=== PATIENT | female | born 1965 | race Caucasian/White ===

== ENCOUNTER 2022-12-12 11:00 | Outpatient (OUT) | payer MEDICARE, MEDICAID, SELFPAY ==
[2022-12-12 12:17] LABS: Chol HDL Ratio 3.3; Cholesterol 150 mg/dL (<=200); Estimated GFR (African America >60 (>=60); Estimated GFR (Non-African Ame >60 (>=60); Glucose 149 mg/dL (74-106); HDL Cholesterol 46 mg/dL (40-60); Thyroid Stimulating Hormone 1.138 uIU/mL (0.358-3.740); Triglycerides 284 mg/dL (<=150); VLDL CHOLESTEROL 56.8 mg/dL
[2022-12-13 04:12] LABS: Lithium (Eskalith(R)), Serum 0.6 mmol/L (0.5-1.2)
== END 2022-12-12 11:01 | disposition home or self-care (01) ==
LOC: LAB 11:05
PROVIDERS: PCP Family Medicine; Visit Provider Psychiatry & Neurology Psychiatry
DX: F31.9 Bipolar disorder, unspecified (principal)
CPT/HCPCS: 36415; 80061; 80178; 82565; 82947; 84443

== ENCOUNTER 2023-02-23 12:43 | Outpatient (OUT) | payer MEDICARE, MEDICAID, SELFPAY ==
--- NOTE | 2023-02-23 12:54 | MM_ITS ---
Patient: NAOMI MANLEY Exam Date: 02/23/2023 : 1965 Gender:F Ordering : DR Alexia Raya M.D. Admission #: [id number] Family : Order #: [id number] CLICK HERE TO VIEW EXAM RADIOLOGY REPORT PROCEDURE: MM TOMOSYNTHESIS DIAGNOSTIC LT, 02/23/2023, 12:59 US BREAST LT LIMITED, 02/23/2023, 13:09 COMPARISON: MG MAMM LT DIAG FU, 08/26/2022. INDICATIONS: Abnormal Mammogram R92.8 Calculator Name NCI Breast Cancer Risk Assessment Tool 5 Year Breast Cancer Risk 1.10% Lifetime Breast Cancer Risk 6.20% Personal Breast Cancer No Personal Ovarian Cancer No Treatments None Family Cancers Mother with stomach cancer at age 55. LOCATION: [facility] BREAST COMPOSITION: Heterogeneously dense,which may obscure small masses. FINDINGS: DIAGNOSTIC CATEGORY 5--HIGHLY SUGGESTIVE OF MALIGNANCY. HIGH PROBABILITY OF MALIGNANCY BASED ON THE FOLLOWING: Again demonstrated is a focal lobular mass measuring 0.9 x 0.5 cm in the lower inner quadrant of the right breast. This lesion appears more contracted than on the prior exam slight decrease in pleomorphic microcalcifications, possibly related to the contraction. Given the interval change in appearance malignancy should be excluded and a left breast stereotactic biopsy is recommended RECOMMENDATIONS: STEREOTACTIC BREAST BIOPSY: LEFT BREAST PLEASE NOTE: A NORMAL MAMMOGRAM DOES NOT EXCLUDE THE POSSIBILITY OF BREAST CANCER. A CLINICALLY SUSPICIOUS PALPABLE LUMP SHOULD BE BIOPSIED. Dictated by: Francis Singh MD on 02/23/2023 at 13:42 Approved by: Francis Singh MD on 02/23/2023 at 13:46
== END 2023-02-23 12:44 | disposition home or self-care (01) ==
LOC: MAMMO 12:44
PROVIDERS: PCP Family Medicine; Visit Provider Family Medicine
DX: N63.14 Unspecified lump in the right breast, lower inner quadrant (principal); R92.8 Other abnormal and inconclusive findings on diagnostic imaging of breast; Z80.0 Family history of malignant neoplasm of digestive organs
CPT/HCPCS: 76642; 77065; G0279

== ENCOUNTER 2023-03-20 12:27 | Day surgery (SDC) | payer MEDICARE, MEDICAID, SELFPAY ==
--- NOTE | 2023-03-20 12:39 | MM_ITS ---
Patient Name: NAOMI MANLEY MR#: [id number] : 1965 Exam Date: 03/20/2023 Ordering Doctor: DR Alexia Raya M.D. RADIOLOGY REPORT PROCEDURE: MM STEREOTACTIC LOC LT COMPARISON: MM TOMOSYNTHESIS DIAGNOSTIC LT, 02/23/2023. MG MAMM LT DIAG FU, 08/26/2022. MG MAMM SCREEN 3D SOLITARIO CAD, 08/01/2022. MG MAMM SOLITARIO DIAG W CAD, 09/26/2018. INDICATIONS: Macrocalcifications DESCRIPTION: Following informed consent, digital stereotactic mammographic views were obtained to localize the lesion. Multiple vacuum-assisted core biopsies were obtained. Specimen images were obtained to confirm proper sampling. The location of the biopsy was then marked as indicated below. FINDINGS: SPECIMEN #, LOCATION: 4 core samples, lower-inner quadrant / 6 o'clock left breast. SPECIMEN IMAGE: Calcifications within cores 1 and 4. BIOPSY NEEDLE: 10 gauge Revolve(r) vacuum core biopsy needle. MARKER(S) PLACED: A single metallic marker was placed in the appropriate targeted location. MEDICATION: Buffered 1% lidocaine superficial;1% lidocaine with epinephrine deep. COMPLICATIONS: None. PATHOLOGY / LAB: Pending. CONCLUSION: 1. Technically successful biopsy of the breast lesion. 2. Pathology results are pending. An addendum will be added when pathology results are final. Dictated by: Orlando Mccormack M.D. on 03/21/2023 at 07:45 Approved by: Orlando Mccormack M.D. on 03/21/2023 at 07:54
[2023-03-20 12:40] VITALS: BP 134/87; PULSE 82; O2SAT 95
--- NOTE | 2023-03-20 12:40 | MM_ITS ---
Patient Name: NAOMI MANLEY MR#: [id number] : 1965 Exam Date: 03/20/2023 Ordering Doctor: DR Alexia aRya M.D. This report includes an Addendum and supersedes previous reports for this exam. RADIOLOGY REPORT PROCEDURE: MM POST BIOPSY LT COMPARISON: MM STEREOTACTIC LOC LT, 03/20/2023. MM TOMOSYNTHESIS DIAGNOSTIC LT, 02/23/2023. MG MAMM LT DIAG FU, 08/26/2022. MG MAMM SCREEN 3D SOLITARIO CAD, 08/01/2022. INDICATIONS: Macrocalcifications BREAST COMPOSITION: Heterogeneously dense,which may obscure small masses. FINDINGS: BIOPSY MARKER: A metallic marker has been placed in the lower left breast approximately 6 o'clock position , but migrated cephalad during extraction, now positioned marked 12 o'clock. A calcification from the targeted location is still present which would aid in localization if needed. BREAST FINDINGS: Expected post biopsy findings. RECOMMENDATIONS: Dictated by: Orlando Mccormack M.D. on 03/20/2023 at 14:39 Approved by: Orlando Mccormack M.D. on 03/20/2023 at 14:41 ADDENDUM: FINDINGS: DIAGNOSTIC CATEGORY 6--KNOWN BIOPSY PROVEN MALIGNANCY: LEFT BREAST RECOMMENDATIONS: SURGICAL CONSULTATION. Final pathologic diagnosis: Invasive ductal carcinoma provisional grade 1; ductal carcinoma in situ; usual ductal hyperplasia with microcalcifications. Findings faxed to the office of Dr. Raya on March 24, 2023. Dictated by: Orlando Mccormack M.D. on 03/29/2023 at 14:12 Approved by: Orlando Mccormack M.D. on 03/29/2023 at 14:13
[2023-03-20] MEDS: LIDOCAINE HCL 10 ML, SODIUM BICARBONATE 1 MEQ INJ (13:20)
--- NOTE | 2023-03-20 14:48 | SUR.PREOP ---
03/03/23 Pt instructed on procedure, date,time, and prep.
== END 2023-03-20 14:00 | disposition home or self-care (01) ==
LOC: MAMMO 12:28
PROVIDERS: Radiology Diagnostic Radiology; PCP Family Medicine; Visit Provider Family Medicine
DX: C50.312 Malignant neoplasm of lower-inner quadrant of left female breast (principal); R92.0 Mammographic microcalcification found on diagnostic imaging of breast
CPT/HCPCS: 19081; 77065; 88305; 88342; 88360

== ENCOUNTER 2023-04-07 09:09 | Outpatient (OUT) | payer MEDICARE, MEDICAID, SELFPAY ==
[2023-04-07 09:48] LABS: BUN Creatinine Ratio 12.8; Calcium 9.4 mg/dL (8.5-10.1); Chloride 107 mmol/L (98-107); Chol HDL Ratio 2.8; Cholesterol 113 mg/dL (<=200); Estimated GFR (African America >60 (>=60); Estimated GFR (Non-African Ame >60 (>=60); Glucose 145 mg/dL (74-106); HDL Cholesterol 40 mg/dL (40-60); Sodium 144 mmol/L (136-145); Triglycerides 230 mg/dL (<=150)
[2023-04-07 10:48] LABS: Estimated Average Glucose 143 mg/dL; Glycohemoglobin A1C 6.6 % (4.5-6.2)
== END 2023-04-07 09:10 | disposition home or self-care (01) ==
LOC: LAB 09:11
PROVIDERS: PCP Family Medicine; Visit Provider Family Medicine
DX: R73.01 Impaired fasting glucose (principal)
CPT/HCPCS: 36415; 80048; 80061; 83036

== ENCOUNTER 2023-06-02 08:22 | Outpatient (OUT) | payer MEDICARE, MEDICAID, SELFPAY ==
--- OUTSIDE RECORDS SUMMARY | 2023-06-02 08:26 | XMS_ITS | CCD ---
Author Name Unknown Address [address] [facility] [address] [place] [address] Organization [facility] Care Team Providers Care Marine Operations Coordinator Name Role Phone MD Alexia Ayala Attending Provider [phone] [address]O ., DR FITCH Admitting Unavailabl e KARASIK ., DR FITCH Attending Unavailabl e KARASIK ., DR FITCH Consulting Unavailabl e AYALA, DR ALEXIA Bryant Primary Care Unavailable NEL, DR ORLANDO Frost Consulting Unavailable KARASIK ., DR FITCH Attending Unavailabl e KARSHEELAK ., DR FITCH Consulting Unavailabl e JAMIE, DR ALEXIA Bryant Primary Care Unavailable KARASIK ., DR FITCH Admitting Unavailabl e NEL, DR ORLANDO Frost Consulting Unavailable KARASIK ., DR FITCH Attending Unavailabl e KARASIK ., DR FITCH Consulting Unavailabl e AYALA, DR ALEXIA Bryant Primary Care Unavailable KARASIK ., DR FITCH Admitting Unavailabl e AYALA, DR ALEXIA Bryant Admitting Unavailable AYALA, DR ALEXIA Bryant Attending Unavailable AYALA, DR ALEXIA Bryant Consulting Unavailable JAMIE, DR ALEXIA Bryant Primary Care Unavailable ANIA BLANCA Attending Unavailable ANIA BLANCA Consulting Unavailable ANIA BLANCA Admitting Unavailable JAMIE, DR ALEXIA Bryant Primary Care Unavailable AYALA, DR ALEXIA Bryant Admitting Unavailable AYALA, DR ALEXIA Bryant Attending Unavailable AYALA, DR ALEXIA rByant Consulting Unavailable JAMIE, DR ALEXIA Bryant Primary Care Unavailable ANIA BLANCA Attending Unavailable ANIA BLANCA Consulting Unavailable ANIA BLANCA Admitting Unavailable JAMIE, DR ALEXIA Bryant Primary Care Unavailable Alexia Ayala Unavailable RAFAEL GARCÍA Attending Unavailable ALEXIA AYALA Unavailable RAFAEL GARCÍA Attending Unavailable DO Rafael García Attending Provider [phone] MD Alexia Ayala Primary Care Provider Alexia Ayala Admitting Unavailable Alexia Ayala Attending Unavailable Rafael García Attending Unavailable Rafael García Admitting Unavailable Alexia Ayala Primary Care Unavailable Gavin Plaza Attending Unavailab Gavin Leyva Admitting Unavailab Rafael Ibarra Attending Unavailable Rafael García Admitting Unavailable Alexia Ayala Primary Care Unavailable Allergies Allergy Classification Reported Allergen(s) Allergy Type Date of Onset Reaction(s) Facility (9 sources) cefdinir Drug Allergy Unknown [facility] Other (15 sources) Penicillin Drug Allergy halucination and swallowing dificulty [facility] Other (2 sources) Penicillins Drug allergy (disorder) 05-08-18 76 Swelling of Lip/Tongue/Thro at [facility] Repository (10 sources) Medicinal cephalosporin and acting as antibacterial agent (FN) Drug allergy Unknown [facility] Other (10 sources) Ceftin *CEPHALOSPORINS* Propensity to adverse reactions Unknown [facility] Other (1 source) Penicillins Drug allergy (disorder) 05-02-20 23 [facility] Repository (1 source) Unable to Assess Drug allergy (disorder) 04-03-20 18 [facility] Repository Medications Current Medications Medication Drug Class(es) Dates Sig (Normalized) Sig (Original) alendronic acid 70 mg oral tablet (1 source) Bisphosphonate Start: 05-02-2023 take 70 mg by mouth every week Alendronate Active 70 MG PO every week May 02, 2023 12:00am monday ascorbic acid 500 mg oral tablet (1 source) Vitamin C Start: 05-02-2023 take 1 tablet by mouth once daily Ascorbic Acid (Vitamin C) (Vitamin C) 500 mg Tablet Active 500 MG PO Daily May 02, 2023 12:00am atorvastatin 40 mg oral tablet (8 sources) HMG-CoA Reductase Inhibitor take 1 tablet by mouth every twenty-four hours Atorvastatin Calcium 40 MG 1 tablet Orally Once a day for 90 days Active take 1 tablet by missy th every twenty-four hours Atorvastatin Calcium 20 MG 1 tablet Oral ly Once a day for 90 days Active azithromycin 250 mg oral tablet (6 sources) Macrolide Antimicrobial Start: 03-10-2023 Azithromycin 250 MG as directed Orally 2 tabs po today, then 1 tab daily x 4 more days for 5 Mar, Active benzonatate 200 mg oral capsule (6 sources) Non-narcotic Antitussive Start: 03-10-2023 take 1 capsule by mouth every eight hours Benzonatate 200 MG 1 capsule Orally Three times a day for 10 day(s) Mar, Active busPIRone hydrochloride 5 mg oral tablet (10 sources) take 1 tablet by mouth every twenty-four hours busPIRone HCl 5 MG 1 tablet once a day Active levothyroxine sodium 0.075 mg oral tablet (16 sources) l-Thyroxine Start: 05-02-2023 take 75 ug by mouth once daily Levothyroxine Active 75 MCG PO Daily May 02, 2023 12:00am take 1 tablet by missy once daily in the morning Levothyroxine Sodium 75 MCG 1 tablet in the morning on an empty stomach Orally Once a day for 90 days Active take 1 tablet by missy once daily in the morning Levothyroxine Sodium 75 MCG 1 tablet in the morning on an empty stomach Orally Once a day for 90 days Active lithium carbonate 450 mg extended release oral tablet (16 sources) Start: 05-02-2023 take 450 mg by mouth once daily in the evening [place] Carbonate Active 450 MG PO Every evening May 02, 2023 12:00am take 1 capsule by mo [facility] once daily at bedtime [place] Carbonate 450 mg 1 capsule Orall y QHS Active [place] Carbonat e 450 mg 2 tablets QHS Active OLANZapine 10 mg oral tablet (20 sources) Atypical Antipsychotic Start: 05-02-2023 take 10 mg by mouth once daily in the evening Olanzapine Active 10 MG PO Every evening May 02, 2023 12:00am take 1 tablet by missy th once daily at bedtime OLANZapine 20 MG 1 tablet Orally QHS Act manish take 1 tablet by missy th every twenty-four hours OLANZapine 10 MG 1 tablet Orally Once a day Active omeprazole 40 mg delayed release oral capsule (16 sources) Proton Pump Inhibitor Start: 05-02-2023 take 40 mg by mouth once daily Omeprazole Active 40 MG PO Daily May 02, 2023 12:00am take 1 capsule by mo uth once daily in the morning Omeprazole 40 MG TAKE 1 CAPSULE BY MOUTH EVERY DAY IN THE MORNING for 90 Active QUEtiapine 200 mg oral tablet (16 sources) Atypical Antipsychotic Start: 05-02-2023 take 200 mg by mouth once daily in the evening Quetiapine Active 200 MG PO Every evening May 02, 2023 12:00am take 1 tablet by missy th every twenty-four hours SEROquel 100 MG 1 tablet at bedtime Orally Once a day Active take 1 tablet by missy th every twenty-four hours SEROquel 25 MG 1 tablet at bedtime Orally Once a day Active rosuvastatin calcium 20 mg oral tablet (8 sources) HMG-CoA Reductase Inhibitor Start: 05-02-2023 take 20 mg by mouth once daily in the evening Rosuvastatin Active 20 MG PO Every evening May 02, 2023 12:00am Start: 02-27-2023 take 1 tablet by missy th every twenty-four hours Crestor 20 MG 1 tablet Orally Once a day for 30 days Feb, Active traZODone hydrochloride 50 mg oral tablet (10 sources) Serotonin Reuptake Inhibitor take 1 tablet by mouth every twenty-four hours traZODone HCl 50 MG 1 tablet once a day Active Completed/Discontinued Medications Medication Drug Class(es) Dates Sig (Normalized) Sig (Original) fenofibrate 200 mg oral capsule (5 sources) Peroxisome Proliferator Receptor alpha Agonist take 1 capsule by mouth every twenty-four hours Fenofibrate 200 MG 1 tablet Orally Once a day Not-Taking Ketorolac (15 sources) Nonsteroidal Anti-inflammatory Drug, Cyclooxygenase Inhibitor Start: 09-04-2016 Toradol per 15 mg Aug, 60 mg levoFLOXacin 500 mg oral tablet (5 sources) Quinolone Antimicrobial take 1 tablet by mouth every twenty-four hours levoFLOXacin 500 MG 1 tablet Orally Once a day Not-Taking metroNIDAZOLE 500 mg oral tablet (5 sources) Nitroimidazole Antimicrobial Start: 06-21-2022 take 1 tablet by mouth every twelve hours metroNIDAZOLE 500 MG 1 tablet Orally Twice a day for 7 day(s) Jun, Not-Taking Problems Active Problems Problem Classification Problem Date Documented Date Episodic/Chronic Administrative/social admission (1 source) Person consulting for explanation of examination or test findings; Translations: [Person consulting for explanation of examination or test findings] Episodic Cancer of breast (5 sources) Infiltrating duct carcinoma of breast; Translations: [Malignant neoplasm of unspecified site of left female breast] Chronic Chronic kidney disease (15 sources) Chronic kidney disease stage 3; Translations: [Chronic kidney disease, stage 3 unspecified] Chronic Chronic obstructive pulmonary disease and bronchiectasis (2 sources) Bronchitis, not specified as acute or chronic Episodic Diabetes mellitus without complication (18 sources) Impaired fasting glycemia; Translations: [Impaired fasting glucose] Onset: 03-08-2018 Episodic Disorders of lipid metabolism (13 sources) Hyperlipidemia, unspecified; Translations: [Pure hyperglyceridemia] Onset: 03-07-2018 Chronic Esophageal disorders (1 source) Gastro-esophageal reflux disease without esophagitis; Translations: [Gastro-esophageal reflux disease without esophagitis] Chronic Genitourinary symptoms and ill-defined conditions (8 sources) Dysuria; Translations: [Finding of frequency of urination] Onset: 04-21-2022 Resolved: 06-04-2019 Episodic Immunizations and screening for infectious disease (2 sources) Encounter for screening for human papillomavirus (HPV); Translations: [Encounter for screening for infections with a predominantly sexual mode of transmission] Onset: 07-19-2022 Episodic Menopausal disorders (18 sources) Atrophy of vagina; Translations: [Postmenopausal atrophic vaginitis] Onset: 03-07-2018 Chronic Mood disorders (5 sources) Bipolar disorder, unspecified; Translations: [BIPOLAR DISORDER UNSPECIFIED] Onset: 03-07-2018 Chronic Other aftercare (14 sources) Long-term current use of drug therapy; Translations: [Other terminal press operator (current) drug therapy] Episodic Other aftercare (3 sources) Other group home (current) drug therapy; Translations: [OTH MOCK UP MAKER 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 THERAPY] Onset: 04-18-2022 Episodic Other bone disease and musculoskeletal deformities (1 source) Other specified disorders of bone density and structure, unspecified site; Translations: [OTH D/O BONE DEN STRUCT UNS SITE] Onset: 08-05-2022 Episodic Other bone disease and musculoskeletal deformities (1 source) Bone density finding; Translations: [Other specified disorders of bone density and structure, unspecified site] Episodic Other circulatory disease (1 source) Elevated blood-pressure reading without diagnosis of hypertension; Translations: [Elevated blood-pressure reading, without diagnosis of hypertension] Episodic Other connective tissue disease (14 sources) Pain of right upper arm; Translations: [Pain in right upper arm] Episodic Other connective tissue disease (2 sources) Pain in right upper arm; Translations: [Pain in right upper arm] Episodic Other connective tissue disease (1 source) Pain in limb; Translations: [Pain in left upper arm] Episodic Other female genital disorders (1 source) Other specified conditions associated with female genital organs and menstrual cycle; Translations: [OTH SPEC COND FE GEN ORG MENST CYCL] Onset: 07-19-2022 Episodic Other female genital disorders (1 source) Other specified noninflammatory disorders of vagina; Translations: [Other specified noninflammatory disorders of vagina] Episodic Other injuries and conditions due to external causes (1 source) History of falling; Translations: [History of falling] Episodic Other nutritional; endocrine; and metabolic disorders (15 sources) Body mass index 25-29 - overweight; Translations: [Body mass index (BMI) 28.0-28.9, adult] Episodic Other nutritional; endocrine; and metabolic disorders (1 source) Body mass index (BMI) 28.0-28.9, adult; Translations: [BMI 28.0-28.9,adult] Episodic Other screening for suspected conditions (not mental disorders or infectious disease) (17 sources) Other abnormal and inconclusive findings on diagnostic imaging of breast; Translations: [Encounter for screening mammogram for malignant neoplasm of breast] Onset: 07-18-2022 Resolved: 06-28-2019 Episodic Other upper respiratory infections (1 source) Chronic sinusitis; Translations: [Chronic sinusitis, unspecified] Chronic Other upper respiratory infections (2 sources) Acute maxillary sinusitis; Translations: [Acute recurrent maxillary sinusitis] Onset: 07-20-2018 Episodic Residual codes; unclassified (1 source) Family history of malignant neoplasm of digestive organs; Translations: [FAM HX MALIG NEOPLASM DIGESTIV ORGN] Onset: 09-01-2022 Episodic Residual codes; unclassified (1 source) Asymptomatic menopausal state; Translations: [ASYMPTOMATIC MENOPAUSAL STATE] Onset: 08-05-2022 Episodic Residual codes; unclassified (1 source) Immunization not carried out because of patient refusal; Translations: [Immunization not carried out because of patient refusal] Episodic Screening and history of mental health and substance abuse codes (1 source) Encounter for screening for depression; Translations: [Encounter for screening for depression] Episodic Thyroid disorders (18 sources) Hypothyroidism; Translations: [Hypothyroidism, unspecified] Chronic Unclassified (1 source) Unspecified lump in the left breast, lower inner quadrant; Translations: [Unspecified lump in the left breast, lower inner quadrant] Onset: 05-16-2023 Unclassified (1 source) Encounter for preprocedural laboratory examination; Translations: [Encounter for preprocedural laboratory examination] Onset: 05-02-2023 Urinary tract infections (1 source) Urinary tract infectious disease; Translations: [Urinary tract infection, site not specified] Episodic Past or Other Problems Problem Classification Problem Date Documented Da te Episodic/Chronic Abdominal pain (1 source) Right upper quadrant pain; Translations: [Right upper quadrant pain] Resolved: 06-28-2019 Episodic Bacterial infection; unspecified site (1 source) Other bacterial infections of unspecified site; Translations: [Other bacterial infections of unspecified site] Resolved: 06-04-2019 Episodic Inflammatory diseases of female pelvic organs (2 sources) Acute vaginitis; Translations: [Acute vaginitis] Onset: 06-18-2014 Resolved: 06-10-2016 Episodic Mycoses (2 sources) Candidiasis of skin and nail; Translations: [Candidiasis] Onset: 06-08-2014 Resolved: 06-10-2016 Episodic Nonmalignant breast conditions (4 sources) Mammographic calcification found on diagnostic imaging of breast; Translations: [Other specified disorders of breast] Onset: 08-05-2022 Resolved: 06-28-2019 Episodic Nonspecific chest pain (1 source) Chest pain, unspecified; Translations: [Chest pain, unspecified] Onset: 03-07-2018 Episodic Other gastrointestinal disorders (1 source) Abdominal distension (gaseous); Translations: [Abdominal distension (gaseous)] Resolved: 06-28-2019 Episodic Other lower respiratory disease (1 source) Shortness of breath; Translations: [Shortness of breath] Onset: 03-07-2018 Episodic Other non-traumatic joint disorders (1 source) Arthralgia of the lower leg; Translations: [Pain in unspecified knee] Onset: 03-07-2018 Episodic Other nutritional; endocrine; and metabolic disorders (1 source) Obesity, unspecified; Translations: [Obesity, unspecified] Resolved: 06-28-2019 Chronic Other nutritional; endocrine; and metabolic disorders (1 source) Body mass index 30+ - obesity; Translations: [Body mass index (BMI) 30.0-30.9, adult] Onset: 06-04-2019 Resolved: 06-28-2019 Chronic Residual codes; unclassified (1 source) Postmenopausal state; Translations: [Asymptomatic menopausal state] Onset: 06-04-2019 Episodic Spondylosis; intervertebral disc disorders; other back problems (1 source) Backache; Translations: [Dorsalgia, unspecified] Onset: 03-07-2018 Episodic Results Test Name Value Interpretation Reference Range Facility [facility] 05-16-2023 L - -------- Specimen: [id number] Received: 05/16/23 Status: WAN Gale Num: [id number] Spec Type: Surgical Subm Dr: Rafael García DO Tissues: A BREAST CORE NO CALCS (LT BREAST TISSUE) Procedures: YUDY/Charli Garcia/Jonh L4 -------- Age/ Patient Sex Location Account Attending Physician -------- Melony Manley 58/F DC [id number] Rafael García DO -------- SPEC NUM: [id number] RECD: 05/16/23 STATUS: WAN REAdia NUM: [id number] MANGO: 05/16/[address] [facility] [address]: Rafael García DO ENTERED: 05/16/23 DR: CARLTON TYPE: Surgical DEPT: S ORDERED: HE/2, Gross/Micro L4 ORDERED: HE/2, Gross/Micro L4 COMMENTS: @ Originally on account #[id number] Req #[id number] Pathological Diagnosis Left breast mass at 6:00 (2 cm from nipple), ultrasound?guided core biops: - Benign breast parenchyma featuring fibrocystic changes (florid, usual ductal hyperplasia) with variably fibrotic stroma. - Focal fibroadenomatoid change. - Small microcalcification located within a benign mammary duct. - No in situ or invasive carcinoma identified. - Note: Foci of atypical ductal hyperplasia or in situ lobular neoplasia are not identified. Clinical Information Left breast mass 6:00, 2 cm from nipple Gross Description Received in formalin labeled with the patient's name, date of and left breast is a 2.4 x 1.5 x 0.3 cm aggregate of cores of fibrofatty breast tissue. Entirely submitted in one cassette labeled A1. Time of excision: 10:30 AM 05/16/2023, time in formalin: 10:35 AM 05/16/2023, time out of -------- Specimen: [id number] Received: 05/16/23 Status: WAN Gale Num: [id number] Spec Type: Surgical Subm Dr: Rafael García DO Tissues: A BREAST CORE NO CALCS (LT BREAST TISSUE) Procedures: Charli GALLARDO/John L4 -------- Patient: Melony Manley [id number] (Continued) -------- Specimen: Received: 05/16/23 (Continued) Gross Description (Continued) Signed (signature on file) Francis Zapata MD 05/17/23 1009 -------- Specimen: S2 Received: 05/16/23 Status: WAN Gale Num: [id number] Spec Type: Surgical Subm Dr: Rafael García DO Tissues: A BREAST CORE NO CALCS (LT BREAST TISSUE) Procedures: Charli GALLARDO/Micro L4 -------- Patient: Melony Manley [id number] (Continued) -------- Specimen: [id number] Received: 05/16/23 (Continued) Gross Description (Continued) formalin: 6 PM 05/16/2023. Cold Ischemia and Fixation Time meets the requirements specified in the latest version of the ASCO/CAP guidelines: Yes. Cold Ischemic Time: 0.08 Formalin Fixation Time: 7.42 Microscopic Description Two H E slides reviewed. The microscopic examination confirms the diagnosis. CPT Codes 35644 -------- -------- Specimen: [id number] Received: 05/16/23 Status: WAN Beasley Num: [id number] Spec Type: Surgical Subm Dr: Rafael García DO Tissues: A BREAST CORE NO CALCS (LT BREAST TISSUE) Procedures: HE/2, Gross/Micro L4 -------- Patient: Melony Manley [id number] (Continued) -------- Signed (signature on file) Francis Zapata MD 05/17/23 1009 [facility] US breast LT limitedon 05-16 [place] [address] Mammography Report Signed with Ronaldo Patient: Melony Manley MR#: [id number] : 1965 Acct:[id number] Age/Sex: 58 / F ADM Date: 04/28/23 Loc: [place] Room: [place] [facility] [place]: Rafael García DO Copies to: DO Alexia Alexandre MD Ordering Provider: Rafael García DO Date of Service: 05/16/23 US/US breast LT limited: ABN. MAMM ([id number]) US/US extremity nonvascular: LEFT AXILLA ([id number]) US/US breast ndl core biopsy LT: ABN. MAMM ([id number]) MM/MM post biopsy LT w/CAD: POST U/S BX WITH CLIP ADDENDUM 1 Addendum for pathology: Ultrasound-guided biopsy 6:00 position 2 cm from the nipple: Focal fibroadenomatoid change. No in situ or invasive carcinoma identified. Finding is benign and concordant with imaging. Surgical/oncologic management of the patient's known cancer is recommended. Impression dictated by: Mateusz Jamison Jr., D.OBeatriz05/18/2023 9:20 AM Dictation Location: [place] [address] Addendum Dictated By: Mateusz Jamison Jr DO Addendum Signed By: 05/18/23919 Addendum Cosigned By: DD/ /31/918 TD/TT: 05/18/2303/31/920 ULTRASOUND GUIDED VACUUM-ASSISTED HOLOGIC ATEC SYSTEM CORE BIOPSIES OF THE LEFT BREAST: CLINICAL DATA: History of stereotactically biopsied breast cancer within the left breast. PROCEDURE: The patient was initially scheduled for a radioactive seed placement. The patient's outside images from [facility] were reviewed and discussed with the referring surgeon. After discussion with the referring surgeon, the radioactive seed placement was postponed and ultrasound-guided biopsy of a mass at the 6:00 position of the left breast approximately 2 cm from the nipple was performed. The patient and her daughter were informed of the change in procedure. The risks, benefits and alternatives to an ultrasound guided vacuum-assisted Hologic ATEC system core biopsy procedure were discussed with the patient and written informed consent was obtained. Ultrasonographic survey of the 6:00 position of the left breast 2 cm from the nipple was performed by geospatial technologist . The previously identified mass was localized with additional adjacent irregular masslike areas also noted. Additional scanning of the left axilla demonstrated no suspicious lymph nodes. The patient's overlying skin was anesthetized with 1% lidocaine. The deeper soft tissues up to and around the mass were anesthetized with lidocaine mixed with epinephrine. Following this, multiple core biopsies of the left breast mass were performed using a 12-gauge [employer] vacuum-assisted core biopsy needle under ultrasound guidance. Multiple core biopsy specimens were obtained. A metallic post biopsy marker was then placed. Post procedure mammograms were performed. The patient tolerated the procedure well with a small hematoma identified at the biopsy site POSTPROCEDURE MAMMOGRAMS: Craniocaudal, MLO and true lateral views of the left breast were performed using low dose digital technique. The postbiopsy marker is seen at the biopsy site without evidence of migration. MM/MM post biopsy LT w/CAD IMPRESSION: STATUS POST ULTRASOUND GUIDED VACUUM-ASSISTED CORE BIOPSIES OF THE LEFT BREAST. RESULT CODE: NL Impression dictated by: Mateusz Jamison Jr., D.OBeatriz05/16/2023 12:03 PM Dictation Location: [facility] Transcribed By: [facility] 05/16/23 1203 Dictated By: Mateusz Jamison Jr, DO 05/16/23 1046 Signed By: 05/16/23 1203 Normal [facility] Basic Metabolic Panelon 12-2 Anion gap [Moles/Vol] 13.2 mmol/L Normal 6.0-15.0 [facility] Comment on above: Performed By: #### C BC, BMP #### [address] Calcium [Mass/Vol] 9.8 mg/dL Normal 8.6-10.3 [facility] Comment on above: Result Comment: PERF ORMED BY: [place] [address] PATHOLOGIST MANAGER HOTEL HUI NORTH M.D. Performed By: #### C BC, BMP #### [address] Chloride [Moles/Vol] 107 mmol/L Normal 98-107 [facility] Comment on above: Performed By: #### C BC, BMP #### [place] [address] [place] CO2 [Moles/Vol] 26.0 mmol/L Normal 21.0-31.0 [facility] Comment on above: Performed By: #### C BC, BMP #### [place] [address] [place] Creatinine [Mass/Vol] 0.93 mg/dL Normal 0.60-1.20 [facility] Comment on above: Performed By: #### C BC, BMP #### [place] [id number] [place] GFR/1.73 sq M.predicted MDRD (S/P/Bld) [Vol rate/Area] mL/min/{1.73_m2} Normal [facility] Comment on above: Performed By: #### C BC, BMP #### [facility] [address] Glucose [Mass/Vol] 147 mg/dL High 70-100 [facility] Comment on above: Result Comment: [place] Glucose Reference Range is dependent on time and content of last meal. Glucose of more than 200 mg/dL in a nonstressed, ambulatory subject supports the diagnosis of Diabetes Mellitus. ADA recommended reference range Performed By: #### C BC, BMP #### [facility] [address] Potassium [Moles/Vol] 4.2 mmol/L Normal 3.5-5.1 [facility] Comment on above: Performed By: #### C BC, BMP #### [facility] [address] Sodium [Moles/Vol] 142 mmol/L Normal 136-145 [facility] Comment on above: Performed By: #### C BC, BMP #### [facility] [address] Urea nitrogen [Mass/Vol] 12 mg/dL Normal 7-25 [facility] Comment on above: Performed By: #### C BC, BMP #### [facility] [address] [place] [address] [place] Basophils Auto (Bld) [#/Vol] Ordered By: Rafael García on 05-02-2023 Basophils (Bld) [#/Vol] 0.0 10*3/uL 0.0-0.2 [facility] Basophils/100 WBC Auto (Bld) Ordered By: Rafael García on 05-02-2023 Basophils/100 WBC (Bld) 0.5 % . [facility] Calcium [Mass/volume] in Ser um or PlasmaOrdered By: Rafael García on 05-02-2023 Calcium [Mass/Vol] 9.8 mg/dL 8.6-10.3 [facility] Carbon dioxide, total [Moles /volume] in Serum or PlasmaOrdered By: Rafael García on 05-02-2023 CO2 [Moles/Vol] 26.0 mmol/L 21.0-31.0 [facility] Chloride [Moles/volume] in S cristi or PlasmaOrdered By: Rafael García on 05-02-2023 Chloride [Moles/Vol] 107 mmol/L 98-107 [facility] Complete Blood Count Auto Di ffon 05-02-2023 Basophils (Bld) [#/Vol] 0.0 10*3/uL Normal 0.0-0.2 [facility] Comment on above: Result Comment: PERF ORMED BY: [place] [address] PATHOLOGIST MANAGER HOTEL HUI NORTH M.D. Performed By: #### C BC, BMP #### [address] Basophils/100 WBC (Bld) 0.5 % Normal . [facility] Comment on above: Performed By: #### C BC, BMP #### [address] Eosinophils (Bld) [#/Vol] 0.0 10*3/uL Normal 0.0-0.45 [facility] Comment on above: Performed By: #### C BC, BMP #### [address] Eosinophils/100 WBC (Bld) 0.0 % Normal . [facility] Comment on above: Performed By: #### C BC, BMP #### [address] Erythrocyte distribution width (RBC) [Ratio] 14.0 % Normal 11.9-15.3 [facility] Comment on above: Performed By: #### C BC, BMP #### [address] Hematocrit (Bld) [Volume fraction] 38.9 % Normal 34.0-46.4 [facility] Comment on above: Performed By: #### C BC, BMP #### [facility] [address] Hemoglobin (Bld) [Mass/Vol] 12.9 g/dL Normal 11.8-15.4 [facility] Comment on above: Performed By: #### C BC, BMP #### [facility] [address] Lymphocytes (Bld) [#/Vol] 1.2 10*3/uL Normal 1.00-4.8 [facility] Comment on above: Performed By: #### C BC, BMP #### [facility] [address] Lymphocytes/100 WBC (Bld) 21.5 % Normal . [facility] Comment on above: Performed By: #### C BC, BMP #### [address] MCH (RBC) [Entitic mass] 28.4 pg Normal 24.7-34.3 [facility] Comment on above: Performed By: #### C BC, BMP #### [facility] [address] MCV (RBC) [Entitic vol] 85.8 fL Normal 80-100 [facility] Comment on above: Performed By: #### C BC, BMP #### [facility] [address] Mean Corpuscular HGB Conc 33.1 g/dL Normal 32.0-35.0 [facility] Comment on above: Performed By: #### C BC, BMP #### [facility] [address] [place] [address] [place] Monocytes (Bld) [#/Vol] 0.4 10*3/uL Normal 0.0-0.8 [facility] Comment on above: Performed By: #### C BC, BMP #### [facility] [address] [place] [address] [place] Monocytes/100 WBC (Bld) 6.5 % Normal . [facility] Comment on above: Performed By: #### C BC, BMP #### [facility] [address] [place] [address] [place] Neutrophils (Bld) [#/Vol] 4.0 10*3/uL Normal 1.8-7.7 [facility] Comment on above: Performed By: #### C BC, BMP #### [facility] [address] [place] [id number] [place] Neutrophils/100 WBC (Bld) 71.5 % Normal . [facility] Comment on above: Performed By: #### C BC, BMP #### [facility] [address] [place] [address] [place] NRBC% 0.0 /100{WBC} Normal 0-0.5 [facility] Comment on above: Performed By: #### C BC, BMP #### [facility] [address] [place] [address] [place] Platelet mean volume (Bld) [Entitic vol] 7.9 fL Normal 6.3-10.7 [facility] Comment on above: Performed By: #### C BC, BMP #### [facility] [address] [place] [address] [place] Platelets (Bld) [#/Vol] 146 10*3/uL Low 150-450 [facility] Comment on above: Performed By: #### C BC, BMP #### [facility] [address] [place] [address] [place] RBC (Bld) [#/Vol] 4.53 10*6/uL Normal 3.60-5.00 [facility] Comment on above: Performed By: #### C BC, BMP #### [facility] [address] [place] [address] [place] WBC (Bld) [#/Vol] 5.7 10*3/uL Normal 3.8-11.6 [facility] Comment on above: Performed By: #### C BC, BMP #### [facility] [address] [place] [address] [place] Creatinine [Mass/volume] in Serum or PlasmaOrdered By: Rafael García on 05-02-2023 Creatinine [Mass/Vol] 0.93 mg/dL 0.60-1.20 [facility] ECG 12 lead ECGon 05-02-[address]23 [address] [facility] Main [address] [address] Electrocardiograph Report Signed Patient: Melony Manley MR#: [id number] : 1965 Acct:[id number] Age/Sex: 58 / F ADM Date: 05/02/23 Loc: PS Room: Type: [facility] CLI Attending Dr: Rafael García DO Ordering Provider: Rafael García DO Date of Service: 05/02/23 ECG/ECG 12 lead ECG: surgery 05/16/2023 Copies to: Test Reason : Blood Pressure : / mmHG Vent. Rate : 075 BPM Atrial Rate : 075 BPM P-R Int : 126 ms QRS Dur : 088 ms QT Int : 402 ms P-R-T Axes : 006 022 036 degrees QTc Int : 448 ms Normal sinus rhythm Normal ECG No previous ECGs available Confirmed by MARYBETH VILLARREAL DO ([id number]) on 05/03/2023 9:46:45 AM Referred By: RAQUEL Electronically Signed By:MARYBETH VILLARREAL DO Transcribed By: MUS Signed By Marybeth Villarreal DO 05/03 0946 Normal [facility] Eosinophils Auto (Bld) [#/Vo l]Ordered By: Rafael García on 05-02-2023 Eosinophils (Bld) [#/Vol] 0.0 10*3/uL 0.0-0.45 [facility] Eosinophils/100 WBC Auto (Bl d)Ordered By: Rafael García on 05-02-2023 Eosinophils/100 WBC (Bld) 0.0 % . [facility] Erythrocyte distribution wid th Auto (RBC) [Ratio]Ordered By: Rafael García on 05-02-2023 Erythrocyte distribution width (RBC) [Ratio] 14.0 % 11.9-15.3 [facility] Glucose [Mass/volume] in Ser um or PlasmaOrdered By: Rafael García on 05-02-2023 Glucose [Mass/Vol] 147 mg/dL 70-100 [facility] Comment on above: ADA recommended refe rence rangeRandom Glucose Reference Range is dependent on time and content of last meal. Glucose of more than 200 mg/dL in a nonstressed, ambulatory subject supports the diagnosis of Diabetes Mellitus. Hematocrit Auto (Bld) [Volum e fraction]Ordered By: Rafael García on 05-02-2023 Hematocrit (Bld) [Volume fraction] 38.9 % 34.0-46.4 [facility] Hemoglobin [Mass/volume] in BloodOrdered By: Rafael García on 05-02-2023 Hemoglobin (Bld) [Mass/Vol] 12.9 g/dL 11.8-15.4 [facility] Leukocytes [#/volume] correc cori for nucleated erythrocytes in Blood by Automated counOrdered By: Rafael García on 05-02-2023 WBC corrected for nucl RBC Auto (Bld) [#/Vol] 5.7 10*3/uL 3.8-11.6 [facility] Lymphocytes Auto (Bld) [#/Vo l]Ordered By: Rafael García on 05-02-2023 Lymphocytes (Bld) [#/Vol] 1.2 10*3/uL 1.00-4.8 [facility] Lymphocytes/100 WBC Auto (Bl d)Ordered By: Rafael García on 05-02-2023 Lymphocytes/100 WBC (Bld) 21.5 % . [facility] MCH Auto (RBC) [Entitic mass ]Ordered By: Rafael García on 05-02-2023 MCH (RBC) [Entitic mass] 28.4 pg 24.7-34.3 [facility] MCHC Auto (RBC) [Mass/Vol]Or dered By: Rafael García on 05-02-2023 MCHC (RBC) [Mass/Vol] 33.1 g/dL 32.0-35.0 [facility] MCV Auto (RBC) [Entitic vol] Ordered By: Rafael García on 05-02-2023 MCV (RBC) [Entitic vol] 85.8 fL 80-100 [facility] Monocytes Auto (Bld) [#/Vol] Ordered By: Rafael García on 05-02-2023 Monocytes (Bld) [#/Vol] 0.4 10*3/uL 0.0-0.8 [facility] Monocytes/100 WBC Auto (Bld) Ordered By: Rafael García on 05-02-2023 Monocytes/100 WBC (Bld) 6.5 % . [facility] Neutrophils Auto (Bld) [#/Vo l]Ordered By: Rafael García on 05-02-2023 Neutrophils (Bld) [#/Vol] 4.0 10*3/uL 1.8-7.7 [facility] Neutrophils/100 WBC Auto (Bl d)Ordered By: Rafael García on 05-02-2023 Neutrophils/100 WBC (Bld) 71.5 % . [facility] No Panel InformationOrdered By: Rafael García on 05-02-2023 Estimated GFR (CKD-EPI) > 60.0 mL/Min [facility] Creatinine Clearance (Chem N/A [facility] Nucleated erythrocytes [Pres ence] in Blood by Automated countOrdered By: Rafael García on 05-02-2023 Nucleated RBC Auto Ql (Bld) 0.0 /100{WBC} 0-0.5 [facility] Platelet mean volume Auto (B ld) [Entitic vol]Ordered By: Rafael García on 05-02-2023 Platelet mean volume (Bld) [Entitic vol] 7.9 fL 6.3-10.7 [facility] Platelets Auto (Bld) [#/Vol] Ordered By: Rafael García on 05-02-2023 Platelets (Bld) [#/Vol] 146 10*3/uL 150-450 [facility] Potassium [Moles/volume] in Serum or PlasmaOrdered By: Rafael García on 05-02-2023 Potassium [Moles/Vol] 4.2 mmol/L 3.5-5.1 [facility] RBC Auto (Bld) [#/Vol]Ordere d By: Rafael García on 05-02-2023 RBC (Bld) [#/Vol] 4.53 10*6/uL 3.60-5.00 [facility] Serum or plasma anion gap de terminationOrdered By: Rafael García on 05-02-2023 Anion gap [Moles/Vol] 13.2 mmol/L 6.0-15.0 [facility] Sodium [Moles/volume] in Ser um or PlasmaOrdered By: Rafael García on 05-02-2023 Sodium [Moles/Vol] 142 mmol/L 136-145 [facility] Urea nitrogen [Mass/volume] in Serum or PlasmaOrdered By: Rafael García on 05-02-2023 Urea nitrogen [Mass/Vol] 12 mg/dL 7-25 [facility] WBC Auto (Bld) [#/Vol]Ordere d By: Rafael García on 05-02-2023 WBC (Bld) [#/Vol] 5.7 10*3/uL 3.8-11.6 [facility] MG MAMM LT DIAG FUon 08-26- 023 MG MAMM LT DIAG FU Patient: MELONY MANLEY Exam Date: 08/26/2022 : 1965 Gender:F Ordering : DR LITTLE STAFFORD . Admission #: [id number] Family : Order #: [id number] CLICK HERE TO VIEW EXAM RADIOLOGY REPORT PROCEDURE: MAMMOGRAM LEFT DIAGNOSTIC DIGITAL FOLLOW UP, 08/26/2022, 13:41 ULTRASOUND BREAST LEFT LIMITED, 08/26/2022, 14:06 COMPARISON: MG MAMM SCREEN 3D SOLITARIO CAD, 08/01/2022. INDICATIONS: Abnormal findings on diagnostic imaging of breast Calculator Name NCI Breast Cancer Risk Assessment Tool 5 Year Breast Cancer Risk 1.10% Lifetime Breast Cancer Risk 6.30% Personal Breast Cancer No Personal Ovarian Cancer No Treatments None Family Cancers Mother with stomach cancer at age 55. LOCATION: [facility] BREAST COMPOSITION: Heterogeneously dense,which may obscure small masses. FINDINGS: DIAGNOSTIC CATEGORY 4--SUSPICIOUS FOR MALIGNANCY. FINDING DOES NOT EXHIBIT CLASSIC FINDINGS OF BREAST CANCER: LEFT BREAST: Spot magnification views demonstrate suspicious cluster of calcifications and likely soft tissue nodule within the posterior lower breast approximately 6 o'clock. Ultrasound evaluation demonstrates questionable 7 x 6 x 3 mm lesion at the 6 o'clock position, 2.5 cm from the nipple. Stereotactic guided biopsy is recommended since the calcifications are better seen via mammography. The findings, recommendations, and alternatives were discussed with the patient. The patient does not wish to undergo biopsy at this time but prefers six-month follow-up mammography. RECOMMENDATIONS: STEREOTACTIC BREAST BIOPSY: LEFT BREAST PLEASE NOTE: A NORMAL MAMMOGRAM DOES NOT EXCLUDE THE POSSIBILITY OF BREAST CANCER. A CLINICALLY SUSPICIOUS PALPABLE LUMP SHOULD BE BIOPSIED. Dictated by: Orlando Mccormack M.D. on 08/26/2022 at 14:23 Approved by: Orlando Mccormack M.D. on 08/26/2022 at 14:39 Normal [facility] US BREAST LEFT LIMITEDon US BREAST LEFT LIMITED Patient: MELONY MANLEY Exam Date: 08/26/2022 : 1965 Gender:F Ordering : DR LITTLE STAFFORD . Admission #: [id number] Family : Order #: [id number] CLICK HERE TO VIEW EXAM RADIOLOGY REPORT PROCEDURE: MAMMOGRAM LEFT DIAGNOSTIC DIGITAL FOLLOW UP, 08/26/2022, 13:41 ULTRASOUND BREAST LEFT LIMITED, 08/26/2022, 14:06 COMPARISON: MG MAMM SCREEN 3D SOLITARIO CAD, 08/01/2022. INDICATIONS: Abnormal findings on diagnostic imaging of breast Calculator Name NCI Breast Cancer Risk Assessment Tool 5 Year Breast Cancer Risk 1.10% Lifetime Breast Cancer Risk 6.30% Personal Breast Cancer No Personal Ovarian Cancer No Treatments None Family Cancers Mother with stomach cancer at age 55. LOCATION: [facility] BREAST COMPOSITION: Heterogeneously dense,which may obscure small masses. FINDINGS: DIAGNOSTIC CATEGORY 4--SUSPICIOUS FOR MALIGNANCY. FINDING DOES NOT EXHIBIT CLASSIC FINDINGS OF BREAST CANCER: LEFT BREAST: Spot magnification views demonstrate suspicious cluster of calcifications and likely soft tissue nodule within the posterior lower breast approximately 6 o'clock. Ultrasound evaluation demonstrates questionable 7 x 6 x 3 mm lesion at the 6 o'clock position, 2.5 cm from the nipple. Stereotactic guided biopsy is recommended since the calcifications are better seen via mammography. The findings, recommendations, and alternatives were discussed with the patient. The patient does not wish to undergo biopsy at this time but prefers six-month follow-up mammography. RECOMMENDATIONS: STEREOTACTIC BREAST BIOPSY: LEFT BREAST PLEASE NOTE: A NORMAL MAMMOGRAM DOES NOT EXCLUDE THE POSSIBILITY OF BREAST CANCER. A CLINICALLY SUSPICIOUS PALPABLE LUMP SHOULD BE BIOPSIED. Dictated by: Orlando Mccormack M.D. on 08/26/2022 at 14:23 Approved by: Orlando Mccormack M.D. on 08/26/2022 at 14:39 Normal [facility] MG MAMM SCREEN 3D SOLITARIO CADon 08-01-2022 MG MAMM SCREEN 3D SOLITARIO CAD Patient: MELONY MANLEY Exam Date: 08/01/2022 : 1965 Gender:F Ordering : DR LITTLE STAFFORD . Admission #: [id number] Family : Order #: [id number] CLICK HERE TO VIEW EXAM RADIOLOGY REPORT PROCEDURE: MAMMOGRAM SCREENING 3D BILATERAL CAD COMPARISON: MG MAMM SOLITARIO DIAG W CAD, 09/26/2018. MG MAMM SOLITARIO DIAG FU, 01/31/2018. MG MAMM SCREEN SOLITARIO W CAD, 05/16/2016. INDICATIONS: Screening mammography Calculator Name NCI Breast Cancer Risk Assessment Tool 5 Year Breast Cancer Risk 1.10% Lifetime Breast Cancer Risk 6.30% Personal Breast Cancer No Personal Ovarian Cancer No Treatments None Family Cancers Mother with stomach cancer at age 55. LOCATION: [facility] BREAST COMPOSITION: Heterogeneously dense,which may obscure small masses. FINDINGS: DIAGNOSTIC CATEGORY 0--INCOMPLETE: NEED ADDITIONAL IMAGING EVALUATION. RIGHT BREAST: No significant suspicious finding. No significant change has occurred. LEFT BREAST: Small cluster of punctate calcifications within posterior upper inner quadrant. Spot magnification views and ultrasound evaluation recommended. RECOMMENDATIONS: ADDITIONAL MAMMOGRAPHIC VIEWS REQUIRED: LEFT BREAST - LEFT CRANIOCAUDAL SPOT MAGNIFICATION VIEW - LEFT OBLIQUE SPOT MAGNIFICATION VIEW - ULTRASOUND: LEFT BREAST PLEASE NOTE: A NORMAL MAMMOGRAM DOES NOT EXCLUDE THE POSSIBILITY OF BREAST CANCER. A CLINICALLY SUSPICIOUS PALPABLE LUMP SHOULD BE BIOPSIED. Dictated by: Orlando Mccormack M.D. on 08/01/2022 at 12:20 Approved by: Orlando Mccormack M.D. on 08/01/2022 at 12:26 Normal [facility] XR DEXA BONE DENSITYon 08-01 XR DEXA BONE DENSITY EXAMINATION: XR DEX A BONE DENSITY, 08/01/2022 10:48 AM EDT HISTORY: Menopause present COMPARISON: DEXA bone densitometry 06/25/2019 TECHNIQUE: Dual-energy X-ray absorptiometry (DEXA) bone density study performed for the axial skeleton. FINDINGS: FOREARM ANALYSIS: Average bone mineral density is 0.671 g/cm2. T-score (standard deviation relative to young adult mean): -0.6 . -1.5% change since prior study. HIP ANALYSIS: Lowest bone mineral density is within the right femoral neck, 0.819 g/cm2. T-score (standard deviation relative to young adult mean): -1.6 . +0.7% change since prior study. IMPRESSION: World Nitin Organization Classification: Osteopenia - Moderate Fracture Risk Electronically authenticated by: ORLANDO MCCORMACK Date: 2022-08-01 11:39 Normal [facility] PAP ACOG PANEL 2: 30 to 65on 07-26-2022 . . Normal [facility] Comment on above: Result Comment: Perf ormed at: WB Performed By: #### [id number] #### [facility] [address] [place] [address] Dr. Devon Gillette Age Gdln ACOG Testing 30-65 Normal [facility] Comment on above: Performed By: #### [id number] #### [facility] [address] [place] [address] [address] Devon Gillette DIAGNOSIS: Comment Normal [facility] Comment on above: Result Comment: NEGA TIVE FOR INTRAEPITHELIAL LESION OR MALIGNANCY. Performed at: WB Performed By: #### [id number] #### [facility] [address] [address] [address] Devon Gillette HPV Aptima Negative Normal Negative [facility] Comment on above: Result Comment: This nucleic acid amplification test detects fourteen high-risk HPV types (16,18,31,33,35,39,45,51,52,56,58,59,66,68) without differentiation. Performed at: =G Performed By: #### [id number] #### [facility] [address] [place] [address] Dr. Devon Gillette HPV Genotype Reflex Comment Normal [facility] Comment on above: Result Comment: Crit eria not met, HPV Genotype not performed. Performed at: WB Performed By: #### [id number] #### [facility] [address] [place] [address] Dr. Devon Gillette Methodology: Comment Normal [facility] Comment on above: Result Comment: This liquid based ThinPrep(R) pap test was screened with the use of an image guided system. Performed at: WB Performed By: #### [id number] #### [facility] [address] [place] [address] Dr. Devon Gillette Note: Comment Normal [facility] Comment on above: Result Comment: The Pap smear is a screening test designed to aid in the detection of premalignant and malignant conditions of the uterine cervix. It is not a diagnostic procedure and should not be used as the sole means of detecting cervical cancer. Both false-positive and false-negative reports do occur. . Performed at: WB Performed By: #### [id number] #### [facility] [address] [place] [address] Dr. Devon Gillette Performed by: Comment Normal [facility] Comment on above: Result Comment: Anjelica Girard, Track Worker (ASCP) Performed at: WB Performed By: #### [id number] #### [facility] [address] [place] [address] Dr. Devon Gillette Specimen adequacy: Comment Normal [facility] Comment on above: Result Comment: Sati sfactory for evaluation. Endocervical and/or squamous metaplastic cells (endocervical component) are present. Performed at: WB Performed By: #### [id number] #### [facility] [address] [place] [address] Dr. Devon Gillette VAGINITIS/VAGINOSIS DNA PROB Jim 07-20-2022 Anni species Negative Normal Negative [facility] Comment on above: Performed By: #### V AGINT #### [facility] [address] [place] [address] Dr. Devon Gillette Gardnerella vaginalis Positive Abnormal Negative [facility] Comment on above: Performed By: #### V AGINT #### [facility] [address] [place] [address] Dr. Devon Gillette Trichomonas vaginalis Negative Normal Negative [facility] Comment on above: Performed By: #### V AGINT #### [facility] [address] [place] [address] Dr. Devon Gillette CULTURE URINEon 04-21-2022 CULTURE URINE Culture Observations : LIGHT GROWTH OF MIXED GENITAL LAZARO. NO POTENTIAL PATHOGENS SEEN. Normal [facility] Comment on above: Performed By: #### G FRANKIE, TSH, LIPID, CREA #### [facility] [address] [place] [address] Dr. Devon Gillette LITHIUMon 04-15-2022 [place] (Eskalith(R)), Serum 0.6 mmol/L Normal 0.5-1.2 [facility] Comment on above: Result Comment: A co ncentration of 0.5-0.8 mmol/L is advised for long-term use; concentrations of up to 1.2 mmol/L may be necessary during acute treatment. Detection Limit = 0.1 <0.1 indicates None Detected Performed By: #### G FRANKIE, TSH, LIPID, CREA #### [facility] [address] [place] [address] Dr. Devon Gillette CREATININEon 04-14-2022 Creatinine [Mass/Vol] 0.89 mg/dL Normal 0.55-1.02 [facility] Comment on above: Performed By: #### G FRANKIE, TSH, LIPID, CREA #### [facility] [address] [place] [address] Dr. Devon Gillette EGFR-AF TUNISIAN >60 Normal >=60 [facility] Comment on above: Performed By: #### G FARNKIE, TSH, LIPID, CREA #### [facility] [address] [place] [address] Dr. Devon Gillette EGFR-NON AF TUNISIAN >60 Normal >=60 [facility] Comment on above: Performed By: #### G FRANKIE, TSH, LIPID, CREA #### [facility] [address] [address] [address] Devno Gillette GLUCOSE BLOODon 04-14-2022 Glucose [Mass/Vol] 118 mg/dL Critically high 74-106 T [facility] Comment on above: Performed By: #### G FRANKIE, TSH, LIPID, CREA #### [facility] [address] [address] [address] Devon Gillette LIPID PROFILEon 04-14-2022 CHOL-HDL RATIO NORM SEE BELOW Normal [facility] Comment on above: Result Comment: 3.3 - 4.4 LOW RISK 4.4 - 7.1 AVERAGE RISK 7.1 - 11.0 MODERATE RISK >11.0 HIGH RISK Performed By: #### G FRANKIE, TSH, LIPID, CREA #### [facility] [address] [address] [address] Devon Gillette Cholesterol [Mass/Vol] 128 mg/dL Normal <=200 [facility] Comment on above: Performed By: #### G FRANKIE, TSH, LIPID, CREA #### [facility] [address] [address] [address] Devon Gillette Cholesterol in HDL [Mass/Vol] 47 mg/dL Normal 40-60 [facility] Comment on above: Performed By: #### G FRANKIE, TSH, LIPID, CREA #### [facility] [address] [address] [address] Devon Gillette Cholesterol in LDL [Mass/Vol] 34.6 mg/dL Normal [facility] Comment on above: Performed By: #### G FRANKIE, TSH, LIPID, CREA #### [facility] [address] [address] [address] Devon Gillette Cholesterol.total/Choles terol in HDL [Mass ratio] 2.7 {ratio} Normal [facility] Comment on above: Performed By: #### G FRANKIE, TSH, LIPID, CREA #### [facility] [address] [address] [address] Devon Gillette HDL NORMAL > or = 60 mg/dl - LO W CARDIOVASCULAR RISK <40 mg/dl - HIGH CARDIOVASCULAR RISK Normal [facility] Comment on above: Performed By: #### G FRANKIE, TSH, LIPID, CREA #### [facility] [address] [address] [address] Devon Gillette LDL CALC NORMAL SEE BELOW Normal [facility] Comment on above: Result Comment: <100 mg/dl OPTIMAL 100 - 129 mg/dl NEAR OR ABOVE OPTIMAL 130 - 159 mg/dl BORDERLINE HIGH 160 - 189 mg/dl HIGH >190 mg/dl VERY HIGH Performed By: #### G FRANKIE, TSH, LIPID, CREA #### [facility] [address] [address] [address] Devon Gillette Triglyceride [Mass/Vol] 232 mg/dL Critically high <=150 [facility] Comment on above: Performed By: #### G FRANKIE, TSH, LIPID, CREA #### [facility] [address] [address] [address] Devon Gillette VLDL CALC 46.4 mg/dL Normal [facility] Comment on above: Performed By: #### G FRANKIE, TSH, LIPID, CREA #### [facility] [address] [address] [address] Devon Gillette TSHon 04-14-2022 TSH 0.375 uIU/mL Normal 0.358-3.740 [facility] Comment on above: Performed By: #### G FRANKIE, TSH, LIPID, CREA #### [facility] [address] [place] [address] Dr. Devon Gillette CULTURE URINEon 03-30-2022 CULTURE URINE Isolate 1 Proteus mirabilis 15,000 cfu/mL of ORGANISM 1 Proteus mirabilis ANTIBIOTIC M.I.C RX STATUS Ampicillin <=2 S F Ampicillin/Sulbactam <=2 S F Piperacillin/Tazobact am <=4 S F Cefazolin <=4 S F Ceftazidime <=1 S F Ceftriaxone <=1 S F Ertapenem <=0.5 S F Imipenem 2 S F Amikacin <=2 S F Gentamicin <=1 S F Tobramycin <=1 S F Ciprofloxacin <=0.25 S F Levofloxacin <=0.12 S F Nitrofurantoin 128 R F Trimethoprim/Sulfamet hoxazole <=20 S F Normal [facility] Comment on above: Performed By: #### U RCX #### [facility] [address] [address] [address] Devon Gillette LITHIUMon 12-28-2021 [place] (Eskalith(R)), Serum 0.7 mmol/L Normal 0.5-1.2 [facility] Comment on above: Result Comment: Plas ma concentration of 0.5 - 0.8 mmol/L are advised for long-term use; concentrations of up to 1.2 mmol/L may be necessary during acute treatment. Detection Limit = 0.1 <0.1 indicates None Detected Performed By: #### G FRANKIE, TSH, LIPID, CREA #### [facility] [address] [address] [address] Devon Gillette CREATININEon 12-27-2021 Creatinine [Mass/Vol] 1.10 mg/dL Critically high 0.55-1.02 [facility] Comment on above: Performed By: #### G FRANKIE, TSH, LIPID, CREA #### [facility] [address] [address] [address] Devon Gillette EGFR-AF TUNISIAN >60 Normal >=60 [facility] Comment on above: Performed By: #### G FRANKIE, TSH, LIPID, CREA #### [facility] [address] [address] [address] Devon Gillette EGFR-NON AF TUNISIAN 51 mL/min/1.73m2 Critically low >=60 [facility] Comment on above: Performed By: #### G FRANKIE, TSH, LIPID, CREA #### [facility] [address] [address] [address] Devon Gillette DIRECT LDLon 12-27-2021 Cholesterol in LDL [Mass/Vol] 133 mg/dL Normal [facility] Comment on above: Performed By: #### G FRANKIE, TSH, LIPID, CREA #### [facility] [address] [address] [address] Devon Gillette DLDL NORMAL SEE BELOW Normal [facility] Comment on above: Result Comment: <100 mg/dl OPTIMAL 100 - 129 mg/dl NEAR OR ABOVE OPTIMAL 130 - 159 mg/dl BORDERLINE HIGH 160 - 189 mg/dl HIGH >190 mg/dl VERY HIGH Performed By: #### G FRANKIE, TSH, LIPID, CREA #### [facility] [address] [address] [address] Devon Gillette GLUCOSE BLOODon 12-27-2021 Glucose [Mass/Vol] 151 mg/dL Critically high 74-106 [facility] Comment on above: Performed By: #### G FRANKIE, TSH, LIPID, CREA #### [facility] [address] [address] [address] Devon Gillette LIPID PROFILEon 12-27-2021 CHOL-HDL RATIO NORM SEE BELOW Normal [facility] Comment on above: Result Comment: 3.3 - 4.4 LOW RISK 4.4 - 7.1 AVERAGE RISK 7.1 - 11.0 MODERATE RISK >11.0 HIGH RISK Performed By: #### G FRANKIE, TSH, LIPID, CREA #### [facility] [address] [address] [address] Devon Gillette Cholesterol [Mass/Vol] 244 mg/dL Critically high <=200 [facility] Comment on above: Performed By: #### G FRANKIE, TSH, LIPID, CREA #### [facility] [address] [address] [address] Devon Gillette Cholesterol in HDL [Mass/Vol] 33 mg/dL Critically low 40-60 [facility] Comment on above: Performed By: #### G FRANKIE, TSH, LIPID, CREA #### [facility] [address] [address] [address] Devon Gillette Cholesterol.total/Choles terol in HDL [Mass ratio] 7.4 {ratio} Normal [facility] Comment on above: Performed By: #### G FRANKIE, TSH, LIPID, CREA #### [facility] [address] [address] [address] Devon Gillette HDL NORMAL > or = 60 mg/dl - LO W CARDIOVASCULAR RISK <40 mg/dl - HIGH CARDIOVASCULAR RISK Normal [facility] Comment on above: Performed By: #### G FRANKIE, TSH, LIPID, CREA #### [facility] [address] [place], [place] [address] Dr. Devon Gillette Triglyceride [Mass/Vol] 431 mg/dL Critically high <=150 [facility] Comment on above: Performed By: #### G FRANKIE, TSH, LIPID, CREA #### [facility] [address] [place], [place] [address] Dr. Devon Gillette Vital Signs Date Time Vital Sign Value Performing Clinician Facility 05-16-2023 10:00-0500 Body temperature 98.2 [degF] MD Alexia Ayala Work Phone: [facility] 05-16-2023 10:00-0500 Diastolic blood pressure 78 mm[Hg] MD Alexia Ayala Work Phone: [facility] 05-16-2023 10:00-0500 Heart rate 87 /min MD Alexia Ayala Work Phone: [facility] 05-16-2023 10:00-0500 Respiratory rate 18 /min MD Alexia Ayala Work Phone: [facility] 05-16-2023 10:00-0500 SaO2% (BldA) [Mass fraction] 99 % MD Alexia Ayala Work Phone: [facility] 05-16-2023 10:00-0500 Systolic blood pressure 136 mm[Hg] MD Alexia Ayala Work Phone: [facility] 05-02-2023 16:16-0500 Body height 162.56 cm MD Alexia Ayala Work Phone: [facility] 05-02-2023 16:16-0500 Body weight 75.7 kg MD Alexia Ayala Work Phone: [facility] 03-27-2023 14:00-0500 Body height 162.56 cm Alexia Ayala Other [facility] Other 03-27-2023 14:00-0500 Body mass index (BMI) [Ratio] 28.49 kg/m2 Alexia Ayala Other [facility] Other 03-27-2023 14:00-0500 Body weight 75.3 kg Alexia Ayala Other [facility] Other 03-27-2023 14:00-0500 Diastolic blood pressure 84 mm[Hg] Alexia Ayala Other [facility] Other 03-27-2023 14:00-0500 Systolic blood pressure 136 mm[Hg] Alexia Ayala Other [facility] Other 02-06-2023 10:30-0400 Body height 162.56 cm Alexia Ayala Other [facility] Other 02-06-2023 10:30-0400 Body mass index (BMI) [Ratio] 29.01 kg/m2 Alexia Ayala Other [facility] Other 02-06-2023 10:30-0400 Body weight 76.66 kg Alexia Ayala Other [facility] Other 02-06-2023 10:30-0400 Diastolic blood pressure 84 mm[Hg] Alexia Ayala Other [facility] Other 02-06-2023 10:30-0400 Systolic blood pressure 144 mm[Hg] Alexia Ayala Other [facility] Other 12-28-2022 09:30-0400 Body height 162.56 cm Alexia Ayala Other [facility] Other 12-28-2022 09:30-0400 Body mass index (BMI) [Ratio] 28.15 kg/m2 Alexia Ayala Other [facility] Other 12-28-2022 09:30-0400 Body weight 74.39 kg Alexia Ayala Other [facility] Other 12-28-2022 09:30-0400 Diastolic blood pressure 78 mm[Hg] Alexia Ayala Other [facility] Other 12-28-2022 09:30-0400 SaO2% (BldA) [Mass fraction] 96 % Alexia Ayala Other [facility] Other 12-28-2022 09:30-0400 Systolic blood pressure 128 mm[Hg] Alexia Ayala Other [facility] Other 09-13-2022 15:00-0400 Body height 162.56 cm Alexia Ayala Other [facility] Other 09-13-2022 15:00-0400 Body mass index (BMI) [Ratio] 28.32 kg/m2 Alexia Ayala Other [facility] Other 09-13-2022 15:00-0400 Body weight 74.84 kg Alexia Ayala Other [facility] Other 09-13-2022 15:00-0400 Diastolic blood pressure 74 mm[Hg] Alexia Ayala Other [facility] Other 09-13-2022 15:00-0400 SaO2% (BldA) [Mass fraction] 98 % Alexia Ayala Other [facility] Other 09-13-2022 15:00-0400 Systolic blood pressure 142 mm[Hg] Alexia Ayala Other [facility] Other 07-06-2022 10:00-0500 Body height 162.56 cm Alexia Ayala Other [facility] Other 07-06-2022 10:00-0500 Body mass index (BMI) [Ratio] 28.66 kg/m2 Alexia Ayala Other [facility] Other 07-06-2022 10:00-0500 Body weight 75.75 kg Alexia Ayala Other [facility] Other 07-06-2022 10:00-0500 Diastolic blood pressure 62 mm[Hg] Alexia Ayala Other [facility] Other 07-06-2022 10:00-0500 SaO2% (BldA) [Mass fraction] 98 % Alexia Ayala Other [facility] Other 07-06-2022 10:00-0500 Systolic blood pressure 110 mm[Hg] Alexia Ayala Other [facility] Other 06-14-2022 11:00-0500 Body height 162.56 cm Alexia Ayala Other [facility] Other 06-14-2022 11:00-0500 Body mass index (BMI) [Ratio] 29.01 kg/m2 Alexia Ayala Other [facility] Other 06-14-2022 11:00-0500 Body weight 76.66 kg Alexia Ayala Other [facility] Other 06-14-2022 11:00-0500 Diastolic blood pressure 76 mm[Hg] Alexia Ayala Other [facility] Other 06-14-2022 11:00-0500 SaO2% (BldA) [Mass fraction] 98 % Alexia Ayala Other [facility] Other 06-14-2022 11:00-0500 Systolic blood pressure 138 mm[Hg] Alexia Ayala Other [facility] Other Encounters Encounter Date Encounter Type Care Provider Facility Start: 05-16-2023 End: 05-17-2023 ambulatory Rafael Itzkowitz Facility:[facility] Start: 05-16-2023 End: 05-16-2023 Admission to same day surgery center MD Alexia Ayala Work Phone: [facility] Work Phone: Start: 05-16-2023 End: 05-16-2023 ambulatory MD Alexia Ayala Work Phone: [facility] Work Phone: Start: 05-02-2023 End: 05-02-2023 ambulatory Rafael Itzkowitz Facility:[facility] Start: 05-02-2023 End: 05-02-2023 Patient encounter procedure MD Alexia Ayala Work Phone: [facility] Work Phone: Start: 04-28-2023 End: 04-28-2023 ambulatory RAFAEL H ITZKOWITZ Not Available Start: 04-10-2023 End: 04-10-2023 ambulatory Alexia Ayala Other [facility] Other Start: 04-10-2023 Telephone encounter Alexia Ayala [facility] Start: 04-05-2023 End: 04-05-2023 ambulatory RAFAEL H ITZKOWITZ Not Available Start: 03-27-2023 End: 03-27-2023 ambulatory Alexia Ayala Other [facility] Other Start: 03-27-2023 Patient encounter procedure Alexia Ayala [facility] Start: 03-27-2023 Telephone encounter Alexia Ayala [facility] Start: 03-21-2023 End: 03-21-2023 ambulatory Alexia Ayala Other [facility] Other Start: 03-21-2023 Telephone encounter Alexia Ayala [facility] Start: 03-10-2023 (Televisit) Televisit Alexia Mena [facility] Start: 03-10-2023 End: 03-10-2023 ambulatory Alexia Ayala Other [facility] Other Start: 03-06-2023 End: 03-06-2023 ambulatory Alexia Ayala Other [facility] Other Start: 03-06-2023 Telephone encounter Alexia Ayala [facility] Start: 02-28-2023 ambulatory Gavin Mena acility:[facility] Start: 02-06-2023 End: 02-06-2023 ambulatory Alexia Ayala Other [facility] Other Start: 02-06-2023 Office outpatient vi sit 15 minutes Alexia Ayala [facility] Start: 02-06-2023 Telephone encounter Alexia Ayala [facility] Start: 12-28-2022 End: 12-28-2022 ambulatory Alexia Ayala Other [facility] Other Start: 12-28-2022 Office outpatient vi sit 15 minutes Alexia Ayala [facility] Start: 09-13-2022 End: 09-13-2022 ambulatory Alexia Ayala Other [facility] Other Start: 09-13-2022 Office outpatient vi sit 15 minutes Alexia Ayala [facility] Start: 08-26-2022 End: 08-27-[address] LITTLE STAFFORD . Facility:[facility] Start: 08-01-2022 End: 08-02-[address] LITTLE STAFFORD . Facility:[facility] Start: 07-18-2022 End: 07-18-[address] LITTLE STAFFORD . Facility:[facility] Start: 07-12-2022 End: 07-12-2022 ambulatory Alexia Ayala Other [facility] Other Start: 07-12-2022 Telephone encounter Alexia Ayala [facility] Start: 07-06-2022 End: 07-06-2022 ambulatory Alexia Ayala Other [facility] Other Start: 07-06-2022 Office outpatient vi sit 15 minutes Alexia Ayala [facility] Start: 06-21-2022 End: 06-21-2022 ambulatory Alexia Ayala Other [facility] Other Start: 06-21-2022 Telephone encounter Alexia Ayala [facility] Start: 06-14-2022 End: 06-14-2022 ambulatory Alexia Ayala Facility:[facility] Start: 06-14-2022 Office outpatient vi sit 15 minutes Alexia Ayala [facility] Start: 06-14-2022 End: 06-14-2022 ambulatory MD Alexia Ayala Work Phone: [facility] Work Phone: Start: 06-14-2022 End: 06-14-2022 Departed Referred MD Alexia Ayala Work Phone: [facility] [place] Work Phone: Start: 04-25-2022 Adult health examination Radha Ayala Other [facility] Other Start: 04-25-2022 Gynecological examination normal Alexia Ayala Other [facility] Other Start: 04-21-2022 End: 04-21-[address] ALEXIA AYALA Facility:[facility] Start: 04-14-2022 End: 04-15-2022 ambulatory ANIA BLANCA Facility:[facility] Start: 03-28-2022 End: 03-28-[address] ALEXIA AYALA Facility:[facility] Start: 12-27-2021 End: 12-28-2021 ambulatory ANIA BLANCA Facility:[facility] Procedures Date Procedure Procedure Detail Performing Clinician Start: 05-16-2023 Core needle biopsy o f breast using ultrasound guidance MD Alexia Ayala Work Phone: Start: 05-16-2023 Mammography of left breast MD Alexia Ayala Work Phone: Start: 05-16-2023 Ultrasonography of l eft breast MD Alexia Ayala Work Phone: Start: 05-16-2023 Ultrasonography of limb MD Alexia Ayala Work Phone: End: 06-28-2019 Viral screening Alexia Ayala Other Plan of Treatment Date Care Activity Detail Author Start: 05-16-2023 Lumpectomy of left breast OR Breast Bx, Lumpectomy, Mass Excision (Left) [facility] Start: 06-14-2022 [facility] Atopobium vaginae DN A [Presence] in Vaginal fluid by HIMANSHU with probe detection [facility] Bacterial vaginosis associated bacterium 2 DNA [Presence] in Vaginal fluid by HIMANSHU with probe detection [facility] Megasphaera sp type 1 DNA [Presence] in Vaginal fluid by HIMANSHU with probe detection [facility] Immunizations Immunization Date Immunization Notes Care Provider Fa [facility] 02-28-2022 COVID-19 mRNA Bivale nt Booster (Pfizer) MD Alexia Ayala Work Phone: [facility] 04-20-2021 COVID-19 mRNA, Comirnaty (Pfizer) MD Alexia Ayala Work Phone: [facility] 08-27-2020 COVID-19 mRNA, Comirnaty (Pfizer) MD Alexia Ayala Work Phone: [facility] 08-07-2020 COVID-19 mRNA Comirnaty (Pfizer) MD Alexia Ayala Work Phone: [facility] Payers Date Payer Category Payer Self-pay [id number] 1965 Unknown [id number] 2.16.84 [id number] 1965 Unknown [id number] 2.16.84 [id number] 1965 Unknown [id number] 2.16.84 [id number] 1965 Unknown [id number] 2.16.84 [id number] 1964 Unknown [id number] 2.16.84 [id number] 1964 Unknown [id number] 2.16.84 [id number] 1964 Unknown [id number] 2.16.84 [id number] 1964 Unknown [id number] 2.16.840 .[id number] 1965 Unknown [id number] 2.16.840 .[id number] 1960 Medicaid [id number] 1960 Medicare [id number]. [id number] Medicare Medicare [id number] Unknown [id number] 2.16.8 [id number] Unknown [id number] 2.16.8 [id number] Unknown [id number] 2.16.8 [id number] Unknown [id number] .16.8 [id number] Social History Date Type Detail Facility Tobacco smoking status MIIS Unknown if ever smoked [facility] Work Phone: Start: 1965 Sex Assigned At Female F [facility] Sex Assigned At Sex Assigned At Bir th [facility] Other Start: 05-02-2023 Tobacco smoking status NHIS Ex-smoker (finding) [facility] Clinical Notes 06-14-2022 to 03-27-2023 Note Date & Type Note Facility 03-27-2023 Evaluation note Encounter Date Diagnosis Assessment Notes Mar, Invasive ductal carcinoma of left breast (ICD-10 - C50.912) Reviewed results. Grade 1. D/w daughter on speaker - phone. Appt made w Dr. García on 04/05 at 2pm. Path report and mamm reports sent to their office. [facility] Other 11-14-2023 Evaluation note* Encounter Date Diagnosis Assessment Notes Treatment Notes Treatment Clinical Notes Mar, Elevated triglycerides with high cholesterol (ICD-10 - E78.2) [facility] Other 11-03-2023 Evaluation note* Encounter Date Diagnosis Assessment Notes Treatment Notes Treatment Clinical Notes Mar, Bronchitis (ICD-10 - J40) Take medications as directed. Use saline nasal spray prior to presciption nasal spray. Take medications as directed, and complete all doses of medication even if you start to feel better. Patient advised to follow up with PCP if symptoms persist or worsen. Patient verbalized understanding and agreement with treatment plan. [facility] Other 10-02-2023 Evaluation note* Encounter Date Diagnosis Assessment Notes Treatment Notes Treatment Clinical Notes Feb, Abnormal mammogram of left breast (ICD-10 - R92.8) [facility] Other 10-02-2023 Evaluation note* Encounter Date Diagnosis Assessment Notes Treatment Notes Treatment Clinical Notes Feb, Elevated triglycerides with high cholesterol (ICD-10 - E78.2) Called pharmacy. They do not carry the med she is interested in the [place]. Changed rx and sent to [facility]. [facility] Other 08-23-2023 Evaluation note* Encounter Date Diagnosis Assessment Notes Treatment Notes Treatment Clinical Notes Dec, Elevated fasting glucose (ICD-10 - R73.01) Pt states Dr. Blanca is helping her wean the zyprexa. Will recheck labs listed below and return for OV in Apr. Dec, Hypothyroidism (ICD-10 - E03.9) Labs reviewed and normal. Continue present medication [facility] Other 05-09-2023 Evaluation note* Encounter Date Diagnosis Assessment Notes Treatment Notes Treatment Clinical Notes September, Skin candidiasis (ICD-10 - B37.2) Very mild erythema and discoloration. Recommend OTC Gold Valadez Powder. Call if not improving. [facility] Other 03-01-2023 Evaluation note* Encounter Date Diagnosis Assessment Notes Treatment Notes Treatment Clinical Notes Jul, Hypothyroidism (ICD-10 - E03.9) stable - chronic - continue present dose. Jul, Vaginal atrophy (ICD-10 - N95.2) Melony denies any further pain, vaginal bleeding or discomfort. Will call later today for her well woman exam with Dr. Stafford. Verbally consented to share records w him from our last office visit. [facility] Other 02-07-2023 Evaluation note* Encounter Date Diagnosis Assessment Notes Treatment Notes Treatment Clinical Notes Jun, Acute vaginitis (ICD-10 - N76.0) New problem - sent culture for yeast/BV/trich. will call in 1-2 days when results are back. [facility] Other Evaluation noteNo assessment information available [facility] Work Phone: Evaluation noteNo InformationNort [email or web address] Other History general Narrative - Reported* Type Description Date Medical History Gastroesophageal ref lux disease, esophagitis presence not specified Medical History Bipolar 1 disorder, depressed Medical History Acquired hypothyroidism Medical History Hypercholesterolemia Medical History BMI 28.0-28.9,adult Medical History Hypothyroidism Medical History Chronic kidney disease, stage 3 unspecified Medical History Elevated fasting glucose Medical History Pain of right upper arm Medical History [place] use Medical History Vaginal atrophy Surgical History tubal ligation 2016 Surgical History wisdom teeth Surgical History CATARACT EXTRACTION- LEFT 01/25 17 Surgical History DETACHED RETINE REPAIR (LEFT) 0 06/2021 Surgical History CATARACT EXTRACTION- RIGHT 02/06 017 Hospitalization History SEE SURGICAL HX [facility] Other Advance Directives No Advanced Directives Records Found Advance Directive Response Recorded Date/ Time Advance Directives No January 3:39pm Summary Purpose Family History No Family History Records Found Relationship Condition Age at Onset Recorded Date/T everardo Not Specified Malignant neoplasm of stomach Unknown Reason for Referral Reason I called and made ap pt - 04/05 2pm. We are faxing path result. Diagnosis 1 Invasive ductal carc inoma of left breast (C50.912) Referral Organization [facility] Referring Provider First Name Alexia Referring Provider Last Name Jamie Referring Provider Specialty Family [facility] cine Referred Organization [facility] Referred Provider Rafael García Referred Address ,[place], [place],[address] Referred Provider Specialty Surgery Referral Priority Routine Chief Complaint and Reason for Visit Chief Complaint Left Breast Cancer Left Breast Cancer Additional Source Comments Care Teams (unrecognized sec tion and content) Team Status: Inactive Member Role Status Dates Alexia Ayala MD Attending Provider Active Team Status: Active Member Role Status Dates Alexia Ayala MD Primary Care Provider Active Team Status: Inactive Member Role Status Dates Rafael García DO Attending Provider Active Alexia Ayala MD Primary Care Provider Active Goals (unrecognized section and content) Goals may be documented in a n alternate sectionNo InformationNo InformationNo InformationNo InformationNo InformationNo InformationNo InformationNo InformationNo InformationNo InformationNo InformationNo InformationNo InformationNo InformationNo InformationGoals may be documented in an alternate section REASON FOR VISIT (unrecogniz ed section and content) possible yeast infectionmess ageFOLLOW UPprescription refillRashlab work discussionnew med ?Medication DiscussionmessageFLU [phone] resultBREAST BIOPSY RESULTSlabsFLU [phone] INFORMATION SOURCE (unrecogn ized section and content) DATE CREATED AUTHOR 09/02/2022 [facility] DATE CREATED AUTHOR AUTHOR'S ORGANIZ ATION 04/29/2023 [facility] EPIC DATE CREATED AUTHOR AUTHOR'S ORGANIZ ATION 05/26/2023 [facility] FOR RECORDS PERTAINING TO PATIENTS WHO ARE OR HAVE BEEN ENROLLED IN A CHEMICAL DEPENDENCY/SUBSTANCEABUSE PROGRAM, SOME INFORMATION MAY BE OMITTED. This clinical summary was aggregated from multiple sources. Caution should be exercised in using it in the provision of clinical care. This summary normalizes information from multiple sources, and as a consequence, information in this document may materially change the coding, format and clinical context of patient data. In addition, data may be omitted in some cases. CLINICAL DECISIONS SHOULD BE BASED ON THE PRIMARY CLINICAL RECORDS. [facility] PUD [facility]. provides no warranty or guarantee of the accuracy or completeness of information in this document.
[2023-06-02 11:39] LABS: Thyroid Stimulating Hormone 1.669 uIU/mL (0.358-3.740)
[2023-06-03 09:09] LABS: Lithium (Eskalith(R)), Serum 0.9 mmol/L (0.5-1.2)
== END 2023-06-02 08:23 | disposition home or self-care (01) ==
LOC: LAB 08:23
PROVIDERS: PCP Family Medicine; Visit Provider Psychiatry & Neurology Psychiatry
DX: F31.9 Bipolar disorder, unspecified (principal); Z79.899 Other long term (current) drug therapy
CPT/HCPCS: 36415; 80178; 84443

== ENCOUNTER 2023-07-24 20:30 | Outpatient (REF) | payer MEDICARE, MEDICAID, SELFPAY ==
--- OUTSIDE RECORDS SUMMARY | 2023-07-24 20:37 | XMS_ITS | CCD ---
Author Name Unknown Address [address] [facility] [address] [place] [address] Organization [facility] Care Team Providers Care Medication Manager Name Role Phone MD Alexia Ayala Attending Provider [phone] BENITO ., DR FITCH Admitting Unavailabl e KARASIK ., DR FITCH Attending Unavailabl e KARASIK ., DR FITCH Consulting Unavailabl e AYALA, DR ALEXIA Bryant Primary Care Unavailable ZIMICHELLE, DR ORLANDO Frost Consulting Unavailable KARASIK ., [...] JAMIE, DR ALEXIA Bryant Primary Care Unavailable JAMIE, DR ALEXIA Bryant Admitting Unavailable AYALA, DR ALEXIA Bryant Attending Unavailable AYALA, DR ALEXIA Bryant Consulting Unavailable JAMIE, DR ALEXIA Bryant Primary Care Unavailable ANIA BLANCA Attending Unavailable ANIA BLANCA Consulting Unavailable ANIA BLANCA Admitting Unavailable JAMIE, DR ALEXIA Bryant Primary Care Unavailable Alexia Ayala Unavailable DO Rafael García Attending Provider MD Alexia Ayala Primary Care Provider ADAMA GARCÍA Referring Unavailable ALEXIA AYALA Primary Care Unavailable Itzkowitz, Rafael Admitting Unavailable Itzkowitz, Rafael Attending Unavailable Alexia Ayala Primary Care Unavailable Itzkowitz, Rafael Admitting Unavailable Itzkowitz, Rafael Attending Unavailable Alexia Ayala Primary Care Unavailable Mela, Gavin Admitting Unavailab le Gavin Plaza Attending Unavailab le Itzkowitz, Rafael Attending Unavailable Itzkowitz, Rafael Admitting Unavailable Alexia Ayala Primary Care Unavailable Itzkowitz, Rafael Admitting Unavailable Itzkowitz, Rafael Attending Unavailable Alexia Ayala Primary Care Unavailable JORDYN POTRILLO Attending Unavailable ITZKOWITZ, RAFAEL H Attending Unavailable ITZKOWITZ, RAFAEL H Attending Unavailable ALEXIA AYALA Referring Unavailable ITZKOWITZ, RAFAEL H Attending Unavailable FELICIA JOSEPH Attending Unavailable Allergies Allergy Classification Reported Allergen(s) Allergy Type Date of Onset Reaction(s) Facility (9 sources) cefdinir Drug Allergy Unknown [facility] Other (15 sources) Penicillin Drug Allergy halucination and swallowing dificulty [facility] Other (2 sources) Penicillins Drug allergy (disorder) 05-08-18 76 Swelling of Lip/Tongue/Thro at [facility] Repository (10 sources) Medicinal cephalosporin and acting as antibacterial agent (FN) Drug allergy Unknown [facility] Other (10 sources) Ceftin *CEPHALOSPORINS* Propensity to adverse reactions Unknown [facility] Other (1 source) Cephalosporins (Antibiotic) Drug allergy (disorder) 07-19-19 [facility] Repository (1 source) Penicillins Drug allergy (disorder) 07-19-19 [facility] Repository Medications Current Medications Medication Drug [...] 1 tablet by missy th once daily in the morning Levothyroxine Sodium 75 MCG 1 tablet in the morning on an empty stomach Orally Once a day for 90 days Active take 1 tablet by missy th once daily in the morning Levothyroxine Sodium 75 MCG 1 tablet in the morning on an empty stomach Orally Once a day for 90 days Active lithium carbonate 450 mg extended release oral tablet (16 sources) Start: 05-02-2023 take 450 mg by mouth once daily in the evening [place] Carbonate Active 450 MG PO Every evening May 02, 2023 12:00am take 1 capsule by mo deh once daily at bedtime [place] Carbonate 450 mg 1 capsule Orall y QHS Active [place] Carbonat e 450 mg 2 tablets QHS [...] 2023 12:00am take 1 capsule by mo [facility] once daily in the morning Omeprazole 40 [...] or test findings] Episodic Cancer of breast (6 sources) Infiltrating duct carcinoma of breast; Translations: [Malignant neoplasm of unspecified site of left female breast] Onset: 06-29-2023 Chronic Chronic kidney disease (15 sources) Chronic [...] current use of drug therapy; Translations: [Other correction (current) drug therapy] Episodic Other aftercare (3 sources) Other exterminator helper termite (current) drug therapy; Translations: [OTH NURSING HOME 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 THERAPY] Onset: 04-18-2022 Episodic Other bone disease and musculoskeletal deformities (1 source) Other specified disorders of bone density and structure, unspecified site; Translations: [OT D/O BONE DEN STRUCT UNS SITE] Onset: [...] conditions (not mental disorders or infectious disease) (19 sources) Other abnormal and inconclusive findings on [...] carried out because of patient refusal] Episodic Residual codes; unclassified (1 source) Estrogen receptor positive status [ER+]; Translations: [Estrogen receptor positive status (ER+)] Onset: 06-29-2023 Episodic Screening and history of mental health [...] Test Name Value Interpretation Reference Range Facility Basic Metabolic Panelon 07-06 Anion gap [Moles/Vol] 12.2 mmol/L Normal 6.0-15.0 [facility] Comment on above: Performed By: #### C BC, BMP #### [address] Calcium [Mass/Vol] 9.5 mg/dL Normal 8.6-10.3 [facility] Comment on above: Result Comment: PERF ORMED BY: [place] [address] PATHOLOGIST SORT LINE HUI NORTH M.D. Performed By: #### C BC, BMP #### [facility] [address] [place] [address] [place] Chloride [Moles/Vol] 101 mmol/L Normal 98-107 [facility] Comment on above: Performed By: #### C BC, BMP #### [facility] [address] [place] [address] [place] CO2 [Moles/Vol] 27.6 mmol/L Normal 21.0-31.0 [facility] Comment on above: Performed By: #### C BC, BMP #### [facility] [address] Creatinine [Mass/Vol] 0.90 mg/dL Normal 0.60-1.20 [facility] Comment on above: Performed By: #### C BC, BMP #### [facility] [address] [place] [address] [place] GFR/1.73 sq M.predicted MDRD (S/P/Bld) [Vol rate/Area] mL/min/{1.73_m2} Normal [facility] Comment on above: Performed By: #### C BC, BMP #### [facility] [address] Glucose [Mass/Vol] 333 mg/dL High 70-100 [facility] Comment on above: Result Comment: Fowler Glucose Reference Range is dependent on time and content of last meal. Glucose of more than 200 mg/dL in a nonstressed, ambulatory subject supports the diagnosis of Diabetes Mellitus. ADA recommended reference range Performed By: #### C BC, BMP #### [facility] [address] [place] [address] [place] Potassium [Moles/Vol] 3.8 mmol/L Normal 3.5-5.1 [facility] Comment on above: Performed By: #### C BC, BMP #### [facility] [address] [place] [address] [place] Sodium [Moles/Vol] 137 mmol/L Normal 136-145 [facility] Comment on above: Performed By: #### C BC, BMP #### [facility] [address] [place] [address] [place] Urea nitrogen [Mass/Vol] 12 mg/dL Normal 7-25 [facility] Comment on above: Performed By: #### C BC, BMP #### [facility] [address] Complete Blood Count Auto Di ffon 07-19-2023 Basophils (Bld) [#/Vol] 0.0 10*3/uL Normal 0.0-0.2 [facility] Comment on above: Result Comment: PERF ORMED BY: [place] [address] PATHOLOGIST SORT LINE HUI NORTH M.D. Performed By: #### C BC, BMP #### [facility] [address] [place] [address] [place] Basophils/100 WBC (Bld) 0.6 % Normal . [facility] Comment on above: Performed By: #### C BC, BMP #### [facility] [address] [place] [address] [place] Eosinophils (Bld) [#/Vol] 0.0 10*3/uL Normal 0.0-0.45 [facility] Comment on above: Performed By: #### C BC, BMP #### [place] [address] [place] Eosinophils/100 WBC (Bld) 0.0 % Normal . [facility] Comment on above: Performed By: #### C BC, BMP #### [facility] [address] [place] [address] [place] Erythrocyte distribution width (RBC) [Ratio] 14.1 % Normal 11.9-15.3 [facility] Comment on above: Performed By: #### C BC, BMP #### [facility] [address] [place] [address] Hematocrit (Bld) [Volume fraction] 39.2 % Normal 34.0-46.4 [facility] Comment on above: Performed By: #### C BC, BMP #### [place] [address] [place] Hemoglobin (Bld) [Mass/Vol] 13.0 g/dL Normal 11.8-15.4 [facility] Comment on above: Performed By: #### C BC, BMP #### [place] [address] [place] Lymphocytes (Bld) [#/Vol] 0.7 10*3/uL Low 1.00-4.8 [facility] Comment on above: Performed By: #### C BC, BMP #### [facility] [address] [place] [address] [place] Lymphocytes/100 WBC (Bld) 15.7 % Normal . [facility] Comment on above: Performed By: #### C BC, BMP #### [facility] [address] MCH (RBC) [Entitic mass] 27.7 pg Normal 24.7-34.3 [facility] Comment on above: Performed By: #### C BC, BMP #### [facility] [address] MCV (RBC) [Entitic vol] 83.7 fL Normal 80-100 [facility] Comment on above: Performed By: #### C BC, BMP #### [address] Mean Corpuscular HGB Conc 33.1 g/dL Normal 32.0-35.0 [facility] Comment on above: Performed By: #### C BC, BMP #### [facility] [address] [place] [address] [place] Monocytes (Bld) [#/Vol] 0.3 10*3/uL Normal 0.0-0.8 [facility] Comment on above: Performed By: #### C BC, BMP #### [facility] [address] [place] [address] [place] Monocytes/100 WBC (Bld) 6.6 % Normal . [facility] Comment on above: Performed By: #### C BC, BMP #### [facility] [address] [place] [address] [place] Neutrophils (Bld) [#/Vol] 3.7 10*3/uL Normal 1.8-7.7 [facility] Comment on above: Performed By: #### C BC, BMP #### [facility] [address] [place] [id number] [place] Neutrophils/100 WBC (Bld) 77.1 % Normal . [facility] Comment on above: Performed By: #### C BC, BMP #### [facility] [address] NRBC% 0.1 /100{WBC} Normal 0-0.5 [facility] Comment on above: Performed By: #### C BC, BMP #### [facility] [address] Platelet mean volume (Bld) [Entitic vol] 8.4 fL Normal 6.3-10.7 [facility] Comment on above: Performed By: #### C CARLEEN, BMP #### [facility] [address] [place] [address] [place] Platelets (Bld) [#/Vol] 127 10*3/uL Low 150-450 [facility] Comment on above: Performed By: #### C CARLEEN, BMP #### [address] RBC (Bld) [#/Vol] 4.69 10*6/uL Normal 3.60-5.00 [facility] Comment on above: Performed By: #### C CARLEEN, BMP #### [address] WBC (Bld) [#/Vol] 4.8 10*3/uL Normal 3.8-11.6 [facility] Comment on above: Performed By: #### C CARLEEN, BMP #### [address] US breast LT limitedon 07-11 US breast LT limited [facility] [place] [address] [place] [address] Ultrasound Report Signed Patient: Melony Manley MR#: [id number] : 1965 Acct:[id number] Age/Sex: 58 / F ADM Date: 07/12/23 Loc: [facility] Room: Type: [facility] Attending Dr: Rafael García DO Ordering Provider: Rafael García DO Date of Service: 07/12/23 US/US breast LT limited: R92.8 Copies to: Rafael Itzkowitz, DO LIMITED LEFT BREAST ULTRASOUND CLINICAL DATA: Follow-up abnormal outside breast MRI. 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 Reference is made to the prior MRI from June 29, 2023 and to previous mammograms and ultrasound studies from February 2023 through May 16, 2023. Real-time ultrasound evaluation of the inferior central breast was performed. At the 5:00 position, 2 cm from the nipple at the area of the more recent benign biopsy there is a small residual hypo echoic area approximately 5 mm in size which may be minimal residual hematoma. There are some subtle heterogeneous areas at the inferior central breast around 6:00 which are slightly further from the nipple and deeper. It is inconclusive as to whether or not these could correlate with the site of the original biopsy performed in March 2023 and 2 the area of enhancement on the recent breast MRI. Since there are some residual calcifications at the original biopsy site mammographically, these could be localized for lumpectomy. This was discussed with Dr. García and the patient. US/US breast LT limited IMPRESSION: NO CONVINCING ULTRASOUND FINDINGS AT THE SITE OF MRI CONCERN AND THE BIOPSY FROM LAST MARCH. MAMMOGRAPHIC SEED LOCALIZATION OF THAT AREA IS THEREFORE SUGGESTED. Impression dictated by: Althea Tobar M.D.07/12/2023 2:30 PM Dictation Location: [facility] Tech: Sheyla Stewart Transcribed By: JONA 07/12/23 1430 Dictated By: Althea Tobar MD 07/12/23 1418 Signed By: 07/12/23 1430 [facility] MRI BREAST BILATERAL W WO CO NTRASTon 06-30-2023 MRI BREAST BILATERAL W WO CONTRAST EXAMINATION: MRI OF THE BILATERAL BREASTS WITHOUT AND WITH CONTRAST 06/29/2023 10:14 am: TECHNIQUE: Multiplanar multisequence MRI of the bilateral breasts were performed without and with the administration of intravenous contrast. Data analysis was performed with color parametric mapping, image subtraction, and 3D reconstructions. COMPARISON: Outside imaging including post biopsy left mammogram 05/16/2023, left breast ultrasound 05/16/2023 and bilateral mammography 08/01/2022. HISTORY: ORDERING SYSTEM PROVIDED HISTORY: Malignant neoplasm of central portion of left breast in female, estrogen receptor positive (HCC) TECHNOLOGIST PROVIDED HISTORY: STAT Creatinine as needed:->Yes What is the sedation requirement?->None Reason for Exam: Follow up after a left breast biopsy. Additional signs and symptoms: Malignant neoplasm of central portion of left breast in female, estrogen receptor positive (HCC), Other abnormal and inconclusive findings on diagnostic imaging of breast FINDINGS: BACKGROUND PARENCHYMAL ENHANCEMENT: Mild. FIBROGLANDULAR TISSUE: Scattered fibroglandular tissue. RIGHT BREAST: No suspicious enhancement or mass. LEFT BREAST: Small T1 hyperintense ovoid cavity in the anterolateral left breast is noted, corresponding to biopsy clip site. No abnormal enhancement identified in this region. A 0.7 cm enhancing mass is present in the 6 o'clock location, 7.3 cm from the nipple. EXTRAMAMMARY STRUCTURES: No enlarged or suspicious appearing axillary lymph node. No signal abnormality otherwise appreciated in the visualized chest or upper abdomen. IMPRESSION: 1. 0.7 cm mass in the 6 o'clock left breast, for which second-look ultrasound is recommended. 2. No enhancement identified in the site of biopsy in the anterolateral left breast. Small post biopsy hematoma is present. 3. No suspicious MRI finding identified in the right breast. BI-RADS 6 BIRADS: BIRADS - CATEGORY 6 Known Biopsy-Proven Cancer. Appropriate action should be taken. OVERALL ASSESSMENT - KNOWN BIOPSY PROVEN MALIGNANCY. Interpreted by: Anthony Pichardo MD Signed by: Anthony Pichardo MD 06/30/23 Final result Normal [facility] 05-16-2023 L - -------- Specimen: [id number] Received: 05/16/23 Status: WAN Beasley Num: [id number] Spec Type: Surgical Subm Dr: Rafael García, DO Tissues: A BREAST CORE NO CALCS (LT BREAST TISSUE) Procedures: HE/2, Gross/Micro L4 -------- Age/ Patient Sex Location Account Attending Physician -------- Melony Manley 58/F [place] [id number] Rafael García DO -------- SPEC NUM: [id number] RECD: 05/16/23 STATUS: WAN [place]AS[place] NUM: [id number] MANGO: 05/16/[address] [facility] [address]: Rafael Gracía DO ENTERED: 05/16/23 [facility] DR: CAR[place] TYPE: Surgical DEPT: S ORDERED: HE/2, Gross/Micro L4 ORDERED: HE/2, Gross/Micro L4 COMMENTS: @ Originally on account #[id number] Req #[id number] Pathological Diagnosis Left breast mass at 6:00 [...] [id number] Received: 05/16/23 Status: WAN Beasley Num: [id number] Spec Type: Surgical Subm Dr: Rafael García, DO Tissues: A BREAST CORE NO CALCS (LT BREAST TISSUE) Procedures: HE/2, Gross/Micro L4 -------- Patient: Melony Manley [id number] (Continued) -------- Specimen: [id number] Received: 05/16/23 (Continued) Gross Description (Continued) Signed (signature on file) Francis Zapata MD 05/17/23 1009 -------- Specimen: [id number] Received: 05/16/23 Status: WAN Beasley Num: [id number] Spec Type: Surgical Subm Dr: Rafael García, DO Tissues: A BREAST CORE NO CALCS (LT BREAST TISSUE) Procedures: HE/2, Gross/Micro L4 -------- Patient: Melony Manley [id number] (Continued) -------- Specimen: [id number] Received: 05/16/23 (Continued) Gross Description (Continued) formalin: 6 PM 05/16/2023. Cold Ischemia and Fixation Time meets the requirements specified in the latest version of the ASCO/CAP guidelines: Yes. Cold Ischemic Time: 0.08 Formalin Fixation Time: 7.42 Microscopic Description Two H E slides reviewed. The microscopic examination confirms the diagnosis. CPT Codes 01322 -------- -------- Specimen: [id number] Received: 05/16/23 Status: WAN Gale Num: [id number] Spec Type: Surgical Subm Dr: Rafael García DO Tissues: A BREAST CORE NO CALCS (LT BREAST TISSUE) Procedures: HE/Charli Garcia/John L4 -------- Patient: Melony Manley [id number] (Continued) -------- Signed (signature on file) Francis Zapata MD 05/17/23 1009 [facility] US breast LT limitedon 05-16 [place] [address] Mammography Report Signed with Ronaldo Patient: Melony Manley MR#: [id number] : 1965 Acct:[id number] Age/Sex: 58 / F ADM Date: 04/28/23 Loc: [place] Room: Type: [facility] Attending Dr: Rafael García DO Copies to: DO Alexia Alexandre MD Ordering Provider: Rafael García DO Date of Service: 05/16/23 US/US breast LT limited: ABN. MAMM ([id number]) US/US extremity nonvascular: LEFT AXILLA ([id number]) US/US breast ndl core biopsy LT: ABN. MAMM ([id number]) MM/MM post biopsy LT w/CAD: POST U/S BX WITH CLIP ADDENDUM 1 Addendum for pathology: Ultrasound-guided biopsy 6:00 position 2 cm from the nipple: Focal fibroadenomatoid change. No in situ or invasive carcinoma identified. Finding is benign and concordant with imaging. Surgical/oncologic management of the patient's known cancer is recommended. Impression dictated by: Mateusz Jamison Jr., D.O.05/18/2023 9:20 AM Dictation Location: [place] [address] Addendum Dictated By: Mateusz Jamison Jr, DO Addendum Signed By: 05/18/23919 Addendum Cosigned By: DD/ /31/918 TD/TT: 05/18/2303/31/920 ULTRASOUND GUIDED VACUUM-ASSISTED HOLOGIC ATEC SYSTEM CORE BIOPSIES OF THE LEFT BREAST: CLINICAL DATA: History of stereotactically biopsied breast cancer within the left breast. PROCEDURE: The patient was initially scheduled for a radioactive seed placement. The patient's outside images from [facility] were reviewed and discussed with the referring [...] cm from the nipple was performed by instrument technologist . The previously identified mass was [...] breast mass were performed using a 12-gauge [employer] vacuum-assisted core biopsy needle under ultrasound guidance. [...] NL Impression dictated by: Mateusz Jamison Jr., D.O.05/16/2023 12:03 PM Dictation Location: [facility] Transcribed By: [facility] 05/16/23 1203 Dictated By: Mateusz Jamison Jr, DO 05/16/23 1046 Signed By: 05/16/23 1203 [facility] Basic Metabolic Panelon 12-2 Anion gap [Moles/Vol] 13.2 mmol/L Normal 6.0-15.0 [facility] Comment on above: Performed By: #### C CARLEEN, BMP #### [address] Calcium [Mass/Vol] 9.8 mg/dL Normal 8.6-10.3 [facility] Comment on above: Result Comment: PERF ORMED BY: [place] [address] PATHOLOGIST SORT LINE HUI NORTH M.D. Performed By: #### C CARLEEN, BMP #### [place] [address] [place] Chloride [Moles/Vol] 107 mmol/L Normal 98-107 [facility] Comment on above: Performed By: #### C BC, BMP #### [facility] [address] [place] [address] [place] CO2 [Moles/Vol] 26.0 mmol/L Normal 21.0-31.0 [facility] Comment on above: Performed By: #### C BC, BMP #### [facility] [address] [place] [address] [place] Creatinine [Mass/Vol] 0.93 mg/dL Normal 0.60-1.20 [facility] Comment on above: Performed By: #### C CARLEEN, BMP #### [facility] [address] [place] [address] [place] GFR/1.73 sq M.predicted MDRD (S/P/Bld) [Vol rate/Area] mL/min/{1.73_m2} Normal [facility] Comment on above: Performed By: #### C BC, BMP #### [facility] [address] [place] [address] [place] Glucose [Mass/Vol] 147 mg/dL High 70-100 [facility] Comment on above: Result Comment: [place] Glucose Reference Range is dependent on time and content of last meal. Glucose of more than 200 mg/dL in a nonstressed, ambulatory subject supports the diagnosis of Diabetes Mellitus. ADA recommended reference range Performed By: #### C BC, BMP #### [facility] [address] [place] [address] [place] Potassium [Moles/Vol] 4.2 mmol/L Normal 3.5-5.1 [facility] Comment on above: Performed By: #### C BC, BMP #### [facility] [address] [place] [id number] [place] Sodium [Moles/Vol] 142 mmol/L Normal 136-145 [facility] Comment on above: Performed By: #### C BC, BMP #### [facility] [address] [place] [id number] [place] Urea nitrogen [Mass/Vol] 12 mg/dL Normal 7-25 [facility] Comment on above: Performed By: #### C CARLEEN, BMP #### [facility] [address] [place] [address] [place] Basophils Auto (Bld) [#/Vol] Ordered By: Rafael García on 05-02-2023 Basophils (Bld) [#/Vol] 0.0 10*3/uL 0.0-0.2 [facility] Basophils/100 WBC Auto (Bld) Ordered By: Rafael García on 05-02-2023 Basophils/100 WBC (Bld) 0.5 % . [facility] Calcium [Mass/volume] in Ser um or PlasmaOrdered By: Rafael García on 05-02-2023 Calcium [Mass/Vol] 9.8 mg/dL 8.6-10.3 [facility] Carbon dioxide, total [Moles /volume] in Serum or PlasmaOrdered By: Rafael García on 05-02-2023 CO2 [Moles/Vol] 26.0 mmol/L 21.0-31.0 [facility] Chloride [Moles/volume] in S cristi or PlasmaOrdered By: Rafael García on 05-02-2023 Chloride [Moles/Vol] 107 mmol/L 98-107 [facility] Complete Blood Count Auto Di ffon 05-02-2023 Basophils (Bld) [#/Vol] 0.0 10*3/uL Normal 0.0-0.2 [facility] Comment on above: Result Comment: PERF ORMED BY: [facility] [address] [place] [address] PATHOLOGIST SORT LINE HUI NORTH M.D. Performed By: #### C CARLEEN, BMP #### [facility] [address] [place] [address] [place] Basophils/100 WBC (Bld) 0.5 % Normal . [facility] Comment on above: Performed By: #### C BC, BMP #### [facility] [address] [place] [address] [place] Eosinophils (Bld) [#/Vol] 0.0 10*3/uL Normal 0.0-0.45 [facility] Comment on above: Performed By: #### C BC, BMP #### [address] Eosinophils/100 WBC (Bld) 0.0 % Normal . [facility] Comment on above: Performed By: #### C BC, BMP #### [address] Erythrocyte distribution width (RBC) [Ratio] 14.0 % Normal 11.9-15.3 [facility] Comment on above: Performed By: #### C BC, BMP #### [address] Hematocrit (Bld) [Volume fraction] 38.9 % Normal 34.0-46.4 [facility] Comment on above: Performed By: #### C BC, BMP #### [address] Hemoglobin (Bld) [Mass/Vol] 12.9 g/dL Normal 11.8-15.4 [facility] Comment on above: Performed By: #### C BC, BMP #### [address] Lymphocytes (Bld) [#/Vol] 1.2 10*3/uL Normal 1.00-4.8 [facility] Comment on above: Performed By: #### C BC, BMP #### [place] [address] [place] Lymphocytes/100 WBC (Bld) 21.5 % Normal . [facility] Comment on above: Performed By: #### C BC, BMP #### [address] MCH (RBC) [Entitic mass] 28.4 pg Normal 24.7-34.3 [facility] Comment on above: Performed By: #### C BC, BMP #### [address] MCV (RBC) [Entitic vol] 85.8 fL Normal 80-100 [facility] Comment on above: Performed By: #### C BC, BMP #### [facility] [address] Mean Corpuscular HGB Conc 33.1 g/dL Normal 32.0-35.0 [facility] Comment on above: Performed By: #### C BC, BMP #### [facility] [address] [place] [address] [place] Monocytes (Bld) [#/Vol] 0.4 10*3/uL Normal 0.0-0.8 [facility] Comment on above: Performed By: #### C BC, BMP #### [facility] [address] [place] [address] [place] Monocytes/100 WBC (Bld) 6.5 % Normal . [facility] Comment on above: Performed By: #### C BC, BMP #### [facility] [address] [place] [address] [place] Neutrophils (Bld) [#/Vol] 4.0 10*3/uL Normal 1.8-7.7 [facility] Comment on above: Performed By: #### C BC, BMP #### [facility] [address] [place] [address] [place] Neutrophils/100 WBC (Bld) 71.5 % Normal . [facility] Comment on above: Performed By: #### C BC, BMP #### [facility] [address] [place] [address] [place] NRBC% 0.0 /100{WBC} Normal 0-0.5 [facility] Comment on above: Performed By: #### C BC, BMP #### [facility] [address] [place] [address] [place] Platelet mean volume (Bld) [Entitic vol] 7.9 fL Normal 6.3-10.7 [facility] Comment on above: Performed By: #### C BC, BMP #### [facility] [address] [place] [address] [place] Platelets (Bld) [#/Vol] 146 10*3/uL Low 150-450 [facility] Comment on above: Performed By: #### C BC, BMP #### [facility] [address] [place] [id number] [facility] RBC (Bld) [#/Vol] 4.53 10*6/uL Normal 3.60-5.00 [facility] Comment on above: Performed By: #### C BC, BMP #### [facility] [address] [place] [id number] [facility] WBC (Bld) [#/Vol] 5.7 10*3/uL Normal 3.8-11.6 [facility] Comment on above: Performed By: #### C BC, BMP #### [facility] [address] Creatinine [Mass/volume] in Serum or PlasmaOrdered By: Rafael García on 05-02-2023 Creatinine [Mass/Vol] 0.93 mg/dL 0.60-1.20 [facility] ECG 12 lead ECGon 05-02-2023 ECG 12 lead ECG [facility] [address] [place] [address] [place] [address] Electrocardiograph Report Signed Patient: Melony Manley MR#: [id number] : 1965 Acct:[id number] Age/Sex: 58 / F ADM Date: 05/02/23 Loc: Room: Type: [facility] Attending Dr: Rafael García DO Ordering Provider: [...] By Marybeth Villarreal DO 05/03 0946 Normal [facility] Eosinophils Auto (Bld) [#/Vo l]Ordered By: Rafael García on 05-02-2023 Eosinophils (Bld) [#/Vol] 0.0 10*3/uL 0.0-0.45 [facility] Eosinophils/100 WBC Auto (Bl d)Ordered By: Rafael García on 05-02-2023 Eosinophils/100 WBC (Bld) 0.0 % . [facility] Erythrocyte distribution wid th Auto (RBC) [Ratio]Ordered By: Rafael García on 05-02-2023 Erythrocyte distribution width (RBC) [Ratio] 14.0 % 11.9-15.3 [facility] Glucose [Mass/volume] in Ser um or PlasmaOrdered By: Rafael García on 05-02-2023 Glucose [Mass/Vol] 147 mg/dL 70-100 [facility] Comment on above: ADA recommended refe rence rangeRandom Glucose Reference Range is dependent on time and content of last meal. Glucose of more than 200 mg/dL in a nonstressed, ambulatory subject supports the diagnosis of Diabetes Mellitus. Hematocrit Auto (Bld) [Volum e fraction]Ordered By: Rafael García on 05-02-2023 Hematocrit (Bld) [Volume fraction] 38.9 % 34.0-46.4 [facility] Hemoglobin [Mass/volume] in BloodOrdered By: Rafael García on 05-02-2023 Hemoglobin (Bld) [Mass/Vol] 12.9 g/dL 11.8-15.4 [facility] Leukocytes [#/volume] correc cori for nucleated erythrocytes in Blood by Automated counOrdered By: Rafael García on 05-02-2023 WBC corrected for nucl RBC Auto (Bld) [#/Vol] 5.7 10*3/uL 3.8-11.6 [facility] Lymphocytes Auto (Bld) [#/Vo l]Ordered By: Rafael García on 05-02-2023 Lymphocytes (Bld) [#/Vol] 1.2 10*3/uL 1.00-4.8 [facility] Lymphocytes/100 WBC Auto (Bl d)Ordered By: Rafael García on 05-02-2023 Lymphocytes/100 WBC (Bld) 21.5 % . [facility] MCH Auto (RBC) [Entitic mass ]Ordered By: Rafeal García on 05-02-2023 MCH (RBC) [Entitic mass] 28.4 pg 24.7-34.3 [facility] MCHC Auto (RBC) [Mass/Vol]Or dered By: Rafael García on 05-02-2023 MCHC (RBC) [Mass/Vol] 33.1 g/dL 32.0-35.0 [facility] MCV Auto (RBC) [Entitic vol] Ordered By: Rafael García on 05-02-2023 MCV (RBC) [Entitic vol] 85.8 fL 80-100 [facility] Monocytes Auto (Bld) [#/Vol] Ordered By: Rafael García on 05-02-2023 Monocytes (Bld) [#/Vol] 0.4 10*3/uL 0.0-0.8 [facility] Monocytes/100 WBC Auto (Bld) Ordered By: Rafael García on 05-02-2023 Monocytes/100 WBC (Bld) 6.5 % . [facility] Neutrophils Auto (Bld) [#/Vo l]Ordered By: Rafael García on 05-02-2023 Neutrophils (Bld) [#/Vol] 4.0 10*3/uL 1.8-7.7 [facility] Neutrophils/100 WBC Auto (Bl d)Ordered By: Rafael García on 05-02-2023 Neutrophils/100 WBC (Bld) 71.5 % . [facility] No Panel InformationOrdered By: Rafael García on 05-02-2023 Estimated GFR (CKD-EPI) > 60.0 mL/Min [facility] Creatinine Clearance (Chem N/A [facility] Nucleated erythrocytes [Pres ence] in Blood by Automated countOrdered By: Rafael García on 05-02-2023 Nucleated RBC Auto Ql (Bld) 0.0 /100{WBC} 0-0.5 [facility] Platelet mean volume Auto (B ld) [Entitic vol]Ordered By: Rafael García on 05-02-2023 Platelet mean volume (Bld) [Entitic vol] 7.9 fL 6.3-10.7 [facility] Platelets Auto (Bld) [#/Vol] Ordered By: Rafael García on 05-02-2023 Platelets (Bld) [#/Vol] 146 10*3/uL 150-450 [facility] Potassium [Moles/volume] in Serum or PlasmaOrdered By: Rafael García on 05-02-2023 Potassium [Moles/Vol] 4.2 mmol/L 3.5-5.1 [facility] RBC Auto (Bld) [#/Vol]Ordere d By: Rafael García on 05-02-2023 RBC (Bld) [#/Vol] 4.53 10*6/uL 3.60-5.00 [facility] Serum or plasma anion gap de terminationOrdered By: Rafael García on 05-02-2023 Anion gap [Moles/Vol] 13.2 mmol/L 6.0-15.0 [facility] Sodium [Moles/volume] in Ser um or PlasmaOrdered By: Rafael García on 05-02-2023 Sodium [Moles/Vol] 142 mmol/L 136-145 [facility] Urea nitrogen [Mass/volume] in Serum or PlasmaOrdered By: Rafael García on 05-02-2023 Urea nitrogen [Mass/Vol] 12 mg/dL 7-25 [facility] WBC Auto (Bld) [#/Vol]Ordere d By: Rafael García on 05-02-2023 WBC (Bld) [#/Vol] 5.7 10*3/uL 3.8-11.6 [facility] MG MAMM LT DIAG FUon 023 MG MAMM LT DIAG FU Patient: MELONY MANLEY Exam Date: 08/26/2022 : 1965 Gender:F Ordering : DR LITTLE STAFFORD . Admission #: [id number] Family : Order #: [id number] CLICK HERE TO VIEW EXAM RADIOLOGY REPORT [...] stomach cancer at age 54. LOCATION: [facility] BREAST COMPOSITION: Heterogeneously dense,which may obscure small [...] M.D. on 08/26/2022 at 14:39 Normal [facility] US BREAST LEFT LIMITEDon US BREAST LEFT LIMITED Patient: MELONY MANLEY Exam Date: 08/26/2022 : 1965 Gender:F Ordering : DR LITTLE STAFFORD . Admission #: [id number] Family : Order #: [id number] CLICK HERE TO VIEW EXAM RADIOLOGY REPORT [...] stomach cancer at age 54. LOCATION: [facility] BREAST COMPOSITION: Heterogeneously dense,which may obscure small [...] M.D. on 08/26/2022 at 14:39 Normal [facility] MAMM SCREEN 3D SOLITARIO CADon 08-01-2022 MG MAMM SCREEN 3D SOLITARIO CAD Patient: MELONY MANLEY Exam Date: 08/01/2022 : 1965 Gender:F Ordering : DR LITTLE STAFFORD . Admission #: [id number] Family : Order #: [id number] CLICK HERE TO VIEW EXAM RADIOLOGY REPORT [...] stomach cancer at age 54. LOCATION: [facility] BREAST COMPOSITION: Heterogeneously dense,which may obscure small [...] Mccormack M.D. on 08/01/2022 at 12:26 Normal [facility] XR DEXA BONE DENSITYon 08-01 XR DEXA [...] by: ORLANDO MCCORMACK Date: 2022-08-01 11:39 Normal [facility] PAP ACOG PANEL 2: 30 to 65on 07-26-2022 . . Normal [facility] Comment on above: Result Comment: Perf ormed at: WB Performed By: #### [id number] #### [facility] [address] [place] [address] Dr. Devon Gillette Age Gdln ACOG Testing 30-65 Normal [facility] Comment on above: Performed By: #### [id number] #### [facility] [address] [place] [address] Dr. Devon Gillette DIAGNOSIS: Comment Normal [facility] Comment on above: Result Comment: NEGA TIVE FOR INTRAEPITHELIAL LESION OR MALIGNANCY. Performed at: WB Performed By: #### [id number] #### [facility] [address] [place] [address] Dr. Devon Gillette HPV Aptima Negative Normal Negative [facility] Comment on above: Result Comment: This nucleic acid amplification test detects fourteen high-risk HPV types (16,18,31,33,35,39,45,51,52,56,58,59,66,68) without differentiation. Performed at: =G Performed By: #### [id number] #### [facility] [address] [place] [address] Dr. Devon Gillette HPV Genotype Reflex Comment Normal [facility] Comment on above: Result Comment: Crit eria not met, HPV Genotype not performed. Performed at: WB Performed By: #### [id number] #### [facility] [address] [place] [address] Dr. Devon Gillette Methodology: Comment Normal [facility] Comment on above: Result Comment: This liquid based ThinPrep(R) pap test was screened with the use of an image guided system. Performed at: WB Performed By: #### [id number] #### [facility] [address] [place] [address] Dr. Devon Gillette Note: Comment Normal [facility] Comment on above: Result Comment: The Pap smear is a screening test designed to aid in the detection of premalignant and malignant conditions of the uterine cervix. It is not a diagnostic procedure and should not be used as the sole means of detecting cervical cancer. Both false-positive and false-negative reports do occur. . Performed at: WB Performed By: #### [id number] #### [facility] [address] [place] [address] Dr. Devon Gillette Performed by: Comment Normal [facility] Comment on above: Result Comment: Anjelica Girard, Poultry Sexer (ASCP) Performed at: WB Performed By: #### [id number] #### [facility] [address] [place] [address] Dr. Devon Gillette Specimen adequacy: Comment Normal [facility] Comment on above: Result Comment: Sati sfactory for evaluation. Endocervical and/or squamous metaplastic cells (endocervical component) are present. Performed at: WB Performed By: #### [id number] #### [facility] [address] [place] [address] Dr. Devon Gillette VAGINITIS/VAGINOSIS DNA PROB Jim 07-20-2022 Anni species Negative Normal Negative [facility] Comment on above: Performed By: #### V AGINT #### [facility] [address] [place] [address] Dr. Devon Gillette Gardnerella vaginalis Positive Abnormal Negative [facility] Comment on above: Performed By: #### V AGINT #### [facility] [address] [place] [address] Dr. Devon Gillette Trichomonas vaginalis Negative Normal Negative [facility] Comment on above: Performed By: #### V AGINT #### [facility] [address] [place] [address] Dr. Devon Gillette CULTURE URINEon 04-21-2022 CULTURE URINE Culture Observations : LIGHT GROWTH OF MIXED GENITAL LAZARO. NO POTENTIAL PATHOGENS SEEN. Normal [facility] Comment on above: Performed By: #### G FRANKIE, TSH, LIPID, CREA #### [facility] [address] [place] [address] Dr. Devon Gillette LITHIUMon 04-15-2022 [place] (Eskalith(R)), Serum 0.6 mmol/L Normal 0.5-1.2 [facility] Comment on above: Result Comment: A co ncentration of 0.5-0.8 mmol/L is advised for long-term use; concentrations of up to 1.2 mmol/L may be necessary during acute treatment. Detection Limit = 0.1 <0.1 indicates None Detected Performed By: #### G FRANKIE, TSH, LIPID, CREA #### [facility] [address] [address] [address] Devon Gillette CREATININEon 04-14-2022 Creatinine [Mass/Vol] 0.89 mg/dL Normal 0.55-1.02 [facility] Comment on above: Performed By: #### G FRANKIE, TSH, LIPID, CREA #### [facility] [address] [address] [address] Devon Gillette EGFR-AF ANGUILLAN >60 Normal >=60 [facility] Comment on above: Performed By: #### G FRANKIE, TSH, LIPID, CREA #### [facility] [address] [address] [address] Devon Gillette EGFR-NON AF ANGUILLAN >60 Normal >=60 [facility] Comment on above: Performed By: #### G FRANKIE, TSH, LIPID, CREA #### [facility] [address] [address] [address] Devon Gillette GLUCOSE BLOODon 04-14-2022 Glucose [Mass/Vol] 118 mg/dL Critically high 74-106 [facility] Comment on above: Performed By: #### G FRANKIE, TSH, LIPID, CREA #### [facility] [address] [address] [address] Devon Gillette LIPID PROFILEon 04-14-2022 CHOL-HDL RATIO NORM SEE BELOW Normal [facility] Comment on above: Result Comment: 3.3 - 4.4 LOW RISK 4.4 - 7.1 AVERAGE RISK 7.1 - 11.0 MODERATE RISK >11.0 HIGH RISK Performed By: #### G FRANKIE, TSH, LIPID, CREA #### [facility] [address] [address] [address] Devon Gillette Cholesterol [Mass/Vol] 128 mg/dL Normal <=200 [facility] Comment on above: Performed By: #### G FRANKIE, TSH, LIPID, CREA #### [facility] [address] [address] [address] Devon Gillette Cholesterol in HDL [Mass/Vol] 47 mg/dL Normal 40-60 [facility] Comment on above: Performed By: #### G FRANKIE, TSH, LIPID, CREA #### [facility] [address] [address] [address] Devon Gillette Cholesterol in LDL [Mass/Vol] 34.6 mg/dL Normal [facility] Comment on above: Performed By: #### G FRANKIE, TSH, LIPID, CREA #### [facility] [address] [address] [address] Devon Gillette Cholesterol.total/Choles terol in HDL [Mass ratio] 2.7 {ratio} Normal [facility] Comment on above: Performed By: #### G FRANKIE, TSH, LIPID, CREA #### [facility] [address] [address] [address] Devon Gillette HDL NORMAL > or = 60 mg/dl - LO W CARDIOVASCULAR RISK <40 mg/dl - HIGH CARDIOVASCULAR RISK Normal [facility] Comment on above: Performed By: #### G FRANKIE, TSH, LIPID, CREA #### [facility] [address] [address] [address] Devon Gillette LDL CALC NORMAL SEE BELOW Normal [facility] Comment on above: Result Comment: <100 mg/dl OPTIMAL 100 - 129 mg/dl NEAR OR ABOVE OPTIMAL 130 - 159 mg/dl BORDERLINE HIGH 160 - 189 mg/dl HIGH >190 mg/dl VERY HIGH Performed By: #### G FRANKIE, TSH, LIPID, CREA #### [facility] [address] [address] [address] Devon Gillette Triglyceride [Mass/Vol] 232 mg/dL Critically high <=150 [facility] Comment on above: Performed By: #### G FRANKIE, TSH, LIPID, CREA #### [facility] [address] [address] [address] Devon Gillette VLDL CALC 46.4 mg/dL Normal [facility] Comment on above: Performed By: #### G FRANKIE, TSH, LIPID, CREA #### [facility] [address] [address] [address] Devon Gillette TSHon 04-14-2022 TSH 0.375 uIU/mL Normal 0.358-3.740 [facility] Comment on above: Performed By: #### G FRANKIE, TSH, LIPID, CREA #### [facility] [address] [address] [address] Devon Gillette CULTURE URINEon 03-30-2022 CULTURE [...] F Trimethoprim/Sulfamet hoxazole <=20 S F Normal [facility] Comment on above: Performed By: #### U RCX #### [facility] [address] [place] [address] Dr. Devon Gillette LITHIUMon 12-28-2021 [place] (Eskalith(R)), Serum 0.7 mmol/L Normal 0.5-1.2 [facility] Comment on above: Result Comment: Plas ma concentration of 0.5 - 0.8 mmol/L are advised for long-term use; concentrations of up to 1.2 mmol/L may be necessary during acute treatment. Detection Limit = 0.1 <0.1 indicates None Detected Performed By: #### G FRANKIE, TSH, LIPID, CREA #### [facility] [address] [place] [address] Dr. Devon Gillette CREATININEon 12-27-2021 Creatinine [Mass/Vol] 1.10 mg/dL Critically high 0.55-1.02 [facility] Comment on above: Performed By: #### G FRANKIE, TSH, LIPID, CREA #### [facility] [address] [address] [address] Devon Gillette EGFR-AF ANGUILLAN >60 Normal >=60 [facility] Comment on above: Performed By: #### G FRANKIE, TSH, LIPID, CREA #### [facility] [address] [address] [address] Devon Gillette EGFR-NON AF ANGUILLAN 51 mL/min/1.73m2 Critically low >=60 [facility] Comment on above: Performed By: #### G FRANKIE, TSH, LIPID, CREA #### [facility] [address] [address] [address] Devon Gillette DIRECT LDLon 12-27-2021 Cholesterol in LDL [Mass/Vol] 133 mg/dL Normal [facility] Comment on above: Performed By: #### G FRANKIE, TSH, LIPID, CREA #### [facility] [address] [address] [address] Devon Gillette DLDL NORMAL SEE BELOW Normal [facility] Comment on above: Result Comment: <100 mg/dl OPTIMAL 100 - 129 mg/dl NEAR OR ABOVE OPTIMAL 130 - 159 mg/dl BORDERLINE HIGH 160 - 189 mg/dl HIGH >190 mg/dl VERY HIGH Performed By: #### G FRANKIE, TSH, LIPID, CREA #### [facility] [address] [address] [address] Devon Gillette GLUCOSE BLOODon 12-27-2021 Glucose [Mass/Vol] 151 mg/dL Critically high 74-106 [facility] Comment on above: Performed By: #### G FRANKIE, TSH, LIPID, CREA #### [facility] [address] [place] [address] Dr. Devon Gillette LIPID PROFILEon 12-27-2021 CHOL-HDL RATIO NORM SEE BELOW Normal [facility] Comment on above: Result Comment: 3.3 - 4.4 LOW RISK 4.4 - 7.1 AVERAGE RISK 7.1 - 11.0 MODERATE RISK >11.0 HIGH RISK Performed By: #### G FRANKIE, TSH, LIPID, CREA #### [facility] [address] [place] [address] Dr. Devon Gillette Cholesterol [Mass/Vol] 244 mg/dL Critically high <=200 [facility] Comment on above: Performed By: #### G FRANKIE, TSH, LIPID, CREA #### [facility] [address] [address] [address] Devon Gillette Cholesterol in HDL [Mass/Vol] 33 mg/dL Critically low 40-60 [facility] Comment on above: Performed By: #### G FRANKIE, TSH, LIPID, CREA #### [facility] [address] [address] [address] Devno Gillette Cholesterol.total/Choles terol in HDL [Mass ratio] 7.4 {ratio} Normal [facility] Comment on above: Performed By: #### G FRANKIE, TSH, LIPID, CREA #### [facility] [address] [address] [address] Devon Gillette HDL NORMAL > or = 60 mg/dl - LO W CARDIOVASCULAR RISK <40 mg/dl - HIGH CARDIOVASCULAR RISK Normal [facility] Comment on above: Performed By: #### G FRANKIE, TSH, LIPID, CREA #### [facility] [address] [address] [address] Devon Gillette Triglyceride [Mass/Vol] 431 mg/dL Critically high <=150 [facility] Comment on above: Performed By: #### G FRANKIE, TSH, LIPID, CREA #### [facility] [address] [address] [address] Devon Gillette Vital Signs Date Time Vital Sign Value Performing Clinician Facility 05-16-2023 10:00-0500 Body temperature 98.2 [degF] MD Alexia Ayala Work Phone: [facility] 05-16-2023 10:00-0500 Diastolic blood pressure 78 mm[Hg] MD Alexia Ayala Work Phone: [facility] 05-16-2023 10:00-0500 Heart rate 87 /min MD Alexia Ayala Work Phone: [facility] 05-16-2023 10:00-0500 Respiratory rate 18 /min MD Alexia Ayala Work Phone: [facility] 05-16-2023 10:00-0500 SaO2% (BldA) [Mass fraction] 99 % MD Alexia Ayala Work Phone: [facility] 05-16-2023 10:00-0500 Systolic blood pressure 136 mm[Hg] MD Alexia Ayala Work Phone: [facility] 05-02-2023 16:16-0500 Body height 162.56 cm MD Alexia Ayala Work Phone: [facility] 05-02-2023 16:16-0500 Body weight 75.7 kg MD Alexia Ayala Work Phone: [facility] 03-27-2023 14:00-0500 Body height 162.56 cm Alexia Ayala Other [facility] [employer] Other 03-27-2023 14:00-0500 Body mass index (BMI) [Ratio] 28.49 kg/m2 Alexia Ayala Other [employer] Other 03-27-2023 14:00-0500 Body weight 75.3 kg Alexia Ayala Other [employer] Other 03-27-2023 14:00-0500 Diastolic blood pressure 84 mm[Hg] Alexia Ayala Other [employer] Other 03-27-2023 14:00-0500 Systolic blood pressure 136 mm[Hg] Alexia Ayala Other [employer] Other 02-06-2023 10:30-0400 Body height 162.56 cm Alexia Ayala Other [facility] Other 02-06-2023 10:30-0400 Body mass index (BMI) [Ratio] 29.01 kg/m2 Alexia Ayala Other [facility] Other 02-06-2023 10:30-0400 Body weight 76.66 kg Alexia Ayala Other [facility] Other 02-06-2023 10:30-0400 Diastolic blood pressure 84 mm[Hg] Alexia Ayala Other [facility] Other 02-06-2023 10:30-0400 Systolic blood pressure 144 mm[Hg] Alexia Ayala Other [facility] Other 12-28-2022 09:30-0400 Body height 162.56 cm Alexia Ayala Other [facility] Other 12-28-2022 09:30-0400 Body mass index (BMI) [Ratio] 28.15 kg/m2 Alexia Ayala Other [facility] Other 12-28-2022 09:30-0400 Body weight 74.39 kg Alexia Ayala Other [facility] Other 12-28-2022 09:30-0400 Diastolic blood pressure 78 mm[Hg] Alexia Ayala Other [facility] Other 12-28-2022 09:30-0400 SaO2% (BldA) [Mass fraction] 96 % Alexia Ayala Other [facility] Other 12-28-2022 09:30-0400 Systolic blood pressure 128 mm[Hg] Alexia Ayala Other [facility] Other 09-13-2022 15:00-0400 Body height 162.56 cm Alexia Ayala Other [facility] Other 09-13-2022 15:00-0400 Body mass index (BMI) [Ratio] 28.32 kg/m2 Alexia Ayala Other [facility] Other 09-13-2022 15:00-0400 Body weight 74.84 kg Alexia Ayala Other [facility] Other 09-13-2022 15:00-0400 Diastolic blood pressure 74 mm[Hg] Alexia Ayala Other [facility] Other 09-13-2022 15:00-0400 SaO2% (BldA) [Mass fraction] 98 % Alexia Ayala Other [facility] Other 09-13-2022 15:00-0400 Systolic blood pressure 142 mm[Hg] Alexia Ayala Other [facility] Other 07-06-2022 10:00-0500 Body height 162.56 cm Alexia Ayala Other [facility] Other 07-06-2022 10:00-0500 Body mass index (BMI) [Ratio] 28.66 kg/m2 Alexia Ayala Other [facility] Other 07-06-2022 10:00-0500 Body weight 75.75 kg Alexia Ayala Other [facility] Other 07-06-2022 10:00-0500 Diastolic blood pressure 62 mm[Hg] Alexia Ayala Other [facility] Other 07-06-2022 10:00-0500 SaO2% (BldA) [Mass fraction] 98 % Alexia Ayala Other [facility] Other 07-06-2022 10:00-0500 Systolic blood pressure 110 mm[Hg] Alexia Ayala Other [facility] Other 06-14-2022 11:00-0500 Body height 162.56 cm Alexia Ayala Other [facility] Other 06-14-2022 11:00-0500 Body mass index (BMI) [Ratio] 29.01 kg/m2 Alexia Ayala Other [facility] Other 06-14-2022 11:00-0500 Body weight 76.66 kg Alexia Ayala Other [facility] Other 06-14-2022 11:00-0500 Diastolic blood pressure 76 mm[Hg] Alexia Ayala Other [facility] Other 06-14-2022 11:00-0500 SaO2% (BldA) [Mass fraction] 98 % Alexia Ayala Other [facility] Other 06-14-2022 11:00-0500 Systolic blood pressure 138 mm[Hg] Alexia Ayala Other [facility] Other Encounters Encounter Date Encounter Type Care Provider Facility Start: 07-24-2023 End: 07-24-2023 ambulatory FELICIA JOSEPH Not Available Start: 07-19-2023 End: 07-19-2023 ambulatory Rafael Itzkowitz Facility:[facility] Start: 07-12-2023 End: 07-13-2023 ambulatory Rafael Itzkowitz Facility:[facility] Start: 06-29-2023 End: 07-02-2023 ambulatory ADAMA ITZKOWITZ [facility] Start: 06-01-2023 End: 06-01-2023 ambulatory JORDYN PORTILLO Not Available Start: 05-16-2023 End: 05-17-2023 ambulatory Rafael Itzkowitz Facility:[facility] Start: 05-16-2023 End: 05-16-2023 Admission to same day surgery center MD Alexia Ayala Work Phone: [facility] Work Phone: Start: 05-16-2023 End: 05-16-2023 ambulatory MD Alexia Ayala Work Phone: [facility] Work Phone: Start: 05-02-2023 End: 05-02-2023 ambulatory Rafael Itzkowitz Facility:[facility] Start: 05-02-2023 End: 05-02-2023 Patient encounter procedure MD Alexia Ayala Work Phone: [facility] Work Phone: Start: 04-28-2023 End: 04-28-2023 ambulatory RAFAEL H ITZKOWITZ Not Available Start: 04-21-2023 ambulatory Gavin Mena acility:[facility] Start: 04-10-2023 End: 04-10-2023 ambulatory Alexia Ayala Other [facility] Other Start: 04-10-2023 Telephone encounter Alexia Ayala [facility] Start: 04-05-2023 End: 04-05-2023 ambulatory RAFAEL H ITZCHETNAWITZ Not Available Start: 03-27-2023 End: 03-27-2023 ambulatory Alexia Ayala Other [facility] Other Start: 03-27-2023 Patient encounter procedure Alexia Ayala [facility] Start: 03-27-2023 Telephone encounter Alexia Ayala [facility] Start: 03-21-2023 End: 03-21-2023 ambulatory Alexia Ayala Other [facility] Other Start: 03-21-2023 Telephone encounter Alexia Ayala [facility] Start: 03-10-2023 (Televisit) Televisit Alexia Mena [facility] Start: 03-10-2023 End: 03-10-2023 ambulatory Alexia Ayala Other [facility] Other Start: 03-06-2023 End: 03-06-2023 ambulatory Alexia Ayala Other [facility] Other Start: 03-06-2023 Telephone encounter Alexia Jamie [facility] Start: 02-06-2023 End: 02-06-2023 ambulatory Alexia Ayala Other [facility] Other Start: 02-06-2023 Office outpatient vi sit 15 minutes Alexia Jamie [facility] Start: 02-06-2023 Telephone encounter Alexia Ayala [facility] Start: 12-28-2022 End: 12-28-2022 ambulatory Alexia Jamie Other [facility] Other Start: 12-28-2022 Office outpatient vi sit 15 minutes Alexia Jamie [facility] Start: 09-13-2022 End: 09-13-2022 ambulatory Alexia Ayala Other [facility] Other Start: 09-13-2022 Office outpatient vi sit 15 minutes Alexia Jamie [facility] Start: 08-26-2022 End: 08-27-[address] LITTLE STAFFORD . Facility:[facility] Start: 08-01-2022 End: 08-02-[address] LITTLE STAFFORD . Facility:[facility] Start: 07-18-2022 End: 07-18-[address] LITTLE STAFFORD . Facility:[facility] Start: 07-12-2022 End: 07-12-2022 ambulatory Alexia Ayala Other [facility] Other Start: 07-12-2022 Telephone encounter Alexia Jamie [facility] Start: 07-06-2022 End: 07-06-2022 ambulatory Alexia Jamie Other [facility] Other Start: 07-06-2022 Office outpatient vi sit 15 minutes Alexia Jamie [facility] Start: 06-21-2022 End: 06-21-2022 ambulatory Alexia Jamie Other [facility] Other Start: 06-21-2022 Telephone encounter Alexia Ayala [facility] Start: 06-14-2022 Office outpatient vi sit 15 minutes Alexia Ayala [facility] Start: 06-14-2022 End: 06-14-2022 ambulatory MD Alexia Ayala Work Phone: [facility] Work Phone: Start: 06-14-2022 End: 06-14-2022 Departed Referred MD Alexia Ayala Work Phone: [facility] [place] Work Phone: Start: 04-25-2022 Adult health examination Radha Ayala Other [facility] Other Start: 04-25-2022 Gynecological examination normal Alexia Ayala Other [facility] Other Start: 04-21-2022 End: 04-21-[address] [...] OR Breast Bx, Lumpectomy, Mass Excision (Left) [facility] Start: 06-14-2022 [facility] Atopobium vaginae DN A [Presence] in Vaginal fluid by HIMANSHU with probe detection [facility] Bacterial vaginosis associated bacterium 2 DNA [Presence] in Vaginal fluid by HIMANSHU with probe detection [facility] Megasphaera sp type 1 DNA [Presence] in Vaginal fluid by HIMANSHU with probe detection [facility] Immunizations Immunization Date Immunization Notes Care Provider Fa cility 02-28-2022 COVID-19 mRNA Bivale nt Booster (Pfizer) MD Alexia Ayala Work Phone: [facility] 04-20-2021 COVID-19 mRNA, Comirnaty (Pfizer) MD Alexia Ayala Work Phone: [facility] 08-27-2020 COVID-19 mRNA, Comirnaty (Pfizer) MD Alexia Ayala Work Phone: [facility] 08-07-2020 COVID-19 mRNA Comirnatjoshua (Pfizer) MD Aelxia Ayala Work Phone: [facility] Payers Date Payer Category Payer Self-pay [id number] 1965 Unknown [id number] 1965 Unknown [id number] ..[id number] 1965 Unknown [id number] ..[id number] 0.1.522629.3.579.2.593 1965 Unknown [id number] ..[id number] 0.1.887831.3.579.2.59 1965 Unknown [id number] ..[id number] 0.1.477923.3.579.2.593 1965 Unknown [id number] ..[id number] 0.1.069806.3.579.2.593 1965 Unknown [id number] 2.16.84 0.1.596303.3.579.2.593 1965 Unknown [id number] 2.16.8 40.1.516511.3.579.2.177 1965 Unknown [id number] 2.16.84 0.1.408377.3.579.2.1259 1964 Unknown [id number] 2.16.84 0.1.974732.3.579.2.1259 1964 Unknown [id number] 2.16.84 0.1.925131.3.579.2.1259 1965 Unknown [id number] 2.16.840 .1.770348.3.579.2.9 1965 Unknown [id number] 2.16.840 .1.238183.3.579.2.1259 1960 Medicaid [id number] 1960 Medicare [id number] 2.16. [id number] Medicare Medicare [id number] Unknown [id number] 2.16.8 40.1.632666.3.579.2.531 Unknown [id number] 2.16.8 40.1.268890.3.579.2.531 Unknown [id number] 2.16.8 40.1.117038.3.579.2.531 Unknown [id number] 2.16.8 40.1.542581.3.579.2.531 Unknown [id number] 2.16.8 40.1.897820.3.579.2.531 Social History Date Type Detail Facility Tobacco smoking status DEIS Unknown if ever smoked [facility] Work Phone: Start: 1965 Sex Assigned At Female [facility] Sex Assigned At Sex Assigned At [facility] Other Start: 05-02-2023 Tobacco smoking status NHIS Ex-smoker (finding) [facility] Clinical Notes 06-14-2022 to 03-27-2023 Note Date & Type Note Facility 03-27-2023 Evaluation note Encounter Date Diagnosis Assessment Notes Mar, Invasive ductal carcinoma of left breast (ICD-10 - C50.912) Reviewed results. Grade 1. D/w daughter on speaker - phone. Appt made w Dr. García on 04/05 at 2pm. Path report and mamm reports sent to their office. [facility] Other 11-14-2023 Evaluation note* Encounter Date Diagnosis Assessment Notes Treatment Notes Treatment Clinical Notes Mar, Elevated triglycerides with high cholesterol (ICD-10 - E78.2) [facility] Other 11-03-2023 Evaluation note* Encounter Date Diagnosis [...] verbalized understanding and agreement with treatment plan. [facility] Other 10-02-2023 Evaluation note* Encounter Date Diagnosis Assessment Notes Treatment Notes Treatment Clinical Notes Feb, Abnormal mammogram of left breast (ICD-10 - R92.8) [facility] Other 10-02-2023 Evaluation note* Encounter Date Diagnosis Assessment Notes Treatment Notes Treatment Clinical Notes Feb, Elevated triglycerides with high cholesterol (ICD-10 - E78.2) Called pharmacy. They do not carry the med she is interested in the [place]. Changed rx and sent to [facility]. [facility] Other 08-23-2023 Evaluation note* Encounter Date Diagnosis Assessment Notes Treatment Notes Treatment Clinical Notes Dec, Elevated fasting glucose (ICD-10 - R73.01) Pt states Dr. Blanca is helping her wean the zyprexa. Will recheck labs listed below and return for OV in Apr. Dec, Hypothyroidism (ICD-10 - E03.9) Labs reviewed and normal. Continue present medication [facility] Other 05-09-2023 Evaluation note* Encounter Date Diagnosis Assessment Notes Treatment Notes Treatment Clinical Notes September, Skin candidiasis (ICD-10 - B37.2) Very mild erythema and discoloration. Recommend OTC Gold Valadez Powder. Call if not improving. [facility] Other 03-01-2023 Evaluation note* Encounter Date Diagnosis [...] w him from our last office visit. [facility] Other 02-07-2023 Evaluation note* Encounter Date Diagnosis Assessment Notes Treatment Notes Treatment Clinical Notes Jun, Acute vaginitis (ICD-10 - N76.0) New problem - sent culture for yeast/BV/trich. will call in 1-2 days when results are back. [facility] Other Evaluation noteNo assessment information available [facility] Work Phone: Evaluation noteNo InformationNort [facility] Other History general Narrative - Reported* Type Description Date Medical History Gastroesophageal ref lux disease, esophagitis presence not specified Medical History Bipolar 1 disorder, depressed Medical History Acquired hypothyroidism Medical History Hypercholesterolemia Medical History BMI 28.0-28.9,adult Medical History Hypothyroidism Medical History Chronic kidney disease, stage 3 unspecified Medical History Elevated fasting glucose Medical History Pain of right upper arm Medical History [place] use Medical History Vaginal atrophy Surgical History tubal ligation 2016 Surgical History wisdom teeth Surgical History CATARACT EXTRACTION- LEFT 01/25 17 Surgical History DETACHED RETINE REPAIR (LEFT) 0 06/2021 Surgical History CATARACT EXTRACTION- RIGHT 02/06 017 Hospitalization History SEE SURGICAL HX [facility] Other Advance Directives No Advanced Directives Records [...] inoma of left breast (C50.912) Referral Organization [facility] Referring Provider First Name Alexia Referring Provider Last Name Jamie Referring Provider Specialty Family [facility] Referred Organization [facility] Referred Provider Rafael García Referred Address ,[place], [place],[address] Referred Provider Specialty Surgery Referral Priority Routine [...] UPprescription refillRashlab work discussionnew med ?Medication DiscussionmessageFLU [phone] resultBREAST BIOPSY RESULTSlabsFLU [phone] INFORMATION SOURCE (unrecogn ized section and content) DATE CREATED AUTHOR 09/02/2022 [facility] DATE CREATED AUTHOR AUTHOR'S ORGANIZ ATION 07/07/2023 [facility] DATE CREATED AUTHOR AUTHOR'S ORGANIZ ATION 07/23/2023 [facility] DATE CREATED AUTHOR AUTHOR'S ORGANIZ ATION 07/24/2023 [facility] EPIC FOR RECORDS PERTAINING TO PATIENTS WHO ARE [...] BE BASED ON THE PRIMARY CLINICAL RECORDS. [facility]. provides no warranty or guarantee of the accuracy or completeness of information in this document.
[2023-07-28 13:11] LABS: Age Gdln ACOG Testing Note (.); HPV Aptima Negative (Negative); IGP, Aptima HPV, rfx 16/18,45 Note (.)
== END 2023-07-24 20:31 | disposition home or self-care (01) ==
LOC: LAB 20:30
PROVIDERS: PCP Family Medicine; Visit Provider Physician Assistant
DX: Z01.419 Encounter for gynecological examination (general) (routine) without abnormal findings (principal)
CPT/HCPCS: 87624; G0145

== ENCOUNTER 2023-09-26 10:41 | Outpatient (OUT) | payer MEDICARE, MEDICAID, SELFPAY ==
[2023-09-26 12:21] LABS: Estimated Average Glucose 189 mg/dL; Glycohemoglobin A1C 8.2 % (4.5-6.2)
[2023-09-26 12:34] LABS: Chol HDL Ratio 2.9; Cholesterol 120 mg/dL (<=200); Estimated GFR (African America >60 (>=60); Estimated GFR (Non-African Ame >60 (>=60); Glucose 182 mg/dL (74-106); HDL Cholesterol 42 mg/dL (40-60); Thyroid Stimulating Hormone 2.178 uIU/mL (0.358-3.740); Triglycerides 239 mg/dL (<=150); VLDL CHOLESTEROL 47.8 mg/dL
[2023-09-27 05:08] LABS: Lithium (Eskalith(R)), Serum 0.7 mmol/L (0.5-1.2)
== END 2023-09-26 10:42 | disposition home or self-care (01) ==
LOC: LAB 10:42
PROVIDERS: PCP Family Medicine; Visit Provider Psychiatry & Neurology Psychiatry
DX: F31.9 Bipolar disorder, unspecified (principal); Z79.899 Other long term (current) drug therapy
CPT/HCPCS: 36415; 80061; 80178; 82565; 82947; 83036; 84443

== ENCOUNTER 2023-11-15 08:52 | Outpatient (OUT) | payer MEDICARE, MEDICAID, SELFPAY ==
[2023-11-15 09:32] LABS: Alanine Aminotransferase 44 U/L (14-59); Albumin Globulin Ratio 1.1; Albumin Level 3.9 g/dL (3.4-5.0); Alkaline Phosphatase 91 U/L (46-116); Anion Gap 13.5; Aspartate Amino Transferase 40 U/L (15-37); BUN Creatinine Ratio 11.2; Bilirubin Total 0.4 mg/dL (0.2-1.0); Calcium 9.3 mg/dL (8.5-10.1); Carbon Dioxide 26.2 mmol/L (21.0-32.0); Chloride 110 mmol/L (98-107); Estimated GFR (African America >60 (>=60); Estimated GFR (Non-African Ame 52 (>=60); Globulin 3.5 g/dL; Glucose 127 mg/dL (74-106); Potassium 4.7 mmol/L (3.5-5.1); Sodium 145 mmol/L (136-145); Total Protein 7.4 g/dL (6.4-8.2)
== END 2023-11-15 08:53 | disposition home or self-care (01) ==
LOC: LAB 08:54
PROVIDERS: PCP Family Medicine
DX: C50.912 Malignant neoplasm of unspecified site of left female breast (principal)
CPT/HCPCS: 36415; 80053

== ENCOUNTER 2023-12-22 12:58 | Outpatient (OUT) | payer MEDICARE, MEDICAID, SELFPAY ==
[2023-12-22 10:37] LABS: Hemoglobin 13.1 g/dL (12.0-16.0); Immature Granulocytes Abs Auto 0.01 10^3/uL (0.00-0.03); Immature Granulocytes Pct Auto 0.2 % (0.0-0.5)
[2023-12-22 11:14] LABS: Basophils Percent Auto 0.2 % (0.2-2.0); Hematocrit 42.6 % (36.0-48.0); Lymphocytes Absolute Auto 0.8 10^3/uL (1.2-3.8); Lymphocytes Percent Auto 18.5 % (20.5-60.0); Mean Corpuscular HGB Conc 30.8 g/dL (29.9-35.2); Mean Corpuscular Hemoglobin 27.8 pg (26.7-34.0); Mean Corpuscular Volume 90.4 fL (81.0-99.0); Mean Platelet Volume 10.1 fL (9.5-13.5); Monocytes Absolute Auto 0.3 10^3/uL (0.3-0.8); Monocytes Percent Auto 8.1 % (1.7-12.0); Neutrophils Absolute Auto 3.1 10^3/uL (1.4-6.5); Platelet Count 115 10^3/uL (150-450); Red Blood Count 4.71 10^6/uL (4.20-5.40); Red Cell Distribution Width 13.9 % (11.0-15.0); White Blood Count 4.2 10^3/uL (4.0-11.0)
[2023-12-22 11:55] LABS: Alanine Aminotransferase 42 U/L (14-59); Albumin Globulin Ratio 1.2; Albumin Level 4.1 g/dL (3.4-5.0); Alkaline Phosphatase 101 U/L (46-116); Anion Gap 13.9; Aspartate Amino Transferase 35 U/L (15-37); BUN Creatinine Ratio 12.1; Bilirubin Total 0.4 mg/dL (0.2-1.0); Carbon Dioxide 27.1 mmol/L (21.0-32.0); Chloride 107 mmol/L (98-107); Estimated GFR (African America >60 (>=60); Estimated GFR (Non-African Ame 52 (>=60); Globulin 3.3 g/dL; Glucose 143 mg/dL (74-106); Sodium 143 mmol/L (136-145); Total Protein 7.4 g/dL (6.4-8.2)
[2023-12-22 23:30] LABS: Percent Iron Saturation 18.5 %
== END 2023-12-22 12:59 | disposition home or self-care (01) ==
LOC: LAB 12-25 12:58
PROVIDERS: PCP Family Medicine
DX: C50.912 Malignant neoplasm of unspecified site of left female breast (principal); M85.80 Other specified disorders of bone density and structure, unspecified site
CPT/HCPCS: 36415; 80053; 82607; 82728; 82746; 83540; 83550; 85025

== ENCOUNTER 2024-02-08 14:33 | Outpatient (OUT) | payer MEDICARE, MEDICAID, SELFPAY ==
[2024-02-08 15:23] LABS: Alanine Aminotransferase 37 U/L (14-59); Albumin Globulin Ratio 1.1; Alkaline Phosphatase 104 U/L (46-116); Aspartate Amino Transferase 29 U/L (15-37); Bilirubin Direct 0.1 mg/dL (0.0-0.2); Bilirubin Total 0.4 mg/dL (0.2-1.0); Globulin 3.6 g/dL; Total Protein 7.6 g/dL (6.4-8.2)
== END 2024-02-08 14:34 | disposition home or self-care (01) ==
LOC: LAB 14:34
PROVIDERS: PCP Family Medicine; Visit Provider Internal Medicine
DX: C50.912 Malignant neoplasm of unspecified site of left female breast (principal)
CPT/HCPCS: 36415; 80076

== ENCOUNTER 2024-02-20 11:37 | Outpatient (OUT) | payer MEDICARE, MEDICAID, SELFPAY ==
--- OUTSIDE RECORDS SUMMARY | 2024-02-20 11:47 | XMS_ITS | CCD ---
Author Organization [facility] Care Team Providers Care [employer] Name Role Phone MD Susan Ayala Attending Provider [phone] BENITO ., DR FITCH Admitting Unavailabl e KARASIK ., DR FITCH Attending Unavailabl e KARASIK ., DR FITCH Consulting Unavailabl e AYALA, DR SUSAN Emmanuel Primary Care Unavailable ZIEBEKATERINA, DR THEA Frost Consulting Unavailable KARASIK ., DR FITCH Attending Unavailabl e KARASIK ., DR FITCH Consulting Unavailabl e AYALA, DR SUSAN Emmanuel Primary Care Unavailable KARASIK ., DR FITCH Admitting Unavailabl e ZIEBEKATERINA, DR THEA Frost Consulting Unavailable KARASIK ., DR FITCH Attending Unavailabl e KARASIK ., DR FITCH Consulting Unavailabl e AYALA, DR SUSAN Emmanuel Primary Care Unavailable KARASIK ., DR FITCH Admitting Unavailabl e AYALA, DR SUSAN Emmanuel Admitting Unavailable AYALA, DR SUSAN Emmanuel Attending Unavailable AYALA, DR SUSAN Emmanuel Consulting Unavailable JAMIE, DR SUSAN Emmanuel Primary Care Unavailable ANIA BLANCA Attending Unavailable MIRTA, ANIA Consulting Unavailable ANIA BLANCA Admitting Unavailable JAMIE, DR SUSAN Emmanuel Primary Care Unavailable JAMIE, DR SUSAN Emmanuel Admitting Unavailable AYALA, DR SUSAN Emmanuel Attending Unavailable AYALA, DR SUSAN Emmanuel Consulting Unavailable JAMIE, DR SUSAN Emmanuel Primary Care Unavailable ANIA BLANCA Attending Unavailable ANIA BLANCA Consulting Unavailable ANIA BLANCA Admitting Unavailable JAMIE, DR SUSAN Emmanuel Primary Care Unavailable Susan Ayala Unavailable DO Geraldo García Attending Provider MD Susan Ayala Primary Care Provider ADAMA GARCÍA Referring Unavailable SUSAN AYALA Primary Care Unavailable Itzkowitz, DO Geraldo Attending Provider [phone] MD Susan Ayala Primary Care Provider Raquel, DO Geraldo Attending Provider [phone] MD Susan Ayala Primary Care Provider MD Gavin Plaza Attending Provider MD Gavin Plaza Attending Provider MD Susan Ayala Primary Care Provider Raquel, DO Geraldo Attending Provider [phone] MD Gavin Plaza Attending Provider MD Christine Velazquez Attending Provider Raquel, DO Geraldo Referring Provider [phone] MD Susan Ayala Primary Care Provider Raquel, DO Geraldo Attending Provider [phone] MD Christine Velazquez Attending Provider Raquel, DO Geraldo Referring Provider [phone] MD Gavin Plaza Attending Provider MD Susan Ayala Primary Care Provider Raquel DO Geraldo Referring Provider [phone] MD Gaurav Jaime Attending Provider DO Lisa Rubalcava Attending Provider MD Susan Ayala Primary Care Provider MD Gavin Plaza Attending Provider MD Christine Velazquez Attending Provider Raquel, DO Geraldo Referring Provider JORDYN PORTILLO Attending Unavailable ITZKOWITZ, GERALDO H Attending Unavailable CHEL JOSEPH Attending Unavailable ITZKOWITZ, GERALDO H Attending Unavailable JORDYN PORTILLO Attending Unavailable ITZKOWITZ, GERALDO H Attending Unavailable ITZKOWITZ, GERALDO H Attending Unavailable ITZKOWITZ, GERALDO H Attending Unavailable AYALA, SUSAN Referring Unavailable ITZKOWITZ, GERALDO H Attending Unavailable JORDYN PORTILLO Attending Unavailable ITZKOWITZ, GERALDO H Attending Unavailable JORDYN PORTILLO Attending Unavailable ITZKOWITZ, GERALDO H Attending Unavailable MD Christine Velaqzuez Attending Provider ItzkoDO Ryan turnerdric Referring Provider [phone] Ly, Lisa L Admitting Unavailable Ly, Lisa L Attending Unavailable Ayala, Susan E Primary Care Unavailable Gavin Plaza Admitting Unavailab le Gavin Plaza Attending Unavailab le Itzkowitz, Geraldo Referring Unavailable Christine Velazquez Attending Unavailabl e Ayala, Susan E Primary Care Unavailable Christine Velazquez Admitting Unavailabl e Itzkowitz, Geraldo Attending Unavailable Itzkowitz, Geraldo Admitting Unavailable Ayala, Susan E Primary Care Unavailable Itzkowitz, Geraldo Admitting Unavailable Ayala, Susan E Primary Care Unavailable Itzkowitz, Geraldo Attending Unavailable Itzkowitz, Geraldo Admitting Unavailable Ayala, Susan E Primary Care Unavailable Itzkowitz, Geraldo Attending Unavailable Itzkowitz, Geraldo Admitting Unavailable Ayala, Susan E Primary Care Unavailable Itzkowitz, Geraldo Attending Unavailable Itzkowitz, Geraldo Attending Unavailable Itzkowitz, Geraldo Admitting Unavailable Ayala, Susan E Primary Care Unavailable Itzkowitz, Geraldo Admitting Unavailable Ayala, Susan E Primary Care Unavailable Itzkowitz, Geraldo Attending Unavailable MD Gavin Plaza Attending Provider [phone] MD Christine Velazquez Attending Provider DO Geraldo García Referring Provider [phone] Allergies Allergy Classification Reported Allergen(s) Allergy Type Date of Onset Reaction(s) Facility Cephalosporins (antibiotic) (1 source) Cephalosporins (Antibiotic) Drug Allergy 10-11-19 24 Unknown Reaction [facility] Penicillins (antibiotic) (1 source) Penicillins Drug Allergy 10-11-19 24 Swelling of Lip/Tongue/Thro at [facility] (9 sources) cefdinir Drug Allergy Unknown [employer] Other (15 sources) Penicillin Drug Allergy halucination and swallowing dificulty [facility] Other (11 sources) Penicillins Drug allergy (disorder) 05-08-18 76 Swelling of Lip/Tongue/Thro at [facility] Rep[facility] (10 sources) Medicinal cephalosporin and acting as antibacterial agent (FN) Drug allergy Unknown [employer] Other (10 sources) Ceftin *CEPHALOSPORINS* Propensity to adverse reactions Unknown [employer] Other (10 sources) Cephalosporins (Antibiotic); Translations: [Cephalosporins] Allergy to substance 07-19-19 Unknown Reaction [facility] (2 sources) Penicillins Drug allergy (disorder) 07-19-19 [facility] Repository Medications Current Medications Medication Drug Class(es) Dates Sig (Normalized) Sig (Original) alendronic acid 70 mg oral tablet (17 sources) Bisphosphonate Start: 09-21-2023 take 70 mg by mouth every week Alendronate Active 70 MG PO every week September 21, 2023 12:00am Start: 05-02-2023 End: 08-11-2023 take 70 mg by mouth every week Alendronate Discontinue d 70 MG PO every week May 02, 2023 1:00am August 11, 2023 10:45am monday ascorbic acid 500 mg oral tablet (11 sources) Vitamin C Start: 05-02-2023 take 1 tablet by mouth once daily in the morning Ascorbic Acid (Vitamin C) (Vitamin C) 500 mg Tablet Active 500 MG PO Every morning May 02, 2023 1:00am atorvastatin 40 mg oral tablet (8 sources) [...] Active busPIRone hydrochloride 5 mg oral tablet (20 sources) Start: 11-20-2023 take 5 mg by mouth twice daily Buspirone Active 5 MG PO Twice daily November 20, 2023 12:00am Start: 07-10-2023 End: 07-11-2023 take 5 mg by mouth once daily Buspirone Discontinued 5 MG PO Daily July 10, 2023 1:00am July 11, 2023 3:36pm take 1 tablet by missy th every twenty-four hours busPIRone HCl 5 MG 1 tablet once a day Active calcium carbonate 1250 mg chewable tablet (1 source) Start: 02-15-2024 take 1 tablet by mouth once daily Calcium Carbonate (Calcium 500) 500 mg calcium (1,250 mg) tablet,chewable Active 500 MG PO Daily February 15, 2024 12:00am cholecalciferol 0.025 mg oral capsule (1 source) Vitamin D Start: 02-15-2024 take 25 ug by mouth once daily Cholecalciferol (Vitamin D3) Active 25 MCG PO Daily February 15, 2024 12:00am glipiZIDE (11 sources) Sulfonylurea Start: 01-09-2024 take 1 tablet by mouth once daily Glipizide Active 0 .ROUTE .COMPLEX January 09, 2024 1:14pm TAKE 1 TABLET BY MOUTH EVERY DAY Start: 10-03-2023 End: 01-09-2024 take 5 mg by mouth once daily Glipizide Discontinued 5 MG PO Daily October 25, 2023 9:49pm January 09, 2024 1:14pm letrozole 2.5 mg oral tablet (6 sources) Aromatase Inhibitor Start: 02-15-2024 take 2.5 mg by mouth once daily Letrozole Active 2.5 MG PO Daily February 15, 2024 12:00am Start: 10-11-2023 End: 12-21-2023 take 1 tablet by mouth once daily Letrozole (Femara) 2.5 mg tablet Discontinued 2.5 MG PO Daily October 11, 2023 12:00am December 21, 2023 10:24am levothyroxine sodium 0.075 mg oral tablet (20 sources) l-Thyroxine Start: 08-08-2023 End: 10-31-2023 take 1 tablet by mouth once daily in the morning Levothyroxine Active 0 .ROUTE .COMPLEX October 31, 2023 8:37am TAKE 1 TABLET BY MOUTH EVERY DAY IN THE MORNING ON EMPTY STOMACH FOR 90 DAYS Start: 05-02-2023 End: 08-08-2023 take 75 ug by mouth once daily in the morning Levothyroxine Discontinued 75 MCG PO Every morning May 02, 2023 1:00am August 08, 2023 8:47am take 1 tablet by missy th once [...] carbonate 450 mg extended release oral tablet (20 sources) Start: 05-02-2023 take 450 mg by mouth once daily in the evening [facility] [place] Carbonate Active 450 MG PO Every evening May 02, 2023 1:00am take 1 capsule by mo [facility] once daily at bedtime [facility] [place] Carbonate 450 mg 1 capsule Orall y QHS Active [place] Carbonat e 450 mg 2 tablets QHS Active omeprazole 40 mg delayed release oral capsule (20 sources) Proton Pump Inhibitor Start: 10-31-2023 End: 02-06-2024 take 1 capsule by mouth once daily in the morning Omeprazole Active 0 .ROUTE .COMPLEX February 06, 2024 8:28am TAKE 1 CAPSULE BY MOUTH EVERY MORNING Start: 05-02-2023 End: 10-31-2023 take 40 mg by mouth once daily in the morning Omeprazole Discontinued 40 MG PO Every morning August 11, 2023 10:51am October 31, 2023 8:37am take 1 capsule by mo ut once daily in the morning Omeprazole 40 MG TAKE 1 CAPSULE BY MOUTH EVERY DAY IN THE MORNING for Active QUEtiapine 200 mg oral tablet (20 sources) Atypical Antipsychotic Start: 05-02-2023 take 200 mg by mouth once daily in the evening Quetiapine Active 200 MG PO Every evening May 02, 2023 1:00am take 1 tablet by missy th every twenty-four hours SEROquel 100 MG 1 tablet at bedtime Orally Once a day Active take 1 tablet by missy th every twenty-four hours SEROquel 25 MG 1 tablet at bedtime Orally Once a day Active rosuvastatin calcium 20 mg oral tablet (20 sources) HMG-CoA Reductase Inhibitor Start: 10-31-2023 End: 02-06-2024 take 1 tablet by mouth once daily in the evening Rosuvastatin Active 0 .ROUTE .COMPLEX February 06, 2024 8:28am TAKE 1 TABLET BY MOUTH EVERY EVENING Start: 05-02-2023 End: 10-31-2023 take 20 mg by mouth once daily in the evening Rosuvastatin Discontinued 20 MG PO Every evening August 11, 2023 10:51am October 31, 2023 8:37am Start: 02-27-2023 take 1 tablet by missy th every twenty-four hours Crestor 20 MG 1 tablet Orally Once a day for 30 days Feb, Active traZODone hydrochloride 50 mg oral tablet (20 sources) Serotonin Reuptake Inhibitor Start: 11-20-2023 take 25 mg by mouth at bedtime Trazodone Active 25 MG PO Bedtime November 20, 2023 12:00am Start: 07-10-2023 End: 07-11-2023 take 50 mg by mouth once daily Trazodone Discontinued 50 MG PO Daily July 10, 2023 1:00am July 11, 2023 3:36pm take 1 tablet by missy every twenty-four hours traZODone HCl 50 MG 1 tablet once a day Active Completed/Discontinued Medications Medication Drug Class(es) Dates Sig (Normalized) Sig (Original) acetaminophen 300 mg / codeine phosphate 30 mg oral tablet (9 sources) Opioid Agonist Start: 08-01-2023 End: 08-11-2023 take 1 tablet by mouth every six hours Acetaminophen-Code ine Discontinued 1 TAB PO Every 6 hours 24 09August 01, 2023 12:00am August 11, 2023 10:44am fenofibrate 200 mg oral capsule (5 sources) Peroxisome Proliferator Receptor alpha Agonist take 1 capsule by mouth every twenty-four hours Fenofibrate 200 MG 1 tablet Orally Once a day Not-Taking ibuprofen 600 mg oral tablet (7 sources) Nonsteroidal Anti-inflammatory Drug Start: 08-29-2023 End: 11-20-2023 Ibuprofen Discontinued 600 MG PO EVERY 4-6 HOURS 24 09August 29, 2023 12:00am November 20, 2023 8:07am do not exceed 4 doses in a 24 hour period Ketorolac (15 sources) Nonsteroidal Anti-inflammatory Drug, Cyclooxygenase [...] a day for 7 day(s) Jun, Not-Taking mometasone furoate 1 mg/ml topical cream (4 sources) Corticosteroid Start: 11-03-2023 End: 12-21-2023 Mometasone Discontinued 1 APPLIC TOPICAL Daily November 03, 2023 12:00am December 21, 2023 9:58am Apply to radiation site, once a day, AFTER radiation treatments. OLANZapine 10 mg oral tablet (20 sources) Atypical Antipsychotic Start: 05-02-2023 End: 07-11-2023 take 10 mg by mouth once daily in the evening Olanzapine Discontinued 10 MG PO Every evening May 02, 2023 1:00am July 11, 2023 3:36pm take 1 tablet by missy th once daily at bedtime OLANZapine 20 MG 1 tablet Orally QHS Act manish take 1 tablet by missy th every twenty-four hours OLANZapine 10 MG 1 tablet Orally Once a day Active tamoxifen 20 mg oral tablet (3 sources) Estrogen Agonist/Antagonist Start: 12-21-2023 End: 01-03-2024 take 20 mg by mouth once daily Tamoxifen Discontinued 20 MG PO Daily December 21, 2023 12:00am January 03, 2024 1:59pm 24 hr venlafaxine 37.5 mg extended release oral capsule (3 sources) Serotonin and Norepinephrine Reuptake Inhibitor Start: 12-21-2023 End: 01-03-2024 take 1 capsule by mouth once daily Venlafaxine (Effexor Xr) 37.5 mg capsule,extended release 24hr Discontinued 37.5 MG PO Daily December 21, 2023 12:00am January 03, 2024 1:59pm Problems Active Problems Problem Classification Problem Date Documented Date Episodic/Chronic Administrative/social admission (1 source) Person consulting for explanation of examination or test findings; Translations: [Person consulting for explanation of examination or test findings] Episodic Cancer of breast (20 sources) Infiltrating duct carcinoma of breast; Translations: [Malignant neoplasm of unspecified site of left female breast] Onset: 06-29-2023 Chronic Chronic kidney disease (20 sources) Chronic kidney disease stage 3; Translations: [Chronic kidney disease, stage 3 unspecified] 07-10-2023 Chronic Chronic obstructive pulmonary disease and bronchiectasis (2 sources) Bronchitis, not specified as acute or chronic Episodic Complications of surgical procedures or medical care (15 sources) Postoperative hematoma of breast; Translations: [Hematoma of breast following procedure] 07-11-2023 Episodic Diabetes mellitus with complications (8 sources) Hyperglycemia due to type 2 diabetes mellitus; Translations: [Type 2 diabetes mellitus with hyperglycemia] 10-09-2023 Chronic Diabetes mellitus without complication (20 sources) Impaired fasting glycemia; Translations: [Impaired fasting glucose] Onset: 03-08-2018 Episodic Disorders of lipid metabolism (20 sources) Hyperlipidemia, unspecified; Translations: [Pure hyperglyceridemia] Onset: 03-07-2018 Chronic Esophageal disorders (11 sources) Gastro-esophageal reflux disease without esophagitis; Translations: [Gastroesophageal reflux disease] 08-11-2023 Chronic Genitourinary symptoms and ill-defined conditions (8 [...] current use of drug therapy; Translations: [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] Episodic Other aftercare (3 sources) Other mcfp (current) drug therapy; Translations: [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 THERAPY] Onset: 04-18-2022 Episodic Other bone disease and musculoskeletal deformities (12 sources) Other specified disorders of bone density and structure, unspecified site; Translations: [Disorder of bone and cartilage, unspecified] Onset: 08-05-2022 09-21-2023 Episodic Other bone disease and musculoskeletal deformities (1 source) Bone density finding; Translations: [Other specified disorders of bone density and structure, unspecified site] Episodic Other bone disease and musculoskeletal deformities (6 sources) Osteopenia; Translations: [Other specified disorders of bone density and structure, unspecified site] 09-21-2023 Episodic Other circulatory disease (1 source) Elevated [...] conditions (not mental disorders or infectious disease) (20 sources) Other abnormal and inconclusive findings on diagnostic imaging of breast; Translations: [Encounter for screening mammogram for malignant neoplasm of breast] Onset: 07-18-2022 Resolved: 06-28-2019 Episodic Other upper respiratory disease (7 sources) Allergic rhinitis; Translations: [Allergic rhinitis, unspecified] 08-11-2023 Chronic Other upper respiratory disease (3 sources) Allergic rhinitis, unspecified; Translations: [Allergic rhinitis, cause unspecified] 08-11-2023 Chronic Other upper respiratory infections (1 source) Chronic [...] Test Name Value Interpretation Reference Range Facility Globulin Calc (S) [Mass/Vol] on 02-08-2024 Globulin (S) [Mass/Vol] 3.6 g/dL [facility] - Chemistry and C hemistry - challengeon 02-08-2024 Albumin [Mass/Vol] 4.0 g/dL 3.4-5.0 [facility] ALP [Catalytic activity/Vol] 104 U/L 46-116 [facility] ALT [Catalytic activity/Vol] 37 U/L 14-59 [facility] AST [Catalytic activity/Vol] 29 U/L 15-37 [facility] Bilirubin [Mass/Vol] 0.4 mg/dL 0.2-1.0 [facility] Bilirubin.direct [Mass/Vol] 0.1 mg/dL 0.0-0.2 [facility] Protein [Mass/Vol] 7.6 g/dL 6.4-8.2 [facility] Serum or plasma albumin/glob ulin mass ratioon 02-08-2024 Albumin/Globulin [Mass ratio] 1.1 {ratio} [facility] Basophils Auto (Bld) [#/Vol] on 12-22-2023 Basophils (Bld) [#/Vol] 0.0 10 3/uL 0.0-0.1 [facility] Basophils/100 WBC Auto (Bld) on 12-22-2023 Basophils/100 WBC (Bld) 0.2 % 0.2-2.0 [facility] Eosinophils/100 WBC Auto (Bl d)on 12-22-2023 Eosinophils/100 WBC (Bld) 0.0 % Low 0.9-7.0 [facility] Erythrocyte distribution wid th Auto (RBC) [Ratio]on 12-22-2023 Erythrocyte distribution width (RBC) [Ratio] 13.9 % 11.0-15.0 [facility] Estimated glomerular filtrat ion rate (GFR) non- Americanon 12-22-2023 GFR/1.73 sq M.predicted among non-blacks MDRD (S/P/Bld) [Vol rate/Area] 52 mL/min/{1.73_m2} Low >=60 [facility] Globulin Calc (S) [Mass/Vol] on 12-22-2023 Globulin (S) [Mass/Vol] 3.3 g/dL [facility] Hematocrit Auto (Bld) [Volum e fraction]on 12-22-2023 Hematocrit (Bld) [Volume fraction] 42.6 % 36.0-48.0 [facility] Hemoglobin [Mass/volume] in Bloodon 12-22-2023 Hemoglobin (Bld) [Mass/Vol] 13.1 g/dL 12.0-16.0 [facility] Iron binding capacity [Mass/ volume] in Serum or Plasmaon 12-22-2023 Iron binding capacity [Mass/Vol] 324.0 ug/dL 250.0-450.0 [facility] Iron saturation [Mass Fracti on] in Serum or Plasmaon 12-22-2023 Iron saturation [Mass fraction] 18.5 % [facility] Laboratory - Chemistry and C hemistry - challengeon 12-22-2023 Albumin [Mass/Vol] 4.1 g/dL 3.4-5.0 [facility] ALP [Catalytic activity/Vol] 101 U/L 46-116 [facility] ALT [Catalytic activity/Vol] 42 U/L 14-59 [facility] AST [Catalytic activity/Vol] 35 U/L 15-37 [facility] Bilirubin [Mass/Vol] 0.4 mg/dL 0.2-1.0 [facility] Calcium [Mass/Vol] 10.0 mg/dL 8.5-10.1 [facility] Chloride [Moles/Vol] 107 mmol/L 98-107 [facility] CO2 [Moles/Vol] 27.1 mmol/L 21.0-32.0 [facility] Cobalamin (Vitamin B12) [Mass/Vol] 382.0 pg/mL 193.0-986.0 [facility] Creatinine [Mass/Vol] 1.07 mg/dL High 0.55-1.02 [facility] Ferritin [Mass/Vol] 312.0 ng/mL High 8.0-252.0 [facility] GFR/1.73 sq M.predicted MDRD (S/P/Bld) [Vol rate/Area] mL/min/{1.73_m2} >=60 [facility] Glucose [Mass/Vol] 143 mg/dL High 74-106 [facility] Iron [Mass/Vol] 60.0 ug/dL 50.0-170.0 [facility] Potassium [Moles/Vol] 5.0 mmol/L 3.5-5.1 [facility] Protein [Mass/Vol] 7.4 g/dL 6.4-8.2 [facility] Sodium [Moles/Vol] 143 mmol/L 136-145 [facility] Urea nitrogen [Mass/Vol] 13.0 mg/dL 7.0-18.0 [facility] Urea nitrogen/Creatinine [Mass ratio] 12.1 mg/mg [facility] Laboratory - Hematology and Cell countson 12-22-2023 Immature granulocytes/100 WBC (Bld) 0.2 % 0.0-0.5 [facility] Leukocytes [#/volume] correc cori for nucleated erythrocytes in Blood by Automated counon 12-22-2023 WBC corrected for nucl RBC Auto (Bld) [#/Vol] 4.2 10 3/uL 4.0-11.0 [facility] Lymphocytes Auto (Bld) [#/Vo l]on 12-22-2023 Lymphocytes (Bld) [#/Vol] 0.8 10 3/uL Low 1.2-3.8 [facility] Lymphocytes/100 WBC Auto (Bl d)on 12-22-2023 Lymphocytes/100 WBC (Bld) 18.5 % Low 20.5-60.0 [facility] MCH Auto (RBC) [Entitic mass ]on 12-22-2023 MCH (RBC) [Entitic mass] 27.8 pg 26.7-34.0 [facility] MCHC Auto (RBC) [Mass/Vol]on 12-22-2023 MCHC (RBC) [Mass/Vol] 30.8 g/dL 29.9-35.2 [facility] MCV Auto (RBC) [Entitic vol] on 12-22-2023 MCV (RBC) [Entitic vol] 90.4 fL 81.0-99.0 [facility] Monocytes Auto (Bld) [#/Vol] on 12-22-2023 Monocytes (Bld) [#/Vol] 0.3 10 3/uL 0.3-0.8 [facility] Monocytes/100 WBC Auto (Bld) on 12-22-2023 Monocytes/100 WBC (Bld) 8.1 % 1.7-12.0 [facility] Neutrophils Auto (Bld) [#/Vo l]on 12-22-2023 Neutrophils (Bld) [#/Vol] 3.1 10 3/uL 1.4-6.5 [facility] Neutrophils/100 WBC Auto (Bl d)on 12-22-2023 Neutrophils/100 WBC (Bld) 73.0 % 43.0-75.0 [facility] No Panel Informationon 12-21 Eosinophils # (Auto) 0.0 10 3/uL 0.0-0.7 [facility] Folate 8.60 ng/mL 8.60-58.90 [facility] Immature Granulocyte # (Auto) 0.01 10 3/uL 0.00-0.03 [facility] Platelet mean volume Auto (B ld) [Entitic vol]on 12-22-2023 Platelet mean volume (Bld) [Entitic vol] 10.1 fL 9.5-13.5 [facility] Platelets Auto (Bld) [#/Vol] on 12-22-2023 Platelets (Bld) [#/Vol] 115 10 3/uL Low 150-450 [facility] RBC Auto (Bld) [#/Vol]on RBC (Bld) [#/Vol] 4.71 10 6/uL 4.20-5.40 [facility] Serum or plasma albumin/glob ulin mass ratioon 12-22-2023 Albumin/Globulin [Mass ratio] 1.2 {ratio} [facility] Serum or plasma anion gap de terminationon 12-22-2023 Anion gap [Moles/Vol] 13.9 mmol/L [facility] Capillary blood glucose juan urement by glucometer (mass/volume)Ordered By: Lisa Rubalcava on 12-05-2023 Glucose [Mass/Vol] 98 mg/dL Normal [facility] Comment on above: Random Glucose Refer ence Range is dependent on time and content of last meal. Glucose of more than 200 mg/dL in a nonstressed, ambulatory subject supports the diagnosis of Diabetes Mellitus. Result Comment: [place] Glucose Reference Range is dependent on time and content of last meal. Glucose of more than 200 mg/dL in a nonstressed, ambulatory subject supports the diagnosis of Diabetes Mellitus. Performed By: #### G LULS #### Point of Care testing , Glucose Poct Glucometerson 0 12-05-2023 Commemt1 Glu2: Cleaned Meter Normal [facility] Comment on above: Result Comment: PERF ORMED BY: [facility] [address] [place] [address] PATHOLOGIST STILL PUMP OPERATOR HUI NORTH M.D. Performed By: #### G LULS #### Point of Care testing , Yoan 12-05-2023 L Specimen: [id number] Received: 12/05/23 Status: WAN Beasley Num: [id number] Spec Type: Surgical Subm Dr: Lisa Rubalcava DO Tissues: A Colon Biopsy (SIGMOID POLYP) Procedures: HE/2, Gross/Micro L4 Age/ Patient Sex Location Account Attending Physician VetoMelony 58/F [id number] Lisa Rubalcava DO SPEC NUM: [id number] RECD: 12/05/23 STATUS: WAN BEASLEY NUM: [id number] MANGO: 12/05/23- SUBM DR: Lisa Rubalcava DO ENTERED: 12/05/[address] [facility] [address]: SPEC TYPE: Surgical DEPT: S ORDERED: HE/2, Gross/Micro L4 ORDERED: HE/2, Gross/Micro L4 Pathological Diagnosis Colon, 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 The specimen is trisected and entirely submitted in A1. CPT Codes 03763 -------- -------- Specimen: [id number] Received: 12/05/23 Status: WAN Rodriguezcan Num: [id number] Spec Type: Surgical Subm Dr: Lisa Rubalcava DO Tissues: A Colon Biopsy (SIGMOID POLYP) Procedures: Charli GALLARDO/John L4 -------- Patient: VetoMelony [id number] (Continued) -------- Signed (signature on file) Ugo Brandt Jr., MD 12/06/23 140 Normal [facility] No Panel InformationOrdered By: Lisa Rubalcava on 12-05-2023 Bedside Glucose Comment Glu2: cleaned meter [facility] Estimated glomerular filtrat ion rate (GFR) non- Americanon 11-15-2023 GFR/1.73 sq M.predicted among non-blacks MDRD (S/P/Bld) [Vol rate/Area] 52 mL/min/{1.73_m2} Low >=60 [facility] Globulin Calc (S) [Mass/Vol] on 11-15-2023 Globulin (S) [Mass/Vol] 3.5 g/dL F [facility] Laboratory - Chemistry and C hemistry - challengeon 11-15-2023 Albumin [Mass/Vol] 3.9 g/dL 3.4-5.0 [facility] ALP [Catalytic activity/Vol] 91 U/L 46-116 [facility] ALT [Catalytic activity/Vol] 44 U/L 14-59 [facility] AST [Catalytic activity/Vol] 40 U/L High 15-37 [facility] Bilirubin [Mass/Vol] 0.4 mg/dL 0.2-1.0 [facility] Calcium [Mass/Vol] 9.3 mg/dL 8.5-10.1 [facility] Chloride [Moles/Vol] 110 mmol/L High 98-107 [facility] CO2 [Moles/Vol] 26.2 mmol/L 21.0-32.0 [facility] Creatinine [Mass/Vol] 1.07 mg/dL High 0.55-1.02 [facility] GFR/1.73 sq M.predicted MDRD (S/P/Bld) [Vol rate/Area] mL/min/{1.73_m2} >=60 [facility] Glucose [Mass/Vol] 127 mg/dL High 74-106 [facility] Potassium [Moles/Vol] 4.7 mmol/L 3.5-5.1 [facility] Protein [Mass/Vol] 7.4 g/dL 6.4-8.2 [facility] Sodium [Moles/Vol] 145 mmol/L 136-145 [facility] Urea nitrogen [Mass/Vol] 12.0 mg/dL 7.0-18.0 [facility] Urea nitrogen/Creatinine [Mass ratio] 11.2 mg/mg [facility] Serum or plasma albumin/glob ulin mass ratioon 11-15-2023 Albumin/Globulin [Mass ratio] 1.1 {ratio} [facility] Serum or plasma anion gap de terminationon 11-15-2023 Anion gap [Moles/Vol] 13.5 mmol/L [facility] Cholesterol in LDL Calc [Mas s/Vol]on 09-26-2023 Cholesterol in LDL [Mass/Vol] 31.0 mg/dL [facility] Comment on above: <100 mg/dl [id number] 0-129 mg/dl NEAR OR ABOVE [id number] mg/dl BORDERLINE [id number] mg/dl HIGH>190 mg/dl VERY HIGH Cholesterol in VLDL Calc [Ma ss/Vol]on 09-26-2023 Cholesterol in VLDL [Mass/Vol] 47.8 mg/dL [facility] Estimated glomerular filtrat ion rate (GFR) non- Americanon 09-26-2023 GFR/1.73 sq M.predicted among non-blacks MDRD (S/P/Bld) [Vol rate/Area] mL/min/{1.73_m2} >=60 [facility] Glucose mean value [Mass/vol ume] in Blood Estimated from glycated hemoglobinon 09-26-2023 Average glucose Estimated from glycated hemoglobin (Bld) [Mass/Vol] 189 mg/dL [facility] Laboratory - Chemistry and C hemistry - challengeon 09-26-2023 Cholesterol [Mass/Vol] 120 mg/dL <=200 [facility] Cholesterol in HDL [Mass/Vol] 42 mg/dL 40-60 [facility] Comment on above: > or =60 mg/dl - LOW CARDIOVASCULAR RISK<40 mg/dl - HIGH CARDIOVASCULAR RISK Creatinine [Mass/Vol] 0.89 mg/dL 0.55-1.02 [facility] GFR/1.73 sq M.predicted MDRD (S/P/Bld) [Vol rate/Area] mL/min/{1.73_m2} >=60 [facility] Glucose [Mass/Vol] 182 mg/dL High 74-106 [facility] Triglyceride [Mass/Vol] 239 mg/dL High <=150 [facility] TSH Qn 2.178 m[IU]/L 0.358-3.740 [facility] Laboratory - Hematology and Cell countson 09-26-2023 HbA1c (Bld) [Mass fraction] 8.2 % High 4.5-6.2 [facility] Comment on above: ADA RECOMMENDED LIMI T 4.0 - 6.0ADA THERAPEUTIC TARGET < 7.0ACTION SUGGESTED> 7.0 No Panel Informationon 09-25 [place] Level 0.7 mmol/L 0.5-1.2 [facility] Comment on above: A concentration of 0 .5-0.8 mmol/L is advised for long-termuse; concentrations of up to 1.2 mmol/L may be necessaryduring acute treatment. Detection Limit = 0.1 <0.1 indicates None DetectedPerformed at: [facility] [id number] Director: Wojciech Farah PhD, Phone: [phone] Serum or plasma total choles terol/high density lipoprotein (HDL) cholesterol mass alix 09-26-2023 Cholesterol.total/Choles terol in HDL [Mass ratio] 2.9 {ratio} [facility] Comment on above: 3.3 - 4.4 LOW RISK4. 4 - 7.1 AVERAGE RISK7.1 - 11.0 MODERATE RISK>11.0 HIGH RISK Yoan 08-29-2023 L Specimen: [id number] Received: 08/29/23 Status: WAN Beasley Num: [id number] Spec Type: Surgical Subm Dr: Geraldo García DO Tissues: A Breast Biopsy/Mass Not Requiring Micro Eval of Margins (RE-EXC POST MARGIN L Procedures: HE/9, Gross/Micro L4, AE1-AE3/3 Age/ Patient Sex Location Account Attending Physician Melony Manley 58/F ND [id number] Geraldo García DO SPEC NUM: [id number] RECD: 08/29/23 STATUS: WAN BEASLEY NUM: [id number] MANGO: 08/29/[address]: Geraldo García DO ENTERED: 08/29/[address]: SPEC TYPE: Surgical DEPT: S ORDERED: HE/9, Gross/Micro L4, AE1-AE3/3 ORDERED: HE/9, Gross/Micro L4, AE1-AE3/3 Pathological Diagnosis Left breast cancer posterior margin, reexcision: -Negative for residual malignancy -Moderate postbiopsy change -Incidental 1 small focus of atypical adenosis, also very away from margin -AE1/3 immunostain with provided control are also examined on A4, A5, and A6, supporting the above interpretation Gross Description The specimen is received in formalin, labeled with the patient's name and left breast reexcision posterior margin . Received in formalin is an oriented portion of yellow-ram, lobulated fibroadipose tissue oriented by the surgeon with three sutures, designated as superior-short, medial-middle, lateral-long. The specimen measures 2.3 cm superior to inferior, 0.8 cm anterior to posterior, 3.1 cm medial to lateral and weighs 5.2 g. There is a plastic cylindrical biopsy clip embedded within the anterior aspect of the specimen which measures 1.7 x 1.7 x 0.3 cm, appearing to be embedded within a possible previous biopsy cavity measuring 1.6 x 1.5 cm. The biopsy clip is removed. The specimen is inked using the standard inked protocol as follows: Superior-red, inferior-blue, medial-yellow, lateral- orange, anterior-green, posterior-black. Sectioning into 9 slabs reveals unremarkable ram- pink to yellow breast parenchyma with a 0.7 x 0.5 cm focally dark pink area within slabs abutting the posterior margin and coming to within 0.3 cm of the inferior margin, 1.0 cm of the superior margin, 0.2 cm of the anterior margin. The specimen is entirely submitted as follows: -------- Specimen: [id number] Received: 08/29/23 Status: WAN Beasley Num: [id number] Spec Type: Surgical Subm Dr: Geraldo García DO Tissues: A Breast Biopsy/Mass Not Requiring Micro Eval of Margins (RE-EXC POST MARGIN L Procedures: , Gross/Micro L4, AE1-AE3/3 -------- Patient: Melony Manley [id number] (Continued) -------- Specimen: [id number] Received: 08/29/23 (Continued) Gross Description (Continued) Signed (signature on file) Nathaniel Gillette MD 08/31/23 1126 -------- Specimen: [id number] Received: 08/29/23 Status: WAN Gale Num: [id number] Spec Type: Surgical Subm Dr: Geraldo García DO Tissues: A Breast Biopsy/Mass Not Requiring Micro Eval of Margins (RE-EXC POST MARGIN L Procedures: , Gross/Micro L4, AE1-AE3/3 -------- Patient: Melony Manley [id number] (Continued) -------- Specimen: [id number] Received: 08/29/23-1230 (Continued) Gross Description (Continued) A1: Slab #1 (medial margin) A2: Slab #2 A3: Slab #3 A4: Slab #4 A5: Slab #5 A6: Slab #6 A7: Slab #7 A8: Slab #8 A9: Slab #9 (lateral margin) Collection time: 08/29/2023 at 1210 Time in formalin: 08/29/2023 at 1250 Time at gross: 08/29/2023 at 1808 Gross photos are included. Clinical history: Left breast cancer, reexcision posterior margin left breast TW CPT Codes [id number] LUMP WITH BIOPSY CLIP AND SUTURES LUMP WITH BIOPSY CLIP AND SUTURES -------- -------- Specimen: [id number] Received: 08/29/23 Status: WAN Beasley Num: [id number] Spec Type: Surgical Subm Dr: Geraldo García, Tissues: A Breast Biopsy/Mass Not Requiring Micro Eval of Margins (RE-EXC POST MARGIN L Procedures: HE/9, Gross/Micro L4, AE1-AE3/3 -------- Patient: Melony Manley [id number] (Continued) (more content not included)... Normal [facility] Automated basophil %Ordered By: Ibrahima Chand on 08-01-2023 Basophils/100 WBC (Bld) 0.5 % Normal . [facility] Comment on above: Performed By: #### C BC, BMP #### [facility] [address] Automated basophil countOrde red By: Ibrahima Chand on 08-01-2023 Basophils (Bld) [#/Vol] 0.0 10*3/uL Normal 0.0-0.2 [facility] Comment on above: Result Comment: PERF ORMED BY: [facility] [address] [place] [address] PATHOLOGIST STILL PUMP OPERATOR HUI NORTH M.D. Performed By: #### C BC, BMP #### [address] Automated blood monocyte cou ntOrdered By: Ibrahima Chand on 08-01-2023 Monocytes (Bld) [#/Vol] 0.4 10*3/uL Normal 0.0-0.8 [facility] Comment on above: Performed By: #### C BC, BMP #### [address] Automated eosinophil %Ordere d By: Ibrahima Chand on 08-01-2023 Eosinophils/100 WBC (Bld) 0.1 % Normal . [facility] Comment on above: Performed By: #### C BC, BMP #### [address] Automated eosinophil countOr dered By: Ibrahima Chand on 08-01-2023 Eosinophils (Bld) [#/Vol] 0.0 10*3/uL Normal 0.0-0.45 [facility] Comment on above: Performed By: #### C BC, BMP #### [address] Automated monocyte %Ordered By: Ibrahima Chand on 08-01-2023 Monocytes/100 WBC (Bld) 7.1 % Normal . [facility] Comment on above: Performed By: #### C BC, BMP #### [address] Automated neutrophil %Ordere d By: Ibrahima Maciasain on 08-01-2023 Neutrophils/100 WBC (Bld) 73.1 % Normal . [facility] Comment on above: Performed By: #### C BC, BMP #### [address] Basic Metabolic Panelon 07-07 Anion gap [Moles/Vol] Not performed Normal 6.0-15.0 [facility] Comment on above: Performed By: #### C BC, BMP #### [address] Creatinine Clr Calc Pharmacy 75.96 Normal [facility] Comment on above: Result Comment: PERF ORMED BY: [place] [address] PATHOLOGIST STILL PUMP OPERATOR HUI NORTH M.D. Performed By: #### C BC, BMP #### [address] GFR/1.73 sq M.predicted MDRD (S/P/Bld) [Vol rate/Area] mL/min/{1.73_m2} Normal [facility] Comment on above: Performed By: #### C BC, BMP #### [address] Potassium Normal 3.5-5.1 [facility] Comment on above: Result Comment: Spec imen hemolyzed, redraw requested Performed By: #### C BC, BMP #### [place] [address] [place] Calcium [Mass/volume] in Ser um or PlasmaOrdered By: Ibrahima Chand on 08-01-2023 Calcium [Mass/Vol] 9.2 mg/dL Normal 8.6-10.3 [facility] Comment on above: Performed By: #### C BC, BMP #### [address] Carbon dioxide, total [Moles /volume] in Serum or PlasmaOrdered By: Ibrahima Chand on 08-01-2023 CO2 [Moles/Vol] 25.7 mmol/L Normal 21.0-31.0 [facility] Comment on above: Performed By: #### C BC, BMP #### [place] [address] [place] Chloride [Moles/volume] in S cristi or PlasmaOrdered By: Ibrahima Chand on 08-01-2023 Chloride [Moles/Vol] 106 mmol/L Normal 98-107 [facility] Comment on above: Performed By: #### C BC, BMP #### [address] Complete Blood Count Auto Di ffon 08-01-2023 Mean Corpuscular HGB Conc 32.5 g/dL Normal 32.0-35.0 [facility] Comment on above: Performed By: #### C BC, BMP #### [address] NRBC% 0.1 /100{WBC} Normal 0-0.5 [facility] Comment on above: Performed By: #### C BC, BMP #### [address] Creatinine [Mass/volume] in Serum or PlasmaOrdered By: Ibrahima Chand on 08-01-2023 Creatinine [Mass/Vol] 0.79 mg/dL Normal 0.60-1.20 [facility] Comment on above: Performed By: #### C BC, BMP #### [address] Erythrocyte distribution wid th [Ratio] by Automated countOrdered By: Ibrahima Chand on 08-01-2023 Erythrocyte distribution width (RBC) [Ratio] 14.7 % Normal 11.9-15.3 [facility] Comment on above: Performed By: #### C CARLEEN, BMP #### [address] Erythrocytes [#/volume] in B lood by Automated countOrdered By: Ibrahima Chand on 08-01-2023 RBC (Bld) [#/Vol] 5.07 10*6/uL High 3.60-5.00 [facility] Comment on above: Performed By: #### C BC, BMP #### [address] Glucose [Mass/volume] in Ser um or PlasmaOrdered By: Ibrahima Chand on 08-01-2023 Glucose [Mass/Vol] 157 mg/dL High 70-100 [facility] Comment on above: ADA recommended refe rence rangeRandom Glucose Reference Range is dependent on time and content of last meal. Glucose of more than 200 mg/dL in a nonstressed, ambulatory subject supports the diagnosis of Diabetes Mellitus. Result Comment: [place] om Glucose Reference Range is dependent on time and content of last meal. Glucose of more than 200 mg/dL in a nonstressed, ambulatory subject supports the diagnosis of Diabetes Mellitus. ADA recommended reference range Performed By: #### C BC, BMP #### [address] Hematocrit [Volume Fraction] of Blood by Automated countOrdered By: Ibrahima Chand on 08-01-2023 Hematocrit (Bld) [Volume fraction] 43.1 % Normal 34.0-46.4 [facility] Comment on above: Performed By: #### C BC, BMP #### [facility] [address] [place] [address] Hemoglobin [Mass/volume] in BloodOrdered By: Ibrahima Chand on 08-01-2023 Hemoglobin (Bld) [Mass/Vol] 14.0 g/dL Normal 11.8-15.4 [facility] Comment on above: Performed By: #### C BC, BMP #### [facility] [address] [place] [address] Yoan 08-01-2023 L Specimen: Received: 08/01/23 Status: WAN Beasley Num: [id number] Spec Type: Surgical Subm Dr: Geraldo García DO Tissues: A Breast Rives Lymph Node (LT SN) B Breast Lumpectmy/Mass - Requiring Micros Eval of Margins (LT BREAST) Procedures: HE/21, Gross/Micro L5/2, Frozen Section, Froz Sec, Add, E CADHERIN/2, IHC First AB, FS HE/4 Age/ Patient Sex Location Account Attending Physician Melony Manley 58/F ND [id number] Geraldo García DO SPEC NUM: RECD: 08/01/23 STATUS: WAN BEASLEY NUM: [id number] MANGO: 08/01/[address]: Geraldo García DO ENTERED: 08/01/[address]: SPEC TYPE: Surgical DEPT: S ORDERED: HE/21, Gross/Micro L5/2, Frozen Section, Froz Sec, Add, E CADHERIN/2, IHC First AB, FS HE/4 ORDERED: HE/21, Gross/Micro L5/2, Frozen Section, Paul Calixto, Add, E CADHERIN/2, IHC First AB, FS HE/4 Supplemental Report Addendum 1 Entered: 10/10/23-1730 Oncotype DX breast recurrence score report: Recurrence score result: 17 Distant recurrence risk at 9 years: 15% Group average absolute chemotherapy benefit: No apparent benefit. Please see attached report for details. Addendum Signed (signature on file) Garfield Gordillo MD 10/10/231730 -------- -------- Specimen: [id number] Received: 08/01/23-1200 Status: WAN Beasley Num: [id number] Spec Type: Surgical Subm Dr: Geraldo García, DO Tissues: A Breast Rives Lymph Node (LT SN) B Breast Lumpectmy/Mass - Requiring Micros Eval of Margins (LT BREAST) Procedures: HE/21, Gross/Micro L5/2, Frozen Section, Paul Calixto, Add, E CADHERIN/2, IHC First AB, FS HE/4 -------- Patient: Melony Manley [id number] (Continued) -------- Specimen: [id number] Received: 08/01/23 (Continued) Signed (signature on file) Garfield Gordillo MD 08/08/23 1730 -------- Specimen: [id number] Received: 08/01/23 Status: WAN Beasley Num: [id number] Spec Type: Surgical Subm Dr: Geraldo García, Tissues: A Breast Rives Lymph Node (LT SN) B Breast Lumpectmy/Mass - Requiring Micros Eval of Margins (LT BREAST) Procedures: HE/21, Gross/Micro L5/2, Frozen Section, Paul Sec, Add, E CADHERIN/2, IHC First AB, FS HE/4 -------- Patient: Melony Manley [id number] (Continued) -------- Specimen: [id number] Received: 08/01/23-1200 (Continued) Pathological Diagnosis A. Rives node, left axilla, biopsy: Metastatic carcinoma to 1 lymph node, out of 4 lymph nodes identified (1/4) B. 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 CAP CANCER CASE SUMMARY SPECIMEN Procedure: Excision (less than total mastectomy) Specimen Laterality: Left TUMOR Histologic Type: Invasive carcinoma of no special type (ductal) Glandular (Acinar) / Tubular Differentiation: Score 2 Nuclear Pleomorphism: Score 2 Mitotic Rate: Score 2 Overall Grade: Grade 2 (scores of 6 or 7) Tumor Size: Greatest dimension of largest invasive focus (Millimeters) - 8 mm Ductal Carcinoma In Situ (DCIS): Present Lymphatic and / or Vascular Invasion: Not identified Treatment Effect in the Breast: No known presurgical therapy MARGINS Margin Status for Invasive Carcinoma: Invasive carcinoma present at margin Margin(s) Involved by Invasive Carcinoma: Posterior - focal Margin Status for DCIS: All margins negative for DCIS Distance from DCIS to Closest Margin: Less than - 1 mm Closest Margin(s) to DCIS: Posterior REGIONAL LYMPH NODES Regional Lymph Node Status: Tumor present in regional lymph node(s) Number of Lymph Nodes with Macrometastases - 1 Number of Lymph Nodes with Micrometastases - 0 Size of Largest Manjit Metastatic Deposit - 4 mm Extranodal Extension - Present, 2 mm or less Total Number of Lymph Nodes Examined (sentinel and non-sentinel): 4 Number of Rives Nodes Examined: 4 pTNM CLASSIFICATION (AJCC 8th Edition) -------- Specimen: [id number] Received: 08/01/23 Status: WAN Beasley Num: [id number] Spec Type: Surgical Subm Dr: Geraldo García, DO Tissues: A Breast Rives Lymph Node (LT SN) B Breast Lumpectmy/Mass - Requiring Micros Eval of Margins (LT BREAST (more content not included)... Normal [facility] Leukocytes [#/volume] correc cori for nucleated erythrocytes in Blood by Automated counOrdered By: Ibrahima Chand on 08-01-2023 WBC corrected for nucl RBC Auto (Bld) [#/Vol] 5.5 10*3/uL 3.8-11.6 [facility] Leukocytes [#/volume] in Blo od by Automated countOrdered By: Ibrahima Chand on 08-01-2023 WBC (Bld) [#/Vol] 5.5 10*3/uL Normal 3.8-11.6 [facility] Comment on above: Performed By: #### C BC, BMP #### [facility] [address] [place] [address] [place] Lymphocytes [#/volume] in Bl ood by Automated countOrdered By: Ibrahima Chand on 08-01-2023 Lymphocytes (Bld) [#/Vol] 1.1 10*3/uL Normal 1.00-4.8 [facility] Comment on above: Performed By: #### C BC, BMP #### [facility] [address] [place] [address] [place] Lymphocytes/100 leukocytes i n Blood by Automated countOrdered By: Ibrahima Chand on 08-01-2023 Lymphocytes/100 WBC (Bld) 19.2 % Normal . [facility] Comment on above: Performed By: #### C BC, BMP #### [facility] [address] [place] [address] [place] MCH [Entitic mass] by Automa cori countOrdered By: Ibrahima Chand on 08-01-2023 MCH (RBC) [Entitic mass] 27.6 pg Normal 24.7-34.3 [facility] Comment on above: Performed By: #### C BC, BMP #### [facility] [address] [place], [place] [id number] [facility] MCHC Auto (RBC) [Mass/Vol]Or dered By: Ibrahima Chand on 08-01-2023 MCHC (RBC) [Mass/Vol] 32.5 g/dL 32.0-35.0 [facility] MCV [Entitic volume] by Auto mated countOrdered By: Ibrahima Chand on 08-01-2023 MCV (RBC) [Entitic vol] 84.9 fL Normal 80-100 [facility] Comment on above: Performed By: #### C BC, BMP #### [facility] [address] [place] [address] MM surgical specimen LTon MM surgical specimen LT [facility] [place] [address] Mammography Report Signed Patient: Melony Manley MR#: [id number] : 1965 Acct:[id number] Age/Sex: 58 / F ADM Date: 08/01/23 Loc: [place] Room: Type: [facility] Attending Dr: Geraldo García DO Copies to: DO Susan Alexandre MD Ordering Provider: Geraldo García DO Date of Service: 08/01/23 MM/MM surgical specimen LT: LEFT BREAST SPECIMEN IN OR WITH RADIOACTIVE SEED Fluoroscopic assessment of left lumpectomy surgical specimen HISTORY: Evaluate left lumpectomy 1 Image The radiation seed identified within the specimen. MM/MM surgical specimen LT IMPRESSION: Resection of the radiation. Impression dictated by: Sandro Cintron M.D.08/01/2023 1:27 PM Dictation Location: [place] [address] Transcribed By: [facility] 08/01/23 1327 Dictated By: Sandro Cintron DO 08/01/23 1326 Signed By: 08/01/23 1327 Normal [facility] NM sentinel node w imagingon 08-01-2023 NM sentinel node w imaging [facility] [place] [address] Nuclear Medicine Report Signed Patient: Melony Manley MR#: [id number] : 1965 Acct:[id number] Age/Sex: 58 / F ADM Date: 08/01/23 Loc: [place] Room: Type: [facility] Attending Dr: Geraldo García DO Copies to: DO Mateusz Alexandre Jr, DO Ordering Provider: Geraldo García DO Date of Service: 08/01/23 NM/NM sentinel node w imaging: Left Breast Cancer Nuclear medicine Rives node lymphoscintigraphy. Reason for exam: Left breast cancer. TECHNIQUE: 0.498 mCi of technetium 99m sulfur colloid was injected into the left breast and delayed images were obtained. FINDINGS: Delayed images demonstrate migration of the radiotracer to the left axilla. NM/NM sentinel node w imaging IMPRESSION: Migration of radiotracer seen to the left axilla. Impression dictated by: Mateusz Jamison Jr., D.OBeatriz08/01/2023 1:51 PM Dictation Location: [place] [address] Transcribed By: [facility] 08/01/23 1351 Dictated By: Mateusz Jamison Jr, DO 08/01/23 1350 Signed By: 08/01/23 1351 Normal [facility] Neutrophils [#/volume] in Bl ood by Automated countOrdered By: Ibrahima Chand on 08-01-2023 Neutrophils (Bld) [#/Vol] 4.0 10*3/uL Normal 1.8-7.7 [facility] Comment on above: Performed By: #### C BC, BMP #### [facility] [address] [place] [address] No Panel InformationOrdered By: Ibrahima Chand on 08-01-2023 Estimated GFR (CKD-EPI) > 60.0 mL/Min [facility] Creatinine Clearance (Chem 75.96 [facility] Nucleated erythrocytes [Pres ence] in Blood by Automated countOrdered By: Ibrahima Chand on 08-01-2023 Nucleated RBC Auto Ql (Bld) 0.1 /100{WBC} 0-0.5 [facility] Platelet mean volume [Entiti c volume] in Blood by Automated countOrdered By: Ibrahima Chand on 08-01-2023 Platelet mean volume (Bld) [Entitic vol] 8.3 fL Normal 6.3-10.7 [facility] Comment on above: Performed By: #### C BC, BMP #### [facility] [address] Platelets [#/volume] in Bloo d by Automated countOrdered By: Ibrahima Chand on 08-01-2023 Platelets (Bld) [#/Vol] 131 10*3/uL Low 150-450 [facility] Comment on above: Performed By: #### C BC, BMP #### [address] Potassium [Moles/volume] in Serum or PlasmaOrdered By: Geraldo García on 08-01-2023 Potassium [Moles/Vol] 4.5 mmol/L Normal 3.5-5.1 [facility] Comment on above: Order Comment: Angelo emmanuel send a ordnance truck installation supervisor per Christin in Surg Prep. MLG Result Comment: PERF ORMED BY: [place] [address] PATHOLOGIST STILL PUMP OPERATOR HUI NORTH M.D. Performed By: #### R GREY Cruz #### [address] Serum or plasma anion gap de terminationOrdered By: Ibrahima Chand on 08-01-2023 Anion gap [Moles/Vol] TNP [facility] Comment on above: Test not performed Sodium [Moles/volume] in Ser um or PlasmaOrdered By: Ibrahima Chand on 08-01-2023 Sodium [Moles/Vol] 142 mmol/L Normal 136-145 [facility] Comment on above: Performed By: #### C BC, BMP #### [place] [address] [place] Urea nitrogen [Mass/volume] in Serum or PlasmaOrdered By: Ibrahima Chand on 08-01-2023 Urea nitrogen [Mass/Vol] 9 mg/dL Normal 7-25 [facility] Comment on above: Performed By: #### C BC, BMP #### [facility] [address] [id number] [place] MM needle loc LTon 4 MM needle loc LT [facility] Main [place] [address] [id number] Mammography Report Signed Patient: Melony Manley MR#: [id number] : 1965 Acct:[id number] Age/Sex: 58 / F ADM Date: 07/24/23 Loc: [place] Room: Type: PRE [facility] Attending Dr: Geraldo García DO Copies to: DO Susan Alexandre MD Ordering Provider: Geraldo Garíca DO Date of Service: 07/31/23 MM/MM needle loc LT: LEFT BREAST RADIOACTIVE SEED LOC LEFT BREAST MAMMOGRAPHIC SEED LOCALIZATION CLINICAL DATA: Left breast cancer Patient's previous imaging from August 01, 2022 through May 16, 2023 was reviewed. The procedure was discussed with patient and consent was obtained. Patient was placed in mediolateral compression and a content editor view of the inferior left breast was obtained. The asymmetry and associated calcification at the inferior central breast was identified. Following sterile preparation and local anesthesia with lidocaine, a spinal needle loaded with a ration seed (0.174 mCi iodine 125) was advanced into the breast from a medial approach. Following documentation of needle position in the craniocaudal plane, the seed was deployed. On the final images, the seed is adjacent to the residual calcifications. The biopsy marking clip migrated back along the tract of the of the needle at the time the stereotactic biopsy and is several centimeters superior to the biopsy site. The biopsy marking clip will therefore not be present within the lumpectomy specimen. MM/MM needle loc LT IMPRESSION: STATUS POST STEREOTACTIC LOCALIZATION OF RESIDUAL CALCIFICATIONS AT THE INFERIOR CENTRAL LEFT BREAST. Impression dictated by: Althea Tobar M.D.07/31/2023 12:53 PM Dictation Location: [facility] Transcribed By: JONA 07/31/23 1253 Dictated By: Althea Tobar MD 07/31/23 1248 Signed By: 07/31/23 1253 Normal [facility] Human papilloma virus 16+18+ 31+33+35+39+45+51+52+56+58+59+66+68 DNA [Presence] in [place] 07-24-2023 HPV 16+18+31+33+35+39+45+51+ 52+56+58+59+66+68 DNA Probe+sig amp Ql (Cvx) Negative Negative [facility] Comment on above: This nucleic acid am plification test detects fourteen high-risk HPV types (16,18,31,33,35,39,45,51,52,56,58,59,66,68)without differentiation.Performed at: =G - [facility] [address] [id number] Director: Venus Acevedo MD, Phone: [phone] at: - [facility] [address] [id number] Director: Venus Acevedo MD, Phone: [phone] No Panel Informationon 07-23 HPV High Risk Other Comment Note . [facility] Comment on above: TESTS RESULT FLAG UN ITS REF RANGE LAB --DIAGNOSIS: 02 NEGATIVE FOR INTRAEPITHELIAL LESION OR MALIGNANCY.Specimen adequacy: 02 Satisfactory for evaluation. Endocervical and/or squamous metaplastic cells (endocervical component) are present.Performed by: Mara Corley Esol Teacher Assistant (ASCP). 02Note: Note 02 The Pap smear is a screening test designed to aid in the detection of premalignant and malignant conditions of the uterine cervix. It is not a diagnostic procedure and should not be used as the sole means of detecting cervical cancer. Both false-positive and false-negative reports do occur.Test Methodology: Note 02 This liquid based ThinPrep(R) pap test was screened with the use of an image guided system.HPV Genotype Reflex Note 02 Criteria not met, HPV Genotype not performed. --------- FLAG LEGEND: L-Low Normal,H-High Normal,LL-Alert Low,HH-Alert High <-Panic Low,>-Panic High,A-Abnormal,AA-Critical Abnormal -------Performed at:02 WB [facility] [address] [place] [address] Venus Acevedo MD, Reference Lab Test Patient Age Note . [facility] Comment on above: TESTS RESULT FLAG UN ITS REF RANGE LAB -- Clinician Provided Cytology Information Source.............Cervix;Endocervix No. of containers..01 ThinPrep VialAge Arslano DAVID Bailey... 30-65 - FLAG LEGEND: L-Low Normal,H-High Normal,LL-Alert Low,HH-Alert High <-Panic Low,>-Panic High,A-Abnormal,AA-Critical Abnormal -------Performed at:01 =G [facility] [address] [facility] [place] [address] Venus Acevedo MD, Automated basophil %Ordered By: Geraldo García on 07-19-2023 Basophils/100 WBC (Bld) 0.6 % Normal . [facility] Comment on above: Performed By: #### B MP, CBC #### [address] Automated basophil countOrde red By: Geraldo García on 07-19-2023 Basophils (Bld) [#/Vol] 0.0 10*3/uL Normal 0.0-0.2 [facility] Comment on above: Result Comment: PERF ORMED BY: [place] [address] PATHOLOGIST STILL PUMP OPERATOR HUI NORTH M.D. Performed By: #### B MP, CBC #### [address] Automated blood monocyte cou ntOrdered By: Geraldo García on 07-19-2023 Monocytes (Bld) [#/Vol] 0.3 10*3/uL Normal 0.0-0.8 [facility] Comment on above: Performed By: #### B MP, CBC #### [address] Automated eosinophil %Ordere d By: Geraldo García on 07-19-2023 Eosinophils/100 WBC (Bld) 0.0 % Normal . [facility] Comment on above: Performed By: #### B MP, CBC #### [address] Automated eosinophil countOr dered By: Geraldo García on 07-19-2023 Eosinophils (Bld) [#/Vol] 0.0 10*3/uL Normal 0.0-0.45 [facility] Comment on above: Performed By: #### B MP, CBC #### [address] Automated monocyte %Ordered By: Geraldo García on 07-19-2023 Monocytes/100 WBC (Bld) 6.6 % Normal . [facility] Comment on above: Performed By: #### B MP, CBC #### [address] Automated neutrophil %Ordere d By: Geraldo García on 07-19-2023 Neutrophils/100 WBC (Bld) 77.1 % Normal . [facility] Comment on above: Performed By: #### B MP, CBC #### [address] Basic Metabolic Panelon 07-06 GFR/1.73 sq M.predicted MDRD (S/P/Bld) [Vol rate/Area] mL/min/{1.73_m2} Normal [facility] Comment on above: Performed By: #### B MP, CBC #### [place] [address] [place] Calcium [Mass/volume] in Ser um or PlasmaOrdered By: Geraldo García on 07-19-2023 Calcium [Mass/Vol] 9.5 mg/dL Normal 8.6-10.3 [facility] Comment on above: Result Comment: PERF ORMED BY: [place] [address] PATHOLOGIST STILL PUMP OPERATOR HUI NORTH M.D. Performed By: #### B MP, CBC #### [place] [address] [place] Carbon dioxide, total [Moles /volume] in Serum or PlasmaOrdered By: Geraldo García on 07-19-2023 CO2 [Moles/Vol] 27.6 mmol/L Normal 21.0-31.0 [facility] Comment on above: Performed By: #### B MP, CBC #### [place] [address] [place] Chloride [Moles/volume] in S cristi or PlasmaOrdered By: Geraldo García on 07-19-2023 Chloride [Moles/Vol] 101 mmol/L Normal 98-107 [facility] Comment on above: Performed By: #### B MP, CBC #### [address] Complete Blood Count Auto Di ffon 07-19-2023 Mean Corpuscular HGB Conc 33.1 g/dL Normal 32.0-35.0 [facility] Comment on above: Performed By: #### B MP, CBC #### [address] NRBC% 0.1 /100{WBC} Normal 0-0.5 [facility] Comment on above: Performed By: #### B MP, CBC #### [address] Creatinine [Mass/volume] in Serum or PlasmaOrdered By: Geraldo García on 07-19-2023 Creatinine [Mass/Vol] 0.90 mg/dL Normal 0.60-1.20 [facility] Comment on above: Performed By: #### B MP, CBC #### [address] Erythrocyte distribution wid th [Ratio] by Automated countOrdered By: Geraldo García on 07-19-2023 Erythrocyte distribution width (RBC) [Ratio] 14.1 % Normal 11.9-15.3 [facility] Comment on above: Performed By: #### B MP, CBC #### [facility] [address] [place] [address] [place] Erythrocytes [#/volume] in B lood by Automated countOrdered By: Geraldo García on 07-19-2023 RBC (Bld) [#/Vol] 4.69 10*6/uL Normal 3.60-5.00 [facility] Comment on above: Performed By: #### B MP, CBC #### [address] Glucose [Mass/volume] in Ser um or PlasmaOrdered By: Geraldo García on 07-19-2023 Glucose [Mass/Vol] 333 mg/dL High 70-100 [facility] Comment on above: ADA recommended refe rence rangeRandom Glucose Reference Range is dependent on time and content of last meal. Glucose of more than 200 mg/dL in a nonstressed, ambulatory subject supports the diagnosis of Diabetes Mellitus. Result Comment: [place] om Glucose Reference Range is dependent on time and content of last meal. Glucose of more than 200 mg/dL in a nonstressed, ambulatory subject supports the diagnosis of Diabetes Mellitus. ADA recommended reference range Performed By: #### B MP, CBC #### [address] Hematocrit [Volume Fraction] of Blood by Automated countOrdered By: Geraldo García on 07-19-2023 Hematocrit (Bld) [Volume fraction] 39.2 % Normal 34.0-46.4 [facility] Comment on above: Performed By: #### B RIGOBERTO, CBC #### [place] [address] [place] Hemoglobin [Mass/volume] in BloodOrdered By: Geraldo García on 07-19-2023 Hemoglobin (Bld) [Mass/Vol] 13.0 g/dL Normal 11.8-15.4 [facility] Comment on above: Performed By: #### B RIGOBERTO, CBC #### [place] [address] [place] Leukocytes [#/volume] correc cori for nucleated erythrocytes in Blood by Automated counOrdered By: Geraldo García on 07-19-2023 WBC corrected for nucl RBC Auto (Bld) [#/Vol] 4.8 10*3/uL 3.8-11.6 [facility] Leukocytes [#/volume] in Blo od by Automated countOrdered By: Geraldo García on 07-19-2023 WBC (Bld) [#/Vol] 4.8 10*3/uL Normal 3.8-11.6 [facility] Comment on above: Performed By: #### B RIGOBERTO, CBC #### [place] [address] [place] Lymphocytes [#/volume] in Bl ood by Automated countOrdered By: Geraldo García on 07-19-2023 Lymphocytes (Bld) [#/Vol] 0.7 10*3/uL Low 1.00-4.8 [facility] Comment on above: Performed By: #### B MP, CBC #### [address] Lymphocytes/100 leukocytes i n Blood by Automated countOrdered By: Geraldo García on 07-19-2023 Lymphocytes/100 WBC (Bld) 15.7 % Normal . [facility] Comment on above: Performed By: #### B MP, CBC #### [address] MCH [Entitic mass] by Automa cori countOrdered By: Geraldo García on 07-19-2023 MCH (RBC) [Entitic mass] 27.7 pg Normal 24.7-34.3 [facility] Comment on above: Performed By: #### B MP, CBC #### [address] MCHC Auto (RBC) [Mass/Vol]Or dered By: Geraldo García on 07-19-2023 MCHC (RBC) [Mass/Vol] 33.1 g/dL 32.0-35.0 [facility] MCV [Entitic volume] by Auto mated countOrdered By: Geraldo García on 07-19-2023 MCV (RBC) [Entitic vol] 83.7 fL Normal 80-100 [facility] Comment on above: Performed By: #### B MP, CBC #### [place] [address] [place] Neutrophils [#/volume] in Bl ood by Automated countOrdered By: Geraldo García on 07-19-2023 Neutrophils (Bld) [#/Vol] 3.7 10*3/uL Normal 1.8-7.7 [facility] Comment on above: Performed By: #### B MP, CBC #### [facility] [address] No Panel InformationOrdered By: Geraldo García on 07-19-2023 Estimated GFR (CKD-EPI) > 60.0 mL/Min [facility] Creatinine Clearance (Chem N/A [facility] Nucleated erythrocytes [Pres ence] in Blood by Automated countOrdered By: Geraldo García on 07-19-2023 Nucleated RBC Auto Ql (Bld) 0.1 /100{WBC} 0-0.5 [facility] Platelet mean volume [Entiti c volume] in Blood by Automated countOrdered By: Geraldo García on 07-19-2023 Platelet mean volume (Bld) [Entitic vol] 8.4 fL Normal 6.3-10.7 [facility] Comment on above: Performed By: #### B MP, CBC #### [facility] [address] [place] [address] Platelets [#/volume] in Bloo d by Automated countOrdered By: Geraldo García on 07-19-2023 Platelets (Bld) [#/Vol] 127 10*3/uL Low 150-450 [facility] Comment on above: Performed By: #### B MP, CBC #### [facility] [address] [place] [address] Potassium [Moles/volume] in Serum or PlasmaOrdered By: Geraldo García on 07-19-2023 Potassium [Moles/Vol] 3.8 mmol/L Normal 3.5-5.1 [facility] Comment on above: Performed By: #### B MP, CBC #### [facility] [address] [place] [address] Serum or plasma anion gap de terminationOrdered By: Geraldo García on 07-19-2023 Anion gap [Moles/Vol] 12.2 mmol/L Normal 6.0-15.0 [facility] Comment on above: Performed By: #### B MP, CBC #### [facility] [address] [place] [address] [place] Sodium [Moles/volume] in Ser um or PlasmaOrdered By: Geraldo García on 07-19-2023 Sodium [Moles/Vol] 137 mmol/L Normal 136-145 [facility] Comment on above: Performed By: #### B MP, CBC #### [facility] [address] [id number] [facility] Urea nitrogen [Mass/volume] in Serum or PlasmaOrdered By: Geraldo García on 07-19-2023 Urea nitrogen [Mass/Vol] 12 mg/dL Normal 7-25 [facility] Comment on above: Performed By: #### B MP, CBC #### [facility] [address] [phone] [facility] US breast LT limitedon 07-11 US breast LT limited [facility] Main [place] [address] [place] [address] Ultrasound Report Signed Patient: Melony Manley MR#: [id number] : 1965 Acct:[id number] Age/Sex: 58 / F ADM Date: 07/12/23 Loc: [facility] Room: Type: [facility] Attending Dr: Geraldo García DO Ordering Provider: Geraldo García DO Date of Service: 07/12/23 US/US breast LT limited: R92.8 Copies to: Geraldo García DO LIMITED LEFT BREAST ULTRASOUND CLINICAL DATA: [...] Althea Tobar M.D.07/12/2023 2:30 PM Dictation Location: [facility] Tech: Sheyla Stewart Transcribed By: JONA 07/12/23 1430 Dictated By: Althea Tobar MD 07/12/23 1418 Signed By: 07/12/23 1430 Normal [facility] MRI BREAST BILATERAL W WO CO NTRASTon [...] Anthony Pichardo MD 06/30/[address] [facility] Yoan 05-16-2023 L - -------- Specimen: [id number] Received: 05/16/23 Status: WAN Beasley Num: [id number] Spec Type: Surgical Subm Dr: Geraldo García, DO Tissues: A BREAST CORE NO CALCS (LT BREAST TISSUE) Procedures: HE/Jose, Gross/Micro L4 -------- Age/ Patient Sex Location Account Attending Physician -------- Melony Manley/F [place] [id number] Geraldo García, DO -------- SPEC NUM: [id number] RECD: 05/16/23 STATUS: WAN REQ NUM: [id number] MANGO: 05/16/[address] [facility] [address]: Geraldo García DO ENTERED: 05/16/[address]: CARLTON TYPE: Surgical DEPT: S ORDERED: HE/2, Gross/Micro L4 ORDERED: HE/2, Gross/Micro L4 COMMENTS: @ Originally on account #[id number] Req #[id number] Pathological Diagnosis Left breast mass at 6:00 [...] [id number] Received: 05/16/23 Status: WAN Beasley Num: [id number] Spec Type: Surgical Subm Dr: Geraldo García DO Tissues: A BREAST CORE NO CALCS (LT BREAST TISSUE) Procedures: YUDY/Charli Garcia/John L4 -------- Patient: Melony Manley [id number] (Continued) -------- Specimen: [id number] Received: 05/16/23 (Continued) Gross Description (Continued) Signed (signature on file) Francis Zapata MD 05/17/23 1009 -------- Specimen: [id number] Received: 05/16/23 Status: WAN Beasley Num: [id number] Spec Type: Surgical Subm Dr: Geraldo García DO Tissues: A BREAST CORE NO CALCS (LT BREAST TISSUE) Procedures: HE/2, Gross/Micro L4 -------- Patient: Melony Manley [id number] (Continued) -------- Specimen: [id number] Received: 05/16/23 (Continued) Gross Description (Continued) formalin: 6 PM 05/16/2023. Cold Ischemia and Fixation Time meets the requirements specified in the latest version of the ASCO/CAP guidelines: Yes. Cold Ischemic Time: 0.08 Formalin Fixation Time: 7.42 Microscopic Description Two H E slides reviewed. The microscopic examination confirms the diagnosis. CPT Codes 38723 -------- -------- Specimen: [id number] Received: 05/16/23 Status: WAN Beasley Num: [id number] Spec Type: Surgical Subm Dr: Geraldo García DO Tissues: A BREAST CORE NO CALCS (LT BREAST TISSUE) Procedures: HE/2, Gross/Micro L4 -------- Patient: Melony Manley [id number] (Continued) -------- Signed (signature on file) Francis Zapata MD 05/17/23 1009 Normal [facility] US breast LT limitedon 05-16 [place] [address] Mammography Report Signed with Ronaldo Patient: Melony Manley MR#: [id number] : 1965 Acct:[id number] Age/Sex: 58 / F ADM Date: 04/28/23 Loc: [place] Room: Type: PRE [facility] Attending Dr: Geraldo García DO Copies to: DO Susan Alexandre MD Ordering Provider: Geraldo García DO Date of Service: 05/16/23 US/US breast LT limited: ABN. MAMM ([id number]) US/US extremity nonvascular: LEFT AXILLA ([id number]) US/US breast ndl core biopsy LT: ABN. MAMM ([id number]) MM/MM post biopsy LT w/CAD: POST U/S BX WITH CLIP ADDENDUM 1 Addendum for pathology: Ultrasound-guided biopsy 6:00 position 2 cm from the nipple: Focal fibroadenomatoid change. No in situ or invasive carcinoma identified. Finding is benign and concordant with imaging. Surgical/oncologic management of the patient's known cancer is recommended. Impression dictated by: Mateusz Jamison Jr., D.OBeatriz05/18/2023 9:20 AM Dictation Location: [facility]12 Addendum Dictated By: Mateusz Jamison Jr DO Addendum Signed By: 05/18/23919 Addendum Cosigned By: DD/ /31/918 TD/TT: 05/18/2303/31/920 ULTRASOUND GUIDED VACUUM-ASSISTED HOLOGIC ATEC SYSTEM CORE BIOPSIES OF THE LEFT BREAST: CLINICAL DATA: History of stereotactically biopsied breast cancer within the left breast. PROCEDURE: The patient was initially scheduled for a radioactive seed placement. The patient's outside images from [facility] were reviewed and discussed with the referring [...] cm from the nipple was performed by senior nuclear medicine technologist . The previously identified mass was [...] breast mass were performed using a 12-gauge [employer] vacuum-assisted core biopsy needle under ultrasound guidance. [...] Jamison Jr., D.O.05/16/2023 12:03 PM Dictation Location: [facility] Transcribed By: JONA 05/16/23 1203 Dictated By: Mateusz Jamison Jr, DO 05/16/23 1046 Signed By: 05/16/23 1203 Normal [facility] Automated basophil %Ordered By: Geraldo García on 05-02-2023 Basophils/100 WBC (Bld) 0.5 % Normal . [facility] Comment on above: Performed By: #### C CARLEEN, BMP #### [address] Automated basophil countOrde red By: Geraldo García on 05-02-2023 Basophils (Bld) [#/Vol] 0.0 10*3/uL Normal 0.0-0.2 [facility] Comment on above: Result Comment: PERF ORMED BY: [place] [address] PATHOLOGIST STILL PUMP OPERATOR HUI NORTH M.D. Performed By: #### C BC, BMP #### [address] Automated blood monocyte cou ntOrdered By: Geraldo García on 05-02-2023 Monocytes (Bld) [#/Vol] 0.4 10*3/uL Normal 0.0-0.8 [facility] Comment on above: Performed By: #### C BC, BMP #### [address] Automated eosinophil %Ordere d By: Geraldo García on 05-02-2023 Eosinophils/100 WBC (Bld) 0.0 % Normal . [facility] Comment on above: Performed By: #### C BC, BMP #### [address] Automated eosinophil countOr dered By: Geraldo García on 05-02-2023 Eosinophils (Bld) [#/Vol] 0.0 10*3/uL Normal 0.0-0.45 [facility] Comment on above: Performed By: #### C BC, BMP #### [address] Automated monocyte %Ordered By: Geraldo García on 05-02-2023 Monocytes/100 WBC (Bld) 6.5 % Normal . [facility] Comment on above: Performed By: #### C BC, BMP #### [address] Automated neutrophil %Ordere d By: Geraldo García on 05-02-2023 Neutrophils/100 WBC (Bld) 71.5 % Normal . [facility] Comment on above: Performed By: #### C BC, BMP #### [address] Basic Metabolic Panelon 04-08 GFR/1.73 sq M.predicted MDRD (S/P/Bld) [Vol rate/Area] mL/min/{1.73_m2} Normal [facility] Comment on above: Performed By: #### C BC, BMP #### [address] Calcium [Mass/volume] in Ser um or PlasmaOrdered By: Geraldo García on 05-02-2023 Calcium [Mass/Vol] 9.8 mg/dL Normal 8.6-10.3 [facility] Comment on above: Result Comment: PERF ORMED BY: [place] [address] PATHOLOGIST STILL PUMP OPERATOR HUI NORTH M.D. Performed By: #### C BC, BMP #### [address] Carbon dioxide, total [Moles /volume] in Serum or PlasmaOrdered By: Geraldo García on 05-02-2023 CO2 [Moles/Vol] 26.0 mmol/L Normal 21.0-31.0 [facility] Comment on above: Performed By: #### C BC, BMP #### [address] Chloride [Moles/volume] in S cristi or PlasmaOrdered By: Geraldo García on 05-02-2023 Chloride [Moles/Vol] 107 mmol/L Normal 98-107 [facility] Comment on above: Performed By: #### C BC, BMP #### [address] Complete Blood Count Auto Di ffon 05-02-2023 Mean Corpuscular HGB Conc 33.1 g/dL Normal 32.0-35.0 [facility] Comment on above: Performed By: #### C BC, BMP #### [address] NRBC% 0.0 /100{WBC} Normal 0-0.5 [facility] Comment on above: Performed By: #### C BC, BMP #### [address] Creatinine [Mass/volume] in Serum or PlasmaOrdered By: Geraldo García on 05-02-2023 Creatinine [Mass/Vol] 0.93 mg/dL Normal 0.60-1.20 [facility] Comment on above: Performed By: #### C BC, BMP #### [place] [address] [place] ECG 12 lead ECGon 05-02-2023 ECG 12 lead ECG [facility] Main [place] [address] [place] [address] Electrocardiograph Report Signed Patient: Melony Manley MR#: [id number] : 1965 Acct:[id number] Age/Sex: 58 / F ADM Date: 05/02/23 Loc: [place] Room: Type: [facility] Attending Dr: Geraldo García DO Ordering Provider: Geraldo García DO Date of Service: 05/02/23 ECG/ECG [...] ECG No previous ECGs available Confirmed by SANDRO VILLARREAL DO ([id number]) on 05/03/2023 9:46:45 AM Referred By: RAQUEL Electronically Signed By:SANDRO VILLARREAL DO Transcribed By: LEDY Signed By Sandro Villarreal DO 05/03 0946 Normal [facility] Erythrocyte distribution wid th [Ratio] by Automated countOrdered By: Geraldo García on 05-02-2023 Erythrocyte distribution width (RBC) [Ratio] 14.0 % Normal 11.9-15.3 [facility] Comment on above: Performed By: #### C BC, BMP #### [facility] [address] [place] [address] [place] Erythrocytes [#/volume] in B lood by Automated countOrdered By: Geraldo García on 05-02-2023 RBC (Bld) [#/Vol] 4.53 10*6/uL Normal 3.60-5.00 [facility] Comment on above: Performed By: #### C BC, BMP #### [facility] [address] [place] [address] [place] Glucose [Mass/volume] in Ser um or PlasmaOrdered By: Geraldo García on 05-02-2023 Glucose [Mass/Vol] 147 mg/dL High 70-100 [facility] Comment on above: ADA recommended refe rence rangeRandom Glucose Reference Range is dependent on time and content of last meal. Glucose of more than 200 mg/dL in a nonstressed, ambulatory subject supports the diagnosis of Diabetes Mellitus. Result Comment: [place] Glucose Reference Range is dependent on time and content of last meal. Glucose of more than 200 mg/dL in a nonstressed, ambulatory subject supports the diagnosis of Diabetes Mellitus. ADA recommended reference range Performed By: #### C CARLEEN, BMP #### [address] Hematocrit [Volume Fraction] of Blood by Automated countOrdered By: Geraldo García on 05-02-2023 Hematocrit (Bld) [Volume fraction] 38.9 % Normal 34.0-46.4 [facility] Comment on above: Performed By: #### C CARLEEN, BMP #### [address] Hemoglobin [Mass/volume] in BloodOrdered By: Geraldo García on 05-02-2023 Hemoglobin (Bld) [Mass/Vol] 12.9 g/dL Normal 11.8-15.4 [facility] Comment on above: Performed By: #### C CARLEEN, BMP #### [address] Leukocytes [#/volume] correc cori for nucleated erythrocytes in Blood by Automated counOrdered By: Geraldo García on 05-02-2023 WBC corrected for nucl RBC Auto (Bld) [#/Vol] 5.7 10*3/uL 3.8-11.6 [facility] Leukocytes [#/volume] in Blo od by Automated countOrdered By: Geraldo García on 05-02-2023 WBC (Bld) [#/Vol] 5.7 10*3/uL Normal 3.8-11.6 [facility] Comment on above: Performed By: #### C CARLEEN, BMP #### [place] [address] [place] Lymphocytes [#/volume] in Bl ood by Automated countOrdered By: Geraldo García on 05-02-2023 Lymphocytes (Bld) [#/Vol] 1.2 10*3/uL Normal 1.00-4.8 [facility] Comment on above: Performed By: #### C BC, BMP #### [address] Lymphocytes/100 leukocytes i n Blood by Automated countOrdered By: Geraldo García on 05-02-2023 Lymphocytes/100 WBC (Bld) 21.5 % Normal . [facility] Comment on above: Performed By: #### C CARLEEN, BMP #### [address] MCH [Entitic mass] by Automa cori countOrdered By: Geraldo García on 05-02-2023 MCH (RBC) [Entitic mass] 28.4 pg Normal 24.7-34.3 [facility] Comment on above: Performed By: #### C CARLEEN, BMP #### [address] MCHC Auto (RBC) [Mass/Vol]Or dered By: Geraldo García on 05-02-2023 MCHC (RBC) [Mass/Vol] 33.1 g/dL 32.0-35.0 [facility] MCV [Entitic volume] by Auto mated countOrdered By: Geraldo García on 05-02-2023 MCV (RBC) [Entitic vol] 85.8 fL Normal 80-100 F [facility] Comment on above: Performed By: #### C BC, BMP #### [address] Neutrophils [#/volume] in Bl ood by Automated countOrdered By: Geraldo García on 05-02-2023 Neutrophils (Bld) [#/Vol] 4.0 10*3/uL Normal 1.8-7.7 [facility] Comment on above: Performed By: #### C BC, BMP #### [address] No Panel InformationOrdered By: Geraldo García on 05-02-2023 Estimated GFR (CKD-EPI) > 60.0 mL/Min [facility] Creatinine Clearance (Chem N/A [facility] Nucleated erythrocytes [Pres ence] in Blood by Automated countOrdered By: Geraldo García on 05-02-2023 Nucleated RBC Auto Ql (Bld) 0.0 /100{WBC} 0-0.5 [facility] Platelet mean volume [Entiti c volume] in Blood by Automated countOrdered By: Geraldo García on 05-02-2023 Platelet mean volume (Bld) [Entitic vol] 7.9 fL Normal 6.3-10.7 [facility] Comment on above: Performed By: #### C BC, BMP #### [facility] [address] [place] [address] [place] Platelets [#/volume] in Bloo d by Automated countOrdered By: Geraldo García on 05-02-2023 Platelets (Bld) [#/Vol] 146 10*3/uL Low 150-450 [facility] Comment on above: Performed By: #### C BC, BMP #### [facility] [address] [place] [address] [place] Potassium [Moles/volume] in Serum or PlasmaOrdered By: Geraldo García on 05-02-2023 Potassium [Moles/Vol] 4.2 mmol/L Normal 3.5-5.1 [facility] Comment on above: Performed By: #### C BC, BMP #### [facility] [address] [place] [address] [place] Serum or plasma anion gap de terminationOrdered By: Geraldo García on 05-02-2023 Anion gap [Moles/Vol] 13.2 mmol/L Normal 6.0-15.0 [facility] Comment on above: Performed By: #### C BC, BMP #### [facility] [address] [place] [address] [place] Sodium [Moles/volume] in Ser um or PlasmaOrdered By: Geraldo García on 05-02-2023 Sodium [Moles/Vol] 142 mmol/L Normal 136-145 [facility] Comment on above: Performed By: #### C BC, BMP #### [facility] [address] [place] [address] [facility] Urea nitrogen [Mass/volume] in Serum or PlasmaOrdered By: Geraldo García on 05-02-2023 Urea nitrogen [Mass/Vol] 12 mg/dL Normal 7-25 [facility] Comment on above: Performed By: #### C BC, BMP #### [facility] [address] [place] [address] [facility] MG MAMM LT DIAG FUon 023 MG MAMM LT DIAG FU Patient: MELONY MANLEY Exam Date: 08/26/2022 : 1965 Gender:F Ordering : DR LITTLE STAFFORD . Admission #: [id number] Family : Order #: [id number] CLICK HERE TO VIEW EXAM RADIOLOGY REPORT [...] stomach cancer at age 54. LOCATION: [facility] BREAST COMPOSITION: Heterogeneously dense,which may obscure small [...] PALPABLE LUMP SHOULD BE BIOPSIED. Dictated by: Thea Mccormack M.D. on 08/26/2022 at 14:23 Approved by: Thea Mccormack M.D. on 08/26/2022 at 14:39 Normal [facility] US BREAST LEFT LIMITEDon US BREAST LEFT LIMITED Patient: MELONY MANLEY Exam Date: 08/26/2022 : 1965 Gender:F Ordering : DR LITTLE STAFFORD . Admission #: [id number] Family : Order #: [id number] CLICK HERE TO VIEW EXAM RADIOLOGY REPORT [...] stomach cancer at age 54. LOCATION: [facility] BREAST COMPOSITION: Heterogeneously dense,which may obscure small [...] PALPABLE LUMP SHOULD BE BIOPSIED. Dictated by: Thea Mccormack M.D. on 08/26/2022 at 14:23 Approved by: Thea Mccormack M.D. on 08/26/2022 at 14:39 Normal [facility] MG MAMM SCREEN 3D SOLITARIO CADon 08-01-2022 MG MAMM SCREEN 3D SOLITARIO CAD Patient: MELONY MANLEY Exam Date: 08/01/2022 : 1965 Gender:F Ordering : DR LITTLE STAFFORD . Admission #: [id number] Family : Order #: [id number] CLICK HERE TO VIEW EXAM RADIOLOGY REPORT [...] stomach cancer at age 54. LOCATION: [facility] BREAST COMPOSITION: Heterogeneously dense,which may obscure small [...] PALPABLE LUMP SHOULD BE BIOPSIED. Dictated by: Thea Mccormack M.D. on 08/01/2022 at 12:20 Approved by: Thea Mccormack M.D. on 08/01/2022 at 12:26 Normal [facility] XR DEXA BONE DENSITYon 08-01 XR DEXA [...] - Moderate Fracture Risk Electronically authenticated by: THEA MCCORMACK Date: 2022-08-01 11:[address] [facility] PAP ACOG PANEL 2: 30 to 65on 07-26-2022 . . Normal [facility] Comment on above: Result Comment: Perf ormed at: WB Performed By: #### [id number] #### [facility] [address] [place] [address] Dr. Devon Gillette Age Gdln ACOG Testing 30-[address] [facility] Comment on above: Performed By: #### [id number] #### [facility] [address] [address] [address] Devon Gillette DIAGNOSIS: Comment Normal [facility] Comment on above: Result Comment: NEGA TIVE FOR INTRAEPITHELIAL LESION OR MALIGNANCY. Performed at: WB Performed By: #### [id number] #### [facility] [address] [address] [address] Devon Gillette HPV Aptima Negative Normal Negative [facility] Comment on above: Result Comment: This nucleic acid amplification test detects fourteen high-risk HPV types (16,18,31,33,35,39,45,51,52,56,58,59,66,68) without differentiation. Performed at: =G Performed By: #### [id number] #### [facility] [address] [address] [address] Devon Gillette HPV Genotype Reflex Comment Normal [facility] Comment on above: Result Comment: Crit eria not met, HPV Genotype not performed. Performed at: WB Performed By: #### [id number] #### [facility] [address] [place] [address] Dr. Devon Gillette Methodology: Comment Normal [facility] Comment on above: Result Comment: This liquid based ThinPrep(R) pap test was screened with the use of an image guided system. Performed at: WB Performed By: #### [id number] #### [facility] [address] [place] [address] Dr. Devon Gillette Note: Comment Normal [facility] Comment on above: Result Comment: The Pap smear is a screening test designed to aid in the detection of premalignant and malignant conditions of the uterine cervix. It is not a diagnostic procedure and should not be used as the sole means of detecting cervical cancer. Both false-positive and false-negative reports do occur. . Performed at: WB Performed By: #### [id number] #### [facility] [address] [place] [address] Dr. Devon Gillette Performed by: Comment Normal [facility] Comment on above: Result Comment: Anjelica Girard, Esol Teacher Assistant (ASCP) Performed at: WB Performed By: #### [id number] #### [facility] [address] [place] [address] Dr. Devon Gillette Specimen adequacy: Comment Normal [facility] Comment on above: Result Comment: Sati sfactory for evaluation. Endocervical and/or squamous metaplastic cells (endocervical component) are present. Performed at: WB Performed By: #### [id number] #### [facility] [address] [place] [address] Dr. Devon Gillette VAGINITIS/VAGINOSIS DNA PROB Jim 07-20-2022 Anni species Negative Normal Negative [facility] Comment on above: Performed By: #### V AGINT #### [facility] [address] [place] [address] Dr. Devon Gillette Gardnerella vaginalis Positive Abnormal Negative [facility] Comment on above: Performed By: #### V AGINT #### [facility] [address] [place] [address] Dr. Devon Gillette Trichomonas vaginalis Negative Normal Negative [facility] Comment on above: Performed By: #### V AGINT #### [facility] [address] [place] [address] Dr. Devon Gillette CULTURE URINEon 04-21-2022 CULTURE URINE Culture Observations : LIGHT GROWTH OF MIXED GENITAL LAZARO. NO POTENTIAL PATHOGENS SEEN. Normal [facility] Comment on above: Performed By: #### G FRANKIE, TSH, LIPID, CREA #### [facility] [address] [place] [address] Dr. Devon Gillette LITHIUMon 04-15-2022 [place] (Eskalith(R)), Serum 0.6 mmol/L Normal 0.5-1.[address] [facility] Comment on above: Result Comment: A co ncentration of 0.5-0.8 mmol/L is advised for long-term use; concentrations of up to 1.2 mmol/L may be necessary during acute treatment. Detection Limit = 0.1 <0.1 indicates None Detected Performed By: #### G FRANKIE, TSH, LIPID, CREA #### [facility] [address] [address] [address] Devon Gillette CREATININEon 04-14-2022 Creatinine [Mass/Vol] 0.89 mg/dL Normal 0.55-1.[address] [facility] Comment on above: Performed By: #### G FRANKIE, TSH, LIPID, CREA #### [facility] [address] [address] [address] Devon Gillette EGFR-AF BARBADIAN >60 Normal >=60 [facility] Comment on above: Performed By: #### G FRANKIE, TSH, LIPID, CREA #### [facility] [address] [address] [address] Devon Gillette EGFR-NON AF BARBADIAN >60 Normal >=[address] [facility] Comment on above: Performed By: #### G FRANKIE, TSH, LIPID, CREA #### [facility] [address] [address] [address] Devon Gillette GLUCOSE BLOODon 04-14-2022 Glucose [Mass/Vol] 118 mg/dL Critically high 74-106 [facility] Comment on above: Performed By: #### G FRANKIE, TSH, LIPID, CREA #### [facility] [address] [address] [address] Devon Gillette LIPID PROFILEon 04-14-2022 CHOL-HDL RATIO NORM SEE BELOW Normal [facility] Comment on above: Result Comment: 3.3 - 4.4 LOW RISK 4.4 - 7.1 AVERAGE RISK 7.1 - 11.0 MODERATE RISK >11.0 HIGH RISK Performed By: #### G FRANKIE, TSH, LIPID, CREA #### [facility] [address] [address] [address] Devon Gillette Cholesterol [Mass/Vol] 128 mg/dL Normal <=200 Th [facility] Comment on above: Performed By: #### G FRANKIE, TSH, LIPID, CREA #### [facility] [address] [address] [address] Devon Gillette Cholesterol in HDL [Mass/Vol] 47 mg/dL Normal 40-[address] [facility] Comment on above: Performed By: #### G FRANKIE, TSH, LIPID, CREA #### [facility] [address] [address] [address] Devon Gillette Cholesterol in LDL [Mass/Vol] 34.6 mg/dL Normal [facility] Comment on above: Performed By: #### G FRANKIE, TSH, LIPID, CREA #### [facility] [address] [place] [address] Dr. Devon Gillette Cholesterol.total/Choles terol in HDL [Mass ratio] 2.7 {ratio} Normal [facility] Comment on above: Performed By: #### G FRANKIE, TSH, LIPID, CREA #### [facility] [address] [address] [address] Devon Gillette HDL NORMAL > or = 60 mg/dl - LO W CARDIOVASCULAR RISK <40 mg/dl - HIGH CARDIOVASCULAR RISK Normal [facility] Comment on above: Performed By: #### G FRANKIE, TSH, LIPID, CREA #### [facility] [address] [address] [address] Devon Gillette LDL CALC NORMAL SEE BELOW Normal [facility] Comment on above: Result Comment: <100 mg/dl OPTIMAL 100 - 129 mg/dl NEAR OR ABOVE OPTIMAL 130 - 159 mg/dl BORDERLINE HIGH 160 - 189 mg/dl HIGH >190 mg/dl VERY HIGH Performed By: #### G FRANKIE, TSH, LIPID, CREA #### [facility] [address] [address] [address] Devon Gillette Triglyceride [Mass/Vol] 232 mg/dL Critically high <=[address] [facility] Comment on above: Performed By: #### G FRANKIE, TSH, LIPID, CREA #### [facility] [address] [address] [address] Devon Gillette VLDL CALC 46.4 mg/dL Normal [facility] Comment on above: Performed By: #### G FRANKIE, TSH, LIPID, CREA #### [facility] [address] [address] [address] Devon Gillette TSHon 04-14-2022 TSH 0.375 uIU/mL Normal 0.358-3.740 [facility] Comment on above: Performed By: #### G FRANKIE, TSH, LIPID, CREA #### [facility] [address] [address] [address] Devon Gillette CULTURE URINEon 03-30-2022 CULTURE [...] F Trimethoprim/Sulfamet hoxazole <=20 S F Normal [facility] Comment on above: Performed By: #### U RCX #### [facility] [address] [place] [address] Dr. Devon Gillette LITHIUMon 12-28-2021 [place] (Eskalith(R)), Serum 0.7 mmol/L Normal 0.5-1.[address] [facility] Comment on above: Result Comment: Plas ma concentration of 0.5 - 0.8 mmol/L are advised for long-term use; concentrations of up to 1.2 mmol/L may be necessary during acute treatment. Detection Limit = 0.1 <0.1 indicates None Detected Performed By: #### G FRANKIE, TSH, LIPID, CREA #### [facility] [address] [address] [address] Devon Gillette CREATININEon 12-27-2021 Creatinine [Mass/Vol] 1.10 mg/dL Critically high 0.55-1.[address] [facility] Comment on above: Performed By: #### G FRANKIE, TSH, LIPID, CREA #### [facility] [address] [address] [address] Devon Gillette EGFR-AF BARBADIAN >60 Normal >=60 [facility] Comment on above: Performed By: #### G FRANKIE, TSH, LIPID, CREA #### [facility] [address] [address] [address] Devon Gillette EGFR-NON AF BARBADIAN 51 mL/min/1.73m2 Critically low >=[address] [facility] Comment on above: Performed By: #### G FRANKIE, TSH, LIPID, CREA #### [facility] [address] [place] [address] Dr. Devon Gillette DIRECT LDLon 12-27-2021 Cholesterol in LDL [Mass/Vol] 133 mg/dL Normal [facility] Comment on above: Performed By: #### G FRANKIE, TSH, LIPID, CREA #### [facility] [address] [address] [address] Devon Gillette DLDL NORMAL SEE BELOW Normal [facility] Comment on above: Result Comment: <100 mg/dl OPTIMAL 100 - 129 mg/dl NEAR OR ABOVE OPTIMAL 130 - 159 mg/dl BORDERLINE HIGH 160 - 189 mg/dl HIGH >190 mg/dl VERY HIGH Performed By: #### G FRANKIE, TSH, LIPID, CREA #### [facility] [address] [place] [address] Dr. Devon Gillette GLUCOSE BLOODon 12-27-2021 Glucose [Mass/Vol] 151 mg/dL Critically high 74-106 [facility] Comment on above: Performed By: #### G FRANKIE, TSH, LIPID, CREA #### [facility] [address] [place] [address] Dr. Devon Gillette LIPID PROFILEon 12-27-2021 CHOL-HDL RATIO NORM SEE BELOW Normal [facility] Comment on above: Result Comment: 3.3 - 4.4 LOW RISK 4.4 - 7.1 AVERAGE RISK 7.1 - 11.0 MODERATE RISK >11.0 HIGH RISK Performed By: #### G FRANKIE, TSH, LIPID, CREA #### [facility] [address] [address] [address] Devon Gillette Cholesterol [Mass/Vol] 244 mg/dL Critically high <=[address] [facility] Comment on above: Performed By: #### G FRANKIE, TSH, LIPID, CREA #### [facility] [address] [address] [address] Devon Gillette Cholesterol in HDL [Mass/Vol] 33 mg/dL Critically low 40-[address] [facility] Comment on above: Performed By: #### G FRANKIE, TSH, LIPID, CREA #### [facility] [address] [place] [address] Dr. Devon Gillette Cholesterol.total/Choles terol in HDL [Mass ratio] 7.4 {ratio} Normal [facility] Comment on above: Performed By: #### G FRANKIE, TSH, LIPID, CREA #### [facility] [address] [address] [address] Devon Gillette HDL NORMAL > or = 60 mg/dl - LO W CARDIOVASCULAR RISK <40 mg/dl - HIGH CARDIOVASCULAR RISK Normal [facility] Comment on above: Performed By: #### G FRANKIE, TSH, LIPID, CREA #### [facility] [address] [place] [address] Dr. Devon Gillette Triglyceride [Mass/Vol] 431 mg/dL Critically high <=150 [facility] Comment on above: Performed By: #### G FRANKIE, TSH, LIPID, CREA #### [facility] [address] [address] [address] Devon Gillette Vital Signs Date Time Vital Sign Value Performing Clinician Facility 02-15-2024 13:010400 Body height 162.56 cm MD Susan Ayala Work Phone: [facility] 02-15-2024 13:01-0400 Body mass index (BMI) [Ratio] 27.3 kg/m2 MD Susan Ayala Work Phone: [facility] 02-15-2024 13:01-0400 Body temperature 98.2 [degF] MD Susan Ayala Work Phone: [facility] 02-15-2024 13:01-0400 Body weight 72.12 kg MD Susan Ayala Work Phone: [facility] 02-15-2024 13:01-0400 Diastolic blood pressure 78 mm[Hg] MD Susan Ayala Work Phone: [facility] 02-15-2024 13:01-0400 Heart rate 82 /min MD Susan Ayala Work Phone: [facility] 02-15-2024 13:01-0400 Respiratory rate 20 /min MD Susan Ayala Work Phone: [facility] 02-15-2024 13:01-0400 SaO2% (BldA) [Mass fraction] 100 % MD Susan Ayala Work Phone: [facility] 02-15-2024 13:01-0400 Systolic blood pressure 127 mm[Hg] MD Susan Ayala Work Phone: [facility] 01-03-2024 13:56-0400 Body temperature 99.1 [degF] MD Susan Ayala Work Phone: [facility] 01-03-2024 13:56-0400 Body weight 72.12 kg MD Susan Ayala Work Phone: [facility] 01-03-2024 13:56-0400 Diastolic blood pressure 77 mm[Hg] MD Susan Ayala Work Phone: [facility] 01-03-2024 13:56-0400 Heart rate 107 /min MD Susan Ayala Work Phone: [facility] 01-03-2024 13:56-0400 Respiratory rate 16 /min MD Susan Ayala Work Phone: [facility] 01-03-2024 13:56-0400 SaO2% (BldA) [Mass fraction] 98 % MD Susan Ayala Work Phone: [facility] 01-03-2024 13:56-0400 Systolic blood pressure 147 mm[Hg] MD Susan Ayala Work Phone: [facility] 12-21-2023 09:56-0400 Body height 162.56 cm MD Susan Ayala Work Phone: [facility] 12-21-2023 09:56-0400 Body mass index (BMI) [Ratio] 27.1 kg/m2 MD Susan Ayala Work Phone: [facility] 12-21-2023 09:56-0400 Body temperature 97.9 [degF] MD Susan Ayala Work Phone: [facility] 12-21-2023 09:56-0400 Body weight 71.66 kg MD Susan Ayala Work Phone: [facility] 12-21-2023 09:56-0400 Diastolic blood pressure 81 mm[Hg] MD Susan Ayala Work Phone: [facility] 12-21-2023 09:56-0400 Heart rate 95 /min MD Susan Ayala Work Phone: [facility] 12-21-2023 09:56-0400 Respiratory rate 20 /min MD Susan Ayala Work Phone: [facility] 12-21-2023 09:56-0400 SaO2% (BldA) [Mass fraction] 100 % MD Susan Ayala Work Phone: [facility] 12-21-2023 09:56-0400 Systolic blood pressure 136 mm[Hg] MD Susan Ayala Work Phone: [facility] 12-05-2023 09:05-0400 Diastolic blood pressure 82 mm[Hg] MD Susan Ayala Work Phone: [facility] 12-05-2023 09:05-0400 Heart rate 66 /min MD Susan Ayala Work Phone: [facility] 12-05-2023 09:05-0400 Respiratory rate 20 /min MD Susan Ayala Work Phone: [facility] 12-05-2023 09:05-0400 SaO2% (BldA) [Mass fraction] 100 % MD Susna Ayala Work Phone: [facility] 12-05-2023 09:05-0400 Systolic blood pressure 137 mm[Hg] MD Susan Ayala Work Phone: [facility] 11-20-2023 08:09-0400 Body height 162.56 cm MD Susan Ayala Work Phone: [phone] [place] [address] 11-20-2023 08:09-0400 Body weight 74.84 kg MD Susan Ayala Work Phone: [facility] 10-24-2023 12:53-0400 Body height 162.56 cm MD Susan Ayala Work Phone: [facility] 10-24-2023 12:53-0400 Body mass index (BMI) [Ratio] 27.8 kg/m2 MD Susan Ayala Work Phone: [facility] 10-24-2023 12:53-0400 Body temperature 97.9 [degF] MD Susan Ayala Work Phone: [facility] 10-24-2023 12:53-0400 Body weight 73.48 kg MD Susan Ayala Work Phone: [facility] 10-24-2023 12:53-0400 Diastolic blood pressure 83 mm[Hg] MD Susan Ayala Work Phone: [facility] 10-24-2023 12:53-0400 Heart rate 85 /min MD Susan Ayala Work Phone: [facility] 10-24-2023 12:53-0400 Respiratory rate 16 /min MD Susan Ayala Work Phone: [facility] 10-24-2023 12:53-0400 SaO2% (BldA) [Mass fraction] 98 % MD Susan Ayala Work Phone: [facility] 10-24-2023 12:53-0400 Systolic blood pressure 137 mm[Hg] MD Susan Ayala Work Phone: [facility] 10-11-2023 13:21-0400 Body height 162.56 cm MD Susan Ayala Work Phone: [facility] 10-11-2023 13:21-0400 Body mass index (BMI) [Ratio] 28.3 kg/m2 MD Susan Ayala Work Phone: [facility] 10-11-2023 13:21-0400 Body temperature 98 [degF] MD Susan Ayala Work Phone: [facility] 10-11-2023 13:21-0400 Body weight 74.84 kg MD Susan Ayala Work Phone: [facility] 10-11-2023 13:21-0400 Diastolic blood pressure 79 mm[Hg] MD Susan Ayala Work Phone: [facility] 10-11-2023 13:21-0400 Heart rate 102 /min MD Susan Ayala Work Phone: [facility] 10-11-2023 13:21-0400 Respiratory rate 20 /min MD Susan Ayala Work Phone: [facility] 10-11-2023 13:21-0400 SaO2% (BldA) [Mass fraction] 98 % MD Susan Ayala Work Phone: [facility] 10-11-2023 13:21-0400 Systolic blood pressure 133 mm[Hg] MD Susan Ayala Work Phone: [facility] 10-03-2023 13:01-0400 Body height 162.56 cm MD Susan Ayala Work Phone: [facility] 10-03-2023 13:01-0400 Body mass index (BMI) [Ratio] 28.5 kg/m2 MD Susan Ayala Work Phone: [facility] 10-03-2023 13:01-0400 Body weight 75.29 kg MD Susan Ayala Work Phone: [facility] 10-03-2023 13:01-0400 Diastolic blood pressure 73 mm[Hg] MD Susan Ayala Work Phone: [facility] 10-03-2023 13:01-0400 Heart rate 83 /min MD Susan Ayala Work Phone: [facility] 10-03-2023 13:01-0400 Systolic blood pressure 125 mm[Hg] MD Susan Ayala Work Phone: [facility] 09-21-2023 10:59-0400 Body height 162.56 cm MD Susan Ayala Work Phone: [facility] 09-21-2023 10:59-0400 Body mass index (BMI) [Ratio] 28.1 kg/m2 MD Susan Ayala Work Phone: [facility] 09-21-2023 10:59-0400 Body temperature 98 [degF] MD Susan Ayala Work Phone: [facility] 09-21-2023 10:59-0400 Body weight 74.38 kg MD Susan Ayala Work Phone: [facility] 09-21-2023 10:59-0400 Diastolic blood pressure 80 mm[Hg] MD Susan Ayala Work Phone: [facility] 09-21-2023 10:59-0400 Heart rate 77 /min MD Susan Ayala Work Phone: [facility] 09-21-2023 10:59-0400 Respiratory rate 18 /min MD Susan Ayala Work Phone: [facility] 09-21-2023 10:59-0400 SaO2% (BldA) [Mass fraction] 100 % MD Susan Ayala Work Phone: [facility] 09-21-2023 10:59-0400 Systolic blood pressure 131 mm[Hg] MD Susan Ayala Work Phone: [facility] 08-29-2023 13:44-0400 Diastolic blood pressure 82 mm[Hg] MD Susan Ayala Work Phone: [facility] 08-29-2023 13:44-0400 Heart rate 67 /min MD Susan Ayala Work Phone: [facility] 08-29-2023 13:44-0400 Respiratory rate 16 /min MD Susan Ayala Work Phone: [facility] 08-29-2023 13:44-0400 SaO2% (BldA) [Mass fraction] 98 % MD Susan Ayala Work Phone: [facility] 08-29-2023 13:44-0400 Systolic blood pressure 146 mm[Hg] MD Susan Ayala Work Phone: [facility] 08-29-2023 12:59-0400 Body temperature 97 [degF] MD Susan Ayala Work Phone: [facility] 08-29-2023 12:29-0400 Inhaled oxygen flow rate 8 L/min MD Susan Ayala Work Phone: [facility] 08-29-2023 11:31-0400 Body weight 74.84 kg MD Susan Ayala Work Phone: [facility] 08-29-2023 11:15-0400 Body height 162.56 cm MD Susan Ayala Work Phone: [facility] 08-11-2023 10:40-0400 Body height 162.56 cm MD Susan Ayala Work Phone: [facility] 08-11-2023 10:40-0400 Body mass index (BMI) [Ratio] 28.1 kg/m2 MD Susan Ayala Work Phone: [facility] 08-11-2023 10:40-0400 Body temperature 97.5 [degF] MD Susan Ayala Work Phone: [facility] 08-11-2023 10:40-0400 Body weight 74.44 kg MD Susan Ayala Work Phone: [facility] 08-11-2023 10:40-0400 Diastolic blood pressure 80 mm[Hg] MD Susan Ayala Work Phone: [facility] 08-11-2023 10:40-0400 Heart rate 85 /min MD Susan Ayala Work Phone: [facility] 08-11-2023 10:40-0400 Systolic blood pressure 121 mm[Hg] MD Susan Ayala Work Phone: [facility] 08-01-2023 13:50-0400 Diastolic blood pressure 78 mm[Hg] MD Susan Ayala Work Phone: [facility] 08-01-2023 13:50-0400 Heart rate 72 /min MD Susan Ayala Work Phone: [facility] 08-01-2023 13:50-0400 Respiratory rate 16 /min MD Susan Ayala Work Phone: [facility] 08-01-2023 13:50-0400 SaO2% (BldA) [Mass fraction] 100 % MD Susan Ayala Work Phone: [facility] 08-01-2023 13:50-0400 Systolic blood pressure 138 mm[Hg] MD Susan Ayala Work Phone: [facility] 08-01-2023 12:58-0400 Body temperature 98.4 [degF] MD Susan Ayala Work Phone: [facility] 08-01-2023 12:33-0400 Inhaled oxygen flow rate 8 L/min MD Susan Ayala Work Phone: [facility] 08-01-2023 11:26-0400 Body height 162.56 cm MD Susan Ayala Work Phone: [facility] 08-01-2023 11:26-0400 Body mass index (BMI) [Ratio] 28.3 kg/m2 MD Susan Ayala Work Phone: [facility] 08-01-2023 11:26-0400 Body weight 74.84 kg MD Susan Ayala Work Phone: [facility] 07-11-2023 14:28-0500 Body height 162.56 cm MD Susan Ayala Work Phone: [facility] 07-11-2023 14:28-0500 Body mass index (BMI) [Ratio] 28.5 kg/m2 MD Susan Ayala Work Phone: [facility] 07-11-2023 14:28-0500 Body weight 75.46 kg MD Susan Ayala Work Phone: [facility] 07-11-2023 14:28-0500 Diastolic blood pressure 75 mm[Hg] MD Susan Ayala Work Phone: [facility] 07-11-2023 14:28-0500 Heart rate 93 /min MD Susan Ayala Work Phone: [facility] 07-11-2023 14:28-0500 Systolic blood pressure 138 mm[Hg] MD Susan Ayala Work Phone: [facility] 05-16-2023 10:00-0500 Body temperature 98.2 [degF] MD Susan Ayala Work Phone: [facility] 05-16-2023 10:00-0500 Diastolic blood pressure 78 mm[Hg] MD Susan Ayala Work Phone: [facility] 05-16-2023 10:00-0500 Heart rate 87 /min MD Susan Ayala Work Phone: [facility] 05-16-2023 10:00-0500 Respiratory rate 18 /min MD Susan Ayala Work Phone: [facility] 05-16-2023 10:00-0500 SaO2% (BldA) [Mass fraction] 99 % MD Susan Ayala Work Phone: [facility] 05-16-2023 10:00-0500 Systolic blood pressure 136 mm[Hg] MD Susan Ayala Work Phone: [facility] 05-02-2023 16:16-0500 Body height 162.56 cm MD Susan Ayala Work Phone: [facility] 05-02-2023 16:16-0500 Body weight 75.7 kg MD Susan Ayala Work Phone: [facility] 03-27-2023 14:00-0500 Body height 162.56 cm Susan Ayala Other [facility] [employer] Other 03-27-2023 14:00-0500 Body mass index (BMI) [Ratio] 28.49 kg/m2 Susan Ayala Other [employer] Other 03-27-2023 14:00-0500 Body weight 75.3 kg Susan Ayala Other [employer] Other 03-27-2023 14:00-0500 Diastolic blood pressure 84 mm[Hg] Susan Ayala Other [employer] Other 03-27-2023 14:00-0500 Systolic blood pressure 136 mm[Hg] Susan Ayala Other [employer] Other 02-06-2023 10:30-0400 Body height 162.56 cm Susan Ayala Other [employer] Other 02-06-2023 10:30-0400 Body mass index (BMI) [Ratio] 29.01 kg/m2 Susan Ayala Other [employer] Other 02-06-2023 10:30-0400 Body weight 76.66 kg Susan Ayala Other [employer] Other 02-06-2023 10:30-0400 Diastolic blood pressure 84 mm[Hg] Susan Ayala Other [employer] Other 02-06-2023 10:30-0400 Systolic blood pressure 144 mm[Hg] Susan Ayala Other [employer] Other 12-28-2022 09:30-0400 Body height 162.56 cm Susan Ayala Other [employer] Other 12-28-2022 09:30-0400 Body mass index (BMI) [Ratio] 28.15 kg/m2 Susan Ayala Other [employer] Other 12-28-2022 09:30-0400 Body weight 74.39 kg Susan Ayala Other [employer] Other 12-28-2022 09:30-0400 Diastolic blood pressure 78 mm[Hg] Susan Ayala Other [employer] Other 12-28-2022 09:30-0400 SaO2% (BldA) [Mass fraction] 96 % Susan Ayala Other [employer] Other 12-28-2022 09:30-0400 Systolic blood pressure 128 mm[Hg] Susan Ayala Other [employer] Other 09-13-2022 15:00-0400 Body height 162.56 cm Susan Ayala Other [employer] Other 09-13-2022 15:00-0400 Body mass index (BMI) [Ratio] 28.32 kg/m2 Susan Ayala Other [employer] Other 09-13-2022 15:00-0400 Body weight 74.84 kg Susan Ayala Other [employer] Other 09-13-2022 15:00-0400 Diastolic blood pressure 74 mm[Hg] Susan Ayala Other [employer] Other 09-13-2022 15:00-0400 SaO2% (BldA) [Mass fraction] 98 % Susan Ayala Other [employer] Other 09-13-2022 15:00-0400 Systolic blood pressure 142 mm[Hg] Susan Ayala Other [employer] Other 07-06-2022 10:00-0500 Body height 162.56 cm Susan Ayala Other [employer] Other 07-06-2022 10:00-0500 Body mass index (BMI) [Ratio] 28.66 kg/m2 Susan Ayala Other [employer] Other 07-06-2022 10:00-0500 Body weight 75.75 kg Susan Ayala Other [employer] Other 07-06-2022 10:00-0500 Diastolic blood pressure 62 mm[Hg] Susan Ayala Other [employer] Other 07-06-2022 10:00-0500 SaO2% (BldA) [Mass fraction] 98 % Susan Ayala Other [employer] Other 07-06-2022 10:00-0500 Systolic blood pressure 110 mm[Hg] Susan Ayala Other [employer] Other 06-14-2022 11:00-0500 Body height 162.56 cm Susan Ayala Other [employer] Other 06-14-2022 11:00-0500 Body mass index (BMI) [Ratio] 29.01 kg/m2 Susan Ayala Other [employer] Other 06-14-2022 11:00-0500 Body weight 76.66 kg Susan Ayala Other [employer] Other 06-14-2022 11:00-0500 Diastolic blood pressure 76 mm[Hg] Susan Ayala Other [employer] Other 06-14-2022 11:00-0500 SaO2% (BldA) [Mass fraction] 98 % Susan Ayala Other [employer] Other 06-14-2022 11:00-0500 Systolic blood pressure 138 mm[Hg] Susan Ayala Other [employer] Other Encounters Encounter Date Encounter Type Care Provider Facility Start: 02-15-2024 Registered Recurring MD Susan Ayala Work Phone: [facility] Work Phone: Start: 02-15-2024 End: 02-15-2024 ambulatory Geraldo García Facility:[facility] Start: 02-15-2024 End: 02-15-2024 Patient encounter procedure MD Susan Ayala Work Phone: [facility] Work Phone: Start: 02-08-2024 Non-patient / Non-visit MD Susan Ayala Work Phone: [facility] [employer] Work Phone: Start: 01-23-2024 ambulatory [place] Facility:[facility] Start: 01-23-2024 Registered Recurring MD Susan Ayala Work Phone: [facility] Start: 01-03-2024 End: 01-03-2024 ambulatory MD Susan Ayala Work Phone: [facility] Work Phone: Start: 01-03-2024 End: 01-03-2024 Patient encounter procedure MD Susan Ayala Work Phone: [facility] Work Phone: Start: 01-03-2024 Registered Recurring MD Susan Ayala [facility]: [facility] [place] [facility] Work Phone: Start: 12-28-2023 End: 12-28-2023 ambulatory JORDYN PORTILLO Not Available Start: 12-22-2023 Non-patient / Non-visit MD Susan Ayala Work Phone: [facility] Work Phone: Start: 12-21-2023 End: 12-21-2023 ambulatory MD Susan Ayala Work Phone: [facility] Work Phone: Start: 12-21-2023 End: 12-21-2023 Patient encounter procedure MD Susan Ayala Work Phone: [facility] Work Phone: Start: 12-21-2023 Registered Recurring MD Susan Ayala Work Phone: [facility] Work Phone: Start: 12-11-2023 Registered Recurring MD Susan Ayala Work Phone: [facility] Start: 12-06-2023 Non-patient / Non-visit MD Susan Ayala Work Phone: [facility] Work Phone: Start: 12-05-2023 Non-patient / Non-visit MD Susan [facility]ala [facility] Work Phone: Start: 12-05-2023 End: 12-05-2023 Admission to same day surgery center MD Susan Ayala Work Phone: [facility] Work Phone: Start: 12-05-2023 End: 12-05-2023 ambulatory MD Susan Ayala Work Phone: [facility] Work Phone: Start: 12-04-2023 Registered Recurring MD Susan Ayala Work Phone: [facility] Work Phone: Start: 11-29-2023 Non-patient / Non-visit MD Susan Ayala Work Phone: [facility] Work Phone: Start: 11-27-2023 Non-patient / Non-visit MD Susan Ayala Work Phone: [facility] Work Phone: Start: 11-22-2023 Non-patient / Non-visit MD Susan Ayala Work Phone: [facility] Work Phone: Start: 11-20-2023 Non-patient / Non-visit MD Susan Ayala Work Phone: [facility] Work Phone: Start: 11-15-2023 Non-patient / Non-visit MD Susan Ayala Work Phone: [facility] Work Phone: Start: 11-13-2023 Non-patient / Non-visit MD Susan Ayala Work Phone: [facility] Work Phone: Start: 11-08-2023 Non-patient / Non-visit MD Susan Ayala Work Phone: [facility] Work Phone: Start: 11-02-2023 Non-patient / Non-visit MD Susan Ayala Work Phone: [facility] Work Phone: Start: 10-31-2023 Registered Recurring MD Susan Ayala Work Phone: [facility] Start: 10-25-2023 End: 10-25-2023 ambulatory GERALDO Emilie RAQUEL Not Available Start: 10-24-2023 End: 10-24-2023 Patient encounter procedure MD Susan Ayala Work Phone: [facility] Work Phone: Start: 10-19-2023 End: 10-19-2023 ambulatory JORDYN PORTILLO Not Available Start: 10-11-2023 End: 10-11-2023 ambulatory MD Susan Ayala Work Phone: [facility] Work Phone: Start: 10-11-2023 End: 10-11-2023 Patient encounter procedure MD Susan Ayala Work Phone: [facility] Work Phone: Start: 10-11-2023 Registered Recurring MD Susan Ayala Work Phone: [facility] Work Phone: Start: 10-03-2023 End: 10-03-2023 ambulatory MD Susan Ayala Work Phone: [facility] Work Phone: Start: 10-03-2023 End: 10-03-2023 Patient encounter procedure MD Susan Ayala Work Phone: [facility] Work Phone: Start: 09-26-2023 Non-patient / Non-visit MD Susan Ayala Work Phone: [facility] Work Phone: Start: 09-21-2023 End: 09-21-2023 Patient encounter procedure MD Susan Ayala Work Phone: [facility] Work Phone: Start: 09-21-2023 Registered Recurring MD Susan Ayala Work Phone: [facility] Work Phone: Start: 09-20-2023 End: 09-20-2023 ambulatory GERALDO H ITZKOWITZ Not Available Start: 09-19-2023 Registered Recurring MD Susan Ayala Work Phone: [facility] Start: 09-06-2023 End: 09-06-2023 ambulatory GERALDO H ITZKOWITZ Not Available Start: 08-29-2023 End: 08-29-2023 Admission to same day surgery center MD Susan Ayala Work Phone: [facility] [place] [facility] [place] Start: 08-29-2023 End: 08-29-2023 ambulatory MD Susan Ayala Work Phone: [facility] Work Phone: Start: 08-16-2023 End: 08-16-2023 ambulatory GERALDO H ITZKOWITZ Not Available Start: 08-11-2023 End: 08-11-2023 ambulatory MD Ssuan Ayala Work Phone: [facility] Work Phone: Start: 08-11-2023 End: 08-11-2023 Patient encounter procedure MD Susan Ayala Work Phone: [facility] Work Phone: Start: 08-10-2023 End: 08-10-2023 ambulatory JORDYN PORTILLO Not Available Start: 08-09-2023 End: 08-09-2023 ambulatory GERALDO H ITZKOWITZ Not Available Start: 08-01-2023 End: 08-01-2023 Admission to same day surgery center MD Susan Ayala Work Phone: [facility] Main [place] Start: 08-01-2023 End: 08-01-2023 ambulatory MD Susan Ayala Work Phone: [facility] Work Phone: Start: 07-24-2023 Non-patient / Non-visit MD Susan Ayala Work Phone: [facility] Work Phone: Start: 07-24-2023 End: 07-24-2023 ambulatory CHEL JOSEPH Not Available Start: 07-19-2023 End: 07-19-2023 Patient encounter procedure MD Susan Ayala Work Phone: [facility] Work Phone: Start: 07-19-2023 End: 07-19-2023 ambulatory MD Susan Ayala Work Phone: [facility] Work Phone: Start: 07-12-2023 End: 07-12-2023 Admission to same day surgery center MD Susan Ayala Work Phone: [facility] Start: 07-12-2023 End: 07-12-2023 ambulatory GERALDO GARCÍA Not Available Start: 07-11-2023 End: 07-11-2023 Patient encounter procedure MD Susan Ayala Work Phone: [facility] Work Phone: Start: 07-04-2023 Registered Recurring MD Susan Ayala Work Phone: [facility] Start: 06-29-2023 End: 07-02-2023 ambulatory ADAMA GARCÍA [facility] Start: 06-01-2023 End: 06-01-2023 ambulatory JORDYN PORTILLO Not Available Start: 05-30-2023 Registered Recurring MD Susan Ayala Work Phone: [facility] Start: 05-16-2023 End: 05-16-2023 Admission to same day surgery center MD Susan Ayala Work Phone: [facility] Work Phone: Start: 05-16-2023 End: 05-16-2023 ambulatory MD Susan Ayala Work Phone: [facility] Work Phone: Start: 05-02-2023 End: 05-02-2023 Patient encounter procedure MD Susan Ayala Work Phone: [facility] Work Phone: Start: 05-02-2023 End: 05-02-2023 ambulatory Geraldo Itzkowitz Facility:[facility] Start: 04-28-2023 End: 04-28-2023 ambulatory GERALDO H ITZKOWITZ Not Available Start: 04-10-2023 End: 04-10-2023 ambulatory Susan Ayala Other [employer] Other Start: 04-10-2023 Telephone encounter Susan Ayala [facility] Start: 04-05-2023 End: 04-05-2023 ambulatory GERALDO H ITZKOWITZ Not Available Start: 03-27-2023 End: 03-27-2023 ambulatory Susan Ayala Other [employer] Other Start: 03-27-2023 Patient encounter procedure Susan Ayaal [facility] Start: 03-27-2023 Telephone encounter Susan Ayala [facility] Start: 03-21-2023 End: 03-21-2023 ambulatory Susan Ayala Other [employer] Other Start: 03-21-2023 Telephone encounter Susan Ayala [facility] Start: 03-10-2023 (Televisit) Televisit Susan Ayala [facility] Start: 03-10-2023 End: 03-10-2023 ambulatory Susan Ayala Other [employer] Other Start: 03-06-2023 End: 03-06-2023 ambulatory Susan Ayala Other [employer] Other Start: 03-06-2023 Telephone encounter Susan Ayala [facility] Start: 02-06-2023 End: 02-06-2023 ambulatory Susan Ayala Other [employer] Other Start: 02-06-2023 Office outpatient visit [address] [facility] Start: 02-06-2023 Telephone encounter Susan Ayala [facility] Start: 12-28-2022 End: 12-28-2022 ambulatory Susan Ayala Other [employer] Other Start: 12-28-2022 Office outpatient visit [address] [facility] Start: 09-13-2022 End: 09-13-2022 ambulatory Susan Ayala Other [employer] Other Start: 09-13-2022 Office outpatient visit [address] [facility] Start: 08-26-2022 End: 08-27-[address] LITTLE STAFFORD . Facility:[facility] Start: 08-01-2022 End: 08-02-[address] LITTLE STAFFORD . Facility:[facility] Start: 07-18-2022 End: 07-18-[address] LITTLE STAFFORD . Facility:[facility] Start: 07-12-2022 End: 07-12-2022 ambulatory Susan Ayala Other [employer] Other Start: 07-12-2022 Telephone encounter Susan Ayala [facility] Start: 07-06-2022 End: 07-06-2022 ambulatory Susan Ayala Other [employer] Other Start: 07-06-2022 Office outpatient visit [address] [facility] Start: 06-21-2022 End: 06-21-2022 ambulatory Susan Ayala Other [employer] Other Start: 06-21-2022 Telephone encounter Susan Ayala [facility] Start: 06-14-2022 Office outpatient visit [address] [facility] Start: 06-14-2022 End: 06-14-2022 ambulatory MD Susan Ayala Work Phone: [facility] Work Phone: Start: 06-14-2022 End: 06-14-2022 Departed Referred MD Susan Ayala Work Phone: [facility] [place] Work Phone: Start: 04-25-2022 Adult health examination Susan Ayala Other [employer] Other Start: 04-25-2022 Gynecological examination normal Susan Ayala Other [employer] Other Start: 04-21-2022 End: 04-21-[address] SUSAN AYALA Facility:[facility] Start: 04-14-2022 End: 04-15-2022 ambulatory ANIA BLANCA Facility:[facility] Start: 03-28-2022 End: 03-28-[address] SUSAN AYALA Facility:[facility] Start: 12-27-2021 End: 12-28-2021 ambulatory ANIA BLANCA Facility:[facility] Procedures Date Procedure Procedure Detail Performing Clinician Start: 12-05-2023 Screening colonoscopy Janak Ayala Work Phone: Start: 08-29-2023 Lumpectomy of left breast MD Susan Ayala Work Phone: Start: 08-01-2023 Lumpectomy of left breast MD Susan Ayala Work Phone: Start: 08-01-2023 Radionuclide sentine l lymph node study MD Susan Ayala Work Phone: Start: 08-01-2023 Mammography of left breast specimen MD Susan Ayala Work Phone: Start: 07-31-2023 Mammogram - localization MD Susan Ayala Work Phone: Start: 07-12-2023 Ultrasonography of l eft breast MD Susan Ayala Work Phone: Start: 05-16-2023 Core needle biopsy o f breast using ultrasound guidance MD Susan Ayala Work Phone: Start: 05-16-2023 Mammography of left breast MD Susan Ayala Work Phone: Start: 05-16-2023 Ultrasonography of l eft breast MD Susan Ayala Work Phone: Start: 05-16-2023 Ultrasonography of limb MD Susan Ayala Work Phone: End: 06-28-2019 Viral screening Susan Ayala Other Plan of Treatment Date Care Activity Detail Author Start: 12-05-2023 [facility] Start: 10-11-2023 Patient referral [facility] Work Phone: Start: 10-09-2023 Patient referral [facility] Work Phone: Start: 08-29-2023 [facility] Start: 08-29-2023 End: 08-29-2023 [facility] Start: 08-01-2023 [facility] Start: 08-01-2023 [facility] Start: 05-16-2023 Lumpectomy of left breast OR Breast Bx, Lumpectomy, Mass Excision (Left) [facility] Start: 06-14-2022 [facility] Atopobium vaginae DN A [Presence] in Vaginal fluid by HIMANSHU with probe detection [facility] Bacterial vaginosis associated bacterium 2 DNA [Presence] in Vaginal fluid by HIMANSHU with probe detection [facility] Basophils [#/volume] in Blood by Automated count [facility] Basophils/100 leukoc ytes in Blood by Automated count [facility] Comprehensive metabo lic 1999 panel - Serum or Plasma [facility] Comprehensive metabo lic 1999 panel - Serum or Plasma [facility] Eosinophils/100 leukocytes in Blood by Automated count [facility] Erythrocyte distribu tion width [Ratio] by Automated count [facility] Erythrocytes [#/volu me] in Blood [facility] Hematocrit [Volume Fraction] of Blood [facility] Hemoglobin [Mass/vol ume] in Blood [facility] Hepatic function panel [facility] Leukocytes [#/volume ] corrected for nucleated erythrocytes in Blood by Automated coun [facility] Leukocytes [#/volume ] in Blood [facility] Lymphocytes [#/volum e] in Blood by Automated count [facility] Lymphocytes/100 leukocytes in Blood by Automated count [facility] MCH [Entitic mass] b y Automated count [facility] MCHC [Mass/volume] b y Automated count [facility] MCV [Entitic volume] by Automated count [facility] Megasphaera sp type 1 DNA [Presence] in Vaginal fluid by HIMANSHU with probe detection [facility] Monocytes [#/volume] in Blood by Automated count [facility] Monocytes/100 leukoc ytes in Blood by Automated count [facility] Neutrophils [#/volum e] in Blood by Automated count [facility] Neutrophils/100 leukocytes in Blood by Automated count [facility] Nucleated erythrocyt es [Presence] in Blood by Automated count [facility] Patient Education Colon polyps H emorrhoids (DC) Diverticulosis (DC) Know your Meds [facility] Work Phone: Patient referral [facility] Work Phone: Platelet mean volume [Entitic volume] in Blood by Automated count [facility] Platelets [#/volume] in Blood [facility] Immunizations Immunization Date Immunization Notes Care Provider Fa cility 02-28-2022 COVID-19 mRNA Bivale nt Booster (Pfizer) MD Susan Ayala Work Phone: [facility] 04-20-2021 COVID-19 mRNA, Comirnaty (Pfizer) MD Susan Ayala Work Phone: [facility] 08-27-2020 COVID-19 mRNA, Comirnaty (Pfizer) MD Susan Ayala Work Phone: [facility] 08-07-2020 COVID-19 Levon Pimentel (Pfizer) MD Susan Ayala Work Phone: [facility] Payers Date Payer Category Payer Self-pay [id number] 1965 Unknown [id number] 2.16.84 0.1.259388.3.579.2.593 1965 Unknown [id number] 2.16.84 0.1.260864.3.579.2.593 1964 Unknown [id number] 2.16.84 0.1.465747.3.579.2.593 1964 Unknown [id number] 2.16.84 0.1.085172.3.579.2.593 1964 Unknown [id number] 2.16.84 0.1.049921.3.579.2.593 1964 Unknown [id number] 2.16.84 0.1.420740.3.579.2.593 1964 Unknown [id number] 2.16.84 0.1.527104.3.579.2.593 1964 Unknown [id number] 2.16.8 40.1.483621.3.579.2.177 1964 Unknown [id number] 2.16.84 0.1.309844.3.579.2.1259 1964 Unknown [id number] 2.16.84 0.1.194968.3.579.2.1259 1964 Unknown [id number] 2.16.84 0.1.839300.3.579.2.1259 1964 Unknown [id number] 2.16.84 0.1.336756.3.579.2.1259 1964 Unknown [id number] 2.16.84 0.1.303852.3.579.2.9 1964 Unknown [id number] 2.16.84 0.1.055151.3.579.2.1258 1964 Unknown [id number] 2.16.84 0.1.632645.3.579.2.1258 1964 Unknown [id number] 2.16.84 0.1.554234.3.579.2.1258 1964 Unknown [id number] 2.16.84 0.1.059052.3.579.2.1258 1964 Unknown [id number] 2.16.84 0.1.837195.3.579.2.1258 1964 Unknown [id number] 2.16.84 0.1.081085.3.579.2.1258 1964 Unknown [id number] 2.16.840 .1.233250.3.579.2.1258 1965 Unknown [id number] 2.16.840 .1.395277.3.579.2.9 1960 Medicaid [id number] 1960 Medicare [id number]. [id number] [facility] [id number] Unknown [id number] 2.16.8 40.1.122331.3.579.2.531 Unknown [id number] 2.16.8 40.1.765436.3.579.2.531 Unknown [id number] 2.16.8 40.1.801436.3.579.2.531 Unknown [id number] 2.16.8 40.1.550447.3.579.2.531 Unknown [id number] 2.16.8 40.1.990076.3.579.2.531 Unknown [id number] 2.16.8 40.1.365264.3.579.2.531 Unknown [id number] 2.16.8 40.1.195851.3.579.2.531 Unknown [id number] 2.16.8 40.1.930875.3.579.2.531 Unknown [id number] 2.16.8 40.1.009007.3.579.2.531 Social History Date Type Detail Facility Tobacco smoking status ORIS Unknown if ever smoked [facility] Work Phone: Start: 1965 Sex Assigned At Female F [facility] Sex Assigned At Sex Assigned At Bir th [employer] Other Start: 05-02-2023 End: 12-05-2023 Tobacco smoking status NHIS Ex-smoker (finding) [facility] Medical Equipment Procedure Code Equipment Code Equipment Origin al Text Equipment Identifier Dates Biopsy, breast, with lumpectomy Imaging lesion localization marker, implantable [id number] [facility] Start: 08-01-2023 Goals Date Patient Goal Desired Activity /State Clinical Notes 06-14-2022 to 12-21-2023 Note Date & Type Note Facility 12-21-2023 Chief complaint+Reason for visit Narrative Reason for Visit Screening for colon cancer Type 2 diabetes mellitus with hyperglycemia Invasive ductal carcinoma of left breast Osteopenia Invasive ductal carcinoma of left breast Invasive ductal carcinoma of left breast Osteopenia [facility] Work Phone: 1(540) 952-418207-30-2024 [facility]* Encounter Date Diagnosis Assessment Notes Treatment Notes Treatment Clinical Notes Mar, Invasive ductal carcinoma of left breast (ICD-10 - C50.912) Reviewed results. Grade 1. D/w daughter on speaker - phone. Appt made w Dr. García on 04/05 at 2pm. Path report and mamm reports sent to their office. [employer] Other [id number] Evaluation note* Encounter Date Diagnosis Assessment Notes Treatment Notes Treatment Clinical Notes Mar, Elevated triglycerides with high cholesterol (ICD-10 - E78.2) [employer] Other 11-03-2023 Evaluation note* Encounter Date Diagnosis [...] verbalized understanding and agreement with treatment plan. [employer] Other 10-02-2023 Evaluation note* Encounter Date Diagnosis Assessment Notes Treatment Notes Treatment Clinical Notes Feb, Abnormal mammogram of left breast (ICD-10 - R92.8) [employer] Other 10-02-2023 Evaluation note* Encounter Date Diagnosis Assessment Notes Treatment Notes Treatment Clinical Notes Feb, Elevated triglycerides with high cholesterol (ICD-10 - E78.2) Called pharmacy. They do not carry the med she is interested in the [place]. Changed rx and sent to [facility]. [employer] Other 08-23-2023 Evaluation note* Encounter Date Diagnosis Assessment Notes Treatment Notes Treatment Clinical Notes Dec, Elevated fasting glucose (ICD-10 - R73.01) Pt states Dr. Blanca is helping her wean the zyprexa. Will recheck labs listed below and return for OV in Apr. Dec, Hypothyroidism (ICD-10 - E03.9) Labs reviewed and normal. Continue present medication [employer] Other 05-09-2023 Evaluation note* Encounter Date Diagnosis Assessment Notes Treatment Notes Treatment Clinical Notes September, Skin candidiasis (ICD-10 - B37.2) Very mild erythema and discoloration. Recommend OTC Gold Valadez Powder. Call if not improving. [employer] Other 03-01-2023 Evaluation note* Encounter Date Diagnosis [...] w him from our last office visit. [employer] Other 02-07-2023 Evaluation note* Encounter Date Diagnosis Assessment Notes Treatment Notes Treatment Clinical Notes Jun, Acute vaginitis (ICD-10 - N76.0) New problem - sent culture for yeast/BV/trich. will call in 1-2 days when results are back. [employer] Other Chief complaint+Reason for visit Narrative* Chief Complaint NEW breast cancer referral to gastro Follow Up New Patient, Left Breast Cancer BH breast cancer breast cancer Left breast cancer Left breast cancer Left breast cancer Left breast cancer Screening Screening Reason for Visit Invasive ductal carc inoma of left breast Osteopenia Screening for colon cancer Type 2 diabetes mellitus with hyperglycemia Invasive ductal carcinoma of left breast Osteopenia Invasive ductal carcinoma of left breast [facility] Work Phone: Evaluation noteNo assessment information available [facility] Work Phone: Evaluation noteNo InformationNort [employer] Other Evaluation note* Diagnosis Onset Date Resolution Status Hematoma of breast following procedure acute [facility] Work Phone: Evaluation note* Diagnosis Onset Date Resolution Status Hematoma of breast following procedure acute Allergic rhinitis acute GERD (gastroesophageal reflux disease) acute Hyperlipidemia acute [facility] Work Phone: Evaluation note* Diagnosis Onset Date Resolution Status Hematoma of breast following procedure acute Allergic rhinitis acute GERD (gastroesophageal reflux disease) acute Hyperlipidemia acute Invasive ductal carcinoma of left breast acute Osteopenia acute [facility] Work Phone: Evaluation note* Diagnosis Onset Date Resolution Status Allergic rhinitis acute GERD (gastroesophageal reflux disease) acute Hyperlipidemia acute Invasive ductal carcinoma of left breast acute Osteopenia acute Screening for colon cancer a cute Type 2 diabetes mellitus with hyperglycemia acute Invasive ductal carcinoma of left breast acute Osteopenia acute [facility] Work Phone: Evaluation note* Diagnosis Onset Date Resolution Status Invasive ductal carcinoma of left breast acute Osteopenia acute Screening for colon cancer a cute Type 2 diabetes mellitus with hyperglycemia acute Invasive ductal carcinoma of left breast acute Osteopenia acute Invasive ductal carcinoma of left breast acute [facility] Work Phone: Evaluation note* Diagnosis Onset Date Resolution Status Screening for colon cancer a jayceee Type 2 diabetes mellitus with hyperglycemia acute Invasive ductal carcinoma of left breast acute Osteopenia acute Invasive ductal carcinoma of left breast acute Invasive ductal carcinoma of left breast acute Osteopenia acute [facility] Work Phone: Evaluation note* Diagnosis Onset Date Resolution Status Invasive ductal carcinoma of left breast acute Osteopenia acute Invasive ductal carcinoma of left breast acute Invasive ductal carcinoma of left breast acute Osteopenia acute Invasive ductal carcinoma of left breast acute [facility] Work Phone: Evaluation note* Diagnosis Onset Date Resolution Status Invasive ductal carcinoma of left breast acute Osteopenia acute Invasive ductal carcinoma of left breast acute Invasive ductal carcinoma of left breast acute Osteopenia acute [facility] Work Phone: History and physical note Author Lisa Rubalcava [facility] December 05, 2023 7:53am Note Date/Time December 05, 2023 7:54 am [facility] [address] [place] [address] Gastroenterology H&P Signed Patient: Melony Manley MR#: [id number] : 1965 Acct:[id number] Age/Sex: 58 / F Adm Date: 4 Loc: Room: Type: [facility] Attending Dr: Lisa Rubalcava DO Copies to: DO Susan Caba MD~ Date of Service: 12/05/2023 HISTORY & PHYSICAL: Patient's history with special attention to the cardiovascular, pulmonary systems and the current problem was reviewed with the patient immediately prior to the procedure. Present medications and doses reviewed in the EMR. Allergies and pertinent laboratory tests were also reviewedat this time in the EMR. The physical examination, as below, was then performed. Indication, assessment and HPI: 58-year-old female who presents for screening colonoscopy. She denies any GI complaints. No prior colonoscopy Family history of GI malignancy? No PHYSICAL EXAMINATION General appearance: cooperative, NAD Skin: No jaundice, no rash or lesions Head: NCAT Eyes: Anicteric Neck: Supple Lungs: Normal respiratory effort, no use of accessory muscles Abdomen: Soft, nondistended Neuro: No focal deficits, Ox3. REVIEW OF SYSTEMS Constitutional: Denies malaise, fevers Cardiovascular: Denies chest pain, palpitations Respiratory: Denies shortness of breath, wheezing Gastrointestinal: As per HPI Genitourinary: Denies dysuria, polyuria Musculoskeletal: Denies joint swelling, joint stiffness Neurological: Denies confusion, numbness, tingling Endocrine: Denies fatigue Written informed consent obtained from the patient. Risks (including but not limited to perforation, infection, bloating, bleeding, need for emergent surgeryand loss of life), benefits and alternatives explained and questions answered. The patient verbalized understanding. Based on history patient is an appropriate candidate for the procedure. Lisa Rubalcava DO Documented By: Lisa Rubalcava DO 12/05/23 0752 Signed By: <Electronically signed by Lisa Rubalcava DO> 12/05/23 0756 [facility] Work Phone: History general Narrative - Reported* Type Description Date Medical History Gastroesophageal ref lux disease, esophagitis presence not specified Medical History Bipolar 1 disorder, depressed Medical History Acquired hypothyroidism Medical History Hypercholesterolemia Medical History BMI 28.0-28.9,adult Medical History Hypothyroidism Medical History Chronic kidney disease, stage 3 unspecified Medical History Elevated fasting glucose Medical History Pain of right upper arm Medical History [place] use Medical History Vaginal atrophy Surgical History tubal ligation 2016 Surgical History wisdom teeth Surgical History CATARACT EXTRACTION- LEFT 01/25 17 Surgical History DETACHED RETINE REPAIR (LEFT) 0 06/2021 Surgical History CATARACT EXTRACTION- RIGHT 02/06 017 Hospitalization History SEE SURGICAL HX [employer] Other Hospital Discharge instructions Additional Instructions DISCHARGE INSTRUCTIONS FOR GENERAL SURGERY YOUR ACTIVITY MAY INCLUDE: No restrictions on activities I recommend wearing a bra for support throughout the day. It is not necessary to sleep with it. Avoid lifting objects greater than 5 pounds over your head using your left arm for 2 weeks however I do want you to utilize your arm through its full range of motion during that period of time and beyond WOUND CARE/INCISION CARE: -The sutures are underneath the skin and will dissolve by themselves. The incisions are covered with surgical glue, there is no need for additional Band-Aids It is safe to get the wounds wet with soap and water in the shower, no hot tubs or tub baths. -Is it common to feel pulling or sharp sticking sensations in the area of incision, these sensations are a part of the normal healing process. -If you develop fever, increasing pain, redness, or swelling around the incision, please notify our office MEDICATION -Resume all previous medications that you were taking for problems unrelated to your surgery, unless informed otherwise. If there are any problems with this, please call the original prescribing doctor. If you have any other questions regarding medications, please call our office. -Over the counter medications such as Acetaminophen, Ibuprofen, Naproxen, and others may be used as directed for pain unless a prescription was provided.[facility] Work Phone: Hospital Discharge instructions Additional Instructions DISCHARGE INSTRUCTIONS FOR GENERAL SURGERY YOUR ACTIVITY MAY INCLUDE: No limitations on activities I recommend wearing a bra for support throughout the day. It is not necessary to sleep with it. WOUND CARE/INCISION CARE: The sutures are underneath the skin and will dissolve by themselves. The incisions are covered with surgical glue, there is no need for additional Band-Aids It is safe to get the wounds wet with soap and water in the shower, no hot tubs or tub baths. -Is it common to feel pulling or sharp sticking sensations in the area of incision, these sensations are a part of the normal healing process. -If you develop fever, increasing pain, redness, or swelling around the incision, please notify our office MEDICATION -Resume all previous medications that you were taking for problems unrelated to your surgery, unless informed otherwise. If there are any problems with this, please call the original prescribing doctor. If you have any other questions regarding medications, please call our office. -Over the counter medications such as Acetaminophen, Ibuprofen, Naproxen, and others may be used as directed for pain unless a prescription was provided.[facility] Work Phone: Progress note Author Christine Velazquez [facility] December 21, 2023 10:26am Note Date/Time December 21, 2023 9: 55am [facility] [place] [address] Cancer Center Note Signed Patient: Melony Manley MR#: [id number] : 1965 Acct:[id number] Age/Sex: 58 / F Type: REG AMB Date of Service: 12/21/23 Copies to: Susan Ayala MD~ Assessment & Plan A/P (1) Invasive ductal carcinoma of left breast: (2) Osteopenia: Plan Melony is a 58-year-old nice lady with a stage IIa, pT1b, PN 1, MX left breast centrally located invasive ductal carcinoma with 1+ out of 4 lymph node for invasive cancer. ER/RI reported from the 03/20/2023 core biopsy to be ER 100% positive, PER 60% positive and HER2 manolo 2+ by IHC, negative by FISH, Ki 67 low 5%. Surgical pathology report is not dictating the status of the ER, RI and HER2/manolo. Initial consult for medical oncology on 09/21/2023: We went over her new diagnosis of new left breast invasive ductal carcinoma, stage IIa, and we went over and discussed possible options of treatment based on the ER, RI and HER2/manolo status considering that she has 1 positive lymph node. At this point it is important to obtain the pathology report of the hormone receptor and HER2 receptor status before identifying the treatment plan. She will definitely needadjuvant radiation therapy regardless of the status of those results however thedetermination about chemotherapy now versus Oncotype DX to decide if she needs chemotherapy and followed by endocrine therapy will be determined once the pathology report is available. - Her Oncotype Dx score 10/06/23 came back 17 with only 15% chance of recurrence at 9 years with use of AI or Tamoxifen alone. No benefit from adding adjuvant chemoand therefore, no need for adjuvant chemotherapy. She will need adjuvant radiation. She will need adjuvant endocrine therapy for 5-10 years. She had DEXA scan in 07/2022 at [facility]. It revealed osteopenia with Tscore -0.6 Since the Oncotype DX score is low 17, no need for adjuvant chemotherapy; therefore, was sent to radiation oncology for adjuvant radiation and this is to be followed by aromatase inhibitor with Femara 2.5 mg once daily. She underwent whole left breast adjuvant radiation to a dose of 40 Avila in 15 fractions completed 12/04/23. She started Femara but held it due to drenching sweats and severe hot flashes and joint pain mainly in the left ankle after 1 week. She does not want to start it again Plan: I gave her the option of trying exemestane versus tamoxifen and explained the side effects of each and she wanted to try the tamoxifen 20 mg daily. 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 She agreed to proceed. She asked about hot flashes medication therefore we will start her on Effexor 37.5 mg daily. Wecan titrate up in few weeks if hot flashes are severe. In terms of the osteopenia she is to continue calcium 500 mg twice daily with vitamin D 2000 unit daily and Fosamax once a week and she needs a bone density scan every 2 years. Since bone density scan was in 07/2022 at [facility],next one will be 07/2024. She will need screening mammogram as well every july. For her mild chronic thrombocytopenia, it may be related to [place] and Seroquelbut will check Iron studies, B12 and folate next time as well. Orders: Orders Hepatic Panel 8 Weeks C50.912 - Malignant neoplasm of unspecified site of left female breast Medications: New tamoxifen 20 mg PO DAILY 30 tabs 2RF venlafaxine ER (Effexor XR) 37.5 mg PO DAILY 30 caps 2RF Discontinued letrozole (Femara) Discontinued Reason: Doctor's Order 2.5 mg PO DAILY 90 tabs 3RF Patient Instructions: start tamoxifen start effexor LFT in 8 weeks and return CHEMO PLAN No Active Chemotherapy History of Present Illness BEN Ty is a 58 year old white female with history of osteopenia, Fibrocyctic breat disease, who was referred to our medical oncology office by Dr. García for a new left breast invasive ductal carcinoma in the center of the left breastthat is reported in the surgeon note as ER/RI positive and HER2/manolo pending however there are no reports of that on the biopsy of the lumpectomy path reports. Her story started when she had abnormal screening mammogram of the left central breast that required breast biopsy on 05/16/2023. Pathology from the left breast biopsy revealed benign tissues and no invasive cancer or DCIS or LCIS, however because MRI of the breast revealed suspicious findings on the left breast patient was taken to lumpectomy on 08/01/2019 for and the lumpectomy pathology report revealed invasive ductal carcinoma with positive posterior margin but negative other margins and 1 out of 4 sentinel lymph nodes was positive for invasive cancer. The pathology report does not report any status of the ER, RI and HER2/manolo, however Dr. García note to dictate that patient was ER/RI positive and HER2/manolo was pending. Left breast biopsy 05/16/23: Pathological Diagnosis Left breast mass at 6:00 [...] breast mass 6:00, 2 cm from nipple 08/01/23 Lumpectomy path: Pathological Diagnosis A. Rives node, left axilla, biopsy: Metastatic carcinoma to 1 lymph node, out of 4 lymph nodes identified (1/4) B. 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 CAP CANCER CASE SUMMARY SPECIMEN Procedure: Excision (less than total mastectomy) Specimen Laterality: Left TUMOR Histologic Type: Invasive carcinoma of no special type (ductal) Glandular (Acinar) / Tubular Differentiation: Score 2 Nuclear Pleomorphism: Score 2 Mitotic Rate: Score 2 Overall Grade: Grade 2 (scores of 6 or 7) Tumor Size: Greatest dimension of largest invasive focus (Millimeters) - 8 mm Ductal Carcinoma In Situ (DCIS): Present Lymphatic and / or Vascular Invasion: Not identified Treatment Effect in the Breast: No known presurgical therapy MARGINS Margin Status for Invasive Carcinoma: Invasive carcinoma present at margin Margin(s) Involved by Invasive Carcinoma: Posterior - focal Margin Status for DCIS: All margins negative for DCIS Distance from DCIS to Closest Margin: Less than - 1 mm Closest Margin(s) to DCIS: Posterior REGIONAL LYMPH NODES Regional Lymph Node Status: Tumor present in regional lymph node(s) Number of Lymph Nodes with Macrometastases - 1 Number of Lymph Nodes with Micrometastases - 0 Size of Largest Manjit Metastatic Deposit - 4 mm Extranodal Extension - Present, 2 mm or less Total Number of Lymph Nodes Examined (sentinel and non-sentinel): 4 Number of Rives Nodes Examined: 4 pTNM CLASSIFICATION (AJCC 8th Edition) Reporting of pT, pN, and (when applicable) pM categories is based on informationavailable to the pathologist at the time the report is issued. As per the AJCC (Chapter 1, 8th Ed.) it is the managing physician's responsibility to establish the final pathologic stage based upon all pertinent information, including but potentially not limited to this pathology report. pT Category: pT1b pN Category: pN1a Patient was only taken for a second surgery on 08/29/2023 which revealed no residual invasive cancer or other malignancies detected then. 2nd surgery pathology 08/29/23: Pathological Diagnosis Left breast cancer posterior margin, reexcision: -Negative for residual malignancy -Moderate postbiopsy change -Incidental 1 small focus of atypical adenosis, also very away from margin -AE1/3 immunostain with provided control are also examined on A4, A5, and A6, supporting the above interpretation Initial medical oncology consult done on 09/21/23. Patient recovered from the 2 surgeries very well and incision have healed. Patient denies any fevers or chills or erythema or swelling of the left breast area. Initially she denied any masses she ever felt. She denies any nipple bleeding or discharge or breast trauma. Since she is pT1b, PN 1, and ask she was staged as stage IIa and was referred tomedical oncology for medical Oncology opinion for any adjuvant systemic treatment. 10/11/23: She is here for results of the Oncotype DX score and final recommendations regarding her adjuvant treatmetn for her left breast cancer. Reviewing core biopsy from the left breast done in March 2023 revealed that it was ER positive on the percent, RI +60%, low Ki-67 of only 5%, HER2 was 2+ by HC but negative by FISH. Her Oncotype Dx score 10/06/23 came back 17 with only 15% chance of recurrence at9 years with use of AI or Tamoxifen alone. No benefit from adding adjuvant chemoand therefore, no need for adjuvant chemotherapy. She will need adjuvant radiation. She will need adjuvant endocrine therapy for 5-10 years. She had DEXA scan in 07/2022 at [facility]. It revealed osteopenia with Tscore -0.6 12/21/23: She is here for 2 months active surveillance visit for her history of breast cancer and for osteopenia management. She has not had her labs yet as they are scheduled next week. Since the Oncotype DX score is low 17, no need for adjuvant chemotherapy; therefore, was sent to radiation oncology for adjuvant radiation and this is to be followed by aromatase inhibitor with Femara 2.5 mg once daily. She underwent whole left breast adjuvant radiation to a dose of 40 Avila in 15 fractions completed 12/04/23. She started Femara but held it due to drenching sweats and severe hot flashes and joint pain mainly in the left ankle after 1 week. She does not want to start it again Rest of 14 point systems were reviewed and are negative otherwise. Summary of Therapies Summary of Therapies: Pending for the results of the HER2/manolo and actual path report for the ER/RI status, possibly need Oncotype Dx testing to determine if she needs adjuvant chemotherapy. She will need adjuvant radiation. She will need adjuvant endocrine therapy if she is ER/RI positive. Intake Vitals/Pain Assessment 12/21/23 09:56 Height 5 ft 4 in Weight 71.668 kg BMI 27.1 Body Fat % 40.75 BP 136/81 Blood Pressure Location Rt brachial Position Sitting Temp 97.9 F Temp Source Temporal Pulse 95 Pulse Source NIBP Respiration 20 Pulse Oximetry (%) 100 Oxygen Delivery Method room air Are you having pain? No Intake Visit Reasons: f/u moved up from 01/02 per 12/13 triage Allergies Penicillins Allergy (Severe, Verified 11/20/23 08:06) Swelling of Lip/Tongue/Throat Cephalosporins Allergy (Unknown, Verified 11/20/23 08:06) Unknown Reaction - Last Reconciled 12/21/23 by Virginia Spence alendronate 70 mg PO QWEEK ascorbic acid (vitamin C) (Vitamin C) 500 mg PO QAM buspirone 5 mg PO BID glipizide ER 5 mg PO DAILY letrozole (Femara) 2.5 mg PO DAILY levothyroxine TAKE 1 TABLET BY MOUTH EVERY DAY IN THE MORNING ON EMPTY STOMACH FOR 90 DAYS lithium carbonate ER 450 mg PO QPM omeprazole TAKE 1 CAPSULE BY MOUTH EVERY MORNING quetiapine 200 mg PO QPM rosuvastatin TAKE 1 TABLET BY MOUTH EVERY EVENING trazodone 25 mg PO HS Gastrointestinal Is the patient taking opioids for pain control?: No Bowel Protocol for Opioids Given: No Nurse's Note: Patient is here for a 10 week follow up. See triage note. Patient was taking Letrozole and started experiencing joint pain and hotflashes. Patient has not taking Letrozole for the last 6 days. [facility] Medical History Medical History Diabetes Osteopenia Invasive ductal carcinoma of left breast Left breast cancer with T3 tumor, >5 cm in greatest dimension Ingrown right greater toenail removed Ingrown left greater toenail removed Fibrocystic breast determined by biopsy Vaginal atrophy [place] use Elevated fasting glucose Former smoker Depression Anxiety GERD (gastroesophageal reflux disease) Schizophrenia Bipolar disorder Hypothyroidism Hyperlipidemia Breast cancer left Surgical History Surgical History Status post left breast lumpectomy 08/01/2023 with re-excision 08/29/2023 H/O eye surgery retina 2019 H/O wisdom tooth extraction History of laparoscopy uterus scraping History of tubal ligation History of retinal detachment left, surgery to repair History of phacoemulsification of cataract of both eyes with intraocular lens implantation Family History Family History Mother Malignant neoplasm of stomach Cancer stomach Father Heart disease Hypertension Social History Social History Smoking status: Former smoker What tobacco products do you use: cigarettes Smoking quit date/years: <= 15 years ago Within the past year, how often did you have a drink containing alcohol: never AUDIT-C Alcohol total score: 0 AUDIT-C Alcohol score interpretation: A score less than 3 is consistent with normal alcohol consumption. In the past 12 months, have you used illegal drugs or prescription drugs for non-medical reasons?: No Review of Systems ROS Details: All systems reviewed & no additional complaints except as documented General: Patient denied fevers, chills, rigors, weight loss or loss of appetite. Head: Patient denied any headaches or vision changes Thoracic: Patient denied any shortness of breath or cough or hemoptysis Cardiovascular patient denies any chest pain or leg edema GI: Patient denies any nausea vomiting rectal bleed diarrhea : Patient denied gross hematuria. Hematology: Patient denied any bleeding from any source. No easy bruising. Lymphatic: No enlarged LAP anywhere. Skin: Normal skin exam no rashes or suspicious lesions. Neurological patient denies any headache or dizziness or focal weakness or sensory changes. Physical Exam EXAM Physical exam: KPS 90 General: Alert and oriented, no acute distress. HEENT: Normocephalic, extraocular movements intact Chest: Normal work of breathing on room air Breast: Left breast shows surgical incisions healing well. No palpable mass or abnormality. I am unable to feel the BioSorb. Contralateral breast within normal limits. Lymph: No palpable cervical, supraclavicular, axillary lymphadenopathy bilaterally. Abdomen: Nonacute MSK: Extremities within normal limits Results - [facility] ([facility]c) LAB RESULTS No Data to Display Dictated By: Christine Velazquez MD DD/ [id number] Signed By: <Electronically signed by Christine Velazquez MD> 12/21/23 1026 [facility] Work Phone: Progress note Author [facility] January 03, 2024 2:37pm Note Date/Time January 03, 2024 1: 58pm [facility] [place] [address] Cancer Center Note Signed Patient: Melony Manley MR#: [id number] : 1965 Acct:[id number] Age/Sex: 58 / F Type: REG AMB Date of Service: 01/03/24 Copies to: Susan Ayala MD~ Assessment & Plan (1) Invasive ductal carcinoma of left breast: Plan: Return to clinic as needed Assessment: 58-year-old female with [id number] invasive ductal carcinoma of the left breast, grade 2, ER/RI positive HER2 negative. Patient has undergone lumpectomy and sentinel lymph node biopsy with final pathology showing 8 mm tumor, grade 2, there was associated DCIS. No LVSI. There was 1 of 4 lymph nodes involved. With a 4 mm metastatic deposit with 2 mm or less of extranodal extension. Original path showed positive invasive carcinoma focally at the posterior marginas well as a close DCIS margin posteriorly of less than a millimeter. Patient underwent reexcision in August 2023 with final pathology negative for any residual disease. Oncotype returned 17 . December 04, 2023 patient completed whole left breast radiation 40 Avila in 15 fractions using DIBH for cardiac sparing. She is tolerating her endocrine therapy with hot flashes. She has recovered well from her radiation. We reviewed light massage techniques to help prevent radiation and surgical fibrosis. She has follow-up with medical oncology and surgery we will discharge her in their care. We will see her back if there is need for additional radiation or radiation related concerns. History of Present Illness HPI 58 year old female presented with abnormal screening mammogram of the left central breast. Oncologic history: February 23, 2023 diagnostic mammogram shows a focal lobular mass measuring 9 mm in the lower inner quadrant of the right breast. Lesion appears more contractedthan on the prior exam. Slight decrease in pleomorphic microcalcifications. BI-RADS 5 March 21, 2023 patient underwent a left breast lower inner quadrant stereotactic biopsy confirming invasive ductal carcinoma, provisional grade 1, with DCIS. Strongly ER/RI positive HER2 was equivocal 2+ There is a report from April 2023 stating HER2 negative from Patient was plan for radioactive seed localization however at the time of presentation on May 16 seed placement was postponed ultrasound-guided biopsy of the mass at 6 o'clock position was performed. 05/16/23: ultrasound?guided core biopsy of left breast mass at 6:00 (2 cm from nipple), - Benign breast parenchyma featuring fibrocystic changes (florid, usual ductal hyperplasia) with variably fibrotic stroma. - Focal fibroadenomatoid change. - Small microcalcification located within a benign mammary duct. - No in situ or invasive carcinoma identified. June 29, 2023 breast MRI showed small T1 hyperintense ovoid cavity in the anterior lateral left breast corresponding to biopsy clip site. No abnormal enhancement. There is a 7 mm mass present 6:00 location 7.3 cm from the nipple there is no enlarged or suspicious appearing axillary lymph nodes. No enhancement identified at the biopsy site or any suspicious findings in the right breast 08/01/23 Lumpectomy and sentinel lymph node biopsy. Final path showed an 8 mm invasive ductal carcinoma with DCIS. There was no LVSI. There was invasive carcinoma present at the margin posterior. Focal. All margins are negative forDCIS. Closest margin was less than 1 mm posteriorly. Rives lymph node biopsy showed macrometastasis and 1 of 4 lymph nodes size of the largest manjit metastatic deposit was 4 mm. There was extranodal extension present 2 mm or less. [id number] 08/29/2023 return to OR for reexcision, no residual disease noted. Oncotype Dx score 17. December 04, 2023 patient completed whole left breast radiation 40 Avila in 15 fractions using DIBH for cardiac sparing. Tolerated well with mild erythema consistent with the radiation field Since her last visit she has seen medical oncology and been switched to letrozole. Intake Vitals/Pain Assessment 01/03/24 13:56 Weight 72.121 kg BP 147/77 H Blood Pressure Location Lt brachial Position Sitting Temp 99.1 F H Temp Source Oral Pulse 107 H Pulse Source NIBP Respiration 16 Pulse Oximetry (%) 98 Oxygen Delivery Method room air Are you having pain? No Intake Visit Reasons: Med Onc/Rad Onc Follow Up 1 Month Allergies Penicillins Allergy (Severe, Verified 11/20/23 08:06) Swelling of Lip/Tongue/Throat Cephalosporins Allergy (Unknown, Verified 11/20/23 08:06) Unknown Reaction - Last Reconciled 01/03/24 by Shanti Mesa RN alendronate 70 mg PO QWEEK ascorbic acid (vitamin C) (Vitamin C) 500 mg PO QAM buspirone 5 mg PO BID glipizide ER 5 mg PO DAILY levothyroxine TAKE 1 TABLET BY MOUTH EVERY DAY IN THE MORNING ON EMPTY STOMACH FOR 90 DAYS lithium carbonate ER 450 mg PO QPM omeprazole TAKE 1 CAPSULE BY MOUTH EVERY MORNING quetiapine 200 mg PO QPM rosuvastatin TAKE 1 TABLET BY MOUTH EVERY EVENING trazodone 25 mg PO HS Gastrointestinal Is the patient taking opioids for pain control?: No Bowel Protocol for Opioids Given: No Bowel Pattern: Regular Bowel Movement Aid(s): None Falls Fall Precaution Measures Taken: Patient in chair [facility] Medical History Medical History Diabetes Osteopenia Invasive ductal carcinoma of left breast Left breast cancer with T3 tumor, >5 cm in greatest dimension Ingrown right greater toenail removed Ingrown left greater toenail removed Fibrocystic breast determined by biopsy Vaginal atrophy [place] use Elevated fasting glucose Former smoker Depression Anxiety GERD (gastroesophageal reflux disease) Schizophrenia Bipolar disorder Hypothyroidism Hyperlipidemia Breast cancer left Surgical History Surgical History Status post left breast lumpectomy 08/01/2023 with re-excision 08/29/2023 H/O eye surgery retina 2019 H/O wisdom tooth extraction History of laparoscopy uterus scraping History of tubal ligation History of retinal detachment left, surgery to repair History of phacoemulsification of cataract of both eyes with intraocular lens implantation Family History Family History Mother Malignant neoplasm of stomach Cancer stomach Father Heart disease Hypertension Social History Social History Smoking status: Former smoker What tobacco products do you use: cigarettes Smoking quit date/years: <= 15 years ago Within the past year, how often did you have a drink containing alcohol: never AUDIT-C Alcohol total score: 0 AUDIT-C Alcohol score interpretation: A score less than 3 is consistent with normal alcohol consumption. In the past 12 months, have you used illegal drugs or prescription drugs for non-medical reasons?: No Physical Exam EXAM Physical exam: KPS 90 General: Alert and oriented, no acute distress. HEENT: Normocephalic, extraocular movements intact Chest: Normal work of breathing on room air Breast: Left breast shows surgical incisions well-healed. No residual skin changes from the radiation. Abdomen: Nonacute MSK: Extremities within normal limits Results - [facility] (Rad Onc) LAB RESULTS Glucose 143 mg/dL (74-106) H 12/22/23 10:30 BUN 13.0 mg/dL (7.0-18.0) 12/22/23 10:30 Creatinine 1.07 mg/dL (0.55-1.02) H 12/22/23 10:30 Sodium 143 mmol/L (136-145) 12/22/23 10:30 Potassium 5.0 mmol/L (3.5-5.1) 12/22/23 10:30 Chloride 107 mmol/L (98-107) 12/22/23 10:30 Carbon Dioxide 27.1 mmol/L (21.0-32.0) 12/22/23 10:30 Anion Gap 13.9 12/22/23 10:30 Calcium 10.0 mg/dL (8.5-10.1) 12/22/23 10:30 Total Protein 7.4 g/dL (6.4-8.2) 12/22/23 10:30 Albumin 4.1 g/dL (3.4-5.0) 12/22/23 10:30 Globulin 3.3 g/dL 12/22/23 10:30 Albumin/Globulin Ratio 1.2 12/22/23 10:30 Total Bilirubin 0.4 mg/dL (0.2-1.0) 12/22/23 10:30 AST 35 U/L (15-37) 12/22/23 10:30 ALT 42 U/L (14-59) 12/22/23 10:30 Alkaline Phosphatase 101 U/L (46-116) 12/22/23 10:30 Dictated By: Gaurav Jaime MD DD/ Signed By: <Electronically signed by Gaurav Jaime MD> 01/03/24 1437 [facility] Work Phone: Advance Directives Advance Directive Response Recorded Date/ Time Advance Directives No January 3:39pm Advance Directive Response Recorded Date/ Time Advance Directives No January 4:39pm Summary Purpose Family History Relationship Condition Age at Onset Recorded Date/T everardo Not Specified Malignant neoplasm of stomach Unknown Relationship Condition Age at Onset Recorded Date/T everardo Not Specified Malignant neoplasm of stomach Unknown Unknown Malignant neoplasm Unknown father Heart disease Unknown Hypertension Unknown Relationship Condition Age at Onset Recorded Date/T everardo mother Malignant neoplasm of stomach Unknown Unknown Malignant neoplasm Unknown father Heart disease Unknown Hypertension Unknown Reason for Referral Reason I called and made ap pt - 04/05 2pm. We are faxing path result. Diagnosis 1 Invasive ductal carc inoma of left breast (C50.912) Referral Organization [facility] Ivis hayes Referring Provider First Name Susan Referring Provider Last Name Jamie Referring Provider Specialty Family [facility] Referred Organization [facility] Referred Provider Geraldo García Referred Address ,[place], [place],[address] Referred Provider Specialty Surgery Referral Priority Routine Chief Complaint and Reason for Visit Chief Complaint Left Breast Cancer Left Breast Cancer Chief Complaint Left Breast Cancer Left Breast Cancer Check Up abnormal mri left breast cancer Reason for Visit Hematoma of breast f ollowing procedure Chief Complaint Left Breast Cancer Check Up abnormal mri left breast cancer left breast cancer Reason for Visit Hematoma of breast f ollowing procedure Chief Complaint Left Breast Cancer BH Check Up abnormal mri left breast cancer left breast cancer Runny Nose/ Sore Throat Reason for Visit Hematoma of breast f ollowing procedure Chief Complaint BH Check Up abnormal mri left breast cancer left breast cancer Runny Nose/ Sore Throat Breast Cancer Reason for Visit Hematoma of breast f ollowing procedure Allergic rhinitis GERD (gastroesophageal reflux disease) Hyperlipidemia Chief Complaint Check Up abnormal mri left breast cancer left breast cancer Runny Nose/ Sore Throat Breast Cancer BH breast cancer NEW breast cancer referral to gastro Reason for Visit Hematoma of breast f ollowing procedure Allergic rhinitis GERD (gastroesophageal reflux disease) Hyperlipidemia Invasive ductal carcinoma of left breast Osteopenia Chief Complaint left breast cancer left breast cancer Runny Nose/ Sore Throat Breast Cancer BH NEW breast cancer referral to gastro breast cancer Follow Up Reason for Visit Allergic rhinitis GERD (gastroesophageal reflux disease) Hyperlipidemia Invasive ductal carcinoma of left breast Osteopenia Screening for colon cancer Type 2 diabetes mellitus with hyperglycemia Invasive ductal carcinoma of left breast Osteopenia Chief Complaint Follow Up New Patient, Left Breast Cancer breast cancer breast cancer Left breast cancer Left breast cancer Left breast cancer Screening Screening Amb Documentation BH f/u moved up from 01/02 per 88 triage Left breast cancer Med Onc/Rad Onc Follow Up 1 Month Reason for Visit Invasive ductal carc inoma of left breast Osteopenia Invasive ductal carcinoma of left breast Invasive ductal carcinoma of left breast Osteopenia Invasive ductal carcinoma of left breast Chief Complaint Left breast cancer Left breast cancer Screening Screening Amb Documentation f/u moved up from 01/02 per 88 triage Med Onc/Rad Onc Follow Up 1 Month Follow Up Left breast cancer Reason for Visit Invasive ductal carc inoma of left breast Osteopenia Invasive ductal carcinoma of left breast Invasive ductal carcinoma of left breast Osteopenia Additional Source Comments Care Teams (unrecognized sec tion and content) Team Status: Active Member Role Status Dates Susan Ayala MD Primary Care Provider Active Team Status: Active Member Role Status Dates Susan Ayala MD Primary Care Provider Active Start: November 20, 2023 Geraldo García DO Referring Provider Active Start: November 20, 2023 Gaurav Jaime MD Attending [facility] er, Other Provider Active Start: November 20, 2023 Team Status: Active Member Role Status Dates Susan Ayala MD Primary Care Provider Active Start: November 27, 2023 Geraldo García DO Referring Provider Active Start: November 27, 2023 Gaurav Jaime MD Attending Provid er, Other Provider Active Start: November 27, 2023 Team Status: Inactive Member Role Status Dates Susan Ayala MD Primary Care Provider Active Start: December 05, 2023 End: December 05, 2023 Lisa Rubalcava DO Attending Provider Active St art: December 05, 2023 End: December 05, 2023 Team Status: Active Member Role Status Dates Susan Ayala MD Primary Care Provider Active Start: December 05, 2023 Lisa Rubalcava , DO Attending Provider, Other Provider Active Start: December 05, 2023 Team Status: Active Member Role Status Dates Susan Ayala MD Primary Care Provider Active Start: December 06, 2023 Chel Phillips CMA Attending Provider Active St art: December 06, 2023 Team Status: Inactive Member Role Status Dates Susan Ayala MD Primary Care Provider Active Start: December 21, 2023 End: December 21, 2023 Christine Velazquez MD Attending Provider Active Start: December 21, 2023 End: December 21, 2023 Team Status: Active Member Role Status Dates Susan Ayala MD Primary Care Provider Active Start: December 22, 2023 Christine Velazquez MD Attending Provider Active Start: December 22, 2023 Team Status: Inactive Member Role Status Dates Susan Ayala MD Primary Care Provider Active Start: January 03, 2024 End: January 03, 2024 Gaurav Jaime MD Attending Provider Active Start: January 03, 2024 End: January 03, 2024 Team Status: Active Member Role Status Dates Gavin Plaza MD Attending Provider Active Start: January 23, 2024 Team Status: Active Member Role Status Hilary Ayala MD Primary Care Provider Active Start: February 08, 2024 Christine Velazquez MD Attending Provider Active Start: February 08, 2024 Team Status: Inactive Member Role Status Hilary Ayala MD Primary Care Provider Active Start: February 15, 2024 End: February 15, 2024 Christine Velazquez MD Attending Provider Active Start: February 15, 2024 End: February 15, 2024 Team Status: Active Member Role Status Dates Susan Ayala MD Primary Care Provider Active Start: February 15, 2024 Christine Velazquez MD Attending Provider Active Start: February 15, 2024 Geraldo García , DO Referring Provider Active Start: February 15, 2024 Gaurav Jaime MD Active Star t: February 15, 2024 Team Status: Active Member Role Status Dates Susan Ayala MD Primary Care Provider Active Team Status: Inactive Member Role Status Dates Susan Ayala MD Primary Care Provider Active Start: October 11, 2023 End: October 11, 2023 Christine Velazquez MD Attending Provider Active Start: October 11, 2023 End: October 11, 2023 Team Status: Inactive Member Role Status Dates Susan Ayala MD Primary Care Provider Active Start: October 24, 2023 End: October 24, 2023 Gaurav Jaime MD Attending Provider Active Start: October 24, 2023 End: October 24, 2023 Christine Velazquez MD Referring Provider Active Start: October 24, 2023 End: October 24, 2023 Team Status: Active Member Role Status Dates Susan Ayala MD Primary Care Provider Active Start: November 02, 2023 Geraldo García , DO Referring Provider Active Start: November 02, 2023 Gaurav Jaime MD Attending Provid er, Other Provider Active Start: November 02, 2023 Team Status: Active Member Role Status Dates Susan Ayala MD Primary Care Provider Active Start: November 08, 2023 Geraldo García , DO Referring Provider Active Start: November 08, 2023 Gaurav Jaime MD Attending Provid er, Other Provider Active Start: November 08, 2023 Team Status: Active Member Role Status Dates Susan Ayala MD Primary Care Provider Active Start: November 13, 2023 Geraldo Itrbuy , DO Referring Provider Active Start: November 13, 2023 Gaurav Jaime MD Attending Provid er, Other Provider Active Start: November 13, 2023 Team Status: Active Member Role Status Dates Susan Ayala MD Primary Care Provider Active Start: November 22, 2023 Geraldo García , DO Referring Provider Active Start: November 22, 2023 Gaurav Jaime MD Attending Provid er, Other Provider Active Start: November 22, 2023 Team Status: Active Member Role Status Dates Susan Ayala MD Primary Care Provider Active Start: November 27, 2023 Geraldo García DO Referring Provider Active Start: November 27, 2023 Gaurav Jaime MD Attending Provid er, Other Provider Active Start: November 27, 2023 Team Status: Inactive Member Role Status Dates Susan Ayala MD Primary Care Provider Active Start: December 05, 2023 End: December 05, 2023 Lisa Rubalcava DO Attending Provider Active St art: December 05, 2023 End: December 05, 2023 Team Status: Active Member Role Status Dates Susan Ayala MD Primary Care Provider Active Start: December 05, 2023 Lisa Rubalcava DO Attending Provider, Other Provider Active Start: December 05, 2023 Team Status: Active Member Role Status Dates Susan Ayala MD Primary Care Provider Active Start: December 06, 2023 Chel Phillips CMA Attending Provider Active St art: December 06, 2023 Team Status: Active Member Role Status Dates Gavin Plaza MD Attending Provider Active Start: December 11, 2023 Team Status: Inactive Member Role Status Dates Susan Ayala MD Primary Care Provider Active Start: December 21, 2023 End: December 21, 2023 Christine Velazquez MD Attending Provider Active Start: December 21, 2023 End: December 21, 2023 Team Status: Active Member Role Status Dates Susan Ayala MD Primary Care Provider Active Start: December 22, 2023 Christine Velazquez MD Attending Provider Active Start: December 22, 2023 Team Status: Active Member Role Status Dates Susan Ayala MD Primary Care Provider Active Start: January 03, 2024 Christine Velazquez MD Attending Provider Active Start: January 03, 2024 Geraldo García DO Referring Provider Active Start: January 03, 2024 Gaurav Jaime MD Active Star t: January 03, 2024 Team Status: Inactive Member Role Status Dates Susan Ayala MD Primary Care Provider Active Start: January 03, 2024 End: January 03, 2024 Gaurav Jaime MD Attending Provider Active Start: January 03, 2024 End: January 03, 2024 Team Status: Active Member Role Status Dates Susan Ayala MD Primary Care Provider Active Start: September 26, 2023 Ania Blanca MD Attending Provider Active St art: September 26, 2023 Team Status: Inactive Member Role Status Dates Susan Ayala MD Primary Care Provide r, Attending Provider Active Start: October 03, 2023 End: October 03, 2023 Team Status: Active Member Role Status Dates Susan Ayala MD Primary Care Provider Active Start: November 29, 2023 Geraldo García DO Referring Provider Active Start: November 29, 2023 Gaurav Jaime MD Attending Provid er, Other Provider Active Start: November 29, 2023 Team Status: Active Member Role Status Dates Susan Ayala MD Primary Care Provider Active Start: December 21, 2023 Christine Velazquez MD Attending Provider Active Start: December 21, 2023 Geraldo García DO Referring Provider Active Start: December 21, 2023 Gaurav Jaime MD Active Star t: December 21, 2023 Team Status: Inactive Member Role Status Dates Susan Ayaal MD Primary Care Provide r, Attending Provider Active Start: July 11, 2023 End: July 11, 2023 Team Status: Inactive Member Role Status Dates Susan Ayala MD Primary Care Provider Active Start: July 12, 2023 End: July 12, 2023 Geraldo García DO Attending Provider Active Start: July 12, 2023 End: July 12, 2023 Team Status: Inactive Member Role Status Dates Susan Ayala MD Primary Care Provider Active Start: July 19, 2023 End: July 19, 2023 Geraldo García DO Attending Provider Active Start: July 19, 2023 End: July 19, 2023 Team Status: Active Member Role Status Hilary Ayala MD Primary Care Provide r, Attending Provider Active Start: July 24, 2023 Team Status: Inactive Member Role Status Hilary Ayala MD Primary Care Provider Active Start: August 01, 2023 End: August 01, 2023 Geraldo García DO Attending Provider Active Start: August 01, 2023 End: August 01, 2023 Team Status: Inactive Member Role Status Dates Susan Ayala MD Primary Care Provide r, Attending Provider Active Start: August 11, 2023 End: August 11, 2023 Team Status: Inactive Member Role Status Dates Susan Ayala MD Primary Care Provider Active Start: August 29, 2023 End: August 29, 2023 Geraldo García DO Attending Provider Active Start: August 29, 2023 End: August 29, 2023 Team Status: Active Member Role Status Dates Gavin Plaza MD Attending Provider Active Start: September 19, 2023 Team Status: Active Member Role Status Dates Susan Ayala MD Primary Care Provider Active Start: September 21, 2023 Christine Velazquez MD Attending Provider Active Start: September 21, 2023 Geraldo García DO Referring Provider Active Start: September 21, 2023 Team Status: Inactive Member Role Status Dates Susan Ayala MD Primary Care Provider Active Start: September 21, 2023 End: September 21, 2023 Christine Velazquez MD Attending Provider Active Start: September 21, 2023 End: September 21, 2023 Geraldo García , Referring Provider Active Start: September 21, 2023 End: September 21, 2023 Team Status: Active Member Role Status Dates Gavin Plaza MD Attending Provider Active Start: July 04, 2023 Team Status: Inactive Member Role Status Dates Susan Ayala MD Attending Provider Active Team Status: Inactive Member Role Status Dates Geraldo García DO Attending Provider Active Susan Ayala MD Primary Care Provider Active Team Status: Inactive Member Role Status Dates Geraldo García DO Attending Provider Active Start: May 02, 2023 End: May 02, 2023 Susan Ayala MD Primary Care Provider Active Start: May 02, 2023 End: May 02, 2023 Team Status: Inactive Member Role Status Dates Geraldo García DO Attending Provider Active Start: May 16, 2023 End: May 16, 2023 Susan Ayala MD Primary Care Provider Active Start: May 16, 2023 End: May 16, 2023 Team Status: Active Member Role Status Dates Gavin Plzaa MD Attending Provider Active Start: May 30, 2023 Team Status: Active Member Role Status Dates Susan Ayala MD Primary Care Provider Active Start: October 11, 2023 Christine Velazquez MD Attending Provider Active Start: October 11, 2023 Geraldo García , DO Referring Provider Active Start: October 11, 2023 Team Status: Active Member Role Status Dates Gavin Plaza MD Attending Provider Active Start: October 31, 2023 Team Status: Active Member Role Status Dates Susan Ayala MD Primary Care Provider Active Start: November 15, 2023 Geraldo García , Referring Provider Active Start: November 15, 2023 Gaurav Jaime MD Attending Provid er, Other Provider Active Start: November 15, 2023 Team Status: Active Member Role Status Dates Susan Ayala MD Primary Care Provider Active Start: December 04, 2023 Christine Velazquez MD Active St art: December 04, 2023 Geraldo García , Referring Provider Active Start: December 04, 2023 Gaurav Jaime MD Attending Provider Active Start: December 04, 2023 Team Status: Active Member Role Status Dates Susan Ayala MD Primary Care Provider Active Start: November 20, 2023 Geraldo García , Referring Provider Active Start: November 20, 2023 Gaurav Jaime MD Attending Provid er, Other Provider Active Start: November 20, 2023 Team Status: Active Member Role Status Dates Gavin Plaza MD Attending Provider Active Start: January 23, 2024 Team Status: Active Member Role Status Dates Susan Ayala MD Primary Care Provider Active Start: February 08, 2024 Christine Velazquez MD Attending Provider Active Start: February 08, 2024 Team Status: Inactive Member Role Status Dates Susan Ayala MD Primary Care Provider Active Start: February 15, 2024 End: February 15, 2024 Christine Velazquez MD Attending Provider Active Start: February 15, 2024 End: February 15, 2024 Team Status: Active Member Role Status Dates Susan Ayala MD Primary Care Provider Active Start: February 15, 2024 Christine Velazquez MD Attending Provider Active Start: February 15, 2024 Geraldo García DO Referring Provider Active Start: February 15, 2024 Gaurav Jaime MD Active Star t: February 15, 2024 Goals (unrecognized section and content) Goals may be documented in a n alternate sectionNo InformationNo InformationNo InformationNo InformationNo InformationNo InformationNo InformationNo InformationNo InformationNo InformationNo InformationNo InformationNo InformationNo InformationNo InformationGoals may be documented in an alternate sectionGoals may be documented in an alternate section REASON FOR VISIT (unrecogniz ed section and content) possible yeast infectionmess ageFOLLOW UPprescription refillRashlab work discussionnew med ?Medication DiscussionmessageFLU [phone] resultBREAST BIOPSY RESULTSlabsFLU [phone] INFORMATION SOURCE (unrecogn ized section and content) DATE CREATED AUTHOR 09/02/2022 [facility] DATE CREATED AUTHOR AUTHOR'S ORGANIZ ATION 07/07/2023 [facility]ital DATE CREATED AUTHOR AUTHOR'S ORGANIZ ATION 12/30/2023 [facility] EPIC DATE CREATED AUTHOR AUTHOR'S ORGANIZ ATION 02/17/2024 [facility] FOR RECORDS PERTAINING TO PATIENTS WHO ARE [...] BE BASED ON THE PRIMARY CLINICAL RECORDS. [employer] provides no warranty or guarantee of the accuracy or completeness of information in this document.
--- NOTE | 2024-02-20 12:04 | XR_ITS ---
[address] [address] Patient Name: NAOMI MANLEY MRN: [id number] date: 1965 Sex: F Assigned Patient Location: [facility] Current Patient Location: Accession/Order Number: [id number] Exam Date: 02/20/2024 11:58 Report Date: 02/21/2024 07:44 At the request of: SUSAN AYALA Procedure: XR humerus RT PROCEDURE: XR humerus RT COMPARISON: None. HISTORY: Pain Of Right Upper Extremity M79.601 FINDINGS: BONES:No fracture, acute abnormality, or significant arthropathy. Calcific density identified within the joint space cranial to the greater tuberosity SOFT TISSUES:Negative. No visible soft tissue swelling. EFFUSION:None visible. OTHER: Negative. XR/XR humerus RT IMPRESSION: No acute abnormality Suspected calcific tendinitis Electronically authenticated by: EMANUEL JAIN Date: 02/21/2024 07:44
== END 2024-02-20 11:38 | disposition home or self-care (01) ==
LOC: RAD 11:40
PROVIDERS: PCP Family Medicine; Visit Provider Family Medicine
DX: M79.601 Pain in right arm (principal)
CPT/HCPCS: 73060

== ENCOUNTER 2024-02-22 08:35 | Outpatient (RCR) | payer MEDICARE, MEDICAID, SELFPAY | END 2024-04-12 09:08 | disposition home or self-care (01) | LOC: PT 08:35 | PROVIDERS: PCP Family Medicine; Visit Provider Family Medicine | DX: S46.311D Strain of muscle, fascia and tendon of triceps, right arm, subsequent encounter (principal) | CPT/HCPCS: 97010; 97014; 97110; 97140; 97162; G0283 ==

== ENCOUNTER 2024-03-29 11:41 | Emergency (ER) | payer MEDICARE, MEDICAID, SELFPAY ==
[2024-03-29 11:54] VITALS: BP 134/77; PULSE 97; TEMP 37.3; O2SAT 96; BMI 27.5
--- OUTSIDE RECORDS SUMMARY | 2024-03-29 11:58 | XMS_ITS | CCD ---
Author Organization [facility] Care Team Providers Care Childcare Administrator Name Role Phone MD Susan Ayala Attending Provider BENITO ., DR FITCH Admitting Unavailabl e KARASIK ., DR FITCH Attending Unavailabl e KARASIK ., DR FITCH Consulting Unavailabl e AYALA, DR SUSAN Bryant Primary Care Unavailable ZIEBEKATERINA, DR THEA Frost Consulting Unavailable KARASIK ., DR FITCH Attending Unavailabl e KARASIK ., DR FITCH Consulting Unavailabl e AYALA, DR SUSAN Bryant Primary Care Unavailable KARASIK ., DR FITCH Admitting Unavailabl e ZIEBEKATERINA, DR THEA Frost Consulting Unavailable KARASIK ., DR FITCH Attending Unavailabl e KARASIK ., DR FITCH Consulting Unavailabl e AYALA, DR SUSAN Bryant Primary Care Unavailable KARASIK ., DR FITCH Admitting Unavailabl e AYALA, DR SUSAN Bryant Admitting Unavailable AYLAA, DR SUSAN Bryant Attending Unavailable AYALA, DR SUSAN Bryant Consulting Unavailable JAMIE, DR SUSAN Bryant Primary Care Unavailable ANIA BLANCA Attending Unavailable MIRTA, ANIA Consulting Unavailable ANIA BLANCA Admitting Unavailable JAMIE, DR SUSAN Bryant Primary Care Unavailable JAMIE, DR SUSAN Bryant Admitting Unavailable AYALA, DR SUSAN Bryant Attending Unavailable AYALA, DR SUSAN Bryant Consulting Unavailable JAMIE, DR SUSAN Bryant Primary Care Unavailable ANIA BLANCA Attending Unavailable ANIA BLANCA Consulting Unavailable ANIA BLANCA Admitting Unavailable JAMIE, DR SUSAN Bryant Primary Care Unavailable Susan Ayala Unavailable DO Geraldo García Attending Provider MD Susan Ayala Primary Care Provider ADAMA GARCÍA Referring Unavailable SUSAN AYALA Primary Care Unavailable Itzkowitz, DO Geraldo Attending Provider MD Susan Ayala Primary Care Provider Itzviraj, DO Geraldo Attending Provider [phone] MD Susan Ayala Primary Care Provider MD Gavin Plaza Attending Provider [phone] MD Gavin Plaza Attending Provider MD Susan Ayala Primary Care Provider Itruby, DO Geraldo Attending Provider MD Gavin Plaza Attending Provider MD Christine Velazquez Attending Provider Itzviraj, DO Geraldo Referring Provider [phone] MD Susan Ayala Primary Care Provider Itruby, DO Geraldo Attending Provider MD Christine Velazquez Attending Provider Itruby, DO Geraldo Referring Provider [phone] MD Gavin Plaza Attending Provider MD Susan Ayala Primary Care Provider Raquel, DO Geraldo Referring Provider [phone] MD Gaurav Jaime Attending Provider DO Lisa Rubalcava L Attending Provider MD Susan Ayala Primary Care Provider MD Gavin Plaza Attending Provider MD Christine Velazquez Attending Provider Raquel, DO Geraldo Referring Provider [phone] MD Christine Velazquez Attending Provider [phone] Itzkowitz, DO Geraldo Referring Provider MD Gavin Plaza Attending Provider MD Christine Velazquez Attending Provider Itzkowitz, DO Geraldo Referring Provider Susan Ayala MD Primary Care Provider GILSON KENYON Attending Unavailable ITZKOWITZ, GERALDO H Attending Unavailable CHEL JOSEPH Attending Unavailable ITZKOWITZ, GERALDO H Attending Unavailable ARTI KENYONS Sejal Attending Unavailable ITZKOWITZ, GERALDO H Attending Unavailable ITZKOWITZ, GERALDO H Attending Unavailable SUSAN AYALA Referring Unavailable ITZKOWITZ, GERALDO H Attending Unavailable ITZKOWITZ, GERALDO H Attending Unavailable ITZKOWITZ, GERALDO H Attending Unavailable GILSON KENYON Attending Unavailable ITZKOWITZ, GERALDO H Attending Unavailable ARTI KENYONS Sejal Attending Unavailable GILSON KENYON Attending Unavailable Susan Ayala MD Primary Care Provider Christine Velazquez MD Attending Provider Itzkowitz DO, Geraldo Referring Provider Gavin Plaza MD Attending Provider [phone] Susan Ayala MD Primary Care Provider Christine Velazquez MD Attending Provider Itzkowitz DO, Geraldo Referring Provider Mike Garcíaic Attending Unavailable Itzkowitz, Geraldo Admitting Unavailable Susan Ayala Primary Care Unavailable Gavin Plaza Admitting Unavailab le Gavin Plaza Attending Unavailab le Christine Velazquez Admitting Unavailabl e Christine Velazquez Attending Unavailabl e Itruby, Geraldo Referring Unavailable Susan Ayala Primary Care Unavailable Lisa Rubalcava Admitting Unavailable Lisa Rubalcava Attending Unavailable Susan Ayala Primary Care Unavailable Itzkowitz, Geraldo Admitting Unavailable Itzkowitz, Geraldo Attending Unavailable Susan Ayala Primary Care Unavailable Itzkowitz, Geraldo Attending Unavailable Itzkowitz, Geraldo Admitting Unavailable Susan Ayala Primary Care Unavailable Itzkowitz, Geraldo Admitting Unavailable Itzkowitz, Geraldo Attending Unavailable Susan Ayala Primary Care Unavailable Itzkowitz, Geraldo Admitting Unavailable Itzkowitz, Geraldo Attending Unavailable Susan Ayala Primary Care Unavailable Itzkowitz, Geraldo Admitting Unavailable Itzkowitz, Geraldo Attending Unavailable Susan Ayala Primary Care Unavailable Allergies Allergy Classification Reported Allergen(s) Allergy Type Date of Onset Reaction(s) Facility Cephalosporins (antibiotic) (1 source) Cephalosporins (Antibiotic) Drug Allergy 10-11-19 24 Unknown Reaction [facility] Penicillins (antibiotic) (1 source) Penicillins Drug Allergy 10-11-19 24 Swelling of Lip/Tongue/Thro at [facility] (9 sources) cefdinir Drug Allergy Unknown [facility] (15 sources) Penicillin Drug Allergy halucination and swallowing dificulty [facility] Other (16 sources) Penicillins Drug allergy (disorder) 05-08-18 76 Swelling of Lip/Tongue/Thro at [facility] (10 sources) Medicinal cephalosporin and acting as antibacterial agent (FN) Drug allergy Unknown [facility] Other (10 sources) Ceftin *CEPHALOSPORINS* Propensity to adverse reactions Unknown [facility] Other (17 sources) Cephalosporins (Antibiotic); Translations: [Cephalosporins] Allergy to substance 07-19-19 24 Unknown Reaction [facility] (2 sources) Penicillins Drug Allergy 03-09-20 23 Other [facility] (2 sources) Penicillins Drug allergy (disorder) 07-19-19 24 [facility] Medications Current Medications Medication Drug Class(es) Dates Sig (Normalized) Sig (Original) alendronic acid 70 mg oral tablet (20 sources) Bisphosphonate Start: 09-21-2023 take 1 tablet by mouth every week Alendronate 70 mg tablet Active 70 MG PO every week September 20, 2023 11:00pm Start: 05-02-2023 End: 08-11-2023 take 1 tablet by mouth every week Alendronate 70 mg tablet Discontinued 70 MG PO every week May 02, 2023 12:00am August 11, 2023 9:45am monday ascorbic acid 500 mg oral tablet (16 sources) Vitamin C Start: 05-02-2023 take 1 tablet by mouth once daily in the morning Ascorbic Acid (Vitamin C) (Vitamin C) 500 mg Tablet Active 500 MG PO Every morning May 02, 2023 12:00am atorvastatin 40 mg oral tablet (8 sources) HMG-CoA Reductase Inhibitor take 1 tablet by mouth every twenty-four hours Atorvastatin Calcium 40 MG 1 tablet Orally Once a day for 90 days Active take 1 tablet by missy th every twenty-four hours Atorvastatin Calcium 20 MG 1 tablet Oral ly Once a day for 90 days Active Azelastine (Astepro Allergy) 205.5 mcg (0.15 %) spray,non-aerosol (1 source) Start: 03-25-2024 take 1 spray(s) nasal route once daily Azelastine (Astepro Allergy) 205.5 mcg (0.15 %) spray,non-aerosol Active 2 SPRAY INTRANASAL Daily March 25, 2024 12:00am administer into each nostril azithromycin 250 mg oral tablet (6 sources) [...] oral tablet (20 sources) Start: 11-20-2023 take 1 tablet by mouth twice daily Buspirone 5 mg tablet Active 5 MG PO Twice daily November 19, 2023 11:00pm Start: 07-10-2023 End: 07-11-2023 take 1 tablet by mouth once daily Buspirone 5 mg tablet Discontinued 5 MG PO Daily July 10, 2023 12:00am July 11, 2023 2:36pm take 1 tablet by missy th every twenty-four hours busPIRone HCl 5 MG 1 tablet once a day Active calcium carbonate 1250 mg chewable tablet (6 sources) Start: 02-15-2024 take 1 tablet by mouth once daily Calcium Carbonate (Calcium 500) 500 mg calcium (1,250 mg) tablet,chewable Active 500 MG PO Daily February 14, 2024 11:00pm cholecalciferol 0.025 mg oral capsule (10 sources) Vitamin D Start: 03-16-2024 take 1 capsule by mouth once daily Cholecalciferol (Vitamin D3) 25 mcg (1,000 unit) capsule Active 50 MCG PO Daily March 16, 2024 9:17am Start: 02-15-2024 End: 03-16-2024 take 1 capsule by mouth once daily Cholecalciferol (Vitamin D3) 25 mcg (1,000 unit) capsule Discontinued 25 MCG PO Daily February 14, 2024 11:00pm March 16, 2024 9:18am doxycycline monohydrate 100 mg oral capsule (3 sources) Tetracycline-class Drug Start: 03-16-2024 take 1 capsule by mouth twice daily Doxycycline Monohydrate 100 mg capsule Active 100 MG PO Twice daily 14 March 16, 2024 12:00am letrozole 2.5 mg oral tablet (20 sources) Aromatase Inhibitor Start: 02-15-2024 End: 02-21-2024 take 1 tablet by mouth once daily Letrozole 2.5 mg tablet Active 2.5 MG PO Daily February 21, 2024 1:59pm Start: 10-11-2023 End: 12-21-2023 take 1 tablet by mouth once daily Letrozole (Femara) 2.5 mg tablet Discontinued 2.5 MG PO Daily October 10, 2023 11:00pm December 21, 2023 9:24am lithium carbonate 450 mg extended release oral tablet (20 sources) Start: 12-27-2022 take 1 tablet by mouth once daily in the evening [place] Carbonate 450 mg tablet extended release Active 450 MG PO Every evening May 02, 2023 12:00am [place] Carbonat e 450 mg 2 tablets QHS Active OLANZapine 5 mg oral tablet (20 sources) Atypical Antipsychotic Start: 06-26-2023 take 1 tablet by mouth at bedtime OLANZapine (ZyPREXA) 5 MG tablet TAKE 1 TABLET BY MOUTH AT BEDTIME CHANGE IN DOSAGE 06/26/2023 Active Start: 05-02-2023 End: 07-11-2023 take 1 tablet by mouth once daily in the evening Olanzapine 10 mg tablet Discontinued 10 MG PO Every evening May 02, 2023 12:00am July 11, 2023 2:36pm take 1 tablet by missy th once daily at bedtime OLANZapine 20 MG 1 tablet Orally QHS Active take 1 tablet by missy th every twenty-four hours OLANZapine 10 MG 1 tablet Orally Once a day Active omeprazole 40 mg delayed release oral capsule (20 sources) Proton Pump Inhibitor Start: 10-31-2023 End: 02-06-2024 take 1 capsule by mouth once daily in the morning Omeprazole 40 mg capsule,delayed release(DR/EC) Active 0 .ROUTE .COMPLEX February 06, 2024 7:28am TAKE 1 CAPSULE BY MOUTH EVERY MORNING Start: 05-02-2023 End: 10-31-2023 take 1 capsule by mouth once daily in the morning Omeprazole 40 mg capsule,delayed release(DR/EC) Discontinued 40 MG PO Every morning August 11, 2023 9:51am October 31, 2023 7:37am QUEtiapine 200 mg oral tablet (20 sources) Atypical Antipsychotic Start: 02-28-2023 take 1 tablet by mouth once daily in the evening Quetiapine 200 mg tablet Active 200 MG PO Every evening May [...] mouth once daily in the evening Rosuvastatin 20 mg tablet Active 0 .ROUTE .COMPLEX February 06, 2024 7:28am TAKE 1 TABLET BY MOUTH EVERY EVENING Start: 02-27-2023 End: 10-31-2023 take 1 tablet by mouth once daily in the evening Rosuvastatin 20 mg tablet Discontinued 20 MG PO Every evening August 11, 2023 9:51am October 31, 2023 7:37am Completed/Discontinued Medications Medication Drug Class(es) Dates Sig (Normalized) Sig (Original) acetaminophen 300 mg / codeine phosphate 30 mg oral tablet (14 sources) Opioid Agonist Start: 08-01-2023 End: 08-11-2023 take 1 tablet by mouth every six hours as needed for pain Acetaminophen-Code ine 300-30 mg tablet Discontinued 1 TAB PO Every 6 hours as needed for pain 24 09July 31, 2023 11:00pm August 11, 2023 9:44am fenofibrate 200 mg oral capsule (5 sources) Peroxisome Proliferator Receptor alpha Agonist take 1 capsule by mouth every twenty-four hours Fenofibrate 200 MG 1 tablet Orally Once a day Not-Taking gabapentin 300 mg oral capsule (4 sources) Anti-epileptic Agent Start: 02-21-2024 End: 03-16-2024 take 1 capsule by mouth once daily at bedtime Gabapentin (Neurontin) 300 mg capsule Discontinued 300 MG PO Daily at bedtime February 20, 2024 11:00pm March 16, 2024 9:17am glipiZIDE er 5 mg 24 hr extended release oral tablet (20 sources) Sulfonylurea Start: 01-09-2024 End: 02-20-2024 take 1 tablet by mouth once daily Glipizide 5 mg tablet extended release 24hr Discontinued 0 .ROUTE .COMPLEX January 09, 2024 12:14pm February 20, 2024 10:11am TAKE 1 TABLET BY MOUTH EVERY DAY Start: 01-09-2024 End: 02-20-2024 take 1 tablet by mouth once daily Glipizide Discontinued 0 .ROUTE .COMPLEX January 09, 2024 1:14pm February 20, 2024 11:11am TAKE 1 TABLET BY MOUTH EVERY DAY Start: 01-09-2024 take 1 tablet by missy th once daily Glipizide Active 0 .ROUTE .COMPLEX January 09, 2024 1:14pm TAKE 1 TABLET BY MOUTH EVERY DAY Start: 10-03-2023 End: 01-09-2024 take 1 tablet by mouth once daily Glipizide 5 mg tablet extended release 24hr Discontinued 5 MG PO Daily October 25, 2023 8:49pm January 09, 2024 12:14pm ibuprofen 600 mg oral tablet (12 sources) Nonsteroidal Anti-inflammatory Drug Start: 08-29-2023 End: 11-20-2023 take 4 tablets by mouth every twenty-four hours for pain Ibuprofen 600 mg tablet Discontinued 600 MG PO EVERY 4-6 HOURS as needed for pain 20 5 August 28, 2023 11:00pm November 20, 2023 7:07am do not exceed 4 doses in a 24 hour period Ketorolac (15 sources) Nonsteroidal Anti-inflammatory Drug, Cyclooxygenase Inhibitor Start: 09-04-2016 Toradol per 15 mg Aug, 60 mg levoFLOXacin 500 mg oral tablet (5 sources) Quinolone Antimicrobial take 1 tablet by mouth every twenty-four hours levoFLOXacin 500 MG 1 tablet Orally Once a day Not-Taking levothyroxine sodium 0.075 mg oral tablet (20 sources) l-Thyroxine Start: 08-08-2023 End: 02-19-2024 take 1 tablet by mouth once daily in the morning Levothyroxine 75 mcg tablet Discontinued 0 .ROUTE .COMPLEX October 31, 2023 7:37am February 19, 2024 9:36pm TAKE 1 TABLET BY MOUTH EVERY DAY IN THE MORNING ON EMPTY STOMACH FOR 90 DAYS Start: 05-02-2023 End: 08-08-2023 take 1 tablet by mouth once daily in the morning Levothyroxine 75 mcg tablet Discontinued 75 MCG PO Every morning May 02, 2023 12:00am August 08, 2023 7:47am take 1 tablet by missy th once daily in the morning Levothyroxine Sodium 75 MCG 1 tablet in the morning on an empty stomach Orally Once a day for 90 days Active metroNIDAZOLE 500 mg oral tablet (5 sources) Nitroimidazole Antimicrobial Start: 06-21-2022 take 1 tablet by mouth every twelve hours metroNIDAZOLE 500 MG 1 tablet Orally Twice a day for 7 day(s) Jun, Not-Taking mometasone furoate 1 mg/ml topical cream (9 sources) Corticosteroid Start: 11-03-2023 End: 12-21-2023 Mometasone 0.1 % cream Discontinued 1 APPLIC TOPICAL Daily November 02, 2023 11:00pm December 21, 2023 8:58am Apply to radiation site, once a day, AFTER radiation treatments. tamoxifen 20 mg oral tablet (8 sources) Estrogen Agonist/Antagonist Start: 12-21-2023 End: 01-03-2024 take 1 tablet by mouth once daily Tamoxifen 20 mg tablet Discontinued 20 MG PO Daily December 20, 2023 11:00pm January 03, 2024 12:59pm traZODone hydrochloride 50 mg oral tablet (20 sources) Serotonin Reuptake Inhibitor Start: 11-20-2023 End: 03-16-2024 Trazodone 50 mg tablet Discontinued 25 MG PO Bedtime November 19, 2023 11:00pm March 16, 2024 9:16am Start: 11-20-2023 take 25 mg by mouth at bedtime Trazodone Active 25 MG PO Bedtime November 20, 2023 12:00am Start: 08-15-2023 traZODone (Vik yrel) 50 MG tablet TAKE 1/2 TABLET BY MOUTH AT NIGHT FOR SLEEP 08/15/2023 Active Start: 07-10-2023 End: 07-11-2023 take 1 tablet by mouth once daily Trazodone 50 mg tablet Discontinued 50 MG PO Daily July 10, 2023 12:00am July 11, 2023 2:36pm take 1 tablet by missy th every twenty-four hours traZODone HCl 50 MG 1 tablet once a day Active 24 hr venlafaxine 37.5 mg extended release oral capsule (8 sources) Serotonin and Norepinephrine Reuptake Inhibitor Start: 12-21-2023 End: 01-03-2024 take 1 capsule by mouth once daily Venlafaxine (Effexor Xr) 37.5 mg capsule,extended release 24hr Discontinued 37.5 MG PO Daily December 20, 2023 11:00pm January 03, 2024 12:59pm Problems Active Problems Problem Classification Problem Date Documented Date Episodic/Chronic Administrative/social admission (1 source) Person consulting for explanation of examination or test findings; Translations: [Person consulting for explanation of examination or test findings] Episodic Cancer of breast (20 sources) Infiltrating duct carcinoma of breast; Translations: [Malignant neoplasm of unspecified site of left female breast] Onset: 05-19-2023 Chronic Comment on above: left Chronic kidney disease (20 sources) Chronic kidney disease stage 3; Translations: [Chronic kidney disease, stage 3 unspecified] 07-10-2023 Chronic Chronic obstructive pulmonary disease and bronchiectasis (2 sources) Bronchitis, not specified as acute or chronic Episodic Complications of surgical procedures or medical care (20 sources) Postoperative hematoma of breast; Translations: [Hematoma of breast following procedure] 07-11-2023 Episodic Diabetes mellitus with complications (17 sources) Hyperglycemia due to type 2 diabetes mellitus; Translations: [Type 2 diabetes mellitus with hyperglycemia] 10-09-2023 Chronic Diabetes mellitus without complication (20 sources) Impaired fasting glycemia; Translations: [Impaired fasting glucose] Onset: 03-08-2018 Episodic Disorders of lipid metabolism (20 sources) Hyperlipidemia, unspecified; Translations: [Pure hyperglyceridemia] Onset: 03-07-2018 Chronic Esophageal disorders (16 sources) Gastro-esophageal reflux disease without esophagitis; Translations: [...] Translations: [BIPOLAR DISORDER UNSPECIFIED] Onset: 03-07-2018 Chronic Mycoses (3 sources) Candidiasis of skin and nail; Translations: [Candidiasis] Onset: 06-08-2014 Resolved: 06-10-2016 Episodic Nonmalignant breast conditions (6 sources) Mammographic calcification found on diagnostic imaging of breast; Translations: [Other specified disorders of breast] Onset: 08-05-2022 Resolved: 06-28-2019 03-22-2024 Episodic Other aftercare (14 sources) Long-term current use of drug therapy; Translations: [Other mcc (current) drug therapy] Episodic Other aftercare (3 sources) Other mcc (current) drug therapy; Translations: [OTH [facility]DC 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 THERAPY] Onset: 04-18-2022 Episodic Other bone disease and musculoskeletal deformities (20 sources) Other specified disorders of bone density and structure, unspecified site; Translations: [Disorder of bone and cartilage, unspecified] Onset: 08-05-2022 09-21-2023 Episodic Other bone disease and musculoskeletal deformities (1 source) Bone density finding; Translations: [Other specified disorders of bone density and structure, unspecified site] Episodic Other bone disease and musculoskeletal deformities (11 sources) Osteopenia; Translations: [Other specified disorders of [...] [Pain in left upper arm] Episodic Other connective tissue disease (5 sources) Pain in right arm; Translations: [Pain in right arm] 02-20-2024 Episodic Other connective tissue disease (5 sources) Pain in right arm; Translations: [Pain in limb] 02-20-2024 Episodic Other female genital disorders (1 source) [...] Resolved: 06-28-2019 Episodic Other upper respiratory disease (12 sources) Allergic rhinitis; Translations: [Allergic rhinitis, unspecified] 08-11-2023 Chronic Other upper respiratory disease (3 sources) Allergic rhinitis, unspecified; Translations: [Allergic rhinitis, cause unspecified] 08-11-2023 Chronic Other upper respiratory infections (1 source) Chronic sinusitis; Translations: [Chronic sinusitis, unspecified] Chronic Other upper respiratory infections (6 sources) Acute maxillary sinusitis; Translations: [Acute recurrent maxillary sinusitis] Onset: 07-20-2018 03-16-2024 Episodic Otitis media and related conditions (8 sources) Acute right otitis media; Translations: [Otitis media, unspecified, right ear] 03-16-2024 Episodic Residual codes; unclassified (1 source) Family [...] receptor positive status (ER+)] Onset: 06-29-2023 Episodic Residual codes; unclassified (4 sources) Pain, unspecified; Translations: [Generalized pain] 03-16-2024 Episodic Screening and history of mental health [...] [Acute vaginitis] Onset: 06-18-2014 Resolved: 06-10-2016 Episodic Nonspecific chest pain (1 source) Chest [...] Test Name Value Interpretation Reference Range Facility COVID Cepheidon 03-16-2024 SARS-CoV-2 (COVID-19) RNA HIMANSHU+probe Ql (Unsp spec) COVID Cepheid [facility] - Microbiology an d Antimicrobial susceptibilityon 03-16-2024 SARS-CoV-2 (COVID-19) RNA HIMANSHU+probe Ql (Unsp spec) Negative [facility] No Panel InformationOrdered By: Valencia Boyd on 03-16-2024 Quick Strep (POC) [facility] No Panel Informationon 03-16 POC Influenza A (PCR) Negative [facility] POC Influenza B (PCR) Negative [facility] HbA1c HPLC (Bld) [Mass fract ion]on 02-20-2024 HbA1c (Bld) [Mass fraction] Hemoglobin A1c/Hemoglobin.total in Blood by HPLC [facility] Globulin Calc (S) [Mass/Vol] on 02-08-2024 Globulin (S) [Mass/Vol] 3.6 g/dL F [facility] Globulin (S) [Mass/Vol] Serum globulin measurement by calculation (mass/volume) [facility] - Chemistry and C hemistry - challengeon 02-08-2024 Albumin [Mass/Vol] 4.0 g/dL 3.4-5.0 [facility] ALP [Catalytic activity/Vol] 104 U/L 46-116 [facility] ALT [Catalytic activity/Vol] 37 U/L 14-59 [facility] AST [Catalytic activity/Vol] 29 U/L 15-37 [facility] Bilirubin [Mass/Vol] 0.4 mg/dL 0.2-1.0 [facility] Bilirubin.direct [Mass/Vol] 0.1 mg/dL 0.0-0.2 [facility] Protein [Mass/Vol] 7.6 g/dL 6.4-8.2 [facility] Serum or plasma albumin/glob ulin mass ratioon 02-08-2024 Albumin/Globulin [Mass ratio] 1.1 {ratio} [facility] Albumin/Globulin [Mass ratio] Serum or plasma albumin/globulin mass ratio [facility] Basophils Auto (Bld) [#/Vol] on 12-22-2023 Basophils (Bld) [#/Vol] 0.0 10 3/uL 0.0-0.1 [facility] Basophils/100 WBC Auto (Bld) on 12-22-2023 Basophils/100 WBC (Bld) 0.2 % 0.2-2.0 F [facility] Eosinophils/100 WBC Auto (Bl d)on 12-22-2023 Eosinophils/100 WBC (Bld) 0.0 % Low 0.9-7.0 [facility] Erythrocyte distribution wid th Auto (RBC) [Ratio]on 12-22-2023 Erythrocyte distribution width (RBC) [Ratio] 13.9 % 11.0-15.0 [facility] Estimated glomerular filtrat ion rate (GFR) non- Americanon 12-22-2023 GFR/1.73 sq M.predicted among non-blacks MDRD (S/P/Bld) [Vol rate/Area] 52 mL/min/{1.73_m2} Low >=60 [facility] Globulin Calc (S) [Mass/Vol] on 12-22-2023 Globulin (S) [Mass/Vol] 3.3 g/dL F [facility] Hematocrit Auto (Bld) [Volum e fraction]on 12-22-2023 Hematocrit (Bld) [Volume fraction] 42.6 % 36.0-48.0 [facility] Hemoglobin [Mass/volume] in Bloodon 12-22-2023 Hemoglobin (Bld) [Mass/Vol] 13.1 g/dL 12.0-16.0 [facility] Iron binding capacity [Mass/ volume] in Serum or Plasmaon 12-22-2023 Iron binding capacity [Mass/Vol] 324.0 ug/dL 250.0-450.0 [facility] Iron saturation [Mass Fracti on] in Serum or Plasmaon 12-22-2023 Iron saturation [Mass fraction] 18.5 % [facility] - Chemistry and C hemistry - challengeon 12-22-2023 Albumin [Mass/Vol] 4.1 g/dL 3.4-5.0 [facility] ALP [Catalytic activity/Vol] 101 U/L 46-116 [facility] ALT [Catalytic activity/Vol] 42 U/L 14-59 [facility] AST [Catalytic activity/Vol] 35 U/L 15-37 [facility] Bilirubin [Mass/Vol] 0.4 mg/dL 0.2-1.0 [facility] Calcium [Mass/Vol] 10.0 mg/dL 8.5-10.1 [facility] Chloride [Moles/Vol] 107 mmol/L 98-107 [facility] CO2 [Moles/Vol] 27.1 mmol/L 21.0-32.0 [facility] Cobalamin (Vitamin B12) [Mass/Vol] 382.0 pg/mL 193.0-986.0 [facility] Creatinine [Mass/Vol] 1.07 mg/dL High 0.55-1.02 [facility] Ferritin [Mass/Vol] 312.0 ng/mL High 8.0-252.0 [facility] GFR/1.73 sq M.predicted MDRD (S/P/Bld) [Vol rate/Area] mL/min/{1.73_m2} >=60 [facility] Glucose [Mass/Vol] 143 mg/dL High 74-106 [facility] Iron [Mass/Vol] 60.0 ug/dL 50.0-170.0 [facility] Potassium [Moles/Vol] 5.0 mmol/L 3.5-5.1 [facility] Protein [Mass/Vol] 7.4 g/dL 6.4-8.2 [facility] Sodium [Moles/Vol] 143 mmol/L 136-145 [facility] Urea nitrogen [Mass/Vol] 13.0 mg/dL 7.0-18.0 [facility] Urea nitrogen/Creatinine [Mass ratio] 12.1 mg/mg [facility] Laboratory - Hematology and Cell countson 12-22-2023 Immature granulocytes/100 WBC (Bld) 0.2 % 0.0-0.5 [facility] Leukocytes [#/volume] correc cori for nucleated erythrocytes in Blood by Automated counon 12-22-2023 WBC corrected for nucl RBC Auto (Bld) [#/Vol] 4.2 10 3/uL 4.0-11.0 [facility] Lymphocytes Auto (Bld) [#/Vo l]on 12-22-2023 Lymphocytes (Bld) [#/Vol] 0.8 10 3/uL Low 1.2-3.8 [facility] Lymphocytes/100 WBC Auto (Bl d)on 12-22-2023 Lymphocytes/100 WBC (Bld) 18.5 % Low 20.5-60.0 [facility] MCH Auto (RBC) [Entitic mass ]on 12-22-2023 MCH (RBC) [Entitic mass] 27.8 pg 26.7-34.0 [facility] MCHC Auto (RBC) [Mass/Vol]on 12-22-2023 MCHC (RBC) [Mass/Vol] 30.8 g/dL 29.9-35.2 [facility] MCV Auto (RBC) [Entitic vol] on 12-22-2023 MCV (RBC) [Entitic vol] 90.4 fL 81.0-99.0 [facility] Monocytes Auto (Bld) [#/Vol] on 12-22-2023 Monocytes (Bld) [#/Vol] 0.3 10 3/uL 0.3-0.8 [facility] Monocytes/100 WBC Auto (Bld) on 12-22-2023 Monocytes/100 WBC (Bld) 8.1 % 1.7-12.0 [facility] Neutrophils Auto (Bld) [#/Vo l]on 12-22-2023 Neutrophils (Bld) [#/Vol] 3.1 10 3/uL 1.4-6.5 [facility] Neutrophils/100 WBC Auto (Bl d)on 12-22-2023 Neutrophils/100 WBC (Bld) 73.0 % 43.0-75.0 [facility] No Panel Informationon 12-21 Eosinophils # (Auto) 0.0 10 3/uL 0.0-0.7 [facility] Folate 8.60 ng/mL 8.60-58.90 [facility] Immature Granulocyte # (Auto) 0.01 10 3/uL 0.00-0.03 [facility] Platelet mean volume Auto (B ld) [Entitic vol]on 12-22-2023 Platelet mean volume (Bld) [Entitic vol] 10.1 fL 9.5-13.5 [facility] Platelets Auto (Bld) [#/Vol] on 12-22-2023 Platelets (Bld) [#/Vol] 115 10 3/uL Low 150-450 [facility] RBC Auto (Bld) [#/Vol]on RBC (Bld) [#/Vol] 4.71 10 6/uL 4.20-5.40 [facility] Serum or plasma albumin/glob ulin mass ratioon 12-22-2023 Albumin/Globulin [Mass ratio] 1.2 {ratio} [facility] Serum or plasma anion gap de terminationon 12-22-2023 Anion gap [Moles/Vol] 13.9 mmol/L [facility] Capillary blood glucose juan urement by glucometer (mass/volume)Ordered By: Lisa Rubalcava on 12-05-2023 Glucose [Mass/Vol] 98 mg/dL Normal [facility] Comment on above: Random Glucose Refer ence Range is dependent on time and content of last meal. Glucose of more than 200 mg/dL in a nonstressed, ambulatory subject supports the diagnosis of Diabetes Mellitus. Result Comment: [place] [facility] Glucose Reference Range is dependent on time and content of last meal. Glucose of more than 200 mg/dL in a nonstressed, ambulatory subject supports the diagnosis of Diabetes Mellitus. Performed By: #### G LULS #### Point of Care testing , Glucose Poct Glucometerson 0 12-05-2023 Commemt1 Glu2: Cleaned Meter Normal [facility] Comment on above: Result Comment: PERF ORMED BY: [facility] [address] [place] [address] PATHOLOGIST INCLUSION TEACHER HUI NORTH M.D. Performed By: #### G LULS #### Point of Care testing , Yoan 12-05-2023 L Specimen: [id number] Received: 12/05/23 Status: WAN Beasley Num: [id number] Spec Type: Surgical Subm Dr: Lisa Rubalcava DO Tissues: A Colon Biopsy (SIGMOID POLYP) Procedures: HE/2, Gross/Micro L4 Age/ Patient Sex Location Account Attending Physician Melony Manley 58/F [id number] Lisa Rubalcava DO SPEC NUM: [id number] RECD: 12/05/23 STATUS: WAN BEASLEY NUM: [id number] MANGO: 12/05/23- SUBM DR: Lisa Rubalcava DO ENTERED: 12/05/[address]: SPEC TYPE: Surgical DEPT: S ORDERED: YUDYJose, Gross/Micro L4 ORDERED: , Gross/Micro L4 Pathological Diagnosis Colon, 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 The specimen is trisected and entirely submitted in A1. CPT Codes 80586 -------- -------- Specimen: [id number] Received: 12/05/23 Status: WAN Beasley Num: [id number] Spec Type: Surgical Subm Dr: Lisa Rubalcava DO Tissues: A Colon Biopsy (SIGMOID POLYP) Procedures: YUDYJose, Gross/Micro L4 -------- Patient: Melony Manley [id number] (Continued) -------- Signed (signature on file) Ugo Brandt Jr., MD 12/06/23 1401 Normal [facility] No Panel InformationOrdered By: Lisa Rubalcava on 12-05-2023 Bedside Glucose Comment Glu2: cleaned meter [facility] Estimated glomerular filtrat ion rate (GFR) non- Americanon 11-15-2023 GFR/1.73 sq M.predicted among non-blacks MDRD (S/P/Bld) [Vol rate/Area] 52 mL/min/{1.73_m2} Low >=60 [facility] Globulin Calc (S) [Mass/Vol] on 11-15-2023 Globulin (S) [Mass/Vol] 3.5 g/dL F [facility] Laboratory - Chemistry and C hemistry - challengeon 11-15-2023 Albumin [Mass/Vol] 3.9 g/dL 3.4-5.0 [facility] ALP [Catalytic activity/Vol] 91 U/L 46-116 [facility] ALT [Catalytic activity/Vol] 44 U/L 14-59 [facility] AST [Catalytic activity/Vol] 40 U/L High 15-37 [facility] Bilirubin [Mass/Vol] 0.4 mg/dL 0.2-1.0 [facility] Calcium [Mass/Vol] 9.3 mg/dL 8.5-10.1 [facility] Chloride [Moles/Vol] 110 mmol/L High 98-107 [facility] CO2 [Moles/Vol] 26.2 mmol/L 21.0-32.0 [facility] Creatinine [Mass/Vol] 1.07 mg/dL High 0.55-1.02 [facility] GFR/1.73 sq M.predicted MDRD (S/P/Bld) [Vol rate/Area] mL/min/{1.73_m2} >=60 [facility] Glucose [Mass/Vol] 127 mg/dL High 74-106 [facility] Potassium [Moles/Vol] 4.7 mmol/L 3.5-5.1 [facility] Protein [Mass/Vol] 7.4 g/dL 6.4-8.2 [facility] Sodium [Moles/Vol] 145 mmol/L 136-145 [facility] Urea nitrogen [Mass/Vol] 12.0 mg/dL 7.0-18.0 [facility] Urea nitrogen/Creatinine [Mass ratio] 11.2 mg/mg [facility] Serum or plasma albumin/glob ulin mass ratioon 11-15-2023 Albumin/Globulin [Mass ratio] 1.1 {ratio} [facility] Serum or plasma anion gap de terminationon 11-15-2023 Anion gap [Moles/Vol] 13.5 mmol/L [facility] Cholesterol in LDL Calc [Mas s/Vol]on 09-26-2023 Cholesterol in LDL [Mass/Vol] 31.0 mg/dL [facility] Comment on above: <100 mg/dl [id number] 0-129 mg/dl NEAR OR ABOVE [id number] mg/dl BORDERLINE [id number] mg/dl HIGH>190 mg/dl VERY HIGH Cholesterol in VLDL Calc [Ma ss/Vol]on 09-26-2023 Cholesterol in VLDL [Mass/Vol] 47.8 mg/dL [facility] Estimated glomerular filtrat ion rate (GFR) non- Americanon 09-26-2023 GFR/1.73 sq M.predicted among non-blacks MDRD (S/P/Bld) [Vol rate/Area] mL/min/{1.73_m2} >=60 [facility] Glucose mean value [Mass/vol ume] in Blood Estimated from glycated hemoglobinon 09-26-2023 Average glucose Estimated from glycated hemoglobin (Bld) [Mass/Vol] 189 mg/dL [facility] Laboratory - Chemistry and C hemistry - challengeon 09-26-2023 Cholesterol [Mass/Vol] 120 mg/dL <=200 [facility] Cholesterol in HDL [Mass/Vol] 42 mg/dL 40-60 [facility] Comment on above: > or =60 mg/dl - LOW CARDIOVASCULAR RISK<40 mg/dl - HIGH CARDIOVASCULAR RISK Creatinine [Mass/Vol] 0.89 mg/dL 0.55-1.02 [facility] GFR/1.73 sq M.predicted MDRD (S/P/Bld) [Vol rate/Area] mL/min/{1.73_m2} >=60 [facility] Glucose [Mass/Vol] 182 mg/dL High 74-106 [facility] Triglyceride [Mass/Vol] 239 mg/dL High <=150 [facility] TSH Qn 2.178 m[IU]/L 0.358-3.740 [facility] Laboratory - Hematology and Cell countson 09-26-2023 HbA1c (Bld) [Mass fraction] 8.2 % High 4.5-6.2 [facility] Comment on above: ADA RECOMMENDED LIMI T 4.0 - 6.0ADA THERAPEUTIC TARGET < 7.0ACTION SUGGESTED> 7.0 No Panel Informationon 09-25 [place] Level 0.7 mmol/L 0.5-1.2 [facility] Comment on above: A concentration of 0 .5-0.8 mmol/L is advised for long-termuse; concentrations of up to 1.2 mmol/L may be necessaryduring acute treatment. Detection Limit = 0.1 <0.1 indicates None DetectedPerformed at: - [facility] [address] [id number] Director: Wojciech Farah PhD, Phone: [phone] Serum or plasma total choles terol/high density lipoprotein (HDL) cholesterol mass alix 09-26-2023 Cholesterol.total/Choles terol in HDL [Mass ratio] 2.9 {ratio} [facility] Comment on above: 3.3 - 4.4 LOW RISK4. 4 - 7.1 AVERAGE RISK7.1 - 11.0 MODERATE RISK>11.0 HIGH RISK Yoan 08-29-2023 L Specimen: [id number] Received: 08/29/231230 Status: [place]AN [place] Num: [id number] Spec Type: Surgical Subm Dr: Geraldo García, DO Tissues: A Breast Biopsy/Mass Not Requiring Micro Eval of Margins (RE-EXC POST MARGIN L Procedures: HE/9, Gross/Micro L4, AE1-AE3/3 Age/ Patient Sex Location Account Attending Physician Melony Manley 58/F [place] [id number] Geraldo García DO SPEC NUM: [id number] RECD: 08/29/23 STATUS: SOUT REQ NUM: [id number] MANGO: 08/29/[address]: Geraldo García DO ENTERED: 08/29/[address]: CARLTON TYPE: Surgical DEPT: S ORDERED: HE/9, Gross/Micro [...] is entirely submitted as follows: -------- Specimen: [id number] Received: 08/29/23 Status: WAN Beasley Num: [id number] Spec Type: Surgical Subm Dr: Geraldo Gacría, Tissues: A Breast Biopsy/Mass Not Requiring Micro Eval of Margins (RE-EXC POST MARGIN L Procedures: YUDY/Yesi, Gross/Micro L4, AE1-AE3/3 -------- Patient: Melony Manley [id number] (Continued) -------- Specimen: [id number] Received: 08/29/23 (Continued) Gross Description (Continued) Signed (signature on file) Nathaniel Gillette MD 08/31/23 1126 -------- Specimen: [id number] Received: 08/29/23 Status: WAN Beasley Num: [id number] Spec Type: Surgical Subm Dr: Geraldo García, DO Tissues: A Breast Biopsy/Mass Not Requiring Micro Eval of Margins (RE-EXC POST MARGIN L Procedures: HE/Yesi, Gross/Micro L4, AE1-AE3/3 -------- Patient: Melony Manley [id number] (Continued) -------- Specimen: [id number] Received: 08/29/23 (Continued) Gross Description (Continued) A1: Slab #1 [...] posterior margin left breast TW CPT Codes 71724 70370 LUMP WITH BIOPSY CLIP AND SUTURES LUMP WITH BIOPSY CLIP AND SUTURES -------- -------- Specimen: [id number] Received: 08/29/23 Status: WAN Gale Num: [id number] Spec Type: Surgical Subm Dr: Geraldo García DO Tissues: A Breast Biopsy/Mass Not Requiring Micro Eval of Margins (RE-EXC POST MARGIN L Procedures: /9, Gross/Micro L4, AE1-AE3/3 -------- Patient: VetoMelony [id number] (Continued) (more content not included)... Normal [facility] Automated basophil %Ordered By: Ibrahima Chand on 08-01-2023 Basophils/100 WBC (Bld) 0.5 % Normal . [facility] Comment on above: Performed By: #### C BC, BMP #### [address] Automated basophil countOrde red By: Ibrahima Chand on 08-01-2023 Basophils (Bld) [#/Vol] 0.0 10*3/uL Normal 0.0-0.2 [facility] Comment on above: Result Comment: PERF ORMED BY: [place] [address] PATHOLOGIST INCLUSION TEACHER HUI NORTH M.D. Performed By: #### C BC, BMP #### [address] Automated blood monocyte cou ntOrdered By: Ibrahima Mannie on 08-01-2023 Monocytes (Bld) [#/Vol] 0.4 10*3/uL Normal 0.0-0.8 [facility] Comment on above: Performed By: #### C BC, BMP #### [address] Automated eosinophil %Ordere d By: Ibrahima Maciasain on 08-01-2023 Eosinophils/100 WBC (Bld) 0.1 % Normal . [facility] Comment on above: Performed By: #### C BC, BMP #### [address] Automated eosinophil countOr dered By: Ibrahima Maciasain on 08-01-2023 Eosinophils (Bld) [#/Vol] 0.0 10*3/uL Normal 0.0-0.45 [facility] Comment on above: Performed By: #### C BC, BMP #### [address] Automated monocyte %Ordered By: Ibrahima Mannie on 08-01-2023 Monocytes/100 WBC (Bld) 7.1 % Normal . [facility] Comment on above: Performed By: #### C BC, BMP #### [address] Automated neutrophil %Ordere d By: Ibrahima Chand on 08-01-2023 Neutrophils/100 WBC (Bld) 73.1 % Normal . [facility] Comment on above: Performed By: #### C BC, BMP #### [address] Basic Metabolic Panelon 07-07 Anion gap [Moles/Vol] Not performed Normal 6.0-15.0 [facility] Comment on above: Performed By: #### C BC, BMP #### [address] Creatinine Clr Calc Pharmacy 75.96 Normal [facility] Comment on above: Result Comment: PERF ORMED BY: [place] [address] PATHOLOGIST INCLUSION TEACHER HUI NORTH M.D. Performed By: #### C BC, BMP #### [address] GFR/1.73 sq M.predicted MDRD (S/P/Bld) [Vol rate/Area] mL/min/{1.73_m2} Normal [facility] Comment on above: Performed By: #### C BC, BMP #### [address] Potassium Normal 3.5-5.1 [facility] Comment on above: Result Comment: Spec imen hemolyzed, redraw requested Performed By: #### C BC, BMP #### [address] Calcium [Mass/volume] in Ser um or PlasmaOrdered By: Ibrahima Chand on 08-01-2023 Calcium [Mass/Vol] 9.2 mg/dL Normal 8.6-10.3 [facility] Comment on above: Performed By: #### C BC, BMP #### [address] Carbon dioxide, total [Moles /volume] in Serum or PlasmaOrdered By: Ibrahima Chand on 08-01-2023 CO2 [Moles/Vol] 25.7 mmol/L Normal 21.0-31.0 [facility] Comment on above: Performed By: #### C BC, BMP #### [address] Chloride [Moles/volume] in S cristi or PlasmaOrdered By: Ibrahima Chand on 08-01-2023 Chloride [Moles/Vol] 106 mmol/L Normal 98-107 [facility] Comment on above: Performed By: #### C BC, BMP #### [address] Complete Blood Count Auto Di ffon 08-01-2023 Mean Corpuscular HGB Conc 32.5 g/dL Normal 32.0-35.0 [facility] Comment on above: Performed By: #### C BC, BMP #### [address] NRBC% 0.1 /100{WBC} Normal 0-0.5 [facility] Comment on above: Performed By: #### C BC, BMP #### [address] Creatinine [Mass/volume] in Serum or PlasmaOrdered By: Ibrahima Chand on 08-01-2023 Creatinine [Mass/Vol] 0.79 mg/dL Normal 0.60-1.20 [facility] Comment on above: Performed By: #### C BC, BMP #### [address] Erythrocyte distribution wid th [Ratio] by Automated countOrdered By: Ibrahima Chand on 08-01-2023 Erythrocyte distribution width (RBC) [Ratio] 14.7 % Normal 11.9-15.3 [facility] Comment on above: Performed By: #### C BC, BMP #### [place] [address] [place] Erythrocytes [#/volume] in B lood by Automated countOrdered By: Ibrahima Chand on 08-01-2023 RBC (Bld) [#/Vol] 5.07 10*6/uL High 3.60-5.00 [facility] Comment on above: Performed By: #### C BC, BMP #### [address] Glucose [Mass/volume] in Ser um or PlasmaOrdered By: Ibrahima Maciasain on 08-01-2023 Glucose [Mass/Vol] 157 mg/dL High 70-100 [facility] Comment on above: ADA recommended refe rence rangeRandom Glucose Reference Range is dependent on time and content of last meal. Glucose of more than 200 mg/dL in a nonstressed, ambulatory subject supports the diagnosis of Diabetes Mellitus. Result Comment: [place] om Glucose Reference Range is dependent on time and content of last meal. Glucose of more than 200 mg/dL in a nonstressed, ambulatory subject supports the diagnosis of Diabetes Mellitus. ADA recommended reference range Performed By: #### C BC, BMP #### [address] Hematocrit [Volume Fraction] of Blood by Automated countOrdered By: Ibrahima Chand on 08-01-2023 Hematocrit (Bld) [Volume fraction] 43.1 % Normal 34.0-46.4 [facility] Comment on above: Performed By: #### C BC, BMP #### [address] Hemoglobin [Mass/volume] in BloodOrdered By: Ibrahima Chand on 08-01-2023 Hemoglobin (Bld) [Mass/Vol] 14.0 g/dL Normal 11.8-15.4 [facility] Comment on above: Performed By: #### C BC, BMP #### [address] Yoan 08-01-2023 L Specimen: [id number] Received: 08/01/23 Status: WAN Beasley Num: [id number] Spec Type: Surgical Subm Dr: Geraldo García, DO Tissues: A Breast [place] Lymph Node (LT SN) B Breast Lumpectmy/Mass - Requiring Micros Eval of Margins (LT BREAST) Procedures: HE/21, Gross/Micro L5/2, Frozen Section, Froz Sec, Add, E CADHERIN/2, IHC First AB, FS HE/4 Age/ Patient Sex Location Account Attending Physician Melony Manley 58/F [place] [id number] Geraldo García DO SPEC NUM: RECD: 08/01/23 STATUS: WAN [place] NUM: [id number] MANGO: 08/01/23-[address]: Geraldo García DO ENTERED: 08/01/23 [facility] DR: SPEC TYPE: Surgical DEPT: S ORDERED: HE/21, Gross/Micro L5/2, Frozen Section, Froz Sec, Add, E CADHERIN/2, IHC First AB, FS HE/4 ORDERED: HE/21, Gross/Micro L5/2, Frozen Section, Froz Sec, Add, E CADHERIN/2, IHC First AB, FS HE/4 Supplemental Report Addendum 1 Entered: 10/10/23 Oncotype DX breast recurrence score report: Recurrence score result: 17 Distant recurrence risk at 9 years: 15% Group average absolute chemotherapy benefit: No apparent benefit. Please see attached report for details. Addendum Signed (signature on file) Garfield Gordillo MD 10/10/23 173 -------- -------- Specimen: [id number] Received: 08/01/23 Status: WAN [place] Num: [id number] Spec Type: Surgical Subm Dr: Geraldo Itzkowitz, DO Tissues: A Breast [place] Lymph Node (LT SN) B Breast Lumpectmy/Mass - Requiring Micros Eval of Margins (LT BREAST) Procedures: HE/21, Gross/Micro L5/2, Frozen Section, Paul Sec, Add, E CADHERIN/2, IHC First AB, FS HE/4 -------- Patient: Melony Manley [id number] (Continued) -------- Specimen: [id number] Received: 08/01/23 (Continued) Signed (signature on file) Garfield Gordillo MD 08/08/23 1730 -------- Specimen: [id number] Received: 08/01/23 Status: WAN Beasley Num: [id number] Spec Type: Surgical Subm Dr: Geraldo García, DO Tissues: A Breast [place] Lymph Node (LT SN) B Breast Lumpectmy/Mass - Requiring Micros Eval of Margins (LT BREAST) Procedures: HE/21, Gross/Micro L5/2, Frozen Section, Froz Sec, Add, E CADHERIN/2, IHC First AB, FS HE/4 -------- Patient: Melony Manley [id number] (Continued) -------- Specimen: [id number] Received: 08/01/23-1200 (Continued) Pathological Diagnosis A. [place] node, left axilla, biopsy: Metastatic carcinoma to [...] Examined (sentinel and non-sentinel): 4 Number of [place] Nodes Examined: 4 pTNM CLASSIFICATION (AJCC 8th Edition) -------- Specimen: [id number] Received: 08/01/23-1199 Status: WAN Beasley Num: [id number] Spec Type: Surgical Subm Dr: Geraldo García, DO Tissues: A Breast [place] Lymph Node (LT SN) B Breast Lumpectmy/Mass - Requiring Micros Eval of Margins (LT BREAST (more content not included)... Normal [facility] Leukocytes [#/volume] correc cori for nucleated erythrocytes in Blood by Automated counOrdered By: Ibrahima Chand on 08-01-2023 WBC corrected for nucl RBC Auto (Bld) [#/Vol] 5.5 10*3/uL 3.8-11.6 [facility] Leukocytes [#/volume] in Blo od by Automated countOrdered By: Ibrahima Chand on 08-01-2023 WBC (Bld) [#/Vol] 5.5 10*3/uL Normal 3.8-11.6 [facility] Comment on above: Performed By: #### C BC, BMP #### [facility] [address] [place] [address] [place] Lymphocytes [#/volume] in Bl ood by Automated countOrdered By: Ibrahima Chand on 08-01-2023 Lymphocytes (Bld) [#/Vol] 1.1 10*3/uL Normal 1.00-4.8 [facility] Comment on above: Performed By: #### C BC, BMP #### [facility] [address] [place] [address] [place] Lymphocytes/100 leukocytes i n Blood by Automated countOrdered By: Ibrahima Chand on 08-01-2023 Lymphocytes/100 WBC (Bld) 19.2 % Normal . [facility] Comment on above: Performed By: #### C BC, BMP #### [facility] [address] [place] [address] MCH [Entitic mass] by Automa cori countOrdered By: Ibrahima Chand on 08-01-2023 MCH (RBC) [Entitic mass] 27.6 pg Normal 24.7-34.3 [facility] Comment on above: Performed By: #### C BC, BMP #### [facility] [address] [place] [address] MCHC Auto (RBC) [Mass/Vol]Or dered By: Ibrahima Chand on 08-01-2023 MCHC (RBC) [Mass/Vol] 32.5 g/dL 32.0-35.0 [facility] MCV [Entitic volume] by Auto mated countOrdered By: Ibrahima Mannie on 08-01-2023 MCV (RBC) [Entitic vol] 84.9 fL Normal 80-100 [facility] Comment on above: Performed By: #### C CARLEEN, BMP #### [facility] [address] [place] [address] MM surgical specimen LTon MM surgical specimen LT [facility] Main [place] [address] [place] [address] Mammography Report Signed Patient: Melony Manley MR#: [id number] : 1965 Acct:[id number] Age/Sex: 58 / F ADM Date: 08/01/23 Loc: [place] Room: Type: [facility] Attending Dr: Geraldo García DO Copies to: [...] Sandro Cintron M.D.08/01/2023 1:27 PM Dictation Location: RADIO-PC-12 Transcribed By: [facility] 08/01/23 1327 Dictated By: Sandro Cintron DO 08/01/23 1326 Signed By: 08/01/23 1327 Normal [facility] NM sentinel node w imagingon 08-01-2023 NM sentinel node w imaging [facility] [place] [address] Nuclear Medicine Report Signed Patient: Melony Manley MR#: [id number] : 1965 Acct:[id number] Age/Sex: 58 / F ADM Date: 08/01/23 Loc: [place] Room: Type: [facility] Attending Dr: Geraldo García DO Copies to: DO Mateusz Alexandre Jr, DO Ordering Provider: Geraldo García DO Date of Service: 08/01/23 NM/NM sentinel node w imaging: Left Breast Cancer Nuclear medicine [place] node lymphoscintigraphy. Reason for exam: Left breast [...] Jamison Jr., D.OBeatriz08/01/2023 1:51 PM Dictation Location: RADIO-PC-08 Transcribed By: JONA 08/01/23 1351 Dictated By: Mateusz Jamison Jr, DO 08/01/23 1350 Signed By: 08/01/23 1351 Normal [facility] Neutrophils [#/volume] in Bl ood by Automated countOrdered By: Ibrahima Chand on 08-01-2023 Neutrophils (Bld) [#/Vol] 4.0 10*3/uL Normal 1.8-7.7 [facility] Comment on above: Performed By: #### C BC, BMP #### [facility] [address] [place] [address] No Panel InformationOrdered By: Ibrahima Mannie on 08-01-2023 Estimated GFR (CKD-EPI) > 60.0 mL/Min [facility] Creatinine Clearance (Chem 75.96 [facility] Nucleated erythrocytes [Pres ence] in Blood by Automated countOrdered By: Ibrahima Mannie on 08-01-2023 Nucleated RBC Auto Ql (Bld) 0.1 /100{WBC} 0-0.5 [facility] Platelet mean volume [Entiti c volume] in Blood by Automated countOrdered By: Ibrahima Chand on 08-01-2023 Platelet mean volume (Bld) [Entitic vol] 8.3 fL Normal 6.3-10.7 [facility] [facility] Comment on above: Performed By: #### C BC, BMP #### [address] Platelets [#/volume] in Bloo d by Automated countOrdered By: Ibrahima Chand on 08-01-2023 Platelets (Bld) [#/Vol] 131 10*3/uL Low 150-450 [facility] Comment on above: Performed By: #### C BC, BMP #### [address] Potassium [Moles/volume] in Serum or PlasmaOrdered By: Geraldo García on 08-01-2023 Potassium [Moles/Vol] 4.5 mmol/L Normal 3.5-5.1 [facility] Comment on above: Order Comment: Angelo e send a mobile engineer per Christin in Surg Prep. MLG Result Comment: PERF ORMED BY: [place] [address] PATHOLOGIST INCLUSION TEACHER HUI NORTH M.D. Performed By: #### R GREY Cruz #### [address] Serum or plasma anion gap de terminationOrdered By: Ibrahima Chand on 08-01-2023 Anion gap [Moles/Vol] TNP [facility] Comment on above: Test not performed Sodium [Moles/volume] in Ser um or PlasmaOrdered By: Ibrahima Chand on 08-01-2023 Sodium [Moles/Vol] 142 mmol/L Normal 136-145 [facility] Comment on above: Performed By: #### C BC, BMP #### [facility] [address] Urea nitrogen [Mass/volume] in Serum or PlasmaOrdered By: Ibrahima Maciasain on 08-01-2023 Urea nitrogen [Mass/Vol] 9 mg/dL Normal 7-25 [facility] Comment on above: Performed By: #### C BC, BMP #### [facility] [address] [place] [address] [place] MM needle loc LTon 4 MM needle loc LT [facility] [place] [address] Mammography Report Signed Patient: Melony Manley MR#: [id number] : 1965 Acct:[id number] Age/Sex: 58 / F ADM Date: 07/24/23 Loc: [place] Room: Type: PRE [facility] Attending Dr: Geraldo García DO Copies to: DO Susan Alexandre MD Ordering Provider: Geraldo García DO Date of Service: 07/31/23 MM/MM needle loc LT: LEFT BREAST RADIOACTIVE SEED LOC LEFT BREAST MAMMOGRAPHIC SEED LOCALIZATION CLINICAL DATA: Left breast cancer Patient's previous imaging from August 01, 2022 through May 16, 2023 was reviewed. The procedure was discussed with patient and consent was obtained. Patient was placed in mediolateral compression and a video arcade manager view of the inferior left breast was [...] Althea Tobar M.D.07/31/2023 12:53 PM Dictation Location: [facility] Transcribed By: JONA 07/31/23 1253 Dictated By: Althea Tobar MD 07/31/23 1248 Signed By: 07/31/23 1253 Normal [facility] Human papilloma virus 16+18+ 31+33+35+39+45+51+52+56+58+59+66+68 DNA [Presence] in Pricila 07-24-2023 HPV 16+18+31+33+35+39+45+51+ 52+56+58+59+66+68 DNA Probe+sig amp Ql (Cvx) Negative Negative [facility] Comment on above: This nucleic acid am plification test detects fourteen high-risk HPV types (16,18,31,33,35,39,45,51,52,56,58,59,66,68)without differentiation.Performed at: = - [facility] [id number] Director: Venus Acevedo MD, Phone: [phone] at: [facility] [id number] Director: Venus Acevedo MD, Phone: [phone] No Panel Informationon 07-23 HPV High Risk Other Comment Note . [facility] Comment on above: TESTS RESULT FLAG UN ITS REF RANGE LAB --DIAGNOSIS: 02 NEGATIVE FOR INTRAEPITHELIAL LESION OR MALIGNANCY.Specimen adequacy: 02 Satisfactory for evaluation. Endocervical and/or squamous metaplastic cells (endocervical component) are present.Performed by: 02 Yisel Corley Parachute Harness Rigger (ASCP). 02Note: Note 02 The Pap smear [...] <-Panic Low,>-Panic High,A-Abnormal,AA-Critical Abnormal -------Performed at:[address] [id number] Venus Acevedo MD, Reference Lab Test Patient Age Note . [facility] Comment on above: TESTS RESULT FLAG UN ITS REF RANGE LAB -- Clinician Provided Cytology Information Source.............Cervix;Endocervix No. of containers..01 ThinPrep VialAge Irena HERNANDEZ Bailey... 30 - FLAG LEGEND: L-Low Normal,H-High Normal,LL-Alert Low,HH-Alert High <-Panic Low,>-Panic High,A-Abnormal,AA-Critical Abnormal -------Performed at:01 [address] [facility] [place] [address] Venus Acevedo MD, Automated basophil %Ordered By: Geraldo García on 07-19-2023 Basophils/100 WBC (Bld) 0.6 % Normal . [facility] Comment on above: Performed By: #### B MP, CBC #### [facility] [address] [place] [address] Automated basophil countOrde red By: Geraldo García on 07-19-2023 Basophils (Bld) [#/Vol] 0.0 10*3/uL Normal 0.0-0.2 [facility] Comment on above: Result Comment: PERF ORMED BY: [place] [address] PATHOLOGIST INCLUSION TEACHER HUI NORTH M.D. Performed By: #### B MP, CBC #### [facility] [address] [place] [address] Automated blood monocyte cou ntOrdered By: Geraldo García on 07-19-2023 Monocytes (Bld) [#/Vol] 0.3 10*3/uL Normal 0.0-0.8 [facility] Comment on above: Performed By: #### B MP, CBC #### [facility] [address] [place] [address] Automated eosinophil %Ordere d By: Geraldo García on 07-19-2023 Eosinophils/100 WBC (Bld) 0.0 % Normal . [facility] Comment on above: Performed By: #### B MP, CBC #### [address] Automated eosinophil countOr dered By: Geraldo García on 07-19-2023 Eosinophils (Bld) [#/Vol] 0.0 10*3/uL Normal 0.0-0.45 [facility] Comment on above: Performed By: #### B MP, CBC #### [address] Automated monocyte %Ordered By: Geraldo García on 07-19-2023 Monocytes/100 WBC (Bld) 6.6 % Normal . [facility] Comment on above: Performed By: #### B MP, CBC #### [address] Automated neutrophil %Ordere d By: Geraldo García on 07-19-2023 Neutrophils/100 WBC (Bld) 77.1 % Normal . [facility] Comment on above: Performed By: #### B MP, CBC #### [address] Basic Metabolic Panelon 07-06 GFR/1.73 sq M.predicted MDRD (S/P/Bld) [Vol rate/Area] mL/min/{1.73_m2} Normal [facility] Comment on above: Performed By: #### B MP, CBC #### [address] Calcium [Mass/volume] in Ser um or PlasmaOrdered By: Geraldo García on 07-19-2023 Calcium [Mass/Vol] 9.5 mg/dL Normal 8.6-10.3 [facility] Comment on above: Result Comment: PERF ORMED BY: [place] [address] PATHOLOGIST INCLUSION TEACHER HUI NORTH M.D. Performed By: #### B MP, CBC #### [address] Carbon dioxide, total [Moles /volume] in Serum or PlasmaOrdered By: Geraldo García on 07-19-2023 CO2 [Moles/Vol] 27.6 mmol/L Normal 21.0-31.0 [facility] Comment on above: Performed By: #### B MP, CBC #### [address] Chloride [Moles/volume] in S cristi or PlasmaOrdered By: Geraldo García on 07-19-2023 Chloride [Moles/Vol] 101 mmol/L Normal 98-107 [facility] Comment on above: Performed By: #### B MP, CBC #### [address] Complete Blood Count Auto Di ffon 07-19-2023 Mean Corpuscular HGB Conc 33.1 g/dL Normal 32.0-35.0 [facility] Comment on above: Performed By: #### B MP, CBC #### [address] NRBC% 0.1 /100{WBC} Normal 0-0.5 [facility] Comment on above: Performed By: #### B MP, CBC #### [address] Creatinine [Mass/volume] in Serum or PlasmaOrdered By: Geraldo García on 07-19-2023 Creatinine [Mass/Vol] 0.90 mg/dL Normal 0.60-1.20 [facility] Comment on above: Performed By: #### B MP, CBC #### [address] Erythrocyte distribution wid th [Ratio] by Automated countOrdered By: Geraldo García on 07-19-2023 Erythrocyte distribution width (RBC) [Ratio] 14.1 % Normal 11.9-15.3 [facility] Comment on above: Performed By: #### B MP, CBC #### [place] [address] [place] Erythrocytes [#/volume] in B lood by Automated countOrdered By: Geraldo García on 07-19-2023 RBC (Bld) [#/Vol] 4.69 10*6/uL Normal 3.60-5.00 [facility] Comment on above: Performed By: #### B RIGOBERTO, CBC #### [facility] [address] Glucose [Mass/volume] in Ser um or PlasmaOrdered By: Geraldo García on 07-19-2023 Glucose [Mass/Vol] 333 mg/dL High 70-100 [facility] Comment on above: ADA recommended refe rence rangeRandom Glucose Reference Range is dependent on time and content of last meal. Glucose of more than 200 mg/dL in a nonstressed, ambulatory subject supports the diagnosis of Diabetes Mellitus. Result Comment: [place] om Glucose Reference Range is dependent on time and content of last meal. Glucose of more than 200 mg/dL in a nonstressed, ambulatory subject supports the diagnosis of Diabetes Mellitus. ADA recommended reference range Performed By: #### B RIGOBERTO, CBC #### [facility] [address] Hematocrit [Volume Fraction] of Blood by Automated countOrdered By: Geraldo García on 07-19-2023 Hematocrit (Bld) [Volume fraction] 39.2 % Normal 34.0-46.4 [facility] Comment on above: Performed By: #### B RIGOBERTO, CBC #### [facility] [address] [place] [address] [place] Hemoglobin [Mass/volume] in BloodOrdered By: Geraldo García on 07-19-2023 Hemoglobin (Bld) [Mass/Vol] 13.0 g/dL Normal 11.8-15.4 [facility] Comment on above: Performed By: #### B RIGOBERTO, CBC #### [place] [address] [place] Leukocytes [#/volume] correc cori for nucleated erythrocytes in Blood by Automated counOrdered By: Geraldo García on 07-19-2023 WBC corrected for nucl RBC Auto (Bld) [#/Vol] 4.8 10*3/uL 3.8-11.6 [facility] Leukocytes [#/volume] in Blo od by Automated countOrdered By: Geraldo García on 07-19-2023 WBC (Bld) [#/Vol] 4.8 10*3/uL Normal 3.8-11.6 [facility] Comment on above: Performed By: #### B MP, CBC #### [facility] [address] [place] [address] Lymphocytes [#/volume] in Bl ood by Automated countOrdered By: Geraldo García on 07-19-2023 Lymphocytes (Bld) [#/Vol] 0.7 10*3/uL Low 1.00-4.8 [facility] Comment on above: Performed By: #### B MP, CBC #### [facility] [address] [place] [address] Lymphocytes/100 leukocytes i n Blood by Automated countOrdered By: Geraldo García on 07-19-2023 Lymphocytes/100 WBC (Bld) 15.7 % Normal . [facility] Comment on above: Performed By: #### B MP, CBC #### [facility] [address] [place] [address] MCH [Entitic mass] by Automa cori countOrdered By: Geraldo García on 07-19-2023 MCH (RBC) [Entitic mass] 27.7 pg Normal 24.7-34.3 [facility] Comment on above: Performed By: #### B MP, CBC #### [facility] [address] [place] [address] MCHC Auto (RBC) [Mass/Vol]Or dered By: Geraldo García on 07-19-2023 MCHC (RBC) [Mass/Vol] 33.1 g/dL 32.0-35.0 [facility] MCV [Entitic volume] by Auto mated countOrdered By: Geraldo García on 07-19-2023 MCV (RBC) [Entitic vol] 83.7 fL Normal 80-100 [facility] Comment on above: Performed By: #### B MP, CBC #### [address] Neutrophils [#/volume] in Bl ood by Automated countOrdered By: Geraldo García on 07-19-2023 Neutrophils (Bld) [#/Vol] 3.7 10*3/uL Normal 1.8-7.7 [facility] Comment on above: Performed By: #### B MP, CBC #### [address] No Panel InformationOrdered By: Geraldo García on 07-19-2023 Estimated GFR (CKD-EPI) > 60.0 mL/Min [facility] Creatinine Clearance (Chem N/A [facility] Nucleated erythrocytes [Pres ence] in Blood by Automated countOrdered By: Geraldo García on 07-19-2023 Nucleated RBC Auto Ql (Bld) 0.1 /100{WBC} 0-0.5 [facility] Platelet mean volume [Entiti c volume] in Blood by Automated countOrdered By: Geraldo García on 07-19-2023 Platelet mean volume (Bld) [Entitic vol] 8.4 fL Normal 6.3-10.7 [facility] Comment on above: Performed By: #### B MP, CBC #### [facility] [address] [place] [address] [place] Platelets [#/volume] in Bloo d by Automated countOrdered By: Geraldo García on 07-19-2023 Platelets (Bld) [#/Vol] 127 10*3/uL Low 150-450 [facility] Comment on above: Performed By: #### B MP, CBC #### [address] Potassium [Moles/volume] in Serum or PlasmaOrdered By: Geraldo García on 07-19-2023 Potassium [Moles/Vol] 3.8 mmol/L Normal 3.5-5.1 [facility] Comment on above: Performed By: #### B MP, CBC #### [facility] [address] [place] [address] Serum or plasma anion gap de terminationOrdered By: Geraldo García on 07-19-2023 Anion gap [Moles/Vol] 12.2 mmol/L Normal 6.0-15.0 [facility] Comment on above: Performed By: #### B MP, CBC #### [address] Sodium [Moles/volume] in Ser um or PlasmaOrdered By: Geraldo García on 07-19-2023 Sodium [Moles/Vol] 137 mmol/L Normal 136-145 [facility] Comment on above: Performed By: #### B MP, CBC #### [address] Urea nitrogen [Mass/volume] in Serum or PlasmaOrdered By: Geraldo García on 07-19-2023 Urea nitrogen [Mass/Vol] 12 mg/dL Normal 7-25 [facility] Comment on above: Performed By: #### B MP, CBC #### [address] US breast LT limitedon 07-11 US breast LT limited [facility] Main [place] [address] [place] [address] Ultrasound Report Signed Patient: Melony Manley MR#: [id number] : 1965 Acct:[id number] Age/Sex: 58 / F ADM Date: 07/12/23 Loc: [facility] Room: Type: [facility] Attending Dr: Geraldo García DO Ordering Provider: [...] Althea Tobar M.D.07/12/2023 2:30 PM Dictation Location: [facility] Tech: Sheyla William Transcribed By: JONA 07/12/23 1430 Dictated By: Althea Tobar MD 07/12/23 1418 Signed By: 07/12/23 1430 Normal [facility] MRI BREAST BILATERAL W WO [...] Final result Normal [facility] Yoan 05-16-2023 L - -------- Specimen: [id number] Received: 05/16/23 Status: WAN [place] Num: [id number] Spec Type: Surgical Subm Dr: Geraldo García, DO Tissues: A BREAST CORE NO CALCS (LT BREAST TISSUE) Procedures: HE/2, Gross/Micro L4 -------- Age/ Patient Sex Location Account Attending Physician -------- VetoMelony 58/F [place] [id number] Geraldo García, DO -------- SPEC NUM: [id number] RECD: 05/16/23 STATUS: WAN RE NUM: [id number] MANGO: 05/16/[address] [facility] DR: Geraldo García DO ENTERED: 05/16/23 [facility] [place] TYPE: Surgical DEPT: S ORDERED: HE/2, Gross/Micro L4 ORDERED: HE/2, Gross/Micro L4 COMMENTS: @ Originally on account #[id number] Req #[id number] Pathological Diagnosis Left breast mass at 6:00 [...] of -------- Specimen: [id number] Received: 05/16/23 Status: WNA [place] Num: [id number] Spec Type: Surgical Subm Dr: Geraldo García, DO Tissues: A BREAST CORE NO CALCS (LT BREAST TISSUE) Procedures: HE/2, Gross/Micro L4 -------- Patient: Melony Manley [id number] (Continued) -------- Specimen: [id number] Received: 05/16/23 (Continued) Gross Description (Continued) Signed (signature on file) Francis Zapata MD 05/17/23 1009 -------- Specimen: [id number] Received: 05/16/23 Status: WAN Beas[place] Num: [id number] Spec Type: Surgical Subm Dr: Geraldo García, DO Tissues: A BREAST CORE NO CALCS (LT BREAST TISSUE) Procedures: HE/2, Gross/Micro L4 -------- Patient: Melony Manley [id number] (Continued) -------- Specimen: [id number] Received: 05/16/23 (Continued) Gross Description (Continued) formalin: 6 PM 05/16/2023. Cold Ischemia and Fixation Time meets the requirements specified in the latest version of the ASCO/CAP guidelines: Yes. Cold Ischemic Time: 0.08 Formalin Fixation Time: 7.42 Microscopic Description Two H E slides reviewed. The microscopic examination confirms the diagnosis. CPT Codes 87129 -------- -------- Specimen: [id number] Received: 05/16/23 Status: WAN Beasley Num: [id number] Spec Type: Surgical Subm Dr: Geraldo García, Tissues: A BREAST CORE NO CALCS (LT BREAST TISSUE) Procedures: HE/Jose, Charli/Micro L4 -------- Patient: Melony Manley [id number] (Continued) -------- Signed (signature on file) Francis Zapata MD 05/17/23 1009 Normal [facility] US breast LT limitedon 05-16 breast LT limited [address] [address] Mammography Report Signed with Ronaldo Patient: Melony Manley MR#: [id number] : 1965 Acct:[id number] Age/Sex: 58 / F ADM Date: 04/28/23 Loc: [place] Room: Type: PRE [facility] Attending Dr: Geraldo García DO Copies to: DO Susan Alexandre MD Ordering Provider: Geraldo García DO Date of Service: 05/16/23 US/US breast LT limited: ABN. MAMM ([id number]) US/US extremity nonvascular: LEFT AXILLA ([id number]) US/US breast ndl core biopsy LT: ABN. MAMM ([id number]) MM/MM post biopsy LT w/CAD: POST U/S BX WITH CLIP ADDENDUM 1 Addendum for pathology: Ultrasound-guided biopsy 6:00 position 2 cm from the nipple: Focal fibroadenomatoid change. No in situ or invasive carcinoma identified. Finding is benign and concordant with imaging. Surgical/oncologic management of the patient's known cancer is recommended. Impression dictated by: Mateusz Jamison Jr., Jackie05/18/2023 9:20 AM Dictation Location: [place] [address] Addendum Dictated By: Mateusz Jamison Jr, DO Addendum Signed By: 05/18/23919 Addendum Cosigned By: DD/ /31/918 TD/TT: 05/18/2303/31/920 ULTRASOUND GUIDED VACUUM-ASSISTED HOLOGIC ATEC SYSTEM CORE BIOPSIES OF THE LEFT BREAST: CLINICAL DATA: History of stereotactically biopsied breast cancer within the left breast. PROCEDURE: The patient was initially scheduled for a radioactive seed placement. The patient's outside images from [facility] were reviewed and discussed with the referring [...] cm from the nipple was performed by food technologist . The previously identified mass was [...] breast mass were performed using a 12-gauge [employer] vacuum-assisted core biopsy needle under ultrasound guidance. [...] Jamison Jr., D.OBeatriz05/16/2023 12:03 PM Dictation Location: [facility] Transcribed By: [facility] 05/16/23 1203 Dictated By: Mateusz Jamison Jr, DO 05/16/23 1046 Signed By: 05/16/23 1203 Normal [facility] Automated basophil %Ordered By: Geraldo García on 05-02-2023 Basophils/100 WBC (Bld) 0.5 % Normal . [facility] Comment on above: Performed By: #### C RICA DURANT #### [facility] [address] [place] [address] Automated basophil countOrde red By: Geraldo García on 05-02-2023 Basophils (Bld) [#/Vol] 0.0 10*3/uL Normal 0.0-0.2 [facility] Comment on above: Result Comment: PERF ORMED BY: [place] [address] PATHOLOGIST INCLUSION TEACHER HUI NORTH M.D. Performed By: #### C CARLEEN BMP #### [address] Automated blood monocyte cou ntOrdered By: Geraldo García on 05-02-2023 Monocytes (Bld) [#/Vol] 0.4 10*3/uL Normal 0.0-0.8 [facility] Comment on above: Performed By: #### C BC, BMP #### [address] Automated eosinophil %Ordere d By: Geraldo García on 05-02-2023 Eosinophils/100 WBC (Bld) 0.0 % Normal . [facility] Comment on above: Performed By: #### C BC, BMP #### [address] Automated eosinophil countOr dered By: Geraldo García on 05-02-2023 Eosinophils (Bld) [#/Vol] 0.0 10*3/uL Normal 0.0-0.45 [facility] Comment on above: Performed By: #### C BC, BMP #### [address] Automated monocyte %Ordered By: Geraldo García on 05-02-2023 Monocytes/100 WBC (Bld) 6.5 % Normal . [facility] Comment on above: Performed By: #### C BC, BMP #### [address] Automated neutrophil %Ordere d By: Geraldo García on 05-02-2023 Neutrophils/100 WBC (Bld) 71.5 % Normal . [facility] Comment on above: Performed By: #### C BC, BMP #### [address] Basic Metabolic Panelon 04-08 GFR/1.73 sq M.predicted MDRD (S/P/Bld) [Vol rate/Area] mL/min/{1.73_m2} Normal [facility] Comment on above: Performed By: #### C BC, BMP #### [place] [address] [place] Calcium [Mass/volume] in Ser um or PlasmaOrdered By: Geraldo García on 05-02-2023 Calcium [Mass/Vol] 9.8 mg/dL Normal 8.6-10.3 [facility] Comment on above: Result Comment: PERF ORMED BY: [place] [address] PATHOLOGIST INCLUSION TEACHER HUI NORTH M.D. Performed By: #### C BC, BMP #### [address] Carbon dioxide, total [Moles /volume] in Serum or PlasmaOrdered By: Geraldo García on 05-02-2023 CO2 [Moles/Vol] 26.0 mmol/L Normal 21.0-31.0 [facility] Comment on above: Performed By: #### C BC, BMP #### [place] [address] [place] Chloride [Moles/volume] in S cristi or PlasmaOrdered By: Geraldo García on 05-02-2023 Chloride [Moles/Vol] 107 mmol/L Normal 98-107 [facility] Comment on above: Performed By: #### C BC, BMP #### [address] Complete Blood Count Auto Di ffon 05-02-2023 Mean Corpuscular HGB Conc 33.1 g/dL Normal 32.0-35.0 [facility] Comment on above: Performed By: #### C BC, BMP #### [place] [address] [place] NRBC% 0.0 /100{WBC} Normal 0-0.5 [facility] Comment on above: Performed By: #### C BC, BMP #### [place] [address] [place] Creatinine [Mass/volume] in Serum or PlasmaOrdered By: Geraldo García on 05-02-2023 Creatinine [Mass/Vol] 0.93 mg/dL Normal 0.60-1.20 [facility] Comment on above: Performed By: #### C CARLEEN, BMP #### [facility] [address] [place] [address] ECG 12 lead ECGon 05-02-2023 ECG 12 lead ECG [facility] Main [place] [address] [place] [address] Electrocardiograph Report Signed Patient: Melony Manley MR#: [id number] : 1965 Acct:[id number] Age/Sex: 58 / F ADM Date: 05/02/23 Loc: Room: Type: [facility] Attending Dr: Geraldo García DO Ordering Provider: [...] Electronically Signed By:SANDRO VILLARREAL DO Transcribed By: MUS Signed By Sandro Villarreal DO 05/03 0946 Normal [facility] Erythrocyte distribution wid th [Ratio] by Automated countOrdered By: Geraldo García on 05-02-2023 Erythrocyte distribution width (RBC) [Ratio] 14.0 % Normal 11.9-15.3 [facility] Comment on above: Performed By: #### C CARLEEN, BMP #### [facility] [address] [place] [address] Erythrocytes [#/volume] in B lood by Automated countOrdered By: Geraldo García on 05-02-2023 RBC (Bld) [#/Vol] 4.53 10*6/uL Normal 3.60-5.00 [facility] Comment on above: Performed By: #### C CARLEEN, BMP #### [facility] [address] [place] [address] [place] Glucose [Mass/volume] in Ser um or PlasmaOrdered By: Geraldo García on 05-02-2023 Glucose [Mass/Vol] 147 mg/dL High 70-100 [facility] Comment on above: ADA recommended refe rence rangeRandom Glucose Reference Range is dependent on time and content of last meal. Glucose of more than 200 mg/dL in a nonstressed, ambulatory subject supports the diagnosis of Diabetes Mellitus. Result Comment: [place] om Glucose Reference Range is dependent on time and content of last meal. Glucose of more than 200 mg/dL in a nonstressed, ambulatory subject supports the diagnosis of Diabetes Mellitus. ADA recommended reference range Performed By: #### C CARLEEN, BMP #### [place] [address] [place] Hematocrit [Volume Fraction] of Blood by Automated countOrdered By: Geraldo García on 05-02-2023 Hematocrit (Bld) [Volume fraction] 38.9 % Normal 34.0-46.4 [facility] Comment on above: Performed By: #### C CARLEEN, BMP #### [address] Hemoglobin [Mass/volume] in BloodOrdered By: Geraldo García on 05-02-2023 Hemoglobin (Bld) [Mass/Vol] 12.9 g/dL Normal 11.8-15.4 [facility] Comment on above: Performed By: #### C CARLEEN, BMP #### [address] Leukocytes [#/volume] correc cori for nucleated erythrocytes in Blood by Automated counOrdered By: Geraldo García on 05-02-2023 WBC corrected for nucl RBC Auto (Bld) [#/Vol] 5.7 10*3/uL 3.8-11.6 [facility] Leukocytes [#/volume] in Blo od by Automated countOrdered By: Geraldo García on 05-02-2023 WBC (Bld) [#/Vol] 5.7 10*3/uL Normal 3.8-11.6 [facility] Comment on above: Performed By: #### C BC, BMP #### [facility] [address] [place] [address] [place] Lymphocytes [#/volume] in Bl ood by Automated countOrdered By: Geraldo García on 05-02-2023 Lymphocytes (Bld) [#/Vol] 1.2 10*3/uL Normal 1.00-4.8 [facility] Comment on above: Performed By: #### C CARLEEN, BMP #### [facility] [address] [place] [address] [place] Lymphocytes/100 leukocytes i n Blood by Automated countOrdered By: Geraldo García on 05-02-2023 Lymphocytes/100 WBC (Bld) 21.5 % Normal . [facility] Comment on above: Performed By: #### C CARLEEN, BMP #### [address] MCH [Entitic mass] by Automa cori countOrdered By: Geraldo García on 05-02-2023 MCH (RBC) [Entitic mass] 28.4 pg Normal 24.7-34.3 [facility] Comment on above: Performed By: #### C BC, BMP #### [address] MCHC Auto (RBC) [Mass/Vol]Or dered By: Geraldo García on 05-02-2023 MCHC (RBC) [Mass/Vol] 33.1 g/dL 32.0-35.0 [facility] MCV [Entitic volume] by Auto mated countOrdered By: Geraldo García on 05-02-2023 MCV (RBC) [Entitic vol] 85.8 fL Normal 80-100 F [facility] Comment on above: Performed By: #### C BC, BMP #### [place] [address] [place] Neutrophils [#/volume] in Bl ood by Automated countOrdered By: Geraldo García on 05-02-2023 Neutrophils (Bld) [#/Vol] 4.0 10*3/uL Normal 1.8-7.7 [facility] Comment on above: Performed By: #### C CARLEEN, BMP #### [address] No Panel InformationOrdered By: Geraldo García on 05-02-2023 Estimated GFR (CKD-EPI) > 60.0 mL/Min [facility] Creatinine Clearance (Chem N/A [facility] Nucleated erythrocytes [Pres ence] in Blood by Automated countOrdered By: Geraldo García on 05-02-2023 Nucleated RBC Auto Ql (Bld) 0.0 /100{WBC} 0-0.5 [facility] Platelet mean volume [Entiti c volume] in Blood by Automated countOrdered By: Geraldo García on 05-02-2023 Platelet mean volume (Bld) [Entitic vol] 7.9 fL Normal 6.3-10.7 [facility] Comment on above: Performed By: #### C CARLEEN, BMP #### [address] Platelets [#/volume] in Bloo d by Automated countOrdered By: Geraldo García on 05-02-2023 Platelets (Bld) [#/Vol] 146 10*3/uL Low 150-450 [facility] Comment on above: Performed By: #### C CARLEEN, BMP #### [address] Potassium [Moles/volume] in Serum or PlasmaOrdered By: Geraldo García on 05-02-2023 Potassium [Moles/Vol] 4.2 mmol/L Normal 3.5-5.1 [facility] Comment on above: Performed By: #### C CARLEEN, BMP #### [address] Serum or plasma anion gap de terminationOrdered By: Geraldo García on 05-02-2023 Anion gap [Moles/Vol] 13.2 mmol/L Normal 6.0-15.0 [facility] Comment on above: Performed By: #### C BC, BMP #### [facility] [address] Sodium [Moles/volume] in Ser um or PlasmaOrdered By: Geraldo García on 05-02-2023 Sodium [Moles/Vol] 142 mmol/L Normal 136-145 [facility] Comment on above: Performed By: #### C BC, BMP #### [facility] [address] Urea nitrogen [Mass/volume] in Serum or PlasmaOrdered By: Geraldo García on 05-02-2023 Urea nitrogen [Mass/Vol] 12 mg/dL Normal 7-25 [facility] Comment on above: Performed By: #### C BC, BMP #### [facility] [address] [place] [address] MG MAMM LT DIAG FUon 023 MG MAMM LT DIAG FU Patient: MELONY MANLEY Exam Date: 08/26/2022 : 1965 Gender:F Ordering : DR LITTLE STAFFORD . Admission #: [id number] Family : Order #: [id number] CLICK HERE TO VIEW EXAM RADIOLOGY REPORT [...] stomach cancer at age 54. LOCATION: [facility] BREAST COMPOSITION: Heterogeneously dense,which may obscure small [...] M.D. on 08/26/2022 at 14:39 Normal [facility] US BREAST LEFT LIMITEDon US BREAST LEFT LIMITED Patient: MELONY MANLEY Exam Date: 08/26/2022 : 1965 Gender:F Ordering : DR LITTLE STAFFORD . Admission #: [id number] Family : Order #: [id number] CLICK HERE TO VIEW EXAM RADIOLOGY REPORT [...] stomach cancer at age 54. LOCATION: [facility] BREAST COMPOSITION: Heterogeneously dense,which may obscure small [...] Mccormack M.D. on 08/26/2022 at 14:39 Normal [facility] MG MAMM SCREEN 3D SOLITARIO CADon 08-01-2022 MG MAMM SCREEN 3D SOLITARIO CAD Patient: MELONY MANLEY Exam Date: 08/01/2022 : 1965 Gender:F Ordering : DR LITTLE STAFFORD . Admission #: [id number] Family : Order #: [id number] CLICK HERE TO VIEW EXAM RADIOLOGY REPORT [...] stomach cancer at age 54. LOCATION: [facility] BREAST COMPOSITION: Heterogeneously dense,which may obscure small [...] M.D. on 08/01/2022 at 12:26 Normal [facility] XR DEXA BONE DENSITYon 08-01 XR DEXA [...] by: THEA MCCORMACK Date: 2022-08-01 11:39 Normal [facility] PAP ACOG PANEL 2: 30 to 65on 07-26-2022 . . Normal [facility] Comment on above: Result Comment: Perf ormed at: WB Performed By: #### [id number] #### [facility] [address] [address] [address] Devon Gillette Age Gdln ACOG Testing 30-65 Normal [facility] Comment on above: Performed By: #### [id number] #### [facility] [address] [address] [address] Devon Gillette DIAGNOSIS: Comment Normal [facility] Comment on above: Result Comment: NEGA TIVE FOR INTRAEPITHELIAL LESION OR MALIGNANCY. Performed at: WB Performed By: #### [id number] #### [facility] [address] [address] [address] Devon Gillette HPV Aptima Negative Normal Negative [facility] Comment on above: Result Comment: This nucleic acid amplification test detects fourteen high-risk HPV types (16,18,31,33,35,39,45,51,52,56,58,59,66,68) without differentiation. Performed at: =G Performed By: #### [id number] #### [facility] [address] [address] [address] Devon Gillette HPV Genotype Reflex Comment Normal [facility] Comment on above: Result Comment: Crit eria not met, HPV Genotype not performed. Performed at: WB Performed By: #### [id number] #### [facility] [address] [place] [address] Dr. Devon Gillette Methodology: Comment Normal [facility] Comment on above: Result Comment: This liquid based ThinPrep(R) pap test was screened with the use of an image guided system. Performed at: WB Performed By: #### [id number] #### [facility] [address] [place] [address] Dr. Devon Gillette Note: Comment Normal [facility] Comment on above: Result Comment: The Pap smear is a screening test designed to aid in the detection of premalignant and malignant conditions of the uterine cervix. It is not a diagnostic procedure and should not be used as the sole means of detecting cervical cancer. Both false-positive and false-negative reports do occur. . Performed at: WB Performed By: #### [id number] #### [facility] [address] [place] [address] Dr. Devon Gillette Performed by: Comment Normal [facility] Comment on above: Result Comment: Anjelica Girard, Parachute Harness Rigger (ASCP) Performed at: WB Performed By: #### [id number] #### [facility] [address] [place] [address] Dr. Devon Gillette Specimen adequacy: Comment Normal [facility] Comment on above: Result Comment: Sati sfactory for evaluation. Endocervical and/or squamous metaplastic cells (endocervical component) are present. Performed at: WB Performed By: #### [id number] #### [facility] [address] [place] [address] Dr. Devon Gillette VAGINITIS/VAGINOSIS DNA PROB Jim 07-20-2022 Anni species Negative Normal Negative [facility] Comment on above: Performed By: #### V AGINT #### [facility] [address] [place] [address] Dr. Devon Gillette Gardnerella vaginalis Positive Abnormal Negative [facility] Comment on above: Performed By: #### V AGINT #### [facility] [address] [address] [address] Devon Gillette Trichomonas vaginalis Negative Normal Negative [facility] Comment on above: Performed By: #### V AGINT #### [facility] [address] [place] [address] Dr. Devon Gillette CULTURE URINEon 04-21-2022 CULTURE URINE Culture Observations : LIGHT GROWTH OF MIXED GENITAL LAZARO. NO POTENTIAL PATHOGENS SEEN. Normal [facility] Comment on above: Performed By: #### G FRAKNIE, TSH, LIPID, CREA #### [facility] [address] [place] [address] Dr. Devon Gillette LITHIUMon 04-15-2022 [place] (Eskalith(R)), Serum 0.6 mmol/L Normal 0.5-1.2 [facility] Comment on above: Result Comment: A co ncentration of 0.5-0.8 mmol/L is advised for long-term use; concentrations of up to 1.2 mmol/L may be necessary during acute treatment. Detection Limit = 0.1 <0.1 indicates None Detected Performed By: #### G FRANKIE, TSH, LIPID, CREA #### [facility] [address] [place] [address] Dr. Devon Gillette CREATININEon 04-14-2022 Creatinine [Mass/Vol] 0.89 mg/dL Normal 0.55-1.02 [facility] Comment on above: Performed By: #### G FRANKIE, TSH, LIPID, CREA #### [facility] [address] [place] [address] Dr. Devon Gillette EGFR-AF NAURUAN >60 Normal >=60 [facility] Comment on above: Performed By: #### G FRANKIE, TSH, LIPID, CREA #### [facility] [address] [place] [address] Dr. Devon Gillette EGFR-NON AF NAURUAN >60 Normal >=60 [facility] Comment on above: Performed By: #### G FRANKIE, TSH, LIPID, CREA #### [facility] [address] [place] [address] Dr. Devon Gillette GLUCOSE BLOODon 04-14-2022 Glucose [Mass/Vol] 118 mg/dL Critically high 74-106 T [facility] Comment on above: Performed By: #### G FRANKIE, TSH, LIPID, CREA #### [facility] [address] [place] [address] Dr. Devon Gillette LIPID PROFILEon 04-14-2022 CHOL-HDL RATIO NORM SEE BELOW Normal [facility] Comment on above: Result Comment: 3.3 - 4.4 LOW RISK 4.4 - 7.1 AVERAGE RISK 7.1 - 11.0 MODERATE RISK >11.0 HIGH RISK Performed By: #### G FRANKIE, TSH, LIPID, CREA #### [facility] [address] [address] [address] Devon Gillette Cholesterol [Mass/Vol] 128 mg/dL Normal <=200 [facility] Comment on above: Performed By: #### G FRANKIE, TSH, LIPID, CREA #### [facility] [address] [place] [address] Dr. Devon Gillette Cholesterol in HDL [Mass/Vol] 47 mg/dL Normal 40-60 [facility] Comment on above: Performed By: #### G FRANKIE, TSH, LIPID, CREA #### [facility] [address] [place] [address] Dr. Devon Gillette Cholesterol in LDL [Mass/Vol] 34.6 mg/dL Normal [facility] Comment on above: Performed By: #### G FRANKIE, TSH, LIPID, CREA #### [facility] [address] [place] [address] Dr. Devon Gillette Cholesterol.total/Choles terol in HDL [Mass ratio] 2.7 {ratio} Normal [facility] Comment on above: Performed By: #### G FRANKIE, TSH, LIPID, CREA #### [facility] [address] [place] [address] Dr. Devon Gillette HDL NORMAL > or = 60 mg/dl - LO W CARDIOVASCULAR RISK <40 mg/dl - HIGH CARDIOVASCULAR RISK Normal [facility] Comment on above: Performed By: #### G FRANKIE, TSH, LIPID, CREA #### [facility] [address] [place] [address] Dr. Devon Gillette LDL CALC NORMAL SEE BELOW Normal [facility] Comment on above: Result Comment: <100 mg/dl OPTIMAL 100 - 129 mg/dl NEAR OR ABOVE OPTIMAL 130 - 159 mg/dl BORDERLINE HIGH 160 - 189 mg/dl HIGH >190 mg/dl VERY HIGH Performed By: #### G FRANKIE, TSH, LIPID, CREA #### [facility] [address] [address] [address] Devon Gillette Triglyceride [Mass/Vol] 232 mg/dL Critically high <=150 [facility] Comment on above: Performed By: #### G FRANKIE, TSH, LIPID, CREA #### [facility] [address] [address] [address] Devon Gillette VLDL CALC 46.4 mg/dL Normal [facility] Comment on above: Performed By: #### G FRANKIE, TSH, LIPID, CREA #### [facility] [address] [place] [address] Dr. Devon Gillette TSHon 04-14-2022 TSH 0.375 uIU/mL Normal 0.358-3.740 [facility] Comment on above: Performed By: #### G FRANKIE, TSH, LIPID, CREA #### [facility] [address] [place] [address] Dr. Devon Gillette CULTURE URINEon 03-30-2022 CULTURE [...] Trimethoprim/Sulfamet hoxazole <=20 S F Normal [facility] Comment on above: Performed By: #### U RCX #### [facility] [address] [place] [address] Dr. Devon Gillette LITHIUMon 12-28-2021 [place] (Eskalith(R)), Serum 0.7 mmol/L Normal 0.5-1.2 [facility] Comment on above: Result Comment: Plas ma concentration of 0.5 - 0.8 mmol/L are advised for long-term use; concentrations of up to 1.2 mmol/L may be necessary during acute treatment. Detection Limit = 0.1 <0.1 indicates None Detected Performed By: #### G FRANKIE, TSH, LIPID, CREA #### [facility] [address] [address] [address] Devon Gillette CREATININEon 12-27-2021 Creatinine [Mass/Vol] 1.10 mg/dL Critically high 0.55-1.02 [facility] Comment on above: Performed By: #### G FRANKIE, TSH, LIPID, CREA #### [facility] [address] [address] [address] Devon Gillette EGFR-AF NAURUAN >60 Normal >=60 [facility] Comment on above: Performed By: #### G FRANKIE, TSH, LIPID, CREA #### [facility] [address] [address] [address] Devon Gillette EGFR-NON AF NAURUAN 51 mL/min/1.73m2 Critically low >=60 [facility] Comment on above: Performed By: #### G FRANKIE, TSH, LIPID, CREA #### [facility] [address] [address] [address] Devon Gillette DIRECT LDLon 12-27-2021 Cholesterol in LDL [Mass/Vol] 133 mg/dL Normal [facility] Comment on above: Performed By: #### G FRANKIE, TSH, LIPID, CREA #### [facility] [address] [address] [address] Devon Gillette DLDL NORMAL SEE BELOW Normal [facility] Comment on above: Result Comment: <100 mg/dl OPTIMAL 100 - 129 mg/dl NEAR OR ABOVE OPTIMAL 130 - 159 mg/dl BORDERLINE HIGH 160 - 189 mg/dl HIGH >190 mg/dl VERY HIGH Performed By: #### G FRANKIE, TSH, LIPID, CREA #### [facility] [address] [address] [address] Devon Gillette GLUCOSE BLOODon 12-27-2021 Glucose [Mass/Vol] 151 mg/dL Critically high 74-106 T [facility] Comment on above: Performed By: #### G FRANKIE, TSH, LIPID, CREA #### [facility] [address] [address] [address] Devon Gillette LIPID PROFILEon 12-27-2021 CHOL-HDL RATIO NORM SEE BELOW Normal [facility] Comment on above: Result Comment: 3.3 - 4.4 LOW RISK 4.4 - 7.1 AVERAGE RISK 7.1 - 11.0 MODERATE RISK >11.0 HIGH RISK Performed By: #### G FRANKIE, TSH, LIPID, CREA #### [facility] [address] [address] [address] Devon Gillette Cholesterol [Mass/Vol] 244 mg/dL Critically high <=200 [facility] Comment on above: Performed By: #### G FRANKIE, TSH, LIPID, CREA #### [facility] [address] [address] [address] Devon Gillette Cholesterol in HDL [Mass/Vol] 33 mg/dL Critically low 40-60 [facility] Comment on above: Performed By: #### G FRANKIE, TSH, LIPID, CREA #### [facility] [address] [address] [address] Devon Gillette Cholesterol.total/Choles terol in HDL [Mass ratio] 7.4 {ratio} Normal [facility] Comment on above: Performed By: #### G FRANKIE, TSH, LIPID, CREA #### [facility] [address] [address] [address] Devon Gillette HDL NORMAL > or = 60 mg/dl - LO W CARDIOVASCULAR RISK <40 mg/dl - HIGH CARDIOVASCULAR RISK Normal [facility] Comment on above: Performed By: #### G FRANKIE, TSH, LIPID, CREA #### [facility] [address] [address] [address] Devon Gillette Triglyceride [Mass/Vol] 431 mg/dL Critically high <=150 [facility] Comment on above: Performed By: #### G FRANKIE, TSH, LIPID, CREA #### [facility] [address] [place] [address] Dr. Devon Gillette Vital Signs Date Time Vital Sign Value Performing Clinician Facility 03-25-2024 14:49-0500 Body height 1950.72 cm Susan Ayala MD Work Phone: [facility] 03-25-2024 14:49-0500 Body mass index (BMI) [Ratio] 0.1 kg/m2 Susan Ayala MD Work Phone: [facility] 03-25-2024 14:49-0500 Body weight 70.76 kg Susan Ayala MD Work Phone: [facility] 03-25-2024 14:49-0500 Diastolic blood pressure 77 mm[Hg] Susan Ayala MD Work Phone: [facility] 03-25-2024 14:49-0500 Heart rate 87 /min Susan Ayala MD Work Phone: [facility] 03-25-2024 14:49-0500 Systolic blood pressure 133 mm[Hg] Susan Ayala MD Work Phone: [facility] 03-22-2024 10:31-0500 Body height 162.56 cm Susan Ayala MD Work Phone: [facility] 03-22-2024 10:31-0500 Body mass index (BMI) [Ratio] 26.7 kg/m2 Susan Ayala MD Work Phone: [facility] 03-22-2024 10:31-0500 Body temperature 97.9 [degF] Susan Ayala MD Work Phone: [facility] 03-22-2024 10:31-0500 Body weight 70.76 kg Susan Ayala MD Work Phone: [facility] 03-22-2024 10:31-0500 Diastolic blood pressure 85 mm[Hg] Susan Ayala MD Work Phone: [facility] 03-22-2024 10:31-0500 Heart rate 91 /min Susan Ayala MD Work Phone: [facility] 03-22-2024 10:31-0500 Respiratory rate 16 /min Susan Ayala MD Work Phone: [facility] 03-22-2024 10:31-0500 SaO2% (BldA) [Mass fraction] 99 % Susan Ayala MD Work Phone: [facility] 03-22-2024 10:31-0500 Systolic blood pressure 129 mm[Hg] Susan Ayala MD Work Phone: [facility] 03-16-2024 09:13-0500 Body height 162.56 cm Susan Ayala MD Work Phone: [facility] 03-16-2024 09:13-0500 Body mass index (BMI) [Ratio] 27.3 kg/m2 Susan Ayala MD Work Phone: [facility] 03-16-2024 09:13-0500 Body temperature 98.5 [degF] Susan Ayala MD Work Phone: [facility] 03-16-2024 09:13-0500 Body weight 72.12 kg Susan Ayala MD Work Phone: [facility] 03-16-2024 09:13-0500 Diastolic blood pressure 77 mm[Hg] Susan Ayala MD Work Phone: [facility] 03-16-2024 09:13-0500 Heart rate 94 /min Susan Ayala MD Work Phone: [facility] 03-16-2024 09:13-0500 Respiratory rate 16 /min Susan Ayala MD Work Phone: [facility] 03-16-2024 09:13-0500 SaO2% (BldA) [Mass fraction] 97 % Susan Ayala MD Work Phone: [facility] 03-16-2024 09:13-0500 Systolic blood pressure 123 mm[Hg] Susan Ayala MD Work Phone: [facility] 03-07-2024 13:23-0400 Body height 162.6 cm Gilson Kenyon DPM Work Phone: [facility] 03-07-2024 13:23-0400 Body mass index (BMI) [Ratio] 28.15 kg/m2 Gilson Kenyon DPM Work Phone: [facility] 03-07-2024 13:23-0400 Body weight 74.39 kg Gilson Kenyon DPM Work Phone: [facility] 03-07-2024 13:23-0400 Heart rate 81 /min Gilsoncarlos Kenyon DPM Work Phone: [facility] 02-20-2024 08:13-0400 Body height 162.56 cm MD Susan Ayala Work Phone: [facility] 02-20-2024 08:13-0400 Body mass index (BMI) [Ratio] 27.1 kg/m2 MD Susan Ayala Work Phone: [facility] 02-20-2024 08:13-0400 Body weight 71.78 kg MD Susan Ayala Work Phone: [facility] 02-20-2024 08:13-0400 Diastolic blood pressure 62 mm[Hg] MD Susan Ayala Work Phone: [facility] 02-20-2024 08:13-0400 Heart rate 89 /min MD Susan Ayala Work Phone: [facility] 02-20-2024 08:13-0400 Respiratory rate 16 /min MD Susan Ayala Work Phone: [facility] 02-20-2024 08:13-0400 SaO2% (BldA) [Mass fraction] 97 % MD Susan Ayala Work Phone: [facility] 02-20-2024 08:13-0400 Systolic blood pressure 126 mm[Hg] MD Susan Ayala Work Phone: [facility] 02-15-2024 13:01-0400 Body height 162.56 cm MD Susan Ayala Work Phone: [facility] 02-15-2024 13:01-0400 Body mass index (BMI) [Ratio] 27.3 kg/m2 MD Susan Ayala Work Phone: [facility] 02-15-2024 13:01-0400 Body temperature 98.2 [degF] MD Susan Ayala Work Phone: [facility] 02-15-2024 13:01-0400 Body weight 72.12 kg MD Susan Ayala Work Phone: [facility] 02-15-2024 13:01-0400 Diastolic blood pressure 78 mm[Hg] MD Susan Ayala Work Phone: [facility] 02-15-2024 13:01-0400 Heart rate 82 /min MD Susan Ayala Work Phone: [facility] 02-15-2024 13:01-0400 Respiratory rate 20 /min MD Susan Ayala Work Phone: [facility] 02-15-2024 13:01-0400 SaO2% (BldA) [Mass fraction] 100 % MD Susan Ayala Work Phone: [facility] 02-15-2024 13:01-0400 Systolic blood pressure 127 mm[Hg] MD Susan Ayala Work Phone: [facility] 01-03-2024 13:56-0400 Body temperature 99.1 [degF] MD Susan Ayala Work Phone: [facility] 01-03-2024 13:56-0400 Body weight 72.12 kg MD Susan Ayala Work Phone: [facility] 01-03-2024 13:56-0400 Diastolic blood pressure 77 mm[Hg] MD Susan Ayala Work Phone: [facility] 01-03-2024 13:56-0400 Heart rate 107 /min MD Susan Ayala Work Phone: [facility] 01-03-2024 13:56-0400 Respiratory rate 16 /min MD Susan Ayala Work Phone: [facility] 01-03-2024 13:56-0400 SaO2% (BldA) [Mass fraction] 98 % MD Susan Ayala Work Phone: [facility] 01-03-2024 13:56-0400 Systolic blood pressure 147 mm[Hg] MD Susan Ayala Work Phone: [facility] 12-21-2023 09:56-0400 Body height 162.56 cm MD Susan Ayala Work Phone: [facility] 12-21-2023 09:56-0400 Body mass index (BMI) [Ratio] 27.1 kg/m2 MD Susan Ayala Work Phone: [facility] 12-21-2023 09:56-0400 Body temperature 97.9 [degF] MD Susan Ayala Work Phone: [facility] 12-21-2023 09:56-0400 Body weight 71.66 kg MD Susan Ayala Work Phone: [facility] 12-21-2023 09:56-0400 Diastolic blood pressure 81 mm[Hg] MD Susan Ayala Work Phone: [facility] 12-21-2023 09:56-0400 Heart rate 95 /min MD Susan Ayala Work Phone: [facility] 12-21-2023 09:56-0400 Respiratory rate 20 /min MD Susan Ayala Work Phone: [facility] 12-21-2023 09:56-0400 SaO2% (BldA) [Mass fraction] 100 % MD Susan Ayala Work Phone: [facility] 12-21-2023 09:56-0400 Systolic blood pressure 136 mm[Hg] MD Susan Ayala Work Phone: [facility] 12-05-2023 09:05-0400 Diastolic blood pressure 82 mm[Hg] MD Susan Ayala Work Phone: [facility] 12-05-2023 09:05-0400 Heart rate 66 /min MD Susan Ayala Work Phone: [facility] 12-05-2023 09:05-0400 Respiratory rate 20 /min MD Susan Ayala Work Phone: [facility] 12-05-2023 09:05-0400 SaO2% (BldA) [Mass fraction] 100 % MD Susan Ayala Work Phone: [facility] 12-05-2023 09:05-0400 Systolic blood pressure 137 mm[Hg] MD Susan Ayala Work Phone: [facility] 11-20-2023 08:09-0400 Body height 162.56 cm MD Susan Ayala Work Phone: [facility] 11-20-2023 08:09-0400 Body weight 74.84 kg MD Susan Ayala Work Phone: [facility] 10-24-2023 12:53-0400 Body height 162.56 cm MD Susan Ayala Work Phone: [facility] 10-24-2023 12:53-0400 Body mass index (BMI) [Ratio] 27.8 kg/m2 MD Susan Ayala Work Phone: [facility] 10-24-2023 12:53-0400 Body temperature 97.9 [degF] MD Susan Ayala Work Phone: [facility] 10-24-2023 12:53-0400 Body weight 73.48 kg MD Susan Ayala Work Phone: [facility] 10-24-2023 12:53-0400 Diastolic blood pressure 83 mm[Hg] MD Susan Ayala Work Phone: [facility] 10-24-2023 12:53-0400 Heart rate 85 /min MD Susan Ayala Work Phone: [facility] 10-24-2023 12:53-0400 Respiratory rate 16 /min MD Susan Ayala Work Phone: [facility] 10-24-2023 12:53-0400 SaO2% (BldA) [Mass fraction] 98 % MD Susan Ayala Work Phone: [facility] 10-24-2023 12:53-0400 Systolic blood pressure 137 mm[Hg] MD Susan Ayala Work Phone: [facility] 10-11-2023 13:21-0400 Body height 162.56 cm MD Susan Ayala Work Phone: [facility] 10-11-2023 13:21-0400 Body mass index (BMI) [Ratio] 28.3 kg/m2 MD Susan Ayala Work Phone: [facility] 10-11-2023 13:21-0400 Body temperature 98 [degF] MD Susan Ayala Work Phone: [facility] 10-11-2023 13:21-0400 Body weight 74.84 kg MD Susan Ayala Work Phone: [facility] 10-11-2023 13:21-0400 Diastolic blood pressure 79 mm[Hg] MD Susan Ayala Work Phone: [facility] 10-11-2023 13:21-0400 Heart rate 102 /min MD Susan Ayala Work Phone: [facility] 10-11-2023 13:21-0400 Respiratory rate 20 /min MD Susan Ayala Work Phone: [facility] 10-11-2023 13:21-0400 SaO2% (BldA) [Mass fraction] 98 % MD Susan Ayala Work Phone: [facility] 10-11-2023 13:21-0400 Systolic blood pressure 133 mm[Hg] MD Susan Ayala Work Phone: [facility] 10-03-2023 13:01-0400 Body height 162.56 cm MD Susan Ayala Work Phone: [facility] 10-03-2023 13:01-0400 Body mass index (BMI) [Ratio] 28.5 kg/m2 MD Susan Ayala Work Phone: [facility] 10-03-2023 13:01-0400 Body weight 75.29 kg MD Susan Ayala Work Phone: [facility] 10-03-2023 13:01-0400 Diastolic blood pressure 73 mm[Hg] MD Suasn Ayala Work Phone: [facility] 10-03-2023 13:01-0400 Heart rate 83 /min MD Susan Ayala Work Phone: [facility] 10-03-2023 13:01-0400 Systolic blood pressure 125 mm[Hg] MD Susan Ayala Work Phone: [facility] 09-21-2023 10:59-0400 Body height 162.56 cm MD Susan Ayala Work Phone: [facility] 09-21-2023 10:59-0400 Body mass index (BMI) [Ratio] 28.1 kg/m2 MD Susan Ayala Work Phone: [facility] 09-21-2023 10:59-0400 Body temperature 98 [degF] MD Susan Ayala Work Phone: [facility] 09-21-2023 10:59-0400 Body weight 74.38 kg MD Susan Ayala Work Phone: [facility] 09-21-2023 10:59-0400 Diastolic blood pressure 80 mm[Hg] MD Susan Ayala Work Phone: [facility] 09-21-2023 10:59-0400 Heart rate 77 /min MD Susan Ayala Work Phone: [facility] 09-21-2023 10:59-0400 Respiratory rate 18 /min MD Susan Ayala Work Phone: [facility] 09-21-2023 10:59-0400 SaO2% (BldA) [Mass fraction] 100 % MD Susan Ayala Work Phone: [facility] 09-21-2023 10:59-0400 Systolic blood pressure 131 mm[Hg] MD Susan Ayala Work Phone: [facility] 08-29-2023 13:44-0400 Diastolic blood pressure 82 mm[Hg] MD Susan Ayala Work Phone: [facility] 08-29-2023 13:44-0400 Heart rate 67 /min MD Susan Ayala Work Phone: [facility] 08-29-2023 13:44-0400 Respiratory rate 16 /min MD Susan Ayala Work Phone: [facility] 08-29-2023 13:44-0400 SaO2% (BldA) [Mass fraction] 98 % MD Susan Ayala Work Phone: [facility] 08-29-2023 13:44-0400 Systolic blood pressure 146 mm[Hg] MD Susan Ayala Work Phone: [facility] 08-29-2023 12:59-0400 Body temperature 97 [degF] MD Susan Ayala Work Phone: [facility] 08-29-2023 12:29-0400 Inhaled oxygen flow rate 8 L/min MD Susan Ayala Work Phone: [facility] 08-29-2023 11:31-0400 Body weight 74.84 kg MD Susan Ayala Work Phone: [facility] 08-29-2023 11:15-0400 Body height 162.56 cm MD Susan Ayala Work Phone: [facility] 08-11-2023 10:40-0400 Body height 162.56 cm MD Susan Ayala Work Phone: [facility] 08-11-2023 10:40-0400 Body mass index (BMI) [Ratio] 28.1 kg/m2 MD Susan Ayala Work Phone: [facility] 08-11-2023 10:40-0400 Body temperature 97.5 [degF] MD Susan Ayala Work Phone: [facility] 08-11-2023 10:40-0400 Body weight 74.44 kg MD Susan Ayala Work Phone: [facility] 08-11-2023 10:40-0400 Diastolic blood pressure 80 mm[Hg] MD Susan Ayala Work Phone: [facility] 08-11-2023 10:40-0400 Heart rate 85 /min MD Susan Ayala Work Phone: [facility] 08-11-2023 10:40-0400 Systolic blood pressure 121 mm[Hg] MD Susan Ayala Work Phone: [facility] 08-01-2023 13:50-0400 Diastolic blood pressure 78 mm[Hg] MD Susan Ayala Work Phone: [facility] 08-01-2023 13:50-0400 Heart rate 72 /min MD Susan Ayala Work Phone: [facility] 08-01-2023 13:50-0400 Respiratory rate 16 /min MD uSsan Ayala Work Phone: [facility] 08-01-2023 13:50-0400 SaO2% (BldA) [Mass fraction] 100 % MD Susan Ayala Work Phone: [facility] 08-01-2023 13:50-0400 Systolic blood pressure 138 mm[Hg] MD Susan Ayala Work Phone: [facility] 08-01-2023 12:58-0400 Body temperature 98.4 [degF] MD Susan Ayala Work Phone: [facility] 08-01-2023 12:33-0400 Inhaled oxygen flow rate 8 L/min MD Susan Ayala Work Phone: [facility] 08-01-2023 [id number] Body height 162.56 cm MD Susan Ayala Work Phone: [facility] 08-01-2023 11:26-0400 Body mass index (BMI) [Ratio] 28.3 kg/m2 MD Susan Ayala Work Phone: [facility] 08-01-2023 11:26-0400 Body weight 74.84 kg MD Susan Ayala Work Phone: [facility] 07-11-2023 14:28-0500 Body height 162.56 cm MD Susan Ayala Work Phone: [facility] 07-11-2023 14:28-0500 Body mass index (BMI) [Ratio] 28.5 kg/m2 MD Susan Ayala Work Phone: [facility] 07-11-2023 14:28-0500 Body weight 75.46 kg MD Susan Ayala Work Phone: [facility] 07-11-2023 14:28-0500 Diastolic blood pressure 75 mm[Hg] MD Susan Ayala Work Phone: [facility] 07-11-2023 14:28-0500 Heart rate 93 /min MD Susan Ayala Work Phone: [facility] 07-11-2023 14:28-0500 Systolic blood pressure 138 mm[Hg] MD Susan Ayala Work Phone: [facility] 05-16-2023 10:00-0500 Body temperature 98.2 [degF] MD Susan Ayala Work Phone: [facility] 05-16-2023 10:00-0500 Diastolic blood pressure 78 mm[Hg] MD Susan Ayala Work Phone: [facility] 05-16-2023 10:00-0500 Heart rate 87 /min MD Susan Ayala Work Phone: [facility] 05-16-2023 10:00-0500 Respiratory rate 18 /min MD Susan Ayala Work Phone: [facility] 05-16-2023 10:00-0500 SaO2% (BldA) [Mass fraction] 99 % MD Susan Ayala Work Phone: [facility] 05-16-2023 10:00-0500 Systolic blood pressure 136 mm[Hg] MD Susan Ayala Work Phone: [facility] 05-02-2023 16:16-0500 Body height 162.56 cm MD Suasn Ayala Work Phone: [facility] 05-02-2023 16:16-0500 Body weight 75.7 kg MD Susan Ayala Work Phone: [facility] 03-27-2023 14:00-0500 Body height 162.56 cm Susan Ayala Other [facility] [employer] Other 03-27-2023 14:00-0500 Body mass index (BMI) [Ratio] 28.49 kg/m2 Susan Ayala Other [facility] [employer] Other 03-27-2023 14:00-0500 Body weight 75.3 kg Susan Ayala Other [facility] Other 03-27-2023 14:00-0500 Diastolic blood pressure 84 mm[Hg] Susan Ayala Other [facility] Other 03-27-2023 14:00-0500 Systolic blood pressure 136 mm[Hg] Susan Ayala Other [employer] Other 02-06-2023 10:30-0400 Body height 162.56 cm Susan Ayala Other [employer] Other 02-06-2023 10:30-0400 Body mass index (BMI) [Ratio] 29.01 kg/m2 Susan Ayala Other [employer] Other 02-06-2023 10:30-0400 Body weight 76.66 kg Susan Ayala Other [employer] Other 02-06-2023 10:30-0400 Diastolic blood pressure 84 mm[Hg] Susan Ayala Other [facility] Other 02-06-2023 10:30-0400 Systolic blood pressure 144 mm[Hg] Susan Ayala Other [employer] Other 12-28-2022 09:30-0400 Body height 162.56 cm Susan Ayala Other [employer] Other 12-28-2022 09:30-0400 Body mass index (BMI) [Ratio] 28.15 kg/m2 Susan Ayala Other [facility] Other 12-28-2022 09:30-0400 Body weight 74.39 kg Susan Ayala Other [facility] Other 12-28-2022 09:30-0400 Diastolic blood pressure 78 mm[Hg] Susan Ayala Other [employer] Other 12-28-2022 09:30-0400 SaO2% (BldA) [Mass fraction] 96 % Susan Ayala Other [employer] Other 12-28-2022 09:30-0400 Systolic blood pressure 128 mm[Hg] Susan Ayala Other [employer] Other 09-13-2022 15:00-0400 Body height 162.56 cm Susan Ayala Other [employer] Other 09-13-2022 15:00-0400 Body mass index (BMI) [Ratio] 28.32 kg/m2 Susan Ayala Other [facility] Other 09-13-2022 15:00-0400 Body weight 74.84 kg Susan Ayala Other [facility] Other 09-13-2022 15:00-0400 Diastolic blood pressure 74 mm[Hg] Susan Ayala Other [facility] Other 09-13-2022 15:00-0400 SaO2% (BldA) [Mass fraction] 98 % Susan Ayala Other [facility] Other 09-13-2022 15:00-0400 Systolic blood pressure 142 mm[Hg] Susan Ayala Other [facility] Other 07-06-2022 10:00-0500 Body height 162.56 cm Susan Ayala Other [facility] Other 07-06-2022 10:00-0500 Body mass index (BMI) [Ratio] 28.66 kg/m2 Susan Ayala Other [facility] Other 07-06-2022 10:00-0500 Body weight 75.75 kg Susan Ayala Other [facility] Other 07-06-2022 10:00-0500 Diastolic blood pressure 62 mm[Hg] Susan Ayala Other [facility] Other 07-06-2022 10:00-0500 SaO2% (BldA) [Mass fraction] 98 % Susan Ayala Other [facility] Other 07-06-2022 10:00-0500 Systolic blood pressure 110 mm[Hg] Susan Ayala Other [facility] Other 06-14-2022 11:00-0500 Body height 162.56 cm Susan Ayala Other [facility] Other 06-14-2022 11:00-0500 Body mass index (BMI) [Ratio] 29.01 kg/m2 Susan Ayala Other [facility] Other 06-14-2022 11:00-0500 Body weight 76.66 kg Susan Ayala Other [facility] Other 06-14-2022 11:00-0500 Diastolic blood pressure 76 mm[Hg] Susan Ayala Other [facility] Other 06-14-2022 11:00-0500 SaO2% (BldA) [Mass fraction] 98 % Susan Ayala Other [facility] Other 06-14-2022 11:00-0500 Systolic blood pressure 138 mm[Hg] Susan Ayala Other [employer] Other Encounters Encounter Date Encounter Type Care Provider Facility Start: 03-25-2024 End: 03-25-2024 ambulatory Susan Ayala MD Work Phone: [facility] Work Phone: Start: 03-25-2024 End: 03-25-2024 Patient encounter procedure Susan Ayala MD Work Phone: [facility] Work Phone: Start: 03-22-2024 Registered Recurring Susan bailon MD Work Phone: [facility] Work Phone: Start: 03-22-2024 End: 03-22-2024 ambulatory Susan Ayala MD Work Phone: [facility] Work Phone: Start: 03-22-2024 End: 03-22-2024 Patient encounter procedure Susan Ayala MD Work Phone: [facility] Work Phone: Start: 03-16-2024 End: 03-16-2024 ambulatory Susan Ayala MD Work Phone: [facility] Work Phone: Start: 03-16-2024 End: 03-16-2024 Patient encounter procedure Susan Ayala MD Work Phone: [facility] Work Phone: Start: 03-07-2024 End: 03-07-2024 Bamboo flowsheet Gilson Kenyon DPM Work Phone: [facility] Start: 03-07-2024 End: 03-07-2024 Bamboo flowsheet Gilson Kenyon DPM Work Phone: [facility] Start: 03-07-2024 End: 03-07-2024 Patient encounter procedure Gilson Kenyon DPM Work Phone: [facility] Comment on above: 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 (Primary Dx) Start: 03-07-2024 End: 03-07-2024 ambulatory GILSON KENYON Not Available Start: 02-27-[address] Facility:[facility] Start: 02-27-2024 Registered Recurring Susan bailon MD Work Phone: [facility] Start: 02-20-2024 End: 02-20-2024 ambulatory MD Susan Ayala Work Phone: [facility] Work Phone: Start: 02-20-2024 End: 02-20-2024 Patient encounter procedure MD Susan Ayala Work Phone: [facility] Work Phone: Start: 02-15-2024 Registered Recurring MD Susan Ayala Work Phone: [facility] Work Phone: Start: 02-15-2024 End: 02-15-2024 ambulatory MD Susan Ayala Work Phone: [facility] Work Phone: Start: 02-15-2024 End: 02-15-2024 Patient encounter procedure MD Susan Ayala Work Phone: [facility] Work Phone: Start: 02-08-2024 Non-patient / Non-visit MD Susan Ayala Work Phone: [facility] Work Phone: Start: 01-23-2024 Registered Recurring MD Susan Ayala Work Phone: [facility] Start: 01-03-2024 End: 01-03-2024 ambulatory MD Susan Ayala Work Phone: [facility] Work Phone: Start: 01-03-2024 End: 01-03-2024 Patient encounter procedure MD Susan Ayala Work Phone: [facility] Work Phone: Start: 01-03-2024 Registered Recurring MD Susan Ayala Work Phone: [facility] Work Phone: Start: 12-28-2023 End: 12-28-2023 ambulatory GILSON KENYON Not Available Start: 12-22-2023 Non-patient / Non-visit MD Susan Ayala Work Phone: [facility] Work Phone: Start: 12-21-2023 End: 12-21-2023 ambulatory MD Susan Ayala Work Phone: [facility] Work Phone: Start: 12-21-2023 End: 12-21-2023 Patient encounter procedure MD Susan Ayala Work Phone: [facility] Work Phone: Start: 12-21-2023 Registered Recurring MD [facility] [place] [facility] Work [facility] Start: 12-11-2023 Registered Recurring MD Susan Ayala Work Phone: [facility] Start: 12-06-2023 Non-patient / Non-visit MD Susan Ayala Work Phone: [facility] Work Phone: Start: 12-05-2023 Non-patient / Non-visit MD Susan Ayala Work Phone: [facility] Work Phone: Start: 12-05-2023 End: 12-05-2023 Admission to same day surgery center MD Susan Ayala Work Phone: [facility] Work Phone: Start: 12-05-2023 End: 12-05-2023 ambulatory MD Susan Ayala Work Phone: [facility] Work Phone: Start: 12-04-2023 Registered Recurring MD Susan Ayala Work Phone: [facility] Work Phone: Start: 11-29-2023 Non-patient / Non-visit MD Susan Ayala Work Phone: [facility] Work Phone: Start: 11-27-2023 Non-patient / Non-visit MD Susan Ayala Work Phone: [facility] Work Phone: Start: 11-22-2023 Non-patient / Non-visit MD Susan Ayala Work Phone: [facility] Work Phone: Start: 11-20-2023 Non-patient / Non-visit MD Susan Ayala Work Phone: [facility] Work Phone: Start: 11-15-2023 Non-patient / Non-visit MD Susan Ayala Work Phone: [facility] Work Phone: Start: 11-13-2023 Non-patient / Non-visit MD Susan Ayala Work Phone: [facility] Work Phone: Start: 11-08-2023 Non-patient / Non-visit MD Susan Ayala Work Phone: [facility] Work Phone: Start: 11-02-2023 Non-patient / Non-visit MD Susan Ayala Work Phone: [facility] Work Phone: Start: 10-31-2023 Registered Recurring MD Susan Ayala Work Phone: [facility] Start: 10-25-2023 End: 10-25-2023 ambulatory GERALDO GARCÍA Not Available Start: 10-24-2023 End: 10-24-2023 Patient encounter procedure MD Susan Ayala Work Phone: [facility] Work Phone: Start: 10-19-2023 End: 10-19-2023 ambulatory GILSON KENYON Not Available Start: 10-11-2023 End: 10-11-2023 ambulatory MD Susan Ayala Work Phone: [facility] Work Phone: Start: 10-11-2023 End: 10-11-2023 Patient encounter procedure MD Susan Ayala Work Phone: [facility] Work Phone: Start: 10-11-2023 Registered Recurring MD Susan Ayala Work Phone: [facility] Work Phone: Start: 10-03-2023 End: 10-03-2023 ambulatory MD Susan Ayala Work Phone: [facility] Work Phone: Start: 10-03-2023 End: 10-03-2023 Patient encounter procedure MD Susan Ayala Work Phone: [facility] Work Phone: Start: 09-26-2023 Non-patient / Non-visit MD Susan Ayala Work Phone: [facility] Work Phone: Start: 09-21-2023 End: 09-21-2023 Patient encounter procedure MD Susan Ayala Work Phone: [facility] Work Phone: Start: 09-21-2023 Registered Recurring MD Susan Ayala Work Phone: [facility] Work Phone: Start: 09-20-2023 End: 09-20-2023 ambulatory GERALDO H ITZKOWITZ Not Available Start: 09-19-2023 Registered Recurring MD Susan Ayala Work Phone: [facility] Start: 09-06-2023 End: 09-06-2023 ambulatory GERALDO H ITZKOWITZ Not Available Start: 08-29-2023 End: 08-29-2023 Admission to same day surgery center MD Susan Ayala Work Phone: [facility] [place] [facility] [place] Start: 08-29-2023 End: 08-29-2023 ambulatory MD Susan Ayala Work Phone: [facility] Work Phone: Start: 08-16-2023 End: 08-16-2023 ambulatory GERALDO H ITZKOWITZ Not Available Start: 08-11-2023 End: 08-11-2023 ambulatory MD Susan Ayala Work Phone: [facility] Work Phone: Start: 08-11-2023 End: 08-11-2023 Patient encounter procedure MD Susan Ayala Work Phone: [facility] Work Phone: Start: 08-10-2023 End: 08-10-2023 ambulatory GILSON KENYON Not Available Start: 08-09-2023 End: 08-09-2023 ambulatory GERALDO H ITZKOWITZ Not Available Start: 08-01-2023 End: 08-01-2023 Admission to same day surgery center MD Susan Ayala Work Phone: [facility] [place] Start: 08-01-2023 End: 08-01-2023 ambulatory MD Susan Ayala Work Phone: [facility] Work Phone: Start: 07-24-2023 Non-patient / Non-visit MD Susan Ayala Work Phone: [facility] Work Phone: Start: 07-24-2023 End: 07-24-2023 ambulatory CHEL JOSEPH Not Available Start: 07-19-2023 End: 07-19-2023 Patient encounter procedure MD Susan Ayala Work Phone: [facility] Work Phone: Start: 07-19-2023 End: 07-19-2023 ambulatory MD Susan Ayala Work Phone: [facility] Work Phone: Start: 07-12-2023 End: 07-12-2023 Admission to same day surgery center MD Susan Ayala Work Phone: [facility] Start: 07-12-2023 End: 07-12-2023 ambulatory GERALDO H RAQUEL Not Available Start: 07-11-2023 End: 07-11-2023 Patient encounter procedure MD Susan Ayala Work Phone[facility] Work Phone: Start: 07-04-2023 Registered Recurring MD Susan Ayala Work Phone: [facility] Start: 06-29-2023 End: 07-02-2023 ambulatory ADAMA ITZDEIRDRETZ [facility] Start: 06-01-2023 End: 06-01-2023 ambulatory GILSONJen KENYON Not Available Start: 05-30-2023 Registered Recurring MD Susan Ayala Work Phone: [facility] Start: 05-16-2023 End: 05-16-2023 Admission to same day surgery center MD Susan Ayala Work Phone: [facility] Work Phone: Start: 05-16-2023 End: 05-16-2023 ambulatory MD Susan Ayala Work Phone: [facility] Work Phone: Start: 05-02-2023 End: 05-02-2023 Patient encounter procedure MD Susan Ayala Work Phone: [facility] Work Phone: Start: 05-02-2023 End: 05-02-2023 ambulatory Geraldo Itzkowitz Facility:[facility] Start: 04-28-2023 End: 04-28-2023 ambulatory GERALDO H ITZKOWITZ Not Available Start: 04-10-2023 End: 04-10-2023 ambulatory Susan Ayala Other [facility] Other Start: 04-10-2023 Telephone encounter Susan Ayala [facility] Start: 04-05-2023 End: 04-05-2023 ambulatory GERALDO H ITZKOWITZ Not Available Start: 03-27-2023 End: 03-27-2023 ambulatory Susan Ayala Other [facility] Other Start: 03-27-2023 Patient encounter procedure Susan Ayala [facility] Start: 03-27-2023 Telephone encounter Susan Ayala [facility] Start: 03-21-2023 End: 03-21-2023 ambulatory Susan Ayala Other [facility] Other Start: 03-21-2023 Telephone encounter Susan Ayala [facility] Start: 03-10-2023 (Televisit) Televisit Susan Mena [facility] Start: 03-10-2023 End: 03-10-2023 ambulatory Susan Ayala Other [facility] Other Start: 03-06-2023 End: 03-06-2023 ambulatory Susan Ayala Other [facility] Other Start: 03-06-2023 Telephone encounter Susan Ayala [facility] Start: 02-06-2023 End: 02-06-2023 ambulatory Susan Ayala Other [facility] Other Start: 02-06-2023 Office outpatient visit 15 minutes Susan Ayala [facility] Start: 02-06-2023 Telephone encounter Susan Ayala [facility] Start: 12-28-2022 End: 12-28-2022 ambulatory Susan Ayala Other [facility] Other Start: 12-28-2022 Office outpatient visit 15 minutes Susan Ayala [facility] Start: 09-13-2022 End: 09-13-2022 ambulatory Susan Ayala Other [facility] Other Start: 09-13-2022 Office outpatient visit 15 minutes Susan Ayala [facility] Start: 08-26-2022 End: 08-27-[address] LITTLE STAFFORD . Facility:[facility] Start: 08-01-2022 End: 08-02-[address] LITTLE STAFFORD . Facility:[facility] Start: 07-18-2022 End: 07-18-[address] LITTLE STAFFORD . Facility:[facility] Start: 07-12-2022 End: 07-12-2022 ambulatory Susan Ayala Other [facility] Other Start: 07-12-2022 Telephone encounter Susan Ayala [facility] Start: 07-06-2022 End: 07-06-2022 ambulatory Susan Ayala Other [facility] Other Start: 07-06-2022 Office outpatient visit 15 minutes Susan Ayala [facility] Start: 06-21-2022 End: 06-21-2022 ambulatory Susan Ayala Other [facility] Other Start: 06-21-2022 Telephone [facility] [facility] Start: 06-14-2022 Office outpatient visit 15 minutes Susan Ayala [facility] Start: 06-14-2022 End: 06-14-2022 ambulatory MD Susan Ayala Work Phone: [facility] Work Phone: Start: 06-14-2022 End: 06-14-2022 Departed Referred MD Susan Ayala Work Phone: [facility] [place] Work Phone: Start: 04-25-2022 Adult health examination Susan Ayala Other [facility] Other Start: 04-25-2022 Gynecological examination normal Susan Ayala Other [facility] Other Start: 04-21-2022 End: 04-21-[address] SUSAN AYALA Facility:[facility] Start: 04-14-2022 End: 04-15-2022 ambulatory ANIA BLANCA Facility:[facility] Start: 03-28-2022 End: 03-28-[address] SUSAN AYALA Facility:[facility] Start: 12-27-2021 End: 12-28-2021 ambulatory ANIA BLANCA Facility:[facility] Procedures Date Procedure Procedure Detail Performing Clinician Start: 03-16-2024 Quick Strep (POC) Radha Ayala MD Work Phone: Start: 12-05-2023 Screening colonoscopy M Harshal Ayala Work Phone: Start: 08-29-2023 Lumpectomy of left breast MD Susan Ayala Work Phone: Start: 08-01-2023 Lumpectomy of left breast MD Susan Ayala Work Phone: Start: 08-01-2023 Radionuclide sentine l lymph node study MD Susan Ayala Work Phone: Start: 08-01-2023 Mammography Gilson vargas DPM Work Phone: Start: 08-01-2023 Mammography of left [...] of limb MD Susan Ayala Work Phone: Start: 07-18-2022 Microscopic observat ion [Identifier] in Cervix by Cyto stain Gilson Kenyon DPM Work Phone: End: 06-28-2019 Viral screening Susan Ayala Other Plan of Treatment Date Care Activity Detail Author Start: 07-19-2027 Screening for malign ant neoplasm of cervix [facility] Start: 07-31-2024 Screening for malign ant neoplasm of breast Mammogram [facility] Start: 05-16-2024 End: 05-16-2024 Patient encounter procedure 05/16/2024 1:50 PM EST Procedure Visit [facility] [address] [facility] [[email or web address] [address] [place] [address] Gilson Kenyon DPM [address] [address] [facility] Start: 03-07-2024 End: 03-07-2024 Patient encounter procedure 03/07/2024 1:30 PM EDT Procedure Visit [facility] [address] [place] [address] [place] [address] Gilson Kenyon DPM [address] [address] Pain due to onychomycosis of toenails of both feet (Primary Dx) [facility] Comment on above: 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 (Primary Dx) Start: 01-07-2024 Influenza vaccination Influenza Vacc ine (#1) [facility] Start: 12-05-2023 [facility] Start: 10-11-2023 Patient referral [facility] Work Phone: Start: 10-09-2023 Patient referral [facility] Work Phone: Start: 08-29-2023 [facility] Start: 08-29-2023 End: 08-29-2023 [facility] Start: 08-01-2023 [facility] Start: 08-01-2023 [facility] Start: 05-16-2023 Lumpectomy of left breast OR Breast Bx, Lumpectomy, Mass Excision (Left) [facility] Start: 06-14-2022 [facility] Start: 1965 Screening for malign ant neoplasm of colon [facility] Atopobium vaginae DN A [Presence] in Vaginal fluid by HIMANSHU with probe detection [facility] Bacterial vaginosis associated bacterium 2 DNA [Presence] in Vaginal fluid by HIMANSHU with probe detection [facility] Basophils [#/volume] in Blood by Automated count [facility] Basophils/100 leukocytes in Blood by Automated count [facility] Comprehensive metabo lic 1999 panel - Serum or Plasma [facility] Comprehensive metabo lic 1999 panel - Serum or Plasma [facility] Eosinophils/100 leukocytes in Blood by Automated count [facility] Erythrocyte distribution width [Ratio] by Automated count [facility] Erythrocytes [#/volu me] in Blood [facility] Hematocrit [Volume Fraction] of Blood [facility] Hemoglobin [Mass/volume] in Blood [facility] Hepatic function panel [facility] Leukocytes [#/volume ] corrected for nucleated erythrocytes in Blood by Automated coun [facility] Leukocytes [#/volume ] in Blood [facility] Lymphocytes [#/volum e] in Blood by Automated count [facility] Lymphocytes/100 leukocytes in Blood by Automated count [facility] MCH [Entitic mass] b y Automated count [facility] MCHC [Mass/volume] b y Automated count [facility] MCV [Entitic volume] by Automated count [facility] Megasphaera sp type 1 DNA [Presence] in Vaginal fluid by HIMANSHU with probe detection [facility] MG Breast - left Diagnostic [facility] Monocytes [#/volume] in Blood by Automated count [facility] Monocytes/100 leukocytes in Blood by Automated count [facility] Neutrophils [#/volum e] in Blood by Automated count [facility] Neutrophils/100 leukocytes in Blood by Automated count [facility] Nucleated erythrocyt es [Presence] in Blood by Automated count [facility] Patient Education Colon polyps H emorrhoids (DC) Diverticulosis (DC) Know your Meds [facility] Work Phone: Patient referral [facility] Work Phone: Platelet mean volume [Entitic volume] in Blood by Automated count [facility] Platelets [#/volume] in Blood [facility] XR Humerus - right Views [facility] Immunizations Immunization Date Immunization Notes Care Provider Fa cili 02-21-2024 influenza virus vaccine, unspecified formulation Gilson Kenyon DPM Work Phone: [facility] 02-28-2022 COVID-19 mRNA Bivale nt Booster (Pfizer) MD Susan Ayala Work Phone: [facility] 04-20-2021 COVID-19 mRNA, Comirnaty (Pfizer) MD Susan Ayala Work Phone: [facility] 08-27-2020 COVID-19 mRNA, Comirnaty (Pfizer) MD Susan Ayala Work Phone: [facility] 08-07-2020 COVID-19 mRNA, Comirnaty (Pfizer) MD Susan Ayala Work Phone: [facility] Payers Date Payer Category Payer Self-pay [id number] 2019 Medicare (Managed Care) [employer] M EDICARE ADVANTAGE [id number] 2017 [facility] [id number] 1964 Unknown [id number] 2.16.840.1.520058.3.579.2. 593 1964 Unknown [id number] 2.16.840.1.806854.3.579.2. 593 1964 Unknown [id number] 2.16.840.1.611597.3.579.2. 593 1964 Unknown [id number] 2.16.840.1.935539.3.579.2. 593 1964 Unknown [id number] 2.16.840.1.859604.3.579.2. 593 1964 Unknown [id number] 2.16.840.1.632131.3.579.2. 593 1964 Unknown [id number] 2.16.840.1.565449.3.579.2. 593 1964 Unknown [id number] 2.16.840.1.881466.3.579.2. 177 1964 Unknown [id number] 2.16.840.1.064469.3.579.2. 1259 1964 Unknown [id number] 2.16.840.1.227766.3.579.2. 1259 1964 Unknown [id number] 2.16.840.1.348350.3.579.2. 1258 1964 Unknown [id number] 2.16.840.1.119374.3.579.2. 1258 1964 Unknown [id number] 2.16.840.1.551729.3.579.2. 1258 1964 Unknown [id number] 2.16.840.1.006208.3.579.2. 1258 1964 Unknown [id number] 2.16.840.1.281281.3.579.2. 1258 1964 Unknown [id number] 2.16.840.1.833815.3.579.2. 1258 1964 Unknown [id number] 2.16.840.1.490297.3.579.2. 1258 1964 Unknown [id number] 2.16.840.1.277492.3.579.2. 1258 1964 Unknown [id number] 2.16.840.1.590716.3.579.2. 1258 1964 Unknown [id number] 2.16.840.1.049207.3.579.2. 1258 1964 Unknown [id number] 2.16.840.1.246723.3.579.2. 1258 1964 Unknown [id number] 2.16.840.1.013047.3.579.2. 1258 1960 Medicaid [id number] 1960 Medicare [id number] 2.16.840.1.441730.19 Medicare [id number] Unknown [id number] 2.16.840.1.520545.3.579.2. 531 Unknown [id number] 2.16.840.1.676058.3.579.2. 531 Unknown [id number] 2.16.840.1.170687.3.579.2. 531 Unknown [id number] 2.16.840.1.728005.3.579.2. 531 Unknown [id number] 2.16.840.1.878645.3.579.2. 531 Unknown [id number] 2.16.840.1.538188.3.579.2. 531 Unknown [id number] 2.16.840.1.721559.3.579.2. 531 Unknown [id number] 2.16.840.1.815207.3.579.2. 531 Unknown [id number] 2.16.840.1.566694.3.579.2. 531 Social History Date Type Detail Facility Tobacco smoking stat [facility] Unknown if ever smoked [facility] Work Phone: Start: 1965 Sex Assigned At Female F [facility] Start: 12-28-2023 End: 03-07-2024 Sex Assigned At [facility] [employer] Other Start: 05-02-2023 End: 03-16-2024 Tobacco smoking status [facility] Ex-smoker (finding) [facility] End: 05-08-2016 History of tobacco use Current smoker [facility] End: 05-08-2016 History of tobacco use Cigarette Smoker [facility] Start: 12-28-2023 End: 03-07-2024 Alcoholic beverage intake Ex-drinker (finding) [facility] Start: 12-28-2023 End: 03-07-2024 History of Social function [facility] Start: 1965 Sex assigned at Not on file N [facility] Start: 03-16-2024 End: 03-25-2024 Sex Female (finding) [facility] Medical Equipment Procedure Code Equipment Code Equipment Origin al Text Equipment Identifier Dates Biopsy, breast, with lumpectomy Imaging lesion localization marker, implantable [id number] FDA Start: 08-01-2023 Goals Date Patient Goal Desired Activity /State Clinical Notes 06-14-2022 to 03-07-2024 Gilson Kenyon DPM - 03/07/2024 1:30 PM EDT Note Date & Type Note Facility 03-07-2024 History of Presen t illness Narrative Patient: Melony Manley : 1965 PCP: Susan Ayala MD SUBJECTIVE This is a 59 y.o. female that presents today with a CC of elongated, thick nails. Pt states nails have been elongated and thick for many years and cause pain with ambulation in shoegear. Pt has tried previous treatment with minimal relief. Pt presents today for nail care and treatment. 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 Take before meals., Disp: , Rfl: lithium ER (Eskalith) 450 MG 12 hr tablet, Take 450 mg by mouth at bedtime., Disp: , Rfl: OLANZapine (ZyPREXA) 5 MG tablet, TAKE 1 TABLET BY MOUTH AT BEDTIME CHANGE IN DOSAGE, Disp: , Rfl: omeprazole (PriLOSEC) [address] capsule, Take 40 mg by mouth in the morning. Take before meals., Disp: , Rfl: QUEtiapine (SEROquel) 200 MG tablet, Take 200 mg by mouth at bedtime., Disp: , Rfl: rosuvastatin (Crestor) 20 MG tablet, Take 20 mg by mouth in the morning., Disp: , Rfl: traZODone (Desyrel) 50 MG tablet, TAKE 1/2 TABLET BY MOUTH AT NIGHT FOR SLEEP, Disp: , Rfl: Social History: Social History Socioeconomic History Marital status: Never Spouse name: Not on file Number of children: Not on file Years of education: Not on file Highest education level: Not on file Occupational History Not on file Tobacco Use Smoking status: Former Current packs/day: 0.00 Types: Cigarettes Quit date: 2016 Years since quittin.8 Smokeless tobacco: Not on file Substance and Sexual Activity Alcohol use: Not Currently Drug use: Never Sexual activity: Defer Other Topics Concern Not on file Social History Narrative Not on file Social Drivers of Health Financial Resource Strain: Not on file Food Insecurity: Not on file Transportation Needs: Not on file Physical Activity: Not on file Stress: Not on file Social Connections: Not on file Intimate Partner Violence: Not on file Housing Stability: Not on file ROS: General: denies fever, chills, fatigue, malaise OBJECTIVE LE EXAM: DERM: Elongated thick yellow crumbly nails digits 1 through 10. Positive hair growth b/l feet. diminished Dry and scaly skin noted to bilateral feet and heel regions VASC: Positive palpable pedal pulses bilaterally NEURO: Gross sensation intact to bilateral feet ORTHO: Positive pain on palpation to nails 1 through 10 ASSESSMENT 1. Pain due to onychomycosis of toenails of both feet PLAN Discussed proper foot care with patient today. Debride nails in length and thickness digits 1 through 10 Patient education on condition and treatment of condition. Continue with [id number] creams to feet p.r.n. Gilson Kenyon DPM documented in this encounter [facility] 01-03-2024 Evaluation note Diagnosis Onset Date Resolution Invasive ductal carcinoma of left breast acute January 03, 2024 1:43pm Invasive ductal carcinoma of left breast acute February 15, 2024 12:46pm Osteopenia acute February 15, 2024 12:46pm Right arm pain acute February 192023 10:22am Type 2 diabetes mellitus with hyperglycemia acute February 20, 2024 10:22am Right acute otitis media acute March 16, 2024 9:09am Generalized body aches noneactive No vember 2023 9:09am Sore throat noneactive March 16, 2024 9:09am [facility] Work Phone: 1(406) 524-317408-28-2024 Evaluation note* Diagnosis Onset Date Resolution Status Admit Date Invasive ductal carcinoma of left breast acute January 02 1:43pm Invasive ductal carcinoma of left breast acute February 14 12:46pm Osteopenia acute February 15, 2024 12:46pm Right arm pain acute February 192023 10:22am Type 2 diabetes mellitus wit h hyperglycemia acute February 19 10:22am Right acute otitis media acute March 16, 2024 9:09am Generalized body aches noneactive No vember 2023 9:09am Sore throat noneactive March 16, 2024 9:09am Invasive ductal carcinoma of left breast acute March 22, 024 10:25am Osteopenia acute March 22, 2024 10:25am [facility] Work Phone: 1(202) 952-194508-28-2024 Evaluation note* Diagnosis Onset Date Resolution Status Admit Date Invasive ductal carcinoma of left breast acute January 02 1:43pm Invasive ductal carcinoma of left breast acute February 14 12:46pm Osteopenia acute February 15, 2024 12:46pm Right arm pain acute February 192023 10:22am Type 2 diabetes mellitus wit h hyperglycemia acute February 19 10:22am Right acute otitis media acute March 16, 2024 9:09am Generalized body aches noneactive No vember 2023 9:09am Sore throat noneactive March 16, 2024 9:09am Breast pain, left acute Novembe r 2023 10:25am Invasive ductal carcinoma of left breast acute March 22, 2 024 10:25am Osteopenia acute March 22, 2024 10:25am [facility] Work Phone: 1(437) 463-927208-15-2024 Chief complaint+Reason for visit Narrative * Chief Complaint referral to gastro Follow Up New Patient, Left Breast Cancer breast cancer breast cancer Left breast cancer Left breast cancer Left breast cancer Screening Screening Amb Documentation BH Left breast cancer f/u moved up from 01/02 per 12/13 triage Reason for Visit Screening for colon cancer Type 2 diabetes mellitus with hyperglycemia Invasive ductal carcinoma of left breast Osteopenia Invasive ductal carcinoma of left breast Invasive ductal carcinoma of left breast Osteopenia [facility] Work Phone: 1(206) 976-884807-30-2024 [facility]* Encounter Date Diagnosis Assessment Notes Treatment Notes Treatment Clinical Notes Mar, Invasive ductal carcinoma of left breast (ICD-10 - C50.912) Reviewed results. Grade 1. D/w daughter on speaker - phone. Appt made w Dr. García on 04/05 at 2pm. Path report and mamm reports sent to their office. [facility] Other 11-14-2023 Evaluation note* Encounter Date Diagnosis Assessment Notes Treatment Notes Treatment Clinical Notes Mar, Elevated triglycerides with high cholesterol (ICD-10 - E78.2) [facility] 11-03-2023 Evaluation note* Encounter Date Diagnosis [...] verbalized understanding and agreement with treatment plan. [facility] Other 10-02-2023 Evaluation note* Encounter Date Diagnosis Assessment Notes Treatment Notes Treatment Clinical Notes Feb, Abnormal mammogram of left breast (ICD-10 - R92.8) [facility] 10-02-2023 Evaluation note* Encounter Date Diagnosis Assessment Notes Treatment Notes Treatment Clinical Notes Feb, Elevated triglycerides with high cholesterol (ICD-10 - E78.2) Called pharmacy. They do not carry the med she is interested in the [place]. Changed rx and sent to [facility]. [facility] Other 08-23-2023 Evaluation note* Encounter Date Diagnosis Assessment Notes Treatment Notes Treatment Clinical Notes Dec, Elevated fasting glucose (ICD-10 - R73.01) Pt states Dr. Blanca is helping her wean the zyprexa. Will recheck labs listed below and return for OV in Apr. Dec, Hypothyroidism (ICD-10 - E03.9) Labs reviewed and normal. Continue present medication [facility] Other 05-09-2023 Evaluation note* Encounter Date Diagnosis Assessment Notes Treatment Notes Treatment Clinical Notes September, Skin candidiasis (ICD-10 - B37.2) Very mild erythema and discoloration. Recommend OTC Gold Valadez Powder. Call if not improving. [facility] Other 03-01-2023 Evaluation note* Encounter Date Diagnosis [...] w him from our last office visit. [facility] Other 02-07-2023 Evaluation note* Encounter Date Diagnosis Assessment Notes Treatment Notes Treatment Clinical Notes Jun, Acute vaginitis (ICD-10 - N76.0) New problem - sent culture for yeast/BV/trich. will call in 1-2 days when results are back. [facility] Other Chief complaint+Reason for visit Narrative* Chief [...] Osteopenia Invasive ductal carcinoma of left breast [facility] Work Phone: Evaluation noteNo assessment information available [facility] Work Phone: Evaluation noteNo [employer] Other Evaluation note* Diagnosis Onset Date Resolution Status Hematoma of breast following procedure acute [facility] Work Phone: Evaluation note* Diagnosis Onset Date Resolution Status Hematoma of breast following procedure acute Allergic rhinitis acute GERD (gastroesophageal reflux disease) acute Hyperlipidemia acute [facility] Work Phone: Evaluation note* Diagnosis Onset Date Resolution Status Hematoma of breast following procedure acute Allergic rhinitis acute GERD (gastroesophageal reflux disease) acute Hyperlipidemia acute Invasive ductal carcinoma of left breast acute Osteopenia acute [facility] Work Phone: Evaluation note* Diagnosis Onset Date Resolution Status Allergic rhinitis acute GERD (gastroesophageal reflux disease) acute Hyperlipidemia acute Invasive ductal carcinoma of left breast acute Osteopenia acute Screening for colon cancer a cute Type 2 diabetes mellitus with hyperglycemia acute Invasive ductal carcinoma of left breast acute Osteopenia acute [facility] Work Phone: Evaluation note* Diagnosis Onset Date Resolution Status Invasive ductal carcinoma of left breast acute Osteopenia acute Screening for colon cancer a cute Type 2 diabetes mellitus with hyperglycemia acute Invasive ductal carcinoma of left breast acute Osteopenia acute Invasive ductal carcinoma of left breast acute [facility] Work Phone: evaluation note* Diagnosis Onset Date Resolution Status Screening for colon cancer a cute Type 2 diabetes mellitus with hyperglycemia acute Invasive ductal carcinoma of left breast acute Osteopenia acute Invasive ductal carcinoma of left breast acute Invasive ductal carcinoma of left breast acute Osteopenia acute [facility] Work Phone: evaluation note* Diagnosis Onset Date Resolution Status Invasive ductal carcinoma of left breast acute Osteopenia acute Invasive ductal carcinoma of left breast acute Invasive ductal carcinoma of left breast acute Osteopenia acute Invasive ductal carcinoma of left breast acute [facility] Work Phone: Evaluation note* Diagnosis Onset Date Resolution Status Invasive ductal carcinoma of left breast acute Osteopenia acute Invasive ductal carcinoma of left breast acute Invasive ductal carcinoma of left breast acute Osteopenia acute [facility] Work Phone: Evaluation note* Diagnosis Onset Date Resolution Status Invasive ductal carcinoma of left breast acute Osteopenia acute Invasive ductal carcinoma of left breast acute Invasive ductal carcinoma of left breast acute Osteopenia acute Right arm pain acute [facility] Work Phone: Evaluation note* Diagnosis Pain due to onychomycosis of toenails of both feet- Primary documented in this encounter [facility] Author Lisa Rubalcava [facility] December 05, 2023 7:53am Note Date/Time December 05, 2023 7:54 am [facility] [address] [place] [address] Gastroenterology H&P Signed Patient: Melony Manley MR#: [id number] : 1965 Acct:[id number] Age/Sex: 58 / F Adm Date: 4 Loc: Room: Type: [facility] Attending Dr: Lisa Rubalcava DO Copies to: [...] <Electronically signed by Lisa Rubalcava DO> 12/05/23 0753 [facility] Work Phone: History general Narrative - Reported* Type Description Date Medical History Gastroesophageal ref lux disease, esophagitis presence not specified Medical History Bipolar 1 disorder, depressed Medical History Acquired hypothyroidism Medical History Hypercholesterolemia Medical History BMI 28.0-28.9,adult Medical History Hypothyroidism Medical History Chronic kidney disease, stage 3 unspecified Medical History Elevated fasting glucose Medical History Pain of right upper arm Medical History [place] use Medical History Vaginal atrophy Surgical History tubal ligation 2016 Surgical History wisdom teeth Surgical History CATARACT EXTRACTION- LEFT 01/25 17 Surgical History DETACHED RETINE REPAIR (LEFT) 0 06/2021 Surgical History CATARACT EXTRACTION- RIGHT 02/06 017 Hospitalization History SEE SURGICAL HX [facility] Other Hospital Discharge instructions Additional Instructions DISCHARGE [...] directed for pain unless a prescription was provided.[facility] Work Phone: Hospital Discharge instructions Additional Instructions [...] directed for pain unless a prescription was provided.[facility] Work Phone: Progress note Author Christine Velazquez [facility] December 21, 2023 10:26am Note Date/Time December 21, 2023 9: 55am [facility] [place] [address] Cancer Center Note Signed Patient: Melony Manley MR#: [id number] : 1965 Acct:[id number] Age/Sex: 58 / F Type: REG AMB Date of Service: 12/21/23 Copies to: Susan Ayala MD~ Assessment & Plan A/P (1) Invasive ductal carcinoma of left breast: (2) Osteopenia: Eugenio Ty is a 58-year-old nice lady with a stage IIa, pT1b, PN 1, MX left breast centrally located invasive ductal carcinoma with 1+ out of 4 lymph node for invasive cancer. ER/MI reported from the 03/20/2023 core biopsy to be ER 100% positive, PER 60% positive and HER2 manolo 2+ by IHC, negative by FISH, Ki 67 low 5%. Surgical pathology report is not dictating the status of the ER, MI and HER2/manolo. Initial consult for medical oncology on 09/21/2023: We went over her new diagnosis of new left breast invasive ductal carcinoma, stage IIa, and we went over and discussed possible options of treatment based on the ER, MI and HER2/manolo status considering that she has [...] She had D[facility]A scan in 07/2022 at [facility]. 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 She will need screening mammogram as well every july. For her mild chronic thrombocytopenia, it may be related to [place] and Seroquelbut will check Iron studies, B12 [...] is reported in the surgeon note as ER/MI positive and HER2/manolo pending however there are [...] not report any status of the ER, MI and HER2/manolo, however Dr. García note to dictate that patient was ER/MI positive and HER2/manolo was pending. Left breast [...] nipple 08/01/23 Lumpectomy path: Pathological Diagnosis A. [place] node, left axilla, biopsy: Metastatic carcinoma to 1 lymph node, out of 4 lymph nodes identified (05/11) B. Mass, left posterior, lumpectomy - Invasive [...] Examined (sentinel and non-sentinel): 4 Number of [place] Nodes Examined: 4 pTNM CLASSIFICATION (AJCC 8th [...] it was ER positive on the percent, MI +60%, low Ki-67 of only 5%, HER2 [...] She had DEXA scan in 07/2022 at [facility]. It revealed osteopenia with Tscore -0.6 12/21/23: [...] HER2/manolo and actual path report for the ER/MI status, possibly need Oncotype Dx testing to determine if she needs adjuvant chemotherapy. She will need adjuvant radiation. She will need adjuvant endocrine therapy if she is ER/MI positive. Intake Vitals/Pain Assessment 12/21/23 09:56 Height [...] taking Letrozole for the last 6 days. [facility] Medical History Medical History Diabetes Osteopenia Invasive ductal carcinoma of left breast Left breast cancer with T3 tumor, >5 cm in greatest dimension Ingrown right greater toenail removed Ingrown left greater toenail removed Fibrocystic breast determined by biopsy Vaginal atrophy [place] use Elevated fasting glucose Former smoker Depression [...] signed by Christine Velazquez MD> 12/21/23 1026 [facility] Work Phone: Progress note Author Gaurav Jaime [facility] January 03, 2024 2:37pm Note Date/Time January 03, 2024 1: 58pm [facility] [place] [address] Cancer Center Note Signed Patient: Melony Manley MR#: [id number] : 1965 Acct:[id number] Age/Sex: 58 / F Type: REG AMB Date of Service: 01/03/24 Copies to: Susan Ayala MD~ Assessment & Plan (1) Invasive ductal carcinoma of left breast: Plan: Return to clinic as needed Assessment: 58-year-old female with [id number] invasive ductal carcinoma of the left breast, grade 2, ER/MI positive HER2 negative. Patient has undergone lumpectomy [...] carcinoma, provisional grade 1, with DCIS. Strongly ER/MI positive HER2 was equivocal 2+ There is [...] margin was less than 1 mm posteriorly. [place] lymph node biopsy showed macrometastasis and 1 of 4 lymph nodes size of the largest manjit metastatic deposit was 4 mm. There was extranodal extension present 2 mm or less. [id number] 08/29/2023 return to OR for reexcision, no [...] Fall Precaution Measures Taken: Patient in chair [facility] Medical History Medical History Diabetes Osteopenia Invasive ductal carcinoma of left breast Left breast cancer with T3 tumor, >5 cm in greatest dimension Ingrown right greater toenail removed Ingrown left greater toenail removed Fibrocystic breast determined by biopsy Vaginal atrophy [place] use Elevated fasting glucose Former smoker Depression Anxiety GERD (gastroesophageal reflux disease) Schizophrenia Bipolar disorder Hypothyroidism Hyperlipidemia Breast cancer left Surgical History Surgical History Status post left breast lumpectomy 08/01/2023 with re-excision 08/29/2023 H/O eye surgery retina 2020 H/O wisdom tooth extraction History of laparoscopy [...] 10:30 Dictated By: Gaurav Jaime MD DD/ 6 Signed By: <Electronically signed by Gaurav Jaime MD> 01/03/24 1437 [facility] Work Phone: Advance Directives Advance Directive Response Recorded Date/ Time Advance Directives No January 3:39pm Advance Directive Response Recorded Date/ Time Advance Directives No January 4:39pm Advance Directive Response Recorded Date/ Time Advance Directives No March 16, 2024 9:07am Summary Purpose Family History Relationship Condition Age [...] inoma of left breast (C50.912) Referral Organization [facility]reddy Referring Provider First Name Susan Referring Provider Last Name Jamie Referring Provider Specialty Family [facility] Referred Organization [facility] Referred Provider Geraldo García Referred Address ,[place], [place],[address] Referred Provider Specialty Surgery Referral Priority Routine [...] Screening Amb Documentation f/u moved up from 8/28 per 12/13 triage Left breast cancer Med Onc/Rad Onc Follow Up 1 Month Reason for Visit Invasive ductal carc inoma of left breast Osteopenia Invasive ductal carcinoma of left breast Invasive ductal carcinoma of left breast Osteopenia Invasive ductal carcinoma of left breast Chief Complaint Left breast cancer Left breast cancer Screening Screening Amb Documentation f/u moved up from 01/02 per 12/13 triage Med Onc/Rad Onc Follow Up 1 Month Follow Up Left breast cancer Reason for Visit Invasive ductal carc inoma of left breast Osteopenia Invasive ductal carcinoma of left breast Invasive ductal carcinoma of left breast Osteopenia Chief Complaint Left breast cancer Screening Screening Amb Documentation f/u moved up from 01/02 per 12/13 triage Med Onc/Rad Onc Follow Up 1 Month Follow Up Left breast cancer Med Check Up/Ear Cleaning Reason for Visit Invasive ductal carc inoma of left breast Osteopenia Invasive ductal carcinoma of left breast Invasive ductal carcinoma of left breast Osteopenia Right arm pain Chief Complaint Admit Date Med Onc/Rad Onc Follow Up 1 Month January 03, 2024 1:43pm Follow Up February 15, 2024 1 2:46pm Left breast cancer February 15, 2024 1 2:49pm Med Check Up/Ear Cleaning February 20, 2024 10:22am February 27, 2024 1 2:00pm Sore throat, ear pain March 16, 2024 9:09am Reason for Visit Admit Date Invasive ductal carcinoma of left breast January 03, 2024 1:43pm Invasive ductal carcinoma of left breast February 15, 2024 12:46pm Osteopenia February 15, 2024 1 2:46pm Right arm pain February 20, 2024 1 0:22am Type 2 diabetes mellitus with hyperglyce [place] February 20, 2024 10:22am Right acute otitis media March 16, 2 024 9:09am Generalized body aches March 16 9:09am Sore throat March 16, 2024 9 :09am Chief Complaint Admit Date Med Onc/Rad Onc Follow Up 1 Month January 03, 2024 1:43pm Follow Up February 15, 2024 1 2:46pm Med Check Up/Ear Cleaning February 20, 2024 10:22am February 27, 2024 1 2:00pm Sore throat, ear pain March 16, 2024 9:09am F/U from triage March 22, 2024 10:25am Left breast cancer March 22, 2024 10:38am Reason for Visit Admit Date Invasive ductal carcinoma of left breast January 03, 2024 1:43pm Invasive ductal carcinoma of left breast February 15, 2024 12:46pm Osteopenia February 15, 2024 1 2:46pm Right arm pain February 20, 2024 1 0:22am Type 2 diabetes mellitus with hyperglyce [facility] February 20, 2024 10:22am Right acute otitis media March 16, 2 024 9:09am Generalized body aches March 16 9:09am Sore throat March 16, 2024 9 :09am Invasive ductal carcinoma of left breast March 22, 2024 10:25am Osteopenia March 22, 2024 10:25am Chief Complaint Admit Date Med Onc/Rad Onc Follow Up 1 Month January 03, 2024 1:43pm Follow Up February 15, 2024 1 2:46pm Med Check Up/Ear Cleaning February 20, 2024 10:22am BH February 27, 2024 1 2:00pm Sore throat, ear pain March 16, 2024 9:09am F/U from triage March 22, 2024 10:25am Left breast cancer March 22, 2024 10:38am UC follow up, not feeling better [facility] 2023 2:36pm Reason for Visit Admit Date Invasive ductal carcinoma of left breast January 03, 2024 1:43pm Invasive ductal carcinoma of left breast February 15, 2024 12:46pm Osteopenia February 15, 2024 1 2:46pm Right arm pain February 20, 2024 1 0:22am Type 2 diabetes mellitus with hyperglyce [facility] February 20, 2024 10:22am Right acute otitis media March 16, 2 024 9:09am Generalized body aches March 16 9:09am Sore throat March 16, 2024 9 :09am Breast pain, left March 22, 2024 10:25am Invasive ductal carcinoma of left breast March 22, 2024 10:25am Osteopenia March 22, 2024 10:25am Additional Source Comments Care Teams (unrecognized sec [...] Star t: February 15, 2024 Team Status: Inactive Member Role Status Dates Susan Ayala MD Primary Care Provide r, Attending Provider Active Start: February 20, 2024 End: February 20, 2024 Team Status: Active Member Role Status Dates Gavin Plaza MD Attending Provider Active Start: February 27, 2024 Team Status: Inactive Member Role Status Dates Susan Ayala MD Primary Care Provider Active Start: March 16, 2024 End: March 16, 2024 BELLE Hdez RN [employer] Attending Provider Active Start: March 16, 2024 End: March 16, 2024 Team Status: Active Member Role Status [...] Active Start: January 23, 2024 Team Status: Inactive Member Role Status [...] Provider Active Start: November 02, 2023 Geraldo Itzkowitz , DO Referring Provider Active Start: November 02, 2023 Gaurav Jaime MD Attending Provid er, Other Provider Active Start: November 02, 2023 Team Status: Active Member Role Status Dates Susan Ayala MD Primary Care Provider Active Start: November 08, 2023 Geraldo Itsophiakoyue , DO Referring Provider Active Start: November 08, 2023 Gaurav Jaime MD Attending Provid er, Other Provider Active Start: November 08, 2023 Team Status: Active Member Role Status Dates Susan Ayala MD Primary Care Provider Active Start: November 13, 2023 Geraldo Itruby , DO Referring Provider Active Start: November [...] Active Start: December 11, 2023 Team Status: Active Member Role Status Dates Susan Ayala MD Primary Care Provider Active Start: January 03, 2024 Christine Velazquez MD Attending Provider Active Start: January 03, 2024 Geraldo García , DO Referring Provider Active Start: January 03, 2024 Gaurav Jaime MD Active Star t: January 03, 2024 Team Status: Active Member [...] Active Start: November 29, 2023 Geraldo García , DO Referring Provider Active Start: November 29, [...] 2023 End: September 21, 2023 Geraldo García DO Referring [...] Gavin Plaza MD Attending Provider Active Start: May 30, 2023 Team Status: Active Member Role Status Dates Susan Ayala MD Primary Care Provider Active Start: October 11, 2023 Christine Velazquez MD Attending Provider Active Start: October 11, 2023 Geraldo García DO Referring Provider Active Start: October 11, 2023 Team Status: Active Member Role Status Dates Gavin Plaza MD Attending Provider Active Start: October 31, 2023 Team Status: Active Member Role Status Dates Susan Ayala MD Primary Care Provider Active Start: November 15, 2023 Geraldo García DO Referring Provider Active Start: November 15, 2023 Gaurav Jaime MD Attending Provid er, Other Provider Active Start: November 15, 2023 Team Status: Active Member Role Status Dates Susan Ayala MD Primary Care Provider Active Start: December 04, 2023 Christine Velazquez MD Active St art: December 04, 2023 Geraldo García DO Referring Provider Active Start: December 04, 2023 Gaurav Jaime MD Attending Provider Active Start: December 04, 2023 Childcare Administrator Relationship Specialty Start Date End Date Susan Ayala MD [address] [place] [address] PCP - [facility] Medicine 03/15/23 Childcare Administrator Relationship Specialty Start Date End Date Susan Ayala MD [address] [place] [address] PCP - [facility] Medicine 03/15/23 Team Status: Inactive Member Role Status Dates Susan Ayala MD Primary Care Provider Active Start: March 22, 2024 End: March 22, 2024 Kamilaedenilson Herr APRN Attending Provider Active Start: March End: March 22, 2024 Team Status: Active Member Role Status Dates Susan Ayala MD Primary Care Provider Active Start: March 22, 2024 Christine Velazquez MD Attending Provider Active Start: March 22, 2024 Geraldo García DO Referring Provider Active Start: March 22, 2024 Gaurav Jaime MD Active Star t: March 22, 2024 Team Status: Inactive Member Role Status Dates Susan Ayala MD Primary Care Provide r, Attending Provider Active Start: March 25, 2024 End: March 25, 2024 Goals (unrecognized section and content) Goals may be documented in a n alternate sectionNo InformationNo InformationNo InformationNo InformationNo InformationNo InformationNo InformationNo InformationNo InformationNo InformationNo InformationNo InformationNo InformationNo InformationNo InformationGoals may be documented in an alternate sectionGoals may be documented in an alternate sectionGoals may be documented in an alternate sectionGoals may be documented in an alternate sectionGoals may be documented in an alternate sectionGoals may be documented in an alternate section REASON FOR VISIT (unrecogniz ed section and content) Reason Comments Toenail Care Non DM Nails INFORMATION SOURCE (unrecogn ized section and content) DATE CREATED AUTHOR 09/02/2022 [facility] DATE CREATED AUTHOR AUTHOR'S ORGANIZ ATION 07/07/2023 [facility] DATE CREATED AUTHOR AUTHOR'S ORGANIZ ATION 03/09/2024 [facility] EPIC DATE CREATED AUTHOR AUTHOR'S ORGANIZ ATION 03/25/2024 [facility] FOR RECORDS PERTAINING TO PATIENTS [...] BE BASED ON THE PRIMARY CLINICAL RECORDS. [employer] provides no warranty or guarantee of the accuracy or completeness of information in this document.
--- NOTE | 2024-03-29 12:15 | ED.EAR1 ---
HPI - Ear Problem General Chief complaint: Ear Stated complaint: EAR PAIN Time Seen by Provider: 03/29/24 12:07 Source: patient Mode of arrival: walk-in Limitations: no limitations History of Present Illness HPI Narrative: The patient recently was diagnosed with ear infection at the beginning of this month she mentioned that she finished her doxycycline with no improvement of the right ear pain, patient had history of ear infection before and it resolved after she took azithromycin and she is requesting to be treated with. Patient is denying any fever but she does have difficulty hearing in the right ear as well as pain She is still also have nasal congestion Related Data Home Medications ?Medication ?Instructions ?Recorded ?Confirmed buspirone 5 mg tablet 5 mg PO DAILY PRN anxiety 03/03/23 03/20/23 olanzapine 20 mg tablet 20 mg PO DAILY 03/03/23 03/20/23 levothyroxine 75 mcg tablet 75 mcg PO DAILY 03/20/23 03/20/23 (Euthyrox) lithium carbonate 450 mg 450 mg PO .every evening 03/20/23 03/20/23 tablet,extended release omeprazole 40 mg capsule,delayed 40 mg PO DAILY 03/20/23 03/20/23 release quetiapine 200 mg tablet 200 mg PO DAILY 03/20/23 03/20/23 rosuvastatin 20 mg tablet 20 mg PO .every evening 03/20/23 03/20/23 Previous Rx's ?Medication ?Instructions ?Recorded azithromycin 250 mg tablet See Rx Instructions PO .COMPLEX #6 03/29/24 (Zithromax Z-Gumaro) tabs Allergies Allergy/AdvReac Type Severity Reaction Status Date / Time Penicillins Allergy altered Verified 03/20/23 14:13 mental status Review of Systems ROS Status of ROS 10 or more systems reviewed and unremarkable except as noted in history and below [facility] Medical History (Updated 03/29/24 @ 12:13 by Bella Ramirez MD) Bipolar 1 disorder ?F31.9 - Bipolar disorder, unspecified (ICD-10) Hypothyroidism ?E03.9 - Hypothyroidism, unspecified (ICD-10) High cholesterol ?E78.00 - Pure hypercholesterolemia, unspecified (ICD-10) Surgical History (Updated 03/20/23 @ 14:14 by Lia Powers) History of needle biopsy ?Z98.890 - Other specified postprocedural states (ICD-10) History of cataract removal with insertion of prosthetic lens ?Z98.49 - Cataract extraction status, unspecified eye (ICD-10) ?Z96.1 - Presence of intraocular lens (ICD-10) History of tubal ligation ?Z98.51 - Tubal ligation status (ICD-10) Social History Little interest or pleasure in doing things: not at all Feeling down, depressed, or hopeless: not at all Exam Narrative Exam Narrative: Nurses notes and vital signs reviewed and patient is not hypoxic. General: Well-appearing and in no apparent distress. Skin: Warm, dry, no pallor noted. No rash. Head: Normocephalic, atraumatic. Neck: Supple, non-tender. Eye: Pupils are equal, round and EOMI. No scleral icterus. Ears, Nose, Mouth, and Throat: TM right ear examination showed that the patient to membrane is bulging with serous fluid behind it, left ear examination shows a normal exam, the patient have nasal congestion Cardiovascular: Regular Rate and Rhythm without murmur, gallop or rub. Respiratory: No accessory muscle use or respiratory distress. Lungs are clear to auscultation, no wheezing, rales or rhonchi Chest Wall: no tenderness Back: No midline thoracic or lumbar vertebral tenderness. No CVA tenderness Musculoskeletal: normal ROM, no calf or popliteal tenderness, no lower extremity edema/swelling GI: Abdomen is soft, non-distended. Normal bowel sounds. No masses appreciated. No tenderness to palpation. No rebound, guarding, or rigidity noted. Neurological: A&O x4. No cranial nerve dysfunction observed. No truncal ataxia. Moves all extremities. Sensation intact. Psychiatric: Cooperative and interactive. Normal mood and affect. Constitutional Vital Signs, click to edit/add: Last Vital Signs Temp 99.1 F 03/29/24 11:54 Pulse 97 H 03/29/24 11:54 Resp 16 03/29/24 11:54 BP 134/77 03/29/24 11:54 Pulse Ox 96 03/29/24 11:54 O2 Del Method Room Air 03/29/24 11:54 Course Vital Signs Vital signs: Vital Signs Temperature 99.1 F 03/29/24 11:54 Pulse Rate 97 H 03/29/24 11:54 Respiratory Rate 16 03/29/24 11:54 Blood Pressure 134/77 11/22/24 11:54 Pulse Oximetry 96 03/29/24 11:54 Oxygen Delivery Method Room Air 03/29/24 11:54 Temperature 99.1 F 03/29/24 11:54 Pulse Rate 97 H 03/29/24 11:54 Respiratory Rate 16 03/29/24 11:54 Blood Pressure 134/77 03/29/24 11:54 Pulse Oximetry 96 03/29/24 11:54 Oxygen Delivery Method Room Air 03/29/24 11:54 Medical Decision Making [facility] Narrative Medical decision making narrative: The patient presentation mostly secondary to otitis media , I explained to the patient that she need to continue using medication for decongestion as well Patient requested to be treated azithromycin explained to her that sometimes it can be interacting with some of her medication she mentioned that she has been taking the psych medication for very long time and she has been treated with azithromycin before with no complication , the patient was discharged with azithromycin Z-Gumaro in addition to hydration and referred to ENT as outpatient The patient is to follow up with primary care physician in next 2-3 days or to return to the emergency department should any of the signs or symptoms worsen or new symptoms develop. The patient agrees with the following Diagnosis and Treatment plan and the patient will be discharged home. Discharge Plan Discharge Chief Complaint: Ear Clinical Impression: Otitis media Patient Disposition: Home, Self-Care Time of Disposition Decision: 12:13 Condition: Good Prescriptions / Home Meds: New azithromycin [Zithromax Z-Gumaro] 250 mg tablet See Rx Instructions .ROUTE .COMPLEX Qty: 6 0RF Rx Instructions: For 250 mg dose pack: take 500 mg today (day 1), then 250 mg for 4 days (days 2-5) No Action buspirone 5 mg tablet 5 mg PO DAILY PRN (Reason: anxiety) olanzapine 20 mg tablet 20 mg PO DAILY omeprazole 40 mg capsule,delayed release(DR/EC) 40 mg PO DAILY rosuvastatin 20 mg tablet 20 mg PO .every evening lithium carbonate 450 mg tablet extended release 450 mg PO .every evening levothyroxine [Euthyrox] 75 mcg tablet 75 mcg PO DAILY quetiapine 200 mg tablet 200 mg PO DAILY Print Language: Frisian Instructions: Ear Infection (ED) Referrals: Mabel Oscar MD [Physician] - 1 week Alexia Raya MD [Primary Care Provider] - 1 week
== END 2024-03-29 12:24 | disposition home or self-care (01) ==
PROVIDERS: Emergency Provider Emergency Medicine; PCP Family Medicine
DX: H66.91 Otitis media, unspecified, right ear (principal)
CPT/HCPCS: 99283

== ENCOUNTER 2024-04-02 09:47 | Outpatient (OUT) | payer MEDICARE, MEDICAID, SELFPAY ==
--- NOTE | 2024-04-02 09:49 | MM_ITS ---
Patient Name: NAOMI MANLEY MR#: [id number] : 1965 Exam Date: 04/02/2024 Ordering Doctor: Beatriz Teresa Sharron Herr APRN RADIOLOGY REPORT PROCEDURE: MM TOMOSYNTHESIS DIAGNOSTIC BI COMPARISON: MG MAMM SCREEN 3D SOLITARIO CAD, 08/01/2022. XR DEXA BONE DENSITY, 08/01/2022. MM POST BIOPSY LT, 03/20/2023. MM STEREOTACTIC LOC LT, 03/20/2023. MM TOMOSYNTHESIS DIAGNOSTIC LT, 02/23/2023. MG MAMM LT DIAG FU, 08/26/2022. INDICATIONS: Screening Calculator Name NCI Breast Cancer Risk Assessment Tool 5 Year Breast Cancer Risk n/a% Lifetime Breast Cancer Risk n/a% Personal Breast Cancer Yes, DCIS Age 58 Personal Ovarian Cancer No Treatments Lumpectomy Family Cancers Mother with stomach cancer at age 55. LOCATION: [facility] BREAST COMPOSITION: The breasts are heterogeneously dense,which may obscure small masses. FINDINGS: DIAGNOSTIC CATEGORY 2--BENIGN FINDING: RIGHT BREAST: No significant suspicious finding. No significant change has occurred. RIGHT BREAST: No significant suspicious finding. Surgical changes. No suspicious findings. RECOMMENDATIONS: ROUTINE MAMMOGRAM AND CLINICAL EVALUATION IN 12 MONTHS. PLEASE NOTE: A NORMAL MAMMOGRAM DOES NOT EXCLUDE THE POSSIBILITY OF BREAST CANCER. A CLINICALLY SUSPICIOUS PALPABLE LUMP SHOULD BE BIOPSIED. Dictated by: Orlando Mccormack M.D. on 04/02/2024 at 10:38 Approved by: Orlando Mccormack M.D. on 04/02/2024 at 11:08
--- OUTSIDE RECORDS SUMMARY | 2024-04-02 10:06 | XMS_ITS | CCD ---
Author Organization [facility] Care Team Providers Care Manager People Name Role Phone MD Susan Ayala Attending Provider [phone] BENITO ., DR FITCH Admitting Unavailabl e [...] e AYALA, DR SUSAN Bryant Admitting Unavailable AYALA, DR [...] Provider Itzviraj, DO Geraldo Attending Provider [phone] MD Susan Ayala Primary Care Provider MD Gavin Plaza Attending Provider MD Gavin Plaza Attending Provider MD Susan Ayala Primary Care Provider Itruby, DO Geraldo Attending Provider MD Gavin Plaza Attending Provider MD Christine Velazquez Attending Provider [phone] Itzviraj, DO Geraldo Referring Provider [phone] MD Susan Ayala Primary Care Provider Itruby, DO Geraldo Attending Provider MD Christine Velazquez Attending Provider Itruby, DO Geraldo Referring Provider [phone] MD Gavin Plaza Attending Provider MD Susan Ayala Primary Care Provider Raquel, DO Geraldo Referring Provider [phone] MD Gaurav Jaime Attending Provider DO Lisa Rubalcava L Attending Provider MD Susan Ayala Primary Care Provider MD Gavin Plaza Attending Provider MD Christine Velazquez Attending Provider Raquel, DO Geraldo Referring Provider MD Christine Velazquez Attending Provider Itzkowitz, DO Geraldo Referring Provider MD Gavin Plaza Attending Provider MD Christine Velazquez Attending Provider Itzkowitz, DO Geraldo Referring Provider Susan Ayala MD Primary Care Provider [phone] GILSON KENYON Attending Unavailable ITZKOWITZ, GERALDO H [...] H Attending Unavailable GILSON KENYON Attending Unavailable GILSON KENYON Attending Unavailable Susan Ayala MD Primary Care Provider [phone] Christine Velazquez MD Attending Provider Itzkowitz DO, Geraldo Referring Provider Gavin Plaza MD Attending Provider Susan Ayala MD Primary Care Provider Christine Velazquez MD Attending Provider Itzkowitz DO, Geraldo Referring Provider Itzviraj, Geraldo Attending Unavailable Itzkowitz, Geraldo Admitting Unavailable Susan Ayala Primary Care Unavailable Gavin Plaza Admitting Unavailab le Gavin Plaza Attending Unavailab le Itzkowitz, Geraldo Referring Unavailable Christine Velazquez Attending UnavailSusan Lockett Primary Care Unavailable Al-Marrawi, Mhd Yamy Admitting Unavailabl e LyLisa L Admitting Unavailable LyLisa L Attending Unavailable Susan Ayala E Primary Care Unavailable Itzkowitz, Geraldo Admitting Unavailable Jose Francisco Ayalaia E Primary Care Unavailable Itzkowitz, Geraldo Attending Unavailable Itzkowitz, Geraldo Admitting Unavailable Jose Francisco Ayalaia E Primary Care Unavailable Itzkowitz, Geraldo Attending Unavailable Itzkowitz, Geraldo Admitting Unavailable Jose Francisco Ayalaia E Primary Care Unavailable Itzkowitz, Geraldo Attending Unavailable Itzkowitz, Geraldo Attending Unavailable Itzkowitz, Geraldo Admitting Unavailable Jose Francisco Ayalaia E Primary Care Unavailable Itzkowitz, Geraldo Admitting Unavailable Jose Francisco Ayalaia E Primary Care Unavailable Itzkowitz, Geraldo Attending Unavailable Allergies Allergy Classification Reported Allergen(s) Allergy Type Date of Onset Reaction(s) Facility Cephalosporins (antibiotic) (1 source) Cephalosporins (Antibiotic) Drug Allergy 10-11-19 24 Unknown Reaction [facility] Penicillins (antibiotic) (1 source) Penicillins Drug Allergy 10-11-19 24 Swelling of Lip/Tongue/Thro at [facility] (9 sources) cefdinir Drug Allergy Unknown Dynadec Other (15 sources) Penicillin Drug Allergy halucination and swallowing dificulty Dynadec Other (16 sources) Penicillins Drug allergy (disorder) 05-08-18 76 Swelling of Lip/Tongue/Thro at [facility] (10 sources) Medicinal cephalosporin and acting as antibacterial agent (FN) Drug allergy Unknown Dynadec Other (10 sources) Ceftin *CEPHALOSPORINS* Propensity to adverse reactions Unknown Dynadec Other (17 sources) Cephalosporins (Antibiotic); Translations: [Cephalosporins] Allergy to substance 07-19-19 24 Unknown Reaction [facility] (2 sources) Penicillins Drug Allergy 03-09-20 23 Other [facility] (2 sources) Penicillins Drug allergy (disorder) 07-19-19 24 [facility] Repository Medications Current Medications Medication Drug Class(es) [...] by mouth once daily in the evening [place] Carbonate 450 mg tablet extended release Active 450 MG PO Every evening May 02, 2023 12:00am [place] Carbonat e 450 mg 2 tablets QHS [...] current use of drug therapy; Translations: [Other retirement (current) drug therapy] Episodic Other aftercare (3 sources) Other retirement (current) drug therapy; Translations: [OTH PENITENTIARY 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 THERAPY] Onset: 04-18-2022 Episodic Other [...] 28.0-28.9, adult; Translations: [BMI 28.0-28.9,adult] Episodic Other upper respiratory disease (12 sources) [...] 30.0-30.9, adult] Onset: 06-04-2019 Resolved: 06-28-2019 Chronic Other screening for suspected conditions (not mental disorders or infectious disease) (20 sources) Other abnormal and inconclusive findings on diagnostic imaging of breast; Translations: [Encounter for screening mammogram for malignant neoplasm of breast] Onset: 07-18-2022 Resolved: 06-28-2019 Episodic Residual codes; unclassified (1 source) Postmenopausal state; Translations: [Asymptomatic menopausal state] Onset: 06-04-2019 Episodic Spondylosis; intervertebral disc disorders; other back problems (1 source) Backache; Translations: [Dorsalgia, unspecified] Onset: 03-07-2018 Episodic Results Test Name Value Interpretation Reference Range Facility COVID Cepheidon 03-16-2024 SARS-CoV-2 (COVID-19) RNA HIMANSHU+probe Ql (Unsp spec) COVID Cepheid [facility] Laboratory - Microbiology an d Antimicrobial susceptibilityon 03-16-2024 SARS-CoV-2 (COVID-19) RNA HIMANSHU+probe Ql (Unsp spec) Negative [facility] No Panel InformationOrdered By: Valencia Boyd on 03-16-2024 Quick Strep (POC) [facility] No Panel Informationon 03-16 POC Influenza A (PCR) Negative [facility] POC Influenza B (PCR) Negative [facility] HbA1c HPLC (Bld) [Mass fract ion]on 02-20-2024 HbA1c (Bld) [Mass fraction] Hemoglobin A1c/Hemoglobin.total in Blood by HPLC [facility] Globulin Calc (S) [Mass/Vol] on 02-08-2024 Globulin (S) [Mass/Vol] 3.6 g/dL [facility] Globulin (S) [Mass/Vol] Serum globulin measurement by calculation (mass/volume) [facility] Laboratory - Chemistry and C hemistry - challengeon 02-08-2024 Albumin [Mass/Vol] 4.0 g/dL 3.4-5.0 [facility] ALP [Catalytic activity/Vol] 104 U/L 46-116 [facility] ALT [Catalytic activity/Vol] 37 U/L 14-59 [facility] AST [Catalytic activity/Vol] 29 U/L 15-37 [facility] Bilirubin [Mass/Vol] 0.4 mg/dL 0.2-1.0 [facility] Bilirubin.direct [Mass/Vol] 0.1 mg/dL 0.0-0.2 [facility] Protein [Mass/Vol] 7.6 g/dL 6.4-8.2 [facility] Serum or plasma albumin/glob ulin mass ratioon 02-08-2024 Albumin/Globulin [Mass ratio] 1.1 {ratio} [facility] Albumin/Globulin [Mass ratio] Serum or plasma albumin/globulin mass ratio [facility] Basophils Auto (Bld) [#/Vol] on 12-22-2023 Basophils (Bld) [#/Vol] 0.0 10 3/uL 0.0-0.1 [facility] Basophils/100 WBC Auto (Bld) on 12-22-2023 Basophils/100 WBC (Bld) 0.2 % 0.2-2.0 [facility] Eosinophils/100 WBC Auto (Bl d)on 12-22-2023 Eosinophils/100 WBC (Bld) 0.0 % Low 0.9-7.0 [facility] Erythrocyte distribution wid th Auto (RBC) [Ratio]on 12-22-2023 Erythrocyte distribution width (RBC) [Ratio] 13.9 % 11.0-15.0 [facility] Estimated glomerular filtrat ion rate (GFR) non- Americanon 12-22-2023 GFR/1.73 sq M.predicted among non-blacks MDRD (S/P/Bld) [Vol rate/Area] 52 mL/min/{1.73_m2} Low >=60 [facility] Globulin Calc (S) [Mass/Vol] on 12-22-2023 Globulin (S) [Mass/Vol] 3.3 g/dL [facility] Hematocrit Auto (Bld) [Volum e fraction]on 12-22-2023 Hematocrit (Bld) [Volume fraction] 42.6 % 36.0-48.0 [facility] Hemoglobin [Mass/volume] in Bloodon 12-22-2023 Hemoglobin (Bld) [Mass/Vol] 13.1 g/dL 12.0-16.0 [facility] Iron binding capacity [Mass/ volume] in Serum or Plasmaon 12-22-2023 Iron binding capacity [Mass/Vol] 324.0 ug/dL 250.0-450.0 [facility] Iron saturation [Mass Fracti on] in Serum or Plasmaon 12-22-2023 Iron saturation [Mass fraction] 18.5 % [facility] Laboratory - Chemistry and C hemistry - challengeon 12-22-2023 Albumin [Mass/Vol] 4.1 g/dL 3.4-5.0 [facility] ALP [Catalytic activity/Vol] 101 U/L 46-116 [facility] ALT [Catalytic activity/Vol] 42 U/L 14-59 [facility] AST [Catalytic activity/Vol] 35 U/L 15-37 [facility] Bilirubin [Mass/Vol] 0.4 mg/dL 0.2-1.0 [facility] Calcium [Mass/Vol] 10.0 mg/dL 8.5-10.1 [facility] Chloride [Moles/Vol] 107 mmol/L 98-107 [facility] CO2 [Moles/Vol] 27.1 mmol/L 21.0-32.0 [facility] Cobalamin (Vitamin B12) [Mass/Vol] 382.0 pg/mL 193.0-986.0 [facility] Creatinine [Mass/Vol] 1.07 mg/dL High 0.55-1.02 [facility] Ferritin [Mass/Vol] 312.0 ng/mL High 8.0-252.0 [facility] GFR/1.73 sq M.predicted MDRD (S/P/Bld) [Vol rate/Area] mL/min/{1.73_m2} >=60 [facility] Glucose [Mass/Vol] 143 mg/dL High 74-106 [facility] Iron [Mass/Vol] 60.0 ug/dL 50.0-170.0 [facility] Potassium [Moles/Vol] 5.0 mmol/L 3.5-5.1 [facility] Protein [Mass/Vol] 7.4 g/dL 6.4-8.2 [facility] Sodium [Moles/Vol] 143 mmol/L 136-145 [facility] Urea nitrogen [Mass/Vol] 13.0 mg/dL 7.0-18.0 [facility] Urea nitrogen/Creatinine [Mass ratio] 12.1 mg/mg [facility] Laboratory - Hematology and Cell countson 12-22-2023 Immature granulocytes/100 WBC (Bld) 0.2 % 0.0-0.5 [facility] Leukocytes [#/volume] correc cori for nucleated erythrocytes in Blood by Automated counon 12-22-2023 WBC corrected for nucl RBC Auto (Bld) [#/Vol] 4.2 10 3/uL 4.0-11.0 [facility] Lymphocytes Auto (Bld) [#/Vo l]on 12-22-2023 Lymphocytes (Bld) [#/Vol] 0.8 10 3/uL Low 1.2-3.8 [facility] Lymphocytes/100 WBC Auto (Bl d)on 12-22-2023 Lymphocytes/100 WBC (Bld) 18.5 % Low 20.5-60.0 [facility] MCH Auto (RBC) [Entitic mass ]on 12-22-2023 MCH (RBC) [Entitic mass] 27.8 pg 26.7-34.0 [facility] MCHC Auto (RBC) [Mass/Vol]on 12-22-2023 MCHC (RBC) [Mass/Vol] 30.8 g/dL 29.9-35.2 [facility] MCV Auto (RBC) [Entitic vol] on 12-22-2023 MCV (RBC) [Entitic vol] 90.4 fL 81.0-99.0 [facility] Monocytes Auto (Bld) [#/Vol] on 12-22-2023 Monocytes (Bld) [#/Vol] 0.3 10 3/uL 0.3-0.8 [facility] Monocytes/100 WBC Auto (Bld) on 12-22-2023 Monocytes/100 WBC (Bld) 8.1 % 1.7-12.0 [facility] Neutrophils Auto (Bld) [#/Vo l]on 12-22-2023 Neutrophils (Bld) [#/Vol] 3.1 10 3/uL 1.4-6.5 [facility] Neutrophils/100 WBC Auto (Bl d)on 12-22-2023 Neutrophils/100 WBC (Bld) 73.0 % 43.0-75.0 [facility] No Panel Informationon 12-21 Eosinophils # (Auto) 0.0 10 3/uL 0.0-0.7 [facility] Folate 8.60 ng/mL 8.60-58.90 [facility] Immature Granulocyte # (Auto) 0.01 10 3/uL 0.00-0.03 [facility] Platelet mean volume Auto (B ld) [Entitic vol]on 12-22-2023 Platelet mean volume (Bld) [Entitic vol] 10.1 fL 9.5-13.5 [facility] Platelets Auto (Bld) [#/Vol] on 12-22-2023 Platelets (Bld) [#/Vol] 115 10 3/uL Low 150-450 [facility] RBC Auto (Bld) [#/Vol]on RBC (Bld) [#/Vol] 4.71 10 6/uL 4.20-5.40 [facility] Serum or plasma albumin/glob ulin mass ratioon 12-22-2023 Albumin/Globulin [Mass ratio] 1.2 {ratio} [facility] Serum or plasma anion gap de terminationon 12-22-2023 Anion gap [Moles/Vol] 13.9 mmol/L [facility] Capillary blood glucose juan urement by glucometer (mass/volume)Ordered By: Lisa Rubalcava on 12-05-2023 Glucose [Mass/Vol] 98 mg/dL Normal [facility] Comment on above: Random Glucose Refer ence Range is dependent on time and content of last meal. Glucose of more than 200 mg/dL in a nonstressed, ambulatory subject supports the diagnosis of Diabetes Mellitus. Result Comment: [place] om Glucose Reference Range is dependent on time and content of last meal. Glucose of more than 200 mg/dL in a nonstressed, ambulatory subject supports the diagnosis of Diabetes Mellitus. Performed By: #### G LULS #### Point of Care testing , Glucose Poct Glucometerson 0 12-05-2023 Commemt1 Glu2: Cleaned Meter Normal [facility] Comment on above: Result Comment: PERF ORMED BY: [facility] [address] [place] [address] PATHOLOGIST FIELD SALES REPRESENTATIVE HUI NORTH M.D. Performed By: #### G LULS #### Point of Care testing , Yoan 12-05-2023 L Specimen: [id number] Received: 12/05/23 Status: WAN Beasley Num: [id number] Spec Type: Surgical Subm Dr: Lisa Rubalcava DO Tissues: A Colon Biopsy (SIGMOID POLYP) Procedures: HE/2, Gross/Micro L4 Age/ Patient Sex Location Account Attending Physician Melony Manley 58/F [id number] Lisa Rubalcava DO SPEC NUM: [id number] RECD: 12/05/23 STATUS: WAN BEASLEY NUM: [id number] MANGO: 12/05/23- SUBM DR: Lisa Rubalcava DO [...] and entirely submitted in A1. CPT Codes 62684 -------- -------- Specimen: [id number] Received: 12/05/23 Status: WAN Beasley Num: [id number] Spec Type: Surgical Subm Dr: Lisa Rubalcava DO Tissues: A Colon Biopsy (SIGMOID POLYP) Procedures: YUDYJose, Gross/Micro L4 -------- Patient: Melony Manley [id number] (Continued) -------- Signed (signature on file) Ugo Brandt Jr., MD 12/06/23 1401 Normal [facility] No Panel InformationOrdered By: Lisa Rubalcava on 12-05-2023 Bedside Glucose Comment Glu2: cleaned meter [facility] Estimated glomerular filtrat ion rate (GFR) non- Americanon 11-15-2023 GFR/1.73 sq M.predicted among non-blacks MDRD (S/P/Bld) [Vol rate/Area] 52 mL/min/{1.73_m2} Low >=60 [facility] Globulin Calc (S) [Mass/Vol] on 11-15-2023 Globulin (S) [Mass/Vol] 3.5 g/dL [facility] Laboratory - Chemistry and C hemistry - challengeon 11-15-2023 Albumin [Mass/Vol] 3.9 g/dL 3.4-5.0 [facility] ALP [Catalytic activity/Vol] 91 U/L 46-116 [facility] ALT [Catalytic activity/Vol] 44 U/L 14-59 [facility] AST [Catalytic activity/Vol] 40 U/L High 15-37 [facility] Bilirubin [Mass/Vol] 0.4 mg/dL 0.2-1.0 [facility] Calcium [Mass/Vol] 9.3 mg/dL 8.5-10.1 [facility] Chloride [Moles/Vol] 110 mmol/L High 98-107 [facility] CO2 [Moles/Vol] 26.2 mmol/L 21.0-32.0 [facility] Creatinine [Mass/Vol] 1.07 mg/dL High 0.55-1.02 [facility] GFR/1.73 sq M.predicted MDRD (S/P/Bld) [Vol rate/Area] mL/min/{1.73_m2} >=60 [facility] Glucose [Mass/Vol] 127 mg/dL High 74-106 [facility] Potassium [Moles/Vol] 4.7 mmol/L 3.5-5.1 [facility] Protein [Mass/Vol] 7.4 g/dL 6.4-8.2 [facility] Sodium [Moles/Vol] 145 mmol/L 136-145 [facility] Urea nitrogen [Mass/Vol] 12.0 mg/dL 7.0-18.0 [facility] Urea nitrogen/Creatinine [Mass ratio] 11.2 mg/mg [facility] Serum or plasma albumin/glob ulin mass ratioon 11-15-2023 Albumin/Globulin [Mass ratio] 1.1 {ratio} [facility] Serum or plasma anion gap de terminationon 11-15-2023 Anion gap [Moles/Vol] 13.5 mmol/L [facility] Cholesterol in LDL Calc [Mas s/Vol]on 09-26-2023 Cholesterol in LDL [Mass/Vol] 31.0 mg/dL [facility] Comment on above: <100 mg/dl [id number] 0-129 mg/dl NEAR OR ABOVE [id number] mg/dl BORDERLINE [id number] mg/dl HIGH>190 mg/dl VERY HIGH Cholesterol in VLDL Calc [Ma ss/Vol]on 09-26-2023 Cholesterol in VLDL [Mass/Vol] 47.8 mg/dL [facility] Estimated glomerular filtrat ion rate (GFR) non- Americanon 09-26-2023 GFR/1.73 sq M.predicted among non-blacks MDRD (S/P/Bld) [Vol rate/Area] mL/min/{1.73_m2} >=60 [facility] Glucose mean value [Mass/vol ume] in Blood Estimated from glycated hemoglobinon 09-26-2023 Average glucose Estimated from glycated hemoglobin (Bld) [Mass/Vol] 189 mg/dL [facility] Laboratory - Chemistry and C hemistry - challengeon 09-26-2023 Cholesterol [Mass/Vol] 120 mg/dL <=200 [facility] Cholesterol in HDL [Mass/Vol] 42 mg/dL 40-60 [facility] Comment on above: > or =60 mg/dl - LOW CARDIOVASCULAR RISK<40 mg/dl - HIGH CARDIOVASCULAR RISK Creatinine [Mass/Vol] 0.89 mg/dL 0.55-1.02 [facility] GFR/1.73 sq M.predicted MDRD (S/P/Bld) [Vol rate/Area] mL/min/{1.73_m2} >=60 [facility] Glucose [Mass/Vol] 182 mg/dL High 74-106 [facility] Triglyceride [Mass/Vol] 239 mg/dL High <=150 [facility] TSH Qn 2.178 m[IU]/L 0.358-3.740 [facility] Laboratory - Hematology and Cell countson 09-26-2023 HbA1c (Bld) [Mass fraction] 8.2 % High 4.5-6.2 [facility] Comment on above: ADA RECOMMENDED LIMI T 4.0 - 6.0ADA THERAPEUTIC TARGET < 7.0ACTION SUGGESTED> 7.0 No Panel Informationon 09-25 [place] Level 0.7 mmol/L 0.5-1.2 [facility] Comment on above: A concentration of 0 .5-0.8 mmol/L is advised for long-termuse; concentrations of up to 1.2 mmol/L may be necessaryduring acute treatment. Detection Limit = 0.1 <0.1 indicates None DetectedPerformed at: - [facility] [address] [id number] Director: Wojciech Farah PhD, Phone: [phone] Serum or plasma total choles terol/high density lipoprotein (HDL) cholesterol mass alix 09-26-2023 Cholesterol.total/Choles terol in HDL [Mass ratio] 2.9 {ratio} [facility] Comment on above: 3.3 - 4.4 LOW RISK4. 4 - 7.1 AVERAGE RISK7.1 - 11.0 MODERATE RISK>11.0 HIGH RISK Yoan 08-29-2023 L Specimen: [id number] Received: 08/29/231230 Status: WAN [place] Num: [id number] Spec Type: Surgical Subm Dr: Geraldo García, DO Tissues: A Breast Biopsy/Mass Not Requiring Micro Eval of Margins (RE-EXC POST MARGIN L Procedures: HE/9, Gross/Micro L4, AE1-AE3/3 Age/ Patient Sex Location Account Attending Physician Melony Manley 58/F [place] [id number] Geraldo García DO SPEC NUM: [id number] RECD: 08/29/23 STATUS: SOUT REQ NUM: [id number] MANGO: 08/29/[address]: Geraldo García DO [...] is entirely submitted as follows: -------- Specimen: [id number] Received: 08/29/23 Status: WAN Beasley Num: [id number] Spec Type: Surgical Subm Dr: Geraldo García, Tissues: A Breast Biopsy/Mass Not Requiring Micro Eval of Margins (RE-EXC POST MARGIN L Procedures: YUDY/Yesi, Gross/Micro L4, AE1-AE3/3 -------- Patient: Melony Manley [id number] (Continued) -------- Specimen: [id number] Received: 08/29/23 (Continued) Gross Description (Continued) Signed (signature on file) Nathaniel Gillette MD 08/31/23 1126 -------- Specimen: [id number] Received: 08/29/23 Status: WAN Beasley Num: [id number] Spec Type: Surgical Subm Dr: Geraldo García, DO Tissues: A Breast Biopsy/Mass Not Requiring Micro Eval of Margins (RE-EXC POST MARGIN L Procedures: HE/Yesi, Gross/Micro L4, AE1-AE3/3 -------- Patient: Melony Manley [id number] (Continued) -------- Specimen: [id number] Received: 08/29/23 (Continued) Gross Description (Continued) A1: [...] posterior margin left breast TW CPT Codes 08288 80633 LUMP WITH BIOPSY CLIP AND SUTURES LUMP WITH BIOPSY CLIP AND SUTURES -------- -------- Specimen: [id number] Received: 08/29/23 Status: WAN Gale Num: [id number] Spec Type: Surgical Subm Dr: Geraldo García DO Tissues: A Breast Biopsy/Mass Not Requiring Micro Eval of Margins (RE-EXC POST MARGIN L Procedures: /9, Gross/Micro L4, AE1-AE3/3 -------- Patient: VetoMelony [id number] (Continued) (more content not included)... Normal [facility] Automated basophil %Ordered By: Ibrahima Chand on 08-01-2023 Basophils/100 WBC (Bld) 0.5 % Normal . [facility] Comment on above: Performed By: #### C BC, BMP #### [address] Automated basophil countOrde red By: Ibrahima Chand on 08-01-2023 Basophils (Bld) [#/Vol] 0.0 10*3/uL Normal 0.0-0.2 [facility] Comment on above: Result Comment: PERF ORMED BY: [place] [address] PATHOLOGIST FIELD SALES REPRESENTATIVE HUI NORTH M.D. Performed By: #### C BC, BMP #### [address] Automated blood monocyte cou ntOrdered By: Ibrahima Mannie on 08-01-2023 Monocytes (Bld) [#/Vol] 0.4 10*3/uL Normal 0.0-0.8 [facility] Comment on above: Performed By: #### C BC, BMP #### [address] Automated eosinophil %Ordere d By: Ibrahima Maciasain on 08-01-2023 Eosinophils/100 WBC (Bld) 0.1 % Normal . [facility] Comment on above: Performed By: #### C BC, BMP #### [address] Automated eosinophil countOr dered By: Ibrahima Maciasain on 08-01-2023 Eosinophils (Bld) [#/Vol] 0.0 10*3/uL Normal 0.0-0.45 [facility] Comment on above: Performed By: #### C BC, BMP #### [address] Automated monocyte %Ordered By: Ibrahima Mannie on 08-01-2023 Monocytes/100 WBC (Bld) 7.1 % Normal . [facility] Comment on above: Performed By: #### C BC, BMP #### [address] Automated neutrophil %Ordere d By: Ibrahima Chand on 08-01-2023 Neutrophils/100 WBC (Bld) 73.1 % Normal . [facility] Comment on above: Performed By: #### C BC, BMP #### [address] Basic Metabolic Panelon 07-07 Anion gap [Moles/Vol] Not performed Normal 6.0-15.0 [facility] Comment on above: Performed By: #### C BC, BMP #### [address] Creatinine Clr Calc Pharmacy 75.96 Normal [facility] Comment on above: Result Comment: PERF ORMED BY: [place] [address] PATHOLOGIST FIELD SALES REPRESENTATIVE HUI NORTH M.D. Performed By: #### C BC, BMP #### [address] GFR/1.73 sq M.predicted MDRD (S/P/Bld) [Vol rate/Area] mL/min/{1.73_m2} Normal [facility] Comment on above: Performed By: #### C BC, BMP #### [address] Potassium Normal 3.5-5.1 [facility] Comment on above: Result Comment: Spec imen hemolyzed, redraw requested Performed By: #### C BC, BMP #### [address] Calcium [Mass/volume] in Ser um or PlasmaOrdered By: Ibrahima Chand on 08-01-2023 Calcium [Mass/Vol] 9.2 mg/dL Normal 8.6-10.3 [facility] Comment on above: Performed By: #### C BC, BMP #### [address] Carbon dioxide, total [Moles /volume] in Serum or PlasmaOrdered By: Ibrahima Chand on 08-01-2023 CO2 [Moles/Vol] 25.7 mmol/L Normal 21.0-31.0 [facility] Comment on above: Performed By: #### C BC, BMP #### [address] Chloride [Moles/volume] in S cristi or PlasmaOrdered By: Ibrahima Chand on 08-01-2023 Chloride [Moles/Vol] 106 mmol/L Normal 98-107 [facility] Comment on above: Performed By: #### C BC, BMP #### [address] Complete Blood Count Auto Di ffon 08-01-2023 Mean Corpuscular HGB Conc 32.5 g/dL Normal 32.0-35.0 [facility] Comment on above: Performed By: #### C BC, BMP #### [address] NRBC% 0.1 /100{WBC} Normal 0-0.5 [facility] Comment on above: Performed By: #### C BC, BMP #### [address] Creatinine [Mass/volume] in Serum or PlasmaOrdered By: Ibrahima Chand on 08-01-2023 Creatinine [Mass/Vol] 0.79 mg/dL Normal 0.60-1.20 [facility] Comment on above: Performed By: #### C BC, BMP #### [address] Erythrocyte distribution wid th [Ratio] by Automated countOrdered By: Ibrahima Chand on 08-01-2023 Erythrocyte distribution width (RBC) [Ratio] 14.7 % Normal 11.9-15.3 [facility] Comment on above: Performed By: #### C BC, BMP #### [place] [address] [place] Erythrocytes [#/volume] in B lood by Automated countOrdered By: Ibrahima Chand on 08-01-2023 RBC (Bld) [#/Vol] 5.07 10*6/uL High 3.60-5.00 [facility] Comment on above: Performed By: #### C BC, BMP #### [address] Glucose [Mass/volume] in Ser um or PlasmaOrdered By: Ibrahima Maciasain on 08-01-2023 Glucose [Mass/Vol] 157 mg/dL High 70-100 [facility] Comment on above: ADA recommended refe rence rangeRandom Glucose Reference Range is dependent on time and content of last meal. Glucose of more than 200 mg/dL in a nonstressed, ambulatory subject supports the diagnosis of Diabetes Mellitus. Result Comment: [place] om Glucose Reference Range is dependent on time and content of last meal. Glucose of more than 200 mg/dL in a nonstressed, ambulatory subject supports the diagnosis of Diabetes Mellitus. ADA recommended reference range Performed By: #### C BC, BMP #### [address] Hematocrit [Volume Fraction] of Blood by Automated countOrdered By: Ibrahima Chand on 08-01-2023 Hematocrit (Bld) [Volume fraction] 43.1 % Normal 34.0-46.4 [facility] Comment on above: Performed By: #### C BC, BMP #### [address] Hemoglobin [Mass/volume] in BloodOrdered By: Ibrahima Chand on 08-01-2023 Hemoglobin (Bld) [Mass/Vol] 14.0 g/dL Normal 11.8-15.4 [facility] Comment on above: Performed By: #### C BC, BMP #### [address] Yoan 08-01-2023 L Specimen: [id number] Received: 08/01/23 Status: WAN Beasley Num: [id number] Spec Type: Surgical Subm Dr: Geraldo García, DO Tissues: A Breast [place] Lymph Node (LT SN) B Breast Lumpectmy/Mass - Requiring Micros Eval of Margins (LT BREAST) Procedures: HE/21, Gross/Micro L5/2, Frozen Section, Froz Sec, Add, E CADHERIN/2, IHC First AB, FS HE/4 Age/ Patient Sex Location Account Attending Physician Melony Manley 58/F [place] [id number] Geraldo García DO SPEC NUM: RECD: 08/01/23 STATUS: [place]AN [place] NUM: [id number] MANGO: 08/01/23-[address]: Geraldo García DO ENTERED: 08/01/[address] [facility] [address]: SPEC TYPE: Surgical DEPT: S ORDERED: [...] Gordillo MD 10/10/23 173 -------- -------- Specimen: [id number] Received: 08/01/23 Status: WAN [place] Num: [id number] Spec Type: Surgical Subm Dr: Geraldo Itzkowitz, DO Tissues: A Breast [place] Lymph Node (LT SN) B Breast Lumpectmy/Mass - Requiring Micros Eval of Margins (LT BREAST) Procedures: HE/21, Gross/Micro L5/2, Frozen Section, Paul Sec, Add, E CADHERIN/2, IHC First AB, FS HE/4 -------- Patient: Melony Manley [id number] (Continued) -------- Specimen: [id number] Received: 08/01/23 (Continued) Signed (signature on file) Garfield Gordillo MD 08/08/23 1730 -------- Specimen: [id number] Received: 08/01/23 Status: WAN Beasley Num: [id number] Spec Type: Surgical Subm Dr: Geraldo García, DO Tissues: A Breast [place] Lymph Node (LT SN) B Breast Lumpectmy/Mass - Requiring Micros Eval of Margins (LT BREAST) Procedures: HE/21, Gross/Micro L5/2, Frozen Section, Froz Sec, Add, E CADHERIN/2, IHC First AB, FS HE/4 -------- Patient: Melony Manley [id number] (Continued) -------- Specimen: [id number] Received: 08/01/23-1200 (Continued) Pathological Diagnosis A. [place] node, left axilla, biopsy: Metastatic carcinoma to [...] Examined (sentinel and non-sentinel): 4 Number of [place] Nodes Examined: 4 pTNM CLASSIFICATION (AJCC 8th Edition) -------- Specimen: [id number] Received: 08/01/23-1199 Status: WAN Beasley Num: [id number] Spec Type: Surgical Subm Dr: Geraldo García, DO Tissues: A Breast [place] Lymph Node (LT SN) B Breast Lumpectmy/Mass - Requiring Micros Eval of Margins (LT BREAST (more content not included)... Normal [facility] Leukocytes [#/volume] correc cori for nucleated erythrocytes in Blood by Automated counOrdered By: Ibrahima Chand on 08-01-2023 WBC corrected for nucl RBC Auto (Bld) [#/Vol] 5.5 10*3/uL 3.8-11.6 [facility] Leukocytes [#/volume] in Blo od by Automated countOrdered By: Ibrahima Chand on 08-01-2023 WBC (Bld) [#/Vol] 5.5 10*3/uL Normal 3.8-11.6 [facility] Comment on above: Performed By: #### C BC, BMP #### [facility] [address] [place] [address] [place] Lymphocytes [#/volume] in Bl ood by Automated countOrdered By: Ibrahima Chand on 08-01-2023 Lymphocytes (Bld) [#/Vol] 1.1 10*3/uL Normal 1.00-4.8 [facility] Comment on above: Performed By: #### C BC, BMP #### [facility] [address] [place] [address] [place] Lymphocytes/100 leukocytes i n Blood by Automated countOrdered By: Ibrahima Chand on 08-01-2023 Lymphocytes/100 WBC (Bld) 19.2 % Normal . [facility] Comment on above: Performed By: #### C BC, BMP #### [facility] [address] [place] [address] MCH [Entitic mass] by Automa cori countOrdered By: Ibrahima Chand on 08-01-2023 MCH (RBC) [Entitic mass] 27.6 pg Normal 24.7-34.3 [facility] Comment on above: Performed By: #### C BC, BMP #### [facility] [address] [place] [address] MCHC Auto (RBC) [Mass/Vol]Or dered By: Ibrahima Chand on 08-01-2023 MCHC (RBC) [Mass/Vol] 32.5 g/dL 32.0-35.0 [facility] MCV [Entitic volume] by Auto mated countOrdered By: Ibrahima Mannie on 08-01-2023 MCV (RBC) [Entitic vol] 84.9 fL Normal 80-100 [facility] Comment on above: Performed By: #### C CARLEEN, BMP #### [facility] [address] [place] [address] MM surgical specimen LTon MM surgical specimen LT [facility] Main Colon [address] [place] [address] Mammography Report Signed Patient: Melony Manley MR#: [id number] : 1965 Acct:[id number] Age/Sex: 58 / F ADM Date: 08/01/23 Loc: [place] Room: Type: [facility] Attending Dr: Geraldo García DO Copies to: [...] 1:27 PM Dictation Location: RADIO-PC-12 Transcribed By: [facility] 08/01/23 1327 Dictated By: Sandro Cintron DO 08/01/23 1326 Signed By: 08/01/23 1327 Normal [facility] NM sentinel node w imagingon 08-01-2023 NM sentinel node w imaging [facility] [place] [address] Nuclear Medicine Report Signed Patient: Melony Manley MR#: [id number] : 1965 Acct:[id number] Age/Sex: 58 / F ADM Date: 08/01/23 Loc: [place] Room: Type: [facility] Attending Dr: Geraldo García DO Copies to: DO Mateusz Alexandre Jr, DO Ordering Provider: Geraldo García DO Date of Service: 08/01/23 NM/NM sentinel node w imaging: Left Breast Cancer Nuclear medicine [place] node lymphoscintigraphy. Reason for exam: Left breast [...] 1350 Signed By: 08/01/23 1351 Normal [facility] Neutrophils [#/volume] in Bl ood by Automated countOrdered By: Ibrahima Chand on 08-01-2023 Neutrophils (Bld) [#/Vol] 4.0 10*3/uL Normal 1.8-7.7 [facility] Comment on above: Performed By: #### C BC, BMP #### [facility] [address] [place] [address] No Panel InformationOrdered By: Ibrahima Mannie on 08-01-2023 Estimated GFR (CKD-EPI) > 60.0 mL/Min [facility] Creatinine Clearance (Chem 75.96 [facility] Nucleated erythrocytes [Pres ence] in Blood by Automated countOrdered By: Ibrahima Mannie on 08-01-2023 Nucleated RBC Auto Ql (Bld) 0.1 /100{WBC} 0-0.5 [facility] Platelet mean volume [Entiti c volume] in Blood by Automated countOrdered By: Ibrahima Chand on 08-01-2023 Platelet mean volume (Bld) [Entitic vol] 8.3 fL Normal 6.3-10.7 [facility] Comment on above: Performed By: #### C BC, BMP #### [address] Platelets [#/volume] in Bloo d by Automated countOrdered By: Ibrahima Chand on 08-01-2023 Platelets (Bld) [#/Vol] 131 10*3/uL Low 150-450 [facility] Comment on above: Performed By: #### C BC, BMP #### [address] Potassium [Moles/volume] in Serum or PlasmaOrdered By: Geraldo García on 08-01-2023 Potassium [Moles/Vol] 4.5 mmol/L Normal 3.5-5.1 [facility] Comment on above: Order Comment: Angelo e send a investment officer per Christin in Surg Prep. MLG Result Comment: PERF ORMED BY: [place] [address] PATHOLOGIST FIELD SALES REPRESENTATIVE HUI NORTH M.D. Performed By: #### R GREY Cruz #### [address] Serum or plasma anion gap de terminationOrdered By: Ibrahima Chand on 08-01-2023 Anion gap [Moles/Vol] TNP [facility] Comment on above: Test not performed Sodium [Moles/volume] in Ser um or PlasmaOrdered By: Ibrahima Chand on 08-01-2023 Sodium [Moles/Vol] 142 mmol/L Normal 136-145 [facility] Comment on above: Performed By: #### C BC, BMP #### [facility] [address] Urea nitrogen [Mass/volume] in Serum or PlasmaOrdered By: Ibrahima Maciasain on 08-01-2023 Urea nitrogen [Mass/Vol] 9 mg/dL Normal 7-25 [facility] Comment on above: Performed By: #### C BC, BMP #### [facility] [address] [place] [address] [place] MM needle loc LTon 4 MM needle loc LT [facility] [place] [address] Mammography Report Signed Patient: Melony Manley MR#: [id number] : 1965 Acct:[id number] Age/Sex: 58 / F ADM Date: 07/24/23 Loc: [place] Room: Type: [facility] Attending Dr: Geraldo García DO Copies to: [...] was placed in mediolateral compression and a board machine set up operator view of the inferior left breast was [...] Althea Tobar M.D.07/31/2023 12:53 PM Dictation Location: [facility] Transcribed By: JONA 07/31/23 1253 Dictated By: Althea Tobar MD 07/31/23 1248 Signed By: 07/31/23 1253 Normal [facility] Human papilloma virus 16+18+ 31+33+35+39+45+51+52+56+58+59+66+68 DNA [Presence] in Pricila 07-24-2023 HPV 16+18+31+33+35+39+45+51+ 52+56+58+59+66+68 DNA Probe+sig amp Ql (Cvx) Negative Negative [facility] Comment on above: This nucleic acid am plification test detects fourteen high-risk HPV types (16,18,31,33,35,39,45,51,52,56,58,59,66,68)without differentiation.Performed at: = - [facility] [id number] Director: Venus Acevedo MD, Phone: [phone] at: [facility] [id number] Director: Venus Acevedo MD, Phone: [phone] No Panel Informationon 07-23 HPV High Risk Other Comment Note . [facility] Comment on above: TESTS RESULT FLAG UN ITS REF RANGE LAB --DIAGNOSIS: 02 NEGATIVE FOR INTRAEPITHELIAL LESION OR MALIGNANCY.Specimen adequacy: 02 Satisfactory for evaluation. Endocervical and/or squamous metaplastic cells (endocervical component) are present.Performed by: 02 Yisel Corley Drawing Tracer (ASCP). 02Note: Note 02 The Pap smear [...] <-Panic Low,>-Panic High,A-Abnormal,AA-Critical Abnormal -------Performed at:[address] [address] Venus Acevedo MD, Reference Lab Test Patient Age Note . [facility] Comment on above: TESTS RESULT FLAG UN ITS REF RANGE LAB -- Clinician Provided Cytology Information Source.............Cervix;Endocervix No. of containers..01 ThinPrep VialAge Irena HERNANDEZ Bailey... 30 - FLAG LEGEND: L-Low Normal,H-High Normal,LL-Alert Low,HH-Alert High <-Panic Low,>-Panic High,A-Abnormal,AA-Critical Abnormal -------Performed at:01 =[address] [facility] [place] [address] Venus Acevedo MD, Automated basophil %Ordered By: Geraldo García on 07-19-2023 Basophils/100 WBC (Bld) 0.6 % Normal . [facility] Comment on above: Performed By: #### B MP, CBC #### [facility] [address] [place] [address] Automated basophil countOrde red By: Geraldo Garíca on 07-19-2023 Basophils (Bld) [#/Vol] 0.0 10*3/uL Normal 0.0-0.2 [facility] Comment on above: Result Comment: PERF ORMED BY: [place] [address] PATHOLOGIST FIELD SALES REPRESENTATIVE HUI NORTH M.D. Performed By: #### B MP, CBC #### [facility] [address] [place] [address] Automated blood monocyte cou ntOrdered By: Geraldo García on 07-19-2023 Monocytes (Bld) [#/Vol] 0.3 10*3/uL Normal 0.0-0.8 [facility] Comment on above: Performed By: #### B MP, CBC #### [facility] [address] [place] [address] Automated eosinophil %Ordere d By: Geraldo García on 07-19-2023 Eosinophils/100 WBC (Bld) 0.0 % Normal . [facility] Comment on above: Performed By: #### B MP, CBC #### [address] Automated eosinophil countOr dered By: Geraldo García on 07-19-2023 Eosinophils (Bld) [#/Vol] 0.0 10*3/uL Normal 0.0-0.45 [facility] Comment on above: Performed By: #### B MP, CBC #### [address] Automated monocyte %Ordered By: Geraldo García on 07-19-2023 Monocytes/100 WBC (Bld) 6.6 % Normal . [facility] Comment on above: Performed By: #### B MP, CBC #### [address] Automated neutrophil %Ordere d By: Geraldo García on 07-19-2023 Neutrophils/100 WBC (Bld) 77.1 % Normal . [facility] Comment on above: Performed By: #### B MP, CBC #### [address] Basic Metabolic Panelon 07-06 GFR/1.73 sq M.predicted MDRD (S/P/Bld) [Vol rate/Area] mL/min/{1.73_m2} Normal [facility] Comment on above: Performed By: #### B MP, CBC #### [address] Calcium [Mass/volume] in Ser um or PlasmaOrdered By: Geraldo García on 07-19-2023 Calcium [Mass/Vol] 9.5 mg/dL Normal 8.6-10.3 [facility] Comment on above: Result Comment: PERF ORMED BY: [place] [address] PATHOLOGIST FIELD SALES REPRESENTATIVE HUI NORTH M.D. Performed By: #### B MP, CBC #### [address] Carbon dioxide, total [Moles /volume] in Serum or PlasmaOrdered By: Geraldo García on 07-19-2023 CO2 [Moles/Vol] 27.6 mmol/L Normal 21.0-31.0 [facility] Comment on above: Performed By: #### B MP, CBC #### [address] Chloride [Moles/volume] in S cristi or PlasmaOrdered By: Geraldo García on 07-19-2023 Chloride [Moles/Vol] 101 mmol/L Normal 98-107 [facility] Comment on above: Performed By: #### B MP, CBC #### [address] Complete Blood Count Auto Di ffon 07-19-2023 Mean Corpuscular HGB Conc 33.1 g/dL Normal 32.0-35.0 [facility] Comment on above: Performed By: #### B MP, CBC #### [address] NRBC% 0.1 /100{WBC} Normal 0-0.5 [facility] Comment on above: Performed By: #### B MP, CBC #### [address] Creatinine [Mass/volume] in Serum or PlasmaOrdered By: Geraldo García on 07-19-2023 Creatinine [Mass/Vol] 0.90 mg/dL Normal 0.60-1.20 [facility] Comment on above: Performed By: #### B MP, CBC #### [address] Erythrocyte distribution wid th [Ratio] by Automated countOrdered By: Geraldo García on 07-19-2023 Erythrocyte distribution width (RBC) [Ratio] 14.1 % Normal 11.9-15.3 [facility] Comment on above: Performed By: #### B MP, CBC #### [place] [address] [place] Erythrocytes [#/volume] in B lood by Automated countOrdered By: Geraldo García on 07-19-2023 RBC (Bld) [#/Vol] 4.69 10*6/uL Normal 3.60-5.00 [facility] Comment on above: Performed By: #### B RIGOBERTO, CBC #### [facility] [address] Glucose [Mass/volume] in Ser um or PlasmaOrdered By: Geraldo García on 07-19-2023 Glucose [Mass/Vol] 333 mg/dL High 70-100 [facility] Comment on above: ADA recommended refe rence rangeRandom Glucose Reference Range is dependent on time and content of last meal. Glucose of more than 200 mg/dL in a nonstressed, ambulatory subject supports the diagnosis of Diabetes Mellitus. Result Comment: [place] om Glucose Reference Range is dependent on time and content of last meal. Glucose of more than 200 mg/dL in a nonstressed, ambulatory subject supports the diagnosis of Diabetes Mellitus. ADA recommended reference range Performed By: #### B RIGOBERTO, CBC #### [facility] [address] Hematocrit [Volume Fraction] of Blood by Automated countOrdered By: Geraldo García on 07-19-2023 Hematocrit (Bld) [Volume fraction] 39.2 % Normal 34.0-46.4 [facility] Comment on above: Performed By: #### B RIGOBERTO, CBC #### [facility] [address] [place] [address] [place] Hemoglobin [Mass/volume] in BloodOrdered By: Geraldo García on 07-19-2023 Hemoglobin (Bld) [Mass/Vol] 13.0 g/dL Normal 11.8-15.4 [facility] Comment on above: Performed By: #### B RIGOBERTO, CBC #### [place] [address] [place] Leukocytes [#/volume] correc cori for nucleated erythrocytes in Blood by Automated counOrdered By: Geraldo García on 07-19-2023 WBC corrected for nucl RBC Auto (Bld) [#/Vol] 4.8 10*3/uL 3.8-11.6 [facility] Leukocytes [#/volume] in Blo od by Automated countOrdered By: Geraldo García on 07-19-2023 WBC (Bld) [#/Vol] 4.8 10*3/uL Normal 3.8-11.6 [facility] Comment on above: Performed By: #### B MP, CBC #### [facility] [address] [place] [address] Lymphocytes [#/volume] in Bl ood by Automated countOrdered By: Geraldo García on 07-19-2023 Lymphocytes (Bld) [#/Vol] 0.7 10*3/uL Low 1.00-4.8 [facility] Comment on above: Performed By: #### B MP, CBC #### [facility] [address] [place] [address] Lymphocytes/100 leukocytes i n Blood by Automated countOrdered By: Geraldo García on 07-19-2023 Lymphocytes/100 WBC (Bld) 15.7 % Normal . [facility] Comment on above: Performed By: #### B MP, CBC #### [facility] [address] [place] [address] MCH [Entitic mass] by Automa cori countOrdered By: Geraldo García on 07-19-2023 MCH (RBC) [Entitic mass] 27.7 pg Normal 24.7-34.3 [facility] Comment on above: Performed By: #### B MP, CBC #### [facility] [address] [place] [address] MCHC Auto (RBC) [Mass/Vol]Or dered By: Geraldo García on 07-19-2023 MCHC (RBC) [Mass/Vol] 33.1 g/dL 32.0-35.0 [facility] MCV [Entitic volume] by Auto mated countOrdered By: Geraldo García on 07-19-2023 MCV (RBC) [Entitic vol] 83.7 fL Normal 80-100 [facility] Comment on above: Performed By: #### B MP, CBC #### [address] Neutrophils [#/volume] in Bl ood by Automated countOrdered By: Geraldo García on 07-19-2023 Neutrophils (Bld) [#/Vol] 3.7 10*3/uL Normal 1.8-7.7 [facility] Comment on above: Performed By: #### B MP, CBC #### [address] No Panel InformationOrdered By: Geraldo García on 07-19-2023 Estimated GFR (CKD-EPI) > 60.0 mL/Min [facility] Creatinine Clearance (Chem N/A [facility] Nucleated erythrocytes [Pres ence] in Blood by Automated countOrdered By: Geraldo aGrcía on 07-19-2023 Nucleated RBC Auto Ql (Bld) 0.1 /100{WBC} 0-0.5 [facility] Platelet mean volume [Entiti c volume] in Blood by Automated countOrdered By: Geraldo García on 07-19-2023 Platelet mean volume (Bld) [Entitic vol] 8.4 fL Normal 6.3-10.7 [facility] Comment on above: Performed By: #### B MP, CBC #### [facility] [address] [place] [address] [place] Platelets [#/volume] in Bloo d by Automated countOrdered By: Geraldo García on 07-19-2023 Platelets (Bld) [#/Vol] 127 10*3/uL Low 150-450 [facility] Comment on above: Performed By: #### B MP, CBC #### [address] Potassium [Moles/volume] in Serum or PlasmaOrdered By: Geraldo García on 07-19-2023 Potassium [Moles/Vol] 3.8 mmol/L Normal 3.5-5.1 [facility] Comment on above: Performed By: #### B MP, CBC #### [facility] [address] [place] [address] Serum or plasma anion gap de terminationOrdered By: Geraldo García on 07-19-2023 Anion gap [Moles/Vol] 12.2 mmol/L Normal 6.0-15.0 [facility] Comment on above: Performed By: #### B MP, CBC #### [address] Sodium [Moles/volume] in Ser um or PlasmaOrdered By: Geraldo García on 07-19-2023 Sodium [Moles/Vol] 137 mmol/L Normal 136-145 [facility] Comment on above: Performed By: #### B MP, CBC #### [address] Urea nitrogen [Mass/volume] in Serum or PlasmaOrdered By: Geraldo García on 07-19-2023 Urea nitrogen [Mass/Vol] 12 mg/dL Normal 7-25 [facility] Comment on above: Performed By: #### B MP, CBC #### [address] US breast LT limitedon 07-11 US breast LT limited [facility] Main Colon [address] [place] [address] Ultrasound Report Signed Patient: Melony Manley MR#: [id number] : 1965 Acct:[id number] Age/Sex: 58 / F ADM Date: 07/12/23 Loc: [facility] Room: Type: [facility] Attending Dr: Geraldo García DO Ordering Provider: [...] Althea Tobar M.D.07/12/2023 2:30 PM Dictation Location: [facility] Tech: Sheyla William Transcribed By: JONA 07/12/23 1430 Dictated By: Althea Tobar MD 07/12/23 1418 Signed By: 07/12/23 1430 Normal [facility] MRI BREAST BILATERAL W [...] MD 06/30/23 Final result Normal [facility] Yoan 05-16-2023 L - -------- Specimen: [id number] Received: 05/16/23 Status: WAN Beasley Num: [id number] Spec Type: Surgical Subm Dr: Geraldo García, DO Tissues: A BREAST CORE NO CALCS (LT BREAST TISSUE) Procedures: HE/2, Gross/Micro L4 -------- Age/ Patient Sex Location Account Attending Physician -------- VetoMelony 58/F [place] [id number] Geraldo García, DO -------- SPEC NUM: [id number] RECD: 05/16/23 STATUS: WAN RE NUM: [id number] MANGO: 05/16/23 [facility] DR: Geraldo García DO ENTERED: 05/16/23 [facility] TYPE: Surgical DEPT: S ORDERED: HE/2, Gross/Micro L4 ORDERED: HE/2, Gross/Micro L4 COMMENTS: @ Originally on account #[id number] Req #[id number] Pathological Diagnosis Left breast mass at 6:00 [...] -------- Specimen: [id number] Received: 05/16/23 Status: WAN [place] Num: [id number] Spec Type: Surgical Subm Dr: Geraldo García, DO Tissues: A BREAST CORE NO CALCS (LT BREAST TISSUE) Procedures: HE/2, Gross/Micro L4 -------- Patient: Melony Manley [id number] (Continued) -------- Specimen: [id number] Received: 05/16/23 (Continued) Gross Description (Continued) Signed (signature on file) Francis Zapata MD 05/17/23 1009 -------- Specimen: [id number] Received: 05/16/23 Status: WAN Beasley Num: [id number] Spec Type: Surgical Subm Dr: Geraldo García, DO Tissues: A BREAST CORE NO CALCS (LT BREAST TISSUE) Procedures: HE/2, Gross/Micro L4 -------- Patient: Melony Manley [id number] (Continued) -------- Specimen: [id number] Received: 05/16/23 (Continued) Gross Description (Continued) formalin: 6 PM 05/16/2023. Cold Ischemia and Fixation Time meets the requirements specified in the latest version of the ASCO/CAP guidelines: Yes. Cold Ischemic Time: 0.08 Formalin Fixation Time: 7.42 Microscopic Description Two H E slides reviewed. The microscopic examination confirms the diagnosis. CPT Codes 33385 -------- -------- Specimen: [id number] Received: 05/16/23 Status: WAN Beasley Num: [id number] Spec Type: Surgical Subm Dr: Geraldo García, Tissues: A BREAST CORE NO CALCS (LT BREAST TISSUE) Procedures: HE/Jose, Charli/Micro L4 -------- Patient: Melony Manley [id number] (Continued) -------- Signed (signature on file) Francis Zapata MD 05/17/23 1009 Normal [facility] US breast LT limitedon 05-16 breast LT limited [address] [address] Mammography Report Signed with Ronaldo Patient: Melony Manley MR#: [id number] : 1965 Acct:[id number] Age/Sex: 58 / F ADM Date: 04/28/23 Loc: [place] Room: Type: PRE MSC Attending Dr: Geraldo García DO Copies to: DO Susan Alexandre MD Ordering Provider: Geraldo García DO Date of Service: 05/16/23 US/US breast LT limited: ABN. MAMM ([id number]) US/US extremity nonvascular: LEFT AXILLA ([id number]) US/US breast ndl core biopsy LT: ABN. MAMM ([id number]) MM/MM post biopsy LT w/CAD: POST U/S BX WITH CLIP ADDENDUM 1 Addendum for pathology: Ultrasound-guided biopsy 6:00 position 2 cm from the nipple: Focal fibroadenomatoid change. No in situ or invasive carcinoma identified. Finding is benign and concordant with imaging. Surgical/oncologic management of the patient's known cancer is recommended. Impression dictated by: Mateusz Jamison Jr., Jackie05/18/2023 9:20 AM Dictation Location: [place] [address] Addendum Dictated By: Mateusz Jamison Jr, DO Addendum Signed By: 05/18/23919 Addendum Cosigned By: DD/ /31/918 TD/TT: 05/18/2303/31/920 ULTRASOUND GUIDED VACUUM-ASSISTED HOLOGIC ATEC SYSTEM CORE BIOPSIES OF THE LEFT BREAST: CLINICAL DATA: History of stereotactically biopsied breast cancer within the left breast. PROCEDURE: The patient was initially scheduled for a radioactive seed placement. The patient's outside images from [facility] were reviewed and discussed with the [...] cm from the nipple was performed by biochemistry technologist . The previously identified mass was [...] breast mass were performed using a 12-gauge Aethonos vacuum-assisted core biopsy needle under ultrasound guidance. [...] Jamison Jr., D.OBeatriz05/16/2023 12:03 PM Dictation Location: [facility] Transcribed By: [facility] 05/16/23 1203 Dictated By: Mateusz Jamison Jr, DO 05/16/23 1046 Signed By: 05/16/23 1203 Normal [facility] Automated basophil %Ordered By: Geraldo García on 05-02-2023 Basophils/100 WBC (Bld) 0.5 % Normal . [facility] Comment on above: Performed By: #### C RICA DURANT #### [facility] [address] [place] [address] Automated basophil countOrde red By: Geraldo García on 05-02-2023 Basophils (Bld) [#/Vol] 0.0 10*3/uL Normal 0.0-0.2 [facility] Comment on above: Result Comment: PERF ORMED BY: [place] [address] PATHOLOGIST FIELD SALES REPRESENTATIVE HUI NORTH M.D. Performed By: #### C CARLEEN BMP #### [address] Automated blood monocyte cou ntOrdered By: Geraldo García on 05-02-2023 Monocytes (Bld) [#/Vol] 0.4 10*3/uL Normal 0.0-0.8 [facility] Comment on above: Performed By: #### C BC, BMP #### [address] Automated eosinophil %Ordere d By: Geraldo García on 05-02-2023 Eosinophils/100 WBC (Bld) 0.0 % Normal . [facility] Comment on above: Performed By: #### C BC, BMP #### [address] Automated eosinophil countOr dered By: Geraldo García on 05-02-2023 Eosinophils (Bld) [#/Vol] 0.0 10*3/uL Normal 0.0-0.45 [facility] Comment on above: Performed By: #### C BC, BMP #### [address] Automated monocyte %Ordered By: Geraldo García on 05-02-2023 Monocytes/100 WBC (Bld) 6.5 % Normal . [facility] Comment on above: Performed By: #### C BC, BMP #### [address] Automated neutrophil %Ordere d By: Geraldo García on 05-02-2023 Neutrophils/100 WBC (Bld) 71.5 % Normal . [facility] Comment on above: Performed By: #### C BC, BMP #### [address] Basic Metabolic Panelon 04-08 GFR/1.73 sq M.predicted MDRD (S/P/Bld) [Vol rate/Area] mL/min/{1.73_m2} Normal [facility] Comment on above: Performed By: #### C BC, BMP #### [place] [address] [place] Calcium [Mass/volume] in Ser um or PlasmaOrdered By: Geraldo García on 05-02-2023 Calcium [Mass/Vol] 9.8 mg/dL Normal 8.6-10.3 [facility] Comment on above: Result Comment: PERF ORMED BY: [place] [address] PATHOLOGIST FIELD SALES REPRESENTATIVE HUI NORTH M.D. Performed By: #### C BC, BMP #### [address] Carbon dioxide, total [Moles /volume] in Serum or PlasmaOrdered By: eGraldo García on 05-02-2023 CO2 [Moles/Vol] 26.0 mmol/L Normal 21.0-31.0 [facility] Comment on above: Performed By: #### C BC, BMP #### [place] [address] [place] Chloride [Moles/volume] in S cristi or PlasmaOrdered By: Geraldo García on 05-02-2023 Chloride [Moles/Vol] 107 mmol/L Normal 98-107 [facility] Comment on above: Performed By: #### C BC, BMP #### [address] Complete Blood Count Auto Di ffon 05-02-2023 Mean Corpuscular HGB Conc 33.1 g/dL Normal 32.0-35.0 [facility] Comment on above: Performed By: #### C BC, BMP #### [place] [address] [place] NRBC% 0.0 /100{WBC} Normal 0-0.5 [facility] Comment on above: Performed By: #### C BC, BMP #### [place] [address] [place] Creatinine [Mass/volume] in Serum or PlasmaOrdered By: Geraldo García on 05-02-2023 Creatinine [Mass/Vol] 0.93 mg/dL Normal 0.60-1.20 [facility] Comment on above: Performed By: #### C CARLEEN, BMP #### [facility] [address] [place] [address] ECG 12 lead ECGon 05-02-2023 ECG 12 lead ECG [facility] Main [place] [address] [place] [address] Electrocardiograph Report Signed Patient: Melony Manley MR#: [id number] : 1965 Acct:[id number] Age/Sex: 58 / F ADM Date: 05/02/23 Loc: Room: Type: [facility] Attending Dr: Geraldo García DO Ordering [...] Sandro Villarreal DO 05/03 0946 Normal [facility] Erythrocyte distribution wid th [Ratio] by Automated countOrdered By: Geraldo García on 05-02-2023 Erythrocyte distribution width (RBC) [Ratio] 14.0 % Normal 11.9-15.3 [facility] Comment on above: Performed By: #### C CARLEEN, BMP #### [facility] [address] [place] [address] Erythrocytes [#/volume] in B lood by Automated countOrdered By: Geraldo García on 05-02-2023 RBC (Bld) [#/Vol] 4.53 10*6/uL Normal 3.60-5.00 [facility] Comment on above: Performed By: #### C CARLEEN, BMP #### [facility] [address] [place] [address] [place] Glucose [Mass/volume] in Ser um or PlasmaOrdered By: Geraldo García on 05-02-2023 Glucose [Mass/Vol] 147 mg/dL High 70-100 [facility] Comment on above: ADA recommended refe rence rangeRandom Glucose Reference Range is dependent on time and content of last meal. Glucose of more than 200 mg/dL in a nonstressed, ambulatory subject supports the diagnosis of Diabetes Mellitus. Result Comment: [place] om Glucose Reference Range is dependent on time and content of last meal. Glucose of more than 200 mg/dL in a nonstressed, ambulatory subject supports the diagnosis of Diabetes Mellitus. ADA recommended reference range Performed By: #### C CARLEEN, BMP #### [place] [address] [place] Hematocrit [Volume Fraction] of Blood by Automated countOrdered By: Geraldo García on 05-02-2023 Hematocrit (Bld) [Volume fraction] 38.9 % Normal 34.0-46.4 [facility] Comment on above: Performed By: #### C CARLEEN, BMP #### [address] Hemoglobin [Mass/volume] in BloodOrdered By: Geraldo García on 05-02-2023 Hemoglobin (Bld) [Mass/Vol] 12.9 g/dL Normal 11.8-15.4 [facility] Comment on above: Performed By: #### C CARLEEN, BMP #### [address] Leukocytes [#/volume] correc cori for nucleated erythrocytes in Blood by Automated counOrdered By: Geraldo García on 05-02-2023 WBC corrected for nucl RBC Auto (Bld) [#/Vol] 5.7 10*3/uL 3.8-11.6 [facility] Leukocytes [#/volume] in Blo od by Automated countOrdered By: Geraldo García on 05-02-2023 WBC (Bld) [#/Vol] 5.7 10*3/uL Normal 3.8-11.6 [facility] Comment on above: Performed By: #### C BC, BMP #### [facility] [address] [place] [address] [place] Lymphocytes [#/volume] in Bl ood by Automated countOrdered By: Geraldo García on 05-02-2023 Lymphocytes (Bld) [#/Vol] 1.2 10*3/uL Normal 1.00-4.8 [facility] Comment on above: Performed By: #### C CARLEEN, BMP #### [facility] [address] [place] [address] [place] Lymphocytes/100 leukocytes i n Blood by Automated countOrdered By: Geraldo García on 05-02-2023 Lymphocytes/100 WBC (Bld) 21.5 % Normal . [facility] Comment on above: Performed By: #### C CARLEEN, BMP #### [address] MCH [Entitic mass] by Automa cori countOrdered By: Geraldo García on 05-02-2023 MCH (RBC) [Entitic mass] 28.4 pg Normal 24.7-34.3 [facility] Comment on above: Performed By: #### C BC, BMP #### [address] MCHC Auto (RBC) [Mass/Vol]Or dered By: Geraldo García on 05-02-2023 MCHC (RBC) [Mass/Vol] 33.1 g/dL 32.0-35.0 [facility] MCV [Entitic volume] by Auto mated countOrdered By: Geraldo García on 05-02-2023 MCV (RBC) [Entitic vol] 85.8 fL Normal 80-100 [facility] Comment on above: Performed By: #### C BC, BMP #### [place] [address] [place] Neutrophils [#/volume] in Bl ood by Automated countOrdered By: Geraldo García on 05-02-2023 Neutrophils (Bld) [#/Vol] 4.0 10*3/uL Normal 1.8-7.7 [facility] Comment on above: Performed By: #### C CARLEEN, BMP #### [address] No Panel InformationOrdered By: Geraldo García on 05-02-2023 Estimated GFR (CKD-EPI) > 60.0 mL/Min [facility] Creatinine Clearance (Chem N/A [facility] Nucleated erythrocytes [Pres ence] in Blood by Automated countOrdered By: Geraldo García on 05-02-2023 Nucleated RBC Auto Ql (Bld) 0.0 /100{WBC} 0-0.5 [facility] Platelet mean volume [Entiti c volume] in Blood by Automated countOrdered By: Geraldo García on 05-02-2023 Platelet mean volume (Bld) [Entitic vol] 7.9 fL Normal 6.3-10.7 [facility] Comment on above: Performed By: #### C CARLEEN, BMP #### [address] Platelets [#/volume] in Bloo d by Automated countOrdered By: Geraldo García on 05-02-2023 Platelets (Bld) [#/Vol] 146 10*3/uL Low 150-450 [facility] Comment on above: Performed By: #### C CARLEEN, BMP #### [address] Potassium [Moles/volume] in Serum or PlasmaOrdered By: Geraldo García on 05-02-2023 Potassium [Moles/Vol] 4.2 mmol/L Normal 3.5-5.1 [facility] Comment on above: Performed By: #### C CARLEEN, BMP #### [address] Serum or plasma anion gap de terminationOrdered By: Geraldo García on 05-02-2023 Anion gap [Moles/Vol] 13.2 mmol/L Normal 6.0-15.0 [facility] Comment on above: Performed By: #### C BC, BMP #### [facility] [address] Sodium [Moles/volume] in Ser um or PlasmaOrdered By: Geraldo García on 05-02-2023 Sodium [Moles/Vol] 142 mmol/L Normal 136-145 [facility] Comment on above: Performed By: #### C BC, BMP #### [facility] [address] Urea nitrogen [Mass/volume] in Serum or PlasmaOrdered By: Geraldo García on 05-02-2023 Urea nitrogen [Mass/Vol] 12 mg/dL Normal 7-25 [facility] Comment on above: Performed By: #### C BC, BMP #### [facility] [address] [place] [address] MG MAMM LT DIAG FUon 023 MG MAMM LT DIAG FU Patient: MELONY MANLEY Exam Date: 08/26/2022 : 1965 Gender:F Ordering : DR LITTLE STAFFORD . Admission #: [id number] Family : Order #: [id number] CLICK HERE TO VIEW EXAM RADIOLOGY REPORT [...] stomach cancer at age 54. LOCATION: [facility] BREAST COMPOSITION: Heterogeneously dense,which may obscure [...] M.D. on 08/26/2022 at 14:39 Normal [facility] US BREAST LEFT LIMITEDon US BREAST LEFT LIMITED Patient: MELONY MANLEY Exam Date: 08/26/2022 : 1965 Gender:F Ordering : DR LITTLE STAFFORD . Admission #: [id number] Family : Order #: [id number] CLICK HERE TO VIEW EXAM RADIOLOGY REPORT [...] stomach cancer at age 54. LOCATION: [facility] BREAST COMPOSITION: Heterogeneously dense,which may obscure [...] Mccormack M.D. on 08/26/2022 at 14:39 Normal [facility] MG MAMM SCREEN 3D SOLITARIO CADon 08-01-2022 MG MAMM SCREEN 3D SOLITARIO CAD Patient: MELONY MANLEY Exam Date: 08/01/2022 : 1965 Gender:F Ordering : DR LITTLE STAFFORD . Admission #: [id number] Family : Order #: [id number] CLICK HERE TO VIEW EXAM RADIOLOGY REPORT [...] stomach cancer at age 54. LOCATION: [facility] BREAST COMPOSITION: Heterogeneously dense,which may obscure [...] M.D. on 08/01/2022 at 12:26 Normal [facility] XR DEXA BONE DENSITYon 08-01 XR [...] by: THEA MCCORMACK Date: 2022-08-01 11:39 Normal [facility] PAP ACOG PANEL 2: 30 to 65on 07-26-2022 . . Normal [facility] Comment on above: Result Comment: Perf ormed at: WB Performed By: #### [id number] #### [facility] [address] [place] [address] [address] Devon Gillette Age Gdln ACOG Testing 30-65 Normal [facility] Comment on above: Performed By: #### [id number] #### [facility] [address] [place] [address] [address] Devon Gillette DIAGNOSIS: Comment Normal [facility] Comment on above: Result Comment: NEGA TIVE FOR INTRAEPITHELIAL LESION OR MALIGNANCY. Performed at: WB Performed By: #### [id number] #### [facility] [address] [place] [address] [address] Devon Gillette HPV Aptima Negative Normal Negative [facility] Comment on above: Result Comment: This nucleic acid amplification test detects fourteen high-risk HPV types (16,18,31,33,35,39,45,51,52,56,58,59,66,68) without differentiation. Performed at: =G Performed By: #### [id number] #### [facility] [address] [place] [address] [address] Devon Gillette HPV Genotype Reflex Comment Normal [facility] Comment on above: Result Comment: Crit eria not met, HPV Genotype not performed. Performed at: WB Performed By: #### [id number] #### [facility] [address] [place] [address] Dr. Devon Gillette Methodology: Comment Normal [facility] Comment on above: Result Comment: This liquid based ThinPrep(R) pap test was screened with the use of an image guided system. Performed at: WB Performed By: #### [id number] #### [facility] [address] [place] [address] Dr. Devon Gillette Note: Comment Normal [facility] Comment on above: Result Comment: The Pap smear is a screening test designed to aid in the detection of premalignant and malignant conditions of the uterine cervix. It is not a diagnostic procedure and should not be used as the sole means of detecting cervical cancer. Both false-positive and false-negative reports do occur. . Performed at: WB Performed By: #### [id number] #### [facility] [address] [place] [address] Dr. Devon Gillette Performed by: Comment Normal [facility] Comment on above: Result Comment: Anjelica Girard, Drawing Tracer (ASCP) Performed at: WB Performed By: #### [id number] #### [facility] [address] [place] [address] Dr. Devon Gillette Specimen adequacy: Comment Normal [facility] Comment on above: Result Comment: Sati sfactory for evaluation. Endocervical and/or squamous metaplastic cells (endocervical component) are present. Performed at: WB Performed By: #### [id number] #### [facility] [address] [place] [address] Dr. Devon Gillette VAGINITIS/VAGINOSIS DNA PROB Jim 07-20-2022 Anni species Negative Normal Negative [facility] Comment on above: Performed By: #### V AGINT #### [facility] [address] [place] [address] Dr. Devon Gillette Gardnerella vaginalis Positive Abnormal Negative [facility] Comment on above: Performed By: #### V AGINT #### [facility] [address] [place] [address] [address] Devon Gillette Trichomonas vaginalis Negative Normal Negative [facility] Comment on above: Performed By: #### V AGINT #### [facility] [address] [place] [address] Dr. Devon Gillette CULTURE URINEon 04-21-2022 CULTURE URINE Culture Observations : LIGHT GROWTH OF MIXED GENITAL LAZARO. NO POTENTIAL PATHOGENS SEEN. Normal [facility] Comment on above: Performed By: #### G FRANKIE, TSH, LIPID, CREA #### [facility] [address] [place] [address] Dr. Devon Gillette LITHIUMon 04-15-2022 [place] (Eskalith(R)), Serum 0.6 mmol/L Normal 0.5-1.2 [facility] Comment on above: Result Comment: A co ncentration of 0.5-0.8 mmol/L is advised for long-term use; concentrations of up to 1.2 mmol/L may be necessary during acute treatment. Detection Limit = 0.1 <0.1 indicates None Detected Performed By: #### G FRANKIE, TSH, LIPID, CREA #### [facility] [address] [place] [address] Dr. Devon Gillette CREATININEon 04-14-2022 Creatinine [Mass/Vol] 0.89 mg/dL Normal 0.55-1.02 [facility] Comment on above: Performed By: #### G FRANKIE, TSH, LIPID, CREA #### [facility] [address] [place] [address] Dr. Devon Gillette EGFR-AF SOU[place]ESE >60 Normal >=60 [facility] Comment on above: Performed By: #### G FRANKIE, TSH, LIPID, CREA #### [facility] [address] [place] [address] Dr. Devon Gillette EGFR-NON AF [place] >60 Normal >=60 [facility] Comment on above: Performed By: #### G FRANKIE, TSH, LIPID, CREA #### [facility] [address] [place] [address] Dr. Devon Gillette GLUCOSE BLOODon 04-14-2022 Glucose [Mass/Vol] 118 mg/dL Critically high 74-106 T [facility] Comment on above: Performed By: #### G FRANKIE, TSH, LIPID, CREA #### [facility] [address] [place] [address] Dr. Devon Gillette LIPID PROFILEon 04-14-2022 CHOL-HDL RATIO NORM SEE BELOW Normal [facility] Comment on above: Result Comment: 3.3 - 4.4 LOW RISK 4.4 - 7.1 AVERAGE RISK 7.1 - 11.0 MODERATE RISK >11.0 HIGH RISK Performed By: #### G FRANKIE, TSH, LIPID, CREA #### [facility] [address] [address] [address] Devon Gillette Cholesterol [Mass/Vol] 128 mg/dL Normal <=200 Th [facility] Comment on above: Performed By: #### G FRANKIE, TSH, LIPID, CREA #### [facility] [address] [place] [address] Dr. Devon Gillette Cholesterol in HDL [Mass/Vol] 47 mg/dL Normal 40-60 [facility] Comment on above: Performed By: #### G FRANKIE, TSH, LIPID, CREA #### [facility] [address] [place] [address] Dr. Devon Gillette Cholesterol in LDL [Mass/Vol] 34.6 mg/dL Normal [facility] Comment on above: Performed By: #### G FRANKIE, TSH, LIPID, CREA #### [facility] [address] [place] [address] Dr. Devon Gillette Cholesterol.total/Choles terol in HDL [Mass ratio] 2.7 {ratio} Normal [facility] Comment on above: Performed By: #### G FRANKIE, TSH, LIPID, CREA #### [facility] [address] [place] [address] Dr. Devon Gillette HDL NORMAL > or = 60 mg/dl - LO W CARDIOVASCULAR RISK <40 mg/dl - HIGH CARDIOVASCULAR RISK Normal [facility] Comment on above: Performed By: #### G FRANKIE, TSH, LIPID, CREA #### [facility] [address] [place] [address] Dr. Devon Gillette LDL CALC NORMAL SEE BELOW Normal [facility] Comment on above: Result Comment: <100 mg/dl OPTIMAL 100 - 129 mg/dl NEAR OR ABOVE OPTIMAL 130 - 159 mg/dl BORDERLINE HIGH 160 - 189 mg/dl HIGH >190 mg/dl VERY HIGH Performed By: #### G FRANKIE, TSH, LIPID, CREA #### [facility] [address] [address] [address] Devon Gillette Triglyceride [Mass/Vol] 232 mg/dL Critically high <=150 [facility] Comment on above: Performed By: #### G FRANKIE, TSH, LIPID, CREA #### [facility] [address] [address] [address] Devon Gillette VLDL CALC 46.4 mg/dL Normal [facility] Comment on above: Performed By: #### G FRANKIE, TSH, LIPID, CREA #### [facility] [address] [place] [address] Dr. Devon Gillette TSHon 04-14-2022 TSH 0.375 uIU/mL Normal 0.358-3.740 [facility] Comment on above: Performed By: #### G FRANKIE, TSH, LIPID, CREA #### [facility] [address] [place] [address] Dr. Dveon Gillette CULTURE URINEon 03-30-2022 CULTURE URINE Isolate [...] Trimethoprim/Sulfamet hoxazole <=20 S F Normal [facility] Comment on above: Performed By: #### U RCX #### [facility] [address] [place] [address] Dr. Devon Gillette LITHIUMon 12-28-2021 [place] (Eskalith(R)), Serum 0.7 mmol/L Normal 0.5-1.2 [facility] Comment on above: Result Comment: Plas ma concentration of 0.5 - 0.8 mmol/L are advised for long-term use; concentrations of up to 1.2 mmol/L may be necessary during acute treatment. Detection Limit = 0.1 <0.1 indicates None Detected Performed By: #### G FRANKIE, TSH, LIPID, CREA #### [facility] [address] [address] [address] Devon Gillette CREATININEon 12-27-2021 Creatinine [Mass/Vol] 1.10 mg/dL Critically high 0.55-1.02 [facility] Comment on above: Performed By: #### G FRANKIE, TSH, LIPID, CREA #### [facility] [address] [address] [address] Devon Gillette EGFR-AF [place] >60 Normal >=60 [facility] Comment on above: Performed By: #### G FRANKIE, TSH, LIPID, CREA #### [facility] [address] [address] [address] Devon Gillette EGFR-NON AF [place] 51 mL/min/1.73m2 Critically low >=60 [facility] Comment on above: Performed By: #### G FRANKIE, TSH, LIPID, CREA #### [facility] [address] [address] [address] Devon Gillette DIRECT LDLon 12-27-2021 Cholesterol in LDL [Mass/Vol] 133 mg/dL Normal [facility] Comment on above: Performed By: #### G FRANKIE, TSH, LIPID, CREA #### [facility] [address] [address] [address] Devon Gillette DLDL NORMAL SEE BELOW Normal [facility] Comment on above: Result Comment: <100 mg/dl OPTIMAL 100 - 129 mg/dl NEAR OR ABOVE OPTIMAL 130 - 159 mg/dl BORDERLINE HIGH 160 - 189 mg/dl HIGH >190 mg/dl VERY HIGH Performed By: #### G FRANKIE, TSH, LIPID, CREA #### [facility] [address] [address] [address] Devon Gillette GLUCOSE BLOODon 12-27-2021 Glucose [Mass/Vol] 151 mg/dL Critically high 74-106 T [facility] Comment on above: Performed By: #### G FRANKIE, TSH, LIPID, CREA #### [facility] [address] [address] [address] Devon Gillette LIPID PROFILEon 12-27-2021 CHOL-HDL RATIO NORM SEE BELOW Normal [facility] Comment on above: Result Comment: 3.3 - 4.4 LOW RISK 4.4 - 7.1 AVERAGE RISK 7.1 - 11.0 MODERATE RISK >11.0 HIGH RISK Performed By: #### G FRANKIE, TSH, LIPID, CREA #### [facility] [address] [address] [address] Devon Gillette Cholesterol [Mass/Vol] 244 mg/dL Critically high <=200 [facility] Comment on above: Performed By: #### G FRANKIE, TSH, LIPID, CREA #### [facility] [address] [address] [address] Devon Gillette Cholesterol in HDL [Mass/Vol] 33 mg/dL Critically low 40-60 [facility] Comment on above: Performed By: #### G FRANKIE, TSH, LIPID, CREA #### [facility] [address] [address] [address] Devon Gillette Cholesterol.total/Choles terol in HDL [Mass ratio] 7.4 {ratio} Normal [facility] Comment on above: Performed By: #### G FRANKIE, TSH, LIPID, CREA #### [facility] [address] [address] [address] Devon Gillette HDL NORMAL > or = 60 mg/dl - LO W CARDIOVASCULAR RISK <40 mg/dl - HIGH CARDIOVASCULAR RISK Normal [facility] Comment on above: Performed By: #### G FRANKIE, TSH, LIPID, CREA #### [facility] [address] [address] [address] Devon Gillette Triglyceride [Mass/Vol] 431 mg/dL Critically high <=150 [facility] Comment on above: Performed By: #### G FRANKIE, TSH, LIPID, CREA #### [facility] [address] [place] [address] Dr. Devon Gillette Vital Signs Date Time Vital Sign Value Performing Clinician Facility 03-25-2024 14:49-0500 Body height 1950.72 cm Susan Ayala MD Work Phone: [facility] 03-25-2024 14:49-0500 Body mass index (BMI) [Ratio] 0.1 kg/m2 Susan Ayala MD Work Phone: [facility] 03-25-2024 14:49-0500 Body weight 70.76 kg Susan Ayala MD Work Phone: [facility] 03-25-2024 14:49-0500 Diastolic blood pressure 77 mm[Hg] Susan Ayala MD Work Phone: [facility] 03-25-2024 14:49-0500 Heart rate 87 /min Susan Ayala MD Work Phone: [facility] 03-25-2024 14:49-0500 Systolic blood pressure 133 mm[Hg] Susan Ayala MD Work Phone: [facility] 03-22-2024 10:31-0500 Body height 162.56 cm Susan Ayala MD Work Phone: [facility] 03-22-2024 10:31-0500 Body mass index (BMI) [Ratio] 26.7 kg/m2 Susan Ayala MD Work Phone: [facility] 03-22-2024 10:31-0500 Body temperature 97.9 [degF] Susan Ayala MD Work Phone: [facility] 03-22-2024 10:31-0500 Body weight 70.76 kg Susan Ayala MD Work Phone: [facility] 03-22-2024 10:31-0500 Diastolic blood pressure 85 mm[Hg] Susan Ayala MD Work Phone: [facility] 03-22-2024 10:31-0500 Heart rate 91 /min Susan Ayala MD Work Phone: [facility] 03-22-2024 10:31-0500 Respiratory rate 16 /min Susan Ayala MD Work Phone: [facility] 03-22-2024 10:31-0500 SaO2% (BldA) [Mass fraction] 99 % Susan Ayala MD Work Phone: [facility] 03-22-2024 10:31-0500 Systolic blood pressure 129 mm[Hg] Susan Ayala MD Work Phone: [facility] 03-16-2024 09:13-0500 Body height 162.56 cm Susan Ayala MD Work Phone: [facility] 03-16-2024 09:13-0500 Body mass index (BMI) [Ratio] 27.3 kg/m2 Susan Ayala MD Work Phone: [facility] 03-16-2024 09:13-0500 Body temperature 98.5 [degF] Susan Ayala MD Work Phone: [facility] 03-16-2024 09:13-0500 Body weight 72.12 kg Susan Ayala MD Work Phone: [facility] 03-16-2024 09:13-0500 Diastolic blood pressure 77 mm[Hg] Susan Ayala MD Work Phone: [facility] 03-16-2024 09:13-0500 Heart rate 94 /min Susan Ayala MD Work Phone: [facility] 03-16-2024 09:13-0500 Respiratory rate 16 /min Susan Ayala MD Work Phone: [facility] 03-16-2024 09:13-0500 SaO2% (BldA) [Mass fraction] 97 % Susan Ayala MD Work Phone: [facility] 03-16-2024 09:13-0500 Systolic blood pressure 123 mm[Hg] Susan Ayala MD Work Phone: [facility] 03-07-2024 13:23-0400 Body height 162.6 cm Gilson Kenyon DPM Work Phone: [facility] 03-07-2024 13:23-0400 Body mass index (BMI) [Ratio] 28.15 kg/m2 Gilson Kenyon DPM Work Phone: [facility] 03-07-2024 13:23-0400 Body weight 74.39 kg Gilson Kenyon DPM Work Phone: [facility] 03-07-2024 13:23-0400 Heart rate 81 /min Gilsoncarlos Kenyon DPM Work Phone: [facility] 02-20-2024 08:13-0400 Body height 162.56 cm MD Susan Ayala Work Phone: [facility] 02-20-2024 08:13-0400 Body mass index (BMI) [Ratio] 27.1 kg/m2 MD Susan Ayala Work Phone: [facility] 02-20-2024 08:13-0400 Body weight 71.78 kg MD Susan Ayala Work Phone: [facility] 02-20-2024 08:13-0400 Diastolic blood pressure 62 mm[Hg] MD Susan Ayala Work Phone: [facility] 02-20-2024 08:13-0400 Heart rate 89 /min MD Susan Ayala Work Phone: [facility] 02-20-2024 08:13-0400 Respiratory rate 16 /min MD Susan Ayala Work Phone: [facility] 02-20-2024 08:13-0400 SaO2% (BldA) [Mass fraction] 97 % MD Susan Ayala Work Phone: [facility] 02-20-2024 08:13-0400 Systolic blood pressure 126 mm[Hg] MD Susan Ayala Work Phone: [facility] 02-15-2024 13:01-0400 Body height 162.56 cm MD Susan yAala Work Phone: [facility] 02-15-2024 13:01-0400 Body mass index (BMI) [Ratio] 27.3 kg/m2 MD Susan Ayala Work Phone: [facility] 02-15-2024 13:01-0400 Body temperature 98.2 [degF] MD Susan Ayala Work Phone: [facility] 02-15-2024 13:01-0400 Body weight 72.12 kg MD Susan Ayala Work Phone: [facility] 02-15-2024 13:01-0400 Diastolic blood pressure 78 mm[Hg] MD Susan Ayala Work Phone: [facility] 02-15-2024 13:01-0400 Heart rate 82 /min MD Susan Ayala Work Phone: [facility] 02-15-2024 13:01-0400 Respiratory rate 20 /min MD Susan Ayala Work Phone: [facility] 02-15-2024 13:01-0400 SaO2% (BldA) [Mass fraction] 100 % MD Susan Ayala Work Phone: [facility] 02-15-2024 13:01-0400 Systolic blood pressure 127 mm[Hg] MD Susan Ayala Work Phone: [facility] 01-03-2024 13:56-0400 Body temperature 99.1 [degF] MD Susan Ayala Work Phone: [facility] 01-03-2024 13:56-0400 Body weight 72.12 kg MD Susan Ayala Work Phone: [facility] 01-03-2024 13:56-0400 Diastolic blood pressure 77 mm[Hg] MD Susan Ayala Work Phone: [facility] 01-03-2024 13:56-0400 Heart rate 107 /min MD Susan Ayala Work Phone: [facility] 01-03-2024 13:56-0400 Respiratory rate 16 /min MD Susan Ayala Work Phone: [facility] 01-03-2024 13:56-0400 SaO2% (BldA) [Mass fraction] 98 % MD Susan Ayala Work Phone: [facility] 01-03-2024 13:56-0400 Systolic blood pressure 147 mm[Hg] MD Susan Ayala Work Phone: [facility] 12-21-2023 09:56-0400 Body height 162.56 cm MD Susan Ayala Work Phone: [facility] 12-21-2023 09:56-0400 Body mass index (BMI) [Ratio] 27.1 kg/m2 MD Susan Ayala Work Phone: [facility] 12-21-2023 09:56-0400 Body temperature 97.9 [degF] MD Susan Ayala Work Phone: [facility] 12-21-2023 09:56-0400 Body weight 71.66 kg MD Susan Ayala Work Phone: [facility] 12-21-2023 09:56-0400 Diastolic blood pressure 81 mm[Hg] MD Susan Ayala Work Phone: [facility] 12-21-2023 09:56-0400 Heart rate 95 /min MD Susan Ayala Work Phone: [facility] 12-21-2023 09:56-0400 Respiratory rate 20 /min MD Susan Ayala Work Phone: [facility] 12-21-2023 09:56-0400 SaO2% (BldA) [Mass fraction] 100 % MD Susan Ayala Work Phone: [facility] 12-21-2023 09:56-0400 Systolic blood pressure 136 mm[Hg] MD Susan Ayala Work Phone: [facility] 12-05-2023 09:05-0400 Diastolic blood pressure 82 mm[Hg] MD Susan Ayala Work Phone: [facility] 12-05-2023 09:05-0400 Heart rate 66 /min MD Susan Ayala Work Phone: [facility] 12-05-2023 09:05-0400 Respiratory rate 20 /min MD Susan Ayala Work Phone: [facility] 12-05-2023 09:05-0400 SaO2% (BldA) [Mass fraction] 100 % MD Susan Ayala Work Phone: [facility] 12-05-2023 09:05-0400 Systolic blood pressure 137 mm[Hg] MD Susan Ayala Work Phone: [facility] 11-20-2023 08:09-0400 Body height 162.56 cm MD Susan Ayala Work Phone: [facility] 11-20-2023 08:09-0400 Body weight 74.84 kg MD Susan Ayala Work Phone: [facility] 10-24-2023 12:53-0400 Body height 162.56 cm MD Susan Ayala Work Phone: [facility] 10-24-2023 12:53-0400 Body mass index (BMI) [Ratio] 27.8 kg/m2 MD Susan Ayala Work Phone: [facility] 10-24-2023 12:53-0400 Body temperature 97.9 [degF] MD Susan Ayala Work Phone: [facility] 10-24-2023 12:53-0400 Body weight 73.48 kg MD Susan Ayala Work Phone: [facility] 10-24-2023 12:53-0400 Diastolic blood pressure 83 mm[Hg] MD Susan Ayala Work Phone: [facility] 10-24-2023 12:53-0400 Heart rate 85 /min MD Susan Ayala Work Phone: [facility] 10-24-2023 12:53-0400 Respiratory rate 16 /min MD Susan Ayala Work Phone: [facility] 10-24-2023 12:53-0400 SaO2% (BldA) [Mass fraction] 98 % MD Susan Ayala Work Phone: [facility] 10-24-2023 12:53-0400 Systolic blood pressure 137 mm[Hg] MD Susan Ayala Work Phone: [facility] 10-11-2023 13:21-0400 Body height 162.56 cm MD Susan Ayala Work Phone: [facility] 10-11-2023 13:21-0400 Body mass index (BMI) [Ratio] 28.3 kg/m2 MD Susan Ayala Work Phone: [facility] 10-11-2023 13:21-0400 Body temperature 98 [degF] MD Susan Ayala Work Phone: [facility] 10-11-2023 13:21-0400 Body weight 74.84 kg MD Susan Ayala Work Phone: [facility] 10-11-2023 13:21-0400 Diastolic blood pressure 79 mm[Hg] MD Susan Ayala Work Phone: [facility] 10-11-2023 13:21-0400 Heart rate 102 /min MD Susan Ayala Work Phone: [facility] 10-11-2023 13:21-0400 Respiratory rate 20 /min MD Susan Ayala Work Phone: [facility] 10-11-2023 13:21-0400 SaO2% (BldA) [Mass fraction] 98 % MD Susan Ayala Work Phone: [facility] 10-11-2023 13:21-0400 Systolic blood pressure 133 mm[Hg] MD Susan Ayala Work Phone: [facility] 10-03-2023 13:01-0400 Body height 162.56 cm MD Susan Ayala Work Phone: [facility] 10-03-2023 13:01-0400 Body mass index (BMI) [Ratio] 28.5 kg/m2 MD Susan Ayala Work Phone: [facility] 10-03-2023 13:01-0400 Body weight 75.29 kg MD Susan Ayala Work Phone: [facility] 10-03-2023 13:01-0400 Diastolic blood pressure 73 mm[Hg] MD Susan Ayala Work Phone: [facility] 10-03-2023 13:01-0400 Heart rate 83 /min MD Susan Ayala Work Phone: [facility] 10-03-2023 13:01-0400 Systolic blood pressure 125 mm[Hg] MD Susan Ayala Work Phone: [facility] 09-21-2023 10:59-0400 Body height 162.56 cm MD Susan Ayala Work Phone: [facility] 09-21-2023 10:59-0400 Body mass index (BMI) [Ratio] 28.1 kg/m2 MD Susan Ayala Work Phone: [facility] 09-21-2023 10:59-0400 Body temperature 98 [degF] MD Susan Ayala Work Phone: [facility] 09-21-2023 10:59-0400 Body weight 74.38 kg MD Susan Ayala Work Phone: [facility] 09-21-2023 10:59-0400 Diastolic blood pressure 80 mm[Hg] MD Susan Ayala Work Phone: [facility] 09-21-2023 10:59-0400 Heart rate 77 /min MD Susan Ayala Work Phone: [facility] 09-21-2023 10:59-0400 Respiratory rate 18 /min MD Susan Ayala Work Phone: [facility] 09-21-2023 10:59-0400 SaO2% (BldA) [Mass fraction] 100 % MD Susan Ayala Work Phone: [facility] 09-21-2023 10:59-0400 Systolic blood pressure 131 mm[Hg] MD Susan Ayala Work Phone: [facility] 08-29-2023 13:44-0400 Diastolic blood pressure 82 mm[Hg] MD Susan Ayala Work Phone: [facility] 08-29-2023 13:44-0400 Heart rate 67 /min MD Susan Ayala Work Phone: [facility] 08-29-2023 13:44-0400 Respiratory rate 16 /min MD Susan Ayala Work Phone: [facility] 08-29-2023 13:44-0400 SaO2% (BldA) [Mass fraction] 98 % MD Susan Ayala Work Phone: [facility] 08-29-2023 13:44-0400 Systolic blood pressure 146 mm[Hg] MD Susan Ayala Work Phone: [facility] 08-29-2023 12:59-0400 Body temperature 97 [degF] MD Susan Ayala Work Phone: [facility] 08-29-2023 12:29-0400 Inhaled oxygen flow rate 8 L/min MD Susan Ayala Work Phone: [facility] 08-29-2023 11:31-0400 Body weight 74.84 kg MD Susan Ayala Work Phone: [facility] 08-29-2023 11:15-0400 Body height 162.56 cm MD Susan Ayala Work Phone: [facility] 08-11-2023 10:40-0400 Body height 162.56 cm MD Susan Ayala Work Phone: [facility] 08-11-2023 10:40-0400 Body mass index (BMI) [Ratio] 28.1 kg/m2 MD Susan Ayala Work Phone: [facility] 08-11-2023 10:40-0400 Body temperature 97.5 [degF] MD Susan Ayala Work Phone: [facility] 08-11-2023 10:40-0400 Body weight 74.44 kg MD Susan Ayala Work Phone: [facility] 08-11-2023 10:40-0400 Diastolic blood pressure 80 mm[Hg] MD Susan Ayala Work Phone: [facility] 08-11-2023 10:40-0400 Heart rate 85 /min MD Susan Ayala Work Phone: [facility] 08-11-2023 10:40-0400 Systolic blood pressure 121 mm[Hg] MD Susan Ayala Work Phone: [facility] 08-01-2023 13:50-0400 Diastolic blood pressure 78 mm[Hg] MD Susan Ayala Work Phone: [facility] 08-01-2023 13:50-0400 Heart rate 72 /min MD Susan Ayala Work Phone: [facility] 08-01-2023 13:50-0400 Respiratory rate 16 /min MD Susan Ayala Work Phone: [facility] 08-01-2023 13:50-0400 SaO2% (BldA) [Mass fraction] 100 % MD Susan Ayala Work Phone: [facility] 08-01-2023 13:50-0400 Systolic blood pressure 138 mm[Hg] MD Susan Ayala Work Phone: [facility] 08-01-2023 12:58-0400 Body temperature 98.4 [degF] MD Susan Ayala Work Phone: [facility] 08-01-2023 12:33-0400 Inhaled oxygen flow rate 8 L/min MD Susan Ayala Work Phone: [facility] 08-01-2023 11:260400 Body height 162.56 cm MD Susan Ayala Work Phone: [facility] 08-01-2023 11:26-0400 Body mass index (BMI) [Ratio] 28.3 kg/m2 MD Susan Ayala Work Phone: [facility] 08-01-2023 11:26-0400 Body weight 74.84 kg MD Susan Ayala Work Phone: [facility] 07-11-2023 14:28-0500 Body height 162.56 cm MD Susan Ayala Work Phone: [facility] 07-11-2023 14:28-0500 Body mass index (BMI) [Ratio] 28.5 kg/m2 MD Susan Ayala Work Phone: [facility] 07-11-2023 14:28-0500 Body weight 75.46 kg MD Susan Ayala Work Phone: [facility] 07-11-2023 14:28-0500 Diastolic blood pressure 75 mm[Hg] MD Susan Ayala Work Phone: [facility] 07-11-2023 14:28-0500 Heart rate 93 /min MD Susan Ayala Work Phone: [facility] 07-11-2023 14:28-0500 Systolic blood pressure 138 mm[Hg] MD Susan Ayala Work Phone: [facility] 05-16-2023 10:00-0500 Body temperature 98.2 [degF] MD Susan Ayala Work Phone: [facility] 05-16-2023 10:00-0500 Diastolic blood pressure 78 mm[Hg] MD Susan Ayala Work Phone: [facility] 05-16-2023 10:00-0500 Heart rate 87 /min MD Susan Ayala Work Phone: [facility] 05-16-2023 10:00-0500 Respiratory rate 18 /min MD Susan Ayala Work Phone: [facility] 05-16-2023 10:00-0500 SaO2% (BldA) [Mass fraction] 99 % MD Susan Ayala Work Phone: [facility] 05-16-2023 10:00-0500 Systolic blood pressure 136 mm[Hg] MD Susan Ayala Work Phone: [facility] 05-02-2023 16:16-0500 Body height 162.56 cm MD Susan Ayala Work Phone: [facility] 05-02-2023 16:16-0500 Body weight 75.7 kg MD Susan Ayala Work Phone: [facility] 03-27-2023 14:00-0500 Body height 162.56 cm Susan Ayala Other [facility] [employer] Other 03-27-2023 14:00-0500 Body mass index (BMI) [Ratio] 28.49 kg/m2 Susan Ayala Other [facility] [employer] Other 03-27-2023 14:00-0500 Body weight 75.3 kg Susan Ayala Other [employer] Other 03-27-2023 14:00-0500 Diastolic blood pressure 84 mm[Hg] Susan Ayala Other [employer] Other 03-27-2023 14:00-0500 Systolic blood pressure 136 mm[Hg] Susan Ayala Other [employer] Other 02-06-2023 10:30-0400 Body height 162.56 cm Susan Ayala Other [employer] Other 02-06-2023 10:30-0400 Body mass index (BMI) [Ratio] 29.01 kg/m2 Susan Ayala Other [employer] Other 02-06-2023 10:30-0400 Body weight 76.66 kg Susan Ayala Other [employer] Other 02-06-2023 10:30-0400 Diastolic blood pressure 84 mm[Hg] Susan Ayala Other [employer] Other 02-06-2023 10:30-0400 Systolic blood pressure 144 mm[Hg] Susan Ayala Other [employer] Other 12-28-2022 09:30-0400 Body height 162.56 cm Susan Ayala Other [employer] Other 12-28-2022 09:30-0400 Body mass index (BMI) [Ratio] 28.15 kg/m2 Susan Ayala Other [employer] Other 12-28-2022 09:30-0400 Body weight 74.39 kg Susan Ayala Other [employer] Other 12-28-2022 09:30-0400 Diastolic blood pressure 78 mm[Hg] Susan Ayala Other [employer] Other 12-28-2022 09:30-0400 SaO2% (BldA) [Mass fraction] 96 % Susan Ayala Other [employer] Other 12-28-2022 09:30-0400 Systolic blood pressure 128 mm[Hg] Susan Ayala Other [employer] Other 09-13-2022 15:00-0400 Body height 162.56 cm Susan Ayala Other [employer] Other 09-13-2022 15:00-0400 Body mass index (BMI) [Ratio] 28.32 kg/m2 Susan Ayala Other [employer] Other 09-13-2022 15:00-0400 Body weight 74.84 kg Susan Ayala Other [employer] Other 09-13-2022 15:00-0400 Diastolic blood pressure 74 mm[Hg] Susan Ayala Other [employer] Other 09-13-2022 15:00-0400 SaO2% (BldA) [Mass fraction] 98 % Susan Ayala Other [employer] Other 09-13-2022 15:00-0400 Systolic blood pressure 142 mm[Hg] Susan Ayala Other [employer] Other 07-06-2022 10:00-0500 Body height 162.56 cm Susan Ayala Other [employer] Other 07-06-2022 10:00-0500 Body mass index (BMI) [Ratio] 28.66 kg/m2 Susan Ayala Other [employer] Other 07-06-2022 10:00-0500 Body weight 75.75 kg Susan Ayala Other [employer] Other 07-06-2022 10:00-0500 Diastolic blood pressure 62 mm[Hg] Susan Ayala Other [employer] Other 07-06-2022 10:00-0500 SaO2% (BldA) [Mass fraction] 98 % Susan Ayala Other [employer] Other 07-06-2022 10:00-0500 Systolic blood pressure 110 mm[Hg] Susan Ayala Other [employer] Other 06-14-2022 11:00-0500 Body height 162.56 cm Susan Ayala Other [employer] Other 06-14-2022 11:00-0500 Body mass index (BMI) [Ratio] 29.01 kg/m2 Susan Ayala Other [employer] Other 06-14-2022 11:00-0500 Body weight 76.66 kg Susan Ayala Other [employer] Other 06-14-2022 11:00-0500 Diastolic blood pressure 76 mm[Hg] Susan Ayala Other [employer] Other 06-14-2022 11:00-0500 SaO2% (BldA) [Mass fraction] 98 % Susan Ayala Other [employer] Other 06-14-2022 11:00-0500 Systolic blood pressure 138 mm[Hg] Susan Ayala Other [employer] Other Encounters Encounter Date Encounter Type Care Provider Facility Start: 03-25-2024 End: 03-25-2024 ambulatory Susan Ayala MD Work Phone: [facility] Work Phone: Start: 03-25-2024 End: 03-25-2024 Patient encounter procedure Susan Ayala MD Work Phone: [facility] Work Phone: Start: 03-22-2024 Registered Recurring Susan bailon MD Work Phone: [facility] Work Phone: Start: 03-22-2024 End: 03-22-2024 ambulatory Susan Ayala MD Work Phone: [facility] Work Phone: Start: 03-22-2024 End: 03-22-2024 Patient encounter procedure Susan Ayala MD Work Phone: [facility] Work Phone: Start: 03-16-2024 End: 03-16-2024 ambulatory Susan Ayala MD Work Phone: [facility] Work Phone: Start: 03-16-2024 End: 03-16-2024 Patient encounter procedure Susan Ayala MD Work Phone: [facility] Work Phone: Start: 03-07-2024 End: 03-07-2024 Bamboo [...] Not Available Start: 02-27-[address] Facility:[facility] Start: 02-27-2024 Registered Recurring Susan bailon MD Work Phone: [facility] Start: 02-20-2024 End: 02-20-2024 ambulatory MD Susan Ayala Work Phone: [facility] Work Phone: Start: 02-20-2024 End: 02-20-2024 Patient encounter procedure MD Susan Ayala Work Phone: [facility] Work Phone: Start: 02-15-2024 Registered Recurring MD Susan Ayala Work Phone: [facility] Work Phone: Start: 02-15-2024 End: 02-15-2024 ambulatory MD Susan Ayala Work Phone: [facility] Work Phone: Start: 02-15-2024 End: 02-15-2024 Patient encounter procedure MD Susan Ayala Work Phone: [facility] Work Phone: Start: 02-08-2024 Non-patient / Non-visit MD Susan Ayala Work Phone: [facility] Work Phone: Start: 01-23-2024 Registered Recurring MD Susan Ayala Work Phone: [facility] Start: 01-03-2024 End: 01-03-2024 ambulatory MD Susan Ayala Work Phone: [facility] Work Phone: Start: 01-03-2024 End: 01-03-2024 Patient encounter procedure MD Susan Ayala Work Phone: [facility] Work Phone: Start: 01-03-2024 Registered Recurring MD Susan Ayala Work Phone: [facility] Work Phone: Start: 12-28-2023 End: 12-28-2023 ambulatory GILSON KENYON Not Available Start: 12-22-2023 Non-patient / Non-visit MD Susan Ayala Work Phone: [facility] Work Phone: Start: 12-21-2023 End: 12-21-2023 ambulatory MD Susan Ayala Work Phone: [facility] Work Phone: Start: 12-21-2023 End: 12-21-2023 Patient encounter procedure MD Susan Ayala Work Phone: [facility] Work Phone: Start: 12-21-2023 Registered Recurring MD [facility] Work Phone: Start: 12-11-2023 Registered Recurring MD Susan Ayala Work Phone: [facility] Start: 12-06-2023 Non-patient / Non-visit MD Susan Ayala Work Phone: [facility] Work Phone: Start: 12-05-2023 Non-patient / Non-visit MD Susan Ayala Work Phone: [facility] Work Phone: Start: 12-05-2023 End: 12-05-2023 Admission to same day surgery center MD Susan Ayala Work Phone: [facility] Work Phone: Start: 12-05-2023 End: 12-05-2023 ambulatory MD Susan Ayala Work Phone: [facility] Work Phone: Start: 12-04-2023 Registered Recurring MD Susan Ayala Work Phone: [facility] Work Phone: Start: 11-29-2023 Non-patient / Non-visit MD Susan Ayala Work Phone: [facility] Work Phone: Start: 11-27-2023 Non-patient / Non-visit MD Susan Ayala Work Phone: [facility] Work Phone: Start: 11-22-2023 Non-patient / Non-visit MD Susan Ayala Work Phone: [facility] Work Phone: Start: 11-20-2023 Non-patient / Non-visit MD Susan Ayala Work Phone: [facility] Work Phone: Start: 11-15-2023 Non-patient / Non-visit MD Susan Ayala Work Phone: [facility] Work Phone: Start: 11-13-2023 Non-patient / Non-visit MD Susan Ayala Work Phone: [facility] Work Phone: Start: 11-08-2023 Non-patient / Non-visit MD Susan Ayala Work Phone: [facility] Work Phone: Start: 11-02-2023 Non-patient / Non-visit MD Susan Ayala Work Phone: [facility] Work Phone: Start: 10-31-2023 Registered Recurring MD Susan Ayala Work Phone: [facility] Start: 10-25-2023 End: 10-25-2023 ambulatory GERALDO GARCÍA Not Available Start: 10-24-2023 End: 10-24-2023 Patient encounter procedure MD Susan Ayala Work Phone: [facility] Work Phone: Start: 10-19-2023 End: 10-19-2023 ambulatory GILSON KENYON Not Available Start: 10-11-2023 End: 10-11-2023 ambulatory MD Susan Ayala Work Phone: [facility] Work Phone: Start: 10-11-2023 End: 10-11-2023 Patient encounter procedure MD Susan Ayala Work Phone: [facility] Work Phone: Start: 10-11-2023 Registered Recurring MD Susan Ayala Work Phone: [facility] Work Phone: Start: 10-03-2023 End: 10-03-2023 ambulatory MD Susan Ayala Work Phone: [facility] Work Phone: Start: 10-03-2023 End: 10-03-2023 Patient encounter procedure MD Susan Ayala Work Phone: [facility] Work Phone: Start: 09-26-2023 Non-patient / Non-visit MD Susan Ayala Work Phone: [facility] Work Phone: Start: 09-21-2023 End: 09-21-2023 Patient encounter procedure MD Susan Ayala Work Phone: [facility] Work Phone: Start: 09-21-2023 Registered Recurring MD Susan Ayala Work Phone: [facility] Work Phone: Start: 09-20-2023 End: 09-20-2023 ambulatory GERALDO H ITZKOWITZ Not Available Start: 09-19-2023 Registered Recurring MD Susan Ayala Work Phone: [facility] Start: 09-06-2023 End: 09-06-2023 ambulatory GERALDO H ITZKOWITZ Not Available Start: 08-29-2023 End: 08-29-2023 Admission to same day surgery center MD Susan Ayala Work Phone: [facility] Start: 08-29-2023 End: 08-29-2023 ambulatory MD Susan Ayala Work Phone: [facility] Work Phone: Start: 08-16-2023 End: 08-16-2023 ambulatory GERALDO H ITZKOWITZ Not Available Start: 08-11-2023 End: 08-11-2023 ambulatory MD Susan Ayala Work Phone: [facility] Work Phone: Start: 08-11-2023 End: 08-11-2023 Patient encounter procedure MD Susan Ayala Work Phone: [facility] Work Phone: Start: 08-10-2023 End: 08-10-2023 ambulatory GILSON KENYON Not Available Start: 08-09-2023 End: 08-09-2023 ambulatory GERALDO H ITZKOWITZ Not Available Start: 08-01-2023 End: 08-01-2023 Admission to same day surgery center MD Susan Ayala Work Phone: [facility] Main Colon Start: 08-01-2023 End: 08-01-2023 ambulatory MD Susan Ayala Work Phone: [facility] Work Phone: Start: 07-24-2023 Non-patient / Non-visit MD Susan Ayala Work Phone: [facility] Work Phone: Start: 07-24-2023 End: 07-24-2023 ambulatory CHEL JOSEPH Not Available Start: 07-19-2023 End: 07-19-2023 Patient encounter procedure MD Susan Ayala Work Phone: [facility] Work Phone: Start: 07-19-2023 End: 07-19-2023 ambulatory MD Susan Ayala Work Phone: [facility] Work Phone: Start: 07-12-2023 End: 07-12-2023 Admission to same day surgery center MD Susan Ayala Work Phone: [facility] Car Start: 07-12-2023 End: 07-12-2023 ambulatory GERALDO H RAQUEL Not Available Start: 07-11-2023 End: 07-11-2023 Patient encounter procedure MD Susan Ayala Work Phone: [facility] Work [facility] Start: 07-04-2023 Registered Recurring MD Susan Ayala Work Phone: [facility] Start: 06-29-2023 End: 07-02-2023 ambulatory ADAMA ITZDEIRDRETZ [facility] jovanna Start: 06-01-2023 End: 06-01-2023 ambulatory GILSONJen KENYON Not Available Start: 05-30-2023 Registered Recurring MD Susan Ayala Work Phone: [facility] Start: 05-16-2023 End: 05-16-2023 Admission to same day surgery center MD Susan Ayala Work Phone: [facility] Work Phone: Start: 05-16-2023 End: 05-16-2023 ambulatory MD Susan Ayala Work Phone: [facility] Work Phone: Start: 05-02-2023 End: 05-02-2023 Patient encounter procedure MD Susan Ayala Work Phone: [facility] Work Phone: Start: 05-02-2023 End: 05-02-2023 ambulatory Geraldo Itzkowitz Facility:[facility] Start: 04-28-2023 End: 04-28-2023 ambulatory GERALDO H ITZKOWITZ Not Available Start: 04-10-2023 End: 04-10-2023 ambulatory Susan Ayala Other [facility] Other Start: 04-10-2023 Telephone encounter Susan Ayala [facility] Start: 04-05-2023 End: 04-05-2023 ambulatory GERALDO H ITZKOWITZ Not Available Start: 03-27-2023 End: 03-27-2023 ambulatory Susan Ayala Other [facility] Other Start: 03-27-2023 Patient encounter procedure Susan Ayala [facility] Start: 03-27-2023 Telephone encounter Susan Ayala [facility] Start: 03-21-2023 End: 03-21-2023 ambulatory Susan Ayala Other [facility] Other Start: 03-21-2023 Telephone encounter Susan Ayala [facility] Start: 03-10-2023 (Televisit) Televisit Susan Mena [facility] Start: 03-10-2023 End: 03-10-2023 ambulatory Susan Ayala Other [facility] Other Start: 03-06-2023 End: 03-06-2023 ambulatory Susan Ayala Other [facility] Other Start: 03-06-2023 Telephone encounter Susan Ayala [facility] Start: 02-06-2023 End: 02-06-2023 ambulatory Susan Ayala Other [facility] Other Start: 02-06-2023 Office outpatient visit 15 minutes Susan Ayala [facility] Start: 02-06-2023 Telephone encounter Susan Ayala [facility] Start: 12-28-2022 End: 12-28-2022 ambulatory Susan Ayala Other [facility] Other Start: 12-28-2022 Office outpatient visit 15 minutes Susan Ayala [facility] Start: 09-13-2022 End: 09-13-2022 ambulatory Susan Ayala Other [facility] Other Start: 09-13-2022 Office outpatient visit 15 minutes Susan Ayala [facility] Start: 08-26-2022 End: 08-27-[address] LITTLE STAFFORD . Facility:[facility] Start: 08-01-2022 End: 08-02-[address] LITTLE STAFFORD . Facility:[facility] Start: 07-18-2022 End: 07-18-[address] LITTLE STAFFORD . Facility:[facility] Start: 07-12-2022 End: 07-12-2022 ambulatory Susan Ayala Other [facility] Other Start: 07-12-2022 Telephone encounter Susan Ayala [facility] Start: 07-06-2022 End: 07-06-2022 ambulatory Susan Ayala Other [facility] Other Start: 07-06-2022 Office outpatient visit 15 minutes Susan Ayala [facility] Start: 06-21-2022 End: 06-21-2022 ambulatory Susan Ayala Other [facility] Other Start: 06-21-2022 Telephone encounter Susan Ayala [facility] Start: 06-14-2022 Office outpatient visit 15 minutes Susan Ayala [facility] Start: 06-14-2022 End: 06-14-2022 ambulatory MD Susan Ayala Work Phone: [facility] Work Phone: Start: 06-14-2022 End: 06-14-2022 Departed Referred MD Susan Ayala Work Phone: [facility]Lab Main Colon Work Phone: Start: 04-25-2022 Adult health examination Susan Aylaa Other [facility] Other Start: 04-25-2022 Gynecological examination normal Susan Ayala Other [facility] Other Start: 04-21-2022 End: 04-21-[address] [...] Screening for malign ant neoplasm of cervix [facility] Start: 07-31-2024 Screening for malign ant neoplasm of breast Mammogram [facility] Start: 05-16-2024 End: 05-16-2024 Patient encounter procedure 05/16/2024 1:50 PM EST Procedure Visit [facility] [address] [facility] [address] [place] [address] Gilson Kenyon DPM [address] [address] [facility] Start: 03-07-2024 End: 03-07-2024 Patient encounter procedure 03/07/2024 1:30 PM EDT Procedure Visit [facility] [address] [place] [address] [place] [address] Gilson Kenyon DPM [address] [address] Pain due to onychomycosis of toenails of both feet (Primary Dx) [facility] Comment on above: 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 (Primary Dx) Start: 01-07-2024 Influenza vaccination Influenza Vacc ine (#1) [facility] Start: 12-05-2023 [facility] Start: 10-11-2023 Patient referral [facility] Work Phone: Start: 10-09-2023 Patient referral [facility] Work Phone: Start: 08-29-2023 [facility] Start: 08-29-2023 End: 08-29-2023 [facility] Start: 08-01-2023 [facility] Start: 08-01-2023 [facility] Start: 05-16-2023 Lumpectomy of left breast OR Breast Bx, Lumpectomy, Mass Excision (Left) [facility] Start: 06-14-2022 [facility] Start: 1965 Screening for malign ant neoplasm of colon [facility] Atopobium vaginae DN A [Presence] in Vaginal fluid by HIMANSHU with probe detection [facility] Bacterial vaginosis associated bacterium 2 DNA [Presence] in Vaginal fluid by HIMANSHU with probe detection [facility] Basophils [#/volume] in Blood by Automated count [facility] Basophils/100 leukocytes in Blood by Automated count [facility] Comprehensive metabo lic 1999 panel - Serum or Plasma [facility] Comprehensive metabo lic 1999 panel - Serum or Plasma [facility] Eosinophils/100 leukocytes in Blood by Automated count [facility] Erythrocyte distribution width [Ratio] by Automated count [facility] Erythrocytes [#/volu me] in Blood [facility] Hematocrit [Volume Fraction] of Blood [facility] Hemoglobin [Mass/volume] in Blood [facility] Hepatic function panel [facility] Leukocytes [#/volume ] corrected for nucleated erythrocytes in Blood by Automated coun [facility] Leukocytes [#/volume ] in Blood [facility] Lymphocytes [#/volum e] in Blood by Automated count [facility] Lymphocytes/100 leukocytes in Blood by Automated count [facility] MCH [Entitic mass] b y Automated count [facility] MCHC [Mass/volume] b y Automated count [facility] MCV [Entitic volume] by Automated count [facility] Megasphaera sp type 1 DNA [Presence] in Vaginal fluid by HIMANSHU with probe detection [facility] MG Breast - left Diagnostic [facility] Monocytes [#/volume] in Blood by Automated count [facility] Monocytes/100 leukocytes in Blood by Automated count [facility] Neutrophils [#/volum e] in Blood by Automated count [facility] Neutrophils/100 leukocytes in Blood by Automated count [facility] Nucleated erythrocyt es [Presence] in Blood by Automated count [facility] Patient Education Colon polyps H emorrhoids (DC) Diverticulosis (DC) Know your Meds [facility] Work Phone: Patient referral [facility] Work Phone: Platelet mean volume [Entitic volume] in Blood by Automated count [facility] Platelets [#/volume] in Blood [facility] XR Humerus - right Views [facility] Immunizations Immunization Date Immunization Notes Care Provider Fa cili 02-21-2024 influenza virus vaccine, unspecified formulation Gilson Kenyon DPM Work Phone: [facility] 02-28-2022 COVID-19 mRNA Bivale nt Booster (Pfizer) MD Susan Ayala Work Phone: [facility] 04-20-2021 COVID-19 mRNA, Comirnaty (Pfizer) MD Susan Ayala Work Phone: [facility] 08-27-2020 COVID-19 mRNA, Comirnaty (Pfizer) MD Susan Ayala Work Phone: [facility] 08-07-2020 COVID-19 mRNA, Comirnaty (Pfizer) MD Susan Ayala Work Phone: [facility] Payers Date Payer Category Payer Self-pay [id number] 2019 Medicare (Managed Care) [employer]ICARE ADVANTAGE [id number] 2017 Medicaid MEDICAID [facility] [id number] 1964 Unknown [id number] 2.16.840.1.927807.3.579.2. 593 1964 Unknown [id number] 2.16.840.1.282811.3.579.2. 593 1964 Unknown [id number] 2.16.840.1.147480.3.579.2. 593 1964 Unknown [id number] 2.16.840.1.253199.3.579.2. 593 1964 Unknown [id number] 2.16.840.1.443570.3.579.2. 593 1964 Unknown [id number] 2.16.840.1.569606.3.579.2. 593 1964 Unknown [id number] 2.16.840.1.690661.3.579.2. 593 1964 Unknown [id number] 2.16.840.1.833697.3.579.2. 177 1964 Unknown [id number] 2.16.840.1.470084.3.579.2. 1259 1964 Unknown [id number] 2.16.840.1.329622.3.579.2. 1259 1964 Unknown [id number] 2.16.840.1.523936.3.579.2. 1258 1964 Unknown [id number] 2.16.840.1.344926.3.579.2. 1258 1964 Unknown [id number] 2.16.840.1.143053.3.579.2. 1258 1964 Unknown [id number] 2.16.840.1.008167.3.579.2. 1258 1964 Unknown [id number] 2.16.840.1.901989.3.579.2. 1258 1964 Unknown [id number] 2.16.840.1.983207.3.579.2. 1258 1964 Unknown [id number] 2.16.840.1.175201.3.579.2. 1258 1964 Unknown [id number] 2.16.840.1.445424.3.579.2. 1258 1964 Unknown [id number] 2.16.840.1.868325.3.579.2. 1258 1964 Unknown [id number] 2.16.840.1.549883.3.579.2. 1258 1964 Unknown [id number] 2.16.840.1.084639.3.579.2. 1258 1964 Unknown [id number] 2.16.840.1.250167.3.579.2. 1258 1960 Medicaid [id number] 1960 Medicare [id number] 2.16.840.1.297868.19 Medicare [id number] Unknown [id number] 2.16.840.1.543106.3.579.2. 531 Unknown [id number] 2.16.840.1.574713.3.579.2. 531 Unknown [id number] 2.16.840.1.293652.3.579.2. 531 Unknown [id number] 2.16.840.1.602353.3.579.2. 531 Unknown [id number] 2.16.840.1.659361.3.579.2. 531 Unknown [id number] 2.16.840.1.162304.3.579.2. 531 Unknown [id number] 2.16.840.1.049281.3.579.2. 531 Unknown [id number] 2.16.840.1.730148.3.579.2. 531 Unknown [id number] 2.16.840.1.977006.3.579.2. 531 Social History Date Type Detail Facility Tobacco smoking stat [facility] Unknown if ever smoked [facility] Work Phone: Start: 1965 Sex Assigned At Female F [facility] Start: 12-28-2023 End: 03-07-2024 Sex Assigned At [facility] Other Start: 05-02-2023 End: 03-16-2024 Tobacco smoking status AZIS Ex-smoker (finding) [facility] End: 05-08-2016 History of tobacco use Current smoker [facility] End: 05-08-2016 History of tobacco use Cigarette Smoker [facility] Start: 12-28-2023 End: 03-07-2024 Alcoholic beverage intake Ex-drinker (finding) [facility] Start: 12-28-2023 End: 03-07-2024 History of Social function [facility] Start: 1965 Sex assigned at Not on file N [facility] Start: 03-16-2024 End: 03-25-2024 Sex Female (finding) [facility] Medical Equipment Procedure Code Equipment Code Equipment Origin al Text Equipment Identifier Dates Biopsy, breast, with lumpectomy Imaging lesion localization marker, implantable [id number] FDA Start: 08-01-2023 Goals Date Patient Goal Desired Activity /State Clinical Notes 06-14-2022 to 03-07-2024 Gilson Kenyon, IDALMIS - 03/07/2024 1:30 PM EDT Note Date [...] Breast cancer (CMS/HCC) 03/2023 Left Breast IDC ER/NC+ Her 2 pend Hyperlipidemia (CMS/HCC) Hypothyroid (CMS/HCC) [...] condition and treatment of condition. Continue with [id number] creams to feet p.r.n. Gilson Kenyon DPM documented in this encounter [facility] 01-03-2024 Evaluation note Diagnosis Onset Date Resolution [...] Sore throat noneactive March 16, 2024 9:09am [facility] Work Phone: 1(761) 338-900708-28-2024 Evaluation note* Diagnosis Onset Date Resolution Status [...] 10:25am Osteopenia acute March 22, 2024 10:25am [facility] Work Phone: 1(418) 115-243708-28-2024 Evaluation note* Diagnosis Onset Date Resolution Status [...] 10:25am Osteopenia acute March 22, 2024 10:25am [facility] Work Phone: 1(703) 403-816308-15-2024 Chief complaint+Reason for visit Narrative * Chief [...] Invasive ductal carcinoma of left breast Osteopenia [facility] Work Phone: 1(682) 177-452207-30-2024 [facility]* Encounter Date Diagnosis Assessment Notes Treatment Notes Treatment Clinical Notes Mar, Invasive ductal carcinoma of left breast (ICD-10 - C50.912) Reviewed results. Grade 1. D/w daughter on speaker - phone. Appt made w Dr. García on 04/05 at 2pm. Path report and mamm reports sent to their office. [facility] Other 11-14-2023 Evaluation note* Encounter Date Diagnosis Assessment Notes Treatment Notes Treatment Clinical Notes Mar, Elevated triglycerides with high cholesterol (ICD-10 - E78.2) [facility] Other 11-03-2023 Evaluation note* Encounter Date Diagnosis [...] verbalized understanding and agreement with treatment plan. [facility] Other 10-02-2023 Evaluation note* Encounter Date Diagnosis Assessment Notes Treatment Notes Treatment Clinical Notes Feb, Abnormal mammogram of left breast (ICD-10 - R92.8) [facility] Other 10-02-2023 Evaluation note* Encounter Date Diagnosis Assessment Notes Treatment Notes Treatment Clinical Notes Feb, Elevated triglycerides with high cholesterol (ICD-10 - E78.2) Called pharmacy. They do not carry the med she is interested in the [place]. Changed rx and sent to [facility]. [facility] Other 08-23-2023 Evaluation note* Encounter Date Diagnosis Assessment Notes Treatment Notes Treatment Clinical Notes Dec, Elevated fasting glucose (ICD-10 - R73.01) Pt states Dr. Blanca is helping her wean the zyprexa. Will recheck labs listed below and return for OV in Apr. Dec, Hypothyroidism (ICD-10 - E03.9) Labs reviewed and normal. Continue present medication [facility] Other 05-09-2023 Evaluation note* Encounter Date Diagnosis Assessment Notes Treatment Notes Treatment Clinical Notes September, Skin candidiasis (ICD-10 - B37.2) Very mild erythema and discoloration. Recommend OTC Gold Valadez Powder. Call if not improving. [facility] Other 03-01-2023 Evaluation note* Encounter Date Diagnosis [...] w him from our last office visit. [facility] Other 02-07-2023 Evaluation note* Encounter Date Diagnosis Assessment Notes Treatment Notes Treatment Clinical Notes Jun, Acute vaginitis (ICD-10 - N76.0) New problem - sent culture for yeast/BV/trich. will call in 1-2 days when results are back. [facility] Other Chief complaint+Reason for visit Narrative* Chief [...] Osteopenia Invasive ductal carcinoma of left breast [facility] Work Phone: Evaluation noteNo assessment information available [facility] Work Phone: Evaluation noteNo [employer] Other Evaluation note* Diagnosis Onset Date Resolution Status Hematoma of breast following procedure acute [facility] Work Phone: Evaluation note* Diagnosis Onset Date Resolution Status Hematoma of breast following procedure acute Allergic rhinitis acute GERD (gastroesophageal reflux disease) acute Hyperlipidemia acute [facility] Work Phone: Evaluation note* Diagnosis Onset Date Resolution Status Hematoma of breast following procedure acute Allergic rhinitis acute GERD (gastroesophageal reflux disease) acute Hyperlipidemia acute Invasive ductal carcinoma of left breast acute Osteopenia acute [facility] Work Phone: Evaluation note* Diagnosis Onset Date Resolution Status Allergic rhinitis acute GERD (gastroesophageal reflux disease) acute Hyperlipidemia acute Invasive ductal carcinoma of left breast acute Osteopenia acute Screening for colon cancer a cute Type 2 diabetes mellitus with hyperglycemia acute Invasive ductal carcinoma of left breast acute Osteopenia acute [facility] Work Phone: Evaluation note* Diagnosis Onset Date Resolution Status Invasive ductal carcinoma of left breast acute Osteopenia acute Screening for colon cancer a cute Type 2 diabetes mellitus with hyperglycemia acute Invasive ductal carcinoma of left breast acute Osteopenia acute Invasive ductal carcinoma of left breast acute [facility] Work Phone: evaluation note* Diagnosis Onset Date Resolution Status Screening for colon cancer a cute Type 2 diabetes mellitus with hyperglycemia acute Invasive ductal carcinoma of left breast acute Osteopenia acute Invasive ductal carcinoma of left breast acute Invasive ductal carcinoma of left breast acute Osteopenia acute [facility] Work Phone: evaluation note* Diagnosis Onset Date Resolution Status Invasive ductal carcinoma of left breast acute Osteopenia acute Invasive ductal carcinoma of left breast acute Invasive ductal carcinoma of left breast acute Osteopenia acute Invasive ductal carcinoma of left breast acute [facility] Work Phone: Evaluation note* Diagnosis Onset Date Resolution Status Invasive ductal carcinoma of left breast acute Osteopenia acute Invasive ductal carcinoma of left breast acute Invasive ductal carcinoma of left breast acute Osteopenia acute [facility] Work Phone: Evaluation note* Diagnosis Onset Date Resolution Status Invasive ductal carcinoma of left breast acute Osteopenia acute Invasive ductal carcinoma of left breast acute Invasive ductal carcinoma of left breast acute Osteopenia acute Right arm pain acute [facility] Work Phone: Evaluation note* Diagnosis Pain due to onychomycosis of toenails of both feet- Primary documented in this encounter [facility] Author Lisa Rubalcava [facility] December 05, 2023 7:53am Note Date/Time December 05, 2023 7:54 am [facility] [address] [place] [address] Gastroenterology H&P Signed Patient: Melony Manley MR#: [id number] : 1965 Acct:[id number] Age/Sex: 58 / F Adm Date: 4 Loc: Room: Type: [facility] Attending Dr: Lisa Rubalcava DO Copies to: [...] signed by Lisa Rubalcava DO> 12/05/23 0753 [facility] Work Phone: History general Narrative - Reported* Type Description Date Medical History Gastroesophageal ref lux disease, esophagitis presence not specified Medical History Bipolar 1 disorder, depressed Medical History Acquired hypothyroidism Medical History Hypercholesterolemia Medical History BMI 28.0-28.9,adult Medical History Hypothyroidism Medical History Chronic kidney disease, stage 3 unspecified Medical History Elevated fasting glucose Medical History Pain of right upper arm 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 Medical History Vaginal atrophy Surgical History tubal ligation 2016 Surgical History wisdom teeth Surgical History CATARACT EXTRACTION- LEFT 01/25 17 Surgical History DETACHED RETINE REPAIR (LEFT) 0 06/2021 Surgical History CATARACT EXTRACTION- RIGHT 02/06 017 Hospitalization History SEE SURGICAL HX [facility] Other Hospital Discharge instructions Additional Instructions DISCHARGE [...] directed for pain unless a prescription was provided.[facility] Work Phone: Hospital Discharge instructions Additional Instructions [...] directed for pain unless a prescription was provided.[facility] Work Phone: Progress note Author Christine Velazquez [facility] December 21, 2023 10:26am Note Date/Time December 21, 2023 9: 55am [facility] [place] [address] Cancer Center Note Signed Patient: Melony Manley MR#: [id number] : 1965 Acct:[id number] Age/Sex: 58 / F Type: REG AMB Date of Service: 12/21/23 Copies to: Susan Ayala MD~ Assessment & Plan A/P (1) Invasive ductal carcinoma of left breast: (2) Osteopenia: Eugenio Ty is a 58-year-old nice lady with a stage IIa, pT1b, PN 1, MX left breast centrally located invasive ductal carcinoma with 1+ out of 4 lymph node for invasive cancer. ER/NC reported from the 03/20/2023 core biopsy to be ER 100% positive, PER 60% positive and HER2 manolo 2+ by IHC, negative by FISH, Ki 67 low 5%. Surgical pathology report is not dictating the status of the ER, NC and HER2/manolo. Initial consult for medical oncology on 09/21/2023: We went over her new diagnosis of new left breast invasive ductal carcinoma, stage IIa, and we went over and discussed possible options of treatment based on the ER, NC and HER2/manolo status considering that she has [...] She had DEXA scan in 07/2022 at [facility]. It revealed osteopenia with Tscore -0.6 Since [...] to get a Pap smear through her unit operator once a year and also informed to [...] bone density scan was in 07/2022 at [facility],next one will be 07/2024. She will need screening mammogram as well every july. For her mild chronic thrombocytopenia, it may be related to [place] and Seroquelbut will check Iron studies, B12 [...] is reported in the surgeon note as ER/NC positive and HER2/manolo pending however there are [...] not report any status of the ER, NC and HER2/manolo, however Dr. García note to dictate that patient was ER/NC positive and HER2/manolo was pending. Left breast [...] nipple 08/01/23 Lumpectomy path: Pathological Diagnosis A. Alma node, left axilla, biopsy: Metastatic carcinoma to [...] Examined (sentinel and non-sentinel): 4 Number of Alma Nodes Examined: 4 pTNM CLASSIFICATION (AJCC 8th [...] it was ER positive on the percent, NC +60%, low Ki-67 of only 5%, HER2 [...] She had DEXA scan in 07/2022 at [facility]. It revealed osteopenia with Tscore -0.6 12/21/23: [...] HER2/manolo and actual path report for the ER/NC status, possibly need Oncotype Dx testing to determine if she needs adjuvant chemotherapy. She will need adjuvant radiation. She will need adjuvant endocrine therapy if she is ER/NC positive. Intake Vitals/Pain Assessment 12/21/23 09:56 Height [...] taking Letrozole for the last 6 days. [facility] Medical History Medical History Diabetes Osteopenia Invasive ductal carcinoma of left breast Left breast cancer with T3 tumor, >5 cm in greatest dimension Ingrown right greater toenail removed Ingrown left greater toenail removed Fibrocystic breast determined by biopsy Vaginal atrophy Loughman use Elevated fasting glucose Former smoker Depression [...] signed by Christine Velazquez MD> 12/21/23 1026 [facility] Work Phone: Progress note Author Gaurav Jaime [facility] January 03, 2024 2:37pm Note Date/Time January 03, 2024 1: 58pm [facility] [place] [address] Cancer Center Note Signed Patient: Melony Manley MR#: [id number] : 1965 Acct:[id number] Age/Sex: 58 / F Type: REG AMB Date of Service: 01/03/24 Copies to: Susan Ayala MD~ Assessment & Plan (1) Invasive ductal carcinoma of left breast: Plan: Return to clinic as needed Assessment: 58-year-old female with [id number] invasive ductal carcinoma of the left breast, grade 2, ER/NC positive HER2 negative. Patient has undergone lumpectomy [...] carcinoma, provisional grade 1, with DCIS. Strongly ER/NC positive HER2 was equivocal 2+ There is [...] margin was less than 1 mm posteriorly. Alma lymph node biopsy showed macrometastasis and 1 of 4 lymph nodes size of the largest manjit metastatic deposit was 4 mm. There was extranodal extension present 2 mm or less. [id number] 08/29/2023 return to OR for reexcision, no [...] Fall Precaution Measures Taken: Patient in chair [facility] Medical History Medical History Diabetes Osteopenia Invasive ductal carcinoma of left breast Left breast cancer with T3 tumor, >5 cm in greatest dimension Ingrown right greater toenail removed Ingrown left greater toenail removed Fibrocystic breast determined by biopsy Vaginal atrophy [place] use Elevated fasting glucose Former smoker Depression [...] signed by Gaurav Jaime MD> 01/03/24 1437 [facility] Work Phone: Advance Directives No Advanced Directives Records Found Advance Directive Response Recorded Date/ Time Advance Directives No January 3:39pm Advance Directive Response Recorded Date/ Time Advance Directives No January 4:39pm Advance Directive Response Recorded Date/ Time Advance Directives No March 16, 2024 9:07am Summary Purpose Family History No Family History [...] inoma of left breast (C50.912) Referral Organization [facility] Doug hayes Referring Provider First Name Susan Referring Provider Last Name Jamie Referring Provider Specialty Family [facility] Referred Organization [facility] Referred Provider Geraldo García Referred Address ,[place], [place],[address] Referred Provider Specialty Surgery Referral Priority Routine [...] BH f/u moved up from 01/02 per 12/13 triage Left breast cancer Med [...] 10:38am UC follow up, not feeling better [facility] 2023 2:36pm Reason for Visit Admit Date Invasive ductal carcinoma of left breast January 03, 2024 1:43pm Invasive ductal carcinoma of left breast February 15, 2024 12:46pm Osteopenia February 15, 2024 1 2:46pm Right arm pain February 20, 2024 1 0:22am Type 2 diabetes mellitus with [facility] February 20, 2024 10:22am Right acute otitis [...] Team Status: Active Member Role Status Hilary Plaza MD Attending Provider Active Start: February 27, 2024 Team Status: Inactive Member Role Status Dates Susan Ayala MD Primary Care Provider Active Start: March 16, 2024 End: March 16, 2024 BELLE Hdez RN TRAUMA COORDINATOR-C Attending Provider Active Start: March 16, 2024 [...] Provider Active Start: November 08, 2023 Geraldo Itruby , DO Referring Provider Active Start: November 08, 2023 Gaurav Jaime MD Attending Provid er, Other Provider Active Start: November 08, 2023 Team Status: Active Member Role Status Dates Susan Ayala MD Primary Care Provider Active Start: November 13, 2023 Geraldo García , DO Referring Provider Active Start: November 13, 2023 Gaurav Jaime MD Attending Provid er, Other Provider Active Start: November 13, 2023 Team Status: Active Member Role Status Dates Susan Ayala MD Primary Care Provider Active Start: November 22, 2023 Geraldo García , Referring Provider Active Start: November 22, 2023 [...] Start: January 03, 2024 Geraldo García , Referring Provider Active Start: January 03, 2024 [...] Team Status: Active Member Role Status Dates Susna Ayala MD Primary Care Provide r, Attending [...] Attending Provider Active Start: December 04, 2023 Manager People Relationship Specialty Start Date End Date Susna Ayala MD [address] [place] [address] PCP - General Family Medicine 03/15/23 Manager People Relationship Specialty Start Date End Date Susan Ayala MD [address] [place] [address] PCP - General Family Medicine 03/15/23 Team Status: Inactive Member Role Status Dates Susan Ayala MD Primary Care Provider Active Start: March 22, 2024 End: March 22, 2024 Teresa Baltazar ALEX Herr Attending Provider Active Start: March End: March [...] DATE CREATED AUTHOR AUTHOR'S ORGANIZ ATION 07/07/2023 [facility] DATE CREATED AUTHOR AUTHOR'S ORGANIZ ATION 03/09/2024 [facility] EPIC DATE CREATED AUTHOR AUTHOR'S ORGANIZ ATION 03/30/2024 [facility] FOR RECORDS PERTAINING TO PATIENTS [...] BE BASED ON THE PRIMARY CLINICAL RECORDS. [employer] [facility] provides no warranty or guarantee of the accuracy or completeness of information in this document.
== END 2024-04-02 09:48 | disposition home or self-care (01) ==
LOC: MAMMO 09:48
PROVIDERS: PCP Family Medicine; Visit Provider Nurse Practitioner Gerontology
DX: R92.8 Other abnormal and inconclusive findings on diagnostic imaging of breast (principal); C50.919 Malignant neoplasm of unspecified site of unspecified female breast; Z80.0 Family history of malignant neoplasm of digestive organs; Z85.3 Personal history of malignant neoplasm of breast
CPT/HCPCS: 77066; G0279

== ENCOUNTER 2024-05-15 10:38 | Outpatient (OUT) | payer MEDICARE, MEDICAID, SELFPAY ==
[2024-05-15 11:24] LABS: Basophils Percent Auto 0.5 % (0.2-2.0); Eosinophils Absolute Auto 0.2 10^3/uL (0.0-0.7); Eosinophils Percent Auto 2.5 % (0.9-7.0); Hematocrit 43.3 % (36.0-48.0); Hemoglobin 13.6 g/dL (12.0-16.0); Immature Granulocytes Abs Auto 0.03 10^3/uL (0.00-0.03); Immature Granulocytes Pct Auto 0.5 % (0.0-0.5); Lymphocytes Absolute Auto 1.4 10^3/uL (1.2-3.8); Lymphocytes Percent Auto 22.9 % (20.5-60.0); Mean Corpuscular HGB Conc 31.4 g/dL (29.9-35.2); Mean Corpuscular Hemoglobin 27.6 pg (26.7-34.0); Mean Platelet Volume 10.2 fL (9.5-13.5); Monocytes Absolute Auto 0.6 10^3/uL (0.3-0.8); Monocytes Percent Auto 9.7 % (1.7-12.0); Neutrophils Absolute Auto 3.9 10^3/uL (1.4-6.5); Neutrophils Percent Auto 63.9 % (43.0-75.0); Platelet Count 146 10^3/uL (150-450); Red Blood Count 4.92 10^6/uL (4.20-5.40); Red Cell Distribution Width 14.6 % (11.0-15.0); White Blood Count 6.1 10^3/uL (4.0-11.0)
[2024-05-15 12:04] LABS: Alanine Aminotransferase 38 U/L (14-59); Albumin Globulin Ratio 1.2; Alkaline Phosphatase 105 U/L (46-116); Anion Gap 16.4; Aspartate Amino Transferase 27 U/L (15-37); BUN Creatinine Ratio 11.3; Bilirubin Total 0.5 mg/dL (0.2-1.0); Calcium 10.3 mg/dL (8.5-10.1); Carbon Dioxide 26.9 mmol/L (21.0-32.0); Chloride 106 mmol/L (98-107); Estimated GFR (African America >60 (>=60 mL/min/1.73m^2); Estimated GFR (Non-African Ame 53 (>=60 mL/min/1.73m^2); Globulin 3.4 g/dL; Glucose 174 mg/dL (74-106); Lactate Dehydrogenase 154 U/L (81-234); Potassium 4.3 mmol/L (3.5-5.1); Sodium 145 mmol/L (136-145); Total Protein 7.4 g/dL (6.4-8.2)
== END 2024-05-15 10:39 | disposition home or self-care (01) ==
LOC: LAB 10:41
PROVIDERS: PCP Family Medicine; Visit Provider Internal Medicine
DX: C50.912 Malignant neoplasm of unspecified site of left female breast (principal)
CPT/HCPCS: 36415; 80053; 83615; 85025

== ENCOUNTER 2024-06-11 09:15 | Outpatient (OUT) | payer MEDICARE, MEDICAID, SELFPAY ==
--- OUTSIDE RECORDS SUMMARY | 2024-06-11 09:36 | XMS_ITS | CCD ---
Author Organization [facility] Care Team Providers Care Drill Sergeant Name Role Phone MD Susan Ayala Attending [...] Provider MD Susan Ayala Primary Care Provider [phone] ADAMA GACRÍA Referring Unavailable SUSAN AYALA Primary Care Unavailable Itzkowitz, DO Geraldo Attending Provider MD Susan Ayala Primary Care Provider Itzviraj, DO Geraldo Attending Provider [phone] MD Susan Ayala Primary Care Provider MD Gavin Plaza Attending Provider [phone] MD Gavin Plaza Attending Provider MD Susan Ayala Primary Care Provider Itruby, DO Geraldo Attending Provider MD Gavin Plaza Attending Provider MD Christine Velazquez Attending Provider Itzviraj, DO Geraldo Referring Provider [phone] MD Susan Ayala Primary Care Provider Itruby, DO Geraldo Attending Provider MD Christine Velazquez Attending Provider Itruby, DO Geraldo Referring Provider [phone] MD Gavin Plaza Attending Provider [phone] MD Susan Ayala Primary Care Provider Marcus, DO Geraldo Referring Provider [phone] MD Gaurav Jaime Attending Provider DO Lisa Rubalcava L Attending Provider MD Susan Ayala Primary Care Provider MD Gavin Plaza Attending Provider MD Christine Velazquez Attending Provider [phone] Marcus, DO Geraldo Referring Provider MD Christine Velazquez Attending Provider Itzkowitz, DO Geraldo Referring Provider MD Gavin Plaza Attending Provider MD Christine Velazquez Attending Provider Itzkowitz, DO Geraldo Referring Provider Susan Ayala MD Primary Care Provider [phone] GILSON PORTILLO Attending Unavailable ITZKOWITZ, GERALDO H Attending Unavailable CHEL JOSEPH Attending Unavailable ITZKOWITZ, GERALDO H Attending Unavailable ARTI PORTILLOS A Attending Unavailable ITZKOWITZ, GERALDO H Attending Unavailable ITZKOWITZ, GERALDO H Attending Unavailable SUSAN AYALA Referring Unavailable ITZKOWITZ, GERALDO H Attending Unavailable ITZKOWITZ, GERALDO H Attending Unavailable ITZKOWITZ, GERALDO H Attending Unavailable GILSON PORTILLO Attending Unavailable ITZKOWITZ, GERALDO H Attending Unavailable ARTI PORTILLOS A Attending Unavailable ARTI PORTILLOS A Attending Unavailable Susan Ayala MD Primary Care Provider Caroline SEPULVEDA, Christine Amaya Attending Provider Itzkowitz DO, Geraldo Referring Provider Gavin Plaza MD Attending Provider Susan Ayala MD Primary Care Provider Christine Velazquez MD Attending Provider [phone] Itzkowitz DO, Geraldo Referring Provider Gavin Plaza MD Attending Provider Gavin Plaza MD Attending Provider Susan Ayala MD Primary Care Provider Christine Velazquez MD Attending Provider Geraldo García DO Referring Provider [phone] Itzkoyue, Geraldo Admitting Unavailable Itruby, Geraldo Attending Unavailable Susan Ayala Primary Care Unavailable Gavin Plaza Admitting Unavailab Gavin Leyva Attending Unavailab Christine Lucas Yamy Admitting Unavailabl lien Jacobson-Christine Mtz Attending Unavailabl e Itruby, Geraldo Referring Unavailable Susan Ayala Primary Care Unavailable Itzviraj, Geraldo Attending Unavailable Itzkobriantz, Geraldo Admitting Unavailable Jose Francisco Ayalaia E Primary Care Unavailable Itzkoyue, Geraldo Attending Unavailable Itzkowitz, Geraldo Admitting Unavailable Jose Francisco Ayalaia E Primary Care Unavailable Ly, Lisa L Admitting Unavailable Ly, Lisa L Attending Unavailable Susan Ayala E Primary Care Unavailable Susan Ayala E Primary Care Unavailable Itzkoyue, Geraldo Admitting Unavailable Itzviraj Geraldo Attending Unavailable Allergies Allergy Classification Reported Allergen(s) Allergy Type Date of Onset Reaction(s) Facility Cephalosporins (antibiotic) (1 source) Cephalosporins (Antibiotic) Drug Allergy 10-11-[address] [facility] Penicillins (antibiotic) (1 source) Penicillins Drug Allergy 10-11-19 24 Swelling of Lip/Tongue/Thro at [facility] (9 sources) cefdinir Drug Allergy Unknown [facility] Other (15 sources) Penicillin Drug Allergy halucination and swallowing dificulty [facility] Other (20 sources) Penicillins Drug allergy (disorder) 05-08-18 76 Swelling of Lip/Tongue/Thro at [facility] (10 sources) Medicinal cephalosporin and acting as antibacterial agent (FN) Drug allergy Unknown [facility] Other (10 sources) Ceftin *CEPHALOSPORINS* Propensity to adverse reactions Unknown [facility] [facility] Other (20 sources) Cephalosporins (Antibiotic); Translations: [Cephalosporins] Allergy to substance 07-19-[address] [facility] (9 sources) Penicillins Drug Allergy 03-09-20 23 Other [facility] (2 sources) Penicillins Drug allergy (disorder) 07-19-[address] [facility] Rep[facility] Medications Current Medications Medication Drug [...] monday ascorbic acid 500 mg oral tablet (20 sources) Vitamin C Start: 05-02-2023 take 1 [...] (Astepro Allergy) 205.5 mcg (0.15 %) spray,non-aerosol (9 sources) Start: 04-22-2024 take 1 spray(s) nasal route once daily Azelastine (Astepro Allergy) 205.5 mcg (0.15 %) spray,non-aerosol Active 2 SPRAY INTRANASAL Daily April 22, 2024 11:38am administer into each nostril Start: 03-25-2024 End: 04-22-2024 take 1 spray(s) nasal route once daily Azelastine (Astepro Allergy) 205.5 mcg (0.15 %) spray,non-aerosol Discontinued 2 SPRAY INTRANASAL Daily March 25, 2024 12:00am April 22, 2024 11:38am administer into each nostril Start: 03-25-2024 take 1 spray(s) nasa l route once daily Azelastine (Astepro Allergy) 205.5 [...] Active calcium carbonate 1250 mg chewable tablet (10 sources) Start: 02-15-2024 take 1 tablet by mouth once daily Calcium Carbonate (Calcium 500) 500 mg calcium (1,250 mg) tablet,chewable Active 500 MG PO Daily February 14, 2024 11:00pm cholecalciferol 0.025 mg oral capsule (18 sources) Vitamin D Start: 03-16-2024 take 1 capsule by mouth once daily Cholecalciferol (Vitamin D3) 25 mcg (1,000 unit) capsule Active 50 MCG PO Daily March 16, 2024 9:17am Start: 02-15-2024 End: 03-16-2024 take 1 capsule by mouth once daily Cholecalciferol (Vitamin D3) 25 mcg (1,000 unit) capsule Discontinued 25 MCG PO Daily February 14, 2024 11:00pm March 16, 2024 9:18am ciprofloxacin 3 mg/ml ophthalmic solution (1 source) Quinolone Antimicrobial Start: 06-11-2024 Ciprofloxacin Hcl 0.3 % drops Active 0 OPHTHALMIC .COMPLEX June 11, 2024 12:00am put 1-2 drps in affected eye(s) every 2hr up to 8 times/day x2days; then 4 times/day x5days Eye-Both gabapentin 300 mg oral capsule (11 sources) Anti-epileptic Agent Start: 05-23-2024 take 1 capsule by mouth once daily at bedtime Gabapentin 300 mg capsule Active 300 MG PO Daily at bedtime May 23, 2024 12:00am Start: 02-21-2024 End: 03-16-2024 take 1 capsule by mouth once daily at bedtime Gabapentin (Neurontin) 300 mg capsule Discontinued 300 MG PO Daily at bedtime February 20, 2024 11:00pm March 16, 2024 9:17am lithium carbonate 450 mg extended release oral tablet (20 sources) Start: 12-27-2022 take 1 tablet by mouth once daily in the evening [place] Carbonate 450 mg tablet extended release Active 450 MG PO Every evening May 02, 2023 12:00am [place] Carbonat e 450 mg 2 tablets QHS [...] 11, 2023 9:51am October 31, 2023 7:37am sulfamethoxazole 800 mg / trimethoprim 160 mg oral tablet (4 sources) Dihydrofolate Reductase Inhibitor Antibacterial, Sulfonamide Antimicrobial Start: 05-17-2024 take 1 tablet by mouth twice daily Sulfamethoxazole-Trimethoprim 800-160 mg tablet Active 1 TAB PO Twice daily May 17, 2024 12:00am Completed/Discontinued Medications Medication Drug Class(es) Dates Sig (Normalized) Sig (Original) acetaminophen 300 mg / codeine phosphate 30 mg oral tablet (18 sources) Opioid Agonist Start: 08-01-2023 End: 08-11-2023 take 1 tablet by mouth every six hours as needed for pain Acetaminophen-Code ine 300-30 mg tablet Discontinued 1 TAB PO Every 6 hours as needed for pain 24 09July 31, 2023 11:00pm August 11, 2023 9:44am doxycycline monohydrate 100 mg oral capsule (7 sources) Tetracycline-class Drug Start: 03-16-2024 End: 05-17-2024 take 1 capsule by mouth twice daily Doxycycline Monohydrate 100 mg capsule Discontinued 100 MG PO Twice daily 18 11March 16, 2024 12:00am May 17, 2024 11:20am fenofibrate 200 mg oral capsule (5 sources) Peroxisome Proliferator Receptor alpha Agonist take 1 capsule by mouth every twenty-four hours Fenofibrate 200 MG 1 tablet Orally Once a day Not-Taking glipiZIDE er 5 mg 24 hr extended [...] BY MOUTH EVERY DAY Start: 10-03-2023 End: 02-20-2024 take 1 tablet by mouth [...] 2024 12:14pm ibuprofen 600 mg oral tablet (16 sources) Nonsteroidal Anti-inflammatory Drug Start: 08-29-2023 End: 11-20-2023 take 4 tablets by mouth every twenty-four hours for pain Ibuprofen 600 mg tablet Discontinued 600 MG PO EVERY 4-6 HOURS as needed for pain 24 09August 28, 2023 11:00pm November 20, 2023 7:07am do not exceed 4 doses in a 24 hour period Ketorolac (15 sources) Nonsteroidal Anti-inflammatory Drug, Cyclooxygenase Inhibitor Start: 09-04-2016 Toradol per 15 mg Aug, 60 mg letrozole 2.5 mg oral tablet (20 sources) Aromatase Inhibitor Start: 10-11-2023 End: 02-21-2024 take 1 tablet by mouth once daily Letrozole 2.5 mg tablet Discontinued 2.5 MG PO Daily February 14, 2024 11:00pm February 21, 2024 1:59pm levoFLOXacin 500 mg oral tablet (5 sources) [...] Not-Taking mometasone furoate 1 mg/ml topical cream (13 sources) Corticosteroid Start: 11-03-2023 End: 12-21-2023 Mometasone 0.1 % cream Discontinued 1 APPLIC TOPICAL Daily November 02, 2023 11:00pm December 21, 2023 8:58am Apply to radiation site, once a day, AFTER radiation treatments. tamoxifen 20 mg oral tablet (12 sources) Estrogen Agonist/Antagonist Start: 12-21-2023 End: 01-03-2024 [...] venlafaxine 37.5 mg extended release oral capsule (12 sources) Serotonin and Norepinephrine Reuptake Inhibitor Start: [...] Translations: [Chronic kidney disease, stage 3 unspecified] Onset: 04-08-2024 07-10-2023 Chronic Chronic obstructive pulmonary disease and bronchiectasis (2 sources) Bronchitis, not specified as acute or chronic Episodic Complications of surgical procedures or medical care (20 sources) Postoperative hematoma of breast; Translations: [Hematoma of breast following procedure] 07-11-2023 Episodic Diabetes mellitus with complications (20 sources) Hyperglycemia due to type 2 diabetes mellitus; Translations: [Type 2 diabetes mellitus with hyperglycemia] Onset: 04-08-2024 10-09-2023 Chronic Diabetes mellitus without complication (20 sources) Impaired fasting glycemia; Translations: [Impaired fasting glucose] Onset: 03-08-2018 Episodic Disorders of lipid metabolism (20 sources) Hyperlipidemia, unspecified; Translations: [Pure hyperglyceridemia] Onset: 03-07-2018 Chronic Esophageal disorders (20 sources) Gastro-esophageal reflux disease without esophagitis; Translations: [Gastroesophageal reflux disease] Onset: 04-08-2024 08-11-2023 Chronic Genitourinary symptoms and ill-defined conditions (8 sources) Dysuria; Translations: [Finding of frequency of urination] Onset: 04-21-2022 Resolved: 06-04-2019 Episodic Immunizations and screening for infectious disease (2 sources) Encounter for screening for human papillomavirus (HPV); Translations: [Encounter for screening for infections with a predominantly sexual mode of transmission] Onset: 07-19-2022 Episodic Inflammation; infection of eye (except that caused by tuberculosis or sexually transmitteddisease) (2 sources) Bacterial conjunctivitis; Translations: [Unspecified conjunctivitis] 06-11-2024 Episodic Menopausal disorders (18 sources) Atrophy of vagina; Translations: [Postmenopausal atrophic vaginitis] Onset: 03-07-2018 Chronic Mood disorders (5 sources) Bipolar disorder, unspecified; Translations: [BIPOLAR DISORDER UNSPECIFIED] Onset: 03-07-2018 Chronic Mycoses (4 sources) Candidiasis of skin and nail; Translations: [Candidiasis] Onset: 06-08-2014 Resolved: 06-10-2016 Episodic Nonmalignant breast conditions (20 sources) Mammographic calcification found on diagnostic imaging of breast; Translations: [Other specified disorders of breast] Onset: 08-05-2022 Resolved: 06-28-2019 03-22-2024 Episodic Other aftercare (14 sources) Long-term current use of drug therapy; Translations: [Other longterm (current) drug therapy] Episodic Other aftercare (3 sources) 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; Translations: [OTH CUSTODIAL 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 THERAPY] Onset: 04-18-2022 Episodic Other [...] bone disease and musculoskeletal deformities (20 sources) Osteopenia; Translations: [Other specified disorders of bone density and structure, unspecified site] Onset: 04-08-2024 09-21-2023 Episodic Other circulatory disease (1 source) [...] upper arm] Episodic Other connective tissue disease (14 sources) Pain in right arm; Translations: [Pain in right arm] Onset: 04-08-2024 02-20-2024 Episodic Other connective tissue disease (6 sources) Pain in right arm; Translations: [Pain in limb] 02-20-2024 Episodic Other ear and sense organ disorders (6 sources) Sudden idiopathic hearing loss; Translations: [Sudden idiopathic hearing loss, right ear] Onset: 04-10-2024 04-10-2024 Episodic Other ear and sense organ disorders (1 source) Tinnitus of right ear; Translations: [Tinnitus, right ear] 04-10-2024 Episodic Other female genital disorders (1 source) [...] Resolved: 06-28-2019 Episodic Other upper respiratory disease (20 sources) Allergic rhinitis; Translations: [Allergic rhinitis, unspecified] Onset: 04-08-2024 08-11-2023 Chronic Other upper respiratory disease (3 sources) Allergic rhinitis, unspecified; Translations: [Allergic rhinitis, cause unspecified] 08-11-2023 Chronic Other upper respiratory infections (1 source) Chronic sinusitis; Translations: [Chronic sinusitis, unspecified] Chronic Other upper respiratory infections (16 sources) Acute maxillary sinusitis; Translations: [Acute recurrent maxillary sinusitis] Onset: 07-20-2018 03-16-2024 Episodic Otitis media and related conditions (20 sources) Acute right otitis media; Translations: [Otitis media, unspecified, right ear] Onset: 04-08-2024 03-16-2024 Episodic Residual codes; unclassified (1 source) Family history of malignant neoplasm of digestive organs; Translations: [FAM MALIG NEOPLASM DIGESTIV ORGN] Onset: 09-01-2022 Episodic [...] (ER+)] Onset: 06-29-2023 Episodic Residual codes; unclassified (8 sources) Pain, unspecified; Translations: [Generalized pain] 03-16-2024 Episodic Screening and history of mental health and substance abuse codes (1 source) Encounter for screening for depression; Translations: [Encounter for screening for depression] Episodic Thyroid disorders (18 sources) Hypothyroidism; Translations: [Hypothyroidism, unspecified] Chronic Unclassified (1 source) Encounter for preprocedural laboratory examination; Translations: [Encounter for preprocedural laboratory examination] Onset: 07-19-2023 Urinary tract infections (1 source) Urinary tract [...] [Chest pain, unspecified] Onset: 03-07-2018 Episodic Other connective tissue disease (1 source) Pain of toes of bilateral feet; Translations: [Pain in right toe(s)] 12-24-2023 Episodic Other gastrointestinal disorders (1 source) Abdominal [...] Test Name Value Interpretation Reference Range Facility Basophils Auto (Bld) [#/Vol] on 05-15-2024 Basophils (Bld) [#/Vol] Automated basoph il count 0.0-0.1 [facility] Basophils/100 WBC Auto (Bld) on 05-15-2024 Basophils/100 WBC (Bld) Automated basophil % 0. 2-2.0 [facility] Eosinophils/100 WBC Auto (Bl d)on 05-15-2024 Eosinophils/100 WBC (Bld) Automated eosinophil % 0.9-7.0 [facility] Erythrocyte distribution wid th Auto (RBC) [Ratio]on 05-15-2024 Erythrocyte distribution width (RBC) [Ratio] Erythrocyte distribution width [Ratio] by Automated count 11.0-15.0 [facility] Estimated glomerular filtrat ion rate (GFR) non- Americanon 05-15-2024 GFR/1.73 sq M.predicted among non-blacks MDRD (S/P/Bld) [Vol rate/Area] Estimated glomerular filtration rate (GFR) non- Low >=60 mL/min/1.[address] [facility] Globulin Calc (S) [Mass/Vol] on 05-15-2024 Globulin (S) [Mass/Vol] Serum globulin measurement by calculation (mass/volume) [facility] Hematocrit Auto (Bld) [Volum e fraction]on 05-15-2024 Hematocrit (Bld) [Volume fraction] Hematocrit [Volume Fraction] of Blood by Automated count 36.0-48.0 [facility] Hemoglobin [Mass/volume] in Bloodon 05-15-2024 Hemoglobin (Bld) [Mass/Vol] Hemoglobin [Mass/volume] in Blood 12.0-16.0 [facility] Laboratory - Chemistry and C hemistry - challengeon 05-15-2024 Albumin [Mass/Vol] 4.0 g/dL 3.4-5.0 [facility] ALP [Catalytic activity/Vol] 105 U/L 46-116 [facility] ALT [Catalytic activity/Vol] 38 U/L 14-59 [facility] AST [Catalytic activity/Vol] 27 U/L 15-37 [facility] Bilirubin [Mass/Vol] 0.5 mg/dL 0.2-1.[address] [facility] Calcium [Mass/Vol] 10.3 mg/dL High 8.5-10.1 [facility] Chloride [Moles/Vol] 106 mmol/L 98-[address] [facility] CO2 [Moles/Vol] 26.9 mmol/L 21.0-32.0 [facility] Creatinine [Mass/Vol] 1.06 mg/dL High 0.55-1.02 [facility] GFR/1.73 sq M.predicted MDRD (S/P/Bld) [Vol rate/Area] mL/min/{1.73_m2} >=60 mL/min/1.[address] [facility] Glucose [Mass/Vol] 174 mg/dL High 74-106 [facility] LDH [Catalytic activity/Vol] 154 U/L 81-234 [facility] Potassium [Moles/Vol] 4.3 mmol/L 3.5-5.1 [facility] Protein [Mass/Vol] 7.4 g/dL 6.4-8.2 [facility] Sodium [Moles/Vol] 145 mmol/L 136-145 [facility] Urea nitrogen [Mass/Vol] 12.0 mg/dL 7.0-18.0 [facility] Urea nitrogen/Creatinine [Mass ratio] 11.3 mg/mg [facility] Laboratory - Hematology and Cell countson 05-15-2024 Immature granulocytes/100 WBC (Bld) 0.5 % 0.0-0.5 [facility] Leukocytes [#/volume] correc cori for nucleated erythrocytes in Blood by Automated counon 05-15-2024 WBC corrected for nucl RBC Auto (Bld) [#/Vol] Leukocytes [#/volume] corrected for nucleated erythrocytes in Blood by Automated coun 4.0-11.0 [facility] Lymphocytes Auto (Bld) [#/Vo l]on 05-15-2024 Lymphocytes (Bld) [#/Vol] Lymphocytes [#/volume] in Blood by Automated count 1.2-3.8 [facility] Lymphocytes/100 WBC Auto (Bl d)on 05-15-2024 Lymphocytes/100 WBC (Bld) Lymphocytes/100 leukocytes in Blood by Automated count 20.5-60.0 [facility] MCH Auto (RBC) [Entitic mass ]on 05-15-2024 MCH (RBC) [Entitic mass] MCH [Entitic mass] by Automated count 26.7-34.0 [facility] MCHC Auto (RBC) [Mass/Vol]on 05-15-2024 MCHC (RBC) [Mass/Vol] MCHC [Mass/volume] by Automated count 29.9-35.2 [facility] MCV Auto (RBC) [Entitic vol] on 05-15-2024 MCV (RBC) [Entitic vol] MCV [Entitic vol ume] by Automated count 81.0-99.0 [facility] Monocytes Auto (Bld) [#/Vol] on 05-15-2024 Monocytes (Bld) [#/Vol] Automated blood monocyte count 0.3-0.8 [facility] Monocytes/100 WBC Auto (Bld) on 05-15-2024 Monocytes/100 WBC (Bld) Automated monocyte % 1. 7-12.0 [facility] Neutrophils Auto (Bld) [#/Vo l]on 05-15-2024 Neutrophils (Bld) [#/Vol] Neutrophils [#/volume] in Blood by Automated count 1.4-6.5 [facility] Neutrophils/100 WBC Auto (Bl d)on 05-15-2024 Neutrophils/100 WBC (Bld) Automated neutrophil % 43.0-75.0 [facility] No Panel Informationon 05-15 Eosinophils # (Auto) 0.2 10 3/uL 0.0-0.7 [facility] Immature Granulocyte # (Auto) 0.03 10 3/uL 0.00-0.03 [facility] Miscellaneous Test COMMENT . [facility] Comment on above: Test Ordered: [id number] Platelet Antibody ProfileHLA Class 1 Antibody Negative BN Reference Range: NegativeIIb/IIIa Antibody Negative BN Reference Range: NegativeIb/IX Antibody Negative BN Reference Range: NegativeIa/IIa Antibody Negative BN Reference Range: NegativeGlycoprotein IV Antibody Negative BN Reference Range: NegativePerformed at: BN - [facility] [id number] Director: Carlos Alberto Goss MD, Phone: [phone] at: - [facility] [id number] Director: Wojciech Farah PhD, Phone: [phone] Platelet mean volume Auto (B ld) [Entitic vol]on 05-15-2024 Platelet mean volume (Bld) [Entitic vol] Platelet mean volume [Entitic volume] in Blood by Automated count 9.5-13.5 [facility] Platelets Auto (Bld) [#/Vol] on 05-15-2024 Platelets (Bld) [#/Vol] Platelets [#/vol ume] in Blood by Automated count Low 150-450 [facility] RBC Auto (Bld) [#/Vol]on RBC (Bld) [#/Vol] Erythrocytes [#/volu me] in Blood by Automated count 4.20-5.40 [facility] Serum or plasma albumin/glob ulin mass ratioon 05-15-2024 Albumin/Globulin [Mass ratio] Serum or plasma albumin/globulin mass ratio [facility] Serum or plasma anion gap de terminationon 05-15-2024 Anion gap [Moles/Vol] Serum or plasma an ion gap determination [facility] Auditory function testson Right Ear: Mild sensorineural hearing loss from 250 Hz - 1K Hz rising to normal hearing from 2K Hz - 3K Hz. Mild to moderate sensorineural hearing loss above 3K Hz Left Ear: Mild sensorineural hearing loss at 8K Hz only [facility] Healthcare COVID Cepheidon 03-16-2024 SARS-CoV-2 (COVID-19) RNA HIMANSHU+probe Ql (Unsp spec) [facility] an d Antimicrobial susceptibilityon 03-16-2024 SARS-CoV-2 (COVID-19) RNA HIMANSHU+probe Ql (Unsp spec) Negative [facility] No Panel InformationOrdered By: Valencia Boyd on 03-16-2024 Quick Strep (POC) [facility] No Panel Informationon 03-16 POC Influenza A (PCR) Negative [facility] POC Influenza B (PCR) Negative [facility] HbA1c HPLC (Bld) [Mass fract ion]on 02-20-2024 HbA1c (Bld) [Mass fraction] Hemoglobin A1c/Hemoglobin.total in Blood by HPLC [facility] Globulin Calc (S) [Mass/Vol] on 02-08-2024 Globulin (S) [Mass/Vol] 3.6 g/dL F [facility] Globulin (S) [Mass/Vol] Serum globulin measurement by calculation (mass/volume) [facility] Laboratory - Chemistry and C hemistry - challengeon 02-08-2024 Albumin [Mass/Vol] 4.0 g/dL 3.4-5.0 [facility] ALP [Catalytic activity/Vol] 104 U/L 46-116 [facility] ALT [Catalytic activity/Vol] 37 U/L 14-59 [facility] AST [Catalytic activity/Vol] 29 U/L 15-37 [facility] Bilirubin [Mass/Vol] 0.4 mg/dL 0.2-1.[address] [facility] Bilirubin.direct [Mass/Vol] 0.1 mg/dL 0.0-0.2 [facility] Protein [Mass/Vol] 7.6 g/dL 6.4-8.2 [facility] Serum or plasma albumin/glob ulin mass ratioon 02-08-2024 Albumin/Globulin [Mass ratio] 1.1 {ratio} [facility] Albumin/Globulin [Mass ratio] Serum or plasma albumin/globulin mass ratio [facility] Basophils Auto (Bld) [#/Vol] on 12-22-2023 Basophils (Bld) [#/Vol] 0.0 10 3/uL 0.0-0.1 [facility] Basophils/100 WBC Auto (Bld) on 12-22-2023 Basophils/100 WBC (Bld) 0.2 % 0.2-2.0 F [facility] Eosinophils/100 WBC Auto (Bl d)on 12-22-2023 Eosinophils/100 WBC (Bld) 0.0 % Low 0.9-7.0 [facility] Erythrocyte distribution wid th Auto (RBC) [Ratio]on 12-22-2023 Erythrocyte distribution width (RBC) [Ratio] 13.9 % 11.0-15.0 [facility] Estimated glomerular filtrat ion rate (GFR) non- Americanon 12-22-2023 GFR/1.73 sq M.predicted among non-blacks MDRD (S/P/Bld) [Vol rate/Area] 52 mL/min/{1.73_m2} Low >=60 [facility] Globulin Calc (S) [Mass/Vol] on 12-22-2023 Globulin (S) [Mass/Vol] 3.3 g/dL F [facility] Hematocrit Auto (Bld) [Volum e fraction]on 12-22-2023 Hematocrit (Bld) [Volume fraction] 42.6 % 36.0-48.0 [facility] Hemoglobin [Mass/volume] in Bloodon 12-22-2023 Hemoglobin (Bld) [Mass/Vol] 13.1 g/dL 12.0-16.0 [facility] Iron binding capacity [Mass/ volume] in Serum or Plasmaon 12-22-2023 Iron binding capacity [Mass/Vol] 324.0 ug/dL 250.0-450.0 [facility] Iron saturation [Mass Fracti on] in Serum or Plasmaon 12-22-2023 Iron saturation [Mass fraction] 18.5 % [facility] Laboratory - Chemistry and C hemistry - challengeon 12-22-2023 Albumin [Mass/Vol] 4.1 g/dL 3.4-5.0 [facility] ALP [Catalytic activity/Vol] 101 U/L 46-116 [facility] ALT [Catalytic activity/Vol] 42 U/L 14-59 [facility] AST [Catalytic activity/Vol] 35 U/L 15-37 [facility] Bilirubin [Mass/Vol] 0.4 mg/dL 0.2-1.[address] [facility] Calcium [Mass/Vol] 10.0 mg/dL 8.5-10.1 [facility] Chloride [Moles/Vol] 107 mmol/L 98-[address] [facility] CO2 [Moles/Vol] 27.1 mmol/L 21.0-32.0 [facility] Cobalamin (Vitamin B12) [Mass/Vol] 382.0 pg/mL 193.0-986.0 [facility] Creatinine [Mass/Vol] 1.07 mg/dL High 0.55-1.02 [facility] Ferritin [Mass/Vol] 312.0 ng/mL High 8.0-252.[address] [facility] GFR/1.73 sq M.predicted MDRD (S/P/Bld) [Vol rate/Area] mL/min/{1.73_m2} >=60 [facility] Glucose [Mass/Vol] 143 mg/dL High 74-106 [facility] Iron [Mass/Vol] 60.0 ug/dL 50.0-170.0 [facility] Potassium [Moles/Vol] 5.0 mmol/L 3.5-5.1 [facility] Protein [Mass/Vol] 7.4 g/dL 6.4-8.2 [facility] Sodium [Moles/Vol] 143 mmol/L 136-145 [facility] Urea nitrogen [Mass/Vol] 13.0 mg/dL 7.0-18.0 [facility] Urea nitrogen/Creatinine [Mass ratio] 12.1 mg/mg [facility] - Hematology and Cell countson 12-22-2023 Immature granulocytes/100 WBC (Bld) 0.2 % 0.0-0.5 [facility] Leukocytes [#/volume] correc cori for nucleated erythrocytes in Blood by Automated counon 12-22-2023 WBC corrected for nucl RBC Auto (Bld) [#/Vol] 4.2 10 3/uL 4.0-11.0 [facility] Lymphocytes Auto (Bld) [#/Vo l]on 12-22-2023 Lymphocytes (Bld) [#/Vol] 0.8 10 3/uL Low 1.2-3.8 [facility] Lymphocytes/100 WBC Auto (Bl d)on 12-22-2023 Lymphocytes/100 WBC (Bld) 18.5 % Low 20.5-60.0 [facility] MCH Auto (RBC) [Entitic mass ]on 12-22-2023 MCH (RBC) [Entitic mass] 27.8 pg 26.7-34.0 [facility] MCHC Auto (RBC) [Mass/Vol]on 12-22-2023 MCHC (RBC) [Mass/Vol] 30.8 g/dL 29.9-35.2 [facility] MCV Auto (RBC) [Entitic vol] on 12-22-2023 MCV (RBC) [Entitic vol] 90.4 fL 81.0-99.0 F [facility] Monocytes Auto (Bld) [#/Vol] on 12-22-2023 Monocytes (Bld) [#/Vol] 0.3 10 3/uL 0.3-0.8 [facility] Monocytes/100 WBC Auto (Bld) on 12-22-2023 Monocytes/100 WBC (Bld) 8.1 % 1.7-12.0 [facility] Neutrophils Auto (Bld) [#/Vo l]on 12-22-2023 Neutrophils (Bld) [#/Vol] 3.1 10 3/uL 1.4-6.5 [facility] Neutrophils/100 WBC Auto (Bl d)on 12-22-2023 Neutrophils/100 WBC (Bld) 73.0 % 43.0-75.0 [facility] No Panel Informationon 12-21 Eosinophils # (Auto) 0.0 10 3/uL 0.0-0.7 [facility] Folate 8.60 ng/mL 8.60-58.90 [facility] Immature Granulocyte # (Auto) 0.01 10 3/uL 0.00-0.03 [facility] Platelet mean volume Auto (B ld) [Entitic vol]on 12-22-2023 Platelet mean volume (Bld) [Entitic vol] 10.1 fL 9.5-13.5 [facility] Platelets Auto (Bld) [#/Vol] on 12-22-2023 Platelets (Bld) [#/Vol] 115 10 3/uL Low 150-450 [facility] RBC Auto (Bld) [#/Vol]on RBC (Bld) [#/Vol] 4.71 10 6/uL 4.20-5.40 [facility] Serum or plasma albumin/glob ulin mass ratioon 12-22-2023 Albumin/Globulin [Mass ratio] 1.2 {ratio} [facility] Serum or plasma anion gap de terminationon 12-22-2023 Anion gap [Moles/Vol] 13.9 mmol/L [facility] Capillary blood glucose juan urement by glucometer (mass/volume)Ordered By: Lisa Rubalcava on 12-05-2023 Glucose [Mass/Vol] 98 mg/dL Normal [facility] Comment on above: Random Glucose Refer ence Range is dependent on time and content of last meal. Glucose of more than 200 mg/dL in a nonstressed, ambulatory subject supports the diagnosis of Diabetes Mellitus. Result Comment: [place] Glucose Reference Range is dependent on time and content of last meal. Glucose of more than 200 mg/dL in a nonstressed, ambulatory subject supports the diagnosis of Diabetes Mellitus. Performed By: #### G LULS #### Point of Care testing , Glucose Poct Glucometerson 0 12-05-2023 Commemt1 Glu2: Cleaned Meter Normal [facility] Comment on above: Result Comment: PERF ORMED BY: [facility] [address] [place] [address] PATHOLOGIST ACTIVITIES THERAPIST HUI NORTH M.D. Performed By: #### G LULS #### Point of Care testing , Yoan 12-05-2023 L Specimen: [id number] Received: 12/05/23 Status: WAN Marie Num: [id number] Spec Type: Surgical Subm Dr: Lisa Rubalcava DO Tissues: A Colon Biopsy (SIGMOID POLYP) Procedures: HE/2, Gross/Micro L4 Age/ Patient Sex Location Account Attending Physician Melony Manley 58/F [id number] Lisa Rubalcava DO SPEC NUM: [id number] RECD: 12/05/23 STATUS: WAN MARIE NUM: [id number] MANGO: 12/05/23- SUBM DR: Lisa Rubalcava DO ENTERED: 12/05/[address] [facility] [address]: SPEC TYPE: Surgical DEPT: [...] and entirely submitted in A1. CPT Codes 54394 Specimen: [id number] Received: 12/05/23 Status: WAN Rodriguezcan Num: [id number] Spec Type: Surgical Subm Dr: Lisa Rubalcava DO Tissues: A Colon Biopsy (SIGMOID POLYP) Procedures: Charli GALLARDO/John L4 Patient: VetoMelony [id number] (Continued) Signed (signature on file) Ugo Brandt Jr., MD 12/06/23 7274 Normal [facility] No Panel InformationOrdered By: Lisa Rubalcava on 12-05-2023 Bedside Glucose Comment Glu2: cleaned meter [facility] Estimated glomerular filtrat ion rate (GFR) non- Americanon 11-15-2023 GFR/1.73 sq M.predicted among non-blacks MDRD (S/P/Bld) [Vol rate/Area] 52 mL/min/{1.73_m2} Low >=60 [facility] Globulin Calc (S) [Mass/Vol] on 11-15-2023 Globulin (S) [Mass/Vol] 3.5 g/dL F [facility] Laboratory - Chemistry and C hemistry - challengeon 11-15-2023 Albumin [Mass/Vol] 3.9 g/dL 3.4-5.0 [facility] ALP [Catalytic activity/Vol] 91 U/L 46-116 [facility] ALT [Catalytic activity/Vol] 44 U/L 14-59 [facility] AST [Catalytic activity/Vol] 40 U/L High 15-37 [facility] Bilirubin [Mass/Vol] 0.4 mg/dL 0.2-1.[address] [facility] Calcium [Mass/Vol] 9.3 mg/dL 8.5-10.1 [facility] Chloride [Moles/Vol] 110 mmol/L High 98-[address] [facility] CO2 [Moles/Vol] 26.2 mmol/L 21.0-32.0 [facility] Creatinine [Mass/Vol] 1.07 mg/dL High 0.55-1.02 [facility] GFR/1.73 sq M.predicted MDRD (S/P/Bld) [Vol rate/Area] mL/min/{1.73_m2} >=60 [facility] Glucose [Mass/Vol] 127 mg/dL High 74-106 [facility] Potassium [Moles/Vol] 4.7 mmol/L 3.5-5.1 [facility] Protein [Mass/Vol] 7.4 g/dL 6.4-8.2 [facility] Sodium [Moles/Vol] 145 mmol/L 136-145 [facility] Urea nitrogen [Mass/Vol] 12.0 mg/dL 7.0-18.0 [facility] Urea nitrogen/Creatinine [Mass ratio] 11.2 mg/mg [facility] Serum or plasma albumin/glob ulin mass ratioon 11-15-2023 Albumin/Globulin [Mass ratio] 1.1 {ratio} [facility] Serum or plasma anion gap de terminationon 11-15-2023 Anion gap [Moles/Vol] 13.5 mmol/L [facility] Cholesterol in LDL Calc [Mas s/Vol]on 09-26-2023 Cholesterol in LDL [Mass/Vol] 31.0 mg/dL [facility] Comment on above: <100 mg/dl [id number] 0-129 mg/dl NEAR OR ABOVE [id number] mg/dl BORDERLINE [id number] mg/dl HIGH>190 mg/dl VERY HIGH Cholesterol in VLDL Calc [Ma ss/Vol]on 09-26-2023 Cholesterol in VLDL [Mass/Vol] 47.8 mg/dL [facility] Estimated glomerular filtrat ion rate (GFR) non- Americanon 09-26-2023 GFR/1.73 sq M.predicted among non-blacks MDRD (S/P/Bld) [Vol rate/Area] mL/min/{1.73_m2} >=60 [facility] Glucose mean value [Mass/vol ume] in Blood Estimated from glycated hemoglobinon 09-26-2023 Average glucose Estimated from glycated hemoglobin (Bld) [Mass/Vol] 189 mg/dL [facility] - Chemistry and C hemistry - challengeon 09-26-2023 Cholesterol [Mass/Vol] 120 mg/dL <=200 [facility] Cholesterol in HDL [Mass/Vol] 42 mg/dL 40-60 [facility] Comment on above: > or =60 mg/dl - LOW CARDIOVASCULAR RISK<40 mg/dl - HIGH CARDIOVASCULAR RISK Creatinine [Mass/Vol] 0.89 mg/dL 0.55-1.02 [facility] GFR/1.73 sq M.predicted MDRD (S/P/Bld) [Vol rate/Area] mL/min/{1.73_m2} >=60 [facility] Glucose [Mass/Vol] 182 mg/dL High 74-106 [facility] Triglyceride [Mass/Vol] 239 mg/dL High <=150 F [facility] TSH Qn 2.178 m[IU]/L 0.358-3.740 [facility] - Hematology and Cell countson 09-26-2023 HbA1c (Bld) [Mass fraction] 8.2 % High 4.5-6.2 [facility] Comment on above: ADA RECOMMENDED LIMI T 4.0 - 6.0ADA THERAPEUTIC TARGET < 7.0ACTION SUGGESTED> 7.0 No Panel Informationon 09-25 [place] Level 0.7 mmol/L 0.5-1.2 [facility] Comment on above: A concentration of 0 .5-0.8 mmol/L is advised for long-termuse; concentrations of up to 1.2 mmol/L may be necessaryduring acute treatment. Detection Limit = 0.1 <0.1 indicates None DetectedPerformed at: [facility] [id number] Director: Wojciech Farah PhD, Phone: [phone] Serum or plasma total choles terol/high density lipoprotein (HDL) cholesterol mass alix 09-26-2023 Cholesterol.total/Juanita sterol in HDL [Mass ratio] 2.9 {ratio} [facility] Comment on above: 3.3 - 4.4 LOW RISK4. 4 - 7.1 AVERAGE RISK7.1 - 11.0 MODERATE RISK>11.0 HIGH RISK Yoan 08-29-2023 L Specimen: [id number] Received: 08/29/23 Status: WAN Marie Num: [id number] Spec Type: Surgical Subm Dr: Geraldo García DO Tissues: A Breast Biopsy/Mass Not Requiring Micro Eval of Margins (RE-EXC POST MARGIN L Procedures: HE/9, Gross/Micro L4, AE1-AE3/3 Age/ Patient Sex Location Account Attending Physician Melony Manley 58/F [place] [id number] Geraldo García DO SPEC NUM: [id number] RECD: 08/29/23 STATUS: WAN MARIE NUM: [id number] MANGO: 08/29/[address]: Geraldo García DO [...] The specimen is entirely submitted as follows: Specimen: [id number] Received: 08/29/23 Status: WAN Marie Num: [id number] Spec Type: Surgical Subm Dr: Geraldo García DO Tissues: A Breast Biopsy/Mass Not Requiring Micro Eval of Margins (RE-EXC POST MARGIN L Procedures: , Gross/Micro L4, AE1-AE3/3 Patient: Melony Manley [id number] (Continued) Specimen: [id number] Received: 08/29/23 (Continued) Gross Description (Continued) Signed (signature on file) Nathaniel Gillette MD 08/31/23 1126 Specimen: [id number] Received: 08/29/23 Status: BHUPINDERKirk Marie Num: [id number] Spec Type: Surgical Subm Dr: Geraldo García DO Tissues: A Breast Biopsy/Mass Not Requiring Micro Eval of Margins (RE-EXC POST MARGIN L Procedures: Yesi Gross/Micro L4, AE1-AE3/3 Patient: Melnoy Manley [id number] (Continued) Specimen: [id number] Received: 08/29/23-1230 (Continued) Gross Description (Continued) A1: [...] posterior margin left breast TW CPT Codes 08329 16013 LUMP WITH BIOPSY CLIP AND SUTURES LUMP WITH BIOPSY CLIP AND SUTURES Specimen: [id number] Received: 08/29/23 Status: WAN Marie Num: [id number] Spec Type: Surgical Subm Dr: Geraldo García, DO Tissues: A Breast Biopsy/Mass Not Requiring Micro Eval of Margins (RE-EXC POST MARGIN L Procedures: HE/9, Gross/Micro L4, AE1-AE3/3 Patient: Melony Manley [id number] (Continued) (more content not included)... Normal [facility] Automated basophil %Ordered By: Ibrahima Chand on 08-01-2023 Basophils/100 WBC (Bld) 0.5 % Normal . [facility] Comment on above: Performed By: #### C BC, BMP #### [facility] [address] Automated basophil countOrde red By: Ibrahima Chand on 08-01-2023 Basophils (Bld) [#/Vol] 0.0 10*3/uL Normal 0.0-0.2 [facility] Comment on above: Result Comment: PERF ORMED BY: [facility] [address] [place] [address] PATHOLOGIST ACTIVITIES THERAPIST HUI NORTH M.D. Performed By: #### C BC, BMP #### [address] Automated blood monocyte cou ntOrdered By: Ibrahima Chand on 08-01-2023 Monocytes (Bld) [#/Vol] 0.4 10*3/uL Normal 0.0-0.8 [facility] Comment on above: Performed By: #### C BC, BMP #### [address] Automated eosinophil %Ordere d By: Ibrahima Chand on 08-01-2023 Eosinophils/100 WBC (Bld) 0.1 % Normal . [facility] Comment on above: Performed By: #### C BC, BMP #### [address] Automated eosinophil countOr dered By: Ibrahima Chand on 08-01-2023 Eosinophils (Bld) [#/Vol] 0.0 10*3/uL Normal 0.0-0.45 [facility] Comment on above: Performed By: #### C BC, BMP #### [address] Automated monocyte %Ordered By: Ibrahima Chand on 08-01-2023 Monocytes/100 WBC (Bld) 7.1 % Normal . [facility] Comment on above: Performed By: #### C BC, BMP #### [address] Automated neutrophil %Ordere d By: Ibrahima Maciasain on 08-01-2023 Neutrophils/100 WBC (Bld) 73.1 % Normal . [facility] Comment on above: Performed By: #### C BC, BMP #### [address] Basic Metabolic Panelon 07-07 Anion gap [Moles/Vol] Not performed Normal 6.0-15.0 [facility] Comment on above: Performed By: #### C BC, BMP #### [address] Creatinine Clr Calc Pharmacy 75.96 Normal [facility] Comment on above: Result Comment: PERF ORMED BY: [place] [address] PATHOLOGIST ACTIVITIES THERAPIST HUI NORTH M.D. Performed By: #### C BC, BMP #### [facility] [address] GFR/1.73 sq M.predicted MDRD (S/P/Bld) [Vol rate/Area] mL/min/{1.73_m2} Normal [facility] Comment on above: Performed By: #### C BC, BMP #### [facility] [address] Potassium Normal 3.5-5.1 [facility] Comment on above: Result Comment: Spec imen hemolyzed, redraw requested Performed By: #### C BC, BMP #### [place] [address] [place] Calcium [Mass/volume] in Ser um or PlasmaOrdered By: Ibrahima Chand on 08-01-2023 Calcium [Mass/Vol] 9.2 mg/dL Normal 8.6-10.3 [facility] Comment on above: Performed By: #### C BC, BMP #### [address] Carbon dioxide, total [Moles /volume] in Serum or PlasmaOrdered By: Ibrahima Chand on 08-01-2023 CO2 [Moles/Vol] 25.7 mmol/L Normal 21.0-31.0 [facility] Comment on above: Performed By: #### C BC, BMP #### [place] [address] [place] Chloride [Moles/volume] in S cristi or PlasmaOrdered By: Ibrahima Chand on 08-01-2023 Chloride [Moles/Vol] 106 mmol/L Normal 98-[address] [facility] Comment on above: Performed By: #### C BC, BMP #### [address] Complete Blood Count Auto Di ffon 08-01-2023 Mean Corpuscular HGB Conc 32.5 g/dL Normal 32.0-35.0 [facility] Comment on above: Performed By: #### C BC, BMP #### [address] NRBC% 0.1 /100{WBC} Normal 0-0.5 [facility] Comment on above: Performed By: #### C BC, BMP #### [address] Creatinine [Mass/volume] in Serum or PlasmaOrdered By: Ibrahima Chand on 08-01-2023 Creatinine [Mass/Vol] 0.79 mg/dL Normal 0.60-1.20 [facility] Comment on above: Performed By: #### C CARLEEN, BMP #### [address] Erythrocyte distribution wid th [Ratio] by Automated countOrdered By: Ibrahima Chand on 08-01-2023 Erythrocyte distribution width (RBC) [Ratio] 14.7 % Normal 11.9-15.3 [facility] Comment on above: Performed By: #### C CARLEEN, BMP #### [address] Erythrocytes [#/volume] in B lood by Automated countOrdered By: Ibrahima Chand on 08-01-2023 RBC (Bld) [#/Vol] 5.07 10*6/uL High 3.60-5.00 [facility] Comment on above: Performed By: #### C BC, BMP #### [address] Glucose [Mass/volume] in Ser um or PlasmaOrdered By: Ibrahima Chand on 08-01-2023 Glucose [Mass/Vol] 157 mg/dL High 70-100 [facility] Comment on above: ADA recommended refe rence rangeRandom Glucose Reference Range is dependent on time and content of last meal. Glucose of more than 200 mg/dL in a nonstressed, ambulatory subject supports the diagnosis of Diabetes Mellitus. Result Comment: [place] om Glucose Reference Range is dependent on time and content of last meal. Glucose of more than 200 mg/dL in a nonstressed, ambulatory subject supports the diagnosis of Diabetes Mellitus. ADA recommended reference range Performed By: #### C BC, BMP #### [address] Hematocrit [Volume Fraction] of Blood by Automated countOrdered By: Ibrahima Chand on 08-01-2023 Hematocrit (Bld) [Volume fraction] 43.1 % Normal 34.0-46.4 [facility] Comment on above: Performed By: #### C BC, BMP #### [address] Hemoglobin [Mass/volume] in BloodOrdered By: Ibrahima Chand on 08-01-2023 Hemoglobin (Bld) [Mass/Vol] 14.0 g/dL Normal 11.8-15.4 [facility] Comment on above: Performed By: #### C BC, BMP #### [address] Yoan 08-01-2023 L Specimen: Received: 08/01/23 Status: WAN Marie Num: [id number] Spec Type: Surgical Subm Dr: Geraldo García DO Tissues: A Breast Morrow Lymph Node (LT SN) B Breast Lumpectmy/Mass - Requiring Micros Eval of Margins (LT BREAST) Procedures: HE/21, Gross/Micro L5/2, Frozen Section, Froz Sec, Add, E CADHERIN/2, IHC First AB, FS HE/4 Age/ Patient Sex Location Account Attending Physician Melony Manley 58/F [place] [id number] Geraldo García DO SPEC NUM: RECD: 08/01/23 STATUS: WAN MARIE NUM: [id number] MANGO: 08/01/[address]: Geraldo García DO ENTERED: 08/01/[address]: SPEC TYPE: Surgical DEPT: S ORDERED: HE/21, Gross/Micro L5/2, Frozen Section, Froz Sec, Add, E CADHERIN/2, IHC First AB, FS HE/4 ORDERED: HE/21, Gross/Micro L5/2, Frozen Section, Frosophia Calixto, Add, E CADHERIN/2, IHC First AB, FS HE/4 Supplemental Report Addendum 1 Entered: 10/10/23-1730 Oncotype DX breast recurrence score report: Recurrence score result: 17 Distant recurrence risk at 9 years: 15% Group average absolute chemotherapy benefit: No apparent benefit. Please see attached report for details. Addendum Signed (signature on file) Garfield Gordillo MD 10/10/231730 Specimen: [id number] Received: 08/01/23-1200 Status: WAN Marie Num: [id number] Spec Type: Surgical Subm Dr: Geraldo García, DO Tissues: A Breast Morrow Lymph Node (LT SN) B Breast Lumpectmy/Mass - Requiring Micros Eval of Margins (LT BREAST) Procedures: HE/21, Gross/Micro L5/2, Frozen Section, Frosophia Calixto, Add, E CADHERIN/2, IHC First AB, FS HE/4 Patient: Melony Manley [id number] (Continued) Specimen: [id number] Received: 08/01/23 (Continued) Signed (signature on file) Garfield Gordillo MD 08/08/23 173 Specimen: [id number] Received: 08/01/23 Status: WAN Marie Num: [id number] Spec Type: Surgical Subm Dr: Geraldo García, Tissues: A Breast Morrow Lymph Node (LT SN) B Breast Lumpectmy/Mass - Requiring Micros Eval of Margins (LT BREAST) Procedures: HE/21, Gross/Micro L5/2, Frozen Section, Paul Sec, Add, E CADHERIN/2, IHC First AB, FS HE/4 Patient: Melony Manley [id number] (Continued) Specimen: [id number] Received: 08/01/23-1200 (Continued) Pathological Diagnosis A. Morrow node, left axilla, biopsy: Metastatic carcinoma to [...] Examined (sentinel and non-sentinel): 4 Number of Morrow Nodes Examined: 4 pTNM CLASSIFICATION (AJCC 8th Edition) Specimen: [id number] Received: 08/01/23 Status: WAN Marie Num: [id number] Spec Type: Surgical Subm Dr: Geraldo García, DO Tissues: A Breast Morrow Lymph Node (LT SN) B Breast Lumpectmy/Mass - Requiring Micros Eval of Margins (LT BREAST (more content not included)... Normal [facility] Leukocytes [#/volume] correc cori for nucleated erythrocytes in Blood by Automated counOrdered By: Ibrahima Chand on 08-01-2023 WBC corrected for nucl RBC Auto (Bld) [#/Vol] 5.5 10*3/uL 3.8-11.6 [facility] Leukocytes [#/volume] in Blo od by Automated countOrdered By: Ibrahima Chand on 08-01-2023 WBC (Bld) [#/Vol] 5.5 10*3/uL Normal 3.8-11.6 [facility] Comment on above: Performed By: #### C BC, BMP #### [facility] [address] [place] [address] [place] Lymphocytes [#/volume] in Bl ood by Automated countOrdered By: Ibrahima Chand on 08-01-2023 Lymphocytes (Bld) [#/Vol] 1.1 10*3/uL Normal 1.00-4.8 [facility] Comment on above: Performed By: #### C BC, BMP #### [facility] [address] [place] [address] [place] Lymphocytes/100 leukocytes i n Blood by Automated countOrdered By: Ibrahima Chand on 08-01-2023 Lymphocytes/100 WBC (Bld) 19.2 % Normal . [facility] Comment on above: Performed By: #### C BC, BMP #### [facility] [address] [place] [address] [place] MCH [Entitic mass] by Automa cori countOrdered By: Ibrahima Chand on 08-01-2023 MCH (RBC) [Entitic mass] 27.6 pg Normal 24.7-34.3 [facility] Comment on above: Performed By: #### C BC, BMP #### [facility] [address] [place] [id number] [facility] MCHC Auto (RBC) [Mass/Vol]Or dered By: Ibrahima Chand on 08-01-2023 MCHC (RBC) [Mass/Vol] 32.5 g/dL 32.0-35.0 [facility] MCV [Entitic volume] by Auto mated countOrdered By: Ibrahima Chand on 08-01-2023 MCV (RBC) [Entitic vol] 84.9 fL Normal 80-100 F [facility] Comment on above: Performed By: #### C BC, BMP #### [facility] [address] [place] [address] MM surgical specimen LTon MM surgical specimen LT [facility] [place] [address] Mammography Report Signed Patient: Melony Manley MR#: [id number] : 1965 Acct:[id number] Age/Sex: 58 / F ADM Date: 08/01/23 Loc: [place] Room: Type: [facility] [...] Sandro Cintron M.D.08/01/2023 1:27 PM Dictation Location: [place] [address] Transcribed By: [facility] 08/01/23 1327 Dictated By: Sandro Cintron DO 08/01/23 1326 Signed By: 08/01/23 1327 Normal [facility] NM sentinel node w imagingon 08-01-2023 NM sentinel node w imaging [facility] [place] [address] Nuclear Medicine Report Signed Patient: Melony Manley MR#: [id number] : 1965 Acct:[id number] Age/Sex: 58 / F ADM Date: 08/01/23 Loc: [place] Room: Type: [facility] Attending Dr: Geraldo García DO Copies to: DO Mateusz Alexandre Jr, DO Ordering Provider: Geraldo García DO Date of Service: 08/01/23 NM/NM sentinel node w imaging: Left Breast Cancer Nuclear medicine Morrow node lymphoscintigraphy. Reason for exam: Left breast [...] Jamison Jr., D.OBeatriz08/01/2023 1:51 PM Dictation Location: [place] [address] Transcribed By: [facility] 08/01/23 1351 Dictated By: Mateusz Jamison Jr, DO 08/01/23 1350 Signed By: 08/01/23 1351 Normal [facility] Neutrophils [#/volume] in Bl ood by Automated countOrdered By: Ibrahima Chand on 08-01-2023 Neutrophils (Bld) [#/Vol] 4.0 10*3/uL Normal 1.8-7.7 [facility] Comment on above: Performed By: #### C BC, BMP #### [facility] [address] [place] [address] No Panel InformationOrdered By: Ibrahima Chand on 08-01-2023 Estimated GFR (CKD-EPI) > 60.0 mL/Min [facility] Creatinine Clearance (Chem 75.96 [facility] Nucleated erythrocytes [Pres ence] in Blood by Automated countOrdered By: Ibrahima Chand on 08-01-2023 Nucleated RBC Auto Ql (Bld) 0.1 /100{WBC} 0-0.5 [facility] Platelet mean volume [Entiti c volume] in Blood by Automated countOrdered By: Ibrahima Chand on 08-01-2023 Platelet mean volume (Bld) [Entitic vol] 8.3 fL Normal 6.3-10.7 [facility] Comment on above: Performed By: #### C BC, BMP #### [address] Platelets [#/volume] in Bloo d by Automated countOrdered By: Ibrahima Chand on 08-01-2023 Platelets (Bld) [#/Vol] 131 10*3/uL Low 150-450 [facility] [facility] Comment on above: Performed By: #### C BC, BMP #### [address] Potassium [Moles/volume] in Serum or PlasmaOrdered By: Geraldo García on 08-01-2023 Potassium [Moles/Vol] 4.5 mmol/L Normal 3.5-5.1 [facility] Comment on above: Order Comment: Angelo bryant send a bundle packer per Christin in Surg Prep. MLG Result Comment: PERF ORMED BY: [place] [address] PATHOLOGIST ACTIVITIES THERAPIST HUI NORTH M.D. Performed By: #### R GREY Cruz #### [address] Serum or plasma anion gap de terminationOrdered By: Ibrahima Chand on 08-01-2023 Anion gap [Moles/Vol] TNP [facility] Comment on above: Test not performed Sodium [Moles/volume] in Ser um or PlasmaOrdered By: Ibrahima Chand on 08-01-2023 Sodium [Moles/Vol] 142 mmol/L Normal 136-145 [facility] Comment on above: Performed By: #### C BC, BMP #### [place] [address] [place] Urea nitrogen [Mass/volume] in Serum or PlasmaOrdered By: Ibrahima Chand on 08-01-2023 Urea nitrogen [Mass/Vol] 9 mg/dL Normal 7-25 [facility] Comment on above: Performed By: #### C BC, BMP #### [facility] [address] [id number] [place] MM needle loc LTon 4 MM needle loc LT [facility] [place] [address] [id number] Mammography Report Signed Patient: Melony Manley MR#: [id number] : 1965 Acct:[id number] Age/Sex: 58 / F ADM Date: 07/24/23 Loc: [place] Room: Type: PRE [facility] Attending Dr: Geraldo García DO Copies to: [...] was placed in mediolateral compression and a data processing supervisor view of the inferior left breast was [...] Althea Tobar M.D.07/31/2023 12:53 PM Dictation Location: DW01 Transcribed By: JONA 07/31/23 1253 Dictated By: Althea Tobar MD 07/31/23 1248 Signed By: 07/31/23 1253 Normal [facility] Human papilloma virus 16+18+ 31+33+35+39+45+51+52+56+58+59+66+68 DNA [Presence] in [place] 07-24-2023 HPV 16+18+31+33+35+39+45+51 +52+56+58+59+66+68 DNA Probe+sig amp Ql (Cvx) Negative Negative [facility] Comment on above: This nucleic acid am plification test detects fourteen high-risk HPV types (16,18,31,33,35,39,45,51,52,56,58,59,66,68)without differentiation.Performed at: =G - [facility] [address] [id number] Director: Venus Acevedo MD, Phone: [phone] at: - [facility] [address] [id number] Director: Venus Acevedo MD, Phone: [phone] No Panel Informationon 07-23 HPV High Risk Other Comment Note . [facility] Comment on above: TESTS RESULT FLAG UN ITS REF RANGE LAB -DIAGNOSIS: 02 NEGATIVE FOR INTRAEPITHELIAL LESION OR MALIGNANCY.Specimen adequacy: 02 Satisfactory for evaluation. Endocervical and/or squamous metaplastic cells (endocervical component) are present.Performed by: Mara Corley Line Controller (ASCP). 02Note: Note 02 The Pap smear [...] Criteria not met, HPV Genotype not performed. -------- FLAG LEGEND: L-Low Normal,H-High Normal,LL-Alert Low,HH-Alert High <-Panic Low,>-Panic High,A-Abnormal,AA-Critical Abnormal ------Performed at:02 WB [facility] [place] [place] [address] Venus Acevedo MD, Reference Lab Test Patient Age Note . [facility] Comment on above: TESTS RESULT FLAG UN ITS REF RANGE LAB - Clinician Provided Cytology Information Source.............Cervix;Endocervix No. of containers..01 ThinPrep VialAge Irena HERNANDEZ Bailey... 30-65 FLAG LEGEND: L-Low Normal,H-High Normal,LL-Alert Low,HH-Alert High <-Panic Low,>-Panic High,A-Abnormal,AA-Critical Abnormal ------Performed at:01 =G [facility] [place] [address] [facility] [place] [address] Venus Acevedo MD, Automated basophil %Ordered By: Geraldo García on 07-19-2023 Basophils/100 WBC (Bld) 0.6 % Normal . [facility] Comment on above: Performed By: #### C CARLEEN, BMP #### [address] Automated basophil countOrde red By: Geraldo García on 07-19-2023 Basophils (Bld) [#/Vol] 0.0 10*3/uL Normal 0.0-0.2 [facility] Comment on above: Result Comment: PERF ORMED BY: [place] [address] PATHOLOGIST ACTIVITIES THERAPIST HUI NORTH M.D. Performed By: #### C CARLEEN, BMP #### [address] Automated blood monocyte cou ntOrdered By: Geraldo García on 07-19-2023 Monocytes (Bld) [#/Vol] 0.3 10*3/uL Normal 0.0-0.8 [facility] Comment on above: Performed By: #### C CARLEEN, BMP #### [address] Automated eosinophil %Ordere d By: Geraldo García on 07-19-2023 Eosinophils/100 WBC (Bld) 0.0 % Normal . [facility] Comment on above: Performed By: #### C BC, BMP #### [address] Automated eosinophil countOr dered By: Geraldo García on 07-19-2023 Eosinophils (Bld) [#/Vol] 0.0 10*3/uL Normal 0.0-0.45 [facility] Comment on above: Performed By: #### C BC, BMP #### [address] Automated monocyte %Ordered By: Geraldo García on 07-19-2023 Monocytes/100 WBC (Bld) 6.6 % Normal . [facility] Comment on above: Performed By: #### C BC, BMP #### [address] Automated neutrophil %Ordere d By: Geraldo García on 07-19-2023 Neutrophils/100 WBC (Bld) 77.1 % Normal . [facility] Comment on above: Performed By: #### C BC, BMP #### [address] Basic Metabolic Panelon 07-06 GFR/1.73 sq M.predicted MDRD (S/P/Bld) [Vol rate/Area] mL/min/{1.73_m2} Normal [facility] Comment on above: Performed By: #### C BC, BMP #### [address] Calcium [Mass/volume] in Ser um or PlasmaOrdered By: Geraldo García on 07-19-2023 Calcium [Mass/Vol] 9.5 mg/dL Normal 8.6-10.3 [facility] Comment on above: Result Comment: PERF ORMED BY: [place] [address] PATHOLOGIST ACTIVITIES THERAPIST HUI NORTH M.D. Performed By: #### C BC, BMP #### [place] [address] [place] Carbon dioxide, total [Moles /volume] in Serum or PlasmaOrdered By: Geraldo García on 07-19-2023 CO2 [Moles/Vol] 27.6 mmol/L Normal 21.0-31.0 [facility] Comment on above: Performed By: #### C BC, BMP #### [place] [address] [place] Chloride [Moles/volume] in S cristi or PlasmaOrdered By: Geraldo García on 07-19-2023 Chloride [Moles/Vol] 101 mmol/L Normal 98-[address] [facility] Comment on above: Performed By: #### C BC, BMP #### [address] Complete Blood Count Auto Di ffon 07-19-2023 Mean Corpuscular HGB Conc 33.1 g/dL Normal 32.0-35.0 [facility] Comment on above: Performed By: #### C BC, BMP #### [address] NRBC% 0.1 /100{WBC} Normal 0-0.5 [facility] Comment on above: Performed By: #### C BC, BMP #### [address] Creatinine [Mass/volume] in Serum or PlasmaOrdered By: Geraldo García on 07-19-2023 Creatinine [Mass/Vol] 0.90 mg/dL Normal 0.60-1.20 [facility] Comment on above: Performed By: #### C BC, BMP #### [address] Erythrocyte distribution wid th [Ratio] by Automated countOrdered By: Geraldo García on 07-19-2023 Erythrocyte distribution width (RBC) [Ratio] 14.1 % Normal 11.9-15.3 [facility] Comment on above: Performed By: #### C BC, BMP #### [place] [address] [place] Erythrocytes [#/volume] in B lood by Automated countOrdered By: Geraldo García on 07-19-2023 RBC (Bld) [#/Vol] 4.69 10*6/uL Normal 3.60-5.00 [facility] Comment on above: Performed By: #### C BC, BMP #### [address] Glucose [Mass/volume] in Ser um or PlasmaOrdered By: Geraldo García on 07-19-2023 Glucose [Mass/Vol] 333 mg/dL High 70-100 [facility] Comment on above: ADA recommended refe rence rangeRandom Glucose Reference Range is dependent on time and content of last meal. Glucose of more than 200 mg/dL in a nonstressed, ambulatory subject supports the diagnosis of Diabetes Mellitus. Result Comment: [place] om Glucose Reference Range is dependent on time and content of last meal. Glucose of more than 200 mg/dL in a nonstressed, ambulatory subject supports the diagnosis of Diabetes Mellitus. ADA recommended reference range Performed By: #### C CARLEEN, BMP #### [address] Hematocrit [Volume Fraction] of Blood by Automated countOrdered By: Geraldo García on 07-19-2023 Hematocrit (Bld) [Volume fraction] 39.2 % Normal 34.0-46.4 [facility] Comment on above: Performed By: #### C CARLEEN, BMP #### [address] Hemoglobin [Mass/volume] in BloodOrdered By: Geraldo García on 07-19-2023 Hemoglobin (Bld) [Mass/Vol] 13.0 g/dL Normal 11.8-15.4 [facility] Comment on above: Performed By: #### C CARLEEN, BMP #### [place] [address] [place] Leukocytes [#/volume] correc cori for nucleated erythrocytes in Blood by Automated counOrdered By: Geraldo García on 07-19-2023 WBC corrected for nucl RBC Auto (Bld) [#/Vol] 4.8 10*3/uL 3.8-11.6 [facility] Leukocytes [#/volume] in Blo od by Automated countOrdered By: Geraldo García on 07-19-2023 WBC (Bld) [#/Vol] 4.8 10*3/uL Normal 3.8-11.6 [facility] Comment on above: Performed By: #### C CARLEEN, BMP #### [place] [address] [place] Lymphocytes [#/volume] in Bl ood by Automated countOrdered By: Geraldo García on 07-19-2023 Lymphocytes (Bld) [#/Vol] 0.7 10*3/uL Low 1.00-4.8 [facility] Comment on above: Performed By: #### C BC, BMP #### [address] Lymphocytes/100 leukocytes i n Blood by Automated countOrdered By: Geraldo García on 07-19-2023 Lymphocytes/100 WBC (Bld) 15.7 % Normal . [facility] Comment on above: Performed By: #### C BC, BMP #### [address] MCH [Entitic mass] by Automa cori countOrdered By: Geraldo García on 07-19-2023 MCH (RBC) [Entitic mass] 27.7 pg Normal 24.7-34.3 [facility] Comment on above: Performed By: #### C BC, BMP #### [address] MCHC Auto (RBC) [Mass/Vol]Or dered By: Geraldo García on 07-19-2023 MCHC (RBC) [Mass/Vol] 33.1 g/dL 32.0-35.0 [facility] MCV [Entitic volume] by Auto mated countOrdered By: Geraldo García on 07-19-2023 MCV (RBC) [Entitic vol] 83.7 fL Normal 80-100 [facility] Comment on above: Performed By: #### C BC, BMP #### [address] Neutrophils [#/volume] in Bl ood by Automated countOrdered By: Geraldo García on 07-19-2023 Neutrophils (Bld) [#/Vol] 3.7 10*3/uL Normal 1.8-7.7 [facility] Comment on above: Performed By: #### C BC, BMP #### [facility] [address] No Panel InformationOrdered By: Geraldo García on 07-19-2023 Estimated GFR (CKD-EPI) > 60.0 mL/Min [facility] Creatinine Clearance (Chem N/A [facility] Nucleated erythrocytes [Pres ence] in Blood by Automated countOrdered By: Geraldo García on 07-19-2023 Nucleated RBC Auto Ql (Bld) 0.1 /100{WBC} 0-0.5 [facility] Platelet mean volume [Entiti c volume] in Blood by Automated countOrdered By: Geraldo García on 07-19-2023 Platelet mean volume (Bld) [Entitic vol] 8.4 fL Normal 6.3-10.7 [facility] Comment on above: Performed By: #### C CARLEEN, BMP #### [address] Platelets [#/volume] in Bloo d by Automated countOrdered By: Geraldo García on 07-19-2023 Platelets (Bld) [#/Vol] 127 10*3/uL Low 150-450 [facility] Comment on above: Performed By: #### C CARLEEN, BMP #### [address] Potassium [Moles/volume] in Serum or PlasmaOrdered By: Geraldo García on 07-19-2023 Potassium [Moles/Vol] 3.8 mmol/L Normal 3.5-5.1 [facility] Comment on above: Performed By: #### C BC, BMP #### [address] Serum or plasma anion gap de terminationOrdered By: Geraldo García on 07-19-2023 Anion gap [Moles/Vol] 12.2 mmol/L Normal 6.0-15.0 [facility] Comment on above: Performed By: #### C BC, BMP #### [address] Sodium [Moles/volume] in Ser um or PlasmaOrdered By: Geraldo García on 07-19-2023 Sodium [Moles/Vol] 137 mmol/L Normal 136-145 [facility] Comment on above: Performed By: #### C BC, BMP #### [facility] [address] [place] [address] [facility] Urea nitrogen [Mass/volume] in Serum or PlasmaOrdered By: Geraldo García on 07-19-2023 Urea nitrogen [Mass/Vol] 12 mg/dL Normal 7-25 [facility] Comment on above: Performed By: #### C BC, BMP #### [facility] [address] [id number] [facility] US breast LT limitedon 07-11 US breast LT limited [facility] [place] [address] [place] [address] Ultrasound Report Signed Patient: Melony Manley MR#: [id number] : 1965 Acct:[id number] Age/Sex: 58 / F ADM Date: 07/12/23 Loc: [facility] Room: Type: [facility] [place] [...] Althea Tobar M.D.07/12/2023 2:30 PM Dictation Location: [facility] Tech: Sheyla William Transcribed By: JONA 07/12/23 1430 Dictated By: Althea Tobar MD 07/12/23 1418 Signed By: 07/12/23 1430 Normal [facility] MRI BREAST BILATERAL W WO [...] Anthony Pichardo MD 06/30/23 Final result Normal [facility] Basophils Auto (Bld) [#/Vol] Ordered By: Geraldo García on 05-02-2023 Basophils (Bld) [#/Vol] 0.0 10*3/uL 0.0-0.2 [facility] Basophils/100 WBC Auto (Bld) Ordered By: Geraldo García on 05-02-2023 Basophils/100 WBC (Bld) 0.5 % . [facility] Calcium [Mass/volume] in Ser um or PlasmaOrdered By: Geraldo García on 05-02-2023 Calcium [Mass/Vol] 9.8 mg/dL 8.6-10.3 [facility] Carbon dioxide, total [Moles /volume] in Serum or PlasmaOrdered By: Geraldo García on 05-02-2023 CO2 [Moles/Vol] 26.0 mmol/L 21.0-31.0 [facility] Chloride [Moles/volume] in S cristi or PlasmaOrdered By: Geraldo García on 05-02-2023 Chloride [Moles/Vol] 107 mmol/L 98-[address] [facility] Creatinine [Mass/volume] in Serum or PlasmaOrdered By: Geraldo García on 05-02-2023 Creatinine [Mass/Vol] 0.93 mg/dL 0.60-1.20 [facility] Eosinophils Auto (Bld) [#/Vo l]Ordered By: Geraldo García on 05-02-2023 Eosinophils (Bld) [#/Vol] 0.0 10*3/uL 0.0-0.45 [facility] Eosinophils/100 WBC Auto (Bl d)Ordered By: Geraldo García on 05-02-2023 Eosinophils/100 WBC (Bld) 0.0 % . [facility] Erythrocyte distribution wid th Auto (RBC) [Ratio]Ordered By: Geraldo García on 05-02-2023 Erythrocyte distribution width (RBC) [Ratio] 14.0 % 11.9-15.3 [facility] Glucose [Mass/volume] in Ser um or PlasmaOrdered By: Geraldo García on 05-02-2023 Glucose [Mass/Vol] 147 mg/dL 70-100 [facility] Comment on above: ADA recommended refe rence rangeRandom Glucose Reference Range is dependent on time and content of last meal. Glucose of more than 200 mg/dL in a nonstressed, ambulatory subject supports the diagnosis of Diabetes Mellitus. Hematocrit Auto (Bld) [Volum e fraction]Ordered By: Geraldo García on 05-02-2023 Hematocrit (Bld) [Volume fraction] 38.9 % 34.0-46.4 [facility] Hemoglobin [Mass/volume] in BloodOrdered By: Geraldo García on 05-02-2023 Hemoglobin (Bld) [Mass/Vol] 12.9 g/dL 11.8-15.4 [facility] Leukocytes [#/volume] correc cori for nucleated erythrocytes in Blood by Automated counOrdered By: Geraldo García on 05-02-2023 WBC corrected for nucl RBC Auto (Bld) [#/Vol] 5.7 10*3/uL 3.8-11.6 [facility] Lymphocytes Auto (Bld) [#/Vo l]Ordered By: Geraldo García on 05-02-2023 Lymphocytes (Bld) [#/Vol] 1.2 10*3/uL 1.00-4.8 [facility] Lymphocytes/100 WBC Auto (Bl d)Ordered By: Geraldo García on 05-02-2023 Lymphocytes/100 WBC (Bld) 21.5 % . [facility] MCH Auto (RBC) [Entitic mass ]Ordered By: Geraldo García on 05-02-2023 MCH (RBC) [Entitic mass] 28.4 pg 24.7-34.3 [facility] MCHC Auto (RBC) [Mass/Vol]Or dered By: Geraldo García on 05-02-2023 MCHC (RBC) [Mass/Vol] 33.1 g/dL 32.0-35.0 [facility] MCV Auto (RBC) [Entitic vol] Ordered By: Geraldo García on 05-02-2023 MCV (RBC) [Entitic vol] 85.8 fL 80-100 [facility] Monocytes Auto (Bld) [#/Vol] Ordered By: Geraldo García on 05-02-2023 Monocytes (Bld) [#/Vol] 0.4 10*3/uL 0.0-0.8 [facility] Monocytes/100 WBC Auto (Bld) Ordered By: Geraldo García on 05-02-2023 Monocytes/100 WBC (Bld) 6.5 % . [facility] Neutrophils Auto (Bld) [#/Vo l]Ordered By: Geraldo García on 05-02-2023 Neutrophils (Bld) [#/Vol] 4.0 10*3/uL 1.8-7.7 [facility] Neutrophils/100 WBC Auto (Bl d)Ordered By: Geraldo García on 05-02-2023 Neutrophils/100 WBC (Bld) 71.5 % . [facility] No Panel InformationOrdered By: Geraldo García on 05-02-2023 Estimated GFR (CKD-EPI) > 60.0 mL/Min [facility] Creatinine Clearance (Chem N/A [facility] Nucleated erythrocytes [Pres ence] in Blood by Automated countOrdered By: Geraldo García on 05-02-2023 Nucleated RBC Auto Ql (Bld) 0.0 /100{WBC} 0-0.5 [facility] Platelet mean volume Auto (B ld) [Entitic vol]Ordered By: Geraldo García on 05-02-2023 Platelet mean volume (Bld) [Entitic vol] 7.9 fL 6.3-10.7 [facility] Platelets Auto (Bld) [#/Vol] Ordered By: Geraldo García on 05-02-2023 Platelets (Bld) [#/Vol] 146 10*3/uL 150-450 [facility] Potassium [Moles/volume] in Serum or PlasmaOrdered By: Geraldo García on 05-02-2023 Potassium [Moles/Vol] 4.2 mmol/L 3.5-5.1 [facility] RBC Auto (Bld) [#/Vol]Ordere d By: Geraldo García on 05-02-2023 RBC (Bld) [#/Vol] 4.53 10*6/uL 3.60-5.00 [facility] Serum or plasma anion gap de terminationOrdered By: Geraldo García on 05-02-2023 Anion gap [Moles/Vol] 13.2 mmol/L 6.0-15.0 [facility] Sodium [Moles/volume] in Ser um or PlasmaOrdered By: Geraldo García on 05-02-2023 Sodium [Moles/Vol] 142 mmol/L 136-145 [facility] Urea nitrogen [Mass/volume] in Serum or PlasmaOrdered By: Geraldo García on 05-02-2023 Urea nitrogen [Mass/Vol] 12 mg/dL 7-25 [facility] WBC Auto (Bld) [#/Vol]Ordere d By: Geraldo García on 05-02-2023 WBC (Bld) [#/Vol] 5.7 10*3/uL 3.8-11.6 [facility] MG MAMM LT DIAG FUon 023 MG MAMM LT DIAG FU Patient: MELONY MANLEY Exam Date: 08/26/2022 : 1965 Gender:F Ordering : DR LITTLE STAFFORD . Admission #: [id number] Family : Order #: [id number] CLICK HERE TO VIEW EXAM RADIOLOGY REPORT PROCEDURE: MAMMOGRAM LEFT DIAGNOSTIC DIGITAL FOLLOW UP, 08/26/2022, 13:41 ULTRASOUND BREAST LEFT LIMITED, 08/26/2022, 14:06 COMPARISON: MG MAMM SCREEN 3D SOLITARIO CAD, 08/01/2022. INDICATIONS: Abnormal findings on diagnostic imaging of breast Calculator Name [facility] Breast Cancer Risk Assessment Tool 5 Year Breast Cancer Risk 1.10% Lifetime Breast Cancer Risk 6.30% Personal Breast Cancer No Personal Ovarian Cancer No Treatments None Family Cancers Mother with stomach cancer at age 55. LOCATION: [facility] BREAST COMPOSITION: Heterogeneously dense,which may obscure small [...] LUMP SHOULD BE BIOPSIED. Dictated by: Thea Neumann M.D. on 08/26/2022 at 14:23 Approved by: Thea Neumann M.D. on 08/26/2022 at 14:39 Normal [facility] US BREAST LEFT LIMITEDon US BREAST LEFT LIMITED Patient: MELONY MANLEY Exam Date: 08/26/2022 : 1965 Gender:F Ordering : DR LITTLE STAFFORD . Admission #: [id number] Family : Order #: [id number] CLICK HERE TO VIEW EXAM RADIOLOGY REPORT [...] stomach cancer at age 54. LOCATION: [facility] BREAST COMPOSITION: Heterogeneously dense,which may obscure small [...] LUMP SHOULD BE BIOPSIED. Dictated by: Thea Neumann M.D. on 08/26/2022 at 14:23 Approved by: Thea Neumann M.D. on 08/26/2022 at 14:39 Normal [facility] MAMM SCREEN 3D SOLITARIO CADon 08-01-2022 MG MAMM SCREEN 3D SOLITARIO CAD Patient: MELONY MANLEY Exam Date: 08/01/2022 : 1965 Gender:F Ordering : DR LITTLE STAFFORD . Admission #: [id number] Family : Order #: [id number] CLICK HERE TO VIEW EXAM RADIOLOGY REPORT [...] stomach cancer at age 54. LOCATION: [facility] BREAST COMPOSITION: Heterogeneously dense,which may obscure small [...] LUMP SHOULD BE BIOPSIED. Dictated by: Thea Neumann M.D. on 08/01/2022 at 12:20 Approved by: Thea Neumann M.D. on 08/01/2022 at 12:26 Normal [facility] XR DEXA BONE DENSITYon 08-01 XR DEXA [...] Moderate Fracture Risk Electronically authenticated by: THEA NEUMANN Date: 2022-08-01 11:39 Normal [facility] PAP ACOG PANEL 2: 30 to 65on 07-26-2022 . . Normal [facility] Comment on above: Result Comment: Perf ormed at: WB Performed By: #### [id number] #### [facility] [address] [address] [address] Devon Gillette Age Gdln ACOG Testing 30-65 Normal [facility] Comment on above: Performed By: #### [id number] #### [facility] [address] [address] [address] Devon Gillette DIAGNOSIS: Comment Normal [facility] Comment on above: Result Comment: NEGA TIVE FOR INTRAEPITHELIAL LESION OR MALIGNANCY. Performed at: WB Performed By: #### [id number] #### [facility] [address] [place] [address] Dr. eDvon Gillette HPV Aptima Negative Normal Negative [facility] Comment on above: Result Comment: This nucleic acid amplification test detects fourteen high-risk HPV types (16,18,31,33,35,39,45,51,52,56,58,59,66,68) without differentiation. Performed at: =G Performed By: #### [id number] #### [facility] [address] [place] [address] Dr. Devon Gillette HPV Genotype Reflex Comment Normal [facility] Comment on above: Result Comment: Crit eria not met, HPV Genotype not performed. Performed at: WB Performed By: #### [id number] #### [facility] [address] [place] [address] Dr. Devon Gillette Methodology: Comment Normal [facility] Comment on above: Result Comment: This liquid based ThinPrep(R) pap test was screened with the use of an image guided system. Performed at: WB Performed By: #### [id number] #### [facility] [address] [place] [address] Dr. Devon Gillette Note: Comment Normal [facility] Comment on above: Result Comment: The Pap smear is a screening test designed to aid in the detection of premalignant and malignant conditions of the uterine cervix. It is not a diagnostic procedure and should not be used as the sole means of detecting cervical cancer. Both false-positive and false-negative reports do occur. . Performed at: WB Performed By: #### [id number] #### [facility] [address] [place] [address] Dr. Devon Gillette Performed by: Comment Normal [facility] Comment on above: Result Comment: Anjelica Girard, Line Controller (ASCP) Performed at: WB Performed By: #### [id number] #### [facility] [address] [place] [address] Dr. Devon Gillette Specimen adequacy: Comment Normal [facility] Comment on above: Result Comment: Sati sfactory for evaluation. Endocervical and/or squamous metaplastic cells (endocervical component) are present. Performed at: WB Performed By: #### [id number] #### [facility] [address] [place] [address] Dr. Deovn Gillette VAGINITIS/VAGINOSIS DNA PROB Jim 07-20-2022 Anni species Negative Normal Negative [facility] Comment on above: Performed By: #### V AGINT #### [facility] [address] [place] [address] Dr. Devon Gillette Gardnerella vaginalis Positive Abnormal Negative [facility] Comment on above: Performed By: #### V AGINT #### [facility] [address] [place] [address] Dr. Devon Gillette Trichomonas vaginalis Negative Normal Negative [facility] Comment on above: Performed By: #### V AGINT #### [facility] [address] [place] [address] Dr. Devon Gillette CULTURE URINEon 04-21-2022 CULTURE URINE Culture Observations : LIGHT GROWTH OF MIXED GENITAL LAZARO. NO POTENTIAL PATHOGENS SEEN. Normal [facility] Comment on above: Performed By: #### G FRANKIE, TSH, LIPID, CREA #### [facility] [address] [place] [address] Dr. Devon Gillette LITHIUMon 04-15-2022 [place] (Eskalith(R)), Serum 0.6 mmol/L Normal 0.5-1.2 [facility] Comment on above: Result Comment: A co ncentration of 0.5-0.8 mmol/L is advised for long-term use; concentrations of up to 1.2 mmol/L may be necessary during acute treatment. Detection Limit = 0.1 <0.1 indicates None Detected Performed By: #### G FRANKIE, TSH, LIPID, CREA #### [facility] [address] [place] [address] Dr. Devon Gillette CREATININEon 04-14-2022 Creatinine [Mass/Vol] 0.89 mg/dL Normal 0.55-1.02 [facility] Comment on above: Performed By: #### G FRANKIE, TSH, LIPID, CREA #### [facility] [address] [address] [address] Devon Gillette EGFR-AF PANAMANIAN >60 Normal >=60 [facility] Comment on above: Performed By: #### G FRANKIE, TSH, LIPID, CREA #### [facility] [address] [address] [address] Devon Gillette EGFR-NON AF PANAMANIAN >60 Normal >=60 [facility] Comment on above: Performed By: #### G FRANKIE, TSH, LIPID, CREA #### [facility] [address] [address] [address] Devon Gillette GLUCOSE BLOODon 04-14-2022 Glucose [Mass/Vol] 118 mg/dL Critically high 74-106 [facility] Comment on above: Performed By: #### G FRANKIE, TSH, LIPID, CREA #### [facility] [address] [address] [address] Devon Gillette LIPID PROFILEon 04-14-2022 CHOL-HDL RATIO NORM SEE BELOW Normal [facility] Comment on above: Result Comment: 3.3 - 4.4 LOW RISK 4.4 - 7.1 AVERAGE RISK 7.1 - 11.0 MODERATE RISK >11.0 HIGH RISK Performed By: #### G FRANKIE, TSH, LIPID, CREA #### [facility] [address] [address] [address] Devon Gillette Cholesterol [Mass/Vol] 128 mg/dL Normal <=200 [facility] Comment on above: Performed By: #### G FRANKIE, TSH, LIPID, CREA #### [facility] [address] [address] [address] Devon Gillette Cholesterol in HDL [Mass/Vol] 47 mg/dL Normal 40-60 [facility] Comment on above: Performed By: #### G FRANKIE, TSH, LIPID, CREA #### [facility] [address] [address] [address] Devon Gillette Cholesterol in LDL [Mass/Vol] 34.6 mg/dL Normal [facility] Comment on above: Performed By: #### G FRANKIE, TSH, LIPID, CREA #### [facility] [address] [address] [address] Devon Gillette Cholesterol.total/Juanita sterol in HDL [Mass ratio] 2.7 {ratio} Normal [facility] Comment on above: Performed By: #### G FRANKIE, TSH, LIPID, CREA #### [facility] [address] [address] [address] Devon Gillette HDL NORMAL > or = 60 mg/dl - LO W CARDIOVASCULAR RISK <40 mg/dl - HIGH CARDIOVASCULAR RISK Normal [facility] Comment on above: Performed By: #### G FRANKIE, TSH, LIPID, CREA #### [facility] [address] [address] [address] Devon Gillette LDL CALC NORMAL SEE BELOW Normal [facility] Comment on above: Result Comment: <100 mg/dl OPTIMAL 100 - 129 mg/dl NEAR OR ABOVE OPTIMAL 130 - 159 mg/dl BORDERLINE HIGH 160 - 189 mg/dl HIGH >190 mg/dl VERY HIGH Performed By: #### G FRANKIE, TSH, LIPID, CREA #### [facility] [address] [address] [address] Devon Gillette Triglyceride [Mass/Vol] 232 mg/dL Critically high <=150 [facility] Comment on above: Performed By: #### G FRANKIE, TSH, LIPID, CREA #### [facility] [address] [address] [address] Devon Gillette VLDL CALC 46.4 mg/dL Normal [facility] Comment on above: Performed By: #### G FRANKIE, TSH, LIPID, CREA #### [facility] [address] [address] [address] Devon Gillette TSHon 04-14-2022 TSH 0.375 uIU/mL Normal 0.358-3.740 [facility] Comment on above: Performed By: #### G FRANKIE, TSH, LIPID, CREA #### [facility] [address] [address] [address] Devon Gillette CULTURE URINEon 03-30-2022 CULTURE URINE Isolate 1 Proteus mirabilis 15,000 cfu/mL of ORGANISM 1 Proteus mirabilis ANTIBIOTIC M.I.C RX STATUS Ampicillin <=2 S F Ampicillin/Sulbactam <=2 S F Piperacillin/Tazobactam <=4 S F Cefazolin <=4 S F Ceftazidime <=1 S F Ceftriaxone <=1 S F Ertapenem <=0.5 S F Imipenem 2 S F Amikacin <=2 S F Gentamicin <=1 S F Tobramycin <=1 S F Ciprofloxacin <=0.25 S F Levofloxacin <=0.12 S F Nitrofurantoin 128 R F Trimethoprim/Sulfametho xazole <=20 S F Normal [facility] Comment on above: Performed By: #### U RCX #### [facility] [address] [place] [address] Dr. Devon Gillette LITHIUMon 12-28-2021 [place] (Eskalith(R)), Serum 0.7 mmol/L Normal 0.5-1.2 [facility] Comment on above: Result Comment: Plas ma concentration of 0.5 - 0.8 mmol/L are advised for long-term use; concentrations of up to 1.2 mmol/L may be necessary during acute treatment. Detection Limit = 0.1 <0.1 indicates None Detected Performed By: #### G FRANKIE, TSH, LIPID, CREA #### [facility] [address] [place] [address] Dr. Devon Gillette CREATININEon 12-27-2021 Creatinine [Mass/Vol] 1.10 mg/dL Critically high 0.55-1.02 [facility] Comment on above: Performed By: #### G FRANKIE, TSH, LIPID, CREA #### [facility] [address] [place] [address] Dr. Devon Gillette EGFR-AF PANAMANIAN >60 Normal >=60 [facility] Comment on above: Performed By: #### G FRANKIE, TSH, LIPID, CREA #### [facility] [address] [place] [address] Dr. Devon Gillette EGFR-NON AF PANAMANIAN 51 mL/min/1.73m2 Critically low >=60 [facility] Comment on above: Performed By: #### G FRANKIE, TSH, LIPID, CREA #### [facility] [address] [address] [address] Devon Gillette DIRECT LDLon 12-27-2021 Cholesterol in LDL [Mass/Vol] 133 mg/dL Normal [facility] Comment on above: Performed By: #### G FRANKIE, TSH, LIPID, CREA #### [facility] [address] [address] [address] Devon Gillette DLDL NORMAL SEE BELOW Normal [facility] Comment on above: Result Comment: <100 mg/dl OPTIMAL 100 - 129 mg/dl NEAR OR ABOVE OPTIMAL 130 - 159 mg/dl BORDERLINE HIGH 160 - 189 mg/dl HIGH >190 mg/dl VERY HIGH Performed By: #### G FRANKIE, TSH, LIPID, CREA #### [facility] [address] [place] [address] Dr. Devon Gillette GLUCOSE BLOODon 12-27-2021 Glucose [Mass/Vol] 151 mg/dL Critically high 74-106 [facility] Comment on above: Performed By: #### G FRANKIE, TSH, LIPID, CREA #### [facility] [address] [place] [address] Dr. Devon Gillette LIPID PROFILEon 12-27-2021 CHOL-HDL RATIO NORM SEE BELOW Normal [facility] Comment on above: Result Comment: 3.3 - 4.4 LOW RISK 4.4 - 7.1 AVERAGE RISK 7.1 - 11.0 MODERATE RISK >11.0 HIGH RISK Performed By: #### G FRANKIE, TSH, LIPID, CREA #### [facility] [address] [place] [address] Dr. Devon Gillette Cholesterol [Mass/Vol] 244 mg/dL Critically high <=200 [facility] Comment on above: Performed By: #### G FRANKIE, TSH, LIPID, CREA #### [facility] [address] [place] [address] Dr. Devon Gillette Cholesterol in HDL [Mass/Vol] 33 mg/dL Critically low 40-60 [facility] Comment on above: Performed By: #### G FRANKIE, TSH, LIPID, CREA #### [facility] [address] [address] [address] Devon Gillette Cholesterol.total/Juanita sterol in HDL [Mass ratio] 7.4 {ratio} Normal [facility] Comment on above: Performed By: #### G FRANKIE, TSH, LIPID, CREA #### [facility] [address] [place], [place] [address] Dr. Devon Gillette HDL NORMAL > or = 60 mg/dl - LO W CARDIOVASCULAR RISK <40 mg/dl - HIGH CARDIOVASCULAR RISK Normal [facility] Comment on above: Performed By: #### G FRANKIE, TSH, LIPID, CREA #### [facility] [address] [address] [address] Devon Gillette Triglyceride [Mass/Vol] 431 mg/dL Critically high <=150 [facility] Comment on above: Performed By: #### G FRANKIE, TSH, LIPID, CREA #### [facility] [address] [address] [address] Devon Gillette Vital Signs Date Time Vital Sign Value Performing Clinician Facility 06-11-2024 08:44-0500 Body height 162.56 cm Susan Ayala MD Work Phone: [facility] 06-11-2024 08:44-0500 Body mass index (BMI) [Ratio] 27.1 kg/m2 Susan Ayala MD Work Phone: [facility] 06-11-2024 08:44-0500 Body weight 71.66 kg Susan Ayala MD Work Phone: [facility] 06-11-2024 08:44-0500 Diastolic blood pressure 66 mm[Hg] Susan Ayala MD Work Phone: [facility] 06-11-2024 08:44-0500 Heart rate 66 /min Susan Ayala MD Work Phone: [facility] 06-11-2024 08:44-0500 Systolic blood pressure 102 mm[Hg] Susan Ayala MD Work Phone: [facility] 05-24-2024 13:26-0500 Body height 162.56 cm Susan Ayala MD Work Phone: [facility] 05-24-2024 13:26-0500 Body mass index (BMI) [Ratio] 27.4 kg/m2 Susan Ayala MD Work Phone: [facility] 05-24-2024 13:26-0500 Body weight 72.57 kg Susan Ayala MD Work Phone: [facility] 05-24-2024 13:26-0500 Diastolic blood pressure 84 mm[Hg] Susan Ayala MD Work Phone: [facility] 05-24-2024 13:26-0500 Heart rate 109 /min Susan Ayala MD Work Phone: [facility] 05-24-2024 13:26-0500 Systolic blood pressure 128 mm[Hg] Susan Ayala MD Work Phone: [facility] 05-23-2024 11:45-0500 Body height 162.56 cm Susan Ayala MD Work Phone: [facility] 05-23-2024 11:45-0500 Body mass index (BMI) [Ratio] 27.3 kg/m2 Susan Ayala MD Work Phone: [facility] 05-23-2024 11:45-0500 Body temperature 97.6 [degF] Susan Ayala MD Work Phone: [facility] 05-23-2024 11:45-0500 Body weight 72.12 kg Susan Ayala MD Work Phone: [facility] 05-23-2024 11:45-0500 Diastolic blood pressure 83 mm[Hg] Susan Ayala MD Work Phone: [facility] 05-23-2024 11:45-0500 Heart rate 103 /min Susan Ayala MD Work Phone: [facility] 05-23-2024 11:45-0500 Respiratory rate 20 /min Susan Ayala MD Work Phone: [facility] 05-23-2024 11:45-0500 SaO2% (BldA) [Mass fraction] 99 % Susan Ayala MD Work Phone: [facility] 05-23-2024 11:45-0500 Systolic blood pressure 149 mm[Hg] Susan Ayala MD Work Phone: [facility] 05-17-2024 11:14-0500 Body height 162.56 cm Susan Ayala MD Work Phone: [facility] 05-17-2024 11:14-0500 Body mass index (BMI) [Ratio] 27.1 kg/m2 Susan Ayala MD Work Phone: [facility] 05-17-2024 11:14-0500 Body temperature 98.9 [degF] Susan Ayala MD Work Phone: [facility] 05-17-2024 11:14-0500 Body weight 71.66 kg Susan Ayala MD Work Phone: [facility] 05-17-2024 11:14-0500 Diastolic blood pressure 85 mm[Hg] Susan Ayala MD Work Phone: [facility] 05-17-2024 11:14-0500 Heart rate 93 /min Susan Ayala MD Work Phone: [facility] 05-17-2024 11:14-0500 SaO2% (BldA) [Mass fraction] 99 % Susan Ayala MD Work Phone: [facility] 05-17-2024 11:14-0500 Systolic blood pressure 144 mm[Hg] Susan Ayala MD Work Phone: [facility] 04-10-2024 12:50-0500 Body height 162.6 cm Mabel Oscar MD Work Phone: [facility] 04-10-2024 12:50-0500 Diastolic blood pressure 78 mm[Hg] Mabel Oscar MD Work Phone: [facility] 04-10-2024 12:50-0500 Systolic blood pressure 150 mm[Hg] Mabel Oscar MD Work Phone: [facility] 03-25-2024 14:49-0500 Body height 1950.72 cm Susan Ayala MD Work Phone: [facility] 03-25-2024 14:49-0500 Body mass index (BMI) [Ratio] 0.1 kg/m2 Susan Ayala MD Work Phone: [facility] 03-25-2024 14:49-0500 Body weight 70.76 kg Susan Ayala MD Work Phone: [facility] 03-25-2024 14:49-0500 Diastolic blood pressure 77 mm[Hg] Susan Ayala MD Work Phone: [facility] 03-25-2024 14:49-0500 Heart rate 87 /min Susan Ayala MD Work Phone: [facility] 03-25-2024 14:49-0500 Systolic blood pressure 133 mm[Hg] Susan Ayala MD Work Phone: [facility] 03-22-2024 10:31-0500 Body height 162.56 cm Susan Ayala MD Work Phone: [facility] 03-22-2024 10:31-0500 Body mass index (BMI) [Ratio] 26.7 kg/m2 Susan Ayala MD Work Phone: [facility] 03-22-2024 10:31-0500 Body temperature 97.9 [degF] Susan Ayala MD Work Phone: [facility] 03-22-2024 10:31-0500 Body weight 70.76 kg Susan Ayala MD Work Phone: [facility] 03-22-2024 10:31-0500 Diastolic blood pressure 85 mm[Hg] Susan Ayala MD Work Phone: [facility] 03-22-2024 10:31-0500 Heart rate 91 /min Susan Ayala MD Work Phone: [facility] 03-22-2024 10:31-0500 Respiratory rate 16 /min Susan Ayala MD Work Phone: [facility] 03-22-2024 10:31-0500 SaO2% (BldA) [Mass fraction] 99 % Susan Ayala MD Work Phone: [facility] 03-22-2024 10:31-0500 Systolic blood pressure 129 mm[Hg] Susan Ayala MD Work Phone: [facility] 03-16-2024 09:13-0500 Body height 162.56 cm Susan Ayala MD Work Phone: [facility] 03-16-2024 09:13-0500 Body mass index (BMI) [Ratio] 27.3 kg/m2 Susan Ayala MD Work Phone: [facility] 03-16-2024 09:13-0500 Body temperature 98.5 [degF] Susan Ayala MD Work Phone: [facility] 03-16-2024 09:13-0500 Body weight 72.12 kg Susan Ayala MD Work Phone: [facility] 03-16-2024 09:13-0500 Diastolic blood pressure 77 mm[Hg] Susan Ayala MD Work Phone: [facility] 03-16-2024 09:13-0500 Heart rate 94 /min Susan Ayala MD Work Phone: [facility] 03-16-2024 09:13-0500 Respiratory rate 16 /min Susan Ayala MD Work Phone: [facility] 03-16-2024 09:13-0500 SaO2% (BldA) [Mass fraction] 97 % Susan Ayala MD Work Phone: [facility] 03-16-2024 09:13-0500 Systolic blood pressure 123 mm[Hg] Susan Ayala MD Work Phone: [facility] 03-07-2024 13:23-0400 Body height 162.6 cm Gilson Portillo DPM Work Phone: [facility] 03-07-2024 13:23-0400 Body mass index (BMI) [Ratio] 28.15 kg/m2 Gilson Portillo DPM Work Phone: [facility] 03-07-2024 13:23-0400 Body weight 74.39 kg Gilson Portillo DPM Work Phone: [facility] 03-07-2024 13:23-0400 Heart rate 81 /min Gilson Portillo DPM Work Phone: [facility] 02-20-2024 08:130400 Body height 162.56 cm MD Susan Ayala Work Phone: [facility] 02-20-2024 08:13-0400 Body mass index (BMI) [Ratio] 27.1 kg/m2 MD Susan Ayala Work Phone: [facility] 02-20-2024 08:13-0400 Body weight 71.78 kg MD Susan Ayala Work Phone: [facility] 02-20-2024 08:13-0400 Diastolic blood pressure 62 mm[Hg] MD Susan Ayala Work Phone: [facility] 02-20-2024 08:13-0400 Heart rate 89 /min MD Susan Ayala Work Phone: [facility] 02-20-2024 08:13-0400 Respiratory rate 16 /min MD Susan Ayala Work Phone: [facility] 02-20-2024 08:13-0400 SaO2% (BldA) [Mass fraction] 97 % MD Susan Ayala Work Phone: [facility] 02-20-2024 08:13-0400 Systolic blood pressure 126 mm[Hg] MD Susan Ayala Work Phone: [facility] 02-15-2024 13:01-0400 Body height 162.56 cm MD Susan Ayala Work Phone: [facility] 02-15-2024 13:01-0400 Body mass index (BMI) [Ratio] 27.3 kg/m2 MD Susan Ayala Work Phone: [facility] 02-15-2024 13:01-0400 Body temperature 98.2 [degF] MD Susan Ayala Work Phone: [facility] 02-15-2024 13:01-0400 Body weight 72.12 kg MD Susan Ayala Work Phone: [facility] 02-15-2024 13:01-0400 Diastolic blood pressure 78 mm[Hg] MD Susan Ayala Work Phone: [facility] 02-15-2024 13:01-0400 Heart rate 82 /min MD Susan Ayala Work Phone: [facility] 02-15-2024 13:01-0400 Respiratory rate 20 /min MD Susan Ayala Work Phone: [facility] 02-15-2024 13:01-0400 SaO2% (BldA) [Mass fraction] 100 % MD Susan Ayala Work Phone: [facility] 02-15-2024 13:01-0400 Systolic blood pressure 127 mm[Hg] MD Susan Ayala Work Phone: [facility] 01-03-2024 13:56-0400 Body temperature 99.1 [degF] MD Susan Ayala Work Phone: [facility] 01-03-2024 13:56-0400 Body weight 72.12 kg MD Susan Ayala Work Phone: [facility] 01-03-2024 13:56-0400 Diastolic blood pressure 77 mm[Hg] MD Susan Ayala Work Phone: [facility] 01-03-2024 13:56-0400 Heart rate 107 /min MD Susan Ayala Work Phone: [facility] 01-03-2024 13:56-0400 Respiratory rate 16 /min MD Susan Ayala Work Phone: [facility] 01-03-2024 13:56-0400 SaO2% (BldA) [Mass fraction] 98 % MD Susan Ayala Work Phone: [facility] 01-03-2024 13:56-0400 Systolic blood pressure 147 mm[Hg] MD Susan Ayala Work Phone: [facility] 12-28-2023 13:13-0400 Body height 162.6 cm Gilson Portillo DPM Work Phone: [facility] 12-28-2023 13:13-0400 Body mass index (BMI) [Ratio] 28.15 kg/m2 Gilson Portillo DPM Work Phone: [facility] 12-28-2023 13:13-0400 Body weight 74.39 kg Gilson Brown DPM Work Phone: [facility] 12-28-2023 13:13-0400 Diastolic blood pressure 80 mm[Hg] Gilson Portillo DPM Work Phone: [facility] 12-28-2023 13:13-0400 Heart rate 89 /min Gilson Portillo DPM Work Phone: [facility] 12-28-2023 13:13-0400 Systolic blood pressure 130 mm[Hg] Gilson Portillo DPM Work Phone: [facility] 12-21-2023 09:56-0400 Body height 162.56 cm MD Susan Ayala Work Phone: [facility] 12-21-2023 09:56-0400 Body mass index (BMI) [Ratio] 27.1 kg/m2 MD Susan Ayala Work Phone: [facility] 12-21-2023 09:56-0400 Body temperature 97.9 [degF] MD Susan Ayala Work Phone: [facility] 12-21-2023 09:56-0400 Body weight 71.66 kg MD Susan Ayala Work Phone: [facility] 12-21-2023 09:56-0400 Diastolic blood pressure 81 mm[Hg] MD Susan Ayala Work Phone: [facility] 12-21-2023 09:56-0400 Heart rate 95 /min MD Susan Ayala Work Phone: [facility] 12-21-2023 09:56-0400 Respiratory rate 20 /min MD Susan Ayala Work Phone: [facility] 12-21-2023 09:56-0400 SaO2% (BldA) [Mass fraction] 100 % MD Susan Ayala Work Phone: [facility] 12-21-2023 09:56-0400 Systolic blood pressure 136 mm[Hg] MD Susan Ayala Work Phone: [facility] 12-05-2023 09:05-0400 Diastolic blood pressure 82 mm[Hg] MD Susan Ayala Work Phone: [facility] 12-05-2023 09:05-0400 Heart rate 66 /min MD Susan Ayala Work Phone: [facility] 12-05-2023 09:05-0400 Respiratory rate 20 /min MD Susan Ayala Work Phone: [facility] 12-05-2023 09:05-0400 SaO2% (BldA) [Mass fraction] 100 % MD Susan Ayala Work Phone: [facility] 12-05-2023 09:05-0400 Systolic blood pressure 137 mm[Hg] MD Susan Ayala Work Phone: [facility] 11-20-2023 08:09-0400 Body height 162.56 cm MD Susan Ayala Work Phone: [facility] 11-20-2023 08:09-0400 Body weight 74.84 kg MD Susan Ayala Work Phone: [facility] 10-24-2023 12:53-0400 Body height 162.56 cm MD Susan Ayala Work Phone: [facility] 10-24-2023 12:53-0400 Body mass index (BMI) [Ratio] 27.8 kg/m2 MD Susan Ayala Work Phone: [facility] 10-24-2023 12:53-0400 Body temperature 97.9 [degF] MD Susan Ayala Work Phone: [facility] 10-24-2023 12:53-0400 Body weight 73.48 kg MD Susan Ayala Work Phone: [facility] 10-24-2023 12:53-0400 Diastolic blood pressure 83 mm[Hg] MD Susan Ayala Work Phone: [facility] 10-24-2023 12:53-0400 Heart rate 85 /min MD Susan Ayala Work Phone: [facility] 10-24-2023 12:53-0400 Respiratory rate 16 /min MD Susan Ayala Work Phone: [facility] 10-24-2023 12:53-0400 SaO2% (BldA) [Mass fraction] 98 % MD Susan Ayala Work Phone: [facility] 10-24-2023 12:53-0400 Systolic blood pressure 137 mm[Hg] MD Susan Ayala Work Phone: [facility] 10-11-2023 13:21-0400 Body height 162.56 cm MD Susan Ayala Work Phone: [facility] 10-11-2023 13:21-0400 Body mass index (BMI) [Ratio] 28.3 kg/m2 MD Susan Ayala Work Phone: [facility] 10-11-2023 13:21-0400 Body temperature 98 [degF] MD Susan Ayala Work Phone: [facility] 10-11-2023 13:21-0400 Body weight 74.84 kg MD Susan Ayala Work Phone: [facility] 10-11-2023 13:21-0400 Diastolic blood pressure 79 mm[Hg] MD Susan Ayala Work Phone: [facility] 10-11-2023 13:21-0400 Heart rate 102 /min MD Susan Ayala Work Phone: [facility] 10-11-2023 13:21-0400 Respiratory rate 20 /min MD Susan Ayala Work Phone: [facility] 10-11-2023 13:21-0400 SaO2% (BldA) [Mass fraction] 98 % MD Susan Ayala Work Phone: [facility] 10-11-2023 13:21-0400 Systolic blood pressure 133 mm[Hg] MD Susan Ayala Work Phone: [facility] 10-03-2023 13:01-0400 Body height 162.56 cm MD Susan Ayala Work Phone: [facility] 10-03-2023 13:01-0400 Body mass index (BMI) [Ratio] 28.5 kg/m2 MD Susan Ayala Work Phone: [facility] 10-03-2023 13:01-0400 Body weight 75.29 kg MD Susan Ayala Work Phone: [facility] 10-03-2023 13:01-0400 Diastolic blood pressure 73 mm[Hg] MD Susan Ayala Work Phone: [facility] 10-03-2023 13:01-0400 Heart rate 83 /min MD Susan Ayala Work Phone: [facility] 10-03-2023 13:01-0400 Systolic blood pressure 125 mm[Hg] MD Susan Ayala Work Phone: [facility] 09-21-2023 10:59-0400 Body height 162.56 cm MD Susan Ayala Work Phone: [facility] 09-21-2023 10:59-0400 Body mass index (BMI) [Ratio] 28.1 kg/m2 MD Susan Ayala Work Phone: [facility] 09-21-2023 10:59-0400 Body temperature 98 [degF] MD Susan Ayala Work Phone: [facility] 09-21-2023 10:59-0400 Body weight 74.38 kg MD Susan Ayala Work Phone: [facility] 09-21-2023 10:59-0400 Diastolic blood pressure 80 mm[Hg] MD Susan Ayala Work Phone: [facility] 09-21-2023 10:59-0400 Heart rate 77 /min MD Susan Ayala Work Phone: [facility] 09-21-2023 10:59-0400 Respiratory rate 18 /min MD Susan Ayala Work Phone: [facility] 09-21-2023 10:59-0400 SaO2% (BldA) [Mass fraction] 100 % MD Susan Ayala Work Phone: [facility] 09-21-2023 10:59-0400 Systolic blood pressure 131 mm[Hg] MD Susan Ayala Work Phone: [facility] 08-29-2023 13:44-0400 Diastolic blood pressure 82 mm[Hg] MD Susan Ayala Work Phone: [facility] 08-29-2023 13:44-0400 Heart rate 67 /min MD Susan Ayala Work Phone: [facility] 08-29-2023 13:44-0400 Respiratory rate 16 /min MD Susan Ayala Work Phone: [facility] 08-29-2023 13:44-0400 SaO2% (BldA) [Mass fraction] 98 % MD Susan Ayala Work Phone: [facility] 08-29-2023 13:44-0400 Systolic blood pressure 146 mm[Hg] MD Susan Ayala Work Phone: [facility] 08-29-2023 12:59-0400 Body temperature 97 [degF] MD Susan Ayala Work Phone: [facility] 08-29-2023 12:29-0400 Inhaled oxygen flow rate 8 L/min MD Susan Ayala Work Phone: [facility] 08-29-2023 11:31-0400 Body weight 74.84 kg MD Susan Ayala Work Phone: [facility] 08-29-2023 11:15-0400 Body height 162.56 cm MD Susan Ayala Work Phone: [facility] 08-11-2023 10:40-0400 Body height 162.56 cm MD Susan Ayala Work Phone: [facility] 08-11-2023 10:40-0400 Body mass index (BMI) [Ratio] 28.1 kg/m2 MD Susan Ayala Work Phone: [facility] 08-11-2023 10:40-0400 Body temperature 97.5 [degF] MD Susan Ayala Work Phone: [facility] 08-11-2023 10:40-0400 Body weight 74.44 kg MD Susan Ayala Work Phone: [facility] 08-11-2023 10:40-0400 Diastolic blood pressure 80 mm[Hg] MD Susan Ayala Work Phone: [facility] 08-11-2023 10:40-0400 Heart rate 85 /min MD Susan Ayala Work Phone: [facility] 08-11-2023 10:40-0400 Systolic blood pressure 121 mm[Hg] MD Susan Ayala Work Phone: [facility] 08-01-2023 13:50-0400 Diastolic blood pressure 78 mm[Hg] MD Susan Ayala Work Phone: [facility] 08-01-2023 13:50-0400 Heart rate 72 /min MD Susan Ayala Work Phone: [facility] 08-01-2023 13:50-0400 Respiratory rate 16 /min MD Susan Ayala Work Phone: [facility] 08-01-2023 13:50-0400 SaO2% (BldA) [Mass fraction] 100 % MD Susan Ayala Work Phone: [facility] 08-01-2023 13:50-0400 Systolic blood pressure 138 mm[Hg] MD Susan Ayala Work Phone: [facility] 08-01-2023 12:58-0400 Body temperature 98.4 [degF] MD Susan Ayala Work Phone: [facility] 08-01-2023 12:33-0400 Inhaled oxygen flow rate 8 L/min MD Susan Ayala Work Phone: [facility] 08-01-2023 11:26-0400 Body height 162.56 cm MD Susan Ayala Work Phone: [facility] 08-01-2023 11:26-0400 Body mass index (BMI) [Ratio] 28.3 kg/m2 MD Susan Ayala Work Phone: [facility] 08-01-2023 11:26-0400 Body weight 74.84 kg MD Susan Ayala Work Phone: [facility] 07-11-2023 14:28-0500 Body height 162.56 cm MD Susan Ayala Work Phone: [facility] 07-11-2023 14:28-0500 Body mass index (BMI) [Ratio] 28.5 kg/m2 MD Susan Ayala Work Phone: [facility] 07-11-2023 14:28-0500 Body weight 75.46 kg MD Susan Ayala Work Phone: [facility] 07-11-2023 14:28-0500 Diastolic blood pressure 75 mm[Hg] MD Susan Ayala Work Phone: [facility] 07-11-2023 14:28-0500 Heart rate 93 /min MD Susan Ayala Work Phone: [facility] 07-11-2023 14:28-0500 Systolic blood pressure 138 mm[Hg] MD Susan Ayala Work Phone: [facility] 05-16-2023 10:00-0500 Body temperature 98.2 [degF] MD Susan Ayala Work Phone: [facility] 05-16-2023 10:00-0500 Diastolic blood pressure 78 mm[Hg] MD Susan Ayala Work Phone: [facility] 05-16-2023 10:00-0500 Heart rate 87 /min MD Susan Ayala Work Phone: [facility] 05-16-2023 10:00-0500 Respiratory rate 18 /min MD Susan Ayala Work Phone: [facility] 05-16-2023 10:00-0500 SaO2% (BldA) [Mass fraction] 99 % MD Susan Ayala Work Phone: [facility] 05-16-2023 10:00-0500 Systolic blood pressure 136 mm[Hg] MD Susan Ayala Work Phone: [facility] 05-02-2023 16:16-0500 Body height 162.56 cm MD Susan Ayala Work Phone: [facility] 05-02-2023 16:16-0500 Body weight 75.7 kg MD Susan Ayala Work Phone: [facility] 03-27-2023 14:00-0500 Body height 162.56 cm Susan Ayala Other [facility] Other 03-27-2023 14:00-0500 Body mass index (BMI) [Ratio] 28.49 kg/m2 Susan Ayala Other [employer] Other 03-27-2023 14:00-0500 Body weight 75.3 kg Susan Ayala Other [employer] Other 03-27-2023 14:00-0500 Diastolic blood pressure 84 mm[Hg] Susan Ayala Other [employer] Other 03-27-2023 14:00-0500 Systolic blood pressure 136 mm[Hg] Susan Ayala Other [employer] Other 02-06-2023 10:30-0400 Body height 162.56 cm Susan Ayala Other [employer] Other 02-06-2023 10:30-0400 Body mass index (BMI) [Ratio] 29.01 kg/m2 Susan Ayala Other [employer] Other 02-06-2023 10:30-0400 Body weight 76.66 kg Susan Ayala Other [employer] Other 02-06-2023 10:30-0400 Diastolic blood pressure 84 mm[Hg] Susan Ayala Other [employer] Other 02-06-2023 10:30-0400 Systolic blood pressure 144 mm[Hg] Susan Ayala Other [employer] Other 12-28-2022 09:30-0400 Body height 162.56 cm Susan Ayala Other [employer] Other 12-28-2022 09:30-0400 Body mass index (BMI) [Ratio] 28.15 kg/m2 Susan Ayala Other [employer] Other 12-28-2022 09:30-0400 Body weight 74.39 kg Susan Ayala Other [employer] Other 12-28-2022 09:30-0400 Diastolic blood pressure 78 mm[Hg] Susan Ayala Other [employer] Other 12-28-2022 09:30-0400 SaO2% (BldA) [Mass fraction] 96 % Susan Ayala Other [employer] Other 12-28-2022 09:30-0400 Systolic blood pressure 128 mm[Hg] Susan Ayala Other [employer] Other 09-13-2022 15:00-0400 Body height 162.56 cm Susan Ayala Other [employer] Other 09-13-2022 15:00-0400 Body mass index (BMI) [Ratio] 28.32 kg/m2 Susan Ayala Other [employer] Other 09-13-2022 15:00-0400 Body weight 74.84 kg Susan Ayala Other [employer] Other 09-13-2022 15:00-0400 Diastolic blood pressure 74 mm[Hg] Susan Ayala Other [employer] Other 09-13-2022 15:00-0400 SaO2% (BldA) [Mass fraction] 98 % Susan Ayala Other [employer] Other 09-13-2022 15:00-0400 Systolic blood pressure 142 mm[Hg] Susan Ayala Other [employer] Other 07-06-2022 10:00-0500 Body height 162.56 cm Susan Ayala Other [employer] Other 07-06-2022 10:00-0500 Body mass index (BMI) [Ratio] 28.66 kg/m2 Susan Ayala Other [employer] Other 07-06-2022 10:00-0500 Body weight 75.75 kg Susan Ayala Other [employer] Other 07-06-2022 10:00-0500 Diastolic blood pressure 62 mm[Hg] Susan Ayala Other [employer] Other 07-06-2022 10:00-0500 SaO2% (BldA) [Mass fraction] 98 % Susan Ayala Other [employer] Other 07-06-2022 10:00-0500 Systolic blood pressure 110 mm[Hg] Susan Ayala Other [employer] Other 06-14-2022 11:00-0500 Body height 162.56 cm Susan Ayala Other [employer] Other 06-14-2022 11:00-0500 Body mass index (BMI) [Ratio] 29.01 kg/m2 Susan Ayala Other [employer] Other 06-14-2022 11:00-0500 Body weight 76.66 kg Susan Ayala Other [employer] Other 06-14-2022 11:00-0500 Diastolic blood pressure 76 mm[Hg] Susan Ayala Other [employer] Other 06-14-2022 11:00-0500 SaO2% (BldA) [Mass fraction] 98 % Susan Ayala Other [employer] Other 06-14-2022 11:00-0500 Systolic blood pressure 138 mm[Hg] Susan Ayala Other [facility] Other Encounters Encounter Date Encounter Type Care Provider Facility Start: 06-11-2024 End: 06-11-2024 ambulatory Susan Ayala MD Work Phone: [facility] Work Phone: Start: 06-11-2024 End: 06-11-2024 Patient encounter procedure Susan Ayala MD Work Phone: [facility] Work Phone: Start: 05-24-2024 Patient encounter status Susan Ayala MD Work Phone: [facility] Start: 05-24-2024 End: 05-24-2024 ambulatory Susan Ayala MD Work Phone: [facility] Work Phone: Start: 05-24-2024 End: 05-24-2024 Encounter for general adult medical examination without abnormal findings Susan Ayala MD Work Phone: [facility] Start: 05-24-2024 End: 05-24-2024 Patient encounter procedure Susan Ayala MD Work Phone: [facility] Work Phone: Start: 05-23-2024 Registered Recurring [facility] Work Phone: Start: 05-23-2024 End: 05-23-2024 ambulatory Susan Ayala MD Work Phone: [facility] Work Phone: Start: 05-23-2024 End: 05-23-2024 Patient encounter procedure Susan Ayala MD Work Phone: [facility] Work Phone: Start: 05-17-2024 End: 05-17-2024 ambulatory Susan Ayala MD Work Phone: [facility] Work Phone: Start: 05-17-2024 End: 05-17-2024 Patient encounter procedure Susan Ayala MD Work Phone: [facility] Work Phone: Start: 05-15-2024 Non-patient / Non-visit Susan Ayala MD Work Phone: [facility] Work Phone: Start: 05-14-2024 End: 05-15-2024 Telephone encounter Mabel Oscar MD Work Phone: [facility] Start: 05-14-2024 [address] [place] Facility: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); ETD (Eustachian tube dysfunction), right Start: 04-10-2024 End: 04-10-2024 Clinical Support Angelica Hawkins [facility] Work Phone: [facility] Comment on above: 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); Tinnitus, right Start: 03-25-2024 End: 03-25-2024 ambulatory Susan Ayala MD Work Phone: [facility] Work Phone: Start: 03-25-2024 End: 03-25-2024 Patient encounter procedure Susan Ayala MD Work Phone: [facility] Work Phone: Start: 03-22-2024 Registered Recurring Susan bailon MD [facility]: [facility] Work Phone: Start: 03-22-2024 End: 03-22-2024 ambulatory Susan Ayala MD Work Phone: [facility] Work Phone: Start: 03-22-2024 End: 03-22-2024 Patient encounter procedure Susan Ayala MD Work Phone: [facility] Work Phone: Start: 03-16-2024 End: 03-16-2024 ambulatory Susan Ayala MD Work Phone: [facility] Work Phone: Start: 03-16-2024 End: 03-16-2024 Patient encounter procedure Susan Ayala MD Work Phone: [facility] Work Phone: Start: 03-07-2024 End: 03-07-2024 Bamboo flowsheet Gilson Portillo DPM Work Phone: [facility] Start: 03-07-2024 End: 03-07-2024 Bamboo flowsheet Gilson Portillo DPM Work Phone: [facility] Start: 03-07-2024 End: 03-07-2024 Patient encounter procedure Gilson Portillo DPM Work Phone: [facility] Comment on above: 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 (Primary Dx) Start: 03-07-2024 End: 03-07-2024 ambulatory GILSONMarek PORTILLO Not Available Start: 02-27-2024 Registered Recurring Susan bailon MD Work Phone: [facility] Start: 02-20-2024 End: 02-20-2024 ambulatory MD Susan Ayala Work Phone: [facility] Work Phone: Start: 02-20-2024 End: 02-20-2024 Patient encounter procedure MD Susan Ayala Work Phone: [facility] Work Phone: Start: 02-15-2024 Registered Recurring MD Susan Ayala Work Phone: [facility] Work Phone: Start: 02-15-2024 End: 02-15-2024 ambulatory MD Susan Ayala Work Phone: [facility] Work Phone: Start: 02-15-2024 End: 02-15-2024 Patient encounter procedure MD Susan Ayala Work Phone: [facility] Work Phone: Start: 02-08-2024 Non-patient / Non-visit MD Susan Ayala Work Phone: [facility] Work Phone: Start: 01-23-2024 Registered Recurring MD Susan Ayala Work Phone: [facility] Start: 01-03-2024 End: 01-03-2024 ambulatory MD Susan Ayala Work Phone: [facility] Work Phone: Start: 01-03-2024 End: 01-03-2024 Patient encounter procedure MD Susan Ayala Work Phone: [facility] Work Phone: Start: 01-03-2024 Registered Recurring MD Susan Ayala Work Phone: [facility] Work Phone: Start: 12-28-2023 End: 12-28-2023 Bamboo flowsheet Gilson Portillo DPM Work Phone: [facility] Start: 12-28-2023 End: 12-28-2023 Bamboo flowsheet Gilson Portillo DPM Work Phone: [facility] Start: 12-28-2023 End: 12-28-2023 Patient encounter procedure Gilson Portillo DPM Work Phone: [facility] Comment on above: Onychomycosis (Prima ry Dx); Toe pain, bilateral Start: 12-28-2023 End: 12-28-2023 ambulatory GILSON PORTILLO Not Available Start: 12-22-2023 Non-patient / Non-visit MD Susan Ayala Work Phone: [facility] Work Phone: Start: 12-21-2023 End: 12-21-2023 ambulatory MD Susan Ayala Work Phone: [facility] Work Phone: Start: 12-21-2023 End: 12-21-2023 Patient encounter procedure MD Susan Ayala Work Phone: [facility] Work Phone: Start: 12-21-2023 Registered Recurring MD Susan Ayala Work Phone: [facility] Work Phone: Start: 12-11-2023 Registered Recurring MD Susan Ayala Work Phone: [facility] Start: 12-06-2023 Non-patient / Non-visit MD Susan Ayala Work Phone: [facility] Work Phone: Start: 12-05-2023 Non-patient / Non-visit MD Susan Ayala Work Phone: [facility] Work Phone: Start: 12-05-2023 End: 12-05-2023 Admission to same day surgery center MD Susan Ayala Work Phone: [facility] Work Phone: Start: 12-05-2023 End: 12-05-2023 ambulatory MD Susan Ayala Work Phone: [facility] Work Phone: Start: 12-04-2023 Registered Recurring MD Susan Ayala Work Phone: [facility] Work Phone: Start: 11-29-2023 Non-patient / Non-visit MD Susan Ayala Work Phone: [facility] Work Phone: Start: 11-27-2023 Non-patient / Non-visit MD Susan Ayala Work Phone: [facility] Work Phone: Start: 11-22-2023 Non-patient / Non-visit MD Susan Ayala Work Phone: [facility] Work Phone: Start: 11-20-2023 Non-patient / Non-visit MD Susan Ayala Work Phone: [facility] Work Phone: Start: 11-15-2023 Non-patient / Non-visit MD Susan Ayala Work Phone: [facility] Work Phone: Start: 11-13-2023 Non-patient / Non-visit MD Susan Ayala Work Phone: [facility] Work Phone: Start: 11-08-2023 Non-patient / Non-visit MD Susan Ayala Work Phone: [facility] Work Phone: Start: 11-02-2023 Non-patient / Non-visit MD Susan Ayala Work Phone: [facility] Work Phone: Start: 10-31-2023 Registered Recurring MD Susan Ayala Work Phone: [facility] Start: 10-25-2023 End: 10-25-2023 ambulatory GERALDO GARCÍA Not Available Start: 10-24-2023 End: 10-24-2023 Patient encounter procedure MD Susan Ayala Work Phone: [facility] Work Phone: Start: 10-19-2023 End: 10-19-2023 ambulatory GILSON PORTILLO Not Available Start: 10-11-2023 End: 10-11-2023 ambulatory MD Susan Ayala Work Phone: [facility] Work Phone: Start: 10-11-2023 End: 10-11-2023 Patient encounter procedure MD Susan Ayala Work Phone: [facility] Work Phone: Start: 10-11-2023 Registered Recurring MD Susan Ayala Work Phone: [facility] Work Phone: Start: 10-03-2023 End: 10-03-2023 ambulatory MD Susan Ayala Work Phone: [facility] Work Phone: Start: 10-03-2023 End: 10-03-2023 Patient encounter procedure MD Susan Ayala Work Phone: [facility] Work Phone: Start: 09-26-2023 Non-patient / Non-visit MD Susan Ayala Work Phone: [facility] Work Phone: Start: 09-21-2023 End: 09-21-2023 Patient encounter procedure MD Susan Ayala Work Phone: [facility] Work Phone: Start: 09-21-2023 Registered Recurring MD Susan Ayala [facility] Work Phone: Start: 09-20-2023 End: 09-20-2023 ambulatory GERALDO H ITZKOWITZ Not Available Start: 09-19-2023 Registered Recurring MD Susan Ayala Work Phone: [facility] Start: 09-06-2023 End: 09-06-2023 ambulatory GERALDO H ITZKOWITZ Not Available Start: 08-29-2023 End: 08-29-2023 Admission to same day surgery center MD Susan Ayala [facility] [place] Start: 08-29-2023 End: 08-29-2023 ambulatory MD Susan Ayala Work Phone: [facility] Work Phone: Start: 08-16-2023 End: 08-16-2023 ambulatory GERALDO H ITZKOWITZ Not Available Start: 08-11-2023 End: 08-11-2023 ambulatory MD Susan Ayala Work Phone: [facility] Work Phone: Start: 08-11-2023 End: 08-11-2023 Patient encounter procedure MD Susan Ayaal Work Phone: [facility] Work Phone: Start: 08-10-2023 End: 08-10-2023 ambulatory GILSON Post BANDAR Not Available Start: 08-09-2023 End: 08-09-2023 ambulatory GERALDO GARCÍA Not Available Start: 08-01-2023 End: 08-01-2023 Admission to same day surgery center MD Susan Ayala Work Phone: [facility] [place] Start: 08-01-2023 End: 08-01-2023 ambulatory MD Susan Aylaa Work Phone: [facility] Work Phone: Start: 07-24-2023 Non-patient / Non-visit MD Susan Ayala Work Phone: [facility] Work Phone: Start: 07-24-2023 End: 07-24-2023 ambulatory CHEL JOSEPH Not Available Start: 07-19-2023 End: 07-19-2023 Patient encounter procedure MD Susan Ayala Work Phone: [facility] Work Phone: Start: 07-19-2023 End: 07-19-2023 ambulatory MD Susan Ayala Work Phone: [facility] Work Phone: Start: 07-12-2023 End: 07-12-2023 Admission to same day surgery center MD Susan Ayala Work Phone: [facility] Start: 07-12-2023 End: 07-12-2023 ambulatory GERALDO GARCÍA Not Available Start: 07-11-2023 End: 07-11-2023 Patient encounter procedure MD Susan Ayala Work Phone: [facility] Work Phone: Start: 07-04-2023 Registered Recurring MD Susan Ayala Work Phone: [facility] Start: 06-29-2023 End: 07-02-2023 [facility] Start: 06-01-2023 End: 06-01-2023 ambulatory GILSON PORTILLO Not Available Start: 05-30-2023 Registered Recurring MD Susan Ayala Work Phone: [facility] Start: 05-16-2023 End: 05-16-2023 Admission to same day surgery center MD Susan Ayala Work Phone: [facility] Work Phone: Start: 05-16-2023 End: 05-16-2023 ambulatory MD Susan Ayala Work Phone: [facility] Work Phone: Start: 05-02-2023 End: 05-02-2023 Patient encounter procedure MD Susan Ayala Work Phone: [facility] Work Phone: Start: 04-28-2023 End: 04-28-2023 ambulatory GERALDO H ITZKOWITZ Not Available Start: 04-10-2023 End: 04-10-2023 ambulatory Susan Ayala Other [employer] Other Start: 04-10-2023 Telephone encounter Susan Ayala [facility] Start: 04-05-2023 End: 04-05-2023 ambulatory GERALDO H ITZKOWITZ Not Available Start: 03-27-2023 End: 03-27-2023 ambulatory Susan Ayala Other [employer] Other Start: 03-27-2023 Patient encounter procedure Susan Ayala [facility] Start: 03-27-2023 Telephone encounter Susan Ayala [facility] Start: 03-21-2023 End: 03-21-2023 ambulatory Susan Ayala Other [employer] Other Start: 03-21-2023 Telephone encounter Susan Ayala [facility] Start: 03-10-2023 (Televisit) Televisit Susan Mena [facility] Start: 03-10-2023 End: 03-10-2023 ambulatory Susan Ayala Other [employer] Other Start: 03-06-2023 End: 03-06-2023 ambulatory Susan Ayala Other [employer] Other Start: 03-06-2023 Telephone encounter Susan Ayala [facility] Start: 02-06-2023 End: 02-06-2023 ambulatory Susan Ayala Other [employer] Other Start: 02-06-2023 Office outpatient visit 15 minutes Susan Ayala [facility] Start: 02-06-2023 Telephone encounter Susan Ayala [facility] Start: 12-28-2022 End: 12-28-2022 ambulatory Susan Ayala Other [employer] Other Start: 12-28-2022 Office outpatient visit 15 minutes Susan Ayala [facility] Start: 09-13-2022 End: 09-13-2022 ambulatory Susan Ayala Other [employer] Other Start: 09-13-2022 Office outpatient visit 15 minutes Susan Ayala [facility] Start: 08-26-2022 End: 08-27-[address] LITTLE STAFFORD . Facility:[facility] Start: 08-01-2022 End: 08-02-[address] LITTLE STAFFORD . Facility:[facility] Start: 07-18-2022 End: 07-18-[address] LITTLE STAFFORD . Facility:[facility] Start: 07-12-2022 End: 07-12-2022 ambulatory Susan Ayala Other [employer] Other Start: 07-12-2022 Telephone encounter Susan Ayala [facility] Start: 07-06-2022 End: 07-06-2022 ambulatory Susan Ayala Other [employer] Other Start: 07-06-2022 Office outpatient visit 15 minutes Susan Ayala [facility] Start: 06-21-2022 End: 06-21-2022 ambulatory Susan Ayala Other [employer] Other Start: 06-21-2022 Telephone encounter Susan Ayala [facility] Start: 06-14-2022 Office outpatient visit 15 minutes Susan Ayala [facility] Start: 06-14-2022 End: 06-14-2022 ambulatory MD Susan Ayala Work Phone: [facility] Work Phone: Start: 06-14-2022 End: 06-14-2022 Departed Referred MD Susan Ayala Work Phone: [facility] [place] Work Phone: Start: 04-25-2022 Adult health examination Susan Ayala Other [employer] Other Start: 04-25-2022 Gynecological examination normal Susan Ayala Other [employer] Other Start: 04-21-2022 End: 04-21-[address] SUSAN AYALA Facility:[facility] Start: 04-14-2022 End: 04-15-2022 ambulatory ANIA BLANCA Facility:[facility] Start: 03-28-2022 End: 03-28-[address] SUSAN AYALA Facility:[facility] Start: 12-27-2021 End: 12-28-2021 ambulatory ANIA BLANCA Facility:[facility] Procedures Date Procedure Procedure Detail Performing Clinician Start: 04-10-2024 AUDITORY FUNCTION TESTS Angelica Hawkins [facility] Work Phone: Start: 03-16-2024 Quick Strep (POC) Radha Ayala MD Work Phone: Start: 12-05-2023 Screening colonoscopy M D Susan Ayala Work Phone: Start: 08-29-2023 Lumpectomy of [...] [Identifier] in Cervix by Cyto stain Gilson Portillo DPM Work Phone: End: 06-28-2019 Viral screening Susan Ayala Other Plan of Treatment Date Care Activity Detail Author Start: 07-19-2027 Screening for malign ant neoplasm of cervix [facility] Start: 07-31-2024 Screening for malign ant neoplasm of breast Mammogram [facility] Start: 05-16-2024 End: 05-16-2024 Patient encounter procedure 05/16/2024 1:50 PM EST Procedure Visit [facility] [address] [id number] Gilson Portillo DPM [address] [address] [facility] Start: 04-10-2024 End: 04-10-2024 Patient encounter procedure 04/10/2024 1:10 PM EST Office Visit [facility] [address] [facility] [address] [place] [id number] Mabel Oscar MD [address] [facility] [address] [place] [address] Arrived [facility] Comment on above: Arrived Start: 03-07-2024 End: 03-07-2024 Patient encounter procedure [facility] Comment on above: 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 (Primary Dx) Start: 01-07-2024 Influenza vaccination Influenza Vacc ine (#1) [facility] Start: 12-28-2023 End: 12-28-2023 Patient encounter procedure 12/28/2023 1:10 PM EDT Procedure Visit [facility] [address] [facility] [address] [place] [id number] Gilson Portillo DPM [address] [address] Onychomycosis (Primary Dx); Toe pain, bilateral [facility] CI PODIATRY Comment on above: Onychomycosis (Prima ry Dx); Toe pain, bilateral Start: 12-05-2023 [facility] Start: 10-11-2023 Patient referral [facility] Work Phone: Start: 10-09-2023 Patient referral [facility] Work Phone: Start: 08-29-2023 [facility] Start: 08-29-2023 End: 08-29-2023 [facility] Start: 08-01-2023 [facility] Start: 08-01-2023 [facility] Start: 05-16-2023 Lumpectomy of left breast OR Breast Bx, Lumpectomy, Mass Excision (Left) [facility] Start: 06-14-2022 [facility] Start: 1965 Screening for malign ant neoplasm of colon [facility] Atopobium vaginae DN A [Presence] in Vaginal fluid by HIMANSHU with probe detection [facility] Bacterial vaginosis associated bacterium 2 DNA [Presence] in Vaginal fluid by HIMANSHU with probe detection [facility] Basophils [#/volume] in Blood by Automated count [facility] Basophils/100 leukocytes in Blood by Automated count [facility] Comprehensive metabo lic 1999 panel - Serum or Plasma [facility] Comprehensive metabo lic 1999 panel - Serum or Plasma [facility] Comprehensive metabo lic 1999 panel - Serum or Plasma [facility] DXA Skeletal system.axial Views for bone density [facility] Eosinophils/100 leukocytes in Blood by Automated count [facility] Erythrocyte distribution width [Ratio] by Automated count [facility] Erythrocytes [#/volu me] in Blood [facility] Hematocrit [Volume Fraction] of Blood [facility] Hemoglobin [Mass/volume] in Blood [facility] Hepatic function panel [facility] Leukocytes [#/volume ] corrected for nucleated erythrocytes in Blood by Automated coun [facility] Leukocytes [#/volume ] in Blood [facility] Lymphocytes [#/volum e] in Blood by Automated count [facility] Lymphocytes/100 leukocytes in Blood by Automated count [facility] MCH [Entitic mass] b y Automated count [facility] MCHC [Mass/volume] b y Automated count [facility] MCV [Entitic volume] by Automated count [facility] Megasphaera sp type 1 DNA [Presence] in Vaginal fluid by HIMANSHU with probe detection [facility] MG Breast - left Diagnostic [facility] Monocytes [#/volume] in Blood by Automated count [facility] Monocytes/100 leukocytes in Blood by Automated count [facility] Neutrophils [#/volum e] in Blood by Automated count [facility] Neutrophils/100 leukocytes in Blood by Automated count [facility] Nucleated erythrocyt es [Presence] in Blood by Automated count [facility] Patient Education Colon polyps H emorrhoids (DC) Diverticulosis (DC) Know your Meds [facility] Work Phone: Patient referral [facility] Work Phone: Platelet mean volume [Entitic volume] in Blood by Automated count [facility] Platelets [#/volume] in Blood [facility] XR Humerus - right Views [facility] Immunizations Immunization Date Immunization Notes Care Provider [facility] 02-21-2024 influenza, injectabl e, madin paulette canine kidney, preservative free Mabel Oscar MD Work Phone: [facility] 02-21-2024 influenza virus vacc ine, unspecified formulation Gilson Portillo DPM Work Phone: [facility] 02-28-2022 COVID-19 mRNA Bivale nt Booster (Pfizer) MD Susan Ayala Work Phone: [facility] 02-28-2022 Influenza, injectabl e, Madin [place] Canine Kidney, preservative free, quadrivalent Mabel Oscar MD Work Phone: [facility] 02-28-2022 influenza virus vacc ine, unspecified formulation Gilson Portillo DPM Work Phone: [facility] 04-20-2021 COVID-19 mRNA, Comir leeroy (Pfizer) MD Susan Ayala Work Phone: [facility] 08-27-2020 COVID-19 mRNA, Comir leeroy (Pfizer) MD Susan Ayala Work Phone: [facility] 08-07-2020 COVID-19 mRNA, Comir leeroy (Pfizer) MD Susan Ayaal Work Phone: [facility] 01-23-2017 influenza, injectabl e, quadrivalent, preservative free Mabel Oscar MD Work Phone: [facility] 02-22-2016 influenza, injectabl e, quadrivalent, preservative free Mabel Oscar MD Work Phone: [facility] 02-05-2015 influenza, seasonal, injectable, preservative free Mabel Oscar MD Work Phone: [facility] 02-26-1997 influenza, seasonal, injectable Mabel Oscar MD Work Phone: [facility] 02-26-1997 pneumococcal polysaccharide vaccine, 23 valent Mabel Oscar MD Work Phone: [facility] Healthcare Payers Date Payer Category Payer Unknown [id number] 2022 Self-pay [id number] 2019 Medicare [employer] MED[employer]ARE ADVANTAGE HUMAN MEDICARE [id number] 2019-Present [address] [place] [id number] 2019 Medicare (Managed Care) [employer] EDICARE ADVANTAGE [id number] 2017 Medicaid [id number]. [id number] 1964 Unknown [id number] 2.16.840.1.726195.3.579.2. 593 1964 Unknown [id number] 2.16.840.1.129884.3.579.2. 593 1964 Unknown [id number] 2.16.840.1.691701.3.579.2. 593 1964 Unknown [id number] 2.16.840.1.853587.3.579.2. 593 1964 Unknown [id number] 2.16.840.1.625182.3.579.2. 593 1964 Unknown [id number] 2.16.840.1.830340.3.579.2. 593 1964 Unknown [id number] 2.16.840.1.153597.3.579.2. 593 1964 Unknown [id number] 2.16.840.1.302135.3.579.2. 177 1964 Unknown [id number] 2.840.1.251711.3.579.2. 1258 1964 Unknown [id number] 2.840.1.771822.3.579.2. 1258 1964 Unknown [id number] 2.16.840.1.184216.3.579.2. 125 1964 Unknown [id number] 2.16840.1.558263.3.579.2. 1258 1964 Unknown [id number] 2.16840.1.782624.3.579.2. 1258 1964 Unknown [id number] 2.16840.1.834887.3.579.2. 125 1964 Unknown [id number] 2.16.840.1.646946.3.579.2. 125 1964 Unknown [id number] 2.16.840.1.144378.3.579.2. 1258 1964 Unknown [id number] 2.16.840.1.140372.3.579.2. 125 1964 Unknown [id number] 2.16.840.1.421000.3.579.2. 125 1964 Unknown [id number] 2.16.840.1.610608.3.579.2. 1259 1964 Unknown [id number] 2.0.1.289097.3.579.2. 1258 1964 Unknown [id number] .0.1.120538.3.579.2. 9 1964 Unknown [id number] ..1.027493.3.579.2. 1259 1960 Medicaid [id number] 1960 Medicare [id number] ..[id number] Medicaid Medicaid [id number] Medicare [id number] Medicare Medicare [id number] Unknown [employer] PFFS [id number] Unknown [id number] ..1.057593.3.579.2. 531 Unknown [id number] ..1.536677.3.579.2. 531 Unknown [id number] ..1.798169.3.579.2. 531 Unknown [id number] ..1.962885.3.579.2. 531 Unknown [id number] ..1.655449.3.579.2. 531 Unknown [id number] ..1.507520.3.579.2. 531 Unknown [id number] ..1.248676.3.579.2. 531 Social History Date Type Detail Facility Tobacco smoking stat [facility] Unknown if ever smoked [facility] Work Phone: Start: 1965 Sex Assigned At Female F [facility] Start: 12-28-2023 End: 04-10-2024 Sex Assigned At [facility] [employer] [facility] Start: 05-02-2023 End: 03-16-2024 Tobacco smoking status NHIS Ex-smoker (finding) [facility] End: 05-08-2016 History of tobacco use Current smoker [facility] End: 05-08-2016 History of tobacco use Cigarette Smoker [facility] Start: 12-28-2023 End: 04-10-2024 Alcoholic beverage intake Ex-drinker (finding) [facility] Start: 12-28-2023 End: 04-10-2024 History of Social function [facility] Start: 1965 Sex assigned at Not on file [facility] Start: 03-16-2024 End: 06-11-2024 Sex Female (finding) [facility] Start: 04-10-2024 Tobacco use and exposure Smokeless tobacco non-user [facility] Medical Equipment Procedure Code Equipment Code Equipment Origin al Text Equipment Identifier Dates Biopsy, breast, with lumpectomy Imaging lesion localization marker, implantable [id number] [facility] Start: 08-01-2023 Goals Date Patient Goal Desired Activity /State Clinical Notes 06-14-2022 to 05-23-2024 Telephone Encounter - Mabel Oscar MD - 05/14/2024 4:18 PM ESTTelephone Encounter - Mabel Oscar MD - 05/14/2024 4:18 PM ESTTelephone Encounter - Nazia Oscar - 05/14/2024 1:24 PM EST Note Date & Type Note Facility 05-23-2024 Progress note [facility] enter 05-14-2024 Telephone encount er Note Send discharge note [facility] Healthcare 05-14-2024 Miscellaneous Notes Formattin g of this note might be different from the original. Send discharge note Called pt/explained about the importance of having the MRI and appt with Dr Oscar, pt said she does not want to have it done or schedule any appts. Advise patient she should still get the MRI because steroids can decrease swelling in a tumor that restores hearing, so having a tumor is not excluded by the hearing retuirning Pt called in to cancel her appts due to her hearing coming back. Pt was scheduled with audio, 's appt, and MRI. documented in this encounter [facility] 05-14-2024 Telephone encount er Note Called pt/explained about the importance of having the MRI and appt with Dr Oscar, pt said she does not want to have it done or schedule any appts. [facility] 05-14-2024 Telephone encount er Note Advise patient she should still get the MRI because steroids can decrease swelling in a tumor that restores hearing, so having a tumor is not excluded by the hearing retuirning [facility] 05-14-2024 Telephone encount er Note Pt called in to cancel her appts due to her hearing coming back. Pt was scheduled with audio, 's appt, and MRI. [facility] 04-10-2024 History of Presen t illness Narrative Subjective Patient ID: Melony Manley is a 59 y.o. female who presents for Otitis Media Pt reports she developed RT HL 03/16. Tx with doxy and a z-pack. Neither helped. No audio. No prior h/o ear problems. Pt reports she had dizziness at onset and has a roaring tinnitus on the RT. Audio obtained today that shows markedly asymmetric RT SNHL Review of Systems HENT: Positive for ear pain, hearing loss and rhinorrhea. Negative for ear discharge and sore throat. Respiratory: Negative for cough. Gastrointestinal: Negative for abdominal pain, diarrhea and vomiting. Musculoskeletal: Negative for neck pain. Skin: Negative for rash. Neurological: Negative for headaches. All other systems reviewed and are negative. Family History Problem Relation Name Age of Onset Stomach cancer Mother Cecile Grady Cancer Mother Cecile Grady Heart disease Father Cancer Maternal Grandmother Cecile MenaBeatriz Flores Diabetes Maternal Grandmother Cecile MenaBeatriz Flores Colon cancer Neg Hx Breast cancer Neg Hx Ovarian cancer Neg Hx Active Ambulatory Problems Diagnosis Date Noted Malignant neoplasm of central portion of left breast in female, estrogen receptor positive ([facility]/HCC) 05/19/2023 Abnormal mammogram 04/08/2024 Allergic rhinitis 04/08/2024 Breast pain, left 04/08/2024 Elevated fasting glucose 04/08/2024 GERD (gastroesophageal reflux disease) 04/08/2024 Hyperlipidemia ([facility]/HCC) 04/08/2024 Invasive ductal carcinoma of left breast (CMS/HCC) 04/08/2024 Osteopenia 04/08/2024 Right acute otitis media 04/08/2024 Right arm pain 04/08/2024 Screening for colon cancer 04/08/2024 Stage 3 chronic kidney disease (HCC) (CMS/HCC) 04/08/2024 Type 2 diabetes mellitus with hyperglycemia (CMS/HCC) 04/08/2024 Resolved Ambulatory Problems Diagnosis Date Noted No Resolved Ambulatory Problems Past Medical History: Diagnosis Date Bipolar 1 disorder (CMS/HCC) Breast cancer (CMS/HCC) 03/2023 Ear problems HL (hearing loss) Hypothyroid (CMS/HCC) Schizophrenia (CMS/[facility]) Past Surgical History: Procedure Laterality Date BREAST LUMPECTOMY Left 08/01/2023 BREAST SURGERY 08/29/2023 Left breast re-excision CATARACT EXTRACTION Bilateral OTHER SURGICAL HISTORY Bilateral ingrown toenail removal OTHER SURGICAL HISTORY Laparoscopic surgery RETINAL DETACHMENT SURGERY TUBAL LIGATION Allergies Allergen Reactions Penicillins Other Other Reaction(s): Swelling of Lip/Tongue/Throat Cephalosporins Other Reaction(s): Unknown Reaction Current Outpatient Medications on File Prior to Visit Medication Sig Dispense Refill alendronate (Fosamax) 70 MG tablet PLEASE SEE ATTACHED FOR DETAILED DIRECTIONS 12 tablet 0 busPIRone (Buspar) 5 MG tablet Take by mouth 2 (two) times a day glipiZIDE XL (Glucotrol XL) 5 MG 24 hr tablet Daily letrozole (Femara) 2.5 MG chemo tablet Daily levothyroxine (Synthroid, Levoxyl) 75 MCG tablet Take 75 mcg by mouth in the morning. Take before meals. lithium ER (Eskalith) 450 MG 12 hr tablet Take 450 mg by mouth at bedtime. OLANZapine (ZyPREXA) 5 MG tablet TAKE 1 TABLET BY MOUTH AT BEDTIME CHANGE IN DOSAGE omeprazole (PriLOSEC) [address] capsule Take 40 mg by mouth in the morning. Take before meals. QUEtiapine (SEROquel) 200 MG tablet Take 200 mg by mouth at bedtime. rosuvastatin (Crestor) 20 MG tablet Take 20 mg by mouth in the morning. traZODone (Desyrel) 50 MG tablet TAKE 1/2 TABLET BY MOUTH AT NIGHT FOR SLEEP No current facility-administered medications on file prior to visit. Objective Last Recorded Vitals Vitals: 04/10/24 1250 BP: 150/78 ENT Physical Exam Constitutional Appearance: patient appears well-developed, well-nourished and well-groomed, Head and Face Appearance: head appears normal and face appears atraumatic; Ear Ear Canals: right ear canal normal; left ear canal normal; Tympanic Membranes: right tympanic membrane normal; left tympanic membrane normal; Ear comments: Right tymp normal. 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 Though it has been 4 weeks since onset, I feel a trial of aggressive steroids is still warranted. Her HL could also be due to an AN and I will check an MRI. Answers submitted by the patient for this visit: Ear Pain Questionnaire (Submitted on 04/04/2024) Chief Complaint: Ear pain Affected ear: right Chronicity: new Onset: 1 to 4 weeks ago Progression since onset: unchanged Frequency: constantly Fever: no fever Fever duration: less than 1 day Pain - numeric: 8/10 documented in this encounter [facility] 04-10-2024 History of Presen t illness Narrative History: Pt was referred to ENT because of right sided hearing loss, onset 03-16-24. Initially pt had pain in the right ear followed by hearing loss. Pt also reports constant roaring right tinnitus. Onset of tinnitus was after the loss of hearing. Pure Tone Audiometry Right Ear: Mild sensorineural hearing loss from 250 Hz - 1K Hz rising to normal hearing from 2K Hz - 3K Hz. Mild to moderate sensorineural hearing loss above 3K Hz Left Ear: Mild sensorineural hearing loss at 8K Hz only Speech Audiometry Right SRT = 30 dB and word discrimination score at 65 dBHL (masked) = 100% Left SRT = 20 dB and word discrimination score at 50 dBHL = 100% documented in this encounter [facility] 03-16-2024 Evaluation note Diagnosis Onset Date Resolution Right acute otitis media acute March 16 9:09am Generalized body aches noneactive No vember 2023 9:09am Sore throat noneactive March 16, 2024 9:09am Breast pain, left acute Novembe r 2023 10:25am Invasive ductal carcinoma of left breast acute March 22, 2 024 10:25am Osteopenia acute March 22, 2024 10:25am Right acute otitis media acute March 25, 2 024 2:36pm Sinusitis, acute maxillary acute May 17 11:14am Breast pain, left acute May 23, 2024 11:41am Invasive ductal carcinoma of left breast acute May 23 11:41am Osteopenia acute May 23, 2024 11:41am [facility] Work Phone: 1(890) 699-720811-09-2024 Evaluation note* Diagnosis Onset Date Resolution Status Admit Date Right acute otitis media acute March 16, 2024 9:09am Generalized body aches noneactive No vember 2023 9:09am Sore throat noneactive March 16, 2024 9:09am Breast pain, left acute Novembe r 2023 10:25am Invasive ductal carcinoma of left breast acute March 22 10:25am Osteopenia acute March 22, 2024 10:25am Right acute otitis media acute March 25, 2024 2:36pm Sinusitis, acute maxillary acute May 17, 2024 11:14am Breast pain, left acute May 23, 2024 11:41am Invasive ductal carcinoma of left breast acute May 23 11:41am Osteopenia acute May 23, 2024 11:41am Type 2 diabetes mellitus wit h hyperglycemia acute May 24 1:23pm Wellness examination acute Ralf2024 1:23pm [facility] Work Phone: 1(538) 357-670411-09-2024 Evaluation note* Diagnosis Onset Date Resolution Status Admit Date Right acute otitis media acute March 16, 2024 9:09am Generalized body aches noneactive No vember 2023 9:09am Sore throat noneactive March 16, 2024 9:09am Breast pain, left acute Novembe r 2023 10:25am Invasive ductal carcinoma of left breast acute March 22, 024 10:25am Osteopenia acute March 22, 2024 10:25am Right acute otitis media acute March 25, 2024 2:36pm Sinusitis, acute maxillary acute May 17, 2024 11:14am Breast pain, left acute May 23, 2024 11:41am Invasive ductal carcinoma of left breast acute May 23 11:41am Osteopenia acute May 23, 2024 11:41am Invasive ductal carcinoma of left breast acute May 24 1:23pm Type 2 diabetes mellitus wit h hyperglycemia acute May 24 1:23pm Wellness examination acute Ralf burnham 2024 1:23pm Bacterial conjunctivitis of right eye acute June 11 8:41am [facility] Work Phone: 1(454) 560-962310-31-2024 History of Present illness Narrative* Gilson Portillo, IDALMIS - 03/07/2024 1:30 PM EDT Patient: Melony Manley : 1965 PCP: Susan [...] Date Bipolar 1 disorder (CMS/HCC) Breast cancer ([facility]/HCC) 03/2023 Left Breast IDC ER/AR+ Her 2 pend Hyperlipidemia ([facility]/HCC) Hypothyroid ([facility]/HCC) Schizophrenia ([facility]) Medications: Current Outpatient Medications: alendronate (Fosamax) 70 [...] condition and treatment of condition. Continue with [id number] creams to feet p.r.n. Gilson Portillo DPM documented in [facility] encounterP[facility] [id number] Evaluation note* Diagnosis Onset Date Resolution Status Admit Date Right arm pain acute February 192023 10:22am [...] 10:25am Osteopenia acute March 22, 2024 10:25am Right acute otitis media acute March 25, 2024 2:36pm [facility] Work Phone: 1(927) 347-543608-28-2024 Evaluation note* Diagnosis Onset Date Resolution Status [...] Sore throat noneactive March 16, 2024 9:09am [facility] Work Phone: 1(925) 752-431408-28-2024 Evaluation note* Diagnosis Onset Date Resolution Status [...] 10:25am Osteopenia acute March 22, 2024 10:25am [facility] Work Phone: 1([phone]) 759-502508-28-2024 Evaluation note* Diagnosis Onset Date Resolution Status [...] 10:25am Osteopenia acute March 22, 2024 10:25am [facility] Work Phone: 1(625) 885-236208-22-2024 History of Present illness Narrative* Gilson Portillo, DPM - 12/28/2023 1:10 PM EDT Patient: Melony Manley : 1965 PCP: Susan Ayala MD SUBJECTIVE This is a 58 y.o. female that presents today with a [...] Breast cancer (CMS/HCC) 03/2023 Left Breast IDC ER/AR+ Her 2 pend Hyperlipidemia (CMS/HCC) Hypothyroid (CMS/HCC) [...] Current packs/day: 0.00 Types: Cigarettes Quit date: 2017 Years since quittin.6 Smokeless tobacco: Not on file Substance and Sexual Activity Alcohol use: Not Currently Drug use: Never Sexual activity: Defer Other Topics Concern Not on file Social History Narrative Not on file Social Determinants of Health Financial Resource Strain: Not on [...] to nails 1 through 10 ASSESSMENT 1. Onychomycosis 2. Toe pain, bilateral PLAN Discussed proper foot care with patient today. Debride nails in length and thickness digits 1 through 10 Patient education on condition and treatment of condition. Continue with lvhk-kyn-pirxoxd creams to feet p.r.n. Gilson Portillo DPM documented in this encounterP[facility] [id number] Chief complaint+Reason for visit Narrative* Chief Complaint referral to gastro Follow Up [...] Invasive ductal carcinoma of left breast Osteopenia [facility] Work Phone: 1(133) 651-967407-30-[address] [facility]* Encounter Date Diagnosis Assessment Notes Treatment Notes Treatment Clinical Notes Mar, Invasive ductal carcinoma of left breast (ICD-10 - C50.912) Reviewed results. Grade 1. D/w daughter on speaker - phone. Appt made w Dr. García on 04/05 at 2pm. Path report and mamm reports sent to their office. [employer] Other 11-14-2023 Evaluation note* Encounter Date Diagnosis Assessment Notes Treatment Notes Treatment Clinical Notes Mar, Elevated triglycerides with high cholesterol (ICD-10 - E78.2) [employer] Other 11-03-2023 Evaluation note* Encounter Date Diagnosis [...] verbalized understanding and agreement with treatment plan. [employer] Other 10-02-2023 Evaluation note* Encounter Date Diagnosis Assessment Notes Treatment Notes Treatment Clinical Notes Feb, Abnormal mammogram of left breast (ICD-10 - R92.8) [employer] Other 10-02-2023 Evaluation note* Encounter Date Diagnosis Assessment Notes Treatment Notes Treatment Clinical Notes Feb, Elevated triglycerides with high cholesterol (ICD-10 - E78.2) Called pharmacy. They do not carry the med she is interested in the [place]. Changed rx and sent to [facility]. [employer] Other 08-23-2023 Evaluation note* Encounter Date Diagnosis Assessment Notes Treatment Notes Treatment Clinical Notes Dec, Elevated fasting glucose (ICD-10 - R73.01) Pt states Dr. Blanca is helping her wean the zyprexa. Will recheck labs listed below and return for OV in Apr. Dec, Hypothyroidism (ICD-10 - E03.9) Labs reviewed and normal. Continue present medication [employer] Other 05-09-2023 Evaluation note* Encounter Date Diagnosis Assessment Notes Treatment Notes Treatment Clinical Notes September, Skin candidiasis (ICD-10 - B37.2) Very mild erythema and discoloration. Recommend OTC Gold Valadez Powder. Call if not improving. [employer] Other 03-01-2023 Evaluation note* Encounter Date Diagnosis [...] w him from our last office visit. [employer] Other 02-07-2023 Evaluation note* Encounter Date Diagnosis Assessment Notes Treatment Notes Treatment Clinical Notes Jun, Acute vaginitis (ICD-10 - N76.0) New problem - sent culture for yeast/BV/trich. will call in 1-2 days when results are back. [employer] Other Chief complaint+Reason for visit Narrative* Chief [...] Osteopenia Invasive ductal carcinoma of left breast [facility] Work Phone: Evaluation noteNo assessment information available [facility] Work Phone: evaluation noteNo InformationNort [employer] Other Evaluation note* Diagnosis Onset Date Resolution Status Hematoma of breast following procedure acute [facility] Work Phone: evaluation note* Diagnosis Onset Date Resolution Status Hematoma of breast following procedure acute Allergic rhinitis acute GERD (gastroesophageal reflux disease) acute Hyperlipidemia acute [facility] Work Phone: Evaluation note* Diagnosis Onset Date Resolution Status Hematoma of breast following procedure acute Allergic rhinitis acute GERD (gastroesophageal reflux disease) acute Hyperlipidemia acute Invasive ductal carcinoma of left breast acute Osteopenia acute [facility] Work Phone: evaluation note* Diagnosis Onset Date Resolution Status Allergic rhinitis acute GERD (gastroesophageal reflux disease) acute Hyperlipidemia acute Invasive ductal carcinoma of left breast acute Osteopenia acute Screening for colon cancer a cute Type 2 diabetes mellitus with hyperglycemia acute Invasive ductal carcinoma of left breast acute Osteopenia acute [facility] Work Phone: evaluation note* Diagnosis Onset Date Resolution Status Invasive ductal carcinoma of left breast acute Osteopenia acute Screening for colon cancer a cute Type 2 diabetes mellitus with hyperglycemia acute Invasive ductal carcinoma of left breast acute Osteopenia acute Invasive ductal carcinoma of left breast acute [facility] Work Phone: evaluation note* Diagnosis Onset Date Resolution Status Screening for colon cancer a cute Type 2 diabetes mellitus with hyperglycemia acute Invasive ductal carcinoma of left breast acute Osteopenia acute Invasive ductal carcinoma of left breast acute Invasive ductal carcinoma of left breast acute Osteopenia acute [facility] Work Phone: Evaluation note* Diagnosis Onset Date Resolution Status Invasive ductal carcinoma of left breast acute Osteopenia acute Invasive ductal carcinoma of left breast acute Invasive ductal carcinoma of left breast acute Osteopenia acute Invasive ductal carcinoma of left breast acute [facility] Work Phone: evaluation note* Diagnosis Onset Date Resolution Status Invasive ductal carcinoma of left breast acute Osteopenia acute Invasive ductal carcinoma of left breast acute Invasive ductal carcinoma of left breast acute Osteopenia acute [facility] Work Phone: Evaluation note* Diagnosis Onset Date Resolution Status Invasive ductal carcinoma of left breast acute Osteopenia acute Invasive ductal carcinoma of left breast acute Invasive ductal carcinoma of left breast acute Osteopenia acute Right arm pain acute [facility] Work Phone: Evaluation note* Diagnosis Pain due to onychomycosis of toenails of both feet- Primary [facility] Diagnosis Sudden idiopathic hearing loss of right ear with restricted hearing of left ear- Primary Tinnitus, right Unspecified tinnitus [facility] Diagnosis Sudden idiopathic hearing loss of right ear with restricted hearing of left ear- Primary ETD (Eustachian tube dysfunction), right [facility]* Diagnosis Onychomycosis- Primary Dermatophytosis of nail Toe pain, bilateral [facility] this [facility] Author Lisa Rubalcava [facility] December 05, 2023 7:53am Note Date/Time December 05, 2023 7:54 am [facility] [address] [place] [address] Gastroenterology H&P Signed Patient: Melony Manley MR#: [id number] : 1965 Acct:[id number] Age/Sex: 58 / F Adm Date: 4 [...] <Electronically signed by Lisa Rubalcava DO> 12/05/23 0754 [facility] Work Phone: History general Narrative - Reported* Type Description Date Medical History Gastroesophageal ref lux disease, esophagitis presence not specified Medical History Bipolar 1 disorder, depressed Medical History Acquired hypothyroidism Medical History Hypercholesterolemia Medical History BMI 28.0-28.9,adult Medical History Hypothyroidism Medical History Chronic kidney disease, stage 3 unspecified Medical History Elevated fasting glucose Medical History Pain of right upper arm Medical History [place] use Medical History Vaginal atrophy Surgical History tubal ligation 2016 Surgical History wisdom teeth Surgical History CATARACT EXTRACTION- LEFT 01/25 17 Surgical History DETACHED RETINE REPAIR (LEFT) 0 06/2021 Surgical History CATARACT EXTRACTION- RIGHT 02/06 017 Hospitalization History SEE SURGICAL HX [employer] Other Hospital Discharge instructions Additional Instructions DISCHARGE [...] directed for pain unless a prescription was provided.[facility] Work Phone: Hospital Discharge instructions Additional [...] directed for pain unless a prescription was provided.[facility] Work Phone: Progress note Author Christine Velazquez [facility] December 21, 2023 10:26am Note Date/Time December 21, 2023 9: 55am [facility] [place] [address] Cancer Center Note Signed Patient: Melony Manley MR#: [id number] : 1965 Acct:[id number] Age/Sex: 58 / F Type: REG AMB Date of Service: 12/21/23 Copies to: Susan Ayala MD~ Assessment & Plan A/P (1) Invasive ductal carcinoma of left breast: (2) Osteopenia: Plan Melony is a 58-year-old nice lady with a stage IIa, pT1b, PN 1, MX left breast centrally located invasive ductal carcinoma with 1+ out of 4 lymph node for invasive cancer. ER/AR reported from the 03/20/2023 core biopsy to be ER 100% positive, PER 60% positive and HER2 manolo 2+ by IHC, negative by FISH, Ki 67 low 5%. Surgical pathology report is not dictating the status of the ER, AR and HER2/manolo. Initial consult for medical oncology on 09/21/2023: We went over her new diagnosis of new left breast invasive ductal carcinoma, stage IIa, and we went over and discussed possible options of treatment based on the ER, AR and HER2/manolo status considering that she has [...] She had DEXA scan in 07/2022 at [facility]. 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 She will need screening mammogram as well every july. For her mild chronic thrombocytopenia, it may be related to [place] and Seroquelbut will check Iron studies, B12 [...] is reported in the surgeon note as ER/AR positive and HER2/manolo pending however there are [...] not report any status of the ER, AR and HER2/manolo, however Dr. García note to dictate that patient was ER/AR positive and HER2/manolo was pending. Left breast [...] nipple 08/01/23 Lumpectomy path: Pathological Diagnosis A. Morrow node, left axilla, biopsy: Metastatic carcinoma to [...] Examined (sentinel and non-sentinel): 4 Number of Morrow Nodes Examined: 4 pTNM CLASSIFICATION (AJCC 8th [...] it was ER positive on the percent, AR +60%, low Ki-67 of only 5%, HER2 [...] She had DEXA scan in 07/2022 at [facility]. It revealed osteopenia with Tscore -0.6 12/21/23: [...] HER2/manolo and actual path report for the ER/AR status, possibly need Oncotype Dx testing to determine if she needs adjuvant chemotherapy. She will need adjuvant radiation. She will need adjuvant endocrine therapy if she is ER/AR positive. Intake Vitals/Pain Assessment 12/21/23 09:56 Height [...] taking Letrozole for the last 6 days. [facility] Medical History Medical History Diabetes Osteopenia Invasive ductal carcinoma of left breast Left breast cancer with T3 tumor, >5 cm in greatest dimension Ingrown right greater toenail removed Ingrown left greater toenail removed Fibrocystic breast determined by biopsy Vaginal atrophy [place] use Elevated fasting glucose Former smoker Depression [...] signed by Christine Velazquez MD> 12/21/23 1026 [facility] Work Phone: Progress note [facility] January 03, 2024 2:37pm Note Date/Time January 03, 2024 1: 58pm [facility] [place] [address] Cancer Center Note Signed Patient: Melony Manley MR#: [id number] : 1965 Acct:[id number] Age/Sex: 58 / F Type: REG AMB Date of Service: 01/03/24 Copies to: Susan Ayala MD~ Assessment & Plan (1) Invasive ductal carcinoma of left breast: Plan: Return to clinic as needed Assessment: 58-year-old female with [id number] invasive ductal carcinoma of the left breast, grade 2, ER/AR positive HER2 negative. Patient has undergone lumpectomy [...] carcinoma, provisional grade 1, with DCIS. Strongly ER/AR positive HER2 was equivocal 2+ There is [...] margin was less than 1 mm posteriorly. Morrow lymph node biopsy showed macrometastasis and 1 of 4 lymph nodes size of the largest manjit metastatic deposit was 4 mm. There was extranodal extension present 2 mm or less. [id number] 08/29/2023 return to OR for reexcision, no [...] Fall Precaution Measures Taken: Patient in chair [facility] Medical History Medical History Diabetes Osteopenia Invasive ductal carcinoma of left breast Left breast cancer with T3 tumor, >5 cm in greatest dimension Ingrown right greater toenail removed Ingrown left greater toenail removed Fibrocystic breast determined by biopsy Vaginal atrophy [place] use Elevated fasting glucose Former smoker Depression [...] signed by Gaurav Jaime MD> 01/03/24 1437 [facility] Work Phone: Progress note Author Christien Velazquez [facility] Note Date/Time May 23, 2024 1 2:13pm [facility] [place] [address] Cancer Center Note Signed Patient: Melony Manley MR#: [id number] : 1965 Acct:[id number] Age/Sex: 59 / F Type: REG AMB Date of Service: 05/23/24 Copies to: Susan Ayala MD~ Assessment & Plan A/P (1) Invasive ductal carcinoma of left breast: (2) Osteopenia: (3) Breast pain, left: Eugenio Ty is a 58-year-old nice lady with a stage IIa, pT1b, pN1, MX left breast centrally located invasive ductal carcinoma with 1+ out of 4 lymph node for invasive cancer. ER/AR reported from the 03/20/2023 core biopsy to be ER 100% positive, PER 60% positive and HER2 manolo 2+ by IHC, negative by FISH, Ki 67 low 5%. Surgical pathology report is not dictating the status of the ER, AR and HER2/manolo. Initial consult for medical oncology on 09/21/2023: We went over her new diagnosis of new left breast invasive ductal carcinoma, stage IIa, and we went over and discussed possible options of treatment based on the ER, AR and HER2/manolo status considering that she has [...] Tamoxifen alone. No benefit from adding adjuvant chemo and therefore, no need for adjuvant chemotherapy. She will need adjuvant radiation. She will need adjuvant endocrine therapy for 5-10 years. She had DEXA scan in 07/2022 at [facility]. It revealed osteopenia with Tscore -0.6 Since [...] 15 fractions completed 12/04/23. She started Femara December 2023 but held it due to drenching sweats and severe hot flashes and joint pain mainly in the left ankle after 1 week. She does not want to start it again I gave the patient option of being switched from Femara to either exemestane or tamoxifen because of the hot flashes however she asked her psychiatrist and the psychiatrist did not prefer tamoxifen at this point and prefer her to be on the Femara for any possible interaction with lithium or Seroquel. So she stayed on female back again since December 25, 2023. She stated the hot flashes are there but tolerable and using the fan for them. She denied any new suspicious abnormalities on her monthly self breast exam and denied any nipple bleeding or discharge. She is also taking her calcium 500 mg twice daily and vitamin D 2000 with the Fosamax once a week and denied any new concern or problem. In regards to her thrombocytopenia her labs on 12/22/2023 revealed a platelet count of 115 lipid lower than the baseline which is 130-146. She denied any bleeding. Her iron studies B12 and folate on 12/22/2023 came back within normal range 03/22/24: She is seen for add-on visit as she has had centrally located left breast pain intermittently over the last 3 weeks. Exam was performed and no new concerns were noted. Pain is around the area of previous surgeries, potentially from scar tissue or nerves regenerating vs. other concern. We will plan for diagnostic mammogram to rule out any concern for recurrence, which she would like done at [place]. We will call with results. Otherwise she will keep her follow-up as scheduled. 05/23/24: He is here for 2 months follow-up for her history of left breast cancer and osteopenia. She is taking her letrozole which she started in December 2023. Her last mammogram Was done on 04/02/2024 which came back benign and routine screening mammogram 12 months was recommended. She will be due for her next bone density scan in July 2024. She has been having mild flashes improved with the gabapentin 300 mg at bedtime She is taking her calcium 500 mg twice daily and vitamin D 2000 units daily along with the Fosamax once a week. In follow-up for her thrombocytopenia which was thought to be related to her lithium and Seroquel. Labs on 12/07/2024 revealed a platelet count of 146 slightly better than before. Her hemoglobin is normal 13.6 and has normal WBC. Her LFTs and renal functions are stable with a creatinine of 1.06 stable compared with before. Calcium is 10.3 slightly higher than normal range and LFTs are normal. Plan: Continue Femara for 5-10 years. Femara started in December 2023. Refilled her gabapentin 300 mg at bedtime. Bone density scan in July 2024. Alternative calcium 500 mg every other day with 500 mg every other day for the next 3 months until we have. Follow LFTs prior to next visit. Return in 3 months for results of the bone density scan to identify if she needsto be switched to Prolia. In terms of the osteopenia she is to continue calcium 500 mg twice daily with vitamin D 2000 unit daily and Fosamax once a week and she needs a bone density scan every 2 years. Since bone density scan was in 07/2022 at [facility],next one will be 07/2024. She will need screening mammogram as well every March. For her mild chronic thrombocytopenia, it may be related to [place] and Seroquelbut will monitor her CBC, CMP, LDH with each labs here every 3-6 months. Will check plt antibodies as well. Orders: Orders Comprehensive Metabolic Panel 3 Months C50.912 - Malignant neoplasm of unspecified site of left female breast, M85.80 - Other specified disorders of bone density and structure, unspecified site XR dexa axial skeleton 3 Months C50.912 - Malignant neoplasm of unspecified site of left female breast, M85.80 - Other specified disorders of bone density and structure, unspecified site Complete Blood Count Auto Diff 3 Months C50.912 - Malignant neoplasm of unspecified site of left female breast, M85.80 - Other specified disorders of bone density and structure, unspecified site Medications: New gabapentin 300 mg PO QHS 60 caps 1RF Patient Instructions: dexa scan in July cbc,cmp and follow up in 3 months CHEMO PLAN No Active Chemotherapy History of Present Illness BEN Ty is a 58 year old white female with history of osteopenia, Fibrocyctic breat disease, who was referred to our medical oncology office by Dr. García for a new left breast invasive ductal carcinoma in the center of the left breastthat is reported in the surgeon note as ER/AR positive and HER2/manolo pending however there are [...] not report any status of the ER, AR and HER2/manolo, however Dr. García note to dictate that patient was ER/AR positive and HER2/manolo was pending. Left breast [...] nipple 08/01/23 Lumpectomy path: Pathological Diagnosis A. Morrow node, left axilla, biopsy: Metastatic carcinoma to [...] Examined (sentinel and non-sentinel): 4 Number of Morrow Nodes Examined: 4 pTNM CLASSIFICATION (AJCC 8th [...] it was ER positive on the percent, AR +60%, low Ki-67 of only 5%, HER2 [...] She had DEXA scan in 07/2022 at [facility]. It revealed osteopenia with Tscore -0.6 12/21/23: [...] does not want to start it again 02/15/24: She is here for toxicity check while on Femara and fosamax fr her breast cancer and osteopenia. She does self breast exam and she denied any new masses or nipple bleeding or discharge. I gave the patient option of being switched from Femara to either exemestane or tamoxifen because of the hot flashes however she asked her psychiatrist and the psychiatrist did not prefer tamoxifen at this point and prefer her to be on the Femara for any possible interaction with lithium or Seroquel. So she stayed on female back again since December 25, 2023. She stated the hot flashes are there but tolerable and using the fan for them. She denied any new suspicious abnormalities on her monthly self breast exam and denied any nipple bleeding or discharge. She is also taking her calcium 500 mg twice daily and vitamin D 2000 with the Fosamax once a week and denied any new concern or problem. In regards to her thrombocytopenia her labs on 12/22/2023 revealed a platelet count of 115 lipid lower than the baseline which is 130-146. She denied any bleeding. Her iron studies B12 and folate on 12/22/2023 came back within normal range. Rest of 14 point systems were reviewed and are negative otherwise. 03/22/24: Has been getting sharp, stabbing pain in her left breast right around her nipplearea intermittently over the last 3 weeks. Can be days in between when it comes on, and is pretty random when she gets it. No other associated symptoms Has been fatigued a lot recently. Denies shortness of breath. Unsure if this pain is breast pain or chest pain- is deeper in her chest area also with dizziness in the last few weeks as well. Comes and goes, is mainly upon standing has been getting headaches as well in this time frame, maybe 1-2 times per week.Usually are on the right side of her head. Doesn't take anything for it eating and drinking ok, ensures she is well hydrated denies n/v/d/c. Denies s/s of bleeding gets muscle cramps, denies restless legs is in PT for her right arm, had recent XR on this. Seems now to be muscular in nature. Otherwise no bone pain no numbness, tingling, vision changes, or confusion has hair thinning. Denies cold intolerance or ice cravings denies fevers, chills, or night sweats. Looks like she's lost a bit of weight since her last visit and has not been trying feels weak in general, no issues with BP to her knowledge. No nosebleeds, etc. 05/23/24: He is here for 2 months follow-up for her history of left breast cancer and osteopenia. She is taking her letrozole which she started in December 2023. Her last mammogram Was done on 04/02/2024 which came back benign and routine screening mammogram 12 months was recommended. She will be due for her next bone density scan in July 2024. She has been having mild flashes improved with the gabapentin 300 mg at bedtime She is taking her calcium 500 mg twice daily and vitamin D 2000 units daily along with the Fosamax once a week. In follow-up for her thrombocytopenia which was thought to be related to her lithium and Seroquel. Labs on 12/07/2024 revealed a platelet count of 146 slightly better than before. Her hemoglobin is normal 13.6 and has normal WBC. Her LFTs and renal functions are stable with a creatinine of 1.06 stable compared with before. Calcium is 10.3 slightly higher than normal range and LFTs are normal. Intake Vitals/Pain Assessment 05/23/24 11:45 Height 5 ft 4 in Weight 72.121 kg BMI 27.3 Body Fat % 41.20 BP 149/83 H Blood Pressure Location Rt brachial Position Sitting Temp 97.6 F Temp Source Temporal Pulse 103 H Pulse Source NIBP Respiration 20 Pulse Oximetry (%) 99 Oxygen Delivery Method room air Are you having pain? No Intake Visit Reasons: Follow Up Allergies Penicillins Allergy (Severe, Verified 05/23/24 11:48) Swelling of Lip/Tongue/Throat Cephalosporins Allergy (Unknown, Verified 05/23/24 11:48) Unknown Reaction - Last Reconciled 05/23/24 by JOHNY Almendarez alendronate 70 mg PO QWEEK ascorbic acid (vitamin C) (Vitamin C) 500 mg PO QAM azelastine (Astepro Allergy) 2 sprays intranasal DAILY buspirone 5 mg PO BID calcium carbonate (Calcium 500) 500 mg PO DAILY cholecalciferol (vitamin D3) 50 mcg PO DAILY letrozole 2.5 mg PO DAILY levothyroxine TAKE 1 TABLET BY MOUTH EVERY DAY IN THE MORNING ON EMPTY STOMACH FOR 90 DAYS lithium carbonate ER 450 mg PO QPM omeprazole TAKE 1 CAPSULE BY MOUTH EVERY MORNING quetiapine 200 mg PO QPM rosuvastatin TAKE 1 TABLET BY MOUTH EVERY EVENING sulfamethoxazole-trimethoprim 800-160 mg 1 tab PO BID Gastrointestinal Is the patient taking opioids for pain control?: No Bowel Protocol for Opioids Given: No Bowel Pattern: Regular Bowel Movement Aid(s): None Falls Fall Precaution Measures Taken: Patient in chair Nurse's Note: Patient is here for a 2 month follow up with labs for review. Taking Letrzole. [facility] Medical History Medical History Diabetes Osteopenia Invasive ductal carcinoma of left breast Left breast cancer with T3 tumor, >5 cm in greatest dimension Ingrown right greater toenail removed Ingrown left greater toenail removed Fibrocystic breast determined by biopsy Vaginal atrophy [place] use Elevated fasting glucose Former smoker Depression [...] Smoking quit date/years: <= 15 years ago Nicotine containing products detail: Smokeless tobacco No Second hand tobacco smoke exposure: No Within the past year, how often did you have a drink containing alcohol: never Within the past year, how often did you have six or more drinks on one occasion: never AUDIT-C Alcohol total score: 0 AUDIT-C [...] weakness or sensory changes. Physical Exam EXAM General: Alert and oriented, no acute distress. HEENT: Normocephalic Chest: Normal work of breathing on room air Breast: Left breast shows surgical incisions well-healed. No residual skin changes from the radiation. No new lumps or skin changes noted. No axillary adenopathy noted. No nipple changes Abdomen: Nonacute MSK: Extremities within normal limits Results - [facility] (Med Onc) LAB RESULTS Corrected WBC 6.1 10 3/uL (4.0-11.0) 05/15/24 11:05/15/24 Hgb 13.6 g/dL (12.0-16.0) 05/15/24 11:05/15/24 Hct 43.3 % (36.0-48.0) 05/15/24 11:05/15/24 MCV 88.0 fL (81.0-99.0) 05/15/24 11:05/15/24 RDW 14.6 % (11.0-15.0) 05/15/24 11:05/15/24 Plt Count 146 10 3/uL (150-450) L 05/15/24 11:05/15/24 Sodium 145 mmol/L (136-145) 05/15/24 11:05/15/24 Potassium 4.3 mmol/L (3.5-5.1) 05/15/24 11:05/15/24 BUN 12.0 mg/dL (7.0-18.0) 05/15/24 11:05/15/24 Creatinine 1.06 mg/dL (0.55-1.02) H 05/15/24 11: 5 Glucose 174 mg/dL (74-106) H 05/15/24 11:05/15/24 Calcium 10.3 mg/dL (8.5-10.1) H 05/15/24 11:00 05/15/24 Total Bilirubin 0.5 mg/dL (0.2-1.0) 05/15/24 11:00 05/15/24 AST 27 U/L (15-37) 05/15/24 11:00 05/15/24 ALT 38 U/L (14-59) 05/15/24 11:00 05/15/24 Alkaline Phosphatase 105 U/L (46-116) 05/15/24 11:00 05/15/24 Total Protein 7.4 g/dL (6.4-8.2) 05/15/24 11:00 05/15/24 Albumin 4.0 g/dL (3.4-5.0) 05/15/24 11:00 05/15/24 Lactate Dehydrogenase 154 U/L (81-234) 05/15/24 11:00 05/15/24 Dictated By: Christine Velazquez MD DD/ [id number] Signed By: <Electronically signed by Christine Velazquez MD> 05/23/24 1213 [facility] Work Phone: Advance Directives Advance Directive [...] inoma of left breast (C50.912) Referral Organization [facility]dy Referring Provider First Name Susan Referring Provider Last Name Jamie Referring Provider Specialty Family [facility] Referred Organization [facility] Referred Provider Geraldo García Referred Address ,[place], [place],[address] Referred Provider Specialty Surgery Referral Priority Routine [...] Med Onc/Rad Onc Follow Up 1 Month BH Follow Up Left breast cancer Reason for Visit Invasive ductal carc inoma of left breast Osteopenia Invasive ductal carcinoma of left breast Invasive ductal carcinoma of left breast Osteopenia Chief Complaint Left breast cancer Screening Screening Amb Documentation f/u moved up from 01/02 per 12/13 triage Med Onc/Rad Onc Follow Up 1 Month BH Follow Up Left breast cancer Med Check [...] 10:38am UC follow up, not feeling better [facility] 2023 2:36pm Reason for Visit Admit Date Invasive ductal carcinoma of left breast January 03, 2024 1:43pm Invasive ductal carcinoma of left breast February 15, 2024 12:46pm Osteopenia February 15, 2024 1 2:46pm Right arm pain February 20, 2024 1 0:22am Type 2 diabetes mellitus with hyperglyce [facility] February 20, 2024 10:22am Right acute otitis media March 16, 2 024 9:09am Generalized body aches March 16 9:09am Sore throat March 16, 2024 9 :09am Breast pain, left March 22, 2024 10:25am Invasive ductal carcinoma of left breast March 22, 2024 10:25am Osteopenia March 22, 2024 10:25am Chief Complaint Admit Date Med Check Up/Ear Cleaning February 20, 2024 10:22am Sore throat, ear pain March 16, 2024 9:09am F/U from triage March 22, 2024 10:25am Left breast cancer March 22, 2024 10:38am UC follow up, not feeling better [facility] 2023 2:36pm April 16, 2024 12:53pm Cough/COVID- May 17, 2024 1 1:14am Reason for Visit Admit Date Right arm pain February 20, 2024 1 0:22am Type 2 diabetes mellitus with hyperglyce [facility] February 20, 2024 10:22am Right acute otitis media March 16, 2 024 9:09am Generalized body aches March 16 9:09am Sore throat March 16, 2024 9 :09am Breast pain, left March 22, 2024 10:25am Invasive ductal carcinoma of left breast March 22, 2024 10:25am Osteopenia March 22, 2024 10:25am Right acute otitis media March 25, 2024 2:36pm Chief Complaint Admit Date Sore throat, ear pain March 16, 2024 9:09am F/U from triage March 22, 2024 10:25am UC follow up, not feeling better [facility] 2023 2:36pm May 14, 2024 12 :00pm Cough/COVID- May 17, 2024 1 1:14am Follow Up May 23, 2024 1 1:41am Left breast cancer May 23, 2024 1 1:42am Reason for Visit Admit Date Right acute otitis media March 16, 2 024 9:09am Generalized body aches March 16 9:09am Sore throat March 16, 2024 9 :09am Breast pain, left March 22, 2024 10:25am Invasive ductal carcinoma of left breast March 22, 2024 10:25am Osteopenia March 22, 2024 10:25am Right acute otitis media March 25, 2024 2:36pm Sinusitis, acute maxillary May 17, 2024 11:14am Breast pain, left May 23, 2024 1 1:41am Invasive ductal carcinoma of left breast May 23, 2024 11:41am Osteopenia May 23, 2024 1 1:41am Chief Complaint Admit Date Sore throat, ear pain March 16, 2024 9:09am F/U from triage March 22, 2024 10:25am UC follow up, not feeling better [facility] 2023 2:36pm May 14, 2024 12 :00pm Cough/COVID- May 17, 2024 1 1:14am Follow Up May 23, 2024 1 1:41am Left breast cancer May 23, 2024 1 1:42am well adult May 24, 2024 1 :23pm Reason for Visit Admit Date Right acute otitis media March 16, 2 024 9:09am Generalized body aches March 16 9:09am Sore throat March 16, 2024 9 :09am Breast pain, left March 22, 2024 10:25am Invasive ductal carcinoma of left breast March 22, 2024 10:25am Osteopenia March 22, 2024 10:25am Right acute otitis media March 25, 2024 2:36pm Sinusitis, acute maxillary May 17, 2024 11:14am Breast pain, left May 23, 2024 1 1:41am Invasive ductal carcinoma of left breast May 23, 2024 11:41am Osteopenia May 23, 2024 1 1:41am Type 2 diabetes mellitus with hyperglyce [facility] May 24, 2024 1:23pm Wellness examination May 24, 2024 1:23pm Chief Complaint Admit Date Sore throat, ear pain March 16, 2024 9:09am F/U from triage March 22, 2024 10:25am UC follow up, not feeling better [facility] 2023 2:36pm [facility] May 14, 2024 12 :00pm Cough/COVID- May 17, 2024 1 1:14am Follow Up May 23, 2024 1 1:41am Left breast cancer May 23, 2024 1 1:42am well adult May 24, 2024 1 :23pm pink eye June 11, 2024 8 :41am Reason for Visit Admit Date Right acute otitis media March 16, 2 024 9:09am Generalized body aches March 16 9:09am Sore throat March 16, 2024 9 :09am Breast pain, left March 22, 2024 10:25am Invasive ductal carcinoma of left breast March 22, 2024 10:25am Osteopenia March 22, 2024 10:25am Right acute otitis media March 25, 2024 2:36pm Sinusitis, acute maxillary May 17, 2024 11:14am Breast pain, left May 23, 2024 1 1:41am Invasive ductal carcinoma of left breast May 23, 2024 11:41am Osteopenia May 23, 2024 1 1:41am Invasive ductal carcinoma of left breast May 24, 2024 1:23pm Type 2 diabetes mellitus with hyperglyce [facility] May 24, 2024 1:23pm Wellness examination May 24, 2024 1:23pm Bacterial conjunctivitis of right eye Fe bruary 2024 8:41am Additional Source Comments Care Teams (unrecognized sec [...] Status: Inactive Member Role Status Dates Susan Aayla MD Primary Care Provider Active Start: February [...] End: March 16, 2024 BELLE Hdez RN STUDENT SERVICES DIRECTOR-C Attending Provider Active Start: March 16, 2024 End: March 16, 2024 Team Status: Active Member Role Status Dates Susan Ayala MD Primary Care Provider Active Start: November 20, 2023 Grealdo García DO Referring Provider Active Start: November [...] Active Start: November 02, 2023 Geraldo García DO Referring Provider Active Start: November 02, 2023 Gaurav Jaime MD Attending Provid er, Other Provider Active Start: November 02, 2023 Team Status: Active Member Role Status Dates Susan Ayala MD Primary Care Provider Active Start: November 08, 2023 Geraldo García DO Referring Provider Active Start: November 08, 2023 Gaurav Jaime MD Attending Provid er, Other Provider Active Start: November 08, 2023 Team Status: Active Member Role Status Dates Susan Ayala MD Primary Care Provider Active Start: November 13, 2023 Geraldo García DO Referring Provider Active Start: November 13, 2023 Gaurav Jaime MD Attending Provid er, Other Provider Active Start: November 13, 2023 Team Status: Active Member Role Status Dates Susan Ayala MD Primary Care Provider Active Start: November 22, 2023 Geraldo García DO Referring Provider Active Start: November 22, [...] Team Status: Inactive Member Role Status Dates Ssuan Ayala MD Primary Care Provider Active Start: [...] Hilary Plaza MD Attending Provider Active Start: September [...] Hilary Plaza MD Attending Provider Active Start: October 31, 2023 Team Status: Active Member Role Status Dates Susan Ayala MD Primary Care Provider Active Start: November 15, 2023 Geraldo Itzkowitz , DO Referring Provider Active Start: November 15, [...] Attending Provider Active Start: December 04, 2023 Drill Sergeant Relationship Specialty Start Date End Date Susan Ayala MD [address] [id number] PCP - General Family Medicine 03/15/23 Drill Sergeant Relationship Specialty Start Date End Date Susan Ayala MD [address] [place] [id number] PCP - General Family Medicine 03/15/23 Team Status: Inactive Member Role Status Dates Susan Ayala MD Primary Care Provider Active Start: March 22, 2024 End: March 22, 2024 Teresa Herr APRN Attending Provider Active Start: March [...] March 25, 2024 End: March 25, 2024 Drill Sergeant Relationship Specialty Start Date End Date Susan Ayala MD [address] [address] PCP - General Family Medicine 03/15/23 Drill Sergeant Relationship Specialty Start Date End Date Susan Ayala MD [address] [phone] PCP - General Family Medicine 03/15/23 Drill Sergeant Relationship Specialty Start Date End Date Susan Ayala MD [address] [phone] PCP - General Family Medicine 03/15/23 Drill Sergeant Relationship Specialty Start Date End Date Susan Ayala MD [address] [id number] PCP - General Family Medicine 03/15/23 Drill Sergeant Relationship Specialty Start Date End Date Susan Ayala MD [address] [place] [phone] PCP - General Family Medicine 03/15/23 Team Status: Active Member Role Status Dates Gavin Plaza MD Attending Provider Active Start: April 16, 2024 Team Status: Active Member Role Status Dates Susan Ayala MD Primary Care Provider Active Start: May 15, 2024 Christine Velazquez MD Attending Provider Active Start: May 15, 2024 Team Status: Inactive Member Role Status Dates Susan Ayala MD Primary Care Provide r, Attending Provider Active Start: May 17, 2024 End: May 17, 2024 Team Status: Active Member Role Status Dates Gavin Plaza MD Attending Provider Active Start: May 14, 2024 Team Status: Inactive Member Role Status Dates Susan Ayala MD Primary Care Provider Active Start: May 23, 2024 End: May 23, 2024 Christine Velazquez MD Attending Provider Active Start: May 23, 2024 End: May 23, 2024 Team Status: Active Member Role Status Dates Susan Ayala MD Primary Care Provider Active Start: May 23, 2024 Christine Velazquez MD Attending Provider Active Start: May 23, 2024 Geraldo García DO Referring Provider Active Start: May 23, 2024 Gaurav Jaime MD Active Star t: May 23, 2024 Team Status: Inactive Member Role Status Dates Susan Ayala MD Primary Care Provide r, Attending Provider Active Start: May 24, 2024 End: May 24, 2024 Team Status: Inactive Member Role Status Dates Susan Ayala MD Primary Care Provide r, Attending Provider Active Start: June 11, 2024 End: June 11, 2024 Goals (unrecognized section and content) Goals [...] Reason Comments Toenail Care Non DM Nails Reason Comments Otitis Media INFORMATION SOURCE (unrecogn ized section and content) DATE CREATED AUTHOR 09/02/2022 [facility] pital DATE CREATED AUTHOR AUTHOR'S ORGANIZ ATION 07/07/2023 [facility] DATE CREATED AUTHOR AUTHOR'S ORGANIZ ATION 03/09/2024 [facility] EPIC DATE CREATED AUTHOR AUTHOR'S ORGANIZ ATION 05/26/[address] [facility] y[facility] FOR RECORDS PERTAINING TO [...] BE BASED ON THE PRIMARY CLINICAL RECORDS. [facility] provides no warranty or guarantee of the accuracy or completeness of information in this document.
[2024-06-11 10:28] LABS: Estimated GFR (African America >60 (>=60 mL/min/1.73m^2); Estimated GFR (Non-African Ame 51 (>=60 mL/min/1.73m^2); Thyroid Stimulating Hormone 0.313 uIU/mL (0.358-3.740)
[2024-06-12 05:06] LABS: Lithium (Eskalith(R)), Serum 0.8 mmol/L (0.5-1.2)
== END 2024-06-11 09:16 | disposition home or self-care (01) ==
LOC: LAB 09:17
PROVIDERS: PCP Family Medicine; Visit Provider Psychiatry & Neurology Psychiatry
DX: F31.89 Other bipolar disorder (principal); Z79.899 Other long term (current) drug therapy
CPT/HCPCS: 36415; 80178; 82565; 84443

== ENCOUNTER 2024-06-11 09:21 | Outpatient (OUT) | payer MEDICARE, MEDICAID, SELFPAY ==
--- OUTSIDE RECORDS SUMMARY | 2024-06-11 09:39 | XMS_ITS | CCD ---
Author Organization [facility] Care Team Providers Care Jacquard Loom Heddles Tier Name Role Phone MD Susan Ayala Attending [...] Ayala Unavailable DO Geraldo García Attending Provider [phone] MD Susan Ayala Primary Care Provider ADAMA GARCÍA Referring Unavailable SUSAN AYALA Primary Care Unavailable Itzkowitz, DO Geraldo Attending Provider MD Susan Ayala Primary Care Provider Itzviraj, DO Geraldo Attending Provider [phone] MD Susan Ayala Primary Care Provider MD Gavin Plaza Attending Provider MD Gavin Plaza Attending Provider MD Susan Ayala Primary Care Provider Itruby, DO Geraldo Attending Provider MD Gavin Plaza Attending Provider MD Christine Velazquez Attending Provider Itzviraj, DO Geraldo Referring Provider [phone] MD Susan Ayala Primary Care Provider Itruby, DO Geraldo Attending Provider MD Christine Velazquez Attending Provider Itruby, DO Geraldo Referring Provider [phone] MD Gavin Plaza Attending Provider [phone] MD Susan Ayala Primary Care Provider Marcus, DO Geraldo Referring Provider [phone] MD Gaurav Jaime Attending Provider DO Lisa Rubalcava L Attending Provider [phone] MD Susan Ayala Primary Care Provider MD Gavin Plaza Attending Provider MD Christine Velazquez Attending Provider [phone] Marcus, DO Geraldo Referring Provider MD Christine Velazquez Attending Provider Itzkowitz, DO Geraldo Referring Provider [phone] MD Gavin Plaza Attending Provider MD Christine Velazquez Attending Provider Itzkowitz, DO Geraldo Referring Provider Susan Ayala MD Primary Care Provider GILSON PORTILLO Attending Unavailable ITZKOWITZ, GERALDO H [...] Provider Caroline SEPULVEDA, Christine Amaya Attending Provider [phone] Itzkowitz DO, Geraldo Referring Provider Gavin Plaza MD Attending Provider Susan Ayala MD Primary Care Provider Christine Velazquez MD Attending Provider Itzkowitz DO, Geraldo Referring Provider Gavin Plaza MD Attending Provider Gavin Plaza MD Attending Provider Susan Ayala MD Primary Care Provider Christine Velazquez MD Attending Provider Geraldo García DO Referring Provider Itzkoyue, Geraldo Admitting Unavailable Itruby, Geraldo Attending [...] (Antibiotic) Drug Allergy 10-11-19 24 Unknown Reaction [facility] Penicillins (antibiotic) (1 source) Penicillins Drug Allergy 10-11-19 24 Swelling of Lip/Tongue/Thro at [facility] (9 sources) cefdinir Drug Allergy Unknown [employer] Other (15 sources) Penicillin Drug Allergy halucination and swallowing dificulty [employer] Other (20 sources) Penicillins Drug allergy (disorder) 05-08-18 76 Swelling of Lip/Tongue/Thro at [facility] (10 sources) Medicinal cephalosporin and acting as antibacterial agent (FN) Drug allergy Unknown [employer] Other (10 sources) Ceftin *CEPHALOSPORINS* Propensity to adverse reactions Unknown [employer] Other (20 sources) Cephalosporins (Antibiotic); Translations: [Cephalosporins] Allergy to substance 07-19-19 24 Unknown Reaction [facility] (9 sources) Penicillins Drug Allergy 03-09-20 23 Other [facility] (2 sources) Penicillins Drug allergy (disorder) 07-19-19 24 [facility] Repository Medications Current Medications Medication Drug Class(es) [...] by mouth once daily in the evening [place] Carbonate 450 mg tablet extended release Active 450 MG PO Every evening May 02, 2023 12:00am [place] Carbonat e 450 mg 2 tablets QHS [...] therapy] Episodic Other aftercare (3 sources) Other extermination inspector (current) drug therapy; Translations: [OTH PRISON 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 THERAPY] Onset: 04-18-2022 Episodic Other [...] (Bld) [#/Vol] Automated basoph il count 0.0-0.1 [facility] Basophils/100 WBC Auto (Bld) on 05-15-2024 Basophils/100 WBC (Bld) Automated basophil % 0. 2-2.0 [facility] Eosinophils/100 WBC Auto (Bl d)on 05-15-2024 Eosinophils/100 WBC (Bld) Automated eosinophil % 0.9-7.0 [facility] Erythrocyte distribution wid th Auto (RBC) [Ratio]on 05-15-2024 Erythrocyte distribution width (RBC) [Ratio] Erythrocyte distribution width [Ratio] by Automated count 11.0-15.0 [facility] Estimated glomerular filtrat ion rate (GFR) non- Americanon 05-15-2024 GFR/1.73 sq M.predicted among non-blacks MDRD (S/P/Bld) [Vol rate/Area] Estimated glomerular filtration rate (GFR) non- Low >=60 mL/min/1.73 m 2 [facility] Globulin Calc (S) [Mass/Vol] on 05-15-2024 Globulin (S) [Mass/Vol] Serum globulin measurement by calculation (mass/volume) [facility] Hematocrit Auto (Bld) [Volum e fraction]on 05-15-2024 Hematocrit (Bld) [Volume fraction] Hematocrit [Volume Fraction] of Blood by Automated count 36.0-48.0 [facility] Hemoglobin [Mass/volume] in Bloodon 05-15-2024 Hemoglobin (Bld) [Mass/Vol] Hemoglobin [Mass/volume] in Blood 12.0-16.0 [facility] Laboratory - Chemistry and C hemistry - challengeon 05-15-2024 Albumin [Mass/Vol] 4.0 g/dL 3.4-5.0 [facility] ALP [Catalytic activity/Vol] 105 U/L 46-116 [facility] ALT [Catalytic activity/Vol] 38 U/L 14-59 [facility] AST [Catalytic activity/Vol] 27 U/L 15-37 [facility] Bilirubin [Mass/Vol] 0.5 mg/dL 0.2-1.0 [facility] Calcium [Mass/Vol] 10.3 mg/dL High 8.5-10.1 [facility] Chloride [Moles/Vol] 106 mmol/L 98-107 [facility] CO2 [Moles/Vol] 26.9 mmol/L 21.0-32.0 [facility] Creatinine [Mass/Vol] 1.06 mg/dL High 0.55-1.02 [facility] GFR/1.73 sq M.predicted MDRD (S/P/Bld) [Vol rate/Area] mL/min/{1.73_m2} >=60 mL/min/1.73 m 2 [facility] Glucose [Mass/Vol] 174 mg/dL High 74-106 [facility] LDH [Catalytic activity/Vol] 154 U/L 81-234 [facility] Potassium [Moles/Vol] 4.3 mmol/L 3.5-5.1 [facility] Protein [Mass/Vol] 7.4 g/dL 6.4-8.2 [facility] Sodium [Moles/Vol] 145 mmol/L 136-145 [facility] Urea nitrogen [Mass/Vol] 12.0 mg/dL 7.0-18.0 [facility] Urea nitrogen/Creatinine [Mass ratio] 11.3 mg/mg [facility] Laboratory - Hematology and Cell countson 05-15-2024 Immature granulocytes/100 WBC (Bld) 0.5 % 0.0-0.5 [facility] Leukocytes [#/volume] correc cori for nucleated erythrocytes in Blood by Automated counon 05-15-2024 WBC corrected for nucl RBC Auto (Bld) [#/Vol] Leukocytes [#/volume] corrected for nucleated erythrocytes in Blood by Automated coun 4.0-11.0 [facility] Lymphocytes Auto (Bld) [#/Vo l]on 05-15-2024 Lymphocytes (Bld) [#/Vol] Lymphocytes [#/volume] in Blood by Automated count 1.2-3.8 [facility] Lymphocytes/100 WBC Auto (Bl d)on 05-15-2024 Lymphocytes/100 WBC (Bld) Lymphocytes/100 leukocytes in Blood by Automated count 20.5-60.0 [facility] MCH Auto (RBC) [Entitic mass ]on 05-15-2024 MCH (RBC) [Entitic mass] MCH [Entitic mass] by Automated count 26.7-34.0 [facility] MCHC Auto (RBC) [Mass/Vol]on 05-15-2024 MCHC (RBC) [Mass/Vol] MCHC [Mass/volume] by Automated count 29.9-35.2 [facility] MCV Auto (RBC) [Entitic vol] on 05-15-2024 MCV (RBC) [Entitic vol] MCV [Entitic vol ume] by Automated count 81.0-99.0 [facility] Monocytes Auto (Bld) [#/Vol] on 05-15-2024 Monocytes (Bld) [#/Vol] Automated blood monocyte count 0.3-0.8 [facility] Monocytes/100 WBC Auto (Bld) on 05-15-2024 Monocytes/100 WBC (Bld) Automated monocyte % 1. 7-12.0 [facility] Neutrophils Auto (Bld) [#/Vo l]on 05-15-2024 Neutrophils (Bld) [#/Vol] Neutrophils [#/volume] in Blood by Automated count 1.4-6.5 [facility] Neutrophils/100 WBC Auto (Bl d)on 05-15-2024 Neutrophils/100 WBC (Bld) Automated neutrophil % 43.0-75.0 [facility] No Panel Informationon 05-15 Eosinophils # (Auto) 0.2 10 3/uL 0.0-0.7 [facility] Immature Granulocyte # (Auto) 0.03 10 3/uL 0.00-0.03 [facility] Miscellaneous Test COMMENT . [facility] Comment on above: Test Ordered: [id number] Platelet Antibody ProfileHLA Class 1 Antibody Negative BN Reference Range: NegativeIIb/IIIa Antibody Negative BN Reference Range: NegativeIb/IX Antibody Negative BN Reference Range: NegativeIa/IIa Antibody Negative BN Reference Range: NegativeGlycoprotein IV Antibody Negative BN Reference Range: NegativePerformed at: BN - [facility] [id number] Director: Carlos Alberto Goss MD, Phone: [phone] at: - [facility] [id number] Director: Wojciech Farah PhD, Phone: [phone] Platelet mean volume Auto (B ld) [Entitic vol]on 05-15-2024 Platelet mean volume (Bld) [Entitic vol] Platelet mean volume [Entitic volume] in Blood by Automated count 9.5-13.5 [facility] Platelets Auto (Bld) [#/Vol] on 05-15-2024 Platelets (Bld) [#/Vol] Platelets [#/vol ume] in Blood by Automated count Low 150-450 [facility] RBC Auto (Bld) [#/Vol]on RBC (Bld) [#/Vol] Erythrocytes [#/volu me] in Blood by Automated count 4.20-5.40 [facility] Serum or plasma albumin/glob ulin mass ratioon 05-15-2024 Albumin/Globulin [Mass ratio] Serum or plasma albumin/globulin mass ratio [facility] Serum or plasma anion gap de terminationon 05-15-2024 Anion gap [Moles/Vol] Serum or plasma an ion gap determination [facility] Auditory function testson Right Ear: Mild sensorineural hearing loss from 250 Hz - 1K Hz rising to normal hearing from 2K Hz - 3K Hz. Mild to moderate sensorineural hearing loss above 3K Hz Left Ear: Mild sensorineural hearing loss at 8K Hz only [facility] Healthcare COVID Cepheidon 03-16-2024 SARS-CoV-2 (COVID-19) RNA HIMANSHU+probe Ql (Unsp spec) [facility] an d Antimicrobial susceptibilityon 03-16-2024 SARS-CoV-2 (COVID-19) RNA HIMANSHU+probe Ql (Unsp spec) Negative [facility] No Panel InformationOrdered By: Valencia Boyd on 03-16-2024 Quick Strep (POC) [facility] No Panel Informationon 03-16 POC Influenza A (PCR) Negative [facility] POC Influenza B (PCR) Negative [facility] HbA1c HPLC (Bld) [Mass fract ion]on 02-20-2024 HbA1c (Bld) [Mass fraction] Hemoglobin A1c/Hemoglobin.total in Blood by HPLC [facility] Globulin Calc (S) [Mass/Vol] on 02-08-2024 Globulin (S) [Mass/Vol] 3.6 g/dL [facility] Globulin (S) [Mass/Vol] Serum globulin measurement by calculation (mass/volume) [facility] Laboratory - Chemistry and C hemistry - challengeon 02-08-2024 Albumin [Mass/Vol] 4.0 g/dL 3.4-5.0 [facility] ALP [Catalytic activity/Vol] 104 U/L 46-116 [facility] ALT [Catalytic activity/Vol] 37 U/L 14-59 [facility] AST [Catalytic activity/Vol] 29 U/L 15-37 [facility] Bilirubin [Mass/Vol] 0.4 mg/dL 0.2-1.0 [facility] Bilirubin.direct [Mass/Vol] 0.1 mg/dL 0.0-0.2 [facility] Protein [Mass/Vol] 7.6 g/dL 6.4-8.2 [facility] Serum or plasma albumin/glob ulin mass ratioon 02-08-2024 Albumin/Globulin [Mass ratio] 1.1 {ratio} [facility] Albumin/Globulin [Mass ratio] Serum or plasma albumin/globulin mass ratio [facility] Basophils Auto (Bld) [#/Vol] on 12-22-2023 Basophils (Bld) [#/Vol] 0.0 10 3/uL 0.0-0.1 [facility] Basophils/100 WBC Auto (Bld) on 12-22-2023 Basophils/100 WBC (Bld) 0.2 % 0.2-2.0 [facility] Eosinophils/100 WBC Auto (Bl d)on 12-22-2023 Eosinophils/100 WBC (Bld) 0.0 % Low 0.9-7.0 [facility] Erythrocyte distribution wid th Auto (RBC) [Ratio]on 12-22-2023 Erythrocyte distribution width (RBC) [Ratio] 13.9 % 11.0-15.0 [facility] Estimated glomerular filtrat ion rate (GFR) non- Americanon 12-22-2023 GFR/1.73 sq M.predicted among non-blacks MDRD (S/P/Bld) [Vol rate/Area] 52 mL/min/{1.73_m2} Low >=60 [facility] Globulin Calc (S) [Mass/Vol] on 12-22-2023 Globulin (S) [Mass/Vol] 3.3 g/dL [facility] Hematocrit Auto (Bld) [Volum e fraction]on 12-22-2023 Hematocrit (Bld) [Volume fraction] 42.6 % 36.0-48.0 [facility] Hemoglobin [Mass/volume] in Bloodon 12-22-2023 Hemoglobin (Bld) [Mass/Vol] 13.1 g/dL 12.0-16.0 [facility] Iron binding capacity [Mass/ volume] in Serum or Plasmaon 12-22-2023 Iron binding capacity [Mass/Vol] 324.0 ug/dL 250.0-450.0 [facility] Iron saturation [Mass Fracti on] in Serum or Plasmaon 12-22-2023 Iron saturation [Mass fraction] 18.5 % [facility] Laboratory - Chemistry and C hemistry - challengeon 12-22-2023 Albumin [Mass/Vol] 4.1 g/dL 3.4-5.0 [facility] ALP [Catalytic activity/Vol] 101 U/L 46-116 [facility] ALT [Catalytic activity/Vol] 42 U/L 14-59 [facility] AST [Catalytic activity/Vol] 35 U/L 15-37 [facility] Bilirubin [Mass/Vol] 0.4 mg/dL 0.2-1.0 [facility] Calcium [Mass/Vol] 10.0 mg/dL 8.5-10.1 [facility] Chloride [Moles/Vol] 107 mmol/L 98-107 [facility] CO2 [Moles/Vol] 27.1 mmol/L 21.0-32.0 [facility] Cobalamin (Vitamin B12) [Mass/Vol] 382.0 pg/mL 193.0-986.0 [facility] Creatinine [Mass/Vol] 1.07 mg/dL High 0.55-1.02 [facility] Ferritin [Mass/Vol] 312.0 ng/mL High 8.0-252.0 [facility] GFR/1.73 sq M.predicted MDRD (S/P/Bld) [Vol rate/Area] mL/min/{1.73_m2} >=60 [facility] Glucose [Mass/Vol] 143 mg/dL High 74-106 [facility] Iron [Mass/Vol] 60.0 ug/dL 50.0-170.0 [facility] Potassium [Moles/Vol] 5.0 mmol/L 3.5-5.1 [facility] Protein [Mass/Vol] 7.4 g/dL 6.4-8.2 [facility] Sodium [Moles/Vol] 143 mmol/L 136-145 [facility] Urea nitrogen [Mass/Vol] 13.0 mg/dL 7.0-18.0 [facility] Urea nitrogen/Creatinine [Mass ratio] 12.1 mg/mg [facility] Laboratory - Hematology and Cell countson 12-22-2023 Immature granulocytes/100 WBC (Bld) 0.2 % 0.0-0.5 [facility] Leukocytes [#/volume] correc cori for nucleated erythrocytes in Blood by Automated counon 12-22-2023 WBC corrected for nucl RBC Auto (Bld) [#/Vol] 4.2 10 3/uL 4.0-11.0 [facility] Lymphocytes Auto (Bld) [#/Vo l]on 12-22-2023 Lymphocytes (Bld) [#/Vol] 0.8 10 3/uL Low 1.2-3.8 [facility] Lymphocytes/100 WBC Auto (Bl d)on 12-22-2023 Lymphocytes/100 WBC (Bld) 18.5 % Low 20.5-60.0 [facility] MCH Auto (RBC) [Entitic mass ]on 12-22-2023 MCH (RBC) [Entitic mass] 27.8 pg 26.7-34.0 [facility] MCHC Auto (RBC) [Mass/Vol]on 12-22-2023 MCHC (RBC) [Mass/Vol] 30.8 g/dL 29.9-35.2 [facility] MCV Auto (RBC) [Entitic vol] on 12-22-2023 MCV (RBC) [Entitic vol] 90.4 fL 81.0-99.0 [facility] Monocytes Auto (Bld) [#/Vol] on 12-22-2023 Monocytes (Bld) [#/Vol] 0.3 10 3/uL 0.3-0.8 [facility] Monocytes/100 WBC Auto (Bld) on 12-22-2023 Monocytes/100 WBC (Bld) 8.1 % 1.7-12.0 [facility] Neutrophils Auto (Bld) [#/Vo l]on 12-22-2023 Neutrophils (Bld) [#/Vol] 3.1 10 3/uL 1.4-6.5 [facility] Neutrophils/100 WBC Auto (Bl d)on 12-22-2023 Neutrophils/100 WBC (Bld) 73.0 % 43.0-75.0 [facility] No Panel Informationon 12-21 Eosinophils # (Auto) 0.0 10 3/uL 0.0-0.7 [facility] Folate 8.60 ng/mL 8.60-58.90 [facility] Immature Granulocyte # (Auto) 0.01 10 3/uL 0.00-0.03 [facility] Platelet mean volume Auto (B ld) [Entitic vol]on 12-22-2023 Platelet mean volume (Bld) [Entitic vol] 10.1 fL 9.5-13.5 [facility] Platelets Auto (Bld) [#/Vol] on 12-22-2023 Platelets (Bld) [#/Vol] 115 10 3/uL Low 150-450 [facility] RBC Auto (Bld) [#/Vol]on RBC (Bld) [#/Vol] 4.71 10 6/uL 4.20-5.40 [facility] Serum or plasma albumin/glob ulin mass ratioon 12-22-2023 Albumin/Globulin [Mass ratio] 1.2 {ratio} [facility] Serum or plasma anion gap de terminationon 12-22-2023 Anion gap [Moles/Vol] 13.9 mmol/L [facility] Capillary blood glucose juan urement by glucometer (mass/volume)Ordered By: Lisa Rubalcava on 12-05-2023 Glucose [Mass/Vol] 98 mg/dL Normal [facility] Comment on above: Random Glucose Refer ence Range is dependent on time and content of last meal. Glucose of more than 200 mg/dL in a nonstressed, ambulatory subject supports the diagnosis of Diabetes Mellitus. Result Comment: [place] Glucose Reference Range is dependent on time and content of last meal. Glucose of more than 200 mg/dL in a nonstressed, ambulatory subject supports the diagnosis of Diabetes Mellitus. Performed By: #### G LULS #### Point of Care testing , Glucose Poct Glucometerson 0 12-05-2023 Commemt1 Glu2: Cleaned Meter Normal [facility] Comment on above: Result Comment: PERF ORMED BY: [facility] [address] [place] [address] PATHOLOGIST FRAME CARVER SPINDLE HUI NORTH M.D. Performed By: #### G LULS #### Point of Care testing , Yoan 12-05-2023 L Specimen: [id number] Received: 12/05/23 Status: WAN Marie Num: [id number] Spec Type: Surgical Subm Dr: Lisa Rubalcava DO Tissues: A Colon Biopsy (SIGMOID POLYP) Procedures: HE/2, Gross/Micro L4 Age/ Patient Sex Location Account Attending Physician Melony Manley 58/F [id number] Lisa Rubalcava DO SPEC NUM: [id number] RECD: 12/05/23 STATUS: WAN MARIE NUM: [id number] MANGO: 12/05/23- SUBM DR: Lisa Rubalcava DO ENTERED: 12/05/[address]: SPEC TYPE: Surgical DEPT: S ORDERED: [...] and entirely submitted in A1. CPT Codes 58191 Specimen: [id number] Received: 12/05/23 Status: WAN Rodriguezcan Num: [id number] Spec Type: Surgical Subm Dr: Lisa Rubalcava DO Tissues: A Colon Biopsy (SIGMOID POLYP) Procedures: Charli GALLARDO/John L4 Patient: VetoMelony [id number] (Continued) Signed (signature on file) Ugo Brandt Jr., MD 12/06/23 [id number] Normal [facility] No Panel InformationOrdered By: Lisa Rubalcava on 12-05-2023 Bedside Glucose Comment Glu2: cleaned meter [facility] Estimated glomerular filtrat ion rate (GFR) non- Americanon 11-15-2023 GFR/1.73 sq M.predicted among non-blacks MDRD (S/P/Bld) [Vol rate/Area] 52 mL/min/{1.73_m2} Low >=60 [facility] Globulin Calc (S) [Mass/Vol] on 11-15-2023 Globulin (S) [Mass/Vol] 3.5 g/dL [facility] Laboratory - Chemistry and C hemistry - challengeon 11-15-2023 Albumin [Mass/Vol] 3.9 g/dL 3.4-5.0 [facility] ALP [Catalytic activity/Vol] 91 U/L 46-116 [facility] ALT [Catalytic activity/Vol] 44 U/L 14-59 [facility] AST [Catalytic activity/Vol] 40 U/L High 15-37 [facility] Bilirubin [Mass/Vol] 0.4 mg/dL 0.2-1.0 [facility] Calcium [Mass/Vol] 9.3 mg/dL 8.5-10.1 [facility] Chloride [Moles/Vol] 110 mmol/L High 98-107 [facility] CO2 [Moles/Vol] 26.2 mmol/L 21.0-32.0 [facility] Creatinine [Mass/Vol] 1.07 mg/dL High 0.55-1.02 [facility] GFR/1.73 sq M.predicted MDRD (S/P/Bld) [Vol rate/Area] mL/min/{1.73_m2} >=60 [facility] Glucose [Mass/Vol] 127 mg/dL High 74-106 [facility] Potassium [Moles/Vol] 4.7 mmol/L 3.5-5.1 [facility] Protein [Mass/Vol] 7.4 g/dL 6.4-8.2 [facility] Sodium [Moles/Vol] 145 mmol/L 136-145 [facility] Urea nitrogen [Mass/Vol] 12.0 mg/dL 7.0-18.0 [facility] Urea nitrogen/Creatinine [Mass ratio] 11.2 mg/mg [facility] Serum or plasma albumin/glob ulin mass ratioon 11-15-2023 Albumin/Globulin [Mass ratio] 1.1 {ratio} [facility] Serum or plasma anion gap de terminationon 11-15-2023 Anion gap [Moles/Vol] 13.5 mmol/L [facility] Cholesterol in LDL Calc [Mas s/Vol]on 09-26-2023 Cholesterol in LDL [Mass/Vol] 31.0 mg/dL [facility] Comment on above: <100 mg/dl [id number] 0-129 mg/dl NEAR OR ABOVE [id number] mg/dl BORDERLINE [id number] mg/dl HIGH>190 mg/dl VERY HIGH Cholesterol in VLDL Calc [Ma ss/Vol]on 09-26-2023 Cholesterol in VLDL [Mass/Vol] 47.8 mg/dL [facility] Estimated glomerular filtrat ion rate (GFR) non- Americanon 09-26-2023 GFR/1.73 sq M.predicted among non-blacks MDRD (S/P/Bld) [Vol rate/Area] mL/min/{1.73_m2} >=60 [facility] Glucose mean value [Mass/vol ume] in Blood Estimated from glycated hemoglobinon 09-26-2023 Average glucose Estimated from glycated hemoglobin (Bld) [Mass/Vol] 189 mg/dL [facility] Laboratory - Chemistry and C hemistry - challengeon 09-26-2023 Cholesterol [Mass/Vol] 120 mg/dL <=200 [facility] Cholesterol in HDL [Mass/Vol] 42 mg/dL 40-60 [facility] Comment on above: > or =60 mg/dl - LOW CARDIOVASCULAR RISK<40 mg/dl - HIGH CARDIOVASCULAR RISK Creatinine [Mass/Vol] 0.89 mg/dL 0.55-1.02 [facility] GFR/1.73 sq M.predicted MDRD (S/P/Bld) [Vol rate/Area] mL/min/{1.73_m2} >=60 [facility] Glucose [Mass/Vol] 182 mg/dL High 74-106 [facility] Triglyceride [Mass/Vol] 239 mg/dL High <=150 [facility] TSH Qn 2.178 m[IU]/L 0.358-3.740 [facility] Laboratory - Hematology and Cell countson 09-26-2023 HbA1c (Bld) [Mass fraction] 8.2 % High 4.5-6.2 [facility] Comment on above: ADA RECOMMENDED LIMI T 4.0 - 6.0ADA THERAPEUTIC TARGET < 7.0ACTION SUGGESTED> 7.0 No Panel Informationon 09-25 [place] Level 0.7 mmol/L 0.5-1.2 [facility] Comment on above: A concentration of 0 .5-0.8 mmol/L is advised for long-termuse; concentrations of up to 1.2 mmol/L may be necessaryduring acute treatment. Detection Limit = 0.1 <0.1 indicates None DetectedPerformed at: [facility] [id number] Director: Wojciech Farah PhD, Phone: [phone] Serum or plasma total choles terol/high density lipoprotein (HDL) cholesterol mass alix 09-26-2023 Cholesterol.total/Juanita sterol in HDL [Mass ratio] 2.9 {ratio} [facility] Comment on above: 3.3 - 4.4 LOW RISK4. 4 - 7.1 AVERAGE RISK7.1 - 11.0 MODERATE RISK>11.0 HIGH RISK Yoan 08-29-2023 L Specimen: [id number] Received: 08/29/23 Status: WAN Marie Num: [id number] Spec Type: Surgical Subm Dr: Geraldo García DO Tissues: A Breast Biopsy/Mass Not Requiring Micro Eval of Margins (RE-EXC POST MARGIN L Procedures: HE/9, Gross/Micro L4, AE1-AE3/3 Age/ Patient Sex Location Account Attending Physician Melony Manley 58/F [place] [id number] Geraldo García DO SPEC NUM: [id number] RECD: 08/29/23 STATUS: WAN MARIE NUM: [id number] MANGO: 08/29/[address]: Geraldo García DO [...] specimen is entirely submitted as follows: Specimen: [id number] Received: 08/29/23 Status: WAN Marie Num: [id number] Spec Type: Surgical Subm Dr: Geraldo García DO Tissues: A Breast Biopsy/Mass Not Requiring Micro Eval of Margins (RE-EXC POST MARGIN L Procedures: , Gross/Micro L4, AE1-AE3/3 Patient: Melony Manley [id number] (Continued) Specimen: [id number] Received: 08/29/23 (Continued) Gross Description (Continued) Signed (signature on file) Nathaniel Gillette MD 08/31/23 1126 Specimen: [id number] Received: 08/29/23 Status: BHUPINDERKirk Marie Num: [id number] Spec Type: Surgical Subm Dr: Geraldo García DO Tissues: A Breast Biopsy/Mass Not Requiring Micro Eval of Margins (RE-EXC POST MARGIN L Procedures: Yesi Gross/Micro L4, AE1-AE3/3 Patient: Melony Manley [id number] (Continued) Specimen: [id number] Received: 08/29/23-1230 (Continued) Gross Description (Continued) A1: [...] posterior margin left breast TW CPT Codes 89805 [id number] LUMP WITH BIOPSY CLIP AND SUTURES LUMP WITH BIOPSY CLIP AND SUTURES Specimen: [id number] Received: 08/29/23 Status: WAN Marie Num: [id number] Spec Type: Surgical Subm Dr: Geraldo García, DO Tissues: A Breast Biopsy/Mass Not Requiring Micro Eval of Margins (RE-EXC POST MARGIN L Procedures: HE/9, Gross/Micro L4, AE1-AE3/3 Patient: Melony Manley [id number] (Continued) (more content not included)... Normal [facility] Automated basophil %Ordered By: Ibrahima Chand on 08-01-2023 Basophils/100 WBC (Bld) 0.5 % Normal . [facility] Comment on above: Performed By: #### C BC, BMP #### [facility] [address] Automated basophil countOrde red By: Ibrahima Chand on 08-01-2023 Basophils (Bld) [#/Vol] 0.0 10*3/uL Normal 0.0-0.2 [facility] Comment on above: Result Comment: PERF ORMED BY: [facility] [address] [place] [address] PATHOLOGIST FRAME CARVER SPINDLE HUI NORTH M.D. Performed By: #### C BC, BMP #### [address] Automated blood monocyte cou ntOrdered By: Ibrahima Chand on 08-01-2023 Monocytes (Bld) [#/Vol] 0.4 10*3/uL Normal 0.0-0.8 [facility] Comment on above: Performed By: #### C BC, BMP #### [address] Automated eosinophil %Ordere d By: Ibrahima Chand on 08-01-2023 Eosinophils/100 WBC (Bld) 0.1 % Normal . [facility] Comment on above: Performed By: #### C BC, BMP #### [address] Automated eosinophil countOr dered By: Ibrahima Chand on 08-01-2023 Eosinophils (Bld) [#/Vol] 0.0 10*3/uL Normal 0.0-0.45 [facility] Comment on above: Performed By: #### C BC, BMP #### [address] Automated monocyte %Ordered By: Ibrahima Chand on 08-01-2023 Monocytes/100 WBC (Bld) 7.1 % Normal . [facility] Comment on above: Performed By: #### C BC, BMP #### [address] Automated neutrophil %Ordere d By: Ibrahima Maciasain on 08-01-2023 Neutrophils/100 WBC (Bld) 73.1 % Normal . [facility] Comment on above: Performed By: #### C BC, BMP #### [address] Basic Metabolic Panelon 07-07 Anion gap [Moles/Vol] Not performed Normal 6.0-15.0 [facility] Comment on above: Performed By: #### C BC, BMP #### [address] Creatinine Clr Calc Pharmacy 75.96 Normal [facility] Comment on above: Result Comment: PERF ORMED BY: [place] [address] PATHOLOGIST FRAME CARVER SPINDLE HUI NORTH M.D. Performed By: #### C BC, BMP #### [facility] [address] GFR/1.73 sq M.predicted MDRD (S/P/Bld) [Vol rate/Area] mL/min/{1.73_m2} Normal [facility] Comment on above: Performed By: #### C BC, BMP #### [facility] [address] Potassium Normal 3.5-5.1 [facility] Comment on above: Result Comment: Spec imen hemolyzed, redraw requested Performed By: #### C BC, BMP #### [place] [address] [place] Calcium [Mass/volume] in Ser um or PlasmaOrdered By: Ibrahima Chand on 08-01-2023 Calcium [Mass/Vol] 9.2 mg/dL Normal 8.6-10.3 [facility] Comment on above: Performed By: #### C BC, BMP #### [address] Carbon dioxide, total [Moles /volume] in Serum or PlasmaOrdered By: Ibrahima Chand on 08-01-2023 CO2 [Moles/Vol] 25.7 mmol/L Normal 21.0-31.0 [facility] Comment on above: Performed By: #### C BC, BMP #### [place] [address] [place] Chloride [Moles/volume] in S cristi or PlasmaOrdered By: Ibrahima Chand on 08-01-2023 Chloride [Moles/Vol] 106 mmol/L Normal 98-107 [facility] Comment on above: Performed By: #### C BC, BMP #### [address] Complete Blood Count Auto Di ffon 08-01-2023 Mean Corpuscular HGB Conc 32.5 g/dL Normal 32.0-35.0 [facility] Comment on above: Performed By: #### C BC, BMP #### [address] NRBC% 0.1 /100{WBC} Normal 0-0.5 [facility] Comment on above: Performed By: #### C BC, BMP #### [address] Creatinine [Mass/volume] in Serum or PlasmaOrdered By: Ibrahima Chand on 08-01-2023 Creatinine [Mass/Vol] 0.79 mg/dL Normal 0.60-1.20 [facility] Comment on above: Performed By: #### C CARLEEN, BMP #### [address] Erythrocyte distribution wid th [Ratio] by Automated countOrdered By: Ibrahima Chand on 08-01-2023 Erythrocyte distribution width (RBC) [Ratio] 14.7 % Normal 11.9-15.3 [facility] Comment on above: Performed By: #### C CARLEEN, BMP #### [address] Erythrocytes [#/volume] in B lood by Automated countOrdered By: Ibrahima Chand on 08-01-2023 RBC (Bld) [#/Vol] 5.07 10*6/uL High 3.60-5.00 [facility] Comment on above: Performed By: #### C BC, BMP #### [address] Glucose [Mass/volume] in Ser um or PlasmaOrdered By: Ibrahima Chand on 08-01-2023 Glucose [Mass/Vol] 157 mg/dL High 70-100 [facility] Comment on above: ADA recommended refe rence rangeRandom Glucose Reference Range is dependent on time and content of last meal. Glucose of more than 200 mg/dL in a nonstressed, ambulatory subject supports the diagnosis of Diabetes Mellitus. Result Comment: [place] om Glucose Reference Range is dependent on time and content of last meal. Glucose of more than 200 mg/dL in a nonstressed, ambulatory subject supports the diagnosis of Diabetes Mellitus. ADA recommended reference range Performed By: #### C BC, BMP #### [address] Hematocrit [Volume Fraction] of Blood by Automated countOrdered By: Ibrahima Chand on 08-01-2023 Hematocrit (Bld) [Volume fraction] 43.1 % Normal 34.0-46.4 [facility] Comment on above: Performed By: #### C BC, BMP #### [address] Hemoglobin [Mass/volume] in BloodOrdered By: Ibrahima Chand on 08-01-2023 Hemoglobin (Bld) [Mass/Vol] 14.0 g/dL Normal 11.8-15.4 [facility] Comment on above: Performed By: #### C BC, BMP #### [address] Yoan 08-01-2023 L Specimen: Received: 08/01/23 Status: WAN Marie Num: [id number] Spec Type: Surgical Subm Dr: Geraldo García DO Tissues: A Breast Maxb[place] Lymph Node (LT SN) B Breast Lumpectmy/Mass - Requiring Micros Eval of Margins (LT BREAST) Procedures: HE/21, Gross/Micro L5/2, Frozen Section, Froz Sec, Add, E CADHERIN/2, IHC First AB, FS HE/4 Age/ Patient Sex Location Account Attending Physician Melony Manley 58/F [place] [id number] Geraldo García DO SPEC NUM: RECD: 08/01/23 STATUS: WAN MARIE NUM: [id number] MANGO: 08/01/[address]: Geraldo García DO [...] on file) Garfield Gordillo MD 10/10/231730 Specimen: [id number] Received: 08/01/23-1200 Status: WAN Marie Num: [id number] Spec Type: Surgical Subm Dr: Geraldo García, DO Tissues: A Breast [place] Lymph Node (LT SN) B Breast Lumpectmy/Mass - Requiring Micros Eval of Margins (LT BREAST) Procedures: HE/21, Gross/Micro L5/2, Frozen Section, Frosophia Calixto, Add, E CADHERIN/2, IHC First AB, FS HE/4 Patient: Melony Manley [id number] (Continued) Specimen: [id number] Received: 08/01/23 (Continued) Signed (signature on file) Garfield Gordillo MD 08/08/23 173 Specimen: [id number] Received: 08/01/23 Status: WAN Marie Num: [id number] Spec Type: Surgical Subm Dr: Geraldo García, Tissues: A Breast [place] Lymph Node (LT SN) B Breast Lumpectmy/Mass - Requiring Micros Eval of Margins (LT BREAST) Procedures: HE/21, Gross/Micro L5/2, Frozen Section, Paul Sec, Add, E CADHERIN/2, IHC First AB, FS HE/4 Patient: Melony Manley [id number] (Continued) Specimen: [id number] Received: 08/01/23-1200 (Continued) Pathological Diagnosis A. Maxbass node, left axilla, biopsy: Metastatic carcinoma to [...] Examined (sentinel and non-sentinel): 4 Number of Maxbass Nodes Examined: 4 pTNM CLASSIFICATION (AJCC 8th Edition) Specimen: [id number] Received: 08/01/23 Status: WAN Marie Num: [id number] Spec Type: Surgical Subm Dr: Geraldo García, DO Tissues: A Breast [place] Lymph Node (LT SN) B Breast Lumpectmy/Mass - Requiring Micros Eval of Margins (LT BREAST (more content not included)... Normal [facility] Leukocytes [#/volume] correc cori for nucleated erythrocytes in Blood by Automated counOrdered By: Ibrahima Chand on 08-01-2023 WBC corrected for nucl RBC Auto (Bld) [#/Vol] 5.5 10*3/uL 3.8-11.6 [facility] Leukocytes [#/volume] in Blo od by Automated countOrdered By: Ibrahima Chand on 08-01-2023 WBC (Bld) [#/Vol] 5.5 10*3/uL Normal 3.8-11.6 [facility] Comment on above: Performed By: #### C BC, BMP #### [facility] [address] [place] [address] [place] Lymphocytes [#/volume] in Bl ood by Automated countOrdered By: Ibrahima Chand on 08-01-2023 Lymphocytes (Bld) [#/Vol] 1.1 10*3/uL Normal 1.00-4.8 [facility] Comment on above: Performed By: #### C BC, BMP #### [facility] [address] [place] [address] [place] Lymphocytes/100 leukocytes i n Blood by Automated countOrdered By: Ibrahima Chand on 08-01-2023 Lymphocytes/100 WBC (Bld) 19.2 % Normal . [facility] Comment on above: Performed By: #### C BC, BMP #### [facility] [address] [place] [address] [place] MCH [Entitic mass] by Automa croi countOrdered By: Ibrahima Chand on 08-01-2023 MCH (RBC) [Entitic mass] 27.6 pg Normal 24.7-34.3 [facility] Comment on above: Performed By: #### C BC, BMP #### [facility] [address] [place] [id number] [facility] MCHC Auto (RBC) [Mass/Vol]Or dered By: Ibrahima Chand on 08-01-2023 MCHC (RBC) [Mass/Vol] 32.5 g/dL 32.0-35.0 [facility] MCV [Entitic volume] by Auto mated countOrdered By: Ibrahima Chand on 08-01-2023 MCV (RBC) [Entitic vol] 84.9 fL Normal 80-100 [facility] Comment on above: Performed By: #### C BC, BMP #### [facility] [address] [place] [address] MM surgical specimen LTon MM surgical specimen LT [facility] [place] [address] Mammography Report Signed Patient: Melony Manley MR#: [id number] : 1965 Acct:[id number] Age/Sex: 58 / F ADM Date: 08/01/23 Loc: [place] Room: Type: [facility] Attending Dr: Geraldo García DO Copies [...] Sandro Cintron M.D.08/01/2023 1:27 PM Dictation Location: [place] [address] Transcribed By: [facility] 08/01/23 1327 Dictated By: Sandro Cintron DO 08/01/23 1326 Signed By: 08/01/23 1327 Normal [facility] NM sentinel node w imagingon 08-01-2023 NM sentinel node w imaging [facility] [place] [address] Nuclear Medicine Report Signed Patient: Melony Manley MR#: [id number] : 1965 Acct:[id number] Age/Sex: 58 / F ADM Date: 08/01/23 Loc: [place] Room: Type: [facility] Attending Dr: Geraldo García DO Copies to: DO Mateusz Alexandre Jr, DO Ordering Provider: Geraldo García DO Date of Service: 08/01/23 NM/NM sentinel node w imaging: Left Breast Cancer Nuclear medicine Maxbass node lymphoscintigraphy. Reason for exam: Left breast [...] Jamison Jr., D.OBeatriz08/01/2023 1:51 PM Dictation Location: [place] [address] Transcribed By: [facility] 08/01/23 1351 Dictated By: Mateusz Jamison Jr, DO 08/01/23 1350 Signed By: 08/01/23 1351 Normal [facility] Neutrophils [#/volume] in Bl ood by Automated countOrdered By: Ibrahima Chand on 08-01-2023 Neutrophils (Bld) [#/Vol] 4.0 10*3/uL Normal 1.8-7.7 [facility] Comment on above: Performed By: #### C BC, BMP #### [facility] [address] [place] [address] No Panel InformationOrdered By: Ibrahima Chand on 08-01-2023 Estimated GFR (CKD-EPI) > 60.0 mL/Min [facility] Creatinine Clearance (Chem 75.96 [facility] Nucleated erythrocytes [Pres ence] in Blood by Automated countOrdered By: Ibrahima Chand on 08-01-2023 Nucleated RBC Auto Ql (Bld) 0.1 /100{WBC} 0-0.5 [facility] Platelet mean volume [Entiti c volume] in Blood by Automated countOrdered By: Ibrahima Chand on 08-01-2023 Platelet mean volume (Bld) [Entitic vol] 8.3 fL Normal 6.3-10.7 [facility] Comment on above: Performed By: #### C BC, BMP #### [address] Platelets [#/volume] in Bloo d by Automated countOrdered By: Ibrahima Chand on 08-01-2023 Platelets (Bld) [#/Vol] 131 10*3/uL Low 150-450 [facility] Comment on above: Performed By: #### C BC, BMP #### [address] Potassium [Moles/volume] in Serum or PlasmaOrdered By: Geraldo García on 08-01-2023 Potassium [Moles/Vol] 4.5 mmol/L Normal 3.5-5.1 [facility] Comment on above: Order Comment: Angelo bryant send a oyster farmer per Christin in Surg Prep. MLG Result Comment: PERF ORMED BY: [place] [address] PATHOLOGIST FRAME CARVER SPINDLE HUI NORTH M.D. Performed By: #### R GREY Cruz #### [address] Serum or plasma anion gap de terminationOrdered By: Ibrahima Chand on 08-01-2023 Anion gap [Moles/Vol] TNP [facility] Comment on above: Test not performed Sodium [Moles/volume] in Ser um or PlasmaOrdered By: Ibrahima Chand on 08-01-2023 Sodium [Moles/Vol] 142 mmol/L Normal 136-145 [facility] Comment on above: Performed By: #### C BC, BMP #### [place] [address] [place] Urea nitrogen [Mass/volume] in Serum or PlasmaOrdered By: Ibrahima Chand on 08-01-2023 Urea nitrogen [Mass/Vol] 9 mg/dL Normal 7-25 [facility] Comment on above: Performed By: #### C BC, BMP #### [facility] [address] [place] [id number] [place] MM needle loc LTon 4 MM needle loc LT [facility] [address] [place] [address] [place] [id number] Mammography Report Signed Patient: Melony Manley MR#: [id number] : 1965 Acct:[id number] Age/Sex: 58 / F ADM Date: 07/24/23 Loc: [place] Room: Type: [facility] Attending Dr: Geraldo García DO Copies to: [...] was placed in mediolateral compression and a fire sprinkler designer view of the inferior left breast was [...] 1248 Signed By: 07/31/23 1253 Normal [facility] Human papilloma virus 16+18+ 31+33+35+39+45+51+52+56+58+59+66+68 DNA [Presence] in Pricila 07-24-2023 HPV 16+18+31+33+35+39+45+51 +52+56+58+59+66+68 DNA Probe+sig amp Ql (Cvx) Negative Negative [facility] Comment on above: This nucleic acid am plification test detects fourteen high-risk HPV types (16,18,31,33,35,39,45,51,52,56,58,59,66,68)without differentiation.Performed at: =G - [facility] [address] [id number] Director: Venus Acevedo MD, Phone: [phone] at: - [facility] [address] [id number] Director: Venus Acevedo MD, Phone: [phone] No Panel Informationon 07-23 HPV High Risk Other Comment Note . [facility] Comment on above: TESTS RESULT FLAG UN ITS REF RANGE LAB -DIAGNOSIS: 02 NEGATIVE FOR INTRAEPITHELIAL LESION OR MALIGNANCY.Specimen adequacy: 02 Satisfactory for evaluation. Endocervical and/or squamous metaplastic cells (endocervical component) are present.Performed by: Mara Corley Finishing Machine Operator Automatic (ASCP). 02Note: Note 02 The Pap smear [...] Low,>-Panic High,A-Abnormal,AA-Critical Abnormal ------Performed at:02 WB [facility] [place] [place] [address] Venus Acevedo MD, Reference Lab Test Patient Age Note . [facility] Comment on above: TESTS RESULT FLAG UN ITS REF RANGE LAB - Clinician Provided Cytology Information Source.............Cervix;Endocervix No. of containers..01 ThinPrep VialAge Irena HERNANDEZ Bailey... 30-65 FLAG LEGEND: L-Low Normal,H-High Normal,LL-Alert Low,HH-Alert High <-Panic Low,>-Panic High,A-Abnormal,AA-Critical Abnormal ------Performed at:01 =G [facility] [place] [address] [place] [address] Venus Acevedo MD, Automated basophil %Ordered By: Geraldo García on 07-19-2023 Basophils/100 WBC (Bld) 0.6 % Normal . [facility] Comment on above: Performed By: #### C CARLEEN, BMP #### [address] Automated basophil countOrde red By: Geraldo García on 07-19-2023 Basophils (Bld) [#/Vol] 0.0 10*3/uL Normal 0.0-0.2 [facility] Comment on above: Result Comment: PERF ORMED BY: [place] [address] PATHOLOGIST FRAME CARVER SPINDLE HUI NORTH M.D. Performed By: #### C CARLEEN, BMP #### [address] Automated blood monocyte cou ntOrdered By: Geraldo García on 07-19-2023 Monocytes (Bld) [#/Vol] 0.3 10*3/uL Normal 0.0-0.8 [facility] Comment on above: Performed By: #### C CARLEEN, BMP #### [address] Automated eosinophil %Ordere d By: Geraldo García on 07-19-2023 Eosinophils/100 WBC (Bld) 0.0 % Normal . [facility] Comment on above: Performed By: #### C BC, BMP #### [address] Automated eosinophil countOr dered By: Geraldo García on 07-19-2023 Eosinophils (Bld) [#/Vol] 0.0 10*3/uL Normal 0.0-0.45 [facility] Comment on above: Performed By: #### C BC, BMP #### [address] Automated monocyte %Ordered By: Geraldo García on 07-19-2023 Monocytes/100 WBC (Bld) 6.6 % Normal . [facility] Comment on above: Performed By: #### C BC, BMP #### [address] Automated neutrophil %Ordere d By: Geraldo García on 07-19-2023 Neutrophils/100 WBC (Bld) 77.1 % Normal . [facility] Comment on above: Performed By: #### C BC, BMP #### [address] Basic Metabolic Panelon 07-06 GFR/1.73 sq M.predicted MDRD (S/P/Bld) [Vol rate/Area] mL/min/{1.73_m2} Normal [facility] Comment on above: Performed By: #### C BC, BMP #### [address] Calcium [Mass/volume] in Ser um or PlasmaOrdered By: Geraldo García on 07-19-2023 Calcium [Mass/Vol] 9.5 mg/dL Normal 8.6-10.3 [facility] Comment on above: Result Comment: PERF ORMED BY: [place] [address] PATHOLOGIST FRAME CARVER SPINDLE HUI NORTH M.D. Performed By: #### C BC, BMP #### [place] [address] [place] Carbon dioxide, total [Moles /volume] in Serum or PlasmaOrdered By: Geraldo García on 07-19-2023 CO2 [Moles/Vol] 27.6 mmol/L Normal 21.0-31.0 [facility] Comment on above: Performed By: #### C BC, BMP #### [place] [address] [place] Chloride [Moles/volume] in S cristi or PlasmaOrdered By: Geraldo García on 07-19-2023 Chloride [Moles/Vol] 101 mmol/L Normal 98-107 [facility] Comment on above: Performed By: #### C BC, BMP #### [address] Complete Blood Count Auto Di ffon 07-19-2023 Mean Corpuscular HGB Conc 33.1 g/dL Normal 32.0-35.0 [facility] Comment on above: Performed By: #### C BC, BMP #### [address] NRBC% 0.1 /100{WBC} Normal 0-0.5 [facility] Comment on above: Performed By: #### C BC, BMP #### [address] Creatinine [Mass/volume] in Serum or PlasmaOrdered By: Geraldo García on 07-19-2023 Creatinine [Mass/Vol] 0.90 mg/dL Normal 0.60-1.20 [facility] Comment on above: Performed By: #### C BC, BMP #### [address] Erythrocyte distribution wid th [Ratio] by Automated countOrdered By: Geraldo García on 07-19-2023 Erythrocyte distribution width (RBC) [Ratio] 14.1 % Normal 11.9-15.3 [facility] Comment on above: Performed By: #### C BC, BMP #### [place] [address] [place] Erythrocytes [#/volume] in B lood by Automated countOrdered By: Geraldo García on 07-19-2023 RBC (Bld) [#/Vol] 4.69 10*6/uL Normal 3.60-5.00 [facility] Comment on above: Performed By: #### C BC, BMP #### [address] Glucose [Mass/volume] in Ser um or PlasmaOrdered By: Geraldo García on 07-19-2023 Glucose [Mass/Vol] 333 mg/dL High 70-100 [facility] Comment on above: ADA recommended refe rence rangeRandom Glucose Reference Range is dependent on time and content of last meal. Glucose of more than 200 mg/dL in a nonstressed, ambulatory subject supports the diagnosis of Diabetes Mellitus. Result Comment: [place] om Glucose Reference Range is dependent on time and content of last meal. Glucose of more than 200 mg/dL in a nonstressed, ambulatory subject supports the diagnosis of Diabetes Mellitus. ADA recommended reference range Performed By: #### C CARLEEN, BMP #### [address] Hematocrit [Volume Fraction] of Blood by Automated countOrdered By: Geraldo García on 07-19-2023 Hematocrit (Bld) [Volume fraction] 39.2 % Normal 34.0-46.4 [facility] Comment on above: Performed By: #### C CARLEEN, BMP #### [address] Hemoglobin [Mass/volume] in BloodOrdered By: Geraldo García on 07-19-2023 Hemoglobin (Bld) [Mass/Vol] 13.0 g/dL Normal 11.8-15.4 [facility] Comment on above: Performed By: #### C CARLEEN, BMP #### [place] [address] [place] Leukocytes [#/volume] correc cori for nucleated erythrocytes in Blood by Automated counOrdered By: Geraldo García on 07-19-2023 WBC corrected for nucl RBC Auto (Bld) [#/Vol] 4.8 10*3/uL 3.8-11.6 [facility] Leukocytes [#/volume] in Blo od by Automated countOrdered By: Geraldo García on 07-19-2023 WBC (Bld) [#/Vol] 4.8 10*3/uL Normal 3.8-11.6 [facility] Comment on above: Performed By: #### C CARLEEN, BMP #### [place] [address] [place] Lymphocytes [#/volume] in Bl ood by Automated countOrdered By: Geraldo García on 07-19-2023 Lymphocytes (Bld) [#/Vol] 0.7 10*3/uL Low 1.00-4.8 [facility] Comment on above: Performed By: #### C BC, BMP #### [address] Lymphocytes/100 leukocytes i n Blood by Automated countOrdered By: Geraldo García on 07-19-2023 Lymphocytes/100 WBC (Bld) 15.7 % Normal . [facility] Comment on above: Performed By: #### C BC, BMP #### [address] MCH [Entitic mass] by Automa cori countOrdered By: Geraldo García on 07-19-2023 MCH (RBC) [Entitic mass] 27.7 pg Normal 24.7-34.3 [facility] Comment on above: Performed By: #### C BC, BMP #### [address] MCHC Auto (RBC) [Mass/Vol]Or dered By: Geraldo García on 07-19-2023 MCHC (RBC) [Mass/Vol] 33.1 g/dL 32.0-35.0 [facility] MCV [Entitic volume] by Auto mated countOrdered By: Geraldo García on 07-19-2023 MCV (RBC) [Entitic vol] 83.7 fL Normal 80-100 [facility] Comment on above: Performed By: #### C BC, BMP #### [address] Neutrophils [#/volume] in Bl ood by Automated countOrdered By: Geraldo García on 07-19-2023 Neutrophils (Bld) [#/Vol] 3.7 10*3/uL Normal 1.8-7.7 [facility] Comment on above: Performed By: #### C BC, BMP #### [facility] [address] No Panel InformationOrdered By: Geraldo García on 07-19-2023 Estimated GFR (CKD-EPI) > 60.0 mL/Min [facility] Creatinine Clearance (Chem N/A [facility] Nucleated erythrocytes [Pres ence] in Blood by Automated countOrdered By: Geraldo García on 07-19-2023 Nucleated RBC Auto Ql (Bld) 0.1 /100{WBC} 0-0.5 [facility] Platelet mean volume [Entiti c volume] in Blood by Automated countOrdered By: Geraldo García on 07-19-2023 Platelet mean volume (Bld) [Entitic vol] 8.4 fL Normal 6.3-10.7 [facility] Comment on above: Performed By: #### C CARLEEN, BMP #### [address] Platelets [#/volume] in Bloo d by Automated countOrdered By: Geraldo García on 07-19-2023 Platelets (Bld) [#/Vol] 127 10*3/uL Low 150-450 [facility] Comment on above: Performed By: #### C CARLEEN, BMP #### [address] Potassium [Moles/volume] in Serum or PlasmaOrdered By: Geraldo García on 07-19-2023 Potassium [Moles/Vol] 3.8 mmol/L Normal 3.5-5.1 [facility] Comment on above: Performed By: #### C BC, BMP #### [address] Serum or plasma anion gap de terminationOrdered By: Geraldo García on 07-19-2023 Anion gap [Moles/Vol] 12.2 mmol/L Normal 6.0-15.0 [facility] Comment on above: Performed By: #### C BC, BMP #### [address] Sodium [Moles/volume] in Ser um or PlasmaOrdered By: Geraldo García on 07-19-2023 Sodium [Moles/Vol] 137 mmol/L Normal 136-145 [facility] Comment on above: Performed By: #### C BC, BMP #### [facility] [address] [place] [address] [facility] Urea nitrogen [Mass/volume] in Serum or PlasmaOrdered By: Geraldo García on 07-19-2023 Urea nitrogen [Mass/Vol] 12 mg/dL Normal 7-25 [facility] Comment on above: Performed By: #### C BC, BMP #### [facility] [address] [place] [place] [id number] [facility] US breast LT limitedon 07-11 US breast LT limited [facility] Main [place] [address] [place] [address] Ultrasound Report Signed Patient: Melony Manlye MR#: [id number] : 1965 Acct:[id number] Age/Sex: 58 / F ADM Date: 07/12/23 Loc: [facility] Room: Type: [facility] Attending Dr: Geraldo García DO Ordering [...] Althea Tobar M.D.07/12/2023 2:30 PM Dictation Location: [facility] Tech: Sheyla William Transcribed By: JONA 07/12/23 1430 Dictated By: Althea Tobar MD 07/12/23 1418 Signed By: 07/12/23 1430 Normal [facility] MRI BREAST BILATERAL W WO [...] Anthony Pichardo MD 06/30/23 Final result Normal [facility] Basophils Auto (Bld) [#/Vol] Ordered By: Geraldo García on 05-02-2023 Basophils (Bld) [#/Vol] 0.0 10*3/uL 0.0-0.2 [facility] Basophils/100 WBC Auto (Bld) Ordered By: Geraldo García on 05-02-2023 Basophils/100 WBC (Bld) 0.5 % . [facility] Calcium [Mass/volume] in Ser um or PlasmaOrdered By: Geraldo García on 05-02-2023 Calcium [Mass/Vol] 9.8 mg/dL 8.6-10.3 [facility] Carbon dioxide, total [Moles /volume] in Serum or PlasmaOrdered By: Geraldo García on 05-02-2023 CO2 [Moles/Vol] 26.0 mmol/L 21.0-31.0 [facility] Chloride [Moles/volume] in S cristi or PlasmaOrdered By: Geraldo García on 05-02-2023 Chloride [Moles/Vol] 107 mmol/L 98-107 [facility] Creatinine [Mass/volume] in Serum or PlasmaOrdered By: Geraldo García on 05-02-2023 Creatinine [Mass/Vol] 0.93 mg/dL 0.60-1.20 [facility] Eosinophils Auto (Bld) [#/Vo l]Ordered By: Geraldo García on 05-02-2023 Eosinophils (Bld) [#/Vol] 0.0 10*3/uL 0.0-0.45 [facility] Eosinophils/100 WBC Auto (Bl d)Ordered By: Geraldo García on 05-02-2023 Eosinophils/100 WBC (Bld) 0.0 % . [facility] Erythrocyte distribution wid th Auto (RBC) [Ratio]Ordered By: Geraldo García on 05-02-2023 Erythrocyte distribution width (RBC) [Ratio] 14.0 % 11.9-15.3 [facility] Glucose [Mass/volume] in Ser um or PlasmaOrdered By: Geraldo García on 05-02-2023 Glucose [Mass/Vol] 147 mg/dL 70-100 [facility] Comment on above: ADA recommended refe rence rangeRandom Glucose Reference Range is dependent on time and content of last meal. Glucose of more than 200 mg/dL in a nonstressed, ambulatory subject supports the diagnosis of Diabetes Mellitus. Hematocrit Auto (Bld) [Volum e fraction]Ordered By: Geraldo García on 05-02-2023 Hematocrit (Bld) [Volume fraction] 38.9 % 34.0-46.4 [facility] Hemoglobin [Mass/volume] in BloodOrdered By: Geraldo García on 05-02-2023 Hemoglobin (Bld) [Mass/Vol] 12.9 g/dL 11.8-15.4 [facility] Leukocytes [#/volume] correc cori for nucleated erythrocytes in Blood by Automated counOrdered By: Geraldo García on 05-02-2023 WBC corrected for nucl RBC Auto (Bld) [#/Vol] 5.7 10*3/uL 3.8-11.6 [facility] Lymphocytes Auto (Bld) [#/Vo l]Ordered By: Geraldo García on 05-02-2023 Lymphocytes (Bld) [#/Vol] 1.2 10*3/uL 1.00-4.8 [facility] Lymphocytes/100 WBC Auto (Bl d)Ordered By: Geraldo García on 05-02-2023 Lymphocytes/100 WBC (Bld) 21.5 % . [facility] MCH Auto (RBC) [Entitic mass ]Ordered By: Geraldo García on 05-02-2023 MCH (RBC) [Entitic mass] 28.4 pg 24.7-34.3 [facility] MCHC Auto (RBC) [Mass/Vol]Or dered By: Geraldo García on 05-02-2023 MCHC (RBC) [Mass/Vol] 33.1 g/dL 32.0-35.0 [facility] MCV Auto (RBC) [Entitic vol] Ordered By: Geraldo García on 05-02-2023 MCV (RBC) [Entitic vol] 85.8 fL 80-100 [facility] Monocytes Auto (Bld) [#/Vol] Ordered By: Geraldo García on 05-02-2023 Monocytes (Bld) [#/Vol] 0.4 10*3/uL 0.0-0.8 [facility] Monocytes/100 WBC Auto (Bld) Ordered By: Geraldo Garíca on 05-02-2023 Monocytes/100 WBC (Bld) 6.5 % . [facility] Neutrophils Auto (Bld) [#/Vo l]Ordered By: Geraldo García on 05-02-2023 Neutrophils (Bld) [#/Vol] 4.0 10*3/uL 1.8-7.7 [facility] Neutrophils/100 WBC Auto (Bl d)Ordered By: Geraldo García on 05-02-2023 Neutrophils/100 WBC (Bld) 71.5 % . [facility] No Panel InformationOrdered By: Geraldo García on 05-02-2023 Estimated GFR (CKD-EPI) > 60.0 mL/Min [facility] Creatinine Clearance (Chem N/A [facility] Nucleated erythrocytes [Pres ence] in Blood by Automated countOrdered By: Geraldo García on 05-02-2023 Nucleated RBC Auto Ql (Bld) 0.0 /100{WBC} 0-0.5 [facility] Platelet mean volume Auto (B ld) [Entitic vol]Ordered By: Geraldo García on 05-02-2023 Platelet mean volume (Bld) [Entitic vol] 7.9 fL 6.3-10.7 [facility] Platelets Auto (Bld) [#/Vol] Ordered By: Geraldo García on 05-02-2023 Platelets (Bld) [#/Vol] 146 10*3/uL 150-450 [facility] Potassium [Moles/volume] in Serum or PlasmaOrdered By: Geraldo García on 05-02-2023 Potassium [Moles/Vol] 4.2 mmol/L 3.5-5.1 [facility] RBC Auto (Bld) [#/Vol]Ordere d By: Geraldo García on 05-02-2023 RBC (Bld) [#/Vol] 4.53 10*6/uL 3.60-5.00 [facility] Serum or plasma anion gap de terminationOrdered By: Geraldo García on 05-02-2023 Anion gap [Moles/Vol] 13.2 mmol/L 6.0-15.0 [facility] Sodium [Moles/volume] in Ser um or PlasmaOrdered By: Geraldo García on 05-02-2023 Sodium [Moles/Vol] 142 mmol/L 136-145 [facility] Urea nitrogen [Mass/volume] in Serum or PlasmaOrdered By: Geraldo García on 05-02-2023 Urea nitrogen [Mass/Vol] 12 mg/dL 7-25 [facility] WBC Auto (Bld) [#/Vol]Ordere d By: Geraldo García on 05-02-2023 WBC (Bld) [#/Vol] 5.7 10*3/uL 3.8-11.6 [facility] MG MAMM LT DIAG FUon 023 MG MAMM LT DIAG FU Patient: MELONY MANLEY Exam Date: 08/26/2022 : 1965 Gender:F Ordering : DR LITTLE STAFFORD . Admission #: [id number] Family : Order #: [id number] CLICK HERE TO VIEW EXAM RADIOLOGY REPORT PROCEDURE: MAMMOGRAM LEFT DIAGNOSTIC DIGITAL FOLLOW UP, 08/26/2022, 13:41 ULTRASOUND BREAST LEFT LIMITED, 08/26/2022, 14:06 COMPARISON: MG MAMM SCREEN 3D SOLITARIO CAD, 08/01/2022. INDICATIONS: Abnormal findings on diagnostic imaging of breast Calculator Name [facility] Breast Cancer Risk Assessment Tool 5 Year Breast Cancer Risk 1.10% Lifetime Breast Cancer Risk 6.30% Personal Breast Cancer No Personal Ovarian Cancer No Treatments None Family Cancers Mother with stomach cancer at age 55. LOCATION: [facility] BREAST COMPOSITION: Heterogeneously dense,which may [...] M.D. on 08/26/2022 at 14:39 Normal [facility] US BREAST LEFT LIMITEDon US BREAST LEFT LIMITED Patient: MELONY MANLEY Exam Date: 08/26/2022 : 1965 Gender:F Ordering : DR LITTLE STAFFORD . Admission #: [id number] Family : Order #: [id number] CLICK HERE TO VIEW EXAM RADIOLOGY REPORT [...] stomach cancer at age 54. LOCATION: [facility] BREAST COMPOSITION: Heterogeneously dense,which may [...] M.D. on 08/26/2022 at 14:39 Normal [facility] MAMM SCREEN 3D SOLITARIO CADon 08-01-2022 MG MAMM SCREEN 3D SOLITARIO CAD Patient: MELONY MANLEY Exam Date: 08/01/2022 : 1965 Gender:F Ordering : DR LITTLE STAFFORD . Admission #: [id number] Family : Order #: [id number] CLICK HERE TO VIEW EXAM RADIOLOGY REPORT [...] stomach cancer at age 54. LOCATION: [facility] BREAST COMPOSITION: Heterogeneously dense,which may [...] Neumann M.D. on 08/01/2022 at 12:26 Normal [facility] XR DEXA BONE DENSITYon 08-01 XR [...] by: THEA NEUMANN Date: 2022-08-01 11:39 Normal [facility] PAP ACOG PANEL 2: 30 to 65on 07-26-2022 . . Normal [facility] Comment on above: Result Comment: Perf ormed at: WB Performed By: #### [id number] #### [facility] [address] [address] [address] Devon Gillette Age Gdln ACOG Testing 30-65 Normal [facility] Comment on above: Performed By: #### [id number] #### [facility] [address] [address] [address] Devon Gillette DIAGNOSIS: Comment Normal [facility] Comment on above: Result Comment: NEGA TIVE FOR INTRAEPITHELIAL LESION OR MALIGNANCY. Performed at: WB Performed By: #### [id number] #### [facility] [address] [place] [address] Dr. Devon Gillette HPV Aptima Negative Normal Negative [facility] Comment on above: Result Comment: This nucleic acid amplification test detects fourteen high-risk HPV types (16,18,31,33,35,39,45,51,52,56,58,59,66,68) without differentiation. Performed at: =G Performed By: #### [id number] #### [facility] [address] [place] [address] Dr. Devon Gillette HPV Genotype Reflex Comment Normal [facility] Comment on above: Result Comment: Crit eria not met, HPV Genotype not performed. Performed at: WB Performed By: #### [id number] #### [facility] [address] [place] [address] Dr. Devon Gillette Methodology: Comment Normal [facility] Comment on above: Result Comment: This liquid based ThinPrep(R) pap test was screened with the use of an image guided system. Performed at: WB Performed By: #### [id number] #### [facility] [address] [place] [address] Dr. Devon Gillette Note: Comment Normal [facility] Comment on above: Result Comment: The Pap smear is a screening test designed to aid in the detection of premalignant and malignant conditions of the uterine cervix. It is not a diagnostic procedure and should not be used as the sole means of detecting cervical cancer. Both false-positive and false-negative reports do occur. . Performed at: WB Performed By: #### [id number] #### [facility] [address] [place] [address] Dr. Devon Gillette Performed by: Comment Normal [facility] Comment on above: Result Comment: Anjelica Girard, Finishing Machine Operator Automatic (ASCP) Performed at: WB Performed By: #### [id number] #### [facility] [address] [place] [address] Dr. Devon Gillette Specimen adequacy: Comment Normal [facility] Comment on above: Result Comment: Sati sfactory for evaluation. Endocervical and/or squamous metaplastic cells (endocervical component) are present. Performed at: WB Performed By: #### [id number] #### [facility] [address] [place] [address] Dr. Devon Gillette VAGINITIS/VAGINOSIS DNA PROB Jim 07-20-2022 Anni species Negative Normal Negative [facility] Comment on above: Performed By: #### V AGINT #### [facility] [address] [place] [address] Dr. Devon Gillette Gardnerella vaginalis Positive Abnormal Negative [facility] Comment on above: Performed By: #### V AGINT #### [facility] [address] [place] [address] Dr. Devon Gillette Trichomonas vaginalis Negative Normal Negative [facility] Comment on above: Performed By: #### V AGINT #### [facility] [address] [place] [address] Dr. Devon Gillette CULTURE URINEon 04-21-2022 CULTURE URINE Culture Observations : LIGHT GROWTH OF MIXED GENITAL LAZARO. NO POTENTIAL PATHOGENS SEEN. Normal [facility] Comment on above: Performed By: #### G FRANKIE, TSH, LIPID, CREA #### [facility] [address] [place] [address] Dr. Devon Gillette LITHIUMon 04-15-2022 [place] (Eskalith(R)), Serum 0.6 mmol/L Normal 0.5-1.2 [facility] Comment on above: Result Comment: A co ncentration of 0.5-0.8 mmol/L is advised for long-term use; concentrations of up to 1.2 mmol/L may be necessary during acute treatment. Detection Limit = 0.1 <0.1 indicates None Detected Performed By: #### G FRANKIE, TSH, LIPID, CREA #### [facility] [address] [place] [address] Dr. Devon Gillette CREATININEon 04-14-2022 Creatinine [Mass/Vol] 0.89 mg/dL Normal 0.55-1.02 [facility] Comment on above: Performed By: #### G FRANKIE, TSH, LIPID, CREA #### [facility] [address] [address] [address] Devon Gillette EGFR-AF CANADIAN >60 Normal >=60 [facility] Comment on above: Performed By: #### G FRANKIE, TSH, LIPID, CREA #### [facility] [address] [address] [address] Devon Gillette EGFR-NON AF CANADIAN >60 Normal >=60 [facility] Comment on above: Performed By: #### G FRANKIE, TSH, LIPID, CREA #### [facility] [address] [address] [address] Devon Gillette GLUCOSE BLOODon 04-14-2022 Glucose [Mass/Vol] 118 mg/dL Critically high 74-106 [facility] Comment on above: Performed By: #### G FRANKIE, TSH, LIPID, CREA #### [facility] [address] [address] [address] Devon Gillette LIPID PROFILEon 04-14-2022 CHOL-HDL RATIO NORM SEE BELOW Normal [facility] Comment on above: Result Comment: 3.3 - 4.4 LOW RISK 4.4 - 7.1 AVERAGE RISK 7.1 - 11.0 MODERATE RISK >11.0 HIGH RISK Performed By: #### G FRANKIE, TSH, LIPID, CREA #### [facility] [address] [address] [address] Devon Gillette Cholesterol [Mass/Vol] 128 mg/dL Normal <=200 [facility] Comment on above: Performed By: #### G FRANKIE, TSH, LIPID, CREA #### [facility] [address] [address] [address] Devon Gillette Cholesterol in HDL [Mass/Vol] 47 mg/dL Normal 40-60 [facility] Comment on above: Performed By: #### G FRANKIE, TSH, LIPID, CREA #### [facility] [address] [address] [address] Devon Gillette Cholesterol in LDL [Mass/Vol] 34.6 mg/dL Normal [facility] Comment on above: Performed By: #### G FRANKIE, TSH, LIPID, CREA #### [facility] [address] [address] [address] Devon Gillette Cholesterol.total/Juanita sterol in HDL [Mass ratio] 2.7 {ratio} Normal [facility] Comment on above: Performed By: #### G FRANKIE, TSH, LIPID, CREA #### [facility] [address] [address] [address] Devon Gillette HDL NORMAL > or = 60 mg/dl - LO W CARDIOVASCULAR RISK <40 mg/dl - HIGH CARDIOVASCULAR RISK Normal [facility] Comment on above: Performed By: #### G FRANKIE, TSH, LIPID, CREA #### [facility] [address] [address] [address] Devon Gillette LDL CALC NORMAL SEE BELOW Normal [facility] Comment on above: Result Comment: <100 mg/dl OPTIMAL 100 - 129 mg/dl NEAR OR ABOVE OPTIMAL 130 - 159 mg/dl BORDERLINE HIGH 160 - 189 mg/dl HIGH >190 mg/dl VERY HIGH Performed By: #### G FRANKIE, TSH, LIPID, CREA #### [facility] [address] [address] [address] Devon Gillette Triglyceride [Mass/Vol] 232 mg/dL Critically high <=150 [facility] Comment on above: Performed By: #### G FRANKIE, TSH, LIPID, CREA #### [facility] [address] [address] [address] Devon Gillette VLDL CALC 46.4 mg/dL Normal [facility] Comment on above: Performed By: #### G FRANKIE, TSH, LIPID, CREA #### [facility] [address] [address] [address] Devon Gillette TSHon 04-14-2022 TSH 0.375 uIU/mL Normal 0.358-3.740 [facility] Comment on above: Performed By: #### G FRANKIE, TSH, LIPID, CREA #### [facility] [address] [address] [address] Devon Gillette CULTURE URINEon 03-30-2022 CULTURE [...] F Trimethoprim/Sulfametho xazole <=20 S F Normal [facility] Comment on above: Performed By: #### U RCX #### [facility] [address] [place] [address] Dr. Devon Gillette LITHIUMon 12-28-2021 [place] (Eskalith(R)), Serum 0.7 mmol/L Normal 0.5-1.2 [facility] Comment on above: Result Comment: Plas ma concentration of 0.5 - 0.8 mmol/L are advised for long-term use; concentrations of up to 1.2 mmol/L may be necessary during acute treatment. Detection Limit = 0.1 <0.1 indicates None Detected Performed By: #### G FRANKIE, TSH, LIPID, CREA #### [facility] [address] [place] [address] Dr. Devon Gillette CREATININEon 12-27-2021 Creatinine [Mass/Vol] 1.10 mg/dL Critically high 0.55-1.02 [facility] Comment on above: Performed By: #### G FRANKIE, TSH, LIPID, CREA #### [facility] [address] [place] [address] Dr. Devon Gillette EGFR-AF CANADIAN >60 Normal >=60 [facility] Comment on above: Performed By: #### G FRANKIE, TSH, LIPID, CREA #### [facility] [address] [place] [address] Dr. Devon Gillette EGFR-NON AF CANADIAN 51 mL/min/1.73m2 Critically low >=60 [facility] Comment on above: Performed By: #### G FRANKIE, TSH, LIPID, CREA #### [facility] [address] [address] [address] Devon Gillette DIRECT LDLon 12-27-2021 Cholesterol in LDL [Mass/Vol] 133 mg/dL Normal [facility] Comment on above: Performed By: #### G FRANKIE, TSH, LIPID, CREA #### [facility] [address] [address] [address] Devon Gillette DLDL NORMAL SEE BELOW Normal [facility] Comment on above: Result Comment: <100 mg/dl OPTIMAL 100 - 129 mg/dl NEAR OR ABOVE OPTIMAL 130 - 159 mg/dl BORDERLINE HIGH 160 - 189 mg/dl HIGH >190 mg/dl VERY HIGH Performed By: #### G FRANKIE, TSH, LIPID, CREA #### [facility] [address] [place] [address] Dr. Devon Gillette GLUCOSE BLOODon 12-27-2021 Glucose [Mass/Vol] 151 mg/dL Critically high 74-106 [facility] Comment on above: Performed By: #### G FRANKIE, TSH, LIPID, CREA #### [facility] [address] [place] [address] Dr. Devon Gillette LIPID PROFILEon 12-27-2021 CHOL-HDL RATIO NORM SEE BELOW Normal [facility] Comment on above: Result Comment: 3.3 - 4.4 LOW RISK 4.4 - 7.1 AVERAGE RISK 7.1 - 11.0 MODERATE RISK >11.0 HIGH RISK Performed By: #### G FRANKIE, TSH, LIPID, CREA #### [facility] [address] [place] [address] Dr. Devon Gillette Cholesterol [Mass/Vol] 244 mg/dL Critically high <=200 [facility] Comment on above: Performed By: #### G FRANKIE, TSH, LIPID, CREA #### [facility] [address] [place] [address] Dr. Devon Gillette Cholesterol in HDL [Mass/Vol] 33 mg/dL Critically low 40-60 [facility] Comment on above: Performed By: #### G FRANKIE, TSH, LIPID, CREA #### [facility] [address] [address] [address] Devon Gillette Cholesterol.total/Juanita sterol in HDL [Mass ratio] 7.4 {ratio} Normal [facility] Comment on above: Performed By: #### G FRANKIE, TSH, LIPID, CREA #### [facility] [address] [place], [place] [address] Dr. Devon Gillette HDL NORMAL > or = 60 mg/dl - LO W CARDIOVASCULAR RISK <40 mg/dl - HIGH CARDIOVASCULAR RISK Normal [facility] Comment on above: Performed By: #### G FRANKIE, TSH, LIPID, CREA #### [facility] [address] [address] [address] Devon Gillette Triglyceride [Mass/Vol] 431 mg/dL Critically high <=150 [facility] Comment on above: Performed By: #### G FRANKIE, TSH, LIPID, CREA #### [facility] [address] [address] [address] Devon Gillette Vital Signs Date Time Vital Sign Value Performing Clinician Facility 06-11-2024 08:44-0500 Body height 162.56 cm Susan Ayala MD Work Phone: [facility] 06-11-2024 08:44-0500 Body mass index (BMI) [Ratio] 27.1 kg/m2 Susan Ayala MD Work Phone: [facility] 06-11-2024 08:44-0500 Body weight 71.66 kg Susan Ayala MD Work Phone: [facility] 06-11-2024 08:44-0500 Diastolic blood pressure 66 mm[Hg] Susan Ayala MD Work Phone: [facility] 06-11-2024 08:44-0500 Heart rate 66 /min Susan Ayala MD Work Phone: [facility] 06-11-2024 08:44-0500 Systolic blood pressure 102 mm[Hg] Susan Ayala MD Work Phone: [facility] 05-24-2024 13:26-0500 Body height 162.56 cm Susan Ayala MD Work Phone: [facility] 05-24-2024 13:26-0500 Body mass index (BMI) [Ratio] 27.4 kg/m2 Susan Ayala MD Work Phone: [facility] 05-24-2024 13:26-0500 Body weight 72.57 kg Susan Ayala MD Work Phone: [facility] 05-24-2024 13:26-0500 Diastolic blood pressure 84 mm[Hg] Susan Ayala MD Work Phone: [facility] 05-24-2024 13:26-0500 Heart rate 109 /min Susan Ayala MD Work Phone: [facility] 05-24-2024 13:26-0500 Systolic blood pressure 128 mm[Hg] Susan Ayala MD Work Phone: [facility] 05-23-2024 11:45-0500 Body height 162.56 cm Susan Ayala MD Work Phone: [facility] 05-23-2024 11:45-0500 Body mass index (BMI) [Ratio] 27.3 kg/m2 Susan Ayala MD Work Phone: [facility] 05-23-2024 11:45-0500 Body temperature 97.6 [degF] Susan Ayala MD Work Phone: [facility] 05-23-2024 11:45-0500 Body weight 72.12 kg Susan Ayala MD Work Phone: [facility] 05-23-2024 11:45-0500 Diastolic blood pressure 83 mm[Hg] Susan Ayala MD Work Phone: [facility] 05-23-2024 11:45-0500 Heart rate 103 /min Susan Ayala MD Work Phone: [facility] 05-23-2024 11:45-0500 Respiratory rate 20 /min Susan Ayala MD Work Phone: [facility] 05-23-2024 11:45-0500 SaO2% (BldA) [Mass fraction] 99 % Susan Ayala MD Work Phone: [facility] 05-23-2024 11:45-0500 Systolic blood pressure 149 mm[Hg] Susan Ayala MD Work Phone: [facility] 05-17-2024 11:14-0500 Body height 162.56 cm Susan Ayala MD Work Phone: [facility] 05-17-2024 11:14-0500 Body mass index (BMI) [Ratio] 27.1 kg/m2 Susan Ayala MD Work Phone: [facility] 05-17-2024 11:14-0500 Body temperature 98.9 [degF] Susan Ayala MD Work Phone: [facility] 05-17-2024 11:14-0500 Body weight 71.66 kg Susan Ayala MD Work Phone: [facility] 05-17-2024 11:14-0500 Diastolic blood pressure 85 mm[Hg] Susan Ayaal MD Work Phone: [facility] 05-17-2024 11:14-0500 Heart rate 93 /min Susan Ayala MD Work Phone: [facility] 05-17-2024 11:14-0500 SaO2% (BldA) [Mass fraction] 99 % Susan Ayala MD Work Phone: [facility] 05-17-2024 11:14-0500 Systolic blood pressure 144 mm[Hg] Susan Ayala MD Work Phone: [facility] 04-10-2024 12:50-0500 Body height 162.6 cm Mabel Oscar MD Work Phone: [facility] 04-10-2024 12:50-0500 Diastolic blood pressure 78 mm[Hg] Mabel Oscar MD Work Phone: [facility] 04-10-2024 12:50-0500 Systolic blood pressure 150 mm[Hg] Mabel Oscar MD Work Phone: [facility] 03-25-2024 14:49-0500 Body height 1950.72 cm Susan Ayala MD Work Phone: [facility] 03-25-2024 14:49-0500 Body mass index (BMI) [Ratio] 0.1 kg/m2 Susan Ayala MD Work Phone: [facility] 03-25-2024 14:49-0500 Body weight 70.76 kg Susan Ayala MD Work Phone: [facility] 03-25-2024 14:49-0500 Diastolic blood pressure 77 mm[Hg] Susan Ayala MD Work Phone: [facility] 03-25-2024 14:49-0500 Heart rate 87 /min Susan Ayala MD Work Phone: [facility] 03-25-2024 14:49-0500 Systolic blood pressure 133 mm[Hg] Susan Ayala MD Work Phone: [facility] 03-22-2024 10:31-0500 Body height 162.56 cm Susan Ayala MD Work Phone: [facility] 03-22-2024 10:31-0500 Body mass index (BMI) [Ratio] 26.7 kg/m2 Susan Ayala MD Work Phone: [facility] 03-22-2024 10:31-0500 Body temperature 97.9 [degF] Susan Ayala MD Work Phone: [facility] 03-22-2024 10:31-0500 Body weight 70.76 kg Susan Ayala MD Work Phone: [facility] 03-22-2024 10:31-0500 Diastolic blood pressure 85 mm[Hg] Susan Ayala MD Work Phone: [facility] 03-22-2024 10:31-0500 Heart rate 91 /min Susan Ayala MD Work Phone: [facility] 03-22-2024 10:31-0500 Respiratory rate 16 /min Susan Ayala MD Work Phone: [facility] 03-22-2024 10:31-0500 SaO2% (BldA) [Mass fraction] 99 % Susan Ayala MD Work Phone: [facility] 03-22-2024 10:31-0500 Systolic blood pressure 129 mm[Hg] Susan Ayala MD Work Phone: [facility] 03-16-2024 09:13-0500 Body height 162.56 cm Susan Ayala MD Work Phone: [facility] 03-16-2024 09:13-0500 Body mass index (BMI) [Ratio] 27.3 kg/m2 Susan Ayala MD Work Phone: [facility] 03-16-2024 09:13-0500 Body temperature 98.5 [degF] Susan Ayala MD Work Phone: [facility] 03-16-2024 09:13-0500 Body weight 72.12 kg Susan Ayala MD Work Phone: [facility] 03-16-2024 09:13-0500 Diastolic blood pressure 77 mm[Hg] Susan Ayala MD Work Phone: [facility] 03-16-2024 09:13-0500 Heart rate 94 /min Susan Ayala MD Work Phone: [facility] 03-16-2024 09:13-0500 Respiratory rate 16 /min Susan Ayala MD Work Phone: [facility] 03-16-2024 09:13-0500 SaO2% (BldA) [Mass fraction] 97 % Susan Ayala MD Work Phone: [facility] 03-16-2024 09:13-0500 Systolic blood pressure 123 mm[Hg] Susan Ayala MD Work Phone: [facility] 03-07-2024 13:23-0400 Body height 162.6 cm Gilson Portillo DPM Work Phone: [facility] 03-07-2024 13:23-0400 Body mass index (BMI) [Ratio] 28.15 kg/m2 Gilson Portillo DPM Work Phone: [facility] 03-07-2024 13:23-0400 Body weight 74.39 kg Gilson Portillo DPM Work Phone: [facility] 03-07-2024 13:23-0400 Heart rate 81 /min Gilson Portillo DPM Work Phone: [facility] 02-20-2024 08:130400 Body height 162.56 cm MD Susan Ayala Work Phone: [facility] 02-20-2024 08:13-0400 Body mass index (BMI) [Ratio] 27.1 kg/m2 MD Susan Ayala Work Phone: [facility] 02-20-2024 08:13-0400 Body weight 71.78 kg MD Susan Ayala Work Phone: [facility] 02-20-2024 08:13-0400 Diastolic blood pressure 62 mm[Hg] MD Susan Ayala Work Phone: [facility] 02-20-2024 08:13-0400 Heart rate 89 /min MD Susan Ayala Work Phone: [facility] 02-20-2024 08:13-0400 Respiratory rate 16 /min MD Susan Ayala Work Phone: [facility] 02-20-2024 08:13-0400 SaO2% (BldA) [Mass fraction] 97 % MD Susan Ayala Work Phone: [facility] 02-20-2024 08:13-0400 Systolic blood pressure 126 mm[Hg] MD Susan Ayala Work Phone: [facility] 02-15-2024 13:01-0400 Body height 162.56 cm MD Susan Ayala Work Phone: [facility] 02-15-2024 13:01-0400 Body mass index (BMI) [Ratio] 27.3 kg/m2 MD Susan Ayala Work Phone: [facility] 02-15-2024 13:01-0400 Body temperature 98.2 [degF] MD Susan Ayala Work Phone: [facility] 02-15-2024 13:01-0400 Body weight 72.12 kg MD Susan Ayala Work Phone: [facility] 02-15-2024 13:01-0400 Diastolic blood pressure 78 mm[Hg] MD Susan Ayala Work Phone: [facility] 02-15-2024 13:01-0400 Heart rate 82 /min MD Susan Ayala Work Phone: [facility] 02-15-2024 13:01-0400 Respiratory rate 20 /min MD Susan Ayala Work Phone: [facility] 02-15-2024 13:01-0400 SaO2% (BldA) [Mass fraction] 100 % MD Susan Ayala Work Phone: [facility] 02-15-2024 13:01-0400 Systolic blood pressure 127 mm[Hg] MD Susan Ayala Work Phone: [facility] 01-03-2024 13:56-0400 Body temperature 99.1 [degF] MD Susan Ayala Work Phone: [facility] 01-03-2024 13:56-0400 Body weight 72.12 kg MD Susan Ayala Work Phone: [facility] 01-03-2024 13:56-0400 Diastolic blood pressure 77 mm[Hg] MD Susan Ayala Work Phone: [facility] 01-03-2024 13:56-0400 Heart rate 107 /min MD Susan Ayala Work Phone: [facility] 01-03-2024 13:56-0400 Respiratory rate 16 /min MD Susan yAala Work Phone: [facility] 01-03-2024 13:56-0400 SaO2% (BldA) [Mass fraction] 98 % MD Susan Ayala Work Phone: [facility] 01-03-2024 13:56-0400 Systolic blood pressure 147 mm[Hg] MD Susan Ayala Work Phone: [facility] 12-28-2023 13:13-0400 Body height 162.6 cm Gilson Portillo DPM Work Phone: [facility] 12-28-2023 13:13-0400 Body mass index (BMI) [Ratio] 28.15 kg/m2 Gilson Portillo DPM Work Phone: [facility] 12-28-2023 13:13-0400 Body weight 74.39 kg Gilson Brown DPM Work Phone: [facility] 12-28-2023 13:13-0400 Diastolic blood pressure 80 mm[Hg] Gilson Portillo DPM Work Phone: [facility] 12-28-2023 13:13-0400 Heart rate 89 /min Gilson Portillo DPM Work Phone: [facility] 12-28-2023 13:13-0400 Systolic blood pressure 130 mm[Hg] Gilson Portillo DPM Work Phone: [facility] 12-21-2023 09:56-0400 Body height 162.56 cm MD Susan Ayala Work Phone: [facility] 12-21-2023 09:56-0400 Body mass index (BMI) [Ratio] 27.1 kg/m2 MD Susan Ayala Work Phone: [facility] 12-21-2023 09:56-0400 Body temperature 97.9 [degF] MD Susan Ayala Work Phone: [facility] 12-21-2023 09:56-0400 Body weight 71.66 kg MD Susan Ayala Work Phone: [facility] 12-21-2023 09:56-0400 Diastolic blood pressure 81 mm[Hg] MD Susan Ayala Work Phone: [facility] 12-21-2023 09:56-0400 Heart rate 95 /min MD Susan Ayala Work Phone: [facility] 12-21-2023 09:56-0400 Respiratory rate 20 /min MD Susan Ayala Work Phone: [facility] 12-21-2023 09:56-0400 SaO2% (BldA) [Mass fraction] 100 % MD Susan Ayala Work Phone: [facility] 12-21-2023 09:56-0400 Systolic blood pressure 136 mm[Hg] MD Susan Ayala Work Phone: [facility] 12-05-2023 09:05-0400 Diastolic blood pressure 82 mm[Hg] MD Susan Ayala Work Phone: [facility] 12-05-2023 09:05-0400 Heart rate 66 /min MD Susan Ayala Work Phone: [facility] 12-05-2023 09:05-0400 Respiratory rate 20 /min MD Susan Ayala Work Phone: [facility] 12-05-2023 09:05-0400 SaO2% (BldA) [Mass fraction] 100 % MD Susan Ayala Work Phone: [facility] 12-05-2023 09:05-0400 Systolic blood pressure 137 mm[Hg] MD Susan Ayala Work Phone: [facility] 11-20-2023 08:09-0400 Body height 162.56 cm MD Susan Ayala Work Phone: [facility] 11-20-2023 08:09-0400 Body weight 74.84 kg MD Susan Ayala Work Phone: [facility] 10-24-2023 12:53-0400 Body height 162.56 cm MD Susan Ayala Work Phone: [facility] 10-24-2023 12:53-0400 Body mass index (BMI) [Ratio] 27.8 kg/m2 MD Susan Ayala Work Phone: [facility] 10-24-2023 12:53-0400 Body temperature 97.9 [degF] MD Susan Ayala Work Phone: [facility] 10-24-2023 12:53-0400 Body weight 73.48 kg MD Susan Ayala Work Phone: [facility] 10-24-2023 12:53-0400 Diastolic blood pressure 83 mm[Hg] MD Susan Ayala Work Phone: [facility] 10-24-2023 12:53-0400 Heart rate 85 /min MD Susan Ayala Work Phone: [facility] 10-24-2023 12:53-0400 Respiratory rate 16 /min MD Susan Ayala Work Phone: [facility] 10-24-2023 12:53-0400 SaO2% (BldA) [Mass fraction] 98 % MD Susan Ayala Work Phone: [facility] 10-24-2023 12:53-0400 Systolic blood pressure 137 mm[Hg] MD Susan Ayala Work Phone: [facility] 10-11-2023 13:21-0400 Body height 162.56 cm MD Susan Ayala Work Phone: [facility] 10-11-2023 13:21-0400 Body mass index (BMI) [Ratio] 28.3 kg/m2 MD Susan Ayala Work Phone: [facility] 10-11-2023 13:21-0400 Body temperature 98 [degF] MD Susan Ayala Work Phone: [facility] 10-11-2023 13:21-0400 Body weight 74.84 kg MD Susan Ayala Work Phone: [facility] 10-11-2023 13:21-0400 Diastolic blood pressure 79 mm[Hg] MD Susan Ayala Work Phone: [facility] 10-11-2023 13:21-0400 Heart rate 102 /min MD Susan Ayala Work Phone: [facility] 10-11-2023 13:21-0400 Respiratory rate 20 /min MD Susan Ayala Work Phone: [facility] 10-11-2023 13:21-0400 SaO2% (BldA) [Mass fraction] 98 % MD Susan Ayala Work Phone: [facility] 10-11-2023 13:21-0400 Systolic blood pressure 133 mm[Hg] MD Susan Ayala Work Phone: [facility] 10-03-2023 13:01-0400 Body height 162.56 cm MD Susan Ayala Work Phone: [facility] 10-03-2023 13:01-0400 Body mass index (BMI) [Ratio] 28.5 kg/m2 MD Susan Ayala Work Phone: [facility] 10-03-2023 13:01-0400 Body weight 75.29 kg MD Susan Ayala Work Phone: [facility] 10-03-2023 13:01-0400 Diastolic blood pressure 73 mm[Hg] MD Susan Ayala Work Phone: [facility] 10-03-2023 13:01-0400 Heart rate 83 /min MD Susan Ayala Work Phone: [facility] 10-03-2023 13:01-0400 Systolic blood pressure 125 mm[Hg] MD Susan Ayala Work Phone: [facility] 09-21-2023 10:59-0400 Body height 162.56 cm MD Susan Ayala Work Phone: [facility] 09-21-2023 10:59-0400 Body mass index (BMI) [Ratio] 28.1 kg/m2 MD Susan Ayala Work Phone: [facility] 09-21-2023 10:59-0400 Body temperature 98 [degF] MD Susan Ayala Work Phone: [facility] 09-21-2023 10:59-0400 Body weight 74.38 kg MD Susan Ayala Work Phone: [facility] 09-21-2023 10:59-0400 Diastolic blood pressure 80 mm[Hg] MD Susan Ayala Work Phone: [facility] 09-21-2023 10:59-0400 Heart rate 77 /min MD Susan Ayala Work Phone: [facility] 09-21-2023 10:59-0400 Respiratory rate 18 /min MD Susan Ayala Work Phone: [facility] 09-21-2023 10:59-0400 SaO2% (BldA) [Mass fraction] 100 % MD Susan Ayala Work Phone: [facility] 09-21-2023 10:59-0400 Systolic blood pressure 131 mm[Hg] MD Susan Ayala Work Phone: [facility] 08-29-2023 13:44-0400 Diastolic blood pressure 82 mm[Hg] MD Susan Ayala Work Phone: [facility] 08-29-2023 13:44-0400 Heart rate 67 /min MD Susan Ayala Work Phone: [facility] 08-29-2023 13:44-0400 Respiratory rate 16 /min MD Susan Ayala Work Phone: [facility] 08-29-2023 13:44-0400 SaO2% (BldA) [Mass fraction] 98 % MD Susan Ayala Work Phone: [facility] 08-29-2023 13:44-0400 Systolic blood pressure 146 mm[Hg] MD Susan Ayala Work Phone: [facility] 08-29-2023 12:59-0400 Body temperature 97 [degF] MD Susan Ayala Work Phone: [facility] 08-29-2023 12:29-0400 Inhaled oxygen flow rate 8 L/min MD Susan Ayala Work Phone: [facility] 08-29-2023 11:31-0400 Body weight 74.84 kg MD Susan Ayala Work Phone: [facility] 08-29-2023 11:15-0400 Body height 162.56 cm MD Susan Ayala Work Phone: [facility] 08-11-2023 10:40-0400 Body height 162.56 cm MD Susan Ayala Work Phone: [facility] 08-11-2023 10:40-0400 Body mass index (BMI) [Ratio] 28.1 kg/m2 MD Susan Ayala Work Phone: [facility] 08-11-2023 10:40-0400 Body temperature 97.5 [degF] MD Ssuan Ayala Work Phone: [facility] 08-11-2023 10:40-0400 Body weight 74.44 kg MD Susan Ayala Work Phone: [facility] 08-11-2023 10:40-0400 Diastolic blood pressure 80 mm[Hg] MD Susan Ayala Work Phone: [facility] 08-11-2023 10:40-0400 Heart rate 85 /min MD Susan Ayala Work Phone: [facility] 08-11-2023 10:40-0400 Systolic blood pressure 121 mm[Hg] MD Susan Ayala Work Phone: [facility] 08-01-2023 13:50-0400 Diastolic blood pressure 78 mm[Hg] MD Susan Ayala Work Phone: [facility] 08-01-2023 13:50-0400 Heart rate 72 /min MD Susan Ayala Work Phone: [facility] 08-01-2023 13:50-0400 Respiratory rate 16 /min MD Susan Ayala Work Phone: [facility] 08-01-2023 13:50-0400 SaO2% (BldA) [Mass fraction] 100 % MD Susan Ayala Work Phone: [facility] 08-01-2023 13:50-0400 Systolic blood pressure 138 mm[Hg] MD Susan Ayala Work Phone: [facility] 08-01-2023 12:58-0400 Body temperature 98.4 [degF] MD Susan Ayala Work Phone: [facility] 08-01-2023 12:33-0400 Inhaled oxygen flow rate 8 L/min MD Susan Ayala Work Phone: [facility] 08-01-2023 11:26-0400 Body height 162.56 cm MD Susan Ayala Work Phone: [facility] 08-01-2023 11:26-0400 Body mass index (BMI) [Ratio] 28.3 kg/m2 MD Susan Ayala Work Phone: [facility] 08-01-2023 11:26-0400 Body weight 74.84 kg MD Susan Ayala Work Phone: [facility] 07-11-2023 14:28-0500 Body height 162.56 cm MD Susan Ayala Work Phone: [facility] 07-11-2023 14:28-0500 Body mass index (BMI) [Ratio] 28.5 kg/m2 MD Susan Ayala Work Phone: [facility] 07-11-2023 14:28-0500 Body weight 75.46 kg MD Susan Ayala Work Phone: [facility] 07-11-2023 14:28-0500 Diastolic blood pressure 75 mm[Hg] MD Susan Ayala Work Phone: [facility] 07-11-2023 14:28-0500 Heart rate 93 /min MD Susan Ayala Work Phone: [facility] 07-11-2023 14:28-0500 Systolic blood pressure 138 mm[Hg] MD Susan Ayala Work Phone: [facility] 05-16-2023 10:00-0500 Body temperature 98.2 [degF] MD Susan Ayala Work Phone: [facility] 05-16-2023 10:00-0500 Diastolic blood pressure 78 mm[Hg] MD Susan Ayala Work Phone: [facility] 05-16-2023 10:00-0500 Heart rate 87 /min MD Susan Ayala Work Phone: [facility] 05-16-2023 10:00-0500 Respiratory rate 18 /min MD Susan Ayala Work Phone: [facility] 05-16-2023 10:00-0500 SaO2% (BldA) [Mass fraction] 99 % MD Susan Ayala Work Phone: [facility] 05-16-2023 10:00-0500 Systolic blood pressure 136 mm[Hg] MD Susan Ayala Work Phone: [facility] 05-02-2023 16:16-0500 Body height 162.56 cm MD Susan Ayala Work Phone: [facility] 05-02-2023 16:16-0500 Body weight 75.7 kg MD Susan Ayala Work Phone: [facility] 03-27-2023 14:00-0500 Body height 162.56 cm Susan Ayala Other [facility] [employer] Other 03-27-2023 14:00-0500 Body mass index (BMI) [Ratio] 28.49 kg/m2 Susan Ayala Other [employer] Other 03-27-2023 14:00-0500 Body weight 75.3 kg Susan Ayala Other [employer] Other 03-27-2023 14:00-0500 Diastolic blood pressure 84 mm[Hg] Susan Ayala Other [employer] Other 03-27-2023 14:00-0500 Systolic blood pressure 136 mm[Hg] Susan Ayala Other [employer] Other 02-06-2023 10:30-0400 Body height 162.56 cm Susan Ayala Other [employer] Other 02-06-2023 10:30-0400 Body mass index (BMI) [Ratio] 29.01 kg/m2 Susan Ayala Other [employer] Other 02-06-2023 10:30-0400 Body weight 76.66 kg Susan Ayala Other [employer] Other 02-06-2023 10:30-0400 Diastolic blood pressure 84 mm[Hg] Susan Ayala Other [employer] Other 02-06-2023 10:30-0400 Systolic blood pressure 144 mm[Hg] Susan Ayala Other [employer] Other 12-28-2022 09:30-0400 Body height 162.56 cm Susan Ayala Other [employer] Other 12-28-2022 09:30-0400 Body mass index (BMI) [Ratio] 28.15 kg/m2 Susan Ayala Other [employer] Other 12-28-2022 09:30-0400 Body weight 74.39 kg Susan Ayala Other [employer] Other 12-28-2022 09:30-0400 Diastolic blood pressure 78 mm[Hg] Susan Ayala Other [employer] Other 12-28-2022 09:30-0400 SaO2% (BldA) [Mass fraction] 96 % Susan Ayala Other [employer] Other 12-28-2022 09:30-0400 Systolic blood pressure 128 mm[Hg] Susan Ayala Other [employer] Other 09-13-2022 15:00-0400 Body height 162.56 cm Susan Ayala Other [employer] Other 09-13-2022 15:00-0400 Body mass index (BMI) [Ratio] 28.32 kg/m2 Susan Ayala Other [employer] Other 09-13-2022 15:00-0400 Body weight 74.84 kg Susan Ayala Other [employer] Other 09-13-2022 15:00-0400 Diastolic blood pressure 74 mm[Hg] Susan Ayala Other [employer] Other 09-13-2022 15:00-0400 SaO2% (BldA) [Mass fraction] 98 % Susan Ayala Other [employer] Other 09-13-2022 15:00-0400 Systolic blood pressure 142 mm[Hg] uSsan Ayala Other [employer] Other 07-06-2022 10:00-0500 Body height 162.56 cm Susan Ayala Other [employer] Other 07-06-2022 10:00-0500 Body mass index (BMI) [Ratio] 28.66 kg/m2 Susan Ayala Other [employer] Other 07-06-2022 10:00-0500 Body weight 75.75 kg Susan Ayala Other [employer] Other 07-06-2022 10:00-0500 Diastolic blood pressure 62 mm[Hg] Susan Ayala Other [employer] Other 07-06-2022 10:00-0500 SaO2% (BldA) [Mass fraction] 98 % Susan Ayala Other [employer] Other 07-06-2022 10:00-0500 Systolic blood pressure 110 mm[Hg] Susan Ayala Other [employer] Other 06-14-2022 11:00-0500 Body height 162.56 cm Susan Ayala Other [employer] Other 06-14-2022 11:00-0500 Body mass index (BMI) [Ratio] 29.01 kg/m2 Susan Ayala Other [employer] Other 06-14-2022 11:00-0500 Body weight 76.66 kg Susan Ayala Other [employer] Other 06-14-2022 11:00-0500 Diastolic blood pressure 76 mm[Hg] Susan Ayala Other [employer] Other 06-14-2022 11:00-0500 SaO2% (BldA) [Mass fraction] 98 % Susan Ayala Other [employer] Other 06-14-2022 11:00-0500 Systolic blood pressure 138 mm[Hg] Susan Ayala Other [facility] [employer] Other Encounters Encounter Date Encounter Type Care Provider Facility Start: 06-11-2024 End: 06-11-2024 ambulatory Susan Ayala MD Work Phone: [facility] Work Phone: Start: 06-11-2024 End: 06-11-2024 Patient encounter procedure Susan Ayala MD Work Phone: [facility] Work Phone: Start: 05-24-2024 Patient encounter status Susan Ayala MD Work Phone: [facility] Start: 05-24-2024 End: 05-24-2024 ambulatory Susan Ayala MD Work Phone: [facility] Work Phone: Start: 05-24-2024 End: 05-24-2024 Encounter for general adult medical examination without abnormal findings Susan Ayala MD Work Phone: [facility] Start: 05-24-2024 End: 05-24-2024 Patient encounter procedure Susan Ayala MD Work Phone: [facility] Work Phone: Start: 05-23-2024 Registered Recurring [facility] Work [facility]: Start: 05-23-2024 End: 05-23-2024 ambulatory Susan Ayala MD Work Phone: [facility] Work Phone: Start: 05-23-2024 End: 05-23-2024 Patient encounter procedure Susan Ayala MD Work Phone: [facility] Work Phone: Start: 05-17-2024 End: 05-17-2024 ambulatory Susan Ayala MD Work Phone: [facility] Work Phone: Start: 05-17-2024 End: 05-17-2024 Patient encounter procedure Susan Ayala MD Work Phone: [facility] Work Phone: Start: 05-15-2024 Non-patient / Non-visit Susan Ayala MD Work Phone: [facility] Work Phone: Start: 05-14-2024 End: 05-15-2024 Telephone encounter Mabel Oscar MD Work Phone: [facility] Start: 05-14-[address] Facility:[facility] Start: 05-14-2024 Registered Recurring Susan bailon MD Work Phone: [facility] Start: 04-16-2024 Registered Recurring Susan bailon MD Work Phone: [facility] Start: 04-10-2024 End: 04-10-2024 Bamboo flowsheet [...] 04-10-2024 End: 04-10-2024 Clinical Support Angelica Hawkins [facility] Work Phone: [facility] Comment on above: 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); Tinnitus, right Start: 03-25-2024 End: 03-25-2024 ambulatory Susan Ayala MD Work Phone: [facility] Work Phone: Start: 03-25-2024 End: 03-25-2024 Patient encounter procedure Susan Ayala MD Work Phone: [facility] Work Phone: Start: 03-22-2024 Registered Recurring Susan bailon MD [facility] Phone: [facility] Work Phone: Start: 03-22-2024 End: 03-22-2024 ambulatory Susan Ayala MD Work Phone: [facility] Work Phone: Start: 03-22-2024 End: 03-22-2024 Patient encounter procedure Susan Ayala MD Work Phone: [facility] Work Phone: Start: 03-16-2024 End: 03-16-2024 ambulatory Susan Ayala MD Work Phone: [facility] Work Phone: Start: 03-16-2024 End: 03-16-2024 Patient encounter procedure Susan Ayala MD Work Phone: [facility] Work Phone: Start: 03-07-2024 [...] Registered Recurring Susan bailon MD Work Phone: [facility] Start: 02-20-2024 End: 02-20-2024 ambulatory MD Susan Ayala Work Phone: [facility] Work Phone: Start: 02-20-2024 End: 02-20-2024 Patient encounter procedure MD Susan Ayala Work Phone: [facility] Work Phone: Start: 02-15-2024 Registered Recurring MD Susan Ayala Work Phone: [facility] Work Phone: Start: 02-15-2024 End: 02-15-2024 ambulatory MD Susan Ayala Work Phone: [facility] Work Phone: Start: 02-15-2024 End: 02-15-2024 Patient encounter procedure MD Susan Ayala Work Phone: [facility] Amb[facility] Work Phone: Start: 02-08-2024 Non-patient / Non-visit MD Susan Ayala Work Phone: [facility] Work Phone: Start: 01-23-2024 Registered Recurring MD Susan Ayala Work Phone: [facility] Start: 01-03-2024 End: 01-03-2024 ambulatory MD Susan Ayala Work Phone: [facility] Work Phone: Start: 01-03-2024 End: 01-03-2024 Patient encounter procedure MD Susan Ayala Work Phone: [facility] Amb[facility] Work Phone: Start: 01-03-2024 Registered Recurring MD Susan Ayala Work Phone: [facility] Work Phone: Start: 12-28-2023 End: [...] / Non-visit MD Susan Ayala Work Phone: [facility] Work Phone: Start: 12-21-2023 End: 12-21-2023 ambulatory MD Susan Ayala Work Phone: [facility] Work Phone: Start: 12-21-2023 End: 12-21-2023 Patient encounter procedure MD Susan Ayala Work Phone: [facility] Work Phone: Start: 12-21-2023 Registered Recurring MD Susan Ayala Work Phone: [facility] Work Phone: Start: 12-11-2023 Registered Recurring MD Susan Ayala Work Phone: [facility] Start: 12-06-2023 Non-patient / Non-visit MD Susan Ayala Work Phone: [facility] Physician [facility] Work Phone: Start: 12-05-2023 Non-patient / Non-visit MD Susan Ayala Work Phone: [facility] Physician [facility] Work Phone: Start: 12-05-2023 End: 12-05-2023 Admission to same day surgery center MD Susan Ayala Work Phone: [facility] Work Phone: Start: 12-05-2023 End: 12-05-2023 ambulatory MD Susan Ayala Work Phone: [facility] Work Phone: Start: 12-04-2023 Registered Recurring MD Susan Ayala Work Phone: [facility] Work Phone: Start: 11-29-2023 Non-patient / Non-visit MD Susan Ayala Work Phone: [facility] Work Phone: Start: 11-27-2023 Non-patient / Non-visit MD Susan Ayala Work Phone: [facility] Work Phone: Start: 11-22-2023 Non-patient / Non-visit MD Susan Ayala Work Phone: [facility] Work Phone: Start: 11-20-2023 Non-patient / Non-visit MD Susan Ayala Work Phone: [facility] Work Phone: Start: 11-15-2023 Non-patient / Non-visit MD Susan Ayala Work Phone: [facility] Work Phone: Start: 11-13-2023 Non-patient / Non-visit MD Susan Ayala Work Phone: [facility] Work Phone: Start: 11-08-2023 Non-patient / Non-visit MD Susan Ayala Work Phone: [facility] Work Phone: Start: 11-02-2023 Non-patient / Non-visit MD Susan Ayala Work Phone: [facility] Work Phone: Start: 10-31-2023 Registered Recurring MD Susan Ayala Work Phone: [facility] Start: 10-25-2023 End: 10-25-2023 ambulatory GERALDO GARCÍA Not Available Start: 10-24-2023 End: 10-24-2023 Patient encounter procedure MD Susan Ayala Work Phone: [facility] Work Phone: Start: 10-19-2023 End: 10-19-2023 ambulatory GILSON PORTILLO Not Available Start: 10-11-2023 End: 10-11-2023 ambulatory MD Susan Ayala Work Phone: [facility] Work Phone: Start: 10-11-2023 End: 10-11-2023 Patient encounter procedure MD Susan Ayala Work Phone: [facility] Work Phone: Start: 10-11-2023 Registered Recurring MD Susan Ayala Work Phone: [facility] Work Phone: Start: 10-03-2023 End: 10-03-2023 ambulatory MD Susan Ayala Work Phone: [facility] Work Phone: Start: 10-03-2023 End: 10-03-2023 Patient encounter procedure MD Susan Ayala Work Phone: [facility] Work Phone: Start: 09-26-2023 Non-patient / Non-visit MD Susan Ayala Work Phone: [facility] Work Phone: Start: 09-21-2023 End: 09-21-2023 Patient encounter procedure MD Susan Ayala Work Phone: [facility] Work Phone: Start: 09-21-2023 Registered Recurring MD Susan Ayala [facility] Work Phone: Start: 09-20-2023 End: 09-20-2023 ambulatory GERALDO H ITZKOWITZ Not Available Start: 09-19-2023 Registered Recurring MD Susan Ayala Work Phone: [facility] Start: 09-06-2023 End: 09-06-2023 ambulatory GERALDO H ITZKOWITZ Not Available Start: 08-29-2023 End: 08-29-2023 Admission to same day surgery center MD Susan Ayala [facility] [place] Start: 08-29-2023 End: 08-29-2023 ambulatory MD Susan Ayala Work Phone: [facility] Work Phone: Start: 08-16-2023 End: 08-16-2023 ambulatory GERALDO H ITZKOWITZ Not Available Start: 08-11-2023 End: 08-11-2023 ambulatory MD Susan Ayala Work Phone: [facility] Work Phone: Start: 08-11-2023 End: 08-11-2023 Patient encounter procedure MD Susan Ayala Work Phone: [facility] Work Phone: Start: 08-10-2023 End: 08-10-2023 ambulatory GILSON Post BANDAR Not Available Start: 08-09-2023 End: 08-09-2023 ambulatory GERALDO GARCÍA Not Available Start: 08-01-2023 End: 08-01-2023 Admission to same day surgery center MD Susan Ayala Work Phone: [facility] [place] Start: 08-01-2023 End: 08-01-2023 ambulatory MD Susan Ayala Work Phone: [facility] Work Phone: Start: 07-24-2023 Non-patient / Non-visit MD Susan Ayala Work Phone: [facility] Work Phone: Start: 07-24-2023 End: 07-24-2023 ambulatory CHEL JOSEPH Not Available Start: 07-19-2023 End: 07-19-2023 Patient encounter procedure MD Susan Ayala Work Phone: [facility] Work Phone: Start: 07-19-2023 End: 07-19-2023 ambulatory MD Susan Ayala Work Phone: [facility] Work Phone: Start: 07-12-2023 End: 07-12-2023 Admission to same day surgery center MD Susan Ayala Work Phone: [facility] Start: 07-12-2023 End: 07-12-2023 ambulatory GERALDO GARCÍA Not Available Start: 07-11-2023 End: 07-11-2023 Patient encounter procedure MD Susan Ayala Work Phone: [facility] Work Phone: Start: 07-04-2023 Registered Recurring MD Susan Ayala Work Phone: [facility] Start: 06-29-2023 End: 07-02-2023 ambulatory [facility] Start: 06-01-2023 End: 06-01-2023 ambulatory GILSON PORTILLO Not Available Start: 05-30-2023 Registered Recurring MD Susan Ayala Work Phone: [facility] Start: 05-16-2023 End: 05-16-2023 Admission to same day surgery center MD Susan Ayala Work Phone: [facility] Work Phone: Start: 05-16-2023 End: 05-16-2023 ambulatory MD Susan Ayala Work Phone: [facility] Work Phone: Start: 05-02-2023 End: 05-02-2023 Patient encounter procedure MD Susan Ayala Work Phone: [facility] Work Phone: Start: 04-28-2023 End: 04-28-2023 ambulatory GERALDO H ITZKOWITZ Not Available Start: 04-10-2023 End: 04-10-2023 ambulatory Susan Ayala Other [employer] Other Start: 04-10-2023 Telephone encounter Susan Ayala [facility] Start: 04-05-2023 End: 04-05-2023 ambulatory GERALDO H ITZKOWITZ Not Available Start: 03-27-2023 End: 03-27-2023 ambulatory Susan Ayala Other [employer] Other Start: 03-27-2023 Patient encounter procedure Susan Ayala [facility] Start: 03-27-2023 Telephone encounter Susan Ayala [facility] Start: 03-21-2023 End: 03-21-2023 ambulatory Susan Ayala Other [employer] Other Start: 03-21-2023 Telephone encounter Susan Ayala [facility] Start: 03-10-2023 (Televisit) Televisit Susan Mena [facility] Start: 03-10-2023 End: 03-10-2023 ambulatory Susan Ayala Other [employer] Other Start: 03-06-2023 End: 03-06-2023 ambulatory Susan Ayala Other [employer] Other Start: 03-06-2023 Telephone encounter Susan Ayala [facility] Start: 02-06-2023 End: 02-06-2023 ambulatory Susan Ayala Other [employer] Other Start: 02-06-2023 Office outpatient visit 15 minutes Susan Ayala [facility] Start: 02-06-2023 Telephone encounter Susan Ayala [facility] Start: 12-28-2022 End: 12-28-2022 ambulatory Susan Ayala Other [employer] Other Start: 12-28-2022 Office outpatient visit 15 minutes Susan Ayala [facility] Start: 09-13-2022 End: 09-13-2022 ambulatory Susan Ayala Other [employer] Other Start: 09-13-2022 Office outpatient visit 15 minutes Susan Ayala [facility] Start: 08-26-2022 End: 08-27-[address] LITTLE STAFFORD . Facility:[facility] Start: 08-01-2022 End: 08-02-[address] LITTLE STAFFORD . Facility:[facility] Start: 07-18-2022 End: 07-18-[address] LITTLE STAFFORD . Facility:[facility] Start: 07-12-2022 End: 07-12-2022 ambulatory Susan Ayala Other [employer] Other Start: 07-12-2022 Telephone encounter Susan Ayala [facility] Start: 07-06-2022 End: 07-06-2022 ambulatory Susan Ayala Other [employer] Other Start: 07-06-2022 Office outpatient visit 15 minutes Susan Ayala [facility] Start: 06-21-2022 End: 06-21-2022 ambulatory Susan Ayala Other [employer] Other Start: 06-21-2022 Telephone encounter Susan Ayala [facility] Start: 06-14-2022 Office outpatient visit 15 minutes Susan Ayala [facility] Start: 06-14-2022 End: 06-14-2022 ambulatory MD Susan Ayala Work Phone: [facility] Work Phone: Start: 06-14-2022 End: 06-14-2022 Departed Referred MD Ssuan Ayala Work Phone: [facility] [place] Work Phone: Start: 04-25-2022 Adult health examination Susan Ayala Other [employer] Other Start: 04-25-2022 Gynecological examination normal Susan Ayala Other [employer] Other Start: 04-21-2022 End: 04-21-[address] SUSAN AYALA Facility:[facility] Start: 04-14-2022 End: 04-15-2022 ambulatory ANIA BLANCA Facility:[facility] Start: 03-28-2022 End: 03-28-[address] SUSAN AYALA Facility:[facility] Start: 12-27-2021 End: 12-28-2021 ambulatory ANIA BLANCA Facility:[facility] Procedures Date Procedure Procedure Detail Performing Clinician Start: 04-10-2024 AUDITORY FUNCTION TESTS Angelica Hawkins [facility] Work Phone: Start: 03-16-2024 Quick Strep (POC) [...] Screening for malign ant neoplasm of cervix [facility] Start: 07-31-2024 Screening for malign ant neoplasm of breast Mammogram [facility] Start: 05-16-2024 End: 05-16-2024 Patient encounter procedure 05/16/2024 1:50 PM EST Procedure Visit [facility] [address] [id number] Gilson Portillo DPM [address] [address] [facility] Start: 04-10-2024 End: 04-10-2024 Patient encounter procedure 04/10/2024 1:10 PM EST Office Visit [facility] [address] [facility] [address] [place] [id number] Mabel Oscar MD [address] [facility] [address] [place] [address] Arrived [facility] Comment on above: Arrived Start: 03-07-2024 End: 03-07-2024 Patient encounter procedure [facility] Comment on above: 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 (Primary Dx) Start: 01-07-2024 Influenza vaccination Influenza Vacc ine (#1) [facility] Start: 12-28-2023 End: 12-28-2023 Patient encounter procedure 12/28/2023 1:10 PM EDT Procedure Visit [facility] [address] [facility] [address] [place] [id number] Gilson Portillo DPM [address] [address] Onychomycosis (Primary Dx); Toe pain, bilateral [facility] Comment on above: Onychomycosis (Prima ry Dx); Toe pain, bilateral Start: 12-05-2023 [facility] Start: 10-11-2023 Patient referral [facility] Work Phone: Start: 10-09-2023 Patient referral [facility] Work Phone: Start: 08-29-2023 [facility] Start: 08-29-2023 End: 08-29-2023 [facility] Start: 08-01-2023 [facility] Start: 08-01-2023 [facility] Start: 05-16-2023 Lumpectomy of left breast OR Breast Bx, Lumpectomy, Mass Excision (Left) [facility] Start: 06-14-2022 [facility] Start: 1965 Screening for malign ant neoplasm of colon [facility] Atopobium vaginae DN A [Presence] in Vaginal fluid by HIMANSHU with probe detection [facility] Bacterial vaginosis associated bacterium 2 DNA [Presence] in Vaginal fluid by HIMANSHU with probe detection [facility] Basophils [#/volume] in Blood by Automated count [facility] Basophils/100 leukocytes in Blood by Automated count [facility] Comprehensive metabo lic 1999 panel - Serum or Plasma [facility] Comprehensive metabo lic 1999 panel - Serum or Plasma [facility] Comprehensive metabo lic 1999 panel - Serum or Plasma [facility] DXA Skeletal system.axial Views for bone density [facility] Eosinophils/100 leukocytes in Blood by Automated count [facility] Erythrocyte distribution width [Ratio] by Automated count [facility] Erythrocytes [#/volu me] in Blood [facility] Hematocrit [Volume Fraction] of Blood [facility] Hemoglobin [Mass/volume] in Blood [facility] Hepatic function panel [facility] Leukocytes [#/volume ] corrected for nucleated erythrocytes in Blood by Automated coun [facility] Leukocytes [#/volume ] in Blood [facility] Lymphocytes [#/volum e] in Blood by Automated count [facility] Lymphocytes/100 leukocytes in Blood by Automated count [facility] MCH [Entitic mass] b y Automated count [facility] MCHC [Mass/volume] b y Automated count [facility] MCV [Entitic volume] by Automated count [facility] Megasphaera sp type 1 DNA [Presence] in Vaginal fluid by HIMANSHU with probe detection [facility] MG Breast - left Diagnostic [facility] Monocytes [#/volume] in Blood by Automated count [facility] Monocytes/100 leukocytes in Blood by Automated count [facility] Neutrophils [#/volum e] in Blood by Automated count [facility] Neutrophils/100 leukocytes in Blood by Automated count [facility] Nucleated erythrocyt es [Presence] in Blood by Automated count [facility] Patient Education Colon polyps H emorrhoids (DC) Diverticulosis (DC) Know your Meds [facility] Work Phone: Patient referral [facility] Work Phone: Platelet mean volume [Entitic volume] in Blood by Automated count [facility] Platelets [#/volume] in Blood [facility] XR Humerus - right Views [facility] Immunizations Immunization Date Immunization Notes Care Provider Fa [facility] 02-21-2024 influenza, injectabl e, madin paulette canine kidney, preservative free Mabel Oscar MD Work Phone: [facility] 02-21-2024 influenza virus vacc ine, unspecified formulation Gilson Portillo DPM Work Phone: [facility] 02-28-2022 COVID-19 mRNA Bivale nt Booster (Pfizer) MD Susan Ayala Work Phone: [facility] 02-28-2022 Influenza, injectabl e, Madin Apison Canine Kidney, preservative free, quadrivalent Mabel Oscar MD Work Phone: [facility] 02-28-2022 influenza virus vacc ine, unspecified formulation Gilson Portillo DPM Work Phone: [facility] 04-20-2021 COVID-19 mRNA, Comir leeroy (Pfizer) MD Susan Ayala Work Phone: [facility] 08-27-2020 COVID-19 mRNA, Comir leeroy (Pfizer) MD Susan Ayala Work Phone: [facility] 08-07-2020 COVID-19 mRNA, Comir leeroy (Pfizer) MD Susan Ayala Work Phone: [facility] 01-23-2017 influenza, injectabl e, quadrivalent, preservative free Mabel Oscar MD Work Phone: [facility] 02-22-2016 influenza, injectabl e, quadrivalent, preservative free Mabel Oscar MD Work Phone: [facility] 02-05-2015 influenza, seasonal, injectable, preservative free Mabel Oscar MD Work Phone: [facility] 02-26-1997 influenza, seasonal, injectable Mabel Oscar MD Work Phone: [facility] 02-26-1997 pneumococcal polysaccharide vaccine, 23 valent Mabel Oscar MD Work Phone: [facility] Healthcare Payers Date Payer Category Payer Unknown [id number] 2022 Self-pay [id number] 2019 Medicare [employer] MEDICARE ADVANTAGE HUMAN MEDICARE [id number] 2019-Present [address] [place] [id number] 2019 Medicare (Managed Care) [employer] EDICARE ADVANTAGE [id number] 2017 Medicaid [id number]. [id number] 1964 Unknown [id number] 2.16.840.1.840852.3.579.2. 593 1964 Unknown [id number] 2.16.840.1.024572.3.579.2. 593 1964 Unknown [id number] 2.16.840.1.177068.3.579.2. 593 1964 Unknown [id number] 2.16.840.1.509523.3.579.2. 593 1964 Unknown [id number] 2.16.840.1.054142.3.579.2. 593 1964 Unknown [id number] 2.16.840.1.110144.3.579.2. 593 1964 Unknown [id number] 2.16.840.1.575534.3.579.2. 593 1964 Unknown [id number] 2.16.840.1.710428.3.579.2. 177 1964 Unknown [id number] 2.840.1.862165.3.579.2. 1258 1964 Unknown [id number] 2.840.1.894542.3.579.2. 1258 1964 Unknown [id number] 2.16.840.1.213557.3.579.2. 125 1964 Unknown [id number] 2.16840.1.924989.3.579.2. 1258 1964 Unknown [id number] 2.16840.1.336087.3.579.2. 1258 1964 Unknown [id number] 2.16840.1.452918.3.579.2. 125 1964 Unknown [id number] 2.16.840.1.870054.3.579.2. 125 1964 Unknown [id number] 2.16.840.1.526117.3.579.2. 1258 1964 Unknown [id number] 2.16.840.1.282123.3.579.2. 125 1964 Unknown [id number] 2.16.840.1.067483.3.579.2. 125 1964 Unknown [id number] 2.16.840.1.085939.3.579.2. 1259 1964 Unknown [id number] 2.0.1.090143.3.579.2. 1258 1964 Unknown [id number] .0.1.375482.3.579.2. 9 1964 Unknown [id number] ..1.879626.3.579.2. 1259 1960 Medicaid [id number] 1960 Medicare [id number] ..[id number] Medicaid Medicaid [id number] Medicare [id number] Medicare Medicare [id number] Unknown [place] [facility] PFFS [id number] Unknown [id number] ..1.798873.3.579.2. 531 Unknown [id number] ..1.735796.3.579.2. 531 Unknown [id number] ..1.208269.3.579.2. 531 Unknown [id number] ..1.375857.3.579.2. 531 Unknown [id number] ..1.967466.3.579.2. 531 Unknown [id number] ..1.079270.3.579.2. 531 Unknown [id number] ..1.204583.3.579.2. 531 Social History Date Type Detail Facility Tobacco smoking stat [facility] Unknown if ever smoked [facility] Work Phone: Start: 1965 Sex Assigned At Female F [facility] Start: 12-28-2023 End: 04-10-2024 Sex Assigned At [facility] Chika [facility] Other Start: 05-02-2023 End: 03-16-2024 Tobacco smoking status NHIS Ex-smoker (finding) [facility] End: 05-08-2016 History of tobacco use Current smoker [facility] End: 05-08-2016 History of tobacco use Cigarette Smoker [facility] Start: 12-28-2023 End: 04-10-2024 Alcoholic beverage intake Ex-drinker (finding) [facility] Start: 12-28-2023 End: 04-10-2024 History of Social function [facility] Start: 1965 Sex assigned at Not on file [facility] Start: 03-16-2024 End: 06-11-2024 Sex Female (finding) [facility] Start: 04-10-2024 Tobacco use and exposure Smokeless tobacco non-user [facility] Medical Equipment Procedure Code Equipment Code Equipment Origin al Text Equipment Identifier Dates Biopsy, breast, with lumpectomy Imaging lesion localization marker, implantable [id number] [facility] Start: 08-01-2023 Goals Date Patient Goal Desired Activity /State Clinical Notes 06-14-2022 to 05-23-2024 Telephone Encounter - Mabel Oscar MD - 05/14/2024 4:18 PM ESTTelephone Encounter - Mabel Oscar MD - 05/14/2024 4:18 PM ESTTelephone Encounter - Nazia Oscar - 05/14/2024 1:24 PM EST Note Date & Type Note Facility 05-23-2024 Progress note [facility] enter 05-14-2024 Telephone encount er Note Send discharge note [facility] Healthcare 05-14-2024 Miscellaneous Notes Formattin g [...] appt, and MRI. documented in this encounter [facility] 05-14-2024 Telephone encount er Note Called pt/explained about the importance of having the MRI and appt with Dr Oscar, pt said she does not want to have it done or schedule any appts. [facility] 05-14-2024 Telephone encount er Note Advise patient she should still get the MRI because steroids can decrease swelling in a tumor that restores hearing, so having a tumor is not excluded by the hearing retuirning [facility] 05-14-2024 Telephone encount er Note Pt called in to cancel her appts due to her hearing coming back. Pt was scheduled with audio, 's appt, and MRI. [facility] 04-10-2024 History of Presen t illness Narrative [...] left breast in female, estrogen receptor positive ([facility]/HCC) 05/19/2023 Abnormal mammogram 04/08/2024 Allergic rhinitis 04/08/2024 Breast pain, left 04/08/2024 Elevated fasting glucose 04/08/2024 GERD (gastroesophageal reflux disease) 04/08/2024 Hyperlipidemia ([facility]/HCC) 04/08/2024 Invasive ductal carcinoma of [...] problems HL (hearing loss) Hypothyroid (CMS/HCC) Schizophrenia (CMS/[facility]) Past Surgical History: Procedure Laterality Date BREAST [...] - numeric: 8/10 documented in this encounter [facility] 04-10-2024 History of Presen t illness Narrative [...] dBHL = 100% documented in this encounter [facility] 03-16-2024 Evaluation note Diagnosis Onset Date Resolution [...] 11:41am Osteopenia acute May 23, 2024 11:41am [facility] Work Phone: [phone]) 643-767311-09-2024 Evaluation note* Diagnosis Onset Date Resolution Status [...] 24 1:23pm Wellness examination acute Ralf2024 1:23pm [facility] Work Phone: [phone]) 446-816711-09-2024 Evaluation note* Diagnosis Onset Date Resolution Status [...] of right eye acute June 11 8:41am [facility] Work Phone: [phone]) [phone] History of Present illness Narrative* Gilson Portillo, [...] Date Bipolar 1 disorder (CMS/HCC) Breast cancer ([facility]/HCC) 03/2023 Left Breast IDC ER/WV+ Her 2 pend Hyperlipidemia ([facility]/HCC) Hypothyroid ([facility]/HCC) Schizophrenia ([facility]) Medications: Current Outpatient Medications: alendronate (Fosamax) 70 [...] condition and treatment of condition. Continue with kifl-eab-zhuntzf creams to feet p.r.n. Gilson Portillo DPM documented in this encounterResearch [facility] [id number] Evaluation note* Diagnosis Onset Date Resolution Status [...] otitis media acute March 25, 2024 2:36pm [facility] Work Phone: [phone]) 784-226908-28-2024 Evaluation note* Diagnosis Onset Date Resolution Status [...] Sore throat noneactive March 16, 2024 9:09am [facility] Work Phone: [phone]) [phone] Evaluation note* Diagnosis Onset Date Resolution Status [...] 10:25am Osteopenia acute March 22, 2024 10:25am [facility] Work Phone: 1([phone]) 613-548208-28-2024 Evaluation note* Diagnosis Onset Date Resolution Status [...] 10:25am Osteopenia acute March 22, 2024 10:25am [facility] Work Phone: 1(422) 357-900608-22-2024 History of Present illness Narrative* Gilson Portillo, [...] Breast cancer (CMS/HCC) 03/2023 Left Breast IDC ER/WV+ Her 2 pend Hyperlipidemia (CMS/HCC) Hypothyroid (CMS/HCC) [...] condition and treatment of condition. Continue with joii-cmi-djzzseb creams to feet p.r.n. Gilson Portillo DPM documented in this encounterResearch Medical Center-[facility] [id number] Chief complaint+Reason for visit Narrative* Chief Complaint [...] Invasive ductal carcinoma of left breast Osteopenia [facility] Work Phone: [phone]) [phone] [facility]* Encounter Date Diagnosis Assessment Notes Treatment Notes Treatment Clinical Notes Mar, Invasive ductal carcinoma of left breast (ICD-10 - C50.912) Reviewed results. Grade 1. D/w daughter on speaker - phone. Appt made w Dr. García on 04/05 at 2pm. Path report and mamm reports sent to their office. [employer] Other 11-14-2023 Evaluation note* Encounter Date Diagnosis Assessment Notes Treatment Notes Treatment Clinical Notes Mar, Elevated triglycerides with high cholesterol (ICD-10 - E78.2) [employer] Other 11-03-2023 Evaluation note* Encounter Date Diagnosis [...] verbalized understanding and agreement with treatment plan. [employer] Other 10-02-2023 Evaluation note* Encounter Date Diagnosis Assessment Notes Treatment Notes Treatment Clinical Notes Feb, Abnormal mammogram of left breast (ICD-10 - R92.8) [employer] Other 10-02-2023 Evaluation note* Encounter Date Diagnosis Assessment Notes Treatment Notes Treatment Clinical Notes Feb, Elevated triglycerides with high cholesterol (ICD-10 - E78.2) Called pharmacy. They do not carry the med she is interested in the [place]. Changed rx and sent to [facility]. [employer] Other 08-23-2023 Evaluation note* Encounter Date Diagnosis Assessment Notes Treatment Notes Treatment Clinical Notes Dec, Elevated fasting glucose (ICD-10 - R73.01) Pt states Dr. Blanca is helping her wean the zyprexa. Will recheck labs listed below and return for OV in Apr. Dec, Hypothyroidism (ICD-10 - E03.9) Labs reviewed and normal. Continue present medication [employer] Other 05-09-2023 Evaluation note* Encounter Date Diagnosis Assessment Notes Treatment Notes Treatment Clinical Notes September, Skin candidiasis (ICD-10 - B37.2) Very mild erythema and discoloration. Recommend OTC Gold Valadez Powder. Call if not improving. [employer] Other 03-01-2023 Evaluation note* Encounter Date Diagnosis [...] w him from our last office visit. [employer] Other 02-07-2023 Evaluation note* Encounter Date Diagnosis Assessment Notes Treatment Notes Treatment Clinical Notes Jun, Acute vaginitis (ICD-10 - N76.0) New problem - sent culture for yeast/BV/trich. will call in 1-2 days when results are back. [employer] Other Chief complaint+Reason for visit Narrative* Chief [...] Osteopenia Invasive ductal carcinoma of left breast [facility] Work Phone: Evaluation noteNo assessment information available [facility] Work Phone: evaluation noteNo InformationN[employer] Other Evaluation note* Diagnosis Onset Date Resolution Status Hematoma of breast following procedure acute [facility] Work Phone: evaluation note* Diagnosis Onset Date Resolution Status Hematoma of breast following procedure acute Allergic rhinitis acute GERD (gastroesophageal reflux disease) acute Hyperlipidemia acute [facility] Work Phone: Evaluation note* Diagnosis Onset Date Resolution Status Hematoma of breast following procedure acute Allergic rhinitis acute GERD (gastroesophageal reflux disease) acute Hyperlipidemia acute Invasive ductal carcinoma of left breast acute Osteopenia acute [facility] Work Phone: evaluation note* Diagnosis Onset Date Resolution Status Allergic rhinitis acute GERD (gastroesophageal reflux disease) acute Hyperlipidemia acute Invasive ductal carcinoma of left breast acute Osteopenia acute Screening for colon cancer a cute Type 2 diabetes mellitus with hyperglycemia acute Invasive ductal carcinoma of left breast acute Osteopenia acute [facility] Work Phone: evaluation note* Diagnosis Onset Date Resolution Status Invasive ductal carcinoma of left breast acute Osteopenia acute Screening for colon cancer a cute Type 2 diabetes mellitus with hyperglycemia acute Invasive ductal carcinoma of left breast acute Osteopenia acute Invasive ductal carcinoma of left breast acute [facility] Work Phone: evaluation note* Diagnosis Onset Date Resolution Status Screening for colon cancer a cute Type 2 diabetes mellitus with hyperglycemia acute Invasive ductal carcinoma of left breast acute Osteopenia acute Invasive ductal carcinoma of left breast acute Invasive ductal carcinoma of left breast acute Osteopenia acute [facility] [...] carcinoma of left breast acute Osteopenia acute [facility] Work Phone: Evaluation note* Diagnosis Onset Date Resolution Status Invasive ductal carcinoma of left breast acute Osteopenia acute Invasive ductal carcinoma of left breast acute Invasive ductal carcinoma of left breast acute Osteopenia acute Right arm pain acute [facility] Work Phone: Evaluation note* Diagnosis Pain due [...] HealthcareHistory and physical note Author Lisa Rubalcava [facility] December 05, 2023 7:53am Note Date/Time December 05, 2023 7:54 am [facility] [address] [place] [address] Gastroenterology H&P Signed Patient: Melony Manley MR#: [id number] : 1965 Acct:[id number] Age/Sex: 58 / F Adm Date: 4 Loc: Room: Type: [facility] Attending Dr: Lisa Rubalcava DO Copies [...] <Electronically signed by Lisa Rubalcava DO> 12/05/23 0757 [facility] Work Phone: History general [...] Pain of right upper arm Medical History Anacortes use Medical History Vaginal atrophy Surgical History tubal ligation 2016 Surgical History wisdom teeth Surgical History CATARACT EXTRACTION- LEFT 01/25 17 Surgical History DETACHED RETINE REPAIR (LEFT) 0 06/2021 Surgical History CATARACT EXTRACTION- RIGHT 02/06 017 Hospitalization History SEE SURGICAL HX [employer] Other Hospital Discharge instructions Additional Instructions DISCHARGE [...] directed for pain unless a prescription was provided.[facility] Work Phone: Hospital Discharge instructions Additional [...] directed for pain unless a prescription was provided.[facility] Work Phone: Progress note Author Christine Velazquez [facility] December 21, 2023 10:26am Note Date/Time December 21, 2023 9: 55am [facility] [place] [address] Cancer Center Note Signed Patient: Melony Manley MR#: [id number] : 1965 Acct:[id number] Age/Sex: 58 / F Type: REG AMB Date of Service: 12/21/23 Copies to: Susan Ayala MD~ Assessment & Plan A/P (1) Invasive ductal carcinoma of left breast: (2) Osteopenia: Plan Melony is a 58-year-old nice lady with a stage IIa, pT1b, PN 1, MX left breast centrally located invasive ductal carcinoma with 1+ out of 4 lymph node for invasive cancer. ER/WV reported from the 03/20/2023 core biopsy to be ER 100% positive, PER 60% positive and HER2 manolo 2+ by IHC, negative by FISH, Ki 67 low 5%. Surgical pathology report is not dictating the status of the ER, WV and HER2/manolo. Initial consult for medical oncology on 09/21/2023: We went over her new diagnosis of new left breast invasive ductal carcinoma, stage IIa, and we went over and discussed possible options of treatment based on the ER, WV and HER2/manolo status considering that she has [...] She had DEXA scan in 07/2022 at [facility]. It revealed osteopenia with Tscore [...] to get a Pap smear through her machine whitener once a year and also informed to [...] bone density scan was in 07/2022 at [facility],next one will be 07/2024. She will need screening mammogram as well every july. For her mild chronic thrombocytopenia, it may be related to Anacortes and Seroquelbut will check Iron studies, B12 [...] is reported in the surgeon note as ER/WV positive and HER2/manolo pending however there are [...] not report any status of the ER, WV and HER2/manolo, however Dr. García note to dictate that patient was ER/WV positive and HER2/manolo was pending. Left breast [...] nipple 08/01/23 Lumpectomy path: Pathological Diagnosis A. Maxbass node, left axilla, biopsy: Metastatic carcinoma to [...] Examined (sentinel and non-sentinel): 4 Number of Maxbass Nodes Examined: 4 pTNM CLASSIFICATION (AJCC 8th [...] it was ER positive on the percent, WV +60%, low Ki-67 of only 5%, HER2 [...] She had DEXA scan in 07/2022 at [facility]. It revealed osteopenia with Tscore [...] HER2/manolo and actual path report for the ER/WV status, possibly need Oncotype Dx testing to determine if she needs adjuvant chemotherapy. She will need adjuvant radiation. She will need adjuvant endocrine therapy if she is ER/WV positive. Intake Vitals/Pain Assessment 12/21/23 09:56 Height [...] taking Letrozole for the last 6 days. [facility] Medical History Medical History Diabetes Osteopenia Invasive ductal carcinoma of left breast Left breast cancer with T3 tumor, >5 cm in greatest dimension Ingrown right greater toenail removed Ingrown left greater toenail removed Fibrocystic breast determined by biopsy Vaginal atrophy Anacortes use Elevated fasting glucose Former smoker Depression [...] signed by Christine Velazquez MD> 12/21/23 1026 [facility] Work Phone: Progress note Author [facility] January 03, 2024 2:37pm Note Date/Time January 03, 2024 1: 58pm [facility] [place] [address] Cancer Center Note Signed Patient: Melony Manley MR#: [id number] : 1965 Acct:[id number] Age/Sex: 58 / F Type: REG AMB Date of Service: 01/03/24 Copies to: Susan Ayala MD~ Assessment & Plan (1) Invasive ductal carcinoma of left breast: Plan: Return to clinic as needed Assessment: 58-year-old female with [id number] invasive ductal carcinoma of the left breast, grade 2, ER/WV positive HER2 negative. Patient has undergone lumpectomy [...] carcinoma, provisional grade 1, with DCIS. Strongly ER/WV positive HER2 was equivocal 2+ There is [...] margin was less than 1 mm posteriorly. Maxbass lymph node biopsy showed macrometastasis and 1 of 4 lymph nodes size of the largest manjit metastatic deposit was 4 mm. There was extranodal extension present 2 mm or less. [id number] 08/29/2023 return to OR for reexcision, no [...] Fall Precaution Measures Taken: Patient in chair [facility] Medical History Medical History Diabetes Osteopenia Invasive ductal carcinoma of left breast Left breast cancer with T3 tumor, >5 cm in greatest dimension Ingrown right greater toenail removed Ingrown left greater toenail removed Fibrocystic breast determined by biopsy Vaginal atrophy Anacortes use Elevated fasting glucose Former smoker Depression [...] DD/ 6 Signed By: <Electronically signed by Guarav Jaime MD> 01/03/24 1437 [facility] Work Phone: Progress note Author Christine Velazquez [facility] Note Date/Time May 23, 2024 1 2:13pm [facility] [place] [address] Cancer Center Note Signed Patient: Melony Manley MR#: [id number] : 1965 Acct:[id number] Age/Sex: 59 / F Type: REG AMB [...] of 4 lymph node for invasive cancer. ER/WV reported from the 03/20/2023 core biopsy to be ER 100% positive, PER 60% positive and HER2 manolo 2+ by IHC, negative by FISH, Ki 67 low 5%. Surgical pathology report is not dictating the status of the ER, WV and HER2/manolo. Initial consult for medical oncology on 09/21/2023: We went over her new diagnosis of new left breast invasive ductal carcinoma, stage IIa, and we went over and discussed possible options of treatment based on the ER, WV and HER2/manolo status considering that she has [...] She had DEXA scan in 07/2022 at [facility]. It revealed osteopenia with Tscore [...] recurrence, which she would like done at [place]. We will call with results. Otherwise she [...] bone density scan was in 07/2022 at [facility],next one will be 07/2024. She will need screening mammogram as well every March. For her mild chronic thrombocytopenia, it may be related to Anacortes and Seroquelbut will monitor her CBC, CMP, [...] is reported in the surgeon note as ER/WV positive and HER2/manolo pending however there are [...] not report any status of the ER, WV and HER2/manolo, however Dr. García note to dictate that patient was ER/WV positive and HER2/manolo was pending. Left breast [...] nipple 08/01/23 Lumpectomy path: Pathological Diagnosis A. Maxbass node, left axilla, biopsy: Metastatic carcinoma to [...] Examined (sentinel and non-sentinel): 4 Number of Maxbass Nodes Examined: 4 pTNM CLASSIFICATION (AJCC 8th [...] it was ER positive on the percent, WV +60%, low Ki-67 of only 5%, HER2 [...] She had DEXA scan in 07/2022 at [facility]. It revealed osteopenia with Tscore [...] up with labs for review. Taking Letrzole. [facility] Medical History Medical History Diabetes Osteopenia Invasive ductal carcinoma of left breast Left breast cancer with T3 tumor, >5 cm in greatest dimension Ingrown right greater toenail removed Ingrown left greater toenail removed Fibrocystic breast determined by biopsy Vaginal atrophy Anacortes use Elevated fasting glucose Former smoker Depression [...] signed by Christine Velazquez MD> 05/23/24 1213 [facility] Work Phone: Advance Directives Advance Directive Response [...] inoma of left breast (C50.912) Referral Organization [facility] Referring Provider First Name Susan Referring Provider Last Name Jamie Referring Provider Specialty Family [facility] Referred Organization [facility] Referred Provider Geraldo García Referred Address ,[place], [place],[address] Referred Provider Specialty Surgery Referral Priority Routine [...] 10:38am UC follow up, not feeling better [facility] 2023 2:36pm Reason for Visit Admit Date Invasive ductal carcinoma of left breast January 03, 2024 1:43pm Invasive ductal carcinoma of left breast February 15, 2024 12:46pm Osteopenia February 15, 2024 1 2:46pm Right arm pain February 20, 2024 1 0:22am Type 2 diabetes mellitus with hyperglyce [facility] February 20, 2024 10:22am Right acute otitis [...] 10:38am UC follow up, not feeling better [facility] 2023 2:36pm April 16, 2024 12:53pm Cough/COVID- May 17, 2024 1 1:14am Reason for Visit Admit Date Right arm pain February 20, 2024 1 0:22am Type 2 diabetes mellitus with hyperglyce [facility] February 20, 2024 10:22am Right acute otitis [...] 10:25am UC follow up, not feeling better [facility] 2023 2:36pm May 14, 2024 12 :00pm [...] 10:25am UC follow up, not feeling better [facility] 2023 2:36pm May 14, 2024 12 :00pm [...] End: March 16, 2024 BELLE Hdez RN TECHNOLOGY TRAINER-C Attending Provider Active Start: March 16, 2024 [...] Attending Provider Active Start: December 04, 2023 Jacquard Loom Heddles Tier Relationship Specialty Start Date End Date Susan Ayala MD [address] [facility] [place] [phone] PCP - General Family Medicine 03/15/23 Jacquard Loom Heddles Tier Relationship Specialty Start Date End Date Susan Ayala MD [address] [facility] [place] [phone] PCP - General Family Medicine 03/15/23 Team [...] March 25, 2024 End: March 25, 2024 Jacquard Loom Heddles Tier Relationship Specialty Start Date End Date Susan Ayala MD [address] [facility] [place] [address] PCP - General Family Medicine 03/15/23 Jacquard Loom Heddles Tier Relationship Specialty Start Date End Date Susan Ayala MD [address] [facility] [place] [phone] PCP - General Family Medicine 03/15/23 Jacquard Loom Heddles Tier Relationship Specialty Start Date End Date Susan Ayala MD [address] [facility] [place] [phone] PCP - General Family Medicine 03/15/23 Jacquard Loom Heddles Tier Relationship Specialty Start Date End Date Susan Ayala MD [address] [facility] [place] [phone] PCP - General Family Medicine 03/15/23 Jacquard Loom Heddles Tier Relationship Specialty Start Date End Date Susan Ayala MD [address] [facility] [place] [phone] PCP - General Family Medicine 03/15/23 Team [...] content) DATE CREATED AUTHOR 09/02/2022 [facility] pital DATE CREATED AUTHOR AUTHOR'S ORGANIZ ATION 07/07/2023 [facility] ospital DATE CREATED AUTHOR AUTHOR'S ORGANIZ ATION 03/09/2024 [facility] EPIC DATE CREATED AUTHOR AUTHOR'S ORGANIZ ATION 05/26/2024 [facility] FOR RECORDS PERTAINING TO PATIENTS [...] BE BASED ON THE PRIMARY CLINICAL RECORDS. [facility]. provides no warranty or guarantee of the accuracy or completeness of information in this document.
[2024-06-11 10:12] LABS: Estimated Average Glucose 140 mg/dL; Glycohemoglobin A1C 6.5 % (4.5-6.2)
== END 2024-06-11 09:22 | disposition home or self-care (01) ==
LOC: LAB 09:22
PROVIDERS: PCP Family Medicine; Visit Provider Family Medicine
DX: Z79.899 Other long term (current) drug therapy (principal); E11.65 Type 2 diabetes mellitus with hyperglycemia; F31.89 Other bipolar disorder
CPT/HCPCS: 36415; 80178; 82565; 83036; 84443

== ENCOUNTER 2024-08-02 15:19 | Outpatient (OUT) | payer MEDICARE, MEDICAID, SELFPAY ==
[2024-08-02 16:05] LABS: Basophils Absolute Auto 0.1 10^3/uL (0.0-0.1); Basophils Percent Auto 0.6 % (0.2-2.0); Eosinophils Percent Auto 0.1 % (0.9-7.0); Hematocrit 41.3 % (36.0-48.0); Immature Granulocytes Abs Auto 0.02 10^3/uL (0.00-0.03); Immature Granulocytes Pct Auto 0.2 % (0.0-0.5); Lymphocytes Absolute Auto 1.9 10^3/uL (1.2-3.8); Lymphocytes Percent Auto 20.9 % (20.5-60.0); Mean Corpuscular HGB Conc 31.5 g/dL (29.9-35.2); Mean Corpuscular Volume 88.8 fL (81.0-99.0); Monocytes Absolute Auto 0.5 10^3/uL (0.3-0.8); Monocytes Percent Auto 5.8 % (1.7-12.0); Neutrophils Absolute Auto 6.5 10^3/uL (1.4-6.5); Neutrophils Percent Auto 72.4 % (43.0-75.0); Platelet Count 144 10^3/uL (150-450); Red Blood Count 4.65 10^6/uL (4.20-5.40); Red Cell Distribution Width 14.3 % (11.0-15.0); White Blood Count 8.9 10^3/uL (4.0-11.0)
[2024-08-02 16:18] LABS: Alanine Aminotransferase 38 U/L (14-59); Albumin Globulin Ratio 1.1; Albumin Level 3.9 g/dL (3.4-5.0); Alkaline Phosphatase 91 U/L (46-116); Anion Gap 13.2; Aspartate Amino Transferase 27 U/L (15-37); BUN Creatinine Ratio 14.4; Bilirubin Total 0.2 mg/dL (0.2-1.0); Calcium 9.5 mg/dL (8.5-10.1); Carbon Dioxide 27.6 mmol/L (21.0-32.0); Chloride 104 mmol/L (98-107); Estimated GFR (African America >60 (>=60 mL/min/1.73m^2); Estimated GFR (Non-African Ame 50 (>=60 mL/min/1.73m^2); Globulin 3.6 g/dL; Glucose 119 mg/dL (74-106); Potassium 3.8 mmol/L (3.5-5.1); Sodium 141 mmol/L (136-145); Total Protein 7.5 g/dL (6.4-8.2)
== END 2024-08-02 15:20 | disposition home or self-care (01) ==
LOC: RAD 15:19
PROVIDERS: PCP Physician Assistant; Visit Provider Internal Medicine
DX: C50.912 Malignant neoplasm of unspecified site of left female breast (principal); M85.80 Other specified disorders of bone density and structure, unspecified site; Z78.0 Asymptomatic menopausal state; N18.30 Chronic kidney disease, stage 3 unspecified
CPT/HCPCS: 36415; 77080; 80053; 82043; 82570; 85025

== ENCOUNTER 2024-08-02 15:44 | Outpatient (OUT) | payer MEDICARE, MEDICAID, SELFPAY ==
--- OUTSIDE RECORDS SUMMARY | 2024-08-02 16:08 | XMS_ITS | CCD ---
Author Organization [facility] Care Team Providers Care Enrichment Teacher Name Role Phone MD Susan Ayala Attending Provider [phone] ., DR FITCH Admitting Unavailabl e [...] Ayala Unavailable DO Geraldo García Attending Provider [phone] MD Susan Ayala Primary Care Provider ADAMA GARCÍA Referring Unavailable SUSAN AYALA Primary Care Unavailable Itzkowitz, DO Geraldo Attending Provider MD Susan Ayala Primary Care Provider Itzviraj, DO Geraldo Attending Provider [phone] MD Susan Ayala Primary Care Provider MD Gavin Plaza Attending Provider MD Gavin Plaza Attending Provider [phone] MD Susan Ayala Primary Care Provider Itruby, DO Geraldo Attending Provider MD Gavin Plaza Attending Provider MD Christine Velazquez Attending Provider Itzviraj, DO Geraldo Referring Provider [phone] MD Susan Ayala Primary Care Provider Itruby, DO Geraldo Attending Provider MD Christine Velazquez Attending Provider [phone] Itruby, DO Geraldo Referring Provider [phone] MD Gavin Plaza Attending Provider MD Susan Ayala Primary Care Provider Marcus, DO Geraldo Referring Provider [phone] MD Gaurav Jaime Attending Provider DO Lisa Rubalcava L Attending Provider MD Susan Ayala Primary Care Provider MD Gavin Plaza Attending Provider MD Christine Velazquez Attending Provider Marcus, DO Geraldo Referring Provider MD Christine Velazquez Attending Provider Itzkowitz, DO Geraldo Referring Provider MD Gavin Plaza Attending Provider [phone] MD Christine Velazquez Attending Provider Itzkowitz, DO Geraldo Referring Provider Susan Ayala MD Primary Care Provider GILSON KENYON Attending Unavailable ITZKOWITZ, GERALDO H Attending Unavailable CHEL JOSEPH Attending Unavailable ITZKOWITZ, GERALDO H Attending Unavailable ARTI KENYONS A Attending Unavailable ITZKOWITZ, GERALDO H Attending Unavailable ITZKOWITZ, GERALDO H Attending Unavailable SUSAN AYALA Referring Unavailable ITZKOWITZ, GERALDO H Attending Unavailable ITZKOWITZ, GERALDO H Attending Unavailable ITZKOWITZ, GERALDO H Attending Unavailable GILSON KENYON Attending Unavailable ITZKOWITZ, GERALDO H Attending Unavailable ARTI KENYONS A Attending Unavailable ARTI KENYONS A Attending Unavailable Susan Ayala MD Primary Care Provider Caroline SEPULVEDA, Christine Amaya Attending Provider [phone] Itzkowitz DO, Geraldo Referring Provider [phone] Gavin Plaza MD Attending Provider Susan Ayala MD Primary Care Provider Christine Velazquez MD Attending Provider Itzkowitz DO, Geraldo Referring Provider Gavin Plaza MD Attending Provider Gavin Plaza MD Attending Provider Susan Ayala MD Primary Care Provider Christine Velazquez MD Attending Provider Itzkowitz DO, Geraldo Referring Provider Christine Velazquez Admitting Unavailabl e Christine Velazquez Attending Unavailabl e Itzkowitz, Geraldo Referring Unavailable Susan Ayala Primary Care Unavailable Susan Ayala E Primary Care Unavailable Itzkowitz, Geraldo Admitting Unavailable Itzkowitz, Geraldo Attending Unavailable Itzkowitz, Geraldo Admitting Unavailable Itzkowitz, Geraldo Attending Unavailable Susan Ayala E Primary Care Unavailable Ly, Lisa L Admitting Unavailable Ly, Lisa L Attending Unavailable Ayala, Susan E Primary Care Unavailable Susan Ayala E Primary Care Unavailable Itzkowitz, Geraldo Admitting Unavailable Itzkowitz, Geraldo Attending Unavailable Gavin Plaza Admitting Unavailab Gavin Leyva Attending Unavailab Susan Rice MD Primary Care Provider Christine Velazquez MD Attending Provider Barryzviraj SPIVEY, Geraldo Referring Provider [phone] Gavin Plaza MD Attending Provider Allergies Allergy Classification Reported Allergen(s) Allergy Type Date of Onset Reaction(s) Facility Cephalosporins (antibiotic) (1 source) Cephalosporins (Antibiotic) Drug Allergy 10-11-19 [address] [facility] Penicillins (antibiotic) (1 source) Penicillins Drug Allergy 10-11-19 24 Swelling of Lip/Tongue/Thro at [facility] (9 sources) cefdinir Drug Allergy Unknown [facility] Other (15 sources) Penicillin Drug Allergy halucination and swallowing dificulty [facility] Other (20 sources) Penicillins Drug allergy (disorder) 05-08-18 76 Swelling of Lip/Tongue/Thro at [facility] (10 sources) Medicinal cephalosporin and acting as antibacterial agent (FN) Drug allergy Unknown [facility] Other (10 sources) Ceftin *CEPHALOSPORINS* Propensity to adverse reactions Unknown [facility] Other (20 sources) Cephalosporins (Antibiotic); Translations: [Cephalosporins] Allergy to substance 07-19-19 24 Unknown Reaction [facility] (9 sources) Penicillins Drug Allergy 03-09-20 23 Other [facility] (2 sources) Penicillins Drug allergy (disorder) 07-19-[address] [facility] Rep[facility] Medications Current Medications Medication Drug Class(es) Dates Sig (Normalized) Sig (Original) alendronic acid 70 mg oral tablet (20 sources) Bisphosphonate Start: 09-21-2023 take 1 tablet by mouth every week Alendronate 70 mg tablet Active 70 MG PO every week September 21, 2023 12:00am Start: 05-02-2023 End: 08-11-2023 take 1 tablet [...] (Astepro Allergy) 205.5 mcg (0.15 %) spray,non-aerosol (11 sources) Start: 04-22-2024 take 1 spray(s) nasal route once daily Azelastine (Astepro Allergy) 205.5 mcg (0.15 %) spray,non-aerosol Active 2 SPRAY INTRANASAL Daily April 22, 2024 12:38pm administer into each nostril Start: 04-22-2024 take 1 spray(s) nasa l route once daily Azelastine (Astepro Allergy) 205.5 mcg (0.15 %) spray,non-aerosol Active 2 SPRAY INTRANASAL Daily April 22, 2024 11:38am administer into each nostril Start: 03-25-2024 End: 04-22-2024 take 1 spray(s) nasal route once daily Azelastine (Astepro Allergy) 205.5 mcg (0.15 %) spray,non-aerosol Discontinued 2 SPRAY INTRANASAL Daily March 25, 2024 1:00am April 22, 2024 12:38pm administer into each nostril Start: 03-25-2024 End: [...] 2023 12:00am Start: 07-10-2023 End: 07-11-2023 take 1 tablet by mouth once daily Buspirone 5 mg tablet Discontinued 5 MG PO Daily July 10, 2023 1:00am July 11, 2023 3:36pm take 1 tablet by missy th every twenty-four hours busPIRone HCl 5 MG 1 tablet once a day Active calcium carbonate 1250 mg chewable tablet (11 sources) Start: 02-15-2024 take 1 tablet by mouth once daily Calcium Carbonate (Calcium 500) 500 mg calcium (1,250 mg) tablet,chewable Active 500 MG PO Daily February 15, 2024 12:00am cholecalciferol 0.025 mg oral capsule (20 sources) Vitamin D Start: 03-16-2024 take 1 capsule by mouth once daily Cholecalciferol (Vitamin D3) 25 mcg (1,000 unit) capsule Active 50 MCG PO Daily March 16, 2024 10:17am Start: 02-15-2024 End: 03-16-2024 take 1 capsule by mouth once daily Cholecalciferol (Vitamin D3) 25 mcg (1,000 unit) capsule Discontinued 25 MCG PO Daily February 15, 2024 12:00am March 16, 2024 10:18am ciprofloxacin 3 mg/ml ophthalmic solution (2 sources) Quinolone Antimicrobial Start: 06-11-2024 Ciprofloxacin Hcl 0.3 % drops Active 0 OPHTHALMIC .COMPLEX June 11, 2024 1:00am put 1-2 drps in affected eye(s) every 2hr up to 8 times/day x2days; then 4 times/day x5days Eye-Both gabapentin 300 mg oral capsule (13 sources) Anti-epileptic Agent Start: 05-23-2024 take 1 capsule by mouth once daily at bedtime Gabapentin 300 mg capsule Active 300 MG PO Daily at bedtime 60 May 23, 2024 1:00am Start: 02-21-2024 End: 03-16-2024 take 1 capsule by mouth once daily at bedtime Gabapentin (Neurontin) 300 mg capsule Discontinued 300 MG PO Daily at bedtime 90 February 21, 2024 12:00am March 16, 2024 10:17am lithium carbonate 450 mg extended release oral tablet (20 sources) Start: 12-27-2022 take 1 tablet by mouth once daily in the evening [place] Carbonate 450 mg tablet extended release Active 450 MG PO Every evening May 02, 2023 1:00am [place] Carbonat e 450 mg 2 tablets QHS [...] 11, 2023 10:51am October 31, 2023 8:37am QUEtiapine 200 mg oral tablet (20 sources) [...] 11, 2023 10:51am October 31, 2023 8:37am sulfamethoxazole 800 mg / trimethoprim 160 mg oral tablet (5 sources) Dihydrofolate Reductase Inhibitor Antibacterial, Sulfonamide Antimicrobial Start: 05-17-2024 take 1 tablet by mouth twice daily Sulfamethoxazole-Trimethoprim 800-160 mg tablet Active 1 TAB PO Twice daily May 17, 2024 1:00am Completed/Discontinued Medications Medication Drug Class(es) Dates Sig (Normalized) Sig (Original) acetaminophen 300 mg / codeine phosphate 30 mg oral tablet (19 sources) Opioid Agonist Start: 08-01-2023 End: 08-11-2023 take 1 tablet by mouth every six hours as needed for pain Acetaminophen-Code ine 300-30 mg tablet Discontinued 1 TAB PO Every 6 hours as needed for pain 24 09August 01, 2023 12:00am August 11, 2023 10:44am doxycycline monohydrate 100 mg oral capsule (8 sources) Tetracycline-class Drug Start: 03-16-2024 End: 05-17-2024 take 1 capsule by mouth twice daily Doxycycline Monohydrate 100 mg capsule Discontinued 100 MG PO Twice daily 18 11March 16, 2024 1:00am May 17, 2024 12:20pm fenofibrate 200 mg oral capsule (5 sources) [...] Start: 01-09-2024 take 1 tablet by missy once daily Glipizide Active 0 .ROUTE .COMPLEX [...] 25, 2023 9:49pm January 09, 2024 1:14pm ibuprofen 600 mg oral tablet (17 sources) Nonsteroidal Anti-inflammatory Drug Start: 08-29-2023 End: 11-20-2023 take 4 tablets by mouth every twenty-four hours for pain Ibuprofen 600 mg tablet Discontinued 600 MG PO EVERY 4-6 HOURS as needed for pain 24 09August 29, 2023 12:00am November 20, [...] tablet Discontinued 2.5 MG PO Daily February 15, 2024 12:00am February 21, 2024 2:59pm levoFLOXacin 500 mg oral tablet (5 sources) Quinolone Antimicrobial take 1 tablet by mouth every twenty-four hours levoFLOXacin 500 MG 1 tablet Orally Once a day Not-Taking levothyroxine sodium 0.075 mg oral tablet (20 sources) l-Thyroxine Start: 08-08-2023 End: 02-19-2024 take 1 tablet by mouth once daily in the morning Levothyroxine 75 mcg tablet Discontinued 0 .ROUTE .COMPLEX October 31, 2023 8:37am February 19, 2024 10:36pm TAKE 1 TABLET BY MOUTH EVERY DAY [...] Not-Taking mometasone furoate 1 mg/ml topical cream (14 sources) Corticosteroid Start: 11-03-2023 End: 12-21-2023 Mometasone 0.1 % cream Discontinued 1 APPLIC TOPICAL Daily November 03, 2023 12:00am December 21, 2023 9:58am Apply to radiation site, once a day, AFTER radiation treatments. tamoxifen 20 mg oral tablet (13 sources) Estrogen Agonist/Antagonist Start: 12-21-2023 End: 01-03-2024 take 1 tablet by mouth once daily Tamoxifen 20 mg tablet Discontinued 20 MG PO Daily December 21, 2023 12:00am January 03, 2024 1:59pm traZODone hydrochloride 50 mg oral tablet (20 sources) Serotonin Reuptake Inhibitor Start: 11-20-2023 End: 03-16-2024 Trazodone 50 mg tablet Discontinued 25 MG PO Bedtime November 20, 2023 12:00am March 16, 2024 10:16am Start: 11-20-2023 take 25 mg by mouth [...] venlafaxine 37.5 mg extended release oral capsule (13 sources) Serotonin and Norepinephrine Reuptake Inhibitor Start: [...] that caused by tuberculosis or sexually transmitteddisease) (4 sources) Bacterial conjunctivitis; Translations: [Unspecified conjunctivitis] 06-11-2024 [...] current use of drug therapy; Translations: [Other custodial (current) drug therapy] Episodic Other aftercare (3 sources) Other intermediate project manager (current) drug therapy; Translations: [OTH LENS EDGER 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 THERAPY] Onset: 04-18-2022 Episodic Other [...] upper arm] Episodic Other connective tissue disease (15 sources) Pain in right arm; Translations: [Pain [...] sinusitis, unspecified] Chronic Other upper respiratory infections (18 sources) Acute maxillary sinusitis; Translations: [Acute recurrent [...] Test Name Value Interpretation Reference Range Facility Estimated glomerular filtrat ion rate (GFR) non- Americanon 06-11-2024 GFR/1.73 sq M.predicted among non-blacks MDRD (S/P/Bld) [Vol rate/Area] Estimated glomerular filtration rate (GFR) non- Low >=60 mL/min/1.73 m [address] [facility] Glucose mean value [Mass/vol ume] in Blood Estimated from glycated hemoglobinon 06-11-2024 Average glucose Estimated from glycated hemoglobin (Bld) [Mass/Vol] Glucose mean value [Mass/volume] in Blood Estimated from glycated hemoglobin [facility] Hemoglobin A1c percentageon 06-11-2024 HbA1c (Bld) [Mass fraction] Hemoglobin A1c percentage High 4.5-6.[address] [facility] Comment on above: ADA RECOMMENDED LIMI T 4.0 - 6.0ADA THERAPEUTIC TARGET < 7.0ACTION SUGGESTED> 7.0 Laboratory - Chemistry and C hemistry - challengeon 06-11-2024 Creatinine [Mass/Vol] 1.09 mg/dL High 0.55-1.[address] [facility] GFR/1.73 sq M.predicted MDRD (S/P/Bld) [Vol rate/Area] mL/min/{1.73_m2} >=60 mL/min/1.73 m [address] [facility] TSH Qn 0.313 m[IU]/L Low 0.358-3.[address] [facility] No Panel Informationon 06-11 [place] Level 0.8 mmol/L 0.5-1.[address] [facility] Comment on above: A concentration of 0 .5-0.8 mmol/L is advised for long-termuse; concentrations of up to 1.2 mmol/L may be necessaryduring acute treatment. Detection Limit = 0.1 <0.1 indicates None DetectedPerformed at: CB - [id number] [place], [place] [id number] Director: Wojciech Farah PhD, Phone: [phone] Basophils Auto (Bld) [#/Vol] on 05-15-2024 Basophils (Bld) [#/Vol] Automated basoph il count 0.0-0.[address] [facility] Basophils/100 WBC Auto (Bld) on 05-15-2024 Basophils/100 WBC (Bld) Automated basophil % 0. 2-2.[address] [facility] Eosinophils/100 WBC Auto (Bl d)on 05-15-2024 Eosinophils/100 WBC (Bld) Automated eosinophil % 0.9-7.[address] [facility] Erythrocyte distribution wid th Auto (RBC) [Ratio]on 05-15-2024 Erythrocyte distribution width (RBC) [Ratio] Erythrocyte distribution width [Ratio] by Automated count 11.0-15.[address] [facility] Estimated glomerular filtrat ion rate (GFR) non- Americanon 05-15-2024 GFR/1.73 sq M.predicted among non-blacks MDRD (S/P/Bld) [Vol rate/Area] Estimated glomerular filtration rate (GFR) non- Low >=60 mL/min/1.73 m [address] [facility] Globulin Calc (S) [Mass/Vol] on 05-15-2024 Globulin (S) [Mass/Vol] Serum globulin measurement by calculation (mass/volume) [facility] Hematocrit Auto (Bld) [Volum e fraction]on 05-15-2024 Hematocrit (Bld) [Volume fraction] Hematocrit [Volume Fraction] of Blood by Automated count 36.0-48.[address] [facility] Hemoglobin [Mass/volume] in Bloodon 05-15-2024 Hemoglobin (Bld) [Mass/Vol] Hemoglobin [Mass/volume] in Blood 12.0-16.[address] [facility] Laboratory - Chemistry and C hemistry - challengeon 05-15-2024 Albumin [Mass/Vol] 4.0 g/dL 3.4-5.0 [facility] ALP [Catalytic activity/Vol] 105 U/L 46-[address] [facility] ALT [Catalytic activity/Vol] 38 U/L 14-[address] [facility] AST [Catalytic activity/Vol] 27 U/L 15-[address] [facility] Bilirubin [Mass/Vol] 0.5 mg/dL 0.2-1.0 [facility] Calcium [Mass/Vol] 10.3 mg/dL High 8.5-10.1 [facility] Chloride [Moles/Vol] 106 mmol/L 98-107 [facility] CO2 [Moles/Vol] 26.9 mmol/L 21.0-32.0 [facility] Creatinine [Mass/Vol] 1.06 mg/dL High 0.55-1.[address] [facility] GFR/1.73 sq M.predicted MDRD (S/P/Bld) [Vol rate/Area] mL/min/{1.73_m2} >=60 mL/min/1.73 m [address] [facility] Glucose [Mass/Vol] 174 mg/dL High 74-106 [facility] LDH [Catalytic activity/Vol] 154 U/L 81-[address] [facility] Potassium [Moles/Vol] 4.3 mmol/L 3.5-5.[address] [facility] Protein [Mass/Vol] 7.4 g/dL 6.4-8.2 [facility] Sodium [Moles/Vol] 145 mmol/L 136-145 [facility] Urea nitrogen [Mass/Vol] 12.0 mg/dL 7.0-18.[address] [facility] Urea nitrogen/Creatinine [Mass ratio] 11.3 mg/mg [facility] Laboratory - Hematology and Cell countson 05-15-2024 Immature granulocytes/100 WBC (Bld) 0.5 % 0.0-0.[address] [facility] Leukocytes [#/volume] correc cori for nucleated erythrocytes in Blood by Automated counon 05-15-2024 WBC corrected for nucl RBC Auto (Bld) [#/Vol] Leukocytes [#/volume] corrected for nucleated erythrocytes in Blood by Automated coun 4.0-11.[address] [facility] Lymphocytes Auto (Bld) [#/Vo l]on 05-15-2024 Lymphocytes (Bld) [#/Vol] Lymphocytes [#/volume] in Blood by Automated count 1.2-3.[address] [facility] Lymphocytes/100 WBC Auto (Bl d)on 05-15-2024 Lymphocytes/100 WBC (Bld) Lymphocytes/100 leukocytes in Blood by Automated count 20.5-60.[address] [facility] MCH Auto (RBC) [Entitic mass ]on 05-15-2024 MCH (RBC) [Entitic mass] MCH [Entitic mass] by Automated count 26.7-34.[address] [facility] MCHC Auto (RBC) [Mass/Vol]on 05-15-2024 MCHC (RBC) [Mass/Vol] MCHC [Mass/volume] by Automated count 29.9-35.[address] [facility] MCV Auto (RBC) [Entitic vol] on 05-15-2024 MCV (RBC) [Entitic vol] MCV [Entitic vol ume] by Automated count 81.0-99.[address] [facility] Monocytes Auto (Bld) [#/Vol] on 05-15-2024 Monocytes (Bld) [#/Vol] Automated blood monocyte count 0.3-0.[address] [facility] Monocytes/100 WBC Auto (Bld) on 05-15-2024 Monocytes/100 WBC (Bld) Automated monocyte % 1. 7-12.[address] [facility] Neutrophils Auto (Bld) [#/Vo l]on 05-15-2024 Neutrophils (Bld) [#/Vol] Neutrophils [#/volume] in Blood by Automated count 1.4-6.[address] [facility] Neutrophils/100 WBC Auto (Bl d)on 05-15-2024 Neutrophils/100 WBC (Bld) Automated neutrophil % 43.0-75.[address] [facility] No Panel Informationon 05-15 Eosinophils # (Auto) 0.2 10 3/uL 0.0-0.[address] [facility] Immature Granulocyte # (Auto) 0.03 10 3/uL 0.00-0.[address] [facility] Miscellaneous Test COMMENT . [facility] Comment on above: Test Ordered: [id number] Platelet Antibody ProfileHLA Class 1 Antibody Negative BN Reference Range: NegativeIIb/IIIa Antibody Negative BN Reference Range: NegativeIb/IX Antibody Negative BN Reference Range: NegativeIa/IIa Antibody Negative BN Reference Range: NegativeGlycoprotein IV Antibody Negative BN Reference Range: NegativePerformed at: BN - [facility] [address] [id number] Director: Carlos Alberto Goss MD, Phone: [phone] at: CB - [facility] [id number] [place], [place] [id number] Director: Wojciech Farah PhD, Phone: [phone] Platelet mean volume Auto (B ld) [Entitic vol]on 05-15-2024 Platelet mean volume (Bld) [Entitic vol] Platelet mean volume [Entitic volume] in Blood by Automated count 9.5-13.[address] [facility] Platelets Auto (Bld) [#/Vol] on 05-15-2024 Platelets (Bld) [#/Vol] Platelets [#/vol ume] in Blood by Automated count Low 150-[address] [facility] RBC Auto (Bld) [#/Vol]on RBC (Bld) [#/Vol] Erythrocytes [#/volu me] in Blood by Automated count 4.20-5.[address] [facility] Serum or plasma albumin/glob ulin mass ratioon 05-15-2024 Albumin/Globulin [Mass ratio] Serum or plasma albumin/globulin mass ratio [facility] Serum or plasma anion gap de terminationon 05-15-2024 Anion gap [Moles/Vol] Serum or plasma an ion gap determination [facility] Auditory function testson Right Ear: Mild sensorineural hearing loss from 250 Hz - 1K Hz rising to normal hearing from 2K Hz - 3K Hz. Mild to moderate sensorineural hearing loss above 3K Hz Left Ear: Mild sensorineural hearing loss at 8K Hz only [facility] COVID Cepheidon 03-16-2024 SARS-CoV-2 (COVID-19) RNA HIMANSHU+probe Ql (Unsp spec) COVID Cepid [facility] Laboratory - Microbiology an d Antimicrobial susceptibilityon 03-16-2024 SARS-CoV-2 (COVID-19) RNA HIMANSHU+probe Ql (Unsp spec) Negative [facility] No Panel InformationOrdered By: Valencia Boyd on 03-16-2024 Quick Strep (POC) [facility] No Panel Informationon 03-16 POC Influenza A (PCR) Negative [facility] POC Influenza B (PCR) Negative [facility] HbA1c HPLC (Bld) [Mass fract ion]on 02-20-2024 HbA1c (Bld) [Mass fraction] Hemoglobin A1c/Hemoglobin.total in Blood by HPLC [facility] Globulin Calc (S) [Mass/Vol] on 02-08-2024 Globulin (S) [Mass/Vol] 3.6 g/dL [facility] Globulin (S) [Mass/Vol] Serum globulin measurement by calculation (mass/volume) [facility] Laboratory - Chemistry and C hemistry - challengeon 02-08-2024 Albumin [Mass/Vol] 4.0 g/dL 3.4-5.0 [facility] ALP [Catalytic activity/Vol] 104 U/L 46-[address] [facility] ALT [Catalytic activity/Vol] 37 U/L 14-[address] [facility] AST [Catalytic activity/Vol] 29 U/L 15-[address] [facility] Bilirubin [Mass/Vol] 0.4 mg/dL 0.2-1.0 [facility] Bilirubin.direct [Mass/Vol] 0.1 mg/dL 0.0-0.[address] [facility] Protein [Mass/Vol] 7.6 g/dL 6.4-8.2 [facility] Serum or plasma albumin/glob ulin mass ratioon 02-08-2024 Albumin/Globulin [Mass ratio] 1.1 {ratio} [facility] Albumin/Globulin [Mass ratio] Serum or plasma albumin/globulin mass ratio [facility] Basophils Auto (Bld) [#/Vol] on 12-22-2023 Basophils (Bld) [#/Vol] 0.0 10 3/uL 0.0-0.[address] [facility] Basophils/100 WBC Auto (Bld) on 12-22-2023 Basophils/100 WBC (Bld) 0.2 % 0.2-2.[address] [facility] Eosinophils/100 WBC Auto (Bl d)on 12-22-2023 Eosinophils/100 WBC (Bld) 0.0 % Low 0.9-7.[address] [facility] Erythrocyte distribution wid th Auto (RBC) [Ratio]on 12-22-2023 Erythrocyte distribution width (RBC) [Ratio] 13.9 % 11.0-15.[address] [facility] Estimated glomerular filtrat ion rate (GFR) non- Americanon 12-22-2023 GFR/1.73 sq M.predicted among non-blacks MDRD (S/P/Bld) [Vol rate/Area] 52 mL/min/{1.73_m2} Low >=[address] [facility] Globulin Calc (S) [Mass/Vol] on 12-22-2023 Globulin (S) [Mass/Vol] 3.3 g/dL [facility] Hematocrit Auto (Bld) [Volum e fraction]on 12-22-2023 Hematocrit (Bld) [Volume fraction] 42.6 % 36.0-48.[address] [facility] Hemoglobin [Mass/volume] in Bloodon 12-22-2023 Hemoglobin (Bld) [Mass/Vol] 13.1 g/dL 12.0-16.[address] [facility] Iron binding capacity [Mass/ volume] in Serum or Plasmaon 12-22-2023 Iron binding capacity [Mass/Vol] 324.0 ug/dL 250.0-450.[address] [facility] Iron saturation [Mass Fracti on] in Serum or Plasmaon 12-22-2023 Iron saturation [Mass fraction] 18.5 % [facility] Laboratory - Chemistry and C hemistry - challengeon 12-22-2023 Albumin [Mass/Vol] 4.1 g/dL 3.4-5.0 [facility] ALP [Catalytic activity/Vol] 101 U/L 46-[address] [facility] ALT [Catalytic activity/Vol] 42 U/L 14-[address] [facility] AST [Catalytic activity/Vol] 35 U/L 15-[address] [facility] Bilirubin [Mass/Vol] 0.4 mg/dL 0.2-1.0 [facility] Calcium [Mass/Vol] 10.0 mg/dL 8.5-10.1 [facility] Chloride [Moles/Vol] 107 mmol/L 98-107 [facility] CO2 [Moles/Vol] 27.1 mmol/L 21.0-32.0 [facility] Cobalamin (Vitamin B12) [Mass/Vol] 382.0 pg/mL 193.0-986.[address] [facility] [facility] Creatinine [Mass/Vol] 1.07 mg/dL High 0.55-1.[address] [facility] Ferritin [Mass/Vol] 312.0 ng/mL High 8.0-252.0 [facility] GFR/1.73 sq M.predicted MDRD (S/P/Bld) [Vol rate/Area] mL/min/{1.73_m2} >=[address] [facility] Glucose [Mass/Vol] 143 mg/dL High 74-106 [facility] Iron [Mass/Vol] 60.0 ug/dL 50.0-170.[address] [facility] Potassium [Moles/Vol] 5.0 mmol/L 3.5-5.[address] [facility] Protein [Mass/Vol] 7.4 g/dL 6.4-8.2 [facility] Sodium [Moles/Vol] 143 mmol/L 136-145 [facility] Urea nitrogen [Mass/Vol] 13.0 mg/dL 7.0-18.[address] [facility] Urea nitrogen/Creatinine [Mass ratio] 12.1 mg/mg [facility] Laboratory - Hematology and Cell countson 12-22-2023 Immature granulocytes/100 WBC (Bld) 0.2 % 0.0-0.[address] [facility] Leukocytes [#/volume] correc cori for nucleated erythrocytes in Blood by Automated counon 12-22-2023 WBC corrected for nucl RBC Auto (Bld) [#/Vol] 4.2 10 3/uL 4.0-11.[address] [facility] Lymphocytes Auto (Bld) [#/Vo l]on 12-22-2023 Lymphocytes (Bld) [#/Vol] 0.8 10 3/uL Low 1.2-3.[address] [facility] Lymphocytes/100 WBC Auto (Bl d)on 12-22-2023 Lymphocytes/100 WBC (Bld) 18.5 % Low 20.5-60.[address] [facility] MCH Auto (RBC) [Entitic mass ]on 12-22-2023 MCH (RBC) [Entitic mass] 27.8 pg 26.7-34.[address] [facility] MCHC Auto (RBC) [Mass/Vol]on 12-22-2023 MCHC (RBC) [Mass/Vol] 30.8 g/dL 29.9-35.[address] [facility] MCV Auto (RBC) [Entitic vol] on 12-22-2023 MCV (RBC) [Entitic vol] 90.4 fL 81.0-99.[address] [facility] Monocytes Auto (Bld) [#/Vol] on 12-22-2023 Monocytes (Bld) [#/Vol] 0.3 10 3/uL 0.3-0.[address] [facility] Monocytes/100 WBC Auto (Bld) on 12-22-2023 Monocytes/100 WBC (Bld) 8.1 % 1.7-12.[address] [facility] Neutrophils Auto (Bld) [#/Vo l]on 12-22-2023 Neutrophils (Bld) [#/Vol] 3.1 10 3/uL 1.4-6.[address] [facility] Neutrophils/100 WBC Auto (Bl d)on 12-22-2023 Neutrophils/100 WBC (Bld) 73.0 % 43.0-75.[address] [facility] No Panel Informationon 12-21 Eosinophils # (Auto) 0.0 10 3/uL 0.0-0.[address] [facility] Folate 8.60 ng/mL 8.60-58.[address] [facility] Immature Granulocyte # (Auto) 0.01 10 3/uL 0.00-0.[address] [facility] Platelet mean volume Auto (B ld) [Entitic vol]on 12-22-2023 Platelet mean volume (Bld) [Entitic vol] 10.1 fL 9.5-13.[address] [facility] Platelets Auto (Bld) [#/Vol] on 12-22-2023 Platelets (Bld) [#/Vol] 115 10 3/uL Low 150-[address] [facility] RBC Auto (Bld) [#/Vol]on RBC (Bld) [#/Vol] 4.71 10 6/uL 4.20-5.40 [facility] Serum or plasma albumin/glob ulin mass ratioon 12-22-2023 Albumin/Globulin [Mass ratio] 1.2 {ratio} [facility] Serum or plasma anion gap de terminationon 12-22-2023 Anion gap [Moles/Vol] 13.9 mmol/L [facility] Capillary blood glucose juan urement by glucometer (mass/volume)Ordered By: Lisa Rubalcava on 12-05-2023 Glucose [Mass/Vol] 98 mg/dL Normal [facility] Comment on above: Random Glucose Refer ence Range is dependent on time and content of last meal. Glucose of more than 200 mg/dL in a nonstressed, ambulatory subject supports the diagnosis of Diabetes Mellitus. Result Comment: [place] om Glucose Reference Range is dependent on time and content of last meal. Glucose of more than 200 mg/dL in a nonstressed, ambulatory subject supports the diagnosis of Diabetes Mellitus. Performed By: #### G LULS #### Point of Care testing , Glucose Poct Glucometerson 0 12-05-2023 Commemt1 Glu2: Cleaned Meter Normal [facility] Comment on above: Result Comment: PERF ORMED BY: [facility] [address] [place] [address] FORMS HUI NORTH M.D. Performed By: #### G LULS #### Point of Care testing , Yoan 12-05-2023 L Specimen: [id number] Received: 12/05/23 Status: WAN Beasley Num: [id number] Spec Type: Surgical Subm Dr: Lisa Rubalcava DO Tissues: A Colon Biopsy (SIGMOID POLYP) Procedures: HE/2, Gross/Micro L4 Age/ Patient Sex Location Account Attending Physician Melony Manley 58/F [id number] Lisa Rubalcava DO SPEC NUM: [id number] RECD: 12/05/23 STATUS: WAN BEASLEY NUM: [id number] MANGO: 12/05/23- SUBM DR: Lisa Rubalcava DO ENTERED: 12/05/23 [facility] DR: SPEC TYPE: Surgical DEPT: S ORDERED: /2, Gross/Micro L4 ORDERED: HE, Gross/Micro L4 Pathological Diagnosis Colon, 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 The specimen is trisected and entirely submitted in A1. CPT Codes 94533 Specimen: [id number] Received: 12/05/23 Status: WAN Gale Num: [id number] Spec Type: Surgical Subm Dr: Lisa Rubalcava DO Tissues: A Colon Biopsy (SIGMOID POLYP) Procedures: PAULINA, Gross/Micro L4 Patient: Melony Manley [id number] (Continued) Signed (signature on file) Ugo Brandt Jr., MD 12/06/23 1401 Normal [facility] No Panel InformationOrdered By: Lisa Rubalcava on 12-05-2023 Bedside Glucose Comment Glu2: cleaned meter [facility] Estimated glomerular filtrat ion rate (GFR) non- Americanon 11-15-2023 GFR/1.73 sq M.predicted among non-blacks MDRD (S/P/Bld) [Vol rate/Area] 52 mL/min/{1.73_m2} Low >=[address] [facility] Globulin Calc (S) [Mass/Vol] on 11-15-2023 Globulin (S) [Mass/Vol] 3.5 g/dL [facility] Laboratory - Chemistry and C hemistry - challengeon 11-15-2023 Albumin [Mass/Vol] 3.9 g/dL 3.4-5.0 [facility] ALP [Catalytic activity/Vol] 91 U/L 46-[address] [facility] ALT [Catalytic activity/Vol] 44 U/L 14-[address] [facility] AST [Catalytic activity/Vol] 40 U/L High 15-[address] [facility] Bilirubin [Mass/Vol] 0.4 mg/dL 0.2-1.0 [facility] Calcium [Mass/Vol] 9.3 mg/dL 8.5-10.1 [facility] Chloride [Moles/Vol] 110 mmol/L High 98-107 [facility] CO2 [Moles/Vol] 26.2 mmol/L 21.0-32.0 [facility] Creatinine [Mass/Vol] 1.07 mg/dL High 0.55-1.[address] [facility] GFR/1.73 sq M.predicted MDRD (S/P/Bld) [Vol rate/Area] mL/min/{1.73_m2} >=[address] [facility] Glucose [Mass/Vol] 127 mg/dL High 74-106 [facility] Potassium [Moles/Vol] 4.7 mmol/L 3.5-5.[address] [facility] Protein [Mass/Vol] 7.4 g/dL 6.4-8.2 [facility] Sodium [Moles/Vol] 145 mmol/L 136-145 [facility] Urea nitrogen [Mass/Vol] 12.0 mg/dL 7.0-18.[address] [facility] Urea nitrogen/Creatinine [Mass ratio] 11.2 mg/mg [facility] Serum or plasma albumin/glob ulin mass ratioon 11-15-2023 Albumin/Globulin [Mass ratio] 1.1 {ratio} [facility] Serum or plasma anion gap de terminationon 11-15-2023 Anion gap [Moles/Vol] 13.5 mmol/L [facility] Cholesterol in LDL Calc [Mas s/Vol]on 09-26-2023 Cholesterol in LDL [Mass/Vol] 31.0 mg/dL [facility] Comment on above: <100 mg/dl [id number] 0-129 mg/dl NEAR OR ABOVE [id number] mg/dl BORDERLINE [id number] mg/dl HIGH>190 mg/dl VERY HIGH Cholesterol in VLDL Calc [Ma ss/Vol]on 09-26-2023 Cholesterol in VLDL [Mass/Vol] 47.8 mg/dL [facility] Estimated glomerular filtrat ion rate (GFR) non- Americanon 09-26-2023 GFR/1.73 sq M.predicted among non-blacks MDRD (S/P/Bld) [Vol rate/Area] mL/min/{1.73_m2} >=[address] [facility] Glucose mean value [Mass/vol ume] in Blood Estimated from glycated hemoglobinon 09-26-2023 Average glucose Estimated from glycated hemoglobin (Bld) [Mass/Vol] 189 mg/dL [facility] Laboratory - Chemistry and C hemistry - challengeon 09-26-2023 Cholesterol [Mass/Vol] 120 mg/dL <=200 [facility] Cholesterol in HDL [Mass/Vol] 42 mg/dL 40-[address] [facility] Comment on above: > or =60 mg/dl - LOW CARDIOVASCULAR RISK<40 mg/dl - HIGH CARDIOVASCULAR RISK Creatinine [Mass/Vol] 0.89 mg/dL 0.55-1.[address] [facility] GFR/1.73 sq M.predicted MDRD (S/P/Bld) [Vol rate/Area] mL/min/{1.73_m2} >=[address] [facility] Glucose [Mass/Vol] 182 mg/dL High 74-106 [facility] Triglyceride [Mass/Vol] 239 mg/dL High <=[address] [facility] TSH Qn 2.178 m[IU]/L 0.358-3.[address] [facility] Laboratory - Hematology and Cell countson 09-26-2023 HbA1c (Bld) [Mass fraction] 8.2 % High 4.5-6.[address] [facility] Comment on above: ADA RECOMMENDED LIMI T 4.0 - 6.0ADA THERAPEUTIC TARGET < 7.0ACTION SUGGESTED> 7.0 No Panel Informationon 09-25 [place] Level 0.7 mmol/L 0.5-1.[address] [facility] Comment on above: A concentration of 0 .5-0.8 mmol/L is advised for long-termuse; concentrations of up to 1.2 mmol/L may be necessaryduring acute treatment. Detection Limit = 0.1 <0.1 indicates None DetectedPerformed at: - [facility] [id number] Director: Wojciech Farah PhD, Phone: [phone] Serum or plasma total choles terol/high density lipoprotein (HDL) cholesterol mass alix 09-26-2023 Cholesterol.total/Juanita sterol in HDL [Mass ratio] 2.9 {ratio} [facility] Comment on above: 3.3 - 4.4 LOW RISK4. 4 - 7.1 AVERAGE RISK7.1 - 11.0 MODERATE RISK>11.0 HIGH RISK Yoan 08-29-2023 L Specimen: [id number] Received: 08/29/23-1230 Status: WAN Beasley Num: [id number] Spec Type: Surgical Subm Dr: Geraldo García DO Tissues: A Breast Biopsy/Mass Not Requiring Micro Eval of Margins (RE-EXC POST MARGIN L Procedures: HE/9, Gross/Micro L4, AE1-AE3/3 Age/ Patient Sex Location Account Attending Physician VetoMelony 58/F [place] [id number] Geraldo García DO SPEC NUM: [id number] RECD: 08/29/23 STATUS: SOUT REQ NUM: [id number] MANGO: 08/29/[address]: Geraldo García DO [...] specimen is entirely submitted as follows: Specimen: [id number] Received: 08/29/23 Status: WAN Beasley Num: [id number] Spec Type: Surgical Subm Dr: Geraldo García, Tissues: A Breast Biopsy/Mass Not Requiring Micro Eval of Margins (RE-EXC POST MARGIN L Procedures: YUDY/Yesi, Gross/Micro L4, AE1-AE3/3 Patient: Melony Manley [id number] (Continued) Specimen: [id number] Received: 08/29/23 (Continued) Gross Description (Continued) Signed (signature on file) Nathaniel Gillette MD 08/31/23 1126 Specimen: [id number] Received: 08/29/23 Status: WAN Beasley Num: [id number] Spec Type: Surgical Subm Dr: Geraldo García, Tissues: A Breast Biopsy/Mass Not Requiring Micro Eval of Margins (RE-EXC POST MARGIN L Procedures: HE/Yesi, Gross/Micro L4, AE1-AE3/3 Patient: Melony Manley [id number] (Continued) Specimen: [id number] Received: 08/29/23 (Continued) Gross Description (Continued) A1: [...] posterior margin left breast TW CPT Codes 13429 84032 LUMP WITH BIOPSY CLIP AND SUTURES LUMP WITH BIOPSY CLIP AND SUTURES Specimen: [id number] Received: 08/29/23 Status: WAN Beasley Num: [id number] Spec Type: Surgical Subm Dr: Geraldo García, Tissues: A Breast Biopsy/Mass Not Requiring Micro Eval of Margins (RE-EXC POST MARGIN L Procedures: HE/9, Gross/Micro L4, AE1-AE3/3 Patient: Melony Manley [id number] (Continued) (more content not included)... Normal [facility] Automated basophil %Ordered By: Ibrahima Chand on 08-01-2023 Basophils/100 WBC (Bld) 0.5 % Normal . [facility] Comment on above: Performed By: #### C BC, BMP #### [address] Automated basophil countOrde red By: Ibrahima Chand on 08-01-2023 Basophils (Bld) [#/Vol] 0.0 10*3/uL Normal 0.0-0.[address] [facility] Comment on above: Result Comment: PERF ORMED BY: [place] [address] [employer] HUI NORTH M.D. Performed By: #### C BC, BMP #### [address] Automated blood monocyte cou ntOrdered By: Ibrahima Maciasain on 08-01-2023 Monocytes (Bld) [#/Vol] 0.4 10*3/uL Normal 0.0-0.[address] [facility] Comment on above: Performed By: #### C BC, BMP #### [address] Automated eosinophil %Ordere d By: Ibrahima Chand on 08-01-2023 Eosinophils/100 WBC (Bld) 0.1 % Normal . [facility] Comment on above: Performed By: #### C BC, BMP #### [address] Automated eosinophil countOr dered By: Ibrahima Chand on 08-01-2023 Eosinophils (Bld) [#/Vol] 0.0 10*3/uL Normal 0.0-0.[address] [facility] Comment on above: Performed By: #### C BC, BMP #### [address] Automated monocyte %Ordered By: Ibrahima Chand on 08-01-2023 Monocytes/100 WBC (Bld) 7.1 % Normal . [facility] Comment on above: Performed By: #### C BC, BMP #### [address] Automated neutrophil %Ordere d By: Ibrahima Chand on 08-01-2023 Neutrophils/100 WBC (Bld) 73.1 % Normal . [facility] Comment on above: Performed By: #### C BC, BMP #### [address] Basic Metabolic Panelon 07-07 Anion gap [Moles/Vol] Not performed Normal 6.0-15.0 [facility] Comment on above: Performed By: #### C BC, BMP #### [address] Creatinine Clr Calc Pharmacy 75.96 Normal [facility] Comment on above: Result Comment: PERF ORMED BY: [place] [address] [address] FORMS HUI NORTH M.D. Performed By: #### C BC, BMP #### [address] GFR/1.73 sq M.predicted MDRD (S/P/Bld) [Vol rate/Area] mL/min/{1.73_m2} Normal [facility] Comment on above: Performed By: #### C BC, BMP #### [address] Potassium Normal 3.5-5.1 [facility] Comment on above: Result Comment: Spec imen hemolyzed, redraw requested Performed By: #### C BC, BMP #### [address] Calcium [Mass/volume] in Ser um or PlasmaOrdered By: Ibrahima Chand on 08-01-2023 Calcium [Mass/Vol] 9.2 mg/dL Normal 8.6-10.3 [facility] Comment on above: Performed By: #### C BC, BMP #### [address] Carbon dioxide, total [Moles /volume] in Serum or PlasmaOrdered By: Ibrahima Chand on 08-01-2023 CO2 [Moles/Vol] 25.7 mmol/L Normal 21.0-31.0 [facility] Comment on above: Performed By: #### C BC, BMP #### [address] Chloride [Moles/volume] in S cristi or PlasmaOrdered By: Ibrahima Chand on 08-01-2023 Chloride [Moles/Vol] 106 mmol/L Normal 98-107 [facility] Comment on above: Performed By: #### C BC, BMP #### [address] Complete Blood Count Auto Di ffon 08-01-2023 Mean Corpuscular HGB Conc 32.5 g/dL Normal 32.0-35.0 [facility] Comment on above: Performed By: #### C BC, BMP #### [address] NRBC% 0.1 /100{WBC} Normal 0-0.5 [facility] Comment on above: Performed By: #### C BC, BMP #### [address] Creatinine [Mass/volume] in Serum or PlasmaOrdered By: Ibrahima Chand on 08-01-2023 Creatinine [Mass/Vol] 0.79 mg/dL Normal 0.60-1.[address] [facility] Comment on above: Performed By: #### C BC, BMP #### [address] Erythrocyte distribution wid th [Ratio] by Automated countOrdered By: Ibrahima Chand on 08-01-2023 Erythrocyte distribution width (RBC) [Ratio] 14.7 % Normal 11.9-15.[address] [facility] Comment on above: Performed By: #### C BC, BMP #### [address] Erythrocytes [#/volume] in B lood by Automated countOrdered By: Ibrahima Chand on 08-01-2023 RBC (Bld) [#/Vol] 5.07 10*6/uL High 3.60-5.00 [facility] Comment on above: Performed By: #### C BC, BMP #### [address] Glucose [Mass/volume] in Ser um or PlasmaOrdered By: Ibrahima Chand on 08-01-2023 Glucose [Mass/Vol] 157 mg/dL High 70-100 [facility] Comment on above: ADA recommended refe rence rangeRandom Glucose Reference Range is dependent on time and content of last meal. Glucose of more than 200 mg/dL in a nonstressed, ambulatory subject supports the diagnosis of Diabetes Mellitus. Result Comment: [place] om Glucose Reference Range is dependent on time and content of last meal. Glucose of more than 200 mg/dL in a nonstressed, ambulatory subject supports the diagnosis of Diabetes Mellitus. ADA recommended reference range Performed By: #### C BC, BMP #### [address] Hematocrit [Volume Fraction] of Blood by Automated countOrdered By: Ibrahima Chand on 08-01-2023 Hematocrit (Bld) [Volume fraction] 43.1 % Normal 34.0-46.[address] [facility] Comment on above: Performed By: #### C BC, BMP #### [address] Hemoglobin [Mass/volume] in BloodOrdered By: Ibrahima Chand on 08-01-2023 Hemoglobin (Bld) [Mass/Vol] 14.0 g/dL Normal 11.8-15.[address] [facility] Comment on above: Performed By: #### C BC, BMP #### [address] Yoan 08-01-2023 L Specimen: [id number] Received: 08/01/23-1199 Status: BHUPINDERKirk Gale Num: [id number] Spec Type: Surgical Subm Dr: Geraldo García, DO Tissues: A Breast Hal[place] Lymph Node (LT SN) B Breast Lumpectmy/Mass - Requiring Micros Eval of Margins (LT BREAST) Procedures: HE/21, Gross/Micro L5/2, Frozen Section, Froz Sec, Add, E CADHERIN/2, IHC First AB, FS HE/4 Age/ Patient Sex Location Account Attending Physician Melony Manley 58/F [place] [id number] Geraldo García DO SPEC NUM: RECD: 08/01/23 STATUS: WAN BEASLEY NUM: [id number] MANGO: 08/01/23-[address]: Geraldo García DO ENTERED: 08/01/23 [facility] DR: SPEC TYPE: Surgical DEPT: S ORDERED: [...] on file) Garfield Gordillo MD 10/10/231730 Specimen: Received: 08/01/23 Status: WAN Gale Num: [id number] Spec Type: Surgical Subm Dr: Geraldo García DO Tissues: A Breast [place] Lymph Node (LT SN) B Breast Lumpectmy/Mass - Requiring Micros Eval of Margins (LT BREAST) Procedures: HE/21, Gross/Micro L5/2, Frozen Section, Froz Sec, Add, E CADHERIN/2, IHC First AB, FS HE/4 Patient: Melony Manley [id number] (Continued) Specimen: [id number] Received: 08/01/23 (Continued) Signed (signature on file) Garfield Gordillo MD 08/08/23 1730 Specimen: [id number] Received: 08/01/23 Status: WAN Beasley Num: [id number] Spec Type: Surgical Subm Dr: Geraldo García DO Tissues: A Breast [place] Lymph Node (LT SN) B Breast Lumpectmy/Mass - Requiring Micros Eval of Margins (LT BREAST) Procedures: HE/21, Gross/Micro L5/2, Frozen Section, Froz Sec, Add, E CADHERIN/2, IHC First AB, FS HE/4 Patient: Melony Manley [id number] (Continued) Specimen: [id number] Received: 08/01/23-1200 (Continued) Pathological Diagnosis A. Halbur node, left axilla, biopsy: Metastatic carcinoma to [...] Examined (sentinel and non-sentinel): 4 Number of Halbur Nodes Examined: 4 pTNM CLASSIFICATION (AJCC 8th Edition) Specimen: [id number] Received: 08/01/23 Status: WAN Beasley Num: [id number] Spec Type: Surgical Subm Dr: Geraldo García, DO Tissues: A Breast [place] Lymph Node (LT SN) B Breast Lumpectmy/Mass - Requiring Micros Eval of Margins (LT BREAST (more content not included)... Normal [facility] Leukocytes [#/volume] correc cori for nucleated erythrocytes in Blood by Automated counOrdered By: Ibrahima Chand on 08-01-2023 WBC corrected for nucl RBC Auto (Bld) [#/Vol] 5.5 10*3/uL 3.8-11.[address] [facility] Leukocytes [#/volume] in Blo od by Automated countOrdered By: Ibrahima Chand on 08-01-2023 WBC (Bld) [#/Vol] 5.5 10*3/uL Normal 3.8-11.6 [facility] Comment on above: Performed By: #### C BC, BMP #### [facility] [address] Lymphocytes [#/volume] in Bl ood by Automated countOrdered By: Ibrahima Chand on 08-01-2023 Lymphocytes (Bld) [#/Vol] 1.1 10*3/uL Normal 1.00-4.[address] [facility] Comment on above: Performed By: #### C BC, BMP #### [facility] [address] Lymphocytes/100 leukocytes i n Blood by Automated countOrdered By: Ibrahima Chand on 08-01-2023 Lymphocytes/100 WBC (Bld) 19.2 % Normal . [facility] Comment on above: Performed By: #### C CARLEEN, BMP #### [address] MCH [Entitic mass] by Automa cori countOrdered By: Ibrahima Chand on 08-01-2023 MCH (RBC) [Entitic mass] 27.6 pg Normal 24.7-34.[address] [facility] Comment on above: Performed By: #### C BC, BMP #### [address] MCHC Auto (RBC) [Mass/Vol]Or dered By: Ibrahima Chand on 08-01-2023 MCHC (RBC) [Mass/Vol] 32.5 g/dL 32.0-35.[address] [facility] MCV [Entitic volume] by Auto mated countOrdered By: Ibrahima Chand on 08-01-2023 MCV (RBC) [Entitic vol] 84.9 fL Normal 80-[address] [facility] Comment on above: Performed By: #### C CARLEEN, BMP #### [address] MM surgical specimen LTon MM surgical specimen LT [facility] [place] [address] [place] [address] Mammography Report Signed Patient: Melony Manley MR#: [id number] : 1965 Acct:[id number] Age/Sex: 58 / F ADM Date: 08/01/23 Loc: [place] Room: Type: [facility] Attending Dr: Geraldo García [...] 1:27 PM Dictation Location: RADIO-PC-12 Transcribed By: [facility] 08/01/23 1327 Dictated By: Sandro Cintron DO 08/01/23 1326 Signed By: 08/01/23 1327 Normal [facility] NM sentinel node w imagingon 08-01-2023 NM sentinel node w imaging [facility] [place] [address] Nuclear Medicine Report Signed Patient: Melony Manley MR#: [id number] : 1965 Acct:[id number] Age/Sex: 58 / F ADM Date: 08/01/23 Loc: [place] Room: Type: [facility] Attending Dr: Geraldo García DO Copies to: DO Mateusz Alexandre Jr, DO Ordering Provider: Geraldo García DO Date of Service: 08/01/23 NM/NM sentinel node w imaging: Left Breast Cancer Nuclear medicine Halbur node lymphoscintigraphy. Reason for exam: Left breast cancer. TECHNIQUE: 0.498 mCi of technetium 99m sulfur colloid was injected into the left breast and delayed images were obtained. FINDINGS: Delayed images demonstrate migration of the radiotracer to the left axilla. NM/NM sentinel node w imaging IMPRESSION: Migration of radiotracer seen to the left axilla. Impression dictated by: Mateusz Jamison Jr., D.O.08/01/2023 1:51 PM Dictation Location: RADIO-PC-08 Transcribed By: JONA 08/01/23 1351 Dictated By: Mateusz Jamison Jr, DO 08/01/23 1350 Signed By: 08/01/23 1351 Normal [facility] Neutrophils [#/volume] in Bl ood by Automated countOrdered By: Ibrahima Chand on 08-01-2023 Neutrophils (Bld) [#/Vol] 4.0 10*3/uL Normal 1.8-7.[address] [facility] Comment on above: Performed By: #### C BC, BMP #### [facility] [address] [place] [address] No Panel InformationOrdered By: Ibrahima Chand on 08-01-2023 Estimated GFR (CKD-EPI) > 60.0 mL/Min [facility] Creatinine Clearance (Chem 75.[address] [facility] Nucleated erythrocytes [Pres ence] in Blood by Automated countOrdered By: Ibrahima Chand on 08-01-2023 Nucleated RBC Auto Ql (Bld) 0.1 /100{WBC} 0-0.[address] [facility] Platelet mean volume [Entiti c volume] in Blood by Automated countOrdered By: Ibrahima Chand on 08-01-2023 Platelet mean volume (Bld) [Entitic vol] 8.3 fL Normal 6.3-10.[address] [facility] Comment on above: Performed By: #### C CARLEEN, BMP #### [facility] [address] [place] [address] Platelets [#/volume] in Bloo d by Automated countOrdered By: Ibrahima Chand on 08-01-2023 Platelets (Bld) [#/Vol] 131 10*3/uL Low 150-[address] [facility] Comment on above: Performed By: #### C CARLEEN, BMP #### [address] Potassium [Moles/volume] in Serum or PlasmaOrdered By: Geraldo García on 08-01-2023 Potassium [Moles/Vol] 4.5 mmol/L Normal 3.5-5.[address] [facility] Comment on above: Order Comment: Pleas e send a ski base trimmer per Christin in Surg Prep. MLG Result Comment: PERF ORMED BY: [place] [address] FORMS HUI NORTH M.D. Performed By: #### R GREY Cruz #### [address] Serum or plasma anion gap de terminationOrdered By: Ibrahima Chand on 08-01-2023 Anion gap [Moles/Vol] TNP [facility] Comment on above: Test not performed Sodium [Moles/volume] in Ser um or PlasmaOrdered By: Ibrahima Maciasain on 08-01-2023 Sodium [Moles/Vol] 142 mmol/L Normal 136-145 [facility] Comment on above: Performed By: #### C BC, BMP #### [facility] [address] Urea nitrogen [Mass/volume] in Serum or PlasmaOrdered By: Ibrahima Chand on 08-01-2023 Urea nitrogen [Mass/Vol] 9 mg/dL Normal 7-[address] [facility] Comment on above: Performed By: #### C BC, BMP #### [facility] [address] [place] [address] [place] MM needle loc LTon 4 MM needle loc LT [facility] [place] [address] Mammography Report Signed Patient: Melony Manley MR#: [id number] : 1965 Acct:[id number] Age/Sex: 58 / F ADM Date: 07/24/23 Loc: [place] Room: Type: PRE [facility] Attending Dr: Geraldo García DO [...] was placed in mediolateral compression and a adult psychiatrist view of the inferior left breast was [...] Althea Tobar M.D.07/31/2023 12:53 PM Dictation Location: [facility] Transcribed By: [facility] 07/31/23 1253 Dictated By: Althea Tobar MD 07/31/23 1248 Signed By: 07/31/23 1253 Normal [facility] Human papilloma virus 16+18+ 31+33+35+39+45+51+52+56+58+59+66+68 DNA [Presence] in [place] 07-24-2023 HPV 16+18+31+33+35+39+45+51 +52+56+58+59+66+68 DNA Probe+sig amp Ql (Cvx) Negative Negative [facility] Comment on above: This nucleic acid am plification test detects fourteen high-risk HPV types (16,18,31,33,35,39,45,51,52,56,58,59,66,68)without differentiation.Performed at: = - [facility] [id number] Director: Venus Acevedo MD, Phone: [phone] at: [facility] [id number] Director: Venus Acevedo MD, Phone: [phone] No Panel Informationon 07-23 HPV High Risk Other Comment Note . [facility] Comment on above: TESTS RESULT FLAG UN ITS REF RANGE LAB -DIAGNOSIS: 02 NEGATIVE FOR INTRAEPITHELIAL LESION OR MALIGNANCY.Specimen adequacy: 02 Satisfactory for evaluation. Endocervical and/or squamous metaplastic cells (endocervical component) are present.Performed by: 02 Yisel Corley Field Broomer (ASCP). 02Note: Note 02 The Pap smear [...] <-Panic Low,>-Panic High,A-Abnormal,AA-Critical Abnormal ------Performed at:[address] [id number] Venus Acevedo MD, Reference Lab Test Patient Age Note . [facility] Comment on above: TESTS RESULT FLAG UN ITS REF RANGE LAB - Clinician Provided Cytology Information Source.............Cervix;Endocervix No. of containers..01 ThinPrep VialAge Irena HERNANDEZ Bailey... 30-65 FLAG LEGEND: L-Low Normal,H-High Normal,LL-Alert Low,HH-Alert High <-Panic Low,>-Panic High,A-Abnormal,AA-Critical Abnormal ------Performed at:01 =G [facility] [place] [address] Venus Acevedo MD, Automated basophil %Ordered By: Geraldo García on 07-19-2023 Basophils/100 WBC (Bld) 0.6 % Normal . [facility] Comment on above: Performed By: #### C CARLEEN, BMP #### [address] Automated basophil countOrde red By: Geraldo García on 07-19-2023 Basophils (Bld) [#/Vol] 0.0 10*3/uL Normal 0.0-0.[address] [facility] Comment on above: Result Comment: PERF ORMED BY: [address] [place] [address] FORMS HUI NORTH M.D. Performed By: #### C CARLEEN, BMP #### [address] Automated blood monocyte cou ntOrdered By: Geraldo García on 07-19-2023 Monocytes (Bld) [#/Vol] 0.3 10*3/uL Normal 0.0-0.[address] [facility] Comment on above: Performed By: #### C BC, BMP #### [address] Automated eosinophil %Ordere d By: Gearldo García on 07-19-2023 Eosinophils/100 WBC (Bld) 0.0 % Normal . [facility] Comment on above: Performed By: #### C BC, BMP #### [address] Automated eosinophil countOr dered By: Geraldo García on 07-19-2023 Eosinophils (Bld) [#/Vol] 0.0 10*3/uL Normal 0.0-0.[address] [facility] Comment on above: Performed By: #### C BC, BMP #### [address] Automated monocyte %Ordered By: Geraldo García on 07-19-2023 Monocytes/100 WBC (Bld) 6.6 % Normal . [facility] Comment on above: Performed By: #### C BC, BMP #### [address] Automated neutrophil %Ordere d By: Geraldo García on 07-19-2023 Neutrophils/100 WBC (Bld) 77.1 % Normal . [facility] Comment on above: Performed By: #### C BC, BMP #### [address] Basic Metabolic Panelon 07-06 GFR/1.73 sq M.predicted MDRD (S/P/Bld) [Vol rate/Area] mL/min/{1.73_m2} Normal [facility] Comment on above: Performed By: #### C BC, BMP #### [address] Calcium [Mass/volume] in Ser um or PlasmaOrdered By: Geraldo García on 07-19-2023 Calcium [Mass/Vol] 9.5 mg/dL Normal 8.6-10.3 [facility] Comment on above: Result Comment: PERF ORMED BY: [place] [address] FORMS HUI NORTH M.D. Performed By: #### C BC, BMP #### [address] Carbon dioxide, total [Moles /volume] in Serum or PlasmaOrdered By: Geraldo García on 07-19-2023 CO2 [Moles/Vol] 27.6 mmol/L Normal 21.0-31.0 [facility] Comment on above: Performed By: #### C BC, BMP #### [address] Chloride [Moles/volume] in S cristi or PlasmaOrdered By: Geraldo García on 07-19-2023 Chloride [Moles/Vol] 101 mmol/L Normal 98-107 [facility] Comment on above: Performed By: #### C BC, BMP #### [address] Complete Blood Count Auto Di ffon 07-19-2023 Mean Corpuscular HGB Conc 33.1 g/dL Normal 32.0-35.0 [facility] Comment on above: Performed By: #### C BC, BMP #### [address] NRBC% 0.1 /100{WBC} Normal 0-0.5 [facility] Comment on above: Performed By: #### C BC, BMP #### [address] Creatinine [Mass/volume] in Serum or PlasmaOrdered By: Geraldo García on 07-19-2023 Creatinine [Mass/Vol] 0.90 mg/dL Normal 0.60-1.[address] [facility] Comment on above: Performed By: #### C BC, BMP #### [address] Erythrocyte distribution wid th [Ratio] by Automated countOrdered By: Geraldo García on 07-19-2023 Erythrocyte distribution width (RBC) [Ratio] 14.1 % Normal 11.9-15.[address] [facility] Comment on above: Performed By: #### C BC, BMP #### [address] [place] [address] [place] Erythrocytes [#/volume] in B lood by Automated countOrdered By: Geraldo García on 07-19-2023 RBC (Bld) [#/Vol] 4.69 10*6/uL Normal 3.60-5.00 [facility] Comment on above: Performed By: #### C CARLEEN, BMP #### [facility] [address] [place] [address] [place] Glucose [Mass/volume] in Ser um or PlasmaOrdered By: Geraldo García on 07-19-2023 Glucose [Mass/Vol] 333 mg/dL High 70-100 [facility] Comment on above: ADA recommended refe rence rangeRandom Glucose Reference Range is dependent on time and content of last meal. Glucose of more than 200 mg/dL in a nonstressed, ambulatory subject supports the diagnosis of Diabetes Mellitus. Result Comment: [place] om Glucose Reference Range is dependent on time and content of last meal. Glucose of more than 200 mg/dL in a nonstressed, ambulatory subject supports the diagnosis of Diabetes Mellitus. ADA recommended reference range Performed By: #### C CARLEEN, BMP #### [place] [id number] [place] Hematocrit [Volume Fraction] of Blood by Automated countOrdered By: Geraldo García on 07-19-2023 Hematocrit (Bld) [Volume fraction] 39.2 % Normal 34.0-46.[address] [facility] Comment on above: Performed By: #### C CARLEEN, BMP #### [facility] [address] [place] [address] [place] Hemoglobin [Mass/volume] in BloodOrdered By: Geraldo García on 07-19-2023 Hemoglobin (Bld) [Mass/Vol] 13.0 g/dL Normal 11.8-15.[address] [facility] Comment on above: Performed By: #### C BC, BMP #### [facility] [address] [place] [address] [place] Leukocytes [#/volume] correc cori for nucleated erythrocytes in Blood by Automated counOrdered By: Geraldo García on 07-19-2023 WBC corrected for nucl RBC Auto (Bld) [#/Vol] 4.8 10*3/uL 3.8-11.[address] [facility] Leukocytes [#/volume] in Blo od by Automated countOrdered By: Geraldo García on 07-19-2023 WBC (Bld) [#/Vol] 4.8 10*3/uL Normal 3.8-11.6 [facility] Comment on above: Performed By: #### C BC, BMP #### [facility] [address] Lymphocytes [#/volume] in Bl ood by Automated countOrdered By: Geraldo García on 07-19-2023 Lymphocytes (Bld) [#/Vol] 0.7 10*3/uL Low 1.00-4.[address] [facility] Comment on above: Performed By: #### C BC, BMP #### [facility] [address] [place] [address] Lymphocytes/100 leukocytes i n Blood by Automated countOrdered By: Geraldo García on 07-19-2023 Lymphocytes/100 WBC (Bld) 15.7 % Normal . [facility] Comment on above: Performed By: #### C BC, BMP #### [address] MCH [Entitic mass] by Automa cori countOrdered By: Geraldo García on 07-19-2023 MCH (RBC) [Entitic mass] 27.7 pg Normal 24.7-34.[address] [facility] Comment on above: Performed By: #### C BC, BMP #### [address] MCHC Auto (RBC) [Mass/Vol]Or dered By: Geraldo García on 07-19-2023 MCHC (RBC) [Mass/Vol] 33.1 g/dL 32.0-35.[address] [facility] MCV [Entitic volume] by Auto mated countOrdered By: Geraldo García on 07-19-2023 MCV (RBC) [Entitic vol] 83.7 fL Normal 80-[address] [facility] Comment on above: Performed By: #### C CARLEEN, BMP #### [address] Neutrophils [#/volume] in Bl ood by Automated countOrdered By: Geraldo García on 07-19-2023 Neutrophils (Bld) [#/Vol] 3.7 10*3/uL Normal 1.8-7.[address] [facility] Comment on above: Performed By: #### C CARLEEN, BMP #### [address] No Panel InformationOrdered By: Geraldo García on 07-19-2023 Estimated GFR (CKD-EPI) > 60.0 mL/Min [facility] Creatinine Clearance (Chem N/A [facility] Nucleated erythrocytes [Pres ence] in Blood by Automated countOrdered By: Geraldo García on 07-19-2023 Nucleated RBC Auto Ql (Bld) 0.1 /100{WBC} 0-0.[address] [facility] Platelet mean volume [Entiti c volume] in Blood by Automated countOrdered By: Geraldo García on 07-19-2023 Platelet mean volume (Bld) [Entitic vol] 8.4 fL Normal 6.3-10.[address] [facility] Comment on above: Performed By: #### C CARLEEN, BMP #### [facility] [address] [place] [address] Platelets [#/volume] in Bloo d by Automated countOrdered By: Geraldo García on 07-19-2023 Platelets (Bld) [#/Vol] 127 10*3/uL Low 150-[address] [facility] Comment on above: Performed By: #### C BC, BMP #### [address] Potassium [Moles/volume] in Serum or PlasmaOrdered By: Geraldo García on 07-19-2023 Potassium [Moles/Vol] 3.8 mmol/L Normal 3.5-5.[address] [facility] Comment on above: Performed By: #### C BC, BMP #### [address] Serum or plasma anion gap de terminationOrdered By: Geraldo García on 07-19-2023 Anion gap [Moles/Vol] 12.2 mmol/L Normal 6.0-15.0 [facility] Comment on above: Performed By: #### C BC, BMP #### [address] Sodium [Moles/volume] in Ser um or PlasmaOrdered By: Geraldo García on 07-19-2023 Sodium [Moles/Vol] 137 mmol/L Normal 136-145 [facility] Comment on above: Performed By: #### C CARLEEN, BMP #### [address] Urea nitrogen [Mass/volume] in Serum or PlasmaOrdered By: Geraldo García on 07-19-2023 Urea nitrogen [Mass/Vol] 12 mg/dL Normal 7-[address] [facility] Comment on above: Performed By: #### C BC, BMP #### [address] MRI BREAST BILATERAL W WO CO NTRASTon [...] Anthony Pichardo MD 06/30/23 Final result Normal [facility] Basophils Auto (Bld) [#/Vol] Ordered By: Geraldo García on 05-02-2023 Basophils (Bld) [#/Vol] 0.0 10*3/uL 0.0-0.[address] [facility] Basophils/100 WBC Auto (Bld) Ordered By: Geraldo García on 05-02-2023 Basophils/100 WBC (Bld) 0.5 % . [facility] Calcium [Mass/volume] in Ser um or PlasmaOrdered By: Geraldo García on 05-02-2023 Calcium [Mass/Vol] 9.8 mg/dL 8.6-10.3 [facility] Carbon dioxide, total [Moles /volume] in Serum or PlasmaOrdered By: Geraldo García on 05-02-2023 CO2 [Moles/Vol] 26.0 mmol/L 21.0-31.0 [facility] Chloride [Moles/volume] in S cristi or PlasmaOrdered By: Geraldo García on 05-02-2023 Chloride [Moles/Vol] 107 mmol/L 98-107 [facility] Creatinine [Mass/volume] in Serum or PlasmaOrdered By: Geraldo García on 05-02-2023 Creatinine [Mass/Vol] 0.93 mg/dL 0.60-1.[address] [facility] Eosinophils Auto (Bld) [#/Vo l]Ordered By: Geraldo García on 05-02-2023 Eosinophils (Bld) [#/Vol] 0.0 10*3/uL 0.0-0.[address] [facility] Eosinophils/100 WBC Auto (Bl d)Ordered By: Geraldo García on 05-02-2023 Eosinophils/100 WBC (Bld) 0.0 % . [facility] Erythrocyte distribution wid th Auto (RBC) [Ratio]Ordered By: Geraldo García on 05-02-2023 Erythrocyte distribution width (RBC) [Ratio] 14.0 % 11.9-15.[address] [facility] Glucose [Mass/volume] in Ser um or PlasmaOrdered By: Geraldo García on 05-02-2023 Glucose [Mass/Vol] 147 mg/dL 70-100 [facility] Comment on above: ADA recommended refe rence rangeRandom Glucose Reference Range is dependent on time and content of last meal. Glucose of more than 200 mg/dL in a nonstressed, ambulatory subject supports the diagnosis of Diabetes Mellitus. Hematocrit Auto (Bld) [Volum e fraction]Ordered By: Geraldo García on 05-02-2023 Hematocrit (Bld) [Volume fraction] 38.9 % 34.0-46.[address] [facility] Hemoglobin [Mass/volume] in BloodOrdered By: Geraldo García on 05-02-2023 Hemoglobin (Bld) [Mass/Vol] 12.9 g/dL 11.8-15.[address] [facility] Leukocytes [#/volume] correc cori for nucleated erythrocytes in Blood by Automated counOrdered By: Geraldo García on 05-02-2023 WBC corrected for nucl RBC Auto (Bld) [#/Vol] 5.7 10*3/uL 3.8-11.[address] [facility] Lymphocytes Auto (Bld) [#/Vo l]Ordered By: Geraldo García on 05-02-2023 Lymphocytes (Bld) [#/Vol] 1.2 10*3/uL 1.00-4.[address] [facility] Lymphocytes/100 WBC Auto (Bl d)Ordered By: Geraldo García on 05-02-2023 Lymphocytes/100 WBC (Bld) 21.5 % . [facility] MCH Auto (RBC) [Entitic mass ]Ordered By: Geraldo García on 05-02-2023 MCH (RBC) [Entitic mass] 28.4 pg 24.7-34.[address] [facility] MCHC Auto (RBC) [Mass/Vol]Or dered By: Geraldo García on 05-02-2023 MCHC (RBC) [Mass/Vol] 33.1 g/dL 32.0-35.[address] [facility] MCV Auto (RBC) [Entitic vol] Ordered By: Geraldo García on 05-02-2023 MCV (RBC) [Entitic vol] 85.8 fL 80-[address] [facility] Monocytes Auto (Bld) [#/Vol] Ordered By: Geraldo García on 05-02-2023 Monocytes (Bld) [#/Vol] 0.4 10*3/uL 0.0-0.[address] [facility] Monocytes/100 WBC Auto (Bld) Ordered By: Geraldo García on 05-02-2023 Monocytes/100 WBC (Bld) 6.5 % . [facility] Neutrophils Auto (Bld) [#/Vo l]Ordered By: Geraldo García on 05-02-2023 Neutrophils (Bld) [#/Vol] 4.0 10*3/uL 1.8-7.[address] [facility] Neutrophils/100 WBC Auto (Bl d)Ordered By: Geraldo García on 05-02-2023 Neutrophils/100 WBC (Bld) 71.5 % . [facility] No Panel InformationOrdered By: Geraldo García on 05-02-2023 Estimated GFR (CKD-EPI) > 60.0 mL/Min [facility] Creatinine Clearance (Chem N/A [facility] Nucleated erythrocytes [Pres ence] in Blood by Automated countOrdered By: Geraldo García on 05-02-2023 Nucleated RBC Auto Ql (Bld) 0.0 /100{WBC} 0-0.[address] [facility] Platelet mean volume Auto (B ld) [Entitic vol]Ordered By: Geraldo García on 05-02-2023 Platelet mean volume (Bld) [Entitic vol] 7.9 fL 6.3-10.[address] [facility] Platelets Auto (Bld) [#/Vol] Ordered By: Geraldo García on 05-02-2023 Platelets (Bld) [#/Vol] 146 10*3/uL 150-[address] [facility] Potassium [Moles/volume] in Serum or PlasmaOrdered By: Geraldo García on 05-02-2023 Potassium [Moles/Vol] 4.2 mmol/L 3.5-5.[address] [facility] RBC Auto (Bld) [#/Vol]Ordere d By: Geraldo García on 05-02-2023 RBC (Bld) [#/Vol] 4.53 10*6/uL 3.60-5.00 [facility] Serum or plasma anion gap de terminationOrdered By: Geraldo García on 05-02-2023 Anion gap [Moles/Vol] 13.2 mmol/L 6.0-15.0 [facility] Sodium [Moles/volume] in Ser um or PlasmaOrdered By: Geraldo García on 05-02-2023 Sodium [Moles/Vol] 142 mmol/L 136-145 [facility] Urea nitrogen [Mass/volume] in Serum or PlasmaOrdered By: Geraldo García on 05-02-2023 Urea nitrogen [Mass/Vol] 12 mg/dL 7- [facility] WBC Auto (Bld) [#/Vol]Ordere d By: Geraldo García on 05-02-2023 WBC (Bld) [#/Vol] 5.7 10*3/uL 3.8-11.6 [facility] MG MAMM LT DIAG FUon 023 MG MAMM LT DIAG FU Patient: MELONY MANLEY Exam Date: 08/26/2022 : 1965 Gender:F Ordering : DR LITTLE STAFFORD . Admission #: [id number] Family : Order #: [id number] CLICK HERE TO VIEW EXAM RADIOLOGY REPORT [...] stomach cancer at age 54. LOCATION: [facility] BREAST COMPOSITION: Heterogeneously dense,which may [...] M.D. on 08/26/2022 at 14:39 Normal [facility] US BREAST LEFT LIMITEDon US BREAST LEFT LIMITED Patient: MELONY MANLEY Exam Date: 08/26/2022 : 1965 Gender:F Ordering : DR LITTLE STAFFORD . Admission #: [id number] Family : Order #: [id number] CLICK HERE TO VIEW EXAM RADIOLOGY REPORT [...] stomach cancer at age 54. LOCATION: [facility] BREAST COMPOSITION: Heterogeneously dense,which may [...] M.D. on 08/26/2022 at 14:39 Normal [facility] MG MAMM SCREEN 3D SOLITARIO CADon 08-01-2022 MG MAMM SCREEN 3D SOLITARIO CAD Patient: MELONY MANLEY Exam Date: 08/01/2022 : 1965 Gender:F Ordering : DR LITTLE STAFFORD . Admission #: [id number] Family : Order #: [id number] CLICK HERE TO VIEW EXAM RADIOLOGY REPORT [...] with stomach cancer at age 54. LOCATION: [facility] BREAST COMPOSITION: Heterogeneously dense,which may obscure small [...] Mccormack M.D. on 08/01/2022 at 12:26 Normal [facility] XR DEXA BONE DENSITYon 08-01 XR DEXA [...] by: THEA MCCORMACK Date: 2022-08-01 11:39 Normal [facility] PAP ACOG PANEL 2: 30 to 65on 07-26-2022 . . Normal [facility] Comment on above: Result Comment: Perf ormed at: WB Performed By: #### [id number] #### [facility] [address] [place] [address] [address] Devon Gillette Age Gdln ACOG Testing 30-65 Normal [facility] Comment on above: Performed By: #### [id number] #### [facility] [address] [address] [address] Devon Gillette DIAGNOSIS: Comment Normal [facility] Comment on above: Result Comment: NEGA TIVE FOR INTRAEPITHELIAL LESION OR MALIGNANCY. Performed at: WB Performed By: #### [id number] #### [facility] [address] [address] [address] Devon Gillette HPV Aptima Negative Normal Negative [facility] Comment on above: Result Comment: This nucleic acid amplification test detects fourteen high-risk HPV types (16,18,31,33,35,39,45,51,52,56,58,59,66,68) without differentiation. Performed at: =G Performed By: #### [id number] #### [facility] [address] [address] [address] Devon Gillette HPV Genotype Reflex Comment Normal [facility] Comment on above: Result Comment: Crit eria not met, HPV Genotype not performed. Performed at: WB Performed By: #### [id number] #### [facility] [address] [address] [address] Devon Gillette Methodology: Comment Normal [facility] Comment on above: Result Comment: This liquid based ThinPrep(R) pap test was screened with the use of an image guided system. Performed at: WB Performed By: #### [id number] #### [facility] [address] [place] [address] Dr. Devon Gillette Note: Comment Normal [facility] Comment on above: Result Comment: The Pap smear is a screening test designed to aid in the detection of premalignant and malignant conditions of the uterine cervix. It is not a diagnostic procedure and should not be used as the sole means of detecting cervical cancer. Both false-positive and false-negative reports do occur. . Performed at: WB Performed By: #### [id number] #### [facility] [address] [place] [address] Dr. Devon Gillette Performed by: Comment Normal [facility] Comment on above: Result Comment: Anjelica Girard, Field Broomer (ASCP) Performed at: WB Performed By: #### [id number] #### [facility] [address] [place] [address] Dr. Devon Gillette Specimen adequacy: Comment Normal [facility] Comment on above: Result Comment: Sati sfactory for evaluation. Endocervical and/or squamous metaplastic cells (endocervical component) are present. Performed at: WB Performed By: #### [id number] #### [facility] [address] [place] [address] Dr. Devon Gillette VAGINITIS/VAGINOSIS DNA PROB Jim 07-20-2022 Anni species Negative Normal Negative [facility] Comment on above: Performed By: #### V AGINT #### [facility] [address] [place] [address] Dr. Devon Gillette Gardnerella vaginalis Positive Abnormal Negative [facility] Comment on above: Performed By: #### V AGINT #### [facility] [address] [place] [address] Dr. Devon Gillette Trichomonas vaginalis Negative Normal Negative [facility] Comment on above: Performed By: #### V AGINT #### [facility] [address] [place] [address] Dr. Devon Gillette CULTURE URINEon 04-21-2022 CULTURE URINE Culture Observations : LIGHT GROWTH OF MIXED GENITAL LAZARO. NO POTENTIAL PATHOGENS SEEN. Normal [facility] Comment on above: Performed By: #### G FRANKIE, TSH, LIPID, CREA #### [facility] [address] [place] [address] Dr. Devon Gillette LITHIUMon 04-15-2022 [place] (Eskalith(R)), Serum 0.6 mmol/L Normal 0.5-1.2 [facility] Comment on above: Result Comment: A co ncentration of 0.5-0.8 mmol/L is advised for long-term use; concentrations of up to 1.2 mmol/L may be necessary during acute treatment. Detection Limit = 0.1 <0.1 indicates None Detected Performed By: #### G FRANKIE, TSH, LIPID, CREA #### [facility] [address] [place] [address] Dr. Devon Gillette CREATININEon 04-14-2022 Creatinine [Mass/Vol] 0.89 mg/dL Normal 0.55-1.02 [facility] Comment on above: Performed By: #### G FRANKIE, TSH, LIPID, CREA #### [facility] [address] [place] [address] Dr. Devon Gillette EGFR-AF NIGERIEN >60 Normal >=60 [facility] Comment on above: Performed By: #### G FRANKIE, TSH, LIPID, CREA #### [facility] [address] [place] [address] Dr. Devon Gillette EGFR-NON AF NIGERIEN >60 Normal >=60 [facility] Comment on above: Performed By: #### G FRANKIE, TSH, LIPID, CREA #### [facility] [address] [place] [address] Dr. Devon Gillette GLUCOSE BLOODon 04-14-2022 Glucose [Mass/Vol] 118 mg/dL Critically high 74-106 [facility] Comment on above: Performed By: #### G FRANKIE, TSH, LIPID, CREA #### [facility] [address] [place] [address] Dr. Devon Gillette LIPID PROFILEon 04-14-2022 CHOL-HDL RATIO NORM SEE BELOW Normal [facility] Comment on above: Result Comment: 3.3 - 4.4 LOW RISK 4.4 - 7.1 AVERAGE RISK 7.1 - 11.0 MODERATE RISK >11.0 HIGH RISK Performed By: #### G FRANKIE, TSH, LIPID, CREA #### [facility] [address] [place] [address] Dr. Devon Gillette Cholesterol [Mass/Vol] 128 mg/dL Normal <=200 [facility] Comment on above: Performed By: #### G FRANKIE, TSH, LIPID, CREA #### [facility] [address] [address] [address] Devon Gillette Cholesterol in HDL [Mass/Vol] 47 mg/dL Normal 40-60 [facility] Comment on above: Performed By: #### G FRANKIE, TSH, LIPID, CREA #### [facility] [address] [address] [address] Devon Gillette Cholesterol in LDL [Mass/Vol] 34.6 mg/dL Normal [facility] Comment on above: Performed By: #### G FRANKIE, TSH, LIPID, CREA #### [facility] [address] [place] [address] Dr. Devon Gillette Cholesterol.total/Juanita sterol in HDL [Mass ratio] 2.7 {ratio} Normal [facility] Comment on above: Performed By: #### G FRANKIE, TSH, LIPID, CREA #### [facility] [address] [place] [address] Dr. Devon Gillette HDL NORMAL > or = 60 mg/dl - LO W CARDIOVASCULAR RISK <40 mg/dl - HIGH CARDIOVASCULAR RISK Normal [facility] Comment on above: Performed By: #### G FRANKIE, TSH, LIPID, CREA #### [facility] [address] [place] [address] Dr. Devon Gillette LDL CALC NORMAL SEE BELOW Normal [facility] Comment on above: Result Comment: <100 mg/dl OPTIMAL 100 - 129 mg/dl NEAR OR ABOVE OPTIMAL 130 - 159 mg/dl BORDERLINE HIGH 160 - 189 mg/dl HIGH >190 mg/dl VERY HIGH Performed By: #### G FRANKIE, TSH, LIPID, CREA #### [facility] [address] [place] [address] Dr. Devon Gillette Triglyceride [Mass/Vol] 232 mg/dL Critically high <=150 [facility] Comment on above: Performed By: #### G FRANKIE, TSH, LIPID, CREA #### [facility] [address] [place] [address] Dr. Devon Gillette VLDL CALC 46.4 mg/dL Normal [facility] Comment on above: Performed By: #### G FRANKIE, TSH, LIPID, CREA #### [facility] [address] [place] [address] Dr. Devon Gillette TSHon 04-14-2022 TSH 0.375 uIU/mL Normal 0.358-3.740 [facility] Comment on above: Performed By: #### G FRANKIE, TSH, LIPID, CREA #### [facility] [address] [place] [address] Dr. Devon Gillette CULTURE URINEon 03-30-2022 CULTURE [...] F Trimethoprim/Sulfametho xazole <=20 S F Normal [facility] Comment on above: Performed By: #### U RCX #### [facility] [address] [place] [address] Dr. Devon Gillette LITHIUMon 12-28-2021 [place] (Eskalith(R)), Serum 0.7 mmol/L Normal 0.5-1.2 [facility] Comment on above: Result Comment: Plas ma concentration of 0.5 - 0.8 mmol/L are advised for long-term use; concentrations of up to 1.2 mmol/L may be necessary during acute treatment. Detection Limit = 0.1 <0.1 indicates None Detected Performed By: #### G FRANKIE, TSH, LIPID, CREA #### [facility] [address] [place] [address] Dr. Devon Gillette CREATININEon 12-27-2021 Creatinine [Mass/Vol] 1.10 mg/dL Critically high 0.55-1.02 [facility] Comment on above: Performed By: #### G FRANKIE, TSH, LIPID, CREA #### [facility] [address] [place] [address] Dr. Devon Gillette EGFR-AF NIGERIEN >60 Normal >=60 [facility] Comment on above: Performed By: #### G FRANKIE, TSH, LIPID, CREA #### [facility] [address] [address] [address] Devon Gillette EGFR-NON AF NIGERIEN 51 mL/min/1.73m2 Critically low >=60 [facility] Comment on above: Performed By: #### G FRANKIE, TSH, LIPID, CREA #### [facility] [address] [place] [address] Dr. Devon Gillette DIRECT LDLon 12-27-2021 Cholesterol in LDL [Mass/Vol] 133 mg/dL Normal [facility] Comment on above: Performed By: #### G FRANKIE, TSH, LIPID, CREA #### [facility] [address] [place] [address] Dr. Devon Gillette DLDL NORMAL SEE BELOW Normal [facility] Comment on above: Result Comment: <100 mg/dl OPTIMAL 100 - 129 mg/dl NEAR OR ABOVE OPTIMAL 130 - 159 mg/dl BORDERLINE HIGH 160 - 189 mg/dl HIGH >190 mg/dl VERY HIGH Performed By: #### G FRANKIE, TSH, LIPID, CREA #### [facility] [address] [place] [address] Dr. Devon Gillette GLUCOSE BLOODon 12-27-2021 Glucose [Mass/Vol] 151 mg/dL Critically high 74-106 [facility] Comment on above: Performed By: #### G FRANKIE, TSH, LIPID, CREA #### [facility] [address] [place] [address] Dr. Devon Gillette LIPID PROFILEon 12-27-2021 CHOL-HDL RATIO NORM SEE BELOW Normal [facility] Comment on above: Result Comment: 3.3 - 4.4 LOW RISK 4.4 - 7.1 AVERAGE RISK 7.1 - 11.0 MODERATE RISK >11.0 HIGH RISK Performed By: #### G FRANKIE, TSH, LIPID, CREA #### [facility] [address] [address] [address] Devon Gillette Cholesterol [Mass/Vol] 244 mg/dL Critically high <=200 [facility] Comment on above: Performed By: #### G FRANKIE, TSH, LIPID, CREA #### [facility] [address] [address] [address] Devon Gillette Cholesterol in HDL [Mass/Vol] 33 mg/dL Critically low 40-60 [facility] Comment on above: Performed By: #### G FRANKIE, TSH, LIPID, CREA #### [facility] [address] [address] [address] Devon Gillette Cholesterol.total/Juanita sterol in HDL [Mass ratio] 7.4 {ratio} Normal [facility] Comment on above: Performed By: #### G FRANKIE, TSH, LIPID, CREA #### [facility] [address] [address] [address] Devon Gillette HDL NORMAL > or = 60 mg/dl - LO W CARDIOVASCULAR RISK <40 mg/dl - HIGH CARDIOVASCULAR RISK Normal [facility] Comment on above: Performed By: #### G FRANKIE, TSH, LIPID, CREA #### [facility] [address] [address] [address] Devon Gillette Triglyceride [Mass/Vol] 431 mg/dL Critically high <=150 [facility] Comment on above: Performed By: #### G FRANKIE, TSH, LIPID, CREA #### [facility] [address] [address] [address] Devon Gileltte Vital Signs Date Time Vital Sign Value Performing Clinician Facility 07-18-2024 13:18040 Body height 162.56 cm Susan Ayala MD Work Phone: [facility] 07-18-2024 13:18040 Body mass index (BMI) [Ratio] 26.9 kg/m2 Susan Ayala MD Work Phone: [facility] 07-18-2024 13:18-040 Body temperature 96.8 [degF] Susan Ayala MD Work Phone: [facility] 07-18-2024 13:18-0400 Body weight 71.21 kg Susan Ayala MD Work Phone: [facility] 07-18-2024 13:18-0400 Diastolic blood pressure 66 mm[Hg] Susna Ayala MD Work Phone: [facility] 07-18-2024 13:18-0400 Heart rate 118 /min Susan Ayala MD Work Phone: [facility] 07-18-2024 13:18-0400 SaO2% (BldA) [Mass fraction] 99 % Susan Ayala MD Work Phone: [facility] 07-18-2024 13:18-0400 Systolic blood pressure 118 mm[Hg] Susan Ayala MD Work Phone: [facility] 06-11-2024 08:44-0500 Body height 162.56 cm Susan Ayala MD Work Phone: [facility] 06-11-2024 08:44-0500 Body mass index (BMI) [Ratio] 27.1 kg/m2 Susan Ayaal MD Work Phone: [facility] 06-11-2024 08:44-0500 Body weight 71.66 kg Susan Ayala MD Work Phone: [facility] 06-11-2024 08:44-0500 Diastolic blood pressure 66 mm[Hg] Susan Ayala MD Work Phone: [facility] 06-11-2024 08:44-0500 Heart rate 66 /min Susan Ayala MD Work Phone: [facility] 06-11-2024 08:44-0500 Systolic blood pressure 102 mm[Hg] Susan Ayala MD Work Phone: [facility] 05-24-2024 13:26-0500 Body height 162.56 cm Susan Ayala MD Work Phone: [facility] 05-24-2024 13:26-0500 Body mass index (BMI) [Ratio] 27.4 kg/m2 Susan Ayala MD Work Phone: [facility] 05-24-2024 13:26-0500 Body weight 72.57 kg Susan Ayala MD Work Phone: [facility] 05-24-2024 13:26-0500 Diastolic blood pressure 84 mm[Hg] Susan Ayala MD Work Phone: [facility] 05-24-2024 13:26-0500 Heart rate 109 /min Susan Ayala MD Work Phone: [facility] 05-24-2024 13:26-0500 Systolic blood pressure 128 mm[Hg] Susan Ayala MD Work Phone: [facility] 05-23-2024 11:45-0500 Body height 162.56 cm Susan Ayala MD Work Phone: [facility] 05-23-2024 11:45-0500 Body mass index (BMI) [Ratio] 27.3 kg/m2 Susan Ayala MD Work Phone: [facility] 05-23-2024 11:45-0500 Body temperature 97.6 [degF] Susan Ayala MD Work Phone: [facility] 05-23-2024 11:45-0500 Body weight 72.12 kg Susan Ayala MD Work Phone: [facility] 05-23-2024 11:45-0500 Diastolic blood pressure 83 mm[Hg] Susan Ayala MD Work Phone: [facility] 05-23-2024 11:45-0500 Heart rate 103 /min Susan Ayala MD Work Phone: [facility] 05-23-2024 11:45-0500 Respiratory rate 20 /min Susan Ayala MD Work Phone: [facility] 05-23-2024 11:45-0500 SaO2% (BldA) [Mass fraction] 99 % Susan Ayala MD Work Phone: [facility] 05-23-2024 11:45-0500 Systolic blood pressure 149 mm[Hg] Susan Ayala MD Work Phone: [facility] 05-17-2024 11:14-0500 Body height 162.56 cm Susan Ayala MD Work Phone: [facility] 05-17-2024 11:14-0500 Body mass index (BMI) [Ratio] 27.1 kg/m2 Susan Ayala MD Work Phone: [facility] 05-17-2024 11:14-0500 Body temperature 98.9 [degF] Susan Ayala MD Work Phone: [facility] 05-17-2024 11:14-0500 Body weight 71.66 kg Susan Ayala MD Work Phone: [facility] 05-17-2024 11:14-0500 Diastolic blood pressure 85 mm[Hg] Susan Ayala MD Work Phone: [facility] 05-17-2024 11:14-0500 Heart rate 93 /min Susan Ayala MD Work Phone: [facility] 05-17-2024 11:14-0500 SaO2% (BldA) [Mass fraction] 99 % Susan Ayala MD Work Phone: [facility] 05-17-2024 11:14-0500 Systolic blood pressure 144 mm[Hg] Susan Ayala MD Work Phone: [facility] 04-10-2024 12:50-0500 Body height 162.6 cm Mabel Oscar MD Work Phone: [facility] 04-10-2024 12:50-0500 Diastolic blood pressure 78 mm[Hg] Mabel Oscar MD Work Phone: [facility] 04-10-2024 12:50-0500 Systolic blood pressure 150 mm[Hg] Mabel Oscar MD Work Phone: [facility] 03-25-2024 14:49-0500 Body height 1950.72 cm Susan Ayala MD Work Phone: [facility] 03-25-2024 14:49-0500 Body mass index (BMI) [Ratio] 0.1 kg/m2 Susan Ayala MD Work Phone: [facility] 03-25-2024 14:49-0500 Body weight 70.76 kg Susan Ayala MD Work Phone: [facility] 03-25-2024 14:49-0500 Diastolic blood pressure 77 mm[Hg] Susan Ayala MD Work Phone: [facility] 03-25-2024 14:49-0500 Heart rate 87 /min Susan Ayala MD Work Phone: [facility] 03-25-2024 14:49-0500 Systolic blood pressure 133 mm[Hg] Susan Ayala MD Work Phone: [facility] 03-22-2024 10:31-0500 Body height 162.56 cm Susan Ayala MD Work Phone: [facility] 03-22-2024 10:31-0500 Body mass index (BMI) [Ratio] 26.7 kg/m2 Susan Ayala MD Work Phone: [facility] 03-22-2024 10:31-0500 Body temperature 97.9 [degF] Susan Ayala MD Work Phone: [facility] 03-22-2024 10:31-0500 Body weight 70.76 kg Susan Ayala MD Work Phone: [facility] 03-22-2024 10:31-0500 Diastolic blood pressure 85 mm[Hg] Susan Ayala MD Work Phone: [facility] 03-22-2024 10:31-0500 Heart rate 91 /min Susan Ayala MD Work Phone: [facility] 03-22-2024 10:31-0500 Respiratory rate 16 /min Susan Ayala MD Work Phone: [facility] 03-22-2024 10:31-0500 SaO2% (BldA) [Mass fraction] 99 % Susan Ayala MD Work Phone: [facility] 03-22-2024 10:31-0500 Systolic blood pressure 129 mm[Hg] Susan Ayala MD Work Phone: [facility] 03-16-2024 09:13-0500 Body height 162.56 cm Susan Ayala MD Work Phone: [facility] 03-16-2024 09:13-0500 Body mass index (BMI) [Ratio] 27.3 kg/m2 Susan Ayala MD Work Phone: [facility] 03-16-2024 09:13-0500 Body temperature 98.5 [degF] Susan Ayala MD Work Phone: [facility] 03-16-2024 09:13-0500 Body weight 72.12 kg Susan Ayala MD Work Phone: [facility] 03-16-2024 09:13-0500 Diastolic blood pressure 77 mm[Hg] Susan Ayala MD Work Phone: [facility] 03-16-2024 09:13-0500 Heart rate 94 /min Susan Ayala MD Work Phone: [facility] 03-16-2024 09:13-0500 Respiratory rate 16 /min Susan Ayala MD Work Phone: [facility] 03-16-2024 09:13-0500 SaO2% (BldA) [Mass fraction] 97 % Susan Ayala MD Work Phone: [facility] 03-16-2024 09:13-0500 Systolic blood pressure 123 mm[Hg] Susan Ayala MD Work Phone: [facility] 03-07-2024 13:23-0400 Body height 162.6 cm Gilson Kenyon DPM Work Phone: [facility] 03-07-2024 13:23-0400 Body mass index (BMI) [Ratio] 28.15 kg/m2 Gilson Kenyon DPM Work Phone: [facility] 03-07-2024 13:23-0400 Body weight 74.39 kg Gilson Kenyon DPM Work Phone: [facility] 03-07-2024 13:23-0400 Heart rate 81 /min Gilson Kenyon DPM Work Phone: [facility] 02-20-2024 08:13-0400 Body height 162.56 cm MD Susan Ayala Work Phone: [facility] 02-20-2024 08:13-0400 Body mass index (BMI) [Ratio] 27.1 kg/m2 MD Susan Ayala Work Phone: [facility] 02-20-2024 08:13-0400 Body weight 71.78 kg MD Susan Ayala Work Phone: [facility] 02-20-2024 08:13-0400 Diastolic blood pressure 62 mm[Hg] MD Susan Ayala Work Phone: [facility] 02-20-2024 08:13-0400 Heart rate 89 /min MD Susan Ayala Work Phone: [facility] 02-20-2024 08:13-0400 Respiratory rate 16 /min MD Susan Ayala Work Phone: [facility] 02-20-2024 08:13-0400 SaO2% (BldA) [Mass fraction] 97 % MD Susan Ayala Work Phone: [facility] 02-20-2024 08:13-0400 Systolic blood pressure 126 mm[Hg] MD Susan Ayala Work Phone: [facility] 02-15-2024 13:01-0400 Body height 162.56 cm MD Susan Ayala Work Phone: [facility] 02-15-2024 13:01-0400 Body mass index (BMI) [Ratio] 27.3 kg/m2 MD Susan Ayala Work Phone: [facility] 02-15-2024 13:01-0400 Body temperature 98.2 [degF] MD Susan Ayala Work Phone: [facility] 02-15-2024 13:01-0400 Body weight 72.12 kg MD Susan Ayala Work Phone: [facility] 02-15-2024 13:01-0400 Diastolic blood pressure 78 mm[Hg] MD Susan Ayala Work Phone: [facility] 02-15-2024 13:01-0400 Heart rate 82 /min MD Susan Ayala Work Phone: [facility] 02-15-2024 13:01-0400 Respiratory rate 20 /min MD Susan Ayala Work Phone: [facility] 02-15-2024 13:01-0400 SaO2% (BldA) [Mass fraction] 100 % MD Susan Ayala Work Phone: [facility] 02-15-2024 13:01-0400 Systolic blood pressure 127 mm[Hg] MD Susan Ayala Work Phone: [facility] 01-03-2024 13:56-0400 Body temperature 99.1 [degF] MD Susan Ayala Work Phone: [facility] 01-03-2024 13:56-0400 Body weight 72.12 kg MD Susan Ayala Work Phone: [facility] 01-03-2024 13:56-0400 Diastolic blood pressure 77 mm[Hg] MD Susan Ayala Work Phone: [facility] 01-03-2024 13:56-0400 Heart rate 107 /min MD Susan Ayala Work Phone: [facility] 01-03-2024 13:56-0400 Respiratory rate 16 /min MD Susan Ayala Work Phone: [facility] 01-03-2024 13:56-0400 SaO2% (BldA) [Mass fraction] 98 % MD Susan Ayala Work Phone: [facility] 01-03-2024 13:56-0400 Systolic blood pressure 147 mm[Hg] MD Susan Ayala Work Phone: [facility] 12-28-2023 13:13-0400 Body height 162.6 cm Gilson Kenyon DPM Work Phone: [facility] 12-28-2023 13:13-0400 Body mass index (BMI) [Ratio] 28.15 kg/m2 Gilson Kenyon DPM Work Phone: [facility] 12-28-2023 13:13-0400 Body weight 74.39 kg Gilson Kenyon DPM Work Phone: [facility] 12-28-2023 13:13-0400 Diastolic blood pressure 80 mm[Hg] Gilson Kenyon DPM Work Phone: [facility] 12-28-2023 13:13-0400 Heart rate 89 /min Gilson Kenyon DPM Work Phone: [facility] 12-28-2023 13:13-0400 Systolic blood pressure 130 mm[Hg] Gilson Kenyon DPM Work Phone: [facility] 12-21-2023 09:56-0400 Body height 162.56 cm MD Susan Ayala Work Phone: [facility] 12-21-2023 09:56-0400 Body mass index (BMI) [Ratio] 27.1 kg/m2 MD Susan Ayala Work Phone: [facility] 12-21-2023 09:56-0400 Body temperature 97.9 [degF] MD Susan Ayala Work Phone: [facility] 12-21-2023 09:56-0400 Body weight 71.66 kg MD Susan Ayala Work Phone: [facility] 12-21-2023 09:56-0400 Diastolic blood pressure 81 mm[Hg] MD Susan Ayala Work Phone: [facility] 12-21-2023 09:56-0400 Heart rate 95 /min MD Susan Ayala Work Phone: [facility] 12-21-2023 09:56-0400 Respiratory rate 20 /min MD Susan Ayala Work Phone: [facility] 12-21-2023 09:56-0400 SaO2% (BldA) [Mass fraction] 100 % MD Susan Ayala Work Phone: [facility] 12-21-2023 09:56-0400 Systolic blood pressure 136 mm[Hg] MD Susan Ayala Work Phone: [facility] 12-05-2023 09:05-0400 Diastolic blood pressure 82 mm[Hg] MD Susan Ayala Work Phone: [facility] 12-05-2023 09:05-0400 Heart rate 66 /min MD Susan Ayala Work Phone: [facility] 12-05-2023 09:05-0400 Respiratory rate 20 /min MD Susan Ayala Work Phone: [facility] 12-05-2023 09:05-0400 SaO2% (BldA) [Mass fraction] 100 % MD Susan Ayala Work Phone: [facility] 12-05-2023 09:05-0400 Systolic blood pressure 137 mm[Hg] MD Susan Ayala Work Phone: [facility] 11-20-2023 08:09-0400 Body height 162.56 cm MD Susan Ayala Work Phone: [facility] 11-20-2023 08:09-0400 Body weight 74.84 kg MD Susan Ayala Work Phone: [facility] 10-24-2023 12:53-0400 Body height 162.56 cm MD Susan Ayala Work Phone: [facility] 10-24-2023 12:53-0400 Body mass index (BMI) [Ratio] 27.8 kg/m2 MD Susan Ayala Work Phone: [facility] 10-24-2023 12:53-0400 Body temperature 97.9 [degF] MD Susan Ayala Work Phone: [facility] 10-24-2023 12:53-0400 Body weight 73.48 kg MD Susan Ayala Work Phone: [facility] 10-24-2023 12:53-0400 Diastolic blood pressure 83 mm[Hg] MD Susan Ayala Work Phone: [facility] 10-24-2023 12:53-0400 Heart rate 85 /min MD Susan Ayala Work Phone: [facility] 10-24-2023 12:53-0400 Respiratory rate 16 /min MD Susan Ayala Work Phone: [facility] 10-24-2023 12:53-0400 SaO2% (BldA) [Mass fraction] 98 % MD Susan Ayala Work Phone: [facility] 10-24-2023 12:53-0400 Systolic blood pressure 137 mm[Hg] MD Susan Ayala Work Phone: [facility] 10-11-2023 13:21-0400 Body height 162.56 cm MD Susan Ayala Work Phone: [facility] 10-11-2023 13:21-0400 Body mass index (BMI) [Ratio] 28.3 kg/m2 MD Susan Ayala Work Phone: [facility] 10-11-2023 13:21-0400 Body temperature 98 [degF] MD Susan Ayala Work Phone: [facility] 10-11-2023 13:21-0400 Body weight 74.84 kg MD Susan Ayala Work Phone: [facility] 10-11-2023 13:21-0400 Diastolic blood pressure 79 mm[Hg] MD Susan Ayala Work Phone: [facility] 10-11-2023 13:21-0400 Heart rate 102 /min MD Susan Ayala Work Phone: [facility] 10-11-2023 13:21-0400 Respiratory rate 20 /min MD Susan Ayala Work Phone: [facility] 10-11-2023 13:21-0400 SaO2% (BldA) [Mass fraction] 98 % MD Susan Ayala Work Phone: [facility] 10-11-2023 13:21-0400 Systolic blood pressure 133 mm[Hg] MD Susan Ayala Work Phone: [facility] 10-03-2023 13:01-0400 Body height 162.56 cm MD Susan Ayala Work Phone: [facility] 10-03-2023 13:01-0400 Body mass index (BMI) [Ratio] 28.5 kg/m2 MD Susan Ayala Work Phone: [facility] 10-03-2023 13:01-0400 Body weight 75.29 kg MD Susan Ayala Work Phone: [facility] 10-03-2023 13:01-0400 Diastolic blood pressure 73 mm[Hg] MD Susan Ayala Work Phone: [facility] 10-03-2023 13:01-0400 Heart rate 83 /min MD Susan Ayala Work Phone: [facility] 10-03-2023 13:01-0400 Systolic blood pressure 125 mm[Hg] MD Susan Ayala Work Phone: [facility] 09-21-2023 10:59-0400 Body height 162.56 cm MD Susan Ayala Work Phone: [facility] 09-21-2023 10:59-0400 Body mass index (BMI) [Ratio] 28.1 kg/m2 MD Susan Ayala Work Phone: [facility] 09-21-2023 10:59-0400 Body temperature 98 [degF] MD Susan Ayala Work Phone: [facility] 09-21-2023 10:59-0400 Body weight 74.38 kg MD Susan Ayala Work Phone: [facility] 09-21-2023 10:59-0400 Diastolic blood pressure 80 mm[Hg] MD Susan Ayala Work Phone: [facility] 09-21-2023 10:59-0400 Heart rate 77 /min MD Susan Ayala Work Phone: [facility] 09-21-2023 10:59-0400 Respiratory rate 18 /min MD Susan Ayala Work Phone: [facility] 09-21-2023 10:59-0400 SaO2% (BldA) [Mass fraction] 100 % MD Susan Ayala Work Phone: [facility] 09-21-2023 10:59-0400 Systolic blood pressure 131 mm[Hg] MD Susan Ayaal Work Phone: [facility] 08-29-2023 13:44-0400 Diastolic blood pressure 82 mm[Hg] MD Susan Ayala Work Phone: [facility] 08-29-2023 13:44-0400 Heart rate 67 /min MD Susan Ayala Work Phone: [facility] 08-29-2023 13:44-0400 Respiratory rate 16 /min MD Susan Ayala Work Phone: [facility] 08-29-2023 13:44-0400 SaO2% (BldA) [Mass fraction] 98 % MD Susan Ayala Work Phone: [facility] 08-29-2023 13:44-0400 Systolic blood pressure 146 mm[Hg] MD Susan Ayala Work Phone: [facility] 08-29-2023 12:59-0400 Body temperature 97 [degF] MD Susan Ayala Work Phone: [facility] 08-29-2023 12:29-0400 Inhaled oxygen flow rate 8 L/min MD Susan Ayala Work Phone: [facility] 08-29-2023 11:31-0400 Body weight 74.84 kg MD Susan Ayala Work Phone: [facility] 08-29-2023 11:15-0400 Body height 162.56 cm MD Susan Ayala Work Phone: [facility] 08-11-2023 10:40-0400 Body height 162.56 cm MD Susan Ayala Work Phone: [facility] 08-11-2023 10:40-0400 Body mass index (BMI) [Ratio] 28.1 kg/m2 MD Susan Ayala Work Phone: [facility] 08-11-2023 10:40-0400 Body temperature 97.5 [degF] MD Susan Ayala Work Phone: [facility] 08-11-2023 10:40-0400 Body weight 74.44 kg MD Susan Ayala Work Phone: [facility] 08-11-2023 10:40-0400 Diastolic blood pressure 80 mm[Hg] MD Susan Ayala Work Phone: [facility] 08-11-2023 10:40-0400 Heart rate 85 /min MD Susan Ayala Work Phone: [facility] 08-11-2023 10:40-0400 Systolic blood pressure 121 mm[Hg] MD Susan Ayala Work Phone: [facility] 08-01-2023 13:50-0400 Diastolic blood pressure 78 mm[Hg] MD Susan Ayala Work Phone: [facility] 08-01-2023 13:50-0400 Heart rate 72 /min MD Susan Ayala Work Phone: [facility] 08-01-2023 13:50-0400 Respiratory rate 16 /min MD Susan Ayala Work Phone: [facility] 08-01-2023 13:50-0400 SaO2% (BldA) [Mass fraction] 100 % MD Susan Ayala Work Phone: [facility] 08-01-2023 13:50-0400 Systolic blood pressure 138 mm[Hg] MD Susan Ayala Work Phone: [facility] 08-01-2023 12:58-0400 Body temperature 98.4 [degF] MD Susan Ayala Work Phone: [facility] 08-01-2023 12:33-0400 Inhaled oxygen flow rate 8 L/min MD Susan Ayala Work Phone: [facility] 08-01-2023 11:26-0400 Body height 162.56 cm MD Susan Ayala Work Phone: [facility] 08-01-2023 11:26-0400 Body mass index (BMI) [Ratio] 28.3 kg/m2 MD Susan Ayala Work Phone: [facility] 08-01-2023 11:26-0400 Body weight 74.84 kg MD Susan Ayala Work Phone: [facility] 07-11-2023 14:28-0500 Body height 162.56 cm MD Susan Ayala Work Phone: [facility] 07-11-2023 14:28-0500 Body mass index (BMI) [Ratio] 28.5 kg/m2 MD Susan Ayala Work Phone: [facility] 07-11-2023 14:28-0500 Body weight 75.46 kg MD Susan Ayala Work Phone: [facility] 07-11-2023 14:28-0500 Diastolic blood pressure 75 mm[Hg] MD Susan Ayala Work Phone: [facility] 07-11-2023 14:28-0500 Heart rate 93 /min MD Susan Ayala Work Phone: [facility] 07-11-2023 14:28-0500 Systolic blood pressure 138 mm[Hg] MD Susan Ayala Work Phone: [facility] 05-16-2023 10:00-0500 Body temperature 98.2 [degF] MD Susan Ayala Work Phone: [facility] 05-16-2023 10:00-0500 Diastolic blood pressure 78 mm[Hg] MD Susan Ayala Work Phone: [facility] 05-16-2023 10:00-0500 Heart rate 87 /min MD Susan Ayala Work Phone: [facility] 05-16-2023 10:00-0500 Respiratory rate 18 /min MD Susan Ayala Work Phone: [facility] 05-16-2023 10:00-0500 SaO2% (BldA) [Mass fraction] 99 % MD Susan Ayala Work Phone: [facility] 05-16-2023 10:00-0500 Systolic blood pressure 136 mm[Hg] MD Susan Ayala Work Phone: [facility] 05-02-2023 16:16-0500 Body height 162.56 cm MD Susan Ayala Work Phone: [facility] 05-02-2023 16:16-0500 Body weight 75.7 kg MD Susan Ayala Work Phone: [facility] 03-27-2023 14:00-0500 Body height 162.56 cm Susan Ayala Other [facility] [employer] Other 03-27-2023 14:00-0500 Body mass index (BMI) [Ratio] 28.49 kg/m2 Susan Ayala Other [employer] [facility] [employer] Other 03-27-2023 14:00-0500 Body weight 75.3 kg Susan Ayala Other [employer] Other 03-27-2023 14:00-0500 Diastolic blood pressure 84 mm[Hg] Susan Ayala Other [employer] Other 03-27-2023 14:00-0500 Systolic blood pressure 136 mm[Hg] Susan Ayala Other [employer] Other 02-06-2023 10:30-0400 Body height 162.56 cm Susan Ayala Other [employer] Other 02-06-2023 10:30-0400 Body mass index (BMI) [Ratio] 29.01 kg/m2 Susan Ayala Other [employer] Other 02-06-2023 10:30-0400 Body weight 76.66 kg Susan Ayala Other [employer] Other 02-06-2023 10:30-0400 Diastolic blood pressure 84 mm[Hg] Susan Ayala Other [employer] Other 02-06-2023 10:30-0400 Systolic blood pressure 144 mm[Hg] Susan Ayala Other [employer] Other 12-28-2022 09:30-0400 Body height 162.56 cm Susan Ayala Other [employer] Other 12-28-2022 09:30-0400 Body mass index (BMI) [Ratio] 28.15 kg/m2 Susan Ayala Other [employer] Other 12-28-2022 09:30-0400 Body weight 74.39 kg Susan Ayala Other [employer] Other 12-28-2022 09:30-0400 Diastolic blood pressure 78 mm[Hg] Susan Ayala Other [employer] Other 12-28-2022 09:30-0400 SaO2% (BldA) [Mass fraction] 96 % Susan Ayala Other [employer] Other 12-28-2022 09:30-0400 Systolic blood pressure 128 mm[Hg] Susan Ayala Other [employer] Other 09-13-2022 15:00-0400 Body height 162.56 cm Susan Ayala Other [employer] Other 09-13-2022 15:00-0400 Body mass index (BMI) [Ratio] 28.32 kg/m2 Susan Ayala Other [employer] Other 09-13-2022 15:00-0400 Body weight 74.84 kg Susan Ayala Other [employer] Other 09-13-2022 15:00-0400 Diastolic blood pressure 74 mm[Hg] Susan Ayala Other [employer] Other 09-13-2022 15:00-0400 SaO2% (BldA) [Mass fraction] 98 % Susan Ayala Other [employer] Other 09-13-2022 15:00-0400 Systolic blood pressure 142 mm[Hg] Susan Ayala Other [employer] Other 07-06-2022 10:00-0500 Body height 162.56 cm Susan Ayala Other [employer] Other 07-06-2022 10:00-0500 Body mass index (BMI) [Ratio] 28.66 kg/m2 Susan Ayala Other [employer] Other 07-06-2022 10:00-0500 Body weight 75.75 kg Susan Ayala Other [employer] Other 07-06-2022 10:00-0500 Diastolic blood pressure 62 mm[Hg] Susan Ayala Other [employer] Other 07-06-2022 10:00-0500 SaO2% (BldA) [Mass fraction] 98 % Susan Ayala Other [employer] Other 07-06-2022 10:00-0500 Systolic blood pressure 110 mm[Hg] Susan Ayala Other [employer] Other 06-14-2022 11:00-0500 Body height 162.56 cm Susan Ayala Other [employer] Other 06-14-2022 11:00-0500 Body mass index (BMI) [Ratio] 29.01 kg/m2 Susan Ayala Other [employer] Other 06-14-2022 11:00-0500 Body weight 76.66 kg Susan Ayala Other [employer] Other 06-14-2022 11:00-0500 Diastolic blood pressure 76 mm[Hg] Susan Ayala Other [employer] Other 06-14-2022 11:00-0500 SaO2% (BldA) [Mass fraction] 98 % Susan Ayala Other [employer] Other 06-14-2022 11:00-0500 Systolic blood pressure 138 mm[Hg] Susan Ayala Other [facility] [employer] Other Encounters Encounter Date Encounter Type Care Provider Facility Start: 07-18-2024 End: 07-18-2024 ambulatory Susan Ayala MD Work Phone: [facility] Work Phone: Start: 07-18-2024 End: 07-18-2024 Patient encounter procedure Susan Ayala MD Work Phone: [facility] Work Phone: Start: 07-16-2024 Registered Recurring Susan bailon MD Work Phone: [facility] Start: 07-16-2024 [address] [place] Facility:[facility] Start: 06-11-2024 End: 06-11-2024 ambulatory Susan Ayala MD Work Phone: [facility] Work Phone: Start: 06-11-2024 End: 06-11-2024 Patient encounter procedure Susan Ayala MD Work Phone: [facility] Work Phone: Start: 05-24-2024 Patient encounter status Susan Ayala MD Work Phone: [facility] Start: 05-24-2024 End: 05-24-2024 ambulatory Susan Ayala MD Work Phone: [facility] Work Phone: Start: 05-24-2024 End: 05-24-2024 Encounter for general adult medical examination without abnormal findings Susan Ayala MD Work Phone: [facility] Start: 05-24-2024 End: 05-24-2024 Patient encounter procedure Susan Ayala MD Work Phone: [facility] Work Phone: Start: 05-23-2024 Registered Recurring Susan bailon MD Work Phone: [facility] Work Phone: Start: 05-23-2024 End: 05-23-2024 ambulatory Susan Ayala MD Work Phone: [facility] Work Phone: Start: 05-23-2024 End: 05-23-2024 Patient encounter procedure Susan Ayala MD Work Phone: [facility] Work Phone: Start: 05-17-2024 End: 05-17-2024 ambulatory Susan Ayala MD Work Phone: [facility] Work Phone: Start: 05-17-2024 End: 05-17-2024 Patient encounter procedure Susan Ayala MD Work Phone: [facility] Work Phone: Start: 05-15-2024 Non-patient / Non-visit Susan Ayala MD Work Phone: [facility] Work Phone: Start: 05-14-2024 End: 05-15-2024 Telephone encounter Mabel Oscar MD Work Phone: [facility] Start: 05-14-2024 Registered Recurring Susan bailon MD Work Phone: [facility] Start: 04-16-2024 Registered Recurring Susan bailon MD Work Phone: [facility] Start: 04-10-2024 End: 04-10-2024 Bamboo flowsheet Mabel Oscar MD Work Phone: [facility] Start: 04-10-2024 End: 04-10-2024 Tiffanie flowsmike Oscar MD Work Phone: [facility] Start: 04-10-2024 End: 04-10-2024 Office outpatient new 45 minutes Mabel Oscar MD Work Phone: [facility] Comment on above: 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); ETD (Eustachian tube dysfunction), right Start: 04-10-2024 End: 04-10-2024 Clinical Support Angelica Hawkins [facility] Work Phone: [facility] Comment on above: 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); Tinnitus, right Start: 03-25-2024 End: 03-25-2024 ambulatory Susan Ayala MD Work Phone: [facility] Work Phone: Start: 03-25-2024 End: 03-25-2024 Patient encounter procedure Susan Ayala MD Work Phone: [facility] Work Phone: Start: 03-22-2024 Registered Recurring Susan bailon MD [facility] Work Phone: Start: 03-22-2024 End: 03-22-2024 ambulatory Susan Ayala MD Work Phone: [facility] Work Phone: Start: 03-22-2024 End: 03-22-2024 Patient encounter procedure Susan Ayala MD Work Phone: [facility] Work Phone: Start: 03-16-2024 End: 03-16-2024 ambulatory Susan Ayala MD Work Phone: [facility] Work Phone: Start: 03-16-2024 End: 03-16-2024 Patient encounter procedure Susan Ayala MD Work Phone: [facility] Work Phone: Start: [...] ambulatory GILSON KENYON Not Available Start: 02-27-2024 Registered Recurring Susan bailon MD Work Phone: [facility] Start: 02-20-2024 End: 02-20-2024 ambulatory MD Susan Ayala Work Phone: [facility] Work Phone: Start: 02-20-2024 End: 02-20-2024 Patient encounter procedure MD Susan Ayala Work Phone: [facility] Work Phone: Start: 02-15-2024 Registered Recurring MD Susan Ayala Work Phone: [facility] Work Phone: Start: 02-15-2024 End: 02-15-2024 ambulatory MD Susan Ayala Work Phone: [facility] Work Phone: Start: 02-15-2024 End: 02-15-2024 Patient encounter procedure MD Susan Ayala Work Phone: [facility] Work Phone: Start: 02-08-2024 Non-patient / Non-visit MD Susan Ayala Work Phone: [facility] Work Phone: Start: 01-23-2024 Registered Recurring MD Susan Ayala Work Phone: [facility] Start: 01-03-2024 End: 01-03-2024 ambulatory MD Susan Ayala Work Phone: [facility] Work Phone: Start: 01-03-2024 End: 01-03-2024 Patient encounter procedure MD Susan Ayala Work Phone: [facility] Work Phone: Start: 01-03-2024 Registered Recurring MD Susan Ayala Work Phone: [facility] Work Phone: Start: 12-28-2023 End: 12-28-2023 Bamboo flowsheet Gilson Kenyon DPM Work Phone: [facility] Start: 12-28-2023 End: 12-28-2023 Bamboo flowsheet Gilson Kenyon DPM Work Phone: [facility] Start: 12-28-2023 End: 12-28-2023 Patient encounter procedure Gilson Kenyon DPM Work Phone: [facility] Comment on above: Onychomycosis (Prima ry Dx); Toe pain, bilateral Start: 12-28-2023 End: 12-28-2023 ambulatory GILSON KENYON Not Available Start: 12-22-2023 Non-patient / Non-visit MD Susan Ayala Work Phone: [facility] Work Phone: Start: 12-21-2023 End: 12-21-2023 ambulatory MD Susan Ayala Work Phone: [facility] Work Phone: Start: 12-21-2023 End: 12-21-2023 Patient encounter procedure MD Susan Ayala Work Phone: [facility] Work Phone: Start: 12-21-2023 Registered Recurring MD Susan Ayala [facility] [facility] Work Phone: Start: 12-11-2023 Registered Recurring MD Susan Ayala Work Phone: [facility] Start: 12-06-2023 Non-patient / Non-visit MD Susan Ayala Work Phone: [facility] Work Phone: Start: 12-05-2023 Non-patient / Non-visit MD Susan Ayala Work Phone: [facility] Work Phone: Start: 12-05-2023 End: 12-05-2023 Admission to same day surgery center MD Susan Ayala Work Phone: [facility]-Digestive [facility] Work Phone: Start: 12-05-2023 End: 12-05-2023 ambulatory MD Susan Ayala Work Phone: [facility] Work Phone: Start: 12-04-2023 Registered Recurring MD Susan Ayala Work [facility] [place] [facility] Work Phone: Start: 11-29-2023 Non-patient / Non-visit MD Susan Ayala Work Phone: [facility] Work Phone: Start: 11-27-2023 Non-patient / Non-visit MD Susan Ayala Work Phone: [facility] Work Phone: Start: 11-22-2023 Non-patient / Non-visit MD Susan Ayala Work Phone: [facility] Work Phone: Start: 11-20-2023 Non-patient / Non-visit MD Susan Ayala Work Phone: [facility] Work Phone: Start: 11-15-2023 Non-patient / Non-visit MD Susan Ayala Work Phone: [facility] Work Phone: Start: 11-13-2023 Non-patient / Non-visit MD Susan Ayala Work Phone: [facility] Work Phone: Start: 11-08-2023 Non-patient / Non-visit MD Susan Ayala Work Phone: [facility] Work Phone: Start: 11-02-2023 Non-patient / Non-visit MD Susan Ayala Work Phone: [facility] Work Phone: Start: 10-31-2023 Registered Recurring MD Susan Aayla Work Phone: [facility] Start: 10-25-2023 End: 10-25-2023 ambulatory GERALDO GARCÍA Not Available Start: 10-24-2023 End: 10-24-2023 Patient encounter procedure MD Susan Ayala Work Phone: [facility] Work Phone: Start: 10-19-2023 End: 10-19-2023 ambulatory GILSON KENYON Not Available Start: 10-11-2023 End: 10-11-2023 ambulatory MD Susan Ayala Work Phone: [facility] Work Phone: Start: 10-11-2023 End: 10-11-2023 Patient encounter procedure MD Susan Ayala Work Phone: [facility] Work Phone: Start: 10-11-2023 Registered Recurring MD Susan Ayala Work Phone: [facility] Work Phone: Start: 10-03-2023 End: 10-03-2023 ambulatory MD Susan Ayala Work Phone: [facility] Work Phone: Start: 10-03-2023 End: 10-03-2023 Patient encounter procedure MD Susan Ayala Work Phone: [facility] Work Phone: Start: 09-26-2023 Non-patient / Non-visit MD Susan Ayala Work Phone: [facility] Work Phone: Start: 09-21-2023 End: 09-21-2023 Patient encounter procedure MD Susan Ayala Work Phone: [facility] Work Phone: Start: 09-21-2023 Registered Recurring MD Susan Ayala Work Phone: [facility] Work Phone: Start: 09-20-2023 End: 09-20-2023 ambulatory GERALDO H ITZKOWITZ Not Available Start: 09-19-2023 Registered Recurring MD Susan Ayala Work Phone: [facility] Start: 09-06-2023 End: 09-06-2023 ambulatory GERALDO H ITZKOWITZ Not Available Start: 08-29-2023 End: 08-29-2023 Admission to same day surgery center MD Susan Ayala [facility] [place] [facility] [place] Start: 08-29-2023 End: 08-29-2023 ambulatory MD Susan Ayala Work Phone: [facility] Work Phone: Start: 08-16-2023 End: 08-16-2023 ambulatory GERALDO H ITZKOWITZ Not Available Start: 08-11-2023 End: 08-11-2023 ambulatory MD Susan Ayala Work Phone: [facility] Work Phone: Start: 08-11-2023 End: 08-11-2023 Patient encounter procedure MD Susan Ayala Work Phone: [facility] Work Phone: Start: 08-10-2023 End: 08-10-2023 ambulatory GILSON Sejal KENYON Not Available Start: 08-09-2023 End: 08-09-2023 ambulatory GERALDO H ITZKOWIADOANY Not Available Start: 08-01-2023 End: 08-01-2023 Admission to same day surgery center MD Susan Ayala Work Phone: [facility] [place] Start: 08-01-2023 End: 08-01-2023 ambulatory MD Susan Ayala Work Phone: [facility] Work Phone: Start: 07-24-2023 Non-patient / Non-visit MD uSsan Ayala Work Phone: [facility] Work Phone: Start: 07-24-2023 End: 07-24-2023 ambulatory CHEL JOSEPH Not Available Start: 07-19-2023 End: 07-19-2023 Patient encounter procedure MD Susan Ayala Work Phone: [facility]-Pre-Surgical Testing Work Phone: Start: 07-19-2023 End: 07-19-2023 ambulatory MD Susan Ayala Work Phone: [facility] Work Phone: Start: 07-12-2023 End: 07-12-2023 Admission to same day surgery center MD Susan Ayala Work Phone: [facility]-Ultrasound Cntr for Breast Car Start: 07-12-2023 End: 07-12-2023 ambulatory GERALDO H ITZKOWITZ Not Available Start: 07-11-2023 End: 07-11-2023 Patient encounter procedure MD Susan Ayala Work Phone: [facility] Work Phone: Start: 07-04-2023 Registered Recurring MD Susna Ayala Work Phone: [facility] Start: 06-29-2023 End: 07-02-2023 ambulatory ADAMA ITZKOWITZ [facility] Start: 06-01-2023 End: 06-01-2023 ambulatory GILSON KENYON Not Available Start: 05-30-2023 Registered Recurring MD Susan Ayala Work Phone: [facility] Start: 05-16-2023 End: 05-16-2023 Admission to same day surgery center MD Susan Ayala Work Phone: [facility]-Center for Breast Care Work Phone: Start: 05-16-2023 End: 05-16-2023 ambulatory MD Susan Ayala Work Phone: [facility] Work Phone: Start: 05-02-2023 End: 05-02-2023 Patient encounter procedure MD Susan Ayala Work Phone: [facility]-Pre-Surgical Testing Work Phone: Start: 04-28-2023 End: 04-28-2023 ambulatory GERALDO H ITZKOWITZ Not Available Start: 04-10-2023 End: 04-10-2023 ambulatory Susan Ayala Other [employer] Other Start: 04-10-2023 Telephone encounter Susan Ayala [facility] Start: 04-05-2023 End: 04-05-2023 ambulatory GERALDO H ITZKOWITZ Not Available Start: 03-27-2023 End: 03-27-2023 ambulatory Susan Jamie Other [employer] Other Start: 03-27-2023 Patient encounter procedure Susan Ayala [facility] Start: 03-27-2023 Telephone encounter Susan Ayala [facility] Start: 03-21-2023 End: 03-21-2023 ambulatory Susan Jamie Other [employer] Other Start: 03-21-2023 Telephone encounter Susan Ayala [facility] Start: 03-10-2023 (Televisit) Televisit Susan Jamie Trina [facility] Start: 03-10-2023 End: 03-10-2023 ambulatory Susan Jamie Other [employer] Other Start: 03-06-2023 End: 03-06-2023 ambulatory Susan Jamie Other [employer] Other Start: 03-06-2023 Telephone encounter Susan Ayala [facility] Start: 02-06-2023 End: 02-06-2023 ambulatory Susan Jamie Other [employer] Other Start: 02-06-2023 Office outpatient visit 15 minutes Susan Jamie [facility] Start: 02-06-2023 Telephone encounter Susan Ayala [facility] Start: 12-28-2022 End: 12-28-2022 ambulatory Susan Jamie Other [employer] Other Start: 12-28-2022 Office outpatient visit 15 minutes Susan Jamie [facility] Start: 09-13-2022 End: 09-13-2022 ambulatory Susan Jamie Other [employer] Other Start: 09-13-2022 Office outpatient visit 15 minutes Susan Ayala [facility] Start: 08-26-2022 End: 08-27-[address] LITTLE STAFFORD . Facility:[facility] Start: 08-01-2022 End: 08-02-[address] LITTLE STAFFORD . Facility:[facility] Start: 07-18-2022 End: 07-18-[address] LITTLE STAFFORD . Facility:[facility] Start: 07-12-2022 End: 07-12-2022 ambulatory Susan Ayala Other [employer] Other Start: 07-12-2022 Telephone encounter Susan Ayala [facility] Start: 07-06-2022 End: 07-06-2022 ambulatory Susan Ayala Other [employer] Other Start: 07-06-2022 Office outpatient visit 15 minutes Susan Ayala [facility] Start: 06-21-2022 End: 06-21-2022 ambulatory Susan Ayala Other [employer] Other Start: 06-21-2022 Telephone encounter Susan Ayala [facility] Start: 06-14-2022 Office outpatient visit 15 minutes Susan Ayala [facility] Start: 06-14-2022 End: 06-14-2022 ambulatory MD Susan Ayala Work Phone: [facility] Work Phone: Start: 06-14-2022 End: 06-14-2022 Departed Referred MD Susan Ayala Work Phone: [facility] [facility] [place] Work Phone: Start: 04-25-2022 Adult health examination Susan Ayala Other [facility] Other Start: 04-25-2022 Gynecological examination normal Susan Ayala Other [facility] Other Start: 04-21-2022 End: 04-21-[address] SUSAN AYALA Facility:H1 Start: 04-14-2022 End: 04-15-2022 ambulatory ANIA BLANCA Facility:[facility]1 Start: 03-28-2022 End: 03-28-[address] SUSAN AYALA Facility:[facility]1 Start: 12-27-2021 End: 12-28-2021 ambulatory ANIA GIANLUCAKirk Facility:[facility]1 Procedures Date Procedure Procedure Detail Performing Clinician Start: 04-10-2024 AUDITORY FUNCTION TESTS Angelica Harperill [facility] Work Phone: Start: 03-16-2024 Quick Strep (POC) [...] Screening for malign ant neoplasm of cervix [facility] Start: 07-31-2024 Screening for malign ant neoplasm of breast Mammogram [facility] Start: 05-16-2024 End: 05-16-2024 Patient encounter procedure 05/16/2024 1:50 PM EST Procedure Visit [facility] [address] [facility] [address] [place] [address] Gilson Kenyon DPM [address] [id number] [facility] Start: 04-10-2024 End: 04-10-2024 Patient encounter procedure 04/10/2024 1:10 PM EST Office Visit [facility] [address] [facility] [address] [place] [address] Mabel Oscar MD [address] [facility] [address] [place] [address] Arrived [facility] Comment on above: Arrived Start: 03-07-2024 End: 03-07-2024 Patient encounter procedure [facility] Comment on above: 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 (Primary Dx) Start: 01-07-2024 Influenza vaccination Influenza Vacc ine (#1) [facility] Start: 12-28-2023 End: 12-28-2023 Patient encounter procedure 12/28/2023 1:10 PM EDT Procedure Visit [facility] [address] [facility] [address] [place] [address] Gilson Kenyon DPM [address] [address] Onychomycosis (Primary Dx); Toe pain, bilateral [facility] Comment on above: Onychomycosis (Prima ry Dx); Toe pain, bilateral Start: 12-05-[address] [facility] Start: 10-11-2023 Patient referral [facility] Work Phone: Start: 10-09-2023 Patient referral [facility] Work Phone: Start: 08-29-[address] [facility] Start: 08-29-2023 End: 08-29-[address] [facility] Start: 08-01-[address] [facility] Start: 08-01-[address] [facility] Start: 05-16-2023 Lumpectomy of left breast OR Breast Bx, Lumpectomy, Mass Excision (Left) [facility] Start: 06-14-[address] [facility] Start: 1965 Screening for malign ant neoplasm of colon [facility] Atopobium vaginae DN A [Presence] in Vaginal fluid by HIMANSHU with probe detection [facility] Bacterial vaginosis associated bacterium 2 DNA [Presence] in Vaginal fluid by HIMANSHU with probe detection [facility] Basophils [#/volume] in Blood by Automated count [facility] Basophils/100 leukocytes in Blood by Automated count [facility] Comprehensive metabo lic 2000 panel - Serum or Plasma [facility] Comprehensive metabo lic 1999 panel - Serum or Plasma [facility] Comprehensive metabo lic 1999 panel - Serum or Plasma [facility] DXA Skeletal system.axial Views for bone density [facility] DXA Skeletal system.axial Views for bone density [facility] Eosinophils/100 leukocytes in Blood by Automated count [facility] Erythrocyte distribution width [Ratio] by Automated count [facility] Erythrocytes [#/volu me] in Blood [facility] Hematocrit [Volume Fraction] of Blood [facility] Hemoglobin [Mass/volume] in Blood [facility] Hepatic function panel [facility] Leukocytes [#/volume ] corrected for nucleated erythrocytes in Blood by Automated coun [facility] Leukocytes [#/volume ] in Blood [facility] Lymphocytes [#/volum e] in Blood by Automated count [facility] Lymphocytes/100 leukocytes in Blood by Automated count [facility] MCH [Entitic mass] b y Automated count [facility] MCHC [Mass/volume] b y Automated count [facility] MCV [Entitic volume] by Automated count [facility] Megasphaera sp type 1 DNA [Presence] in Vaginal fluid by HIMANSHU with probe detection [facility] MG Breast - left Diagnostic [facility] Monocytes [#/volume] in Blood by Automated count [facility] Monocytes/100 leukocytes in Blood by Automated count [facility] Neutrophils [#/volum e] in Blood by Automated count [facility] Neutrophils/100 leukocytes in Blood by Automated count [facility] Nucleated erythrocyt es [Presence] in Blood by Automated count [facility] Patient Education Colon polyps H emorrhoids (DC) Diverticulosis (DC) Know your Meds [facility] Work Phone: Patient referral [facility] Work Phone: Platelet mean volume [Entitic volume] in Blood by Automated count [facility] Platelets [#/volume] in Blood [facility] XR Humerus - right Views [facility] Immunizations Immunization Date Immunization Notes Care Provider Fa [facility] 02-21-2024 influenza, injectabl e, madin paulette canine kidney, preservative free Mabel Oscar MD Work Phone: [facility] 02-21-2024 influenza virus vacc ine, unspecified formulation Gilson Kenyon DPM Work Phone: [facility] 02-28-2022 COVID-19 mRNA Bivale nt Booster (Pfizer) MD Susan Ayala Work Phone: [facility] 02-28-2022 Influenza, injectabl e, Madin Rico Canine Kidney, preservative free, quadrivalent Mabel Oscar MD Work Phone: [facility] 02-28-2022 influenza virus vacc ine, unspecified formulation Gilson Kenyon DPM Work Phone: [facility] 04-20-2021 COVID-19 mRNA, Comir leeroy (Pfizer) MD Susan Ayala Work Phone: [facility] 08-27-2020 COVID-19 mRNASteve (Pfizer) MD Susan Ayala Work Phone: [facility] 08-07-2020 COVID-19 Steve Pimentel (Pfizer) MD Susan Ayala Work Phone: [facility] 01-23-2017 influenza, injectabl e, quadrivalent, preservative free Mabel Oscar MD Work Phone: [facility] 02-22-2016 influenza, injectabl e, quadrivalent, preservative free Mabel Oscar MD Work Phone: [facility] 02-05-2015 influenza, seasonal, injectable, preservative free Mabel Oscar MD Work Phone: [facility] 02-26-1997 influenza, seasonal, injectable Mabel Oscar MD Work Phone: [facility] 02-26-1997 pneumococcal polysaccharide vaccine, 23 valent Mabel Oscar MD Work Phone: [facility] Payers Date Payer Category Payer Unknown [id number] 2022 Self-pay [id number] 2019 Medicare HUMANA MEDICARE ADVANTAGE HU[employer]NA MEDICARE [id number] 2019-Present [address] [address] [place] [address] [id number] 2019 Medicare (Managed Care) HUMANA M EDICARE ADVANTAGE [id number] 2017 Medicaid [id number]. [id number] 1964 Unknown [id number] 2.16.840.1.847376.3.579.2. 593 1964 Unknown [id number] 2.16.840.1.267475.3.579.2. 593 1964 Unknown [id number] 2.16.840.1.922541.3.579.2. 593 1964 Unknown [id number] 2.16.840.1.326112.3.579.2. 593 1964 Unknown [id number] 2.16.840.1.260582.3.579.2. 593 1964 Unknown [id number] 2.16.840.1.546313.3.579.2. 593 1964 Unknown [id number] 2.16.840.1.997302.3.579.2. 593 1964 Unknown [id number] 2.16.840.1.932843.3.579.2. 177 1964 Unknown [id number] 2.16.840.1.052358.3.579.2. 1259 1964 Unknown [id number] 2.16.840.1.558681.3.579.2. 1259 1964 Unknown [id number] 2.16.840.1.026778.3.579.2. 1259 1964 Unknown [id number] 2.16.840.1.850656.3.579.2. 1259 1964 Unknown [id number] 2.16.840.1.229224.3.579.2. 1259 1964 Unknown [id number] 2.16.840.1.619255.3.579.2. 1259 1964 Unknown [id number] 2.16.840.1.620507.3.579.2. 1258 1964 Unknown [id number] 2.16.840.1.121980.3.579.2. 1258 1964 Unknown [id number] 2.16.840.1.506348.3.579.2. 1258 1964 Unknown [id number] 2.16.840.1.146251.3.579.2. 1258 1964 Unknown [id number] 2.16.840.1.487312.3.579.2. 1258 1964 Unknown [id number] 2.16.840.1.957628.3.579.2. 1258 1964 Unknown [id number] 2.16840.1.946761.3.579.2. 1258 1964 Unknown [id number] 2.16840.1.751082.3.579.2. 9 1960 Medicaid [id number] 1960 Medicare [id number] 2.0.1.273796.19 Medicaid Medicaid [id number] Medicare [id number] Medicare Medicare [id number] Unknown [place] MCR PFFS [id number] Unknown [id number] 2.16.840.1.378355.3.579.2. 531 Unknown [id number] 2.16.840.1.423410.3.579.2. 531 Unknown [id number] 2.16840.1.065076.3.579.2. 531 Unknown [id number] 2.16.840.1.801456.3.579.2. 531 Unknown [id number] 2.16.840.1.038549.3.579.2. 531 Unknown [id number] 2.16.840.1.340218.3.579.2. 531 Social History Date Type Detail Facility Tobacco smoking stat us [facility] Unknown if ever smoked [facility] Work Phone: Start: 1965 Sex Assigned At Female [facility] Start: 12-28-2023 End: 04-10-2024 Sex Assigned At [facility] Other Start: 05-02-2023 End: 03-16-2024 Tobacco smoking status MAIS Ex-smoker (finding) [facility] End: 05-08-2016 History of tobacco use Current smoker [facility] End: 05-08-2016 History of tobacco use Cigarette Smoker [facility] Start: 12-28-2023 End: 04-10-2024 Alcoholic beverage intake Ex-drinker (finding) [facility] Start: 12-28-2023 End: 04-10-2024 History of Social function [facility] Start: 1965 Sex assigned at Not on file N [facility] Start: 03-16-2024 End: 07-18-2024 Sex Female (finding) [facility] Start: 04-10-2024 Tobacco use and exposure Smokeless tobacco non-user [facility] Medical Equipment Procedure Code Equipment Code Equipment Origin al Text Equipment Identifier Dates Biopsy, breast, with lumpectomy Imaging lesion localization marker, implantable [id number] [facility] Start: 08-01-2023 Goals Date Patient Goal Desired Activity /State Clinical Notes 06-14-2022 to 05-23-2024 Note Date & Type Note Facility 05-23-2024 Progress note [facility] 05-17-2024 Evaluation note Diagnosis Onset Date Resolution Sinusitis, acute maxillary acute May 17 11:14am Breast pain, left acute May 23, 2024 11:41am Invasive ductal carcinoma of left breast acute May 23, 2024 11:41am Osteopenia acute May 23, 2024 11:41am Invasive ductal carcinoma of left breast acute May 24, 2024 1:23pm Type 2 diabetes mellitus with hyperglycemia acute May 24, 2024 1:23pm Wellness examination acute Ralf chacha 2024 1:23pm Bacterial conjunctivitis of right eye acute June 11 8:41am [facility] Work Phone: 1(282) 881-885901-07-2025 Telephone encounter Note* Telephone Encounter - Mabel Oscar MD - 05/14/2024 4:18 PM EST Send discharge note [facility] [id number] Miscellaneous Notes* Telephone Encounter - Mabel Oscar MD - 05/14/2024 4:18 PM EST Send discharge note * Telephone Encounter - Nazia Oscar - 05/14/2024 1:24 PM EST Called pt/explained about the importance of having the MRI and appt with Dr Oscar, pt said she does not want to have it done or schedule any appts. * Telephone Encounter - Mabel Oscar MD - 05/14/2024 11:25 AM EST Advise patient she should still get the MRI because steroids can decrease swelling in a tumor that restores hearing, so having a tumor is not excluded by the hearing retuirning * Telephone Encounter - Nazia Oscar - 05/14/2024 11:18 AM EST Pt called in to cancel her appts due to her hearing coming back. Pt was scheduled with audio, Dr's appt, and MRI. documented in this encounterBo[facility] [id number] Telephone encounter Note* Telephone Encounter - Nazia Oscar - 05/14/2024 1:24 PM EST Called pt/explained about the importance of having the MRI and appt with Dr Oscar, pt said she does not want to have it done or schedule any appts. [facility] [id number] Telephone encounter Note* Telephone Encounter - Mabel Oscar MD - 05/14/2024 11:25 AM EST Advise patient she should still get the MRI because steroids can decrease swelling in a tumor that restores hearing, so having a tumor is not excluded by the hearing retuirning [facility] [id number] Telephone encounter Note* Telephone Encounter - Nazia Oscar - 05/14/2024 11:18 AM EST Pt called in to cancel her appts due to her hearing coming back. Pt was scheduled with audio, 's appt, and MRI. [facility] [id number] History of Present illness Narrative* Mabel Oscar MD - 04/10/2024 1:10 PM EST Subjective Patient ID: Melony Manley is a [...] Heart disease Father Cancer Maternal Grandmother Cecile Flores Diabetes Maternal Grandmother Cecile Flores Colon cancer Neg Hx Breast cancer Neg Hx Ovarian cancer Neg Hx Active Ambulatory Problems Diagnosis Date Noted Malignant neoplasm of central portion of left breast in female, estrogen receptor positive ([facility]) 05/19/2023 Abnormal mammogram 04/08/2024 Allergic rhinitis 04/08/2024 Breast pain, left 04/08/2024 Elevated fasting glucose 04/08/2024 GERD (gastroesophageal reflux disease) 04/08/2024 Hyperlipidemia ([facility]) 04/08/2024 Invasive ductal carcinoma of left breast ([facility]) 04/08/2024 Osteopenia 04/08/2024 Right acute otitis media 04/08/2024 Right arm pain 04/08/2024 Screening for colon cancer 04/08/2024 Stage 3 chronic kidney disease (HCC) ([facility]) 04/08/2024 Type 2 diabetes mellitus with hyperglycemia ([facility]) 04/08/2024 Resolved Ambulatory Problems Diagnosis Date Noted No Resolved Ambulatory Problems Past Medical History: Diagnosis Date Bipolar 1 disorder ([facility]) Breast cancer ([facility]) 03/2023 Ear problems HL (hearing loss) Hypothyroid ([facility]) Schizophrenia ([facility]) Past Surgical History: Procedure Laterality Date [...] Pain - numeric: 8/10 documented in this [facility]12-04-2024 History of Present illness Narrative* MAGI RubioA - 04/10/2024 1:00 PM EST History: Pt was referred to ENT because of right sided hearing loss, onset 03-16-24. Initially pt had pain inthe right ear followed by hearing loss. Pt [...] 50 dBHL = 100% documented in this [facility]11-09-2024 Evaluation note* Diagnosis Onset Date Resolution Status [...] 11:41am Osteopenia acute May 23, 2024 11:41am [facility] Work Phone: 1(348) 666-801211-09-2024 Evaluation note* Diagnosis Onset Date Resolution Status [...] acute May 24 1:23pm Wellness examination acute 2024 1:23pm [facility] Work Phone: 1(408) 214-828011-09-2024 Evaluation note* Diagnosis Onset Date Resolution Status [...] acute May 24 1:23pm Wellness examination acute 2024 1:23pm Bacterial conjunctivitis of right eye acute June 11 8:41am [facility] Work Phone: 1(698) 893-731110-31-2024 History of Present illness Narrative* Gilson Kenyon, DPM - 03/07/2024 1:30 PM EDT Patient: Melony [...] Breast cancer (CMS/HCC) 03/2023 Left Breast IDC ER/MA+ Her 2 pend Hyperlipidemia (CMS/HCC) Hypothyroid (CMS/HCC) [...] condition and treatment of condition. Continue with jwsy-rnk-ctjmtrf creams to feet p.r.n. Gilson Kenyon DPM documented in this encounterBoone Hospital CenterOuezsedtyc11-28-2787 Evaluation note* Diagnosis Onset Date Resolution Status [...] otitis media acute March 25, 2024 2:36pm [facility] Work Phone: 1(230) 822-706808-28-2024 Evaluation note* Diagnosis Onset Date Resolution Status [...] Sore throat noneactive March 16, 2024 9:09am [facility] Work Phone: 1(291) 557-653408-28-2024 Evaluation note* Diagnosis Onset Date Resolution Status [...] 10:25am Osteopenia acute March 22, 2024 10:25am [facility] Work Phone: 1(711) 297-239508-28-2024 Evaluation note* Diagnosis Onset Date Resolution Status [...] 10:25am Osteopenia acute March 22, 2024 10:25am [facility] Work Phone: 1(400) 467-504908-22-2024 History of Present illness Narrative* Gilson Kenyon, IDALMIS - 12/28/2023 1:10 PM EDT Patient: Melony [...] Date Bipolar 1 disorder (CMS/HCC) Breast cancer ([facility]) 03/2023 Left Breast IDC ER/MA+ Her 2 pend Hyperlipidemia ([facility]) Hypothyroid (CMS/HCC) Schizophrenia ([facility]) Medications: Current Outpatient Medications: alendronate (Fosamax) [...] Types: Cigarettes Quit date: 2016 Years since quittin.6 Smokeless tobacco: Not on [...] condition and treatment of condition. Continue with ycis-pzv-gzudimc creams to feet p.r.n. Gilson Kenyon DPM documented in this encounterBoone Hospital CenterTcjlhwcllb21-02-0297 Chief complaint+Reason for visit Narrative* Chief Complaint [...] Invasive ductal carcinoma of left breast Osteopenia [facility] Work Phone: 1(745) 700-579607-30-[address] [facility] Evaluation note* Encounter Date Diagnosis Assessment Notes Treatment Notes Treatment Clinical Notes Mar, Invasive ductal carcinoma of left breast (ICD-10 - C50.912) Reviewed results. Grade 1. D/w daughter on speaker - phone. Appt made w Dr. García on 04/05 at 2pm. Path report and mamm reports sent to their office. [facility] Other 11-14-2023 Evaluation note* Encounter Date Diagnosis Assessment Notes Treatment Notes Treatment Clinical Notes Mar, Elevated triglycerides with high cholesterol (ICD-10 - E78.2) [facility] Other 11-03-2023 Evaluation note* Encounter Date Diagnosis [...] verbalized understanding and agreement with treatment plan. [facility] Other 10-02-2023 Evaluation note* Encounter Date Diagnosis Assessment Notes Treatment Notes Treatment Clinical Notes Feb, Abnormal mammogram of left breast (ICD-10 - R92.8) [facility] Other 10-02-2023 Evaluation note* Encounter Date Diagnosis Assessment Notes Treatment Notes Treatment Clinical Notes Feb, Elevated triglycerides with high cholesterol (ICD-10 - E78.2) Called pharmacy. They do not carry the med she is interested in the [place]. Changed rx and sent to [facility]. [facility] Other 08-23-2023 Evaluation note* Encounter Date Diagnosis Assessment Notes Treatment Notes Treatment Clinical Notes Dec, Elevated fasting glucose (ICD-10 - R73.01) Pt states Dr. Blanca is helping her wean the zyprexa. Will recheck labs listed below and return for OV in Apr. Dec, Hypothyroidism (ICD-10 - E03.9) Labs reviewed and normal. Continue present medication [facility] Other 05-09-2023 Evaluation note* Encounter Date Diagnosis Assessment Notes Treatment Notes Treatment Clinical Notes September, Skin candidiasis (ICD-10 - B37.2) Very mild erythema and discoloration. Recommend OTC Gold Valadez Powder. Call if not improving. [facility] Other 03-01-2023 Evaluation note* Encounter Date Diagnosis [...] w him from our last office visit. [facility] Other 02-07-2023 Evaluation note* Encounter Date Diagnosis Assessment Notes Treatment Notes Treatment Clinical Notes Jun, Acute vaginitis (ICD-10 - N76.0) New problem - sent culture for yeast/BV/trich. will call in 1-2 days when results are back. [facility] Other Chief complaint+Reason for visit Narrative* Chief [...] Osteopenia Invasive ductal carcinoma of left breast [facility] Work Phone: Evaluation noteNo assessment information available [facility] Work Phone: Evaluation noteNo InformationNort [email or web address] Other Evaluation note* Diagnosis Onset Date Resolution Status Hematoma of breast following procedure acute [facility] Work Phone: Evaluation note* Diagnosis Onset Date Resolution Status Hematoma of breast following procedure acute Allergic rhinitis acute GERD (gastroesophageal reflux disease) acute Hyperlipidemia acute [facility] Work Phone: evaluation note* Diagnosis Onset Date Resolution Status Hematoma of breast following procedure acute Allergic rhinitis acute GERD (gastroesophageal reflux disease) acute Hyperlipidemia acute Invasive ductal carcinoma of left breast acute Osteopenia acute [facility] Work Phone: Evaluation note* Diagnosis Onset Date Resolution Status Allergic rhinitis acute GERD (gastroesophageal reflux disease) acute Hyperlipidemia acute Invasive ductal carcinoma of left breast acute Osteopenia acute Screening for colon cancer a cute Type 2 diabetes mellitus with hyperglycemia acute Invasive ductal carcinoma of left breast acute Osteopenia acute [facility] Work Phone: evaluation note* Diagnosis Onset Date Resolution Status Invasive ductal carcinoma of left breast acute Osteopenia acute Screening for colon cancer a cute Type 2 diabetes mellitus with hyperglycemia acute Invasive ductal carcinoma of left breast acute Osteopenia acute Invasive ductal carcinoma of left breast acute [facility] Work Phone: evaluation note* Diagnosis Onset Date Resolution Status Screening for colon cancer a cute Type 2 diabetes mellitus with hyperglycemia acute Invasive ductal carcinoma of left breast acute Osteopenia acute Invasive ductal carcinoma of left breast acute Invasive ductal carcinoma of left breast acute Osteopenia acute [facility] Work Phone: evaluation note* Diagnosis Onset Date Resolution Status Invasive ductal carcinoma of left breast acute Osteopenia acute Invasive ductal carcinoma of left breast acute Invasive ductal carcinoma of left breast acute Osteopenia acute Invasive ductal carcinoma of left breast acute [facility] Work Phone: Evaluation note* Diagnosis Onset Date Resolution Status Invasive ductal carcinoma of left breast acute Osteopenia acute Invasive ductal carcinoma of left breast acute Invasive ductal carcinoma of left breast acute Osteopenia acute [facility] Work Phone: evaluation note* Diagnosis Onset Date Resolution Status Invasive ductal carcinoma of left breast acute Osteopenia acute Invasive ductal carcinoma of left breast acute Invasive ductal carcinoma of left breast acute Osteopenia acute Right arm pain acute [facility] Work Phone: Evaluation note* Diagnosis Pain [...] Toe pain, bilateral documented in this encounter [facility] HealthcareHistory and physical note Author Lisa Rubalcava [facility] December 05, 2023 7:53am Note Date/Time December 05, 2023 7:54 am [facility] [address] [place] [address] Gastroenterology H&P Signed Patient: Melony Manley MR#: [id number] : 1965 Acct:[id number] Age/Sex: 58 / F Adm Date: 4 Loc: Room: Type: [facility] Attending Dr: Lisa Rubalcava DO Copies to: Lisa Rubalcava, DO Susan Ayala MD~ Date of Service: 12/05/2023 HISTORY & [...] DO Documented By: Lisa Rubalcava DO 12/05/23 075 Signed By: <Electronically signed by Lisa Rubalcava DO> 12/05/23 0753 [facility] Work Phone: History general [...] Pain of right upper arm Medical History [place] use Medical History Vaginal atrophy Surgical History tubal ligation 2016 Surgical History wisdom teeth Surgical History CATARACT EXTRACTION- LEFT 01/25 17 Surgical History DETACHED RETINE REPAIR (LEFT) 0 06/2021 Surgical History CATARACT EXTRACTION- RIGHT 02/06 017 Hospitalization History SEE SURGICAL HX [facility] Other Hospital Discharge instructions Additional Instructions DISCHARGE [...] pain unless a prescription was provided.[facility] Work Phone: Hospital Discharge instructions Additional [...] pain unless a prescription was provided.[facility] Work Phone: Progress note Author Christine Velazquez [facility] December 21, 2023 10:26am Note Date/Time December 21, 2023 9: 55am [facility] [place] [address] Cancer Center Note Signed Patient: Melony Manley MR#: [id number] : 1965 Acct:[id number] Age/Sex: 58 / F Type: REG AMB Date of Service: 12/21/23 Copies to: Susan Ayala MD~ Assessment & Plan A/P (1) Invasive ductal carcinoma of left breast: (2) Osteopenia: Plan Melony is a 58-year-old nice lady with a stage IIa, pT1b, PN 1, MX left breast centrally located invasive ductal carcinoma with 1+ out of 4 lymph node for invasive cancer. ER/MA reported from the 03/20/2023 core biopsy to be ER 100% positive, PER 60% positive and HER2 manolo 2+ by IHC, negative by FISH, Ki 67 low 5%. Surgical pathology report is not dictating the status of the ER, MA and HER2/manolo. Initial consult for medical oncology on 09/21/2023: We went over her new diagnosis of new left breast invasive ductal carcinoma, stage IIa, and we went over and discussed possible options of treatment based on the ER, MA and HER2/manolo status considering that she has [...] She had DEXA scan in 07/2022 at [facility]. 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 She will need screening mammogram as well every july. For her mild chronic thrombocytopenia, it may be related to [place] and Seroquelbut will check Iron studies, B12 [...] is reported in the surgeon note as ER/MA positive and HER2/manolo pending however there are [...] not report any status of the ER, MA and HER2/manolo, however Dr. García note to dictate that patient was ER/MA positive and HER2/manolo was pending. Left breast [...] nipple 08/01/23 Lumpectomy path: Pathological Diagnosis A. Halbur node, left axilla, biopsy: Metastatic carcinoma to [...] Examined (sentinel and non-sentinel): 4 Number of Halbur Nodes Examined: 4 pTNM CLASSIFICATION (AJCC 8th [...] it was ER positive on the percent, MA +60%, low Ki-67 of only 5%, HER2 [...] She had DEXA scan in 07/2022 at [facility]. It revealed osteopenia with Tscore [...] HER2/manolo and actual path report for the ER/MA status, possibly need Oncotype Dx testing to determine if she needs adjuvant chemotherapy. She will need adjuvant radiation. She will need adjuvant endocrine therapy if she is ER/MA positive. Intake Vitals/Pain Assessment 12/21/23 09:56 Height [...] taking Letrozole for the last 6 days. [facility] Medical History Medical History Diabetes Osteopenia Invasive ductal carcinoma of left breast Left breast cancer with T3 tumor, >5 cm in greatest dimension Ingrown right greater toenail removed Ingrown left greater toenail removed Fibrocystic breast determined by biopsy Vaginal atrophy [place] use Elevated fasting glucose Former smoker Depression [...] signed by Christine Velazquez MD> 12/21/23 1026 [facility] Work Phone: Progress note Author Gaurav Jaime [facility] January 03, 2024 2:37pm Note Date/Time January 03, 2024 1: 58pm [facility] [place] [address] Cancer Center Note Signed Patient: Melony Manley MR#: [id number] : 1965 Acct:[id number] Age/Sex: 58 / F Type: REG AMB Date of Service: 01/03/24 Copies to: Susan Ayala MD~ Assessment & Plan (1) Invasive ductal carcinoma of left breast: Plan: Return to clinic as needed Assessment: 58-year-old female with [id number] invasive ductal carcinoma of the left breast, grade 2, ER/MA positive HER2 negative. Patient has undergone lumpectomy [...] carcinoma, provisional grade 1, with DCIS. Strongly ER/MA positive HER2 was equivocal 2+ There is [...] margin was less than 1 mm posteriorly. Halbur lymph node biopsy showed macrometastasis and 1 of 4 lymph nodes size of the largest manjit metastatic deposit was 4 mm. There was extranodal extension present 2 mm or less. [id number] 08/29/2023 return to OR for reexcision, no [...] Reaction - Last Reconciled 01/03/24 by Shanti Mesa, CORRINE alendronate 70 mg PO QWEEK ascorbic acid [...] Fall Precaution Measures Taken: Patient in chair [facility] Medical History Medical History Diabetes Osteopenia Invasive ductal carcinoma of left breast Left breast cancer with T3 tumor, >5 cm in greatest dimension Ingrown right greater toenail removed Ingrown left greater toenail removed Fibrocystic breast determined by biopsy Vaginal atrophy [place] use Elevated fasting glucose Former smoker Depression [...] <Electronically signed by Gaurav Jaime MD> 01/03/24 9136 [facility] Work Phone: Progress note Author Christine Velazquez [facility] Note Date/Time May 23, 2024 1 2:13pm [facility] [place] [address] Cancer Center Note Signed Patient: Melony Manley MR#: [id number] : 1965 Acct:[id number] Age/Sex: 59 / F Type: REG AMB Date of Service: 05/23/24 Copies to: Susan Ayala MD~ Assessment & Plan A/P (1) Invasive ductal carcinoma of left breast: (2) Osteopenia: (3) Breast pain, left: Plan Melony is a 58-year-old nice lady with a stage IIa, pT1b, pN1, MX left breast centrally located invasive ductal carcinoma with 1+ out of 4 lymph node for invasive cancer. ER/MA reported from the 03/20/2023 core biopsy to be ER 100% positive, PER 60% positive and HER2 manolo 2+ by IHC, negative by FISH, Ki 67 low 5%. Surgical pathology report is not dictating the status of the ER, MA and HER2/manolo. Initial consult for medical oncology on 09/21/2023: We went over her new diagnosis of new left breast invasive ductal carcinoma, stage IIa, and we went over and discussed possible options of treatment based on the ER, MA and HER2/manolo status considering that she has [...] She had DEXA scan in 07/2022 at [facility]. It revealed osteopenia with Tscore [...] recurrence, which she would like done at [place]. We will call with results. Otherwise she [...] bone density scan was in 07/2022 at [facility],next one will be 07/2024. She will need screening mammogram as well every March. For her mild chronic thrombocytopenia, it may be related to [place] and Seroquelbut will monitor her CBC, CMP, [...] is reported in the surgeon note as ER/MA positive and HER2/manolo pending however there are [...] not report any status of the ER, MA and HER2/manolo, however Dr. García note to dictate that patient was ER/MA positive and HER2/manolo was pending. Left breast [...] nipple 08/01/23 Lumpectomy path: Pathological Diagnosis A. Halbur node, left axilla, biopsy: Metastatic carcinoma to [...] Examined (sentinel and non-sentinel): 4 Number of Halbur Nodes Examined: 4 pTNM CLASSIFICATION (AJCC 8th [...] it was ER positive on the percent, MA +60%, low Ki-67 of only 5%, HER2 [...] She had DEXA scan in 07/2022 at [facility]. It revealed osteopenia with Tscore [...] up with labs for review. Taking Letrzole. [facility] Medical History Medical History Diabetes Osteopenia Invasive ductal carcinoma of left breast Left breast cancer with T3 tumor, >5 cm in greatest dimension Ingrown right greater toenail removed Ingrown left greater toenail removed Fibrocystic breast determined by biopsy Vaginal atrophy [place] use Elevated fasting glucose Former smoker Depression [...] 11:05/15/24 Calcium 10.3 mg/dL (8.5-10.1) H 05/15/24 11:05/15/24 Total Bilirubin 0.5 mg/dL (0.2-1.0) 05/15/24 11:00 05/15/24 AST 27 U/L (15-37) 05/15/24 11:05/15/24 ALT 38 U/L (14-59) 05/15/24 11:00 05/15/24 Alkaline Phosphatase 105 U/L (46-116) 05/15/24 11:00 05/15/24 Total Protein 7.4 g/dL (6.4-8.2) 05/15/24 11:00 05/15/24 Albumin 4.0 g/dL (3.4-5.0) 05/15/24 11:00 05/15/24 Lactate Dehydrogenase 154 U/L (81-234) 05/15/24 11:00 05/15/24 Dictated By: Christine Velazquez MD DD/ [id number] Signed By: <Electronically signed by Christine Velazquez MD> 05/23/24 1213 [facility] Work Phone: Advance Directives Advance Directive Response Recorded Date/ Time Advance Directives No January 3:39pm Advance Directive Response Recorded Date/ Time Advance Directives No January 4:39pm Advance Directive Response Recorded Date/ Time Advance Directives No March 16, 2024 9:07am Advance Directive Response Recorded Date/ Time Advance Directives No March 16, 2024 10:07am Summary Purpose Family History Relationship Condition Age [...] inoma of left breast (C50.912) Referral Organization [facility] Ivis hayes Referring Provider First Name Susan Referring Provider Last Name Jamie Referring Provider Specialty Family [facility] Referred Organization [facility] Referred Provider Geraldo García Referred Address ,[place], [place],[address] Referred Provider Specialty Surgery Referral Priority Routine [...] of breast f ollowing procedure Chief Complaint Check Up abnormal mri left [...] BH f/u moved up from 01/02 per 8 triage Left breast cancer Med Onc/Rad Onc Follow Up 1 Month Reason for Visit Invasive ductal carc inoma of left breast Osteopenia Invasive ductal carcinoma of left breast Invasive ductal carcinoma of left breast Osteopenia Invasive ductal carcinoma of left breast Chief Complaint Left breast cancer Left breast cancer Screening Screening Amb Documentation f/u moved up from 8 per 8/8 triage Med Onc/Rad Onc Follow Up 1 [...] 0:22am Type 2 diabetes mellitus with hyperglyce [facility] February 20, 2024 10:22am Right acute [...] 0:22am Type 2 diabetes mellitus with hyperglyce [facility] February 20, 2024 10:22am Right acute [...] 10:38am UC follow up, not feeling better Novembe r 2023 2:36pm Reason for Visit Admit Date Invasive ductal carcinoma of left breast January 03, 2024 1:43pm Invasive ductal carcinoma of left breast February 15, 2024 12:46pm Osteopenia February 15, 2024 1 2:46pm Right arm pain February 20, 2024 1 0:22am Type 2 diabetes mellitus with hyperglyce [facility] February 20, 2024 10:22am Right acute otitis media March 16, 024 9:09am Generalized body aches March 16 [...] 10:38am UC follow up, not feeling better Novembe r 2023 2:36pm BH April 16, 2024 12:53pm Cough/COVID- May 17, 2024 1 1:14am Reason for Visit Admit Date Right arm pain February 20, 2024 1 0:22am Type 2 diabetes mellitus with hyperglyce [facility] February 20, 2024 10:22am Right acute otitis media March 16, 024 9:09am Generalized body aches March 16 [...] not feeling better Novembe r 2023 2:36pm May 14, 2024 12 :00pm [...] F/U from triage March 22, 2024 10:25am follow up, not feeling better [facility] 2023 2:36pm May 14, 2024 12 :00pm [...] Date Right acute otitis media March 16, 024 9:09am Generalized body aches March 16 [...] 1:23pm Type 2 diabetes mellitus with hyperglyce [facility] May 24, 2024 1:23pm Wellness examination May 24, 2024 1:23pm Bacterial conjunctivitis of right eye Fe bru2024 8:41am Chief Complaint Admit Date Cough/COVID- May 17, 2024 1 1:14am Follow Up May 23, 2024 1 1:41am Left breast cancer May 23, 2024 1 1:42am well adult May 24, 2024 1 :23pm pink eye June 11, 2024 8 :41am BH July 16, 2024 1:0 0pm sinus congestion July 18, 2024 1:1 3pm Reason for Visit Admit Date Sinusitis, acute maxillary May 17, 2024 11:14am [...] 2024 End: May 17, 2024 Team Status: Inactive Member Role Status [...] June 11, 2024 End: June 11, 2024 Team Status: Active Member Role Status Dates Gavin Plaza MD Attending Provider Active Start: July 16, 2024 Team Status: Inactive Member Role Status Dates Susan Ayala MD Primary Care Provider Active Start: July 18, 2024 End: July 18, 2024 Sofi Watson APRN ACADEMIC PHYSICIAN-C Attending Provider Act manish Start: July 18, 2024 End: July 18, 2024 Team Status: Active Member Role Status [...] Status: Inactive Member Role Status Dates Susan yAala MD Primary Care Provide r, Attending Provider Active Start: February 20, 2024 End: February 20, 2024 Team Status: Active Member Role Status Dates Gavin Plaza MD Attending Provider Active Start: February 27, 2024 Team Status: Inactive Member Role Status Dates Susan Ayala MD Primary Care Provider Active Start: March 16, 2024 End: March 16, 2024 BELLE Hdez RN ACADEMIC PHYSICIAN-C Attending Provider Active Start: March 16, 2024 [...] Provider Active Start: November 02, 2023 Geraldo Itsophiakoyue , DO Referring Provider [...] Provider Active Start: November 22, 2023 Geraldo Marcus , DO Referring Provider Active Start: November [...] Aayla MD Primary Care Provider Active Start: July [...] Attending Provider Active Start: December 04, 2023 Enrichment Teacher Relationship Specialty Start Date End Date Susan Ayala MD [address] [place] [address] PCP - General Family Medicine 03/15/23 Enrichment Teacher Relationship Specialty Start Date End Date Susan Ayala MD [address] [place] [address] PCP - [facility] Family Medicine 03/15/23 Team Status: Inactive Member [...] March 25, 2024 End: March 25, 2024 Enrichment Teacher Relationship Specialty Start Date End Date Susan Ayala MD [address] [place] [facility] [place] [address] PCP - General Family Medicine 03/15/23 Enrichment Teacher Relationship Specialty Start Date End Date Susan Ayala MD [address] [place] [facility] [place] [address] PCP - General Family Medicine 03/15/23 Enrichment Teacher Relationship Specialty Start Date End Date Susan Ayala MD [address] [place] [facility] [place] [address] PCP - General Family Medicine 03/15/23 Enrichment Teacher Relationship Specialty Start Date End Date Susan Ayala MD [address] [place] [facility] [place] [address] PCP - General Family Medicine 03/15/23 Enrichment Teacher Relationship Specialty Start Date End Date Susan Ayala MD [address] [place] [facility] [place] [address] PCP - General Family Medicine 03/15/23 Team [...] June 11, 2024 End: June 11, 2024 Team Status: Active Member Role Status Dates Gavin Plaza MD Attending Provider Active Start: July 16, 2024 Team Status: Inactive Member Role Status Dates Susan Ayala MD Primary Care Provider Active Start: July 18, 2024 End: July 18, 2024 Sofi Watson APRN ACADEMIC PHYSICIAN-C Attending Provider Act manish Start: July 18, 2024 End: July 18, 2024 Goals (unrecognized section and content) Goals [...] DATE CREATED AUTHOR AUTHOR'S ORGANIZ ATION 07/07/2023 [facility] DATE CREATED AUTHOR AUTHOR'S ORGANIZ ATION 03/09/2024 [facility] EPIC DATE CREATED AUTHOR AUTHOR'S ORGANIZ ATION 07/16/2024 [facility] FOR RECORDS PERTAINING TO PATIENTS [...] BE BASED ON THE PRIMARY CLINICAL RECORDS. [facility] [employer] [facility]. provides no warranty or guarantee of the accuracy or completeness of information in this document.
[2024-08-02 16:17] LABS: Creatinine Urine Random 17.19 mg/dL (20.00-300.00); Microalbumin Urine Random <1.3 mg/dL (<=30.0)
== END 2024-08-02 15:45 | disposition home or self-care (01) ==
LOC: LAB 15:46
PROVIDERS: PCP Family Medicine; Visit Provider Family Medicine
DX: N18.30 Chronic kidney disease, stage 3 unspecified (principal)
CPT/HCPCS: 82043; 82570

== ENCOUNTER 2024-09-11 10:23 | Outpatient (OUT) | payer MEDICARE, MEDICAID, SELFPAY ==
[2024-09-11 11:04] LABS: Thyroid Stimulating Hormone 2.503 uIU/mL (0.358-3.740)
[2024-09-11 11:40] LABS: Free T4 0.72 ng/dL (0.76-1.46)
== END 2024-09-11 10:24 | disposition home or self-care (01) ==
LOC: LAB 10:26
PROVIDERS: PCP Family Medicine; Visit Provider Family Medicine
DX: E03.9 Hypothyroidism, unspecified (principal)
CPT/HCPCS: 36415; 84439; 84443

== ENCOUNTER 2024-10-14 08:49 | Emergency (ER) | payer MEDICARE, MEDICAID, SELFPAY ==
[2024-10-14 08:58] VITALS: BP 159/76; PULSE 81; TEMP 36.9; O2SAT 98; BMI 27.5
--- NOTE | 2024-10-14 09:07 | XR_ITS ---
The [address] [address] Patient Name: NAOMI MANLEY MRN: [id number] date: 1965 Sex: F Assigned Patient Location: ER Current Patient Location: ER Accession/Order Number: [id number] Exam Date: 10/14/2024 09:37 Report Date: 10/14/2024 09:57 At the request of: MARYBETH RUIZ MD Procedure: XR foot LT min 3V LEFT FOOT - 3 views CLINICAL DATA: Medial left foot pain this morning. No injury. COMPARISON: None AP, lateral and oblique views were obtained. A marker was placed at the site of clinical concern. The navicular - medial cuneiform joint space is not well seen on the AP view raising question of possible coalition. There is also dorsal medial irregular lucency in this area which is at the site of the patient's symptoms. The findings might be degenerative. Nondisplaced fracture or infection are thought unlikely given the history, however correlation is still suggested given the presence of overlying soft tissue swelling. There is no additional fracture or dislocation. 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 CLINICAL CORRELATION IS SUGGESTED ALONG WITH FOLLOW-UP, WARRANTED. NO OTHER ACUTE FINDINGS. Impression dictated by: Althea Tobar M.D. 10/14/2024 9:57 AM Dictation Location: [place] [address] Electronically authenticated by: [id number] Date: 10/14/2024 09:57
--- NOTE | 2024-10-14 12:56 | ED.GENADUL1 ---
HPI HPI - General Adult General Chief complaint: Extremity Injury, Lower Stated complaint: L FOOT PAIN Time Seen by Provider: 10/14/24 12:25 Source: patient Mode of arrival: Wheelchair History of Present Illness HPI narrative: Patient is a 59-year-old female who is presenting with pain to the left medial aspect of her left foot. Patient has no history of gout. She had no history of injury yesterday. Patient has some mild redness to the left medial aspect of the foot, at the medial aspect of the head of the first metatarsal. Patient has no pain to the dorsal or plantar aspect of the foot. No pain to the toes. No pain to Achilles, knee. No other acute complaints. Patient has had no injury. Patient says that she started having the pain around 3 AM this morning. Patient started taking medication earlier this morning to help with the pain. Patient has been using ice at home. Patient came in for evaluation. Patient is never seen yield analyst before. All systems are negative except as noted/marked. All systems reviewed and otherwise negative. Nurses note and vital signs reviewed and patient is not hypoxic. General: The patient appears well and in no apparent distress. Patient is resting comfortably on cart. Patient is not toxic, lethargic, or listless Skin: Warm, dry, no pallor noted. There is no rash noted. No petechiae, purpura. Patient has very faint redness to the medial aspect of the left foot, just medial to the base of the first metatarsal. Head: Normocephalic, atraumatic Eye: Normal conjunctiva, no drainage, EOMI. PERRL Ears, Nose, Mouth, and Throat: oral mucosa is moist. Nares patent. Mouth without vesicles. Cardiovascular: Regular Rate and Rhythm, no murmur, gallop, rub Respiratory: Patient is in no distress, no accessory muscle use, lungs are clear to auscultation, no wheezing, rales or rhonchi Back: non-tender, GI: no tenderness to Musculoskeletal: Patient has full range of motion of all of the extremities except to the left foot. Patient has moderate tenderness to palpation to minimal redness area at the medial aspect of the base of the first metatarsal. No obvious deformity. No motor, sensory, or focal neurological deficits. Neurological: A&O x4, normal speech Psychiatric: Cooperative Related Data Home Medications ?Medication ?Instructions ?Recorded ?Confirmed buspirone 5 mg tablet 5 mg PO DAILY PRN anxiety 03/03/23 10/14/24 levothyroxine 75 mcg tablet 75 mcg PO DAILY 03/20/23 10/14/24 (Euthyrox) lithium carbonate 450 mg 450 mg PO .every evening 03/20/23 10/14/24 tablet,extended release omeprazole 40 mg capsule,delayed 40 mg PO DAILY 03/20/23 10/14/24 release quetiapine 200 mg tablet 200 mg PO DAILY 03/20/23 10/14/24 rosuvastatin 20 mg tablet 20 mg PO .every evening 03/20/23 10/14/24 letrozole 2.5 mg tablet mg 10/14/24 Allergies Allergy/AdvReac Type Severity Reaction Status Date / Time Penicillins Allergy altered Verified 10/14/24 08:57 mental status [facility] Medical History (Updated 10/14/24 @ 12:55 by Sandro Krueger MD) Bipolar 1 disorder ?F31.9 - Bipolar disorder, unspecified (ICD-10) Hypothyroidism ?E03.9 - Hypothyroidism, unspecified (ICD-10) High cholesterol ?E78.00 - Pure hypercholesterolemia, unspecified (ICD-10) Surgical History (Updated 03/20/23 @ 14:14 by Lia Powers) History of needle biopsy ?Z98.890 - Other specified postprocedural states (ICD-10) History of cataract removal with insertion of prosthetic lens ?Z98.49 - Cataract extraction status, unspecified eye (ICD-10) ?Z96.1 - Presence of intraocular lens (ICD-10) History of tubal ligation ?Z98.51 - Tubal ligation status (ICD-10) Social History Little interest or pleasure in doing things: not at all Feeling down, depressed, or hopeless: not at all Exam Constitutional Vital Signs, click to edit/add: Last Vital Signs Temp 98.4 F 10/14/24 08:58 Pulse 81 10/14/24 08:58 Resp 16 10/14/24 08:58 BP 159/76 H 10/14/24 08:58 Pulse Ox 98 10/14/24 08:58 O2 Del Method Room Air 10/14/24 08:58 Course Vital Signs Vital signs: Vital Signs Temperature 98.4 F 10/14/24 08:58 Pulse Rate 81 10/14/24 08:58 Respiratory Rate 16 10/14/24 08:58 Blood Pressure 159/76 H 10/14/24 08:58 Pulse Oximetry 98 10/14/24 08:58 Oxygen Delivery Method Room Air 10/14/24 08:58 Temperature 98.4 F 10/14/24 08:58 Pulse Rate 81 10/14/24 08:58 Respiratory Rate 16 10/14/24 08:58 Blood Pressure 159/76 H 10/14/24 08:58 Pulse Oximetry 98 10/14/24 08:58 Oxygen Delivery Method Room Air 10/14/24 08:58 Medical Decision Making MDM Narrative Medical decision making narrative: Patient seen and examined: Patient have x-ray and ice applied. Differential diagnosis includes but is not limited to: Gout arthritis, left foot sprain, left ankle sprain, abscess, foreign body Radiological studies: Please see the formal radiological report. Reevaluation: Multiple blame less apologies were given to the patient secondary wait. Shared decision making: I discussed with the patient the necessary radiological findings. Social barriers to healthcare: There are no food insecurities, there is no issue with transportation, there are no insurance barriers. Disposition: I discussed with the patient x-ray finding. I did give a copy of the x-ray report to the patient. We discussed the findings and physical exam. Patient was placed in Sky wrap and postop shoe. Patient will follow-up with Dr. Granger. Patient did have ice applied. Possible etiologies were discussed. Patient understands this, no questions at discharge. Procedure note: Patient had Sky wrap and a postop shoe placed to the left foot. Splint was assisted with . the patient was neurovascularly intact before and after the splint was placed. the affected bones/injured area had proper alignment in a splint. Education on splint care at home was given at bedside. Patient and family have no questions at discharge. Discharge Plan Discharge Chief Complaint: Extremity Injury, Lower Clinical Impression: Acute pain of left foot Patient Disposition: Home, Self-Care Time of Disposition Decision: 12:55 Condition: Fair Prescriptions / Home Meds: No Action letrozole 2.5 mg tablet buspirone 5 mg tablet 5 mg PO DAILY PRN (Reason: anxiety) omeprazole 40 mg capsule,delayed release(DR/EC) 40 mg PO DAILY rosuvastatin 20 mg tablet 20 mg PO .every evening lithium carbonate 450 mg tablet extended release 450 mg PO .every evening levothyroxine [Euthyrox] 75 mcg tablet 75 mcg PO DAILY quetiapine 200 mg tablet 200 mg PO DAILY Print Language: Ukrainian Instructions: Foot Sprain (ED), Arthralgia (ED) Additional Instructions: Wear your Sky wrap at all times besides ice and shower for the next 5 to 7 days. Wear postop shoe at all times when you are ambulating only. Alternate Tylenol and either Motrin, Advil, or ibuprofen every 4 hours to help with pain. Maximum dose of Tylenol is 3000 mg a day. Maximum dose of either Motrin, Advil, or ibuprofen is 2400 mg a day. Follow-up with yield analyst for further recommendations. Referrals: Alexia Raya MD [Primary Care Provider, Family Practice] - 1 week Juliano Granger DPM [Physician, Podiatry] - 1 week
[2024-10-14 13:25] VITALS: PULSE 70; O2SAT 96
== END 2024-10-14 13:28 | disposition home or self-care (01) ==
PROVIDERS: Emergency Provider Emergency Medicine; PCP Family Medicine
DX: M79.672 Pain in left foot (principal); Z98.51 Tubal ligation status
CPT/HCPCS: 73630; 99283

== ENCOUNTER 2025-02-03 10:51 | Outpatient (OUT) | payer MEDICARE, MEDICAID, SELFPAY ==
--- OUTSIDE RECORDS SUMMARY | 2024-10-15 10:00 | XMS_ITS ---
Author Name Auto Generated Organization OHIP Care Team Providers Care Fundraising Consultant Name Role Phone Gavin Plaza Attending Unavailab Gavin Leyva Admitting Unavailab Rafael Ibarra Referring Unavailable Christine Velazquez Attending Unavailvelia e Christine Velazquez Admitting Unavailabl e Alexia Raya Primary Care Unavailable JORDYN PORTILLO Attending Unavailable JORDYN PORTILLO Attending Unavailable JORDYN PORTILLO Attending Unavailable CHRISTY QUICK Attending Unavailable BEHZAD HUNTER Attending Unavailable PROBLEMS DATE TYPE CONDITION / CODE ATTENDING STATUS BHUPINDER RCE 08/14/2024 Unknown Malignant neopla sm of central portion of left female breast / C50.112(ICD-10) Christine Velazquez Active [facility] PROCEDURES No Procedure Records Found RESULTS No Result Records Found ALLERGIES DATE TYPE / CODE NAME / CODE REACTION SEVERITY SOURCE 08/14/2024 Drug Allergy/76507 8002(SNOMED CT) Penicillins/ [id number](R XNORM) Swelling of Lip/Tongue/Throa t Severe (Severity Modifier) (Qualifier Value) [facility] 08/14/2024 Drug Allergy/81625 8002(SNOMED CT) Cephalospori ns/[id number] 7(RXNORM) Unknown Reaction Unknown [facility] ENCOUNTERS ADMIT/DISCHARGE ACCOUNT NUMBER ADMITTING ENCOUNTER CLASS LOCATION SOURCE 10/15/2024 [id number] Gavin Plaza [facility] E [facility] 10/03/2024/10/04/19 25 [id number] Ambulatory Building:NOM S CI POD [facility] 09/05/2024/09/06/19 25 [id number] Ambulatory Building:NOM S CI POD [facility] 08/14/2024 [id number] Christine Velazquez [facility] 04/10/2024/04/10/20 24 [id number] Ambulatory Building:NOM S CI AUD [facility] 04/10/2024/04/10/20 24 [id number] Ambulatory Building:CIE NT [facility] 03/07/2024/03/07/20 24 [id number] Ambulatory Building:NOM S CI POD [facility] PAYERS ENCOUNTER GUARANTOR PAYER SUBSCRIBER SOURCE 10/15/[address] [place] [address]Rld: (HP) Primary Insurance:Self PayPolicy Number: Effective Date:2022-09-05 [facility] MELONY ZULETA: [place] [address]Abr: (HP) [place]: [id number] Date:2017-05-08 MELONY ZULETA: [id number] [place] [address] [facility] 10/03/2024 Secondary Insurance:[facility] MEDICARE ADVANTAGEPolicy Number: [id number] Date:2024-05-08 MELONY MANLEYB: [id number] [place] [address] [facility] 09/05/2024 MELONY MANLEYB: [place] [address]Oki: (HP) [place]: [id number] Date:2017-05-08 MELONY MANLEYB: [id number] [place] [address] [facility] 09/05/2024 Secondary Insurance:[employer] MEDICARE ADVANTAGEPolicy Number: [id number] Date:2024-05-08 MELONY MANLEYMARTY: [id number] [place] [address] [facility] 08/14/20[address] [place] [address]Sxa: (HP) Primary Insurance:[place] Medi[employer] Dual AdvPolicy Number: [id number] Date:[id number] [address]WE: Melony Kye: [id number] [place] [address]Mmo: (HP) [facility] 08/14/2024 Secondary Insurance:MedicaidPol icy Number: [id number] Date:2023-09-11 Melony Kye: [id number] [place] [address]Jlz: (HP) [facility] 08/14/2024 Tertiary Insurance:Self PayPolicy Number: Effective Date:2023-11-02 [facility] 04/10/2024 MELONY ZULETA: [place] [address]Xqe: (HP) Primary Insurance:[employer] MEDICARE ADVANTAGEPolicy Number: [id number] Date:2019-05-08 MELONY BANDARB: [id number] [place] [address] [facility] 04/10/2024 [place] Insurance[place]: [id number] Date:2017-05-08 MELONY KYE: [id number] [place] [address] [facility] 04/10/2024 MELONY KYE: [place] [address]Ush: (HP) Primary Insurance:[employer] MEDICARE ADVANTAGEPolicy Number: [id number] Date:2019-05-08 MELONY KYE: [id number] [place] [address] [facility] 04/10/2024 [place] Insurance[place]: [id number] Date:2017-05-08 MELONY KYE: [id number] [place] [address] [facility] 03/07/2024 MELONY KYE: [place] [address]Aow: (HP) Primary Insurance:[employer] MEDICARE ADVANTAGEPolicy Number: [id number] Date:2019-05-08 MELONY KYE: [id number] [place] [address] [facility] 03/07/2024 Secondary Insurance[place]: [id number] Date:2017-05-08 MELONY ZULETA: [id number] [place] [address] [facility] EP[facility]
--- OUTSIDE RECORDS SUMMARY | 2025-02-03 06:38 | XMS_ITS | Continuity of Care Document ---
Author Organization [facility] Address [address] [place] [address] Phone Care Team Providers Care Supervisor Contact And Service Clerks Name Role Phone Alexia Raya MD Primary Care Provider Alexia Raya MD Attending Provider [phone] Care Teams Patient Care Team Team Status: Active Member Role Status Dates Alexia Raya MD Primary Care Provider Active Patient Care Team Team Status: Inactive Member Role Status Dates Alexia Raya MD Primary Care Provider Active Start: February 03, 2025 End: February 03, 2025 Alexia Raya MD Attending Provider Active St art: February 03, 2025 End: February 03, 2025 Chief Complaint and Reason for Visit Chief Complaint Admit Date Recheck Kidneys/Check Up February 03, 2025 9:49am Reason for Visit Admit Date Chronic kidney disease, stage 3 unspecif ied February 03, 2025 9:49am Hyperlipidemia February 03, 2025 9:49am Hypothyroidism February 03, 2025 9:49am Type 2 diabetes mellitus with hyperglyce mustapha February 03, 2025 9:49am Allergies, Adverse Reactions, Alerts Allergen Type Severity Reaction Last Updated Verified Status Penicillins Allergy Severe Swelling of Lip/Tongue/Throat February 03, 2025 10:03am Yes Active Cephalosporins Allergy Unknown Unknown Reaction Sept ember 2024 10:03am Yes Active Social History Smoking Status Status Start Date End Date Date of Observa tion Ex-smoker (finding) March 16, 2024 9:19am Observation Status Observation Response Date of Response Legal Sex Female (finding) Sex Assigned At Female 1965 Family History Relationship Condition Age at Onset Recorded Date/T everardo mother Malignant neoplasm of stomach Unknown Unknown Malignant neoplasm Unknown father Heart disease Unknown Unknown Hypertension Unknown Problems Active Problems Medical Problem Onset Date Status Comments Right acute otitis media Unknown Active Elevated fasting glucose Unknown Active Hematoma of breast following procedure Unknown Ac tive Screening for colon cancer Unknown Active Type 2 diabetes mellitus with hyperglycemia Unknown Active Sinusitis, acute maxillary Unknown Active Bacterial conjunctivitis of right eye Unknown Act manish Breast pain, left Unknown Active URI (upper respiratory infection) Unknown Active Chronic kidney disease, stage 3 unspecified Unknown Active Wellness examination Unknown Active Hyperlipidemia Unknown Active Hypothyroidism Unknown Active Right arm pain Unknown Active Osteopenia Unknown Active Breast cancer Unknown Active left Invasive ductal carcinoma of left breast Unknown Active GERD (gastroesophageal reflux disease) Unknown Ac tive Allergic rhinitis Unknown Active Medications Medication Status Dose Units Route Directions Qty Days St art Date Stop Date End Date Instructions Adherence Levothyroxi ne 75 mcg tablet Discont inued 0 .ROUTE .COMPLEX August 08, 2023 8:47am October 31, 2023 8:37a m TAKE 1 TABLET BY MOUTH EVERY DAY IN THE MORNING ON EMPTY STOMACH FOR 90 DAYS Glipizide 5 mg tablet extended release 24hr Discont inued 5 MG PO Daily October 25, 2023 9:49pm Septe mber 2023 1:14p m Rosuvastati n 20 mg tablet Discont inued 0 .ROUTE .COMPLEX October 31, 2023 8:37am Octob er 2023 8:28a m TAKE 1 TABLET BY MOUTH EVERY EVENING Omeprazole 40 mg capsule,del ayed release(DR/ EC) Discont inued 0 .ROUTE .COMPLEX October 31, 2023 8:37am Octob er 2023 8:28a m TAKE 1 CAPSULE BY MOUTH EVERY MORNING Levothyroxi ne 75 mcg tablet Discont inued 0 .ROUTE .COMPLEX October 31, 2023 8:37am Octob er 2023 10:36 pm TAKE 1 TABLET BY MOUTH EVERY DAY IN THE MORNING ON EMPTY STOMACH FOR 90 DAYS Mometasone 0.1 % cream Discont inued 1 APPLIC TOPICA L Daily November 03, 2023 12:00a m Augus t 2023 9:58a m Apply to radiation site, once a day, AFTER radiation treatments. Glipizide 5 mg tablet extended release 24hr Discont inued 0 .ROUTE .COMPLEX 30 2023 1:14pm Octob er 2023 11:11 am TAKE 1 TABLET BY MOUTH EVERY DAY Rosuvastati n 20 mg tablet Discont inued 0 .ROUTE .COMPLEX [facility] 2023 8:28am Sept[facility] 2024 8:25a m TAKE 1 TABLET BY MOUTH EVERY EVENING Omeprazole 40 mg capsule,del ayed release(DR/ EC) Active 0 .ROUTE .COMPLEX 90 [facility] 2023 8:28am TAKE 1 CAPSULE BY MOUTH EVERY MORNING Complies with drug therapy Levothyroxi ne 75 mcg tablet Discont inued 0 .ROUTE .COMPLEX 90 [facility] 2023 10:36p m July 24, 2024 8:30a m TAKE 1 TABLET BY MOUTH EVERY DAY IN THE MORNING ON EMPTY STOMACH FOR 90 DAYS Letrozole 2.5 mg tablet Active 2.[facility] Complies with drug therapy Gabapentin (Neurontin) 300 mg capsule Discont inued 300 MG PO Daily at bedtime [facility] 2023 12:00a m [facility] 2023 10:17 am Azelastine (Astepro Allergy) 205.5 mcg (0.15 %) spray,non-a erosol Active 2 SPRAY INTRAN MARYURI Daily Decemb er 2023 12:38p m administer into each nostril Complies with drug therapy Doxycycline Monohydrate 100 mg tablet Active 100 MG PO Twice daily 14 July 22, 2024 12:00a m Complies with drug therapy Levothyroxi ne 50 mcg tablet Discont inued 0 .ROUTE .COMPLEX July 24, 2024 8:29am Janbanner 2024 8:44a m TAKE 1 TABLET BY MOUTH EVERY DAY IN THE MORNING ON EMPTY STOMACH FOR 90 DAYS Gabapentin 300 mg capsule Discont inued 0 .ROUTE .COMPLEX 60 September 20, 2024 3:52pm [facility] 2024 9:04a m TAKE 1 CAPSULE BY MOUTH AT BEDTIME Levothyroxi ne 50 mcg tablet Active 0 .ROUTE .COMPLEX 90 2024 8:44am TAKE 1 TABLET BY MOUTH EVERY DAY IN THE MORNING ON EMPTY STOMACH FOR 90 DAYS Complies with drug therapy Gabapentin 300 mg capsule Active 0 .ROUTE .COMPLEX 60 2024 9:04am TAKE 1 CAPSULE BY MOUTH AT BEDTIME Complies with drug therapy Rosuvastati n 20 mg tablet Active 0 .ROUTE .COMPLEX 90 2024 8:25am TAKE 1 TABLET BY MOUTH EVERY EVENING Complies with drug therapy Acetaminoph en-Codeine 300-30 mg tablet Discont inued 1 TAB PO Every 6 hours as needed for pain 24 09August 01, 2023 12:00a m August 11, 2023 10:44 am Trazodone 50 mg tablet Discont inued 25 MG PO Bedtime November 20, 2023 12:00a m [facility] 2023 10:16 am Buspirone 5 mg tablet Active 5 MG PO Twice daily November 20, 2023 12:00a m Complies with drug therapy Alendronate 70 mg tablet Discont inued 70 MG PO every week [facility] er 2022 1:00am August 11, 2023 10:45 am monday Quetiapine 200 mg tablet Active 200 MG PO Every evening [facility] er 2022 1:00am Complies with drug therapy Olanzapine 10 mg tablet Discont inued 10 MG PO Every evening Dece er 2022 1:00am July 11, 2023 3:36p m Omeprazole 40 mg capsule,del ayed release(DR/ EC) Discont inued 40 MG PO Every morning Dece er 2022 1:00am August 11, 2023 10:51 am Deering Carbonate 450 mg tablet extended release Active 450 MG PO Every evening Dece er 2022 1:00am Complies with drug therapy Levothyroxi ne 75 mcg tablet Discont inued 75 MCG PO Every morning Dece er 2022 1:00am August 08, 2023 8:47a m Rosuvastati n 20 mg tablet Discont inued 20 MG PO Every evening Dece er 2022 1:00am August 11, 2023 10:51 am Ascorbic Acid (Vitamin C) (Vitamin C) 500 mg Tablet Active 500 MG PO Every morning Dece er 2022 1:00am Complies with drug therapy Ibuprofen 600 mg tablet Discont inued 600 MG PO EVERY 4-6 HOURS as needed for pain 20 5 August 29, 2023 12:00a m November 20, 2023 8:07a m do not exceed 4 doses in a 24 hour period Buspirone 5 mg tablet Discont inued 5 MG PO Daily July 10, 2023 1:00am July 11, 2023 3:36p m Trazodone 50 mg tablet Discont inued 50 MG PO Daily July 10, 2023 1:00am July 11, 2023 3:36p m Omeprazole 40 mg capsule,del ayed release(DR/ EC) Discont inued 40 MG PO Every morning August 11, 2023 10:51a m October 31, 2023 8:37a m Rosuvastati n 20 mg tablet Discont inued 20 MG PO Every evening August 11, 2023 10:51a m October 31, 2023 8:37a m Cholecalcif mikala (Vitamin D3) 25 mcg (1,000 unit) capsule Discont inued 25 MCG PO Daily Octobe r 2023 12:00a m Novem aubrey 2023 10:18 am Calcium Carbonate (Calcium 500) 500 mg calcium (1,250 mg) tablet,chew able Active 500 MG PO Daily Octobe r 2023 12:00a m Complies with drug therapy Letrozole 2.5 mg tablet Discont inued 2.5 MG PO Daily Octobe r 2023 12:00a m Octob er 2023 2:59p m Cholecalcif mikala (Vitamin D3) 25 mcg (1,000 unit) capsule Active 50 MCG PO Daily Novemb er 2023 10:17a m Complies with drug therapy Gabapentin 300 mg capsule Discont inued 300 MG PO Daily at bedtime 60 2024 1:00am September 20, 2024 3:52p m Doxycycline Monohydrate 100 mg capsule Discont inued 100 MG PO Twice daily 14 7 b er 2023 1:00am 2024 12:20 pm Sulfamethox azole-Trime thoprim 800-160 mg tablet Discont inued 1 TAB PO Twice daily 14 2024 1:00am August 14, 2024 11:30 am Alendronate 70 mg tablet Active 70 MG PO every week September 21, 2023 12:00a m Complies with drug therapy Letrozole (Femara) 2.5 mg tablet Discont inued 2.5 MG PO Daily October 11, 2023 12:00a m Augus 2023 10:24 am Glipizide 5 mg tablet extended release 24hr Discont inued 5 MG PO Daily October 03, 2023 12:00a m October 25, 2023 9:49p m Tamoxifen 20 mg tablet Discont inued 20 MG PO Daily December 21, 2023 12:00a m Augus 2023 1:59p m Venlafaxine (Effexor Xr) 37.5 mg capsule,ext ended release 24hr Discont inued 37.5 MG PO Daily December 21, 2023 12:00a m Augus t 2023 1:59p m Azelastine (Astepro Allergy) 205.5 mcg (0.15 %) spray,non-a erosol Discont inued 2 SPRAY INTRAN MARYURI Daily er 2023 1:00am Decem aubrey 2023 12:38 pm administer into each nostril Ciprofloxac in Hcl 0.3 % drops Active 0 OPHTHA LMIC .COMPLEX 5 2024 1:00am put 1-2 drps in affected eye(s) every 2hr up to 8 times/day x2days; then 4 times/day x5days Eye-Both Complies with drug therapy Immunizations Immunization Event Date Not Given Reason Dose Number Recruiting Internship Lot Number Vaccine Information Statement (VIS) Detail Administration Location COVID-19 mRNA, Comirnaty (Pfizer) August 07, 2020 COVID-19 mRNA, Comirnaty (Pfizer) August 27, 2020 COVID-19 mRNA, Comirnaty (Pfizer) April 20, 2021 COVID-19 mRNA Bivalent Booster ([employer]) February 28, 2022 Medical Equipment Device Date Implanted Device Details Imaging lesion localization marker, implantable August 01, 2023 MARLENY: [id number] Issuing Agency: [employer] Device Id: [id number] Expiration Date: 2025-05-20 Lot Number: [id number] Vital Signs Vital Reading Result Reference Range Collection Date/Time Height 64 [in_i] February 03, 2025 10:00am Weight 69.39 kg February 03, 2025 10:00am Heart Rate 74 /min 60-100 February 03, 2025 10:00am BP Systolic 126 mm[Hg] 100-140 February 03, 2025 10:00am BP Diastolic 75 mm[Hg] 60-100 February 03, 2025 10:00am BMI (Body Mass Index) 26.2 kg/m2 2024 10:00am Advance Directives Advance Directive Response Recorded Date/ Time Advance Directives No March 16, 2024 10:07am Insurance Providers Guarantor Melony Laws Address [address] [place] [id number] Contact Info. Home Phone: Payer Policy Id Subscriber's Name Subscriber Id Effectiv e Date Expiration Date Medicaid [id number] Melony Laws [id number] Medicare [id number] Melony Laws [id number] Encounters Encounter Location(s) Arrival/Admit Date Discharge/Depart Date Provider(s) Departed Physician/Prov ider Office Visit -[facility] February 03, 2025 9:49am February 03, 2025 10:38am Alexia Raya MD Recent Diagnosis Onset Date Admit Date Chronic kidney disease, stage 3 unspecified Unkn own February 03, 2025 9:49am Hyperlipidemia Unknown February 03, 2025 9:49am Hypothyroidism Unknown February 03, 2025 9:49am Type 2 diabetes mellitus with hyperglycemia Unkn own February 03, 2025 9:49am Assessments Diagnosis Onset Date Resolution Status Admit Date Chronic kidney disease, stag e 3 unspecified acute February 03, 2025 9:49am Hyperlipidemia acute February 03, 2025 9:49am Hypothyroidism acute February 03, 2025 9:49am Type 2 diabetes mellitus wit h hyperglycemia acute February 03, 2025 9:49am Plan of Treatment Future Tests Future scheduled test information is unavailable Pending Tests Test Name Ordered Date Scheduled Date Comprehensive Metabolic Panel February 03 10:27am Future Visits Future appointment information is unavailable Referrals to Other Providers Referral information is unavailable Future Procedures Procedure Name Ordered Date Scheduled Date A1C with Estimated Average Glu February 03, 025 10:27am Lipid Panel February 03, 2025 10:27am MicroAlb Creat Ratio,U February 03, 2025 10:2 7am Free T4 (Free Thyroxine) February 03, 2025 10 :27am Thyroid Stim Hormone w/Rflx February 03, 2025 10:27am Future Medications Future medication information is unavailable Patient Instructions Patient instructions are unavailable
--- OUTSIDE RECORDS SUMMARY | 2025-02-03 10:54 | XMS_ITS | Clinical Summary ---
Author Organization [facility] Address [address], [address] [place] [address] Care Team Providers Care Tack Driller Name Role Phone Alexia Raya MD Primary Care Provider [phone] Social History Tobacco Use Types Packs/Day Years Used Date Smoking Tobacco: Never Assessed Comments Unknown Sex and Gender Information Value Date Recorded Sex Assigned at Not on file Legal Sex Female 7:41 PM EST Gender Identity Not on file Sexual Orientation Not on file Plan of Treatment Health Maintenance Due Date Last Done Comments Depression Screen 1976 HIV screen 01/31/1979 Hepatitis C screen 01/31/1982 DTaP/Tdap/Td vaccine (1 - Tdap) 01/31/1983 Pap smear 01/31/1985 Cervical cancer screen 01/31/1994 HPV (without or with Pap) 01/31/1994 Colonoscopy 01/31/2009 Colorectal Cancer Screen 01/31/2009 FIT/FOBT: Average risk 01/31/2009 Fecal-DNA (Cologuard): Average risk 01/31/2009 Sigmoidoscopy/CT colonography 01/31/2009 Pneumococcal 50+ years Vaccine (2 of 2 - PCV) 01/31/2014 02/26/1997 Shingles vaccine (1 of 2) 01/31/2014 Lipids 08/03/2015 08/02/2010, 02/03/2010 Annual Wellness Visit (Medicare Advantage) 05/08/2024 Flu vaccine (#1) 12/06/2024 02/28/2022, , 02/22/2016 COVID-19 Vaccine ( season) 2025 02/28/2022, 04/20/2021, 08/27/2020, Additional history exists Breast cancer screen 07/31/2025 08/01/2023, 08/26/2022, 08/01/2022 Respiratory Syncytial Virus (RSV) or age 60 yrs+ (1 - 1-dose 75+ series) 01/31/2039 Pneumococcal 0-49 years Vaccine Discontinued 02/26/1997 Hepatitis A vaccine Aged Out No longe r eligible based on patient's age to complete this topic Hepatitis B vaccine Aged Out No longe r eligible based on patient's age to complete this topic Hib vaccine Aged Out No longer eligi ble based on patient's age to complete this topic Meningococcal (ACWY) vaccine Aged Out No longer eligible based on patient's age to complete this topic Meningococcal B vaccine Aged Out No l onger eligible based on patient's age to complete this topic Polio vaccine Aged Out No longer elig ible based on patient's age to complete this topic Procedures Procedure Name Priority Date/Time Associated Diagnosis Comments LIPID PANEL STAT 08/02/2010 9:30 AM EDT from Last 3 Months or Most Recently Relevant to Health Maintenance Results * (ABNORMAL) LIPID PANEL (08/02/2010 9:30 AM EDT) Triglycerides 442(H) <150 MG/DL [facility] Cholesterol 228(H) <200 MG/DL [facility] HDL 51(L) >60 MG/DL [facility] LDL Calculated 89 <100 MG/DL [facility] 08/02/2010 9:30 AM EDT 08/02/2010 10:02 AM EDT Narrative [facility] - 08/02/2010 1:13 PM EDT CALCULATED LDL IS ESTIMATED, NOT A TRUE MEASUREMENT, AND MAY NOT REFLECT ACTUAL LDL LEVEL. CONSIDER ORDERING A DIRECT LDL OR LIPID PANEL WITH LDL. Performed @ [facility], [address] [place] [address] us Luz Griffin MD CHEMISTRY ORDERABLES Final Res ult [facility] from Last 3 Months or Most Recently Relevant to Health Maintenance Insurance [facility] MEDICARE MEDICAID [place] Care Teams Tack Driller Relationship Specialty Start Date End Date Alexia Raya MD [address] [facility] [place] [phone] PCP - General Family Medicine 05/25/23
--- OUTSIDE RECORDS SUMMARY | 2025-02-03 10:54 | XMS_ITS | Encounter Summary ---
Author Organization [facility] Address [address] [place] [address] Care Team Providers Care Pantry Worker Name Role Phone Alexia Raya MD Primary Care Provider [phone] Alexia Raya MD Primary Care Provider [phone] Encounter Details Date Type Department Care Team (Late st Contact Info) Description 05/02/2023 External Result Encounter [facility] External Department Unsolicited Rafael Velazquez H, DO [address] [address] Social History Tobacco Use Types Packs/Day Years Used Date Smoking Tobacco: Former Cigarettes Q uit: 2017 Alcohol Use Standard Drinks/Week Comments Not Currently 0 (1 standard drink = 0.6 oz pur e alcohol) Comments Unknown Sex and Gender Information Value Date Recorded Sex Assigned at Not on file Legal Sex Female 7:40 PM EDT Gender Identity Not on file Sexual Orientation Not on file documented as of this encounter Plan of Treatment Not on file documented as of this encounter Procedures Procedure Name Priority Date/Time Associated Diagnosis Comments ECG 12-LEAD 05/02/2023 3:56 PM EST documented in this encounter Results * ECG 12 lead (05/02/2023 3:56 PM EST) 05/02/2023 3:56 PM EST [facility] - 05/03/2023 10:43 AM EST [facility] Main [address] [address] Electrocardiograph Report Signed Patient: Melony Laws MR#: [id number] : 1965 Acct:[id number] Age/Sex: 58 / F ADM Date: 05/02/23 Loc: PS Room: Type: DEP CLI Attending Dr: Rafael Velazquez DO Ordering Provider: Rafael Velazquez DO Date of Service: 05/02/23 ECG/ECG 12 [...] No previous ECGs available Confirmed by MARYBETH IYER DO ([id number]) on 05/03/2023 9:46:45 AM Referred By: RAQUEL Electronically Signed By:MARYBETH IYER DO Transcribed By: MUS Signed By Marybeth Iyer DO 05/03 0946 Procedure Note Marybeth Iyer DO - 05/03/2023 [facility] Main [place] [address] [place] [address] Electrocardiograph Report Signed Patient: Melony LawsMR#: [id number] : 1965Acct:[id number] Age/Sex: 58 / FADM Date: 05/02/23 Loc: PS Room:Type: DEP CLI Attending Dr: Rafael Velazquez DO Ordering Provider: Rafael Velazquez DO Date of Service: 05/02/23 ECG/ECG 12 [...] No previous ECGs available Confirmed by MARYBETH IYER DO ([id number]) on 05/03/2023 9:46:45 AM Referred By: RAQUEL Electronically Signed By:MARYBETH MANUEL Transcribed By: MUS Signed By Marybeth Iyer,DO05/03 0946 us Rafael Velazquez DO ECG ORDERABLES Final Res ult [address] [place] [address], documented in this encounter Visit Diagnoses Not on filedocumented in this encounter Care Teams Pantry Worker Relationship Specialty Start Date End Date Alexia Raya MD PCP - General Family Medicine 03/15/23 09/04/24 Alexia Raya MD [address] [place] [phone] PCP - General Family Medicine 09/05/24 documented as of this encounter
--- OUTSIDE RECORDS SUMMARY | 2025-02-03 10:56 | XMS_ITS | Encounter Summary ---
Author Organization [facility] Address [address], [address] [place] [address] Care Team Providers Care Chyron Operator Name Role Phone Alexia Raya MD Primary Care Provider [phone] Reason for Referral * Imaging (Routine) - Closed Specialty Diagnoses / Procedures Referred By Contsergio t Referred To Contact Radiology Diagnoses Malignant neoplasm of central portion of left breast in female, estrogen receptor positive (HCC) Other abnormal and inconclusive findings on diagnostic imaging of breast Procedures MRI BREAST BILATERAL W WO CONTRAST Edwardo Velazquez DO [address] [address] Phone: tel: fax: Referral ID Status Reason Start Date Expiration Date Visits Re quested Visits Authorized [id number] Closed 06/29/2023 07/29/2023 1 1 Encounter Details Date Type Department Care Team (Latest Contact Info) Description 05/23/2023 Transcribe Orders [facility] Pre [address] [place] [address] Edwardo Velazquez DO [address] [address] Malignant neoplasm of central portion of left breast in female, estrogen receptor positive (HCC) (Primary Dx); Other abnormal and inconclusive findings on diagnostic imaging of breast Social History Tobacco Use Types Packs/Day Years Used Date Smoking Tobacco: Never Assessed Comments Unknown Sex and Gender Information Value Date Recorded Sex Assigned at Not on file Legal Sex Female 7:41 PM EST Gender Identity Not on file Sexual Orientation Not on file documented as of this encounter Plan of Treatment Not on file documented as of this encounter Results * (ABNORMAL) MRI BREAST BILATERAL W WO CONTRAST (06/29/2023 11:06 AM EST) Anatomical Region Laterality Modality Breast Bilateral Magnetic Resonan ce 06/29/2023 3:18 PM EST Impressions 06/30/2023 3:14 PM EST 1. 0.7 cm mass in the 6 [...] OVERALL ASSESSMENT - KNOWN BIOPSY PROVEN MALIGNANCY. Narrative 06/30/2023 3:14 PM EST EXAMINATION: MRI OF THE BILATERAL BREASTS WITHOUT [...] in the visualized chest or upper abdomen. Edwardo Velazquez DO [facility] MRI ORDERABLES Final R esult documented in this encounter Visit Diagnoses Diagnosis Malignant neoplasm of central portion of left breast in female, estrogen receptor positive (HCC)- Primary Other abnormal and inconclusive findings on diagnostic imaging of breast Malignant neoplasm of central portion of left breast in female, estrogen receptor positive (HCC) Other abnormal and inconclusive findings on diagnostic imaging of breast documented in this encounter Care Teams Chyron Operator Relationship Specialty Start Date End Date Alexia Raya MD [address] [place] [phone] PCP - General Family Medicine 05/25/23 documented as of this encounter
--- OUTSIDE RECORDS SUMMARY | 2025-02-03 10:56 | XMS_ITS | Encounter Summary ---
Author Organization [facility] Address [address] [facility] [place] [address] Care Team Providers Care Box Loader Name Role Phone Alexia Raya MD Primary Care Provider [phone] Alexia Raya MD Primary Care Provider [phone] Encounter Details Date Type Department Care Team (Late st Contact Info) Description 07/12/2023 External Result Encounter [facility] External Department Unsolicited Rafael Velazquez H, DO [address] [facility] [address] [place] [address] Social History Tobacco Use Types Packs/Day Years [...] Procedure Name Priority Date/Time Associated Diagnosis Comments BI US BREAST LIMITED LEFT 07/12/2023 2:18 PM EST documented in this encounter Results * Left breast US limited (07/12/2023 2:18 PM EST) Anatomical Region Laterality Modality Breast Left Ultrasound 07/12/2023 2:18 PM EST Impressions 07/12/2023 2:32 PM EST NO CONVINCING ULTRASOUND FINDINGS AT THE SITE OF MRI CONCERN AND THE BIOPSY FROM LAST MARCH. MAMMOGRAPHIC SEED LOCALIZATION OF THAT AREA IS THEREFORE SUGGESTED. Impression dictated by: Althea Tobar M.D.07/12/2023 2:30 PM Dictation Location: [facility] Tech: Sheyla William Transcribed By: JONA 07/12/23 1430 Dictated By: Althea Tobar MD 07/12/23 1418 Signed By: <Electronically signed by MD Althea Tobar in OV> 07/12/23 1430 Narrative 07/12/2023 2:32 PM [facility] [place] [address] Ultrasound Report Signed Patient: Melony Laws MR#: [id number] : 1965 Acct:[id number] Age/Sex: 58 / F ADM Date: 07/12/23 Loc: [facility] Room: Type: [facility] Attending Dr: Rafael Velazquez DO Ordering Provider: Rafael Velazquez DO Date of Service: 07/12/23 US/US breast LT limited: R92.8 Copies to: Rafael Velazquez DO LIMITED LEFT BREAST ULTRASOUND CLINICAL DATA: [...] for lumpectomy. This was discussed with Dr. Velazquez and the patient. US/US breast LT limited Procedure Note Radiology, Radiologist, - 07/13/2023 [facility] Main [place] [address] [place] [address] Ultrasound Report Signed Patient: Melony LawsMR#: [id number] : 1965Acct:[id number] Age/Sex: 58 / FADM Date: 07/12/23 Loc: [facility] Room:Type: [facility] Attending Dr: Rafael Velazquez DO Ordering Provider: Rafael Velazquez DO Date of Service: 07/12/23 US/US breast LT limited: R92.8 Copies to: Rafael Velazquez DO LIMITED LEFT BREAST ULTRASOUND CLINICAL DATA: Follow-up abnormal outside breast MRI. Recently diagnosedDCIS and invasive ductal carcinoma. Reference is made to the prior MRI from June 29, 2023 and to previousmammograms and ultrasound studies from February 2023 through May 16, 2023. Real-time ultrasound evaluation of the inferior central breast wasperformed. At the 5:00 position, 2 cm from the nipple at the area of the more recent benign biopsy there alexsandra small residual hypo echoic area approximately 5 mm in size which may be minimal residualhematoma. There are some subtle heterogeneous areas at the inferior central breast around 6:00 which areslightly further from the nipple and deeper. It is inconclusive as to whether or not these couldcorrelate with the site of the original biopsy performed in March 2023 and 2 the area ofenhancement on the recent breast MRI. Since there are some residual calcifications at the original biopsysite mammographically, these could be localized for lumpectomy. This was discussed with and the patient. US/US breast LT limited IMPRESSION: NO CONVINCING ULTRASOUND FINDINGS AT THE SITE OF MRI CONCERN AND THEBIOPSY FROM LAST MARCH. MAMMOGRAPHIC SEED LOCALIZATION OF THAT AREA IS THEREFORE SUGGESTED. Impression dictated by: Althea Tobar M.D.07/12/2023 2:30 PM Dictation Location: [facility] Tech: Sheyla iWlliam Transcribed By: JONA 07/12/23 1430 Dictated By: Althea Tobar MD 07/12/23 1418 Signed By: <Electronically signed by MD Althea Tobar in OV> 07/12/23 1430 us Rafael Velazquez DO IMG US PROCEDURES Final R esult documented in this encounter Visit Diagnoses Not on filedocumented in this encounter Care Teams Box Loader Relationship Specialty Start Date End Date Alexia Raya MD PCP - General Family Medicine 03/15/23 09/04/24 Alexia Raya MD [address] [place] [phone] PCP - General Family Medicine 09/05/24 documented as of this encounter
--- OUTSIDE RECORDS SUMMARY | 2025-02-03 10:56 | XMS_ITS | Clinical Summary ---
Author Organization [facility] Address [address] [place] [address] Care Team Providers Care Cattle Broker Name Role Phone Alexia Raya MD Primary Care Provider [phone] Allergies Active Allergy Reactions Criticality Noted Date Comments Cephalosporins 08/01/2023 Other Reaction(s): Unknown Reaction Penicillins Other High 03/09/2023 Other Reaction(s): Swelling of Lip/Tongue/Throat Medications levothyroxine (Synthroid, Levoxyl) 75 MCG tablet Take 75 mcg by mouth in the morning. Take before meals. Active lithium ER (Eskalith) 450 MG 12 hr tablet Take 450 mg by mouth at bedtime. 3 Active omeprazole (PriLOSEC) [address] capsule Take 40 mg by mouth in the morning. Take before meals. Active QUEtiapine (SEROquel) 200 MG tablet Take 200 mg by mouth at bedtime. 3 Active rosuvastatin (Crestor) 20 MG tablet Take 20 mg by mouth in the morning. 3 Active letrozole (Femara) 2.5 MG chemo tablet Daily 4 Active busPIRone (Buspar) 5 MG tablet Take by mouth 2 (two) times a day Active alendronate (Fosamax) 70 MG tabletIndication s:Osteopenia, unspecified location Take 1 tablet (70 mg) by mouth every 7 (seven) days for 19 days Take in the morning with a full glass of water, on an empty stomach, and do not take anything else by mouth or lie down for the next 30 min. 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 04/10/2024 Abnormal mammogram 04/08/2024 Allergic rhinitis 04/08/2024 Breast pain, left 04/08/2024 Elevated fasting glucose 04/08/2024 GERD (gastroesophageal reflux disease) Hyperlipidemia 04/08/2024 Invasive ductal carcinoma of left breast 024 Osteopenia 04/08/2024 Right acute otitis media 04/08/2024 Right arm pain 04/08/2024 Screening for colon cancer 04/08/2024 Stage 3 chronic kidney disease 04/08/2024 Type 2 diabetes mellitus with hyperglycemia 06/2023 Malignant neoplasm of centra l portion of left breast in female, estrogen receptor positive 05/19/2023 Encounters Date Type Department Care Team Description 11/28/2024 Refill [facility] [address] [place] [phone] Monika Connor MA Osteopenia, unspecified location from Last 3 Months Immunizations Immunization Administration Dates Next Due Influenza, Injectable, MDCK, preservative free 1 Influenza, injectable, MDCK, preservative free, quadrivalent 02/28/2022 Influenza, injectable, quadrivalent, preservativ e free 01/23/2017,02/22/2016 Influenza, seasonal, injectable 02/26/1997 Influenza, seasonal, injectable, preservative fr ee 02/05/2015 Pneumococcal Polysaccharide PPSV23 02/26/1997 Family History Medical History Relation Name Comments Heart disease Father Cancer Maternal Grandmother Cecile Mckenna Mark Diabetes Maternal Grandmother Cecile Mckenna Mark Cancer Mother Cecile Grady Stomach cancer Mother Cecile Grady Breast cancer Neg Hx Colon cancer Neg Hx Ovarian cancer Neg Hx Relation Name Status Comments Father Maternal Grandmother Cecile Mckenna Ison Mother Cecile Grady Social History Tobacco Use Types Packs/Day Years Used Date Smoking Tobacco: Former Cigarettes 1 15 Q uit: 2017 Smokeless Tobacco: Never Tobacco Cessation:Counseling Given: Yes Alcohol Use Standard Drinks/Week Comments Not Currently 0 (1 standard drink = 0.6 oz pur e alcohol) Comments No Sex and Gender Information Value Date Recorded Sex Assigned at Not on file Legal Sex Female 7:40 PM EDT Gender Identity Not on file Sexual Orientation Not on file Last Filed Vital Signs Vital Sign Reading Time Taken Comments Blood Pressure 150/78 04/10/2024 12:50 PM EST Pulse 81 03/07/2024 1:23 PM EDT Temperature - - Respiratory Rate 16 10/03/2024 1:42 PM EDT Oxygen Saturation - - Inhaled Oxygen Concentration - - Weight 74.4 kg (164 lb) 10/03/2024 1:42 PM EDT Height 162.6 cm (5' 4 ) 10/03/2024 1:42 PM EDT Body Mass Index 28.15 10/03/2024 1:42 PM EDT Plan of Treatment Health Maintenance Due Date Last Done Comments CT Colonography 1965 Colonoscopy 1965 Colorectal Cancer Screening 1965 FIT-DNA 1965 FIT 1965 FOBT 1965 Sigmoidoscopy 1965 Mammogram 07/31/2024 08/01/2023, 07/07, 08/26/2022, Additional history exists Influenza Vaccine (#1) 2025 , 02/28/2022, 01/23/2017, Additional history exists Cervical Cancer Screening 07/19/2027 HPV/Cotest 07/19/2027 Pap Smear 07/19/2027 07/18/2022 Procedures Procedure Name Priority Date/Time Associated Diagnosis Comments BI MAMMOGRAM DIAGNOSTIC LEFT 08/01/2023 1:26 PM EDT PAP SMEAR Routine 07/18/2022 12:00 AM EDT from Last 3 Months or Most Recently Relevant to Health Maintenance Results * Left diagnostic mammogram (08/01/2023 1:26 PM EDT) Anatomical Region Laterality Modality Breast Left Mammography 08/01/2023 1:26 PM EDT Impressions 08/01/2023 1:30 PM EDT Resection of the radiation. Impression dictated by: Sandro Cintron M.D.08/01/2023 1:27 PM Dictation Location: [facility] Transcribed By: [facility] 08/01/23 1327 Dictated By: Sandro Cintron DO 08/01/23 1326 Signed By: <Electronically signed by Sandro Cintron DO in OV> 08/01/23 1327 Narrative 08/01/2023 1:30 [place] [address] Mammography Report Signed Patient: Melony Laws MR#: [id number] : 1965 Acct:[id number] Age/Sex: 58 / F ADM Date: 08/01/23 Loc: [place] Room: Type: [facility] Attending Dr: Rafael Velazquez DO Copies to: DO Alexia Alexanrde MD Ordering Provider: Rafael Velazquez DO Date of Service: 08/01/23 MM/MM surgical specimen LT: LEFT BREAST SPECIMEN IN OR WITH RADIOACTIVE SEED Fluoroscopic assessment of left lumpectomy surgical specimen HISTORY: Evaluate left lumpectomy 1 Image The radiation seed identified within the specimen. MM/MM surgical specimen LT Procedure Note Radiology, Radiologist, MD - 08/01/2023 [place] [address] Mammography Report Signed Patient: Melony LawsMR#: [id number] : 1965Acct:[id number] Age/Sex: 58 / FADM Date: 08/01/23 Loc: [place] Room:Type: [facility] Attending Dr: Rafael Velazquez DO Copies to: DO Alexia Alexandre MD Ordering Provider: Rafael Velazquez DO Date of Service: 08/01/23 MM/MM surgical specimen LT: LEFT BREASTSPECIMEN IN OR WITH RADIOACTIVE SEED Fluoroscopic assessment of left lumpectomy surgical specimen HISTORY: Evaluate left lumpectomy 1 Image The radiation seed identified within the specimen. MM/MM surgical specimen LT IMPRESSION: Resection of the radiation. Impression dictated by: Sandro Cintron M.D.08/01/2023 1:27 PM Dictation Location: [place] [address] Transcribed By: [facility] 08/01/23 1327 Dictated By: Sandro Cintron DO 08/01/23 1326 Signed By: <Electronically signed by Sandro Cintron DO in OV> 08/01/23 1327 us Rafael Velazquez DO IMG BI PROCEDURES Final R esult * Pap Smear (07/18/2022 12:00 AM EDT) Swab Cervical swab / Unknown us Oliver Stafford MD LAB CYTOLOGY ORDERABLES Final Result EXTERNAL LAB from Last 3 Months or Most Recently Relevant to Health Maintenance Insurance MEDICAID [place] [employer] MEDICARE ADVANTAGE Care Teams Cattle Broker Relationship Specialty Start Date End Date Alexia Raya MD [address] [facility] [place] [phone] PCP - General Family Medicine 09/05/24
--- OUTSIDE RECORDS SUMMARY | 2025-02-03 10:56 | XMS_ITS | Patient Health Record ---
Author Organization [facility] [employer] [facility] Address [address] [address], [facility] [place] [address] Care Team Providers Care Developer Advisor Name Role Phone Sofi Yan Primary Care Provider Juliano Alvarez [phone] Allergies Allergen (clinical drug ingredient) Drug/Non Drug Allergy documented on EMR Reaction Allergy Type Onset Date Status Penicillin Unknown Drug Allergy Active Reason For Referral No Information Medications Medication SIG (Take, Route, Frequency, Duration) Notes Start Date End Date Status Letrozole 2.5 MG Tablet Oral; Duration: 90 Days Active busPIRone HCl 5 MG Tablet TAKE 1 TABLET BY MOUTH EVERYDAY AT BEDTIME Oral; Duration: 90 Days Active [place] Carbonate ER 450 MG Tablet Extended Release TAKE 1 TABLET BY MOUTH EVERYDAY AT BEDTIME Oral; Duration: 90 Days Active Rosuvastatin Calcium 20 MG Tablet Oral; Duration: 90 Days Acti ve Levothyroxine Sodium 50 MCG Tablet Oral; Duration: 90 Days Acti ve Gabapentin 300 MG Capsule TAKE 1 CAPSULE BY MOUTH AT BEDTIME Oral; Duration: 60 Days Active Alendronate Sodium 70 MG Tablet PLEASE SEE ATTACHED FOR DETAILED DIRECTIONS Oral; Duration: 84 Days Active Calcium Active Vitamin D3 Active Omeprazole 40 MG Capsule Delayed Release 1 capsule 1/2 to 1 hour before morning meal Orally Once a day Active Social History Section Notes: Former smoker. No alcohol use. Former smoker. No alcohol use. Encounters Encounter Location Date Provider Diagnosis [facility] [address] [address], [facility] [place] [address] 10/24/2024 Juliano Granger Cellulitis of left foot L03.116 ; Ingrown right big toenail L60.0 and Congenital tarsal coalition Q66.89 [facility] [address] [place] [address] 01/10/2025 Juliano Granger Onychomycosis B35.1 ; Right foot pain M79.671 and Left foot pain M79.672 Assessments Encounter Date Diagnosis (ICD Code) Assessment Notes Treatment Notes Treatment Clinical Notes Section Notes 10/24/2024 Cellulitis of left foot (ICD-10 - L03.116) Suspected spider bite due to swelling and pinprick sensation. Prevent infection with antibiotics. - Rx for bactrim & tetracycline x7 days - Continue taking Advil and Tylenol for pain relief. - Apply ice to the affected area. - Monitor redness and take pictures to track changes. - Seek medical attention if symptoms worsen or redness spreads. 10/24/2024 Ingrown right big toenail (ICD-10 - L60.0) Previous toenail removal due to thickening. No current pain or drainage. - Monitor for any signs of infection or drainage. - Residual nail and subungal debris easily removed without incident using a small nail nipper 01/10/2025 Right foot pain (ICD-10 - M79.671) 01/10/2025 Onychomycosis (ICD-10 - B35.1) Patient was seen and evaluated. Patient education was provided and all questions answered to satisfaction. Patient meets class findings with absent pedal pulses. Toenails 1-9 were sharply debrided without incident and to patient satisfaction. I discussed use of topical antifungals and their efficacy as well as recommended Kyaw's Vapor Rub to soften the hard brittle toenails. I discussed and did not recommend use of PO antifungal due to possible hepatotoxicity. Patient will f/u in 3 months for routine nailcare. No new x-rays are required. 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 No history of symptoms related to this condition. - No treatment required as it is an incidental finding. - Monitor for any future symptoms related to the condition. Plan Of Treatment No Information Insurance Providers Payer Name Payer Address Payer Phone Subscriber Number Group Number Insured Name Patient Relationship to Insured Coverage Start Date Coverage End Date [facility] [address] [place] [phone] [id number] Melony Laws Self - patient is the insured Medicaid of [place] [address] [place] [address] [id number] Melony Laws Self - patient is the insured Medical (General) History Medical History History ICD Code Breast Cancer Diabetes High Cholesterol Thyroid Issues Slow Healing Problems Surgical History Surgery Date(Month/Year) Tubal Ligation 1984 Laproscopic Surgery 1997 Right and Left Cataract 2016 Left Retina 2019 Left Breast Lumpectomy 2023
--- OUTSIDE RECORDS SUMMARY | 2025-02-03 10:56 | XMS_ITS | Encounter Summary ---
Author Organization [facility] Address [address] [facility] [place] [address] Care Team Providers Care Insurance Sales Representative Name Role Phone Alexia Raya MD Primary Care Provider [phone] Alexia Raya MD Primary Care Provider [phone] Encounter Details Date Type Department Care Team (Late st Contact Info) Description 07/31/2023 External Result Encounter [facility] External Department Unsolicited Rafael Velazquez H, DO [address] [facility] [address] [place] [address] Social History Tobacco Use Types Packs/Day Years [...] Procedure Name Priority Date/Time Associated Diagnosis Comments MM NEEDLE LOC LT 07/31/2023 12:4 8 PM EDT documented in this encounter Results * MM NEEDLE LOC LT (07/31/2023 12:48 PM EDT) Anatomical Region Laterality Modality Radiographic Mariam ging 07/31/2023 12:4 8 PM EDT Impressions 07/31/2023 12:56 PM EDT STATUS POST STEREOTACTIC LOCALIZATION OF RESIDUAL CALCIFICATIONS AT THE INFERIOR CENTRAL LEFT BREAST. Impression dictated by: Althea Tobar M.D.07/31/2023 12:53 PM Dictation Location: S Transcribed By: JONA 07/31/23 1253 Dictated By: Althea Tobar MD 07/31/23 1248 Signed By: <Electronically signed by MD Althea Tobar in OV> 07/31/23 1253 Narrative 07/31/2023 12:56 PM EDT [facility] [address] [place] [id number] Mammography Report Signed Patient: Melony Laws MR#: [id number] : 1965 Acct:[id number] Age/Sex: 58 / F ADM Date: 07/24/23 Loc: [place] Room: Type: [facility] Attending Dr: Rafael Velazquez DO Copies to: DO Alexia Alexandre MD Ordering Provider: Rafael Velazquez DO Date of Service: 07/31/23 MM/MM needle loc LT: LEFT BREAST RADIOACTIVE SEED LOC LEFT BREAST MAMMOGRAPHIC SEED LOCALIZATION CLINICAL DATA: Left breast cancer Patient's previous imaging from August 01, 2022 through May 16, 2023 was reviewed. The procedure was discussed with patient and consent was obtained. Patient was placed in mediolateral compression and a team facilitator view of the inferior left breast was [...] the lumpectomy specimen. MM/MM needle loc LT Procedure Note Radiology, Radiologist, - 07/31/2023 [facility] Main [place] [id number] Mammography Report Signed Patient: Melony LawsMR#: [id number] : 1965Acct:[id number] Age/Sex: 58 / FADM Date: 07/24/23 Loc: [place] Room:Type: [facility] Attending Dr: Rafael Velazquez DO Copies to: DO Alexia Alexandre MD Ordering Provider: Rafael Velazquez DO Date of Service: 07/31/23 MM/MM needle loc LT: LEFT BREAST RADIOACTIVESEED LOC LEFT BREAST MAMMOGRAPHIC SEED LOCALIZATION CLINICAL DATA: Left breast cancer Patient's previous imaging from August 01, 2022 through May 16, 2023 wasreviewed. The procedure was discussed with patient and consent was obtained. Patient was placed inmediolateral compression and a team facilitator view of the inferior left breast was obtained. The asymmetryand associated calcification at the inferior central breast was identified. Followingsterile preparation and local anesthesia with lidocaine, a spinal needle loaded with a ration seed(0.174 mCi iodine 125) was advanced into the breast from a medial approach. Following documentationof needle position in the craniocaudal plane, the seed was deployed. On the final images, the seedis adjacent to the residual calcifications. The biopsy marking clip migrated back along the tract ofthe of the needle at the time the stereotactic biopsy and is several centimeters superior to thebiopsy site. The biopsy marking clip will therefore not be present within the lumpectomy specimen. MM/MM needle loc LT IMPRESSION: STATUS POST STEREOTACTIC LOCALIZATION OF RESIDUAL CALCIFICATIONS AT THEINFERIOR CENTRAL LEFT BREAST. Impression dictated by: Althea Tobar M.D.07/31/2023 12:53 PM Dictation Location: [facility] Transcribed By: [facility] 07/31/23 1253 Dictated By: Althea Tobar MD 07/31/23 1248 Signed By: <Electronically signed by MD Althea Tobar in OV> 07/31/23 1253 us Rafael Velazquez DO IMG XR PROCEDURES Final R esult documented in this encounter Visit Diagnoses Not on filedocumented in this encounter Care Teams Insurance Sales Representative Relationship Specialty Start Date End Date Alexia Raya MD PCP - General Family Medicine 03/15/23 09/04/24 Alexia Raya MD [address] [place] [phone] PCP - General Family Medicine 09/05/24 documented as of this encounter
--- OUTSIDE RECORDS SUMMARY | 2025-02-03 10:56 | XMS_ITS | Encounter Summary ---
Author Organization [facility] Address [address] [place] [address] Care Team Providers Care Office Support Assistant Name Role Phone Alexia Raya MD Primary Care Provider [phone] Alexia Raya MD Primary Care Provider [phone] Reason for Visit * Reason Comments Med Refill Encounter Details Date Type Department Care Team (Late st Contact Info) Description 10/30/2023 [facility]ill [facility] [address] [place] [phone] Chel Mahoney PA [address] [place], [facility] Osteopenia, unspecified location Social History Tobacco Use Types Packs/Day Years [...] on file documented as of this encounter Miscellaneous Notes * Telephone Encounter - Elda Rodriguez LPN - 10/31/2023 10:19 AM EDT Approving, but needs appt for additional refills. documented in this encounter Plan of Treatment Not on file documented as of this encounter Visit Diagnoses Diagnosis Osteopenia, unspecified location documented in this encounter Care Teams Office Support Assistant Relationship Specialty Start Date End Date Alexia Raya MD PCP - General Family Medicine 03/15/23 09/04/24 Alexia Raya MD [address] [place] [phone] PCP - General Family Medicine 09/05/24 documented as of this encounter
--- OUTSIDE RECORDS SUMMARY | 2025-02-03 10:56 | XMS_ITS | Clinical Summary ---
Author Organization [facility] Address [address] [place] [address] Phone Care Team Providers Care Computer Terminal Operator Name Role Phone Unavailable Primary Care Provider Unavailabl e Social History Tobacco Use Types Packs/Day Years Used Date Smoking Tobacco: Never Assessed Comments Unknown Sex and Gender Information Value Date Recorded Sex Assigned at Not on file Legal Sex Female 7:14 AM EST Gender Identity Not on file Sexual Orientation Not on file Plan of Treatment Health Maintenance Due Date Last Done Comments CT Colonography 1964 Colonoscopy 1965 Colorectal Cancer Screening 1965 FIT-DNA (Cologuard) 1965 FIT 1965 HIV Screening 1965 Lipid Panel 1965 Medicare Annual Wellness Vis it (AWV) 1965 Sigmoidoscopy 1964 MMR Vaccines (1 of 1 - Stand bryant series) 01/31/1965 Hepatitis C Screening 01/31/1982 Cervical Cancer Screening 01/31/1985 HPV/Cotest 01/31/1985 Pap Smear 01/31/1985 DTaP/Tdap/Td Vaccines (1 - Tdap) 01/31/1986 Mammogram 2004 Pneumococcal Vaccine (1 of 1 - PCV) 01/31/2014 Zoster Vaccines (1 of 2) 01/31/2014 COVID-19 Vaccine (1 - 2023-2 5 season) 2025 Influenza Vaccine (#1) 2025 RSV High Risk: (Elderly (60+ ) or Population) (1 - 1-dose 75+ series) 01/31/2039 HIB Vaccines Aged Out No longer eligi ble based on patient's age to complete this topic HPV Vaccines Aged Out No longer eligi ble based on patient's age to complete this topic Hepatitis A Vaccines Aged Out No long er eligible based on patient's age to complete this topic Hepatitis B Vaccines Aged Out No long er eligible based on patient's age to complete this topic IPV Vaccines Aged Out No longer eligi ble based on patient's age to complete this topic Meningococcal Vaccine Aged Out No veena yudelka eligible based on patient's age to complete this topic Rotavirus Vaccines Aged Out No longer eligible based on patient's age to complete this topic Insurance [email or web address] CHOICE MEDICAID [employer] CHO[employer] MEDICAID
--- OUTSIDE RECORDS SUMMARY | 2025-02-03 10:56 | XMS_ITS | Encounter Summary ---
Author Organization [facility] Address [address] [place] [address] Care Team Providers Care Radioisotope Production Operator Name Role Phone Alexia Raya MD Primary Care Provider [phone] Alexia Raya MD Primary Care Provider [phone] Encounter Details Date Type Department Care Team (Late st Contact Info) Description 05/16/2023 External Result Encounter [facility] External Department Unsolicited Rafael Velazquez H, DO [address] [facility] [address] [place] [address] Social History Tobacco Use Types Packs/Day Years [...] Diagnosis Comments BI US BREAST LIMITED LEFT 05/16/2023 10:46 AM EST documented in this encounter Results * Left breast US limited (05/16/2023 10:46 AM EST) Anatomical Region Laterality Modality Breast Left Ultrasound 05/16/2023 10:4 6 AM EST Impressions 05/16/2023 10:49 PM EST STATUS POST ULTRASOUND GUIDED VACUUM-ASSISTED CORE BIOPSIES OF THE LEFT BREAST. RESULT CODE: NL Impression dictated by: Mateusz Jamison Jr., D.O.05/16/2023 12:03 PM Dictation Location: [facility] Transcribed By: [facility] 05/16/23 1203 Dictated By: Mateusz Jamison Jr, DO 05/16/23 1046 Signed By: <Electronically signed by Mateusz Jamison Jr, DO in OV> 05/16/23 1203 Narrative 05/16/2023 10:49 PM [facility] Main Lily [address] [place] [address] Mammography Report Signed with Addenda Patient: Melony Laws MR#: [id number] : 1965 Acct:[id number] Age/Sex: 58 / F ADM Date: 04/28/23 [place]: [place] Room: Type: [facility] Attending Dr: Rafael Velazquez DO Copies to: DO Alexia Alexandre MD Ordering Provider: Rafael Velazquez DO Date of Service: 05/16/23 US/US breast LT limited: ABN. MAMM ([id number]) US/US extremity nonvascular: LEFT AXILLA ([id number]) US/US breast ndl core biopsy LT: ABN. MAMM ([id number]) MM/MM post biopsy LT w/CAD: POST U/S BX WITH CLIP ADDENDUM 1 Addendum for pathology: Ultrasound-guided biopsy 6:00 position 2 cm from the nipple: Focal fibroadenomatoid change. No in situ or invasive carcinoma identified. Finding is benign and concordant with imaging. Surgical/oncologic management of the patient's known cancer is recommended. Impression dictated by: Mateusz Jamison Jr., D.O.05/18/2023 9:20 AM Dictation Location: [facility]12 Addendum Dictated By: Mateusz Jamison Jr, DO Addendum Signed By: <Electronically signed by Mateusz Jamison Jr, DO in OV> 05/18/23919 Addendum Cosigned By: DD/ /31/918 TD/TT: 05/18/2303/31/920 ULTRASOUND GUIDED VACUUM-ASSISTED HOLOGIC ATEC SYSTEM CORE BIOPSIES OF THE LEFT BREAST: CLINICAL DATA: History of stereotactically biopsied breast cancer within the left breast. PROCEDURE: The patient was initially scheduled for a radioactive seed placement. The patient's outside images from [facility] were reviewed and discussed with the [...] alternatives to an ultrasound guided vacuum-assisted [facility] system core biopsy procedure were discussed with the patient and written informed consent was obtained. Ultrasonographic survey of the 6:00 position of the left breast 2 cm from the nipple was performed by wood technologist . The previously identified mass was [...] breast mass were performed using a 12-gauge Rewardpod vacuum-assisted core biopsy needle under ultrasound guidance. [...] of migration. MM/MM post biopsy LT w/CAD Procedure Note Radiology, Radiologist, MD - 05/18/2023 [facility] Main Lily [address] [place] [address] Mammography Report Signed with Addenda Patient: Melony LawsMR#: [id number] : 1965Acct:[id number] Age/Sex: 58 / FADM Date: 04/28/23 [place] Room:Type: [facility] Attending Dr: Rafael Velazquez DO Copies to: DO Alexia Alexandre MD Ordering Provider: Rafael Velazquez DO Date of Service: 05/16/23 US/US breast LT limited: ABN. MAMM ([id number]) US/US extremity nonvascular: LEFT AXILLA ([id number]) US/US breast ndl core biopsy LT: ABN. MAMM ([id number]) MM/MM post biopsy LT w/CAD: POST U/S BX WITH CLIP ADDENDUM 1 Addendum for pathology: Ultrasound-guided biopsy 6:00 position 2 cm from the nipple: Focalfibroadenomatoid change. No in situ or invasive carcinoma identified. Finding is benign and concordant with imaging. Surgical/oncologicmanagement of the patient's known cancer is recommended. Impression dictated by: Mateusz Jamison Jr., D.OBeatriz05/18/2023 9:20 AM Dictation Location: [place] [address] Addendum Dictated By: Mateusz Jamison Jr, DO Addendum Signed By: <Electronically signed by Jr Meyer DO in OV> 05/18/23919 Addendum Cosigned By: DD/ /31/918 TD/TT: 05/18/2303/31/920 ULTRASOUND GUIDED VACUUM-ASSISTED HOLOGIC ATEC SYSTEM CORE BIOPSIES OF THELEFT BREAST: CLINICAL DATA: History of stereotactically biopsied breast cancer withinthe left breast. PROCEDURE: The patient was initially scheduled for a radioactive seed placement. Thepatient's outside images from [facility] were reviewed and discussed with the referringsurgeon. After discussion with the referring surgeon, the radioactive seed placement was postponed andultrasound-guided biopsy of a mass at the 6:00 position of the left breast approximately 2 cm from thenipple was performed. The patient and her daughter were informed of the change in procedure. The risks, benefits and alternatives to an ultrasound guidedvacuum-assisted Hologic ATEC system core biopsy procedure were discussed with the patient and written informedconsent was obtained. Ultrasonographic survey of the 6:00 position of the left breast 2 cm fromthe nipple was performed by wood technologist . The previously identified mass was localizedwith additional adjacent irregular masslike areas also noted. Additional scanning of the leftaxilla demonstrated no suspicious lymph nodes. The patient's overlying skin was anesthetized with 1% lidocaine. Thedeeper soft tissues up to and around the mass were anesthetized with lidocaine mixed with epinephrine.Following this, multiple core biopsies of the left breast mass were performed using a 12-gaugeSuros vacuum-assisted core biopsy needle under ultrasound guidance. Multiple core biopsy specimenswere obtained. A metallic post biopsy marker was then placed. Post procedure mammograms wereperformed. The patient tolerated the procedure well with a small hematoma identified at the biopsy site POSTPROCEDURE MAMMOGRAMS: Craniocaudal, MLO and true lateral views of theleft breast were performed using low dose digital technique. The postbiopsy marker is seen at the biopsy site without evidence ofmigration. MM/MM post biopsy LT w/CAD IMPRESSION: STATUS POST ULTRASOUND GUIDED VACUUM-ASSISTED CORE BIOPSIES OF THE LEFTBREAST. RESULT CODE: NL Impression dictated by: Mateusz Jamison Jr., D.O.05/16/2023 12:03 PM Dictation Location: [facility] Transcribed By: [facility] 05/16/23 1203 Dictated By: Mateusz Jamison Jr, DO 05/16/23 1046 Signed By: <Electronically signed by Mateusz Jamison Jr, DO inOV> 05/16/23 1203 us Rafael Velazquez DO IM US PROCEDURES Edited Result - Final documented in this encounter Visit Diagnoses Not on filedocumented in this encounter Care Teams Radioisotope Production Operator Relationship Specialty Start Date End Date Alexia Raya MD PCP - General Family Medicine 03/15/23 09/04/24 Alexia Raya MD [address] [place] [phone] PCP - General Family Medicine 09/05/24 documented as of this encounter
--- OUTSIDE RECORDS SUMMARY | 2025-02-03 10:56 | XMS_ITS | Encounter Summary ---
Author Organization [facility] Address [address] [facility] [place] [address] Care Team Providers Care Compliance Advisor Name Role Phone Alexia Raya MD Primary Care Provider [phone] Alexia Raya MD Primary Care Provider [phone] Encounter Details Date Type Department Care Team (Late st Contact Info) Description 08/01/2023 External Result Encounter [facility] External Department Unsolicited Rafael Velazquez H, DO [address] [facility] [address] [place] [address] Social History Tobacco Use Types Packs/Day Years [...] Procedure Name Priority Date/Time Associated Diagnosis Comments NM LYMPHOSCINTIGRAM 08/01/2023 1 :50 PM EDT documented in this encounter Results * NM lymphoscintigram (08/01/2023 1:50 PM EDT) Anatomical Region Laterality Modality Nuclear Medicine 08/01/2023 1:50 PM EDT Impressions 08/01/2023 1:53 PM EDT Migration of radiotracer seen to the left axilla. Impression dictated by: Harshal Byrd Jr.BeatrizOBeatriz08/01/2023 1:51 PM Dictation Location: [facility]08 Transcribed By: JONA 08/01/23 1351 Dictated By: Mateusz Jamison Jr, DO 08/01/23 1350 Signed By: <Electronically signed by Mateusz Jamison Jr, DO in OV> 08/01/23 1351 Narrative 08/01/2023 1:53 PM EDT [place] [id number] Nuclear Medicine Report Signed Patient: Melony Laws MR#: [id number] : 1965 Acct:[id number] Age/Sex: 58 / F ADM Date: 08/01/23 Loc: [place] Room: Type: [facility] Attending Dr: Rafael Velazquez DO Copies to: DO Mateusz Alexandre Jr, DO Ordering Provider: Rafael Velazquez DO Date of Service: 08/01/23 NM/NM sentinel node w imaging: Left Breast Cancer Nuclear medicine Coyote node lymphoscintigraphy. Reason for exam: Left breast cancer. TECHNIQUE: 0.498 mCi of technetium 99m sulfur colloid was injected into the left breast and delayed images were obtained. FINDINGS: Delayed images demonstrate migration of the radiotracer to the left axilla. NM/NM sentinel node w imaging Procedure Note Radiology, Radiologist, MD - 08/01/[address] [address] Nuclear Medicine Report Signed Patient: Melony LawsMR#: [id number] : 1965Acct:[id number] Age/Sex: 58 / FADM Date: 08/01/23 Loc: [place] Room:Type: [facility] Attending Dr: Rafael Velazquez DO Copies to: DO Mateusz Alexandre Jr, DO Ordering Provider: Rafael Velazquez DO Date of Service: 08/01/23 NM/NM sentinel node w imaging: Left BreastCancer Nuclear medicine [place] node lymphoscintigraphy. Reason for exam: Left breast cancer. TECHNIQUE: 0.498 mCi of technetium 99m sulfur colloid was injected intothe left breast and delayed images were obtained. FINDINGS: Delayed images demonstrate migration of the radiotracer to theleft axilla. NM/NM sentinel node w imaging IMPRESSION: Migration of radiotracer seen to the left axilla. Impression dictated by: Mateusz Jamison Jr., D.OBeatriz08/01/2023 1:51 PM Dictation Location: [place] [address] Transcribed By: [facility] 08/01/23 1351 Dictated By: Mateusz Jamison Jr, DO 08/01/23 1350 Signed By: <Electronically signed by Mateusz Jamison Jr DO inOV> 08/01/23 1351 Rafael Velazquez DO IMG NM PROCEDURES Final R esult documented in this encounter Visit Diagnoses Not on filedocumented in this encounter Care Teams Compliance Advisor Relationship Specialty Start Date End Date Alexia Raya MD PCP - General Family Medicine 03/15/23 09/04/24 Alexia Raya MD [address] [place] [address] PCP - General Family Medicine 09/05/24 documented as of this encounter
--- OUTSIDE RECORDS SUMMARY | 2025-02-03 10:56 | XMS_ITS | Encounter Summary ---
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
--- OUTSIDE RECORDS SUMMARY | 2025-02-03 10:56 | XMS_ITS | Encounter Summary ---
Author Organization [facility] Address [address] [place] [address] Care Team Providers Care Energy Advisor Name Role Phone Alexia Raya MD Primary Care Provider [phone] Alexia Raya MD Primary Care Provider [phone] Encounter Details Date Type Department Care Team (Late st Contact Info) Description 06/30/2023 Clinisync Result Encounter [facility] External Department Unsolicited Rafael Velazquez, DO [address] [facility] [address] [place] [address] Social History Tobacco Use Types Packs/Day Years [...] Procedure Name Priority Date/Time Associated Diagnosis Comments MRI BREAST BILATERAL W WO CONTRAST 06/30/2023 3:14 PM EST documented in this encounter Results * MRI BREAST BILATERAL W WO CONTRAST (06/30/2023 3:14 PM EST) Anatomical Region Laterality Modality Other 06/30/2023 3:14 PM EST Narrative 06/30/2023 3:18 PM EST EXAMINATION: MRI OF THE BILATERAL [...] by: Anthony Pichardo MD 06/30/23 Final result Procedure Note Radiology, Radiologist, - 06/30/2023 EXAMINATION: MRI OF THE BILATERAL BREASTS WITHOUT AND WITH CONTRAST 06/29/2023 10:14am: TECHNIQUE: Multiplanar multisequence MRI of the bilateral breasts were performedwithout and with the administration of intravenous contrast. Data analysis was performed with color parametric mapping, imagesubtraction, and 3D reconstructions. COMPARISON: Outside imaging including post biopsy left mammogram 05/16/2023, leftbreast ultrasound 05/16/2023 and bilateral mammography 08/01/2022. 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 Additional signs and symptoms: Malignant neoplasm of central portion ofleft breast in female, estrogen receptor positive (HCC), Other abnormal and inconclusive findings on diagnostic imaging of breast FINDINGS: BACKGROUND PARENCHYMAL ENHANCEMENT: Mild. FIBROGLANDULAR TISSUE: Scattered fibroglandular tissue. RIGHT BREAST: No suspicious enhancement or mass. LEFT BREAST: Small T1 hyperintense ovoid cavity in the anterolateralleft breast is noted, corresponding to biopsy clip site. No abnormalenhancement identified in this region. A 0.7 cm enhancing mass is present in the 6 o'clock location, 7.3 cm fromthe nipple. EXTRAMAMMARY STRUCTURES: No enlarged or suspicious appearing axillarylymph node. No signal abnormality otherwise appreciated in the visualized chestor upper abdomen. IMPRESSION: 1. 0.7 cm mass in the 6 o'clock left breast, for which second-look ultrasound is recommended. 2. No enhancement identified in the site of biopsy in the anterolateralleft breast. Small post biopsy hematoma is present. 3. No suspicious MRI finding identified in the right breast. BI-RADS 6 BIRADS: BIRADS - CATEGORY 6 Known Biopsy-Proven Cancer. Appropriate action should be taken. OVERALL ASSESSMENT - KNOWN BIOPSY PROVEN MALIGNANCY. Interpreted by: Anthony Pichardo MD Signed by: Anthony Pichardo MD 06/30/23 Final result Rafael Velazquez DO [facility] Final R esult documented in this encounter Visit Diagnoses Not on filedocumented in this encounter Care Teams Energy Advisor Relationship Specialty Start Date End Date Alexia Raya MD PCP - General Family Medicine 03/15/23 09/04/24 Alexia Raya MD [address] [place] [phone] PCP - General Family Medicine 09/05/24 documented as of this encounter
--- OUTSIDE RECORDS SUMMARY | 2025-02-03 10:56 | XMS_ITS | Encounter Summary ---
Author Organization [facility] Address [address] [place] [address] Care Team Providers Care Banquet Director Name Role Phone Alexia Raya MD Primary Care Provider [phone] Alexia Raya MD Primary Care Provider [phone] Encounter Details Date Type Department Care Team (Late st Contact Info) Description 08/01/2023 External Result Encounter [facility] External Department Unsolicited Rafael Velazquez H, DO [address] [facility] [address] [place] [address] Social History Tobacco Use Types Packs/Day Years [...] MAMMOGRAM DIAGNOSTIC LEFT 08/01/2023 1:26 PM EDT documented in this encounter Results * Left diagnostic mammogram (08/01/2023 1:26 PM EDT) Anatomical Region Laterality Modality Breast Left Mammography 08/01/2023 1:26 PM EDT Impressions 08/01/2023 1:30 PM EDT Resection of the radiation. Impression dictated by: Sandro Cintron M.D.08/01/2023 1:27 PM Dictation Location: [facility]12 Transcribed By: [facility] 08/01/23 1327 Dictated By: Sandro Cintron DO 08/01/23 1326 Signed By: <Electronically signed by Sandro Cintron DO in OV> 08/01/23 1327 Narrative 08/01/2023 1:30 PM EDT [place] [id number] Mammography Report Signed Patient: Melony Laws MR#: [id number] : 1965 Acct:[id number] Age/Sex: 58 / F ADM Date: 08/01/23 Loc: [place] Room: Type: [facility] Attending Dr: Rafael Velazquez DO Copies to: DO Alexia Alexandre MD Ordering Provider: Rafael Velazquez DO Date of Service: 08/01/23 MM/MM surgical specimen LT: LEFT BREAST SPECIMEN IN OR WITH RADIOACTIVE SEED Fluoroscopic assessment of left lumpectomy surgical specimen HISTORY: Evaluate left lumpectomy 1 Image The radiation seed identified within the specimen. MM/MM surgical specimen LT Procedure Note Radiology, Radiologist, - 08/01/[address] [address] Mammography Report Signed Patient: Melony LawsMR#: [id number] : 1965Acct:[id number] Age/Sex: 58 / FADM Date: 08/01/23 Loc: [place] Room:Type: [facility] Attending Dr: Rafael Velazquez DO Copies [...] 1:27 PM Dictation Location: [facility] Transcribed By: [facility] 08/01/23 1327 Dictated By: Sandro Cintron DO 08/01/23 1326 Signed By: <Electronically signed by Sandro Cintron DO in OV> 08/01/23 1327 Rafael Velazquez DO IMG BI PROCEDURES Final R esult documented in this encounter Visit Diagnoses Not on filedocumented in this encounter Care Teams Banquet Director Relationship Specialty Start Date End Date Alexia Raya MD PCP - General Family Medicine 03/15/23 09/04/24 Alexia Raya MD [address] [place] [phone] PCP - General Family Medicine 09/05/24 documented as of this encounter
--- OUTSIDE RECORDS SUMMARY | 2025-02-03 10:56 | XMS_ITS | Encounter Summary ---
Author Organization [facility] Address [address] [place] [address] Phone Care Team Providers Care Editor Map Name Role Phone Unavailable Primary Care Provider Unavailabl e Encounter Details Date Type Department Care Team (Late st Contact Info) Description 04/10/2023 Lab Requisition [facility] [address] [place] [phone] Maryana Smith [address] [place] [address] Social History Tobacco Use Types Packs/Day Years [...] Procedure Name Priority Date/Time Associated Diagnosis Comments SURGICAL PATHOLOGY EXAM Routine 04/10/2023 7:20 AM EST documented in this encounter Results * Surgical Pathology Exam (04/10/2023 7:20 AM EST) Case Report Surgical Pathology Case: [id number] Authorizing Provider: Maryana Smith Collected: 04/10/2023719 Ordering Location: [facility] Received: 04/10/2023720 Center Pathologist: Oleg Gordon DO Specimen: BREAST CORE BIOPSY LEFT, [id number] 05/16/2023 2:13 PM EST [facility] FINAL DIAGNOSIS HER2 DUAL XOCHITL FOR DETECTION OF HER2 GENE AMPLIFICATION HER2 Dual XOCHITL DNA Probe Cocktail Assay from [employer] (RingRang) Results are expressed as the averaged ratio HER2/chromosome 17 signals in 20 nuclei. Source of Specimen: Left breast, core biopsy Paraffin Block: [id number] ([facility] case [id number]) Duration of fixation: unless otherwise noted, 6-72 hours fixation TEST RESULTS: Number of tumor cells counted: 20 Number of observers: 1 Average number of HER2 signals/nucleus: 1.7 Average number of CEP 17 signals/nucleus: 1.7 Ratio of average HER2/CEP 17: 1.0 INTERPRETATION: Negative (Not amplified) NOTE: Patient's with a HER2/CEP 17 Dual XOCHITL ratio of greater than or equal to 2.0 were considered eligible for treatment in the adjuvant trastuzumab trials. (References: Chevy et al. Breast Cancer Res Treat 94:S5, 2005 (Supp 1; Abs1); Tata et al, N Engl J Med 353: 9402-1213; marissa Conn al, N Engl J Med 353: 3592-8200, 2005; and ANNIE trial study, presented as late breaking abstract at 42nd Annual Meeting of the [place] Society of [employer] Oncology, [place], [place], J Clin Oncol 242005) Anne Marie et al J. Clin Oncol; Recommendations for human epidermal growth factor receptor 2 testing in breast cancer: [place] Society of Clinical Oncology/College of [place] Pathologists clinical practice guideline update 2018. REFERENCE RANGES: Ratio <2.0 and average HER2 signal <4.0: Negative (non-amplified) Ratio >=2.0 and average HER2 signal >=4.0: Positive (amplified) Control results: External (amplified, equivocal, non-amplified) and internal controls perform as expected. INFORM HER2 Dual XOCHITL DNA Probe Cocktail Assay from [employer] ([employer]) is intended to determine HER2 gene status by enumeration of the ratio of the HER2 gene to Chromosome 17. The HER2 and Chromosome 17 probes are detected using two color chromogenic in situ hybridization (XOCHITL) in formalin-fixed, paraffin-embedded human breast cancer and gastroesophageal tissue specimens following staining on Instant BioScan [employer] ULTRA automated slide stainer (using [employer] software), by light microscopy. The INFORM HER2 Dual XOCHITL DNA Probe Cocktail is indicated as an aid in the assessment of patients for whom Herceptin (trastuzumab) treatment is being considered. This assay was interpreted by a qualified reader in conjunction with histological examination, relevant clinical information, and proper controls. This reagent is intended for in vitro diagnostic (IVD) use. One or more of the reagents used to perform assays on this specimen MAY have contained components considered to be analyte specific reagents (ASR's). ASR's have not been cleared or approved by the U.S.Food and Drug Administration. These assays were developed and their performance characteristics determined by the Department of Pathology at [facility]. The assays were performed with appropriate positive and negative controls which stained appropriately. 05/16/2023 2:13 PM EST [facility] at 1413 EST By the signature on this report, the individual or group listed as making the Final Interpretation/Diag nosis certifies that they have reviewed this case. 05/16/2023 2:13 PM EST [facility] Disclaimer One or more of the reagents used to perform assays on this specimen MAY have contained components considered to be analyte specific reagents (ASR's). ASR's have not been cleared or approved by the U.S. Food and Drug Administration. These assays were developed and their performance characteristics determined by the Department of Pathology at [facility]. The FDA does not require this test to go through premarket FDA review. This test is used for clinical purposes. It should not be regarded as investigational or for research. This laboratory is certified under the Clinical Laboratory Improvement Amendments (CLIA) as qualified to perform high complexity clinical laboratory testing. The assays were performed with appropriate positive and negative controls which stained appropriately. 05/16/2023 2:13 PM EST [facility] Tissue (BREAST CORE BIOPSY LEFT) 04/10/2023 7:20 AM EST 04/10/2023 7:21 AM EST [facility] PATHOLOGY ORDERABLES Final R esult [facility] [address] [id number] documented in this encounter Visit Diagnoses Not on filedocumented in this encounter
--- OUTSIDE RECORDS SUMMARY | 2025-02-03 10:56 | XMS_ITS | Encounter Summary ---
Author Organization [facility] Address [address], [address] [place] [address] Care Team Providers Care Folding Machine Setter Name Role Phone Alexia Raya MD Primary Care Provider [phone] Reason for Referral * Imaging (Routine) - Closed Specialty Diagnoses / Procedures Referred By Eran dove Referred To Contact Radiology Diagnoses Abnormal mammogram Malignant neoplasm of central portion of left breast in female, estrogen receptor positive (HCC) Procedures MRI GUIDED NEEDLE PLACEMENT Edwardo Velazquez DO [address] [address] Phone: tel: fax: Referral ID Status Reason Start Date Expiration Date Visits Re quested Visits Authorized [id number] Closed 05/23/2023 05/22/2024 1 1 Encounter Details Date Type Department Care Team (Latest Contact Info) Description 05/23/2023 Transcribe Orders [facility] Pre [address] [place] [address] Edwardo Velazquez DO [address] [address] Abnormal mammogram (Primary Dx); Malignant neoplasm of central portion of left breast in female, estrogen receptor positive (HCC) Social History Tobacco Use Types Packs/Day Years Used Date Smoking Tobacco: Never Assessed Comments Unknown Sex and Gender Information Value Date Recorded Sex Assigned at Not on file Legal Sex Female 7:41 PM EST Gender Identity Not on file Sexual Orientation Not on file documented as of this encounter Plan of Treatment Scheduled Orders Name Type Priority Associated Diagnoses Orde r Schedule MRI GUIDED NEEDLE PLACEMENT Imaging Routine Abnormal Mammogram Malignant Neoplasm Of Central Portion Of Left Breast In Female, Estrogen Receptor Positive (Hcc) Expected: 05/23/2023, Expires: 05/23/2024 documented as of this encounter Visit Diagnoses Diagnosis Abnormal mammogram- Primary Abnormal mammogram, unspecified Malignant neoplasm of central portion of left breast in female, estrogen receptor positive (HCC) documented in this encounter Care Teams Folding Machine Setter Relationship Specialty Start Date End Date Alexia Raya MD [address] [place] [address] PCP - General Family Medicine 05/25/23 documented as of this encounter
--- OUTSIDE RECORDS SUMMARY | 2025-02-03 10:56 | XMS_ITS | Encounter Summary ---
Author Organization [facility] Address [address] [facility] [place] [address] Care Team Providers Care Steel Roller Name Role Phone Alexia Raya MD Primary Care Provider [phone] Alexia Raya MD Primary Care Provider [phone] Encounter Details Date Type Department Care Team (Late st Contact Info) Description 08/02/2024 Abstract [facility] [address] [place] [address] Roger Bob DO [address] [place], [place] [phone] Social History Tobacco Use Types Packs/Day Years Used Date Smoking Tobacco: Former Cigarettes 1 15 Q uit: 2017 Smokeless Tobacco: Never Alcohol Use Standard Drinks/Week Comments Not Currently [...] documented as of this encounter Visit Diagnoses Not on filedocumented in this encounter Care Teams Steel Roller Relationship Specialty Start Date End Date Alexia Raya MD PCP - General Family Medicine 03/15/23 09/04/24 Alexia Raya MD [address] [place] [phone] PCP - General Family Medicine 09/05/24 documented as of this encounter
[2025-02-03 12:41] LABS: Alanine Aminotransferase 38 U/L (14-59); Albumin Globulin Ratio 1.1; Albumin Level 4.1 g/dL (3.4-5.0); Alkaline Phosphatase 100 U/L (46-116); Anion Gap 15.1; Aspartate Amino Transferase 24 U/L (15-37); Blood Urea Nitrogen 10.0 mg/dL (7.0-18.0); Calcium 9.7 mg/dL (8.5-10.1); Carbon Dioxide 25.9 mmol/L (21.0-32.0); Chloride 106 mmol/L (98-107); Cholesterol 133 mg/dL (<=200); Estimated GFR (African America >60 (>=60 mL/min/1.73m^2); Estimated GFR (Non-African Ame >60 (>=60 mL/min/1.73m^2); Globulin 3.8 g/dL; Glucose 134 mg/dL (74-106); HDL Cholesterol 43 mg/dL (40-60); Potassium 4.0 mmol/L (3.5-5.1); Sodium 143 mmol/L (136-145); Thyroid Stimulating Hormone 3.128 uIU/mL (0.358-3.740); Total Protein 7.9 g/dL (6.4-8.2); Triglycerides 247 mg/dL (<=150); VLDL CHOLESTEROL 49.4 mg/dL
== END 2025-02-03 10:52 | disposition home or self-care (01) ==
LOC: LAB 10:53
PROVIDERS: PCP Family Medicine; Visit Provider Family Medicine
DX: E78.5 Hyperlipidemia, unspecified (principal); E11.65 Type 2 diabetes mellitus with hyperglycemia; E03.9 Hypothyroidism, unspecified; N18.30 Chronic kidney disease, stage 3 unspecified
CPT/HCPCS: 36415; 80053; 80061; 82043; 82570; 83036; 84439; 84443

== ENCOUNTER 2025-02-11 10:59 | Outpatient (OUT) | payer MEDICARE, MEDICAID, SELFPAY ==
--- OUTSIDE RECORDS SUMMARY | 2025-02-11 11:04 | XMS_ITS | Encounter Summary ---
Author Organization [facility] Address [address], [address] [place] [address] Care Team Providers Care Tree Feller Operator Name Role Phone Alexia Raya MD Primary Care Provider [phone] Encounter Details Date Type Department Care Team (Latest Contact Info) Description 05/23/2023 Transcribe Orders [facility] [address] [place] [address] Edwardo Velazquez, [address] [address] Malignant neoplasm of central portion of left [...] breast documented in this encounter Care Teams Tree Feller Operator Relationship Specialty Start Date End Date Alexia Raya MD [address] [facility] [place] [address] PCP - General Family Medicine 05/25/23 documented as of this encounter
--- OUTSIDE RECORDS SUMMARY | 2025-02-11 11:04 | XMS_ITS | Encounter Summary ---
Author Organization [facility] Address [address] [facility] [place] [address] Care Team Providers Care Surveying Teacher Name Role Phone Alexia Raya MD Primary Care Provider [phone] Alexia Raya MD Primary Care Provider [phone] Encounter Details Date Type Department Care Team (Late st Contact Info) Description 08/02/2024 Abstract [facility] [address] [place] [address] Roger Bob DO [address] [place], [place] [phone] Social History Tobacco Use Types Packs/Day Years [...] on filedocumented in this encounter Care Teams Surveying Teacher Relationship Specialty Start Date End Date Alexia Raya MD PCP - General Family Medicine 03/15/23 09/04/24 Alexia Raya MD [address] [place] [phone] PCP - General Family Medicine 09/05/24 documented as of this encounter
--- OUTSIDE RECORDS SUMMARY | 2025-02-11 11:04 | XMS_ITS | Encounter Summary ---
Author Organization [facility] Address [address] [place] [address] Care Team Providers Care Security Nurse Name Role Phone Alexia Raya MD Primary Care Provider [phone] Alexia Raya MD Primary Care Provider [phone] Encounter Details Date Type Department Care Team (Late st Contact Info) Description 05/02/2023 External Result Encounter [facility] External Department Unsolicited Rafael Velazquez H, DO [address] [address] Social History Tobacco Use Types Packs/Day Years [...] 3:56 PM EST) 05/02/2023 3:56 PM EST [facility] - 05/03/2023 10:43 AM EST [facility] Main [address] [address] Electrocardiograph Report Signed Patient: Melony Laws MR#: [id number] : 1965 Acct:[id number] Age/Sex: 58 / F ADM Date: 05/02/23 [...] (183) on 05/03/2023 9:46:45 AM Referred By: RAQULE Electronically Signed By:MARYBETH IYER DO Transcribed By: MUS Signed By Marybeth Iyer DO 05/03 0946 Procedure Note Marybeth Iyer DO - 05/03/2023 [facility] Main [place] [address] [place] [address] Electrocardiograph Report Signed Patient: Melony LawsMR#: [id number] : 1965Acct:[id number] Age/Sex: 58 / FADM Date: 05/02/23 Loc: [...] Velazquez DO ECG ORDERABLES Final Res ult [address] [place] [address], documented in this encounter Visit Diagnoses Not on filedocumented in this encounter Care Teams Security Nurse Relationship Specialty Start Date End Date Alexia Raya MD PCP - General Family Medicine 03/15/23 09/04/24 Alexia Raya MD [address] [place] [address] PCP - General Family Medicine 09/05/24 documented as of this encounter
--- OUTSIDE RECORDS SUMMARY | 2025-02-11 11:04 | XMS_ITS | Patient Health Record ---
Author Organization [facility] Address [address] [address], [place] [address] Care Team Providers Care Continuous Miner Name Role Phone Sofi Yan Primary Care Provider Juliano Alvarez [phone] Allergies Allergen (clinical drug ingredient) Drug/Non Drug [...] AT BEDTIME Oral; Duration: 90 Days Active [place] Carbonate ER 450 MG Tablet Extended Release [...] use. 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 [facility] [address] [place] [address] 01/10/2025 Juliano Granger Onychomycosis B35.1 ; Right [...] Insured Coverage Start Date Coverage End Date [facility] [address] [place] [address] [phone] [id number] Melony Laws Self - patient is the insured Medicaid of [place] [address] [place] [address] [id number] Melony Laws Self - patient is the insured Medical (General) History Medical History History ICD Code Breast Cancer Diabetes High Cholesterol Thyroid Issues Slow Healing Problems Surgical History Surgery Date(Month/Year) Tubal Ligation 1984 Laproscopic Surgery 1997 Right and Left Cataract 2016 Left Retina 2019 Left Breast Lumpectomy 2023
--- OUTSIDE RECORDS SUMMARY | 2025-02-11 11:04 | XMS_ITS | Clinical Summary ---
Author Organization [facility] Address [address] [place] [address] Care Team Providers Care Mission Commander Name Role Phone Alexia Raya MD Primary Care Provider [phone] Allergies Active Allergy Reactions Criticality Noted Date [...] Description 11/28/2024 Refill [facility] [address] [place] [address] Monika Connor MA Osteopenia, unspecified location [...] Sandro Cintron M.D.08/01/2023 1:27 PM Dictation Location: [facility] Transcribed By: [facility] 08/01/23 1327 Dictated By: Sandro Cintron DO 08/01/23 1326 Signed By: <Electronically signed by Sandro Cintron DO in OV> 08/01/23 1327 Narrative 08/01/2023 1:30 [place] [address] Mammography Report Signed Patient: Melony Laws MR#: [id number] : 1965 Acct:[id number] Age/Sex: 58 / F ADM Date: 08/01/23 Loc: [place] Room: Type: [facility] Attending [...] Procedure Note Radiology, Radiologist, MD - 08/01/2023 [place] [address] Mammography Report Signed Patient: Melony LawsMR#: [id number] : 1965Acct:[id number] Age/Sex: 58 / FADM Date: 08/01/23 Loc: [place] Room:Type: [facility] Attending Dr: [...] Sandro Cintron M.D.08/01/2023 1:27 PM Dictation Location: [place] [address] Transcribed By: [facility] 08/01/23 1327 Dictated By: Sandro Cintron [...] MEDICAID [place] MEDIC[place]VANTAGE Care Teams Mission Commander Relationship Specialty Start Date End Date Alexia Raya MD [address] [facility] [place] [address] PCP - General Family Medicine 09/05/24
--- OUTSIDE RECORDS SUMMARY | 2025-02-11 11:04 | XMS_ITS | Encounter Summary ---
Author Organization [facility] Address [address], [address] [place] [address] Care Team Providers Care Drill Operator Name Role Phone Alexia Raya MD Primary Care Provider [phone] Reason for Referral * Imaging (Routine) - Closed Specialty Diagnoses / Procedures Referred By Eran dove Referred To Contact Radiology Diagnoses Abnormal mammogram Malignant neoplasm of central portion of left breast in female, estrogen receptor positive (HCC) Procedures MRI GUIDED NEEDLE PLACEMENT Edwardo Velazquez DO [address] [address] Phone: tel: fax: Referral ID Status Reason Start Date Expiration Date Visits Re quested Visits Authorized [id number] Closed 05/23/2023 05/22/2024 1 1 Encounter Details Date Type Department Care Team (Latest Contact Info) Description 05/23/2023 Transcribe Orders [facility] Pre [address] [place] [address] Edwardo Velazquez DO [address] [address] Abnormal mammogram (Primary Dx); Malignant [...] (HCC) documented in this encounter Care Teams Drill Operator Relationship Specialty Start Date End Date Alexia Raya MD [address] [place] [address] PCP - General Family Medicine 05/25/23 documented as of this encounter
--- OUTSIDE RECORDS SUMMARY | 2025-02-11 11:04 | XMS_ITS | Encounter Summary ---
Author Organization [facility] Address [address] [facility] [place] [address] Care Team Providers Care Senior Analyst Name Role Phone Alexia Raya MD Primary Care Provider [phone] Alexia Raya MD Primary Care Provider [phone] Encounter Details Date Type Department Care Team (Late st Contact Info) Description 08/01/2023 External Result Encounter [facility] External Department Unsolicited Rafael Velazquez H, DO [address] [facility] [address] [place] [address] Social History Tobacco Use Types Packs/Day Years [...] Harshal Byrd Jr.BeatrizOBeatriz08/01/2023 1:51 PM Dictation Location: [facility]08 Transcribed By: JONA 08/01/23 1351 Dictated By: Mateusz Jamison Jr, DO 08/01/23 1350 Signed By: <Electronically signed by Matuesz Jamison Jr, DO in OV> 08/01/23 1351 Narrative 08/01/2023 1:53 PM EDT [place] [id number] Nuclear Medicine Report Signed Patient: Melony Laws MR#: [id number] : 1965 Acct:[id number] Age/Sex: 58 / F ADM Date: 08/01/23 Loc: [place] Room: Type: [facility] Attending Dr: Rafael Velazquez DO Copies to: DO Mateusz Alexandre Jr, DO Ordering Provider: Rafael Velazquez DO Date of Service: 08/01/23 NM/NM sentinel node w imaging: Left Breast Cancer Nuclear medicine [place] node lymphoscintigraphy. Reason for exam: Left breast cancer. TECHNIQUE: 0.498 mCi of technetium 99m sulfur colloid was injected into the left breast and delayed images were obtained. FINDINGS: Delayed images demonstrate migration of the radiotracer to the left axilla. NM/NM sentinel node w imaging Procedure Note Radiology, Radiologist, MD - 08/01/[address] [address] Nuclear Medicine Report Signed Patient: Melony LawsMR#: [id number] : 1965Acct:[id number] Age/Sex: 58 / FADM Date: 08/01/23 Loc: [place] Room:Type: [facility] Attending Dr: Rafael Velazquez DO Copies to: DO Mateusz Alexandre Jr, DO Ordering Provider: Rafael Velazquez DO Date of Service: 08/01/23 NM/NM sentinel node w imaging: Left BreastCancer Nuclear medicine [place] node lymphoscintigraphy. Reason for exam: Left breast cancer. TECHNIQUE: 0.498 mCi of technetium 99m sulfur colloid was injected intothe left breast and delayed images were obtained. FINDINGS: Delayed images demonstrate migration of the radiotracer to theleft axilla. NM/NM sentinel node w imaging IMPRESSION: Migration of radiotracer seen to the left axilla. Impression dictated by: Mateusz Jamison Jr., D.OBeatriz08/01/2023 1:51 PM Dictation Location: [place] [address] Transcribed By: [facility] 08/01/23 1351 Dictated By: Mateusz Jamison Jr, DO 08/01/23 1350 Signed By: <Electronically signed by Mateusz Jamison Jr DO inOV> 08/01/23 1351 Rafael Velazquez DO IMG NM PROCEDURES Final R esult documented in this encounter Visit Diagnoses Not on filedocumented in this encounter Care Teams Senior Analyst Relationship Specialty Start Date End Date Alexia Raya MD PCP - General Family Medicine 03/15/23 09/04/24 Alexia Raya MD [address] [place] [address] PCP - General Family Medicine 09/05/24 documented as of this encounter
--- OUTSIDE RECORDS SUMMARY | 2025-02-11 11:04 | XMS_ITS | Encounter Summary ---
Author Organization [facility] Address [address] [facility] [place] [place] [address] Care Team Providers Care Guidance Adviser Name Role Phone Alexia Raya MD Primary Care Provider [phone] Alexia Raya MD Primary Care Provider [phone] Encounter Details Date Type Department Care Team (Late st Contact Info) Description 07/12/2023 External Result Encounter [facility] External Department Unsolicited Rafael Velazquez H, DO [address] [facility] [address] [place] [address] Social History Tobacco Use Types Packs/Day Years [...] Althea Tobar M.D.07/12/2023 2:30 PM Dictation Location: [facility] Tech: Sheyla William Transcribed By: JONA 07/12/23 1430 Dictated By: Althea Tobar MD 07/12/23 1418 Signed By: <Electronically signed by MD Althea Tobar in OV> 07/12/23 1430 Narrative 07/12/2023 2:32 PM [facility] [place] [address] Ultrasound Report Signed Patient: Melony Laws MR#: [id number] : 1965 Acct:[id number] Age/Sex: 58 / F ADM Date: 07/12/23 Loc: [facility] Room: Type: [facility] Attending Dr: Rafael Velazquez DO Ordering [...] limited Procedure Note Radiology, Radiologist, - 07/13/2023 [facility] Main [place] [address] [place] [address] Ultrasound Report Signed Patient: Melony LawsMR#: [id number] : 1965Acct:[id number] Age/Sex: 58 / FADM Date: 07/12/23 Loc: [facility] Room:Type: [facility] Attending Dr: Rafael Velazquez DO Ordering [...] Althea Tobar M.D.07/12/2023 2:30 PM Dictation Location: [facility] Tech: Sheyla William Transcribed By: JONA 07/12/23 1430 Dictated By: Althea Tobar MD 07/12/23 1418 Signed By: <Electronically signed by MD Althea Tobar in OV> 07/12/23 1430 us Rafael Velazquez DO IMG US PROCEDURES Final R esult documented in this encounter Visit Diagnoses Not on filedocumented in this encounter Care Teams Guidance Adviser Relationship Specialty Start Date End Date Alexia Raya MD PCP - General Family Medicine 03/15/23 09/04/24 Alexia Raya MD [address] [place] [phone] PCP - General Family Medicine 09/05/24 documented as of this encounter
--- OUTSIDE RECORDS SUMMARY | 2025-02-11 11:04 | XMS_ITS | Encounter Summary ---
Author Organization [facility] Address [address] [place] [address] Care Team Providers Care Square Cutter Name Role Phone Alexia Raya MD Primary Care Provider [phone] Alexia Raya MD Primary Care Provider [phone] Reason for Visit * Reason Comments Med Refill Encounter Details Date Type Department Care Team (Late st Contact Info) Description 10/30/2023 Refill [facility] [address] [facility] [address] Chel Mahoney PA [address] [place], [facility] Osteopenia, unspecified location Social History Tobacco [...] location documented in this encounter Care Teams Square Cutter Relationship Specialty Start Date End Date Alexia Raya MD PCP - General Family Medicine 03/15/23 09/04/24 Alexia Raya MD [address] [place] [phone] PCP - General Family Medicine 09/05/24 documented as of this encounter
--- OUTSIDE RECORDS SUMMARY | 2025-02-11 11:04 | XMS_ITS | Encounter Summary ---
Author Organization [facility] Address [address], [address] [place] [address] Care Team Providers Care Hot Saw Operator Name Role Phone Alexia Raya MD Primary Care Provider [phone] Reason for Referral * Imaging (Routine) - Closed Specialty Diagnoses / Procedures Referred By Eran t Referred To Contact Radiology Diagnoses Malignant neoplasm of central portion of left breast in female, estrogen receptor positive (HCC) Other abnormal and inconclusive findings on diagnostic imaging of breast Procedures MRI BREAST BILATERAL W WO CONTRAST Edwardo Velazquez DO [address] [address] Phone: tel: fax: Referral ID Status Reason Start Date Expiration Date Visits Re quested Visits Authorized [id number] Closed 06/29/2023 07/29/2023 1 1 Encounter Details Date Type Department Care Team (Latest Contact Info) Description 05/23/2023 Transcribe Orders [facility] Pre [address] [place] [address] Edwardo Velazquez DO [address] [address] Malignant neoplasm of central portion [...] or upper abdomen. Edwardo Velazquez DO [facility] [place] MRI ORDERABLES Final R esult documented in [...] breast documented in this encounter Care Teams Hot Saw Operator Relationship Specialty Start Date End Date Alexia Raya MD [address] [place] [phone] PCP - General Family Medicine 05/25/23 documented as of this encounter
--- OUTSIDE RECORDS SUMMARY | 2025-02-11 11:04 | XMS_ITS | Encounter Summary ---
Author Organization [facility] Address [address] [facility] [place] [address] Care Team Providers Care Medical Sociologist Name Role Phone Alexia Raya MD Primary Care Provider [phone] Alexia Raya MD Primary Care Provider [phone] Encounter Details Date Type Department Care Team (Late st Contact Info) Description 05/16/2023 External Result Encounter [facility] External Department Unsolicited Rafael Velazquez H, DO [address] [facility] [address] [place] [address] Social History Tobacco Use Types Packs/Day Years [...] Jamison Jr., D.O.05/16/2023 12:03 PM Dictation Location: [facility] Transcribed By: [facility] 05/16/23 1203 Dictated By: Mateusz Jamison Jr, DO 05/16/23 1046 Signed By: <Electronically signed by Mateusz Jamison Jr, DO in OV> 05/16/23 1203 Narrative 05/16/2023 10:49 PM [facility] Main [place] [address] [place] [address] Mammography Report Signed with Addenda Patient: Melony Laws MR#: [id number] : 1965 Acct:[id number] Age/Sex: 58 / F ADM Date: 04/28/23 Loc: [place] Room: Type: PRE [facility] Attending Dr: Rafael Velazquez DO Copies to: DO Alexia Alexandre MD Ordering Provider: Rafael Velazquez DO Date of Service: 05/16/23 US/US breast LT limited: ABN. MAMM ([id number]) US/US extremity nonvascular: LEFT AXILLA ([id number]) US/US breast ndl core biopsy LT: ABN. MAMM ([id number]) MM/MM post biopsy LT w/CAD: POST U/S BX WITH CLIP ADDENDUM 1 Addendum for pathology: Ultrasound-guided biopsy 6:00 position 2 cm from the nipple: Focal fibroadenomatoid change. No in situ or invasive carcinoma identified. Finding is benign and concordant with imaging. Surgical/oncologic management of the patient's known cancer is recommended. Impression dictated by: Mateusz Jamison Jr., D.O.05/18/2023 9:20 AM Dictation Location: [facility]-12 Addendum Dictated By: Mateusz Jamison Jr, [...] seed placement. The patient's outside images from [facility] were reviewed and discussed with the [...] alternatives to an ultrasound guided vacuum-assisted [facility] system core biopsy procedure were discussed with the patient and written informed consent was obtained. Ultrasonographic survey of the 6:00 position of the left breast 2 cm from the nipple was performed by anesthesiology technologist . The previously identified mass was [...] breast mass were performed using a 12-gauge [employer] vacuum-assisted core biopsy needle under ultrasound guidance. [...] Procedure Note Radiology, Radiologist, MD - 05/18/2023 [facility] Main [place] [address] [place] [address] Mammography Report Signed with Addenda Patient: Melony LawsMR#: [id number] : 1965Acct:[id number] Age/Sex: 58 / FADM Date: 04/28/23 Loc: [place] Room:Type: [facility] Attending Dr: Rafael Velazquez DO Copies to: DO Alexia Alexandre MD Ordering Provider: Rafael Velazquez DO Date of Service: 05/16/23 US/US breast LT limited: ABN. MAMM ([id number]) US/US extremity nonvascular: LEFT AXILLA ([id number]) US/US breast ndl core biopsy LT: ABN. MAMM ([id number]) MM/MM post biopsy LT w/CAD: POST U/S BX WITH CLIP ADDENDUM 1 Addendum for pathology: Ultrasound-guided biopsy 6:00 position 2 cm from the nipple: Focalfibroadenomatoid change. No in situ or invasive carcinoma identified. Finding is benign and concordant with imaging. Surgical/oncologicmanagement of the patient's known cancer is recommended. Impression dictated by: Mateusz Jamison Jr., D.OBeatriz05/18/2023 9:20 AM Dictation Location: [place] [address] Addendum Dictated By: Mateusz Jamison Jr, DO Addendum Signed By: <Electronically signed by Jr Meyer DO in OV> 05/18/[address] Addendum Cosigned By: DD/ /31/918 TD/TT: 05/18/2303/31/920 ULTRASOUND GUIDED VACUUM-ASSISTED HOLOGIC ATEC SYSTEM CORE BIOPSIES OF THELEFT BREAST: CLINICAL DATA: History of stereotactically biopsied breast cancer withinthe left breast. PROCEDURE: The patient was initially scheduled for a radioactive seed placement. Thepatient's outside images from [facility] were reviewed and discussed with the [...] 2 cm fromthe nipple was performed by anesthesiology technologist . The previously identified mass was [...] Jamison Jr., D.O.05/16/2023 12:03 PM Dictation Location: [facility] Transcribed By: [facility] 05/16/23 1203 Dictated By: Mateusz Jamison Jr, DO 05/16/23 1046 Signed By: <Electronically signed by Mateusz Jamison Jr, DO inOV> 05/16/23 1203 us Rafael Velazquez DO IM US PROCEDURES Edited Result - Final documented in this encounter Visit Diagnoses Not on filedocumented in this encounter Care Teams Medical Sociologist Relationship Specialty Start Date End Date Alexia Raya MD PCP - General Family Medicine 03/15/23 09/04/24 Alexia Raya MD [address] [place] [phone] PCP - General Family Medicine 09/05/24 documented as of this encounter
--- OUTSIDE RECORDS SUMMARY | 2025-02-11 11:04 | XMS_ITS | Encounter Summary ---
Author Organization [facility] Address [address] [facility] [place] [address] Care Team Providers Care Yoga Instructor Name Role Phone Alexia Raya MD Primary Care Provider [phone] Alexia Raya MD Primary Care Provider [phone] Encounter Details Date Type Department Care Team (Late st Contact Info) Description 08/01/2023 External Result Encounter [facility] External Department Unsolicited Rafael Velazquez H, DO [address] [facility] [address] [place] [address] Social History Tobacco Use Types Packs/Day Years [...] 1:27 PM Dictation Location: [facility]--12 Transcribed By: [facility] 08/01/23 1327 Dictated By: Sandro Cintron DO 08/01/23 1326 Signed By: <Electronically signed by Sandro Cintron DO in OV> 08/01/23 1327 Narrative 08/01/2023 1:30 PM EDT [place] [id number] Mammography Report Signed Patient: Melony Laws MR#: [id number] : 1965 Acct:[id number] Age/Sex: 58 / F ADM Date: 08/01/23 Loc: [place] Room: Type: [facility] Attending Dr: Rafael Velazquez DO Copies to: DO Alexia Alexandre MD Ordering Provider: Rafael Velazquez DO Date of Service: 08/01/23 MM/MM surgical specimen LT: LEFT BREAST SPECIMEN IN OR WITH RADIOACTIVE SEED Fluoroscopic assessment of left lumpectomy surgical specimen HISTORY: Evaluate left lumpectomy 1 Image The radiation seed identified within the specimen. MM/MM surgical specimen LT Procedure Note Radiology, Radiologist, - 08/01/[address] [address] Mammography Report Signed Patient: Melony LawsMR#: [id number] : 1965Acct:[id number] Age/Sex: 58 / FADM Date: 08/01/23 Loc: [place] Room:Type: [facility] Attending Dr: Rafael Velazquez DO Copies to: [...] on filedocumented in this encounter Care Teams Yoga Instructor Relationship Specialty Start Date End Date Alexia Raya MD PCP - General Family Medicine 03/15/23 09/04/24 Alexia Raya MD [address] [place] [phone] PCP - General Family Medicine 09/05/24 documented as of this encounter
--- OUTSIDE RECORDS SUMMARY | 2025-02-11 11:04 | XMS_ITS | Clinical Summary ---
Author Organization [facility] Address [address] [place] [address] Phone Care Team Providers Care Buckle Sorter Name Role Phone Unavailable Primary Care Provider [...] age to complete this topic Insurance [employer] CHOICE MEDICAID [employer] CHOICE MEDICAID
--- OUTSIDE RECORDS SUMMARY | 2025-02-11 11:04 | XMS_ITS | Clinical Summary ---
Author Organization [facility] Address [address], [address] [place] [address] Care Team Providers Care Biodiesel Processing Technician Name Role Phone Alexia Raya MD Primary Care Provider [phone] Social History Tobacco Use Types Packs/Day Years [...] OR LIPID PANEL WITH LDL. Performed @ [facility], [address] [place] [address] us Luz Griffin MD CHEMISTRY ORDERABLES Final Res ult [facility] from Last 3 Months or Most Recently Relevant to Health Maintenance Insurance [facility] MEDICARE MEDICAID [place] Care Teams Biodiesel Processing Technician Relationship Specialty Start Date End Date Alexia Raya MD [address] [facility] [place] [phone] PCP - General Family Medicine 05/25/23
--- OUTSIDE RECORDS SUMMARY | 2025-02-11 11:04 | XMS_ITS | Encounter Summary ---
Author Organization [facility] Address [address] [place] [address] Phone Care Team Providers Care Payroll Accounting Specialist Name Role Phone Unavailable Primary Care Provider Unavailabl e Encounter Details Date Type Department Care Team (Late st Contact Info) Description 04/10/2023 Lab Requisition [facility] [address] [place] [phone] Maryana Smith [address] [place] [address] Social History Tobacco Use Types Packs/Day Years [...] AM EST) Case Report Surgical Pathology Case: [id number] Authorizing Provider: Maryana Smith Collected: 04/10/2023719 Ordering Location: [facility] Received: 04/10/2023720 Center Pathologist: Oleg Gordon DO Specimen: BREAST CORE BIOPSY LEFT, [id number] 05/16/2023 2:13 PM EST [facility] FINAL DIAGNOSIS HER2 DUAL XOCHITL FOR DETECTION OF HER2 GENE AMPLIFICATION HER2 Dual XOCHITL DNA Probe Cocktail Assay from [employer] ([place]) Results are expressed as the averaged ratio HER2/chromosome 17 signals in 20 nuclei. Source of Specimen: Left breast, core biopsy Paraffin Block: [id number] ([facility] case [id number]) Duration of fixation: unless otherwise noted, [...] et al, N Engl J Med 353: 5523-3344; marissa Conn al, N Engl J Med 353: 5052-0175, 2005; and ANNIE trial study, presented as late breaking abstract at 42nd Annual Meeting of the [place] [employer] Oncology, [place], [place], J Clin Oncol 242005) Anne Marie et al J. Clin Oncol; Recommendations for human epidermal growth factor receptor 2 testing in breast cancer: [place] Society of Clinical Oncology/College of [place] Pathologists clinical practice guideline update 2018. REFERENCE RANGES: Ratio <2.0 and average HER2 signal <4.0: Negative (non-amplified) Ratio >=2.0 and average HER2 signal >=4.0: Positive (amplified) Control results: External (amplified, equivocal, non-amplified) and internal controls perform as expected. INFORM HER2 Dual XOCHITL DNA Probe Cocktail Assay from [employer] ([employer]) is intended to determine HER2 gene status by enumeration of the ratio of the HER2 gene to Chromosome 17. The HER2 and Chromosome 17 probes are detected using two color chromogenic in situ hybridization (XOCHITL) in formalin-fixed, paraffin-embedded human breast cancer and gastroesophageal tissue specimens following staining on [employer] ULTRA automated slide stainer (using [employer] software), by light microscopy. The INFORM HER2 [...] determined by the Department of Pathology at [facility]. The assays were performed with appropriate positive and negative controls which stained appropriately. 05/16/2023 2:13 PM EST [facility] at 1413 EST By the signature on this report, the individual or group listed as making the Final Interpretation/Diag nosis certifies that they have reviewed this case. 05/16/2023 2:13 PM EST [facility] Disclaimer One or more of the reagents used to perform assays on this specimen MAY have contained components considered to be analyte specific reagents (ASR's). ASR's have not been cleared or approved by the U.S. Food and Drug Administration. These assays were developed and their performance characteristics determined by the Department of Pathology at [facility]. The FDA does not require this test [...] which stained appropriately. 05/16/2023 2:13 PM EST [facility] Tissue (BREAST CORE BIOPSY LEFT) 04/10/2023 7:20 AM EST 04/10/2023 7:21 AM EST [facility] PATHOLOGY ORDERABLES Final R esult [facility] [address] [place] [id number] documented in this encounter Visit Diagnoses Not on filedocumented in this encounter
--- OUTSIDE RECORDS SUMMARY | 2025-02-11 11:04 | XMS_ITS | Encounter Summary ---
Author Organization [facility] Address [address] [facility] [address] [place] [place] [address] Care Team Providers Care Curriculum Coach Name Role Phone Alexia Raya MD Primary Care Provider [phone] Alexia Raya MD Primary Care Provider [phone] Encounter Details Date Type Department Care Team (Late st Contact Info) Description 07/31/2023 External Result Encounter [facility] External Department Unsolicited Rafael Velazquez H, DO [address] [facility] [address] [place] [address] Social History Tobacco Use Types Packs/Day Years [...] 07/31/23 1253 Narrative 07/31/2023 12:56 PM EDT [facility] Main [place] [id number] Mammography Report Signed Patient: Melony Laws MR#: [id number] : 1965 Acct:[id number] Age/Sex: 58 / F ADM Date: 07/24/23 Loc: [place] Room: Type: [facility] [place]ending Dr: Rafael Velazquez [...] was placed in mediolateral compression and a transmission operator view of the inferior left breast [...] LT Procedure Note Radiology, Radiologist, - 07/31/2023 [facility] Main [place] [id number] Mammography Report Signed Patient: Melony LawsMR#: [id number] : 1965Acct:[id number] Age/Sex: 58 / FADM Date: 07/24/23 Loc: [place] Room:Type: [facility] [place]ending Dr: Rafael Velazquez [...] Patient was placed inmediolateral compression and a transmission operator view of the inferior left breast [...] Althea Tobar M.D.07/31/2023 12:53 PM Dictation Location: [facility] Transcribed By: [facility] 07/31/23 1253 Dictated By: Althea Tobar MD 07/31/23 1248 Signed By: <Electronically signed by MD Althea Tobar in OV> 07/31/23 1253 us Rafael Velazquez DO IMG XR PROCEDURES Final R esult documented in this encounter Visit Diagnoses Not on filedocumented in this encounter Care Teams Curriculum Coach Relationship Specialty Start Date End Date Alexia Raya MD PCP - General Family Medicine 03/15/23 09/04/24 Alexia Raya MD [address] [place] [phone] PCP - General Family Medicine 09/05/24 documented as of this encounter
--- OUTSIDE RECORDS SUMMARY | 2025-02-11 11:04 | XMS_ITS | Encounter Summary ---
Author Organization [facility] Address [address] [place] [address] Care Team Providers Care Non Acoustic Operator Name Role Phone Alexia Raya MD Primary Care Provider [phone] Alexia Raya MD Primary Care Provider [phone] Encounter Details Date Type Department Care Team (Late st Contact Info) Description 06/30/2023 Clinisync Result Encounter [facility] External Department Unsolicited Rafael Velazquez, DO [address] [place] [address] Social History Tobacco Use Types Packs/Day Years [...] on filedocumented in this encounter Care Teams Non Acoustic Operator Relationship Specialty Start Date End Date Alexia Raya MD PCP - General Family Medicine 03/15/23 09/04/24 Alexia Raya MD [address] [place] [phone] PCP - General Family Medicine 09/05/24 documented as of this encounter
--- OUTSIDE RECORDS SUMMARY | 2025-02-11 11:25 | XMS_ITS | CCD ---
Author Organization [facility] Care Team Providers Care Clinical Auditor Name Role Phone MD Susan Ayala Attending Provider BELENK ., DR FITCH Admitting Unavailabl e KARASIK [...] Unavailable AYALA, DR SUSAN Bryant Consulting Unavailable AYALA, DR SUSAN Bryant Primary Care Unavailable ANIA BLANCA Attending Unavailable MIRTA, ANIA Consulting Unavailable ANIA BLANCA Admitting Unavailable JAMIE, DR SUSAN Bryant Primary Care Unavailable AYALA, DR SUSAN Bryant Admitting Unavailable AYALA, DR SUSAN Bryant Attending Unavailable AYALA, DR SUSAN Bryant Consulting Unavailable AYALA, DR SUSAN Bryant Primary Care Unavailable ANIA BLANCA Attending Unavailable MIRTA, ANIA Consulting Unavailable ANIA BLANCA Admitting Unavailable JAMIE, DR SUSAN Bryant Primary Care Unavailable Susan Ayala Unavailable DO Geraldo García Attending Provider MD Susan Ayala Primary Care Provider ADAMA GARCÍA Referring Unavailable SUSAN AYALA Primary Care Unavailable Itzkowitz, DO Geraldo Attending Provider [phone] MD Susan Ayala Primary Care Provider Itzkowitz, DO Geraldo Attending Provider [phone] MD Susan Ayala Primary Care Provider MD Gavin Plaza Attending Provider MD Gavin Plaza Attending Provider MD Susan Ayala Primary Care Provider Itzkowitz, DO Geraldo Attending Provider MD Gavin Plaza Attending Provider MD Christine Velazquez Attending Provider Itzkoyue, DO Geraldo Referring Provider [phone] MD Susan Ayala Primary Care Provider Itzkowitz, DO Geraldo Attending Provider MD Christine Velazquez Attending Provider Itzkoyue, DO Geraldo Referring Provider [phone] MD Gavin Plaza Attending Provider MD Susan Ayala Primary Care Provider Marcus, DO Geraldo Referring Provider [phone] MD Gaurav Jaime Attending Provider DO Gini Lisa L Attending Provider MD Susan Ayala Primary Care Provider MD Gavin Plaza Attending Provider MD Christine Velazquez Attending Provider Marcus, DO Geraldo Referring Provider [phone] MD Christine Velazquez Attending Provider Itzkowitz, DO Geraldo Referring Provider MD Gavin Plaza Attending Provider MD Christine Velazquez Attending Provider [phone] Itzkowidean, DO Geraldo Referring Provider Susan Ayala MD Primary Care Provider [phone] Susan Ayala MD Primary Care Provider Caroline SEPULVEDA, Christine Amaya Attending Provider Itzkoyue DO, Geraldo Referring Provider Mela SEPULVEDA, Gavin Attending Provider Susan Ayala MD Primary Care Provider Caroline SEPULVEDA, Christine Amaya Attending Provider Itzkowidean DO, Geraldo Referring Provider [phone] Gavin Plaza MD Attending Provider [phone] Gavin Plaza MD Attending Provider Susan Ayala MD Primary Care Provider Christine Velazquez MD Attending Provider Itzkoyue DO, Geraldo Referring Provider Susan Ayala MD Primary Care Provider Christine Velazquez MD Attending Provider Itzkoyue DO, Geraldo Referring Provider Gavin Plaza MD Attending Provider [phone] Susan Ayala MD Primary Care Provider GILSON KENYON Attending Unavailable GILSON KENYON Attending Unavailable GILSON KENYON Attending Unavailable GERALDO GARCÍA Attending Unavailable GILSON KENYON Attending Unavailable GILSON KENYON Attending Unavailable CHRISTY QUICK Attending Unavailable ANGELICA HAWKINS Attending Unavailable Lisa Rubalcava Admitting Unavailable Lisa Rubalcava Attending Unavailable Susan Ayala Primary Care Unavailable Gavin Plaza Admitting Unavailab Gavni Leyva Attending UnavailChristine [place] Admitting UnavailChristine Medel Attending Unavailvelia e Geraldo García Referring Unavailable Susan Ayala Primary Care Unavailable Susan Ayala MD Primary Care Provider Susan Ayala MD Attending Provider Allergies Allergy Classification Reported Allergen(s) Allergy Type Date of Onset Reaction(s) Facility Cephalosporins (antibiotic) (1 source) Cephalosporins (Antibiotic) Drug Allergy 10-11-19 24 Unknown Reaction [facility] Penicillins (antibiotic) (1 source) Penicillins Drug Allergy 10-11-19 24 Swelling of Lip/Tongue/Thro at [facility] (9 sources) cefdinir Drug Allergy Unknown [facility] Other (15 sources) Penicillin Drug Allergy halucination and swallowing dificulty [facility] Other (20 sources) Penicillins Drug allergy (disorder) 05-08-18 76 Swelling of Lip/Tongue/Thro at [facility] (10 sources) Medicinal cephalosporin and acting as antibacterial agent (FN) Drug allergy Unknown [facility] Other (10 sources) Ceftin *CEPHALOSPORINS* Propensity to adverse reactions Unknown [facility] Other (20 sources) Cephalosporins (Antibiotic); Translations: [Cephalosporins] Allergy to substance 07-19-19 24 Unknown Reaction [facility] (15 sources) Penicillins Drug Allergy 03-09-20 23 Other [facility] (1 source) Penicillins Drug allergy (disorder) 08-15-19 [facility] Repository Medications Current Medications Medication Drug Class(es) Dates Sig (Normalized) Sig (Original) alendronic acid 70 mg oral tablet (20 sources) Bisphosphonate Start: 09-21-2023 take 1 tablet by mouth every week Alendronate 70 mg tablet Active 70 MG PO every week September 21, 2023 12:00am Complies with drug therapy Start: 05-02-2023 End: 08-11-2023 take 1 tablet [...] PO Every morning May 02, 2023 1:00am Complies with drug therapy atorvastatin 40 mg oral tablet (8 sources) HMG-CoA Reductase Inhibitor take 1 tablet by mouth every twenty-four hours Atorvastatin Calcium 40 MG 1 tablet Orally Once a day for 90 days Active take 1 tablet by missy th every twenty-four hours Atorvastatin Calcium 20 MG 1 tablet Oral ly Once a day for 90 days Active azelastine hydrochloride 0.206 mg/actuat metered dose nasal spray (2 sources) Histamine-1 Receptor Antagonist Start: 03-25-2024 End: 04-22-2024 take 1 spray(s) nasal route once daily Azelastine (Astepro Allergy) 205.5 mcg (0.15 %) spray,non-aerosol Active 2 SPRAY INTRANASAL Daily April 22, 2024 12:38pm administer into each nostril Complies with drug therapy Azelastine (Astepro Allergy) 205.5 mcg (0.15 %) spray,non-aerosol (13 sources) Start: 04-22-2024 take 1 spray(s) nasal [...] each nostril azithromycin 250 mg oral tablet (8 sources) Macrolide Antimicrobial Start: 09-05-2024 End: 09-10-2024 take 1 tablet by mouth once daily azithromycin (Zithromax Z-Gumaro) 250 MG tablet Indications: Onychocryptosis Take 1 tablet (250 mg) by mouth Daily for 5 days Use as directed 6 tablet 09/05/2024 09/10/2024 Active Start: 03-10-2023 Azithromycin 2 50 MG as directed Orally 2 tabs po [...] PO Twice daily November 20, 2023 12:00am Complies with drug therapy Start: 07-10-2023 End: 07-11-2023 take 1 tablet by mouth once daily Buspirone 5 mg tablet Discontinued 5 MG PO Daily July 10, 2023 1:00am July 11, 2023 3:36pm take 1 tablet by missy th every twenty-four hours busPIRone HCl 5 MG 1 tablet once a day Active calcium carbonate 1250 mg chewable tablet (13 sources) Start: 02-15-2024 take 1 tablet by mouth once daily Calcium Carbonate (Calcium 500) 500 mg calcium (1,250 mg) tablet,chewable Active 500 MG PO Daily February 15, 2024 12:00am Complies with drug therapy cholecalciferol 0.025 mg oral capsule (20 sources) Vitamin D Start: 03-16-2024 take 1 capsule by mouth once daily Cholecalciferol (Vitamin D3) 25 mcg (1,000 unit) capsule Active 50 MCG PO Daily March 16, 2024 10:17am Complies with drug therapy Start: 02-15-2024 End: 03-16-2024 take 1 capsule by mouth once daily Cholecalciferol (Vitamin D3) 25 mcg (1,000 unit) capsule Discontinued 25 MCG PO Daily February 15, 2024 12:00am March 16, 2024 10:18am ciprofloxacin 3 mg/ml ophthalmic solution (4 sources) Quinolone Antimicrobial Start: 06-11-2024 Ciprofloxacin Hcl 0.3 % drops Active 0 OPHTHALMIC .COMPLEX 5 June 11, 2024 1:00am put 1-2 drps in affected eye(s) every 2hr up to 8 times/day x2days; then 4 times/day x5days Eye-Both Complies with drug therapy doxycycline monohydrate 100 mg oral tablet (12 sources) Tetracycline-class Drug Start: 07-22-2024 take 1 tablet by mouth twice daily Doxycycline Monohydrate 100 mg tablet Active 100 MG PO Twice daily 18 11July 22, 2024 12:00am Complies with drug therapy Start: 03-16-2024 End: 05-17-2024 take 1 capsule by mouth twice daily Doxycycline Monohydrate 100 mg capsule Discontinued 100 MG PO Twice daily 18 11March 16, 2024 1:00am May 17, 2024 12:20pm gabapentin 300 mg oral capsule (19 sources) Anti-epileptic Agent Start: 09-20-2024 End: 01-13-2025 take 1 capsule by mouth at bedtime Gabapentin 300 mg capsule Active 0 .ROUTE .COMPLEX 60 January 13, 2025 9:04am TAKE 1 CAPSULE BY MOUTH AT BEDTIME Complies with drug therapy Start: 05-23-2024 End: 09-20-2024 take 1 capsule by mouth once daily at bedtime Gabapentin 300 mg capsule Discontinued 300 MG PO Daily at bedtime May 23, 2024 1:00am September 20, 2024 3:52pm Start: 02-21-2024 End: 03-16-2024 take 1 capsule by mouth once daily at bedtime Gabapentin (Neurontin) 300 mg capsule Discontinued 300 MG PO Daily at bedtime February 21, 2024 12:00am March 16, 2024 10:17am levothyroxine sodium 0.05 mg oral tablet (20 sources) l-Thyroxine Start: 07-24-2024 End: 01-08-2025 take 1 tablet by mouth once daily in the morning Levothyroxine 50 mcg tablet Active 0 .ROUTE .COMPLEX January 08, 2025 8:44am TAKE 1 TABLET BY MOUTH EVERY DAY IN THE MORNING ON EMPTY STOMACH FOR 90 DAYS Complies with drug therapy Start: 08-08-2023 End: 07-24-2024 take 1 tablet by mouth once daily in the morning Levothyroxine 75 mcg tablet Discontinued 0 .ROUTE .COMPLEX February 19, 2024 10:36pm July 24, 2024 8:30am TAKE 1 TABLET BY MOUTH EVERY DAY [...] by mouth once daily in the evening Elsberry Carbonate 450 mg tablet extended release Active 450 MG PO Every evening May 02, 2023 1:00am Complies with drug therapy Elsberry Carbonat e 450 mg 2 tablets QHS [...] MOUTH EVERY MORNING Complies with drug therapy Start: 05-02-2023 End: 10-31-2023 take 1 capsule [...] PO Every evening May 02, 2023 1:00am Complies with drug therapy take 1 tablet by missy th every twenty-four hours SEROquel 100 MG 1 tablet at bedtime Orally Once a day Active take 1 tablet by missy th every twenty-four hours SEROquel 25 MG 1 tablet at bedtime Orally Once a day Active rosuvastatin calcium 20 mg oral tablet (20 sources) HMG-CoA Reductase Inhibitor Start: 10-31-2023 End: 02-03-2025 take 1 tablet by mouth once daily in the evening Rosuvastatin 20 mg tablet Active 0 .ROUTE .COMPLEX February 03, 2025 8:25am TAKE 1 TABLET BY MOUTH EVERY EVENING Complies with drug therapy Start: 02-27-2023 End: 10-31-2023 take 1 tablet by mouth once daily in the evening Rosuvastatin 20 mg tablet Discontinued 20 MG PO Every evening August 11, 2023 10:51am October 31, 2023 8:37am Completed/Discontinued Medications Medication Drug Class(es) Dates Sig (Normalized) Sig (Original) acetaminophen 300 mg / codeine phosphate 30 mg oral tablet (20 sources) Opioid Agonist Start: 08-01-2023 End: 08-11-2023 [...] 2024 1:14pm ibuprofen 600 mg oral tablet (19 sources) Nonsteroidal Anti-inflammatory Drug Start: 08-29-2023 End: [...] Not-Taking mometasone furoate 1 mg/ml topical cream (16 sources) Corticosteroid Start: 11-03-2023 End: 12-21-2023 Mometasone 0.1 % cream Discontinued 1 APPLIC TOPICAL Daily November 03, 2023 12:00am December 21, 2023 9:58am Apply to radiation site, once a day, AFTER radiation treatments. sulfamethoxazole 800 mg / trimethoprim 160 mg oral tablet (7 sources) Dihydrofolate Reductase Inhibitor Antibacterial, Sulfonamide Antimicrobial Start: 05-17-2024 End: 08-14-2024 take 1 tablet by mouth twice daily Sulfamethoxazole -Trimethoprim 800-160 mg tablet Discontinued 1 TAB PO Twice daily May 17, 2024 1:00am August 14, 2024 11:30am tamoxifen 20 mg oral tablet (15 sources) Estrogen Agonist/Antagonist Start: 12-21-2023 End: 01-03-2024 [...] venlafaxine 37.5 mg extended release oral capsule (15 sources) Serotonin and Norepinephrine Reuptake Inhibitor Start: [...] that caused by tuberculosis or sexually transmitteddisease) (7 sources) Bacterial conjunctivitis; Translations: [Unspecified conjunctivitis] 06-11-2024 Episodic Menopausal disorders (18 sources) Atrophy of vagina; Translations: [Postmenopausal atrophic vaginitis] Onset: 03-07-2018 Chronic Mood disorders (5 sources) Bipolar disorder, unspecified; Translations: [BIPOLAR DISORDER UNSPECIFIED] Onset: 03-07-2018 Chronic Mycoses (6 sources) Candidiasis of skin and nail; Translations: [Candidiasis] Onset: 06-08-2014 Resolved: 06-10-2016 Episodic Nonmalignant breast conditions (20 sources) Mammographic calcification found on diagnostic imaging of breast; Translations: [Other specified disorders of breast] Onset: 08-05-2022 Resolved: 06-28-2019 03-22-2024 Episodic Other aftercare (14 sources) Long-term current use of drug therapy; Translations: [Other longterm (current) drug therapy] Episodic Other aftercare (3 sources) Other longterm (current) drug therapy; Translations: [OTH LOOM STOP CHECKER 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 THERAPY] Onset: 04-18-2022 Episodic Other [...] upper arm] Episodic Other connective tissue disease (20 sources) Pain in right arm; Translations: [Pain in right arm] Onset: 04-08-2024 02-20-2024 Episodic Other connective tissue disease (6 sources) Pain in right arm; Translations: [Pain in limb] 02-20-2024 Episodic Other connective tissue disease (4 sources) Pain of toe of right foot; Translations: [Pain in right toe(s)] 09-05-2024 Episodic Other ear and sense organ disorders [...] breast] Onset: 07-18-2022 Resolved: 06-28-2019 Episodic Other skin disorders (4 sources) Asteatosis cutis; Translations: [Xerosis cutis] 09-05-2024 Episodic Other skin disorders (4 sources) Ingrowing nail; Translations: [Ingrowing nail] 09-05-2024 Episodic Other upper respiratory disease (20 sources) Allergic rhinitis; Translations: [Allergic rhinitis, unspecified] Onset: 04-08-2024 08-11-2023 Chronic Other upper respiratory disease (3 sources) Allergic rhinitis, unspecified; Translations: [Allergic rhinitis, cause unspecified] 08-11-2023 Chronic Other upper respiratory infections (1 source) Chronic sinusitis; Translations: [Chronic sinusitis, unspecified] Chronic Other upper respiratory infections (20 sources) Acute maxillary sinusitis; Translations: [Acute recurrent [...] for screening for depression] Episodic Thyroid disorders (20 sources) Hypothyroidism; Translations: [Hypothyroidism, unspecified] Chronic Urinary tract infections (1 source) Urinary tract [...] [Pain in right toe(s)] 12-24-2023 Episodic Other ear and sense organ disorders (12 sources) Sudden idiopathic hearing loss; Translations: [Sudden idiopathic hearing loss, right ear] Onset: 04-10-2024 04-10-2024 Episodic Other gastrointestinal disorders (1 source) Abdominal [...] Test Name Value Interpretation Reference Range Facility Microalbumin [Mass/volume] i n Urineon 08-02-2024 Albumin DL <= 20 mg/L (U) [Mass/Vol] Microalbumin [Mass/volume] in Urine <=30.0 [facility] No Panel Informationon 08-02 Urine Random Creatinine 17.19 mg/dL Low 20.0 0-300.0 0 [facility] Influenza virus B Ag [Presen ce] in Upper respiratory specimen by Rapid immunoassayon 07-18-2024 FLUBV Ag IA.rapid Ql (Nph) Influenza virus B Ag [Presence] in Upper respiratory specimen by Rapid immunoassay [facility] No Panel Informationon 07-18 Influenza Type A (Rapid) Negative [facility] POC SARS CoV-[address] [facility] Estimated glomerular filtrat ion rate (GFR) non- Americanon 06-11-2024 GFR/1.73 sq M.predicted among non-blacks MDRD (S/P/Bld) [Vol rate/Area] Estimated glomerular filtration rate (GFR) non- Low >=60 mL/min/1.73 m 2 [facility] Glucose mean value [Mass/vol ume] in Blood Estimated from glycated hemoglobinon 06-11-2024 Average glucose Estimated from glycated hemoglobin (Bld) [Mass/Vol] Glucose mean value [Mass/volume] in Blood Estimated from glycated hemoglobin [facility] Hemoglobin A1c percentageon 06-11-2024 HbA1c (Bld) [Mass fraction] Hemoglobin A1c percentage High 4.5-6.2 [facility] Comment on above: ADA RECOMMENDED LIMI T 4.0 - 6.0ADA THERAPEUTIC TARGET < 7.0ACTION SUGGESTED> 7.0 Laboratory - Chemistry and C hemistry - challengeon 06-11-2024 Creatinine [Mass/Vol] 1.09 mg/dL High 0.55-1.02 [facility] GFR/1.73 sq M.predicted MDRD (S/P/Bld) [Vol rate/Area] mL/min/{1.73_m2} >=60 mL/min/1.73 m 2 [facility] TSH Qn 0.313 m[IU]/L Low 0.358-3.740 [facility] No Panel Informationon 06-11 [place] Level 0.8 mmol/L 0.5-1.2 [facility] Comment on above: A concentration of 0 .5-0.8 mmol/L is advised for long-termuse; concentrations of up to 1.2 mmol/L may be necessaryduring acute treatment. Detection Limit = 0.1 <0.1 indicates None DetectedPerformed at: [facility] [id number] Director: Wojciech Farah PhD, Phone: [phone] Basophils Auto (Bld) [#/Vol] on 05-15-2024 Basophils (Bld) [#/Vol] Automated basoph il count 0.0-0.1 [facility] Basophils/100 WBC Auto (Bld) on 05-15-2024 Basophils/100 WBC (Bld) Automated basophil % 0. 2-2.0 [facility] Eosinophils/100 WBC Auto (Bl d)on 05-15-2024 Eosinophils/100 WBC (Bld) Automated eosinophil % 0.9-7.0 [facility] Erythrocyte distribution wid th Auto (RBC) [Ratio]on 05-15-2024 Erythrocyte distribution width (RBC) [Ratio] Erythrocyte distribution width [Ratio] by Automated count 11.0-15.0 [facility] Estimated glomerular filtrat ion rate (GFR) non- Americanon 05-15-2024 GFR/1.73 sq M.predicted among non-blacks MDRD (S/P/Bld) [Vol rate/Area] Estimated glomerular filtration rate (GFR) non- Low >=60 mL/min/1.73 m 2 [facility] Globulin Calc (S) [Mass/Vol] on 05-15-2024 Globulin (S) [Mass/Vol] Serum globulin measurement by calculation (mass/volume) [facility] Hematocrit Auto (Bld) [Volum e fraction]on 05-15-2024 Hematocrit (Bld) [Volume fraction] Hematocrit [Volume Fraction] of Blood by Automated count 36.0-48.0 [facility] Hemoglobin [Mass/volume] in Bloodon 05-15-2024 Hemoglobin (Bld) [Mass/Vol] Hemoglobin [Mass/volume] in Blood 12.0-16.0 [facility] Laboratory - Chemistry and C hemistry - challengeon 05-15-2024 Albumin [Mass/Vol] 4.0 g/dL 3.4-5.0 [facility] ALP [Catalytic activity/Vol] 105 U/L 46-116 [facility] ALT [Catalytic activity/Vol] 38 U/L 14-59 [facility] AST [Catalytic activity/Vol] 27 U/L 15-37 [facility] Bilirubin [Mass/Vol] 0.5 mg/dL 0.2-1.0 [facility] Calcium [Mass/Vol] 10.3 mg/dL High 8.5-10.1 [facility] Chloride [Moles/Vol] 106 mmol/L 98-107 [facility] CO2 [Moles/Vol] 26.9 mmol/L 21.0-32.0 [facility] Creatinine [Mass/Vol] 1.06 mg/dL High 0.55-1.02 [facility] GFR/1.73 sq M.predicted MDRD (S/P/Bld) [Vol rate/Area] mL/min/{1.73_m2} >=60 mL/min/1.73 m 2 [facility] Glucose [Mass/Vol] 174 mg/dL High 74-106 [facility] LDH [Catalytic activity/Vol] 154 U/L 81-234 [facility] Potassium [Moles/Vol] 4.3 mmol/L 3.5-5.1 [facility] Protein [Mass/Vol] 7.4 g/dL 6.4-8.2 [facility] Sodium [Moles/Vol] 145 mmol/L 136-145 [facility] Urea nitrogen [Mass/Vol] 12.0 mg/dL 7.0-18.0 [facility] Urea nitrogen/Creatinine [Mass ratio] 11.3 mg/mg [facility] Laboratory - Hematology and Cell countson 05-15-2024 Immature granulocytes/100 WBC (Bld) 0.5 % 0.0-0.5 [facility] Leukocytes [#/volume] correc cori for nucleated erythrocytes in Blood by Automated counon 05-15-2024 WBC corrected for nucl RBC Auto (Bld) [#/Vol] Leukocytes [#/volume] corrected for nucleated erythrocytes in Blood by Automated coun 4.0-11.0 [facility] Lymphocytes Auto (Bld) [#/Vo l]on 05-15-2024 Lymphocytes (Bld) [#/Vol] Lymphocytes [#/volume] in Blood by Automated count 1.2-3.8 [facility] Lymphocytes/100 WBC Auto (Bl d)on 05-15-2024 Lymphocytes/100 WBC (Bld) Lymphocytes/100 leukocytes in Blood by Automated count 20.5-60.0 [facility] MCH Auto (RBC) [Entitic mass ]on 05-15-2024 MCH (RBC) [Entitic mass] MCH [Entitic mass] by Automated count 26.7-34.0 [facility] MCHC Auto (RBC) [Mass/Vol]on 05-15-2024 MCHC (RBC) [Mass/Vol] MCHC [Mass/volume] by Automated count 29.9-35.2 [facility] MCV Auto (RBC) [Entitic vol] on 05-15-2024 MCV (RBC) [Entitic vol] MCV [Entitic vol ume] by Automated count 81.0-99.0 [facility] Monocytes Auto (Bld) [#/Vol] on 05-15-2024 Monocytes (Bld) [#/Vol] Automated blood monocyte count 0.3-0.8 [facility] Monocytes/100 WBC Auto (Bld) on 05-15-2024 Monocytes/100 WBC (Bld) Automated monocyte % 1. 7-12.0 [facility] Neutrophils Auto (Bld) [#/Vo l]on 05-15-2024 Neutrophils (Bld) [#/Vol] Neutrophils [#/volume] in Blood by Automated count 1.4-6.5 [facility] Neutrophils/100 WBC Auto (Bl d)on 05-15-2024 Neutrophils/100 WBC (Bld) Automated neutrophil % 43.0-75.0 [facility] No Panel Informationon 05-15 Eosinophils # (Auto) 0.2 10 3/uL 0.0-0.7 [facility] Immature Granulocyte # (Auto) 0.03 10 3/uL 0.00-0.03 [facility] Miscellaneous Test COMMENT . [facility] Comment on above: Test Ordered: [id number] Platelet Antibody ProfileHLA Class 1 Antibody Negative BN Reference Range: NegativeIIb/IIIa Antibody Negative BN Reference Range: NegativeIb/IX Antibody Negative BN Reference Range: NegativeIa/IIa Antibody Negative BN Reference Range: NegativeGlycoprotein IV Antibody Negative BN Reference Range: NegativePerformed at: [facility] - [facility] [id number] Director: Carlos Alberto Goss MD, Phone: [phone] at: - [facility] [id number] Director: Wojciech Farah PhD, Phone: [phone] Platelet mean volume Auto (B ld) [Entitic vol]on 05-15-2024 Platelet mean volume (Bld) [Entitic vol] Platelet mean volume [Entitic volume] in Blood by Automated count 9.5-13.5 [facility] Platelets Auto (Bld) [#/Vol] on 05-15-2024 Platelets (Bld) [#/Vol] Platelets [#/vol ume] in Blood by Automated count Low 150-450 [facility] RBC Auto (Bld) [#/Vol]on RBC (Bld) [#/Vol] Erythrocytes [#/volu me] in Blood by Automated count 4.20-5.40 [facility] Serum or plasma albumin/glob ulin mass ratioon 05-15-2024 Albumin/Globulin [Mass ratio] Serum or plasma albumin/globulin mass ratio [facility] Serum or plasma anion gap de terminationon 05-15-2024 Anion gap [Moles/Vol] Serum or plasma an ion gap determination [facility] Auditory function testson Right Ear: Mild sensorineural hearing loss from 250 Hz - 1K Hz rising to normal hearing from 2K Hz - 3K Hz. Mild to moderate sensorineural hearing loss above 3K Hz Left Ear: Mild sensorineural hearing loss at 8K Hz only [facility] COVID Cepheidon 03-16-2024 SARS-CoV-2 (COVID-19) RNA HIMANSHU+probe Ql (Unsp spec) COVID Cepheid [facility] Laboratory - Microbiology an d Antimicrobial susceptibilityon 03-16-2024 SARS-CoV-2 (COVID-19) RNA HIMANSHU+probe Ql (Unsp spec) Negative [facility] No Panel InformationOrdered By: Valencia Boyd on 03-16-2024 Quick Strep (POC) [facility] No Panel Informationon 03-16 POC Influenza A (PCR) Negative [facility] POC Influenza B (PCR) Negative [facility] HbA1c HPLC (Bld) [Mass fract ion]on 02-20-2024 HbA1c (Bld) [Mass fraction] Hemoglobin A1c/Hemoglobin.total in Blood by HPLC [facility] Globulin Calc (S) [Mass/Vol] on 02-08-2024 Globulin (S) [Mass/Vol] 3.6 g/dL [facility] Globulin (S) [Mass/Vol] Serum globulin measurement by calculation (mass/volume) [facility] Laboratory - Chemistry and C hemistry - challengeon 02-08-2024 Albumin [Mass/Vol] 4.0 g/dL 3.4-5.0 [facility] ALP [Catalytic activity/Vol] 104 U/L 46-116 [facility] [facility] ALT [Catalytic activity/Vol] 37 U/L 14-59 [facility] AST [Catalytic activity/Vol] 29 U/L 15-37 [facility] Bilirubin [Mass/Vol] 0.4 mg/dL 0.2-1.0 [facility] Bilirubin.direct [Mass/Vol] 0.1 mg/dL 0.0-0.2 [facility] Protein [Mass/Vol] 7.6 g/dL 6.4-8.2 [facility] Serum or plasma albumin/glob ulin mass ratioon 02-08-2024 Albumin/Globulin [Mass ratio] 1.1 {ratio} [facility] Albumin/Globulin [Mass ratio] Serum or plasma albumin/globulin mass ratio [facility] Basophils Auto (Bld) [#/Vol] on 12-22-2023 Basophils (Bld) [#/Vol] 0.0 10 3/uL 0.0-0.1 [facility] Basophils/100 WBC Auto (Bld) on 12-22-2023 Basophils/100 WBC (Bld) 0.2 % 0.2-2.0 [facility] Eosinophils/100 WBC Auto (Bl d)on 12-22-2023 Eosinophils/100 WBC (Bld) 0.0 % Low 0.9-7.0 [facility] Erythrocyte distribution wid th Auto (RBC) [Ratio]on 12-22-2023 Erythrocyte distribution width (RBC) [Ratio] 13.9 % 11.0-15.0 [facility] Estimated glomerular filtrat ion rate (GFR) non- Americanon 12-22-2023 GFR/1.73 sq M.predicted among non-blacks MDRD (S/P/Bld) [Vol rate/Area] 52 mL/min/{1.73_m2} Low >=60 [facility] Globulin Calc (S) [Mass/Vol] on 12-22-2023 Globulin (S) [Mass/Vol] 3.3 g/dL [facility] Hematocrit Auto (Bld) [Volum e fraction]on 12-22-2023 Hematocrit (Bld) [Volume fraction] 42.6 % 36.0-48.0 [facility] Hemoglobin [Mass/volume] in Bloodon 12-22-2023 Hemoglobin (Bld) [Mass/Vol] 13.1 g/dL 12.0-16.0 [facility] Iron binding capacity [Mass/ volume] in Serum or Plasmaon 12-22-2023 Iron binding capacity [Mass/Vol] 324.0 ug/dL 250.0-450.0 [facility] Iron saturation [Mass Fracti on] in Serum or Plasmaon 12-22-2023 Iron saturation [Mass fraction] 18.5 % [facility] Laboratory - Chemistry and C hemistry - challengeon 12-22-2023 Albumin [Mass/Vol] 4.1 g/dL 3.4-5.0 [facility] ALP [Catalytic activity/Vol] 101 U/L 46-116 [facility] ALT [Catalytic activity/Vol] 42 U/L 14-59 [facility] AST [Catalytic activity/Vol] 35 U/L 15-37 [facility] Bilirubin [Mass/Vol] 0.4 mg/dL 0.2-1.0 [facility] Calcium [Mass/Vol] 10.0 mg/dL 8.5-10.1 [facility] Chloride [Moles/Vol] 107 mmol/L 98-107 [facility] CO2 [Moles/Vol] 27.1 mmol/L 21.0-32.0 [facility] Cobalamin (Vitamin B12) [Mass/Vol] 382.0 pg/mL 193.0-986.0 [facility] Creatinine [Mass/Vol] 1.07 mg/dL High 0.55-1.02 [facility] Ferritin [Mass/Vol] 312.0 ng/mL High 8.0-252.0 [facility] GFR/1.73 sq M.predicted MDRD (S/P/Bld) [Vol rate/Area] mL/min/{1.73_m2} >=60 [facility] Glucose [Mass/Vol] 143 mg/dL High 74-106 [facility] Iron [Mass/Vol] 60.0 ug/dL 50.0-170.0 [facility] Potassium [Moles/Vol] 5.0 mmol/L 3.5-5.1 [facility] Protein [Mass/Vol] 7.4 g/dL 6.4-8.2 [facility] Sodium [Moles/Vol] 143 mmol/L 136-145 [facility] Urea nitrogen [Mass/Vol] 13.0 mg/dL 7.0-18.0 [facility] Urea nitrogen/Creatinine [Mass ratio] 12.1 mg/mg [facility] Laboratory - Hematology and Cell countson 12-22-2023 Immature granulocytes/100 WBC (Bld) 0.2 % 0.0-0.5 [facility] Leukocytes [#/volume] correc cori for nucleated erythrocytes in Blood by Automated counon 12-22-2023 WBC corrected for nucl RBC Auto (Bld) [#/Vol] 4.2 10 3/uL 4.0-11.0 [facility] Lymphocytes Auto (Bld) [#/Vo l]on 12-22-2023 Lymphocytes (Bld) [#/Vol] 0.8 10 3/uL Low 1.2-3.8 [facility] Lymphocytes/100 WBC Auto (Bl d)on 12-22-2023 Lymphocytes/100 WBC (Bld) 18.5 % Low 20.5-60.0 [facility] MCH Auto (RBC) [Entitic mass ]on 12-22-2023 MCH (RBC) [Entitic mass] 27.8 pg 26.7-34.0 [facility] MCHC Auto (RBC) [Mass/Vol]on 12-22-2023 MCHC (RBC) [Mass/Vol] 30.8 g/dL 29.9-35.2 [facility] MCV Auto (RBC) [Entitic vol] on 12-22-2023 MCV (RBC) [Entitic vol] 90.4 fL 81.0-99.0 [facility] Monocytes Auto (Bld) [#/Vol] on 12-22-2023 Monocytes (Bld) [#/Vol] 0.3 10 3/uL 0.3-0.8 [facility] Monocytes/100 WBC Auto (Bld) on 12-22-2023 Monocytes/100 WBC (Bld) 8.1 % 1.7-12.0 [facility] Neutrophils Auto (Bld) [#/Vo l]on 12-22-2023 Neutrophils (Bld) [#/Vol] 3.1 10 3/uL 1.4-6.5 [facility] Neutrophils/100 WBC Auto (Bl d)on 12-22-2023 Neutrophils/100 WBC (Bld) 73.0 % 43.0-75.0 [facility] No Panel Informationon 12-21 Eosinophils # (Auto) 0.0 10 3/uL 0.0-0.7 [facility] Folate 8.60 ng/mL 8.60-58.90 [facility] Immature Granulocyte # (Auto) 0.01 10 3/uL 0.00-0.03 [facility] Platelet mean volume Auto (B ld) [Entitic vol]on 12-22-2023 Platelet mean volume (Bld) [Entitic vol] 10.1 fL 9.5-13.5 [facility] Platelets Auto (Bld) [#/Vol] on 12-22-2023 Platelets (Bld) [#/Vol] 115 10 3/uL Low 150-450 [facility] RBC Auto (Bld) [#/Vol]on RBC (Bld) [#/Vol] 4.71 10 6/uL 4.20-5.40 [facility] Serum or plasma albumin/glob ulin mass ratioon 12-22-2023 Albumin/Globulin [Mass ratio] 1.2 {ratio} [facility] Serum or plasma anion gap de terminationon 12-22-2023 Anion gap [Moles/Vol] 13.9 mmol/L [facility] Capillary blood glucose juan urement by glucometer (mass/volume)Ordered By: Lisa Rubalcava on 12-05-2023 Glucose [Mass/Vol] 98 mg/dL Normal [facility] Comment on above: Random Glucose Refer ence Range is dependent on time and content of last meal. Glucose of more than 200 mg/dL in a nonstressed, ambulatory subject supports the diagnosis of Diabetes Mellitus. Result Comment: [place] om Glucose Reference Range is dependent on time and content of last meal. Glucose of more than 200 mg/dL in a nonstressed, ambulatory subject supports the diagnosis of Diabetes Mellitus. Performed By: #### G LULS #### Point of Care testing , Glucose Poct Glucometerson 0 12-05-2023 Commemt1 Glu2: Cleaned Meter Normal [facility] Comment on above: Result Comment: PERF ORMED BY: [facility] [address] [place] [address] PATHOLOGIST BIOMEDICAL SERVICE ENGINEER HUI NORTH M.D. Performed By: #### G LULS #### Point of Care testing , Yoan 12-05-2023 L Specimen: [id number] Received: 12/05/23 Status: WAN Beasley Num: [id number] Spec Type: Surgical Subm Dr: Lisa Rubalcava DO Tissues: A Colon Biopsy (SIGMOID POLYP) Procedures: HE/2, Gross/Micro L4 Age/ Patient Sex Location Account Attending Physician Melony Manley 58/F [id number] Lisa Rubalcava DO SPEC NUM: [id number] RECD: 12/05/23 STATUS: WAN CYNTHIA NUM: [id number] MANGO: 12/05/23- SUBM DR: Lisa Rubalcava DO ENTERED: 12/05/[address]: SPEC TYPE: Surgical DEPT: S ORDERED: [...] and entirely submitted in A1. CPT Codes 10538 Specimen: [id number] Received: 12/05/23 Status: WAN Cynthia Num: [id number] Spec Type: Surgical Subm Dr: Lisa Rubalcava DO Tissues: A Colon Biopsy (SIGMOID POLYP) Procedures: HE/2, Gross/Micro L4 Patient: Melony Manley [id number] (Continued) Signed (signature on file) Ugo Brandt Jr., MD 12/06/23 1401 Normal [facility] No Panel InformationOrdered By: Lisa Rubalcava on 12-05-2023 Bedside Glucose Comment Glu2: cleaned meter [facility] Estimated glomerular filtrat ion rate (GFR) non- Americanon 11-15-2023 GFR/1.73 sq M.predicted among non-blacks MDRD (S/P/Bld) [Vol rate/Area] 52 mL/min/{1.73_m2} Low >=60 [facility] Globulin Calc (S) [Mass/Vol] on 11-15-2023 Globulin (S) [Mass/Vol] 3.5 g/dL [facility] Laboratory - Chemistry and C hemistry - challengeon 11-15-2023 Albumin [Mass/Vol] 3.9 g/dL 3.4-5.0 [facility] ALP [Catalytic activity/Vol] 91 U/L 46-116 [facility] ALT [Catalytic activity/Vol] 44 U/L 14-59 [facility] AST [Catalytic activity/Vol] 40 U/L High 15-37 [facility] Bilirubin [Mass/Vol] 0.4 mg/dL 0.2-1.0 [facility] Calcium [Mass/Vol] 9.3 mg/dL 8.5-10.1 [facility] Chloride [Moles/Vol] 110 mmol/L High 98-107 [facility] CO2 [Moles/Vol] 26.2 mmol/L 21.0-32.0 [facility] Creatinine [Mass/Vol] 1.07 mg/dL High 0.55-1.02 [facility] GFR/1.73 sq M.predicted MDRD (S/P/Bld) [Vol rate/Area] mL/min/{1.73_m2} >=60 [facility] Glucose [Mass/Vol] 127 mg/dL High 74-106 [facility] Potassium [Moles/Vol] 4.7 mmol/L 3.5-5.1 [facility] Protein [Mass/Vol] 7.4 g/dL 6.4-8.2 [facility] Sodium [Moles/Vol] 145 mmol/L 136-145 [facility] Urea nitrogen [Mass/Vol] 12.0 mg/dL 7.0-18.0 [facility] Urea nitrogen/Creatinine [Mass ratio] 11.2 mg/mg [facility] Serum or plasma albumin/glob ulin mass ratioon 11-15-2023 Albumin/Globulin [Mass ratio] 1.1 {ratio} [facility] Serum or plasma anion gap de terminationon 11-15-2023 Anion gap [Moles/Vol] 13.5 mmol/L [facility] Cholesterol in LDL Calc [Mas s/Vol]on 09-26-2023 Cholesterol in LDL [Mass/Vol] 31.0 mg/dL [facility] Comment on above: <100 mg/dl [id number] 0-129 mg/dl NEAR OR ABOVE [id number] mg/dl BORDERLINE [id number] mg/dl HIGH>190 mg/dl VERY HIGH Cholesterol in VLDL Calc [Ma ss/Vol]on 09-26-2023 Cholesterol in VLDL [Mass/Vol] 47.8 mg/dL [facility] Estimated glomerular filtrat ion rate (GFR) non- Americanon 09-26-2023 GFR/1.73 sq M.predicted among non-blacks MDRD (S/P/Bld) [Vol rate/Area] mL/min/{1.73_m2} >=60 [facility] Glucose mean value [Mass/vol ume] in Blood Estimated from glycated hemoglobinon 09-26-2023 Average glucose Estimated from glycated hemoglobin (Bld) [Mass/Vol] 189 mg/dL [facility] Laboratory - Chemistry and C hemistry - challengeon 09-26-2023 Cholesterol [Mass/Vol] 120 mg/dL <=200 Fi [facility] Cholesterol in HDL [Mass/Vol] 42 mg/dL 40-60 [facility] Comment on above: > or =60 mg/dl - LOW CARDIOVASCULAR RISK<40 mg/dl - HIGH CARDIOVASCULAR RISK Creatinine [Mass/Vol] 0.89 mg/dL 0.55-1.02 [facility] GFR/1.73 sq M.predicted MDRD (S/P/Bld) [Vol rate/Area] mL/min/{1.73_m2} >=60 [facility] Glucose [Mass/Vol] 182 mg/dL High 74-106 [facility] Triglyceride [Mass/Vol] 239 mg/dL High <=150 [facility] TSH Qn 2.178 m[IU]/L 0.358-3.740 [facility] Laboratory - Hematology and Cell countson 09-26-2023 HbA1c (Bld) [Mass fraction] 8.2 % High 4.5-6.2 [facility] Comment on above: ADA RECOMMENDED LIMI T 4.0 - 6.0ADA THERAPEUTIC TARGET < 7.0ACTION SUGGESTED> 7.0 No Panel Informationon 09-25 [place] Level 0.7 mmol/L 0.5-1.2 [facility] Comment on above: A concentration of 0 .5-0.8 mmol/L is advised for long-termuse; concentrations of up to 1.2 mmol/L may be necessaryduring acute treatment. Detection Limit = 0.1 <0.1 indicates None DetectedPerformed at: - [facility] [address] [id number] Director: Wojciech Farah PhD, Phone: [phone] Serum or plasma total choles terol/high density lipoprotein (HDL) cholesterol mass alix 09-26-2023 Cholesterol.total/Juanita sterol in HDL [Mass ratio] 2.9 {ratio} [facility] Comment on above: 3.3 - 4.4 LOW RISK4. 4 - 7.1 AVERAGE RISK7.1 - 11.0 MODERATE RISK>11.0 HIGH RISK Basophils Auto (Bld) [#/Vol] Ordered By: Ibrahima Chand on 08-01-2023 Basophils (Bld) [#/Vol] 0.0 10*3/uL 0.0-0.2 [facility] Basophils/100 WBC Auto (Bld) Ordered By: Ibrahima Chand on 08-01-2023 Basophils/100 WBC (Bld) 0.5 % . [facility] Calcium [Mass/volume] in Ser um or PlasmaOrdered By: Ibrahima Chand on 08-01-2023 Calcium [Mass/Vol] 9.2 mg/dL 8.6-10.3 [facility] Carbon dioxide, total [Moles /volume] in Serum or PlasmaOrdered By: Ibrahima Chand on 08-01-2023 CO2 [Moles/Vol] 25.7 mmol/L 21.0-31.0 [facility] Chloride [Moles/volume] in S cristi or PlasmaOrdered By: Ibrahima Chand on 08-01-2023 Chloride [Moles/Vol] 106 mmol/L 98-107 [facility] Creatinine [Mass/volume] in Serum or PlasmaOrdered By: Ibrahima Chand on 08-01-2023 Creatinine [Mass/Vol] 0.79 mg/dL 0.60-1.20 [facility] Eosinophils Auto (Bld) [#/Vo l]Ordered By: Ibrahima Chand on 08-01-2023 Eosinophils (Bld) [#/Vol] 0.0 10*3/uL 0.0-0.45 [facility] Eosinophils/100 WBC Auto (Bl d)Ordered By: Ibrahima Chand on 08-01-2023 Eosinophils/100 WBC (Bld) 0.1 % . [facility] Erythrocyte distribution wid th Auto (RBC) [Ratio]Ordered By: Ibrahima Chand on 08-01-2023 Erythrocyte distribution width (RBC) [Ratio] 14.7 % 11.9-15.3 [facility] Glucose [Mass/volume] in Ser um or PlasmaOrdered By: Ibrahima Chand on 08-01-2023 Glucose [Mass/Vol] 157 mg/dL 70-100 [facility] Comment on above: ADA recommended refe rence rangeRandom Glucose Reference Range is dependent on time and content of last meal. Glucose of more than 200 mg/dL in a nonstressed, ambulatory subject supports the diagnosis of Diabetes Mellitus. Hematocrit Auto (Bld) [Volum e fraction]Ordered By: Ibrahima Chand on 08-01-2023 Hematocrit (Bld) [Volume fraction] 43.1 % 34.0-46.4 [facility] Hemoglobin [Mass/volume] in BloodOrdered By: Ibrahima Chand on 08-01-2023 Hemoglobin (Bld) [Mass/Vol] 14.0 g/dL 11.8-15.4 [facility] Leukocytes [#/volume] correc cori for nucleated erythrocytes in Blood by Automated counOrdered By: Ibrahima Chand on 08-01-2023 WBC corrected for nucl RBC Auto (Bld) [#/Vol] 5.5 10*3/uL 3.8-11.6 [facility] Lymphocytes Auto (Bld) [#/Vo l]Ordered By: Ibrahima Chand on 08-01-2023 Lymphocytes (Bld) [#/Vol] 1.1 10*3/uL 1.00-4.8 [facility] Lymphocytes/100 WBC Auto (Bl d)Ordered By: Ibrahima Chand on 08-01-2023 Lymphocytes/100 WBC (Bld) 19.2 % . [facility] MCH Auto (RBC) [Entitic mass ]Ordered By: Ibrahima Chand on 08-01-2023 MCH (RBC) [Entitic mass] 27.6 pg 24.7-34.3 [facility] MCHC Auto (RBC) [Mass/Vol]Or dered By: Ibrahima Chand on 08-01-2023 MCHC (RBC) [Mass/Vol] 32.5 g/dL 32.0-35.0 [facility] MCV Auto (RBC) [Entitic vol] Ordered By: Ibrahima Chand on 08-01-2023 MCV (RBC) [Entitic vol] 84.9 fL 80-100 [facility] Monocytes Auto (Bld) [#/Vol] Ordered By: Ibrahima Chand on 08-01-2023 Monocytes (Bld) [#/Vol] 0.4 10*3/uL 0.0-0.8 [facility] Monocytes/100 WBC Auto (Bld) Ordered By: Ibrahima Chand on 08-01-2023 Monocytes/100 WBC (Bld) 7.1 % . [facility] Neutrophils Auto (Bld) [#/Vo l]Ordered By: Ibrahima Chand on 08-01-2023 Neutrophils (Bld) [#/Vol] 4.0 10*3/uL 1.8-7.7 [facility] Neutrophils/100 WBC Auto (Bl d)Ordered By: Ibrahima Chand on 08-01-2023 Neutrophils/100 WBC (Bld) 73.1 % . [facility] No Panel InformationOrdered By: Ibrahima Chand on 08-01-2023 Estimated GFR (CKD-EPI) > 60.0 mL/Min [facility] Creatinine Clearance (Chem 75.96 [facility] Nucleated erythrocytes [Pres ence] in Blood by Automated countOrdered By: Ibrahima Chand on 08-01-2023 Nucleated RBC Auto Ql (Bld) 0.1 /100{WBC} 0-0.5 [facility] Platelet mean volume Auto (B ld) [Entitic vol]Ordered By: Ibrahima Chand on 08-01-2023 Platelet mean volume (Bld) [Entitic vol] 8.3 fL 6.3-10.7 [facility] Platelets Auto (Bld) [#/Vol] Ordered By: Ibrahima Chand on 08-01-2023 Platelets (Bld) [#/Vol] 131 10*3/uL 150-450 [facility] Potassium [Moles/volume] in Serum or PlasmaOrdered By: Geraldo García on 08-01-2023 Potassium [Moles/Vol] 4.5 mmol/L 3.5-5.1 [facility] RBC Auto (Bld) [#/Vol]Ordere d By: Ibrahima Chand on 08-01-2023 RBC (Bld) [#/Vol] 5.07 10*6/uL 3.60-5.00 [facility] Serum or plasma anion gap de terminationOrdered By: Ibrahima Chand on 08-01-2023 Anion gap [Moles/Vol] TNP [facility] Comment on above: Test not performed Sodium [Moles/volume] in Ser um or PlasmaOrdered By: Ibrahima Chand on 08-01-2023 Sodium [Moles/Vol] 142 mmol/L 136-145 [facility] Urea nitrogen [Mass/volume] in Serum or PlasmaOrdered By: Ibrahima Chand on 08-01-2023 Urea nitrogen [Mass/Vol] 9 mg/dL 7-25 [facility] WBC Auto (Bld) [#/Vol]Ordere d By: Ibrahima Chand on 08-01-2023 WBC (Bld) [#/Vol] 5.5 10*3/uL 3.8-11.6 [facility] Human papilloma virus 16+18+ 31+33+35+39+45+51+52+56+58+59+66+68 DNA [Presence] in [place] 07-24-2023 HPV 16+18+31+33+35+39+45+51 +52+56+58+59+66+68 DNA Probe+sig amp Ql (Cvx) Negative Negative [facility] Comment on above: This nucleic acid am plification test detects fourteen high-risk HPV types (16,18,31,33,35,39,45,51,52,56,58,59,66,68)without differentiation.Performed at: = - [facility] [id number] Director: Venus Acevedo MD, Phone: [phone] at: [facility] [id number] Director: Venus Acevedo MD, Phone: [phone] No Panel Informationon 07-23 HPV High Risk Other Comment Note . [facility] Comment on above: TESTS RESULT FLAG UN ITS REF RANGE LAB -DIAGNOSIS: 02 NEGATIVE FOR INTRAEPITHELIAL LESION OR MALIGNANCY.Specimen adequacy: 02 Satisfactory for evaluation. Endocervical and/or squamous metaplastic cells (endocervical component) are present.Performed by: 02 Yisel Corley Respite Worker (ASCP). 02Note: Note 02 The Pap smear [...] <-Panic Low,>-Panic High,A-Abnormal,AA-Critical Abnormal ------Performed at:[address] [facility] [id number] Venus Acevedo MD, Reference Lab Test Patient Age Note . [facility] Comment on above: TESTS RESULT FLAG UN ITS REF RANGE LAB - Clinician Provided Cytology Information Source.............Cervix;Endocervix No. of containers..01 ThinPrep LucienAge Irena HERNANDEZ Bailey... 29 FLAG LEGEND: L-Low Normal,H-High Normal,LL-Alert Low,HH-Alert High <-Panic Low,>-Panic High,A-Abnormal,AA-Critical Abnormal ------Performed at:01 =[facility] [address] [place] [address] Venus Acevedo MD, Basophils Auto (Bld) [#/Vol] Ordered By: Geraldo García on 07-19-2023 Basophils (Bld) [#/Vol] 0.0 10*3/uL 0.0-0.2 [facility] Basophils/100 WBC Auto (Bld) Ordered By: Geraldo García on 07-19-2023 Basophils/100 WBC (Bld) 0.6 % . [facility] Calcium [Mass/volume] in Ser um or PlasmaOrdered By: Geraldo García on 07-19-2023 Calcium [Mass/Vol] 9.5 mg/dL 8.6-10.3 [facility] Carbon dioxide, total [Moles /volume] in Serum or PlasmaOrdered By: Geraldo García on 07-19-2023 CO2 [Moles/Vol] 27.6 mmol/L 21.0-31.0 [facility] Chloride [Moles/volume] in S cristi or PlasmaOrdered By: Geraldo García on 07-19-2023 Chloride [Moles/Vol] 101 mmol/L 98-107 [facility] Creatinine [Mass/volume] in Serum or PlasmaOrdered By: Geraldo García on 07-19-2023 Creatinine [Mass/Vol] 0.90 mg/dL 0.60-1.20 [facility] Eosinophils Auto (Bld) [#/Vo l]Ordered By: Geraldo García on 07-19-2023 Eosinophils (Bld) [#/Vol] 0.0 10*3/uL 0.0-0.45 [facility] Eosinophils/100 WBC Auto (Bl d)Ordered By: Geraldo García on 07-19-2023 Eosinophils/100 WBC (Bld) 0.0 % . [facility] Erythrocyte distribution wid th Auto (RBC) [Ratio]Ordered By: Geraldo García on 07-19-2023 Erythrocyte distribution width (RBC) [Ratio] 14.1 % 11.9-15.3 [facility] Glucose [Mass/volume] in Ser um or PlasmaOrdered By: Geraldo García on 07-19-2023 Glucose [Mass/Vol] 333 mg/dL 70-100 [facility] Comment on above: ADA recommended refe rence rangeRandom Glucose Reference Range is dependent on time and content of last meal. Glucose of more than 200 mg/dL in a nonstressed, ambulatory subject supports the diagnosis of Diabetes Mellitus. Hematocrit Auto (Bld) [Volum e fraction]Ordered By: Geraldo García on 07-19-2023 Hematocrit (Bld) [Volume fraction] 39.2 % 34.0-46.4 [facility] Hemoglobin [Mass/volume] in BloodOrdered By: Geraldo García on 07-19-2023 Hemoglobin (Bld) [Mass/Vol] 13.0 g/dL 11.8-15.4 [facility] Leukocytes [#/volume] correc cori for nucleated erythrocytes in Blood by Automated counOrdered By: Geraldo García on 07-19-2023 WBC corrected for nucl RBC Auto (Bld) [#/Vol] 4.8 10*3/uL 3.8-11.6 [facility] Lymphocytes Auto (Bld) [#/Vo l]Ordered By: Geraldo García on 07-19-2023 Lymphocytes (Bld) [#/Vol] 0.7 10*3/uL 1.00-4.8 [facility] Lymphocytes/100 WBC Auto (Bl d)Ordered By: Geraldo García on 07-19-2023 Lymphocytes/100 WBC (Bld) 15.7 % . [facility] MCH Auto (RBC) [Entitic mass ]Ordered By: Geraldo García on 07-19-2023 MCH (RBC) [Entitic mass] 27.7 pg 24.7-34.3 [facility] MCHC Auto (RBC) [Mass/Vol]Or dered By: Geraldo García on 07-19-2023 MCHC (RBC) [Mass/Vol] 33.1 g/dL 32.0-35.0 [facility] MCV Auto (RBC) [Entitic vol] Ordered By: Geraldo García on 07-19-2023 MCV (RBC) [Entitic vol] 83.7 fL 80-100 [facility] Monocytes Auto (Bld) [#/Vol] Ordered By: Geraldo García on 07-19-2023 Monocytes (Bld) [#/Vol] 0.3 10*3/uL 0.0-0.8 [facility] Monocytes/100 WBC Auto (Bld) Ordered By: Geraldo García on 07-19-2023 Monocytes/100 WBC (Bld) 6.6 % . [facility] Neutrophils Auto (Bld) [#/Vo l]Ordered By: Geraldo García on 07-19-2023 Neutrophils (Bld) [#/Vol] 3.7 10*3/uL 1.8-7.7 [facility] Neutrophils/100 WBC Auto (Bl d)Ordered By: Geraldo García on 07-19-2023 Neutrophils/100 WBC (Bld) 77.1 % . [facility] No Panel InformationOrdered By: Geraldo García on 07-19-2023 Estimated GFR (CKD-EPI) > 60.0 mL/Min [facility] Creatinine Clearance (Chem N/A [facility] Nucleated erythrocytes [Pres ence] in Blood by Automated countOrdered By: Geraldo García on 07-19-2023 Nucleated RBC Auto Ql (Bld) 0.1 /100{WBC} 0-0.5 [facility] Platelet mean volume Auto (B ld) [Entitic vol]Ordered By: Geraldo García on 07-19-2023 Platelet mean volume (Bld) [Entitic vol] 8.4 fL 6.3-10.7 [facility] Platelets Auto (Bld) [#/Vol] Ordered By: Geraldo García on 07-19-2023 Platelets (Bld) [#/Vol] 127 10*3/uL 150-450 [facility] Potassium [Moles/volume] in Serum or PlasmaOrdered By: Geraldo García on 07-19-2023 Potassium [Moles/Vol] 3.8 mmol/L 3.5-5.1 [facility] RBC Auto (Bld) [#/Vol]Ordere d By: Geraldo García on 07-19-2023 RBC (Bld) [#/Vol] 4.69 10*6/uL 3.60-5.00 [facility] Serum or plasma anion gap de terminationOrdered By: Geraldo García on 07-19-2023 Anion gap [Moles/Vol] 12.2 mmol/L 6.0-15.0 [facility] Sodium [Moles/volume] in Ser um or PlasmaOrdered By: Geraldo García on 07-19-2023 Sodium [Moles/Vol] 137 mmol/L 136-145 [facility] Urea nitrogen [Mass/volume] in Serum or PlasmaOrdered By: Geraldo García on 07-19-2023 Urea nitrogen [Mass/Vol] 12 mg/dL 7-25 [facility] WBC Auto (Bld) [#/Vol]Ordere d By: Geraldo García on 07-19-2023 WBC (Bld) [#/Vol] 4.8 10*3/uL 3.8-11.6 [facility] MRI BREAST BILATERAL W WO CO NTRASTon [...] Anthony Pichardo MD 06/30/23 Final result Normal [facility] Basophils Auto (Bld) [#/Vol] Ordered By: Geraldo García on 05-02-2023 Basophils (Bld) [#/Vol] 0.0 10*3/uL 0.0-0.2 [facility] Basophils/100 WBC Auto (Bld) Ordered By: Geraldo García on 05-02-2023 Basophils/100 WBC (Bld) 0.5 % . [facility] Calcium [Mass/volume] in Ser um or PlasmaOrdered By: Geraldo García on 05-02-2023 Calcium [Mass/Vol] 9.8 mg/dL 8.6-10.3 [place] [facility] Carbon dioxide, total [Moles /volume] in Serum or PlasmaOrdered By: Geraldo García on 05-02-2023 CO2 [Moles/Vol] 26.0 mmol/L 21.0-31.0 [facility] Chloride [Moles/volume] in S cristi or PlasmaOrdered By: Geraldo García on 05-02-2023 Chloride [Moles/Vol] 107 mmol/L 98-107 [facility] Creatinine [Mass/volume] in Serum or PlasmaOrdered By: Geraldo García on 05-02-2023 Creatinine [Mass/Vol] 0.93 mg/dL 0.60-1.20 [facility] Eosinophils Auto (Bld) [#/Vo l]Ordered By: Geraldo García on 05-02-2023 Eosinophils (Bld) [#/Vol] 0.0 10*3/uL 0.0-0.45 [facility] Eosinophils/100 WBC Auto (Bl d)Ordered By: Geraldo García on 05-02-2023 Eosinophils/100 WBC (Bld) 0.0 % . [facility] Erythrocyte distribution wid th Auto (RBC) [Ratio]Ordered By: Geraldo García on 05-02-2023 Erythrocyte distribution width (RBC) [Ratio] 14.0 % 11.9-15.3 [facility] Glucose [Mass/volume] in Ser um or PlasmaOrdered By: Geraldo García on 05-02-2023 Glucose [Mass/Vol] 147 mg/dL 70-100 [facility] Comment on above: ADA recommended refe rence rangeRandom Glucose Reference Range is dependent on time and content of last meal. Glucose of more than 200 mg/dL in a nonstressed, ambulatory subject supports the diagnosis of Diabetes Mellitus. Hematocrit Auto (Bld) [Volum e fraction]Ordered By: Geraldo García on 05-02-2023 Hematocrit (Bld) [Volume fraction] 38.9 % 34.0-46.4 [facility] Hemoglobin [Mass/volume] in BloodOrdered By: Geraldo García on 05-02-2023 Hemoglobin (Bld) [Mass/Vol] 12.9 g/dL 11.8-15.4 [facility] Leukocytes [#/volume] correc cori for nucleated erythrocytes in Blood by Automated counOrdered By: Geraldo García on 05-02-2023 WBC corrected for nucl RBC Auto (Bld) [#/Vol] 5.7 10*3/uL 3.8-11.6 [facility] Lymphocytes Auto (Bld) [#/Vo l]Ordered By: Geraldo García on 05-02-2023 Lymphocytes (Bld) [#/Vol] 1.2 10*3/uL 1.00-4.8 [facility] Lymphocytes/100 WBC Auto (Bl d)Ordered By: Geraldo García on 05-02-2023 Lymphocytes/100 WBC (Bld) 21.5 % . [facility] MCH Auto (RBC) [Entitic mass ]Ordered By: Geraldo García on 05-02-2023 MCH (RBC) [Entitic mass] 28.4 pg 24.7-34.3 [facility] MCHC Auto (RBC) [Mass/Vol]Or dered By: Geraldo García on 05-02-2023 MCHC (RBC) [Mass/Vol] 33.1 g/dL 32.0-35.0 [facility] MCV Auto (RBC) [Entitic vol] Ordered By: Geraldo García on 05-02-2023 MCV (RBC) [Entitic vol] 85.8 fL 80-100 [facility] Monocytes Auto (Bld) [#/Vol] Ordered By: Geraldo García on 05-02-2023 Monocytes (Bld) [#/Vol] 0.4 10*3/uL 0.0-0.8 [facility] Monocytes/100 WBC Auto (Bld) Ordered By: Geraldo García on 05-02-2023 Monocytes/100 WBC (Bld) 6.5 % . [facility] Neutrophils Auto (Bld) [#/Vo l]Ordered By: Geraldo García on 05-02-2023 Neutrophils (Bld) [#/Vol] 4.0 10*3/uL 1.8-7.7 [facility] Neutrophils/100 WBC Auto (Bl d)Ordered By: Geraldo García on 05-02-2023 Neutrophils/100 WBC (Bld) 71.5 % . [facility] No Panel InformationOrdered By: Geraldo García on 05-02-2023 Estimated GFR (CKD-EPI) > 60.0 mL/Min [facility] Creatinine Clearance (Chem N/A [facility] Nucleated erythrocytes [Pres ence] in Blood by Automated countOrdered By: Geraldo García on 05-02-2023 Nucleated RBC Auto Ql (Bld) 0.0 /100{WBC} 0-0.5 [facility] Platelet mean volume Auto (B ld) [Entitic vol]Ordered By: Geraldo García on 05-02-2023 Platelet mean volume (Bld) [Entitic vol] 7.9 fL 6.3-10.7 [facility] Platelets Auto (Bld) [#/Vol] Ordered By: Geraldo García on 05-02-2023 Platelets (Bld) [#/Vol] 146 10*3/uL 150-450 [facility] Potassium [Moles/volume] in Serum or PlasmaOrdered By: Geraldo García on 05-02-2023 Potassium [Moles/Vol] 4.2 mmol/L 3.5-5.1 [facility] RBC Auto (Bld) [#/Vol]Ordere d By: Geraldo García on 05-02-2023 RBC (Bld) [#/Vol] 4.53 10*6/uL 3.60-5.00 [facility] Serum or plasma anion gap de terminationOrdered By: Geraldo García on 05-02-2023 Anion gap [Moles/Vol] 13.2 mmol/L 6.0-15.0 [facility] Sodium [Moles/volume] in Ser um or PlasmaOrdered By: Geraldo García on 05-02-2023 Sodium [Moles/Vol] 142 mmol/L 136-145 [facility] Urea nitrogen [Mass/volume] in Serum or PlasmaOrdered By: Geraldo García on 05-02-2023 Urea nitrogen [Mass/Vol] 12 mg/dL 11-29 [facility] WBC Auto (Bld) [#/Vol]Ordere d By: Geraldo García on 05-02-2023 WBC (Bld) [#/Vol] 5.7 10*3/uL 3.8-11.6 [facility] MG MAMM LT DIAG FUon 08-26- 023 MG MAMM LT DIAG FU Patient: MELONY MANLEY Exam Date: 08/26/2022 : 1965 Gender:F Ordering : DR LITTLE STAFFORD . Admission #: [id number] Family : Order #: [id number] CLICK HERE TO VIEW EXAM RADIOLOGY REPORT [...] stomach cancer at age 54. LOCATION: [facility] BREAST COMPOSITION: Heterogeneously dense,which may [...] M.D. on 08/26/2022 at 14:39 Normal [facility] US BREAST LEFT LIMITEDon US BREAST LEFT LIMITED Patient: MELONY MANLEY Exam Date: 08/26/2022 : 1965 Gender:F Ordering : DR LITTLE STAFFORD . Admission #: [id number] Family : Order #: [id number] CLICK HERE TO VIEW EXAM RADIOLOGY REPORT [...] stomach cancer at age 54. LOCATION: [facility] BREAST COMPOSITION: Heterogeneously dense,which may [...] Mccormack M.D. on 08/26/2022 at 14:39 Normal [facility] MG MAMM SCREEN 3D SOLITARIO CADon 08-01-2022 MG MAMM SCREEN 3D SOLITARIO CAD Patient: MELONY MANLEY Exam Date: 08/01/2022 : 1965 Gender:F Ordering : DR LITTLE STAFFORD . Admission #: [id number] Family : Order #: [id number] CLICK HERE TO VIEW EXAM RADIOLOGY REPORT [...] stomach cancer at age 54. LOCATION: [facility] BREAST COMPOSITION: Heterogeneously dense,which may [...] M.D. on 08/01/2022 at 12:26 Normal [facility] XR DEXA BONE DENSITYon 08-01 XR DEXA [...] by: THEA MCCORMACK Date: 2022-08-01 11:39 Normal [facility] PAP ACOG PANEL 2: 30 to 65on 07-26-2022 . . Normal [facility] Comment on above: Result Comment: Perf ormed at: WB Performed By: #### [id number] #### [facility] [address] [address] [address] Devon Gillette Age Gdln ACOG Testing 30-65 [facility] Comment on above: Performed By: #### [id number] #### [facility] [address] [address] [address] Devon Gillette DIAGNOSIS: Comment Normal [facility] Comment on above: Result Comment: NEGA TIVE FOR INTRAEPITHELIAL LESION OR MALIGNANCY. Performed at: WB Performed By: #### [id number] #### [facility] [address] [address] [address] Devon Gillette HPV Aptima Negative Normal Negative [facility] Comment on above: Result Comment: This nucleic acid amplification test detects fourteen high-risk HPV types (16,18,31,33,35,39,45,51,52,56,58,59,66,68) without differentiation. Performed at: =G Performed By: #### [id number] #### [facility] [address] [address] [address] Devon Gillette HPV Genotype Reflex Comment Normal [facility] Comment on above: Result Comment: Crit eria not met, HPV Genotype not performed. Performed at: WB Performed By: #### [id number] #### [facility] [address] [address] [address] Devon Gillette Methodology: Comment Normal [facility] Comment on above: Result Comment: This liquid based ThinPrep(R) pap test was screened with the use of an image guided system. Performed at: WB Performed By: #### [id number] #### [facility] [address] [place] [address] Dr. Devon Gillette Note: Comment Normal [facility] Comment on above: Result Comment: The Pap smear is a screening test designed to aid in the detection of premalignant and malignant conditions of the uterine cervix. It is not a diagnostic procedure and should not be used as the sole means of detecting cervical cancer. Both false-positive and false-negative reports do occur. . Performed at: WB Performed By: #### [id number] #### [facility] [address] [place] [address] Dr. Devon Gillette Performed by: Comment Normal [facility] Comment on above: Result Comment: Anjelica Girard Respite Worker (ASCP) Performed at: WB Performed By: #### [id number] #### [facility] [address] [place] [address] Dr. Devon Gillette Specimen adequacy: Comment Normal [facility] Comment on above: Result Comment: Sati sfactory for evaluation. Endocervical and/or squamous metaplastic cells (endocervical component) are present. Performed at: WB Performed By: #### [id number] #### [facility] [address] [place] [address] Dr. Devon Gillette VAGINITIS/VAGINOSIS DNA PROB Jim 07-20-2022 Anni species Negative Normal Negative [facility] Comment on above: Performed By: #### V AGINT #### [facility] [address] [place] [address] Dr. Devon Gillette Gardnerella vaginalis Positive Abnormal Negative [facility] Comment on above: Performed By: #### V AGINT #### [facility] [address] [place] [address] Dr. Devon Gillette Trichomonas vaginalis Negative Normal Negative [facility] Comment on above: Performed By: #### V AGINT #### [facility] [address] [place] [address] Dr. Devon Gillette CULTURE URINEon 04-21-2022 CULTURE URINE Culture Observations : LIGHT GROWTH OF MIXED GENITAL LAZARO. NO POTENTIAL PATHOGENS SEEN. Normal [facility] Comment on above: Performed By: #### G FRANKIE, TSH, LIPID, CREA #### [facility] [address] [place] [address] Dr. Devon Gillette LITHIUMon 04-15-2022 [place] (Eskalith(R)), Serum 0.6 mmol/L Normal 0.5-1.2 [facility] Comment on above: Result Comment: A co ncentration of 0.5-0.8 mmol/L is advised for long-term use; concentrations of up to 1.2 mmol/L may be necessary during acute treatment. Detection Limit = 0.1 <0.1 indicates None Detected Performed By: #### G FRANKIE, TSH, LIPID, CREA #### [facility] [address] [place] [address] Dr. Devon Gillette CREATININEon 04-14-2022 Creatinine [Mass/Vol] 0.89 mg/dL Normal 0.55-1.02 [facility] Comment on above: Performed By: #### G FRANKIE, TSH, LIPID, CREA #### [facility] [address] [place] [address] Dr. Devon Gillette EGFR-AF SINGAPOREAN >60 Normal >=60 [facility] Comment on above: Performed By: #### G FRANKIE, TSH, LIPID, CREA #### [facility] [address] [place] [address] Dr. Devon Gillette EGFR-NON AF SINGAPOREAN >60 Normal >=60 [facility] Comment on above: Performed By: #### G FRANKIE, TSH, LIPID, CREA #### [facility] [address] [place] [address] Dr. Devon Gillette GLUCOSE BLOODon 04-14-2022 Glucose [Mass/Vol] 118 mg/dL Critically high 74-106 [facility] Comment on above: Performed By: #### G FRANKIE, TSH, LIPID, CREA #### [facility] [address] [place] [address] Dr. Devon Gillette LIPID PROFILEon 04-14-2022 CHOL-HDL RATIO NORM SEE BELOW Normal [facility] Comment on above: Result Comment: 3.3 - 4.4 LOW RISK 4.4 - 7.1 AVERAGE RISK 7.1 - 11.0 MODERATE RISK >11.0 HIGH RISK Performed By: #### G FRANKIE, TSH, LIPID, CREA #### [facility] [address] [address] [address] Devon Gillette Cholesterol [Mass/Vol] 128 mg/dL Normal <=200 Th [facility] Comment on above: Performed By: #### G FRANKIE, TSH, LIPID, CREA #### [facility] [address] [place] [address] Dr. Devon Gillette Cholesterol in HDL [Mass/Vol] 47 mg/dL Normal 40-60 [facility] Comment on above: Performed By: #### G FRANKIE, TSH, LIPID, CREA #### [facility] [address] [address] [address] Devon Gillette Cholesterol in LDL [Mass/Vol] 34.6 mg/dL Normal [facility] Comment on above: Performed By: #### G FRANKIE, TSH, LIPID, CREA #### [facility] [address] [address] [address] Devon Gillette Cholesterol.total/Juanita sterol in HDL [Mass ratio] 2.7 {ratio} Normal [facility] Comment on above: Performed By: #### G FRANKIE, TSH, LIPID, CREA #### [facility] [address] [place] [address] Dr. Devon Gillette HDL NORMAL > or = 60 mg/dl - LO W CARDIOVASCULAR RISK <40 mg/dl - HIGH CARDIOVASCULAR RISK Normal [facility] Comment on above: Performed By: #### G FRANKIE, TSH, LIPID, CREA #### [facility] [address] [place] [address] Dr. Devon Gillette LDL CALC NORMAL SEE BELOW Normal [facility] Comment on above: Result Comment: <100 mg/dl OPTIMAL 100 - 129 mg/dl NEAR OR ABOVE OPTIMAL 130 - 159 mg/dl BORDERLINE HIGH 160 - 189 mg/dl HIGH >190 mg/dl VERY HIGH Performed By: #### G FRANKIE, TSH, LIPID, CREA #### [facility] [address] [place] [address] Dr. Devon Gillette Triglyceride [Mass/Vol] 232 mg/dL Critically high <=150 [facility] Comment on above: Performed By: #### G FRANKIE, TSH, LIPID, CREA #### [facility] [address] [place] [address] Dr. Devon Gillette VLDL CALC 46.4 mg/dL Normal [facility] Comment on above: Performed By: #### G FRANKIE, TSH, LIPID, CREA #### [facility] [address] [place] [address] Dr. Devon Gillette TSHon 04-14-2022 TSH 0.375 uIU/mL Normal 0.358-3.740 [facility] Comment on above: Performed By: #### G FRANKIE, TSH, LIPID, CREA #### [facility] [address] [place] [address] Dr. Devon Gillette CULTURE URINEon 03-30-2022 CULTURE [...] F Trimethoprim/Sulfametho xazole <=20 S F Normal [facility] Comment on above: Performed By: #### U RCX #### [facility] [address] [place] [address] Dr. Devon Gillette LITHIUMon 12-28-2021 [place] (Eskalith(R)), Serum 0.7 mmol/L Normal 0.5-1.2 [facility] Comment on above: Result Comment: Plas ma concentration of 0.5 - 0.8 mmol/L are advised for long-term use; concentrations of up to 1.2 mmol/L may be necessary during acute treatment. Detection Limit = 0.1 <0.1 indicates None Detected Performed By: #### G FRANKIE, TSH, LIPID, CREA #### [facility] [address] [address] [address] Devon Gillette CREATININEon 12-27-2021 Creatinine [Mass/Vol] 1.10 mg/dL Critically high 0.55-1.02 [facility] Comment on above: Performed By: #### G FRANKIE, TSH, LIPID, CREA #### [facility] [address] [place] [address] Dr. Devon Gillette EGFR-AF SINGAPOREAN >60 Normal >=60 [facility] Comment on above: Performed By: #### G FRANKIE, TSH, LIPID, CREA #### [facility] [address] [address] [address] Devon Gillette EGFR-NON AF SINGAPOREAN 51 mL/min/1.73m2 Critically low >=60 [facility] Comment on above: Performed By: #### G FRANKIE, TSH, LIPID, CREA #### [facility] [address] [address] [address] Devon Gillette DIRECT LDLon 12-27-2021 Cholesterol in LDL [Mass/Vol] 133 mg/dL Normal [facility] Comment on above: Performed By: #### G FRANKIE, TSH, LIPID, CREA #### [facility] [address] [place] [address] Dr. Devon Gillette DLDL NORMAL SEE BELOW Normal [facility] Comment on above: Result Comment: <100 mg/dl OPTIMAL 100 - 129 mg/dl NEAR OR ABOVE OPTIMAL 130 - 159 mg/dl BORDERLINE HIGH 160 - 189 mg/dl HIGH >190 mg/dl VERY HIGH Performed By: #### G FRANKIE, TSH, LIPID, CREA #### [facility] [address] [place] [address] Dr. Devon Gillette GLUCOSE BLOODon 12-27-2021 Glucose [Mass/Vol] 151 mg/dL Critically high 74-106 T [facility] Comment on above: Performed By: #### G FRANKIE, TSH, LIPID, CREA #### [facility] [address] [address] [address] Devon Gillette LIPID PROFILEon 12-27-2021 CHOL-HDL RATIO NORM SEE BELOW Normal [facility] Comment on above: Result Comment: 3.3 - 4.4 LOW RISK 4.4 - 7.1 AVERAGE RISK 7.1 - 11.0 MODERATE RISK >11.0 HIGH RISK Performed By: #### G FRANKIE, TSH, LIPID, CREA #### [facility] [address] [address] [address] Devon Gillette Cholesterol [Mass/Vol] 244 mg/dL Critically high <=200 [facility] Comment on above: Performed By: #### G FRANKIE, TSH, LIPID, CREA #### [facility] [address] [place] [address] Dr. Devon Gillette Cholesterol in HDL [Mass/Vol] 33 mg/dL Critically low 40-60 [facility] Comment on above: Performed By: #### G FRANKIE, TSH, LIPID, CREA #### [facility] [address] [address] [address] Devon Gillette Cholesterol.total/Juanita sterol in HDL [Mass ratio] 7.4 {ratio} Normal [facility] Comment on above: Performed By: #### G FRANKIE, TSH, LIPID, CREA #### [facility] [address] [place] [address] Dr. Devon Gillette HDL NORMAL > or = 60 mg/dl - LO W CARDIOVASCULAR RISK <40 mg/dl - HIGH CARDIOVASCULAR RISK Normal [facility] Comment on above: Performed By: #### G FRANKIE, TSH, LIPID, CREA #### [facility] [address] [place] [address] Dr. Devon Gillette Triglyceride [Mass/Vol] 431 mg/dL Critically high <=150 [facility] Comment on above: Performed By: #### G FRANKIE, TSH, LIPID, CREA #### [facility] [address] [place] [address] Dr. Devon Gillette Vital Signs Date Time Vital Sign Value Performing Clinician Facility 02-03-2025 10:00-0400 Body height 162.56 cm Susan Ayala MD Work Phone: [facility] 02-03-2025 10:00-0400 Body mass index (BMI) [Ratio] 26.2 kg/m2 Susan Ayala MD Work Phone: [facility] 02-03-2025 10:00-0400 Body weight 69.39 kg Susan Ayala MD Work Phone: [facility] 02-03-2025 10:00-0400 Diastolic blood pressure 75 mm[Hg] Susan Ayala MD Work Phone: [facility] 02-03-2025 10:00-0400 Heart rate 74 /min Susan Ayala MD Work Phone: [facility] 02-03-2025 10:00-0400 Systolic blood pressure 126 mm[Hg] Susan Ayala MD Work Phone: [facility] 10-03-2024 13:42-0400 Body height 162.6 cm Gilson Brown DPM Work Phone: [facility] 10-03-2024 13:42-0400 Body mass index (BMI) [Ratio] 28.15 kg/m2 Gilson Brown DPM Work Phone: [facility] 10-03-2024 13:42-0400 Body weight 74.39 kg Gilson Brown DPM Work Phone: [facility] 10-03-2024 13:42-0400 Respiratory rate 16 /min Gilson Brown DPM Work Phone: [facility] 09-05-2024 10:40-0400 Body height 162.6 cm Gilson Brown DPM Work Phone: [facility] 09-05-2024 10:40-0400 Body mass index (BMI) [Ratio] 28.15 kg/m2 Gilson Brown DPM Work Phone: [facility] 09-05-2024 10:40-0400 Body weight 74.39 kg Gilson Kostas DPM Work Phone: [facility] 09-05-2024 10:40-0400 Respiratory rate 16 /min Gilson Kenyon DPM Work Phone: [facility] 08-14-2024 11:27-0400 Body temperature 97.6 [degF] Susan Ayala MD Work Phone: [facility] 08-14-2024 11:27-0400 Body weight 71.21 kg Susan Ayala MD Work Phone: [facility] 08-14-2024 11:27-0400 Diastolic blood pressure 76 mm[Hg] Susan Ayala MD Work Phone: [facility] 08-14-2024 11:27-0400 Heart rate 77 /min Susan Ayala MD Work Phone: [facility] 08-14-2024 11:27-0400 Respiratory rate 20 /min Susan Ayala MD Work Phone: [facility] 08-14-2024 11:27-0400 SaO2% (BldA) [Mass fraction] 99 % Susan Ayala MD Work Phone: [facility] 08-14-2024 11:27-0400 Systolic blood pressure 133 mm[Hg] Susan Ayala MD Work Phone: [facility] 07-18-2024 13:18-0400 Body height 162.56 cm Susan Ayala MD Work Phone: [facility] 07-18-2024 13:18-0400 Body mass index (BMI) [Ratio] 26.9 kg/m2 Susan Ayala MD Work Phone: [facility] 07-18-2024 13:18-0400 Body temperature 96.8 [degF] Susan Ayala MD Work Phone: [facility] 07-18-2024 13:18-0400 Body weight 71.21 kg Susan Ayala MD Work Phone: [facility] 07-18-2024 13:18-0400 Diastolic blood pressure 66 mm[Hg] Susan Ayala MD Work Phone: [facility] 07-18-2024 13:18-0400 Heart rate 118 /min Susan Ayala MD Work Phone: [facility] 07-18-2024 13:18-0400 SaO2% (BldA) [Mass fraction] 99 % Susan Ayala MD Work Phone: [facility] 07-18-2024 13:18-0400 Systolic blood pressure 118 mm[Hg] Susan Ayala MD Work Phone: [facility] 06-11-2024 08:44-0500 Body height 162.56 cm uSsan Ayala MD Work Phone: [facility] 06-11-2024 08:44-0500 Body mass index (BMI) [Ratio] 27.1 kg/m2 Susan Ayala MD Work Phone: [facility] 06-11-2024 08:44-0500 Body weight 71.66 kg Susan Ayala MD Work Phone: [facility] 06-11-2024 08:44-0500 Diastolic blood pressure 66 mm[Hg] Susan Ayala MD Work Phone: [facility] 06-11-2024 08:44-0500 Heart rate 66 /min Susan Ayala MD Work Phone: [facility] 06-11-2024 08:44-0500 Systolic blood pressure 102 mm[Hg] Susan Ayala MD Work Phone: [facility] 05-24-2024 13:26-0500 Body height 162.56 cm Susan Ayala MD Work Phone: [facility] 05-24-2024 13:26-0500 Body mass index (BMI) [Ratio] 27.4 kg/m2 Susan Ayala MD Work Phone: [facility] 05-24-2024 13:26-0500 Body weight 72.57 kg Susan Ayala MD Work Phone: [facility] 05-24-2024 13:26-0500 Diastolic blood pressure 84 mm[Hg] Susan Ayala MD Work Phone: [facility] 05-24-2024 13:26-0500 Heart rate 109 /min Susan Ayala MD Work Phone: [facility] 05-24-2024 13:26-0500 Systolic blood pressure 128 mm[Hg] Susan Ayala MD Work Phone: [facility] 05-23-2024 11:45-0500 Body height 162.56 cm Susan Ayala MD Work Phone: [facility] 05-23-2024 11:45-0500 Body mass index (BMI) [Ratio] 27.3 kg/m2 Susan Ayala MD Work Phone: [facility] 05-23-2024 11:45-0500 Body temperature 97.6 [degF] Susan Ayala MD Work Phone: [facility] 05-23-2024 11:45-0500 Body weight 72.12 kg Susan Ayala MD Work Phone: [facility] 05-23-2024 11:45-0500 Diastolic blood pressure 83 mm[Hg] Susan Ayala MD Work Phone: [facility] 05-23-2024 11:45-0500 Heart rate 103 /min Susan Ayala MD Work Phone: [facility] 05-23-2024 11:45-0500 Respiratory rate 20 /min Susan Ayala MD Work Phone: [facility] 05-23-2024 11:45-0500 SaO2% (BldA) [Mass fraction] 99 % Susan Ayala MD Work Phone: [facility] 05-23-2024 11:45-0500 Systolic blood pressure 149 mm[Hg] Susan Ayala MD Work Phone: [facility] 05-17-2024 11:14-0500 Body height 162.56 cm Susan Ayala MD Work Phone: [facility] 05-17-2024 11:14-0500 Body mass index (BMI) [Ratio] 27.1 kg/m2 Susan Ayala MD Work Phone: [facility] 05-17-2024 11:14-0500 Body temperature 98.9 [degF] Susan Ayala MD Work Phone: [facility] 05-17-2024 11:14-0500 Body weight 71.66 kg Susan Ayala MD Work Phone: [facility] 05-17-2024 11:14-0500 Diastolic blood pressure 85 mm[Hg] Susan Ayala MD Work Phone: [facility] 05-17-2024 11:14-0500 Heart rate 93 /min Susan Ayala MD Work Phone: [facility] 05-17-2024 11:14-0500 SaO2% (BldA) [Mass fraction] 99 % Susan Ayala MD Work Phone: [facility] 05-17-2024 11:14-0500 Systolic blood pressure 144 mm[Hg] Susan Ayala MD Work Phone: [facility] 04-10-2024 12:50-0500 Body height 162.6 cm Christy Quick MD Work Phone: [facility] 04-10-2024 12:50-0500 Diastolic blood pressure 78 mm[Hg] Christy Quick MD Work Phone: [facility] 04-10-2024 12:50-0500 Systolic blood pressure 150 mm[Hg] Christy Quick MD Work Phone: [facility] 03-25-2024 14:49-0500 Body height 1950.72 cm Susan Ayala MD Work Phone: [facility] 03-25-2024 14:49-0500 Body mass index (BMI) [Ratio] 0.1 kg/m2 Susan Ayala MD Work Phone: [facility] 03-25-2024 14:49-0500 Body weight 70.76 kg Susan Ayala MD Work Phone: [facility] 03-25-2024 14:49-0500 Diastolic blood pressure 77 mm[Hg] Susan Ayala MD Work Phone: [facility] 03-25-2024 14:49-0500 Heart rate 87 /min Susan Ayala MD Work Phone: [facility] 03-25-2024 14:49-0500 Systolic blood pressure 133 mm[Hg] Susan Ayala MD Work Phone: [facility] 03-22-2024 10:31-0500 Body height 162.56 cm Susan Ayala MD Work Phone: [facility] 03-22-2024 10:31-0500 Body mass index (BMI) [Ratio] 26.7 kg/m2 Susan Ayala MD Work Phone: [facility] 03-22-2024 10:31-0500 Body temperature 97.9 [degF] Susan Ayala MD Work Phone: [facility] 03-22-2024 10:31-0500 Body weight 70.76 kg Susan Ayala MD Work Phone: [facility] 03-22-2024 10:31-0500 Diastolic blood pressure 85 mm[Hg] Susan Ayala MD Work Phone: [facility] 03-22-2024 10:31-0500 Heart rate 91 /min Susan Ayala MD Work Phone: [facility] 03-22-2024 10:31-0500 Respiratory rate 16 /min Susan Ayala MD Work Phone: [facility] 03-22-2024 10:31-0500 SaO2% (BldA) [Mass fraction] 99 % Susan Ayala MD Work Phone: [facility] 03-22-2024 10:31-0500 Systolic blood pressure 129 mm[Hg] Susan Ayala MD Work Phone: [facility] 03-16-2024 09:13-0500 Body height 162.56 cm Susan Ayala MD Work Phone: [facility] 03-16-2024 09:13-0500 Body mass index (BMI) [Ratio] 27.3 kg/m2 Susan Ayala MD Work Phone: [facility] 03-16-2024 09:13-0500 Body temperature 98.5 [degF] Susan Ayala MD Work Phone: [facility] 03-16-2024 09:13-0500 Body weight 72.12 kg Susan Ayala MD Work Phone: [facility] 03-16-2024 09:13-0500 Diastolic blood pressure 77 mm[Hg] Susan Ayala MD Work Phone: [facility] 03-16-2024 09:13-0500 Heart rate 94 /min Susan Ayala MD Work Phone: [facility] 03-16-2024 09:13-0500 Respiratory rate 16 /min Susan Ayala MD Work Phone: [facility] 03-16-2024 09:13-0500 SaO2% (BldA) [Mass fraction] 97 % Susan Ayala MD Work Phone: [facility] 03-16-2024 09:13-0500 Systolic blood pressure 123 mm[Hg] Susan Ayala MD Work Phone: [facility] 03-07-2024 13:23-0400 Body height 162.6 cm Gilson Kenyon DPM Work Phone: [facility] 03-07-2024 13:23-0400 Body mass index (BMI) [Ratio] 28.15 kg/m2 Gilson Kenyon DPM Work Phone: [facility] 03-07-2024 13:23-0400 Body weight 74.39 kg Gilson Kenyon DPM Work Phone: [facility] 03-07-2024 13:23-0400 Heart rate 81 /min Gilson Kenyon DPM Work Phone: [facility] 02-20-2024 08:13-0400 Body height 162.56 cm MD Susan Ayala Work Phone: [facility] 02-20-2024 08:13-0400 Body mass index (BMI) [Ratio] 27.1 kg/m2 MD Susan Ayala Work Phone: [facility] 02-20-2024 08:13-0400 Body weight 71.78 kg MD Susan Ayala Work Phone: [facility] 02-20-2024 08:13-0400 Diastolic blood pressure 62 mm[Hg] MD Susan Ayala Work Phone: [facility] 02-20-2024 08:13-0400 Heart rate 89 /min MD Susan Ayala Work Phone: [facility] 02-20-2024 08:13-0400 Respiratory rate 16 /min MD Susan Ayala Work Phone: [facility] 02-20-2024 08:13-0400 SaO2% (BldA) [Mass fraction] 97 % MD Susan Ayala Work Phone: [facility] 02-20-2024 08:13-0400 Systolic blood pressure 126 mm[Hg] MD Susan Ayala Work Phone: [facility] 02-15-2024 13:01-0400 Body height 162.56 cm MD Susan Ayala Work Phone: [facility] 02-15-2024 13:01-0400 Body mass index (BMI) [Ratio] 27.3 kg/m2 MD Susan Ayala Work Phone: [facility] 02-15-2024 13:01-0400 Body temperature 98.2 [degF] MD Susan Ayala Work Phone: [facility] 02-15-2024 13:01-0400 Body weight 72.12 kg MD Susan Ayala Work Phone: [facility] 02-15-2024 13:01-0400 Diastolic blood pressure 78 mm[Hg] MD Susan Ayala Work Phone: [facility] 02-15-2024 13:01-0400 Heart rate 82 /min MD Susan Ayala Work Phone: [facility] 02-15-2024 13:01-0400 Respiratory rate 20 /min MD Susan Ayala Work Phone: [facility] 02-15-2024 13:01-0400 SaO2% (BldA) [Mass fraction] 100 % MD Susan Ayala Work Phone: [facility] 02-15-2024 13:01-0400 Systolic blood pressure 127 mm[Hg] MD Susan Ayala Work Phone: [facility] 01-03-2024 13:56-0400 Body temperature 99.1 [degF] MD Susan Ayala Work Phone: [facility] 01-03-2024 13:56-0400 Body weight 72.12 kg MD Susan Ayala Work Phone: [facility] 01-03-2024 13:56-0400 Diastolic blood pressure 77 mm[Hg] MD Susan Ayala Work Phone: [facility] 01-03-2024 13:56-0400 Heart rate 107 /min MD Susan Ayala Work Phone: [facility] 01-03-2024 13:56-0400 Respiratory rate 16 /min MD Susan Ayala Work Phone: [facility] 01-03-2024 13:56-0400 SaO2% (BldA) [Mass fraction] 98 % MD Susan Ayala Work Phone: [facility] 01-03-2024 13:56-0400 Systolic blood pressure 147 mm[Hg] MD Susan Ayala Work Phone: [facility] 12-28-2023 13:13-0400 Body height 162.6 cm Gilsno Kenyon DPM Work Phone: [facility] 12-28-2023 13:13-0400 Body mass index (BMI) [Ratio] 28.15 kg/m2 Gilson Kenyon DPM Work Phone: [facility] 12-28-2023 13:13-0400 Body weight 74.39 kg Gilson Kostas DPM Work Phone: [facility] 12-28-2023 13:13-0400 Diastolic blood pressure 80 mm[Hg] Gilson Kenyon DPM Work Phone: [facility] 12-28-2023 13:13-0400 Heart rate 89 /min Gilson Kenyon DPM Work Phone: [facility] 12-28-2023 13:13-0400 Systolic blood pressure 130 mm[Hg] Gilson Brown DPM Work Phone: [facility] 12-21-2023 09:56-0400 Body height 162.56 cm MD Susan Ayala Work Phone: [facility] 12-21-2023 09:56-0400 Body mass index (BMI) [Ratio] 27.1 kg/m2 MD Susan Ayala Work Phone: [facility] 12-21-2023 09:56-0400 Body temperature 97.9 [degF] MD Susan Ayala Work Phone: [facility] 12-21-2023 09:56-0400 Body weight 71.66 kg MD Susan Ayala Work Phone: [facility] 12-21-2023 09:56-0400 Diastolic blood pressure 81 mm[Hg] MD Susan Ayala Work Phone: [facility] 12-21-2023 09:56-0400 Heart rate 95 /min MD Susan Ayala Work Phone: [facility] 12-21-2023 09:56-0400 Respiratory rate 20 /min MD Susan Ayala Work Phone: [facility] 12-21-2023 09:56-0400 SaO2% (BldA) [Mass fraction] 100 % MD Susan Ayala Work Phone: [facility] 12-21-2023 09:56-0400 Systolic blood pressure 136 mm[Hg] MD Susan Ayala Work Phone: [facility] 12-05-2023 09:05-0400 Diastolic blood pressure 82 mm[Hg] MD Susan Ayala Work Phone: [facility] 12-05-2023 09:05-0400 Heart rate 66 /min MD Susan Ayala Work Phone: [facility] 12-05-2023 09:05-0400 Respiratory rate 20 /min MD Susan Ayala Work Phone: [facility] 12-05-2023 09:05-0400 SaO2% (BldA) [Mass fraction] 100 % MD Susan Ayala Work Phone: [facility] 12-05-2023 09:05-0400 Systolic blood pressure 137 mm[Hg] MD Susan Ayala Work Phone: [facility] 11-20-2023 08:09-0400 Body height 162.56 cm MD Susan Ayala Work Phone: [facility] 11-20-2023 08:09-0400 Body weight 74.84 kg MD Susan Ayala Work Phone: [facility] 10-24-2023 12:53-0400 Body height 162.56 cm MD Susan Ayala Work Phone: [facility] 10-24-2023 12:53-0400 Body mass index (BMI) [Ratio] 27.8 kg/m2 MD Susan Ayala Work Phone: [facility] 10-24-2023 12:53-0400 Body temperature 97.9 [degF] MD Susan Ayala Work Phone: [facility] 10-24-2023 12:53-0400 Body weight 73.48 kg MD Susan Ayala Work Phone: [facility] 10-24-2023 12:53-0400 Diastolic blood pressure 83 mm[Hg] MD Susan Ayala Work Phone: [facility] 10-24-2023 12:53-0400 Heart rate 85 /min MD Susan Ayala Work Phone: [facility] 10-24-2023 12:53-0400 Respiratory rate 16 /min MD Susan Ayala Work Phone: [facility] 10-24-2023 12:53-0400 SaO2% (BldA) [Mass fraction] 98 % MD Susan Ayala Work Phone: [facility] 10-24-2023 12:53-0400 Systolic blood pressure 137 mm[Hg] MD Susan Ayala Work Phone: [facility] 10-11-2023 13:21-0400 Body height 162.56 cm MD Susan Ayala Work Phone: [facility] 10-11-2023 13:21-0400 Body mass index (BMI) [Ratio] 28.3 kg/m2 MD Susan Ayala Work Phone: [facility] 10-11-2023 13:21-0400 Body temperature 98 [degF] MD Susan Ayala Work Phone: [facility] 10-11-2023 13:21-0400 Body weight 74.84 kg MD Susan Ayala Work Phone: [facility] 10-11-2023 13:21-0400 Diastolic blood pressure 79 mm[Hg] MD Susan Ayala Work Phone: [facility] 10-11-2023 13:21-0400 Heart rate 102 /min MD Susan Ayala Work Phone: [facility] 10-11-2023 13:21-0400 Respiratory rate 20 /min MD Susan Ayala Work Phone: [facility] 10-11-2023 13:21-0400 SaO2% (BldA) [Mass fraction] 98 % MD Susan Ayala Work Phone: [facility] 10-11-2023 13:21-0400 Systolic blood pressure 133 mm[Hg] MD Susan Ayala Work Phone: [facility] 10-03-2023 13:01-0400 Body height 162.56 cm MD Susan Ayala Work Phone: [facility] 10-03-2023 13:01-0400 Body mass index (BMI) [Ratio] 28.5 kg/m2 MD Susan Ayala Work Phone: [facility] 10-03-2023 13:01-0400 Body weight 75.29 kg MD Susan Ayala Work Phone: [facility] 10-03-2023 13:01-0400 Diastolic blood pressure 73 mm[Hg] MD Susan Ayala Work Phone: [facility] 10-03-2023 13:01-0400 Heart rate 83 /min MD Susan Ayala Work Phone: [facility] 10-03-2023 13:01-0400 Systolic blood pressure 125 mm[Hg] MD Susan Ayala Work Phone: [facility] 09-21-2023 10:59-0400 Body height 162.56 cm MD Susan Ayala Work Phone: [facility] 09-21-2023 10:59-0400 Body mass index (BMI) [Ratio] 28.1 kg/m2 MD Susan Ayala Work Phone: [facility] 09-21-2023 10:59-0400 Body temperature 98 [degF] MD Susan Ayala Work Phone: [facility] 09-21-2023 10:59-0400 Body weight 74.38 kg MD Susan Ayala Work Phone: [facility] 09-21-2023 10:59-0400 Diastolic blood pressure 80 mm[Hg] MD Susan Ayala Work Phone: [facility] 09-21-2023 10:59-0400 Heart rate 77 /min MD Susan Ayala Work Phone: [facility] 09-21-2023 10:59-0400 Respiratory rate 18 /min MD Susan Ayala Work Phone: [facility] 09-21-2023 10:59-0400 SaO2% (BldA) [Mass fraction] 100 % MD Susan Ayala Work Phone: [facility] 09-21-2023 10:59-0400 Systolic blood pressure 131 mm[Hg] MD Susan Ayala Work Phone: [facility] 08-29-2023 13:44-0400 Diastolic blood pressure 82 mm[Hg] MD Susan Ayala Work Phone: [facility] 08-29-2023 13:44-0400 Heart rate 67 /min MD Susan Ayala Work Phone: [facility] 08-29-2023 13:44-0400 Respiratory rate 16 /min MD Susan Ayala Work Phone: [facility] 08-29-2023 13:44-0400 SaO2% (BldA) [Mass fraction] 98 % MD Susan Ayala Work Phone: [facility] 08-29-2023 13:44-0400 Systolic blood pressure 146 mm[Hg] MD Susan Ayala Work Phone: [facility] 08-29-2023 12:59-0400 Body temperature 97 [degF] MD Susan Ayala Work Phone: [facility] 08-29-2023 12:29-0400 Inhaled oxygen flow rate 8 L/min MD Susan Ayala Work Phone: [facility] 08-29-2023 11:31-0400 Body weight 74.84 kg MD Susan Ayala Work Phone: [facility] 08-29-2023 11:15-0400 Body height 162.56 cm MD Susan Ayala Work Phone: [facility] 08-11-2023 10:40-0400 Body height 162.56 cm MD Susan Ayala Work Phone: [facility] 08-11-2023 10:40-0400 Body mass index (BMI) [Ratio] 28.1 kg/m2 MD Susan Ayala Work Phone: [facility] 08-11-2023 10:40-0400 Body temperature 97.5 [degF] MD Susan Ayala Work Phone: [facility] 08-11-2023 10:40-0400 Body weight 74.44 kg MD Susan Ayala Work Phone: [facility] 08-11-2023 10:40-0400 Diastolic blood pressure 80 mm[Hg] MD Susan Ayala Work Phone: [facility] 08-11-2023 10:40-0400 Heart rate 85 /min MD Susan Ayala Work Phone: [facility] 08-11-2023 10:40-0400 Systolic blood pressure 121 mm[Hg] MD Susan Ayala Work Phone: [facility] 08-01-2023 13:50-0400 Diastolic blood pressure 78 mm[Hg] MD Susan Ayala Work Phone: [facility] 08-01-2023 13:50-0400 Heart rate 72 /min MD Susan Ayala Work Phone: [facility] 08-01-2023 13:50-0400 Respiratory rate 16 /min MD Susan Ayala Work Phone: [facility] 08-01-2023 13:50-0400 SaO2% (BldA) [Mass fraction] 100 % MD Susan Ayala Work Phone: [facility] 08-01-2023 13:50-0400 Systolic blood pressure 138 mm[Hg] MD Susan Ayala Work Phone: [facility] 08-01-2023 12:58-0400 Body temperature 98.4 [degF] MD Susan Ayala Work Phone: [facility] 08-01-2023 12:33-0400 Inhaled oxygen flow rate 8 L/min MD Susan Ayala Work Phone: [facility] 08-01-2023 11:26-0400 Body height 162.56 cm MD Susan Ayala Work Phone: [facility] 08-01-2023 11:26-0400 Body mass index (BMI) [Ratio] 28.3 kg/m2 MD Susan Ayala Work Phone: [facility] 08-01-2023 11:26-0400 Body weight 74.84 kg MD Susan Ayala Work Phone: [facility] 07-11-2023 14:28-0500 Body height 162.56 cm MD Susan Ayala Work Phone: [facility] 07-11-2023 14:28-0500 Body mass index (BMI) [Ratio] 28.5 kg/m2 MD Susan Ayala Work Phone: [facility] 07-11-2023 14:28-0500 Body weight 75.46 kg MD Susan Ayala Work Phone: [facility] 07-11-2023 14:28-0500 Diastolic blood pressure 75 mm[Hg] MD Susan Ayala Work Phone: [facility] 07-11-2023 14:28-0500 Heart rate 93 /min MD Susan Ayala Work Phone: [facility] 07-11-2023 14:28-0500 Systolic blood pressure 138 mm[Hg] MD Susan Ayala Work Phone: [facility] 05-16-2023 10:00-0500 Body temperature 98.2 [degF] MD Susan Ayala Work Phone: [facility] 05-16-2023 10:00-0500 Diastolic blood pressure 78 mm[Hg] MD Susan Ayala Work Phone: [facility] 05-16-2023 10:00-0500 Heart rate 87 /min MD Susan Ayala Work Phone: [facility] 05-16-2023 10:00-0500 Respiratory rate 18 /min MD Susan Ayala Work Phone: [facility] 05-16-2023 10:00-0500 SaO2% (BldA) [Mass fraction] 99 % MD Susan Ayala Work Phone: [facility] 05-16-2023 10:00-0500 Systolic blood pressure 136 mm[Hg] MD Susan Ayala Work Phone: [facility] 05-02-2023 16:16-0500 Body height 162.56 cm MD Susan Ayala Work Phone: [facility] 05-02-2023 16:16-0500 Body weight 75.7 kg MD Susan Ayala Work Phone: [facility] 03-27-2023 14:00-0500 Body height 162.56 cm Susan Ayala Other [facility] [employer] Other 03-27-2023 14:00-0500 Body mass index (BMI) [Ratio] 28.49 kg/m2 Susan Ayala Other [email or web address] [facility] [employer] Other 03-27-2023 14:00-0500 Body weight 75.3 kg Susan Ayala Other [employer] Other 03-27-2023 14:00-0500 Diastolic blood pressure 84 mm[Hg] Susan Ayala Other [employer] Other 03-27-2023 14:00-0500 Systolic blood pressure 136 mm[Hg] Susan Ayala Other [employer] Other 02-06-2023 10:30-0400 Body height 162.56 cm Susan Ayala Other [employer] Other 02-06-2023 10:30-0400 Body mass index (BMI) [Ratio] 29.01 kg/m2 Susan Ayala Other [employer] Other 02-06-2023 10:30-0400 Body weight 76.66 kg Susan Ayala Other [employer] Other 02-06-2023 10:30-0400 Diastolic blood pressure 84 mm[Hg] Susan Ayala Other [employer] Other 02-06-2023 10:30-0400 Systolic blood pressure 144 mm[Hg] Susan Ayala Other [employer] Other 12-28-2022 09:30-0400 Body height 162.56 cm Susan Ayala Other [employer] Other 12-28-2022 09:30-0400 Body mass index (BMI) [Ratio] 28.15 kg/m2 Susan Ayala Other [employer] Other 12-28-2022 09:30-0400 Body weight 74.39 kg Susan Ayala Other [employer] Other 12-28-2022 09:30-0400 Diastolic blood pressure 78 mm[Hg] Susan Ayala Other [employer] Other 12-28-2022 09:30-0400 SaO2% (BldA) [Mass fraction] 96 % Susan Ayala Other [employer] Other 12-28-2022 09:30-0400 Systolic blood pressure 128 mm[Hg] Susan Ayala Other [employer] Other 09-13-2022 15:00-0400 Body height 162.56 cm Susan Ayala Other [employer] Other 09-13-2022 15:00-0400 Body mass index (BMI) [Ratio] 28.32 kg/m2 Susan Ayala Other [employer] Other 09-13-2022 15:00-0400 Body weight 74.84 kg Susan Ayala Other [employer] Other 09-13-2022 15:00-0400 Diastolic blood pressure 74 mm[Hg] Susan Ayala Other [employer] Other 09-13-2022 15:00-0400 SaO2% (BldA) [Mass fraction] 98 % Susan Ayala Other [employer] Other 09-13-2022 15:00-0400 Systolic blood pressure 142 mm[Hg] Susan Ayala Other [employer] Other 07-06-2022 10:00-0500 Body height 162.56 cm Susan Ayala Other [employer] Other 07-06-2022 10:00-0500 Body mass index (BMI) [Ratio] 28.66 kg/m2 Susan Ayala Other [employer] Other 07-06-2022 10:00-0500 Body weight 75.75 kg Susan Ayala Other [employer] Other 07-06-2022 10:00-0500 Diastolic blood pressure 62 mm[Hg] Susan Ayala Other [employer] Other 07-06-2022 10:00-0500 SaO2% (BldA) [Mass fraction] 98 % Susan Ayala Other [employer] Other 07-06-2022 10:00-0500 Systolic blood pressure 110 mm[Hg] Susan Ayala Other [employer] Other 06-14-2022 11:00-0500 Body height 162.56 cm Susan Ayala Other [employer] Other 06-14-2022 11:00-0500 Body mass index (BMI) [Ratio] 29.01 kg/m2 Susan Ayala Other [employer] Other 06-14-2022 11:00-0500 Body weight 76.66 kg Susan Ayala Other [employer] Other 06-14-2022 11:00-0500 Diastolic blood pressure 76 mm[Hg] Susan Ayala Other [employer] Other 06-14-2022 11:00-0500 SaO2% (BldA) [Mass fraction] 98 % Susan Ayala Other [employer] Other 06-14-2022 11:00-0500 Systolic blood pressure 138 mm[Hg] Susan Ayala Other [employer] Other Encounters Encounter Date Encounter Type Care Provider Facility Start: 02-03-2025 End: 02-03-2025 ambulatory Susan Ayala MD Work Phone: [facility] Work Phone: Start: 02-03-2025 End: 02-03-2025 Patient encounter procedure Susan Ayala MD -[facility] Work Phone: Start: 10-15-2024 ambulatory Gavin Singhelaziz Facility:[facility] Start: 10-03-2024 End: 10-03-2024 Bamboo flowsheet Gilson Kenyon DPM Work Phone: [facility] Start: 10-03-2024 End: 10-03-2024 Bamboo flowsheet Gilson Kenyon DPM Work Phone: [facility] Start: 10-03-2024 End: 10-03-2024 Office outpatient visit 15 minutes Gilson Kenyon DPM Work Phone: [facility] Comment on above: Xerosis cutis (Prima ry Dx); Onychocryptosis; Toe pain, right; Pain due to onychomycosis of toenails of both feet Start: 10-03-2024 End: 10-03-2024 ambulatory GILSON KENYON Not Available Start: 09-05-2024 End: 09-05-2024 Bamboo flowsheet Gilson Kenyon DPM Work Phone: [facility] Start: 09-05-2024 End: 09-05-2024 Bamboo flowsheet Gilson Sejal Brown DPM Work Phone: [facility] Start: 09-05-2024 End: 09-05-2024 Office outpatient visit 15 minutes Gilson Kenyon DPM Work Phone: [facility] Comment on above: Xerosis cutis (Prima ry Dx); Onychocryptosis; Toe pain, right Start: 09-05-2024 End: 09-05-2024 ambulatory GILSON KENYON Not Available Start: 08-14-2024 ambulatory Mhd Jose Luis Colon cility:[facility] Start: 08-14-2024 End: 08-14-2024 ambulatory Susan Ayala MD Work Phone: [facility] Work Phone: Start: 08-14-2024 End: 08-14-2024 Patient encounter procedure Susan Ayala MD Work Phone: [facility] Work Phone: Start: 08-02-2024 Non-patient / Non-visit Susan Ayala MD Work Phone: [facility] Work Phone: Start: 07-18-2024 End: 07-18-2024 ambulatory Susan Ayala MD Work Phone: [facility] Work Phone: Start: 07-18-2024 End: 07-18-2024 Patient encounter procedure Susan Ayala MD Work Phone: [facility] Work Phone: Start: 07-16-2024 Registered Recurring Susan bailon MD Work Phone: [facility] Start: 06-11-2024 End: 06-11-2024 ambulatory Susan Ayala MD Work Phone: [facility] Work Phone: Start: 06-11-2024 End: 06-11-2024 Patient encounter procedure Susan Ayala MD Work Phone: [facility] Work Phone: Start: 05-24-2024 Patient encounter status Susan Ayala MD Work Phone: [facility] Start: 05-24-2024 End: 05-24-2024 ambulatory Susan Ayala MD Work Phone: [facility] Work Phone: Start: 05-24-2024 End: 05-24-2024 Encounter for general adult medical examination without abnormal findings Susan Ayala MD Work Phone: [facility] Start: 05-24-2024 End: 05-24-2024 Patient encounter procedure Susan Ayala MD Work Phone: [facility] Work Phone: Start: 05-23-2024 Registered Recurring Susan bailon MD Work Phone: [facility] Work Phone: Start: 05-23-2024 End: 05-23-2024 ambulatory Susan Ayala MD Work Phone: [facility] Work Phone: Start: 05-23-2024 End: 05-23-2024 Patient encounter procedure Susan Ayala MD Work Phone: [facility] Work Phone: Start: 05-17-2024 End: 05-17-2024 ambulatory Susan Ayala MD Work Phone: [facility] Work Phone: Start: 05-17-2024 End: 05-17-2024 Patient encounter procedure Susan Ayala MD Work Phone: [facility] Work Phone: Start: 05-15-2024 Non-patient / Non-visit Susan Ayala MD Work Phone: [facility] Work Phone: Start: 05-14-2024 End: 05-15-2024 Telephone encounter Christy Quick MD Work Phone: [facility] Start: 05-14-2024 Registered Recurring Susan bailon MD Work Phone: [facility] Start: 04-16-2024 Registered Recurring Susan bailon MD Work Phone: [facility] Start: 04-10-2024 End: 04-10-2024 Bamboo flowsmike Quick MD Work Phone: [facility] Start: 04-10-2024 End: 04-10-2024 Bamboo flowsheet Christy Quick MD Work Phone: [facility] Start: 04-10-2024 End: 04-10-2024 Office outpatient new 45 minutes Christy Quick MD Work Phone: [facility] Comment on above: 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); ETD (Eustachian tube dysfunction), right Start: 04-10-2024 End: 04-10-2024 Clinical Support Angelica Hawkins [facility] Work Phone: [facility] Comment on above: 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); Tinnitus, right Start: 03-25-2024 End: 03-25-2024 ambulatory Susan Ayala MD Work Phone: [facility] Work Phone: Start: 03-25-2024 End: 03-25-2024 Patient encounter procedure Susan Ayala MD Work Phone: [facility] Work Phone: Start: 03-22-2024 Registered Recurring Susan bailon MD [facility] Work Phone: Start: 03-22-2024 End: 03-22-2024 ambulatory Susan Ayala MD Work Phone: [facility] Work Phone: Start: 03-22-2024 End: 03-22-2024 Patient encounter procedure Susan Ayala MD Work Phone: [facility] Work Phone: Start: 03-16-2024 End: 03-16-2024 ambulatory Susan Ayala MD Work Phone: [facility] Work Phone: Start: 03-16-2024 End: 03-16-2024 Patient encounter procedure Susan Ayala MD Work Phone: [facility] [place] Work Phone: Start: 03-07-2024 End: 03-07-2024 Bamboo flowsheet Gilson Kenyon DPM Work Phone: [facility] Start: 03-07-2024 End: 03-07-2024 Bamboo flowsheet Gilson Kenyon DPM Work Phone: [facility] Start: 03-07-2024 End: 03-07-2024 Patient encounter procedure Gilson eKnyon DPM Work Phone: [facility] Comment on above: 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 (Primary Dx) Start: 03-07-2024 End: 03-07-2024 ambulatory GILSON KENYON Not Available Start: 02-27-2024 Registered Recurring Susan bailon MD Work Phone: [facility] Start: 02-20-2024 End: 02-20-2024 ambulatory MD Susan Ayala Work Phone: [facility] Work Phone: Start: 02-20-2024 End: 02-20-2024 Patient encounter procedure MD Susan Ayala Work Phone: [facility] Work Phone: Start: 02-15-2024 Registered Recurring MD Susan Ayala Work Phone: [facility] Work Phone: Start: 02-15-2024 End: 02-15-2024 ambulatory MD Susan Ayala Work Phone: [facility] Work Phone: Start: 02-15-2024 End: 02-15-2024 Patient encounter procedure MD Susan Ayala Work Phone: [facility] Work Phone: Start: 02-08-2024 Non-patient / Non-visit MD Susan Ayala Work Phone: [facility] Work Phone: Start: 01-23-2024 Registered Recurring MD Susan Ayala Work Phone: [facility] Start: 01-03-2024 End: 01-03-2024 ambulatory MD Susan Ayala Work Phone: [facility] Work Phone: Start: 01-03-2024 End: 01-03-2024 Patient encounter procedure MD Susan Ayala Work Phone: [facility] Work Phone: Start: 01-03-2024 Registered Recurring MD Susan Ayala Work Phone: [facility] Work Phone: Start: 12-28-2023 [...] / Non-visit MD Susan Ayala Work Phone: [facility] Work Phone: Start: 12-21-2023 End: 12-21-2023 ambulatory MD Susan Ayala Work Phone: [facility] Work Phone: Start: 12-21-2023 End: 12-21-2023 Patient encounter procedure MD Susan Ayala Work Phone: [facility] Work Phone: Start: 12-21-2023 Registered Recurring MD Susan Ayala [facility] Work Phone: Start: 12-11-2023 Registered Recurring MD Susan yAala Work Phone: [facility] Start: 12-06-2023 Non-patient / Non-visit MD Susan Ayala Work Phone: [facility] Work Phone: Start: 12-05-2023 Non-patient / Non-visit MD Susan Ayala Work Phone: [facility] Work Phone: Start: 12-05-2023 End: 12-05-2023 Admission to same day surgery center MD Susan Ayala Work Phone: [facility] Work Phone: Start: 12-05-2023 End: 12-05-2023 ambulatory MD Susan Ayala Work Phone: [facility] Work Phone: Start: 12-04-2023 Registered Recurring MD Susan Ayala [facility] Work Phone: Start: 11-29-2023 Non-patient / Non-visit MD Susan Ayala Work Phone: [facility] Work Phone: Start: 11-27-2023 Non-patient / Non-visit MD Susan Ayala Work Phone: [facility] Work Phone: Start: 11-22-2023 Non-patient / Non-visit MD Susan Ayala Work Phone: [facility] Work Phone: Start: 11-20-2023 Non-patient / Non-visit MD Susan Ayala Work Phone: [facility] Work Phone: Start: 11-15-2023 Non-patient / Non-visit MD Susan Ayala Work Phone: [facility] Work Phone: Start: 11-13-2023 Non-patient / Non-visit MD Susan Ayala Work Phone: [facility] Work Phone: Start: 11-08-2023 Non-patient / Non-visit MD Susan Ayala Work Phone: [facility] Work Phone: Start: 11-02-2023 Non-patient / Non-visit MD Susan Ayala Work Phone: [facility] Work Phone: Start: 10-31-2023 Registered Recurring MD Susan Ayala Work Phone: [facility] Start: 10-25-2023 End: 10-25-2023 ambulatory GERALDO GARCÍA Not Available Start: 10-24-2023 End: 10-24-2023 Patient encounter procedure MD Susan Ayala Work Phone: [facility] Work Phone: Start: 10-19-2023 End: 10-19-2023 ambulatory GILSONMarek KENYON Not Available Start: 10-11-2023 End: 10-11-2023 ambulatory MD Susan Ayala Work Phone: [facility] Work Phone: Start: 10-11-2023 End: 10-11-2023 Patient encounter procedure MD Susan Ayala Work Phone: [facility] Work Phone: Start: 10-11-2023 Registered Recurring MD Susan Ayala Work Phone: [facility] Work Phone: Start: 10-03-2023 End: 10-03-2023 ambulatory MD Susan Ayala Work Phone: [facility] Work Phone: Start: 10-03-2023 End: 10-03-2023 Patient encounter procedure MD Susan Ayala Work Phone: [facility] Work Phone: Start: 09-26-2023 Non-patient / Non-visit MD Susan Ayala Work Phone: [facility] Work Phone: Start: 09-21-2023 End: 09-21-2023 Patient encounter procedure MD Susan Ayala Work Phone: [facility] Work Phone: Start: 09-21-2023 Registered Recurring MD Susan Ayala Work Phone: [facility] Work Phone: Start: 09-19-2023 Registered Recurring MD Susan Ayala Work Phone: [facility] Start: 08-29-2023 End: 08-29-2023 Admission to same day surgery center MD Susan Ayala Work Phone: [facility] [place] Start: 08-29-2023 End: 08-29-2023 ambulatory MD Susan Ayala Work Phone: [facility] Work Phone: Start: 08-11-2023 End: 08-11-2023 ambulatory MD Susan Ayala Work Phone: [facility] Work Phone: Start: 08-11-2023 End: 08-11-2023 Patient encounter procedure MD Susan Ayala Work Phone: [facility] Work Phone: Start: 08-01-2023 End: 08-01-2023 Admission to same day surgery center MD Susan Ayala Work Phone: [facility] [place] Start: 08-01-2023 End: 08-01-2023 ambulatory MD Susan Ayala Work Phone: [facility] Work Phone: Start: 07-24-2023 Non-patient / Non-visit MD Susan Ayala Work Phone: [facility] Work Phone: Start: 07-19-2023 End: 07-19-2023 ambulatory MD Susan Ayala Work Phone: [facility] Work Phone: Start: 07-19-2023 End: 07-19-2023 Patient encounter procedure MD Susan Ayala Work Phone: [facility] Work Phone: Start: 07-12-2023 End: 07-12-2023 Admission to same day surgery center MD Susan Ayala Work Phone: [facility] for Breast Car Start: 07-11-2023 End: 07-11-2023 Patient encounter procedure MD Susan Ayala Work Phone: [facility] Work Phone: Start: 07-04-2023 Registered Recurring MD Susan Ayala Work Phone: [facility] Start: 06-29-2023 End: 07-02-2023 ambulatory ADAMA STERLINGSHARATH [facility] Start: 05-30-2023 Registered Recurring MD Susan Ayala Work Phone: [facility] Start: 05-16-2023 End: 05-16-2023 Admission to same day surgery center MD Susan Ayala Work Phone: [facility] Work Phone: Start: 05-16-2023 End: 05-16-2023 ambulatory MD Susan Ayala Work Phone: [facility] Work Phone: Start: 05-02-2023 End: 05-02-2023 Patient encounter procedure MD Susan Ayala Work Phone: [facility] Work Phone: Start: 04-10-2023 End: 04-10-2023 ambulatory Susan Ayala Other [employer] Other Start: 04-10-2023 Telephone encounter Susan Ayala [facility] Start: 03-27-2023 End: 03-27-2023 ambulatory Susan Ayala Other [employer] Other Start: 03-27-2023 Patient encounter procedure Susan Ayala [facility] Start: 03-27-2023 Telephone encounter Susan Ayala [facility] Start: 03-21-2023 End: 03-21-2023 ambulatory Susan Ayala Other [employer] Other Start: 03-21-2023 Telephone encounter Susan Ayala [facility] Start: 03-10-2023 (Televisit) Televisit Susan Ayala Trian [facility] Start: 03-10-2023 End: 03-10-2023 ambulatory Susan Ayala Other [employer] Other Start: 03-06-2023 End: 03-06-2023 ambulatory Susan Ayala Other [employer] Other Start: 03-06-2023 Telephone encounter Susan Ayala [facility] Start: 02-06-2023 End: 02-06-2023 ambulatory Susan Ayala Other [employer] Other Start: 02-06-2023 Office outpatient visit 15 minutes Susan Ayala [facility] Start: 02-06-2023 Telephone encounter Susan Ayala [facility] Start: 12-28-2022 End: 12-28-2022 ambulatory Susan Ayala Other [employer] Other Start: 12-28-2022 Office outpatient visit 15 minutes Susan Ayala [facility] Start: 09-13-2022 End: 09-13-2022 ambulatory Susan Ayala Other [employer] Other Start: 09-13-2022 Office outpatient visit 15 minutes Susan Ayala [facility] Start: 08-26-2022 End: 08-27-[address] LITTLE STAFFORD . Facility:[facility] Start: 08-01-2022 End: 08-02-[address] LITTLE STAFFORD . Facility:[facility] Start: 07-18-2022 End: 07-18-[address] LITTLE STAFFORD . Facility:[facility] Start: 07-12-2022 End: 07-12-2022 ambulatory Susan Ayala Other [employer] Other Start: 07-12-2022 Telephone encounter Susan Ayala [facility] Start: 07-06-2022 End: 07-06-2022 ambulatory Susan Ayala Other [employer] Other Start: 07-06-2022 Office outpatient visit 15 minutes Susan Ayala [facility] Start: 06-21-2022 End: 06-21-2022 ambulatory Susan Ayala Other [employer] Other Start: 06-21-2022 Telephone encounter Susan Ayala [facility] Start: 06-14-2022 Office outpatient visit 15 minutes Susan Ayala [facility] Start: 06-14-2022 End: 06-14-2022 ambulatory MD Susan Ayala Work Phone: [facility] Work Phone: Start: 06-14-2022 End: 06-14-2022 Departed Referred MD Susan Ayala Work Phone: [facility] [place] Work Phone: Start: 04-25-2022 Adult health examination Susan Ayala Other [employer] Other Start: 04-25-2022 Gynecological examination normal Susan Ayala Other [employer] Other Start: 04-21-2022 End: 04-21-[address] SUSAN AYALA Facility:[facility] Start: 04-14-2022 End: 04-15-2022 ambulatory ANIA BLANCA Facility:[facility] Start: 03-28-2022 End: 03-28-[address] SUSAN AYALA Facility:[facility] Start: 12-27-2021 End: 12-28-2021 ambulatory ANIA BLANCA Facility:[facility] Procedures Date Procedure Procedure Detail Performing Clinician Start: 04-10-2024 AUDITORY FUNCTION TESTS Angelica Hawkins CCC-A Work Phone: Start: 03-16-2024 Quick Strep (POC) Radha Ayala MD Work Phone: Start: 12-05-2023 Screening colonoscopy Janak Ayala Work [...] Screening for malign ant neoplasm of cervix [facility] Start: 10-03-2024 End: 10-03-2024 Patient encounter procedure 10/03/2024 1:50 PM EDT Office Visit [facility] [address] [facility] [address] [place] [address] Gilson Kenyon DPM [address] [facility] [address] [place] [address] Xerosis cutis (Primary Dx); Onychocryptosis; Toe pain, right [facility] Comment on above: Xerosis cutis (Prima ry Dx); Onychocryptosis; Toe pain, right Start: 09-05-2024 End: 09-05-2024 Patient encounter procedure 09/05/2024 10:40 AM EDT Office Visit [facility] [address] [facility] [address] [place] [address] Gilson Kenyon DPM [address] [address] Pain due to onychomycosis of toenails of both feet (Primary Dx); Xerosis cutis [facility] Comment on above: 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 (Primary Dx); Xerosis cutis Start: 07-31-2024 Screening for malign ant neoplasm of breast Mammogram [facility] Start: 05-16-2024 End: 05-16-2024 Patient encounter procedure 05/16/2024 1:50 PM EST Procedure Visit [facility] [address] [facility] [address] [place] [address] Gilson Kenyon DPM [address] [address] [facility] Start: 04-10-2024 End: 04-10-2024 Patient encounter procedure 04/10/2024 1:10 PM EST Office Visit [facility] [address] [facility] [address] [place] [address] Christy Quick MD [address] [facility] [address] [place] [address] Arrived [facility] Comment on above: Arrived Start: 03-07-2024 End: 03-07-2024 Patient encounter procedure [facility] Comment on above: 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 (Primary Dx) Start: 01-07-2024 Influenza vaccination Influenza Vacc ine (#1) [facility] Start: 12-28-2023 End: 12-28-2023 Patient encounter procedure 12/28/2023 1:10 PM EDT Procedure Visit [facility] [address] [facility] [address] [place] [address] Gilson Kenyon, DPM [address] [facility] [address] [place] [address] Onychomycosis (Primary Dx); Toe pain, bilateral [facility] Comment on above: Onychomycosis (Prima ry Dx); Toe pain, bilateral Start: 12-05-2023 [facility] Start: 10-11-[address] [facility] Work Phone: Start: 10-09-[address] [facility] Work Phone: Start: 08-29-2023 [facility] Start: 08-29-2023 End: 08-29-2023 [facility] Start: 08-01-2023 [facility] Start: 08-01-2023 [facility] Start: 05-16-2023 Lumpectomy of left breast OR Breast Bx, Lumpectomy, Mass Excision (Left) [facility] Start: 06-14-2022 [facility] Start: 1965 Screening for malign ant neoplasm of colon [facility] Atopobium vaginae DN A [Presence] in Vaginal fluid by HIMANSHU with probe detection [facility] Bacterial vaginosis associated bacterium 2 DNA [Presence] in Vaginal fluid by HIMANSHU with probe detection [facility] Basophils [#/volume] in Blood by Automated count [facility] Basophils/100 leukocytes in Blood by Automated count [facility] Comprehensive metabo lic 1999 panel - Serum or Plasma [facility] Comprehensive metabo lic 1999 panel - Serum or Plasma [facility] Comprehensive metabo lic 1999 panel - Serum or Plasma [facility] Comprehensive metabo lic 1999 panel - Serum or Plasma [facility] DXA Skeletal system.axial Views for bone density [facility] DXA Skeletal system.axial Views for bone density [facility] Eosinophils/100 leukocytes in Blood by Automated count [facility] Erythrocyte distribution width [Ratio] by Automated count [facility] Erythrocytes [#/volu me] in Blood [facility] Hematocrit [Volume Fraction] of Blood [facility] Hemoglobin [Mass/volume] in Blood [facility] Hepatic function panel [facility] Leukocytes [#/volume ] corrected for nucleated erythrocytes in Blood by Automated coun [facility] Leukocytes [#/volume ] in Blood [facility] Lymphocytes [#/volum e] in Blood by Automated count [facility] Lymphocytes/100 leukocytes in Blood by Automated count [facility] MCH [Entitic mass] b y Automated count [facility] MCHC [Mass/volume] b y Automated count [facility] MCV [Entitic volume] by Automated count [facility] Megasphaera sp type 1 DNA [Presence] in Vaginal fluid by HIMANSHU with probe detection [facility] MG Breast - left Diagnostic [facility] Monocytes [#/volume] in Blood by Automated count [facility] Monocytes/100 leukocytes in Blood by Automated count [facility] Neutrophils [#/volum e] in Blood by Automated count [facility] Neutrophils/100 leukocytes in Blood by Automated count [facility] Nucleated erythrocyt es [Presence] in Blood by Automated count [facility] Patient Education Colon polyps H emorrhoids (DC) Diverticulosis (DC) Know your Meds [facility] Work Phone: Patient referral [facility] Work Phone: Platelet mean volume [Entitic volume] in Blood by Automated count [facility] Platelets [#/volume] in Blood [facility] XR Humerus - right Views [facility] Immunizations Immunization Date Immunization Notes Care Provider Fa cility 02-21-2024 influenza, injectabl e, madin paulette canine kidney, preservative free Christy Quick MD Work Phone: [facility] 02-21-2024 influenza virus vacc ine, unspecified formulation Gilson eKnyon DPM Work Phone: [facility] 02-28-2022 COVID-19 mRNA Bivale nt Booster (Pfizer) MD Susan Ayala Work Phone: [facility] 02-28-2022 Influenza, injectabl e, Madin Maybrook Canine Kidney, preservative free, quadrivalent Christy Quick MD Work Phone: [facility] 02-28-2022 influenza virus vacc ine, unspecified formulation Gilson Kenyon DPM Work Phone: [facility] 04-20-2021 COVID-19 mRNA, Comir leeroy (Pfizer) MD Susan Ayala Work Phone: [facility] 08-27-2020 COVID-19 mRNA, Comir leeroy (Pfizer) MD Susan Ayala Work Phone: [facility] 08-07-2020 COVID-19 mRNA, Comir leeroy (Pfizer) MD Susan Ayala Work Phone: [facility] 01-23-2017 influenza, injectabl e, quadrivalent, preservative free Christy Quick MD Work Phone: [facility] 02-22-2016 influenza, injectabl e, quadrivalent, preservative free Christy Quick MD Work Phone: [facility] 02-05-2015 influenza, seasonal, injectable, preservative free Christy Quick MD Work Phone: [facility] 02-26-1997 influenza, seasonal, injectable Christy Quick MD Work Phone: [facility] 02-26-1997 pneumococcal polysaccharide vaccine, 23 valent Christy Quick MD Work Phone: [facility] Payers Date Payer Category Payer Medicare [id number] 2022 Self-pay [id number] 2019 Medicare HU[employer]NA MEDICARE ADVANTAGE HU[employer]NA MEDICARE [id number] 2019-Present [address] [address] [place] [address] [id number] 2019 Medicare (Managed Care) 1.2. [id number] 2017 Medicaid [id number] 1964 Unknown [id number] 2.16.840.1.098954.3.579.2.5 93 1964 Unknown [id number] 2.16.840.1.910098.3.579.2.5 93 1964 Unknown [id number] 2.16.840.1.993071.3.579.2.5 93 1964 Unknown [id number] 2.16.840.1.387662.3.579.2.5 93 1964 Unknown [id number] 2.16.840.1.600909.3.579.2.5 93 1964 Unknown [id number] 2.16.840.1.472226.3.579.2.5 93 1964 Unknown [id number] 2.16.840.1.177161.3.579.2.5 93 1964 Unknown [id number] 2.16.840.1.937372.3.579.2.1 77 1964 Unknown [id number] 2.16.840.1.110953.3.579.2.1 259 1964 Unknown [id number] 2.16.840.1.599304.3.579.2.1 259 1964 Unknown [id number] 2.16.840.1.651941.3.579.2.1 259 1964 Unknown [id number] 2.16.840.1.961292.3.579.2.1 259 1964 Unknown [id number] 2.16.840.1.492890.3.579.2.1 259 1964 Unknown [id number] 2.16.840.1.442954.3.579.2.1 259 1964 Unknown [id number] 2.16.840.1.243379.3.579.2.1 259 1964 Unknown [id number] 2.16.840.1.399413.3.579.2.1 259 1960 Medicaid [id number] 1960 Medicare [id number] Medicaid Medicaid [id number] Medicare [id number] Medicare Medicare [id number] Unknown Keo [facility] PFFS [id number] Unknown [id number] .[id number] 31 Unknown [id number] .[id number] 31 Unknown [id number] .[id number] 31 Social History Date Type Detail Facility Tobacco smoking stat RUSTIS Unknown if ever smoked [facility] Work Phone: Start: 1965 Sex Assigned At Female [facility] Start: 12-28-2023 End: 05-01-2025 Sex Assigned At [facility] [employer] Other Start: 05-02-2023 End: 03-16-2024 Tobacco smoking status NHIS Ex-smoker (finding) [facility] End: 05-08-2016 History of tobacco use Current smoker [facility] End: 05-08-2016 History of tobacco use Cigarette Smoker [facility] Start: 12-28-2023 End: 10-03-2024 Alcoholic beverage intake Ex-drinker (finding) [facility] Start: 12-28-2023 End: 09-05-2024 History of Social function [facility] Start: 1965 Sex assigned at Not on file [facility] Start: 03-16-2024 End: 08-14-2024 Sex Female (finding) [facility] Start: 04-10-2024 Tobacco use and exposure Smokeless tobacco non-user [facility] Medical Equipment Procedure Code Equipment Code Equipment Origin al Text Equipment Identifier Dates Biopsy, breast, with lumpectomy Imaging lesion localization marker, implantable [id number] [facility] Start: 08-01-2023 Goals Date Patient Goal Desired Activity /State Clinical Notes 06-14-2022 to 10-03-2024 Gilson Kenyon DPM - 10/03/2024 1:50 PM EDTGilson Kenyon DPM - 09/05/2024 10:40 AM EDT Note Date & Type Note Facility 10-03-2024 History of Presen t illness Narrative Patient: Melony Manley : 1965 PCP: Susan Ayala MD SUBJECTIVE This is a 59 y.o. female that presents today 27 d s/p permanent nail avulsion with nail avulsion to the right hallux Pt states that they have been following all post op instructions and have been taking antibiotic as prescribed. Pt denies n/f/v/c and has negative pain at post op site. Pt states negative drainage from the postop site. Pt presents today for postoperative follow up. Patient also presents today for follow-up of dry skin and fissures to feet and has been using prescribed or recommended [id number] cream with improvement. Patient presents today with a CC of elongated, thick nails. Pt states nails have been elongated and thick for many years and cause pain with ambulation in shoegear. Pt has tried previous treatment with minimal relief. Pt presents today for nail care and treatment. Allergies: Allergies Allergen Reactions Penicillins Other Other Reaction(s): Swelling of Lip/Tongue/Throat Cephalosporins Other Reaction(s): Unknown Reaction Past Medical History: Past Medical History: Diagnosis Date Bipolar 1 disorder ([facility] Breast cancer ([facility] [facility]) 03/2023 Left Breast IDC ER/OH+ Her 2 pend Ear problems HL (hearing loss) Hyperlipidemia ([facility]) Hypothyroid ([facility]) Schizophrenia Medications: Current Outpatient Medications: alendronate (Fosamax) 70 MG tablet, PLEASE SEE ATTACHED FOR DETAILED DIRECTIONS, Disp: 12 tablet, Rfl: 0 busPIRone (Buspar) 5 MG tablet, Take by mouth 2 (two) times a day, Disp: , Rfl: glipiZIDE XL (Glucotrol XL) 5 MG 24 [...] AT NIGHT FOR SLEEP, Disp: , Rfl: ROS: General: denies fever, chills, fatigue, malaise GI: denies loose or watery stool on antibiotic OBJECTIVE LE EXAM: DERM: Negative erythema, negative drainage from the right hallux. diminished dry and scaly skin to bilateral feet Elongated thick crumbly nails digits 1 through 8 VASC: Palpable pedal pulses bilaterally NEURO: Gross sensation intact to bilateral feet ORTHO: Minimal pain on palpation to the right hallux Positive pain on palpation to toenails of the left 2,3,4,5 toes and right 2,3,4,5 toes ASSESSMENT 28 d s/p permanent nail avulsion to the right hallux 1. Xerosis cutis 2. Onychocryptosis 3. Toe pain, right 4. Pain due to onychomycosis of toenails of both feet PLAN Pt to d/c abx. Patient to continue with OTC oral anti - inflammatories as needed for pain. Pt to keep DSD on area of interest while in shoegear, otherwise may expose to air in a clean environment. Pt encouraged to continue with hydrating creams to feet with offer for medication and/or prescription refill. Discussed proper foot care with patient today. Debride nails in length and thickness digits 1 through 8 Gilson Kenyon DPM documented in this encounter [facility] 09-05-2024 History of Presen t illness Narrative Patient: Melony Manley : 1965 PCP: Susan Ayala MD SUBJECTIVE This is a 59 y.o. female that presents today with a CC of ingrowing right hallux toenail Pt states problem has been present for the past few weeks. Pt has noticed negative drainage to the affected area and states pain is achey in nature. Treatments have consisted of soaking and trying to remove the ingrown nail on their own with no relief. Patient has had longstanding issue with ingrowing nail and presents today for treatment Pt also presents today with secondary complaints of dry scaly skin to feet. Pt states that they have not been using OTC creams and lotions with minimal relief. Allergies: Allergies Allergen Reactions Penicillins Other Other Reaction(s): Swelling of Lip/Tongue/Throat Cephalosporins Other Reaction(s): Unknown Reaction Past Medical History: Past Medical History: Diagnosis Date Bipolar 1 disorder (CMS/HCC) Breast cancer (CMS/HCC) 03/2023 Left Breast IDC ER/OH+ Her 2 pend Ear problems HL (hearing loss) Hyperlipidemia (CMS/HCC) Hypothyroid (CMS/HCC) Schizophrenia Medications: Current Outpatient Medications: alendronate (Fosamax) 70 MG tablet, PLEASE SEE ATTACHED FOR DETAILED DIRECTIONS, Disp: 12 tablet, Rfl: 0 busPIRone (Buspar) 5 MG tablet, Take by mouth 2 (two) times a day, Disp: , Rfl: glipiZIDE XL (Glucotrol XL) 5 MG 24 [...] Use Smoking status: Former Current packs/day: 0.00 Average packs/day: 1 pack/day for 15.0 years (15.0 ttl pk-yrs) Types: Cigarettes Quit date: 2016 Years since quittin.3 Smokeless tobacco: Never Substance and Sexual Activity Alcohol use: Not Currently Drug use: Never Sexual activity: Not Currently Partners: Male control/protection: Abstinence Other Topics Concern Not on file Social [...] ROS: General: denies fever, chills, fatigue, malaise Gastrointestinal: denies abdominal pain, ulcers, or changes in appetite or bowel habits Musculoskeletal: denies arthritis, denies loss of strength, pain to hip, knees, back Cardiovascular: denies CP, palpitations, irregular rhythms OBJECTIVE LE EXAM: DERM: Positive erythema and negative drainage from the right hallux with hair growth noted to b/l feet. Dry and scaly skin noted to bilateral heels VASC: Palpable pedal pulsed b/l with warm to cool tibia to toes b/l NEURO: Gross sensation intact digits 1-10 and b/l feet ORTHO: Ankle ROM less than 10 degrees b/l. Positive pain on palpation to right hallux nail ASSESSMENT 1. Xerosis cutis 2. Onychocryptosis 3. Toe pain, right PLAN Patient education on condition and treatment of condition. Discussed application of hydrating cream to feet twice daily and to not place between toes and to apply prior to bed in evenings and to observe for any redness to feet or red streaks or drainage to feet. Patient to consider iygf-maq-ovimdgy treatments for medication or use of urea cream and prescription today was offered for Lac-Hydrin cream. Perfomed TPN avulsion to the right toenail. Informed pt of risks/ benefits of procedure including infection,reoccurance,pain, bleeding. Pt consents. 3cc of xylocaine 2% plain injected into the affected digit and tournicut applied to affected digit for 3 minutes. The affected toe was prepped/draped in a sterile manner and the offending nail border removed and 3 phenol applications of 30 seconds a peice to nail matrix. Alcohol flush applied and tournicut released with prompt hyperemic response. Patient was given a prescription for an antibiotic Gilson Kenyon DPM documented in this encounter [facility] 05-23-2024 Progress note [facility] enter 05-17-2024 Evaluation note Diagnosis Onset Date [...] May 24, 2024 1:23pm Wellness examination acute 2024 1:23pm Bacterial conjunctivitis of right eye acute June 11 8:41am [facility] Work Phone: 1(688) 402-293601-10-2025 Evaluation note* Diagnosis Onset Date Resolution Status Admit Date Sinusitis, acute maxillary acute May 17, 2024 [...] of right eye acute June 11 8:41am URI (upper respiratory infection) acute July 18, 2024 1:13pm Breast pain, left acute August 142024 11:21am Invasive ductal carcinoma of left breast acute August 14, 2024 11:21am Osteopenia acute August 14 11:21am [facility] Work Phone: 1(282) 870-750801-07-2025 Telephone encounter Note* Telephone Encounter - Christy Quick MD - 05/14/2024 4:18 PM EST Send discharge note [facility] [id number] Miscellaneous Notes* Telephone Encounter - Christy Quick MD - 05/14/2024 4:18 PM EST Send discharge note * Telephone Encounter - Nazia Quick - 05/14/2024 1:24 PM EST Called pt/explained about the importance of having the MRI and appt with Dr Quick, pt said she does not want to have it done or schedule any appts. * Telephone Encounter - Christy Quick MD - 05/14/2024 11:25 AM EST Advise patient she should still get the MRI because steroids can decrease swelling in a tumor that restores hearing, so having a tumor is not excluded by the hearing retuirning * Telephone Encounter - Nazia Quick - 05/14/2024 11:18 AM EST Pt called in to cancel her appts due to her hearing coming back. Pt was scheduled with audio, 's appt, and MRI. documented in this encounterNOJohn [facility]. [facility] [id number] Telephone encounter Note* Telephone Encounter - Nazia Quick - 05/14/2024 1:24 PM EST Called pt/explained about the importance of having the MRI and appt with Dr Quick, pt said she does not want to have it done or schedule any appts. [facility] [id number] Telephone encounter Note* Telephone Encounter - Christy Quick MD - 05/14/2024 11:25 AM EST Advise patient she should still get the MRI because steroids can decrease swelling in a tumor that restores hearing, so having a tumor is not excluded by the hearing retuirning [facility] [id number] Telephone encounter Note* Telephone Encounter - Naiza Quick - 05/14/2024 11:18 AM EST Pt called in to cancel her appts due to her hearing coming back. Pt was scheduled with audio, Dr's appt, and MRI. [id number] History of Present illness Narrative* Christy Quick MD - 04/10/2024 1:10 PM EST Subjective [...] Stomach cancer Mother Cecile Grady Cancer Mother Ceciel Grady Heart disease Father Cancer Maternal Grandmother Cecile Flores Diabetes Maternal Grandmother Cecile Mckenna Ison Colon cancer Neg Hx Breast cancer Neg Hx Ovarian cancer Neg Hx Active Ambulatory Problems Diagnosis Date Noted Malignant neoplasm of central portion of left breast in female, estrogen receptor positive (CMS/HCC) 05/19/2023 Abnormal mammogram 04/08/2024 Allergic rhinitis 04/08/2024 Breast pain, left 04/08/2024 Elevated fasting glucose 04/08/2024 GERD (gastroesophageal reflux disease) 04/08/2024 Hyperlipidemia (CMS/HCC) 04/08/2024 Invasive ductal carcinoma of left breast (CMS/HCC) 04/08/2024 Osteopenia 04/08/2024 Right acute otitis media 04/08/2024 Right arm pain 04/08/2024 Screening for colon cancer 04/08/2024 Stage 3 chronic kidney disease (HCC) (CMS/HCC) 04/08/2024 Type 2 diabetes mellitus with hyperglycemia (CMS/HCC) 04/08/2024 Resolved Ambulatory Problems Diagnosis Date Noted No Resolved Ambulatory Problems Past Medical History: Diagnosis Date Bipolar 1 disorder ([facility]) Breast cancer ([facility]) 03/2023 Ear problems HL (hearing loss) Hypothyroid ([facility]) Schizophrenia ([facility]) Past Surgical History: Procedure Laterality Date BREAST [...] Pain - numeric: 8/10 documented in this encounterCarondelet [id number] History of Present illness Narrative* ANDREW Rubio - 04/10/2024 1:00 PM EST History: Pt [...] 50 dBHL = 100% documented in this encounterCarondelet [id number] Evaluation note* Diagnosis Onset Date Resolution Status [...] 11:41am Osteopenia acute May 23, 2024 11:41am [facility] Work Phone: 1(994) 414-941811-09-2024 Evaluation note* Diagnosis Onset Date Resolution Status [...] May 24 1:23pm Wellness examination acute Ralf 2024 1:23pm [facility] Work Phone: 1(148) 454-157311-09-2024 Evaluation note* Diagnosis Onset Date Resolution Status [...] May 24 1:23pm Wellness examination acute Ralf 2024 1:23pm Bacterial conjunctivitis of right eye acute June 11 8:41am [facility] Work Phone: 1([phone]) 305-389910-31-2024 History of Present illness Narrative* Gilson Kenyon, IDALMIS - 03/07/2024 1:30 PM EDT Patient: [...] Breast cancer (CMS/HCC) 03/2023 Left Breast IDC ER/OH+ Her 2 pend Hyperlipidemia (CMS/HCC) Hypothyroid (CMS/HCC) [...] Types: Cigarettes Quit date: 2017 Years since quittin.8 Smokeless tobacco: Not on [...] condition and treatment of condition. Continue with tvkz-twq-rtfxxwp creams to feet p.r.n. Gilson Kenyon DPM documented in this [facility]10-15-2024 Evaluation note* Diagnosis Onset Date Resolution Status Admit Date Right arm pain acute February 192023 10:22am Type 2 diabetes mellitus wit h hyperglycemia acute February 19 10:22am Right acute otitis media acute March 16, 2024 9:09am Generalized body aches noneactive No vember 2023 9:09am Sore throat noneactive March 16, 2024 9:09am Breast pain, left acute Novem2023 10:25am Invasive ductal carcinoma of left breast acute March 22, 2 024 10:25am Osteopenia acute March 22, 2024 10:25am Right acute otitis media acute March 25, 2024 2:36pm [facility] Work Phone: 1([phone]) 746-744808-28-2024 Evaluation note* Diagnosis Onset Date Resolution Status [...] Sore throat noneactive March 16, 2024 9:09am [facility] Work Phone: 1(906) 989-898108-28-2024 Evaluation note* Diagnosis Onset Date Resolution Status [...] 10:25am Osteopenia acute March 22, 2024 10:25am [facility] Work Phone: 1(300) 193-397808-28-2024 Evaluation note* Diagnosis Onset Date Resolution Status [...] 16, 2024 9:09am Breast pain, left acute 2023 10:25am Invasive ductal carcinoma of left breast acute March 22, 2 024 10:25am Osteopenia acute March 22, 2024 10:25am [facility] Work Phone: 1([phone]) 254-148608-22-2024 History of Present illness Narrative* Gilson Kenyon, [...] Date Bipolar 1 disorder (CMS/HCC) Breast cancer ([facility]) 03/2023 Left Breast IDC ER/OH+ Her 2 pend Hyperlipidemia ([facility]/HCC) Hypothyroid ([facility]/HCC) Schizophrenia ([facility]) Medications: Current Outpatient Medications: alendronate (Fosamax) [...] condition and treatment of condition. Continue with tvci-mxm-rzqzvto creams to feet p.r.n. Gilson Kenyon DPM documented in this encounterCarondelet [id number] Chief complaint+Reason for visit Narrative* Chief Complaint [...] Invasive ductal carcinoma of left breast Osteopenia [facility] Work Phone: 1(807) 343-681107-30-2024 [facility]* Encounter Date Diagnosis Assessment Notes Treatment Notes Treatment Clinical Notes Mar, Invasive ductal carcinoma of left breast (ICD-10 - C50.912) Reviewed results. Grade 1. D/w daughter on speaker - phone. Appt made w Dr. García on 04/05 at 2pm. Path report and mamm reports sent to their office. [facility] Other 11-14-2023 Evaluation note* Encounter Date Diagnosis Assessment Notes Treatment Notes Treatment Clinical Notes Mar, Elevated triglycerides with high cholesterol (ICD-10 - E78.2) [facility] Other 11-03-2023 Evaluation note* Encounter Date Diagnosis [...] verbalized understanding and agreement with treatment plan. [facility] Other 10-02-2023 Evaluation note* Encounter Date Diagnosis Assessment Notes Treatment Notes Treatment Clinical Notes Feb, Abnormal mammogram of left breast (ICD-10 - R92.8) [facility] Other 10-02-2023 Evaluation note* Encounter Date Diagnosis Assessment Notes Treatment Notes Treatment Clinical Notes Feb, Elevated triglycerides with high cholesterol (ICD-10 - E78.2) Called pharmacy. They do not carry the med she is interested in the [place]. Changed rx and sent to [facility]. [facility] Other 08-23-2023 Evaluation note* Encounter Date Diagnosis Assessment Notes Treatment Notes Treatment Clinical Notes Dec, Elevated fasting glucose (ICD-10 - R73.01) Pt states Dr. Blanca is helping her wean the zyprexa. Will recheck labs listed below and return for OV in Apr. Dec, Hypothyroidism (ICD-10 - E03.9) Labs reviewed and normal. Continue present medication [facility] Other 05-09-2023 Evaluation note* Encounter Date Diagnosis Assessment Notes Treatment Notes Treatment Clinical Notes September, Skin candidiasis (ICD-10 - B37.2) Very mild erythema and discoloration. Recommend OTC Gold Valadez Powder. Call if not improving. [facility] Other 03-01-2023 Evaluation note* Encounter Date Diagnosis [...] w him from our last office visit. [facility] Other 02-07-2023 Evaluation note* Encounter Date Diagnosis Assessment Notes Treatment Notes Treatment Clinical Notes Jun, Acute vaginitis (ICD-10 - N76.0) New problem - sent culture for yeast/BV/trich. will call in 1-2 days when results are back. [employer] Other [place] complaint+Reason for visit Narrative* Chief Complaint NEW [...] Osteopenia Invasive ductal carcinoma of left breast [facility] Work Phone: evaluation noteNo assessment information available [facility] Work Phone: evaluation noteNo InformationNortSelect Specialty [facility] [employer] Other Evaluation note* Diagnosis Onset Date Resolution Status Hematoma of breast following procedure acute [facility] Work Phone: Evaluation note* Diagnosis Onset Date Resolution Status Hematoma of breast following procedure acute Allergic rhinitis acute GERD (gastroesophageal reflux disease) acute Hyperlipidemia acute [facility] Work Phone: evaluation note* Diagnosis Onset Date Resolution Status Hematoma of breast following procedure acute Allergic rhinitis acute GERD (gastroesophageal reflux disease) acute Hyperlipidemia acute Invasive ductal carcinoma of left breast acute Osteopenia acute [facility] Work Phone: Evaluation note* Diagnosis Onset Date Resolution Status Allergic rhinitis acute GERD (gastroesophageal reflux disease) acute Hyperlipidemia acute Invasive ductal carcinoma of left breast acute Osteopenia acute Screening for colon cancer a cute Type 2 diabetes mellitus with hyperglycemia acute Invasive ductal carcinoma of left breast acute Osteopenia acute [facility] Work Phone: Evaluation note* Diagnosis Onset Date Resolution Status Invasive ductal carcinoma of left breast acute Osteopenia acute Screening for colon cancer a cute Type 2 diabetes mellitus with hyperglycemia acute Invasive ductal carcinoma of left breast acute Osteopenia acute Invasive ductal carcinoma of left breast acute [facility] Work Phone: Evaluation note* Diagnosis Onset Date Resolution Status Screening for colon cancer a cute Type 2 diabetes mellitus with hyperglycemia acute Invasive ductal carcinoma of left breast acute Osteopenia acute Invasive ductal carcinoma of left breast acute Invasive ductal carcinoma of left breast acute Osteopenia acute [facility] Work Phone: Evaluation note* Diagnosis Onset Date Resolution Status Invasive ductal carcinoma of left breast acute Osteopenia acute Invasive ductal carcinoma of left breast acute Invasive ductal carcinoma of left breast acute Osteopenia acute Invasive ductal carcinoma of left breast acute [facility] Work Phone: Evaluation note* Diagnosis Onset Date Resolution Status Invasive ductal carcinoma of left breast acute Osteopenia acute Invasive ductal carcinoma of left breast acute Invasive ductal carcinoma of left breast acute Osteopenia acute [facility] Work Phone: Evaluation note* Diagnosis Onset Date Resolution Status Invasive ductal carcinoma of left breast acute Osteopenia acute Invasive ductal carcinoma of left breast acute Invasive ductal carcinoma of left breast acute Osteopenia acute Right arm pain acute [facility] Work Phone: Evaluation note* Diagnosis Pain [...] pain, bilateral [facility] encounter [facility]* Diagnosis Xerosis cutis- Primary Other specified disease of sebaceous glands Onychocryptosis Ingrowing nail Toe pain, right Pain in soft tissues of limb documented in this [facility]* Diagnosis Xerosis cutis- Primary Other specified disease of sebaceous glands Onychocryptosis Ingrowing nail Toe pain, right Pain in soft tissues of limb Pain due to onychomycosis of toenails of both feet documented in this [facility]* Diagnosis Onset Date Resolution Status Admit Date Chronic kidney disease, stag e 3 unspecified acute February 03, 2025 9:49am Hyperlipidemia acute February 03, 2025 9:49am Hypothyroidism acute February 03, 2025 9:49am Type 2 diabetes mellitus wit h hyperglycemia acute February 03, 2025 9:49am [facility] Work Phone: History and physical note Author Lisa Rubalcava [facility] December 05, 2023 7:53am Note Date/Time December 05, 2023 7:[address] [facility] [address] [place] [address] Gastroenterology H&P Signed Patient: Melony Manley MR#: [id number] : 1965 Acct:[id number] Age/Sex: 58 / F Adm Date: 4 Loc: Room: Type: [facility] Attending Dr: Lisa Rubalcava [...] Rubalcava DO Documented By: Lisa Rubalcava DO 12/05/23751 Signed By: <Electronically signed by Lisa Rubalcava DO> 12/05/23 0753 [facility] Work Phone: History general Narrative - Reported* Type Description Date Medical History Gastroesophageal ref lux disease, esophagitis presence not specified Medical History Bipolar 1 disorder, depressed Medical History Acquired hypothyroidism Medical History Hypercholesterolemia Medical History BMI 28.0-28.9,adult Medical History Hypothyroidism Medical History Chronic kidney disease, stage 3 unspecified Medical History Elevated fasting glucose Medical History Pain of right upper arm Medical History Elsberry use Medical History Vaginal atrophy Surgical History tubal ligation 2016 Surgical History wisdom teeth Surgical History CATARACT EXTRACTION- LEFT 01/25 17 Surgical History DETACHED RETINE REPAIR (LEFT) 0 06/2021 Surgical History CATARACT EXTRACTION- RIGHT 02/06 017 Hospitalization History SEE SURGICAL HX [facility] Other Hospital Discharge instructions Additional Instructions DISCHARGE [...] directed for pain unless a prescription was provided.[facility] Work Phone: Hospital Discharge instructions Additional [...] directed for pain unless a prescription was provided.[facility] Work Phone: Progress note Author Christine Velazquez [facility] December 21, 2023 10:26am Note Date/Time December 21, 2023 9: 55am [facility] [place] [address] Cancer Center Note Signed Patient: Melony Manley MR#: [id number] : 1965 Acct:[id number] Age/Sex: 58 / F Type: REG AMB Date of Service: 12/21/23 Copies to: Susan Ayala MD~ Assessment & Plan A/P (1) Invasive ductal carcinoma of left breast: (2) Osteopenia: Eugenio Ty is a 58-year-old nice lady with a stage IIa, pT1b, PN 1, MX left breast centrally located invasive ductal carcinoma with 1+ out of 4 lymph node for invasive cancer. ER/OH reported from the 03/20/2023 core biopsy to be ER 100% positive, PER 60% positive and HER2 manolo 2+ by IHC, negative by FISH, Ki 67 low 5%. Surgical pathology report is not dictating the status of the ER, OH and HER2/manolo. Initial consult for medical oncology on 09/21/2023: We went over her new diagnosis of new left breast invasive ductal carcinoma, stage IIa, and we went over and discussed possible options of treatment based on the ER, OH and HER2/manolo status considering that she has [...] She had DEXA scan in 07/2022 at [facility]. 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 She will need screening mammogram as well every july. For her mild chronic thrombocytopenia, it may be related to Elsberry and Seroquelbut will check Iron studies, B12 [...] is reported in the surgeon note as ER/OH positive and HER2/manolo pending however there are [...] not report any status of the ER, OH and HER2/manolo, however Dr. García note to dictate that patient was ER/OH positive and HER2/manolo was pending. Left breast [...] nipple 08/01/23 Lumpectomy path: Pathological Diagnosis A. Raymond node, left axilla, biopsy: Metastatic carcinoma to [...] Examined (sentinel and non-sentinel): 4 Number of Raymond Nodes Examined: 4 pTNM CLASSIFICATION (AJCC 8th [...] it was ER positive on the percent, OH +60%, low Ki-67 of only 5%, HER2 [...] She had DEXA scan in 07/2022 at [facility]. It revealed osteopenia with Tscore [...] HER2/manolo and actual path report for the ER/OH status, possibly need Oncotype Dx testing to determine if she needs adjuvant chemotherapy. She will need adjuvant radiation. She will need adjuvant endocrine therapy if she is ER/OH positive. Intake Vitals/Pain Assessment 12/21/23 09:56 Height [...] for the last 6 days. [facility] Medical History Medical History Diabetes Osteopenia Invasive ductal carcinoma of left breast Left breast cancer with T3 tumor, >5 cm in greatest dimension Ingrown right greater toenail removed Ingrown left greater toenail removed Fibrocystic breast determined by biopsy Vaginal atrophy Elsberry use Elevated fasting glucose Former smoker Depression [...] signed by Christine Velazquez MD> 12/21/23 1026 [facility] Work Phone: Progress note Author Gaurav Nathanter [facility] January 03, 2024 2:37pm Note Date/Time January 03, 2024 1: 58pm [facility] [place] [address] Cancer Center Note Signed Patient: Melony Manley MR#: [id number] : 1965 Acct:[id number] Age/Sex: 58 / F Type: REG AMB Date of Service: 01/03/24 Copies to: Susan Ayala MD~ Assessment & Plan (1) Invasive ductal carcinoma of left breast: Plan: Return to clinic as needed Assessment: 58-year-old female with [id number] invasive ductal carcinoma of the left breast, grade 2, ER/OH positive HER2 negative. Patient has undergone lumpectomy [...] carcinoma, provisional grade 1, with DCIS. Strongly ER/OH positive HER2 was equivocal 2+ There is [...] margin was less than 1 mm posteriorly. Raymond lymph node biopsy showed macrometastasis and 1 of 4 lymph nodes size of the largest manjit metastatic deposit was 4 mm. There was extranodal extension present 2 mm or less. [id number] 08/29/2023 return to OR for reexcision, no [...] Measures Taken: Patient in chair [facility] Medical History Medical History Diabetes Osteopenia Invasive ductal carcinoma of left breast Left breast cancer with T3 tumor, >5 cm in greatest dimension Ingrown right greater toenail removed Ingrown left greater toenail removed Fibrocystic breast determined by biopsy Vaginal atrophy Elsberry use Elevated fasting glucose Former smoker Depression [...] <Electronically signed by Gaurav Jaime MD> 01/03/24 1439 [facility] Work Phone: Progress note Author Christine Velazquez [facility] Note Date/Time May 23, 2024 1 2:13pm [facility] [place] [address] Cancer Center Note Signed Patient: Melony Manley MR#: [id number] : 1965 Acct:[id number] Age/Sex: 59 / F Type: REG AMB [...] of 4 lymph node for invasive cancer. ER/OH reported from the 03/20/2023 core biopsy to be ER 100% positive, PER 60% positive and HER2 manolo 2+ by IHC, negative by FISH, Ki 67 low 5%. Surgical pathology report is not dictating the status of the ER, OH and HER2/manolo. Initial consult for medical oncology on 09/21/2023: We went over her new diagnosis of new left breast invasive ductal carcinoma, stage IIa, and we went over and discussed possible options of treatment based on the ER, OH and HER2/manolo status considering that she has [...] She had DEXA scan in 07/2022 at [facility]. It revealed osteopenia with Tscore [...] recurrence, which she would like done at [place]. We will call with results. Otherwise she [...] bone density scan was in 07/2022 at [facility],next one will be 07/2024. She will need screening mammogram as well every March. For her mild chronic thrombocytopenia, it may be related to Elsberry and Seroquelbut will monitor her CBC, CMP, [...] is reported in the surgeon note as ER/OH positive and HER2/manolo pending however there are [...] not report any status of the ER, OH and HER2/manolo, however Dr. García note to dictate that patient was ER/OH positive and HER2/manolo was pending. Left breast [...] nipple 08/01/23 Lumpectomy path: Pathological Diagnosis A. Raymond node, left axilla, biopsy: Metastatic carcinoma to 1 lymph node, out of 4 lymph nodes identified (1/) B. Mass, left posterior, lumpectomy - Invasive [...] Examined (sentinel and non-sentinel): 4 Number of Raymond Nodes Examined: 4 pTNM CLASSIFICATION (AJCC 8th [...] it was ER positive on the percent, OH +60%, low Ki-67 of only 5%, HER2 [...] She had DEXA scan in 07/2022 at [facility]. It revealed osteopenia with Tscore [...] labs for review. Taking Letrzole. [facility] Medical History Medical History Diabetes Osteopenia Invasive ductal carcinoma of left breast Left breast cancer with T3 tumor, >5 cm in greatest dimension Ingrown right greater toenail removed Ingrown left greater toenail removed Fibrocystic breast determined by biopsy Vaginal atrophy Elsberry use Elevated fasting glucose Former smoker Depression [...] 11:05/15/24 Total Bilirubin 0.5 mg/dL (0.2-1.0) 05/15/24 11:05/15/24 AST 27 U/L (15-37) 05/15/24 11:05/15/24 ALT 38 U/L (14-59) 05/15/24 11:05/15/24 Alkaline Phosphatase 105 U/L (46-116) 05/15/24 11:05/15/24 Total Protein 7.4 g/dL (6.4-8.2) 05/15/24 11:05/15/24 Albumin 4.0 g/dL (3.4-5.0) 05/15/24 11:00 05/15/24 Lactate Dehydrogenase 154 U/L (81-234) 05/15/24 11:00 05/15/24 Dictated By: Christine Velazquez MD DD/ [id number] Signed By: <Electronically signed by Christine Velazquez MD> 05/23/24 1213 [facility] Work Phone: Reason for referral (narrative)No reason for referral information availableMercy Health [facility] Hospital Work Phone: Advance Directives Advance Directive [...] Relationship Condition Age at Onset Recorded Date/T everarod mother Malignant neoplasm of stomach Unknown Unknown Malignant neoplasm Unknown father Heart disease Unknown Hypertension Unknown Reason for Referral Reason I called and made ap pt - 04/05 2pm. We are faxing path result. Diagnosis 1 Invasive ductal carc inoma of left breast (C50.912) Referral Organization [facility] Referring Provider First Name Susan Referring Provider Last Name Jamie Referring Provider Specialty Family [facility] Referred Organization [facility] Referred Provider Geraldo García Referred Address ,[place], [place],[address] Referred Provider Specialty Surgery Referral Priority Routine [...] cancer Runny Nose/ Sore Throat Breast Cancer NEW breast cancer referral to gastro breast [...] BH f/u moved up from 01/02 per 8/8 triage Left breast cancer Med Onc/Rad Onc Follow Up 1 Month Reason for Visit Invasive ductal carc inoma of left breast Osteopenia Invasive ductal carcinoma of left breast Invasive ductal carcinoma of left breast Osteopenia Invasive ductal carcinoma of left breast Chief Complaint Left breast cancer Left breast cancer Screening Screening Amb Documentation f/u moved up from 01/02 per 8/8 triage Med Onc/Rad Onc Follow Up 1 Month Follow Up Left breast cancer Reason for Visit Invasive ductal carc inoma of left breast Osteopenia Invasive ductal carcinoma of left breast Invasive ductal carcinoma of left breast Osteopenia Chief Complaint Left breast cancer Screening Screening Amb Documentation f/u moved up from 01/02 per 8/8 triage Med Onc/Rad Onc Follow [...] 0:22am Type 2 diabetes mellitus with hyperglyce [facility] February 20, 2024 10:22am Right acute [...] 0:22am Type 2 diabetes mellitus with hyperglyce [facility] February 20, 2024 10:22am Right acute [...] 10:38am UC follow up, not feeling better [facility] 2023 2:36pm Reason for Visit Admit Date [...] not feeling better Novembe r 2023 2:36pm April 16, 2024 12:53pm Cough/COVID- May 17, 2024 1 1:14am Reason for Visit Admit Date Right arm pain February 20, 2024 1 0:22am Type 2 diabetes mellitus with hyperglyce [facility] February 20, 2024 10:22am Right acute [...] UC follow up, not feeling better Novembe 2023 2:36pm BH May 14, 2024 12 [...] of right eye Fe bruary 2024 8:41am Chief Complaint Admit Date Cough/COVID- May [...] of right eye Fe bruary 2024 8:41am Chief Complaint Admit Date Cough/COVID- May 17, 2024 1 1:14am Follow Up May 23, 2024 1 1:41am Left breast cancer May 23, 2024 1 1:42am well adult May 24, 2024 1 :23pm pink eye June 11, 2024 8 :41am BH July 16, 2024 1:0 0pm sinus congestion July 18, 2024 1:1 3pm Follow Up after DEXA August 14, 2024 11: 21am Reason for Visit Admit Date Sinusitis, acute [...] of right eye Fe bruary 2024 8:41am URI (upper respiratory infection) July 18, 2024 1:13pm Breast pain, left August 14, 2024 11:2 1am Invasive ductal carcinoma of left breast August 14, 2024 11:21am Osteopenia August 14, 2024 11:2 1am Chief Complaint Admit Date Recheck Kidneys/Check Up February 03, 2025 9:49am Reason for Visit Admit Date Chronic kidney disease, stage 3 unspecif ied February 03, 2025 9:49am Hyperlipidemia February 03, 2025 9:49am Hypothyroidism February 03, 2025 9:49am Type 2 diabetes mellitus with hyperglyce [facility] February 03, 2025 9:49am Additional Source Comments Care Teams (unrecognized sec [...] End: July 18, 2024 Sofi Watson APRN BRILLIANDEER LOOPERZuleikaC Attending Provider Act manish Start: July 18, 2024 End: July 18, 2024 Team Status: Active Member Role Status Dates Susan Ayala MD Primary Care Provide r, Attending Provider Active Start: August 02, 2024 Team Status: Inactive Member Role Status Dates Susan Ayala MD Primary Care Provider Active Start: August 14, 2024 End: August 14, 2024 Christine Velazquez MD Attending Provider Active Start: August 14, 2024 End: August 14, 2024 Team Status: Active Member Role Status [...] End: March 16, 2024 BELLE Hdez RN BRILLIANDEER LOOPER-C Attending Provider Active Start: March 16, 2024 [...] Start: December 05, 2023 Lisa Rubalcava , Attending Provider, Other Provider Active Start: December [...] Care Provider Active Start: January 03, 2024 [facility] Jose Luis Velazquez MD Attending Provider Active Start: January [...] Attending Provider Active Start: December 04, 2023 Clinical Auditor Relationship Specialty Start Date End Date Susan Ayala MD [address] [place] [facility] [place] [id number] PCP - General Family Medicine 03/15/23 Clinical Auditor Relationship Specialty Start Date End Date Susan Ayala MD [address] [place] [facility] [place] [phone] PCP - General Family Medicine 03/15/23 Team [...] March 25, 2024 End: March 25, 2024 Clinical Auditor Relationship Specialty Start Date End Date Susan Ayala MD [address] [place] [facility] [place] [phone] PCP - General Family Medicine 03/15/23 Clinical Auditor Relationship Specialty Start Date End Date Susan Ayala MD [address] [place] [facility] [place] [phone] PCP - General Family Medicine 03/15/23 Clinical Auditor Relationship Specialty Start Date End Date Susan Ayala MD [address] [place] [facility] [place] [address] PCP - General Family Medicine 03/15/23 Clinical Auditor Relationship Specialty Start Date End Date Susan Ayala MD [address] [place] [facility] [place] [address] PCP - General Family Medicine 03/15/23 Clinical Auditor Relationship Specialty Start Date End Date Susan Ayala MD [address] [place] [facility] [place] [address] PCP - General Family Medicine 03/15/23 Team Status: Active Member Role Status Dates Gavin Plaza MD Attending Provider Active Start: April 16, 2024 Team Status: Active Member Role Status Dates Gavin Plaza MD Attending Provider Active Start: May 14, 2024 Clinical Auditor Relationship Specialty Start Date End Date Susan Ayala MD [address] [place] [facility] [place] [address] PCP - General Family Medicine 09/05/24 Clinical Auditor Relationship Specialty Start Date End Date Susan Ayala MD [address] [place] [facility] [place] [address] PCP - General Family Medicine 09/05/24 Clinical Auditor Relationship Specialty Start Date End Date Susan Ayala MD [address] [place] [facility] [place] [phone] PCP - General Family Medicine 09/05/24 Clinical Auditor Relationship Specialty Start Date End Date Susan Ayala MD [address] [place] [phone] PCP - General Family Medicine 09/05/24 Team Status: Inactive Member Role Status Dates Susan Ayala MD Primary Care Provider Active Start: February 03, 2025 End: February 03, 2025 Susan Ayala MD Attending Provider Active St art: February 03, 2025 End: February 03, 2025 Goals (unrecognized section and content) Goals may [...] Non DM Nails Reason Comments Otitis Media Reason Comments Toenail Problem Rt gt nail falling o fff Reason Comments Follow-up 28D S/P PERM INFORMATION SOURCE (unrecogn ized section and content) DATE CREATED AUTHOR 09/02/2022 [facility] DATE CREATED AUTHOR AUTHOR'S ORGANIZ ATION 07/07/[address] [facility] DATE CREATED AUTHOR AUTHOR'S ORGANIZ ATION 10/05/2024 [facility] EPIC DATE CREATED AUTHOR AUTHOR'S ORGANIZ ATION 10/20/2024 [facility] FOR RECORDS PERTAINING [...] BE BASED ON THE PRIMARY CLINICAL RECORDS. [facility] [employer] [facility]. provides no warranty or guarantee of the accuracy or completeness of information in this document.
[2025-02-11 11:43] LABS: Hematocrit 39.9 % (36.0-48.0); Hemoglobin 12.8 g/dL (12.0-16.0); Immature Granulocytes Abs Auto 0.01 10^3/uL (0.00-0.03); Immature Granulocytes Pct Auto 0.2 % (0.0-0.5); Lymphocytes Absolute Auto 1.0 10^3/uL (1.2-3.8); Mean Corpuscular HGB Conc 32.1 g/dL (29.9-35.2); Mean Corpuscular Hemoglobin 28.4 pg (26.7-34.0); Mean Corpuscular Volume 88.7 fL (81.0-99.0); Platelet Count 106 10^3/uL (150-450); Red Blood Count 4.50 10^6/uL (4.20-5.40); White Blood Count 5.0 10^3/uL (4.0-11.0)
[2025-02-11 12:20] LABS: Alanine Aminotransferase 32 U/L (14-59); Albumin Globulin Ratio 1.0; Albumin Level 3.8 g/dL (3.4-5.0); Alkaline Phosphatase 88 U/L (46-116); Anion Gap 18.0; Aspartate Amino Transferase 27 U/L (15-37); Blood Urea Nitrogen 10.0 mg/dL (7.0-18.0); Calcium 9.5 mg/dL (8.5-10.1); Carbon Dioxide 23.8 mmol/L (21.0-32.0); Chloride 107 mmol/L (98-107); Estimated GFR (African America >60 (>=60 mL/min/1.73m^2); Estimated GFR (Non-African Ame >60 (>=60 mL/min/1.73m^2); Globulin 3.9 g/dL; Glucose 136 mg/dL (74-106); Potassium 3.8 mmol/L (3.5-5.1); Sodium 145 mmol/L (136-145); Total Protein 7.7 g/dL (6.4-8.2)
== END 2025-02-11 11:00 | disposition home or self-care (01) ==
LOC: LAB 11:02
PROVIDERS: PCP Family Medicine; Visit Provider Internal Medicine
DX: C50.919 Malignant neoplasm of unspecified site of unspecified female breast (principal)
CPT/HCPCS: 36415; 80053; 85025

== ENCOUNTER 2025-02-25 09:29 | Outpatient (OUT) | payer MEDICARE, MEDICAID, SELFPAY ==
--- OUTSIDE RECORDS SUMMARY | 2025-02-12 06:51 | XMS_ITS | Continuity of Care Document ---
Author Organization [facility] Address [address] [place] [address] Phone Care Team Providers Care Casework Manager Name Role Phone Alexia Raya MD Primary Care Provider Alexia Raya MD Attending Provider Jose Luis Velazquez Attending Provider Unavailable Christine Velazquez MD Attending Provider Rafael Velazquez DO Referring Provider Care Teams Patient Care Team Team Status: Active Member Role Status Dates Alexia Raya MD Primary Care Provider Active Visit Care Team Team Status: Inactive Member Role Status Dates Alexia Raya MD Primary Care Provider Active Start: February 03, 2025 End: February 03, 2025Yuridia Ling ProviderActiveStart: February 03, 2025 End: February 03, 2025 Patient Care Team Team Status: Active Member Role Status Dates Jose Luis Velazquez Attending Provider Active Start : February 11, 2025 Shaan Ling Care ProviderActiveStart: February 11, 2025 Visit Care Team Team Status: Active Member Role Status Dates Alexia Raya MD Primary Care Provider Active Start: February 12, 2025 Yuridia Curtis ProviderActiveStart: February 12, 2025 Caterina Alexandre ProviderActiveStart: February 12, 2025 Patient Care Team Team Status: Inactive Member Role Status Dates Alexia Raya MD Primary Care Provider Active Start: February 12, 2025 End: February 12, 2025Mhd Jose Luis Velazquez MDAttending ProviderActiveStart: February 12, 2025 End: February 12, 2025 Chief Complaint and Reason for Visit Chief Complaint Admit Date Recheck Kidneys/Check Up February 03, 2025 9:49am Left breast cancer February 12, 2025 10 :17am Follow Up 6 Months February 12, 2025 10 :19am Reason for Visit Admit Date Bipolar disorder, unspecified February 03, 2025 9:49am Chronic kidney disease, stage 3 unspecif ied February 03, 2025 9:49am Hyperlipidemia February 03, 2025 9:49am Hypothyroidism February 03, 2025 9:49am Invasive ductal carcinoma of left breast February 03, 2025 9:49am Type 2 diabetes mellitus with hyperglyce mustapha February 03, 2025 9:49am Breast pain, left February 12, 2025 10 :19am Invasive ductal carcinoma of left breast February 12, 2025 10:19am Osteopenia February 12, 2025 10 :19am Allergies, Adverse Reactions, Alerts Allergen Type Severity [...] Legal Sex Female (finding) Sex Assigned At BirthFemaleSept1964 Family History Relationship Condition Age at Onset Recorded Date/T everardo mother Malignant neoplasm of stomach Unknown DeceasedUnknownMalignant neoplasmUnknownfatherHeart diseaseUnknownDeceased UnknownHypertensionUnknown Problems Active Problems Medical Problem Onset Date Status Comments Right acute otitis media Unknown Active Elevated fasting glucoseUnknownActiveHematoma of breast following procedure UnknownActiveScreening for colon cancerUnknownActiveType 2 diabetes mellitus with hyperglycemiaUnknownActiveSinusitis, acute maxillaryUnknownActiveBacterial conjunctivitis of right eyeUnknownActiveBreast pain, leftUnknownActiveURI (upper respiratory infection)UnknownActiveChronic kidney disease, stage 3 unspecified UnknownActiveBipolar disorder, unspecifiedUnknownActiveWellness examination UnknownActiveHyperlipidemiaUnknownActiveHypothyroidismUnknownActiveRight arm painUnknownActiveOsteopeniaUnknownActiveBreast cancerUnknownActiveleftInvasive ductal carcinoma of left breastUnknownActiveGERD (gastroesophageal reflux disease)UnknownActiveAllergic rhinitisUnknownActive Medications Medication Status Dose Units Route Directions Qty Days St art Date Stop Date End Date Instructions Adherence Levothyroxine 75 mcg tablet Discontinued 0 .ROUTE.PVUIXXB89Izhbe 2023 8:47amJune 2023 8:37amTAKE 1 TABLET BY MOUTH EVERY DAY IN THE MORNING ON EMPTY STOMACH FOR 90 DAYSGlipizide 5 mg tablet extended release 46eqOpzvzyhqbyia3BEOUHeecj53Bsjk 2023 9:49pmSeptember 2023 1:14pmRosuvastatin 20 mg tabletDiscontinued0.ROUTE.GYYZMDP63Fpmm 2023 8:37amOctober 2023 8:28amTAKE 1 TABLET BY MOUTH EVERY EVENING Omeprazole 40 mg capsule,delayed release(DR/EC)Discontinued0.ROUTE.HEFKOYX10Rion 2023 8:37amOctober 2023 8:28amTAKE 1 CAPSULE BY MOUTH EVERY MORNING Levothyroxine 75 mcg tabletDiscontinued0.ROUTE.WCNBXHL75Bstk 2023 8:37am February 19, 2024 10:36pmTAKE 1 TABLET BY MOUTH EVERY DAY IN THE MORNING ON EMPTY STOMACH FOR 90 DAYSMometasone 0.1 % nqivwDynvyzmdnfne3DIPHPTHQIEVZIPezrp48 November 03, 2023 12:00amAugust 2023 9:58amApply to radiation site, once a day, AFTER radiation treatments.Glipizide 5 mg tablet extended release 24hr Discontinued0.ROUTE.ZRVTEJG01Pbrgfxeuu 3rd, 2024 1:14pmOctober 2023 11:11amTAKE 1 TABLET BY MOUTH EVERY DAYRosuvastatin 20 mg tabletDiscontinued0 .ROUTE.EMZOGHP10Fsyygli 2023 8:28amSeptember 2024 8:25amTAKE 1 TABLET BY MOUTH EVERY EVENINGOmeprazole 40 mg capsule,delayed release(DR/EC)Active0 .ROUTE.QCMZHFP57Qlczqxo 2024 8:28amTAKE 1 CAPSULE BY MOUTH EVERY MORNING Complies with drug therapyLevothyroxine 75 mcg tabletDiscontinued0.ROUTE.COMPLEX 90Oct2023 10:36pmMarch 2024 8:30amTAKE 1 TABLET BY MOUTH EVERY DAY IN THE MORNING ON EMPTY STOMACH FOR 90 DAYSLetrozole 2.5 mg tablet Discontinued2.2IDMJRpixq30Rqwjbyq 16th, 2024 2:59pmSeptember 2024 3:21pm Gabapentin (Neurontin) 300 mg kcctgtdIhbeazjmbmot560RBVKQavul at ymqkrvj72 February 21, 2024 12:00amNovember 2023 10:17amAzelastine (Astepro Allergy) 205.5 mcg (0.15 %) spray,non-nrooiliUpczcyoycunz8NZJYINICFOCFGBYZrcix83Eizcorhd 2023 12:38pmOctober 2024 10:25amadminister into each nostril Doxycycline Monohydrate 100 mg jnxlgaIioqkhuboasc037WREMTmtvo impfn032Xtasr 2024 12:00amOctober 2024 10:26amLevothyroxine 50 mcg tablet Discontinued0.ROUTE.WZNDTIT50Dwhrf 2024 8:29amSeptember 2024 8:44am TAKE 1 TABLET BY MOUTH EVERY DAY IN THE MORNING ON EMPTY STOMACH FOR 90 DAYS Gabapentin 300 mg capsuleDiscontinued0.ROUTE.TSTLRPJ50Dka 2024 3:52pm January 13, 2025 9:04amTAKE 1 CAPSULE BY MOUTH AT BEDTIMELevothyroxine 50 mcg tabletActive0.ROUTE.OOAOJUF00Shlxoejhd 3rd, 2025 8:44amTAKE 1 TABLET BY MOUTH EVERY DAY IN THE MORNING ON EMPTY STOMACH FOR 90 DAYSComplies with drug therapy Gabapentin 300 mg capsuleActive0.ROUTE.BYELPFZ88TpuuxzfllJanuary 13, 2025 9:04amTAKE 1 CAPSULE BY MOUTH AT BEDTIMEComplies with drug therapyRosuvastatin 20 mg tablet Active0.ROUTE.CJSFLIN23Ndxlibhry 29th, 2025 8:25amTAKE 1 TABLET BY MOUTH EVERY EVENINGComplies with drug therapyLetrozole 2.5 mg tabletActive0.ROUTE.BZZUTRI19 February 03, 2025 3:21pmTAKE 1 TABLET BY MOUTH DAILYComplies with drug therapyAcetaminophen-Codeine 300-30 mg hshoiwGikfqhwzqvvh2NBLNSGopdo 6 hours as needed for mtmt722Ttxyz 2023 12:00amApril 2023 10:44amTrazodone 50 mg qgedgxIdywxlmxicxu93EJKIVincnmeViem 2023 12:00amNovember 2023 10:16am Buspirone 5 mg lhtnkqMaqhje2VDPIRqsey dailyJuly 2023 12:00amComplies with drug therapyAlendronate 70 mg aolfvlKevqkeiyskje80TANBnxwzw weekDece2022 1:00amApril 2023 10:45amwednesdayQuetiapine 200 mg zfqgrbYnsbub603CTIJ Every eveningDece2022 1:00amComplies with drug therapyOlanzapine 10 mg htlcutIsmaryqwpgmk00AXCUUspwu eveningce2022 1:00amMarch 2023 3:36pmOmeprazole 40 mg capsule,delayed release(DR/EC)Befitcvrcjii07NAMB Every morningDece2022 1:00amApril 2023 10:51amLithium Carbonate 450 mg tablet extended ifalupoIfydqq529DVKNFgafp eveningcemb2022 1:00amComplies with drug therapyLevothyroxine 75 mcg ingdpjMiurhhzvrwkr94HYFLU Every morningce2022 1:00amApril 2023 8:47amRosuvastatin 20 mg drswtaLucsierhytkr17FBEMPvjxg eveningDecemb2022 1:00amApril 2023 10:51amAscorbic Acid (Vitamin C) (Vitamin C) 500 mg XbyyzsZmlyis613HINGCkrwz morningDecemb2022 1:00amComplies with drug therapyIbuprofen 600 mg coduxhUoyofsaxstse467GQJDWDFUI 4-6 HOURS as needed for ludh803Sacjv 2023 12:00amJuly 2023 8:07amdo not exceed 4 doses in a 24 hour periodBuspirone 5 mg cdcpyrOkxtwwcpsjfj8AIOHYfaoaBjmmf 2023 1:00amMarch 2023 3:36pm Trazodone 50 mg aiodjsJwwzeltamgmb50QLRKWjjpwIwccx 2023 1:00amMarch 2023 3:36pmOmeprazole 40 mg capsule,delayed release(DR/EC)Fhorwidkdgzx58HEQG Every nguedca90Lvdie 2023 10:51amJune 2023 8:37amRosuvastatin 20 mg imueqdIfctzeooxhdo68SLTCQkuon rwmaqsi13Ggtls 2023 10:51amJune 2023 8:37amCholecalciferol (Vitamin D3) 25 mcg (1,000 unit) vopunjuJphxtlhetdlc67LVS PODailyOctbaptist health [facility] 2023 12:00amNovember 2023 10:18amCalcium Carbonate (Calcium 500) 500 mg calcium (1,250 mg) tablet,yqcznngyDgopdr667RAWIZueykBunlqde 2023 12:00amComplies with drug therapyLetrozole 2.5 mg tabletDiscontinued 2.5MGPODailyOctbaptist health [place] 2023 12:00amOctober 2023 2:59pmCholecalciferol (Vitamin D3) 25 mcg (1,000 unit) bpdrtvuThswve32RHQNHRchkiSkuciopi 2023 10:17amComplies with drug therapyGabapentin 300 mg rwqkkmkSrnmrmphdcnh523PQHS Daily at cblumst73UqseovfMay 23, 2024 1:00amMay 2024 3:52pmDoxycycline Monohydrate 100 mg vvxdrqyIcjyzjaoqsoi236FFMOPacba uwzxx381Trdmbmce 9th, 2024 1:00amJanuary 2024 12:20pmSulfamethoxazole-Trimethoprim 800-160 mg tablet Ovxoiatlrpue4ATNZAPetuo surry23Cqmccbb2024 1:00amApril 2024 11:30am Biotin 10,000 mcg capsuleActiveMCGPOOctober 2024 12:00amComplies with drug therapyFerrous Sulfate 140 mg (45 mg iron) tablet extended foxnwysKcwanh792XFRT Every 48 hoursOctober 2024 12:00amComplies with drug therapyMecobalamin (Vitamin B12) 500 mcg tablet,chewableActiveMCGPOOctober 2024 12:00am Complies with drug therapyAlendronate 70 mg thsczbHawdlp72QKMObwhae weekSeptember 21, 2023 12:00amComplies with drug therapyLetrozole (Femara) 2.5 mg tablet Discontinued2.9CPLVBmnmh87Tiqs 2023 12:00amAugust 2023 10:24am Glipizide 5 mg tablet extended release 17duXklxjvtdomfh8KGXTXncka13Kmw 2023 12:00amJune 2023 9:49pmTamoxifen 20 mg pavdutPozfurzzwtel47UPOSWucwp 30August 2023 12:002023 1:59pmVenlafaxine (Effexor Xr) 37.5 mg capsule,extended release 62lbWhekiadtphnw32.7SNKWMxbwg59Ktarkj 2023 12:00amA2023 1:59pmAzelastine (Astepro Allergy) 205.5 mcg (0.15 %) spray,non-fgqpkvwSzzwarevpjvw3NSZHEMCBMPWAECRPvbwm19Tivxjoak 2023 1:00am April 22, 2024 12:38pmadminister into each nostrilCiprofloxacin Hcl 0.3 % bzofhZcttecvfjiyd3VQNBGRAVSB.ARNMOPP9Sewzxhmv 2024 1:00amOctober 2024 10:26amput 1-2 drps in affected eye(s) every 2hr up to 8 times/day x2days; then 4 times/day x5days Eye-Both Immunizations Immunization Event Date Not Given Reason Dose Number Dining Room Server Lot Number Vaccine Information Statement (VIS) Detail Administration Location COVID-19 mRNA, Comirnaty (Elevaate) August 07 COVID-19 mRNA, Comirnaty (Pfizer)August 27OVID-19 mRNA, Comirnaty (Elevaate)April 20OVID- mRNA Bivalent Booster (Elevaate)February 28, 2022 Medical Equipment Device Date Implanted Device Details Imaging lesion localization marker, implantable August 01, 2023 MARLENY: [id number] Issuing Agency: [employer] Device Id: [id number] Expiration Date: 2025-05-20 Lot Number: [id number] Relevant Diagnostic Tests and/or Laboratory Data Laboratory Results Test Collection Date/Time Result Date/Time Result Interpretation Reference Range Result Comment Performing Site Urine Random Creatinine February 03, 2025 10:57am February 03, 2025 10:57am 19.36 mg/dL Below low normal 20.00-300.00 Thyroid Stimulating Hormone 3rd GenSeptember 2024 11:07amSeptember 2024 11:07am3.128 u[iU]/mL0.358-3.740Cholesterol/HDL RatioSeptember 2024 11:07amSeptember 2024 11:07am3.13.3 - 4.4 LOW RISK4.4 - 7.1 AVERAGE RISK7.1 - 11.0 MODERATE RISK>11.0 HIGH RISKAnion GapSeptember 2024 11:07am February 03, 2025 11:07am15.1Free ThyroxineSeptember 2024 11:07am February 03, 2025 11:07am0.89 ng/dL0.76-1.46Estimated Average Glucose February 03, 2025 11:07amSeptember 2024 11:30vx172 mg/dLBasophils # (Auto)February 11, 2025 11:29amOctober 2024 11:29am0.0 10 3/uL0.0-0.1Anion GapOctb[facility]ist health [facility] 2024 11:29amOctober 2024 11:29am18.0Urine Random MicroalbuminSeptember 2024 10:57amSeptember 2024 10:57am<1.3 mg/dL <=30.0Cholesterol LevelSeptember 2024 11:07amSeptember 2024 11:07am 133 mg/dL<=200Albumin/Globulin RatioSeptember 2024 11:07amSept2024 11:07am1.1Hemoglobin X5pGevifsrqk 2024 11:07amSeptember 2024 11:07am6.5 %Above high normal4.5-6.2ADA RECOMMENDED LIMIT 4.0 - 6.0ADA THERAPEUTIC TARGET < 7.0ACTION SUGGESTED> 7.0Basophils (%) (Auto)February 11, 2025 11:29amOctober 2024 11:29am0.4 %0.2-2.0Albumin/Globulin RatioOct2024 11:29amOct2024 11:29am1.0HDL CholesterolSeptember 2024 11:07amSeptember 2024 11:07am43 mg/dL40-60> or =60 mg/dl - LOW CARDIOVASCULAR RISK<40 mg/dl - HIGH CARDIOVASCULAR RISKAlbuminSeptember 2024 11:07amSeptember 2024 11:07am4.1 g/dL3.4-5.0Eosinophils # (Auto) February 11, 2025 11:29amOct2024 11:29am0.0 10 3/uL0.0-0.7Albumin February 11, 2025 11:29amOct2024 11:29am3.8 g/dL3.4-5.0LDL Cholesterol, CalculatedSeptember 2024 11:07amSeptember 2024 11:07am 41.0 mg/dL<100 mg/dl MGSOYFC261-507 mg/dl NEAR OR ABOVE JYTBJQN270-565 mg/dl BORDERLINE XAGM640-373 mg/dl HIGH>190 mg/dl VERY HIGHAlkaline Phosphatase February 03, 2025 11:07amSeptember 2024 11:75ha388 U/N39-481Lofsrgcbpwq (%) (Auto)February 11, 2025 11:29amOct2024 11:29am0.0 %Below low normal0.9-7.0Alkaline PhosphataseOct2024 11:29amOctober 2024 11:29am88 U/U26-883Rqhraurgufmlc LevelSeptember 2024 11:07amSept2024 11:11vm725 mg/dLAbove high normal<=150Alanine Aminotransferase (ALT/SGPT)February 03, 2025 11:07amSeptember 2024 11:07am38 U/L14-59 HematocritOctober 2024 11:29amOctober 2024 11:29am39.9 %36.0-48.0 Alanine Aminotransferase (ALT/SGPT)February 11, 2025 11:29amOctober 2024 11:29am32 U/D13-91HKKQ CholesterolSeptember 2024 11:07amSeptember 2024 11:07am49.4 mg/dLAspartate Amino Transf (AST/SGOT)February 03, 2025 11:07amSeptember 2024 11:07am24 U/G59-19NiaqwsxfolEkplfas 7th, 2025 11:29amOctober 2024 11:29am12.8 g/dL12.0-16.0Aspartate Amino Transf (AST/SGOT)February 11, 2025 11:29amOctober 2024 11:29am27 U/L15-37 BUN/Creatinine RatioSeptember 2024 11:07amSeptember 2024 11:07am12.5 Immature Granulocyte # (Auto)February 11, 2025 11:29amOctober 2024 11:29am 0.01 10 3/uL0.00-0.03BUN/Creatinine RatioOctober 2024 11:29amOctober 2024 11:29am12.7Blood Urea NitrogenSeptember 2024 11:07amSeptember 2024 11:07am10.0 mg/dL7.0-18.0Immature Granulocyte % (Auto)February 11, 2025 11:29amOctober 2024 11:29am0.2 %0.0-0.5Blood Urea NitrogenOctober 2024 11:29amOctober 2024 11:29am10.0 mg/dL7.0-18.0Calcium LevelSeptember 2024 11:07amSeptember 2024 11:07am9.7 mg/dL8.5-10.1Lymphocytes # (Auto) February 11, 2025 11:29amOct2024 11:29am1.0 10 3/uLBelow low normal 1.2-3.8Calcium LevelOct2024 11:29amOct2024 11:29am9.5 mg/dL 8.5-10.1Chloride LevelSeptember 2024 11:07amSeptember 2024 11:07am 106 mmol/J09-131Ianuwtxxmwd (%) (Auto)February 11, 2025 11:29amOct2024 11:29am20.0 %Below low .5-60.0Chloride LevelOct2024 11:29am February 11, 2025 11:80yz771 mmol/U29-690Epqnvx Dioxide LevelSeptember 2024 11:07amSeptember 2024 11:07am25.9 mmol/L21.0-32.0Mean Corpuscular HemoglobinOct2024 11:29amOct2024 11:29am28.4 pg26.7-34.0 Carbon Dioxide LevelOct2024 11:29amOctober 2024 11:29am23.8 mmol/L21.0-32.0CreatinineSeptember 2024 11:07amSeptember 2024 11:07am0.80 mg/dL0.55-1.02Mean Corpuscular Hemoglobin ConcentOct2024 11:29amOct2024 11:29am32.1 g/dL29.9-35.2CreatinineOct2024 11:29amOct2024 11:29am0.79 mg/dL0.55-1.02Estimated GFR ()February 03, 2025 11:07amSept2024 11:07am>60>=60 mL/min/1.73m 2Mean Corpuscular VolumeOct2024 11:29amOct2024 11:29am88.7 fL81.0-99.0Estimated GFR ()February 11, 2025 11:29am February 11, 2025 11:29am>60>=60 mL/min/1.73m 2Estimated GFR (Non- AmericanSeptember 2024 11:07amSeptember 2024 11:07am>60>=60 mL/min/1.73m 2Monocytes # (Auto)February 11, 2025 11:29amOctober 2024 11:29am0.4 10 3/uL0.3-0.8Estimated GFR (Non- AmericanOct2024 11:29amOctober 2024 11:29am>60>=60 mL/min/1.73m 2GlobulinSeptember 2024 11:07amSeptember 2024 11:07am3.8 g/dLMonocytes (%) (Auto)February 11, 2025 11:29amOctober 2024 11:29am7.6 %1.7-12.0GlobulinOctober 2024 11:29amOctober 2024 11:29am3.9 g/dLGlucose LevelSeptember 2024 11:07amSeptember 2024 11:28ah165 mg/dLAbove high rxedsd35-368Lqdg Platelet VolumeOct2024 11:29amOctober 2024 11:29am9.9 fL9.5-13.5Glucose LevelOctober 2024 11:29amOctober 2024 11:24vk213 mg/dLAbove high rxmvve96-650Rraevolqo LevelSeptember 2024 11:07amSeptember 2024 11:07am4.0 mmol/L3.5-5.1Neutrophils # (Auto)February 11, 2025 11:29amOctober 2024 11:29am3.6 10 3/uL1.4-6.5Potassium LevelOctober 2024 11:29am February 11, 2025 11:29am3.8 mmol/L3.5-5.1Sodium LevelSeptember 2024 11:07amSeptember 2024 11:80dz611 mmol/X503-206Edeskgmlrkp (%) (Auto) February 11, 2025 11:29amOctober 2024 11:29am71.8 %43.0-75.0Sodium Level February 11, 2025 11:29amOctober 2024 11:08vi280 mmol/V951-306Zcmeu BilirubinSeptember 2024 11:07amSeptember 2024 11:07am0.3 mg/dL 0.2-1.0Platelet CountOct2024 11:29amOctober 2024 11:53ep795 10 3/uLBelow low lvhooq662-849Lzqwr BilirubinOct2024 11:29amOctober 2024 11:29am0.3 mg/dL0.2-1.0Total ProteinSeptember 2024 11:07amSeptember 2024 11:07am7.9 g/dL6.4-8.2Red Blood CountOct2024 11:29amOctober 2024 11:29am4.50 10 6/uL4.20-5.40Total ProteinOctober 2024 11:29am February 11, 2025 11:29am7.7 g/dL6.4-8.2Red Cell Distribution WidthFebruary 11, 2025 11:29amOctober 2024 11:29am14.5 %11.0-15.0Corrected White Blood Count February 11, 2025 11:29amOctober 2024 11:29am5.0 10 3/uL4.0-11.0 Vital Signs Vital Reading Result Reference Range Collection Date/Time Height 64 [in_i] February 03, 2025 10:87tcEmekgh69.39 kgSeptember 2024 10:00amHeart Rate 74 /ysa21-533Kmavdnugp 2024 10:00amBP Hgqrwils695 mm[Hg]100-140September 2024 10:00amBP Whmxtjswn05 mm[Hg]60-100September 2024 10:00amBMI (Body Mass Index)26.2 kg/r2Xrlvmvzql 2024 10:31shJqlfhj65 [in_i]May 23, 2024 12:06kmPhihwd66.85 kgOctober 2024 10:89diTxmxoq16.85 kgOctober 2024 10:29amHeart Rate92 /nkp97-315Ydtbmzu 2024 10:29amRespiratory rate16 /pls52-82Pfdchop 2024 10:29amOxygen saturation by Pulse yyuhrrwl17 % 95-100October 2024 10:29amBP Bvjjkjdh283 mm[Hg]100-140October 2024 10:29amBP Jqtuogmgw70 mm[Hg]60-100October 2024 10:29am Advance Directives Advance Directive Response Recorded Date/ Time Advance Directives No March 16, 2024 10:07am Insurance Providers Guarantor Melony Laws Address [address] [facility] [address]Pvqkkod Info.Home Phone: Payer Policy Id Subscriber's Name Subscriber Id Effectiv e Date Expiration Date Medicaid [id number] Melony Veto [id number] [id number] [id number] Melony [id number] Encounters Encounter Location(s) Arrival/Admit Date Discharge/Depart Date Provider(s) Departed Physician/Prov ider Office Visit -[facility] February 03, 2025 9:49am February 03, 2025 10:38am Alexia Raya MD Non-patient / Non-visit -[facility] ctober 2024 11:29am Mhd Jose Luis VelazquezRegistered Recurring-Cancer [place] AcuteOctober 2024 10:17amMSASHA Salvadoreparted Physician/Provider Office Visit-[facility] AmbulatoryOctober 2024 10:19amOctober 2024 10:50amMshaila Mtz MD Recent Diagnosis Onset Date Admit Date Bipolar disorder, unspecified Unknown Se ptember 2024 9:49am Chronic kidney disease, stage 3 unspecified Unkn own February 03, 2025 9:49am Hyperlipidemia Unknown February 03, 2025 9:49am Hypothyroidism Unknown February 03, 2025 9:49am Invasive ductal carcinoma of left breast Unknown February 03, 2025 9:49am Type 2 diabetes mellitus with hyperglycemia Unkn own February 03, 2025 9:49am Breast pain, left Unknown February 12, 2 025 10:19am Invasive ductal carcinoma of left breast Unknown February 12, 2025 10:19am Osteopenia Unknown February 12 10:19am Assessments Diagnosis Onset Date Resolution Status Admit Date Bipolar disorder, unspecified acuteSeptember 2024 9:49amChronic kidney disease, stage 3 unspecifiedacute February 03, 2025 9:49amHyperlipidemiaacuteSeptember 2024 9:49am HypothyroidismacuteSept2024 9:49amInvasive ductal carcinoma of left breastacuteSept2024 9:49amType 2 diabetes mellitus with hyperglycemiaacuteSept2024 9:49amBreast pain, leftacuteOctober 2024 10:19amInvasive ductal carcinoma of left breastacuteOctober 2024 10:19amOsteopeniaacuteOctober 2024 10:19am Plan of Treatment Author Christine Velazquez [facility]ored[facility] 2024 10:43amBcosta is a 58-year-old nice lady with a stage IIa, pT1b, pN1, MX left breast centrally located invasive ductal carcinoma with 1+ out of 4 lymph node for invasive cancer. ER/WA reported from the 03/20/2023 core biopsy to be ER 100% positive, PER 60% positive and HER2 manolo 2+ by IHC, negative by FISH, Ki 67 low 5%. Surgical pathology report is not dictating the status of the ER, WA and HER2/manolo. Initial consult for medical oncology on 09/21/2023: We went over her new diagnosis of new left breast invasive ductal carcinoma, stage IIa, and we went over and discussed possible options of treatment based on the ER, WA and HER2/manolo status considering that she has 1 positive lymph node. At this point it is important to obtain the pathology report of the hormone receptor and HER2 receptor status before identifying the treatment plan. She will definitely need adjuvant radiation therapy regardless of the status of those results however the determination about chemotherapy now versus Oncotype DX to [...] She had DEXA scan in 07/2022 at [facility]. It revealed osteopenia with T score -0.6 Since the Oncotype DX score is [...] recurrence, which she would like done at [place]. We will call with results. Otherwise she [...] than normal range and LFTs are normal. 08/14/24: She is here for 3 months follow up for her history of breast cancer while taking Femara adjuvant endocrine therapy currently. Her outside labs at [facility] on 08/02/2024 revealed hemoglobin 13.0 with normal WBC 8.9 and platelet 144,000. Creatinine is 1.1 with normal electrolytes and normal liver function tests. And calcium level came back 9.5 normal at this time She only gets minimal host flashes and no joint pain or swelling or any other complaints. She is taking her Femara daily, fosamax once a week, calcium alternating bid and daily and vit D 2000 units daily. She had a bone density scan on 08/02/2024 which revealed osteopenia with a T- score of -1.9 in the right trochanteric femoral neck. 02/12/25: She is here for 6 months FU for history of breast cancer, currently on adjuvant Femara. Here for toxicity monitoring and lab results. She only gets minimal host flashes and no joint pain or swelling or any other complaints. She is taking her Femara daily, fosamax once a week, calcium alternating bid and daily and vit D 2000 units daily. She is also being monitored for thrombocytopenia related to lithium and Seroquel. Labs on 02/11/2025 revealed normal CBC with differential except the platelet count of 106 which is lower than before as it has been ranging 115-146. Rest of the CBC with differential are unremarkable. And CMP unremarkable as well normal renal function. Normal thyroid function back in January 2025 Plan: Continue Femara for 5-10 years. Femara started in December 2023. Continue gabapentin 300 mg at bedtime. Continue Fosamax once a week. Continue alternating calcium 500 mg bid with once daily. Continue vitamin D 2000 units daily. Next Bone density scan in July 2026. Return in 6 months with [facility], and CMP prior. Order screening mammogram for March 2025. For her mild chronic thrombocytopenia, Her platelet antibodies came back negative and therefore her thrombocytopenia is most likely related to [place] and Seroquel but will monitor her CBC, CMP. Author Alexia Raya [facility] HospitalAuthoredSeptember 2024 1:16pmcheck labs. continue crestor. check labs, continue levothyroxine check labs. Take medication as prescribed, keep follow up appointments, get any testing that's been ordered done in a timely fashion. Do not smoke. Call if any questions or problems.For Diabetes: Patient is advised to work on healthy diet choices and appropriate servings, weight control, regular exercise as directed, and reduce fat intake. Check home blood sugars as directed. Check feet regularly to be sure no sores or numbness are developing. Call if low sugar reactions occur, and be aware that lower sugars may happen with increased exercise. continue letrozole and followup w oncology continue care/ meds through Dr. Blanca. Also addressed questions of DNR status. Pt states she doesn't want to continue life on a ventilator, so she was prepared to be a DNR. I respected that, but cautioned that marking DNR CC or CCA means they would be unable to provide CPR, short term ventilation or chest compressions should she need it. Pt states she will think about her options further. Future Tests Future scheduled test information is unavailable Pending Tests Test Name Ordered Date Scheduled Date Comprehensive Metabolic Panel February 12, 2025 10:45am 6 Months MM screening mammo BI w/CAD February 12, 2025 10 :45am 1 Months Comprehensive Metabolic Panel February 03 10:27am Future Visits Future appointment information is unavailable Referrals to Other Providers Referral information is unavailable Future Procedures Procedure Name Ordered Date Scheduled Date Complete Blood Count Auto Diff February 12, 2025 10:45am 6 Months Lipid Panel February 03, 2025 10:27am Thyroid Stim Hormone w/RflxSept2024 10:27am Future Medications Future medication information is unavailable Patient Instructions Patient instructions are unavailable Progress Note Author Christine TeixeiraPillobrian [facility] HospitalNote Date/TimeOctober 2024 10:49am [facility] [place] [address] Cancer Center Note Signed Patient: Melony Laws MR#: [id number] : 1965 Acct:[id number] Age/Sex: 60 / F Type: REG AMB Date of Service: 02/12/25 Copies to: Alexia Raya MD~ Assessment & Plan A/P (1) Invasive ductal carcinoma of left breast: (2) Osteopenia: (3) Breast pain, left: Plan Melony is a 58-year-old nice lady with a stage IIa, pT1b, pN1, MX left breast centrally located invasive ductal carcinoma with 1+ out of 4 lymph node for invasive cancer. ER/WA reported from the 03/20/2023 core biopsy to be ER 100% positive, PER 60% positive and HER2 manolo 2+ by IHC, negative by FISH, Ki 67 low 5%. Surgical pathology report is not dictating the status of the ER, WA and HER2/manolo. Initial consult for medical oncology on 09/21/2023: We went over her new diagnosis of new left breast invasive ductal carcinoma, stage IIa, and we went over and discussed possible options of treatmentbased on the ER, WA and HER2/manolo status considering that she has 1 positive lymph node. At this point it is important to obtain the pathology report of the hormone receptor and HER2 receptor status before identifying the treatment plan. She will definitely needadjuvant radiation therapy regardless of the status of those results however thedetermination about chemotherapy now versus Oncotype DX todecide if she needs chemotherapy and followed by endocrine therapy will be determined once the pathology report is available. - Her Oncotype Dx score 10/06/23 came back 17 with only 15% chance of recurrence at 9 years with useof AI or Tamoxifen alone. No benefit from adding adjuvant chemo and therefore, no need for adjuvantchemotherapy. She will need adjuvant radiation. She will need adjuvant endocrine therapy for 5-10 years. She had DEXA scan in 07/2022 at [facility]. It revealed osteopenia with Tscore [...] drenching sweats and severe hot flashes and jointpain mainly in the left ankle after 1 [...] recurrence, which she would like done at [place]. We will call with results. Otherwise she [...] than normal range and LFTs are normal. 08/14/24: She is here for 3 months follow up for her history of breast cancer while takingFemara adjuvant endocrine therapy currently. Her outside labs at [facility] on 08/02/2024 revealed hemoglobin 13.0 withnormal WBC 8.9 and platelet 144,000. Creatinine is 1.1 with normal electrolytesand normal liver function tests. And calcium level came back 9.5 normal at thistime She only gets minimal host flashes and no joint pain or swelling or any other complaints. She is taking her Femara daily, fosamax once a week, calcium alternating bid and daily and vit D 2000 units daily. She had a bone density scan on 08/02/2024 which revealed osteopenia with a T- score of -1.9 in the right trochanteric femoral neck. 02/12/25: She is here for 6 months FU for history of breast cancer, currently on adjuvant Femara. Here for toxicity monitoring and lab results. She only gets minimal host flashes and no joint pain or swelling or any other complaints. She is taking her Femara daily, fosamax once a week, calcium alternating bid and daily and vit D 2000 units daily. She is also being monitored for thrombocytopenia related to lithium and Seroquel. Labs on 02/11/2025 revealed normal CBC with differential except the platelet count of 106 which is lower than before as it has been ranging 115-146. Rest ofthe CBC with differential are unremarkable. And CMP unremarkable as well normalrenal function. Normal thyroid function back in January 2025 Plan: Continue Femara for 5-10 years. Femara started in December 2023. Continue gabapentin 300 mg at bedtime. Continue Fosamax once a week. Continue alternating calcium 500 mg bid with once daily. Continue vitamin D 2000 units daily. Next Bone density scan in July 2026. Return in 6 months with CBCD, and CMP prior. Order screening mammogram for March 2025. For her mild chronic thrombocytopenia, Her platelet antibodies came back negative and therefore herthrombocytopenia is most likely related to [place] and Seroquel but will monitor her CBC, CMP. Orders: Orders Complete Blood Count Auto Diff 6 Months C50.912 - Malignant neoplasm of unspecified site of left female breast MM screening mammo BI w/CAD 1 Month C50.912 - Malignant neoplasm of unspecifiedsite of left female breast Comprehensive Metabolic Panel 6 Months C50.912 - Malignant neoplasm of unspecified site of left female breast Patient Instructions: screening mamm in March cbc,cmp in 6 months follow up in 6 months CHEMO PLAN No Active Chemotherapy History of Present Illness BEN Ty is a 58 year old white female with history of osteopenia, Fibrocyctic breat disease, who was referred to our medical oncology office by Dr. Velazquez for a new left breast invasive ductal carcinoma in the center of the left breastthat is reported in the surgeon note as ER/WA positive and HER2/manolo pending however there are [...] of the breast revealed suspicious findings on theleft breast patient was taken to lumpectomy on 08/01/2019 for and the lumpectomy pathology report revealed invasive ductal carcinoma with positive posterior margin but negative other margins and 1 outof 4 sentinel lymph nodes was positive for invasive cancer. The pathology report does not report any status of the ER, WA and HER2/manolo, however Dr. Velazquez note to dictate that patient was ER/WA positive and HER2/manolo was pending. Left breast biopsy 05/16/23: Pathological Diagnosis Left breast mass at 6:00 (2 cm from nipple), ultrasound???guided core biops: - Benign breast parenchyma featuring [...] nipple 08/01/23 Lumpectomy path: Pathological Diagnosis A. [place] node, left axilla, biopsy: Metastatic carcinoma to [...] with Micrometastases - 0 Size of Largest Ketan Metastatic Deposit - 4 mm Extranodal Extension - Present, 2 mm or less Total Number of Lymph Nodes Examined (sentinel and non-sentinel): 4 Number of [place] Nodes Examined: 4 pTNM CLASSIFICATION (AJCC 8th [...] on 08/29/2023 which revealed no residual invasive canceror other malignancies detected then. 2nd surgery pathology [...] it was ER positive on the percent, WA +60%, low Ki-67 of only 5%, HER2 was 2+ by HC but negative by FISH. Her Oncotype Dx score 10/06/23 came back 17 with only 15% chance of recurrence at9 years with use ofAI or Tamoxifen alone. No benefit from adding adjuvant chemoand therefore, no need for adjuvant chemotherapy. She will need adjuvant radiation. She will need adjuvant endocrine therapy for 5-10 years. She had DEXA scan in 07/2022 at [facility]. It revealed osteopenia with Tscore [...] and severe hot flashes and joint pain mainlyin the left ankle after 1 week. She does not want to start it again 02/15/24: She is here for toxicity check while on Femara and fosamax fr her breast cancer and osteopenia. [place] self breast exam and she denied any [...] her left breast right around her nipplearea intermittentlyover the last 3 weeks. Can be days in between when it comes on, and is pretty random when she gets it. No other associated symptoms Has been fatigued a lot recently. Denies shortness of breath. Unsure if this pain is breast pain orchest pain- is deeper in her chest area [...] now to be muscular in nature. Otherwise nobone pain no numbness, tingling, vision changes, or [...] than normal range and LFTs are normal. 08/14/24: She is here for 3 months follow up for her history of breast cancer while takingFemara adjuvant endocrine therapy currently. Her outside labs at [facility] on 08/02/2024 revealed hemoglobin 13.0 withnormal WBC 8.9 and platelet 144,000. Creatinine is 1.1 with normal electrolytesand normal liver function tests. And calcium level came back 9.5 normal at thistime She only gets minimal host flashes and no joint pain or swelling or any other complaints. She is taking her Femara daily, fosamax once a week, calcium alternating bid and daily and vit D 2000 units daily. She had a bone density scan on 08/02/2024 which revealed osteopenia with a T- score of -1.9 in the right trochanteric femoral neck. 02/12/25: She is here for 6 months FU for history of breast cancer, currently on adjuvant Femara. Here for toxicity monitoring and lab results. She only gets minimal host flashes and no joint pain or swelling or any other complaints. She is taking her Femara daily, fosamax once a week, calcium alternating bid and daily and vit D 2000 units daily. She is also being monitored for thrombocytopenia related to lithium and Seroquel. Labs on 02/11/2025 revealed normal CBC with differential except the platelet count of 106 which is lower than before as it has been ranging 115-146. Rest ofthe CBC with differential are unremarkable. And CMP unremarkable as well normalrenal function. Normal thyroid function back in January 2025 Intake Vitals/Pain Assessment 02/12/25 10:29 Weight 69.853 kg BP 132/77 Blood Pressure Location Rt brachial Position Sitting Pulse 92 Pulse Source NIBP Respiration 16 Pulse Oximetry (%) 97 Oxygen Delivery Method room air Are you having pain? No Intake Visit Reasons: Follow Up 6 Months Allergies Penicillins Allergy (Severe, Verified 02/03/25 10:03) Swelling of Lip/Tongue/Throat Cephalosporins Allergy (Unknown, Verified 02/03/25 10:03) Unknown Reaction Home Medications - Last Reconciled 02/12/25 by JOHNY Almendarez alendronate 70 mg PO QWEEK ascorbic acid (vitamin C) (Vitamin C) 500 mg PO QAM biotin mcg PO buspirone 5 mg PO BID calcium carbonate (Calcium 500) 500 mg PO DAILY cholecalciferol (vitamin D3) 50 mcg PO DAILY ferrous sulfate ER 140 mg PO Q48HR gabapentin TAKE 1 CAPSULE BY MOUTH AT BEDTIME letrozole TAKE 1 TABLET BY MOUTH DAILY levothyroxine TAKE 1 TABLET BY MOUTH EVERY DAY IN THE MORNING ON EMPTY STOMACH FOR 90 DAYS lithium carbonate ER 450 mg PO QPM mecobalamin (vitamin B12) mcg PO omeprazole TAKE 1 CAPSULE BY MOUTH EVERY MORNING quetiapine 200 mg PO QPM rosuvastatin TAKE 1 TABLET BY MOUTH EVERY EVENING Gastrointestinal Is the patient taking opioids for pain control?: No Bowel Protocol for Opioids Given: No Bowel Pattern: Regular Bowel Movement Aid(s): None Nurse's Note: Patient is here for a 6 month follow up with labs for review. Taking Letrozole. No concerns voiced at time of intake. [facility] Medical History Medical History Diabetes Osteopenia Invasive ductal carcinoma of left breast Left breast cancer with T3 tumor, >5 cm in greatest dimension Ingrown right greater toenail removed Ingrown left greater toenail removed Fibrocystic breast determined by biopsy Vaginal atrophy [place] use Elevated fasting glucose Former smoker Depression [...] products do you use: cigarettes Smoking quit date/years:<= 15 years ago Nicotine containing products detail: [...] Cancer Ctr (Med Onc) LAB RESULTS Corrected WBC, (4.0-11.0) 5.0 10 3/uL 02/11/25, 11:2 9 Hgb, (12.0-16.0) 12.8 g/dL 02/11/25, Hct, (36.0-48.0) 39.9 % 02/11/25, MCV, (81.0-99.0) 88.7 fL 02/11/25, : RDW, (11.0-15.0) 14.5 % 02/11/25, Plt Count, (150-450) 106 10 3/uL L 02/11/25, Sodium, (136-145) 145 mmol/L 02/11/25, : Potassium, (3.5-5.1) 3.8 mmol/L 02/11/25, BUN, (7.0-18.0) 10.0 mg/dL 02/11/25, : Creatinine, (0.55-1.02) 0.79 mg/dL 02/11/25, : Glucose, (74-106) 136 mg/dL H 02/11/25, : Calcium, (8.5-10.1) 9.5 mg/dL 02/11/25, : Total Bilirubin, (0.2-1.0) 0.3 mg/dL 02/11/25, : AST, (15-37) 27 U/L 02/11/25, : ALT, (14-59) 32 U/L 02/11/25, : Alkaline Phosphatase, (46-116) 88 U/L 02/11/25, : Total Protein, (6.4-8.2) 7.7 g/dL 02/11/25, : Albumin, (3.4-5.0) 3.8 g/dL 02/11/25, Social Determinants of Health Screening Will the patient participate in the screening?: Yes In the past 12 months, have you had to go without electric, gas, oil, or water in your home?: No Have you or anyone in your house had to go without enough food to eat?: No Has lack of reliable transportation kept you from medical appointments or from doing things needed for daily living?: No Has anyone in your support network made you feel unsafe for any reason?: No Does the patient want assistance with any of the above?: No Dictated By: Christine Velazquez MD DD/ 1022 Signed By: <Electronically signed by Christine Velazquez MD> 02/12/25 1048
--- OUTSIDE RECORDS SUMMARY | 2025-02-25 09:34 | XMS_ITS | Clinical Summary ---
Author Organization [facility] Address [address], [address] [place] [address] Care Team Providers Care Automotive Repair Technician Name Role Phone Alexia Raya MD Primary Care Provider [phone] Social History Tobacco UseTypesPacks/DayYears UsedDateSmoking Tobacco: Never Assessed CommentsUnknownSex and Gender InformationValueDate RecordedSex Assigned at Not on fileLegal BrxYaitgb09/08/2013 7:41 PM ESTGender IdentityNot on fileSexual OrientationNot on file Plan of Treatment Health MaintenanceDue DateLast DoneCommentsDepression Yoiukf5802/01/1976HIV screen 01/31/1979Hepatitis C kocqpb6601/31/1982DTaP/Tdap/Td vaccine (1 - Tdap)01/31/1983 Pap smear01/31/1985Cervical cancer iiuhcm9801/31/1994HPV (without or with Pap) 01/31/19940114Xbfxulvnsvk48/26/2009Colorectal Cancer Kuuybs3801/31/2009FIT/FOBT: Average risk01/31/2009Fecal-DNA (Cologuard): Average risk01/31/2009 Sigmoidoscopy/CT zewzhihoppbm68/26/2009Pneumococcal 50+ years Vaccine (2 of 2 - PCV)Shingles vaccine (1 of 2)01/31/20142708Xtxfzz36/28/2016 08/02/2010, 02/03/2010nnual Wellness Visit (Medicare Advantage)05/08/2024Flu vaccine (#1), 01/23/2017, 02/22/2016COVID-19 Vaccine ( season)/, 04/20/2021, 08/27/2020, Additional history existsBreast cancer uywsuq46603/, 08/26/2022, 08/01/2022 Respiratory Syncytial Virus (RSV) or age 60 yrs+ (1 - 1-dose 75+ series)01/31/2039Pneumococcal 0-49 years MbemyhoAsrgugkannxm54/22/1997Hepatitis A vaccineAged OutNo longer eligible based on patient's age to complete this topicHepatitis B vaccineAged OutNo longer eligible based on patient's age to complete this topicHib vaccineAged OutNo longer eligible based on patient's age to complete this topicMeningococcal (ACWY) vaccineAged OutNo longer eligible based on patient's age to complete this topicMeningococcal B vaccineAged OutNo longer eligible based on patient's age to complete this topicPolio vaccineAged OutNo longer eligible based on patient's age to complete this topic Procedures Procedure NamePriorityDate/TimeAssociated DiagnosisCommentsLIPID PANELSTAT 08/02/2010 9:30 AM EDT from Last 3 Months or Most Recently Relevant to Health Maintenance Results * (ABNORMAL) LIPID PANEL (08/02/2010 9:30 AM EDT)ComponentValueRef RangeTest MethodAnalysis TimePerformed AtPathologist WlbnccqvvRswdljbqxzsbq055(H)<150 MG/DLCMHP KSLPivtcojncvx811(H)<200 MG/DLCMHP FMRXHU66(L)>60 MG/DLCMHP LABLDL Twyathuyty37<100 MG/DLCMHP LABSpecimen (Source)Anatomical Location / LateralityCollection Method / VolumeCollection TimeReceived Time08/02/2010 9:30 AM EDT08/02/2010 10:02 AM EDT Narrative [facility] LAB - 08/02/2010 1:13 PM EDT CALCULATED LDL IS ESTIMATED, NOT A TRUE MEASUREMENT, AND MAY NOT REFLECT ACTUAL LDL LEVEL. ?? CONSIDER ORDERING A DIRECT LDL OR LIPID PANEL WITH LDL. Performed @ [facility], [address] [place] [address] Authorizing ProviderResult TypeResult StatusLuz Griffin MDCHEMISTRY ORDERABLESFinal ResultPerforming OrganizationAddressCity/State/ZIP CodePhone Number [facility] from Last 3 Months or Most Recently Relevant to Health Maintenance Insurance Care Teams Team MemberRelationshipSpecialtyStart DateEnd Alexia Raya MD [address] [place] [phone] PCP - GeneralFamily Medicine05/25/23
--- OUTSIDE RECORDS SUMMARY | 2025-02-25 09:34 | XMS_ITS | Patient Health Record ---
Author Organization [facility] Address [address] [place] [address], [facility] [place] [address] Care Team Providers Care Administrative Medical Director Name Role Phone Sofi Yan Primary Care Provider Unavailable Juliano Granger [phone] Allergies Allergen (clinical drug ingredient) Drug/Non Drug Allergy documented on EMR Reaction Allergy Type Onset Date Status PenicillinUnknownDrug AllergyActive Reason For Referral No Information Medications Medication SIG (Take, Route, Frequency, Duration) Notes Start Date End Date Status Letrozole 2.5 MG Tablet Oral; Duration: 90 Days ActivebusPIRone HCl 5 MG TabletTAKE 1 TABLET BY MOUTH EVERYDAY AT BEDTIME Oral; Duration: 90 DaysActiveLithium Carbonate ER 450 MG Tablet Extended ReleaseTAKE 1 TABLET BY MOUTH EVERYDAY AT BEDTIME Oral; Duration: 90 DaysActiveRosuvastatin Calcium 20 MG TabletOral; Duration: 90 DaysActiveLevothyroxine Sodium 50 MCG TabletOral; Duration: 90 DaysActiveGabapentin 300 MG CapsuleTAKE 1 CAPSULE BY MOUTH AT BEDTIME Oral; Duration: 60 DaysActiveAlendronate Sodium 70 MG Tablet PLEASE SEE ATTACHED FOR DETAILED DIRECTIONS Oral; Duration: 84 DaysActiveCalcium ActiveVitamin J0BjunjeXopqfqnnke 40 MG Capsule Delayed Release1 capsule 1/2 to 1 hour before morning meal Orally Once a dayActive Social History Section Notes: Former smoker. No alcohol use. Former smoker. No alcohol use. Encounters [facility] [address] [address], [place] [address] [facility]/24/2024 Juliano Granger Cellulitis of left foot L03.116 ; Ingrown right big toenail L60.0 and Congenital tarsal coalition Q66.[address] [address], [facility] [place] [address] 01/10/2025 Juliano Granger Onychomycosis B35.1 ; Right [...] attention if symptoms worsen or redness spreads. 10/24/2024Ingrown right big toenail (ICD-10 - L60.0) Previous toenail removal due to thickening. No current pain or drainage. - Monitor for any signs of infection or drainage. - Residual nail and subungal debris easily removed without incident using a small nail nipper 01/10/2025Right foot pain (ICD-10 - M79.671)01/10/2025Onychomycosis (ICD-10 - B35.1)Patient was seen and evaluated. Patient education was [...] routine nailcare. No new x-rays are required. 01/10/2025Left foot pain (ICD-10 - M79.672)10/24/2024ongenital tarsal coalition (ICD-10 - Q66.89) Incidental finding [...] Insured Coverage Start Date Coverage End Date [facility] [address] [place] [address] [id number] Jorge Luis Lawself - patient is the insuredMedicaid of [address] [id number], BerniceSelf - patient is the insured Medical (General) History Medical History History ICD Code Breast Cancer DiabetesHigh CholesterolThyroid IssuesSlow Healing ProblemsSurgical History Surgery Date(Month/Year) Tubal Ligation 1984 Laproscopic Surgery 1997 Right and Left Cataract 2016 Left Retina 2019 Left Breast Lumpectomy 2023
--- OUTSIDE RECORDS SUMMARY | 2025-02-25 09:34 | XMS_ITS | Clinical Summary ---
Author Organization [facility] Address [address] [place] [address] Phone Care Team Providers Care President Educational Institution Name Role Phone Unavailable Primary Care Provider Unavailabl e Social History Tobacco UseTypesPacks/DayYears UsedDateSmoking Tobacco: Never Assessed CommentsUnknownSex and Gender InformationValueDate RecordedSex Assigned at Not on fileLegal FtzAykrdu08/04/2023 7:14 AM ESTGender IdentityNot on fileSexual OrientationNot on file Plan of Treatment Health MaintenanceDue DateLast DoneCommentsCT Gsdnptlbdwek1964Colonoscopy 1965Colorectal Cancer Kochjifei1964FIT-DNA (Cologuard)1964FIT 1965HIV Pukyokiuv1964Lipid Panel1964Medicare Annual Wellness Visit (AWV)1965 5499Qgdecymdmpfqm1964MMR Vaccines (1 of 1 - Standard series)01/31/1965Hepatitis C Gtejhivkc85/26/1982Cervical Cancer Screening 01/31/1985HPV/Ojoozp5601/31/1985Pap Smear01/31/1985DTaP/Tdap/Td Vaccines (1 - Tdap)01/31/19865985Sdvibdmyn26/26/2004Pneumococcal Vaccine (1 of 1 - PCV)01/31/2014 Zoster Vaccines (1 of 2)01/31/2014Influenza Vaccine (#1)2024OVID-19 Vaccine (1 - season)2025RSV High Risk: (Elderly (60+) or Population) (1 - 1-dose 75+ series)01/31/2039HIB VaccinesAged OutNo longer eligible based on patient's age to complete this topicHPV VaccinesAged OutNo longer eligible based on patient's age to complete this topicHepatitis A VaccinesAged OutNo longer eligible based on patient's age to complete this topic Hepatitis B VaccinesAged OutNo longer eligible based on patient's age to complete this topicIPV VaccinesAged OutNo longer eligible based on patient's age to complete this topicMeningococcal VaccineAged OutNo longer eligible based on patient's age to complete this topicRotavirus VaccinesAged OutNo longer eligible based on patient's age to complete this topic Insurance MemberSubscriberPlan / Payer (Effective 2022-Present)Name:Melony Laws Relation to Subscriber:SelfName:Melony Laws Payer ID:Not on file Group ID:Not on file Type:Not on file Address: [address] [id number]
--- OUTSIDE RECORDS SUMMARY | 2025-02-25 09:38 | XMS_ITS | CCD ---
Author Organization [facility] Inform ion [facility] Care Team Providers Care Photo Tech Name Role Phone MD Susan Ayala Attending Provider KARSHEELAK ., DR FITCH Admitting Unavailabl e KARASIK ., DR FITCH Attending Unavailabl e KARASIK ., DR FITCH Consulting Unavailabl e AYALA, DR SUSAN Bryant Primary Care Unavailable NEL, DR THEA Frost Consulting Unavailable KARASIK ., DR FITCH Attending Unavailabl e KARASIK ., DR FITCH Consulting Unavailabl e JAMIE, DR SUSAN Bryant Primary Care Unavailable KARASIK ., DR FITCH Admitting Unavailabl e DAVEBEKATERINA, DR THEA Frost Consulting Unavailable KARASIK ., DR FITCH Attending Unavailabl e KARASIK ., DR FITCH Consulting Unavailabl e AYALA, DR SUSAN Bryant Primary Care Unavailable KARASIK ., DR FITCH Admitting Unavailabl e AYALA, DR SUSAN Bryant Admitting Unavailable AYALA, DR SUSAN Bryant Attending Unavailable JAMIE, DR SUSAN Bryant Consulting Unavailable JAMIE, DR SUSAN Bryant Primary Care Unavailable ANIA BLANCA Attending Unavailable MIRTA, ANIA Consulting Unavailable ANAI BLANCA Admitting Unavailable JAMIE, DR SUSAN Bryant Primary Care Unavailable JAMIE, DR SUSAN Bryant Admitting Unavailable AYALA, DR SUSAN Bryant Attending Unavailable JAMIE, DR SUSAN Bryant Consulting Unavailable JAMIE, DR [...] Care Provider Itruby, DO Geraldo Attending Provider [phone] MD Susan Ayala Primary Care Provider MD Gavin Plaza Attending Provider MD Gavin Plaza Attending Provider MD Susan Ayala Primary Care Provider Marcus, DO Geraldo Attending Provider [phone] MD Gavin Plaza Attending Provider MD Christine Velazquez Attending Provider Marcus, DO Geraldo Referring Provider [phone] MD Susan Ayala Primary Care Provider Marcus, DO Geraldo Attending Provider MD Christine Velazquez Attending Provider Marcus, DO Geraldo Referring Provider [phone] MD Gavin Plaza Attending Provider MD Susan Ayala Primary Care Provider Marcus DO Geraldo Referring Provider [phone] MD Gaurav Jaime Attending Provider DO Gini Lisa L Attending Provider MD Susan Ayala Primary Care Provider MD Gavin Plaza Attending Provider MD Christine Velazquez Attending Provider Marcus DO Geraldo Referring Provider MD Christine Velazquez Attending Provider Itzkowidean, DO Geraldo Referring Provider MD Gavin Plaza Attending Provider MD Christine Velazquez Attending Provider Itzkowidean, DO Geraldo Referring Provider Susan Ayala MD Primary Care Provider Susan Ayala MD Primary Care Provider Caroline SEPULVEDA, Christine Amaya Attending Provider Itzkoyue DO, Geraldo Referring Provider Gavin Plaza MD Attending Provider Susan Ayala MD Primary Care Provider Caroline SEPULVEDA, Christine Amaya Attending Provider Itzkowidean DO, Geraldo Referring Provider Gavin Plaza MD Attending Provider [phone] Gavin Plaza MD Attending Provider Susan Ayala MD Primary Care Provider Christine Velazquez MD Attending Provider [phone] Itruby DO, Geraldo Referring Provider Susan Ayala MD Primary Care Provider Christine Velazquez MD Attending Provider Itzkoyue DO, Geraldo Referring Provider Gavin Plaza MD Attending Provider Susan Ayala MD Primary Care Provider GILSON PORTILLO Attending Unavailable GISLON PORTILLO Attending Unavailable GILSON PORTILLO Attending Unavailable GERALDO GARCÍA H Attending Unavailable GILSON PORTILLO Attending Unavailable GISLON PORTILLO Attending Unavailable CHRISTY QUICK Attending Unavailable ANGELICA HUNTER Attending Unavailable Susan Ayala MD Primary Care Provider [phone] Susan Ayala MD Attending Provider [phone] Jose Luis Velazquez Attending Provider Unavailable Christine Velazquez MD Attending Provider [phone] Geraldo García DO Referring Provider [phone] Gavin Plaza Attending Unavailab Gavin Leyva Admitting Unavailab Geraldo Ibarra Referring Unavailable Christine Velazquez Attending UnavailChristine Medel Admitting UnavailSusan Lockett Primary Care Unavailable Allergies Allergy ClassificationReported Allergen(s)Allergy TypeDate of OnsetReaction(s) FacilityCephalosporins (antibiotic) (1 source)Cephalosporins (Antibiotic)Drug Ftexfyh00-65-8063Occlyiw Reaction [facility] (1 source)PenicillinsDrug Xzoxqgc95-06-9282Caviakld of Lip/Tongue/Throat [facility] (9 sources)cefdinirDrug AllergyUnkNaval Hospital [facility] Other (15 sources)PenicillinDrug Allergyhalucination and swallowing dificultyGuilford [facility] Other (20 sources)PenicillinsDrug allergy (disorder)55-36-3613Hcoqlfho of Lip/Tongue/ThroatOhio[facility] (10 sources)Medicinal cephalosporin and acting as antibacterial agent (FN)Drug allergyUnkLee's Summit Hospital [facility] Other (10 sources)Ceftin *CEPHALOSPORINS*Propensity to adverse reactionsSSM Health Care [facility] Other (20 sources)Cephalosporins (Antibiotic); Translations: [Cephalosporins]Allergy to uejnaodlo78-94-2063Fwzdjrv ReactionPromedica Defiance [facility] Hospital (15 sources)PenicillinsDrug Sdnbgqm94-53-2718YuvirFKQP Healthcare (1 source)PenicillinsDrug allergy (disorder)65-76-1132IyrcvzlxdPromedica Defiance [facility] Hospital Repository Medications Current Medications MedicationDrug Class(es)DatesSig (Normalized)Sig (Original)alendronic acid 70 mg oral tablet (20 sources)BisphosphonateStart: 77-56-8700egyi 1 tablet by mouth every week Alendronate 70 mg tablet Active 70 MG PO every week September 21, 2023 12:00am Complies with drug therapyStart: 05-02-2023 End: 18-35-4493sddi 1 tablet by mouth every weekAlendronate 70 mg tablet Discontinued 70 MG PO every week May 02, 2023 1:00am August 11, 2023 10:45am mondayascorbic acid 500 mg oral tablet (20 sources)Vitamin CStart: 39-33-5879uhxp 1 tablet by mouth once daily in the morningAscorbic Acid (Vitamin C) (Vitamin C) 500 mg Tablet Active 500 MG PO Every morning May 02, 2023 1:00am Complies with drug therapyatorvastatin 40 mg oral tablet (8 sources)HMG-CoA Reductase Inhibitortake 1 tablet by mouth every twenty-four hoursAtorvastatin Calcium 40 MG 1 tablet Orally Once a day for 90 days Active take 1 tablet by mouth every twenty-four hoursAtorvastatin Calcium 20 MG 1 tablet Orally Once a day for 90 days ActiveAzelastine (Astepro Allergy) 205.5 mcg (0.15 %) spray,non-aerosol (13 sources)Start: 40-50-9615jcyv 1 spray(s) nasal route once dailyAzelastine (Astepro Allergy) 205.5 mcg (0.15 %) spray,non-aerosol Active 2 SPRAY INTRANASAL Daily April 22, 2024 12:38pm administer into each nostrilStart: 42-40-2919vptv 1 spray(s) nasal route once dailyAzelastine (Astepro Allergy) 205.5 mcg (0.15 %) spray,non-aerosol Active 2 SPRAY INTRANASAL Daily April 22, 2024 11:38am administer into each nostrilStart: 03-25-2024 End: 95-83-1183zjnz 1 spray(s) nasal route once dailyAzelastine (Astepro Allergy) 205.5 mcg (0.15 %) spray,non-aerosol Discontinued 2 SPRAY INTRANASAL Da latoya March 25, 2024 1:00am April 22, 2024 12:38pm administer into each nostrilStart: 03-25-2024 End: 85-69-1577awbk 1 spray(s) nasal route once dailyAzelastine (Astepro Allergy) 205.5 mcg (0.15 %) spray,non-aerosol Discontinued 2 SPRAY INTRANASAL Da latoya March 25, 2024 12:00am April 22, 2024 11:38am administer into each nostrilStart: 95-05-2080bxwm 1 spray(s) nasal route once dailyAzelastine (Astepro Allergy) 205.5 mcg (0.15 %) spray,non-aerosol Active 2 SPRAY INTRANASAL Daily March 25, 2024 12:00am administer into each nostrilazithromycin 250 mg oral tablet (8 sources)Macrolide AntimicrobialStart: 09-05-2024 End: 71-15-0926rguk 1 tablet by mouth once dailyazithromycin (Zithromax Z-Gumaro) 250 MG tablet Indications: Onychocryptosis Take 1 tablet (250 mg) bymouth Daily for 5 days Use as directed 6 tablet 09/05/2024 09/10/2024 ActiveStart: 54-55-4886Ybabnrhivrsm 250 MG as directed Orally 2 tabs po today, then 1 tab daily x 4 more days for 5 Mar, Activebenzonatate 200 mg oral capsule (6 sources)Non-narcotic AntitussiveStart: 46-15-3368ycny 1 capsule by mouth every eight hoursBenzonatate 200 MG 1 capsule Orally Three times a day for 10 day(s) Mar, Activebiotin 10 mg oral capsule (1 source)Start: 94-54-7871Unsren 10,000 mcg capsule Active MCG PO February 12, 2025 12:00am Complies with drug therapybusPIRone hydrochloride 5 mg oral tablet (20 sources)Start: 40-58-1928qslu 1 tablet by mouth twice dailyBuspirone 5 mg tablet Active 5 MG PO Twice daily November 20, 2023 12:00am Complies with drug therapyStart: 07-10-2023 End: 55-63-1459nbyb 1 tablet by mouth once dailyBuspirone 5 mg tablet Discontinued 5 MG PO Daily July 10, 2023 1:00am July 11, 2023 3:36pmtake 1 tablet by mouth every twenty-four hoursbusPIRone HCl 5 MG 1 tablet once a day Activecalcium carbonate 1250 mg chewable tablet (14 sources)Start: 71-62-0032ivrt 1 tablet by mouth once dailyCalcium Carbonate (Calcium 500) 500 mg calcium (1,250 mg) tablet,chewable Active 500 MG PO Daily February 15, 2024 12:00am Complies with drug therapycholecalciferol 0.025 mg oral capsule (20 sources)Vitamin DStart: 93-98-9531wolk 1 capsule by mouth once daily Cholecalciferol (Vitamin D3) 25 mcg (1,000 unit) capsule Active 50 MCG PO Daily March 16, 2024 10:17am Complies with drug therapyStart: 02-15-2024 End: 11-07-5807ldgz 1 capsule by mouth once dailyCholecalciferol (Vitamin D3) 25 mcg (1,000 unit) capsule Discontinued 25 MCG PO Daily February 12:00am March 16, 2024 10:18amferrous sulfate 140 mg extended release oral tablet (1 source)Start: 30-52-9051Ezqxbna Sulfate 140 mg (45 mg iron) tablet extended release Active 140 MG PO Every 48 hours 2024 12:00am Complies with drug therapygabapentin 300 mg oral capsule (20 sources)Anti-epileptic AgentStart: 09-20-2024 End: 54-75-5280uliv 1 capsule by mouth at bedtimeGabapentin 300 mg capsule Active 0 .ROUTE .COMPLEX 60 January 13, 2025 9:04am TAKE 1 CAPSULE BY MOUTH AT BEDTIME Complies with drug therapyStart: 05-23-2024 End: 46-61-9458jclw 1 capsule by mouth once daily at bedtimeGabapentin 300 mg capsule Discontinued 300 MG PO Daily at bedtime 60 May 23, 2024 1:00am September 20, 2024 3:52pmStart: 02-21-2024 End: 65-91-0457uvct 1 capsule by mouth once daily at bedtimeGabapentin (Neurontin) 300 mg capsule Discontinued 300 MG PO Daily at bedtime 90 October 16th, 700205:00am March 16, 2024 10:17amletrozole 2.5 mg oral tablet (20 sources)Aromatase InhibitorStart: 02-59-3819onyq 1 tablet by mouth once dailyLetrozole 2.5 mg tablet Active 0 .ROUTE .COMPLEX February 03, 2025 3:21pm TAKE 1 TABLET BY MOUTH DAILY Complies with drug therapyStart: 10-11-2023 End: 61-76-3057fdpo 1 tablet by mouth once dailyLetrozole 2.5 mg tablet Discontinued 2.5 MG PO Daily February 15, 2024 12:00am February 21, 2024 2 :59pmlevothyroxine sodium 0.05 mg oral tablet (20 sources)l-ThyroxineStart: 07-24-2024 End: 98-96-1104hkox 1 tablet by mouth once daily in the morningLevothyroxine 50 mcg tablet Active 0 .ROUTE .COMPLEX January 08, 2025 8:44am TAKE 1 TABLET BYMOUTH EVERY DAY IN THE MORNING ON EMPTY STOMACH FOR 90 DAYS Complies with drug therapyStart: 08-08-2023 End: 39-73-6231olss 1 tablet by mouth once daily in the morningLevothyroxine 75 mcg tablet Discontinued 0 .ROUTE .COMPLEX February 19, 2024 10:36pm July 24, 2024 8:30am TAKE 1 TABLET BY MOUTH EVERY DAY IN THE MORNING ON EMPTY STOMACH FOR 90 DAYSStart: 05-02-2023 End: 68-06-5747niol 1 tablet by mouth once daily in the morningLevothyroxine 75 mcg tablet Discontinued 75 MCG PO Every morning May 02, 2023 1:00am August 08, 2023 8:47amtake 1 tablet by mouth once daily in the morningLevothyroxine Sodium 75 MCG 1 tablet in the morning on an empty stomach Orally Once a day for 90 days Activelithium carbonate 450 mg extended release oral tablet (20 sources)Start: 67-29-5157aqku 1 tablet by mouth once daily in the evening [place] Carbonate 450 mg tablet extended release Active 450 MG PO Every evening May 0231:00am Complies with drug therapyLithium Carbonate 450 mg 2 tablets QHS ActiveOLANZapine 5 mg oral tablet (20 sources)Atypical AntipsychoticStart: 26-81-1527hjlz 1 tablet by mouth at bedtimeOLANZapine (ZyPREXA) 5 MG tablet TAKE 1 TABLET BY MOUTH AT BEDTIME CHANGE IN DOSAGE 06/26/2023 ActiveStart: 05-02-2023 End: 55-26-2117fdzx 1 tablet by mouth once daily in the eveningOlanzapine 10 mg tablet Discontinued 10 MG PO Every evening May 02, 2023 1:00am July 11, 2023 3:36pmtake 1 tablet by mouth once daily at bedtimeOLANZapine 20 MG 1 tablet Orally QHS Activetake 1 tablet by mouth every twenty-four hoursOLANZapine 10 MG 1 tablet Orally Once a day Activeomeprazole 40 mg delayed release oral capsule (20 sources)Proton Pump InhibitorStart: 10-31-2023 End: 24-98-8734ndoj 1 capsule by mouth once daily in the morningOmeprazole 40 mg capsule,delayed release(DR/EC) Active 0 .ROUTE .COMPLEX February 06, 2024 8:28am TAKE 1 CAPSULE BY MOUTH EVERY MORNING Complies with drug therapyStart: 05-02-2023 End: 49-73-8040xraj 1 capsule by mouth once daily in the morningOmeprazole 40 mg capsule,delayed release(DR/EC) Discontinued 40 MG PO Every morning August 11, 2023 10:51am October 31, 2023 8:37amQUEtiapine 200 mg oral tablet (20 sources)Atypical AntipsychoticStart: 89-86-3733xoll 1 tablet by mouth once daily in the eveningQuetiapine 200 mg tablet Active 200 MG PO Every evening May 02, 2023 1:00am Complies with drug therapytake 1 tablet by mouth every twenty-four hoursSEROquel 100 MG 1 tablet at bedtime Orally Once a day Activetake 1 tablet by mouth every twenty-four hoursSEROquel 25 MG 1 tablet at bedtime Orally Once a day Activevitamin b12 0.5 mg chewable tablet (1 source)Vitamin R21Rbefs: 50-32-0231Myosvewgnbl (Vitamin B12) 500 mcg tablet,chewable Active MCG PO February 12, 2025 12:00am Complies with drug therapy Completed/Discontinued Medications MedicationDrug Class(es)DatesSig (Normalized)Sig (Original)acetaminophen 300 mg / codeine phosphate 30 mg oral tablet (20 sources)Opioid AgonistStart: 08-01-2023 End: 35-10-3776kxga 1 tablet by mouth every six hours as needed for pain Acetaminophen-Codeine 300-30 mg tablet Discontinued 1 TAB PO Every 6 hours as needed for pain 24 09August 01, 2023 12:00am August 11, 2023 10:44amazelastine hydrochloride 0.206 mg/actuat metered dose nasal spray (4 sources)Histamine-1 Receptor AntagonistStart: 03-25-2024 End: 41-22-3571ligj 1 spray(s) nasal route once dailyAzelastine (Astepro Allergy) 205.5 mcg (0.15 %) spray,non-aerosol Discontinued 2 SPRAY INTRANASAL Da latoya April 22, 2024 12:38pm February 12, 2025 10:25am administer into each nostrilciprofloxacin 3 mg/ml ophthalmic solution (5 sources)Quinolone AntimicrobialStart: 06-11-2024 End: 05-99-4958Yfbbyjtbihvuv Hcl 0.3 % drops Discontinued 0 OPHTHALMIC .COMPLEX June 11, 2024 1:00am February 12, 2025 10:26am put 1-2 drps in affected eye(s) every 2hr up to 8 times/day x2days; then 4 times/day x5days Eye-Both doxycycline monohydrate 100 mg oral tablet (14 sources)Tetracycline-class DrugStart: 07-22-2024 End: 89-60-8611qona 1 tablet by mouth twice dailyDoxycycline Monohydrate 100 mg tablet Discontinued 100 MG PO Twice daily 18 11July 22, 2024 12:00am February 12, 2025 10:26amStart: 03-16-2024 End: 18-32-5484tjci 1 capsule by mouth twice dailyDoxycycline Monohydrate 100 mg capsule Discontinued 100 MG PO Twice daily 18 11March 16, 2024 1:00am May 17, 2024 12:20pmfenofibrate 200 mg oral capsule (5 sources)Peroxisome Proliferator Receptor alpha Agonisttake 1 capsule by mouth every twenty-four hoursFenofibrate 200 MG 1 tablet Orally Once a day Not-Taking glipiZIDE er 5 mg 24 hr extended release oral tablet (20 sources)SulfonylureaStart: 01-09-2024 End: 57-27-8194ghgw 1 tablet by mouth once dailyGlipizide Discontinued 0 .ROUTE .COMPLEX January 09, 2024 1:14pm February 20, 2024 11:11am TAKE 1 TABLET BY MOUTH EVERY DAYStart: 56-23-8087phhz 1 tablet by mouth once dailyGlipizide Active 0 .ROUTE .COMPLEX January 09, 2024 1:14pm TAKE 1 TABLET BY MOUTH EVERY DAYStart: 10-03-2023 End: 98-25-3284nrhu 1 tablet by mouth once dailyGlipizide 5 mg tablet extended release 24hr Discontinued 0 .ROUTE .COMPLEX January 09, 2024 1:14pm February 20, 2024 11:11am TAKE 1 TABLET BY MOUTH EVERY DAYStart: 10-03-2023 End: 01-01-4233pxuq 1 tablet by mouth once dailyGlipizide 5 mg tablet extended release 24hr Discontinued 5 MG PO Daily October 25, 2023 9:49pm January 09, 2024 1:14pmibuprofen 600 mg oral tablet (20 sources)Nonsteroidal Anti-inflammatory DrugStart: 08-29-2023 End: 84-05-1147ifqk 4 tablets by mouth every twenty-four hours for painIbuprofen 600 mg tablet Discontinued 600 MG PO EVERY 4-6 HOURS as needed for pain 24 09August 29, 2023 12:00am November 20, 2023 8:07am do not exceed 4 doses in a 24 hour periodKetorolac (15 sources)Nonsteroidal Anti-inflammatory Drug, Cyclooxygenase InhibitorStart: 87-92-6218Dqpmktg per 15 mg Aug, 60 mglevoFLOXacin 500 mg oral tablet (5 sources)Quinolone Antimicrobialtake 1 tablet by mouth every twenty-four hours levoFLOXacin 500 MG 1 tablet Orally Once a day Not-TakingmetroNIDAZOLE 500 mg oral tablet (5 sources)Nitroimidazole AntimicrobialStart: 24-42-6656elkg 1 tablet by mouth every twelve hoursmetroNIDAZOLE 500 MG 1 tablet Orally Twice a day for 7 day(s) Jun, Not-Takingmometasone furoate 1 mg/ml topical cream (17 sources)CorticosteroidStart: 11-03-2023 End: 18-51-4047Wozszogspl 0.1 % cream Discontinued 1 APPLIC TOPICAL Daily November 03, 2023 12:00am December 21, 2023 9:58am Apply to radiation site, once a day, AFTER radiation treatments.rosuvastatin calcium 20 mg oral tablet (20 sources)HMG-CoA Reductase InhibitorStart: 10-31-2023 End: 35-34-3770tfai 1 tablet by mouth once daily in the eveningRosuvastatin 20 mg tablet Discontinued 0 .ROUTE .COMPLEX February 06, 2024 8:28am February 03, 2025 8:25am TAKE 1 TABLET BY MOUTH EVERY EVENINGStart: 02-27-2023 End: 75-70-4360blod 1 tablet by mouth once daily in the eveningRosuvastatin 20 mg tablet Discontinued 20 MG PO Every evening August 11, 2023 10:51am October 8:37amsulfamethoxazole 800 mg / trimethoprim 160 mg oral tablet (8 sources)Dihydrofolate Reductase Inhibitor Antibacterial, Sulfonamide AntimicrobialStart: 05-17-2024 End: 98-67-5281swts 1 tablet by mouth twice dailySulfamethoxazole-Trimethoprim 800-160 mg tablet Discontinued 1 TAB PO Twice daily May 17, 2024 1:00am August 14, 2024 11:30amtamoxifen 20 mg oral tablet (16 sources)Estrogen Agonist/AntagonistStart: 12-21-2023 End: 06-65-8038tvud 1 tablet by mouth once dailyTamoxifen 20 mg tablet Discontinued 20 MG PO Daily December 21, 2023 12:00am January 03, 2024 1: 59pmtraZODone hydrochloride 50 mg oral tablet (20 sources)Serotonin Reuptake InhibitorStart: 11-20-2023 End: 04-75-3558Tawltbydu 50 mg tablet Discontinued 25 MG PO Bedtime November 20, 2023 12:00am March 16, 2024 10:16amStart: 37-23-4458tlek 25 mg by mouth at bedtimeTrazodone Active 25 MG PO Bedtime November 20, 2023 12:00amStart: 06-18-8520ndeELMqhx (Desyrel) 50 MG tablet TAKE 1/2 TABLET BY MOUTH AT NIGHT FOR SLEEP 08/15/2023 ActiveStart: 07-10-2023 End: 80-92-7170araq 1 tablet by mouth once dailyTrazodone 50 mg tablet Discontinued 50 MG PO Daily July 10, 2023 1:00am July 11, 2023 3:36pmtake 1 tablet by mouth every twenty-four hourstraZODone HCl 50 MG 1 tablet once a day Kdhcrf39 hr venlafaxine 37.5 mg extended release oral capsule (16 sources)Serotonin and Norepinephrine Reuptake InhibitorStart: 12-21-2023 End: 67-33-6982idui 1 capsule by mouth once dailyVenlafaxine (Effexor Xr) 37.5 mg capsule,extended release 24hr Discontinued 37.5 MG PO Daily December 21, 2023 12:00am January 03, 2024 1:59pm Problems Active Problems Problem ClassificationProblemDateDocumented DateEpisodic/Chronic Administrative/social admission (1 source)Person consulting for explanation of examination or test findings; Translations: [Person consultingfor explanation of examination or test findings] EpisodicCancer of breast (20 sources)Infiltrating duct carcinoma of breast; Translations: [Malignant neoplasm of unspecified site of left female breast]Onset: 98-98-0792Zyfqohr Comment on above:leftChronic kidney disease (20 sources)Chronic kidney disease stage 3; Translations: [Chronic kidney disease, stage 3 unspecified]Onset: 390795-27-1731UxuozfdPvmtjqy obstructive pulmonary disease and bronchiectasis (2 sources)Bronchitis, not specified as acute or chronicEpisodicComplications of surgical procedures or medical care (20 sources)Postoperative hematoma of breast; Translations: [Hematoma of breast following procedure]11-74-7542JxzoasuuFckcwamu mellitus with complications (20 sources)Hyperglycemia due to type 2 diabetes mellitus; Translations: [Type 2 diabetes mellitus with hyperglycemia]Onset: 645280-75-4165HwzqeghLogpnnzv mellitus without complication (20 sources)Impaired fasting glycemia; Translations: [Impaired fasting glucose] Onset: 95-13-1041KsosaidlFryzmxxab of lipid metabolism (20 sources)Hyperlipidemia, unspecified; Translations: [Pure hyperglyceridemia] Onset: 10-27-6339XpnobidRdkfzmkaxc disorders (20 sources)Gastro-esophageal reflux disease without esophagitis; Translations: [Gastroesophageal reflux disease]Onset: 202359-93-1251QtkuejfNyutenjhzecxv symptoms and ill-defined conditions (8 sources)Dysuria; Translations: [Finding of frequency of urination]Onset: 04-21-2022 Resolved: 24-20-5696TjntuxbuXdyqhdwgpzaux and screening for infectious disease (2 sources)Encounter for screening for human papillomavirus (HPV); Translations: [Encounter for screening for infections with a predominantly sexual mode of transmission]Onset: 67-52-0543KskxpkqdKpzlgzzrgseb; infection of eye (except that caused by tuberculosis or sexually transmitteddisease) (8 sources)Bacterial conjunctivitis; Translations: [Unspecified conjunctivitis] 46-94-5983CmnzletiGxdhutemzu disorders (18 sources)Atrophy of vagina; Translations: [Postmenopausal atrophic vaginitis] Onset: 82-66-6778XkfahnlEkfl disorders (7 sources)Bipolar disorder, unspecified; Translations: [Bipolar disorder]Onset: 23-69-3183LbtljcvGowmhlx (6 sources)Candidiasis of skin and nail; Translations: [Candidiasis]Onset: 06-08-2014 Resolved: 25-81-6147JezdhyglZqiwlpcojvuq breast conditions (20 sources)Mammographic calcification found on diagnostic imaging of breast; Translations: [Other specified disorders of breast]Onset: 08-05-2022 Resolved: 336273-51-5030PpsurpgfJvexi aftercare (14 sources)Long-term current use of drug therapy; Translations: [Other [place] [facility] (current) drug therapy]EpisodicOther aftercare (3 sources)Other intermediate frame tender (current) drug therapy; Translations: [OTH UTILITIES 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 SUPERVISOR 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 THERAPY]Onset: 39-95-1664YuvhdjgoYzikr bone disease and musculoskeletal deformities (20 sources)Other specified disorders of bone density and structure, unspecified site; Translations: [Disorder of bone and cartilage, unspecified]Onset: 557258-72-9754ZqhrzgubLpgtg bone disease and musculoskeletal deformities (1 source)Bone density finding; Translations: [Other specified disorders of bone density and structure, unspecified site]EpisodicOther bone disease and musculoskeletal deformities (20 sources)Osteopenia; Translations: [Other specified disorders of bone density and structure, unspecified site]Onset: 953065-99-2376GkbohbseBtzlh circulatory disease (1 source)Elevated blood-pressure reading without diagnosis of hypertension; Translations: [Elevated blood-pressure reading, without diagnosis of hypertension]EpisodicOther connective tissue disease (14 sources)Pain of right upper arm; Translations: [Pain in right upper arm] EpisodicOther connective tissue disease (2 sources)Pain in right upper arm; Translations: [Pain in right upper arm] EpisodicOther connective tissue disease (1 source)Pain in limb; Translations: [Pain in left upper arm]EpisodicOther connective tissue disease (20 sources)Pain in right arm; Translations: [Pain in right arm]Onset: 183021-78-6604EtafklgwTyujt connective tissue disease (6 sources)Pain in right arm; Translations: [Pain in limb]98-63-6657Axaimfvs Other connective tissue disease (4 sources)Pain of toe of right foot; Translations: [Pain in right toe(s)] 11-68-1106WmmuegqsEvfnu ear and sense organ disorders (1 source)Tinnitus of right ear; Translations: [Tinnitus, right ear]04-10-2024 EpisodicOther female genital disorders (1 source)Other specified conditions associated with female genital organs and menstrual cycle; Translations:[OTH SPEC COND FE GEN ORG MENST CYCL]Onset: 56-36-7642LvvyathnQatdm female genital disorders (1 source)Other specified noninflammatory disorders of vagina; Translations: [Other specified noninflammatorydisorders of vagina]EpisodicOther injuries and conditions due to external causes (1 source)History of falling; Translations: [History of falling]EpisodicOther nutritional; endocrine; and metabolic disorders (15 sources)Body mass index 25-29 - overweight; Translations: [Body mass index (BMI) 28.0-28.9, adult]EpisodicOther nutritional; endocrine; and metabolic disorders (1 source)Body mass index (BMI) 28.0-28.9, adult; Translations: [BMI 28.0-28.9,adult]EpisodicOther screening for suspected conditions (not mental disorders or infectious disease) (20 sources)Other abnormal and inconclusive findings on diagnostic imaging of breast; Translations: [Encounter for screening mammogram for malignant neoplasm of breast]Onset: 07-18-2022 Resolved: 15-15-4979MqjlfxhuHdjpq skin disorders (4 sources)Asteatosis cutis; Translations: [Xerosis cutis]96-78-3351Cczarpwx Other skin disorders (4 sources)Ingrowing nail; Translations: [Ingrowing nail]00-78-3652ZqbgnwevSxlnr upper respiratory disease (20 sources)Allergic rhinitis; Translations: [Allergic rhinitis, unspecified] Onset: 463670-93-4285EmxgusmButgh upper respiratory disease (3 sources)Allergic rhinitis, unspecified; Translations: [Allergic rhinitis, cause unspecified]39-69-2555IqjqfyzZfcei upper respiratory infections (1 source)Chronic sinusitis; Translations: [Chronic sinusitis, unspecified] ChronicOther upper respiratory infections (20 sources)Acute maxillary sinusitis; Translations: [Acute recurrent maxillary sinusitis]Onset: 377858-60-3792OdjmicfbNgfpok media and related conditions (20 sources)Acute right otitis media; Translations: [Otitis media, unspecified, right ear]Onset: 892682-31-9543ThrmklvpFnllkdzm codes; unclassified (1 source)Family history of malignant neoplasm of digestive organs; Translations: [FAM HX MALIG NEOPLASM DIGESTIV ORGN]Onset: 05-30-7192Vragpvmj Residual codes; unclassified (1 source)Asymptomatic menopausal state; Translations: [ASYMPTOMATIC MENOPAUSAL STATE]Onset: 82-12-7272OdeqykhfUtfoaaog codes; unclassified (1 source)Immunization not carried out because of patient refusal; Translations: [Immunization not carried out because of patient refusal]EpisodicResidual codes; unclassified (1 source)Estrogen receptor positive status [ER+]; Translations: [Estrogen receptor positive status (ER+)]Onset: 17-40-2434GieqewrsRaarfdbn codes; unclassified (8 sources)Pain, unspecified; Translations: [Generalized pain]86-88-8136Mwmgsucn Screening and history of mental health and substance abuse codes (1 source)Encounter for screening for depression; Translations: [Encounter for screening for depression]EpisodicThyroid disorders (20 sources)Hypothyroidism; Translations: [Hypothyroidism, unspecified]Chronic Urinary tract infections (1 source)Urinary tract infectious disease; Translations: [Urinary tract infection, site not specified]Episodic Past or Other Problems Problem ClassificationProblemDateDocumented DateEpisodic/ChronicAbdominal pain (1 source)Right upper quadrant pain; Translations: [Right upper quadrant pain] Resolved: 28-41-2823OnrwfwpbPmqpbjpxg infection; unspecified site (1 source)Other bacterial infections of unspecified site; Translations: [Other bacterial infections of unspecified site] Resolved: 54-18-9505WrzyrldfCpvloewjjdxi diseases of female pelvic organs (2 sources)Acute vaginitis; Translations: [Acute vaginitis]Onset: 06-18-2014 Resolved: 79-81-9407DygzdngtEwdgfvnbxod chest pain (1 source)Chest pain, unspecified; Translations: [Chest pain, unspecified]Onset: 75-45-8708CszcoyiyCepkt connective tissue disease (1 source)Pain of toes of bilateral feet; Translations: [Pain in right toe(s)] 44-49-4884EovhnknyVhrtj ear and sense organ disorders (12 sources)Sudden idiopathic hearing loss; Translations: [Sudden idiopathic hearing loss, right ear]Onset: 733741-93-0710PdtjdzxcCdciy gastrointestinal disorders (1 source)Abdominal distension (gaseous); Translations: [Abdominal distension (gaseous)] Resolved: 97-18-1485OisbhtwhCitji lower respiratory disease (1 source)Shortness of breath; Translations: [Shortness of breath]Onset: 82-77-6197LydkkbrdKwsea non-traumatic joint disorders (1 source)Arthralgia of the lower leg; Translations: [Pain in unspecified knee] Onset: 33-02-1369MiznxoaqBuqql nutritional; endocrine; and metabolic disorders (1 source)Obesity, unspecified; Translations: [Obesity, unspecified] Resolved: 80-55-8706UpcegktChnsb nutritional; endocrine; and metabolic disorders (1 source)Body mass index 30+ - obesity; Translations: [Body mass index (BMI) 30.0-30.9, adult]Onset: 06-04-2019 Resolved: 60-21-3519SftfvbrQaujeiet codes; unclassified (1 source)Postmenopausal state; Translations: [Asymptomatic menopausal state] Onset: 52-10-8396EhiffhkaRnwbmecclnt; intervertebral disc disorders; other back problems (1 source)Backache; Translations: [Dorsalgia, unspecified]Onset: 03-07-2018 Episodic Results Test NameValueInterpretationReference RangeFacilityBasophils Auto (Bld) [#/Vol] Ordered By: Christine Velazquez on 19-14-1683Xlrjhobhl (Bld) [#/Vol]0.0 10 3/uL 0.0-0.1FTriHealth [facility]ull[facility] HospitalBasophils/100 WBC Auto (Bld)Ordered By: Christine Velazquez on 22-44-3002Rixdvotwc/100 WBC (Bld)0.4 %0.2-2.0[facility] HospitalEosinophils/100 WBC Auto (Bld)Ordered By: Christine Velazquez on 92-65-8215Yqqsowezfpr/100 WBC (Bld)0.0 %Low0.9-7.0[facility] HospitalErythrocyte distribution width Auto (RBC) [Ratio]Ordered By: Christine Mtz on 62-66-0630Dqicvnyvpxg distribution width (RBC) [Ratio]14.5 %11.0-15.0 [facility] HospitalGlobulin Calc (S) [Mass/Vol]Ordered By: Christine Mtz on 71-87-1803Fglxadah (S) [Mass/Vol]3.9 g/dLPromedica Defiance Regional HospitalGlomerular filtration rate (GFR) estimation in non- AmericanOrdered By: Christine Velazquez on 79-38-1688LYW/1.73 sq M.predicted among non-blacks MDRD (S/P/Bld) [Vol rate/Area]mL/min/{1.73_m2}>=60 mL/min/1.73m 2FTriHealth McCullough-Hyde Memorial HospitalHematocrit Auto (Bld) [Volume fraction]Ordered By: Christine Velazquez on 38-48-1216Imejixvubl (Bld) [Volume fraction]39.9 %36.0-48.0[facility] HospitalHemoglobin [Mass/volume] in BloodOrdered By: Christine Velazquez on 11-18-7481Olwwouykee (Bld) [Mass/Vol]12.8 g/dL12.0-16.0[facility] HospitalLaboratory - Chemistry and Chemistry - challengeOrdered By: Christine Velazquez on 40-90-4484Elsoncu [Mass/Vol]3.8 g/dL3.4-5.0[facility] HospitalALP [Catalytic activity/Vol]88 U/Y01-796NbrmbmjgrPromedica Defiance Regional HospitalALT [Catalytic activity/Vol]32 U/Y97-25AgrssrwwlPromedica [facility] Hospital AST [Catalytic activity/Vol]27 U/D24-22TqdnsrzjuPromedica [facility] Hospital Bilirubin [Mass/Vol]0.3 mg/dL0.2-1.0[facility] HospitalCalcium [Mass/Vol]9.5 mg/dL8.5-10.1FTriHealth McCull[facility] Memorial HospitalChloride [Moles/Vol] 107 mmol/N40-123TfhwytfjaPromedica Defiance Regional HospitalCO2 [Moles/Vol]23.8 mmol/L 21.0-32.0[facility] HospitalCreatinine [Mass/Vol]0.79 mg/dL 0.55-1.02[facility] HospitalGFR/1.73 sq M.predicted MDRD (S/P/Bld) [Vol rate/Area]mL/min/{1.73_m2}>=60 mL/min/1.73m 2FTriHealth McCull[facility]-Hy[facility] Memorial HospitalGlucose [Mass/Vol]136 mg/dQMyhp14-701AwwtnminyPromedica [facility] Hospital Potassium [Moles/Vol]3.8 mmol/L3.5-5.1FTriHealth McCull[facility] Memorial HospitalProtein [Mass/Vol]7.7 g/dL6.4-8.2FDoctors Hospitalodium [Moles/Vol]145 mmol/V532-642BcocnktyaPromedica Defiance Regional HospitalUrea nitrogen [Mass/Vol]10.0 mg/dL 7.0-18.0[facility] HospitalUrea nitrogen/Creatinine [Mass ratio] 12.7 mg/mgPromedica Defiance Regional HospitalLaboratory - Hematology and Cell countsOrdered By: Christine Velazquez on 87-83-5344Kmxeynxw granulocytes/100 WBC (Bld)0.2 %0.0-0.5FTriHealth McCullough-Hy[facility] Memorial HospitalLeukocytes [#/volume] corrected for nucleated erythrocytes in Blood by Automated counOrdered By: Christine Velazquez on 19-20-5516HMS corrected for nucl RBC Auto (Bld) [#/Vol]5.0 10 3/uL 4.0-11.0[facility] HospitalLymphocytes Auto (Bld) [#/Vol]Ordered By: Christine Velazquez on 15-96-8644Diddqfjtwmr (Bld) [#/Vol]1.0 10 3/uLLow1.2-3.8 [facility] HospitalLymphocytes/100 WBC Auto (Bld)Ordered By: Christine Velazquez on 04-16-0841Muqimhurlpj/100 WBC (Bld)20.0 %Low20.5-60.0[facility] Auto (RBC) [Entitic mass]Ordered By: Christine Velazquez on 69-75-0327MLY (RBC) [Entitic mass]28.4 pg26.7-34.0[facility] HospitalMCHC Auto (RBC) [Mass/Vol]Ordered By: Christine Velazquez on 22-78-4890YLEQ (RBC) [Mass/Vol]32.1 g/dL29.9-35.2FTriHealth McCullough-Hy[facility] Memorial HospitalMCV Auto (RBC) [Entitic vol]Ordered By: Christine Velazquez on 90-24-1380FXE (RBC) [Entitic vol]88.7 fL81.0-99.0[facility] HospitalMonocytes Auto (Bld) [#/Vol]Ordered By: Christine Velazquez on 84-27-8390Dnrspushh (Bld) [#/Vol]0.4 10 3/uL0.3-0.8[facility] HospitalMonocytes/100 WBC Auto (Bld)Ordered By: Christine Velazquez on 32-69-1718Oyaiulreg/100 WBC (Bld)7.6 %1.7-12.0[facility] HospitalNeutrophils Auto (Bld) [#/Vol]Ordered By: Christine Velazquez on 41-64-5949Xbmyifrsmbx (Bld) [#/Vol]3.6 10 3/uL1.4-6.5FTriHealth McCull[facility]-Hy[facility] Memorial HospitalNeutrophils/100 WBC Auto (Bld)Ordered By: Christine Velazquez on 87-48-4812Dnsvrsscwlx/100 WBC (Bld)71.8 %43.0-75.0[facility] HospitalNo Panel InformationOrdered By: Christine Velazquez on 31-63-4479Eovdaltotsm # (Auto)0.0 10 3/uL0.0-0.7FTriHealth McCull[facility]-Hy[facility] Memorial HospitalImmature Granulocyte # (Auto)0.01 10 3/uL0.00-0.03[facility] HospitalPlatelet mean volume Auto (Bld) [Entitic vol]Ordered By: Christine Velazquez on 77-56-7893Oksyketk mean volume (Bld) [Entitic vol]9.9 fL9.5-13.5FTriHealth [facility] Platelets Auto (Bld) [#/Vol]Ordered By: Christine Velazquez on 91-06-5025Yxrtyulex (Bld) [#/Vol]106 10 3/qUJpn161-839GchjijhbnPromedica Defiance Regional HospitalRBC Auto (Bld) [#/Vol]Ordered By: Christine Velazquez on 74-83-9310FUL (Bld) [#/Vol]4.50 10 6/uL4.20-5.40[facility] Townshiperum or plasma albumin/globulin mass ratioOrdered By: Christine Velazquez on 61-29-2275Vjlysea/Globulin [Mass ratio] 1.0 {ratio}[facility] Townshiperum or plasma anion gap determinationOrdered By: Christine Velazquez on 35-69-9421Pqzth gap [Moles/Vol]18.0 mmol/LFTriHealth McCullough-Hyde Memorial HospitalCholesterol in LDL Calc [Mass/Vol]Ordered By: Susan Ayala on 79-19-5032Wlnqrrvoacb in LDL [Mass/Vol]41.0 mg/dLPromedica Defiance Regional HospitalComment on above:<100 mg/dl TGGKTCO418-058 mg/dl NEAR OR ABOVE LXCVWQB840-675 mg/dl BORDERLINE UVBH294-925 mg/dl HIGH>190 mg/dl VERY HIGH Cholesterol in VLDL Calc [Mass/Vol]Ordered By: Susan Ayala on 02-03-2025 Cholesterol in VLDL [Mass/Vol]49.4 mg/dLPromedica Defiance Regional Hospital Globulin Calc (S) [Mass/Vol]Ordered By: Susan Ayala on 59-00-6449Scknyqiq (S) [Mass/Vol]3.8 g/dLPromedica Defiance Regional HospitalGlomerular filtration rate (GFR) estimation in non- AmericanOrdered By: Susan Ayala on 02-03-2025 GFR/1.73 sq M.predicted among non-blacks MDRD (S/P/Bld) [Vol rate/Area] mL/min/{1.73_m2}>=60 mL/min/1.73m 2FTriHealth McCullough-Hyde Memorial HospitalGlucose mean value [Mass/volume] in Blood Estimated from glycated hemoglobinOrdered By: Susan Ayala on 65-00-6740Bhpopwf glucose Estimated from glycated hemoglobin (Bld) [Mass/Vol]140 mg/dLPromedica Defiance Regional HospitalHemoglobin A1c percentageOrdered By: Susan Ayala on 95-34-8113PnF5r (Bld) [Mass fraction]6.5 % High4.5-6.2FTriHealth McCull[facility]-Hyde Memorial HospitalComment on above:ADA RECOMMENDED LIMIT 4.0 - 6.0ADA THERAPEUTIC TARGET < 7.0ACTION SUGGESTED> 7.0Laboratory - Chemistry and Chemistry - challengeOrdered By: Susan Ayala on 41-58-3166Vquriqt [Mass/Vol]4.1 g/dL3.4-5.0[facility] HospitalALP [Catalytic activity/Vol]100 U/U26-441OxzlieziwPromedica Defiance Regional HospitalALT [Catalytic activity/Vol]38 U/I30-28BausqvpvaPromedica Defiance Regional HospitalAST [Catalytic activity/Vol]24 U/O27-01IukdfzpzaPromedica Defiance Regional HospitalBilirubin [Mass/Vol]0.3 mg/dL0.2-1.0[facility] HospitalCalcium [Mass/Vol]9.7 mg/dL 8.5-10.1FTriHealth [facility]ull[facility] Memorial HospitalChloride [Moles/Vol]106 mmol/L98-107 [facility] HospitalCholesterol [Mass/Vol]133 mg/dL<=200Prom[facility] HospitalCholesterol in HDL [Mass/Vol]43 mg/lG71-30JcgbfxtjkPromedica Defiance Regional HospitalComment on above:> or =60 mg/dl - LOW CARDIOVASCULAR RISK<40 mg/dl - HIGH CARDIOVASCULAR RISKCO2 [Moles/Vol]25.9 mmol/L21.0-32.0 [facility] HospitalCreatinine [Mass/Vol]0.80 mg/dL0.55-1.02 [facility] HospitalFree T4 [Mass/Vol]0.89 ng/dL0.76-1.46[facility] HospitalGFR/1.73 sq M.predicted MDRD (S/P/Bld) [Vol rate/Area] mL/min/{1.73_m2}>=60 mL/min/1.73m 2FTriHealth McCullough-Hyde Memorial HospitalGlucose [Mass/Vol]134 mg/uYThsm98-504YaoiapqhfPromedica Defiance Regional HospitalPotassium [Moles/Vol]4.0 mmol/L3.5-5.1FTriHealth [facility]ull[facility] Memorial HospitalProtein [Mass/Vol] 7.9 g/dL6.4-8.2FDoctors Hospitalodium [Moles/Vol]143 mmol/L 136-145[facility] HospitalTriglyceride [Mass/Vol]247 mg/dLHigh <=150Prom[facility] HospitalTSH Qn3.128 m[IU]/L0.358-3.740[facility] HospitalUrea nitrogen [Mass/Vol]10.0 mg/dL7.0-18.0[facility] HospitalUrea nitrogen/Creatinine [Mass ratio]12.5 mg/mgPromedica Defiance Regional HospitalMicroalbumin [Mass/volume] in UrineOrdered By: Susan Ayala on 67-36-5595Snrehzi DL <= 20 mg/L (U) [Mass/Vol]mg/dL<=30.0[facility] HospitalNo Panel InformationOrdered By: Susan Ayala on 23-81-4926Apbru Random Tjobgkqxkv43.36 mg/dLLow20.00-300.00[facility] Townshiperum or plasma albumin/globulin mass ratioOrdered By: Susan Ayala on 25-97-0179Uvsfmvc/Globulin [Mass ratio]1.1 {ratio}[facility] Townshiperum or plasma anion gap determinationOrdered By: Susan Ayala on 47-43-6495Oaqgg gap [Moles/Vol]15.1 mmol/LFDoctors Hospitalerum or plasma total cholesterol/high density lipoprotein (HDL) cholesterol mass rat Ordered By: Susan Ayala on 01-86-1822Gtnudqzvhpx.total/Cholesterol in HDL [Mass ratio]3.1 {ratio}[facility] HospitalComment on above:3.3 - 4.4 LOW RISK4.4 - 7.1 AVERAGE RISK7.1 - 11.0 MODERATE RISK>11.0 HIGH RISK Microalbumin [Mass/volume] in Urineon 52-49-7178Nkldlte DL <= 20 mg/L (U) [Mass/Vol]Microalbumin [Mass/volume] in Urine<=30.0[facility] HospitalNo Panel Informationon 37-12-6866Pecry Random Gftuhhvrsy87.19 mg/dLLow 20.00-300.00[facility] HospitalInfluenza virus B Ag [Presence] in Upper respiratory specimen by Rapid immunoassayon 63-96-9300PYQWK Ag IA.rapid Ql (Nph)Influenza virus B Ag [Presence] in Upper respiratory specimen by Rapid immunoassayPromedica Defiance Regional HospitalNo Panel Informationon 07-18-2024 Influenza Type A (Rapid)NegativePromedica Defiance Regional HospitalPOC SARS CoV-2 AntigenNegativePromedica Defiance Regional HospitalEstimated glomerular filtration rate (GFR) non- Americanon 09-78-5788ZIX/1.73 sq M.predicted among non- blacks MDRD (S/P/Bld) [Vol rate/Area]Estimated glomerular filtration rate (GFR) non- AmericanLow>=60 mL/min/1.73m 2FTriHealth [facility]ull[facility] Hospital Glucose mean value [Mass/volume] in Blood Estimated from glycated hemoglobinon 57-03-6329Jnnxswz glucose Estimated from glycated hemoglobin (Bld) [Mass/Vol] Glucose mean value [Mass/volume] in Blood Estimated from glycated hemoglobin [facility] HospitalHemoglobin A1c percentageon 59-24-5994WaO5p (Bld) [Mass fraction]Hemoglobin A1c percentageHigh4.5-6.2FTriHealth [facility]ull[facility] Memorial HospitalComment on above:ADA RECOMMENDED LIMIT 4.0 - 6.0ADA THERAPEUTIC TARGET < 7.0ACTION SUGGESTED> 7.0Laboratory - Chemistry and Chemistry - challengeon 77-25-6216Hccaomapzi [Mass/Vol]1.09 mg/dLHigh0.55-1.02[facility] HospitalGFR/1.73 sq M.predicted MDRD (S/P/Bld) [Vol rate/Area] mL/min/{1.73_m2}>=60 mL/min/1.73m 2FTriHealth McCullough-Hyde Memorial HospitalTSH Qn0.313 m[IU]/LLow0.358-3.740[facility] HospitalNo Panel Informationon 12-93-4376Mlvgpil Level0.8 mmol/L0.5-1.2FTriHealth [facility]ull[facility]-Hy[facility] Memorial HospitalComment on above:A concentration of 0.5-0.8 mmol/L is advised for long-termuse; concentrations of up to 1.2 mmol/L may be necessaryduring acute treatment. Detection Limit = 0.1 <0.1 indicates None DetectedPerformed at: [facility] [id number] Director: Wojciech Farah PhD, Phone: [phone] Auto (Bld) [#/Vol]on 84-20-0153Omfwdocij (Bld) [#/Vol]Automated basophil count0.0-0.1FTriHealth [facility] Basophils/100 WBC Auto (Bld)on 92-86-9646Ennskcdqh/100 WBC (Bld)Automated basophil %0.2-2.0[facility] HospitalEosinophils/100 WBC Auto (Bld) on 96-55-1565Yioyvxnmjnc/100 WBC (Bld)Automated eosinophil %0.9-7.0[facility] HospitalErythrocyte distribution width Auto (RBC) [Ratio]on 88-64-6177Uyzzkdpufrr distribution width (RBC) [Ratio]Erythrocyte distribution width [Ratio] by Automated count11.0-15.0[facility] Estimated glomerular filtration rate (GFR) non- Americanon 05-15-2024 GFR/1.73 sq M.predicted among non-blacks MDRD (S/P/Bld) [Vol rate/Area]Estimated glomerular filtration rate (GFR) non- AmericanLow>=60 mL/min/1.73m 2 [facility] HospitalGlobulin Calc (S) [Mass/Vol]on 05-15-2024 Globulin (S) [Mass/Vol]Serum globulin measurement by calculation (mass/volume) [facility] HospitalHematocrit Auto (Bld) [Volume fraction]on 21-42-9917Hdabhfxrfm (Bld) [Volume fraction]Hematocrit [Volume Fraction] of Blood by Automated count36.0-48.0[facility] HospitalHemoglobin [Mass/volume] in Bloodon 01-56-7700Ijwvuniufr (Bld) [Mass/Vol]Hemoglobin [Mass/volume] in Blood12.0-16.0[facility] HospitalLaboratory - Chemistry and Chemistry - challengeon 57-63-0487Ahoddom [Mass/Vol]4.0 g/dL 3.4-5.0[facility] HospitalALP [Catalytic activity/Vol]105 U/L 46-116Prom[facility] HospitalALT [Catalytic activity/Vol]38 U/L14-59 [facility] HospitalAST [Catalytic activity/Vol]27 U/L15-37 [facility] HospitalBilirubin [Mass/Vol]0.5 mg/dL0.2-1.0[facility] HospitalCalcium [Mass/Vol]10.3 mg/dLHigh8.5-10.1FTriHealth [facility] HospitalChloride [Moles/Vol]106 mmol/X76-715HxasmylsqPromedica Defiance Regional HospitalCO2 [Moles/Vol]26.9 mmol/L21.0-32.0[facility] HospitalCreatinine [Mass/Vol]1.06 mg/dLHigh0.55-1.02[facility] HospitalGFR/1.73 sq M.predicted MDRD (S/P/Bld) [Vol rate/Area]mL/min/{1.73_m2}>=60 mL/min/1.73m 2FTriHealth McCull[facility] Memorial HospitalGlucose [Mass/Vol]174 mg/dLHigh 74-106Prom[facility] HospitalLDH [Catalytic activity/Vol]154 U/L81-234 [facility] HospitalPotassium [Moles/Vol]4.3 mmol/L3.5-5.1FTri[facility] HospitalProtein [Mass/Vol]7.4 g/dL6.4-8.2FDoctors Hospitalodium [Moles/Vol]145 mmol/L021-839QddmkrqrePromedica Defiance Regional HospitalUrea nitrogen [Mass/Vol]12.0 mg/dL7.0-18.0[facility] HospitalUrea nitrogen/Creatinine [Mass ratio]11.3 mg/mgPromedica Defiance Regional HospitalLaboratory - Hematology and Cell countson 49-15-1593Anzrdlqz granulocytes/100 WBC (Bld)0.5 %0.0-0.5FTri[facility] Leukocytes [#/volume] corrected for nucleated erythrocytes in Blood by Automated counon 21-63-8821FBM corrected for nucl RBC Auto (Bld) [#/Vol]Leukocytes [#/volume] corrected for nucleated erythrocytes in Blood by Automated coun 4.0-11.0[facility] HospitalLymphocytes Auto (Bld) [#/Vol]on 63-46-2626Cedahgncbfg (Bld) [#/Vol]Lymphocytes [#/volume] in Blood by Automated count1.2-3.8[facility] HospitalLymphocytes/100 WBC Auto (Bld)on 02-57-0395Aarabdtjfak/100 WBC (Bld)Lymphocytes/100 leukocytes in Blood by Automated count20.5-60.0[facility]burgH Auto (RBC) [Entitic mass]on 39-42-9558ULQ (RBC) [Entitic mass]MCH [Entitic mass] by Automated count 26.7-34.0[facility] HospitalMCHC Auto (RBC) [Mass/Vol]on 28-70-6503KUFC (RBC) [Mass/Vol]MCHC [Mass/volume] by Automated count29.9-35.2 [facility] HospitalMCV Auto (RBC) [Entitic vol]on 97-52-6981NKH (RBC) [Entitic vol]MCV [Entitic volume] by Automated count81.0-99.0[facility] HospitalMonocytes Auto (Bld) [#/Vol]on 55-81-0003Eoyagmghg (Bld) [#/Vol]Automated blood monocyte count0.3-0.8[facility] Monocytes/100 WBC Auto (Bld)on 15-92-1836Tgttsuafb/100 WBC (Bld)Automated monocyte %1.7-12.0[facility] HospitalNeutrophils Auto (Bld) [#/Vol]on 62-28-4139Yauvzglbwwf (Bld) [#/Vol]Neutrophils [#/volume] in Blood by Automated count1.4-6.5FTriHealth [facility]ull[facility] Memorial HospitalNeutrophils/100 WBC Auto (Bld)on 36-18-3560Nyqkrphznwi/100 WBC (Bld)Automated neutrophil %43.0-75.0 [facility] HospitalNo Panel Informationon 26-63-1054Yndwkfkkxic # (Auto)0.2 10 3/uL0.0-0.7FTriHealth McCull[facility] Memorial HospitalImmature Granulocyte # (Auto)0.03 10 3/uL0.00-0.03[facility] HospitalMiscellaneous Test COMMENT.[facility] HospitalComment on above:Test Ordered: [id number] Platelet Antibody ProfileHLA Class 1 Antibody Negative BN Reference Range: Nega tiveIIb/IIIa Antibody Negative BN Reference Range: NegativeIb/IX Antibody Negative BN Reference Range: NegativeIa/IIa Antibody Negative BN Reference Range: NegativeGlycoprotein IV Antibody Negative BN Reference Range: NegativePerformed at: - [facility] [id number] Director: Carlos Alberto Goss MD, Phone: [phone] at: - [facility] [id number] [place], [place] [id number] Director: Wojciech Farah PhD, Phone: [phone] mean volume Auto (Bld) [Entitic vol]on 75-04-8232Lkeuuttj mean volume (Bld) [Entitic vol]Platelet mean volume [Entitic volume] in Blood by Automated count9.5-13.5FTriHealth [facility] Platelets Auto (Bld) [#/Vol]on 55-03-3589Iuutydgcq (Bld) [#/Vol]Platelets [#/volume] in Blood by Automated amilqRjv274-364BkalpmpzaPromedica Defiance Regional HospitalRBC Auto (Bld) [#/Vol]on 17-58-0907IQO (Bld) [#/Vol]Erythrocytes [#/volume] in Blood by Automated count4.20-5.40[facility] Serum or plasma albumin/globulin mass ratioon 40-88-9405Ttesamb/Globulin [Mass ratio]Serum or plasma albumin/globulin mass ratioKettering Health Washington Townshiperum or plasma anion gap determinationon 55-50-5527Koyvm gap [Moles/Vol] Serum or plasma anion gap determinationPromedica Defiance Regional HospitalAuditory function testson 91-42-1827Vhmst Ear: Mild sensorineural hearing loss from 250 Hz - 1K Hz rising to normal hearing from 2K Hz - 3K Hz. Mild to moderate sensorineural hearing loss above 3K Hz Left Ear: Mild sensorineural hearing loss at 8K Hz only [facility] FoundationNOIL HealthcareCOVID Cepheidon 84-85-4443ZPMT-CoV-2 (COVID-19) RNA HIMANSHU+probe Ql (Unsp spec)COVID CepheidPromedica Defiance Regional Hospital Laboratory - Microbiology and Antimicrobial susceptibilityon 03-16-2024 SARS-CoV-2 (COVID-19) RNA HIMANSHU+probe Ql (Unsp spec)NegativePromedica Defiance Regional HospitalNo Panel InformationOrdered By: Valencia Boyd on 03-16-2024 Quick Strep (POC)[facility] HospitalNo Panel Informationon 27-46-8910TXB Influenza A (PCR)NegativePromedica Defiance Regional HospitalPO Influenza B (PCR)NegativePromedica Defiance Regional HospitalHbA1c HPLC (Bld) [Mass fraction]on 20-17-1365CqA4z (Bld) [Mass fraction]Hemoglobin A1c/Hemoglobin.total in Blood by HPLCPromedica Defiance Regional HospitalGlobulin Calc (S) [Mass/Vol]on 52-28-9817Nunhhaom (S) [Mass/Vol]3.6 g/dLPromedica Defiance Regional HospitalGlobulin (S) [Mass/Vol]Serum globulin measurement by calculation (mass/volume)[facility] HospitalLaboratory - Chemistry and Chemistry - challengeon 44-48-8598Jaocjqk [Mass/Vol]4.0 g/dL3.4-5.0 [facility] HospitalALP [Catalytic activity/Vol]104 U/L46-116 [facility] HospitalALT [Catalytic activity/Vol]37 U/L14-59 [facility] HospitalAST [Catalytic activity/Vol]29 U/L15-37 [facility] HospitalBilirubin [Mass/Vol]0.4 mg/dL0.2-1.0[facility] HospitalBilirubin.direct [Mass/Vol]0.1 mg/dL0.0-0.2FTriHealth [facility] HospitalProtein [Mass/Vol]7.6 g/dL6.4-8.2FDoctors Hospitalerum or plasma albumin/globulin mass ratioon 02-08-2024 Albumin/Globulin [Mass ratio]1.1 {ratio}[facility] Albumin/Globulin [Mass ratio]Serum or plasma albumin/globulin mass ratio [facility] HospitalBasophils Auto (Bld) [#/Vol]on 12-22-2023 Basophils (Bld) [#/Vol]0.0 10 3/uL0.0-0.1FTriHealth [facility]ull[facility] Hospital Basophils/100 WBC Auto (Bld)on 95-93-5296Wizdzojbg/100 WBC (Bld)0.2 %0.2-2.0 [facility] HospitalEosinophils/100 WBC Auto (Bld)on 12-22-2023 Eosinophils/100 WBC (Bld)0.0 %Low0.9-7.0[facility] Erythrocyte distribution width Auto (RBC) [Ratio]on 91-33-7443Sdevwddgtxi distribution width (RBC) [Ratio]13.9 %11.0-15.0[facility] Estimated glomerular filtration rate (GFR) non- Americanon 12-22-2023 GFR/1.73 sq M.predicted among non-blacks MDRD (S/P/Bld) [Vol rate/Area]52 mL/min/{1.73_m2}Low>=60[facility] HospitalGlobulin Calc (S) [Mass/Vol]on 01-43-7466Jkhmvrsi (S) [Mass/Vol]3.3 g/dLPromedica Defiance Regional HospitalHematocrit Auto (Bld) [Volume fraction]on 33-34-5186Vehncmbmed (Bld) [Volume fraction]42.6 %36.0-48.0[facility] HospitalHemoglobin [Mass/volume] in Bloodon 57-05-7232Etcdnvmfae (Bld) [Mass/Vol]13.1 g/dL12.0-16.0 [facility] HospitalIron binding capacity [Mass/volume] in Serum or Plasmaon 10-96-8117[facility] binding capacity [Mass/Vol]324.0 ug/dL250.0-450.0 [facility] HospitalIron saturation [Mass Fraction] in Serum or Plasmaon 16-44-7557Hjln saturation [Mass fraction]18.5 %[facility] HospitalLaboratory - Chemistry and Chemistry - challengeon 12-22-2023 Albumin [Mass/Vol]4.1 g/dL3.4-5.0[facility] HospitalALP [Catalytic activity/Vol]101 U/X96-000OlyufinwdPromedica Defiance Regional HospitalALT [Catalytic activity/Vol]42 U/P81-10OjlemslnmPromedica Defiance Regional HospitalAST [Catalytic activity/Vol]35 U/G17-28EeasaitpuPromedica Defiance Regional HospitalBilirubin [Mass/Vol]0.4 mg/dL0.2-1.0[facility] HospitalCalcium [Mass/Vol]10.0 mg/dL 8.5-10.1FTriHealth McCullough-Hyde Memorial HospitalChloride [Moles/Vol]107 mmol/L98-107 [facility] HospitalCO2 [Moles/Vol]27.1 mmol/L21.0-32.0[facility] HospitalCobalamin (Vitamin B12) [Mass/Vol]382.0 pg/mL193.0-986.0 [facility] HospitalCreatinine [Mass/Vol]1.07 mg/dLHigh0.55-1.02 [facility] HospitalFerritin [Mass/Vol]312.0 ng/mLHigh8.0-252.0 [facility] HospitalGFR/1.73 sq M.predicted MDRD (S/P/Bld) [Vol rate/Area]mL/min/{1.73_m2}>=60[facility] CenterGlucose [Mass/Vol]143 mg/oFAcky21-318LtqqvwfunPromedica Defiance Regional HospitalIron [Mass/Vol] 60.0 ug/dL50.0-170.0[facility] HospitalPotassium [Moles/Vol]5.0 mmol/L3.5-5.1FTriHealth McCull[facility] Memorial HospitalProtein [Mass/Vol]7.4 g/dL6.4-8.2 [facility] Townshipodium [Moles/Vol]143 mmol/H793-426TpmmxkwfwPromedica Defiance Regional HospitalUrea nitrogen [Mass/Vol]13.0 mg/dL7.0-18.0[facility] HospitalUrea nitrogen/Creatinine [Mass ratio]12.1 mg/mgPromedica Defiance Regional HospitalLaboratory - Hematology and Cell countson 12-22-2023 Immature granulocytes/100 WBC (Bld)0.2 %0.0-0.5FTri[facility] Hospital Leukocytes [#/volume] corrected for nucleated erythrocytes in Blood by Automated counon 81-45-7936BQB corrected for nucl RBC Auto (Bld) [#/Vol]4.2 10 3/uL 4.0-11.0[facility] HospitalLymphocytes Auto (Bld) [#/Vol]on 97-37-7763Vlqtfuswsai (Bld) [#/Vol]0.8 10 3/uLLow1.2-3.8[facility] HospitalLymphocytes/100 WBC Auto (Bld)on 65-87-9745Jatovsaxncz/100 WBC (Bld)18.5 %Low20.5-60.0[facility] MiamisburgH Auto (RBC) [Entitic mass]on 51-29-8838GMP (RBC) [Entitic mass]27.8 pg26.7-34.0[facility] HospitalMCHC Auto (RBC) [Mass/Vol]on 30-87-7093TJKV (RBC) [Mass/Vol]30.8 g/dL29.9-35.2FTriHealth McCullough-Hyde Memorial HospitalMCV Auto (RBC) [Entitic vol]on 89-92-4880WXW (RBC) [Entitic vol]90.4 fL81.0-99.0[facility] HospitalMonocytes Auto (Bld) [#/Vol]on 38-90-2275Kkjpmzmzh (Bld) [#/Vol]0.3 10 3/uL0.3-0.8[facility] HospitalMonocytes/100 WBC Auto (Bld)on 63-24-1251Uhaetubsv/100 WBC (Bld)8.1 %1.7-12.0[facility] Neutrophils Auto (Bld) [#/Vol]on 04-48-7812Gcpslhstmhw (Bld) [#/Vol]3.1 10 3/uL 1.4-6.5FTriHealth McCullough-Hy[facility] Memorial HospitalNeutrophils/100 WBC Auto (Bld)on 05-59-2309Bewmsoscfto/100 WBC (Bld)73.0 %43.0-75.0[facility] HospitalNo Panel Informationon 03-82-1948Wicsaolqwrj # (Auto)0.0 10 3/uL0.0-0.7 [facility] HospitalFolate8.60 ng/mL8.60-58.90[facility] HospitalImmature Granulocyte # (Auto)0.01 10 3/uL0.00-0.03[facility] HospitalPlatelet mean volume Auto (Bld) [Entitic vol]on 73-44-8401Daadaybi mean volume (Bld) [Entitic vol]10.1 fL9.5-13.5FTriHealth McCullough-Hyde Memorial HospitalPlatelets Auto (Bld) [#/Vol]on 25-24-7183Lfnoobxps (Bld) [#/Vol]115 10 3/iXZrs304-359FdglqqtwwPromedica Defiance Regional HospitalRBC Auto (Bld) [#/Vol]on 18-98-5731VGC (Bld) [#/Vol]4.71 10 6/uL4.20-5.40[facility] Washington Townshiperum or plasma albumin/globulin mass ratioon 12-22-2023 Albumin/Globulin [Mass ratio]1.2 {ratio}[facility] Townshiperum or plasma anion gap determinationon 25-43-6631Rgztd gap [Moles/Vol]13.9 mmol/L [facility] HospitalGlucose Glucometer (BldC) [Mass/Vol]Ordered By: Lisa Rubalcava on 02-12-9340Nqhvdyf [Mass/Vol]98 mg/dLPromedica Defiance Regional HospitalComment on above:Random Glucose Reference Range is dependent on time and content of last meal. Glucose of more than 200 mg/dL in a nonstressed, ambulatory subject supports the diagnosis of Diabetes Mellitus.No Panel InformationOrdered By: Lisa Rubalcava on 01-78-6450Ntmriia Glucose CommentGlu2: cleaned meterPromedica Defiance Regional HospitalEstimated glomerular filtration rate (GFR) non- Americanon 20-60-1842DOZ/1.73 sq M.predicted among non- blacks MDRD (S/P/Bld) [Vol rate/Area]52 mL/min/{1.73_m2}Low>=60[facility] HospitalGlobulin Calc (S) [Mass/Vol]on 70-16-5561Srlipgbn (S) [Mass/Vol]3.5 g/dLPromedica Defiance Regional HospitalLaboratory - Chemistry and Chemistry - challengeon 22-50-7694Oogtdfr [Mass/Vol]3.9 g/dL3.4-5.0[facility] HospitalALP [Catalytic activity/Vol]91 U/S79-378TxpiaqpiaPromedica Defiance Regional HospitalALT [Catalytic activity/Vol]44 U/L07-15JsegcfjoiPromedica [facility] Regional HospitalAST [Catalytic activity/Vol]40 U/GCfyt15-25DynhzrvosPromedica Defiance Regional HospitalBilirubin [Mass/Vol]0.4 mg/dL0.2-1.0[facility] HospitalCalcium [Mass/Vol]9.3 mg/dL8.5-10.1FTri[facility] Chloride [Moles/Vol]110 mmol/JGoqy18-671NwkfvrllqPromedica Def[facility] Regional HospitalCO2 [Moles/Vol]26.2 mmol/L21.0-32.0[facility] HospitalCreatinine [Mass/Vol]1.07 mg/dLHigh0.55-1.02[facility] HospitalGFR/1.73 sq M.predicted MDRD (S/P/Bld) [Vol rate/Area]mL/min/{1.73_m2}>=60[facility] HospitalGlucose [Mass/Vol]127 mg/oPIgtp25-000FwxytmdzePromedica Defiance Regional HospitalPotassium [Moles/Vol]4.7 mmol/L3.5-5.1FT[facility] Protein [Mass/Vol]7.4 g/dL6.4-8.2FDoctors Hospitalodium [Moles/Vol]145 mmol/V421-777GooozwmwfPromedica Defiance Regional HospitalUrea nitrogen [Mass/Vol]12.0 mg/dL7.0-18.0[facility] HospitalUrea nitrogen/Creatinine [Mass ratio]11.2 mg/mgKettering Health Washington Townshiperum or plasma albumin/globulin mass ratioon 33-80-2133Xghnrjx/Globulin [Mass ratio] 1.1 {ratio}[facility] Townshiperum or plasma anion gap determinationon 77-80-4787Qt[place] gap [Moles/Vol]13.5 mmol/LFTriHealth McCullough-Hyde Memorial HospitalCholesterol in LDL Calc [Mass/Vol]on 61-02-0762Ggizjjjhtnh in LDL [Mass/Vol]31.0 mg/dLPromedica Defiance Regional HospitalComment on above:<100 mg/dl CUQAKZZ137-337 mg/dl NEAR OR ABOVE OXCMGJS592-065 mg/dl BORDERLINE TJMV602-017 mg/dl HIGH>190 mg/dl VERY HIGHCholesterol in VLDL Calc [Mass/Vol]on 09-26-2023 Cholesterol in VLDL [Mass/Vol]47.8 mg/dLPromedica Defiance Regional Hospital Estimated glomerular filtration rate (GFR) non- Americanon 09-26-2023 GFR/1.73 sq M.predicted among non-blacks MDRD (S/P/Bld) [Vol rate/Area] mL/min/{1.73_m2}>=60[facility] HospitalGlucose mean value [Mass/volume] in Blood Estimated from glycated hemoglobinon 08-27-9179Xrhshti glucose Estimated from glycated hemoglobin (Bld) [Mass/Vol]189 mg/dLPromedica Defiance Regional HospitalLaboratory - Chemistry and Chemistry - challengeon 45-98-9557Msxgskgwoxa [Mass/Vol]120 mg/dL<=200[facility] Cholesterol in HDL [Mass/Vol]42 mg/tR61-00GfqesetttPromedica [facility] Hospital Comment on above:> or =60 mg/dl - LOW CARDIOVASCULAR RISK<40 mg/dl - HIGH CARDIOVASCULAR RISKCreatinine [Mass/Vol]0.89 mg/dL0.55-1.02[facility] HospitalGFR/1.73 sq M.predicted MDRD (S/P/Bld) [Vol rate/Area] mL/min/{1.73_m2}>=60[facility] HospitalGlucose [Mass/Vol]182 mg/dL Ipyu39-836XlrsqtelfPromedica Defiance Regional HospitalTriglyceride [Mass/Vol]239 mg/dLHigh <=150[facility] HospitalTSH Qn2.178 m[IU]/L0.358-3.740[facility] HospitalLaboratory - Hematology and Cell countson 17-23-0573QtS1d (Bld) [Mass fraction]8.2 %High4.5-6.2FTriHealth McCullough-Hyde Memorial HospitalComment on above:ADA RECOMMENDED LIMIT 4.0 - 6.0ADA THERAPEUTIC TARGET < 7.0ACTION SUGGESTED> 7.0No Panel Informationon 55-25-1174Mtygghl Level0.7 mmol/L0.5-1.2 [facility] HospitalComment on above:A concentration of 0.5-0.8 mmol/L is advised for long-termuse; concentrations of up to 1.2 mmol/L may be necessaryduring acute treatment. Detection Limit = 0.1 <0.1 indicates None DetectedPerformed at: - [facility] [address] [id number] Director: Wojciech Farah PhD, Phone: [phone] or plasma total cholesterol/high density lipoprotein (HDL) cholesterol mass alix 04-78-9052Kkqkgqyujsf.total/Cholesterol in HDL [Mass ratio]2.9 {ratio}[facility] HospitalComment on above:3.3 - 4.4 LOW RISK4.4 - 7.1 AVERAGE RISK7.1 - 11.0 MODERATE RISK>11.0 HIGH RISKBasophils Auto (Bld) [#/Vol]Ordered By: Ibrahima Chand on 43-05-0513Qfaxlbfwo (Bld) [#/Vol]0.0 10*3/uL0.0-0.2FTriHealth McCull[facility]-Hy[facility] Memorial HospitalBasophils/100 WBC Auto (Bld)Ordered By: Ibrahima Chand on 96-30-0289Zjxnzpjcp/100 WBC (Bld)0.5 %.[facility] HospitalCalcium [Mass/volume] in Serum or PlasmaOrdered By: Ibrahima Chand on 11-54-6093Vxamfnt [Mass/Vol]9.2 mg/dL8.6-10.3FTriHealth McCullough-Hyde Memorial HospitalCarbon dioxide, total [Moles/volume] in Serum or PlasmaOrdered By: Ibrahima Chand on 97-15-5976MB0 [Moles/Vol]25.7 mmol/L21.0-31.0[facility] HospitalChloride [Moles/volume] in Serum or PlasmaOrdered By: Ibrahima Chand on 06-50-6715Vqzthgts [Moles/Vol]106 mmol/U31-160SenbpjxzxPromedica Defiance Regional HospitalCreatinine [Mass/volume] in Serum or PlasmaOrdered By: Ibrahima Chand on 97-69-0224Elckqvkodi [Mass/Vol]0.79 mg/dL0.60-1.20[facility] HospitalEosinophils Auto (Bld) [#/Vol]Ordered By: Ibrahima Chand on 58-65-4755Soofbyxvlki (Bld) [#/Vol]0.0 10*3/uL0.0-0.45[facility] HospitalEosinophils/100 WBC Auto (Bld) Ordered By: Ibrahima Chand on 42-84-9227Uuvwyldvsqf/100 WBC (Bld)0.1 %.[facility] HospitalErythrocyte distribution width Auto (RBC) [Ratio]Ordered By: Ibrahima Chand on 64-93-2574Zkjmwdjwwtm distribution width (RBC) [Ratio]14.7 % 11.9-15.3FTriHealth McCullough-Hyde Memorial HospitalGlucose [Mass/volume] in Serum or PlasmaOrdered By: Ibrahima Chand on 04-82-9943Rbujmbo [Mass/Vol]157 mg/cD15-180 [facility] HospitalComment on above:ADA recommended reference rangeRandom Glucose Reference Range is dependent on time and content of last meal. Glucose of more than 200 mg/dL in a nonstressed, ambulatory subject supports the diagnosisof Diabetes Mellitus.Hematocrit Auto (Bld) [Volume fraction]Ordered By: Ibrahima Chand on 03-47-5681Uxelpmgenb (Bld) [Volume fraction] 43.1 %34.0-46.4FTriHealth McCullough-Hyde Memorial HospitalHemoglobin [Mass/volume] in BloodOrdered By: Ibrahima Chand on 36-67-7730Laxpypnykk (Bld) [Mass/Vol]14.0 g/dL 11.8-15.4FTriHealth McCullough-Hyde Memorial HospitalLeukocytes [#/volume] corrected for nucleated erythrocytes in Blood by Automated counOrdered By: Ibrahima Chand on 82-59-1565NPW corrected for nucl RBC Auto (Bld) [#/Vol]5.5 10*3/uL3.8-11.6 [facility] HospitalLymphocytes Auto (Bld) [#/Vol]Ordered By: Ibrahima Chand on 44-23-3432Prcktpsomgm (Bld) [#/Vol]1.1 10*3/uL1.00-4.8[facility] HospitalLymphocytes/100 WBC Auto (Bld)Ordered By: Ibrahima Chand on 38-73-1303Txgnyyhonfq/100 WBC (Bld)19.2 %.[facility]burgH Auto (RBC) [Entitic mass]Ordered By: Ibrahima Chand on 23-08-2524URF (RBC) [Entitic mass]27.6 pg24.7-34.3FTriHealth McCullough-Hyde Memorial HospitalMCHC Auto (RBC) [Mass/Vol] Ordered By: Ibrahima Chand on 41-66-7362TDTK (RBC) [Mass/Vol]32.5 g/dL32.0-35.0 [facility] HospitalMCV Auto (RBC) [Entitic vol]Ordered By: Ibrahima Chand on 41-35-4365TYC (RBC) [Entitic vol]84.9 lR06-152BvmmgepurPromedica Defiance Regional HospitalMonocytes Auto (Bld) [#/Vol]Ordered By: Ibrahiam Chand on 08-01-2023 Monocytes (Bld) [#/Vol]0.4 10*3/uL0.0-0.8[facility] Monocytes/100 WBC Auto (Bld)Ordered By: Ibrahima Chand on 44-19-3911Hkxiqzqlv/100 WBC (Bld)7.1 %.[facility] HospitalNeutrophils Auto (Bld) [#/Vol] Ordered By: Ibrahima Chand on 60-29-9778Rbtpvcbhbcb (Bld) [#/Vol]4.0 10*3/uL1.8-7.7 [facility] HospitalNeutrophils/100 WBC Auto (Bld)Ordered By: Ibrahima Chand on 55-17-7517Zzxyviiiwxw/100 WBC (Bld)73.1 %.[facility] HospitalNo Panel InformationOrdered By: Ibrahima Chand on 32-46-1344Jigvurhxs GFR (CKD-EPI)> 60.0 mL/MinPromedica Defiance Regional HospitalPharmacy Creatinine Clearance (Chem75.96[facility] HospitalNucleated erythrocytes [Presence] in Blood by Automated countOrdered By: Ibrahima Chand on 08-01-2023 Nucleated RBC Auto Ql (Bld)0.1 /100{WBC}0-0.5FTriHealth [facility] Platelet mean volume Auto (Bld) [Entitic vol]Ordered By: Ibrahima Chand on 63-65-2846Ikkygazf mean volume (Bld) [Entitic vol]8.3 fL6.3-10.7FTriHealth McCullough-Hyde Memorial HospitalPlatelets Auto (Bld) [#/Vol]Ordered By: Ibrahima Chand on 48-23-4238Ybhsqkido (Bld) [#/Vol]131 10*3/gN498-598VxsbrhbinPromedica Defiance Regional HospitalPotassium [Moles/volume] in Serum or PlasmaOrdered By: Geraldo García on 63-79-8612Qfjqcirzo [Moles/Vol]4.5 mmol/L3.5-5.1FTriHealth McCullough-Hyde Memorial HospitalRBC Auto (Bld) [#/Vol]Ordered By: Ibrahima Chand on 81-72-3724DZF (Bld) [#/Vol]5.07 10*6/uL3.60-5.00[facility] Townshiperum or plasma anion gap determinationOrdered By: Ibrahima Chand on 80-84-1448Cujzd gap [Moles/Vol] TNPPromedica Defiance Regional HospitalComment on above:Test not performedSodium [Moles/volume] in Serum or PlasmaOrdered By: Ibrahima Chand on 11-74-5070Bbcnlp [Moles/Vol]142 mmol/F300-976AwguidezhPromedica Defiance Regional HospitalUrea nitrogen [Mass/volume] in Serum or PlasmaOrdered By: Ibrahima Chand on 12-02-9570Ruaq nitrogen [Mass/Vol]9 mg/dL7-25[facility] HospitalWBC Auto (Bld) [#/Vol]Ordered By: Ibrahima Maciasain on 35-01-4941JQC (Bld) [#/Vol]5.5 10*3/uL3.8-11.6 [facility] HospitalHuman papilloma virus 16+18+31+33+35+39+45+51+52+56+58+59+66+68 DNA [Presence] in Pricila 55-82-2436JNE 16+18+31+33+35+39+45+51+52+56+58+59+66+68 DNA Probe+sig amp Ql (Cvx)Negative NegativePromedica Defiance Regional HospitalComment on above:This nucleic acid amplification test detects fourteen high-risk HPV types (16,18,31,33,35,39,45,51,52,56,58,59,66,68)without differentiation.Performed at: = - [address] [id number] Director: Venus Aceevdo MD, Phone: [phone] at: [facility] [address] [id number] Director: Venus Acevedo MD, Phone: [phone] Panel Informationon 77-47-0604VIJ High Risk Other CommentNote. [facility] HospitalComment on above:TESTS RESULT FLAG UNITS REF RANGE LAB DIAGNOSIS: 02 NEGATIVE FOR INTRAEPITHELIAL LESION OR MALIGNANCY.Specimen adequacy: 02 Satisfactory forevaluation. Endocervical and/or squamous metaplastic cells (endocervical component) are present.Performed by: 02 [employer] (ASCP). 02Note: Note 02 The Pap smear is a screening test designed to aid in the detection of premalignant and malignant conditions of the uterine cervix.It is not a diagnostic procedure and should not be used as the sole means of detecting cervical cancer. Both false-positive and false-negative reports do occur.Test Methodology: Note 02 This liquid based ThinPrep(R) pap test was screened with the use of an image guided system.HPV Genotype Reflex Not e 02 Criteria not met, HPV Genotype not performed. FLAG LEGEND: L-Low Normal,H-High Normal,LL-Alert Low,HH-Alert High <-Panic Low,>-Pa stephanie High,A-Abnormal,AA-Critical Abnormal Performed at:[address] [address] Venus Acevedo MD, Yrvsedpls Lab Test Patient AgeNote.[facility] HospitalComment on above:TESTS RESULT FLAG UNITS REF RANGE LAB Clinician Provided Cytology Information Source.............Cervix;Endocervix No. of containers..01 ThinPrep VialAge Irena HERNANDEZ Bailey... 29 FLAG LEGEND: L-Low Normal,H-High Normal,LL-Alert Low,HH-Alert High <-Panic Low,>-Panic High,A- Abnormal,AA-Critical Abnormal Performed a t:01 =[facility] [place] [address] [place] [address] Venus Acevdeo MD, Qqcvetjzw Auto (Bld) [#/Vol]Ordered By: Geraldo García on 48-89-1320Zlhufjjfr (Bld) [#/Vol]0.0 10*3/uL0.0-0.2FTriHealth McCullough-Hyde Memorial HospitalBasophils/100 WBC Auto (Bld)Ordered By: Geraldo García on 37-05-8782Nscujsrmv/100 WBC (Bld)0.6 %.[facility] Calcium [Mass/volume] in Serum or PlasmaOrdered By: Geraldo García on 79-90-0744Cenopyl [Mass/Vol]9.5 mg/dL8.6-10.3FTriHealth [facility]ull[facility] Carbon dioxide, total [Moles/volume] in Serum or PlasmaOrdered By: Geraldo García on 41-38-1371JG4 [Moles/Vol]27.6 mmol/L21.0-31.0[facility] HospitalChloride [Moles/volume] in Serum or PlasmaOrdered By: Geraldo García on 89-56-4179Qacgqukq [Moles/Vol]101 mmol/M93-738MjfqzxcdbPromedica Defiance Regional HospitalCreatinine [Mass/volume] in Serum or PlasmaOrdered By: Geraldo García on 86-94-2501Wjnxbdshrn [Mass/Vol]0.90 mg/dL0.60-1.20[facility] HospitalEosinophils Auto (Bld) [#/Vol]Ordered By: Geraldo García on 23-80-2101Acfvlddpeke (Bld) [#/Vol]0.0 10*3/uL0.0-0.45[facility] HospitalEosinophils/100 WBC Auto (Bld)Ordered By: Geraldo García on 09-36-0593Ryvylbjccwz/100 WBC (Bld)0.0 %.[facility] HospitalErythrocyte distribution width Auto (RBC) [Ratio]Ordered By: Geraldo García on 87-98-0968Dagmvvjdfwf distribution width (RBC) [Ratio]14.1 % 11.9-15.3FTriHealth McCullough-Hyde Memorial HospitalGlucose [Mass/volume] in Serum or PlasmaOrdered By: Geraldo García on 24-29-7940Lahdvii [Mass/Vol]333 mg/dL 70-100[facility] HospitalComment on above:ADA recommended reference rangeRandom Glucose Reference Range is dependent on time and content of last meal. Glucose of more than 200 mg/dL in a nonstressed, ambulatory subject supports the diagnosisof Diabetes Mellitus.Hematocrit Auto (Bld) [Volume fraction]Ordered By: Geraldo García on 28-61-4778Xaaruhnadr (Bld) [Volume fraction]39.2 %34.0-46.4FTriHealth McCullough-Hyde Memorial HospitalHemoglobin [Mass/volume] in BloodOrdered By: Geraldo García on 01-71-1853Excdykihqj (Bld) [Mass/Vol]13.0 g/dL11.8-15.4FTriHealth McCullough-Hyde Memorial HospitalLeukocytes [#/volume] corrected for nucleated erythrocytes in Blood by Automated coun Ordered By: Geraldo García on 78-78-7561DUC corrected for nucl RBC Auto (Bld) [#/Vol]4.8 10*3/uL3.8-11.6FTriHealth McCullough-Hyde Memorial HospitalLymphocytes Auto (Bld) [#/Vol]Ordered By: Geraldo García on 43-44-8971Ilmsgcanswt (Bld) [#/Vol]0.7 10*3/uL1.00-4.8[facility] HospitalLymphocytes/100 WBC Auto (Bld)Ordered By: Geraldo García on 93-32-1878Mronwdhndpz/100 WBC (Bld) 15.7 %.[facility]burgH Auto (RBC) [Entitic mass]Ordered By: Geraldo García on 99-44-2326BBL (RBC) [Entitic mass]27.7 pg24.7-34.3FTriHealth McCullough-Hyde Memorial HospitalMCHC Auto (RBC) [Mass/Vol]Ordered By: Geraldo García on 57-74-0760NNNN (RBC) [Mass/Vol]33.1 g/dL32.0-35.0[facility] HospitalMCV Auto (RBC) [Entitic vol]Ordered By: Geraldo García on 33-99-7265WSC (RBC) [Entitic vol]83.7 jP74-242IkxqbgkqcPromedica Defiance Regional HospitalMonocytes Auto (Bld) [#/Vol]Ordered By: Geraldo García on 52-92-2693Wzchjhcza (Bld) [#/Vol] 0.3 10*3/uL0.0-0.8[facility] HospitalMonocytes/100 WBC Auto (Bld) Ordered By: Geraldo García on 82-27-3278Bgkurcqwb/100 WBC (Bld)6.6 %. [facility] HospitalNeutrophils Auto (Bld) [#/Vol]Ordered By: Geraldo García on 86-82-0563Cbmbaejudme (Bld) [#/Vol]3.7 10*3/uL1.8-7.7 [facility] HospitalNeutrophils/100 WBC Auto (Bld)Ordered By: Geraldo García on 70-57-5255Ppoiwrqjzfp/100 WBC (Bld)77.1 %.[facility] HospitalNo Panel InformationOrdered By: Geraldo García on [id number] GFR (CKD-EPI)> 60.0 mL/MinPromedica Def[facility] Creatinine Clearance (ChemN/AFTriHealth McCullough-Hyde Memorial HospitalNucleated erythrocytes [Presence] in Blood by Automated countOrdered By: Geraldo García on 05-41-8583Gcopcoipc RBC Auto Ql (Bld)0.1 /100{WBC}0-0.5FTriHealth McCullough-Hyde Memorial HospitalPlatelet mean volume Auto (Bld) [Entitic vol]Ordered By: Geraldo García on 69-80-9335Rhxaifks mean volume (Bld) [Entitic vol]8.4 fL 6.3-10.7FTriHealth McCullough-Hyde Memorial HospitalPlatelets Auto (Bld) [#/Vol]Ordered By: Geraldo García on 36-80-5028Mqsksvwfc (Bld) [#/Vol]127 10*3/dF936-749 [facility] HospitalPotassium [Moles/volume] in Serum or Plasma Ordered By: Geraldo García on 44-14-6660Dryrsljyo [Moles/Vol]3.8 mmol/L 3.5-5.1FTriHealth McCullough-Hyde Memorial HospitalRBC Auto (Bld) [#/Vol]Ordered By: Geraldo García on 45-75-8915BPJ (Bld) [#/Vol]4.69 10*6/uL3.60-5.00[facility] Townshiperum or plasma anion gap determinationOrdered By: Geraldo García on 61-40-6621Fnqux gap [Moles/Vol]12.2 mmol/L6.0-15.0[facility] Washington Townshipodium [Moles/volume] in Serum or PlasmaOrdered By: Geraldo García on 77-47-1989Ajbjrl [Moles/Vol]137 mmol/Z477-951UmvymyfybPromedica Defiance Regional HospitalUrea nitrogen [Mass/volume] in Serum or PlasmaOrdered By: Geraldo García on 04-00-4521Atlt nitrogen [Mass/Vol]12 mg/dL7-25Prom[facility]iance [facility] HospitalWBC Auto (Bld) [#/Vol]Ordered By: Geraldo García on 44-90-7293VWM (Bld) [#/Vol]4.8 10*3/uL3.8-11.6FTriHealth [facility]ull[facility] MRI BREAST BILATERAL W WO CONTRASTon 83-49-8975BON BREAST BILATERAL W WO CONTRASTEXAMINATION: MRI OF THE BILATERAL BREASTS WITHOUT AND [...] Signed by: Anthony Pichardo MD 06/30/23 Final resultNormalMercy Jefferson Healthcare HospitalBasophils Auto (Bld) [#/Vol]Ordered By: Geraldo García on 73-66-1193Vjgaccund (Bld) [#/Vol]0.0 10*3/uL0.0-0.2 [facility] HospitalBasophils/100 WBC Auto (Bld)Ordered By: Geraldo García on 74-09-1065Rddfrubfm/100 WBC (Bld)0.5 %.[facility] HospitalCalcium [Mass/volume] in Serum or PlasmaOrdered By: Geraldo García on 72-57-4358Hkzccto [Mass/Vol]9.8 mg/dL8.6-10.3FTriHealth McCull[facility] Carbon dioxide, total [Moles/volume] in Serum or PlasmaOrdered By: Geraldo García on 05-51-4535NR3 [Moles/Vol]26.0 mmol/L21.0-31.0Prom[facility] HospitalChloride [Moles/volume] in Serum or PlasmaOrdered By: Geraldo García on 56-40-1120Gubufuiz [Moles/Vol]107 mmol/T42-406QojznveynPromedica Defiance Regional HospitalCreatinine [Mass/volume] in Serum or PlasmaOrdered By: Geraldo García on 25-28-6125Wweiexsmpu [Mass/Vol]0.93 mg/dL0.60-1.20[facility] HospitalEosinophils Auto (Bld) [#/Vol]Ordered By: Geraldo García on 41-17-8827Kcxxnkrqfee (Bld) [#/Vol]0.0 10*3/uL0.0-0.45[facility] HospitalEosinophils/100 WBC Auto (Bld)Ordered By: Geraldo García on 73-74-0710Krvmylmyysz/100 WBC (Bld)0.0 %.[facility] HospitalErythrocyte distribution width Auto (RBC) [Ratio]Ordered By: Geraldo García on 54-45-2770Euxororefff distribution width (RBC) [Ratio]14.0 % 11.9-15.3FTriHealth McCull[facility] Memorial HospitalGlucose [Mass/volume] in Serum or PlasmaOrdered By: Geraldo García on 10-84-7088Dkdzvsy [Mass/Vol]147 mg/dL 70-100Prom[facility] Defiance Regional HospitalComment on above:ADA recommended reference rangeRandom Glucose Reference Range is dependent on time and content of last meal. Glucose of more than 200 mg/dL in a nonstressed, ambulatory subject supports the diagnosisof Diabetes Mellitus.Hematocrit Auto (Bld) [Volume fraction]Ordered By: Geraldo García on 51-03-5345Qoilgwnzdj (Bld) [Volume fraction]38.9 %34.0-46.4FTriHealth McCullough-[facility]de Memorial HospitalHemoglobin [Mass/volume] in BloodOrdered By: Geraldo García on 78-79-7922Vnitioykfw (Bld) [Mass/Vol]12.9 g/dL11.8-15.4FTriHealth McCull[facility]de Memorial HospitalLeukocytes [#/volume] corrected for nucleated erythrocytes in Blood by Automated coun Ordered By: Geraldo García on 32-15-7438XJG corrected for nucl RBC Auto (Bld) [#/Vol]5.7 10*3/uL3.8-11.6FTriHealth McCull[facility] Memorial HospitalLymphocytes Auto (Bld) [#/Vol]Ordered By: Geraldo García on 71-48-8688Tkpkafqifps (Bld) [#/Vol]1.2 10*3/uL1.00-4.8[facility] HospitalLymphocytes/100 WBC Auto (Bld)Ordered By: Geraldo García on 05-87-3660Gpezqvagrpn/100 WBC (Bld) 21.5 %.[facility]H Auto (RBC) [Entitic mass]Ordered By: Geraldo García on 24-12-3004DXP (RBC) [Entitic mass]28.4 pg24.7-34.3FTriHealth McCull[facility] Memorial HospitalMCHC Auto (RBC) [Mass/Vol]Ordered By: Geraldo García on 30-44-9161QNYD (RBC) [Mass/Vol]33.1 g/dL32.0-35.0[facility] HospitalMCV Auto (RBC) [Entitic vol]Ordered By: Geraldo García on 97-24-9996NZZ (RBC) [Entitic vol]85.8 rH63-246TvpbvwmxzPromedica Defiance Regional HospitalMonocytes Auto (Bld) [#/Vol]Ordered By: Geraldo García on 70-29-7211Vkiuklmbe (Bld) [#/Vol] 0.4 10*3/uL0.0-0.8[facility] HospitalMonocytes/100 WBC Auto (Bld) Ordered By: Geraldo García on 27-07-8842Ktkzeooxm/100 WBC (Bld)6.5 %. [facility] HospitalNeutrophils Auto (Bld) [#/Vol]Ordered By: Geraldo García on 70-43-1446Oezetpejrat (Bld) [#/Vol]4.0 10*3/uL1.8-7.7 [facility] HospitalNeutrophils/100 WBC Auto (Bld)Ordered By: Geraldo García on 48-15-5979Cwnhojlrwov/100 WBC (Bld)71.5 %.[facility] HospitalNo Panel InformationOrdered By: Geraldo García on 01-55-1579Cutbokxyt GFR (CKD-EPI)> 60.0 mL/MinPromedica Defiance Regional Hospital Pharmacy Creatinine Clearance (ChemN/White HospitalNucleated erythrocytes [Presence] in Blood by Automated countOrdered By: Geraldo García on 04-64-7570Lmtiigwty RBC Auto Ql (Bld)0.0 /100{WBC}0-0.5FTriHealth McCullough-Hyde Memorial HospitalPlatelet mean volume Auto (Bld) [Entitic vol]Ordered By: Geraldo García on 67-31-9751Vnxoeaiu mean volume (Bld) [Entitic vol]7.9 fL 6.3-10.7FTriHealth McCullough-Hyde Memorial HospitalPlatelets Auto (Bld) [#/Vol]Ordered By: Geraldo García on 36-22-4565Dpdffixbw (Bld) [#/Vol]146 10*3/iM955-912 [facility] HospitalPotassium [Moles/volume] in Serum or Plasma Ordered By: Geraldo García on 81-33-9148Ptaxgooxq [Moles/Vol]4.2 mmol/L 3.5-5.1FTriHealth McCullough-Hyde Memorial HospitalRBC Auto (Bld) [#/Vol]Ordered By: Geraldo García on 28-82-7285EFH (Bld) [#/Vol]4.53 10*6/uL3.60-5.00[facility] Washington Townshiperum or plasma anion gap determinationOrdered By: Geraldo García on 35-57-2264Djyqd gap [Moles/Vol]13.2 mmol/L6.0-15.0[facility] Washington Townshipodium [Moles/volume] in Serum or PlasmaOrdered By: Geraldo García on 28-90-9265Uuxdim [Moles/Vol]142 mmol/Z776-331MkksjaoufPromedica Defiance Regional HospitalUrea nitrogen [Mass/volume] in Serum or PlasmaOrdered By: Geraldo García on 78-16-6664Fhmo nitrogen [Mass/Vol]12 mg/dL7-25[facility] HospitalWBC Auto (Bld) [#/Vol]Ordered By: Geraldo García on 58-63-1189OSY (Bld) [#/Vol]5.7 10*3/uL3.8-11.6FTriHealth [facility] MG MAMM LT DIAG FUon 33-77-7900SJ MAMM LT DIAG FUPatient: MELONY MANLEY Exam Date: 08/26/2022 : 1965 Gender:F Ordering : DR LITTLE STAFFORD . Admission #: [id number] Family : Order #: [id number] CLICK HERE TO VIEW EXAM RADIOLOGY REPORT [...] stomach cancer at age 54. LOCATION: [facility] BREAST COMPOSITION: Heterogeneously dense,which may obscure small [...] by: Thea Neumann M.D. on 08/26/2022 at 14:39Detwiler Memorial HospitalUS BREAST LEFT LIMITEDon 71-61-8922CM BREAST LEFT LIMITEDPatient: MELONY MANLEY Exam Date: 08/26/2022 : 1965 Gender:F Ordering : DR LITTLE STAFFORD . Admission #: [id number] Family : Order #: [id number] CLICK HERE TO VIEW EXAM RADIOLOGY REPORT [...] stomach cancer at age 54. LOCATION: [facility] BREAST COMPOSITION: Heterogeneously dense,which may obscure small [...] by: Thea Neumann M.D. on 08/26/2022 at 14:39[facility] MAMM SCREEN 3D SOLITARIO CADon 92-96-2913MD MAMM SCREEN 3D SOLITARIO CADPatient: MELONY MANLEY Exam Date: 08/01/2022 : 1965 Gender:F Ordering : DR LITTLE STAFFORD . Admission #: [id number] Family : Order #: [id number] CLICK HERE TO VIEW EXAM RADIOLOGY REPORT [...] stomach cancer at age 54. LOCATION: [facility] BREAST COMPOSITION: Heterogeneously dense,which may obscure small [...] by: Thea Neumann M.D. on 08/01/2022 at 12:26Detw[facility] Memorial HospitalXR DEXA BONE DENSITYon 08-45-1218TI DEXA BONE DENSITYEXAMINATION: XR DEXA BONE DENSITY, 08/01/2022 10:48 AM EDT HISTORY: [...] - Moderate Fracture Risk Electronically authenticated by: THAE NEUMANN Date: 2022-08-01 11:39[facility] ACOG PANEL 2: 30 to 65on 07-26-2022..NormalThe [facility] SpringfieldComment on above:Result Comment: Performed at: WBPerformed By: #### [id number] #### [facility] [address] [place] [address] Dr. Devon Prater Gdln ACOG Astmwlu20-29YywyynRjpUniversity Hospitals Conneaut Medical CenterComment on above:Performed By: #### [id number] #### [facility] [address] [address] [address] Devon GilletteDIAGNOSIS:CommentDetwiler Memorial HospitalComcorewell health greenville hospital on above: Result Comment: NEGATIVE FOR INTRAEPITHELIAL LESION OR MALIGNANCY. Performed at: WBPerformed By: #### [id number] #### [facility] [address] [address] [address] Devon GilletteHPV AptimaNegativeNormalNegativeThe [facility] on above:Result Comment: This nucleic acid amplification test detects fourteen high-risk HPV types (16,18,31,33,35,39,45,51,52,56,58,59,66,68) without differentiation. Performed at: =GPerformed By: #### [id number] #### [facility] [address] [place] [address] Dr. Devon GilletteHPV Genotype ReflexCommentFostoria City Hospital on above:Result Comment: Criteria not met, HPV Genotype not performed. Performed at: WBPerformed By: #### [id number] #### [place] [address] Dr. Devon GilletteMethodology:CommentFostoria City Hospital on above: Result Comment: This liquid based ThinPrep(R) pap test was screened with the use of an image guided system. Performed at: WBPerformed By: #### [id number] #### [place] [address] Dr[address] Devon GilletteNote:CommentFostoria City Hospital on above:Result Comment: The Pap smear is a screening test designed to aid in the detection of premalignant and malignant conditions of the uterine cervix. It is not a diagnostic procedure and should not be used as the sole means of detecting cervical cancer. Both false-positive and false-negative reports do occur. . Performed at: WBPerformed By: #### [id number] #### [facility] [address] [place] [address] Dr. Devon GillettePerformed by:CommentNoMemorial Health System [facility] on above: Result Comment: Bryan Girard, [employer] ([employer]) Performed at: WBPerformed By: #### [id number] #### [place] [address] Dr. Devon GilletteSpecimesnow adequacy:CommentFostoria City Hospital on above:Result Comment: Satisfactory for evaluation. Endocervical and/or squamous metaplastic cells (endocervical component) are present. Performed at: WBPerformed By: #### [id number] #### [facility] [address] [place] [address] Dr. Devon GilletteVAGINITIS/VAGINOSIS DNA PROBEon 73-98-5961Qtlzpag speciesNegative NormalNegativeOhiohealth Dublin Methodist HospitalComment on above:Performed By: #### VAGINT #### [facility] [address] [place] [address] Dr. Devon GilletteGardnerella vaginalisPositiveAbnormalNegativeOhiohealth Dublin Methodist HospitalComment on above:Performed By: #### VAGINT #### [facility] [address] [place] [address] Dr. Devon GilletteTrichomonas vaginalisNegativeNoashe memorial hospitalNegativeOhiohealth Dublin Methodist Hospital Comment on above:Performed By: #### VAGINT #### [facility] [address] [place] [address] Dr. Devon GilletteCULTURE URINEon 67-74-9027PRWYLIM URINECulture Observations: LIGHT GROWTH OF MIXED GENITAL LAZARO. NO POTENTIAL PATHOGENS SEEN.NormalThe [facility] SpringfieldComment on above:Performed By: #### GLUC, TSH, LIPID, CREA #### [facility] [address] [place] [address] Dr. Devon GilletteLITHIUMon 39-01-1451Wpxbozn (Eskalith(R)), Serum0.6 mmol/LNormal 0.5-1.2Ohiohealth Dublin Methodist HospitalComment on above:Result Comment: A concentration of 0.5-0.8 mmol/L is advised for long-term use; concentrations of up to 1.2 mmol/L may be necessary during acute treatment. Detection Limit = 0.1 <0.1 indicates None DetectedPerformed By: #### GLUC, TSH, LIPID, CREA #### [facility] [address] [place] [address] Dr. Devon GilletteCREATININEon 80-34-6714Rdfhcwclac [Mass/Vol]0.89 mg/dLNormal 0.55-1.02The [facility] SpringfieldComment on above:Performed By: #### GLUC, TSH, LIPID, CREA #### [facility] [address] [address] [address] Devon JoyGFR-AF MALAYSIAN>60Normal>=60The Clinton Memorial Hospitalment on above:Performed By: #### GLUC, TSH, LIPID, CREA #### [facility] [address] [address] [address] Devon JoyGFR-NON AF MALAYSIAN>60Normal>=60The [facility] SpringfieldComment on above:Performed By: #### GLUC, TSH, LIPID, CREA #### [facility] [address] [place] [address] Dr. Devon GilletteGLUCOSE BLOODon 33-42-4371Xxjznoa [Mass/Vol]118 mg/dLCritically xpqu55-661Tzz [facility] SpringfieldComment on above:Performed By: #### GLUC, TSH, LIPID, CREA #### [facility] [address] [place] [address] Dr. Devon GilletteLIPID PROFILEon 62-43-4478JKTY-HDL RATIO NORMSElyria Memorial HospitalComcorewell health greenville hospital on above:Result Comment: 3.3 - 4.4 LOW RISK 4.4 - 7.1 AVERAGE RISK 7.1 - 11.0 MODERATE RISK >11.0 HIGH RISKPerformed By: #### GLUC, TSH, LIPID, CREA #### [facility] [address] [place] [address] Dr. Devon GilletteCholesterol [Mass/Vol]128 mg/dLNormal<=200[facility] Comment on above:Performed By: #### GLUC, TSH, LIPID, CREA #### [facility] [address] [place] [address] Dr. Devon GilletteCholesterol in HDL [Mass/Vol]47 mg/mKHdcuwx79-20MilMemorial Hospital on above:Performed By: #### GLUC, TSH, LIPID, CREA #### [facility] [address] [place] [address] Dr. Devon GilletteCholesterol in LDL [Mass/Vol]34.6 mg/dLFostoria City Hospital on above:Performed By: #### GLUC, TSH, LIPID, CREA #### [facility] [address] [address] [address] Devon GilletteCholesterol.total/Cholesterol in HDL [Mass ratio]2.7 {ratio} NormalMemorial Hospital on above:Performed By: #### GLUC, TSH, LIPID, CREA #### [facility] [address] [address] [address] Devon Saldivar NORMAL> or = 60 mg/dl - LOW CARDIOVASCULAR RISK <40 mg/dl - HIGH CARDIOVASCULAR RISKFostoria City Hospital on above:Performed By: #### GLUC, TSH, LIPID, CREA #### [facility] [address] [place] [address] Dr. Devon Uriarte CALC NORMALSEE BELOWDetwiler Memorial HospitalComcorewell health greenville hospital on above:Result Comment: <100 mg/dl OPTIMAL 100 - 129 mg/dl NEAR OR ABOVE OPTIMAL 130 - 159 mg/dl BORDERLINE HIGH 160 - 189 mg/dl HIGH >190 mg/dl VERY HIGH Performed By: #### GLUC, TSH, LIPID, CREA #### [facility] [address] [place] [address] Dr. Devon GilletteTriglyceride [Mass/Vol]232 mg/dLCritically high<=150[facility] on above:Performed By: #### GLUC, TSH, LIPID, CREA #### [facility] [address] [place] [address] Dr. Devon Moore CALC46.4 mg/dLNoMemorial Health System [facility] on above: Performed By: #### GLUC, TSH, LIPID, CREA #### [facility] [address] [place] [address] Dr. Devon White 21-72-3125CIQ2.375 uIU/mLNormal0.358-3.740[facility]orial Hospital on above:Performed By: #### GLUC, TSH, LIPID, CREA #### [facility] [address] [place] [address] Dr. Devon Collins URINEon 45-57-9194VIKXIMU URINEIsolate 1 Proteus mirabilis 15,000 cfu/mL of ORGANISM [...] <=0.12 S F Nitrofurantoin 128 R F Trimethoprim/Sulfamethoxazole <=20 S FNormalThe [facility] SpringfieldComment on above:Performed By: #### URCX #### [facility] [address] [place] [address] Dr. Devon GilletteLITHIUMmarleni 10-10-3003Ldxlvqw (Eskalith(R)), Serum0.7 mmol/LNormal 0.5-1.2The Clinton Memorial Hospitalment on above:Result Comment: Plasma concentration of 0.5 - 0.8 mmol/L are advised for long-term use; concentrations of up to 1.2 mmol/L may be necessary during acute treatment. Detection Limit = 0.1 <0.1 indicates None DetectedPerformed By: #### GLUC, TSH, LIPID, CREA #### [facility] [address] [place] [address] Dr. Devon GilletteCREATININEmarleni 87-30-3337Jmmpfmgkhs [Mass/Vol]1.10 mg/dLCritically high0.55-1.02Ohio[facility] Dublin Methodist HospitalComment on above:Performed By: #### GLUC, TSH, LIPID, CREA #### [facility] [address] [place] [address] Dr. Devon JoyGFR-AF MALAYSIAN>60Normal>=60The [facility] SpringfieldComment on above:Performed By: #### GLUC, TSH, LIPID, CREA #### [facility] [address] [place] [address] Dr. Yilan ChangEGFR-NON AF QTMXUBJJ49 mL/min/1.18d8Jfgogbbwti low>=60[facility] on above:Performed By: #### GLUC, TSH, LIPID, CREA #### [facility] [address] [place] [address] Dr. Devon GilletteDIRECT LDLon 43-75-4720Xevbpwzsdca in LDL [Mass/Vol]133 mg/dL NormalThe [facility] SpringfieldComcorewell health greenville hospital on above:Performed By: #### GLUC, TSH, LIPID, CREA #### [facility] [address] [place] [address] Dr. Devon GilletteDLDL NORMALSEE [facility] SystemComcorewell health green[facility] hospital on above: Result Comment: <100 mg/dl OPTIMAL 100 - 129 mg/dl NEAR OR ABOVE OPTIMAL 130 - 159 mg/dl BORDERLINE HIGH 160 - 189 mg/dl HIGH >190 mg/dl VERY HIGHPerformed By: #### GLUC, TSH, LIPID, CREA #### [facility] [address] [place] [address] Dr. Devon GilletteGLUCOSE BLOODon 09-33-6136Vbrqajq [Mass/Vol]151 mg/dLCritically pedd73-773Wjv [facility] on above:Performed By: #### GLUC, TSH, LIPID, CREA #### [facility] [address] [place] [address] Dr. Devon CuellarID PROFILEon 71-67-7730OVRR-HDL RATIO NORMSEE [facility] SystemComcorewell health [facility] hospital on above:Result Comment: 3.3 - 4.4 LOW RISK 4.4 - 7.1 AVERAGE RISK 7.1 - 11.0 MODERATE RISK >11.0 HIGH RISKPerformed By: #### GLUC, TSH, LIPID, CREA #### [facility] [address] [place] [address] Dr. Devon GilletteCholesterol [Mass/Vol]244 mg/dLCritically high<=200The [facility] on above:Performed By: #### GLUC, TSH, LIPID, CREA #### [facility] [address] [place] [address] Dr. Devon De La Pazesterol in HDL [Mass/Vol]33 mg/dLCritically tzf55-71Okq [facility] SpringfieldComment on above:Performed By: #### GLUC, TSH, LIPID, CREA #### [facility] [address] [address] [address] Devon Hoskins.total/Cholesterol in HDL [Mass ratio]7.4 {ratio} NormalThe [facility] SpringfieldComment on above:Performed By: #### GLUC, TSH, LIPID, CREA #### [facility] [address] [address] [address] Devon Saldivar NORMAL> or = 60 mg/dl - LOW CARDIOVASCULAR RISK <40 mg/dl - HIGH CARDIOVASCULAR RISKDetwiler Memorial HospitalComment on above:Performed By: #### GLUC, TSH, LIPID, CREA #### [facility] [address] [address] [address] Devon GilletteTriglyceride [Mass/Vol]431 mg/dLCritically high<=150The [facility] SpringfieldComment on above:Performed By: #### GLUC, TSH, LIPID, CREA #### [facility] [address] [address] [address] Devon Gillette Vital Signs Date TimeVital SignValuePerforming ThrkoyjqwAekdkvjo82-62-4204 10:290400Body jafult81.85 kgSusan Ayala MD Work Phone: [phone] [place], [place] 4425610-08-2025 10:290400 Diastolic blood ecksgdic76 mm[Hg]Susan Ayala MD Work Phone: 1(210)892-[address] [place], [place] 4425610-08-2025 10:290400 Heart rate92 /William Ayala MD Work Phone: [phone])730-[address] [place], [place] 4425610-08-2025 10:29040 Respiratory rate16 /William Ayala MD Work Phone: [phone])[address]10-08-2025 10:290400 SaO2% (BldA) [Mass fraction]97 %Susan Ayala MD Work Phone: [phone])[address]10-08-2025 10:29-0400 Systolic blood mezpktoi623 mm[Hg]Susan Ayala MD Work Phone: [phone])[address]09-29-2025 10:00-0400 Body terzkg224.56 cmSusan Ayala MD Work Phone: [phone])[address] [place], [place] 9894709-29-2025 10:00-0400 Body mass index (BMI) [Ratio]26.2 kg/a4KpbueeSusan Ayala MD Work Phone: [phone])[address]09-29-2025 10:00-0400 Body .39 kgSusan Ayala MD Work Phone: [phone])[address] [place], [place] 9894709-29-2025 10:00-0400 Diastolic blood jldhpvuq84 mm[Hg]Susan Ayala MD Work Phone: [phone])[address] [place], [place] 9894709-29-2025 10:00-0400 Heart rate74 /minSusan Ayala MD Work Phone: [phone])[address] [place], [place] 9894709-29-2025 10:00-0400 Systolic blood ayttnjsg263 mm[Hg]Susan Ayala MD Work Phone: [phone] [place], [place] 9894705-29-2025 13:42-0400 Body wjjazm774.6 cmNicholas Brown DPM Work Phone: [facility] CenterFvyqvxmleo91-64-1912 13:42-0400Body mass index (BMI) [Ratio]28.15 kg/q7Iyfbqhgk Brown DPM Work Phone: [facility] CenterApgdgprygj79-23-2895 13:42-0400Body dvpcen05.39 kgNicholas Brown DPM Work Phone: [facility] CenterRjntsaqjdn54-16-1982 13:42-0400Respiratory rate16 /minGilson Brown DPM Work Phone: [facility] CenterGclyxdvecd36-89-9567 10:40-0400Body kjvajw319.6 cmNicholas Brown DPM Work Phone: [facility] CenterOjzfjhuexe56-74-9871 10:40-0400Body mass index (BMI) [Ratio]28.15 kg/r4Wcwhstzz Kostas DPM Work Phone: [facility] CenterKafjcxvxof49-74-9974 10:40-0400Body ctulkp04.39 kgGilson Portillo DPM Work Phone: [facility] CenterQvqjlzqxvo33-23-2501 10:40-0400Respiratory rate16 /ljGilson Kostas DPM Work Phone: [facility] CenterIjfhcysvsw41-31-3190 11:27-0400Body temperature 97.6 [degF]Susan Ayala MD Work Phone: [phone] [place], [place] 9894704-09-2025 11:27-0400 Body .21 kgSusan Ayala MD Work Phone: [phone] [place], [place] 9894704-09-2025 11:27-0400 Diastolic blood mm[Hg]Susan Ayala MD Work Phone: [phone])[address] [place], [place] 9894704-09-2025 11:27-0400 Heart rate77 /William Ayala MD Work Phone: [phone])[address] [place], [place] 9894704-09-2025 11:27-0400 Respiratory rate20 /William Ayala MD Work Phone: [phone])[address] [place], [place] 9894704-09-2025 11:27-0400 SaO2% (BldA) [Mass fraction]99 %Susan Ayala MD Work Phone: [phone]04-09-2025 11:27-0400 Systolic blood tanvhjxi929 mm[Hg]Susan Ayala MD Work Phone: [phone])[address] [place], [place] 9894703-13-2025 13:18-0400 Body oyvavi600.56 cmSusan Ayala MD Work Phone: [phone])[address]03-13-2025 13:18-0400 Body mass index (BMI) [Ratio]26.9 kg/i3OqqbjaSusan Ayala MD Work Phone: [phone])[address]03-13-2025 13:18-0400 Body bnhritkvskn15.8 [degF]Susan Ayala MD Work Phone: [phone])[address] [place], [place] 9894703-13-2025 13:18-0400 Body cucypj72.21 kgSusan Ayala MD Work Phone: [phone])[address] [place], [place] 9894703-13-2025 13:18-0400 Diastolic blood hakwsefn65 mm[Hg]Susan Ayala MD Work Phone: [phone])[address] [place], [place] 9894703-13-2025 13:18-0400 Heart vwbd162 /William Ayala MD Work Phone: [phone] [place], [place] 9894703-13-2025 13:18-0400 SaO2% (BldA) [Mass fraction]99 %Susan Ayala MD Work Phone: [phone])[address] [place], [place] 9894703-13-2025 13:18-0400 Systolic blood cvphixeb851 mm[Hg]Susan Ayala MD Work Phone: [phone])[address] [place], [place] 9894702-04-2025 08:44-0500 Body xyoopb443.56 cmSusan Ayala MD Work Phone: [phone] [place], [place] 9894702-04-2025 08:44-0500 Body mass index (BMI) [Ratio]27.1 kg/p5JphpfnSusan Ayala MD Work Phone: 1(659)[address] [place], [place] 9894702-04-2025 08:44-0500 Body cykttd65.66 kgSusan Ayala MD Work Phone: 1(419)[address] [place], [place] 9894702-04-2025 08:44-0500 Diastolic blood jdwfludz85 mm[Hg]Susan Ayala MD Work Phone: 1(767)[address] [place], [place] 9894702-04-2025 08:44-0500 Heart rate66 /William Ayala MD Work Phone: 1(050)[address] [place], [place] 9894702-04-2025 08:44-0500 Systolic blood muxujrsi664 mm[Hg]Susan Ayala MD Work Phone: 1(556)[address] [place], [place] 9894701-17-2025 13:26-0500 Body dtjanw635.56 cmSusan Ayala MD Work Phone: 1(072)[address]01-17-2025 13:26-0500 Body mass index (BMI) [Ratio]27.4 kg/d3MyvtakSusan Ayala MD Work Phone: 1(804)[address] [place], [place] 9894701-17-2025 13:26-0500 Body jnwguh95.57 kgSusan Ayala MD Work Phone: 1(092)[address] [place], [place] 9894701-17-2025 13:26-0500 Diastolic blood sjeyprwa82 mm[Hg]Susan Ayala MD Work Phone: 1(364)[address] [place], [place] 9894701-17-2025 13:26-0500 Heart jioq775 /William Ayala MD Work Phone: 1(940)[address] [place], [place] 9894701-17-2025 13:26-0500 Systolic blood pdyyxgmb857 mm[Hg]Susan Ayala MD Work Phone: 1(991)[address] [place], [place] 9894701-16-2025 11:45-0500 Body raefrb943.56 cmSusan Ayala MD Work Phone: 1(874)[address] [place], [place] 9894701-16-2025 11:45-0500 Body mass index (BMI) [Ratio]27.3 kg/h2LqadpcSusan Ayala MD Work Phone: 1(962)[address] [place], [place] 9894701-16-2025 11:45-0500 Body ucplvgodgbi29.6 [degF]Susan Ayala MD Work Phone: 1(497)[address] [place], [place] 9894701-16-2025 11:45-0500 Body ldsjam08.12 kgSusan Ayala MD Work Phone: 1(606)[address] [place], [place] 9894701-16-2025 11:45-0500 Diastolic blood ynzxjrcp12 mm[Hg]Susan Ayala MD Work Phone: 1(430)[address] [place], [place] 9894701-16-2025 11:45-0500 Heart selu162 /William Ayala MD Work Phone: 1(593)[address] [place], [place] 9894701-16-2025 11:45-0500 Respiratory rate20 /William Ayala MD Work Phone: 1(657)[address] [place], [place] 9894701-16-2025 11:45-0500 SaO2% (BldA) [Mass fraction]99 %Susan Ayala MD Work Phone: 1(161)[address] [place], [place] 9894701-16-2025 11:45-0500 Systolic blood yvwcbxyg437 mm[Hg]Susan Ayala MD Work Phone: 1(720)[address] [place], [place] 9894701-10-2025 11:14-0500 Body tievjt998.56 cmSusan Ayala MD Work Phone: 1(367)[address] [place], [place] 9894701-10-2025 11:14-0500 Body mass index (BMI) [Ratio]27.1 kg/r9DbdcspSusan Ayala MD Work Phone: 1(751)[address] [place], [place] 9894701-10-2025 11:14-0500 Body whqtzbluqko21.9 [degF]Susan Ayala MD Work Phone: 1(612)[address] [place], [place] 9894701-10-2025 11:14-0500 Body dxxiop42.66 kgSusan Ayala MD Work Phone: 1(790)[address] [place], [place] 9894701-10-2025 11:14-0500 Diastolic blood eokxynwo23 mm[Hg]Susan Ayala MD Work Phone: 1(758)[address] [place], [place] 9894701-10-2025 11:14-0500 Heart rate93 /William Ayala MD Work Phone: 1(038)[address] [place], [place] 9894701-10-2025 11:14-0500 SaO2% (BldA) [Mass fraction]99 %Susan Ayala MD Work Phone: 1(571)[address] [place], [place] 9894701-10-2025 11:14-0500 Systolic blood ltyffyqd119 mm[Hg]Susan Ayala MD Work Phone: 1(971)[address] [place], [place] 9894712-04-2024 12:50-0500 Body .6 cmChristy Quick MD Work Phone: [facility]Jhzjygdgjx37-75-5503 12:50-0500Diastolic blood woaocbzx11 mm[Hg]Christy Quick MD Work Phone: [facility] CenterHynhjukqmu45-16-9155 12:50-0500Systolic blood qkyadozg335 mm[Hg]Christy Quick MD Work Phone: 1(594)8928576[facility] CenterJhibhesurb20-13-2850 14:49-0500Body bogdfn1454.72 cmSusan Ayala MD Work Phone: 1(806)[address]11-18-2024 14:49-0500 Body mass index (BMI) [Ratio]0.1 kg/m1ZwdcwuSusan Ayala MD Work Phone: 1(087)[address]11-18-2024 14:49-0500 Body .76 kgSusan Ayala MD Work Phone: 1(777)[address] [place], [place] 9894711-18-2024 14:49-0500 Diastolic blood jmawxbea03 mm[Hg]Susan Ayala MD Work Phone: 1(280)[address] [place], [place] 9894711-18-2024 14:49-0500 Heart rate87 /minSusan Ayala MD Work Phone: 1(711)[address]11-18-2024 14:49-0500 Systolic blood kihbviki511 mm[Hg]Susan Ayala MD Work Phone: 1(879)[address]11-15-2024 10:31-0500 Body zeurkn927.56 cmSusan Ayala MD Work Phone: 1(285)[address]11-15-2024 10:31-0500 Body mass index (BMI) [Ratio]26.7 kg/b3QwjwreSusan Ayala MD Work Phone: 1(637)42487 [address]11-15-2024 10:31-0500 Body txzyjiubsbr89.9 [degF]Susan Ayala MD Work Phone: 1(268)[address]11-15-2024 10:31-0500 Body .76 kgSusan Ayala MD Work Phone: 1(419)483-[address] [place], [place] 4425611-15-2024 10:31-0500 Diastolic blood qbkbijhq91 mm[Hg]Susan Ayala MD Work Phone: 1(982)30287 [address]11-15-2024 10:31-0500 Heart rate91 /William Ayala MD Work Phone: 1(646)[address] [place], [place] 9894711-15-2024 10:31-0500 Respiratory rate16 /William Ayala MD Work Phone: 1(720)[address] [place], [place] 9894711-15-2024 10:31-0500 SaO2% (BldA) [Mass fraction]99 %Susan Ayala MD Work Phone: 1(629)[address] [place], [place] 9894711-15-2024 10:31-0500 Systolic blood zvyjkxmv438 mm[Hg]Susan Ayala MD Work Phone: 1(238)[address] [place], [place] 9894711-09-2024 09:13-0500 Body jzikzo836.56 cmSusan Ayala MD Work Phone: 1(199)[address] [place], [place] 9894711-09-2024 09:13-0500 Body mass index (BMI) [Ratio]27.3 kg/f1ZdekrdSusan Ayala MD Work Phone: 1(294)[address] [place], [place] 9894711-09-2024 09:13-0500 Body zjrayfcznri67.5 [degF]Susan Ayala MD Work Phone: 1(674)[address] [place], [place] 9894711-09-2024 09:13-0500 Body lfkdsy91.12 kgSusan Ayala MD Work Phone: 1(963)[address] [place], [place] 9894711-09-2024 09:13-0500 Diastolic blood pnteomfg62 mm[Hg]Susan Ayala MD Work Phone: 1(883)[address] [place], [place] 9894711-09-2024 09:13-0500 Heart rate94 /William Ayala MD Work Phone: 1(501)[address] [place], [place] 9894711-09-2024 09:13-0500 Respiratory rate16 /William Ayala MD Work Phone: [facility]11-09-2024 09:13-0500 SaO2% (BldA) [Mass fraction]97 %Susan Ayala MD Work Phone: 1(958)766-[address] [place], [place] 4425611-09-2024 09:13-0500 Systolic blood qerhfckc220 mm[Hg]Susan Ayala MD Work Phone: 1(510)[address]10-31-2024 13:23-0400 Body sjsygi678.6 cmGilson Kostas DPM Work Phone: [facility] CenterBvojyflsvi57-09-5019 13:23-0400Body mass index (BMI) [Ratio]28.15 kg/y4Mzlcihtm Kostas DPM Work Phone: [facility] CenterFgkhrzmlqo70-79-2820 13:23-0400Body pveval52.39 kgGilson Kostas DPM Work Phone: [facility] CenterXjfagqfhfz79-58-6936 13:23-0400Heart rate81 /min Gilson Portillo DPM Work Phone: [facility] CenterUkxdrwgdah50-27-4520 08:13-0400Body tizycz595.56 cmMD Susan Ayala Work Phone: 1(110)086-[address] [place], [place] 4425610-15-2024 08:13-0400 Body mass index (BMI) [Ratio]27.1 kg/m2MD Susan Ayala Work Phone: 1(715)692-[address] [place], [place] 4425610-15-2024 08:13-0400 Body gtlirr58.78 kgMD Susan Ayala Work Phone: 1(602)871-[address] [place], [place] 4425610-15-2024 08:13-0400 Diastolic blood bzcnfved15 mm[Hg]MD Susan Ayala Work Phone: 1(346)864-[address] [place], [place] 4425610-15-2024 08:13-0400 Heart rate89 /minMD Susan Ayala Work Phone: 1(157)813-[address] [place], [place] 4425610-15-2024 08:13-0400 Respiratory rate16 /minMD Susan Ayala Work Phone: 1(614)427-[address] [place], [place] 4425610-15-2024 08:13-0400 SaO2% (BldA) [Mass fraction]97 %MD Susan Ayala Work Phone: 1(026)[address] [place], [place] 9894710-15-2024 08:13-0400 Systolic blood dlasfbwh923 mm[Hg]MD Susan Ayala Work Phone: 1(904)[address] [place], [place] 9894710-10-2024 13:01-0400 Body ywgkch992.56 cmMD Susan Ayala Work Phone: 1(752)[address] [place], [place] 9894710-10-2024 13:01-0400 Body mass index (BMI) [Ratio]27.3 kg/m2MD Susan Ayala Work Phone: 1(720)[address] [place], [place] 9894710-10-2024 13:01-0400 Body jkezyexvxji54.2 [degF]MD Susan Ayala Work Phone: 1(858)[address] [place], [place] 9894710-10-2024 13:01-0400 Body avalra26.12 kgMD Susan Ayala Work Phone: 1(715)[address] [place], [place] 9894710-10-2024 13:01-0400 Diastolic blood zxskqssa36 mm[Hg]MD Susan Ayala Work Phone: 1(492)[address] [place], [place] 9894710-10-2024 13:01-0400 Heart rate82 /minMD Susan Ayala Work Phone: 1(274)[address] [place], [place] 9894710-10-2024 13:01-0400 Respiratory rate20 /minMD Susan Ayala Work Phone: 1(806)[address] [place], [place] 9894710-10-2024 13:01-0400 SaO2% (BldA) [Mass fraction]100 %MD Susan Ayala Work Phone: 1(233)[address] [place], [place] 9894710-10-2024 13:01-0400 Systolic blood mm[Hg]MD Susan Ayala Work Phone: 1(501)[address]08-28-2024 13:56-0400 Body rtsmorkdbcd24.1 [degF]MD Susan Ayala Work Phone: 1(701)[address]08-28-2024 13:56-0400 Body erpbqb23.12 kgMD Susan Ayala Work Phone: [facility]08-28-2024 13:56-0400 Diastolic blood faffbxfm22 mm[Hg]MD Susan Ayala Work Phone: [facility]08-28-2024 13:56-0400 Heart awvi577 /minMD Susan Ayala Work Phone: 1(163)922-15[facility]08-28-2024 13:56-0400 Respiratory rate16 /minMD Susan Ayala Work Phone: 1(482)937-98[facility]08-28-2024 13:56-0400 SaO2% (BldA) [Mass fraction]98 %MD Susan Ayala Work Phone: [facility]08-28-2024 13:56-0400 Systolic blood wevwguwv436 mm[Hg]MD Susan Ayala Work Phone: [facility]08-22-2024 13:13-0400 Body lgtjki839.6 cmGilson Portillo DPM Work Phone: [facility] CenterNdrdgeqnxo31-14-6379 13:13-0400Body mass index (BMI) [Ratio]28.15 kg/e5RjlsbqtnGilson Portillo DPM Work Phone: 1(280)337-[facility] CenterGthjxxvkbu31-95-5651 13:13-0400Body .39 kgGilson Portillo DPM Work Phone: [facility] CenterDujuhuqdxs48-57-9116 13:13-0400Diastolic blood yegirgcx69 mm[Hg]Gilson Portillo DPM Work Phone: [facility] CenterNnaenfwhbr45-28-3092 13:13-0400Heart rate89 /min Gilson Portillo DPM Work Phone: [facility] CenterVghexkcnyr20-71-3546 13:13-0400Systolic blood zjrcubnl371 mm[Hg]Gilson Portillo DPM Work Phone: 1(032)976-[address] [place], [place] [address]Rsnljutptn72-18-4944 09:56-0400Body izfdbf710.56 cmMD Susna Ayala Work Phone: 1(337)[address]08-15-2024 09:56-0400 Body mass index (BMI) [Ratio]27.1 kg/m2MD Susan Ayala Work Phone: 1(010)[address] [place], [place] 9894708-15-2024 09:56-0400 Body tveyxdtdpzj75.9 [degF]MD Susan Ayala Work Phone: 1(096)245[address]08-15-2024 09:56-0400 Body syfjlz29.66 kgMD Susan Ayala Work Phone: 1(302)[address] [place], [place] 9894708-15-2024 09:56-0400 Diastolic blood kqitqvli93 mm[Hg]MD Susan Ayala Work Phone: 1(909)[address] [place], [place] 9894708-15-2024 09:56-0400 Heart rate95 /minMD Susan Ayala Work Phone: 1(323)[address]08-15-2024 09:56-0400 Respiratory rate20 /minMD Susan Ayala Work Phone: 1(763)[address] [place], [place] 9894708-15-2024 09:56-0400 SaO2% (BldA) [Mass fraction]100 %MD Susan Ayala Work Phone: 1(667)[address]08-15-2024 09:56-0400 Systolic blood ebukhwel451 mm[Hg]MD Susan Ayala Work Phone: 1(430)[address]07-30-2024 09:05-0400 Diastolic blood evihclqe07 mm[Hg]MD Susan Ayala Work Phone: 1(442)907[address]07-30-2024 09:05-0400 Heart rate66 /minMD Susan Ayala Work Phone: 1(615)[address]07-30-2024 09:05-0400 Respiratory rate20 /minMD Susan Ayala Work Phone: 1(056)440[address]07-30-2024 09:05-0400 SaO2% (BldA) [Mass fraction]100 %MD Susan Ayala Work Phone: 1(900)[address]07-30-2024 09:05-0400 Systolic blood mcidcidc724 mm[Hg]MD Susan Ayala Work Phone: 1(077)[address]07-15-2024 08:09-0400 Body .56 cmMD Susan Ayala Work Phone: 1(788)434[address]07-15-2024 08:09-0400 Body xrsiva53.84 kgMD Susan Ayala Work Phone: 1(600)[address]06-18-2024 12:53-0400 Body ivkoki428.56 cmMD Susan Ayala Work Phone: 1(645)[address] [place], [place] 9894706-18-2024 12:53-0400 Body mass index (BMI) [Ratio]27.8 kg/m2MD Susan Ayala Work Phone: 1(172)07[address]06-18-2024 12:53-0400 Body irekefgjvge39.9 [degF]MD Susan Ayala Work Phone: 1(936)[address]387 [address]06-18-2024 12:53-0400 Body nwwetp92.48 kgMD Susan Ayala Work Phone: 1(116)[address]06-18-2024 12:53-0400 Diastolic blood nfgidxrs92 mm[Hg]MD Susan Ayala Work Phone: 1(415)[address]06-18-2024 12:53-0400 Heart rate85 /minMD Susan Ayala Work Phone: 1(835)664-[address] [place], [place] 4425606-18-2024 12:53-0400 Respiratory rate16 /minMD Susan Ayala Work Phone: 1(886)[address]06-18-2024 12:53-0400 SaO2% (BldA) [Mass fraction]98 %MD Susan Ayala Work Phone: 1(029)[address]487 [address]06-18-2024 12:53-0400 Systolic blood hnwijfem259 mm[Hg]MD Susan Ayala Work Phone: 1(095)049-07[facility]06-05-2024 13:21040 Body chccyx574.56 cmMD Susan Ayala Work Phone: 1(811)[address]06-05-2024 13:21-0400 Body mass index (BMI) [Ratio]28.3 kg/m2MD Susan Ayala Work Phone: 1(728)[address]06-05-2024 13:21-0400 Body efwgupwhjyf48 [degF]MD Susan Ayala Work Phone: 1(756)[address]06-05-2024 13:040 Body joodry23.84 kgMD Susan Ayala Work Phone: 1(441)16[address]06-05-2024 13:21-0400 Diastolic blood knwpekqm65 mm[Hg]MD Susan Ayala Work Phone: 1(585)25587 [address]06-05-2024 13:21-0400 Heart tscg761 /minMD Susan Ayala Work Phone: 1(213)145[address]06-05-2024 13:21-0400 Respiratory rate20 /minMD Susan Ayala Work Phone: 1(742)28987 [address]06-05-2024 13:21-0400 SaO2% (BldA) [Mass fraction]98 %MD Susan Ayala Work Phone: 1(366)41987 [address]06-05-2024 13:21-0400 Systolic blood nwkkbvot201 mm[Hg]MD Susan Ayala Work Phone: 1(388)[address]05-28-2024 13:01040 Body .56 cmMD Susan Ayala Work Phone: 1(712)64087 [address]05-28-2024 13:010400 Body mass index (BMI) [Ratio]28.5 kg/m2MD Susan Ayala Work Phone: 1(384)[address]05-28-2024 13:01040 Body ldkjav82.29 kgMD Susan Ayala Work Phone: 1(398)966-70[facility]05-28-2024 13:01-0400 Diastolic blood uwbjftqm10 mm[Hg]MD Susan Ayala Work Phone: 1(332)[address]05-28-2024 13:01-0400 Heart rate83 /minMD Susan Ayala Work Phone: 1(900)[address]387 [address]05-28-2024 13:01-0400 Systolic blood emmfabgo357 mm[Hg]MD Susan Ayala Work Phone: 1(334)73287 [address]05-16-2024 10:59-0400 Body kxyufk958.56 cmMD Susan Ayala Work Phone: 1(316)030[address]05-16-2024 10:59-0400 Body mass index (BMI) [Ratio]28.1 kg/m2MD Susan Ayala Work Phone: 1(767)[address]05-16-2024 10:59-0400 Body putlxvqnape56 [degF]MD Susan Ayala Work Phone: 1(872)924[address]05-16-2024 10:59-0400 Body deybnk74.38 kgMD Susan Ayala Work Phone: 1(011)43187 [address]05-16-2024 10:59-0400 Diastolic blood vbgtitlb73 mm[Hg]MD Susan Ayala Work Phone: 1(892)99887 [address]05-16-2024 10:59-0400 Heart rate77 /minMD Susan Ayala Work Phone: 1(578)[address]05-16-2024 10:59-0400 Respiratory rate18 /minMD Susan Ayala Work Phone: 1(942)115[address]05-16-2024 10:59-0400 SaO2% (BldA) [Mass fraction]100 %MD Susan Ayala Work Phone: 1(226)631[facility]35[facility]05-16-2024 10:59-0400 Systolic blood amngnwlp729 mm[Hg]MD Susan Ayala Work Phone: 1(878)997-[address] [place], [place] 4425604-23-2024 13:44-0400 Diastolic blood zxprmrby62 mm[Hg]MD Susan Ayala Work Phone: 1(437)20587 [address]04-23-2024 13:44-0400 Heart rate67 /minMD Susan Ayala Work Phone: 1(764)51787 [address]04-23-2024 13:44-0400 Respiratory rate16 /minMD Susan Ayala Work Phone: 1(032)91787 [address]04-23-2024 13:44-0400 SaO2% (BldA) [Mass fraction]98 %MD Susan Ayala Work Phone: 1(824)43787 [address]04-23-2024 13:44-0400 Systolic blood rnianiou892 mm[Hg]MD Susan Ayala Work Phone: 1(851)[address] [place], [place] 9894704-23-2024 12:59-0400 Body beawtiwompz18 [degF]MD Susan Ayala Work Phone: 1(523)[address]187 [address]04-23-2024 12:29-0400 Inhaled oxygen flow rate8 L/minMD Susan Ayala Work Phone: 1(489)[address] [place], [place] 9894704-23-2024 11:31-0400 Body eikfeb09.84 kgMD Susan Ayala Work Phone: 1(478)[address]04-23-2024 11:15-0400 Body .56 cmMD Susan Ayala Work Phone: 1(588)55887 [address]04-05-2024 10:40-0400 Body uvcgnr869.56 cmMD Susan Ayala Work Phone: 1(555)[address] [place], [place] 9894704-05-2024 10:40-0400 Body mass index (BMI) [Ratio]28.1 kg/m2MD Susan Ayala Work Phone: 1(306)49087 [address]04-05-2024 10:40-0400 Body xsrkczutoqp07.5 [degF]MD Susan Ayala Work Phone: 1(527)62387 [address]04-05-2024 10:40-0400 Body .44 kgMD Susan Ayala Work Phone: 1(877)320-84[facility]04-05-2024 10:40-0400 Diastolic blood mm[Hg]MD Susan Ayala Work Phone: [facility]04-05-2024 10:40-0400 Heart rate85 /minMD Susan Ayala Work Phone: 1(700)106-88[facility]04-05-2024 10:40-0400 Systolic blood gzqzwsei996 mm[Hg]MD Susan Ayala Work Phone: 1(451)228-[address] [place], [place] 4425603-26-2024 13:50-0400 Diastolic blood mm[Hg]MD Susan Ayala Work Phone: 1(447)351-69[facility]03-26-2024 13:50-0400 Heart rate72 /minMD Susan Ayala Work Phone: 1(025)085-[address] [place], [place] 4425603-26-2024 13:50-0400 Respiratory rate16 /minMD Susan Ayala Work Phone: 1(881)874-43[facility]03-26-2024 13:50-0400 SaO2% (BldA) [Mass fraction]100 %MD Susan Ayala Work Phone: 1(272)136-98[facility]03-26-2024 13:50-0400 Systolic blood rgeuvfab778 mm[Hg]MD Susan Ayala Work Phone: 1(324)405-17[facility]03-26-2024 12:58-0400 Body xcdnznaqhwo14.4 [degF]MD Susan Ayala Work Phone: 1(693)019-[address] [place], [place] 4425603-26-2024 12:33-0400 Inhaled oxygen flow rate8 L/minMD Susan Ayala Work Phone: 1(595)854-[address] [place], [place] 4425603-26-2024 11:26-0400 Body kybncc577.56 cmMD Susan Ayala Work Phone: 1(696)306-[address] [place], [place] 4425603-26-2024 11:26-0400 Body mass index (BMI) [Ratio]28.3 kg/m2MD Susan Ayala Work Phone: 1(339)429-[address] [place], [place] 4425603-26-2024 11:26-0400 Body .84 kgMD Susan Ayala Work Phone: 1(065)989-[address] [place], [place] 4425603-05-2024 14:28-0500 Body .56 cmMD Susan Ayala Work Phone: 1(084)847-[address] [place], [place] 4425603-05-2024 14:28-0500 Body mass index (BMI) [Ratio]28.5 kg/m2MD Susan Ayala Work Phone: 1(276)81387 [address]03-05-2024 14:28-0500 Body dwcqev06.46 kgMD Susan Ayala Work Phone: 1(064)94[address]03-05-2024 14:28-0500 Diastolic blood wfovyrjv85 mm[Hg]MD Susan Ayala Work Phone: 1(323)803-[address] [place], [place] 4425603-05-2024 14:28-0500 Heart rate93 /minMD Susan Ayala Work Phone: 1(569)[address]87 [address]03-05-2024 14:28-0500 Systolic blood zxukpgry595 mm[Hg]MD Susan Ayala Work Phone: 1(266)[address]01-09-2024 10:00-0500 Body .2 [degF]MD Susan Ayala Work Phone: 1(446)954-[address] [place], [place] 4425601-09-2024 10:00-0500 Diastolic blood rcpktils53 mm[Hg]MD Susan Ayala Work Phone: 1(607)52187 [address]01-09-2024 10:00-0500 Heart rate87 /minMD Susan Ayala Work Phone: 1(705)546-[address] [place], [place] 4425601-09-2024 10:00-0500 Respiratory rate18 /minMD Susan Ayala Work Phone: 1(879)[address]01-09-2024 10:00-0500 SaO2% (BldA) [Mass fraction]99 %MD Susan Ayala Work Phone: [facility]01-09-2024 10:00-0500 Systolic blood vhpoapym165 mm[Hg]MD Susan Ayala Work Phone: [facility]12-26-2023 16:16-0500 Body kvubdh373.56 cmMD Susan yAala Work Phone: [facility]12-26-2023 16:16-0500 Body njakss16.7 kgMD Susan Ayala Work Phone: [facility]11-20-2023 14:00-0500 Body cyifhu525.56 cmSusan Ayala Other [employer] Other 11-20-2023 14:00-0500Body mass index (BMI) [Ratio] 28.49 kg/s4GeerzrSusan Ayala Other [employer] Other 11-20-2023 14:00-0500Body .3 kgSusan Ayala Other [employer] Other 11-20-2023 14:00-0500Diastolic blood aiwllqzz16 mm[Hg] Susan Ayala Other [employer] Other 11-20-2023 14:00-0500Systolic blood ywvxttps573 mm[Hg] Susan Ayala Other [employer] Other 10-02-2023 10:30-0400Body .56 cmSusan Ayala Other [employer] Other 10-02-2023 10:30-0400Body mass index (BMI) [Ratio] 29.01 kg/e3TqtmemSusan Ayala Other [employer] Other 10-02-2023 10:30-0400Body .66 kgSusan Ayala Other [employer] Other 10-02-2023 10:30-0400Diastolic blood oovkbilq08 mm[Hg] Susan Ayala Other [employer] Other 10-02-2023 10:30-0400Systolic blood mtumgola881 mm[Hg] Susan Ayala Other [employer] Other 08-23-2023 09:30-0400Body etqbek867.56 cmSusan Ayala Other [employer] Other 08-23-2023 09:30-0400Body mass index (BMI) [Ratio] 28.15 kg/a0TpktyiSusan Ayala Other [employer] Other 08-23-2023 09:30-0400Body uzsxts52.39 kgSusan Ayala Other [employer] Other 08-23-2023 09:30-0400Diastolic blood sbbbixij66 mm[Hg] Susan Ayala Other [employer] Other 08-23-2023 09:30-1919JdY1% (BldA) [Mass fraction]96 % Susan Ayala Other [employer] Other 08-23-2023 09:30-0400Systolic blood mm[Hg] Susan Ayala Other [employer] Other 05-09-2023 15:00-0400Body vldezi698.56 cmSusan Ayala Other [employer] Other 05-09-2023 15:00-0400Body mass index (BMI) [Ratio] 28.32 kg/a4BcnijzSusan Ayala Other [employer] Other 05-09-2023 15:00-0400Body qjrcez77.84 kgSusan Ayala Other [employer] Other 05-09-2023 15:00-0400Diastolic blood gytknctc38 mm[Hg] Susan Ayala Other [employer] Other 05-09-2023 15:00-6634PoK4% (BldA) [Mass fraction]98 % Susan Ayala Other [employer] Other 05-09-2023 15:00-0400Systolic blood pepcwdxr081 mm[Hg] Susan Ayala Other [employer] Other 03-01-2023 10:00-0500Body .56 cmSusan Ayala Other [employer] Other 03-01-2023 10:00-0500Body mass index (BMI) [Ratio] 28.66 kg/s4SickpiSusan Ayala Other [employer] Other 03-01-2023 10:00-0500Body jefamv06.75 kgSusan Ayala Other [employer] Other 03-01-2023 10:00-0500Diastolic blood mm[Hg] Susan Ayala Other [employer] Other 03-01-2023 10:00-7405AjY1% (BldA) [Mass fraction]98 % Susan Ayala Other [employer] Other 03-01-2023 10:00-0500Systolic blood mm[Hg] Susan Ayala Other [employer] Other 02-07-2023 11:00-0500Body tttodl814.56 cmRadhasejal Jamie Other [employer] Other 02-07-2023 11:00-0500Body mass index (BMI) [Ratio] 29.01 kg/u6GngupeSusan Ayala Other [employer] Other 02-07-2023 11:00-0500Body fpaavf62.66 kgRadhasejal Jamie Other [employer] Other 02-07-2023 11:00-0500Diastolic blood mnafnaal68 mm[Hg] Susan Ayala Other [employer] Other 02-07-2023 11:00-1399HvZ9% (BldA) [Mass fraction]98 % Susan Ayala Other [employer] Other 02-07-2023 11:00-0500Systolic blood nhnzgcei643 mm[Hg] Susan Ayala Other [employer] Other Encounters Encounter DateEncounter TypeCare ProviderFacilityStart: 82-53-6481yqpjqlkomy Gavin PlazaFacility:[facility] Townshiptart: 02-12-2025 End: 69-31-0695Lptyxvz encounter procedureChristine Velazquez MD-[facility] Work Phone: Start: 95-60-3887Cpknqwqajm RecurringChristine Mtz MD-[facility] Acute Work Phone: Start: 02-12-2025 End: 03-50-7482dtqslhgtmsUkbqcg E Braun MD Work Phone: [facility] Work Phone: Start: 29-10-4246Dmp-patient / Non-visitMhd [facility] Work Phone: Start: 02-03-2025 End: 29-68-3032kxwagkqplkMiqgns E Braun MD Work Phone: [facility] Work Phone: Start: 02-03-2025 End: 98-17-8518Jlzikoe encounter procedureSusan Ayala MD-[facility] Work Phone: Start: 10-03-2024 End: 14-53-1959Kblajx Ruddy Portillo DPM Work Phone: [facility] CI PODIATRYStart: 10-03-2024 End: 89-79-6658Bxxvvo flowsheetNicholas A Brown DPM Work Phone: [facility] PODIATRYStart: 10-03-2024 End: 92-04-3911Xymjon outpatient visit 15 minutesNicsaturnino Portillo DPM Work Phone: [facility] CI PODIATRYComment on above:Xerosis cutis (Primary Dx); Onychocryptosis; Toe pain, right; Pain due to onychomycosis of toenails of both feetStart: 10-03-2024 End: 16-12-9948jzeqblhiotEKYSGVCE A BROWNNot AvailableStart: 09-05-2024 End: 96-76-1622Viompu flowsheetNicholas A Brown DPM Work Phone: no[facility] CI PODIATRYStart: 09-05-2024 End: 87-65-3174Nbjmiq flowsheetNicholas A Brown DPM Work Phone: [facility] PODIATRYStart: 09-05-2024 End: 90-95-3997Vpcfvv outpatient visit 15 minutesGilson Portillo DPM Work Phone: NOIN CI PODIATRYComment on above:Xerosis cutis (Primary Dx); Onychocryptosis; Toe pain, rightStart: 09-05-2024 End: 22-62-0776jbpzdtwwwnCDQUILUM A BROWNNot AvailableStart: 08-14-2024 End: 24-11-8786nkmbdwheozNaawqe E Braun MD Work Phone: [facility] Work Phone: Start: 08-14-2024 End: 84-21-8375Cfjmahc encounter procedureSusan Ayala MD Work Phone: [facility] Physician [facility] Work Phone: Start: 84-84-1703Xta-patient / Non-visitSusan Ayala MD Work Phone: [facility] Physician [facility] Work Phone: Start: 07-18-2024 End: 42-95-2198fyrpicflqlWezuqi E Braun MD Work Phone: [facility] Work Phone: Start: 07-18-2024 End: 19-55-4273Tvfuajp encounter Joselyn Ayala MD Work Phone: [facility] Group[facility] Work Phone: Start: 04-99-9706Gybetxzivs RecurringSusan Ayala MD Work Phone: [facility] CredibleStart: 06-11-2024 End: 88-62-6367qofhrqqzioWbvdia E Braun MD Work Phone: [facility] Work Phone: Start: 06-11-2024 End: 87-14-2835Irszhlm encounter Joselyn Ayala MD Work Phone: [facility] Physician [facility] Work Phone: Start: 11-41-0715Klpbzmm encounter statusSusan Ayala MD Work Phone: [facility] Townshiptart: 05-24-2024 End: 52-61-0145qwmgbeuhwtEogymn E Braun MD Work Phone: [facility] Work Phone: Start: 05-24-2024 End: 25-88-3638Oplktsznt for general adult medical examination without abnormal findingsSusan Ayala MD Work Phone: [facility] Townshiptart: 05-24-2024 End: 26-30-5817Ugpbgav encounter procedureSusan Ayala MD Work Phone: [facility] Work Phone: Start: 24-12-1933Rsgolnqoqa RecurringSusan Ayala MD Work Phone: [facility] Work Phone: Start: 05-23-2024 End: 39-92-4978taiwtccudnStzlbj E Braun MD Work Phone: [facility] Work Phone: Start: 05-23-2024 End: 27-72-5943Fkikvhf encounter procedureSusan Ayala MD Work Phone: [facility] Work Phone: Start: 05-17-2024 End: 49-20-8595dhocpfrxrdExuoko E Braun MD Work Phone: [facility] Work Phone: Start: 05-17-2024 End: 76-68-8995Ywfihsz encounter procedureSusan Ayala MD Work Phone: [facility] Physician [facility] Work Phone: Start: 44-92-1280Hoy-patient / Non-visitSusan Ayala MD Work Phone: [facility] GroupVeter[facility] Administration Professional Co Work Phone: Start: 05-14-2024 End: 95-81-0149Dftlnfuof encounterChristy Quick MD Work Phone: [facility] CI ENTStart: 67-46-8267Qkndbnevbv Henok Ayala MD Work Phone: [facility] CredibleStart: 62-57-1056Ijearsxdcc Henok Ayala MD Work Phone: [facility] CredibleStart: 04-10-2024 End: 67-46-8729Nvlqnf flowsheetChristy Quick MD Work Phone: [facility] CI ENTStart: 04-10-2024 End: 15-07-3816Bgkcpc Tia Quick MD Work Phone: [facility] CI ENTStart: 04-10-2024 End: 54-74-5791Gurayj outpatient new 45 minutesChristy Qiuck MD Work Phone: [facility] CI ENTComment on above: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 Work Phone: Start: 03-25-2024 End: 93-03-0373Xdgqsvw encounter Joselyn Ayala MD Work Phone: [facility]Av[facility] Work Phone: Start: 55-99-2867Sqlvyfhpwe Henok Ayala MD Work Phone: [facility] Work Phone: Start: 03-22-2024 End: 50-19-6747lejfmyskisHhhgyc E Braun MD Work Phone: [facility] Work Phone: Start: 03-22-2024 End: 32-07-9778Ejkecsg encounter Joselyn Ayala MD Work Phone: [facility] Physician [facility] Work Phone: Start: 03-16-2024 End: 25-67-9496swwmxuquzcIatris E Braun MD Work Phone: [facility] Work Phone: Start: 03-16-2024 End: 25-03-7245Sfoonlv encounter Joselyn Ayala MD Work Phone: [facility]IR[facility] [place] Work Phone: Start: 03-07-2024 End: 58-21-8612Vaaiuw Ruddy Portillo DPM Work Phone: noms CI PODIATRYStart: 03-07-2024 End: 21-16-8442Dgvbie Ruddy Portillo DPM Work Phone: noMS CI PODIATRYStart: 03-07-2024 End: 17-70-2817Mbwrqkc encounter procedureGilson Portillo DPM Work Phone: noms CI PODIATRYComment on above:Pain due to onychomycosis of toenails of both feet (Primary Dx)Start: 03-07-2024 End: 54-93-4700udwwctqqsrXAXHAJGP A BROWNNot AvailableStart: 02-27-2024 Registered Henok Ayala MD Work Phone: [facility] CredibleStart: 02-20-2024 End: 46-48-5422eydbjiebiaMB Susan Ayala Work Phone: [facility] Work Phone: Start: 02-20-2024 End: 42-89-3615Iaspghg encounter procedureMD Susan Jamie Work Phone: [facility] Work Phone: Start: 39-12-9678Mkbstqbddy RecurringMD Susan Ayala Work Phone: [facility] [place] [facility] Work Phone: Start: 02-15-2024 End: 93-71-7167fvgwfnklklNC Susan Ayala Work Phone: [facility] Work Phone: Start: 02-15-2024 End: 55-71-0112Hbkuany encounter procedureMD Susan Jamie Work Phone: [facility] Physician [facility] Work Phone: Start: 38-73-2910Elv-patient / Non-visitMD Susan Jamie Work Phone: [facility] Physician [facility] Work Phone: Start: 52-69-5604Chpgattipx RecurringMD Susan Jamie Work Phone: [facility] CredibleStart: 01-03-2024 End: 11-04-7191wpxzfsvxexCC Susan Annette Jamie Work Phone: [facility] Work Phone: Start: 01-03-2024 End: 17-93-3371Axlylsk encounter procedureMD Susan Ayala Work Phone: [facility] Work Phone: Start: 84-94-6519Gotyteohla RecurringMD Susan Jamie Work Phone: [facility] Work Phone: Start: 12-28-2023 End: 75-35-4030Cchghw flowsheetNicsaturnino Sejal Portillo DPM Work Phone: noMS CI PODIATRYStart: 12-28-2023 End: 16-94-9913Otyvmp flowsheetNicsaturnino Sejal Portillo DPM Work Phone: noMS CI PODIATRYStart: 12-28-2023 End: 03-19-6905Eybknde encounter procedureNicconstantinoangelo Portillo DPM Work Phone: noMS CI PODIATRYComment on above:Onychomycosis (Primary Dx); Toe pain, bilateralStart: 12-28-2023 End: 81-84-0048gqxgcmerdgEXVQSSIW A BROWNNot AvailableStart: 14-78-0160Fdj- patient / Non-visitMD Susan Ayala Work Phone: [facility] GroupV[facility] Professional [facility] Work Phone: Start: 12-21-2023 End: 32-87-4172hnzqwmhdakJK Susan Ayala Work Phone: [facility] Work Phone: Start: 12-21-2023 End: 59-55-5671Bbztngt encounter procedureMD Susan Ayala Work Phone: [facility] Physician [facility] Work Phone: Start: 11-58-5308Wslbpvshfn RecurringMD Susan Ayala Work Phone: [facility] Work Phone: Start: 81-03-4234Djrvlyqkao RecurringMD Susan Ayala Work Phone: [facility] CredibleStart: 55-86-8297Vfq-patient / Non-visitMD Susan Ayala Work Phone: [facility]IR[facility] G[facility] Work Phone: Start: 35-54-3660Zvr-patient / Non-visitMD Susan Ayala Work Phone: [facility] Work Phone: Start: 12-05-2023 End: 82-08-5860Nwdrdyfav to same day surgery centerMD Susan Ayala Work Phone: [facility] Work Phone: Start: 12-05-2023 End: 39-41-2868gmdatbfnbqEI Susan Bryant Jamie Work Phone: [facility] Work Phone: Start: 32-30-4655Hhimpjgajt RecurringMD Susan Ayala Work Phone: [facility] Work Phone: Start: 82-89-6434Ozz-patient / Non-visitMD Susan Jamie Work Phone: [facility] Work Phone: Start: 76-12-0879Jkq-patient / Non-visitMD Susan Ayala Work Phone: [facility] Work Phone: Start: 75-48-7774Ghc-patient / Non-visitMD Susan Ayala Work Phone: [facility] Work Phone: Start: 75-92-6520Ooh-patient / Non-visitMD Susan Ayala Work Phone: [facility] Work Phone: Start: 29-59-3902Pkd-patient / Non-visitMD Susan Ayala Work Phone: [facility] Work Phone: Start: 60-20-1096Vig-patient / Non-visitMD Susan Ayala Work Phone: [facility] Work Phone: Start: 90-98-3845Qma-patient / Non-visitMD Susan Ayala Work Phone: [facility] Work Phone: Start: 16-56-6169Skx-patient / Non-visitMD Susan Ayala Work Phone: [facility] Work Phone: Start: 38-92-2697Ohlkjgture RecurringMD Susan Ayala Work Phone: [facility] CredibleStart: 10-25-2023 End: 37-96-8637wisxjlnvgsPEVLNTY H ITZKOWITZNot AvailableStart: 10-24-2023 End: 69-72-3132Lapcwtt encounter procedureMD Susan Ayala Work Phone: [facility] Work Phone: Start: 10-19-2023 End: 38-88-0300ynqmwiizdoHKWRKUFR A BROWNNot AvailableStart: 10-11-2023 End: 30-86-0352krzqxhgtofGC Susan Ayala Work Phone: [facility] Work Phone: Start: 10-11-2023 End: 89-76-0969Rmayzga encounter procedureMD Susan Ayala Work Phone: [facility] Work Phone: Start: 71-45-0275Susbwfeejp RecurringMD Susan Ayala Work Phone: [facility] Work Phone: Start: 10-03-2023 End: 38-03-4392bufimuimepHI uSsan Ayala Work Phone: [facility] Work Phone: Start: 10-03-2023 End: 85-38-9915Oqtrdmk encounter procedureMD Susan Jamie Work Phone: [facility] Work Phone: Start: 35-88-2813Rds-patient / Non-visitMD Susan Jamie Work Phone: [facility] GroupVeterans [facility] Administration Professional Co Work Phone: Start: 09-21-2023 End: 14-85-9001Njacjbw encounter procedureMD Susan Jamie Work Phone: [facility] Physician [facility] Work Phone: Start: 97-95-4202Egijudpekh Recurring Susan Jamie Work Phone: [facility] [place] [facility] Work Phone: Start: 12-73-6599Eatkkeqkra RecurringMD Susan Ayala Work Phone: [facility] CredibleStart: 08-29-2023 End: 65-58-8371Nickubxxq to same day surgery centerMD Susan Jamie Work Phone: [facility]Sur[facility] [place] [facility] CampusStart: 08-29-2023 End: 11-03-0817bcxqarunhbHR Susan Ayala Work Phone: [facility] Work Phone: Start: 08-11-2023 End: 55-10-5162qvnoohwccrRA Susan Ayala Work Phone: [facility] Work Phone: Start: 08-11-2023 End: 45-32-2825Rkzxfal encounter procedureMD Hale Ayala Work Phone: [facility]Av[facility] Work Phone: Start: 08-01-2023 End: 57-93-2219Ujpzgpqgf to same day surgery centerMD Susan Ayala Work Phone: [facility]Sur[facility] [place] [facility] CampusStart: 08-01-2023 End: 26-22-3059krfmhvkjzmYN Susan Bryant Jamie Work Phone: [facility] Work Phone: Start: 99-95-5943Lcf-patient / Non-visit Susan Jamie Work Phone: [facility] Physician Group-[facility] Fl Work Phone: Start: 07-19-2023 End: 11-60-8161gadjetujcqXA Susan Bryant Jamie Work Phone: [facility] Work Phone: Start: 07-19-2023 End: 02-72-3115Ildufwz encounter procedure Susan Jamie Work Phone: [facility] Raz-Dwl-Ydiwpoyk Testing Work Phone: Start: 07-12-2023 End: 34-15-0011Inyzzqfmi to same day surgery center Susan Jamie Work Phone: [facility]-Ultrasound Cntr for Breast CarStart: 07-11-2023 End: 34-18-1079Iepxnns encounter procedureMD Feltonia Jamie Work Phone: [facility]ician Group-[facility] Work Phone: Start: 28-92-3527Yesadoenpe Recurring Susan Jamie Work Phone: [facility]-BH CredibleStart: 06-29-2023 End: 55-88-5126ucelbfeiaiNFSAEHDP [address] [facility] Hospitaltart: 82-55-6717Mlwdwawdpf Recurring Susan Jamie Work Phone: [facility]-BH CredibleStart: 05-16-2023 End: 27-43-2040Epuvymkvl to same day surgery centerMD Susan Ayala Work Phone: [facility] Work Phone: Start: 05-16-2023 End: 34-29-2534mkogsonmjgWJ Susan Ayala Work Phone: [facility] Work Phone: Start: 05-02-2023 End: 03-82-4957Omwpmyi encounter procedureMD Susan Ayala Work Phone: [facility] Ieq-Uer-Ldpacwek Testing Work Phone: Start: 04-10-2023 End: 52-13-3590pwborulmayLterod Ayala Other [employer] Other Start: 25-96-7791Bwywnvepq encounterMarcia JamieCITY OF HOPE, [place] [facility] ClinicStart: 03-27-2023 End: 68-64-9680yihycvljwoZrmirf Ayala Other [employer] Other Start: 31-65-0696Yzhcafs encounter procedureMarcia JamieCITY OF HOPE, [place] [facility] ClinicStart: 93-14-3688Lpyjmggyl encounterMarcia [facility] ClinicStart: 03-21-2023 End: 07-38-3505fkmlalljljIddnue Ayala Other [employer] Other Start: 79-82-2235Zrisyofjb encounterMarcia BraunG [facility] ClinicStart: 03-10-2023(Televisit) TelevisitMarcia BraunG [facility] ClinicStart: 03-10-2023 End: 53-01-7444dxlhefdelpPtnhnu Ayala Other [employer] Other Start: 03-06-2023 End: 40-40-7535egjtparmwgGwfoqq Ayala Other [employer] Other start: 17-42-0600Igoanqtxz encounterMarcia BraunG [facility] ClinicStart: 02-06-2023 End: 06-97-0194ktykifpvdbHnaeka Ayala Other [employer] Other Start: 07-70-1931Oewcpl outpatient visit 15 minutes Susan [facility] ClinicStart: 72-44-3680Jofgciqla encounterMarcisejal [facility] ClinicStart: 12-28-2022 End: 03-79-7652kuuuppqcgwAkkjws Ayala Other [employer] Other Start: 69-62-0694Fxgrpm outpatient visit 15 minutes Susan [facility] ClinicStart: 09-13-2022 End: 35-05-0806ckgdivdixiEmbukr Ayala Other [employer] Other Start: 75-27-2640Grpnqt outpatient visit 15 minutes Susan [facility] ClinicStart: 08-26-2022 End: 46-34-2634rrsqukmeogYV [facility] [place] .Facility:H2Gogot: 08-01-2022 End: 15-35-8271bayemxlbpmUY [facility] [place] .Facility:E7Rlzws: 07-18-2022 End: 44-45-0167hwmtgzilazNB [facility] [place] .Facility:G0Uyzyw: 07-12-2022 End: 78-55-0460jpcjfqxhbzVwloup Ayala Other [employer] Other Start: 01-33-3619Pocmtzbav encounterMarcia Azam [facility] ClinicStart: 07-06-2022 End: 43-24-1780vgqrtqsivmZndmpw Ayala Other [employer] Other Start: 10-78-5198Oqumhw outpatient visit 15 minutes Susan [facility] ClinicStart: 06-21-2022 End: 34-14-5230mjpikfkqdvKutiry Ayala Other [employer] Other Start: 80-15-5213Xkovgfwvu encounterSusan Nascimento [facility] ClinicStart: 11-47-7987Oyjmga outpatient visit 15 minutesSusan Nascimento [facility] ClinicStart: 06-14-2022 End: 75-17-9872etrbqshcxoTT Susan Ayala Work Phone: [facility] Work Phone: Start: 06-14-2022 End: 08-38-3580Mrvxrraa ReferredMD Susan Ayala Work Phone: [facility]-Lab Main [place] Work Phone: Start: 77-98-3482Qmcgs health examinationSusan Ayala Other [employer] Other Start: 65-77-5671Msnawpjtwcdyl examination normal Susan Ayala Other [employer] Other Start: 04-21-2022 End: 35-27-9250mlmqmcydcvIT SUSAN AYALAFacility:D8Rwwsd: 04-14-2022 End: 53-36-7243xumcetkugjNRWDU SPROUTFacility:L0Jijse: 03-28-2022 End: 69-73-4903birlomwsaoWG SUSAN AYALAFacility:T5Lgdxy: 12-27-2021 End: 59-21-2606xqwysfqduwZMPNF SPROUTFacility:H1 Procedures DateProcedureProcedure DetailPerforming ClinicianStart: 64-75-7471FURYBPPQ FUNCTION TESTSDepk Hunter CCC-A Work Phone: start: 88-56-3432Yepco Strep (POC)Susan Ayala MD Work Phone: Start: 60-88-5575Xifbbesfh colonoscopyMD Susan Ayala Work Phone: Start: 27-83-1006Ptuxurgqmc of left breast Susan Ayala Work Phone: Start: 30-72-4869Cihadyxgvv of left breastMD Susan Ayala Work Phone: Start: 36-39-8695Ilugpbecfzay sentinel lymph node studyMD Susan Ayala Work Phone: Start: 23-24-1684VfgeaqldcxlVjswqgpv Brown DPM Work Phone: Start: 47-47-8283Ppafxllecqf of left breast specimenMD Susan Ayala Work Phone: Start: 21-94-1616Eqodplrat - localizationMD Susan Ayala Work Phone: Start: 21-10-8376Mlwzdjvxntwvylh of left breastMD Susan Ayala Work Phone: Start: 16-11-7627Hzsj needle biopsy of breast using ultrasound guidanceMD Susan Ayala Work Phone: Start: 22-25-8619Qtkewnrccdn of left breastMD Susan Ayala Work Phone: Start: 02-81-4431Hvobzeypasakqck of left breastMD Susan Ayala Work Phone: Start: 63-41-3191Zgacemetdwsfbgg of limbMD Susan Ayala Work Phone: Start: 24-84-8138Cmstunkfvpi observation [Identifier] in Cervix by Cyto stainGilson Portillo DPM Work Phone: End: 03-00-9316Ekiao screeningMariancisejal Ayala Other Plan of Treatment DateCare ActivityDetailAuthorStart: 64-20-9796Asabzwbki for malignant neoplasm of cervixNOMS HealthcareStart: 10-03-2024 End: 89-38-7468Qdzbfmm encounter /29/2025 1:50 PM EDT Office Visit [facility] [address] [facility] [address] [place] [address] Gilson Portillo DPM [address] [facility] [address] [place] [address] Xerosis cutis (Primary Dx); Onychocryptosis; Toe pain, rightNOMS CI PODIATRYComment on above:Xerosis cutis (Primary Dx); Onychocryptosis; Toe pain, rightStart: 09-05-2024 End: 36-39-4875Uxnddxk encounter mtdomlxad34/01/2025 10:40 AM EDT Office Visit [facility] [address] [facility] [address] [place] [address] Gilson Portillo DPM [address] [address] Pain due to onychomycosis of toenails of both feet (Primary Dx); Xerosis cutisNOMS CI PODIATRYComment on above:Pain due to onychomycosis of toenails of both feet (Primary Dx); Xerosis cutisStart: 69-15-5582Ykqxmxmlp for malignant neoplasm of breast MammogramNOMS HealthcareStart: 05-16-2024 End: 53-50-4355Jmawlxo encounter avgqieqqj50/09/2025 1:50 PM EST Procedure Visit [facility] [address] [facility] [address] [place] [address] Gilson Portillo DPM [address] [address] [facility] CI PODIATRYStart: 04-10-2024 End: 26-43-2803Drwabtg encounter yixxxbpjs45/04/2024 1:10 PM EST Office Visit [facility] [address] [facility] [address] [place] [address] Christy Quick MD [address] [facility] [address] [place] [address] ArrivedNOMS CI ENTComment on above:ArrivedStart: 03-07-2024 End: 42-52-1097Ieskwzz encounter procedureNOMS CI PODIATRYComment on above:Pain due to onychomycosis of toenails of both feet (Primary Dx)Start: 01-07-2024 Influenza vaccinationInfluenza Vaccine (#1)[facility] HealthcareStart: 12-28-2023 End: 59-62-5303Ycjeiam encounter ygshksrwm91/22/2024 1:10 PM EDT Procedure Visit [facility] [address] [facility] [address] [place] [address] Gilson Portillo, IDALMIS [address] [facility] [address] [place] [address] Onychomycosis (Primary Dx); Toe pain, bilateralNOMS CI PODIATRYComment on above:Onychomycosis (Primary Dx); Toe pain, bilateralStart: 61-75-4297UdcrxeljiKettering Health Washington Townshiptart: 24-66-6340Ndkxcnk referralSt. Charles Hospital Work Phone: Start: 35-90-9806Bgldyuf [facility] Work Phone: Start: 48-31-1733ZbuklcthvPromedica Defiance Regional Hospital Start: 08-29-2023 End: 77-58-4172CtjekjkyhKettering Health Washington Townshiptart: 34-31-4695EidgnuxksKettering Health Washington Townshiptart: 93-08-8502OfgsaitqbKettering Health Washington Townshiptart: 46-85-3888Zrpvoyejdg of left breastOR Breast Bx, Lumpectomy, Mass Excision (Left)[facility] Townshiptart: 95-27-4565TdlgjwjobKettering Health Washington Townshiptart: 99-74-6894Ymgzwmebm for malignant neoplasm of colonNOMS HealthcareAtopobium vaginae DNA [Presence] in Vaginal fluid by HIMANSHU with probe detectionPromedica Defiance Regional HospitalBacterial vaginosis associated bacterium 2 DNA [Presence] in Vaginal fluid by HIMANSHU with probe detectionPromedica Defiance Regional HospitalBasophils [#/volume] in Blood by Automated count [facility] HospitalBasophils/100 leukocytes in Blood by Automated countPromedica Defiance Regional HospitalComprehensive metabolic 2000 panel - Serum or PlasmaPromedica Defiance Regional HospitalComprehensive metabolic 2000 panel - Serum or PlasmaPromedica Defiance Regional HospitalComprehensive metabolic 2000 panel - Serum or [facility] CenterComprehensive metabolic 2000 panel - Serum or [facility] CenterComprehensive metabolic 2000 panel - Serum or [facility] Medical CenterDXA Skeletal system.axial Views for bone densityPromedica Defiance Regional HospitalDXA Skeletal system.axial Views for bone densityPromedica Defiance Regional Hospital Eosinophils/100 leukocytes in Blood by Automated [facility] CenterErythrocyte distribution width [Ratio] by Automated [facility] CenterErythrocytes [#/volume] in [facility] SystemHematocrit [Volume Fraction] of [facility] SystemHemoglobin [Mass/volume] in [facility] SystemHepatic function panelPromedica Defiance Regional HospitalLeukocytes [#/volume] corrected for nucleated erythrocytes in Blood by Automated counPromedica Defiance Regional HospitalLeukocytes [#/volume] in [facility] SystemLymphocytes [#/volume] in Blood by Automated [facility] Lymphocytes/100 leukocytes in Blood by Automated [facility] CenterMCH [Entitic mass] by Automated [facility] MCHC [Mass/volume] by Automated [facility] CenterMCV [Entitic volume] by Automated [facility] Medical CenterMegasphaera sp type 1 DNA [Presence] in Vaginal fluid by HIMANSHU with probe detectionPromedica Defiance Regional HospitalMG Breast - bilateral ScreeningPromedica Defiance Regional HospitalMG Breast - left DiagnosticPromedica Defiance Regional HospitalMonocytes [#/volume] in Blood by Automated [facility] Monocytes/100 leukocytes in Blood by Automated [facility] CenterNeutrophils [#/volume] in Blood by Automated [facility] CenterNeutrophils/100 leukocytes in Blood by Automated [facility] CenterNucleated erythrocytes [Presence] in Blood by Automated [facility] CenterPatient EducationColon polyps Hemorrhoids (DC) Diverticulosis (DC) Know your [facility] Work Phone: Patient referralDetwiler Memorial [facility] Work Phone: Platelet mean volume [Entitic volume] in Blood by Automated countPromedica Defiance Regional HospitalPlatelets [#/volume] in Blood [facility] Regional HospitalXR Humerus - right ViewsGundersen Lutheran Medical Center Immunizations Immunization DateImmunizationNotesCare IdwztibxDrdcgqun95-40-2784sbogcbguf, injectable, madin kim canine kidney, preservative freeHilary Dayne SEPULVEDA Work Phone: [facility] CenterTzjfkrfbud49-03-1760qdxcjmmvt virus vaccine, unspecified formulationGilson Portillo DPM Work Phone: [facility] CenterXprigsrodh25-96-2216EDXIE-27 mRNA Bivalent Booster (Pfizer)MD Susan Ayala Work Phone: [facility]10-24-2022Influenza, injectable, Madin Kim Canine Kidney, preservative free, quadrivalentHilary Dayne SEPULVEDA Work Phone: [facility] CenterTibhyyjgoh90-34-9553vckonhddm virus vaccine, unspecified formulationGilson Portillo DPM Work Phone: [facility] CenterGjwwlctwsb30-77-1684NFYZK-30 mRNA, Comirnaty (Pfizer)MD Susan Ayala Work Phone: [facility] [facility]COVID-19 mRNA, Comirnaty (Pfizer)MD Susan Ayala Work Phone: [phone] [place], [place] 4425604-02-2021COVID-19 mRNA, Comirnatjoshua (Pfizer)MD Susan Ayala Work Phone: [phone]09-18-2017influenza, injectable, quadrivalent, preservative freeHilary Dayne SEPULVEDA Work Phone: [facility] CenterOkqyofutwl32-62-6110gyullwoss, injectable, quadrivalent, preservative freeHilary Dayne SEPULVEDA Work Phone: [facility] CenterOntrfquwps08-94-6835cpnkslroy, seasonal, injectable, preservative freeChristy Quick MD Work Phone: [facility] CenterBfdwyupdbc02-99-1181difypzfav, seasonal, injectableHilapamela Quick MD Work Phone: [facility] HospitalScqonjyboo02-29-8128pasjmmnfkrqe polysaccharide vaccine, 23 Mamadou Quick MD Work Phone: [facility] Payers DatePayer CategoryPayerPolicy [id number] 2023Self-pay [id number] MEDICARE ADVANTAGE HUMANA MEDICARE [id number] 2019-Present [address] [address] [place] [address] [id number] 2020Medicare (Managed Care) [id number] 2018Medicaid [id number] 2..1.586206.3.57[id number] 2..1.066284.3.57[id number] 2..1.199058.3.57[id number] 2..1.809301.3.57[id number] 2..1.435412.3.57[id number] 2.16.840.1.840067.3.57[id number] 2.16840.1.531737.3.579.[id number] 2.16.840.1.412990.3.57[id number] 2.16840.1.435580.3.579.2.[id number] 2.840.1.799987.3.57[id number] 2.0.1.951983.3.579.2.[id number] 2.0.1.738344.3.57[id number] 2.0.1.822830.3.57[id number] 2.0.1.555772.3.579.2.8279 [id number] 2.840.1.354509.3.57[id number] 2.0.1.870253.3.579.2.1259 [id number] 2..1.0[id number] MCR [id number] 2.16.840.1.574[id number] 2.16.840.1.726372.3.579.2.531 Social History DateTypeDetailFacilityTobacco smoking status NHISUnknown if ever smokedDetwiler Memorial Hospital Ctr Work Phone: Start: 65-38-3025Uuk [facility] Hospitaltart: 12-28-2023 End: 65-65-7123Ivf Assigned At [facility] [employer] Other Start: 05-02-2023 End: 03-09-8677Msqhmuy smoking status NHISEx-smoker (finding)[facility] End: 41-08-6766Milubzl of tobacco useCurrent smokerN[facility]S Healthcare End: 08-80-3569Wnmcnzg of tobacco useCigarette SmokerNOMS HealthcareStart: 12-28-2023 End: 72-44-2967Ccubhjdoj beverage intakeEx-drinker (finding)[facility] Start: 12-28-2023 End: 47-66-3000Cxhnjux of Social functionNOMS HealthcareStart: 64-02-9809Djr assigned at birthNot on fileNOMS HealthcareStart: 03-16-2024 End: 10-49-2895TsxPsokco (finding)[facility] Townshiptart: 70-93-1729Fhcprcv use and exposureSmokeless tobacco non-userNOMS Healthcare Medical Equipment Procedure CodeEquipment CodeEquipment Original TextEquipment IdentifierDates Biopsy, breast, with lumpectomyImaging lesion localization marker, implantable [id number] FDAStart: 08-01-2023 Goals DatePatient GoalDesired Activity/State Clinical Notes 06-14-2022 to 02-12-2025 Note Date & NmioBgwqLoyeaach31-19-[address] [facility] [place] [address] Cancer Center Note Signed Patient: Melony Manley MR#: [id number] : 1965 Acct:[id number] Age/Sex: 60 / F Type: REG AMB Date of Service: 02/12/25 Copies to: Susan Ayala MD~ Assessment & Plan A/P (1) Invasive ductal carcinoma of left breast: (2) Osteopenia: (3) Breast pain, left: Plan Melony is a 58-year-old nice lady with a stage IIa, pT1b, pN1, MX left breast centrally located invasive ductal carcinoma with 1+ out of 4 lymph node for invasive cancer. ER/SC reported from the 03/20/2023 core biopsy to be ER 100% positive, PER 60% positive and HER2 manolo 2+ by IHC, negative by FISH, Ki 67 low 5%. Surgical pathology report is not dictating the status of the ER, SC and HER2/manolo. Initial consult for medical oncology on 09/21/2023: We went over her new diagnosis of new left breast invasive ductal carcinoma, stage IIa, and we went over and discussed possible options of treatmentbased on the ER, SC and HER2/manolo status considering that she has [...] She had DEXA scan in 07/2022 at [facility]. It revealed osteopenia with Tscore -0.6 Since [...] recurrence, which she would like done at [place]. We will call with results. Otherwise she [...] endocrine therapy currently. Her outside labs at [facility] on 08/02/2024 revealed hemoglobin 13.0 withnormal WBC [...] therefore herthrombocytopenia is most likely related to [place] and Seroquel but will monitor her CBC, [...] is reported in the surgeon note as ER/SC positive and HER2/manolo pending however there are [...] not report any status of the ER, SC and HER2/manolo, however Dr. García note to dictate that patient was ER/SC positive and HER2/manolo was pending. Left breast [...] nipple 08/01/23 Lumpectomy path: Pathological Diagnosis A. Adams node, left axilla, biopsy: Metastatic carcinoma to [...] Examined (sentinel and non-sentinel): 4 Number of Adams Nodes Examined: 4 pTNM CLASSIFICATION (AJCC 8th [...] it was ER positive on the percent, SC +60%, low Ki-67 of only 5%, HER2 [...] She had DEXA scan in 07/2022 at [facility]. It revealed osteopenia with Tscore -0.6 12/21/23: [...] endocrine therapy currently. Her outside labs at [facility] on 08/02/2024 revealed hemoglobin 13.0 withnormal WBC [...] No concerns voiced at time of intake. [facility] Medical History Medical History Diabetes Osteopenia Invasive ductal carcinoma of left breast Left breast cancer with T3 tumor, >5 cm in greatest dimension Ingrown right greater toenail removed Ingrown left greater toenail removed Fibrocystic breast determined by biopsy Vaginal atrophy [place] use Elevated fasting glucose Former smoker Depression [...] % 02/11/25, MCV, (81.0-99.0) 88.7 fL 02/11/25, RDW, (11.0-15.0) 14.5 % 02/11/25, Plt Count, (150-450) 106 10 3/uL L 02/11/25, Sodium, (136-145) 145 mmol/L 02/11/25, Potassium, (3.5-5.1) 3.8 mmol/L 02/11/25, BUN, (7.0-18.0) 10.0 mg/dL 02/11/25, Creatinine, (0.55-1.02) 0.79 mg/dL 02/11/25, Glucose, (74-106) 136 mg/dL H 02/11/25, Calcium, (8.5-10.1) 9.5 mg/dL 02/11/25, Total Bilirubin, (0.2-1.0) 0.3 mg/dL 02/11/25, AST, (15-37) 27 U/L 02/11/25, : ALT, (14-59) 32 U/L 02/11/25, : Alkaline Phosphatase, (46-116) 88 U/L 02/11/25, Total Protein, (6.4-8.2) 7.7 g/dL 02/11/25, Albumin, (3.4-5.0) 3.8 g/dL 02/11/25, Social Determinants [...] Christine Velazquez MD DD/ 1022 Signed By: 02/12/25 1049 [facility]09-29-2025 Evaluation note* Diagnosis Onset Date Resolution Status Admit Date Bipolar disorder, unspecified acuteSeptember 2024 9:49amChronic kidney disease, stage 3 unspecifiedacute February 03, 2025 9:49amHyperlipidemiaacuteSeptember 2024 9:49am HypothyroidismacuteSept2024 9:49amInvasive ductal carcinoma of left breastacuteSept2024 9:49amType 2 diabetes mellitus with hyperglycemiaacuteSept2024 9:49amBreast pain, leftacuteOctober 2024 10:19amInvasive ductal carcinoma of left breastacuteOctober 2024 10:19amOsteopeniaacuteOctober 2024 10:19am [facility] Work Phone: 1([phone]) 686-929405-29-2025 History of Present illness Narrative* Gilson Portillo, DPM - 10/03/2024 1:50 PM EDT Patient: Melony Manley : 1965 PCP: Susan Ayala MD SUBJECTIVE This is a 59 y.o. female that presents today 28 d s/p permanent nail avulsion with nail avulsion tothe right hallux Pt states that they have been following all post op instructions and have been taking antibiotic asprescribed. Pt denies n/f/v/c and has negative pain at post op site. Pt states negative drainage from the postop site. Pt presents today for postoperative follow up. Patient also presents today for follow-up of dry skin and fissures to feet and has been using prescribed or recommended xlnd-gdc-hbocqoy cream with improvement. Patient presents today with [...] Date Bipolar 1 disorder (CMS/HCC) Breast [facility]) 03/2023 Left Breast IDC ER/SC+ Her 2 pend Ear problems HL (hearing [...] and thickness digits 1 through 8 Gilson Portillo DPM documented in this encounterRusk Rehabilitation CenterRmkbklgyyb05-15-2608 History of Present illness Narrative* Gilson Portillo DPM - 09/05/2024 10:40 AM EDT Patient: Melony Manley : 1965 PCP: [...] Breast cancer (CMS/HCC) 03/2023 Left Breast IDC ER/SC+ Her 2 pend Ear problems HL (hearing [...] or drainage to feet. Patient to consider viqn-rdm-vmlglbo treatments for medication or use of urea [...] and the offending nail border removed and 3phenol applications of 30 seconds a peice to nail matrix. Alcohol flush applied and tournicut released with prompt hyperemic response. Patient was given a prescription for an antibiotic Gilson Portillo DPM documented in this encounterRusk Rehabilitation CenterGohyqhqraz04-30-7747 [facility] [place] [address] Cancer Center Note Signed Patient: Melony Manley MR#: [id number] : 1965 Acct:[id number] Age/Sex: 59 / F Type: REG AMB [...] of 4 lymph node for invasive cancer. ER/SC reported from the 03/20/2023 core biopsy to be ER 100% positive, PER 60% positive and HER2 manolo 2+ by IHC, negative by FISH, Ki 67 low 5%. Surgical pathology report is not dictating the status of the ER, SC and HER2/manolo. Initial consult for medical oncology on 09/21/2023: We went over her new diagnosis of new left breast invasive ductal carcinoma, stage IIa, and we went over and discussed possible options of treatmentbased on the ER, SC and HER2/manolo status considering that she has [...] She had DEXA scan in 07/2022 at [facility]. It revealed osteopenia with Tscore -0.6 Since [...] recurrence, which she would like done at [place]. We will call with results. Otherwise she [...] bone density scan was in 07/2022 at [facility],next one will be 07/2024. She will need screening mammogram as well every March. For her mild chronic thrombocytopenia, it may be related to [place] and Seroquelbut will monitor her CBC, CMP, [...] is reported in the surgeon note as ER/SC positive and HER2/manolo pending however there are [...] not report any status of the ER, SC and HER2/manolo, however Dr. García note to dictate that patient was ER/SC positive and HER2/manolo was pending. Left breast [...] nipple 08/01/23 Lumpectomy path: Pathological Diagnosis A. Adams node, left axilla, biopsy: Metastatic carcinoma to [...] Examined (sentinel and non-sentinel): 4 Number of Adams Nodes Examined: 4 pTNM CLASSIFICATION (AJCC 8th [...] it was ER positive on the percent, SC +60%, low Ki-67 of only 5%, HER2 [...] She had DEXA scan in 07/2022 at [facility]. It revealed osteopenia with Tscore -0.6 12/21/23: [...] labs for review. Taking Letrzole. [facility] Medical History Medical History Diabetes Osteopenia Invasive ductal carcinoma of left breast Left breast cancer with T3 tumor, >5 cm in greatest dimension Ingrown right greater toenail removed Ingrown left greater toenail removed Fibrocystic breast determined by biopsy Vaginal atrophy [place] use Elevated fasting glucose Former smoker Depression [...] 05/15/24 11:05/15/24 RDW 14.6 % (11.0-15.0) 05/15/24 11:00 05/15/24 Plt Count 146 10 3/uL (150-450) L 05/15/24 11:00 05/15/24 Sodium 145 mmol/L (136-145) 05/15/24 11:00 05/15/24 Potassium 4.3 mmol/L (3.5-5.1) 05/15/24 11:00 05/15/24 BUN 12.0 mg/dL (7.0-18.0) 05/15/24 11:05/15/24 Creatinine 1.06 mg/dL (0.55-1.02) H 05/15/24 11: 5 Glucose 174 mg/dL (74-106) H 05/15/24 11:00 05/15/24 Calcium 10.3 mg/dL (8.5-10.1) H 05/15/24 11:00 05/15/24 Total Bilirubin 0.5 mg/dL (0.2-1.0) 05/15/24 11:00 05/15/24 AST 27 U/L (15-37) 05/15/24 11:00 05/15/24 ALT 38 U/L (14-59) 05/15/24 11:05/15/24 Alkaline Phosphatase 105 U/L (46-116) 05/15/24 11:00 05/15/24 Total Protein 7.4 g/dL (6.4-8.2) 05/15/24 11:00 05/15/24 Albumin 4.0 g/dL (3.4-5.0) 05/15/24 11:00 05/15/24 Lactate Dehydrogenase 154 U/L (81-234) 05/15/24 11:00 05/15/24 Dictated By: Christine Velazquez MD DD/ 1143 Signed By: 05/23/24 1213 [facility]01-10-2025 Evaluation note* Diagnosis Onset Date Resolution Status Admit Date Sinusitis, acute maxillary acuteJanuary 2024 11:14amBreast pain, leftacuteJanuary 2024 11:41am Invasive ductal carcinoma of left breastacuteJanuary 2024 11:41am OsteopeniaacuteJanuary 2024 11:41amInvasive ductal carcinoma of left breastacuteJanuary 2024 1:23pmType 2 diabetes mellitus with hyperglycemia acuteJanuary 2024 1:23pmWellness examinationacuteJanuary 2024 1:23pm Bacterial conjunctivitis of right eyeacuteFebruary 2024 8:41am [facility] Work Phone: 1(957) 269-843401-10-2025 Evaluation note* Diagnosis Onset Date Resolution Status Admit Date Sinusitis, acute maxillary acuteJanuary 2024 11:14amBreast pain, leftacuteJanuary 2024 11:41am Invasive ductal carcinoma of left breastacuteJanuary 2024 11:41am OsteopeniaacuteJanuary 2024 11:41amInvasive ductal carcinoma of left breastacuteJanuary 2024 1:23pmType 2 diabetes mellitus with hyperglycemia acuteJanuary 2024 1:23pmWellness examinationacuteJanuary 2024 1:23pm Bacterial conjunctivitis of right eyeacuteFebruary 2024 8:41amURI (upper respiratory infection)acuteMarch 2024 1:13pmBreast pain, leftacuteApril 2024 11:21amInvasive ductal carcinoma of left breastacuteApril 2024 11:21amOsteopeniaacuteApril 2024 11:21am [facility] Work Phone: 1(149) 791-390101-07-2025 Telephone encounter Note* Telephone Encounter - Christy Quick MD - 05/14/2024 4:18 PM EST Send discharge note [facility] Afedtiasjz54-16-4212 Miscellaneous Notes* Telephone Encounter - Christy Quick [...] 's appt, and MRI. documented in this encounterRusk Rehabilitation CenterGkycvfdupj67-17-9466 Telephone encounter Note* Telephone Encounter - Nazia Quick - 05/14/2024 1:24 PM EST Called pt/explained about the importance of having the MRI and appt with Dr Quick, pt said she does not want to have it done or schedule any appts. [facility] Vomyezvcmu11-17-0110 Telephone encounter Note* Telephone Encounter - Christy Quick MD - 05/14/2024 11:25 AM EST Advise patient she should still get the MRI because steroids can decrease swelling in a tumor that restores hearing, so having a tumor is not excluded by the hearing retuirning [facility] Maxcjxaqat42-38-5977 Telephone encounter Note* Telephone Encounter - Nazia Quick - 05/14/2024 11:18 AM EST Pt called in to cancel her appts due to her hearing coming back. Pt was scheduled with audio, 's appt, and MRI. [facility] [id number] History of Present illness Narrative* Christy Quick [...] disease Father Cancer Maternal Grandmother Cecile Mckenna Ison Diabetes Maternal Grandmother Cecile MenaBeatriz Flores Colon [...] 04/08/2024 Type 2 diabetes mellitus with hyperglycemia ([facility]) 04/08/2024 Resolved Ambulatory Problems Diagnosis Date Noted No Resolved Ambulatory Problems Past Medical History: Diagnosis Date Bipolar 1 disorder ([facility]) [facility] [place] 03/2023 Ear problems HL (hearing loss) Hypothyroid ([facility]) Schizophrenia ([facility]) Past Surgical History: Procedure Laterality Date BREAST [...] Pain - numeric: 8/10 documented in this encounterRusk Rehabilitation CenterXplklpykut76-02-2828 History of Present illness Narrative* ANDREW Rubio [...] 50 dBHL = 100% documented in this [facility]11-09-2024 Evaluation note* Diagnosis Onset Date Resolution Status Admit Date Right acute otitis media acuteNovember 2023 9:09amGeneralized body achesnoneactiveNovember 2023 9:09amSore throatnoneactiveNovember 2023 9:09amBreast pain, leftacute March 22, 2024 10:25amInvasive ductal carcinoma of left breastacuteNovember 2023 10:25amOsteopeniaacuteNovember 2023 10:25amRight acute otitis mediaacuteNovember 2023 2:36pmSinusitis, acute maxillaryacuteJanuary 2024 11:14amBreast pain, leftacuteJanuary 2024 11:41amInvasive ductal carcinoma of left breastacuteJanuary 2024 11:41amOsteopeniaacuteJanuary 2024 11:41am [facility] Work Phone: 1(568) 774-659411-09-2024 Evaluation note* Diagnosis Onset Date Resolution Status Admit Date Right acute otitis media acuteNovember 2023 9:09amGeneralized body achesnoneactiveNovember 2023 9:09amSore throatnoneactiveNovember 2023 9:09amBreast pain, leftacute March 22, 2024 10:25amInvasive ductal carcinoma of left breastacuteNovember 2023 10:25amOsteopeniaacuteNovember 2023 10:25amRight acute otitis mediaacuteNovember 2023 2:36pmSinusitis, acute maxillaryacuteJanuary 2024 11:14amBreast pain, leftacuteJanuary 2024 11:41amInvasive ductal carcinoma of left breastacuteJanuary 2024 11:41amOsteopeniaacuteJanuary 2024 11:41amType 2 diabetes mellitus with hyperglycemiaacuteJanuary 2024 1:23pmWellness examinationacuteJanuary 2024 1:23pm [facility] Work Phone: 1(367) 637-700211-09-2024 Evaluation note* Diagnosis Onset Date Resolution Status Admit Date Right acute otitis media acuteNovember 2023 9:09amGeneralized body achesnoneactiveNovember 2023 9:09amSore throatnoneactiveNovember 2023 9:09amBreast pain, leftacute November 2023 10:25amInvasive ductal carcinoma of left breastacuteNovember 2023 10:25amOsteopeniaacuteNovember 2023 10:25amRight acute otitis mediaacuteNovember 2023 2:36pmSinusitis, acute maxillaryacuteJanuary 2024 11:14amBreast pain, leftacuteJanuary 2024 11:41amInvasive ductal carcinoma of left breastacuteJanuary 2024 11:41amOsteopeniaacuteJanuary 2024 11:41amInvasive ductal carcinoma of left breastacuteJanuary 2024 1:23pmType 2 diabetes mellitus with hyperglycemiaacuteJanuary 2024 1:23pmWellness examinationacuteJanuary 2024 1:23pmBacterial conjunctivitis of right eyeacuteFebruary 2024 8:41am [facility] Work Phone: 1(524) 487-139110-31-2024 History of Present illness Narrative* Gilson Portillo DPM - 03/07/2024 1:30 PM EDT Patient: [...] Breast cancer (CMS/HCC) 03/2023 Left Breast IDC ER/SC+ Her 2 pend Hyperlipidemia (CMS/HCC) Hypothyroid (CMS/HCC) [...] condition and treatment of condition. Continue with ufyc-jdc-nzphbbn creams to feet p.r.n. Gilson Portillo DPM documented in this encounterRusk Rehabilitation CenterSqzqfvaonw23-68-7248 Evaluation note* Diagnosis Onset Date Resolution Status Admit Date Right arm pain acuteOctober 2023 10:22amType 2 diabetes mellitus with hyperglycemiaacute February 20, 2024 10:22amRight acute otitis mediaacuteNovember 2023 9:09am Generalized body achesnoneactiveNovember 2023 9:09amSore throatnoneactive November 2023 9:09amBreast pain, leftacuteNovember 2023 10:25am Invasive ductal carcinoma of left breastacuteNovember 2023 10:25am OsteopeniaacuteNovember 2023 10:25amRight acute otitis mediaacuteNovember 2023 2:36pm [facility] Work Phone: 1(726) 795-982008-28-2024 Evaluation note* Diagnosis Onset Date Resolution Status Admit Date Invasive ductal carcinoma of left breast acuteAugust 2023 1:43pmInvasive ductal carcinoma of left breastacute February 15, 2024 12:46pmOsteopeniaacuteOctober 2023 12:46pmRight arm painacuteOctober 2023 10:22amType 2 diabetes mellitus with hyperglycemia acuteOctober 2023 10:22amRight acute otitis mediaacuteNovember 2023 9:09amGeneralized body achesnoneactiveNovember 2023 9:09amSore throat noneactiveNov2023 9:09am [facility] Work Phone: 1(934) 761-409408-28-2024 Evaluation note* Diagnosis Onset Date Resolution Status Admit Date Invasive ductal carcinoma of left breast acuteAugust 2023 1:43pmInvasive ductal carcinoma of left breastacute February 15, 2024 12:46pmOsteopeniaacuteOctober 2023 12:46pmRight arm painacuteOctober 2023 10:22amType 2 diabetes mellitus with hyperglycemia acuteOctober 2023 10:22amRight acute otitis mediaacuteNovember 2023 9:09amGeneralized body achesnoneactiveNovember 2023 9:09amSore throat noneactiveNovember 2023 9:09amInvasive ductal carcinoma of left breastacute March 22, 2024 10:25amOsteopeniaacuteNovember 2023 10:25am [facility] Work Phone: 1(457) 657-861008-28-2024 Evaluation note* Diagnosis Onset Date Resolution Status Admit Date Invasive ductal carcinoma of left breast acuteAugust 2023 1:43pmInvasive ductal carcinoma of left breastacute February 15, 2024 12:46pmOsteopeniaacuteOctober 2023 12:46pmRight arm painacuteOctober 2023 10:22amType 2 diabetes mellitus with hyperglycemia acuteOctober 2023 10:22amRight acute otitis mediaacuteNovember 2023 9:09amGeneralized body achesnoneactiveNovember 2023 9:09amSore throat noneactiveNovember 2023 9:09amBreast pain, leftacuteNovember 2023 10:25amInvasive ductal carcinoma of left breastacuteNovember 2023 10:25am OsteopeniaacuteNovember 2023 10:25am [facility] Work Phone: 1(120) 679-552808-22-2024 History of Present illness Narrative* Gilson Portillo DPM - 12/28/2023 1:10 PM EDT Patient: [...] Medical History: Diagnosis Date Bipolar 1 disorder ([facility]) Breast cancer ([facility]) 03/2023 Left Breast IDC ER/SC+ Her 2 pend Hyperlipidemia ([facility]) Hypothyroid ([facility]) Schizophrenia ([facility]) Medications: Current Outpatient Medications: alendronate (Fosamax) 70 [...] condition and treatment of condition. Continue with lzzc-qyr-ozpqcvz creams to feet p.r.n. Gilson Portillo DPM documented in this encounterRusk Rehabilitation CenterNzbcssjhzb99-70-8935 Chief complaint+Reason for visit Narrative* Chief Complaint referral to gastro Follow Up New Patient, Left Breast Cancer breast cancer breast cancer Left breast cancer Left breast cancer Left breast cancer Screening Screening Amb Documentation BH Left breast cancer f/u moved up from 01/02 per 12/13 triageReason for VisitScreening for colon cancer Type 2 diabetes mellitus with hyperglycemia Invasive ductal carcinoma of left breast Osteopenia Invasive ductal carcinoma of left breast Invasive ductal carcinoma of left breast Osteopenia [facility] Work Phone: 1(141) 525-496707-30-2024 Procedure notePromedica Defiance [facility]11-20-2023 Evaluation note* Encounter Date Diagnosis Assessment Notes Treatment Notes Treatment Clinical Notes Mar, Invasive ductal carcinoma of lef t breast (ICD-10 - C50.912) Reviewed results. Grade 1. D/w daughter on speaker - phone. Appt made w Dr. García on 04/05 at 2pm. Path report and mamm reports sent to their office. [employer] Other 11-14-2023 Evaluation note* Encounter Date Diagnosis Assessment Notes Treatment Notes Treatment Clinical Notes Mar, Elevated triglycerides with high cholesterol (ICD-10 - E78.2) [employer] Other 11-03-2023 Evaluation note* Encounter Date Diagnosis [...] verbalized understanding and agreement with treatment plan. [employer] Other 10-02-2023 Evaluation note* Encounter Date Diagnosis Assessment Notes Treatment Notes Treatment Clinical Notes Feb, Abnormal mammogram of left breas t (ICD-10 - R92.8) [employer] Other 10-02-2023 Evaluation note* Encounter Date Diagnosis Assessment Notes Treatment Notes Treatment Clinical Notes Feb, Elevated triglycerides with high cholesterol (ICD-10 - E78.2) Called pharmacy. They do not carry the med she is interested in the [place]. Changed rx [facility] [employer] Other 08-23-2023 Evaluation note* Encounter Date Diagnosis Assessment Notes Treatment Notes Treatment Clinical Notes Dec, Elevated fasting glucose (ICD-10 - R73.01) Pt states Dr. Blanca is helping her wean the zyprexa. Will recheck labs listed below and return forOV in Apr. Dec,Hypothyroidism (ICD-10 - E03.9)Labs reviewed and normal. Continue present medication [employer] Other 05-09-2023 Evaluation note* Encounter Date Diagnosis Assessment Notes Treatment Notes Treatment Clinical Notes September, Skin candidiasis (ICD-10 - B37.2 ) Very mild erythema and discoloration. Recommend OTC Gold Valadez Powder. Call if not improving. [employer] Other 03-01-2023 Evaluation note* Encounter Date Diagnosis Assessment Notes Treatment Notes Treatment Clinical Notes Jul, Hypothyroidism (ICD-10 - E03.9) stable - chronic - continue present dose. Jul,Vaginal atrophy (ICD-10 - N95.2)Melony denies any further pain, vaginal bleeding or discomfort. Will call later today for her wellwoman exam with Dr. Stafford. Verbally consented to share records w him from our last office visit. [employer] Other 02-07-2023 Evaluation note* Encounter Date Diagnosis Assessment Notes Treatment Notes Treatment Clinical Notes Jun, Acute vaginitis (ICD-10 - N76.0) New problem - sent culture for yeast/BV/trich. will call in 1-2 days when results are back. [employer] Other Chief complaint+Reason for visit Narrative* Chief Complaint NEW breast cancer referral to gastro Follow Up New Patient, Left Breast Cancer BH breast cancer breast cancer Left breast cancer Left breast cancer Left breast cancer Left breast cancer Screening ScreeningReason for VisitInvasive ductal carcinoma of left breast Osteopenia Screening for colon cancer Type 2 diabetes mellitus with hyperglycemia Invasive ductal carcinoma of left breast Osteopenia Invasive ductal carcinoma of left breast [facility] Work Phone: Evaluation noteNo assessment information available [facility] Work Phone: Evaluation noteNo InformationNort [employer] Other Evaluation note* Diagnosis Onset Date Resolution Status Hematoma of breast following procedure acute [facility] Work Phone: Evaluation note* Diagnosis Onset Date Resolution Status Hematoma of breast following procedure acuteAllergic rhinitisacuteGERD (gastroesophageal reflux disease)acute Hyperlipidemiaacute [facility] Work Phone: Evaluation note* Diagnosis Onset Date Resolution Status Hematoma of breast following procedure acuteAllergic rhinitisacuteGERD (gastroesophageal reflux disease)acute HyperlipidemiaacuteInvasive ductal carcinoma of left breastacuteOsteopeniaacute [facility] Work Phone: Evaluation note* Diagnosis Onset Date Resolution Status Allergic rhinitis acuteGERD (gastroesophageal reflux disease)acuteHyperlipidemiaacuteInvasive ductal carcinoma of left breastacuteOsteopeniaacuteScreening for colon cancer acuteType 2 diabetes mellitus with hyperglycemiaacuteInvasive ductal carcinoma of left breastacuteOsteopeniaacute [facility] Work Phone: Evaluation note* Diagnosis Onset Date Resolution Status Invasive ductal carcinoma of left breast acuteOsteopeniaacuteScreening for colon canceracuteType 2 diabetes mellitus with hyperglycemiaacuteInvasive ductal carcinoma of left breastacuteOsteopeniaacute Invasive ductal carcinoma of left breastacute [facility] Work Phone: Evaluation note* Diagnosis Onset Date Resolution Status Screening for colon cancer acuteType 2 diabetes mellitus with hyperglycemiaacuteInvasive ductal carcinoma of left breastacuteOsteopeniaacuteInvasive ductal carcinoma of left breastacute Invasive ductal carcinoma of left breastacuteOsteopeniaacute [facility] Work Phone: Evaluation note* Diagnosis Onset Date Resolution Status Invasive ductal carcinoma of left breast acuteOsteopeniaacuteInvasive ductal carcinoma of left breastacuteInvasive ductal carcinoma of left breastacuteOsteopeniaacuteInvasive ductal carcinoma of left breastacute [facility] Work Phone: Evaluation note* Diagnosis Onset Date Resolution Status Invasive ductal carcinoma of left breast acuteOsteopeniaacuteInvasive ductal carcinoma of left breastacuteInvasive ductal carcinoma of left breastacuteOsteopeniaacute [facility] Work Phone: Evaluation note* Diagnosis Onset Date Resolution Status Invasive ductal carcinoma of left breast acuteOsteopeniaacuteInvasive ductal carcinoma of left breastacuteInvasive ductal carcinoma of left breastacuteOsteopeniaacuteRight arm painacute [facility] Work Phone: Evaluation note* Diagnosis Pain [...] tissues of limb documented in this encounter [facility] HealthcareEvaluation note* Diagnosis Xerosis cutis- Primary Other specified disease of sebaceous glands Onychocryptosis Ingrowing nail Toe pain, right Pain in soft tissues of limb Pain due to onychomycosis of toenails of both feet documented in this encounter [facility] HealthcareEvaluation note* Diagnosis Onset Date Resolution Status Admit Date Chronic kidney disease, stage 3 unspecif ied acuteSeptember 2024 9:49amHyperlipidemiaacuteSeptember 2024 9:49am HypothyroidismacuteSeptember 2024 9:49amType 2 diabetes mellitus with hyperglycemiaacuteSept2024 9:49am [facility] Work Phone: History and physical note Author Lisa Rubalcava [facility] December 05, 2023 7:53amNote Date/TimeJuly 2023 7:54[place] [address] Gastroenterology H&P Signed Patient: Melony Manley MR#: [id number] : 1965 Acct:[id number] Age/Sex: 58 / F Adm Date: 4 Loc: Room: Type: [facility] Attending Dr: Lisa Rubalcava DO Copies to: DO Susan Caba MD~ Date of Service: 12/05/2023 HISTORY & PHYSICAL: Patient's history with special attention to the cardiovascular, pulmonary systems and the current problem was reviewed with the patient immediately prior to the procedure. Present medications and doses reviewed in the EMR. Allergies and pertinent laboratory tests were also re viewedat this time in the EMR. The physical [...] signed by Lisa Rubalcava DO> 12/05/23 0753 [facility] Work Phone: History general Narrative - Reported* Type Description Date Medical History Gastroesophageal ref lux disease, esophagitis presence not specified Medical HistoryBipolar 1 disorder, depressedMedical HistoryAcquired hypothyroidismMedical HistoryHypercholesterolemiaMedical HistoryBMI 28.0-28.9,adultMedical HistoryHypothyroidismMedical HistoryChronic kidney disease, stage 3 unspecifiedMedical HistoryElevated fasting glucoseMedical HistoryPain of right upper armMedical HistoryLithium useMedical HistoryVaginal atrophySurgical Historytubal [id number] Historywisdom teethSurgical HistoryCATARACT EXTRACTION- LEFT01/2017Surgical HistoryDETACHED RETINE REPAIR (LEFT)urgical HistoryCATARACT EXTRACTION- RIGHT02/2017Hospitalization HistorySEE SURGICAL [facility] [employer] Other Hospital Discharge instructions Additional Instructions DISCHARGE [...] directed for pain unless a prescription was provided.[facility] Work Phone: Hospital Discharge instructions [...] directed for pain unless a prescription was provided.[facility] Work Phone: Progress note Author Christine Velazquez [facility] December 21, 2023 10:26amNote Date/TimeAugust 2023 9:55[facility] [place] [address] Cancer Center Note Signed Patient: Melony Manley MR#: [id number] : 1965 Acct:[id number] Age/Sex: 58 / F Type: REG AMB Date of Service: 12/21/23 Copies to: Susan Ayala MD~ Assessment & Plan A/P (1) Invasive ductal carcinoma of left breast: (2) Osteopenia: Plan Melony is a 58-year-old nice lady with a stage IIa, pT1b, PN 1, MX left breast centrally located invasive ductal carcinoma with 1+ out of 4 lymph node for invasive cancer. ER/SC reported from the 03/20/2023 core biopsy to be ER 100% positive, PER 60% positive and HER2 manolo 2+ by IHC, negative by FISH, Ki 67 low 5%. Surgical pathology report is not dictating the status of the ER, SC and HER2/manolo. Initial consult for medical oncology on 09/21/2023: We went over her new diagnosis of new left breast invasive ductal carcinoma, stage IIa, and we went over and discussed possible options of treatmentbased on the ER, SC and HER2/manolo status considering that she has [...] She had DEXA scan in 07/2022 at [facility]. It revealed osteopenia with Tscore -0.6 Since [...] to get a Pap smear through her manufacturer's service representative once a year and also informed to [...] bone density scan was in 07/2022 at [facility],next one will be 07/2024. She will need screening mammogram as well every july. For her mild chronic thrombocytopenia, it may be related to [place] and Seroquelbut will check [employer], B12 and folate next time as well. [...] is reported in the surgeon note as ER/SC positive and HER2/manolo pending however there are [...] not report any status of the ER, SC and HER2/manolo, however Dr. García note to dictate that patient was ER/SC positive and HER2/manolo was pending. Left breast [...] nipple 08/01/23 Lumpectomy path: Pathological Diagnosis A. Adams node, left axilla, biopsy: Metastatic carcinoma to [...] Examined (sentinel and non-sentinel): 4 Number of Adams Nodes Examined: 4 pTNM CLASSIFICATION (AJCC 8th [...] it was ER positive on the percent, SC +60%, low Ki-67 of only 5%, HER2 [...] She had DEXA scan in 07/2022 at [facility]. It revealed osteopenia with Tscore -0.6 12/21/23: [...] HER2/manolo and actual path report for the ER/SC status, possibly need Oncotype Dx testing to determine if she needs adjuvant chemotherapy. She will need adjuvant radiation. She will need adjuvant endocrine therapy if she is ER/SC positive. Intake Vitals/Pain Assessment 12/21/23 09:56 Height [...] for the last 6 days. [facility] Medical History Medical History Diabetes Osteopenia Invasive ductal carcinoma of left breast Left breast cancer with T3 tumor, >5 cm in greatest dimension Ingrown right greater toenail removed Ingrown left greater toenail removed Fibrocystic breast determined by biopsy Vaginal atrophy [place] use Elevated fasting glucose Former smoker Depression [...] cigarettes Smoking quit date/years:<= 15 years ago Within the past year, [...] signed by Christine Velazquez MD> 12/21/[address] [facility] Work Phone: Progress note Author Gaurav Jaime [facility] January 03, 2024 2:37pmNote Date/TimeAugust 2023 1:58pm[facility] [place] [address] Cancer Center Note Signed Patient: Melony Manley MR#: [id number] : 1965 Acct:[id number] Age/Sex: 58 / F Type: REG AMB Date of Service: 01/03/24 Copies to: Susan Ayala MD~ Assessment & Plan (1) Invasive ductal carcinoma of left breast: Plan: Return to clinic as needed Assessment: 58-year-old female with [id number] invasive ductal carcinoma of the left breast, grade 2, ER/SC positive HER2 negative. Patient has undergone lumpectomy [...] will discharge her in their care. We willsee her back if there is need for [...] carcinoma, provisional grade 1, with DCIS. Strongly ER/SC positive HER2 was equivocal 2+ There is a report from April 2023 stating HER2 negative from Patient was plan for radioactive seed localization however at the time of presentation on May 16seed placement was postponed ultrasound-guided biopsy of the [...] hyperintense ovoid cavity in the anterior lateral leftbreast corresponding to biopsy clip site. No abnormal enhancement. There is a 7 mm mass present 6:00 location 7.3 cm from the nipple there is no enlarged or suspicious appearing axillary lymph nodes.No enhancement identified at the biopsy site or any suspicious findings in the right breast 08/01/23 Lumpectomy and sentinel lymph node biopsy. Final path showed an 8 mm invasive ductal carcinoma with DCIS. There was no LVSI. There was invasive carcinoma present at the margin posterior. Focal. All margins are negative forDCIS. Closest margin was less than 1 mm posteriorly. Adams lymph node biopsy showed macrometastasis and 1 of 4 lymph nodes size of the largest manjit metastatic deposit was 4 mm. There was extranodal extension present 2 mm or less. [id number] 08/29/2023 return to OR for reexcision, no [...] - Last Reconciled 01/03/24 by Shanti Mesa, RN alendronate 70 mg PO QWEEK ascorbic [...] Measures Taken: Patient in chair [facility] Medical History Medical History Diabetes Osteopenia Invasive ductal carcinoma of left breast Left breast cancer with T3 tumor, >5 cm in greatest dimension Ingrown right greater toenail removed Ingrown left greater toenail removed Fibrocystic breast determined by biopsy Vaginal atrophy [place] use Elevated fasting glucose Former smoker Depression [...] cigarettes Smoking quit date/years:<= 15 years ago Within the past year, [...] <Electronically signed by Gaurav Jaime MD> 01/03/[address] [facility] Work Phone: Progress note Author Christine Velazquez [facility] HospitalNote Date/TimeJanuary 2024 12:13pm [facility] [place] [address] Cancer Center Note Signed Patient: Melony Manley MR#: [id number] : 1965 Acct:[id number] Age/Sex: 59 / F Type: REG AMB [...] of 4 lymph node for invasive cancer. ER/SC reported from the 03/20/2023 core biopsy to be ER 100% positive, PER 60% positive and HER2 manolo 2+ by IHC, negative by FISH, Ki 67 low 5%. Surgical pathology report is not dictating the status of the ER, SC and HER2/manolo. Initial consult for medical oncology on 09/21/2023: We went over her new diagnosis of new left breast invasive ductal carcinoma, stage IIa, and we went over and discussed possible options of treatmentbased on the ER, SC and HER2/manolo status considering that she has [...] She had DEXA scan in 07/2022 at [facility]. It revealed osteopenia with Tscore -0.6 Since [...] recurrence, which she would like done at [place]. We will call with results. Otherwise she [...] bone density scan was in 07/2022 at [facility],next one will be 07/2024. She will need screening mammogram as well every March. For her mild chronic thrombocytopenia, it may be related to [place] and Seroquelbut will monitor her CBC, CMP, [...] is reported in the surgeon note as ER/SC positive and HER2/manolo pending however there are [...] not report any status of the ER, SC and HER2/manolo, however Dr. García note to dictate that patient was ER/SC positive and HER2/manolo was pending. Left breast [...] nipple 08/01/23 Lumpectomy path: Pathological Diagnosis A. Adams node, left axilla, biopsy: Metastatic carcinoma to [...] Examined (sentinel and non-sentinel): 4 Number of Adams Nodes Examined: 4 pTNM CLASSIFICATION (AJCC 8th [...] it was ER positive on the percent, SC +60%, low Ki-67 of only 5%, HER2 [...] She had DEXA scan in 07/2022 at [facility]. It revealed osteopenia with Tscore -0.6 12/21/23: [...] labs for review. Taking Letrzole. [facility] Medical History Medical History Diabetes Osteopenia Invasive ductal carcinoma of left breast Left breast cancer with T3 tumor, >5 cm in greatest dimension Ingrown right greater toenail removed Ingrown left greater toenail removed Fibrocystic breast determined by biopsy Vaginal atrophy [place] use Elevated fasting glucose Former smoker Depression [...] 11:05/15/24 Creatinine 1.06 mg/dL (0.55-1.02) H 05/15/24 11:00 5 Glucose 174 mg/dL (74-106) H 05/15/24 11:00 05/15/24 Calcium 10.3 mg/dL (8.5-10.1) H 05/15/24 11:00 [...] signed by Christine Velazquez MD> 05/23/[address] [facility] Work Phone: Progress note Author Christine Velazquez [facility] HospitalNote Date/TimeOctober 2024 10:49am [facility] [place] [address] Cancer Center Note Signed Patient: Melony Manley MR#: [id number] : 1965 Acct:[id number] Age/Sex: 60 / F Type: REG AMB Date of Service: 02/12/25 Copies to: Susan Ayala MD~ Assessment & Plan A/P (1) Invasive ductal carcinoma of left breast: (2) Osteopenia: (3) Breast pain, left: Plan Melony is a 58-year-old nice lady with a stage IIa, pT1b, pN1, MX left breast centrally located invasive ductal carcinoma with 1+ out of 4 lymph node for invasive cancer. ER/SC reported from the 03/20/2023 core biopsy to be ER 100% positive, PER 60% positive and HER2 manolo 2+ by IHC, negative by FISH, Ki 67 low 5%. Surgical pathology report is not dictating the status of the ER, SC and HER2/manolo. Initial consult for medical oncology on 09/21/2023: We went over her new diagnosis of new left breast invasive ductal carcinoma, stage IIa, and we went over and discussed possible options of treatmentbased on the ER, SC and HER2/manolo status considering that she has [...] She had DEXA scan in 07/2022 at [facility]. It revealed osteopenia with Tscore -0.6 Since [...] recurrence, which she would like done at [place]. We will call with results. Otherwise she [...] endocrine therapy currently. Her outside labs at [facility] on 08/02/2024 revealed hemoglobin 13.0 withnormal WBC [...] therefore herthrombocytopenia is most likely related to [place] and Seroquel but will monitor her CBC, [...] is reported in the surgeon note as ER/SC positive and HER2/manolo pending however there are [...] not report any status of the ER, SC and HER2/manolo, however Dr. García note to dictate that patient was ER/SC positive and HER2/manolo was pending. Left breast [...] nipple 08/01/23 Lumpectomy path: Pathological Diagnosis A. Adams node, left axilla, biopsy: Metastatic carcinoma to [...] Examined (sentinel and non-sentinel): 4 Number of Adams Nodes Examined: 4 pTNM CLASSIFICATION (AJCC 8th [...] it was ER positive on the percent, SC +60%, low Ki-67 of only 5%, HER2 [...] She had DEXA scan in 07/2022 at [facility]. It revealed osteopenia with Tscore -0.6 12/21/23: [...] endocrine therapy currently. Her outside labs at [facility] on 08/02/2024 revealed hemoglobin 13.0 withnormal WBC [...] No concerns voiced at time of intake. [facility] Medical History Medical History Diabetes Osteopenia Invasive ductal carcinoma of left breast Left breast cancer with T3 tumor, >5 cm in greatest dimension Ingrown right greater toenail removed Ingrown left greater toenail removed Fibrocystic breast determined by biopsy Vaginal atrophy [place] use Elevated fasting glucose Former smoker Depression [...] 11:2 9 Hgb, (12.0-16.0) 12.8 g/dL 02/11/25, : Hct, (36.0-48.0) 39.9 % 02/11/25, : MCV, (81.0-99.0) 88.7 fL 02/11/25, : RDW, (11.0-15.0) 14.5 % 02/11/25, : Plt Count, (150-450) 106 10 3/uL L 02/11/25, 11: Sodium, (136-145) 145 mmol/L 02/11/25, : Potassium, (3.5-5.1) 3.8 mmol/L 02/11/25, :29 BUN, (7.0-18.0) 10.0 mg/dL 02/11/25, : Creatinine, (0.55-1.02) 0.79 mg/dL 02/11/25, Glucose, (74-106) 136 mg/dL H 02/11/25, Calcium, (8.5-10.1) 9.5 mg/dL 02/11/25, Total Bilirubin, (0.2-1.0) 0.3 mg/dL 02/11/25, : AST, (15-37) 27 U/L 02/11/25, : ALT, (14-59) 32 U/L 02/11/25, Alkaline Phosphatase, (46-116) 88 U/L 02/11/25, Total Protein, (6.4-8.2) 7.7 g/dL 02/11/25, Albumin, (3.4-5.0) 3.8 g/dL 02/11/25, Social Determinants [...] <Electronically signed by Christine Velazquez MD> 02/12/[address] [facility] Work Phone: Reason for referral (narrative)No reason for referral information availableSt. Charles Hospital Work Phone: Advance Directives No Advanced Directives Records Found Advance Directive Response Recorded Date/ Time Advance Directives No January 3:39pm Advance Directive Response Recorded Date/ Time Advance Directives No January 4:39pm Advance Directive Response Recorded Date/ Time Advance Directives No March 16, 2024 9:07am Advance Directive Response Recorded Date/ Time Advance Directives No March 16, 2024 10:07am Summary Purpose Family History No Family History Records Found Relationship Condition Age at Onset Recorded Date/T everardo Not Specified Malignant neoplasm of stomach Unknown Relationship Condition Age at Onset Recorded Date/T everardo Not Specified Malignant neoplasm of stomach Unknown DeceasedUnknownMalignant neoplasmUnknownfatherHeart diseaseUnknownHypertension Unknown Relationship Condition Age at Onset Recorded Date/T everardo mother Malignant neoplasm of stomach Unknown DeceasedUnknownMalignant neoplasmUnknownfatherHeart diseaseUnknownHypertension Unknown Reason for Referral Reason I called and made ap pt - 04/05 2pm. We are faxing path result. Diagnosis 1 Invasive ductal carc inoma of left breast (C50.912) [facility]erral Organization [facility] Referring Provider First Name Susan Referring Provider Last Name Jamie Referring Provider Specialty Family [facility] Referred Organization [facility] Referred Provider Geraldo García Referred Address ,[place], [place],[address] Referred Provider Specialty Surgery Referral Priority Routine Chief Complaint and Reason for Visit Chief Complaint Left Breast Cancer Left Breast Cancer Chief Complaint Left Breast Cancer Left Breast Cancer Check Up abnormal mri left breast cancerReason for VisitHematoma of breast following procedure Chief Complaint Left Breast Cancer Check Up abnormal mri left breast cancer left breast cancerReason for VisitHematoma of breast following procedure Chief Complaint Left Breast Cancer BH Check Up abnormal mri left breast cancer left breast cancer Runny Nose/ Sore ThroatReason for VisitHematoma of breast following procedure Chief Complaint BH Check Up abnormal mri left breast cancer left breast cancer Runny Nose/ Sore Throat Breast CancerReason for VisitHematoma of breast following procedure Allergic rhinitis GERD (gastroesophageal reflux disease) Hyperlipidemia Chief Complaint Check Up abnormal mri left breast cancer left breast cancer Runny Nose/ Sore Throat Breast Cancer BH breast cancer NEW breast cancer referral to gastroReason for VisitHematoma of breast following procedure Allergic rhinitis GERD (gastroesophageal reflux disease) Hyperlipidemia Invasive ductal carcinoma of left breast Osteopenia Chief Complaint left breast cancer left breast cancer Runny Nose/ Sore Throat Breast Cancer BH NEW breast cancer referral to gastro breast cancer Follow UpReason for VisitAllergic rhinitis GERD (gastroesophageal reflux disease) Hyperlipidemia Invasive [...] cancer Med Onc/Rad Onc Follow Up 1 MonthReason for VisitInvasive ductal carcinoma of left breast Osteopenia Invasive ductal carcinoma of left breast Invasive ductal carcinoma of left breast Osteopenia Invasive ductal carcinoma of left breast Chief Complaint Left breast cancer Left breast cancer Screening Screening Amb Documentation f/u moved up from 01/02 per 12/13 triage Med Onc/Rad Onc Follow Up 1 Month BH Follow Up Left breast cancerReason for VisitInvasive ductal carcinoma of left breast Osteopenia Invasive ductal carcinoma of left breast Invasive ductal carcinoma of left breast Osteopenia Chief Complaint Left breast cancer Screening Screening Amb Documentation f/u moved up from 01/02 per 12/13 triage Med Onc/Rad Onc Follow Up 1 Month BH Follow Up Left breast cancer Med Check Up/Ear CleaningReason for VisitInvasive ductal carcinoma of left breast Osteopenia Invasive [...] 10:38am UC follow up, not feeling better [facility] 2023 2:36pm Reason for Visit Admit Date Invasive ductal carcinoma of left breast January 03, 2024 1:43pm Invasive ductal carcinoma of left breast February 15, 2024 12:46pm Osteopenia February 15, 2024 1 2:46pm Right arm pain February 20, 2024 1 0:22am Type 2 diabetes mellitus with hyperglyce [facility] February 20, 2024 10:22am Right acute [...] 10:38am UC follow up, not feeling better [facility] 2023 2:36pm April 16, 2024 12:53pm [...] 10:25am UC follow up, not feeling better [facility] 2023 2:36pm May 14, 2024 12 [...] 10:25am [facility], [facility] May 14, 2024 12 [...] 10:25am UC follow up, not feeling better [facility] 2023 2:36pm May 14, 2024 12 [...] 2 diabetes mellitus with hyperglyce [facility] May 24, 2024 1:23pm Wellness examination May [...] 9:49am Type 2 diabetes mellitus with hyperglyce [facility] February 03, 2025 9:49am Chief Complaint Admit Date Recheck Kidneys/Check Up [...] 9:49am Type 2 diabetes mellitus with hyperglyce [facility] February 03, 2025 9:49am Breast pain, left February 12, 2025 10 :19am Invasive ductal carcinoma of left breast February 12, 2025 10:19am Osteopenia February 12, 2025 10 :19am Additional Source Comments Care Teams (unrecognized sec [...] Start: May 23, 2024 End: May 23, 2024d Jose Luis Jacobson-Bibi , MDAttending ProviderActiveStart: May 23, 2024 End: May 23, 2024 Team Status: Active Member Role Status Dates Susan Aylaa MD Primary Care Provider Active Start: May 23, 2024 d Jose Luis Jacobson-Bibi , MDAttending ProviderActiveStart: May 23, 2024 Caterina Alexandre ProviderActiveStart: May 23, 2024 Gaurav Jaime , MDActiveStart: May 23, 2024 Team Status: Inactive Member Role Status Dates Susan Ayala MD Primary Care Provide r, Attending Provider Active Start: May 24, 2024 End: May 24, 2024 Team Status: Inactive Member Role Status Dates Susan Ayala MD Primary Care Provide r, Attending Provider Active Start: June 11, 2024 End: June 11, 2024 Team Status: Active Member Role Status Dates Gavin Palza MD Attending Provider Active Start: July 16, 2024 Team Status: Inactive Member Role Status Dates Susan Ayala MD Primary Care Provider Active Start: July 18, 2024 End: July 18, 2024Sofi Watson APRN OLDER WORKER SPECIALIST-CAttending ProviderActive Start: July 18, 2024 End: July 18, 2024 Team Status: Active Member Role Status Dates Susan Ayala MD Primary Care Provide r, Attending Provider Active Start: August 02, 2024 Team Status: Inactive Member Role Status Dates Susan Ayala MD Primary Care Provider Active Start: August 14, 2024 End: August 14, 2024carlitos Velazquez MDAttending ProviderActiveStart: August 14, 2024 End: August 14, 2024 Team Status: Active Member Role Status Dates Susan Ayala MD Primary Care Provider Active Start: May 15, 2024 d Yaser Al-Marrawi , MDAttending ProviderActiveStart: May 15, 2024 Team Status: Inactive Member Role Status Dates Susan Ayala MD Primary Care Provider Active Start: January 03, 2024 End: January 03, 2024Nonohemi Jaime , MDAttending ProviderActiveStart: January 03, 2024 End: January 03, 2024 Team Status: Active Member Role Status Dates Susan Ayala MD Primary Care Provider Active Start: February 08, 2024 d Jose Luis Al-Marianrabrian , MDAttending ProviderActiveStart: February 08, 2024 Team Status: Inactive Member Role Status Dates Susan Ayala MD Primary Care Provider Active Start: February 15, 2024 End: February 15, 2024d Shelleyser Al-Marianrabrian , MDAttending ProviderActiveStart: February 15, 2024 End: February 15, 2024 Team Status: Active Member Role Status Dates Susan Ayala MD Primary Care Provider Active Start: February 15, 2024 d Jose Luis Jacobson-Bibi , MDAttending ProviderActiveStart: February 15, 2024 Geraldo Garcaí , MALIAeferring ProviderActiveStart: February 15, 2024 Gaurav Jaime , MDActiveStart: February 15, 2024 Team Status: Inactive Member [...] Active Start: March 16, 2024 End: March 16doug Boyd APRN OLDER WORKER SPECIALIST-CAttending Provider ActiveStart: March 16, 2024 End: March 16, 2024 Team Status: Active Member Role Status Dates Susan Ayala MD Primary Care Provider Active Start: November 20, 2023 Caterina Alexandre ProviderActiveStart: November 20, 2023 Gaurav Jaime , PRASANTHttending Provider, Other ProviderActiveStart: November 20, 2023 Team Status: Active Member Role Status Dates Susan Ayala MD Primary Care Provider Active Start: November 27, 2023 Geraldo García , DOReferring ProviderActiveStart: November 27, 2023 Gaurav Jaime , MDAttending Provider, Other ProviderActiveStart: November 27, 2023 Team Status: Inactive Member Role Status Dates Susan Ayala MD Primary Care Provider Active Start: December 05, 2023 End: December 04atherine L Ly , DOAttending ProviderActiveStart: December 05, 2023 End: December 05, 2023 Team Status: Active Member Role Status Dates Susan Ayala MD Primary Care Provider Active Start: December 05, 2023 Lisa L Ly , DOAttending Provider, Other ProviderActiveStart: December 05, 2023 Team Status: Active Member Role Status Dates Susan Ayala MD Primary Care Provider Active Start: December 06, 2023 Chel Phillips , CMAAttending ProviderActiveStart: December 06, 2023 Team Status: Inactive Member Role Status Dates Susan Ayala MD Primary Care Provider Active Start: December 21, 2023 End: December 21, 2023Mhd Yaser Al-Marrawi , MDAttending ProviderActiveStart: December 21, 2023 End: December 21, 2023 Team Status: Active Member Role Status Dates Susan Ayala MD Primary Care Provider Active Start: December 22, 2023 Mhd Yaser Al-Marrawi , MDAttending ProviderActiveStart: December 22, 2023 Team Status: Active Member Role Status Dates Gavin Plaza MD Attending Provider Active Start: January 23, 2024 Team Status: Inactive Member Role Status Dates Susan Ayala MD Primary Care Provider Active Start: October 11, 2023 End: October 11, 2023Mhd Yaser Al-Marrawi , MDAttending ProviderActiveStart: October 11, 2023 End: October 11, 2023 Team Status: Inactive Member Role Status Dates Susan Ayala MD Primary Care Provider Active Start: October 24, 2023 End: October 24, 2023Nonohemi Jaime , MDAttending ProviderActiveStart: October 24, 2023 End: October 24, 2023Mhd Yaser Al-Marrawi , MDReferring ProviderActiveStart: October 24, 2023 End: October 24, 2023 Team Status: Active Member Role Status Dates Susan Ayala MD Primary Care Provider Active Start: November 02, 2023 Geraldo Itzkowitz , DOReferring ProviderActiveStart: November 02, 2023 Noraly R Addison , MDAttending Provider, Other ProviderActiveStart: November 02, 2023 Team Status: Active Member Role Status Dates Susan Ayala MD Primary Care Provider Active Start: November 08, 2023 Geraldo Itzkowitz , DOReferring ProviderActiveStart: November 08, 2023 Noraly R Addison , MDAttending Provider, Other ProviderActiveStart: November 08, 2023 Team Status: Active Member Role Status Dates Susan Ayala MD Primary Care Provider Active Start: November 13, 2023 Geraldo Itzkowitz , DOReferring ProviderActiveStart: November 13, 2023 Gaurav R Addison , MDAttending Provider, Other ProviderActiveStart: November 13, 2023 Team Status: Active Member Role Status Dates Susan Ayala MD Primary Care Provider Active Start: November 22, 2023 Geraldo Itzkowitz , DOReferring ProviderActiveStart: November 22, 2023 Gaurav R Addison , MDAttending Provider, Other ProviderActiveStart: November 22, 2023 Team Status: Active Member Role Status Dates Gavin Plaza MD Attending Provider Active Start: December 11, 2023 Team Status: Active Member Role Status Dates Susan Ayala MD Primary Care Provider Active Start: January 03, 2024 [facility] Jose Luis Jacobson-Bibi , MDAttending ProviderActiveStart: January 03, 2024 Geraldo Itzkowitz , DOReferring ProviderActiveStart: January 03, 2024 Gaurav Jaime , MDActiveStart: January 03, 2024 Team Status: Active Member Role Status Dates Susan Ayala MD Primary Care Provider Active Start: September 26, 2023 Ania Blanca MDAttending ProviderActiveStart: September 26, 2023 Team Status: Inactive Member Role Status Dates Susan Ayala MD Primary Care Provide r, Attending Provider Active Start: October 03, 2023 End: October 03, 2023 Team Status: Active Member Role Status Dates Susan Ayala MD Primary Care Provider Active Start: November 29, 2023 Geraldo Itruby , DOReferring ProviderActiveStart: November 29, 2023 Gaurav Jaime , MDAttending Provider, Other ProviderActiveStart: November 29, 2023 Team Status: Active Member Role Status Dates Susan Ayala MD Primary Care Provider Active Start: December 21, 2023 Mhd Shelleymy Jacobson-Pillobrian , MDAttending ProviderActiveStart: December 21, 2023 Geraldo Itsophiakoyue , DOReferring ProviderActiveStart: December 21, 2023 Gaurav Jaime , MDActiveStart: December 21, 2023 Team Status: Inactive Member Role Status Dates Susan Ayala MD Primary Care Provide r, Attending Provider Active Start: July 11, 2023 End: July 11, 2023 Team Status: Inactive Member Role Status Dates Susan Ayala MD Primary Care Provider Active Start: July 12, 2023 End: July 12, 2023Fredric Itzkowidean , DOAttending ProviderActiveStart: July 12, 2023 End: July 12, 2023 Team Status: Inactive Member Role Status Dates Susan Ayala MD Primary Care Provider Active Start: July 19, 2023 End: July 19, 2023Fredric Itzkoyue , DOAttending ProviderActiveStart: July 19, 2023 End: July 19, 2023 Team Status: Active Member Role Status Dates Susan Ayala MD Primary Care Provide r, Attending Provider Active Start: July 24, 2023 Team Status: Inactive Member Role Status Dates Susan Ayala MD Primary Care Provider Active Start: August 01, 2023 End: August 01, 2023Fredric Itzkoyue , DOAttending ProviderActiveStart: August 01, 2023 End: August 01, 2023 Team Status: Inactive Member Role Status Dates Susan Ayala MD Primary Care Provide r, Attending Provider Active Start: August 11, 2023 End: August 11, 2023 Team Status: Inactive Member Role Status Dates Susan Ayala MD Primary Care Provider Active Start: August 29, 2023 End: August 29, 2023Fredric Itzkowitz , DOAttending ProviderActiveStart: August 29, 2023 End: August 29, 2023 Team Status: Active Member Role Status Dates Gavin Plaza MD Attending Provider Active Start: September 19, 2023 Team Status: Active Member Role Status Dates Susan Ayala MD Primary Care Provider Active Start: September 21, 2023 Mhd Yaser Al-Marrabrian , MDAttending ProviderActiveStart: September 21, 2023 Geraldo Itzkoyue , DOReferring ProviderActiveStart: September 21, 2023 Team Status: Inactive Member Role Status Dates Susan Ayala MD Primary Care Provider Active Start: September 21, 2023 End: September 21, 2023d Yaser Al-Marrabrian , MDAttending ProviderActiveStart: September 21, 2023 End: September 21, 2023Fredric Itzkowidean , DOReferring ProviderActiveStart: September 21, 2023 End: September 21, 2023 Team Status: Active Member Role Status Dates Gavin Plaza MD Attending Provider Active Start: July 04, 2023 Team Status: Inactive Member Role Status Dates Susan Ayala MD Attending Provider Active Team Status: Inactive Member Role Status Dates Geraldo García DO Attending Provider Active Shaan Ling Care ProviderActive Team Status: Inactive Member Role Status Dates Geraldo García DO Attending Provider Active Start: May 02, 2023 End: May 02, 2023Susan Ayala MDPrimary Care ProviderActiveStart: May 02, 2023 End: May 02, 2023 Team Status: Inactive Member Role Status Dates Geraldo García DO Attending Provider Active Start: May 16, 2023 End: May 16, 2023ELIN Lingrimary Care ProviderActiveStart: May 16, 2023 End: May 16, 2023 Team Status: Active Member Role Status Hilary Plaza MD Attending Provider Active Start: May 30, 2023 Team Status: Active Member Role Status Dates Susan Ayala MD Primary Care Provider Active Start: October 11, 2023 d Jose Luis Jacobson-Bibi , MDAttending ProviderActiveStart: October 11, 2023 Geraldo Itruby , DOReferring ProviderActiveStart: October 11, 2023 Team Status: Active Member Role Status Dates Gavin Plaza MD Attending Provider Active Start: October 31, 2023 Team Status: Active Member Role Status Dates Susan Ayala MD Primary Care Provider Active Start: November 15, 2023 Geraldo Itzkobriantz , DOReferring ProviderActiveStart: November 15, 2023 Noraly Jaime , MDAttending Provider, Other ProviderActiveStart: November 15, 2023 Team Status: Active Member Role Status Dates Susan Ayala MD Primary Care Provider Active Start: December 04, 2023 d Jose Luis Jacobson-Bibi , MDActiveStart: December 04, 2023 Geraldowally Tiradokoyue , DOReferring ProviderActiveStart: December 04, 2023 Gaurav Jaime , MDAttending ProviderActiveStart: December 04, 2023 Team MemberRelationshipSpecialtyStart DateEnd Date Susan Ayala MD [address] [place] [address] PCP - [facility]03/15/23Team MemberRelationshipSpecialtyStart DateEnd Date Susan Ayala MD [address] [place] [address] PCP - [facility]03/15/23 Team Status: Inactive Member Role Status Dates Susan Ayala MD Primary Care Provider Active Start: March 22, 2024 End: March 22, 2024Anne Motta ProviderActive Start: March 22, 2024 End: March 22, 2024 Team Status: Active Member Role Status Dates Susan Ayala MD Primary Care Provider Active Start: March 22, 2024 carlitos Velazquez MDAttending ProviderActiveStart: March 22, 2024 Leila Alexandreerralirio ProviderActiveStart: March 22, 2024 Gaurav Jaime MDActiveStart: March 22, 2024 Team Status: Inactive Member Role Status Dates Susan Ayala MD Primary Care Provide r, Attending Provider Active Start: March 25, 2024 End: March 25, 2024Team MemberRelationshipSpecialtyStart DateEnd Date Susan Ayala MD [address] [place] [facility] [address] [facility] - [facility] Imkmhihg26/8/23Team MemberRelationshipSpecialtyStart DateEnd Date Susan Aayla MD [address] [place] [facility] [address] [facility] - [facility]23Team MemberRelationshipSpecialtyStart DateEnd Date Susan Ayala MD [address] [place] [facility] [address] PCP - [facility]03/15/23Team MemberRelationshipSpecialtyStart DateEnd Date Susan Ayala MD [address] [place] [facility] [address] [facility]/23Team MemberRelationshipSpecialtyStart DateEnd Date Susan Ayala MD [address] [place] [facility] [address] PCP - Generalmi Xwrtdhuo30/8/23 Team Status: Active Member Role Status Dates Gavin Plaza MD Attending Provider Active Start: April 16, 2024 Team Status: Active Member Role Status Dates Gavin Plaza MD Attending Provider Active Start: May 14, 2024 Team MemberRelationshipSpecialtyStart DateEnd Date Susan Ayala MD [address] [place] [facility] [phone] [facility] Medicine09/05/24Team MemberRelationshipSpecialtyStart DateEnd Date Susan Ayala MD [address] [place] [facility] [address] PCP - [facility]09/05/24Team MemberRelationshipSpecialtyStart DateEnd Date Susan Ayala MD [address] [place] [facility] [address] PCP - [facility]09/05/24Team MemberRelationshipSpecialtyStart DateEnd Date Susan Ayala MD [address] [place] [facility] [address] PCP - [facility]09/05/24 Team Status: Inactive Member Role Status Dates Susan Ayala MD Primary Care Provider Active Start: February 03, 2025 End: February 03, 2025Yuridia Ling ProviderActiveStart: February 03, 2025 End: February 03, 2025 Team Status: Active Member Role Status Dates Jose Luis Velazquez Attending Provider Active Start : February 11, 2025 Shaan Ling [facility] ProviderActiveStart: February 11, 2025 Team Status: Active Member Role Status Dates Susan Ayala MD Primary Care Provider Active Start: February 12, 2025 Yuridia Meneses ProviderActiveStart: February 12, 2025 Caterina Alexandre ProviderActiveStart: February 12, 2025 Team Status: Inactive Member Role Status Dates Susan Ayala MD Primary Care Provider Active Start: February 12, 2025 End: February 12, 2025Mhd Yuridia Mao ProviderActiveStart: February 12, 2025 End: February 12, 2025 Goals (unrecognized section and content) Goals [...] FOR VISIT (unrecogniz ed section and content) ReasonCommentsToenail CareNon DM NailsReasonCommentsOtitis MediaReasonComments Toenail ProblemRt gt nail falling offfReasonCommentsFollow-up28D S/P PERM INFORMATION SOURCE (unrecogn ized section and content) DATE CREATED AUTHOR 09/02/2022 [facility] DATE CREATED AUTHOR AUTHOR'S ORGANIZ ATION 07/07/2023 [facility] DATE CREATED AUTHOR AUTHOR'S ORGANIZ ATION 10/05/2024 [facility] DATE CREATED AUTHOR AUTHOR'S ORGANIZ ATION 02/22/2025 [facility] FOR RECORDS PERTAINING TO PATIENTS WHO [...] BE BASED ON THE PRIMARY CLINICAL RECORDS. [facility] [employer] provides no warranty or guarantee of the accuracy or completeness of information in this document.
[2025-02-26 08:13] LABS: Lithium (Eskalith(R)), Serum 0.9 mmol/L (0.5-1.2)
== END 2025-02-25 09:30 | disposition home or self-care (01) ==
LOC: LAB 09:32
PROVIDERS: PCP Family Medicine; Visit Provider Psychiatry & Neurology Psychiatry
DX: F31.9 Bipolar disorder, unspecified (principal)
CPT/HCPCS: 36415; 80178

== ENCOUNTER 2025-04-07 12:46 | Outpatient (OUT) | payer MEDICARE, MEDICAID, SELFPAY ==
--- OUTSIDE RECORDS SUMMARY | 2025-04-07 12:49 | XMS_ITS | Clinical Summary ---
Author Organization [facility] Address [address] [place] [address] Care Team Providers Care Oyster Preparer Name Role Phone Alexia Raya MD Primary Care Provider [phone] Allergies Active AllergyReactionsCriticalityNoted QuqgLddrfppvVbuenuaqyzshti47/26/2024 Other Reaction(s): Unknown Reaction LfxeewcdtkeEepbgOkdi14/02/2023 Other Reaction(s): Swelling of Lip/Tongue/Throat Medications MedicationSigDispense QuantityRefillsLast FilledStart DateEnd DateStatus levothyroxine (Synthroid, Levoxyl) 75 MCG tablet Take 75 mcg by mouth in the morning. Take before meals.Active lithium ER (Eskalith) 450 MG 12 hr tablet Take 450 mg by mouth at bedtime.12/27/2022ctive omeprazole (PriLOSEC) [address] capsule Take 40 mg by mouth in the morning. Take before meals.Active QUEtiapine (SEROquel) 200 MG tablet Take 200 mg by mouth at bedtime.02/28/2023ctive rosuvastatin (Crestor) 20 MG tablet Take 20 mg by mouth in the morning.02/27/2023ctive letrozole (Femara) 2.5 MG chemo tablet Daily10/11/2023ctive busPIRone (Buspar) 5 MG tablet Take by mouth 2 (two) times a dayActive alendronate (Fosamax) 70 MG tablet Indications:Osteopenia, unspecified locationTake 1 tablet (70 mg) by mouth every 7 (seven) days Take in the morning with a full glass of water,on an empty stomach, and do not take anything else by mouth or lie down for the next 30 min. 4 tablet 5Active Active Problems ProblemNoted DateDiagnosed DateSudden idiopathic hearing loss of right ear with restricted hearing of left ear04/10/2024bnormal mnodzknji78/02/2024llergic lfvmalan14/02/2024reast pain, left04/08/2024Elevated fasting qymwucw3904/08/2024 GERD (gastroesophageal reflux disease)04/08/20241796Mabrjaoglikbpw98/02/2024Invasive ductal carcinoma of left dcfpxq1204/08/20248631Aimdhuhcld70/02/2024ight acute otitis media04/08/2024ight arm pain04/08/2024Screening for colon qrtujv4404/08/2024Stage 3 chronic kidney zibhujg0004/08/2024Type 2 diabetes mellitus with hyperglycemia 04/08/2024Malignant neoplasm of central portion of left breast in female, estrogen receptor nmzncymw39/12/2024 Encounters DateTypeDepartmentCare RpnzTazqcdnzzxq45/04/2025Refill [facility] [address] [place] [address] Chel Mahoney PA Osteopenia, unspecified cazofcwz74/15/2025Telephone [facility] [address] [place] [address] Chel Mahoney PA from Last 3 Months Immunizations ImmunizationAdministration DatesNext DueInfluenza, Injectable, MDCK, preservative free02/21/2024Influenza, injectable, MDCK, preservative free, /24/2022Influenza, injectable, quadrivalent, preservative free 01/23/2017,02/22/2016Influenza, seasonal, dfhydzhfqf10/22/1997Influenza, seasonal, injectable, preservative free02/05/2015Pneumococcal Polysaccharide [id number] Family History Medical HistoryRelationNameCommentsHeart diseaseFatherCancerMaternal Grandmother Cecile F. IsonDiabetesMaternal GrandmotherCecile Mckenna IsonCancerMotherCecile Grady Stomach cancerMotherCecile GradyBreast cancerNeg HxColon cancerNeg HxOvarian cancerNeg HxRelationNameStatusCommentsFatherDeceasedMaternal GrandmotherCecile Mckenna IsonMAntonio Franco ShermanDeceased Social History Tobacco UseTypesPacks/DayYears UsedDateSmoking Tobacco: XdrdtsJgchznznwy055Bbkk: 2017Smokeless Tobacco: Never Tobacco Cessation:Counseling Given: Yes Alcohol UseStandard Drinks/WeekCommentsNot Currently0 (1 standard drink = 0.6 oz pure alcohol)CommentsNoSex and Gender InformationValueDate RecordedSex Assigned at BirthNot on fileLegal MlvNmrmcu69/15/2023 7:40 PM EDTGender Identity Not on fileSexual OrientationNot on file Last Filed Vital Signs Vital SignReadingTime TakenCommentsBlood Oqaevbeo950/7812 12:50 PM EST Qjbyo426803/07/2024 1:23 PM EDTTemperature--Respiratory Jvnb956510/03/2024 1:42 PM EDTOxygen Saturation--Inhaled Oxygen Concentration--Wisuto74.4 kg (164 lb) 10/03/2024 1:42 PM GRNJjfdun229.6 cm (5' 4 )10/03/2024 1:42 PM EDTBody Mass Index28.15010/03/2024 1:42 PM EDT Plan of Treatment DateTypeDepartmentCare Team (Latest Contact Info)Kbretsdqoeq59/03/2025 2:00 PM ESTProcedure Visit [facility] [address] [place] [address] Chel Mahoney PA [address] [place] [address] Insurance Care Teams Team MemberRelationshipSpecialtyStart DateEnd Alexia Raya MD [address] [place] [address] PCP - GeneralFamily Medicine09/05/24
--- OUTSIDE RECORDS SUMMARY | 2025-04-07 12:49 | XMS_ITS | Clinical Summary ---
Author Organization [facility] Address [address] [place] [address] Phone Care Team Providers Care Mortgage Funder Name Role Phone Unavailable Primary Care Provider Unavailabl e Social History Tobacco UseTypesPacks/DayYears UsedDateSmoking Tobacco: Never Assessed CommentsUnknownSex and Gender InformationValueDate RecordedSex Assigned at Not on fileLegal HzmOezcnp83/04/2023 7:14 AM ESTGender IdentityNot on fileSexual OrientationNot on file Plan of Treatment Health MaintenanceDue DateLast DoneCommentsCT Mdcwawpsyyhv1964Colonoscopy 1964Colorectal Cancer Qqclklehe1964FIT-DNA (Cologuard)1964FIT 1964HIV Hkvddbuzl1964Lipid Panel1964Medicare Annual Wellness Visit (AWV)1964 4919Hoqokzsfbltsz1964MMR Vaccines (1 of 1 - Standard series)01/31/1965Hepatitis C Xxpcdxvtb03/26/1982Cervical Cancer Screening 01/31/1985HPV/Jpsgfh9501/31/1985Pap Smear01/31/1985DTaP/Tdap/Td Vaccines (1 - Tdap)01/31/19864520Mirsivkhx01/26/2004Pneumococcal Vaccine (1 of 1 - PCV)01/31/2014 Zoster [...] file Type:Not on file Address: David Devi [address] [phone]
--- OUTSIDE RECORDS SUMMARY | 2025-04-07 12:49 | XMS_ITS | Clinical Summary ---
Author Organization [facility] Address [address], [address] [place] [address] Care Team Providers Care Driver Utility Worker Name Role Phone Alexia Raya MD Primary Care Provider [phone] Social History Tobacco UseTypesPacks/DayYears UsedDateSmoking Tobacco: Never Assessed CommentsUnknownSex and Gender InformationValueDate RecordedSex Assigned at Not on fileLegal DouIelypm01/08/2013 7:41 PM ESTGender IdentityNot on fileSexual OrientationNot on file Plan of Treatment Health MaintenanceDue DateLast DoneCommentsDepression Kxgbxa2902/01/1976HIV screen 01/31/1979Hepatitis C inuxgn6001/31/1982DTaP/Tdap/Td vaccine (1 - Tdap)01/31/1983 Pap smear01/31/1985Cervical cancer ehrphy6201/31/1994HPV (without or with Pap) 01/31/19948282Dotlwplkalp22/26/2009Colorectal Cancer Wjokrp5201/31/2009FIT/FOBT: Average risk01/31/2009Fecal-DNA (Cologuard): Average risk01/31/2009 Sigmoidoscopy/CT vcriptlmdcmy12/26/2009Pneumococcal 50+ years Vaccine (2 of 2 - PCV)Shingles vaccine (1 of 2)01/31/20148570Pakjpq49/28/2016 08/02/2010, 02/03/2010nnual Wellness Visit (Medicare Advantage)05/08/2024Flu vaccine (#1), 01/23/2017, 02/22/2016COVID-19 Vaccine ( season)/, 04/20/2021, 08/27/2020, Additional history existsBreast cancer ldwxwx09603/, 08/26/2022, 08/01/2022 Respiratory Syncytial Virus (RSV) or age 60 yrs+ (1 - 1-dose 75+ series)01/31/2039Pneumococcal 0-49 years IljepzvDzyrqyhskoui39/22/1997Hepatitis A vaccineAged OutNo longer eligible based on [...] 9:30 AM EDT)ComponentValueRef RangeTest MethodAnalysis TimePerformed AtPathologist NicwwqwoxRyyvidigsigvq354(H)<150 MG/DLCMHP SERPemtobkekwx858(H)<200 MG/DLCMHP CRMGSF91(L)>60 MG/DLCMHP LABLDL Chyoibgxfy05<100 MG/DLCMHP LABSpecimen (Source)Anatomical Location / LateralityCollection Method / VolumeCollection TimeReceived Time08/02/2010 9:30 AM EDT08/02/2010 10:02 AM EDT Narrative [facility] - 08/02/2010 1:13 PM EDT CALCULATED LDL IS ESTIMATED, NOT A TRUE MEASUREMENT, AND MAY NOT REFLECT ACTUAL LDL LEVEL. ?? CONSIDER ORDERING A DIRECT LDL OR LIPID PANEL WITH LDL. Performed @ [facility], [address] [place] [address] Authorizing ProviderResult TypeResult StatusLuz Griffin MDCHEMISTRY ORDERABLESFinal ResultPerforming OrganizationAddressCity/State/ZIP CodePhone Number [facility] from Last 3 Months or Most Recently Relevant to Health Maintenance Insurance Care Teams Team MemberRelationshipSpecialtyStart DateEnd Alexia Raya MD [address] [place] [place] [phone] PCP - GeneralFamily Medicine05/25/23
--- NOTE | 2025-04-07 12:51 | MM_ITS ---
Patient Name: NAOMI MANLEY MR#: [id number] : 1965 Exam Date: 04/07/2025 Ordering Doctor: NON-STAFF PHYSICIAN RADIOLOGY REPORT PROCEDURE: MM TOMOSYNTHESIS SCREENING BI COMPARISON: MM TOMOSYNTHESIS DIAGNOSTIC BI, 04/02/2024. MM POST BIOPSY LT, 03/20/2023. MM STEREOTACTIC LOC LT, 03/20/2023. MM TOMOSYNTHESIS DIAGNOSTIC LT, 02/23/2023. INDICATIONS: screening for malignant of breast Calculator Name NCI Breast Cancer Risk Assessment Tool 5 Year Breast Cancer Risk n/a% Lifetime Breast Cancer Risk n/a% Personal Breast Cancer Yes, DCIS Age 58 Personal Ovarian Cancer No Treatments Lumpectomy Family Cancers Mother with stomach cancer at age 55. LOCATION: [facility] BREAST COMPOSITION: The breasts are heterogeneously dense, which may obscure small masses. FINDINGS: RIGHT BREAST: No significant suspicious finding. Benign-appearing calcifications are present. There is a similar focal asymmetry . LEFT BREAST: No significant suspicious finding. Benign-appearing calcifications are present. Similar postsurgical changes are noted with biopsy clips on the left. DIAGNOSTIC CATEGORY 2--BENIGN FINDING. NO CHANGE FROM COMPARISON. RECOMMENDATIONS: ROUTINE MAMMOGRAM AND CLINICAL EVALUATION IN 12 MONTHS. Dictated by: Kavin Mesa MD on 04/07/2025 at 14:53 Approved by: Kavin Mesa MD on 04/07/2025 at 14:55
--- OUTSIDE RECORDS SUMMARY | 2025-04-07 12:57 | XMS_ITS | CCD ---
Author Organization [facility] Care Team Providers Care Treatment Specialist Name Role Phone MD Susan Ayala Attending Provider [phone] FITCH Admitting Unavailabl e [...] JAMIE, DR SUSAN Bryant Primary Care Unavailable NAIA BLANCA Attending Unavailable MIRTA, ANIA Consulting Unavailable [...] Ayala Unavailable DO Geraldo García Attending Provider [phone] MD Susan Ayala Primary Care Provider [phone] ADAMA GARCÍA Referring Unavailable SUSAN AYALA Primary Care Unavailable Itzkowitz, DO Geraldo Attending Provider MD Susan Ayala Primary Care Provider Itzviraj, DO Geraldo Attending Provider [phone] MD Susan Ayala Primary Care Provider MD Gavin Plaza Attending Provider MD Gavin Plaza Attending Provider MD Susan Ayala Primary Care Provider Itcady, DO Geraldo Attending Provider MD Gavin Plaza Attending Provider [phone] MD Christine Velazquez Attending Provider Itzviraj, DO Geraldo Referring Provider [phone] MD Susan Ayala Primary Care Provider Itcady, DO Geraldo Attending Provider MD Christine Velazquez Attending Provider Itcady, DO Geraldo Referring Provider [phone] MD Gavin Plaza Attending Provider MD Susan Ayala Primary Care Provider Marcus, DO Geraldo Referring Provider [phone] MD Gaurav Jaime Attending Provider DO Lisa Rubalcava L Attending Provider MD Susan Ayala Primary Care Provider MD Gavin Plaza Attending Provider MD Christine Velazquez Attending Provider Marcus, DO Geraldo Referring Provider MD Christine Velazquez Attending Provider Itzkoyue, DO Geraldo Referring Provider MD Gavin Plaza Attending Provider MD Christine Velazquez Attending Provider Itzkoyue, DO Geraldo Referring Provider [phone] Susan Ayala MD Primary Care Provider Susan Ayala MD Primary Care Provider Caroline SEPULVEDA, Christine Amaya Attending Provider Itzviraj DO, Geraldo Referring Provider Gavin Plaza MD Attending Provider Susan Ayala MD Primary Care Provider Caroline SEPULVEDA, Christine Amaya Attending Provider Itzkoyue DO, Geraldo Referring Provider Gavin Plaza MD Attending Provider Gavin Plaza MD Attending Provider Susan Ayala MD Primary Care Provider Christine Velazquez MD Attending Provider Itcady SPIVEY, Geraldo Referring Provider Susan Ayala MD Primary Care Provider Christine Velazquez MD Attending Provider Itzviraj DO, Geraldo Referring Provider Gavin Plaza MD Attending Provider [phone] Susan Ayala MD Primary Care Provider GILSON PORTILLO Attending Unavailable GILSON PORTILLO Attending Unavailable GILSON PORTILLO Attending Unavailable ITZKOWITZ, GERALDO H Attending Unavailable GILSON PORTILLO Attending Unavailable GILSON PORTILLO Attending Unavailable CHRISTY QUICK Attending Unavailable ANGELICA HUNTER Attending Unavailable Susan Ayala MD Primary Care Provider Susan Ayala MD Attending Provider [phone] Jose Luis Velazquez Attending Provider Unavailable Christine Velazquez MD Attending Provider [phone] Geraldo García DO Referring Provider [phone] Gavin Plaza Attending Unavailab le Gavin Plaza Admitting Unavailab le Geraldo García Referring Unavailable Christine Velazquez Attending UnavailChristine Medel Admitting UnavailSusan Lockett Primary Care Unavailable Susan Ayala MD Primary Care Provider Susan Ayala MD Primary Care Provider Allergies Allergy ClassificationReported Allergen(s)Allergy TypeDate of OnsetReaction(s) FacilityCephalosporins (antibiotic) (1 source)Cephalosporins (Antibiotic)Drug Amqgoxd18-84-0867Ebjnlsc Reaction [facility] (1 source)PenicillinsDrug Djuoqva50-44-2461Obxffmsv of Lip/Tongue/Throat [facility] (9 sources)cefdinirDrug AllergyUnkBarnes-Jewish [facility] [employer] Other (15 sources)PenicillinDrug Allergyhalucination and swallowing dificultyEast [place] [employer] Other (20 sources)PenicillinsDrug allergy (disorder)13-17-0966Emvdkyit of Lip/Tongue/ThroatL[facility] (10 sources)Medicinal cephalosporin and acting as antibacterial agent (FN)Drug allergyUnkBarnes-[facility] [employer] Other (10 sources)Ceftin *CEPHALOSPORINS*Propensity to adverse reactionsMer[facility] [employer] Other (20 sources)Cephalosporins (Antibiotic); Translations: [Cephalosporins]Allergy to qlwrgauxs55-34-9133Tqqowzu ReactionMercer County Community Hospital (16 sources)PenicillinsDrug Jxkpdcn29-48-6262GrkwrFXJS [facility] (1 source)PenicillinsDrug allergy (disorder)51-96-5177NofvwhvtzMercer County Community Hospital Repository Medications Current Medications MedicationDrug Class(es)DatesSig (Normalized)Sig (Original)alendronic acid 70 mg oral tablet (20 sources)BisphosphonateStart: 04-31-5359izcw 1 tablet by mouth every week Alendronate 70 mg tablet Active 70 MG PO every week September 21, 2023 12:00am Complies with drug therapyStart: 05-02-2023 End: 41-28-4104iygg 1 tablet by mouth every weekAlendronate 70 mg tablet Discontinued 70 MG PO every week May 02, 2023 1:00am August 11, 2023 10:45am mondayascorbic acid 500 mg oral tablet (20 sources)Vitamin CStart: 52-51-4597eikw 1 tablet by mouth once daily in [...] 205.5 mcg (0.15 %) spray,non-aerosol (13 sources)Start: 34-87-1855sssm 1 spray(s) nasal route once dailyAzelastine (Astepro Allergy) 205.5 mcg (0.15 %) spray,non-aerosol Active 2 SPRAY INTRANASAL Daily April 22, 2024 12:38pm administer into each nostrilStart: 96-79-2582chnz 1 spray(s) nasal route once dailyAzelastine (Astepro Allergy) 205.5 mcg (0.15 %) spray,non-aerosol Active 2 SPRAY INTRANASAL Daily April 22, 2024 11:38am administer into each nostrilStart: 03-25-2024 End: 60-39-7852loig 1 spray(s) nasal route once dailyAzelastine (Astepro Allergy) 205.5 mcg (0.15 %) spray,non-aerosol Discontinued 2 SPRAY INTRANASAL Da latoya March 25, 2024 1:00am April 22, 2024 12:38pm administer into each nostrilStart: 03-25-2024 End: 93-55-9725ezen 1 spray(s) nasal route once dailyAzelastine (Astepro Allergy) 205.5 mcg (0.15 %) spray,non-aerosol Discontinued 2 SPRAY INTRANASAL Da latoya March 25, 2024 12:00am April 22, 2024 11:38am administer into each nostrilStart: 26-82-3623fmky 1 spray(s) nasal route once dailyAzelastine (Astepro Allergy) 205.5 mcg (0.15 %) spray,non-aerosol Active 2 SPRAY INTRANASAL Daily March 25, 2024 12:00am administer into each nostrilazithromycin 250 mg oral tablet (8 sources)Macrolide AntimicrobialStart: 09-05-2024 End: 37-63-4730cjdp 1 tablet by mouth once dailyazithromycin (Zithromax Z-Gumaro) 250 MG tablet Indications: Onychocryptosis Take 1 tablet (250 mg) bymouth Daily for 5 days Use as directed 6 tablet 09/05/2024 09/10/2024 ActiveStart: 11-81-7067Msvqugtufhjk 250 MG as directed Orally 2 tabs po today, then 1 tab daily x 4 more days for 5 Mar, Activebenzonatate 200 mg oral capsule (6 sources)Non-narcotic AntitussiveStart: 44-33-1911cuyd 1 capsule by mouth every eight hoursBenzonatate 200 MG 1 capsule Orally Three times a day for 10 day(s) Mar, Activebiotin 10 mg oral capsule (1 source)Start: 94-87-1601Zdebka 10,000 mcg capsule Active MCG PO February 12, 2025 12:00am Complies with drug therapybusPIRone hydrochloride 5 mg oral tablet (20 sources)Start: 59-53-5272trab 1 tablet by mouth twice dailyBuspirone 5 mg tablet Active 5 MG PO Twice daily November 20, 2023 12:00am Complies with drug therapyStart: 07-10-2023 End: 15-54-2583imwj 1 tablet by mouth once dailyBuspirone 5 mg tablet Discontinued 5 MG PO Daily July 10, 2023 1:00am July 11, 2023 3:36pmtake 1 tablet by mouth every twenty-four hoursbusPIRone HCl 5 MG 1 tablet once a day Activecalcium carbonate 1250 mg chewable tablet (14 sources)Start: 76-35-4396bvrw 1 tablet by mouth once dailyCalcium Carbonate (Calcium 500) 500 mg calcium (1,250 mg) tablet,chewable Active 500 MG PO Daily February 15, 2024 12:00am Complies with drug therapycholecalciferol 0.025 mg oral capsule (20 sources)Vitamin DStart: 91-40-1290buwc 1 capsule by mouth once daily Cholecalciferol (Vitamin D3) 25 mcg (1,000 unit) capsule Active 50 MCG PO Daily March 16, 2024 10:17am Complies with drug therapyStart: 02-15-2024 End: 35-72-2725jahr 1 capsule by mouth once dailyCholecalciferol (Vitamin D3) 25 mcg (1,000 unit) capsule Discontinued 25 MCG PO Daily February 12:00am March 16, 2024 10:18amferrous sulfate 140 mg extended release oral tablet (1 source)Start: 17-70-8592Ybwrgcw Sulfate 140 mg (45 mg iron) tablet extended release Active 140 MG PO Every 48 hours 2024 12:00am Complies with drug therapygabapentin 300 mg oral capsule (20 sources)Anti-epileptic AgentStart: 09-20-2024 End: 51-49-4940rhpp 1 capsule by mouth at bedtimeGabapentin 300 mg capsule Active 0 .ROUTE .COMPLEX 60 January 13, 2025 9:04am TAKE 1 CAPSULE BY MOUTH AT BEDTIME Complies with drug therapyStart: 05-23-2024 End: 80-65-9933aivh 1 capsule by mouth once daily at bedtimeGabapentin 300 mg capsule Discontinued 300 MG PO Daily at bedtime 60 May 23, 2024 1:00am September 20, 2024 3:52pmStart: 02-21-2024 End: 82-38-3799erda 1 capsule by mouth once daily at bedtimeGabapentin (Neurontin) 300 mg capsule Discontinued 300 MG PO Daily at bedtime February 202:00am March 16, 2024 10:17amletrozole 2.5 mg oral tablet (20 sources)Aromatase InhibitorStart: 15-17-4299yjdy 1 tablet by mouth once dailyLetrozole 2.5 mg tablet Active 0 .ROUTE .COMPLEX February 03, 2025 3:21pm TAKE 1 TABLET BY MOUTH DAILY Complies with drug therapyStart: 10-11-2023 End: 98-90-3502vipy 1 tablet by mouth once dailyLetrozole 2.5 mg tablet Discontinued 2.5 MG PO Daily February 15, 2024 12:00am February 21, 2024 2 :59pmlevothyroxine sodium 0.05 mg oral tablet (20 sources)l-ThyroxineStart: 07-24-2024 End: 21-00-6130dibe 1 tablet by mouth once daily in the morningLevothyroxine 50 mcg tablet Active 0 .ROUTE .COMPLEX January 08, 2025 8:44am TAKE 1 TABLET BYMOUTH EVERY DAY IN THE MORNING ON EMPTY STOMACH FOR 90 DAYS Complies with drug therapyStart: 08-08-2023 End: 40-44-1116ixct 1 tablet by mouth once daily in the morningLevothyroxine 75 mcg tablet Discontinued 0 .ROUTE .COMPLEX February 19, 2024 10:36pm July 24, 2024 8:30am TAKE 1 TABLET BY MOUTH EVERY DAY IN THE MORNING ON EMPTY STOMACH FOR 90 DAYSStart: 05-02-2023 End: 57-28-6522nwvi 1 tablet by mouth once daily in [...] mg extended release oral tablet (20 sources)Start: 99-08-1487lyik 1 tablet by mouth at bedtime, then take 1 tablet by mouth every twelve hourslithium ER (Eskalith) 450 MG 12 hr tablet Take 450 mg by mouth at bedtime. 12/27/2022 ActiveLithium Carbonate 450 mg 2 tablets QHS ActiveOLANZapine 5 mg oral tablet (20 sources)Atypical AntipsychoticStart: 20-53-6136heoa 1 tablet by mouth at bedtimeOLANZapine (ZyPREXA) 5 MG tablet TAKE 1 TABLET BY MOUTH AT BEDTIME CHANGE IN DOSAGE 06/26/2023 ActiveStart: 05-02-2023 End: 12-67-0021jzyx 1 tablet by mouth once daily in [...] capsule (20 sources)Proton Pump InhibitorStart: 10-31-2023 End: 64-07-5663njec 1 capsule by mouth once daily in the morningOmeprazole 40 mg capsule,delayed release(DR/EC) Active 0 .ROUTE .COMPLEX February 06, 2024 8:28am TAKE 1 CAPSULE BY MOUTH EVERY MORNING Complies with drug therapyStart: 05-02-2023 End: 16-49-2185tzmf 1 capsule by mouth once daily in the morningOmeprazole 40 mg capsule,delayed release(DR/EC) Discontinued 40 MG PO Every morning August 11, 2023 10:51am October 31, 2023 8:37amQUEtiapine 200 mg oral tablet (20 sources)Atypical AntipsychoticStart: 89-15-4242uuqx 1 tablet by mouth at bedtimeQUEtiapine (SEROquel) 200 MG tablet Take 200 mg by mouth at bedtime. 02/28/2023 Activetake 1 tablet by mouth every twenty-four hoursSEROquel 100 MG 1 tablet at bedtime Orally Once a day Activetake 1 tablet by mouth every twenty- four hoursSEROquel 25 MG 1 tablet at bedtime Orally Once a day Activevitamin b12 0.5 mg chewable tablet (1 source)Vitamin Q38Upilu: 25-80-6445Xxsatbulhyf (Vitamin B12) 500 mcg tablet,chewable Active MCG PO February 12, 2025 12:00am Complies with drug therapy Completed/Discontinued Medications MedicationDrug Class(es)DatesSig (Normalized)Sig (Original)acetaminophen 300 mg / codeine phosphate 30 mg oral tablet (20 sources)Opioid AgonistStart: 08-01-2023 End: 29-31-0415vwkk 1 tablet by mouth every six hours as needed for pain Acetaminophen-Codeine 300-30 mg tablet Discontinued 1 TAB PO Every 6 hours as needed for pain 24 09August 01, 2023 12:00am August 11, 2023 10:44amazelastine hydrochloride 0.206 mg/actuat metered dose nasal spray (4 sources)Histamine-1 Receptor AntagonistStart: 03-25-2024 End: 47-23-4189qokp 1 spray(s) nasal route once dailyAzelastine (Astepro Allergy) 205.5 mcg (0.15 %) spray,non-aerosol Discontinued 2 SPRAY INTRANASAL Da latoya April 22, 2024 12:38pm February 12, 2025 10:25am administer into each nostrilciprofloxacin 3 mg/ml ophthalmic solution (5 sources)Quinolone AntimicrobialStart: 06-11-2024 End: 97-91-5362Hhngtiotlfcmi Hcl 0.3 % drops Discontinued 0 OPHTHALMIC .COMPLEX June 11, 2024 1:00am February 12, 2025 10:26am put 1-2 drps in affected eye(s) every 2hr up to 8 times/day x2days; then 4 times/day x5days Eye-Both doxycycline monohydrate 100 mg oral tablet (14 sources)Tetracycline-class DrugStart: 07-22-2024 End: 63-40-2489dkrk 1 tablet by mouth twice dailyDoxycycline Monohydrate 100 mg tablet Discontinued 100 MG PO Twice daily 18 11July 22, 2024 12:00am February 12, 2025 10:26amStart: 03-16-2024 End: 47-12-3809yzma 1 capsule by mouth twice dailyDoxycycline Monohydrate [...] release oral tablet (20 sources)SulfonylureaStart: 01-09-2024 End: 98-30-7401yfuq 1 tablet by mouth once dailyGlipizide Discontinued 0 .ROUTE .COMPLEX January 09, 2024 1:14pm February 20, 2024 11:11am TAKE 1 TABLET BY MOUTH EVERY DAYStart: 29-36-1712wcua 1 tablet by mouth once dailyGlipizide Active 0 .ROUTE .COMPLEX January 09, 2024 1:14pm TAKE 1 TABLET BY MOUTH EVERY DAYStart: 10-03-2023 End: 90-45-8288eayi 1 tablet by mouth once dailyGlipizide 5 mg tablet extended release 24hr Discontinued 0 .ROUTE .COMPLEX January 09, 2024 1:14pm February 20, 2024 11:11am TAKE 1 TABLET BY MOUTH EVERY DAYStart: 10-03-2023 End: 90-01-2260blns 1 tablet by mouth once dailyGlipizide 5 mg tablet extended release 24hr Discontinued 5 MG PO Daily October 25, 2023 9:49pm January 09, 2024 1:14pmibuprofen 600 mg oral tablet (20 sources)Nonsteroidal Anti-inflammatory DrugStart: 08-29-2023 End: 64-08-8513ijat 4 tablets by mouth every twenty-four hours for painIbuprofen 600 mg tablet Discontinued 600 MG PO EVERY 4-6 HOURS as needed for pain 24 09August 29, 2023 12:00am November 20, 2023 8:07am do not exceed 4 doses in a 24 hour periodKetorolac (15 sources)Nonsteroidal Anti-inflammatory Drug, Cyclooxygenase InhibitorStart: 54-59-9176Mhhpcls per 15 mg Aug, 60 mglevoFLOXacin 500 mg oral tablet (5 sources)Quinolone Antimicrobialtake 1 tablet by mouth every twenty-four hours levoFLOXacin 500 MG 1 tablet Orally Once a day Not-TakingmetroNIDAZOLE 500 mg oral tablet (5 sources)Nitroimidazole AntimicrobialStart: 00-49-6093xzvj 1 tablet by mouth every twelve hoursmetroNIDAZOLE 500 MG 1 tablet Orally Twice a day for 7 day(s) Jun, Not-Takingmometasone furoate 1 mg/ml topical cream (17 sources)CorticosteroidStart: 11-03-2023 End: 97-75-2458Ghhnptteue 0.1 % cream Discontinued 1 APPLIC TOPICAL Daily November 03, 2023 12:00am December 21, 2023 9:58am Apply to radiation site, once a day, AFTER radiation treatments.rosuvastatin calcium 20 mg oral tablet (20 sources)HMG-CoA Reductase InhibitorStart: 10-31-2023 End: 07-53-6154wkzk 1 tablet by mouth once daily in the eveningRosuvastatin 20 mg tablet Discontinued 0 .ROUTE .COMPLEX 90 February 06, 2024 8:28am February 03, 2025 8:25am TAKE 1 TABLET BY MOUTH EVERY EVENINGStart: 02-27-2023 End: 29-56-1826qsbm 1 tablet by mouth in the morningrosuvastatin (Crestor) 20 MG tablet Take 20 mg by mouth in the morning. 02/27/2023 Activesulfamethoxazole 800 mg / trimethoprim 160 mg oral tablet (8 sources)Dihydrofolate Reductase Inhibitor Antibacterial, Sulfonamide AntimicrobialStart: 05-17-2024 End: 38-87-4422icdw 1 tablet by mouth twice dailySulfamethoxazole-Trimethoprim 800-160 mg tablet Discontinued 1 TAB PO Twice daily May 17, 2024 1:00am August 14, 2024 11:30amtamoxifen 20 mg oral tablet (16 sources)Estrogen Agonist/AntagonistStart: 12-21-2023 End: 91-55-3735xcim 1 tablet by mouth once dailyTamoxifen 20 mg tablet Discontinued 20 MG PO Daily December 21, 2023 12:00am January 03, 2024 1: 59pmtraZODone hydrochloride 50 mg oral tablet (20 sources)Serotonin Reuptake InhibitorStart: 11-20-2023 End: 48-96-5665Slbsmjnaq 50 mg tablet Discontinued 25 MG PO Bedtime November 20, 2023 12:00am March 16, 2024 10:16amStart: 76-54-9203ppew 25 mg by mouth at bedtimeTrazodone Active 25 MG PO Bedtime November 20, 2023 12:00amStart: 88-99-1312vewSQCfqs (Desyrel) 50 MG tablet TAKE 1/2 TABLET BY MOUTH AT NIGHT FOR SLEEP 08/15/2023 ActiveStart: 07-10-2023 End: 54-53-3509uinr 1 tablet by mouth once dailyTrazodone 50 mg tablet Discontinued 50 MG PO Daily July 10, 2023 1:00am July 11, 2023 3:36pmtake 1 tablet by mouth every twenty-four hourstraZODone HCl 50 MG 1 tablet once a day Unromq41 hr venlafaxine 37.5 mg extended release oral capsule (16 sources)Serotonin and Norepinephrine Reuptake InhibitorStart: 12-21-2023 End: 64-78-2045enck 1 capsule by mouth once dailyVenlafaxine (Effexor [...] of unspecified site of left female breast]Onset: 41-12-2040Exfhrfs Comment on above:leftChronic kidney disease (20 sources)Chronic kidney disease stage 3; Translations: [Chronic kidney disease, stage 3 unspecified]Onset: 541565-53-5461XqlqmnlMapcdur obstructive pulmonary disease and bronchiectasis (2 sources)Bronchitis, not specified as acute or chronicEpisodicComplications of surgical procedures or medical care (20 sources)Postoperative hematoma of breast; Translations: [Hematoma of breast following procedure]93-77-0886NlknffkvRddcnyva mellitus with complications (20 sources)Hyperglycemia due to type 2 diabetes mellitus; Translations: [Type 2 diabetes mellitus with hyperglycemia]Onset: 299009-80-9385Dunueqn Disorders of lipid metabolism (20 sources)Hyperlipidemia, unspecified; Translations: [Pure hyperglyceridemia] Onset: 39-08-2801FlrftcaYnbzwavyjk disorders (20 sources)Gastro-esophageal reflux disease without esophagitis; Translations: [Gastroesophageal reflux disease]Onset: 252074-13-3112GqiwrqsWunkkjsfqxkik symptoms and ill-defined conditions (8 sources)Dysuria; Translations: [Finding of frequency of urination]Onset: 04-21-2022 Resolved: 24-75-7991IgkqqswmRhcdzqcxyiqlr and screening for infectious disease (2 sources)Encounter for screening for human papillomavirus (HPV); Translations: [Encounter for screening for infections with a predominantly sexual mode of transmission]Onset: 65-49-0709OakgsgmvHlhsmmzqaqok; infection of eye (except that caused by tuberculosis or sexually transmitteddisease) (8 sources)Bacterial conjunctivitis; Translations: [Unspecified conjunctivitis] 96-78-9849GocqoaowWpkmzaiger disorders (18 sources)Atrophy of vagina; Translations: [Postmenopausal atrophic vaginitis] Onset: 74-99-3739UexlagyKqxn disorders (7 sources)Bipolar disorder, unspecified; Translations: [Bipolar disorder]Onset: 31-17-8512UyhezhvGfzbxxs (6 sources)Candidiasis of skin and nail; Translations: [Candidiasis]Onset: 06-08-2014 Resolved: 72-54-9553HdoifywjVjpuf aftercare (14 sources)Long-term current use of drug therapy; Translations: [Other fpc (current) drug therapy]EpisodicOther aftercare (3 sources)Other mask designer (current) drug therapy; Translations: [OTH FPC 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 THERAPY]Onset: 33-42-1122EcdsraspImovy bone disease and musculoskeletal deformities (20 sources)Other specified disorders of bone density and structure, unspecified site; Translations: [Disorder of bone and cartilage, unspecified]Onset: 661718-34-4699KzbcwdniAjsyo bone disease and musculoskeletal deformities (1 source)Bone density finding; Translations: [Other specified disorders of bone density and structure, unspecified site]EpisodicOther circulatory disease (1 source)Elevated blood-pressure reading without [...] in left upper arm]EpisodicOther connective tissue disease (6 sources)Pain in right arm; Translations: [Pain in limb]73-88-1450Bouudppp Other connective tissue disease (4 sources)Pain of toe of right foot; Translations: [Pain in right toe(s)] 03-31-0321MgrrqedfMmxlh ear and sense organ disorders (1 source)Tinnitus of right ear; Translations: [Tinnitus, right ear]04-10-2024 EpisodicOther female genital disorders (1 source)Other specified conditions associated with female genital organs and menstrual cycle; Translations:[OTH SPEC COND FE GEN ORG MENST CYCL]Onset: 89-04-2489VaklhknjJtbgt female genital disorders (1 source)Other specified noninflammatory [...] index (BMI) 28.0-28.9, adult; Translations: [BMI 28.0-28.9,adult]EpisodicOther skin disorders (4 sources)Asteatosis cutis; Translations: [Xerosis cutis]00-93-9095Zrhhcaft Other skin disorders (4 sources)Ingrowing nail; Translations: [Ingrowing nail]94-63-0975GowbhotmQmubv upper respiratory disease (20 sources)Allergic rhinitis; Translations: [Allergic rhinitis, unspecified] Onset: 075400-55-8576EnfkkhaBzvgk upper respiratory disease (3 sources)Allergic rhinitis, unspecified; Translations: [Allergic rhinitis, cause unspecified]70-70-9053HcrdmhgClzrd upper respiratory infections (1 source)Chronic sinusitis; Translations: [Chronic sinusitis, unspecified] ChronicOther upper respiratory infections (20 sources)Acute maxillary sinusitis; Translations: [Acute recurrent maxillary sinusitis]Onset: 655159-79-2717BwmrhlfcUafsjeud codes; unclassified (1 source)Family history of malignant neoplasm of digestive organs; Translations: [FAM HX MALIG NEOPLASM DIGESTIV ORGN]Onset: 87-89-6344Lfmiwhnl Residual codes; unclassified (1 source)Asymptomatic menopausal state; Translations: [ASYMPTOMATIC MENOPAUSAL STATE]Onset: 49-76-6342XkabhsdcWkkwjiom codes; unclassified (1 source)Immunization not carried out because of patient refusal; Translations: [Immunization not carried out because of patient refusal]EpisodicResidual codes; unclassified (1 source)Estrogen receptor positive status [ER+]; Translations: [Estrogen receptor positive status (ER+)]Onset: 88-57-0466JiyltkupHwptohsb codes; unclassified (8 sources)Pain, unspecified; Translations: [Generalized pain]09-31-8179Xarsyksy Screening and history of mental health and substance abuse codes (1 source)Encounter for screening for depression; Translations: [Encounter for screening for depression]EpisodicThyroid disorders (20 sources)Hypothyroidism; Translations: [Hypothyroidism, unspecified]Chronic Urinary tract infections (1 source)Urinary tract infectious disease; Translations: [Urinary tract infection, site not specified]Episodic Past or Other Problems Problem ClassificationProblemDateDocumented DateEpisodic/ChronicAbdominal pain (1 source)Right upper quadrant pain; Translations: [Right upper quadrant pain] Resolved: 21-47-5071QaamivukXhokdmyti infection; unspecified site (1 source)Other bacterial infections of unspecified site; Translations: [Other bacterial infections of unspecified site] Resolved: 87-08-6514GakiisayEfjpigqg mellitus without complication (20 sources)Impaired fasting glycemia; Translations: [Impaired fasting glucose] Onset: 23-58-5883MuzffykpTqnfyuuqwmez diseases of female pelvic organs (2 sources)Acute vaginitis; Translations: [Acute vaginitis]Onset: 06-18-2014 Resolved: 44-20-4457ScixnpnzAiqymluwttiq breast conditions (20 sources)Mammographic calcification found on diagnostic imaging of breast; Translations: [Other specified disorders of breast]Onset: 08-05-2022 Resolved: 735844-66-8692PnyvbijtMyvbcgddrlb chest pain (1 source)Chest pain, unspecified; Translations: [Chest pain, unspecified]Onset: 43-84-2139CnxaszgmRuocf bone disease and musculoskeletal deformities (20 sources)Osteopenia; Translations: [Other specified disorders of bone density and structure, unspecified site]Onset: 802959-20-6888UotpuemiNhnel connective tissue disease (20 sources)Pain in right arm; Translations: [Pain in right arm]Onset: 204060-29-8344SeejzderRmxrv connective tissue disease (1 source)Pain of toes of bilateral feet; Translations: [Pain in right toe(s)] 28-42-2926KxxjxekjTfmqz ear and sense organ disorders (13 sources)Sudden idiopathic hearing loss; Translations: [Sudden idiopathic hearing loss, right ear]Onset: 359686-05-0825HadgslvhJawpp gastrointestinal disorders (1 source)Abdominal distension (gaseous); Translations: [Abdominal distension (gaseous)] Resolved: 10-88-7487AydjqqljNcpos lower respiratory disease (1 source)Shortness of breath; Translations: [Shortness of breath]Onset: 01-47-7500CaadfqdgSrptk non-traumatic joint disorders (1 source)Arthralgia of the lower leg; Translations: [Pain in unspecified knee] Onset: 77-82-2762MxznlirjUrccv nutritional; endocrine; and metabolic disorders (1 source)Obesity, unspecified; Translations: [Obesity, unspecified] Resolved: 96-56-7856BhrtqycNggpn nutritional; endocrine; and metabolic disorders (1 source)Body mass index 30+ - obesity; Translations: [Body mass index (BMI) 30.0-30.9, adult]Onset: 06-04-2019 Resolved: 68-41-9066CjxicjmVqgtp screening for suspected conditions (not mental disorders or infectious disease) (20 sources)Other abnormal and inconclusive findings on diagnostic imaging of breast; Translations: [Encounter for screening mammogram for malignant neoplasm of breast]Onset: 07-18-2022 Resolved: 17-73-5116KoelmwapFxgazq media and related conditions (20 sources)Acute right otitis media; Translations: [Otitis media, unspecified, right ear]Onset: 682596-17-3949TejerrgnUwekmrev codes; unclassified (1 source)Postmenopausal state; Translations: [Asymptomatic menopausal state] Onset: 44-12-3445ZvadxubkFhfhhcybcmk; intervertebral disc disorders; other back problems (1 source)Backache; Translations: [Dorsalgia, unspecified]Onset: 03-07-2018 Episodic Results Test NameValueInterpretationReference RangeFacilityBasophils Auto (Bld) [#/Vol] Ordered By: Christine Velazquez on 73-78-6174Hihmhkttx (Bld) [#/Vol]0.0 10 3/uL 0.0-0.1FKettering Health DaytonBasophils/100 WBC Auto (Bld)Ordered By: Christine Velazquez on 14-79-2083Tdcyirpxe/100 WBC (Bld)0.4 %0.2-2.0[facility] HospitalEosinophils/100 WBC Auto (Bld)Ordered By: Christine Velazquez on 92-21-1191Uqplrnqyvzl/100 WBC (Bld)0.0 %Low0.9-7.0[facility] HospitalErythrocyte distribution width Auto (RBC) [Ratio]Ordered By: Christine Mtz on 48-78-8688Qnvwfggvemi distribution width (RBC) [Ratio]14.5 %11.0-15.0 [facility] HospitalGlobulin Calc (S) [Mass/Vol]Ordered By: Christine Mtz on 33-11-3438Rlnxudyd (S) [Mass/Vol]3.9 g/dLMercer County Community HospitalGlomerular filtration rate (GFR) estimation in non- AmericanOrdered By: Christine Velazquez on 14-26-1689JRS/1.73 sq M.predicted among non-blacks MDRD (S/P/Bld) [Vol rate/Area]mL/min/{1.73_m2}>=60 mL/min/1.73m 2FKettering Health DaytonHematocrit Auto (Bld) [Volume fraction]Ordered By: Christine Velazquez on 44-47-2281Lhuuwyqzwc (Bld) [Volume fraction]39.9 %36.0-48.0[facility] HospitalHemoglobin [Mass/volume] in BloodOrdered By: Christine Velazquez on 96-52-6128Jcxrjbtdnn (Bld) [Mass/Vol]12.8 g/dL12.0-16.0[facility] HospitalLaboratory - Chemistry and Chemistry - challengeOrdered By: Christine Velazquez on 83-27-2264Tcunhuh [Mass/Vol]3.8 g/dL3.4-5.0[facility] HospitalALP [Catalytic activity/Vol]88 U/M76-963EgpilwvavMercer County Community HospitalALT [Catalytic activity/Vol]32 U/K90-42AgvjbgsgrMercer County Community Hospital AST [Catalytic activity/Vol]27 U/E03-36RstratqqsMercer County Community Hospital Bilirubin [Mass/Vol]0.3 mg/dL0.2-1.0[facility] HospitalCalcium [Mass/Vol]9.5 mg/dL8.5-10.1FKettering Health DaytonChloride [Moles/Vol] 107 mmol/W38-821GfzppgjyzMercer County Community HospitalCO2 [Moles/Vol]23.8 mmol/L 21.0-32.0[facility] HospitalCreatinine [Mass/Vol]0.79 mg/dL 0.55-1.02[facility] HospitalGFR/1.73 sq M.predicted MDRD (S/P/Bld) [Vol rate/Area]mL/min/{1.73_m2}>=60 mL/min/1.73m 2FKettering Health DaytonGlucose [Mass/Vol]136 mg/xVZxfi95-405NurmpzgpfMercer County Community Hospital Potassium [Moles/Vol]3.8 mmol/L3.5-5.1FK[facility] Health DaytonProtein [Mass/Vol]7.7 g/dL6.4-8.2FUC Healthodium [Moles/Vol]145 mmol/V392-675HwcffzsljMercer County Community HospitalUrea nitrogen [Mass/Vol]10.0 mg/dL 7.0-18.0[facility] HospitalUrea nitrogen/Creatinine [Mass ratio] 12.7 mg/mgMercer County Community HospitalLaboratory - Hematology and Cell countsOrdered By: Christine Velazquez on 05-94-8906Zpequbyg granulocytes/100 WBC (Bld)0.2 %0.0-0.5FKettering Health DaytonLeukocytes [#/volume] corrected for nucleated erythrocytes in Blood by Automated counOrdered By: Christine Velazquez on 33-37-3311IKR corrected for nucl RBC Auto (Bld) [#/Vol]5.0 10 3/uL 4.0-11.0[facility] HospitalLymphocytes Auto (Bld) [#/Vol]Ordered By: Christine Velazquez on 38-52-9344Jrmtdtoftnh (Bld) [#/Vol]1.0 10 3/uLLow1.2-3.8 [facility] HospitalLymphocytes/100 WBC Auto (Bld)Ordered By: Christine Velazquez on 78-89-8651Bpkwcsgxzzt/100 WBC (Bld)20.0 %Low20.5-60.0[facility] HospitalMCH Auto (RBC) [Entitic mass]Ordered By: Christine Velazquez on 21-83-0916LEH (RBC) [Entitic mass]28.4 pg26.7-34.0[facility] HospitalMCHC Auto (RBC) [Mass/Vol]Ordered By: Christine Velazquez on 16-53-6061DDEC (RBC) [Mass/Vol]32.1 g/dL29.9-35.2FKettering Health DaytonMCV Auto (RBC) [Entitic vol]Ordered By: Christine Velazquez on 42-09-8308VIV (RBC) [Entitic vol]88.7 fL81.0-99.0[facility] HospitalMonocytes Auto (Bld) [#/Vol]Ordered By: Christine Velazquez on 43-79-6652Nbaeeesjy (Bld) [#/Vol]0.4 10 3/uL0.3-0.8[facility] HospitalMonocytes/100 WBC Auto (Bld)Ordered By: Christine Velazquez on 32-70-7554Pvfosgpmj/100 WBC (Bld)7.6 %1.7-12.0[facility] HospitalNeutrophils Auto (Bld) [#/Vol]Ordered By: Christine Velazquez on 54-52-2167Wishgfxvkyf (Bld) [#/Vol]3.6 10 3/uL1.4-6.5FKettering Health DaytonNeutrophils/100 WBC Auto (Bld)Ordered By: Christine Velazquez on 89-35-9348Bhahagcmdjl/100 WBC (Bld)71.8 %43.0-75.0[facility] HospitalNo Panel InformationOrdered By: Christine Velazquez on 49-94-5387Nzwkgnvbgnw # (Auto)0.0 10 3/uL0.0-0.7FKettering Health DaytonImmature Granulocyte # (Auto)0.01 10 3/uL0.00-0.03[facility] HospitalPlatelet mean volume Auto (Bld) [Entitic vol]Ordered By: Christine Velazquez on 04-45-4040Aixdjzxq mean volume (Bld) [Entitic vol]9.9 fL9.5-13.5FK[facility] Platelets Auto (Bld) [#/Vol]Ordered By: Christine Velazquez on 61-98-6163Aruutegwa (Bld) [#/Vol]106 10 3/aCGzk408-261LwstuurgjMercer County Community HospitalRBC Auto (Bld) [#/Vol]Ordered By: Christine Velazquez on 22-44-4710CAC (Bld) [#/Vol]4.50 10 6/uL4.20-5.40[facility] Hospitalerum or plasma albumin/globulin mass ratioOrdered By: Christine Velazquez on 17-50-5586Dygqyqb/Globulin [Mass ratio] 1.0 {ratio}[facility] Hospitalerum or plasma anion gap determinationOrdered By: Christine Velazquez on 51-90-8095Eblas gap [Moles/Vol]18.0 mmol/LFKettering Health DaytonCholesterol in LDL Calc [Mass/Vol]Ordered By: Susan Ayala on 26-70-3675Tgxkogbxelf in LDL [Mass/Vol]41.0 mg/dLFirelands Regional Medical CenterComment on above:<100 mg/dl QBOUAYM953-204 mg/dl NEAR OR ABOVE PUUOMGB676-770 mg/dl BORDERLINE QSWT021-171 mg/dl HIGH>190 mg/dl VERY HIGH Cholesterol in VLDL Calc [Mass/Vol]Ordered By: Susan Ayala on 02-03-2025 Cholesterol in VLDL [Mass/Vol]49.4 mg/dLMercer County Community Hospital Globulin Calc (S) [Mass/Vol]Ordered By: Susan Ayala on 45-77-5021Uzozvyqj (S) [Mass/Vol]3.8 g/dLMercer County Community HospitalGlomerular filtration rate (GFR) estimation in non- AmericanOrdered By: Susan Ayala on 02-03-2025 GFR/1.73 sq M.predicted among non-blacks MDRD (S/P/Bld) [Vol rate/Area] mL/min/{1.73_m2}>=60 mL/min/1.73m 2FKettering Health DaytonGlucose mean value [Mass/volume] in Blood Estimated from glycated hemoglobinOrdered By: Susan Ayala on 12-12-1700Vyobahi glucose Estimated from glycated hemoglobin (Bld) [Mass/Vol]140 mg/dLMercer County Community HospitalHemoglobin A1c percentageOrdered By: Susan Ayala on 55-09-1854KyV4i (Bld) [Mass fraction]6.5 % High4.5-6.2FKettering Health DaytonComment on above:ADA RECOMMENDED LIMIT 4.0 - 6.0ADA THERAPEUTIC TARGET < 7.0ACTION SUGGESTED> 7.0Laboratory - Chemistry and Chemistry - challengeOrdered By: Susan Ayala on 97-31-2481Hmfgalk [Mass/Vol]4.1 g/dL3.4-5.0[facility] HospitalALP [Catalytic activity/Vol]100 U/O88-501FlfgjehaoMercer County Community HospitalALT [Catalytic activity/Vol]38 U/F47-41StssqsjjmMercer County Community HospitalAST [Catalytic activity/Vol]24 U/P13-08MhaxanclqMercer County Community HospitalBilirubin [Mass/Vol]0.3 mg/dL0.2-1.0[facility] HospitalCalcium [Mass/Vol]9.7 mg/dL 8.5-10.1FKet[facility] Health DaytonChloride [Moles/Vol]106 mmol/L98-107 [facility] HospitalCholesterol [Mass/Vol]133 mg/dL<=200Mer[facility] HospitalCholesterol in HDL [Mass/Vol]43 mg/cC09-64OgytpxhekMercer County Community HospitalComment on above:> or =60 mg/dl - LOW CARDIOVASCULAR RISK<40 mg/dl - HIGH CARDIOVASCULAR RISKCO2 [Moles/Vol]25.9 mmol/L21.0-32.0 [facility] HospitalCreatinine [Mass/Vol]0.80 mg/dL0.55-1.02 [facility] HospitalFree T4 [Mass/Vol]0.89 ng/dL0.76-1.46[facility] HospitalGFR/1.73 sq M.predicted MDRD (S/P/Bld) [Vol rate/Area] mL/min/{1.73_m2}>=60 mL/min/1.73m 2FKettering Health DaytonGlucose [Mass/Vol]134 mg/qQPfmu68-127UalgstdrnMercer County Community HospitalPotassium [Moles/Vol]4.0 mmol/L3.5-5.1FKettering Health DaytonProtein [Mass/Vol] 7.9 g/dL6.4-8.2FUC Healthodium [Moles/Vol]143 mmol/L 136-145Mer[facility] HospitalTriglyceride [Mass/Vol]247 mg/dLHigh <=150Mer[facility] HospitalTSH Qn3.128 m[IU]/L0.358-3.740Mer[facility] HospitalUrea nitrogen [Mass/Vol]10.0 mg/dL7.0-18.0[facility] HospitalUrea nitrogen/Creatinine [Mass ratio]12.5 mg/mgMercer County Community HospitalMicroalbumin [Mass/volume] in UrineOrdered By: Susan Ayala on 58-75-8795Gxxvpag DL <= 20 mg/L (U) [Mass/Vol]mg/dL<=30.0[facility] HospitalNo Panel InformationOrdered By: Susan Ayala on 34-00-6791Nsrfn Random Jhnojcocrd75.36 mg/dLLow20.00-300.00[facility] Hospitalerum or plasma albumin/globulin mass ratioOrdered By: Susan Ayala on 04-10-6322Bckgcfq/Globulin [Mass ratio]1.1 {ratio}[facility] Hospitalerum or plasma anion gap determinationOrdered By: Susan Ayala on 07-44-1983Zcngf gap [Moles/Vol]15.1 mmol/LFUC Healtherum or plasma total cholesterol/high density lipoprotein (HDL) cholesterol mass rat Ordered By: Susan Ayala on 79-29-4282Zycuyvufxcr.total/Cholesterol in HDL [Mass ratio]3.1 {ratio}[facility] HospitalComment on above:3.3 - 4.4 LOW RISK4.4 - 7.1 AVERAGE RISK7.1 - 11.0 MODERATE RISK>11.0 HIGH RISK Microalbumin [Mass/volume] in Urineon 96-89-7485Fafkovr DL <= 20 mg/L (U) [Mass/Vol]Microalbumin [Mass/volume] in Urine<=30.0[facility] HospitalNo Panel Informationon 33-78-6896Ttexz Random Uutvboturb29.19 mg/dLLow 20.00-300.00[facility] HospitalInfluenza virus B Ag [Presence] in Upper respiratory specimen by Rapid immunoassayon 98-93-1546VOXZK Ag IA.rapid Ql (Nph)Influenza virus B Ag [Presence] in Upper respiratory specimen by Rapid immunoassayMercer County Community HospitalNo Panel Informationon 07-18-2024 Influenza Type A (Rapid)NegativeMercer County Community HospitalPO SARS CoV-2 AntigenNegativeMercer County Community HospitalEstimated glomerular filtration rate (GFR) non- Americanon 03-26-2295OQH/1.73 sq M.predicted among non- blacks MDRD (S/P/Bld) [Vol rate/Area]Estimated glomerular filtration rate (GFR) non- AmericanLow>=60 mL/min/1.73m 2FK[facility] Glucose mean value [Mass/volume] in Blood Estimated from glycated hemoglobinon 18-33-5826Nskshzq glucose Estimated from glycated hemoglobin (Bld) [Mass/Vol] Glucose mean value [Mass/volume] in Blood Estimated from glycated hemoglobin [facility] HospitalHemoglobin A1c percentageon 77-77-8261TkL1t (Bld) [Mass fraction]Hemoglobin A1c percentageHigh4.5-6.2FK[facility]tering Health DaytonComment on above:ADA RECOMMENDED LIMIT 4.0 - 6.0ADA THERAPEUTIC TARGET < 7.0ACTION SUGGESTED> 7.0Laboratory - Chemistry and Chemistry - challengeon 15-83-8972Rsztgwfbhk [Mass/Vol]1.09 mg/dLHigh0.55-1.02[facility] HospitalGFR/1.73 sq M.predicted MDRD (S/P/Bld) [Vol rate/Area] mL/min/{1.73_m2}>=60 mL/min/1.73m 2FKettering Health DaytonTSH Qn0.313 m[IU]/LLow0.358-3.740Mer[facility] HospitalNo Panel Informationon 56-62-4377Emrtcyx Level0.8 mmol/L0.5-1.2FKettering Health DaytonComment on above:A concentration of 0.5-0.8 mmol/L is advised for long-termuse; concentrations of up to 1.2 mmol/L may be necessaryduring acute treatment. Detection Limit = 0.1 <0.1 indicates None DetectedPerformed at: [facility] [id number] Director: Wojciech Farah PhD, Phone: [phone] Auto (Bld) [#/Vol]on 33-87-6220Cyjuizgou (Bld) [#/Vol]Automated basophil count0.0-0.1FK[facility] Basophils/100 WBC Auto (Bld)on 72-63-7792Mxltsfsbo/100 WBC (Bld)Automated basophil %0.2-2.0[facility] HospitalEosinophils/100 WBC Auto (Bld) on 50-20-9870Fssopwubugu/100 WBC (Bld)Automated eosinophil %0.9-7.0[facility] HospitalErythrocyte distribution width Auto (RBC) [Ratio]on 15-57-0631Dkipcezooxh distribution width (RBC) [Ratio]Erythrocyte distribution width [Ratio] by Automated count11.0-15.0[facility] Estimated glomerular filtration rate (GFR) non- Americanon 05-15-2024 GFR/1.73 sq M.predicted among non-blacks MDRD (S/P/Bld) [Vol rate/Area]Estimated glomerular filtration rate (GFR) non- AmericanLow>=60 mL/min/1.73m 2 [facility] HospitalGlobulin Calc (S) [Mass/Vol]on 05-15-2024 Globulin (S) [Mass/Vol]Serum globulin measurement by calculation (mass/volume) [facility] HospitalHematocrit Auto (Bld) [Volume fraction]on 48-96-0596Cvnzjjlxer (Bld) [Volume fraction]Hematocrit [Volume Fraction] of Blood by Automated count36.0-48.0[facility] HospitalHemoglobin [Mass/volume] in Bloodon 94-49-4441Worcgaztwv (Bld) [Mass/Vol]Hemoglobin [Mass/volume] in Blood12.0-16.0[facility] HospitalLaboratory - Chemistry and Chemistry - challengeon 94-13-1350Ufzeail [Mass/Vol]4.0 g/dL 3.4-5.0[facility] HospitalALP [Catalytic activity/Vol]105 U/L 46-116Mer[facility] HospitalALT [Catalytic activity/Vol]38 U/L14-59 [facility] HospitalAST [Catalytic activity/Vol]27 U/L15-37 [facility] HospitalBilirubin [Mass/Vol]0.5 mg/dL0.2-1.0[facility] HospitalCalcium [Mass/Vol]10.3 mg/dLHigh8.5-10.1FK[facility] Health DaytonChloride [Moles/Vol]106 mmol/B29-257EyrousuwuMercer County Community HospitalCO2 [Moles/Vol]26.9 mmol/L21.0-32.0[facility] HospitalCreatinine [Mass/Vol]1.06 mg/dLHigh0.55-1.02[facility] HospitalGFR/1.73 sq M.predicted MDRD (S/P/Bld) [Vol rate/Area]mL/min/{1.73_m2}>=60 mL/min/1.73m 2FK[facility] Health DaytonGlucose [Mass/Vol]174 mg/dLHigh 74-106Mer[facility] Community HospitalLDH [Catalytic activity/Vol]154 U/L81-234 [facility] HospitalPotassium [Moles/Vol]4.3 mmol/L3.5-5.1FK[facility] DaytonProtein [Mass/Vol]7.4 g/dL6.4-8.2FUC Healthodium [Moles/Vol]145 mmol/E294-843CwartohweMercer County Community HospitalUrea nitrogen [Mass/Vol]12.0 mg/dL7.0-18.0[facility] HospitalUrea nitrogen/Creatinine [Mass ratio]11.3 mg/mgMercer County Community HospitalLaboratory - Hematology and Cell countson 98-35-8873Wlzcmfhx granulocytes/100 WBC (Bld)0.5 %0.0-0.5FK[facility] Leukocytes [#/volume] corrected for nucleated erythrocytes in Blood by Automated counon 40-77-6361WAY corrected for nucl RBC Auto (Bld) [#/Vol]Leukocytes [#/volume] corrected for nucleated erythrocytes in Blood by Automated coun 4.0-11.0[facility] HospitalLymphocytes Auto (Bld) [#/Vol]on 70-26-7442Prgztxeakcv (Bld) [#/Vol]Lymphocytes [#/volume] in Blood by Automated count1.2-3.8[facility] HospitalLymphocytes/100 WBC Auto (Bld)on 56-60-2101Qexychgjmvl/100 WBC (Bld)Lymphocytes/100 leukocytes in Blood by Automated count20.5-60.0[facility] HospitalMCH Auto (RBC) [Entitic mass]on 25-02-1973MDG (RBC) [Entitic mass]MCH [Entitic mass] by Automated count 26.7-34.0[facility] HospitalMCHC Auto (RBC) [Mass/Vol]on 04-18-3542OFVA (RBC) [Mass/Vol]MCHC [Mass/volume] by Automated count29.9-35.2 [facility] HospitalMCV Auto (RBC) [Entitic vol]on 79-30-0206DOV (RBC) [Entitic vol]MCV [Entitic volume] by Automated count81.0-99.0[facility] HospitalMonocytes Auto (Bld) [#/Vol]on 16-20-7256Updgaihld (Bld) [#/Vol]Automated blood monocyte count0.3-0.8[facility] Monocytes/100 WBC Auto (Bld)on 48-66-2833Nhnoqkhwz/100 WBC (Bld)Automated monocyte %1.7-12.0[facility] HospitalNeutrophils Auto (Bld) [#/Vol]on 75-14-1427Aevkbglmiiz (Bld) [#/Vol]Neutrophils [#/volume] in Blood by Automated count1.4-6.5FK[facility]tering Health DaytonNeutrophils/100 WBC Auto (Bld)on 71-21-5742Bckzkfszgyy/100 WBC (Bld)Automated neutrophil %43.0-75.0 [facility] HospitalNo Panel Informationon 25-32-4445Aoygekgsylb # (Auto)0.2 10 3/uL0.0-0.7FKettering Health DaytonImmature Granulocyte # (Auto)0.03 10 3/uL0.00-0.03[facility] HospitalMiscellaneous Test COMMENT.[facility] HospitalComment on above:Test Ordered: [id number] Platelet Antibody ProfileHLA Class 1 Antibody Negative BN Reference Range: Nega tiveIIb/IIIa Antibody Negative BN Reference Range: NegativeIb/IX Antibody Negative BN Reference Range: NegativeIa/IIa Antibody Negative BN Reference Range: NegativeGlycoprotein IV Antibody Negative BN Reference Range: NegativePerformed at: BN - [facility] [id number] Director: Carlos Alberto Goss MD, Phone: [phone] at: - [facility] [address] [id number] Director: Wojciech Farah PhD, Phone: [phone] mean volume Auto (Bld) [Entitic vol]on 85-33-3063Qeogzbea mean volume (Bld) [Entitic vol]Platelet mean volume [Entitic volume] in Blood by Automated count9.5-13.5FK[facility] Dayton Platelets Auto (Bld) [#/Vol]on 60-12-1711Dhxbjvlfj (Bld) [#/Vol]Platelets [#/volume] in Blood by Automated khqizOuv660-275VfprndrfvMercer County Community HospitalRBC Auto (Bld) [#/Vol]on 05-24-7965SAT (Bld) [#/Vol]Erythrocytes [#/volume] in Blood by Automated count4.20-5.40[facility] Serum or plasma albumin/globulin mass ratioon 68-22-9671Pukeica/Globulin [Mass ratio]Serum or plasma albumin/globulin mass ratioNewark Hospitalerum or plasma anion gap determinationon 13-61-8484Rdbhv gap [Moles/Vol] Serum or plasma anion gap determinationMercer County Community HospitalAuditory function testson 15-38-3764Xqgdj Ear: Mild sensorineural hearing loss from 250 Hz - 1K Hz rising to normal hearing from 2K Hz - 3K Hz. Mild to moderate sensorineural hearing loss above 3K Hz Left Ear: Mild sensorineural hearing loss at 8K Hz only [facility] HealthcareNOPR HealthcareCOVID Cepheidon 18-92-8125FALZ-CoV-2 (COVID-19) RNA HIMANSHU+probe Ql (Unsp spec)COVID CepheidMercer County Community Hospital Laboratory - Microbiology and Antimicrobial susceptibilityon 03-16-2024 SARS-CoV-2 (COVID-19) RNA HIMANSHU+probe Ql (Unsp spec)NegativeMercer County Community HospitalNo Panel InformationOrdered By: Valencia Boyd on 03-16-2024 Quick Strep (POC)[facility] HospitalNo Panel Informationon 48-64-8109ANG Influenza A (PCR)NegativeMercer County Community HospitalPO Influenza B (PCR)NegativeMercer County Community HospitalHbA1c HPLC (Bld) [Mass fraction]on 78-93-6661HkA0j (Bld) [Mass fraction]Hemoglobin A1c/Hemoglobin.total in Blood by HPLCMercer County Community HospitalGlobulin Calc (S) [Mass/Vol]on 04-21-0928Ubvkuwsy (S) [Mass/Vol]3.6 g/dLMercer County Community HospitalGlobulin (S) [Mass/Vol]Serum globulin measurement by calculation (mass/volume)[facility] HospitalLaboratory - Chemistry and Chemistry - challengeon 55-70-4215Evzaopj [Mass/Vol]4.0 g/dL3.4-5.0 [facility] HospitalALP [Catalytic activity/Vol]104 U/L46-116 [facility] HospitalALT [Catalytic activity/Vol]37 U/L14-59 [facility] HospitalAST [Catalytic activity/Vol]29 U/L15-37 [facility] HospitalBilirubin [Mass/Vol]0.4 mg/dL0.2-1.0[facility] HospitalBilirubin.direct [Mass/Vol]0.1 mg/dL0.0-0.2FK[facility] DaytonProtein [Mass/Vol]7.6 g/dL6.4-8.2FUC Healtherum or plasma albumin/globulin mass ratioon 02-08-2024 Albumin/Globulin [Mass ratio]1.1 {ratio}[facility] Albumin/Globulin [Mass ratio]Serum or plasma albumin/globulin mass ratio [facility] HospitalBasophils Auto (Bld) [#/Vol]on 12-22-2023 Basophils (Bld) [#/Vol]0.0 10 3/uL0.0-0.1FK[facility] Dayton Basophils/100 WBC Auto (Bld)on 99-89-2122Igsgthaxy/100 WBC (Bld)0.2 %0.2-2.0 [facility] HospitalEosinophils/100 WBC Auto (Bld)on 12-22-2023 Eosinophils/100 WBC (Bld)0.0 %Low0.9-7.0[facility] Erythrocyte distribution width Auto (RBC) [Ratio]on 29-20-8994Iinryehdbjz distribution width (RBC) [Ratio]13.9 %11.0-15.0[facility] Estimated glomerular filtration rate (GFR) non- Americanon 12-22-2023 GFR/1.73 sq M.predicted among non-blacks MDRD (S/P/Bld) [Vol rate/Area]52 mL/min/{1.73_m2}Low>=60[facility] HospitalGlobulin Calc (S) [Mass/Vol]on 73-46-0746Dabsxuaw (S) [Mass/Vol]3.3 g/dLMercer County Community HospitalHematocrit Auto (Bld) [Volume fraction]on 57-20-8409Ykhvpgzsuc (Bld) [Volume fraction]42.6 %36.0-48.0[facility] HospitalHemoglobin [Mass/volume] in Bloodon 88-62-5800Zoirynfxft (Bld) [Mass/Vol]13.1 g/dL12.0-16.0 [facility] HospitalIron binding capacity [Mass/volume] in Serum or Plasmaon 66-07-6698Kyxe binding capacity [Mass/Vol]324.0 ug/dL250.0-450.0 [facility] HospitalIron saturation [Mass Fraction] in Serum or Plasmaon 53-58-9033Jmmh saturation [Mass fraction]18.5 %[facility] HospitalLaboratory - Chemistry and Chemistry - challengeon 12-22-2023 Albumin [Mass/Vol]4.1 g/dL3.4-5.0[facility] HospitalALP [Catalytic activity/Vol]101 U/P40-316IwqcxpvyiMercer County Community HospitalALT [Catalytic activity/Vol]42 U/W53-66VoekpfvrfMercer County Community HospitalAST [Catalytic activity/Vol]35 U/G18-75ViwjuqyiiMercer County Community HospitalBilirubin [Mass/Vol]0.4 mg/dL0.2-1.0[facility] HospitalCalcium [Mass/Vol]10.0 mg/dL 8.5-10.1FKettering Health DaytonChloride [Moles/Vol]107 mmol/L98-107 [facility] HospitalCO2 [Moles/Vol]27.1 mmol/L21.0-32.0[facility] HospitalCobalamin (Vitamin B12) [Mass/Vol]382.0 pg/mL193.0-986.0 [facility] HospitalCreatinine [Mass/Vol]1.07 mg/dLHigh0.55-1.02 [facility] HospitalFerritin [Mass/Vol]312.0 ng/mLHigh8.0-252.0 [facility] HospitalGFR/1.73 sq M.predicted MDRD (S/P/Bld) [Vol rate/Area]mL/min/{1.73_m2}>=60[facility] HospitalGlucose [Mass/Vol]143 mg/fWBzxu16-581EuytwwluwMercer County Community HospitalIron [Mass/Vol] 60.0 ug/dL50.0-170.0[facility] HospitalPotassium [Moles/Vol]5.0 mmol/L3.5-5.1FK[facility]tering Health DaytonProtein [Mass/Vol]7.4 g/dL6.4-8.2 [facility] Hospitalodium [Moles/Vol]143 mmol/E347-729OhzkdnrxlMercer County Community HospitalUrea nitrogen [Mass/Vol]13.0 mg/dL7.0-18.0[facility] HospitalUrea nitrogen/Creatinine [Mass ratio]12.1 mg/mgMercer County Community HospitalLaboratory - Hematology and Cell countson 12-22-2023 Immature granulocytes/100 WBC (Bld)0.2 %0.0-0.5FKettering Health Dayton Leukocytes [#/volume] corrected for nucleated erythrocytes in Blood by Automated counon [id number] corrected for nucl RBC Auto (Bld) [#/Vol]4.2 10 3/uL 4.0-11.0[facility] HospitalLymphocytes Auto (Bld) [#/Vol]on [id number] (Bld) [#/Vol]0.8 10 3/uLLow1.2-3.8[facility] HospitalLymphocytes/100 WBC Auto (Bld)on [id number]/100 WBC (Bld)18.5 %Low20.5-60.0[facility] [facility] HospitalM[facility] Auto (RBC) [Entitic mass]on 68-72-7303ICQ (RBC) [Entitic mass]27.8 pg26.7-34.0[facility] HospitalMCHC Auto (RBC) [Mass/Vol]on 46-86-5706MFCL (RBC) [Mass/Vol]30.8 g/dL29.9-35.2FKettering Health DaytonMCV Auto (RBC) [Entitic vol]on 07-02-3191IGN (RBC) [Entitic vol]90.4 fL81.0-99.0[facility] HospitalMonocytes Auto (Bld) [#/Vol]on 06-69-6044Ledlheuvz (Bld) [#/Vol]0.3 10 3/uL0.3-0.8[facility] HospitalMonocytes/100 WBC Auto (Bld)on 74-32-9266Schkmmhyd/100 WBC (Bld)8.1 %1.7-12.0[facility] Neutrophils Auto (Bld) [#/Vol]on 89-15-7538Hgepvwzpcma (Bld) [#/Vol]3.1 10 3/uL 1.4-6.5FKettering Health DaytonNeutrophils/100 WBC Auto (Bld)on 57-02-1039Tlmyoayfemx/100 WBC (Bld)73.0 %43.0-75.0[facility] HospitalNo Panel Informationon 33-47-9522Mtrourxypbp # (Auto)0.0 10 3/uL0.0-0.7 [facility] HospitalFolate8.60 ng/mL8.60-58.90[facility] HospitalImmature Granulocyte # (Auto)0.01 10 3/uL0.00-0.03[facility] HospitalPlatelet mean volume Auto (Bld) [Entitic vol]on 75-88-5265Bzgbjkkq mean volume (Bld) [Entitic vol]10.1 fL9.5-13.5FKettering Health DaytonPlatelets Auto (Bld) [#/Vol]on 82-52-3288Jveqrrjif (Bld) [#/Vol]115 10 3/qCDus333-697BjfpwmdxwMercer County Community HospitalRBC Auto (Bld) [#/Vol]on 25-89-4233VMC (Bld) [#/Vol]4.71 10 6/uL4.20-5.40[facility] Hospitalerum or plasma albumin/globulin mass ratioon 12-22-2023 Albumin/Globulin [Mass ratio]1.2 {ratio}[facility] Hospitalerum or plasma anion gap determinationon 17-56-5403Ntnsv gap [Moles/Vol]13.9 mmol/L [facility] HospitalGlucose Glucometer (BldC) [Mass/Vol]Ordered By: Lisa Rubalcava on 33-84-7803Symaikg [Mass/Vol]98 mg/dLMercer County Community HospitalComment on above:Random Glucose Reference Range is dependent on time and content of last meal. Glucose of more than 200 mg/dL in a nonstressed, ambulatory subject supports the diagnosis of Diabetes Mellitus.No Panel InformationOrdered By: Lisa Rubalcava on 42-94-9889Gnsrrju Glucose CommentGlu2: cleaned meterMercer County Community HospitalEstimated glomerular filtration rate (GFR) non- Americanon 76-46-8471LLT/1.73 sq M.predicted among non- blacks MDRD (S/P/Bld) [Vol rate/Area]52 mL/min/{1.73_m2}Low>=60[facility] HospitalGlobulin Calc (S) [Mass/Vol]on 79-49-9039Bqoaekev (S) [Mass/Vol]3.5 g/dLMercer County Community HospitalLaboratory - Chemistry and Chemistry - challengeon 71-91-8791Vovdjqf [Mass/Vol]3.9 g/dL3.4-5.0[facility] HospitalALP [Catalytic activity/Vol]91 U/F80-289OxueokxmoMercer County Community HospitalALT [Catalytic activity/Vol]44 U/G44-57WkrrlnkxeMercer County Community HospitalAST [Catalytic activity/Vol]40 U/KGuow62-34JecwncpvwMercer County Community HospitalBilirubin [Mass/Vol]0.4 mg/dL0.2-1.0[facility] HospitalCalcium [Mass/Vol]9.3 mg/dL8.5-10.1[facility] Chloride [Moles/Vol]110 mmol/EFjey50-259IylktpprmMercer County Community HospitalCO2 [Moles/Vol]26.2 mmol/L21.0-32.0[facility] HospitalCreatinine [Mass/Vol]1.07 mg/dLHigh0.55-1.02[facility] HospitalGFR/1.73 sq M.predicted MDRD (S/P/Bld) [Vol rate/Area]mL/min/{1.73_m2}>=60[facility] HospitalGlucose [Mass/Vol]127 mg/eEGyui40-161XjknsrqeaMercer County Community HospitalPotassium [Moles/Vol]4.7 mmol/L3.5-5.1[facility] Protein [Mass/Vol]7.4 g/dL6.4-8.2FUC Healthodium [Moles/Vol]145 mmol/X971-327QevvnpcepMercer County Community HospitalUrea nitrogen [Mass/Vol]12.0 mg/dL7.0-18.0[facility] HospitalUrea nitrogen/Creatinine [Mass ratio]11.2 mg/mgNewark Hospitalerum or plasma albumin/globulin mass ratioon 52-59-7533Lxdznon/Globulin [Mass ratio] 1.1 {ratio}[facility] Hospitalerum or plasma anion gap determinationon 81-60-8769Ldzdn gap [Moles/Vol]13.5 mmol/LFKettering Health DaytonCholesterol in LDL Calc [Mass/Vol]on 62-98-7158Dclestkqpgj in LDL [Mass/Vol]31.0 mg/dLMercer County Community HospitalComment on above:<100 mg/dl FAXYHKS180-690 mg/dl NEAR OR ABOVE CFYQBXV874-641 mg/dl BORDERLINE FTOM790-575 mg/dl HIGH>190 mg/dl VERY HIGHCholesterol in VLDL Calc [Mass/Vol]on 09-26-2023 Cholesterol in VLDL [Mass/Vol]47.8 mg/dLMercer County Community Hospital Estimated glomerular filtration rate (GFR) non- Americanon 09-26-2023 GFR/1.73 sq M.predicted among non-blacks MDRD (S/P/Bld) [Vol rate/Area] mL/min/{1.73_m2}>=60[facility] HospitalGlucose mean value [Mass/volume] in Blood Estimated from glycated hemoglobinon 32-42-5633Zxseyel glucose Estimated from glycated hemoglobin (Bld) [Mass/Vol]189 mg/dLMercer County Community HospitalLaboratory - Chemistry and Chemistry - challengeon 64-15-1885Jsomovfuvzu [Mass/Vol]120 mg/dL<=200[facility] Cholesterol in HDL [Mass/Vol]42 mg/gO80-04PddxththcMercer County Community Hospital Comment on above:> or =60 mg/dl - LOW CARDIOVASCULAR RISK<40 mg/dl - HIGH CARDIOVASCULAR RISKCreatinine [Mass/Vol]0.89 mg/dL0.55-1.02[facility] HospitalGFR/1.73 sq M.predicted MDRD (S/P/Bld) [Vol rate/Area] mL/min/{1.73_m2}>=60[facility] HospitalGlucose [Mass/Vol]182 mg/dL Xdaf92-220QkmuipnitMercer County Community HospitalTriglyceride [Mass/Vol]239 mg/dLHigh <=150[facility] HospitalTSH Qn2.178 m[IU]/L0.358-3.740[facility] HospitalLaboratory - Hematology and Cell countson 47-20-4308BiG6p (Bld) [Mass fraction]8.2 %High4.5-6.2FKettering Health DaytonComment on above:ADA RECOMMENDED LIMIT 4.0 - 6.0ADA THERAPEUTIC TARGET < 7.0ACTION SUGGESTED> 7.0No Panel Informationon 68-95-0930Auoozhd Level0.7 mmol/L0.5-1.2 [facility] HospitalComment on above:A concentration of 0.5-0.8 mmol/L is advised for long-termuse; concentrations of up to 1.2 mmol/L may be necessaryduring acute treatment. Detection Limit = 0.1 <0.1 indicates None DetectedPerformed at: [facility] [id number] Director: Wojciech Farah PhD, Phone: [phone] or plasma total cholesterol/high density lipoprotein (HDL) cholesterol mass alix 96-59-7541Oqqkprjgoqb.total/Cholesterol in HDL [Mass ratio]2.9 {ratio}[facility] HospitalComment on above:3.3 - 4.4 LOW RISK4.4 - 7.1 AVERAGE RISK7.1 - 11.0 MODERATE RISK>11.0 HIGH RISKBasophils Auto (Bld) [#/Vol]Ordered By: Ibrahima Chand on 76-67-1067Skagqarev (Bld) [#/Vol]0.0 10*3/uL0.0-0.2FK[facility]tering Health DaytonBasophils/100 WBC Auto (Bld)Ordered By: Ibrahima Chand on 24-19-4585Vionwisnn/100 WBC (Bld)0.5 %.[facility] HospitalCalcium [Mass/volume] in Serum or PlasmaOrdered By: Ibrahima Chand on 39-77-9885Toditqm [Mass/Vol]9.2 mg/dL8.6-10.3FK[facility] Health DaytonCarbon dioxide, total [Moles/volume] in Serum or PlasmaOrdered By: Ibrahima Chand on 72-06-3641YC4 [Moles/Vol]25.7 mmol/L21.0-31.0[facility] HospitalChloride [Moles/volume] in Serum or PlasmaOrdered By: Ibrahima Chand on 29-80-0617Gotnsqld [Moles/Vol]106 mmol/X77-499DnszocwjmMercer County Community HospitalCreatinine [Mass/volume] in Serum or PlasmaOrdered By: Ibrahima Chand on 77-72-8134Sdefhhzocv [Mass/Vol]0.79 mg/dL0.60-1.20[facility] HospitalEosinophils Auto (Bld) [#/Vol]Ordered By: Ibrahima Chand on 12-72-6388Rawhpsdvwwe (Bld) [#/Vol]0.0 10*3/uL0.0-0.45[facility] HospitalEosinophils/100 WBC Auto (Bld) Ordered By: Ibrahima Chand on 00-26-2199Keaalaklghl/100 WBC (Bld)0.1 %.[facility] HospitalErythrocyte distribution width Auto (RBC) [Ratio]Ordered By: Ibrahima Chand on 06-19-3560Zltqvopwdzv distribution width (RBC) [Ratio]14.7 % 11.9-15.3FK[facility] Health DaytonGlucose [Mass/volume] in Serum or PlasmaOrdered By: Ibrahima Chand on 47-14-5019Hzegpxl [Mass/Vol]157 mg/fF71-213 [facility] HospitalComment on above:ADA recommended reference rangeRandom Glucose Reference Range is dependent on time and content of last meal. Glucose of more than 200 mg/dL in a nonstressed, ambulatory subject supports the diagnosisof Diabetes Mellitus.Hematocrit Auto (Bld) [Volume fraction]Ordered By: Ibrahima Chand on 83-84-9566Tfnaucwfou (Bld) [Volume fraction] 43.1 %34.0-46.4FK[facility]tering Health DaytonHemoglobin [Mass/volume] in BloodOrdered By: Ibrahima Chand on 98-84-1746Mrysuuigur (Bld) [Mass/Vol]14.0 g/dL 11.8-15.4FKettering Health DaytonLeukocytes [#/volume] corrected for nucleated erythrocytes in Blood by Automated counOrdered By: Ibrahima Chand on 78-14-9150LDY corrected for nucl RBC Auto (Bld) [#/Vol]5.5 10*3/uL3.8-11.6 [facility] HospitalLymphocytes Auto (Bld) [#/Vol]Ordered By: Ibrahima Chand on 93-56-5213Ychufahhyqb (Bld) [#/Vol]1.1 10*3/uL1.00-4.8[facility] HospitalLymphocytes/100 WBC Auto (Bld)Ordered By: Ibrahima Chand on 67-95-7604Dvgytcklqin/100 WBC (Bld)19.2 %.[facility] HospitalH Auto (RBC) [Entitic mass]Ordered By: Ibrahima Chand on 95-13-6545YAN (RBC) [Entitic mass]27.6 pg24.7-34.3FK[facility] Health DaytonMCHC Auto (RBC) [Mass/Vol] Ordered By: Ibrahima Chand on 82-51-1285MKRJ (RBC) [Mass/Vol]32.5 g/dL32.0-35.0 [facility] HospitalMCV Auto (RBC) [Entitic vol]Ordered By: Ibrahima Chand on 08-43-9695RUD (RBC) [Entitic vol]84.9 iY89-504OuxrodsvaMercer County Community HospitalMonocytes Auto (Bld) [#/Vol]Ordered By: Ibrahima Chand on 08-01-2023 Monocytes (Bld) [#/Vol]0.4 10*3/uL0.0-0.8[facility] Monocytes/100 WBC Auto (Bld)Ordered By: Ibrahima Chand on 85-92-1194Vrvjyqjnv/100 WBC (Bld)7.1 %.[facility] HospitalNeutrophils Auto (Bld) [#/Vol] Ordered By: Ibrahima Chand on 93-60-0244Mdhijwfoxdc (Bld) [#/Vol]4.0 10*3/uL1.8-7.7 [facility] HospitalNeutrophils/100 WBC Auto (Bld)Ordered By: Ibrahima Chand on 60-08-3921Sltqqenmuri/100 WBC (Bld)73.1 %.[facility] HospitalNo Panel InformationOrdered By: Ibrahima Chand on 42-36-6881Gnliceoxb GFR (CKD-EPI)> 60.0 mL/MinMercer County Community HospitalPharmacy Creatinine Clearance (Chem75.96[facility] HospitalNucleated erythrocytes [Presence] in Blood by Automated countOrdered By: Ibrahima Chand on 08-01-2023 Nucleated RBC Auto Ql (Bld)0.1 /100{WBC}0-0.5FK[facility] Platelet mean volume Auto (Bld) [Entitic vol]Ordered By: Ibrahima Chand on 05-08-5859Jhhynnne mean volume (Bld) [Entitic vol]8.3 fL6.3-10.7FKettering Health DaytonPlatelets Auto (Bld) [#/Vol]Ordered By: Ibrahima Chand on 28-73-6116Rlbafluss (Bld) [#/Vol]131 10*3/qL722-495AcnmglgmjMercer County Community HospitalPotassium [Moles/volume] in Serum or PlasmaOrdered By: Geraldo García on 25-59-2662Znbbecwog [Moles/Vol]4.5 mmol/L3.5-5.1FKettering Health DaytonRBC Auto (Bld) [#/Vol]Ordered By: Ibrahima Chand on 14-63-8759FWR (Bld) [#/Vol]5.07 10*6/uL3.60-5.00[facility] Hospitalerum or plasma anion gap determinationOrdered By: Ibrahima Chand on 77-11-1291Wycmc gap [Moles/Vol] TNPMercer County Community HospitalComment on above:Test not performedSodium [Moles/volume] in Serum or PlasmaOrdered By: Ibrahima Chand on 60-40-4676Bgrxut [Moles/Vol]142 mmol/C859-811VevuwsdrhMercer County Community HospitalUrea nitrogen [Mass/volume] in Serum or PlasmaOrdered By: Ibrahima Chand on 13-67-5193Xupc nitrogen [Mass/Vol]9 mg/dL7-25[facility] HospitalWBC Auto (Bld) [#/Vol]Ordered By: Ibrahima Chand on 46-44-2909XBF (Bld) [#/Vol]5.5 10*3/uL3.8-11.6 [facility] HospitalHuman papilloma virus 16+18+31+33+35+39+45+51+52+56+58+59+66+68 DNA [Presence] in Pricila 12-66-8720PAR 16+18+31+33+35+39+45+51+52+56+58+59+66+68 DNA Probe+sig amp Ql (Cvx)Negative NegativeMercer County Community HospitalComment on above:This nucleic acid amplification test detects fourteen high-risk HPV types (16,18,31,33,35,39,45,51,52,56,58,59,66,68)without differentiation.Performed at: =G - [facility] [address] [id number] Director: Venus Acevedo MD, Phone: [phone] at: - [facility] [address] [id number] Director: Venus Acevedo MD, Phone: [phone] Panel Informationon 42-85-9378OXH High Risk Other CommentNote. [facility] HospitalComment on above:TESTS RESULT FLAG UNITS REF RANGE LAB DIAGNOSIS: 02 NEGATIVE FOR INTRAEPITHELIAL LESION OR MALIGNANCY.Specimen adequacy: 02 Satisfactory forevaluation. Endocervical and/or squamous metaplastic cells (endocervical component) are present.Performed by: 02 Yisel Corley Coordinate Measuring Machine Technician ([facility]). 02Note: Note 02 The Pap smear is [...] Low,>-Pa stephanie High,A-Abnormal,AA-Critical Abnormal Performed at:02 [facility] [address] [place] [address] Venus Acevedo MD, Pibboxspt Lab Test Patient AgeNote.[facility] HospitalComment on above:TESTS RESULT FLAG UNITS REF RANGE LAB Clinician Provided Cytology Information Source.............Cervix;Endocervix No. of containers..01 ThinPrep VialAge Algo ACOG Bailey... FLAG LEGEND: L-Low Normal,H-High Normal,LL-Alert Low,HH-Alert High <-Panic Low,>-Panic High,A- Abnormal,AA-Critical Abnormal Performed a t:01 =[address] [phone] Venus Acevedo MD, Kcxikmzrw Auto (Bld) [#/Vol]Ordered By: Geraldo García on 13-56-3549Mnypncmfd (Bld) [#/Vol]0.0 10*3/uL0.0-0.2FK[facility]tering Health DaytonBasophils/100 WBC Auto (Bld)Ordered By: Geraldo García on 16-83-7879Btgkppebt/100 WBC (Bld)0.6 %.[facility] Calcium [Mass/volume] in Serum or PlasmaOrdered By: Geraldo García on 40-11-3316Renvspu [Mass/Vol]9.5 mg/dL8.6-10.3[facility] Carbon dioxide, total [Moles/volume] in Serum or PlasmaOrdered By: Geraldo García on 58-51-2941NW9 [Moles/Vol]27.6 mmol/L21.0-31.0[facility] HospitalChloride [Moles/volume] in Serum or PlasmaOrdered By: Geraldo García on 18-27-1543Eezwqrpl [Moles/Vol]101 mmol/J67-343AklxhzonjMercer County Community HospitalCreatinine [Mass/volume] in Serum or PlasmaOrdered By: Geraldo García on 36-39-9207Aybampdbvb [Mass/Vol]0.90 mg/dL0.60-1.20[facility] HospitalEosinophils Auto (Bld) [#/Vol]Ordered By: Geraldo García on 72-50-3979Yaywduekmwb (Bld) [#/Vol]0.0 10*3/uL0.0-0.45[facility] HospitalEosinophils/100 WBC Auto (Bld)Ordered By: Geraldo García on 03-07-3002Vwluezzjdnu/100 WBC (Bld)0.0 %.[facility] HospitalErythrocyte distribution width Auto (RBC) [Ratio]Ordered By: Geraldo García on 07-45-1957Tuinebgkecc distribution width (RBC) [Ratio]14.1 % 11.9-15.3FKettering Health DaytonGlucose [Mass/volume] in Serum or PlasmaOrdered By: Geraldo García on 93-51-1794Heehscj [Mass/Vol]333 mg/dL 70-100Mer[facility] HospitalComment on above:ADA recommended reference rangeRandom Glucose Reference Range is dependent on time and content of last meal. Glucose of more than 200 mg/dL in a nonstressed, ambulatory subject supports the diagnosisof Diabetes Mellitus.Hematocrit Auto (Bld) [Volume fraction]Ordered By: Geraldo García on 83-33-3424Nnkzrxgeqr (Bld) [Volume fraction]39.2 %34.0-46.4FKettering Health DaytonHemoglobin [Mass/volume] in BloodOrdered By: Geraldo García on 87-60-8335Etfjmarqix (Bld) [Mass/Vol]13.0 g/dL11.8-15.4FKettering Health DaytonLeukocytes [#/volume] corrected for nucleated erythrocytes in Blood by Automated coun Ordered By: Geraldo García on 83-75-8486BZZ corrected for nucl RBC Auto (Bld) [#/Vol]4.8 10*3/uL3.8-11.6[facility] Medical CenterLymphocytes Auto (Bld) [#/Vol]Ordered By: Geraldo García on 64-79-0465Idbawnkbjat (Bld) [#/Vol]0.7 10*3/uL1.00-4.8[facility] HospitalLymphocytes/100 WBC Auto (Bld)Ordered By: Geraldo García on 31-40-3314Vskoiicaqwv/100 WBC (Bld) 15.7 %.[facility] HospitalH Auto (RBC) [Entitic mass]Ordered By: Geraldo García on 64-00-2301TAD (RBC) [Entitic mass]27.7 pg24.7-34.3FKettering Health DaytonMCHC Auto (RBC) [Mass/Vol]Ordered By: Geraldo García on 59-06-4387ZPUT (RBC) [Mass/Vol]33.1 g/dL32.0-35.0[facility] HospitalMCV Auto (RBC) [Entitic vol]Ordered By: Geraldo García on 29-89-2509RMP (RBC) [Entitic vol]83.7 hC74-522TytgscvbjMercer County Community HospitalMonocytes Auto (Bld) [#/Vol]Ordered By: Geraldo García on 57-52-9589Efunsanmk (Bld) [#/Vol] 0.3 10*3/uL0.0-0.8[facility] HospitalMonocytes/100 WBC Auto (Bld) Ordered By: Geraldo García on 82-64-5783Gematpbgr/100 WBC (Bld)6.6 %. [facility] HospitalNeutrophils Auto (Bld) [#/Vol]Ordered By: Geraldo García on 04-00-1870Kljancsphcq (Bld) [#/Vol]3.7 10*3/uL1.8-7.7 [facility] HospitalNeutrophils/100 WBC Auto (Bld)Ordered By: Geraldo García on 50-84-4891Ugpbfstscjw/100 WBC (Bld)77.1 %.[facility] HospitalNo Panel InformationOrdered By: Geraldo García on 34-02-9568Oixzatyay GFR (CKD-EPI)> 60.0 mL/MinMercer County Community Hospital Pharmacy Creatinine Clearance (ChemN/AFKettering Health DaytonNucleated erythrocytes [Presence] in Blood by Automated countOrdered By: Geraldo García on 52-28-2015Jhwijlvwg RBC Auto Ql (Bld)0.1 /100{WBC}0-0.5FKettering Health DaytonPlatelet mean volume Auto (Bld) [Entitic vol]Ordered By: Geraldo García on 02-08-1042Okaxyfcn mean volume (Bld) [Entitic vol]8.4 fL 6.3-10.7FKettering Health DaytonPlatelets Auto (Bld) [#/Vol]Ordered By: Geraldo García on 76-63-4432Gqztobdiz (Bld) [#/Vol]127 10*3/lU773-695 [facility] HospitalPotassium [Moles/volume] in Serum or Plasma Ordered By: Geraldo García on 50-17-5588Bsjsxftro [Moles/Vol]3.8 mmol/L 3.5-5.1FKettering Health DaytonRBC Auto (Bld) [#/Vol]Ordered By: Geraldo García on 06-84-6984TVI (Bld) [#/Vol]4.69 10*6/uL3.60-5.00[facility] Hospitalerum or plasma anion gap determinationOrdered By: Geraldo García on 82-76-2321Tyljj gap [Moles/Vol]12.2 mmol/L6.0-15.0[facility] Hospitalodium [Moles/volume] in Serum or PlasmaOrdered By: Geraldo García on 60-91-3165Quiigt [Moles/Vol]137 mmol/P689-654WaeyhedcvMercer County Community HospitalUrea nitrogen [Mass/volume] in Serum or PlasmaOrdered By: Geraldo García on 65-78-6282Qgqc nitrogen [Mass/Vol]12 mg/dL7-25Mer[facility] HospitalWBC Auto (Bld) [#/Vol]Ordered By: Geraldo García on 08-01-2865ENW (Bld) [#/Vol]4.8 10*3/uL3.8-11.6FKettering Health Dayton MRI BREAST BILATERAL W WO CONTRASTon 00-82-2525MFS BREAST BILATERAL W WO CONTRASTEXAMINATION: MRI OF [...] by: Anthony Pichardo MD 06/30/23 Final resultNormalMercy Northwest Rural Health NetworkEXAMINATION: MRI OF THE BILATERAL BREASTS WITHOUT AND [...] Signed by: Anthony Pichardo MD 06/30/23 Final resultMHPTRadiology, RadiologistMD - 06/30/2023 EXAMINATION: MRI OF THE BILATERAL [...] - KNOWN BIOPSY PROVEN MALIGNANCY. Interpreted by: Anthoyn Pichardo MD Signed by: Anthony Pichardo MD 06/30/23 Final result [facility] HealthcareRadiology Study observation (narrative)[facility] HospitalI BREAST BILATERAL W WO CONTRASTOrdered By: Radiologist Radiology on 07-70-1728GJZW [employer] Work Phone: basophils Auto (Bld) [#/Vol]Ordered By: Geraldo García on 14-51-3552Uejbwzmug (Bld) [#/Vol]0.0 10*3/uL0.0-0.2FKettering Health DaytonBasophils/100 WBC Auto (Bld)Ordered By: Geraldo García on 83-67-7724Bdkeoiqtn/100 WBC (Bld)0.5 %.[facility] Calcium [Mass/volume] in Serum or PlasmaOrdered By: Geraldo García on 63-94-2797Kvsanuh [Mass/Vol]9.8 mg/dL8.6-10.3FK[facility] Carbon dioxide, total [Moles/volume] in Serum or PlasmaOrdered By: Geraldo García on 87-43-9754DL4 [Moles/Vol]26.0 mmol/L21.0-31.0[facility] HospitalChloride [Moles/volume] in Serum or PlasmaOrdered By: Geraldo García on 09-82-7670Gstzobkb [Moles/Vol]107 mmol/Y32-101VnimzzeyhMercer County Community HospitalCreatinine [Mass/volume] in Serum or PlasmaOrdered By: Geraldo García on 00-54-7256Cceqqsxdkb [Mass/Vol]0.93 mg/dL0.60-1.20[facility] HospitalEosinophils Auto (Bld) [#/Vol]Ordered By: Geraldo García on 90-27-9051Ibynwyxwukv (Bld) [#/Vol]0.0 10*3/uL0.0-0.45[facility] HospitalEosinophils/100 WBC Auto (Bld)Ordered By: Geraldo García on 23-39-2615Voxijevedsp/100 WBC (Bld)0.0 %.[facility] HospitalErythrocyte distribution width Auto (RBC) [Ratio]Ordered By: Geraldo García on 92-23-0887Lzqjyuvvgbx distribution width (RBC) [Ratio]14.0 % 11.9-15.3FKettering Health DaytonGlucose [Mass/volume] in Serum or PlasmaOrdered By: Geraldo García on 09-64-6424Odamtfi [Mass/Vol]147 mg/dL 70-100Mer[facility] HospitalComment on above:ADA recommended reference rangeRandom Glucose Reference Range is dependent on time and content of last meal. Glucose of more than 200 mg/dL in a nonstressed, ambulatory subject supports the diagnosisof Diabetes Mellitus.Hematocrit Auto (Bld) [Volume fraction]Ordered By: Geraldo García on 10-18-3415Mgeshrgvcy (Bld) [Volume fraction]38.9 %34.0-46.4FKettering Health DaytonHemoglobin [Mass/volume] in BloodOrdered By: Geraldo García on 25-48-3198Hzeoojstok (Bld) [Mass/Vol]12.9 g/dL11.8-15.4FKettering Health DaytonLeukocytes [#/volume] corrected for nucleated erythrocytes in Blood by Automated coun Ordered By: Geraldo García on 42-25-8372MYP corrected for nucl RBC Auto (Bld) [#/Vol]5.7 10*3/uL3.8-11.6FKettering Health DaytonLymphocytes Auto (Bld) [#/Vol]Ordered By: Geraldo García on 43-24-8333Yqcrajotqhd (Bld) [#/Vol]1.2 10*3/uL1.00-4.8[facility] HospitalLymphocytes/100 WBC Auto (Bld)Ordered By: Geraldo García on 05-83-4715Uqwbmbktncz/100 WBC (Bld) 21.5 %.[facility] HospitalH Auto (RBC) [Entitic mass]Ordered By: Geraldo García on 81-52-8551OXC (RBC) [Entitic mass]28.4 pg24.7-34.3FKettering Health DaytonMCHC Auto (RBC) [Mass/Vol]Ordered By: Geraldo García on 18-32-8549QRMM (RBC) [Mass/Vol]33.1 g/dL32.0-35.0[facility] HospitalMCV Auto (RBC) [Entitic vol]Ordered By: Geraldo García on 77-61-5272MNN (RBC) [Entitic vol]85.8 cL69-856SemuymktxMercer County Community HospitalMonocytes Auto (Bld) [#/Vol]Ordered By: Geraldo García on 41-98-4785Fyzryygto (Bld) [#/Vol] 0.4 10*3/uL0.0-0.8[facility] HospitalMonocytes/100 WBC Auto (Bld) Ordered By: Geraldo García on 78-54-0778Vqyncjyau/100 WBC (Bld)6.5 %. [facility] HospitalNeutrophils Auto (Bld) [#/Vol]Ordered By: Geraldo García on 01-25-2189Zqgxirtieph (Bld) [#/Vol]4.0 10*3/uL1.8-7.7 [facility] HospitalNeutrophils/100 WBC Auto (Bld)Ordered By: Geraldo García on 22-03-8791Zewjcouglhi/100 WBC (Bld)71.5 %.[facility] HospitalNo Panel InformationOrdered By: Geraldo García on 54-77-4555Ybraiyhhc GFR (CKD-EPI)> 60.0 mL/MinMercer County Community Hospital Pharmacy Creatinine Clearance (ChemN/AFKettering Health DaytonNucleated erythrocytes [Presence] in Blood by Automated countOrdered By: Geraldo García on 02-75-8698Jjelyffht RBC Auto Ql (Bld)0.0 /100{WBC}0-0.5FKettering Health DaytonPlatelet mean volume Auto (Bld) [Entitic vol]Ordered By: Geraldo García on 81-46-2541Kiirzvql mean volume (Bld) [Entitic vol]7.9 fL 6.3-10.7FKettering Health DaytonPlatelets Auto (Bld) [#/Vol]Ordered By: Geraldo García on 95-39-5181Taxjsiqug (Bld) [#/Vol]146 10*3/oF137-502 [facility] CenterPotassium [Moles/volume] in Serum or Plasma Ordered By: Geraldo García on 56-53-2608Tiepmvldt [Moles/Vol]4.2 mmol/L 3.5-5.1FKettering Health DaytonRBC Auto (Bld) [#/Vol]Ordered By: Geraldo García on 17-62-7953NDL (Bld) [#/Vol]4.53 10*6/uL3.60-5.00[facility] Hospitalerum or plasma anion gap determinationOrdered By: Geraldo García on 52-01-3839Zujfo gap [Moles/Vol]13.2 mmol/L6.0-15.0[facility] Hospitalodium [Moles/volume] in Serum or PlasmaOrdered By: Geraldo García on 22-36-0774Diojvq [Moles/Vol]142 mmol/P350-363DaoimohtgMercer County Community HospitalUrea nitrogen [Mass/volume] in Serum or PlasmaOrdered By: Geraldo García on 67-73-1607Kzti nitrogen [Mass/Vol]12 mg/dL7-25[facility] HospitalWBC Auto (Bld) [#/Vol]Ordered By: Geraldo García on 59-12-9981XUV (Bld) [#/Vol]5.7 10*3/uL3.8-11.6FKettering Health Dayton MG MAMM LT DIAG FUon 18-16-0075GR MAMM LT DIAG FUPatient: MELONY MANLEY Exam Date: 08/26/2022 : 1965 Gender:F Ordering : DR LITTLE STAFFORD . Admission #: [id number] Family : Order #: [id number] CLICK HERE TO VIEW EXAM RADIOLOGY REPORT [...] stomach cancer at age 54. LOCATION: [facility] BREAST COMPOSITION: Heterogeneously dense,which may obscure [...] by: Thea Neumann M.D. on 08/26/2022 at 14:39[facility] HospitalUS BREAST LEFT LIMITEDon 29-85-8747VJ BREAST LEFT LIMITEDPatient: MELONY MANLEY Exam Date: 08/26/2022 : 1965 Gender:F Ordering : DR LITTLE STAFFORD . Admission #: [id number] Family : Order #: [id number] CLICK HERE TO VIEW EXAM RADIOLOGY REPORT [...] stomach cancer at age 54. LOCATION: [facility] BREAST COMPOSITION: Heterogeneously dense,which may obscure [...] by: Thea Neumann M.D. on 08/26/2022 at 14:39[facility] HospitalMG MAMM SCREEN 3D SOLITARIO CADon [id number] MAMM SCREEN 3D SOLITARIO CADPatient: MELONY MANLEY Exam Date: 08/01/2022 : 1965 Gender:F Ordering : DR LITTLE STAFFORD . Admission #: [id number] Family : Order #: [id number] CLICK HERE TO VIEW EXAM RADIOLOGY REPORT [...] stomach cancer at age 54. LOCATION: [facility] BREAST COMPOSITION: Heterogeneously dense,which may obscure [...] by: Thea Neumann M.D. on 08/01/2022 at 12:26[facility] HospitalXR DEXA BONE DENSITYon [id number] DEXA BONE DENSITYEXAMINATION: XR DEXA BONE DENSITY, [...] Electronically authenticated by: THEA NEUMANN Date: 2022-08-01 11:39[facility] ACOG PANEL 2: 30 to 65on 07-26-2022..NormalThe [facility] Mary HospitalComment on above:Result Comment: Performed at: WBPerformed By: #### [id number] #### [facility] [address] [place] [address] Dr. Devon Prater Gdln ACOG Jyysaeo27-88HcyjsrMdaWhite HospitalComment on above:Performed By: #### [id number] #### [facility] [address] [place] [address] Dr. Devon GilletteDIAGNOSIS:CommentHolzer HospitalComment on above: Result Comment: NEGATIVE FOR INTRAEPITHELIAL LESION OR MALIGNANCY. Performed at: WBPerformed By: #### [id number] #### [facility] [address] [place] [address] Dr. Devon GilletteHPV AptimaNegativeNormalNegativeLakehealth Tripoint Medical CenterComment on above:Result Comment: This nucleic acid amplification test detects fourteen high-risk HPV types (16,18,31,33,35,39,45,51,52,56,58,59,66,68) without differentiation. Performed at: =GPerformed By: #### [id number] #### [facility] [address] [place] [address] Dr. Devon GilletteHPV Genotype ReflexCommentSelect Medical Specialty Hospital [facility] on above:Result Comment: Criteria not met, HPV Genotype not performed. Performed at: WBPerformed By: #### [id number] #### [facility] [address] [place] [address] Dr. Devon GilletteMethodology:CommentSelect Medical Specialty Hospital - Trumbull on above: Result Comment: This liquid based ThinPrep(R) pap test was screened with the use of an image guided system. Performed at: WBPerformed By: #### [id number] #### [place] [address] Dr. Devon GilletteNote:CommentSelect Medical Specialty Hospital - Trumbull on above:Result Comment: The Pap smear is a screening test designed to aid in the detection of premalignant and malignant conditions of the uterine cervix. It is not a diagnostic procedure and should not be used as the sole means of detecting cervical cancer. Both false-positive and false-negative reports do occur. . Performed at: WBPerformed By: #### [id number] #### [place] [address] Dr. Devon GillettePerformed by:CommentSelect Medical Specialty Hospital - Trumbull on above: Result Comment: Bryan Girard Coordinate Measuring Machine Technician (ASCP) Performed at: WBPerformed By: #### [id number] #### [facility] [address] [place] [address] Dr. Devon GilletteSpecimen adequacy:CommentSelect Medical Specialty Hospital - Trumbull on above:Result Comment: Satisfactory for evaluation. Endocervical and/or squamous metaplastic cells (endocervical component) are present. Performed at: WBPerformed By: #### [id number] #### [facility] [address] [place] [address] Dr. Devon GilletteVAGINITIS/VAGINOSIS DNA PROBEon 26-72-9025Dxmpgxv speciesNegative NormalNegativeLakehealth Tripoint Medical CenterComment on above:Performed By: #### VAGINT #### [facility] [address] [place] [address] Dr. Devon Yousif vaginalisPositiveAbnormalNegativeThe Mount St. Mary HospitalComment on above:Performed By: #### VAGINT #### [facility] [address] [place] [address] Dr. Devon Syhomonas vaginalisNegativeNormalNegativeLakehealth Tripoint Medical Center Comment on above:Performed By: #### VAGINT #### [facility] [address] [place] [address] Dr. Devon GilletteCULTURE URINEon [id number] URINECulture Observations: LIGHT GROWTH OF MIXED GENITAL LAZARO. NO POTENTIAL PATHOGENS SEEN.NormalThe Mount St. Mary HospitalComment on above:Performed By: #### GLUC, TSH, LIPID, CREA #### [facility] [address] [place] [address] Dr. Devon GilletteLITHIUMon 27-06-7100Qvdamid (Eskalith(R)), Serum0.6 mmol/LNormal 0.5-1.2The [facility] HospitalComment on above:Result Comment: A concentration of 0.5-0.8 mmol/L is advised for long-term use; concentrations of up to 1.2 mmol/L may be necessary during acute treatment. Detection Limit = 0.1 <0.1 indicates None DetectedPerformed By: #### GLUC, TSH, LIPID, CREA #### [facility] [address] [place] [address] Dr. Devon GilletteCREATININEon 16-29-9424Ggvctaunqg [Mass/Vol]0.89 mg/dLNormal 0.55-1.02The [facility] HospitalComment on above:Performed By: #### GLUC, TSH, LIPID, CREA #### [facility] [address] [place] [address] Dr. Osorio ChangEGFR-AF ARGENTINE>60Normal>=60The [facility]rit[facility] HospitalComment on above:Performed By: #### GLUC, TSH, LIPID, CREA #### [facility] [address] [place] [address] Dr. Devon JoyGFR-NON AF ARGENTINE>60Normal>=60[facility] HospitalComment on above:Performed By: #### GLUC, TSH, LIPID, CREA #### [facility] [address] [place] [address] Dr. Devon GilletteGLUCOSE BLOODon 50-60-3421Jfkvyue [Mass/Vol]118 mg/dLCritically yipj91-306NitLakehealth Tripoint Medical CenterComment on above:Performed By: #### GLUC, TSH, LIPID, CREA #### [facility] [address] [place] [address] Dr. Devon CuellarID PROFILEon 37-32-4001JWBZ-HDL RATIO NORMSWexner Medical CenterComment on above:Result Comment: 3.3 - 4.4 LOW RISK 4.4 - 7.1 AVERAGE RISK 7.1 - 11.0 MODERATE RISK >11.0 HIGH RISKPerformed By: #### GLUC, TSH, LIPID, CREA #### [facility] [address] [place] [address] Dr. Devon De La Pazesterol [Mass/Vol]128 mg/dLNormal<=200[facility] Comment on above:Performed By: #### GLUC, TSH, LIPID, CREA #### [facility] [address] [place] [address] Dr. Devon De La Pazesterol in HDL [Mass/Vol]47 mg/bGLkribg48-38VcpLakehealth Tripoint Medical CenterComment on above:Performed By: #### GLUC, TSH, LIPID, CREA #### [facility] [address] [place] [address] Dr. Devon De La Pazesterol in LDL [Mass/Vol]34.6 mg/dLHolzer HospitalComment on above:Performed By: #### GLUC, TSH, LIPID, CREA #### [facility] [address] [place] [address] Dr. Devon GilletteCholesterol.total/Cholesterol in HDL [Mass ratio]2.7 {ratio} NormalFlower Hospital on above:Performed By: #### GLUC, TSH, LIPID, CREA #### [facility] [address] [place] [address] Dr. Devon MckeeL NORMAL> or = 60 mg/dl - LOW CARDIOVASCULAR RISK <40 mg/dl - HIGH CARDIOVASCULAR RISKHolzer HospitalComascension providence hospital on above:Performed By: #### GLUC, TSH, LIPID, CREA #### [facility] [address] [place] [address] Dr. Devon GilletteLDL CALC NORMALSEE BELOWHolzer HospitalComascension providence hospital on above:Result Comment: <100 mg/dl OPTIMAL 100 - 129 mg/dl NEAR OR ABOVE OPTIMAL 130 - 159 mg/dl BORDERLINE HIGH 160 - 189 mg/dl HIGH >190 mg/dl VERY HIGH Performed By: #### GLUC, TSH, LIPID, CREA #### [facility] [address] [place] [address] Dr. Devon GilletteTriglyceride [Mass/Vol]232 mg/dLCritically high<=150The [facility] on above:Performed By: #### GLUC, TSH, LIPID, CREA #### [facility] [address] [place] [address] Dr. Devon GilletteVLDL CALC46.4 mg/dLSelect Medical Specialty Hospital - [facility] on above: Performed By: #### GLUC, TSH, LIPID, CREA #### [facility] [address] [place] [address] Dr. Devon White 77-99-1823RRR1.375 uIU/mLNormal0.358-3.740The [facility] on above:Performed By: #### GLUC, TSH, LIPID, CREA #### [facility] [address] [place] [address] Dr. Devon Collins URINEon 97-31-8679PAIMOVX URINEIsolate 1 Proteus mirabilis 15,000 cfu/mL of [...] 128 R F Trimethoprim/Sulfamethoxazole <=[address] Mary HospitalComment on above:Performed By: #### URCX #### [facility] [address] [place] [address] Dr. Devon VarelaUMmarleni 57-38-7063Isijgip (Eskalith(R)), Serum0.7 mmol/LNormal 0.5-1.2The [facility] on above:Result Comment: Plasma concentration of 0.5 - 0.8 mmol/L are advised for long-term use; concentrations of up to 1.2 mmol/L may be necessary during acute treatment. Detection Limit = 0.1 <0.1 indicates None DetectedPerformed By: #### GLUC, TSH, LIPID, CREA #### [facility] [address] [place] [address] Dr. Devon Berger 74-75-3243Gdnkrsiboy [Mass/Vol]1.10 mg/dLCritically high0.55-1.02[facility] on above:Performed By: #### GLUC, TSH, LIPID, CREA #### [facility] [address] [place] [address] Dr. Devon JoyGFR-AF ARGENTINE>60Normal>=60The [facility] on above:Performed By: #### GLUC, TSH, LIPID, CREA #### [facility] [address] [place] [address] Dr. Devon JoyGFR-NON AF XPMRDLLU50 mL/min/1.43u1Xbsdsgadck low>=60The [facility] on above:Performed By: #### GLUC, TSH, LIPID, CREA #### [facility] [address] [place] [address] [address] Devon HannahRECT LDLon 55-33-6745Vtabbikzmso in LDL [Mass/Vol]133 mg/dL NormalFlower Hospital on above:Performed By: #### GLUC, TSH, LIPID, CREA #### [facility] [address] [address] [address] Devon GilletteDLDL NORMALSEE [facility] on above: Result Comment: <100 mg/dl OPTIMAL 100 - 129 mg/dl NEAR OR ABOVE OPTIMAL 130 - 159 mg/dl BORDERLINE HIGH 160 - 189 mg/dl HIGH >190 mg/dl VERY HIGHPerformed By: #### GLUC, TSH, LIPID, CREA #### [facility] [address] [place] [address] Dr. Devon GilletteGLUCOSE BLOODon 47-45-7453Njujsbk [Mass/Vol]151 mg/dLCritically hkoq40-408Rgz [facility] on above:Performed By: #### GLUC, TSH, LIPID, CREA #### [facility] [address] [place] [address] Dr. Devon CuellarID PROFILEon 04-59-6286GFRB-HDL RATIO NORMSEE [facility] HospitalComascension providence hospital on above:Result Comment: 3.3 - 4.4 LOW RISK 4.4 - 7.1 AVERAGE RISK 7.1 - 11.0 MODERATE RISK >11.0 HIGH RISKPerformed By: #### GLUC, TSH, LIPID, CREA #### [facility] [address] [place] [address] Dr. Devon GilletteCholesterol [Mass/Vol]244 mg/dLCritically high<=200The [facility] on above:Performed By: #### GLUC, TSH, LIPID, CREA #### [facility] [address] [place] [address] Dr. Devon GilletteCholesterol in HDL [Mass/Vol]33 mg/dLCritically ykq19-68Atd [facility] on above:Performed By: #### GLUC, TSH, LIPID, CREA #### [facility] [address] [place], [place] [address] Dr. Devon GilletteCholesterol.total/Cholesterol in HDL [Mass ratio]7.4 {ratio} NormalLakehealth Tripoint Medical CenterComascension providence hospital on above:Performed By: #### GLUC, TSH, LIPID, CREA #### [facility] [address] [place] [address] [address] Dveon GilletteHDL NORMAL> or = 60 mg/dl - LOW CARDIOVASCULAR RISK <40 mg/dl - HIGH CARDIOVASCULAR RISKNormNewark HospitalComment on above:Performed By: #### GLUC, TSH, LIPID, CREA #### [facility] [address] [place] [address] [address] Devon GilletteTriglyceride [Mass/Vol]431 mg/dLCritically high<=150L[facility] Medical CenterComascension providence hospital on above:Performed By: #### GLUC, TSH, LIPID, CREA #### [facility] [address] [address] [address] Devon Gillette Vital Signs Date TimeVital SignValuePerforming BidumcvpfFoglscgp11-32-2269 10:290400Body slesnk90.85 kgSusan Ayala MD Work Phone: 1(530)[address]10-08-2025 10:29-0400 Diastolic blood gsldapps16 mm[Hg]Susan Ayala MD Work Phone: 1(220)[address] [place], [place] 5723510-08-2025 10:290400 Heart rate92 /William Ayala MD Work Phone: 1(923)[address] [place], [place] 5723510-08-2025 10:290400 Respiratory rate16 /William Ayala MD Work Phone: 1(606)[address] [place], [place] 5723510-08-2025 10:290400 SaO2% (BldA) [Mass fraction]97 %Susan Ayala MD Work Phone: 1(340)[address]10-08-2025 10:29-0400 Systolic blood jzrxarpi082 mm[Hg]Susan Ayala MD Work Phone: 1(897)[address]09-29-2025 10:00-0400 Body rppzmy906.56 cmSusan Ayala MD Work Phone: 1(445)[address]09-29-2025 10:00-0400 Body mass index (BMI) [Ratio]26.2 kg/a0WvcjavSusan Ayala MD Work Phone: 1(066)281-[address] [place], [place] 3833009-29-2025 10:00-0400 Body kyjmqn97.39 kgSusan Ayala MD Work Phone: 1(800)912-[address] [place], [place] 3833009-29-2025 10:00-0400 Diastolic blood hhwtsgny47 mm[Hg]Susan Ayala MD Work Phone: 1(013)[address]33 [address]09-29-2025 10:00-0400 Heart rate74 /minSusan Ayala MD Work Phone: 1(610)[address]09-29-2025 10:00-0400 Systolic blood yqwsgocn812 mm[Hg]Susan Ayala MD Work Phone: 1(274)[address]05-29-2025 13:42-0400 Body .6 cmNicholas Brown DPM Work Phone: 1(307)561-[facility] BransonVofefxjjko98-96-4014 13:42-0400Body mass index (BMI) [Ratio]28.15 kg/o2Ebxkpxoh Brown DPM Work Phone: 7(534)0-[facility] BransonJgxlcgpxlz61-75-1468 13:42-0400Body bpvifl36.39 kgNicholas Brown DPM Work Phone: 1(568)8-[address] [place], [place] [address]Fzynmznycw51-96-2723 13:42-0400Respiratory rate16 /minNicholas Brown DPM Work Phone: 1(219)0-[facility] BransonGzkjlzegng71-60-5537 10:40-0400Body xnxowg248.6 cmNicholas Brown DPM Work Phone: [facility] BransonGqgufkjvit61-07-0269 10:40-0400Body mass index (BMI) [Ratio]28.15 kg/u8Mksobrby Brown DPM Work Phone: [facility] BransonTclnobqjfm04-33-6044 10:40-0400Body kqbzsu26.39 kgGilson Kostas DPM Work Phone: [facility] BransonEublvbxjcw67-20-4498 10:40-0400Respiratory rate16 /ljGilson Portillo DPM Work Phone: [facility] BransonVnajzftnbf89-63-0911 11:27-0400Body temperature 97.6 [degF]Susan Ayala MD Work Phone: 1(509)[address]04-09-2025 11:27-0400 Body xveppc09.21 kgSusan Ayala MD Work Phone: 1(239)[address] [place], [place] 5723504-09-2025 11:27-0400 Diastolic blood nvpyjbym56 mm[Hg]Susan Ayala MD Work Phone: 1(008)[address] [place], [place] 5723504-09-2025 11:27-0400 Heart rate77 /William Ayala MD Work Phone: 1(480)[address] [place], [place] 5723504-09-2025 11:27-0400 Respiratory rate20 /William Ayala MD Work Phone: 1(574)[address] [place], [place] 5723504-09-2025 11:27-0400 SaO2% (BldA) [Mass fraction]99 %Susan Ayala MD Work Phone: 1(652)[address] [place], [place] 5723504-09-2025 11:27-0400 Systolic blood cevnnopb611 mm[Hg]Susan Ayala MD Work Phone: 1(021)[address] [place], [place] 5723503-13-2025 13:18-0400 Body dvqoqt540.56 cmSusan Ayala MD Work Phone: 1(126)[address] [place], [place] 5723503-13-2025 13:18-0400 Body mass index (BMI) [Ratio]26.9 kg/j2JulqdrSusan Ayala MD Work Phone: 1(344)[address] [place], [place] 5723503-13-2025 13:18-0400 Body dcggsictjnw01.8 [degF]Susan Ayala MD Work Phone: 1(060)[address] [place], [place] 5723503-13-2025 13:18-0400 Body .21 kgSusan Ayala MD Work Phone: 1(419)[address] [place], [place] 5723503-13-2025 13:18-0400 Diastolic blood grmlaiua35 mm[Hg]Susan Ayala MD Work Phone: 1(419)[address] [place], [place] 5723503-13-2025 13:18-0400 Heart anrn156 /William Ayala MD Work Phone: 1(419)[address] [place], [place] 5723503-13-2025 13:18-0400 SaO2% (BldA) [Mass fraction]99 %Susan Ayala MD Work Phone: 1(419)[address] [place], [place] 5723503-13-2025 13:18-0400 Systolic blood midzldzd216 mm[Hg]Susan Ayala MD Work Phone: 1(419)[address] [place], [place] 5723502-04-2025 08:44-0500 Body ciowuk945.56 cmSusan Ayala MD Work Phone: 1(419)[address] [place], [place] 5723502-04-2025 08:44-0500 Body mass index (BMI) [Ratio]27.1 kg/n1RwvwowSusan Ayala MD Work Phone: 1(419)[address] [place], [place] 5723502-04-2025 08:44-0500 Body yflhwo34.66 kgSusan Ayala MD Work Phone: 1(419)[address] [place], [place] 5723502-04-2025 08:44-0500 Diastolic blood cwllbkug30 mm[Hg]Susan Ayala MD Work Phone: 1(419)[address] [place], [place] 5723502-04-2025 08:44-0500 Heart rate66 /William Ayala MD Work Phone: 1(419)[address] [place], [place] 5723502-04-2025 08:44-0500 Systolic blood ydusqsai291 mm[Hg]Susan Ayala MD Work Phone: 1(419)[address] [place], [place] 5723501-17-2025 13:26-0500 Body yilyrn274.56 cmSusan Ayala MD Work Phone: 1419)[address] [place], [place] 5723501-17-2025 13:26-0500 Body mass index (BMI) [Ratio]27.4 kg/c7VzasqqSusan Ayala MD Work Phone: 1(812)[address] [place], [place] 5723501-17-2025 13:26-0500 Body .57 kgSusan Ayala MD Work Phone: 1(743)[address] [place], [place] 5723501-17-2025 13:26-0500 Diastolic blood hfgdzyuj39 mm[Hg]Susan Ayala MD Work Phone: 1(843)[address] [place], [place] 5723501-17-2025 13:26-0500 Heart tczo776 /William Ayala MD Work Phone: 1(127)[address] [place], [place] 5723501-17-2025 13:26-0500 Systolic blood wmmrezfy426 mm[Hg]Susan Ayala MD Work Phone: 1(308)[address] [place], [place] 5723501-16-2025 11:45-0500 Body naxkfn204.56 cmSusan Ayala MD Work Phone: 1(337)[address] [place], [place] 5723501-16-2025 11:45-0500 Body mass index (BMI) [Ratio]27.3 kg/l0DgzlpySusan Ayala MD Work Phone: 1(177)[address] [place], [place] 5723501-16-2025 11:45-0500 Body ttirxaiicvl84.6 [degF]Susan Ayala MD Work Phone: 1(220)[address] [place], [place] 5723501-16-2025 11:45-0500 Body pbyhms78.12 Emilee Ayala MD Work Phone: 1(219)[address] [place], [place] 5723501-16-2025 11:45-0500 Diastolic blood kyjsqbwo09 mm[Hg]Susan Ayala MD Work Phone: 1(308)[address] [place], [place] 5723501-16-2025 11:45-0500 Heart jxbh529 /William Ayala MD Work Phone: 1(297)[address] [place], [place] 5723501-16-2025 11:45-0500 Respiratory rate20 /William Ayala MD Work Phone: 1(360)[address] [place], [place] 5723501-16-2025 11:45-0500 SaO2% (BldA) [Mass fraction]99 %Susan Ayala MD Work Phone: 1(051)58833 [address]01-16-2025 11:45-0500 Systolic blood mm[Hg]Susan Ayala MD Work Phone: 1(470)[address] [place], [place] 5723501-10-2025 11:14-0500 Body .56 cmSusan Ayala MD Work Phone: 1(652)[address] [place], [place] 5723501-10-2025 11:14-0500 Body mass index (BMI) [Ratio]27.1 kg/a3PxnkouSusan Ayala MD Work Phone: 1(294)[address] [place], [place] 5723501-10-2025 11:14-0500 Body kbydnhpzikw13.9 [degF]Susan Ayala MD Work Phone: 1(682)[address] [place], [place] 5723501-10-2025 11:14-0500 Body nikvnd58.66 kgSusan Ayala MD Work Phone: 1(659)[address] [place], [place] 5723501-10-2025 11:14-0500 Diastolic blood gquxqgmr58 mm[Hg]Susan Ayala MD Work Phone: 1(260)[address] [place], [place] 5723501-10-2025 11:14-0500 Heart rate93 /minSusan Ayala MD Work Phone: 1(539)[address] [place], [place] 5723501-10-2025 11:14-0500 SaO2% (BldA) [Mass fraction]99 %Susan Ayala MD Work Phone: 1(369)40033 [address]01-10-2025 11:14-0500 Systolic blood uspaiuem068 mm[Hg]Susan Ayala MD Work Phone: 1(403)[address] [place], [place] 5723512-04-2024 12:50-0500 Body ntzbmi706.6 cmChristy Quick MD Work Phone: [facility] BransonRkxjmwfizy68-11-6745 12:50-0500Diastolic blood mbbhjcce03 mm[Hg]Christy Quick MD Work Phone: [facility] BransonTaixweprxr09-57-8392 12:50-0500Systolic blood fllujxvn512 mm[Hg]Christy Quick MD Work Phone: [facility] BransonRiajmykusz13-25-5657 14:49-0500Body gyzbhd5756.72 cmSusan Ayala MD Work Phone: 1(926)[address]11-18-2024 14:49-0500 Body mass index (BMI) [Ratio]0.1 kg/t6UbekugSusan Ayala MD Work Phone: 1(876)04933 [address]11-18-2024 14:49-0500 Body veyxkc26.76 kgSusan Ayala MD Work Phone: 1(213)[address] [place], [place] 5723511-18-2024 14:49-0500 Diastolic blood hwfviroh71 mm[Hg]Susan Ayala MD Work Phone: 1(177)[address] [place], [place] 5723511-18-2024 14:49-0500 Heart rate87 /minSusan Ayala MD Work Phone: 1(581)[address] [place], [place] 5723511-18-2024 14:49-0500 Systolic blood jbrsuzhj239 mm[Hg]Susan Ayala MD Work Phone: 1(931)[address]11-15-2024 10:31-0500 Body nubric076.56 cmSusan Ayala MD Work Phone: 1(873)[address] [place], [place] 5723511-15-2024 10:31-0500 Body mass index (BMI) [Ratio]26.7 kg/r6IsuigbSusan Ayala MD Work Phone: 1(815)[address]33 [address]11-15-2024 10:31-0500 Body nrdhvnurnor35.9 [degF]Susan Ayala MD Work Phone: 1(298)[address]33 [address]11-15-2024 10:31-0500 Body apdqoa80.76 kgSusan Ayala MD Work Phone: 1(202)13433 [address]11-15-2024 10:31-0500 Diastolic blood msurwzzo48 mm[Hg]Susan Ayala MD Work Phone: 1(419)483-[address] [place], [place] 3833011-15-2024 10:31-0500 Heart rate91 /William Ayala MD Work Phone: 1(319)158-[address] [place], [place] 3833011-15-2024 10:31-0500 Respiratory rate16 /William Ayala MD Work Phone: 1(684)[address] [place], [place] 5723511-15-2024 10:31-0500 SaO2% (BldA) [Mass fraction]99 %Susan Ayala MD Work Phone: 1(090)21633 [address]11-15-2024 10:31-0500 Systolic blood unxobykd854 mm[Hg]Susan Ayala MD Work Phone: 1(719)[address] [place], [place] 5723511-09-2024 09:13-0500 Body xhtyjw828.56 cmSusan Ayala MD Work Phone: 1(840)[address] [place], [place] 5723511-09-2024 09:13-0500 Body mass index (BMI) [Ratio]27.3 kg/b0IgxwviSusan Ayala MD Work Phone: 1(208)[address] [place], [place] 5723511-09-2024 09:13-0500 Body ruiixsseeqe15.5 [degF]Susan Ayala MD Work Phone: 1(535)[address] [place], [place] 5723511-09-2024 09:13-0500 Body jnozqg23.12 kgSusan Ayala MD Work Phone: 1(754)[address] [place], [place] 5723511-09-2024 09:13-0500 Diastolic blood chvzunld72 mm[Hg]Susan Ayala MD Work Phone: 1(096)[address]11-09-2024 09:13-0500 Heart rate94 /William Ayala MD Work Phone: 1(044)[address] [place], [place] 5723511-09-2024 09:13-0500 Respiratory rate16 /William Ayala MD Work Phone: 1(632)[address] [place], [place] 5723511-09-2024 09:13-0500 SaO2% (BldA) [Mass fraction]97 %Susan Ayala MD Work Phone: [facility]11-09-2024 09:13-0500 Systolic blood edxyagkr858 mm[Hg]Susan Ayala MD Work Phone: 1(253)800-52[facility]10-31-2024 13:23-0400 Body vshdcu053.6 cmGilson Kostas DPM Work Phone: [facility]ansonAmxxisfpyk53-69-1709 13:23-0400Body mass index (BMI) [Ratio]28.15 kg/p3Ykqigjcw Kostas DPM Work Phone: [facility]ansonZfqvuexxam98-01-3925 13:23-0400Body oddwrq85.39 kgGilson Portillo DPM Work Phone: [facility]ansonDzgsbcjcpu05-87-0644 13:23-0400Heart rate81 /min Gilson Portillo DPM Work Phone: [facility]ansonUwmohrqbfn80-35-6859 08:13-0400Body spegqk851.56 cmMD Susan Ayala Work Phone: 1(964)63033 [address]10-15-2024 08:13-0400 Body mass index (BMI) [Ratio]27.1 kg/m2MD Susan Ayala Work Phone: 1(023)61533 [address]10-15-2024 08:13-0400 Body psgoyq15.78 kgMD Susan Aylaa Work Phone: 1(003)[address]10-15-2024 08:13-0400 Diastolic blood hxxrroyd49 mm[Hg]MD Susan Ayala Work Phone: 1(371)365-[address] [place], [place] 3833010-15-2024 08:13-0400 Heart rate89 /minMD Susan Ayala Work Phone: [phone] [place], [place] 3833010-15-2024 08:13-0400 Respiratory rate16 /minMD Susan Ayala Work Phone: [phone] [place], [place] 3833010-15-2024 08:13-0400 SaO2% (BldA) [Mass fraction]97 %MD Susan Ayala Work Phone: [phone] [place], [place] 5723510-15-2024 08:13-0400 Systolic blood csqifimd595 mm[Hg]MD Susan Ayala Work Phone: 1([phone] [place], [place] 5723510-10-2024 13:01-0400 Body ruvfoh535.56 cmMD Susan Ayala Work Phone: [phone] [place] 5723510-10-2024 13:01-0400 Body mass index (BMI) [Ratio]27.3 kg/m2MD Susan Ayala Work Phone: 1(164)[address] [place], [place] 5723510-10-2024 13:01-0400 Body zqytejylsdw03.2 [degF]MD Susan Ayala Work Phone: 1(497)[address] [place], [place] 5723510-10-2024 13:01-0400 Body orexro63.12 kgMD Susan Ayala Work Phone: 1(119)[address] [place], [place] 5723510-10-2024 13:01-0400 Diastolic blood gqilrvii30 mm[Hg]MD Susan Ayala Work Phone: 1(383)[address] [place], [place] 5723510-10-2024 13:01-0400 Heart rate82 /minMD Susan Ayala Work Phone: 1(674)[address] [place], [place] 5723510-10-2024 13:01-0400 Respiratory rate20 /minMD Susan Ayala Work Phone: 1(196)[address] [place], [place] 5723510-10-2024 13:01-0400 SaO2% (BldA) [Mass fraction]100 %MD Susan Ayala Work Phone: 1(860)[address] [place], [place] 5723510-10-2024 13:01-0400 Systolic blood jzsouazy906 mm[Hg]MD Susan Ayala Work Phone: 1(305)[address] [place], [place] 5723508-28-2024 13:56-0400 Body sdurnseyghb47.1 [degF]MD Susan Ayala Work Phone: 1(000)[address] [place], [place] 5723508-28-2024 13:56-0400 Body .12 kgMD Susan Ayala Work Phone: 1(588)[address] [place], [place] 5723508-28-2024 13:56-0400 Diastolic blood zaokjtsm64 mm[Hg]MD Susan Ayala Work Phone: [facility]08-28-2024 13:56-0400 Heart tpti333 /minMD Susan Ayala Work Phone: [facility]08-28-2024 13:56-0400 Respiratory rate16 /minMD Susan Ayala Work Phone: [facility]08-28-2024 13:56-0400 SaO2% (BldA) [Mass fraction]98 %MD Susan Ayala Work Phone: [facility]08-28-2024 13:56-0400 Systolic blood gnugqvta452 mm[Hg]MD Susan Ayala Work Phone: [facility]08-22-2024 13:13-0400 Body .6 cmGilson Portillo DPM Work Phone: [facility]ansonIfrhgajhzp39-55-7552 13:13-0400Body mass index (BMI) [Ratio]28.15 kg/q9RqackucjGilson Portillo DPM Work Phone: 1(901)150-[facility]ansonVmhtormyrs03-51-7728 13:13-0400Body .39 kgGilson Portillo DPM Work Phone: [facility]ansonScsrurmpbz16-36-6878 13:13-0400Diastolic blood utxibpej49 mm[Hg]Gilson Portillo DPM Work Phone: [facility] BransonRzgdrfibio52-81-8202 13:13-0400Heart rate89 /min Gilson Portillo DPM Work Phone: [place] [address]Frsltcsyby97-33-4822 13:13-0400Systolic blood liqyeosp260 mm[Hg]Gilson Portillo DPM Work Phone: [place] [address]Gcednkqhpi04-53-2032 09:56-0400Body mjygva538.56 cmMD Susan Ayala Work Phone: [facility]08-15-2024 09:56-0400 Body mass index (BMI) [Ratio]27.1 kg/m2MD Susan Ayala Work Phone: 1(522)[address]08-15-2024 09:56-0400 Body obazstvbhgy59.9 [degF]MD Susan Ayala Work Phone: 1(663)710[address]08-15-2024 09:56-0400 Body .66 kgMD Susan Ayala Work Phone: 1419)[address] [place], [place] 5723508-15-2024 09:56-0400 Diastolic blood qmjhitut58 mm[Hg]MD Susan Ayala Work Phone: 1(085)[address] [place], [place] 5723508-15-2024 09:56-0400 Heart rate95 /minMD Susan Ayala Work Phone: 1(369)[address] [place], [place] 5723508-15-2024 09:56-0400 Respiratory rate20 /minMD Susan Ayala Work Phone: 1(753)[address] [place], [place] 5723508-15-2024 09:56-0400 SaO2% (BldA) [Mass fraction]100 %MD Susan Ayala Work Phone: 1(246)[address] [place], [place] 5723508-15-2024 09:56-0400 Systolic blood ysenuqig838 mm[Hg]MD Susan Ayala Work Phone: 1(523)[address] [place], [place] 5723507-30-2024 09:05-0400 Diastolic blood urngpraj17 mm[Hg]MD Susan Ayala Work Phone: 1(419)[address]07-30-2024 09:05-0400 Heart rate66 /minMD Susan Ayala Work Phone: 1419)[address]07-30-2024 09:05-0400 Respiratory rate20 /minMD Susan Ayala Work Phone: 1(717)[address] [place], [place] 5723507-30-2024 09:05-0400 SaO2% (BldA) [Mass fraction]100 %MD Susan Ayala Work Phone: 1(660)[address]07-30-2024 09:05-0400 Systolic blood lmsyvunt195 mm[Hg]MD Susan Ayala Work Phone: 1(734)[address]07-15-2024 08:09-0400 Body lakere792.56 cmMD Susan Ayala Work Phone: 1(436)[address]07-15-2024 08:09-0400 Body lekgzz86.84 kgMD Susan Ayala Work Phone: 1(097)[address]06-18-2024 12:53-0400 Body emnqud396.56 cmMD Susan Ayala Work Phone: 1(624)[address]06-18-2024 12:53-0400 Body mass index (BMI) [Ratio]27.8 kg/m2MD Susan Ayala Work Phone: 1(172)727[address]06-18-2024 12:53-0400 Body czumigwaebk55.9 [degF]MD Susan Ayala Work Phone: 1(140)[address]06-18-2024 12:53-0400 Body yefzeg14.48 kgMD Susan Ayala Work Phone: 1(280)[address]06-18-2024 12:53-0400 Diastolic blood xlqimeuz15 mm[Hg]MD Susan Ayala Work Phone: 1(815)[address]06-18-2024 12:53-0400 Heart rate85 /minMD Susan Ayala Work Phone: 1(857)057[address]06-18-2024 12:53-0400 Respiratory rate16 /minMD Susan Ayala Work Phone: 1(518)107-[address] [place], [place] 3833006-18-2024 12:53-0400 SaO2% (BldA) [Mass fraction]98 %MD Susan Ayala Work Phone: 1(802)[address]06-18-2024 12:53-0400 Systolic blood ttyffjdr906 mm[Hg]MD Susan Ayala Work Phone: 1(129)[address]06-05-2024 13:21-0400 Body .56 cmMD Susan Ayala Work Phone: 1(263)457-[address] [place], [place] 3833006-05-2024 13:21-0400 Body mass index (BMI) [Ratio]28.3 kg/m2MD Susan Ayala Work Phone: 1(756)[address]06-05-2024 13:21-0400 Body lvmllmeltzi06 [degF]MD Susan Ayala Work Phone: 1(092)[address]06-05-2024 13:21-0400 Body osyaac98.84 kgMD Susan Ayala Work Phone: 1(347)[address]06-05-2024 13:21-0400 Diastolic blood ivavdddd63 mm[Hg]MD Susan Ayala Work Phone: 1(861)[address]06-05-2024 13:21-0400 Heart xaxu125 /minMD Susan Ayala Work Phone: 1(571)[address]06-05-2024 13:21-0400 Respiratory rate20 /minMD Susan Ayala Work Phone: 1(267)[address]06-05-2024 13:21-0400 SaO2% (BldA) [Mass fraction]98 %MD Susan Ayala Work Phone: 1(167)[address]06-05-2024 13:21-0400 Systolic blood kyczklyu493 mm[Hg]MD Susan Ayala Work Phone: 1(345)06[address]05-28-2024 13:01-0400 Body yrwdxn694.56 cmMD Susan Ayala Work Phone: 1(302)[address]05-28-2024 13:01-0400 Body mass index (BMI) [Ratio]28.5 kg/m2MD Susan Ayala Work Phone: 1(872)7[address]05-28-2024 13:01040 Body nmjfaf73.29 kgMD Susan Ayala Work Phone: 1(423)12533 [address]05-28-2024 13:01-0400 Diastolic blood mm[Hg]MD Susan Ayala Work Phone: 1(114)361-33[facility]05-28-2024 13:01-0400 Heart rate83 /minMD Susan Ayala Work Phone: 1(311)096[address]05-28-2024 13:01-0400 Systolic blood azezdeza331 mm[Hg]MD Susan Ayala Work Phone: 1(587)[address]05-16-2024 10:59-0400 Body hyuwbk322.56 cmMD Susan Ayala Work Phone: 1(896)[address]333 [address]05-16-2024 10:59-0400 Body mass index (BMI) [Ratio]28.1 kg/m2MD Susan Ayala Work Phone: 1(204)687[address]05-16-2024 10:59-0400 Body tpkqemnxjrx48 [degF]MD Susan Ayala Work Phone: 1(570)[address]05-16-2024 10:59-0400 Body iedzmm68.38 kgMD Susan Ayala Work Phone: 1(322)[address]05-16-2024 10:59-0400 Diastolic blood lpmsfids93 mm[Hg]MD Susan Ayala Work Phone: 1(641)[address]05-16-2024 10:59-0400 Heart rate77 /minMD Susan Ayala Work Phone: 1(410)794[address]05-16-2024 10:59-0400 Respiratory rate18 /minMD Susan Ayala Work Phone: 1(908)[address]05-16-2024 10:59-0400 SaO2% (BldA) [Mass fraction]100 %MD Susan Ayala Work Phone: 1(141)70233 [address]05-16-2024 10:59-0400 Systolic blood mm[Hg]MD Susan Ayala Work Phone: 1(058)23833 [address]04-23-2024 13:44-0400 Diastolic blood jxvtydfc90 mm[Hg]MD Susan Ayala Work Phone: 1(871)265-[address] [place], [place] 3833004-23-2024 13:44-0400 Heart rate67 /minMD Susan Ayala Work Phone: 1(109)[address]04-23-2024 13:44-0400 Respiratory rate16 /minMD Susan Ayala Work Phone: 1(663)24233 [address]04-23-2024 13:44-0400 SaO2% (BldA) [Mass fraction]98 %MD Susan Ayala Work Phone: 1(139)38933 [address]04-23-2024 13:44-0400 Systolic blood rkxtsygm246 mm[Hg]MD Susan Ayala Work Phone: 1(357)[address] [place], [place] 5723504-23-2024 12:59-0400 Body ecacanbkjal28 [degF]MD Susan Ayala Work Phone: 1(932)[address] [place], [place] 5723504-23-2024 12:29-0400 Inhaled oxygen flow rate8 L/minMD Susan Ayala Work Phone: 1(448)[address] [place], [place] 5723504-23-2024 11:31-0400 Body nyjgcq39.84 kgMD Susan Ayala Work Phone: 1(232)[address] [place], [place] 5723504-23-2024 11:15-0400 Body lfgaoa163.56 cmMD Susan Ayala Work Phone: 1(186)[address] [place], [place] 5723504-05-2024 10:40-0400 Body .56 cmMD Susan Ayala Work Phone: 1(672)[address]33 [address]04-05-2024 10:40-0400 Body mass index (BMI) [Ratio]28.1 kg/m2MD Susan Ayala Work Phone: 1(304)[address]04-05-2024 10:40-0400 Body zgapaqpujgk19.5 [degF]MD Susan Ayala Work Phone: 1(784)67533 [address]04-05-2024 10:40-0400 Body myrmet33.44 kgMD Susan Ayala Work Phone: 1(951)31733 [address]04-05-2024 10:40-0400 Diastolic blood leonpnqx21 mm[Hg]MD Susan Ayala Work Phone: 1(090)829-20[facility]04-05-2024 10:40-0400 Heart rate85 /minMD Susan Ayala Work Phone: 1(743)256-21[facility]04-05-2024 10:40-0400 Systolic blood qlknzpfe614 mm[Hg]MD Susan Ayala Work Phone: 1(601)346-[address] [place], [place] 3833003-26-2024 13:50-0400 Diastolic blood ndavakgq45 mm[Hg]MD Susan Ayala Work Phone: 1(260)34533 [address]03-26-2024 13:50-0400 Heart rate72 /minMD Susan Ayala Work Phone: 1(021)110[address]03-26-2024 13:50-0400 Respiratory rate16 /minMD Susan Ayala Work Phone: 1(290)[address]03-26-2024 13:50-0400 SaO2% (BldA) [Mass fraction]100 %MD Susan Ayala Work Phone: 1(066)43033 [address]03-26-2024 13:50-0400 Systolic blood mm[Hg]MD Susan Ayala Work Phone: 1(040)559[address]03-26-2024 12:58-0400 Body cbiqiozskjm12.4 [degF]MD Susan Ayala Work Phone: 1(480)[address]03-26-2024 12:33-0400 Inhaled oxygen flow rate8 L/minMD Susan Ayala Work Phone: 1(349)[address]03-26-2024 11:26-0400 Body ncwrne369.56 cmMD Susan Ayala Work Phone: 1(218)[address]333 [address]03-26-2024 11:26-0400 Body mass index (BMI) [Ratio]28.3 kg/m2MD Susan Ayala Work Phone: 1(416)346-[address] [place], [place] 3833003-26-2024 11:26-0400 Body qhyvob88.84 kgMD Susan Ayala Work Phone: 1(200)444[address]03-05-2024 14:28-0500 Body wwmlii649.56 cmMD Susan Ayala Work Phone: 1(245)[address]03-05-2024 14:28-0500 Body mass index (BMI) [Ratio]28.5 kg/m2MD Susan Ayala Work Phone: 1(862)[address] [place], [place] 5723503-05-2024 14:28-0500 Body .46 kgMD Susan Ayala Work Phone: 1(260)[address] [place], [place] 5723503-05-2024 14:28-0500 Diastolic blood kziweozh34 mm[Hg]MD Susan Ayala Work Phone: 1(716)[address]33 [address]03-05-2024 14:28-0500 Heart rate93 /minMD Susan Ayala Work Phone: 1(816)[address] [place], [place] 5723503-05-2024 14:28-0500 Systolic blood ddznynin962 mm[Hg]MD Susan Ayala Work Phone: 1(831)[address] [place], [place] 5723501-09-2024 10:00-0500 Body aofijphvupq61.2 [degF]MD Susan Ayala Work Phone: 1(410)12433 [address]01-09-2024 10:00-0500 Diastolic blood tfdodiyb84 mm[Hg]MD Susan Ayala Work Phone: 1(045)[address]01-09-2024 10:00-0500 Heart rate87 /minMD Susan Ayala Work Phone: 1(389)[address]01-09-2024 10:00-0500 Respiratory rate18 /minMD Susan Ayala Work Phone: 1(019)[address] [place], [place] 5723501-09-2024 10:00-0500 SaO2% (BldA) [Mass fraction]99 %MD Susan Ayala Work Phone: 1(053)75633 [address]01-09-2024 10:00-0500 Systolic blood mm[Hg]MD Susan Ayala Work Phone: [facility]12-26-2023 16:16-0500 Body xujgzh300.56 cmMD Susan Ayala Work Phone: [facility]12-26-2023 16:16-0500 Body hotjmr43.7 kgMD Susanoctavia Ayala Work Phone: [facility]11-20-2023 14:00-0500 Body szchig353.56 cmSusan Ayala Other [employer] Other 11-20-2023 14:00-0500Body mass index (BMI) [Ratio] 28.49 kg/q7KjhgdiSusan Ayala Other [employer] Other 11-20-2023 14:00-0500Body bzpnyh36.3 kgSusan Ayala Other [employer] Other 11-20-2023 14:00-0500Diastolic blood rycwhbsm57 mm[Hg] Susan Ayala Other [employer] Other 11-20-2023 14:00-0500Systolic blood abvgqphb810 mm[Hg] Ssuan Ayala Other [employer] Other 10-02-2023 10:30-0400Body .56 cmSusan Ayala Other [employer] Other 10-02-2023 10:30-0400Body mass index (BMI) [Ratio] 29.01 kg/b2CcrjzfSusan Ayala Other [employer] Other 10-02-2023 10:30-0400Body ufkjnc42.66 kgSusan Ayala Other [employer] Other 10-02-2023 10:30-0400Diastolic blood lcywcigy23 mm[Hg] Susan Ayala Other [employer] Other 10-02-2023 10:30-0400Systolic blood fsflyrzq515 mm[Hg] Susan Ayala Other [employer] Other 08-23-2023 09:30-0400Body gshisl741.56 cmSusan Ayala Other [employer] Other 08-23-2023 09:30-0400Body mass index (BMI) [Ratio] 28.15 kg/g4JcakseSusan Ayala Other [employer] Other 08-23-2023 09:30-0400Body owhnwg94.39 kgSusan Ayala Other [employer] Other 08-23-2023 09:30-0400Diastolic blood drzltzay33 mm[Hg] Susan Ayala Other [employer] Other 08-23-2023 09:30-1522QvC4% (BldA) [Mass fraction]96 % Susan Ayala Other [employer] Other 08-23-2023 09:30-0400Systolic blood emjgwtrh496 mm[Hg] Susan Ayala Other [employer] Other 05-09-2023 15:00-0400Body pwmvus992.56 cmSusan Ayala Other [employer] Other 05-09-2023 15:00-0400Body mass index (BMI) [Ratio] 28.32 kg/y7IhqreaSusan Ayala Other [employer] Other 05-09-2023 15:00-0400Body ghurru14.84 kgSusan Ayala Other [employer] Other 05-09-2023 15:00-0400Diastolic blood yhzhcctp28 mm[Hg] Susan Ayala Other [employer] Other 05-09-2023 15:00-3004LoV0% (BldA) [Mass fraction]98 % Susan Ayala Other [employer] Other 05-09-2023 15:00-0400Systolic blood mm[Hg] Susan Ayala Other [employer] Other 03-01-2023 10:00-0500Body exfbzf928.56 cmSusan Jamie Other [employer] Other 03-01-2023 10:00-0500Body mass index (BMI) [Ratio] 28.66 kg/x1Pgkbdq Jamie Other [employer] Other 03-01-2023 10:00-0500Body .75 kgSusan Jamie Other [employer] Other 03-01-2023 10:00-0500Diastolic blood dymwtuue38 mm[Hg] Susan Ayala Other [employer] Other 03-01-2023 10:00-0771LcK5% (BldA) [Mass fraction]98 % Susan Ayala Other [employer] Other 03-01-2023 10:00-0500Systolic blood rbwwiccl810 mm[Hg] Susan Ayala Other [employer] Other 02-07-2023 11:00-0500Body vzytgj174.56 cmSusan Ayala Other [employer] Other 02-07-2023 11:00-0500Body mass index (BMI) [Ratio] 29.01 kg/r8OvdilySusan Ayala Other [employer] Other 02-07-2023 11:00-0500Body hijouy89.66 kgSusan Ayala Other [employer] Other 02-07-2023 11:00-0500Diastolic blood xibvklmc28 mm[Hg] Susan Ayala Other [employer] Other 02-07-2023 11:00-6641DlA4% (BldA) [Mass fraction]98 % Susan Ayala Other [employer] Other 02-07-2023 11:00-0500Systolic blood hwkhfcof297 mm[Hg] Ssuan Ayala Other [employer] Other Encounters Encounter DateEncounter TypeCare ProviderFacilityStart: 75-08-4869qnjqwfsmtc Gavin PlazaFacility:[facility] 02-12[facility]2025 End: 96-71-9326Fsojbsk encounter procedurecarlitos Velazquez [facility] Work Phone: Start: 65-70-5938Dhtjkymana RecurringChristine Mtz MD-[facility] Work Phone: Start: 02-12-2025 End: 85-23-6852rxiiogjgiwEkhsil E Braun MD Work Phone: [facility] Work Phone: Start: 06-65-1975Wld-patient / Non-visitMhd Jose Luis [facility]quezMad[facility] Work Phone: Start: 02-03-2025 End: 04-35-6824orovwggoffRxukyj E Braun MD Work Phone: [facility] Work Phone: Start: 02-03-2025 End: 85-93-4329Edwwvrf encounter procedureSusan Ayala MD-[facility] Work Phone: Start: 10-03-2024 End: 86-42-0145Wvjfpv flowsmikeNicsaturnino Post Brown DPM Work Phone: [facility] PODIATRYStart: 10-03-2024 End: 29-29-2837Zfefzv flowsheetNicholas A Brown DPM Work Phone: [facility] PODIATRYStart: 10-03-2024 End: 70-83-7283Dldlxz outpatient visit 15 minutesNicholas A Brown DPM Work Phone: [facility] PODIATRYComment on above:Xerosis cutis (Primary Dx); Onychocryptosis; Toe pain, right; Pain due to onychomycosis of toenails of both feetStart: 10-03-2024 End: 00-59-8676lpdcrnfepoXKGRFEDL Sejal BROWNNot AvailableStart: 09-05-2024 End: 14-17-3951Dgvutm flowsheetNicholas A Brown DPM Work Phone: no[facility] CI PODIATRYStart: 09-05-2024 End: 15-19-8422Fuasoz flowsheetNicholas A Brown DPM Work Phone: [facility] PODIATRYStart: 09-05-2024 End: 90-82-2740Qxpgzz outpatient visit 15 minutesNicholas A Brown DPM Work Phone: [facility] PODIATRYComment on above:Xerosis cutis (Primary Dx); Onychocryptosis; Toe pain, rightStart: 09-05-2024 End: 56-01-3391owmolfogpcWKFQITFZ A BROWNNot AvailableStart: 08-14-2024 End: 75-38-7833lehfibedpgSguuii E Braun MD Work Phone: [facility] Work Phone: Start: 08-14-2024 End: 75-79-9505Daywqbd encounter procedureSusan Ayala MD Work Phone: [facility] Work Phone: Start: 74-83-1422Tea-patient / Non-visitSusan Ayala MD Work Phone: [facility] Work Phone: Start: 07-18-2024 End: 49-07-2813imclbeghjaAglzub E Braun MD Work Phone: [facility] Work Phone: Start: 07-18-2024 End: 68-45-0047Worjaal encounter Joselyn Ayala MD Work Phone: [facility] Work Phone: Start: 70-35-4890Dterqhnqdn RecurringSusan Ayala MD Work Phone: [facility] CredibleStart: 06-11-2024 End: 35-81-5696wmcncsesikGmhvmv E Braun MD Work Phone: [facility] Work Phone: Start: 06-11-2024 End: 03-62-4532Vtwdkgk encounter Joselyn Ayala MD Work Phone: [facility] Work Phone: Start: 06-45-2460Sjtqrxz encounter statusSusan Ayala MD Work Phone: [facility] 05-24-2024 End: 57-08-2884asnfscjaxaAivljd E Braun MD Work Phone: [facility] Work Phone: Start: 05-24-2024 End: 26-87-1431Upeswhkgm for general adult medical examination without abnormal findingsSusan Ayala MD Work Phone: [facility] 05-24-2024 End: 59-57-5386Ebxwqza encounter procedureSusan Ayala MD Work Phone: [facility] Work Phone: Start: 67-90-3239Volmdcynbn RecurringSusan Ayala MD Work Phone[facility] Work Phone: Start: 05-23-2024 End: 26-18-0287qlfawpqygiUudhhp E Braun MD Work Phone: [facility] Work Phone: Start: 05-23-2024 End: 57-54-8424Jyjdodh encounter procedureSusan Ayala MD Work Phone: [facility] Work Phone: Start: 05-17-2024 End: 97-69-4577gjuvqmxqtaUfpkvz E Braun MD Work Phone: [facility] Work Phone: Start: 05-17-2024 End: 41-89-0606Iysxybv encounter procedureSusan Ayala MD Work Phone: [facility] Work Phone: Start: 78-69-3004Gwi-patient / Non-visitSusan Ayala MD Work Phone: [facility]Mad[facility] Work Phone: Start: 05-14-2024 End: 03-10-8926Axnfmgzev encounterChristy Quick MD Work Phone: [facility] ENTStart: 73-56-7305Wwwhetthgp Henok Ayala MD Work Phone: [facility] CredibleStart: 88-34-2865Lvqpbveakp Henok Ayala MD Work Phone: [facility] CredibleStart: 04-10-2024 End: 04-92-2614Mfggri flowsheetChristy Quick MD Work Phone: [facility] ENTStart: 04-10-2024 End: 82-30-7703Hkznlm flowsheetChristy Quick MD Work Phone: [facility] ENTStart: 04-10-2024 End: 05-04-6235Mlkukq outpatient new 45 minutesChristy Quick MD Work Phone: [facility] CI ENTComment on above: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); ETD (Eustachian tube dysfunction), rightStart: 04-10-2024 End: 97-12-3499Yzgplsbn SupportAngelica Hunter [facility] Work Phone: [facility] AUDComment on above: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); Tinnitus, rightStart: 03-25-2024 End: 72-97-2434opspbwxhviQlwyas E Braun MD Work Phone: [facility] Work Phone: Start: 03-25-2024 End: 04-67-6174Tuhvmrr encounter Joselyn Ayala MD Work Phone: [facility] Work Phone: Start: 36-81-4004Rgcfpvilra Henok Ayala MD Work Phone: [facility] Work Phone: Start: 03-22-2024 End: 79-33-9708htgehgpyisTrhnpm E Braun MD Work Phone: [facility] Work Phone: Start: 03-22-2024 End: 22-51-0450Iqnpaop encounter Joselyn Ayala MD Work Phone: [facility] Work Phone: Start: 03-16-2024 End: 33-22-1023fohupmqlxxWypvzm E Braun MD Work Phone: [facility] Work Phone: Start: 03-16-2024 End: 14-31-7631Jzmqisp encounter Joselyn Ayala MD Work Phone: [facility] Work Phone: Start: 03-07-2024 End: 69-78-6208Retyfz flowsSalima Portillo DPM Work Phone: [facility] CI PODIATRYStart: 03-07-2024 End: 52-33-7201Oixuar Ruddy Portillo DPM Work Phone: [facility] PODIATRYStart: 03-07-2024 End: 77-64-7074Hyntfrk encounter procedureGilson Portillo DPM Work Phone: [facility] PODIATRYComment on above:Pain due to onychomycosis of toenails of both feet (Primary Dx)Start: 03-07-2024 End: 38-16-1748potrawbwmtORQSBTQT A BROWNNot AvailableStart: 02-27-2024 Registered Henok Ayala MD Work Phone: [facility] CredibleStart: 02-20-2024 End: 11-08-3253abwkjivvjyXCJohn Ayala Work Phone: [facility] Work Phone: Start: 02-20-2024 End: 90-17-4235Wbombuh encounter procedureMD Susan Ayala Work Phone: [facility] Work Phone: Start: 36-77-8919Yvmntiewno RecurringMD Susan Ayala Work Phone[facility] Work Phone: Start: 02-15-2024 End: 91-46-3806ldgezdxataMG Susan Annette Ayala Work Phone: [facility] Work Phone: Start: 02-15-2024 End: 53-35-1972Zjikszn encounter procedureMD Susan Ayala Work Phone: [facility] Work Phone: Start: 14-34-2738Hon-patient / Non-visitMD Susan Ayala Work Phone: [facility] Work Phone: Start: 63-52-5943Wnrhsizmmf RecurringMD Susan Ayala Work Phone: [facility] CredibleStart: 01-03-2024 End: 24-98-4346trxsgwseyePW Susan Bryant Ayala Work Phone: [facility] Work Phone: Start: 01-03-2024 End: 89-18-4038Muhzudz encounter procedureMD Susan Ayala Work Phone: [facility] Work Phone: Start: 32-29-9422Larryaftsp RecurringMD Susan Ayala Work Phone[facility] Work Phone: Start: 12-28-2023 End: 86-79-6250Eulwbj flowsheetNicholas A Brown DPM Work Phone: [facility] PODIATRYStart: 12-28-2023 End: 65-04-5727Aqatrc flowsheetGilson Sejal Portillo DPM Work Phone: [facility] PODIATRYStart: 12-28-2023 End: 40-85-7222Ucurspn encounter procedureNicconstantinoangelo Portillo DPM Work Phone: [facility] PODIATRYComment on above:Onychomycosis (Primary Dx); Toe pain, bilateralStart: 12-28-2023 End: 51-69-7237ogyantxkvzQACTNXRE A BROWNNot AvailableStart: 36-15-8812Qxh- patient / Non-visitMD Susan Ayala Work Phone: [facility] Work Phone: Start: 12-21-2023 End: 54-60-9855obdrjwutenUW Susan Ayala Work Phone: [facility] Work Phone: Start: 12-21-2023 End: 11-40-9112Ksgemlm encounter procedureMD Susan Ayala Work Phone: [facility] Work Phone: Start: 33-85-0190Npsgcslpyc RecurringMD Susan Ayala Work Phone[facility] Work Phone: Start: 51-88-4290Kmqbidatch RecurringMD Susan Ayala Work Phone: [facility]ibleStart: 29-89-1849Yel-patient / Non-visitMD Susan Ayala Work Phone: [facility] Gastroenterology Work Phone: Start: 92-57-2394Vrl-patient / Non-visitMD Susan Ayala Work Phone: [facility] Gastroenterology Work Phone: Start: 12-05-2023 End: 42-96-1156Qnoesxpfj to same day surgery centerMD Susan Jamie Work Phone: [facility] Work Phone: Start: 12-05-2023 End: 54-05-7967dojxsrgipjHF Susanoctavia Ayala Work Phone: [facility] Work Phone: Start: 84-38-7890Xpxzqzassj RecurringMD Susan Ayala Work Phone: [facility] Work Phone: Start: 76-35-6831Zgz-patient / Non-visitMD Susan Jamie Work Phone: [facility] Work Phone: Start: 35-59-0048Vni-patient / Non-visitMD Susan Jamie Work Phone: [facility] Work Phone: Start: 08-28-5769Yla-patient / Non-visitMD Susan Ayala Work Phone: [facility] Work Phone: Start: 22-62-6518Klp-patient / Non-visitMD Susan Jamie Work Phone: [facility] Work Phone: Start: 53-67-3295Awg-patient / Non-visitMD Susan Ayala Work Phone: [facility] Work Phone: Start: 00-83-1179Fuw-patient / Non-visitMD Susan Ayala Work Phone: [facility] Work Phone: Start: 31-42-5329Zxx-patient / Non-visitMD Susan Ayala Work Phone: [facility] Work Phone: Start: 25-48-1502Ift-patient / Non-visitMD Susan Ayala Work Phone: [facility] Work Phone: Start: 03-23-3123Apuifjoqsq RecurringMD Susan Ayala Work Phone: [facility] CredibleStart: 10-25-2023 End: 57-70-6329qofrtilnhkTDBQEHQ H ITCADYNot AvailableStart: 10-24-2023 End: 11-41-7481Oddtqij encounter procedureMD Susan Ayala Work Phone: [facility] Work Phone: Start: 10-19-2023 End: 13-43-0818heirvpsurySUZHMTHZ A BROWNNot AvailableStart: 10-11-2023 End: 40-28-7743ktupnpadtoCT Susan Ayala Work Phone: [facility] Work Phone: Start: 10-11-2023 End: 30-71-2447Pdtkxiw encounter procedureMD Susan Ayala Work Phone: [facility] Work Phone: Start: 17-53-1419Zamdeaxnld RecurringMD Susan Ayala Work Phone: [facility] Work Phone: Start: 10-03-2023 End: 39-27-2031czahcauobuVA Susan Ayala Work Phone: [facility] Work Phone: Start: 10-03-2023 End: 51-39-3167Ygktlly encounter procedureMD Susan Ayala Work Phone: [facility] Work Phone: Start: 02-10-8493Hjh-patient / Non-visitMD Susan Ayala Work Phone: [facility] Work Phone: Start: 09-21-2023 End: 42-53-9815Habarwc encounter procedureMD Susan Ayala Work Phone: [facility] Work Phone: Start: 10-01-3723Frkgdnbzib RecurringMD Susan Ayala Work Phone: [facility] Work Phone: Start: 98-33-3963Yukvedcokx RecurringMD Susan Ayala Work Phone: [facility] CredibleStart: 08-29-2023 End: 21-38-6977Tuxdzcrsg to same day surgery centerMD Susan Ayala Work Phone: [facility]Start: 08-29-2023 End: 28-40-1314bsotpuhngaHI Susan Ayala Work Phone: [facility] Work Phone: Start: 08-11-2023 End: 27-67-1093snecrzblbdZH Susan Ayala Work Phone: [facility] Work Phone: Start: 08-11-2023 End: 91-03-6616Dxpguda encounter procedureMD Susan Ayala Work Phone: [facility] Work Phone: Start: 08-01-2023 End: 16-39-9152Uplfrubzr to same day surgery centerMD Susan Ayala Work Phone: [facility] CampusStart: 08-01-2023 End: 89-59-1872byizndugagAB Susan Ayala Work Phone: [facility] Work Phone: Start: 63-48-9985Hzb-patient / Non-visitMD Susan Ayala Work Phone: [facility] Work Phone: Start: 07-19-2023 End: 59-88-5924jdascoytypGL Susan Annette Jamie Work Phone: [facility] Work Phone: Start: 07-19-2023 End: 54-32-2682Ymrqwqs encounter procedureMD Hale Ayala Work Phone: [facility] Work Phone: Start: 07-12-2023 End: 45-61-4603Aylyctgfm to same day surgery centerMD Hale Ayala Work Phone: [facility] Cntr for Breast CarStart: 07-11-2023 End: 01-42-7636Lborsoc encounter procedureMD Susan Ayala Work Phone: [facility] Work Phone: Start: 50-64-0129Wywwnalvfe RecurringMD Susan Ayala Work Phone: [facility]- CredibleStart: 06-30-2023 End: 59-24-2020Pplnqjyjn Result EncounterFredric H Itzkowitz DO Work Phone: noms External Department UnsolicitedStart: 06-30-2023 End: 79-23-2586Ndcehcdpx Result EncounterFredric H Itzkowitz DO Work Phone: noms External Department UnsolicitedStart: 06-29-2023 End: 08-87-4152kluxabcsatFFMCIEQW ITZKOWITZSycamore Medical Center HospitalStart: 63-21-5054Lneznaxvfl RecurringMD Susan Ayala Work Phone: [facility] CredibleStart: 05-16-2023 End: 85-75-8148Srirssbfn to same day surgery centerMD Susan Ayala Work Phone: [facility] Work Phone: Start: 05-16-2023 End: 96-23-3421bygfpkrqbsCC Susan Ayala Work Phone: [facility] Work Phone: Start: 05-02-2023 End: 34-26-9336Gdgbmzv encounter procedureMD Susan Ayala Work Phone: [facility]-Wzpmptuh Testing Work Phone: Start: 04-10-2023 End: 32-66-6926kmwxnvhskrKbzavu Braun Other [employer] Other Start: 95-11-0823Ibagqtdwy encounterMarcia [facility] ClinicStart: 03-27-2023 End: 60-20-8576zvajmrtcgzZyqtja Jamie Other [employer] Other Start: 99-29-9062Zmredzq encounter procedureMarcia [facility] ClinicStart: 44-93-7124Mccdhebuv encounterMarcia [facility] ClinicStart: 03-21-2023 End: 69-65-8887fyjepzfzclWqqodl Jamie Other [employer] Other Start: 42-47-6133Eagdvkojy encounterMarcia [facility] ClinicStart: 03-10-2023(Televisit) TelevisitMarcia [facility] ClinicStart: 03-10-2023 End: 58-75-2691jjmwenpmaxSxyjmh Jamie Other [employer] Other Start: 03-06-2023 End: 48-95-5063isgamqkstwZsaqfo Ayala Other noMyfacepage Other Start: 04-56-2815Vfxgwjvjk encounterMarcia [facility] ClinicStart: 02-06-2023 End: 76-25-5817goiaowrypdOtkfab Ayala Other noMyfacepage Other Start: 66-45-8241Ofmeba outpatient visit 15 minutes Susan [facility] ClinicStart: 58-91-9137Fvcackmva encounterMarcia [facility] ClinicStart: 12-28-2022 End: 03-38-6782zjljxfpooeRatvhk Ayala Other noMyfacepage Other Start: 91-38-6304Tqkxju outpatient visit 15 minutes Susan [facility] ClinicStart: 09-13-2022 End: 53-16-6428vqoukueyfzStuzsw Ayala Other noMyfacepage Other Start: 29-10-8896Scpyqu outpatient visit 15 minutes Susan [facility] ClinicStart: 08-26-2022 End: 09-02-5203pyxlupufbqTO LITTLE STAFFORD .Facility:A3Jqfgi: 08-01-2022 End: 61-04-3019utycegzsatUM LITTLE STAFFORD .Facility:L5Gjgwq: 07-18-2022 End: 80-11-3716ufmkxrvoasBD LITTLE GLOVERK .Facility:L9Iwiax: 07-12-2022 End: 58-23-6615fuayabcqebYncwrl Ayala Other noMyfacepage Other Start: 31-83-7919Pfvvwjccf encounterMarcia [facility] ClinicStart: 07-06-2022 End: 75-66-8082etvguaprttZhcbxp Ayala Other noMyfacepage Other Start: 52-45-2343Ihjtyy outpatient visit 15 minutes Susan [facility] ClinicStart: 06-21-2022 End: 00-22-5799ihnopqqousWyphfe Braun Other noMyfacepage Other Start: 44-82-3291Xaspgatvw encounterSusan Nascimento [facility] ClinicStart: 19-84-0106Clshja outpatient visit 15 minutesSusan Nascimento [facility] ClinicStart: 06-14-2022 End: 06-30-6740lfxcbzhfdrME Susan Ayala Work Phone: [facility] Work Phone: Start: 06-14-2022 End: 18-24-6162Hkzdclxs ReferredMD Susan Ayala Work Phone: [facility] [place] Work Phone: Start: 21-09-0744Tvmpu health examinationSusan Ayala Other [employer] Other Start: 34-34-8995Jtwxjpcusmmdb examination normal Susan Ayala Other noNovomer [employer] Other Start: 04-21-2022 End: 55-08-0585xzlmebcnytTP SUSAN AYALAFacility:T1Kweqp: 04-14-2022 End: 96-27-1687vesgkafqycQIUCW SPROUTFacility:W7Kalkb: 03-28-2022 End: 85-69-3243orfpppfjotDS SUSAN AYALAFacility:Z9Miazb: 12-27-2021 End: 53-93-0468xslptnicplFCBVH SPROUTFacility:H1 Procedures DateProcedureProcedure DetailPerforming ClinicianStart: 33-39-6466XZMWEHDN FUNCTION TESTSAngelica Hunter CCC-A Work Phone: start: 84-04-2170Eystj Strep (POC)Susan Ayala MD Work Phone: start: 16-14-2974Wdknslbqr colonoscopyMD Susan Ayala Work Phone: Start: 78-24-8860Rkmhpffazo of left breastMD Susan Ayala Work Phone: Start: 49-67-7732Pjoulaejnx of left breastMD Susan Ayala Work Phone: Start: 59-64-3601Ifzuxqbpripa sentinel lymph node studyMD Susan Ayala Work Phone: Start: 36-24-2951ZqzrfgjokxpZoiovbxk Brown DPM Work Phone: Start: 37-50-3115Agfauohzujp of left breast specimenMD Susan Ayala Work Phone: Start: 21-95-6006Oevvtzmfs - localizationMD Susan Ayala Work Phone: Start: 59-58-9110Pyhzpxfkiguiikt of left breastMD Susan Ayala Work Phone: Start: 18-12-4885HPJ BREAST BILATERAL W WO CONTRAST Geraldo H Itcady DO Work Phone: Start: 21-48-2896Yjtf needle biopsy of breast using ultrasound guidanceMD Susan Ayala Work Phone: Start: 36-85-3127Sizytupwghm of left breastMD Susan Ayala Work Phone: Start: 22-55-4278Feuyfenujitebpx of left breastMD Susan Ayala Work Phone: Start: 49-95-3131Rgtxgvcsugdeugl of limbMD Susan Ayala Work Phone: Start: 55-56-7528Fcjatcvnqmt observation [Identifier] in Cervix by Cyto stainGilson Portillo DPM Work Phone: End: 69-87-4759Qxdpq screeningSusan Ayala Other Plan of Treatment DateCare ActivityDetailAuthorStart: 02-61-7551Civsaixdf for malignant neoplasm of cervixNOPR HealthcareStart: 04-09-2025 End: 05-25-3808Tfvnvpg encounter wwtoakgpw57/03/2025 2:00 PM EST Procedure Visit [facility] [address] [place] [address] Chel Mahoney PA [address] [place] [address] [facility] Kim OBGYNStart: 01-06-2025 Influenza vaccinationInfluenza Vaccine (#1)[facility] HealthcareStart: 10-03-2024 End: 40-80-4282Duqxets encounter ccmqqjopu24/29/2025 1:50 PM EDT Office Visit [facility] [address] [facility] [address] [place] [phone] Gilson Portillo, DPM [address] [address] Xerosis cutis (Primary Dx); Onychocryptosis; Toe pain, rightNOMS CI PODIATRYComment on above:Xerosis cutis (Primary Dx); Onychocryptosis; Toe pain, rightStart: 09-05-2024 End: 67-69-5295Xdjgmtr encounter rfvpauhev22/01/2025 10:40 AM EDT Office Visit [facility] [address] [facility] [address] [place] [address] Gilson Portillo DPM [address] [address] Pain due to onychomycosis of toenails of both feet (Primary Dx); Xerosis cutisNOMS CI PODIATRYComment on above:Pain due to onychomycosis of toenails of both feet (Primary Dx); Xerosis cutisStart: 34-57-1857Njpbxtjlo for malignant neoplasm of breast MammogramNOMS HealthcareStart: 05-16-2024 End: 60-60-8161Svmkfgj encounter batmjufha87/09/2025 1:50 PM EST Procedure Visit [facility] [address] [facility] [address] [place] [address] Gilson Portillo DPM [address] [id number] [facility] CI PODIATRYStart: 04-10-2024 End: 22-99-4513Pbavunt encounter szqummwqz76/04/2024 1:10 PM EST Office Visit [facility] [address] [facility] [address] [place] [address] Christy Quick MD [address] [facility] [address] [place] [address] ArrivedNOMS CI ENTComment on above:ArrivedStart: 03-07-2024 End: 09-21-7215Mdexhew encounter procedureNOMS CI PODIATRYComment on above:Pain due to onychomycosis of toenails of both feet (Primary Dx)Start: 01-07-2024 Influenza vaccinationInfluenza Vaccine (#1)[facility] HealthcareStart: 12-28-2023 End: 97-93-5898Dksncna encounter nubmircat15/22/2024 1:10 PM EDT Procedure Visit [facility] [address] [facility] [facility] [address] [place] [address] Gilson Portillo DPM [address] [address] Onychomycosis (Primary Dx); Toe pain, bilateralNOMS CI PODIATRYComment on above:Onychomycosis (Primary Dx); Toe pain, bilateralStart: 05-59-4484MbplgyslkNewark Hospitaltart: 32-37-6104KupeuodProMedica Memorial Hospital Work Phone: Start: 76-70-9423Hgdhpta [facility] Work Phone: Start: 82-39-6139VladbeegxMercer County Community Hospital Start: 08-29-2023 End: 70-17-6279VdhwnxpayNewark Hospitaltart: 97-05-9199ZusenqmumNewark Hospitaltart: 97-71-2995QuqyiaxseNewark Hospitaltart: 51-75-5026Yqvzmikzsm of left breastOR Breast Bx, Lumpectomy, Mass Excision (Left)[facility] Hospitaltart: 98-66-1574FebblywvtNewark Hospitaltart: 59-74-7394Wouvslndf for malignant neoplasm of colonNOMS HealthcareAtopobium vaginae DNA [Presence] in Vaginal fluid by HIMANSHU with probe detectionMercer County Community HospitalBacterial vaginosis associated bacterium 2 DNA [Presence] in Vaginal fluid by HIMANSHU with probe detectionMercer County Community HospitalBasophils [#/volume] in Blood by Automated count [facility] HospitalBasophils/100 leukocytes in Blood by Automated [facility] CenterComprehensive metabolic 1999 panel - Serum or [facility] HospitalComprehensive metabolic 1999 panel - Serum or [facility] HospitalComprehensive metabolic 1999 panel - Serum or [facility] HospitalComprehensive metabolic 1999 panel - Serum or [facility] HospitalComprehensive metabolic 1999 panel - Serum or [facility] HospitalDXA Skeletal system.axial Views for bone densityMercer County Community HospitalDXA Skeletal system.axial Views for [facility] Eosinophils/100 leukocytes in Blood by Automated [facility] CenterErythrocyte distribution width [Ratio] by Automated [facility] CenterErythrocytes [#/volume] in [facility] HospitalHematocrit [Volume Fraction] of [facility] HospitalHemoglobin [Mass/volume] in [facility] HospitalHepatic function panelMercer County Community HospitalLeukocytes [#/volume] corrected for nucleated erythrocytes in Blood by Automated counMercer County Community HospitalLeukocytes [#/volume] in [facility] HospitalLymphocytes [#/volume] in Blood by Automated countMercer County Community Hospital Lymphocytes/100 leukocytes in Blood by Automated countMercer County Community HospitalMCH [Entitic mass] by Automated countMercer County Community Hospital MCHC [Mass/volume] by Automated [facility] CenterMCV [Entitic volume] by Automated [facility] CenterMegasphaera sp type 1 DNA [Presence] in Vaginal fluid by HIMANSHU with probe detectionMercer County Community HospitalMG Breast - bilateral ScreeningMercer County Community HospitalMG Breast - left DiagnosticMercer County Community HospitalMonocytes [#/volume] in Blood by Automated [facility] Monocytes/100 leukocytes in Blood by Automated [facility] CenterNeutrophils [#/volume] in Blood by Automated [facility] CenterNeutrophils/100 leukocytes in Blood by Automated [facility] CenterNucleated erythrocytes [Presence] in Blood by Automated [facility] CenterPatient EducationColon polyps Hemorrhoids (DC) Diverticulosis (DC) Know your MedFort Hamilton Hospital [facility] Work Phone: Patient referralSumma Health Ctr Work Phone: Platelet mean volume [Entitic volume] in Blood by Automated [facility] Medical CenterPlatelets [#/volume] in Blood [facility] Community HospitalXR Humerus - right ViewsAurora Health Care [facility] Immunizations Immunization DateImmunizationNotesCare GdxoxndlNfyjupyj87-97-9659cuvntpvvl, injectable, madin paulette canine kidney, preservative freeChristy Quick MD Work Phone: NOJohn J. Pershing VA Medical CenterHdtcqaccom46-44-6021hphpdnunf virus vaccine, unspecified formulationGilson Portillo DPM Work Phone: NOJohn J. Pershing VA Medical CenterGakokgkrun13-90-6812HYFID-73 mRNA Bivalent Booster (Pfizer)MD Susan Ayala Work Phone: [facility]10-24-2022Influenza, injectable, Madin [place] Canine Kidney, preservative free, quadrivalentChristy Quick MD Work Phone: NOJohn J. Pershing VA Medical CenterAdcuyvagdw57-86-2408fbtdrvbks virus vaccine, unspecified formulationNicholas Brown DPM Work Phone: [facility]ansonPkbwfpfnsg18-95-9052LJONN-28 Levon Pimentel (Pfizer)MD Susan Ayala Work Phone: [facility]04-22-2021COVID-19 mRNALevon (Pfizer)MD Susan Ayala Work Phone: [facility]04-02-2021COVID-19 mRNALevon (Pfizer)MD Susan Ayala Work Phone: [facility]09-18-2017influenza, injectable, quadrivalent, preservative freeHilary Dayne SEPULVEDA Work Phone: [facility]ansonFmykqdvywu32-55-2395vxlifwjhr, injectable, quadrivalent, preservative freeCaselary Dayne SEPULVEDA Work Phone: [facility]ansonFkqdddpcpl01-48-3311bmriftjke, seasonal, injectable, preservative freeHilary Dayne SEPULVEDA Work Phone: [facility]ansonJjrghvqcyz08-43-5253vzypxzzvn, seasonal, injectableHilary Dayne SEPULVEDA Work Phone: [facility]ansonNfwpycfebw42-16-7966lgercrdfbkwa polysaccharide vaccine, 23 valentHilary Dayne SEPULVEDA Work Phone: [facility] Payers DatePayer CategoryPayerPolicy [id number] 2023Self-pay [id number] MEDICARE ADVANTAGE HUMANA MEDICARE [id number] 2019-Present [address] [address] [place] [address] [id number] 2020Medicare (Managed Care) [id number] 2018Medicaid [id number] 2.16.840.1.162876.3.57[id number] 2.16.840.1.523630.3.57[id number] 2.16.840.1.303605.3.57[id number] 2.16.840.1.306449.3.57[id number] 2.16.840.1.788231.3.57[id number] 2.16840.1.992340.3.57[id number] 2.16.840.1.078318.3.579.[id number] 2.16.840.1.533755.3.57[id number] 2.16.840.1.537985.3.57[id number] 2.16.840.1.272947.3.57[id number] 2.16.840.1.508518.3.579.2.89[id number] 2.16.840.1.551744.3.57[id number] 2.16840.1.249362.3.579.2.488799-65-2524Bylysob2369280 2.16.840.1.225714.3.579.2.022007-74-2296Ytetngt2247572 2.0.1.522190.3.57[id number] 2.0.1.969071.3.579.2.1259 [id number] 2..[id number] MCR [id number] 45l8d8o5-2w05-25q0-364t-[id number] 2.0.1.7[id number] 2.1.091872.3.579.2.531 Social History DateTypeDetailFacilityTobacco smoking status NHISUnknown if ever smokedOhio Valley Hospital Work Phone: Start: 04-38-4285Njm Assigned At [facility] Hospitaltart: 12-28-2023 End: 06-62-6063Dda Assigned At [facility] [employer] Other Start: 04-05-2023 End: 62-40-6626Nuidhpw smoking status NHISEx-smoker (finding)[facility] End: 42-06-0658Lclbuzo of tobacco useCurrent smokerCox Branson End: 87-50-0297Jwznxcu of tobacco useCigarette SmokerNOMS HealthcareStart: 06-01-2023 End: 10-63-6381Cknqpsimv beverage intakeEx-drinker (finding)[facility] Start: 12-28-2023 End: 56-23-1490Snabald of Social functionNOMS HealthcareStart: 36-62-0446Xao assigned at birthNot on fileBLUE MOUNTAIN HOSPITAL HealthcareStart: 03-16-2024 End: 51-82-7683OryYyrnxg (finding)[facility] Hospitaltart: 37-42-6394Qrhlzfy use and exposureSmokeless tobacco non-userNOMS Healthcare Start: 09-33-6103OjlUfmodvCJOV Healthcare Medical Equipment Procedure CodeEquipment CodeEquipment Original TextEquipment IdentifierDates Biopsy, breast, with lumpectomyImaging lesion localization marker, implantable [id number] FDAStart: 08-01-2023 Goals DatePatient GoalDesired Activity/State Clinical Notes 06-14-2022 to 02-12-2025 Note Date & YzzcVyojCgbfjpej19-54-1853 Progress noteUnHCA [facility] [place] [address] Cancer Center Note Signed Patient: Melony Manley MR#: [id number] : 1965 Acct:[id number] Age/Sex: 60 / F Type: REG AMB [...] of 4 lymph node for invasive cancer. ER/ND reported from the 03/20/2023 core biopsy to be ER 100% positive, PER 60% positive and HER2 manolo 2+ by IHC, negative by FISH, Ki 67 low 5%. Surgical pathology report is not dictating the status of the ER, ND and HER2/manolo. Initial consult for medical oncology on 09/21/2023: We went over her new diagnosis of new left breast invasive ductal carcinoma, stage IIa, and we went over and discussed possible options of treatmentbased on the ER, ND and HER2/manolo status considering that she has [...] She had DEXA scan in 07/[address] [facility]. It revealed osteopenia with Tscore -0.6 [...] recurrence, which she would like done at [place]. We will call with results. Otherwise she [...] endocrine therapy currently. Her outside labs at [facility] on 08/02/2024 revealed hemoglobin 13.0 withnormal [...] therefore herthrombocytopenia is most likely related to Saucier and Seroquel but will monitor her CBC, [...] is reported in the surgeon note as ER/ND positive and HER2/manolo pending however there are [...] not report any status of the ER, ND and HER2/manolo, however Dr. García note to dictate that patient was ER/ND positive and HER2/manolo was pending. Left breast [...] nipple 08/01/23 Lumpectomy path: Pathological Diagnosis A. Adrian node, left axilla, biopsy: Metastatic carcinoma to [...] Examined (sentinel and non-sentinel): 4 Number of Adrian Nodes Examined: 4 pTNM CLASSIFICATION (AJCC 8th [...] it was ER positive on the percent, ND +60%, low Ki-67 of only 5%, HER2 [...] She had DEXA scan in 07/[address] [facility]. It revealed osteopenia with Tscore -0.6 [...] endocrine therapy currently. Her outside labs at [facility] on 08/02/2024 revealed hemoglobin 13.0 withnormal [...] No concerns voiced at time of intake. [facility] Medical History Medical History Diabetes Osteopenia Invasive ductal carcinoma of left breast Left breast cancer with T3 tumor, >5 cm in greatest dimension Ingrown right greater toenail removed Ingrown left greater toenail removed Fibrocystic breast determined by biopsy Vaginal atrophy Saucier use Elevated fasting glucose Former smoker Depression [...] Corrected WBC, (4.0-11.0) 5.0 10 3/uL 02/11/25, 11: 9 Hgb, (12.0-16.0) 12.8 g/dL 02/11/25, : Hct, (36.0-48.0) 39.9 % 02/11/25, MCV, (81.0-99.0) 88.7 fL 02/11/25, : RDW, (11.0-15.0) 14.5 % 02/11/25, : Plt Count, (150-450) 106 10 3/uL L 02/11/25, : Sodium, (136-145) 145 mmol/L 02/11/25, : Potassium, (3.5-5.1) 3.8 mmol/L 02/11/25, : BUN, (7.0-18.0) 10.0 mg/dL 02/11/25, : Creatinine, (0.55-1.02) 0.79 mg/dL 02/11/25, : Glucose, (74-106) 136 mg/dL H 02/11/25, : Calcium, (8.5-10.1) 9.5 mg/dL 02/11/25, : Total Bilirubin, (0.2-1.0) 0.3 mg/dL 02/11/25, : AST, (15-37) 27 U/L 02/11/25, : ALT, (14-59) 32 U/L 02/11/25, : Alkaline Phosphatase, (46-116) 88 U/L 02/11/25, Total Protein, (6.4-8.2) 7.7 g/dL 02/11/25, : Albumin, (3.4-5.0) 3.8 g/dL 02/11/25, : Social Determinants of Health Screening Will the [...] MD DD/ 1022 Signed By: 02/12/25 1049 [facility]09-29-2025 Evaluation note* Diagnosis Onset Date Resolution Status Admit Date Bipolar disorder, unspecified acuteSept2024 9:49amChronic kidney disease, stage 3 unspecifiedacute February 03, 2025 9:49amHyperlipidemiaacuteSept2024 9:49am HypothyroidismacuteSept2024 9:49amInvasive ductal carcinoma of left breastacuteSept2024 9:49amType 2 diabetes mellitus with hyperglycemiaacuteSept2024 9:49amBreast pain, leftacuteOctober 2024 10:19amInvasive ductal carcinoma of left breastacuteOctober 2024 10:19amOsteopeniaacuteOctober 2024 10:19am [facility] Work Phone: 1(335) 563-884305-29-2025 History of Present illness Narrative* Gilson Portillo, [...] and has been using prescribed or recommended auid-zwx-qdenfcl cream with improvement. Patient presents today with [...] Breast cancer (CMS/HCC) 03/2023 Left Breast IDC ER/ND+ Her 2 pend Ear problems HL (hearing [...] 8 Gilson Portillo DPM documented in this encounterCox [id number] History of Present illness Narrative* Gilson Portillo [...] Medical History: Diagnosis Date Bipolar 1 disorder ([facility]/HCC) Breast cancer ([facility]) 03/2023 Left Breast IDC ER/ND+ Her 2 pend Ear problems HL (hearing loss) Hyperlipidemia ([facility]) Hypothyroid ([facility]) Schizophrenia Medications: Current Outpatient Medications: alendronate (Fosamax) [...] or drainage to feet. Patient to consider ntgu-sed-uxubdrh treatments for medication or use of urea [...] antibiotic Gilson Portillo DPM documented in this encounterCox [id number] [facility] [place] [address] Cancer Center Note Signed Patient: Melony Manley MR#: [id number] : 1965 Acct:[id number] Age/Sex: 59 / F Type: REG AMB [...] of 4 lymph node for invasive cancer. ER/ND reported from the 03/20/2023 core biopsy to be ER 100% positive, PER 60% positive and HER2 manolo 2+ by IHC, negative by FISH, Ki 67 low 5%. Surgical pathology report is not dictating the status of the ER, ND and HER2/manolo. Initial consult for medical oncology on 09/21/2023: We went over her new diagnosis of new left breast invasive ductal carcinoma, stage IIa, and we went over and discussed possible options of treatmentbased on the ER, ND and HER2/manolo status considering that she has [...] She had DEXA scan in 07/[address] [facility]. It revealed osteopenia with Tscore -0.6 [...] recurrence, which she would like done at [place]. We will call with results. Otherwise she [...] bone density scan was in 07/2022 at [facility],next one will be 07/2024. She will need screening mammogram as well every March. For her mild chronic thrombocytopenia, it may be related to Saucier and Seroquelbut will monitor her CBC, CMP, [...] is reported in the surgeon note as ER/ND positive and HER2/manolo pending however there are [...] not report any status of the ER, ND and HER2/manolo, however Dr. García note to dictate that patient was ER/ND positive and HER2/manolo was pending. Left breast [...] nipple 08/01/23 Lumpectomy path: Pathological Diagnosis A. Adrian node, left axilla, biopsy: Metastatic carcinoma to [...] Examined (sentinel and non-sentinel): 4 Number of Adrian Nodes Examined: 4 pTNM CLASSIFICATION (AJCC 8th [...] it was ER positive on the percent, ND +60%, low Ki-67 of only 5%, HER2 [...] She had DEXA scan in 07/[address] [facility]. It revealed osteopenia with Tscore -0.6 [...] up with labs for review. Taking Letrzole. [facility] Medical History Medical History Diabetes Osteopenia Invasive ductal carcinoma of left breast Left breast cancer with T3 tumor, >5 cm in greatest dimension Ingrown right greater toenail removed Ingrown left greater toenail removed Fibrocystic breast determined by biopsy Vaginal atrophy Saucier use Elevated fasting glucose Former smoker Depression [...] 05/15/24 11:05/15/24 AST 27 U/L (15-37) 05/15/24 11:00 05/15/24 ALT 38 U/L (14-59) 05/15/24 11:00 05/15/24 Alkaline Phosphatase 105 U/L (46-116) 05/15/24 11:00 05/15/24 Total Protein 7.4 g/dL (6.4-8.2) 05/15/24 11:00 05/15/24 Albumin 4.0 g/dL (3.4-5.0) 05/15/24 11:00 05/15/24 Lactate Dehydrogenase 154 U/L (81-234) 05/15/24 11:00 05/15/24 Dictated By: Christine Velazquez MD DD/ 1143 Signed By: 05/23/24 1213 [facility]01-10-2025 Evaluation note* Diagnosis Onset Date Resolution Status Admit Date Sinusitis, acute maxillary acuteJanuary 2024 11:14amBreast pain, leftacuteJanuary 2024 11:41am Invasive ductal carcinoma of left breastacuteJanuary 2024 11:41am OsteopeniaacuteJanuary 2024 11:41amInvasive ductal carcinoma of left breastacuteJanuary 2024 1:23pmType 2 diabetes mellitus with hyperglycemia acuteMayuary 2024 1:23pmWellness examinationacuteJanuary 2024 1:23pm Bacterial conjunctivitis of right eyeacuteFebruary 2024 8:41am [facility] Work Phone: 1(960) 282-339601-10-2025 Evaluation note* Diagnosis Onset Date Resolution Status Admit Date Sinusitis, acute maxillary acuteJanuary 2024 11:14amBreast pain, leftacuteJanuary 2024 11:41am Invasive ductal carcinoma of left breastacuteJanuary 2024 11:41am OsteopeniaacuteJanuary 2024 11:41amInvasive ductal carcinoma of left breastacuteJanuary 2024 1:23pmType 2 diabetes mellitus with hyperglycemia acuteMayuary 2024 1:23pmWellness examinationacuteJanuary 2024 1:23pm Bacterial conjunctivitis of right eyeacuteFebruary 2024 8:41amURI (upper respiratory infection)acuteMarch 2024 1:13pmBreast pain, leftacuteApril 2024 11:21amInvasive ductal carcinoma of left breastacuteApril 2024 11:21amOsteopeniaacuteApril 2024 11:21am [facility] Work Phone: 1(299) 955-296801-07-2025 Telephone encounter Note* Telephone Encounter - Christy Quick MD - 05/14/2024 4:18 PM EST Send discharge note [facility] [id number] Miscellaneous Notes* Telephone Encounter - Christy Quick [...] 's appt, and MRI. documented in this encounterCox [id number] Telephone encounter Note* Telephone Encounter - Nazia Quick - 05/14/2024 1:24 PM EST Called pt/explained about the importance of having the MRI and appt with Dr Quick, pt said she does not want to have it done or schedule any appts. [facility] [id number] Telephone encounter Note* Telephone Encounter - Christy Quick MD - 05/14/2024 11:25 AM EST Advise patient she should still get the MRI because steroids can decrease swelling in a tumor that restores hearing, so having a tumor is not excluded by the hearing retuirning Cox [id number] Telephone encounter Note* Telephone Encounter - Naziagini Quick - 05/14/2024 11:18 AM EST Pt called in to cancel her appts due to her hearing coming back. Pt was scheduled with audio, 's appt, and MRI. [facility] [id number] History of Present illness Narrative* Christy Quick [...] left breast in female, estrogen receptor positive ([facility]) 05/19/2023 Abnormal mammogram 04/08/2024 Allergic rhinitis 04/08/2024 Breast pain, left 04/08/2024 Elevated fasting glucose 04/08/2024 GERD (gastroesophageal reflux disease) 04/08/2024 Hyperlipidemia ([facility]) 04/08/2024 Invasive ductal carcinoma of left breast ([facility]) 04/08/2024 Osteopenia 04/08/2024 Right acute otitis media 04/08/2024 Right arm pain 04/08/2024 Screening for colon cancer 04/08/2024 Stage 3 chronic kidney disease (HCC) ([facility]) 04/08/2024 Type 2 diabetes mellitus with hyperglycemia ([facility]) 04/08/2024 Resolved Ambulatory Problems Diagnosis Date Noted No Resolved Ambulatory Problems Past Medical History: Diagnosis Date Bipolar 1 disorder ([facility] Breast cancer ([facility]) 03/2023 Ear problems HL (hearing loss) Hypothyroid ([facility]) Schizophrenia ([facility]) Past Surgical History: Procedure Laterality Date BREAST [...] Pain - numeric: 8/10 documented in this [facility]12-04-2024 History of Present illness Narrative* ANDREW Rubio [...] 50 dBHL = 100% documented in this [facility]11-09-2024 Evaluation note* Diagnosis Onset Date Resolution Status Admit Date Right acute otitis media acuteNovember 2023 9:09amGeneralized body achesnoneactiveNovember 2023 9:09amSore throatnoneactiveNovember 2023 9:09amBreast pain, leftacute November 2023 10:25amInvasive ductal carcinoma of left breastacuteNovember 2023 10:25amOsteopeniaacuteNovember 2023 10:25amRight acute otitis mediaacuteNovember 2023 2:36pmSinusitis, acute maxillaryacuteJanuary 2024 11:14amBreast pain, leftacuteJanuary 2024 11:41amInvasive ductal carcinoma of left breastacuteJanuary 2024 11:41amOsteopeniaacuteJanuary 2024 11:41am [facility] Work Phone: 1(732) 931-712611-09-2024 Evaluation note* Diagnosis Onset Date Resolution Status [...] with hyperglycemiaacuteJanuary 2024 1:23pmWellness examinationacuteJanuary 2024 1:23pm [facility] Work Phone: 1(295) 286-212311-09-2024 Evaluation note* Diagnosis Onset Date Resolution Status [...] 1:23pmBacterial conjunctivitis of right eyeacuteFebruary 2024 8:41am [facility] Work Phone: 1(321) 598-695710-31-2024 History of Present illness Narrative* Gilsonmarek Portillo, DPM - 03/07/2024 1:30 PM EDT Patient: [...] Date Bipolar 1 disorder (CMS/HCC) Breast cancer ([facility]/HCC) 03/2023 Left Breast IDC ER/ND+ Her 2 pend Hyperlipidemia (CMS/HCC) Hypothyroid (CMS/HCC) Schizophrenia (CMS/[facility]) Medications: Current Outpatient Medications: alendronate (Fosamax) 70 [...] condition and treatment of condition. Continue with xvyn-kxh-opxsakv creams to feet p.r.n. Gilson Portillo DPM documented in this encounterCox [id number] Evaluation note* Diagnosis Onset Date Resolution Status Admit Date Right arm pain acuteOctober 2023 10:22amType 2 diabetes mellitus with hyperglycemiaacute February 20, 2024 10:22amRight acute otitis mediaacuteNovember 2023 9:09am Generalized body achesnoneactiveNov2023 9:09amSore throatnoneactive March 16, 2024 9:09amBreast pain, leftacuteNovember 2023 10:25am Invasive ductal carcinoma of left breastacuteNovember 2023 10:25am OsteopeniaacuteNovember 2023 10:25amRight acute otitis mediaacuteNovember 2023 2:36pm [facility] Work Phone: 1(959) 631-289908-28-2024 Evaluation note* Diagnosis Onset Date Resolution Status Admit Date Invasive ductal carcinoma of left breast acuteAugust 2023 1:43pmInvasive ductal carcinoma of left breastacute February 15, 2024 12:46pmOsteopeniaacuteOctober 2023 12:46pmRight arm painacuteOctober 2023 10:22amType 2 diabetes mellitus with hyperglycemia acuteOctober 2023 10:22amRight acute otitis mediaacuteNovember 2023 9:09amGeneralized body achesnoneactiveNovember 2023 9:09amSore throat noneactiveNovember 2023 9:09am [facility] Work Phone: 1(299) 200-158608-28-2024 Evaluation note* Diagnosis Onset Date Resolution Status [...] breastacute March 22, 2024 10:25amOsteopeniaacuteNovember 2023 10:25am [facility] Work Phone: 1([phone]) 407-572508-28-2024 Evaluation note* Diagnosis Onset Date Resolution Status [...] left breastacuteNovember 2023 10:25am OsteopeniaacuteNovember 2023 10:25am [facility] Work Phone: 1(674) 730-125308-22-2024 History of Present illness Narrative* Gilson Portillo, IDALMIS - 12/28/2023 1:10 PM EDT Patient: [...] Medical History: Diagnosis Date Bipolar 1 disorder ([facility]) Breast cancer ([facility]) 03/2023 Left Breast IDC ER/ND+ Her 2 pend Hyperlipidemia ([facility]/HCC) Hypothyroid ([facility]/HCC) Schizophrenia ([facility]) Medications: Current Outpatient Medications: alendronate (Fosamax) 70 [...] condition and treatment of condition. Continue with frel-qrl-buhfxuq creams to feet p.r.n. Gilson Portillo DPM documented in this encounterCox [id number] Chief complaint+Reason for visit Narrative* Chief Complaint [...] Invasive ductal carcinoma of left breast Osteopenia [facility] Work Phone: 1(160) 248-117307-30-2024 [facility]* Encounter Date Diagnosis Assessment Notes Treatment Notes Treatment Clinical Notes Mar, Invasive ductal carcinoma of lef t breast (ICD-10 - C50.912) Reviewed results. Grade 1. D/w daughter on speaker - phone. Appt made w Dr. García on 04/05 at 2pm. Path report and mamm reports sent to their office. [facility] Other 11-14-2023 Evaluation note* Encounter Date Diagnosis Assessment Notes Treatment Notes Treatment Clinical Notes Mar, Elevated triglycerides with high cholesterol (ICD-10 - E78.2) [facility] Other 11-03-2023 Evaluation note* Encounter Date Diagnosis [...] verbalized understanding and agreement with treatment plan. [facility] Other 10-02-2023 Evaluation note* Encounter Date Diagnosis Assessment Notes Treatment Notes Treatment Clinical Notes Feb, Abnormal mammogram of left breas t (ICD-10 - R92.8) [facility] Other 10-02-2023 Evaluation note* Encounter Date Diagnosis Assessment Notes Treatment Notes Treatment Clinical Notes Feb, Elevated triglycerides with high cholesterol (ICD-10 - E78.2) Called pharmacy. They do not carry the med she is interested in the [place]. Changed rx and sent to [facility] Other 08-23-2023 Evaluation note* Encounter Date Diagnosis Assessment Notes Treatment Notes Treatment Clinical Notes Dec, Elevated fasting glucose (ICD-10 - R73.01) Pt states Dr. Blanca is helping her wean the zyprexa. Will recheck labs listed below and return forOV in Apr. Dec,Hypothyroidism (ICD-10 - E03.9)Labs reviewed and normal. Continue present medication [facility] Other 05-09-2023 Evaluation note* Encounter Date Diagnosis Assessment Notes Treatment Notes Treatment Clinical Notes September, Skin candidiasis (ICD-10 - B37.2 ) Very mild erythema and discoloration. Recommend OTC Gold Valadez Powder. Call if not improving. [facility] Other 03-01-2023 Evaluation note* Encounter Date Diagnosis Assessment Notes Treatment Notes Treatment Clinical Notes Jul, Hypothyroidism (ICD-10 - E03.9) stable - chronic - continue present dose. Jul,Vaginal atrophy (ICD-10 - N95.2)Melony denies any further pain, vaginal bleeding or discomfort. Will call later today for her wellwoman exam with Dr. Stafford. Verbally consented to share records w him from our last office visit. [facility] Other 02-07-2023 Evaluation note* Encounter Date Diagnosis Assessment Notes Treatment Notes Treatment Clinical Notes Jun, Acute vaginitis (ICD-10 - N76.0) New problem - sent culture for yeast/BV/trich. will call in 1-2 days when results are back. [facility] Other Chief complaint+Reason for visit Narrative* Chief [...] Osteopenia Invasive ductal carcinoma of left breast [facility] Work Phone: evaluation noteNo assessment information available [facility] Work Phone: evaluation noteNo InformationNort [employer] Other Evaluation note* Diagnosis Onset Date Resolution Status Hematoma of breast following procedure acute [facility] Work Phone: Evaluation note* Diagnosis Onset Date Resolution Status Hematoma of breast following procedure acuteAllergic rhinitisacuteGERD (gastroesophageal reflux disease)acute Hyperlipidemiaacute [facility] Work Phone: Evaluation note* Diagnosis Onset Date Resolution Status Hematoma of breast following procedure acuteAllergic rhinitisacuteGERD (gastroesophageal reflux disease)acute HyperlipidemiaacuteInvasive ductal carcinoma of left breastacuteOsteopeniaacute [facility] Work Phone: evaluation note* Diagnosis Onset Date Resolution Status Allergic rhinitis acuteGERD (gastroesophageal reflux disease)acuteHyperlipidemiaacuteInvasive ductal carcinoma of left breastacuteOsteopeniaacuteScreening for colon cancer acuteType 2 diabetes mellitus with hyperglycemiaacuteInvasive ductal carcinoma of left breastacuteOsteopeniaacute [facility] Work Phone: Evaluation note* Diagnosis Onset Date Resolution Status Invasive ductal carcinoma of left breast acuteOsteopeniaacuteScreening for colon canceracuteType 2 diabetes mellitus with hyperglycemiaacuteInvasive ductal carcinoma of left breastacuteOsteopeniaacute Invasive ductal carcinoma of left breastacute [facility] Work Phone: evaluation note* Diagnosis Onset Date Resolution Status Screening for colon cancer acuteType 2 diabetes mellitus with hyperglycemiaacuteInvasive ductal carcinoma of left breastacuteOsteopeniaacuteInvasive ductal carcinoma of left breastacute Invasive ductal carcinoma of left breastacuteOsteopeniaacute [facility] Work Phone: Evaluation note* Diagnosis Onset Date Resolution Status Invasive ductal carcinoma of left breast acuteOsteopeniaacuteInvasive ductal carcinoma of left breastacuteInvasive ductal carcinoma of left breastacuteOsteopeniaacuteInvasive ductal carcinoma of left breastacute [facility] Work Phone: Evaluation note* Diagnosis Onset Date Resolution Status Invasive ductal carcinoma of left breast acuteOsteopeniaacuteInvasive ductal carcinoma of left breastacuteInvasive ductal carcinoma of left breastacuteOsteopeniaacute [facility] Work Phone: Evaluation note* Diagnosis Onset Date Resolution Status Invasive ductal carcinoma of left breast acuteOsteopeniaacuteInvasive ductal carcinoma of left breastacuteInvasive ductal carcinoma of left breastacuteOsteopeniaacuteRight arm painacute [facility] Work Phone: Evaluation note* Diagnosis Pain due to onychomycosis of toenails of both feet- Primary documented in this encounter [facility] HealthcareEvaluation note* Diagnosis Sudden idiopathic hearing loss of right ear with restricted hearing of left ear- Primary Tinnitus, right Unspecified tinnitus documented in this encounter [facility] HealthcareEvaluation note* Diagnosis Sudden idiopathic hearing loss of right ear with restricted hearing of left ear- Primary ETD (Eustachian tube dysfunction), right documented in this encounter [facility] HealthcareEvaluation note* Diagnosis Onychomycosis- Primary Dermatophytosis of nail Toe pain, bilateral documented in this encounter [facility] HealthcareEvaluation note* Diagnosis Xerosis cutis- Primary Other specified disease of sebaceous glands Onychocryptosis Ingrowing nail Toe pain, right Pain in soft tissues of limb documented in this encounter [facility] HealthcareEvaluation note* Diagnosis Xerosis cutis- Primary Other specified disease of sebaceous glands Onychocryptosis Ingrowing nail Toe pain, right Pain in soft tissues of limb Pain due to onychomycosis of toenails of both feet documented in this encounter [facility] HealthcareEvaluation note* Diagnosis Onset Date Resolution Status Admit Date Chronic kidney disease, stage 3 unspecif ied acuteSeptember 2024 9:49amHyperlipidemiaacuteSeptember 2024 9:49am HypothyroidismacuteSeptember 2024 9:49amType 2 diabetes mellitus with hyperglycemiaacuteSept2024 9:49am [facility] Work Phone: History and physical note Author Lisa Rubalcava [facility] December 05, 2023 7:53amNote Date/TimeJuly 2023 7:54[place] [address] Gastroenterology H&P Signed Patient: Melony Manley MR#: [id number] : 1965 Acct:[id number] Age/Sex: 58 / F Adm Date: 4 Loc: Room: Type: [facility] Attending Dr: Lisa Rubalcava DO Copies to: [...] signed by Lisa Rubalcava DO> 12/05/23 0753 [facility] Work Phone: History general Narrative - Reported* Type Description Date Medical History Gastroesophageal ref lux disease, esophagitis presence not specified Medical HistoryBipolar 1 disorder, depressedMedical HistoryAcquired hypothyroidismMedical HistoryHypercholesterolemiaMedical HistoryBMI 28.0-28.9,adultMedical HistoryHypothyroidismMedical HistoryChronic kidney disease, stage 3 unspecifiedMedical HistoryElevated fasting glucoseMedical HistoryPain of right upper armMedical HistoryLithium useMedical HistoryVaginal atrophySurgical Historytubal [id number] Historywisdom teethSurgical HistoryCATARACT EXTRACTION- LEFT01/2017Surgical HistoryDETACHED RETINE REPAIR (LEFT)urgical HistoryCATARACT EXTRACTION- RIGHT02/2017Hospitalization HistorySEE SURGICAL [facility] Other Hospital Discharge instructions Additional Instructions DISCHARGE [...] directed for pain unless a prescription was provided.[facility] Work Phone: Hospital Discharge instructions Additional [...] directed for pain unless a prescription was provided.[facility] Work Phone: Progress note Author Christine Velazquez [facility] December 21, 2023 10:26amNote Date/TimeAugust 2023 9:55[facility] [place] [address] Cancer Center Note Signed Patient: Melony Manley MR#: [id number] : 1965 Acct:[id number] Age/Sex: 58 / F Type: REG AMB Date of Service: 12/21/23 Copies to: Susan Ayala MD~ Assessment & Plan A/P (1) Invasive ductal carcinoma of left breast: (2) Osteopenia: Eugenio Ty is a 58-year-old nice lady with a stage IIa, pT1b, PN 1, MX left breast centrally located invasive ductal carcinoma with 1+ out of 4 lymph node for invasive cancer. ER/ND reported from the 03/20/2023 core biopsy to be ER 100% positive, PER 60% positive and HER2 manolo 2+ by IHC, negative by FISH, Ki 67 low 5%. Surgical pathology report is not dictating the status of the ER, ND and HER2/manolo. Initial consult for medical oncology on 09/21/2023: We went over her new diagnosis of new left breast invasive ductal carcinoma, stage IIa, and we went over and discussed possible options of treatmentbased on the ER, ND and HER2/manolo status considering that she has [...] She had DEXA scan in 07/[address] [facility]. 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 She will need screening mammogram as well every july. For her mild chronic thrombocytopenia, it may be related to Saucier and Seroquelbut will check [employer], B12 and [...] is reported in the surgeon note as ER/ND positive and HER2/manolo pending however there are [...] not report any status of the ER, ND and HER2/manolo, however Dr. García note to dictate that patient was ER/ND positive and HER2/manolo was pending. Left breast [...] nipple 08/01/23 Lumpectomy path: Pathological Diagnosis A. Adrian node, left axilla, biopsy: Metastatic carcinoma to 1 lymph node, out of 4 lymph nodes identified (/) B. Mass, left posterior, lumpectomy - Invasive [...] Examined (sentinel and non-sentinel): 4 Number of Adrian Nodes Examined: 4 pTNM CLASSIFICATION (AJCC 8th [...] it was ER positive on the percent, ND +60%, low Ki-67 of only 5%, HER2 [...] She had DEXA scan in 07/[address] [facility]. It revealed osteopenia with Tscore -0.6 [...] HER2/manolo and actual path report for the ER/ND status, possibly need Oncotype Dx testing to determine if she needs adjuvant chemotherapy. She will need adjuvant radiation. She will need adjuvant endocrine therapy if she is ER/ND positive. Intake Vitals/Pain Assessment 12/21/23 09:56 Height [...] taking Letrozole for the last 6 days. [facility] Medical History Medical History Diabetes Osteopenia Invasive ductal carcinoma of left breast Left breast cancer with T3 tumor, >5 cm in greatest dimension Ingrown right greater toenail removed Ingrown left greater toenail removed Fibrocystic breast determined by biopsy Vaginal atrophy Saucier use Elevated fasting glucose Former smoker Depression [...] signed by Christine Velazquez MD> 12/21/23 1026 [facility] Work Phone: Progress note Author Gaurav Jaime [facility] January 03, 2024 2:37pmNote Date/TimeAugust 2023 1:58pm[facility] [place] [address] Cancer Center Note Signed Patient: Melony Manley MR#: [id number] : 1965 Acct:[id number] Age/Sex: 58 / F Type: REG AMB Date of Service: 01/03/24 Copies to: Susan Ayala MD~ Assessment & Plan (1) Invasive ductal carcinoma of left breast: Plan: Return to clinic as needed Assessment: 58-year-old female with [id number] invasive ductal carcinoma of the left breast, grade 2, ER/ND positive HER2 negative. Patient has undergone lumpectomy [...] carcinoma, provisional grade 1, with DCIS. Strongly ER/ND positive HER2 was equivocal 2+ There is [...] margin was less than 1 mm posteriorly. Adrian lymph node biopsy showed macrometastasis and 1 of 4 lymph nodes size of the largest manjit metastatic deposit was 4 mm. There was extranodal extension present 2 mm or less. [id number] 08/29/2023 return to OR for reexcision, no [...] Fall Precaution Measures Taken: Patient in chair [facility] Medical History Medical History Diabetes Osteopenia Invasive ductal carcinoma of left breast Left breast cancer with T3 tumor, >5 cm in greatest dimension Ingrown right greater toenail removed Ingrown left greater toenail removed Fibrocystic breast determined by biopsy Vaginal atrophy Saucier use Elevated fasting glucose Former smoker Depression [...] By: <Electronically signed by Gaurav Jaime MD> 01/03/241436 [facility] Work Phone: Progress note Author Christine Velazquez [facility] Date/TimeJanuary 2024 12:13pm [facility] [place] [address] Cancer Center Note Signed Patient: Melony Manley MR#: [id number] : 1965 Acct:[id number] Age/Sex: 59 / F Type: REG AMB [...] of 4 lymph node for invasive cancer. ER/ND reported from the 03/20/2023 core biopsy to be ER 100% positive, PER 60% positive and HER2 manolo 2+ by IHC, negative by FISH, Ki 67 low 5%. Surgical pathology report is not dictating the status of the ER, ND and HER2/manolo. Initial consult for medical oncology on 09/21/2023: We went over her new diagnosis of new left breast invasive ductal carcinoma, stage IIa, and we went over and discussed possible options of treatmentbased on the ER, ND and HER2/manolo status considering that she has [...] She had DEXA scan in 07/[address] [facility]. It revealed osteopenia with Tscore -0.6 [...] recurrence, which she would like done at [place]. We will call with results. Otherwise she [...] bone density scan was in 07/2022 at [facility],next one will be 07/2024. She will need screening mammogram as well every March. For her mild chronic thrombocytopenia, it may be related to Saucier and Seroquelbut will monitor her CBC, CMP, [...] is reported in the surgeon note as ER/ND positive and HER2/manolo pending however there are [...] not report any status of the ER, ND and HER2/manolo, however Dr. García note to dictate that patient was ER/ND positive and HER2/manolo was pending. Left breast [...] nipple 08/01/23 Lumpectomy path: Pathological Diagnosis A. Adrian node, left axilla, biopsy: Metastatic carcinoma to [...] Examined (sentinel and non-sentinel): 4 Number of Adrian Nodes Examined: 4 pTNM CLASSIFICATION (AJCC 8th [...] it was ER positive on the percent, ND +60%, low Ki-67 of only 5%, HER2 [...] She had DEXA scan in 07/[address] [facility]. It revealed osteopenia with Tscore -0.6 [...] systems were reviewed and are negative otherwise. 11/15/24: Has been getting sharp, stabbing pain in [...] up with labs for review. Taking Letrzole. [facility] Medical History Medical History Diabetes Osteopenia Invasive ductal carcinoma of left breast Left breast cancer with T3 tumor, >5 cm in greatest dimension Ingrown right greater toenail removed Ingrown left greater toenail removed Fibrocystic breast determined by biopsy Vaginal atrophy Saucier use Elevated fasting glucose Former smoker Depression [...] Corrected WBC 6.1 10 3/uL (4.0-11.0) 05/15/24 11:00 05/15/24 Hgb 13.6 g/dL (12.0-16.0) 05/15/24 11:00 05/15/24 Hct 43.3 % (36.0-48.0) 05/15/24 11:05/15/24 MCV 88.0 fL (81.0-99.0) 05/15/24 11:05/15/24 RDW 14.6 % (11.0-15.0) 05/15/24 11:05/15/24 Plt Count 146 10 3/uL (150-450) L 05/15/24 11:00 05/15/24 Sodium 145 mmol/L (136-145) 05/15/24 11:05/15/24 Potassium 4.3 mmol/L (3.5-5.1) 05/15/24 11:05/15/24 BUN 12.0 mg/dL (7.0-18.0) 05/15/24 11:05/15/24 Creatinine 1.06 mg/dL (0.55-1.02) H 05/15/24 11:00 5 Glucose 174 mg/dL (74-106) H 05/15/24 11:00 05/15/24 Calcium 10.3 mg/dL (8.5-10.1) H 05/15/24 11:05/15/24 Total Bilirubin 0.5 mg/dL (0.2-1.0) 05/15/24 11:05/15/24 AST 27 U/L (15-37) 05/15/24 11:05/15/24 ALT 38 U/L (14-59) 05/15/24 11:05/15/24 Alkaline Phosphatase 105 U/L (46-116) 05/15/24 11:05/15/24 Total Protein 7.4 g/dL (6.4-8.2) 05/15/24 11:05/15/24 Albumin 4.0 g/dL (3.4-5.0) 05/15/24 11:05/15/24 Lactate Dehydrogenase 154 U/L (81-234) 05/15/24 11:05/15/24 Dictated By: Christine Velazquez MD DD/ [id number] Signed By: <Electronically signed by Christine Velazquez MD> 05/23/24 1213 [facility] Work Phone: Progress note Author Christine Velazquez [facility] Date/TimeOctober 2024 10:49am [facility] [place] [address] Cancer Center Note Signed Patient: Melony Manley MR#: [id number] : 1965 Acct:[id number] Age/Sex: 60 / F Type: REG AMB [...] of 4 lymph node for invasive cancer. ER/ND reported from the 03/20/2023 core biopsy to be ER 100% positive, PER 60% positive and HER2 manolo 2+ by IHC, negative by FISH, Ki 67 low 5%. Surgical pathology report is not dictating the status of the ER, ND and HER2/manolo. Initial consult for medical oncology on 09/21/2023: We went over her new diagnosis of new left breast invasive ductal carcinoma, stage IIa, and we went over and discussed possible options of treatmentbased on the ER, ND and HER2/manolo status considering that she has [...] She had DEXA scan in 07/[address] [facility]. It revealed osteopenia with Tscore -0.6 [...] recurrence, which she would like done at [place]. We will call with results. Otherwise she [...] endocrine therapy currently. Her outside labs at [facility] on 08/02/2024 revealed hemoglobin 13.0 withnormal [...] therefore herthrombocytopenia is most likely related to Saucier and Seroquel but will monitor her CBC, [...] is reported in the surgeon note as ER/ND positive and HER2/manolo pending however there are [...] not report any status of the ER, ND and HER2/manolo, however Dr. García note to dictate that patient was ER/ND positive and HER2/manolo was pending. Left breast [...] nipple 08/01/23 Lumpectomy path: Pathological Diagnosis A. Adrian node, left axilla, biopsy: Metastatic carcinoma to [...] Examined (sentinel and non-sentinel): 4 Number of Adrian Nodes Examined: 4 pTNM CLASSIFICATION (AJCC 8th [...] it was ER positive on the percent, ND +60%, low Ki-67 of only 5%, HER2 [...] She had DEXA scan in 07/[address] [facility]. It revealed osteopenia with Tscore -0.6 [...] endocrine therapy currently. Her outside labs at [facility] on 08/02/2024 revealed hemoglobin 13.0 withnormal [...] No concerns voiced at time of intake. [facility] Medical History Medical History Diabetes Osteopenia Invasive ductal carcinoma of left breast Left breast cancer with T3 tumor, >5 cm in greatest dimension Ingrown right greater toenail removed Ingrown left greater toenail removed Fibrocystic breast determined by biopsy Vaginal atrophy Saucier use Elevated fasting glucose Former smoker Depression [...] 02/11/25, : Potassium, (3.5-5.1) 3.8 mmol/L 02/11/25, : BUN, (7.0-18.0) 10.0 mg/dL 02/11/25, : Creatinine, (0.55-1.02) 0.79 mg/dL 02/11/25, : Glucose, (74-106) 136 mg/dL H 02/11/25, : Calcium, (8.5-10.1) 9.5 mg/dL 02/11/25, : Total Bilirubin, (0.2-1.0) 0.3 mg/dL 02/11/25, : AST, (15-37) 27 U/L 02/11/25, : ALT, (14-59) 32 U/L 02/11/25, : Alkaline Phosphatase, (46-116) 88 U/L 02/11/25, Total Protein, (6.4-8.2) 7.7 g/dL 02/11/25, : [...] signed by Christine Velazquez MD> 02/12/25 1049 [facility] Work Phone: Reason for referral (narrative)No reason for referral information availableProtestant Hospital Work Phone: Advance Directives Advance Directive [...] inoma of left breast (C50.912) Referral Organization [facility] Doug hayes Referring Provider First Name Susan Referring Provider Last Name Jamie Referring Provider Specialty Family [facility] Referred Organization [facility] Referred Provider Geraldo García Referred Address ,[place], [place],[address] Referred Provider Specialty Surgery Referral Priority Routine [...] Up 1 Month Follow Up Left breast cancerReason for VisitInvasive [...] 0:22am Type 2 diabetes mellitus with hyperglyce [facility] February 20, 2024 10:22am Right acute [...] 0:22am Type 2 diabetes mellitus with hyperglyce [facility] February 20, 2024 10:22am Right acute [...] 10:38am UC follow up, not feeling better [facility] 2023 2:36pm Reason for Visit Admit Date Invasive ductal carcinoma of left breast January 03, 2024 1:43pm Invasive ductal carcinoma of left breast February 15, 2024 12:46pm Osteopenia February 15, 2024 1 2:46pm Right arm pain February 20, 2024 1 0:22am Type 2 diabetes mellitus with hyperglyce [facility] February 20, 2024 10:22am Right acute otitis media March 16 024 9:09am Generalized body aches March 16 [...] 10:38am UC follow up, not feeling better [facility] 2023 2:36pm BH April 16, 2024 12:53pm Cough/COVID- May 17, 2024 1 1:14am Reason for Visit Admit Date Right arm pain February 20, 2024 1 0:22am Type 2 diabetes mellitus with hyperglyce [facility] February 20, 2024 10:22am Right acute [...] 10:25am UC follow up, not feeling better [facility] 2023 2:36pm May 14, 2024 12 [...] 10:25am UC follow up, not feeling better [facility] 2023 2:36pm May 14, 2024 12 [...] 1:41am Type 2 diabetes mellitus with hyperglyce [facility] May 24, 2024 1:23pm Wellness examination [...] 1:23pm Type 2 diabetes mellitus with hyperglyce [facility] May 24, 2024 1:23pm Wellness examination [...] 1:23pm Type 2 diabetes mellitus with hyperglyce [facility] May 24, 2024 1:23pm Wellness examination [...] with hyperglyce [facility]ap[facility] February 03, 2025 9:49am Chief Complaint Admit [...] Start: May 23, 2024 End: May 23, 2024Yuridia Meneses ProviderActiveStart: May 23, 2024 End: May 23, 2024 Team Status: Active Member Role Status Dates Susan Ayala MD Primary Care Provider Active Start: May 23, 2024 Yuridia Meneses ProviderActiveStart: May 23, 2024 Caterina Alexandre ProviderActiveStart: May 23, 2024 Gaurav Jaime MDActiveStart: May 23, 2024 Team Status: Inactive [...] 2024 End: July 18, 2024Sofi Watson APRN [employer]CHANICAL METER TESTER-CAttending ProviderActive Start: July 18, 2024 End: July 18, 2024 Team Status: Active Member Role Status Dates Susan Ayala MD Primary Care Provide r, Attending Provider Active Start: August 02, 2024 Team Status: Inactive Member Role Status Dates Susan Ayala MD Primary Care Provider Active Start: August 14, 2024 End: August 14, 2024d Shelleyser Al-Jesserabrian , MDAttending ProviderActiveStart: August 14, 2024 End: August 14, 2024 Team Status: Active Member Role Status Dates Susan Ayala MD Primary Care Provider Active Start: May 15, 2024 Mhd Yaser Al-Marrawi , MDAttending ProviderActiveStart: May 15, 2024 Team Status: Inactive Member Role Status Dates Susan Ayala MD Primary Care Provider Active Start: January 03, 2024 End: January 03, 2024Gaurav Jaime MDAttending ProviderActiveStart: January 03, 2024 End: January 03, 2024 Team Status: Active Member Role Status Dates Susan Ayala MD Primary Care Provider Active Start: February 08, 2024 Mhd Yaser Al-Marrawi , MDAttending ProviderActiveStart: February 08, 2024 Team Status: Inactive Member Role Status Dates Susan Ayala MD Primary Care Provider Active Start: February 15, 2024 End: February 15, 2024Mhd Yaser Al-Marrawi , MDAttending ProviderActiveStart: February 15, 2024 End: February 15, 2024 Team Status: Active Member Role Status Dates Susan Ayala MD Primary Care Provider Active Start: February 15, 2024 Mhd Yaser Al-Marrawi , MDAttending ProviderActiveStart: February 15, 2024 Caterina Alexandre ProviderActiveStart: February 15, 2024 Gaurav Jaime MDActiveStart: February 15, 2024 Team Status: Inactive [...] 16, 2024 End: March 16doug Boyd APRN MECHANICAL METER TESTER-CAttending Provider ActiveStart: March 16, 2024 End: March 16, 2024 Team Status: Active Member Role Status Dates Susan Ayala MD Primary Care Provider Active Start: November 20, 2023 Geraldo García , DOReferring ProviderActiveStart: November 20, 2023 Gaurav Jaime , MDAttending Provider, Other ProviderActiveStart: November 20, 2023 Team Status: Active Member Role Status Dates Susan Ayala MD Primary Care Provider Active Start: November 27, 2023 Geraldowally García , MALIAeferring ProviderActiveStart: November 27, 2023 Gaurav Jaime , [...] Active Start: December 06, 2023 Chel Phillips CMAAttending ProviderActiveStart: December 06, 2023 Team Status: Inactive Member Role Status Dates Susan Ayala MD Primary Care Provider Active Start: December 21, 2023 End: December 21, 2023Christine Velazquez , MDAttending ProviderActiveStart: December 21, 2023 End: December 21, 2023 Team Status: Active Member Role Status Dates Susan Ayala MD Primary Care Provider Active Start: December 22, 2023 d Yaser Al-Marrawi , MDAttending ProviderActiveStart: December 22, 2023 Team Status: Active Member Role Status Dates Gavin Plaza MD Attending Provider Active Start: January 23, 2024 Team Status: Inactive Member Role Status Dates Susan Ayala MD Primary Care Provider Active Start: October 11, 2023 End: October 11, 2023d Yaser Al-Marrawi , MDAttending ProviderActiveStart: October 11, 2023 End: October 11, 2023 Team Status: Inactive Member Role Status Dates Susan Ayala MD Primary Care Provider Active Start: October 24, 2023 End: October 24, 2023Norleena R Addison , MDAttending ProviderActiveStart: October 24, 2023 End: October 24, 2023d Yaser Al-Marrawi , MDReferring ProviderActiveStart: October 24, 2023 End: October 24, 2023 Team Status: Active Member Role Status Dates Susan Ayala MD Primary Care Provider Active Start: November 02, 2023 Geraldo Itzkowitz , DOReferring ProviderActiveStart: November 02, 2023 Norleena R Addison , MDAttending Provider, Other ProviderActiveStart: November 02, 2023 Team Status: Active Member Role Status Dates Susan Ayala MD Primary Care Provider Active Start: November 08, 2023 Geraldo Itzkowitz , DOReferring ProviderActiveStart: November 08, 2023 Norleena R Addison , MDAttending Provider, Other ProviderActiveStart: November 08, 2023 Team Status: Active Member Role Status Dates Susan Ayala MD Primary Care Provider Active Start: November 13, 2023 Geraldo Itzkowitz , DOReferring ProviderActiveStart: November 13, 2023 Norleena R Addison , MDAttending Provider, Other ProviderActiveStart: November 13, 2023 Team Status: Active Member Role Status Dates Susan Ayala MD Primary Care Provider Active Start: November 22, 2023 Geraldo Itzkowitz , DOReferring ProviderActiveStart: November 22, 2023 Noraly Nathanter , MDAttending Provider, Other ProviderActiveStart: November 22, 2023 Team Status: Active Member Role Status Dates Gavin Plaza MD Attending Provider Active Start: December 11, 2023 Team Status: Active Member Role Status Dates Susan Ayala MD Primary Care Provider Active Start: January 03, 2024 Mhd Yaser Al-Marrawi , MDAttending ProviderActiveStart: January 03, 2024 Geraldo Itzkowitz , DOReferring ProviderActiveStart: January 03, 2024 Noraly Jaime , MDActiveStart: January 03, 2024 Team Status: Active Member Role Status Dates Susan Ayala MD Primary Care Provider Active Start: September 26, 2023 Ania Blanca , MDAttending ProviderActiveStart: September 26, 2023 Team Status: Inactive Member Role Status Dates Susan Ayala MD Primary Care Provide r, Attending Provider Active Start: October 03, 2023 End: October 03, 2023 Team Status: Active Member Role Status Dates Susan Ayala MD Primary Care Provider Active Start: November 29, 2023 Geraldo Itzkowitz , DOReferring ProviderActiveStart: November 29, 2023 Gaurav Jaime , MDAttending Provider, Other ProviderActiveStart: November 29, 2023 Team Status: Active Member Role Status Dates Susan Ayala MD Primary Care Provider Active Start: December 21, 2023 Mhd Yaser Al-Marrawi , MDAttending ProviderActiveStart: December 21, 2023 Geraldo Itzkowitz , DOReferring ProviderActiveStart: December 21, 2023 Noraly Nathanter , MDActiveStart: December 21, 2023 Team Status: Inactive Member Role Status Dates Susan Ayala MD Primary Care Provide r, Attending Provider Active Start: July 11, 2023 End: July 11, 2023 Team Status: Inactive Member Role Status Dates Susan Ayala MD Primary Care Provider Active Start: July 12, 2023 End: July 12, 2023Fredric Itzkowitz , DOAttending ProviderActiveStart: July 12, 2023 End: July 12, 2023 Team Status: Inactive Member Role Status Dates uSsan Ayala MD Primary Care Provider Active Start: July 19, 2023 End: July 19, 2023Fredric Itsophiakoyue , DOAttending ProviderActiveStart: July 19, 2023 End: July 19, 2023 Team Status: Active Member Role Status Dates Susan Ayala MD Primary Care Provide r, Attending Provider Active Start: July 24, 2023 Team Status: Inactive Member Role Status Dates Susan Ayala MD Primary Care Provider Active Start: August 01, 2023 End: August 01, 2023Fredric Itcady , DOAttending ProviderActiveStart: August 01, 2023 End: August 01, 2023 Team Status: Inactive Member Role Status Dates Susan Ayala MD Primary Care Provide r, Attending Provider Active Start: August 11, 2023 End: August 11, 2023 Team Status: Inactive Member Role Status Dates Susan Ayala MD Primary Care Provider Active Start: August 29, 2023 End: August 29, 2023Fredric Marcus , DOAttending ProviderActiveStart: August 29, 2023 End: August 29, 2023 Team Status: Active Member Role Status Hilary Plaza MD Attending Provider Active Start: September 19, 2023 Team Status: Active Member Role Status Dates Susan Ayala MD Primary Care Provider Active Start: September 21, 2023 Mhcarlitos Velazquez MDAttending ProviderActiveStart: September 21, 2023 GeraldoMALIA Otteferring ProviderActiveStart: September 21, 2023 Team Status: Inactive Member Role Status Dates Susan Ayala MD Primary Care Provider Active Start: September 21, 2023 End: September 21, 2023MhCharo Menesesending ProviderActiveStart: September 21, 2023 End: September 21, 2023Fredignacio García DOReferring ProviderActiveStart: September 21, 2023 End: September 21, 2023 Team Status: Active Member Role Status Dates Gavin Plaza MD Attending Provider Active Start: July 04, 2023 Team Status: Inactive Member Role Status Dates Susan Ayala MD Attending Provider Active Team Status: Inactive Member Role Status Dates Geraldo García , Attending Provider Active Shaan Ling Care ProviderActive Team Status: Inactive Member Role Status Dates Geraldo García , DO Attending Provider Active Start: May 02, 2023 End: May 02, 2023ELIN Lingrimary Care ProviderActiveStart: May 02, 2023 End: May 02, 2023 Team Status: Inactive Member Role Status Dates Geraldo García , DO Attending Provider Active Start: May 16, 2023 End: May 16, 2023ELIN Lingrijessey Care ProviderActiveStart: May 16, 2023 End: May 16, 2023 Team Status: Active Member Role Status Dates Gavin Plaza MD Attending Provider Active Start: May 30, 2023 Team Status: Active Member Role Status Dates Susan Ayala MD Primary Care Provider Active Start: October 11, 2023 d Jose Luis Jacobson-Bibi , MDAttending ProviderActiveStart: October 11, 2023 Geraldowally García , MALIAeferring ProviderActiveStart: October 11, 2023 Team Status: Active Member Role Status Dates Gavin Plaza MD Attending Provider Active Start: October 31, 2023 Team Status: Active Member Role Status Dates Susan Ayala MD Primary Care Provider Active Start: November 15, 2023 Geraldo Marcus , DOReferring ProviderActiveStart: November 15, 2023 Gaurav Jaime MDAttending Provider, Other ProviderActiveStart: November 15, 2023 Team Status: Active Member Role Status Dates Susan Ayala MD Primary Care Provider Active Start: December 04, 2023 Mhd Yaser Al-Marrabrian , MDActiveStart: December 04, 2023 Geraldo Marcus , DOReferring ProviderActiveStart: December 04, 2023 Gaurav Jaime MDAttending ProviderActiveStart: December 04, 2023 Team MemberRelationshipSpecialtyStart DateEnd Date Susan Ayala MD [address] [place] [facility] [place] [phone] PCP - [facility]03/15/23Team MemberRelationshipSpecialtyStart DateEnd Date Susan Ayala MD [address] [place] [facility] [place] [address] PCP - [facility]03/15/23 Team Status: Inactive Member Role Status Dates Susan Ayala MD Primary Care Provider Active Start: March 22, 2024 End: March 22, 2024Teresa Herr APRNAtvasyl ProviderActive Start: March 22, 2024 End: March 22, 2024 Team Status: Active Member Role Status Dates Susan Ayala MD Primary Care Provider Active Start: March 22, 2024 Christine Velazquez , MDAttending ProviderActiveStart: March 22, 2024 Geraldo García , DOReferring ProviderActiveStart: March 22, 2024 Gaurav Jaime , MDActiveStart: March 22, 2024 Team Status: Inactive Member Role Status Dates Susan Ayala MD Primary Care Provide r, Attending Provider Active Start: March 25, 2024 End: March 25, 2024Team MemberRelationshipSpecialtyStart DateEnd Date Susan Ayala MD [address] [place] [facility] [place] [phone] [facility]Team MemberRelationshipSpecialtyStart DateEnd Date Susan Ayala MD [address] [facility] [place] [phone] PCP - [facility]03/15/23Team MemberRelationshipSpecialtyStart DateEnd Date Susan Ayala MD [address] [facility] [place] [address] PCP - GeneralFamily Xjlaqaqo22/8/23Team MemberRelationshipSpecialtyStart DateEnd Date Susan Ayala MD [address] [facility] [place] [address] PCP - GeneralFamily Euqjvqig45/8/23Team MemberRelationshipSpecialtyStart DateEnd Date Susan Ayala MD [address] [facility] [place] [address] PCP - GeneralFamily Prrbjabr48/8/23 Team Status: Active Member Role Status Dates Gavin Plaza MD Attending Provider Active Start: April 16, 2024 Team Status: Active Member Role Status Dates Gavin Plaza MD Attending Provider Active Start: May 14, 2024 Team MemberRelationshipSpecialtyStart DateEnd Date Susan Ayala MD [address] [place] [facility] [place] [address] PCP - GeneralFamily Medicine09/05/24Team MemberRelationshipSpecialtyStart DateEnd Date Susan Ayala MD [address] [facility] [place] [phone] PCP - GeneralFamily Medicine09/05/24Team MemberRelationshipSpecialtyStart DateEnd Date Susan Ayala MD [address] [facility] [place] [address] PCP - GeneralFamily Medicine09/05/24Team MemberRelationshipSpecialtyStart DateEnd Date Susan Ayala MD [address] [place] [phone] PCP - [facility]09/05/24 Team Status: Inactive Member Role Status Dates Susan Ayala MD Primary Care Provider Active Start: February 03, 2025 End: February 03, 2025Yuridia Ling ProviderActiveStart: February 03, 2025 End: February 03, 2025 Team Status: Active Member Role Status Dates Jose Luis Velazquez Attending Provider Active Start : February 11, 2025 [facility] ProviderActiveStart: February 11, 2025 Team Status: Active Member Role Status Dates Susan Ayala MD Primary Care Provider Active Start: February 12, 2025 Mhd Jose Luis Velazquez , MDAttending ProviderActiveStart: February 12, 2025 Caterina Alexandre ProviderActiveStart: February 12, 2025 Team Status: Inactive Member Role Status Dates Susan Ayala MD Primary Care Provider Active Start: February 12, 2025 End: February 12, 2025Mhd Jose Luis Velazquez MDAttending ProviderActiveStart: February 12, 2025 End: February 12, 2025Team MemberRelationshipSpecialtyStart DateEnd Date Susan Ayala MD PCP - [facility] Susan Ayala MD [address] [place] [id number] [facility]09/05/24 Goals (unrecognized section and content) Goals may [...] and content) DATE CREATED AUTHOR 09/02/[address] [facility] DATE CREATED AUTHOR AUTHOR'S ORGANIZ ATION 07/07/2023 [facility] DATE CREATED AUTHOR AUTHOR'S ORGANIZ ATION 10/05/2024 [facility] DATE CREATED AUTHOR AUTHOR'S ORGANIZ ATION 02/22/2025 [facility] FOR RECORDS PERTAINING TO PATIENTS [...] BE BASED ON THE PRIMARY CLINICAL RECORDS. [employer] provides no warranty or guarantee of the accuracy or completeness of information in this document.
== END 2025-04-07 12:47 | disposition home or self-care (01) ==
LOC: MAMMO 12:46
PROVIDERS: PCP Family Medicine
DX: Z12.31 Encounter for screening mammogram for malignant neoplasm of breast (principal); C50.912 Malignant neoplasm of unspecified site of left female breast; Z80.0 Family history of malignant neoplasm of digestive organs
CPT/HCPCS: 77063; 77067

== ENCOUNTER 2025-04-09 19:44 | Outpatient (REF) | payer MEDICARE, MEDICAID, SELFPAY ==
--- OUTSIDE RECORDS SUMMARY | 2025-04-09 14:00 | XMS_ITS | Encounter Summary ---
Author Organization [facility] Address [address] [place] [address] Care Team Providers Care Machine Turner Name Role Phone Alexia Raya MD Primary Care Provider [phone] Reason for Visit * ReasonCommentsGynecologic Exam Encounter Details DateTypeDepartmentCare Team (Latest Contact Info)Imalmyrrvha09/03/2025 2:00 PM ESTProcedure Visit [facility] [address] [place] [address] Chel Mahoney PA [address] [place], [place] [id number] Well woman exam with routine gynecological exam (Primary Dx); Breast cancer screening by mammogram; Osteoporosis screening; Osteoporosis, post-menopausal; Osteopenia, unspecified location Social History Tobacco UseTypesPacks/DayYears UsedDateSmoking Tobacco: VlajbtTzyoqvfngf192Pqaf: 2017Smokeless Tobacco: NeverAlcohol UseStandard Drinks/WeekCommentsNot Currently 0 (1 standard drink = 0.6 oz pure alcohol)CommentsNoSex and Gender InformationValueDate RecordedSex Assigned at BirthNot on fileLegal SexFemale 07/20/2022 7:40 PM EDTGender IdentityNot on fileSexual OrientationNot on file documented as of this encounter Last Filed Vital Signs Vital SignReadingTime TakenCommentsBlood Lgskaywo866/7404/09/2025 2:18 PM EST Pulse--Temperature--Respiratory Rate--Oxygen Saturation--Inhaled Oxygen Concentration--Cyinwc52.6 kg (149 lb)04/09/2025 2:18 PM ESTHeight--Body Mass Index25.5805/ 1:42 PM EDTdocumented in this encounter Progress Notes * Orlando Aguilar MA - 04/09/2025 2:00 PM EST Reason for Appointment: Patient ID: Melony Laws is a 60 y.o. female who presents for Gynecologic Exam Patient presents today for Annual Exam. MEDICATIONS Current Outpatient Medications Medication Instructions alendronate (FOSAMAX) 70 mg, Oral, Every 7 days, Take in the morning with a full glass of water, lizette empty stomach, and do not take anything else by mouth or lie down for the next 30 min. busPIRone (Buspar) 5 MG tablet 2 times daily letrozole (Femara) 2.5 MG chemo tablet Daily levothyroxine (SYNTHROID, LEVOXYL) 75 mcg, Daily before breakfast lithium ER (ESKALITH) 450 mg, Nightly omeprazole (PRILOSEC) 40 mg, Daily before breakfast QUEtiapine (SEROQUEL) 200 mg, Nightly rosuvastatin (CRESTOR) 20 mg, Daily ALLERGIES Allergies Allergen Reactions Penicillins Other Other Reaction(s): Swelling of Lip/Tongue/Throat Other Reaction(s): Unknown Cephalosporins Other Reaction(s): Unknown Reaction PROBLEMS Active Ambulatory Problems Diagnosis Date Noted Malignant neoplasm of central portion of left breast in female, estrogen receptor positive (HCC) 05/19/2023 Abnormal mammogram 04/08/2024 Allergic rhinitis 04/08/2024 Breast pain, left 04/08/2024 Elevated fasting glucose 04/08/2024 GERD (gastroesophageal reflux disease) 04/08/2024 Hyperlipidemia 04/08/2024 Invasive ductal carcinoma of left breast (HCC) 04/08/2024 Osteopenia 04/08/2024 Right acute otitis media 04/08/2024 Right arm pain 04/08/2024 Screening for colon cancer 04/08/2024 Stage 3 chronic kidney disease ([facility]) 04/08/2024 Type 2 diabetes mellitus with hyperglycemia ([facility]) 04/08/2024 Sudden idiopathic hearing loss of right ear with restricted hearing of left ear 04/10/2024 Resolved Ambulatory Problems Diagnosis Date Noted No Resolved Ambulatory Problems Past Medical History: Diagnosis Date Bipolar [address]) Breast cancer ([facility]) 03/2023 Ear problems HL (hearing loss) Hypothyroid Schizophrenia (HCC) HISTORY PAST MEDICAL HISTORY SOCIAL HISTORY Past Medical History: Diagnosis Date Bipolar 1 disorder (HCC) Breast cancer (HCC) 03/2023 Left Breast IDC ER/NV+ Her 2 pend Ear problems HL (hearing loss) Hyperlipidemia Hypothyroid Schizophrenia (HCC) Social History Tobacco Use Smoking status: Former Current packs/day: 0.00 Average packs/day: 1 pack/day for 15.0 years (15.0 ttl pk-yrs) Types: Cigarettes Quit date: 2016 Years since quittin.9 Smokeless tobacco: Never Substance Use Topics Alcohol use: Not Currently Drug use: Never FAMILY HISTORY Family History Problem Relation Name Age of Onset Stomach cancer Mother Cecile Grady Cancer Mother Cecile Grady Heart disease Father Cancer Maternal Grandmother Cecile Flores Diabetes Maternal Grandmother Cecile Flores Colon cancer Neg Hx Breast cancer Neg Hx Ovarian cancer Neg Hx SURGICAL HISTORY Past Surgical History: Procedure Laterality Date BREAST LUMPECTOMY Left 08/01/2023 BREAST SURGERY 08/29/2023 Left breast re-excision CATARACT EXTRACTION Bilateral OTHER SURGICAL HISTORY Bilateral ingrown toenail removal OTHER SURGICAL HISTORY Laparoscopic surgery RETINAL DETACHMENT SURGERY TUBAL LIGATION REVIEW OF SYSTEMS Review of Systems: Review of Systems All other systems reviewed and are negative. OBJECTIVE Objective: Physical Exam Constitutional: Appearance: Normal appearance. She is well-developed. Genitourinary: Vulva normal. Cardiovascular: Rate and Rhythm: Normal rate and regular rhythm. Pulmonary: Effort: Pulmonary effort is normal. Breath sounds: Normal breath sounds. Abdominal: General: Bowel sounds are normal. There is no distension. Palpations: Abdomen is soft. Tenderness: There is no abdominal tenderness. There is no guarding or rebound. Musculoskeletal: General: No swelling. Normal range of motion. Right lower leg: No edema. Left lower leg: No edema. Neurological: Mental Status: She is alert and oriented to person, place, and time. Skin: General: Skin is warm and dry. Psychiatric: Mood and Affect: Mood normal. Behavior: Behavior normal. Vitals and nursing note reviewed. Exam conducted with a speech pathologist present. Vitals: Estimated body mass index is 28.15 kg/m?? as calculated from the following: Height as of 10/03/24: 5' 4 . Weight as of 5/29/25: 164 lb. BP: No LMP recorded. Patient is postmenopausal. Assessment/Plan ICD-10-CM 1. Well woman exam with routine gynecological exam Z01.419 THIN PREP TIS PAP AND HR HPV DNA 2. Breast cancer screening by mammogram Z12.31 Bilateral screening mammogram Bilateral screening mammogram 3. Osteoporosis screening Z13.820 DEXA bone density 4. Osteoporosis, post-menopausal M81.0 DEXA bone density 5. Osteopenia, unspecified location M85.80 alendronate (Fosamax) 70 MG tablet Assessment/Plan Annual: Patient presents today for an annual exam. Patient states she is doing well and has no complaints. Pap was obtained without difficulty and patient given mammogram order to have scheduled/obtained. Orders Placed This Encounter Procedures Bilateral screening mammogram DEXA bone density Follow Up: Patient is to return in one year for annual unless needed otherwise. Documented by Orlando Aguilar MA on behalf of: DANIELA Cardona * DANIELA Cardona - 04/09/2025 2:00 PM EST Reason for Appointment: Patient ID: Melony Laws is a 60 y.o. female who presents for Gynecologic Exam Patient presents today for Annual Exam. MEDICATIONS Current Outpatient Medications Medication Instructions alendronate (FOSAMAX) 70 mg, Oral, Every 7 days, Take in the morning with a full glass of water, lizette empty stomach, and do not take anything else by mouth or lie down for the next 30 min. 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) 04/08/2024 Type 2 diabetes mellitus with hyperglycemia ([facility]) 04/08/2024 Sudden idiopathic hearing loss of right ear with restricted hearing of left ear 04/10/2024 Resolved Ambulatory Problems Diagnosis Date Noted No Resolved Ambulatory Problems Past Medical History: Diagnosis Date Bipolar 1 disorder ([facility]) Breast cancer ([facility]) 03/2023 Ear problems HL (hearing loss) Hypothyroid Schizophrenia ([facility]) HISTORY PAST MEDICAL HISTORY SOCIAL HISTORY Past Medical History: Diagnosis Date Bipolar 1 disorder ([facility]) Breast cancer ([facility]) 03/2023 Left Breast IDC ER/NV+ Her 2 pend Ear problems HL (hearing loss) Hyperlipidemia Hypothyroid Schizophrenia ([facility]) Social History Tobacco Use Smoking status: Former Current packs/day: 0.00 Average packs/day: 1 pack/day for 15.0 years (15.0 ttl pk-yrs) Types: Cigarettes Quit date: 2016 Years since quittin.9 Smokeless tobacco: Never Substance Use Topics Alcohol use: Not Currently Drug use: Never FAMILY HISTORY Family History Problem Relation Name Age of Onset Stomach cancer Mother Cecile Grady Cancer Mother Cecile Grady Heart disease Father Cancer Maternal Grandmother Cecile MenaBeatriz Flores Diabetes Maternal Grandmother Cecile Bala Flores Colon cancer Neg Hx Breast cancer Neg Hx Ovarian cancer Neg Hx SURGICAL HISTORY Past Surgical History: Procedure Laterality Date BREAST LUMPECTOMY Left 08/01/2023 BREAST SURGERY 08/29/2023 Left breast re-excision CATARACT EXTRACTION Bilateral OTHER SURGICAL HISTORY Bilateral ingrown toenail removal OTHER SURGICAL HISTORY Laparoscopic surgery RETINAL DETACHMENT SURGERY TUBAL LIGATION REVIEW OF SYSTEMS Review of Systems: Review of Systems Constitutional: Negative. HENT: Negative. Eyes: Negative. Respiratory: Negative. Cardiovascular: Negative. Gastrointestinal: Negative. Genitourinary: Negative. Musculoskeletal: Negative. Skin: Negative. Neurological: Negative. All other systems reviewed and are negative. Hematological: Negative. Endocrine: Negative. Allergic/Immunologic: Negative. OBJECTIVE Objective: Physical Exam Constitutional: Appearance: Normal appearance. She is well-developed. Genitourinary: Vulva normal. Right Adnexa: not tender and no mass present. Left Adnexa: not tender and no mass present. No cervical discharge. Breasts: Breasts are soft. Right: Normal. Left: Normal. HENT: Head: Normocephalic. Nose: Nose normal. Mouth/Throat: Mouth: Mucous membranes are moist. Cardiovascular: Rate and Rhythm: Normal rate and regular rhythm. Pulmonary: Effort: Pulmonary effort is normal. Breath sounds: Normal breath sounds. Abdominal: General: Bowel sounds are normal. There is no distension. Palpations: Abdomen is soft. Tenderness: There is no abdominal tenderness. There is no guarding or rebound. Musculoskeletal: General: No swelling. Normal range of motion. Cervical back: Normal range of motion. Right lower leg: No edema. Left lower leg: No edema. Neurological: General: No focal deficit present. Mental Status: She is alert and oriented to person, place, and time. Skin: General: Skin is warm and dry. Psychiatric: Mood and Affect: Mood normal. Behavior: Behavior normal. Vitals and nursing note reviewed. Exam conducted with a speech pathologist present. Vitals: Estimated body mass index is 25.58 kg/m?? as calculated from the following: Height as of 10/03/24: 5' 4 . Weight as of this encounter: 149 lb. BP: 130/74 No LMP recorded. Patient is postmenopausal. ASSESSMENT & PLAN ICD-10-CM 1. Well woman exam with routine gynecological exam Z01.419 THIN PREP TIS PAP AND HR HPV DNA 2. Breast cancer screening by mammogram Z12.31 Bilateral screening mammogram Bilateral screening mammogram 3. Osteoporosis screening Z13.820 DEXA bone density 4. Osteoporosis, post-menopausal M81.0 DEXA bone density 5. Osteopenia, unspecified location M85.80 alendronate (Fosamax) 70 MG tablet Orders Placed This Encounter Procedures Bilateral screening mammogram DEXA bone density Annual Wellness Exam: Patient presents today for routine annual exam. Patient states she has complaints of vaginal dryness and dysparunia. Patients vitals were reviewed and within normal limits. Growth and development is noted to be appropriate for age. No mental health concerns was expressed. Pap Smear: Speculum was inserted into the vagina and pap was obtained without difficulty. HPV testing was performed per age guideline. Patient was advised that pap results could take anywhere from 7 to 10 days to receive and our office will reach out to the patient with those once we have them. Patient can also view results via [employer]. I reinforced importance of condom use for STI prevention. Patient requested cultures to be performed with today's visit. Breast Exam: Upon examination, clinical breast exam was noted to be normal and screening mammogram was ordered and given to patient to have obtained. Patient was counseled on breast self-awareness, including the importance of knowing what is normal for her own breasts and promptly reporting any changes such as new lumps, skin dimpling, nipple discharge, or pain. Screening mammogram was recommended annually. Discussed signs and symptoms of breast cancer and when to seek medical attention. Answered all patient questions. DEXA Counseling: DEXA scan ordered and given to the patient to have performed for osteoporosis screening per guidelines. Patient counseled on bone health, including the importance of calcium and vitamin D intake, weight-bearing exercise, fall prevention, and avoiding tobacco and excessive alcohol. Discussed purposeof DEXA in assessing fracture risk and monitoring bone density. Patient advised results will be reviewed upon completion and next steps discussed as needed. Vaginal cultures obtained as pt feels she has a musty odor. We discussed using estrace cream due tovaginal dryness and painful intercourse. She is going to check with her oncologist and notify hospital if estrogen cream is approved Follow Up: Patient is to return to our office in one year for annual exam unless needed otherwise. Documented by DANIELA Cardona on behalf of: DANIELA Cardona documented in this encounter Miscellaneous Notes * Addendum Note - Orlando Aguliar MA - 04/09/2025 2:00 PM ESTAddended by: ORLANDO AGUILAR on: 04/09/2025 02:12 PM Modules accepted: Orders * Addendum Note - Orlando Aguilar MA - 04/09/2025 2:00 PM ESTAddended by: ORLANDO AGUILAR on: 04/09/2025 02:18 PM Modules accepted: Orders documented in this encounter Plan of Treatment NameTypePriorityAssociated DiagnosesOrder ScheduleBilateral screening mammogram ImagingRoutine Breast cancer screening by mammogram Expected: 04/09/2025 (Approximate), Expires: 06/10/2026DEXA bone densityImaging Routine Osteoporosis screening Osteoporosis, post-menopausal Expected: 04/09/2025 (Approximate), Expires: 04/09/2026THIN PREP TIS PAP AND HR HPV DNAPathology and CytologyRoutine Well woman exam with routine gynecological exam Ordered: 04/09/2025documented as of this encounter Procedures Procedure NamePriorityDate/TimeAssociated DiagnosisCommentsPAP TEST, EXTERNAL Onadcus0907/24/2023 12:00 AM EDTdocumented in this encounter Results * PAP TEST, EXTERNAL (07/24/2023 12:00 AM EDT) Narrative Authorizing ProviderResult TypeResult StatusCorey Lisbeth DOLAB CYTOLOGY ORDERABLESFinal ResultPerforming OrganizationAddressCity/State/ZIP CodePhone Number EXTERNAL LAB documented in this encounter Visit Diagnoses Diagnosis Well woman exam with routine gynecological exam- Primary Routine gynecological examination Breast cancer screening by mammogram Osteoporosis screening Special screening for osteoporosis Osteoporosis, post-menopausal Senile osteoporosis Osteopenia, unspecified location documented in this encounter Care Teams Team MemberRelationshipSpecialtyStart DateEnd Date Alexia Raya MD [address] [place] [phone] PCP - GeneralFamily Medicine09/05/24documented as of this encounter
--- OUTSIDE RECORDS SUMMARY | 2025-04-09 19:51 | XMS_ITS | Clinical Summary ---
Author Organization [facility] Address [address] [place] [address] Phone Care Team Providers Care Product Operations Associate Name Role Phone Unavailable Primary Care Provider Unavailabl e Social History Tobacco UseTypesPacks/DayYears UsedDateSmoking Tobacco: Never Assessed CommentsUnknownSex and Gender InformationValueDate RecordedSex Assigned at Not on fileLegal IzoLuaitz57/04/2023 7:14 AM ESTGender IdentityNot on fileSexual OrientationNot on file Plan of Treatment Health MaintenanceDue DateLast DoneCommentsCT Hsejmmhseevj1964Colonoscopy 1964Colorectal Cancer Onqqfnmay1964FIT-DNA (Cologuard)1964FIT 1964HIV Nkbnfdbzj1964Lipid Panel1964Medicare Annual Wellness Visit (AWV)1965 0741Qyzkhopnevlnc1964MMR Vaccines (1 of 1 - Standard series)01/31/1965Hepatitis C Zymnsjxsd87/26/1982Cervical Cancer Screening 01/31/1985HPV/Cssyxj9401/31/1985Pap Smear01/31/1985DTaP/Tdap/Td Vaccines (1 - Tdap)01/31/19860354Zsqdhocsg82/26/2004Pneumococcal Vaccine (1 of 1 - PCV)01/31/2014 Zoster [...] file Type:Not on file Address: David Devi [address] [id number]
--- OUTSIDE RECORDS SUMMARY | 2025-04-09 19:51 | XMS_ITS | Encounter Summary ---
Author Organization [facility] Address [address] [place] [address] Care Team Providers Care Warehouse Shipping Clerk Name Role Phone Alexia Raya MD Primary Care Provider [phone] Encounter Details DateTypeDepartmentCare Team (Latest Contact Info)Xspghfisdmr73/03/2025amboo flowsheet [facility] [address] [place] [address] Chel Mahoney PA [address] [place], [facility] Social History Tobacco UseTypesPacks/DayYears UsedDateSmoking Tobacco: FyngtqCuxvbimptz435Jfdg: 2017Smokeless Tobacco: NeverAlcohol UseStandard Drinks/WeekCommentsNot Currently 0 (1 standard drink = 0.6 oz pure alcohol)CommentsNoSex and Gender InformationValueDate RecordedSex Assigned at BirthNot on fileLegal SexFemale 07/20/2022 7:40 PM EDTGender IdentityNot on fileSexual OrientationNot on file documented as of this encounter Plan of Treatment Not on file documented as of this encounter Visit Diagnoses Not on filedocumented in this encounter Care Teams Team MemberRelationshipSpecialtyStart DateEnd Date Alexia Raya MD [address] [place] [phone] PCP - GeneralFamily Medicine09/05/24documented as of this encounter
--- OUTSIDE RECORDS SUMMARY | 2025-04-09 19:51 | XMS_ITS | Clinical Summary ---
Author Organization [facility] Address [address] [place] [address] Care Team Providers Care Hydrometer Finisher Name Role Phone Alexia Raya MD Primary Care Provider [phone] Allergies Active AllergyReactionsCriticalityNoted SqqeUgfffngkHnabmlzzxnoiqj69/26/2024 Other Reaction(s): Unknown Reaction HpmppyztbyqDxzfqZlmp02/02/2023 Other Reaction(s): Swelling of Lip/Tongue/Throat Other Reaction(s): Unknown Medications MedicationSigDispense QuantityRefillsLast FilledStart DateEnd DateStatus levothyroxine [...] for the next 30 min. 4 tablet 111515Active alendronate (Fosamax) 70 MG tablet Indications:Osteopenia, unspecified locationTake 1 tablet (70 mg) by mouth every 7 (seven) days Take in the morning with a full glass of water,on an empty stomach, and do not take anything else by mouth or lie down for the next 30 min. 4 tablet Discontinued(Reorder) Active Problems ProblemNoted DateDiagnosed DateSudden idiopathic hearing loss of right ear with restricted hearing of left ear04/10/2024bnormal aftzyvakv22/02/2024llergic lpynieyh82/02/2024reast pain, left04/08/2024Elevated fasting unuykgm6604/08/2024 GERD (gastroesophageal reflux disease)04/08/20245235Udmbkhxterfgvd25/02/2024Invasive ductal carcinoma of left skhany5304/08/20249570Lyitjuaioj95/02/2024Right acute otitis media04/08/2024ight arm pain04/08/2024Screening for colon isqlud2404/08/2024Stage 3 chronic kidney lriylcc0404/08/2024Type 2 diabetes mellitus with hyperglycemia 04/08/2024Malignant neoplasm of central portion of left breast in female, estrogen receptor vgokrfnc23/12/2024 Encounters DateTypeDepartmentCare KgfcKrmtmrvtnqd95/03/2025 2:00 PM ESTProcedure Visit [facility] [address] [place] [address] [place] [address] Chel Mahoney PA Well woman exam with routine gynecological exam (Primary Dx); Breast cancer screening by mammogram; Osteoporosis screening; Osteoporosis, post-menopausal; Osteopenia, unspecified secbuksm97/03/2025amboo flowsheet [facility] [address] [facility] [address] Chel Mahoney PA 04/08/20258921Jkmujj21/04/2025Refill [facility] [address] Chel Mahoney PA Osteopenia, unspecified /15/2025Telephone [facility] [address] [place] [address] Chel Mahoney PA from Last 3 Months Immunizations ImmunizationAdministration DatesNext DueInfluenza, Injectable, MDCK, preservative free02/21/2024Influenza, injectable, MDCK, preservative free, prtizwxgwhrq64/24/2022Influenza, injectable, quadrivalent, preservative free 01/23/2017,02/22/2016Influenza, seasonal, vksohanddl63/22/1997Influenza, seasonal, injectable, preservative free02/05/2015Pneumococcal Polysaccharide WKLZ0185 Family History Medical HistoryRelationNameCommentsHeart diseaseFatherCancerMaternal Grandmother Cecile Mckenna IsonDiabetesMaternal GrandmotherCecile MenaBeatriz HoyosnCancerMotherTaunton State HospitalBeatriz HerreraGrady Stomach cancerMotherTaunton State HospitalBeatriz HerreralyonsBreast cancerNeg HxColon cancerNeg HxOvarian cancerNeg HxRelationNameStatusCommentsFatherDeceasedMaternal GrandmotherCecile Mckenna Tuscarawas HospitalnMotherMemphis JanakBeatriz HerreramanDeceased Social History Tobacco UseTypesPacks/DayYears UsedDateSmoking Tobacco: QwlnewOrqnrmjvxu637Gvwn: 2017Smokeless Tobacco: Never Tobacco Cessation:Counseling Given: Yes Alcohol UseStandard Drinks/WeekCommentsNot Currently0 (1 standard drink = 0.6 oz pure alcohol)CommentsNoSex and Gender InformationValueDate RecordedSex Assigned at BirthNot on fileLegal XcjFyfdnm71/15/2023 7:40 PM EDTGender Identity Not on fileSexual OrientationNot on file Last Filed Vital Signs Vital SignReadingTime TakenCommentsBlood Ioywymph964/7412 2:18 PM EST Nzbzv1048 1:23 PM EDTTemperature--Respiratory Coba003610/03/2024 1:42 PM EDTOxygen Saturation--Inhaled Oxygen Concentration--Wlfnea87.6 kg (149 lb) 04/09/2025 2:18 PM YDBIhmgnu282.6 cm (5' 4 )10/03/2024 1:42 PM EDTBody Mass Index25.58010/03/2024 1:42 PM EDT Plan of Treatment Health MaintenanceDue DateLast DoneCommentsCT Fxxfqrrbazhc1964Colonoscopy 1965Colorectal Cancer Czqziuote1964FIT-DNA1964FIT1965 FOBT1965 3703Qsjunxstkpvyc70/26/5702Kanvkraiv39/26/28207408/01/2023, 08/26/2022, 08/01/2022OVID-19 Vaccine ( season)/, 02/21/2024, 04/20/2021, Additional history existsPap Smear, 07/18/2022 Cervical Cancer Jqglbnege10/13/2028HPV/Rexxyr1207/19/2027Pneumococcal Vaccine: Pediatrics (0 to 5 Years) and At-Risk Patients (6 to 64 Years)Aged Out02/26/1997 No longer eligible based on patient's age to complete this topicInfluenza SpnaootJfjythllc55/29/2025, 02/21/2024, 02/28/2022, Additional history exists Procedures Procedure NamePriorityDate/TimeAssociated DiagnosisCommentsBI MAMMOGRAM DIAGNOSTIC LEFT08/01/2023 1:26 PM EDT PAP TEST, MKRWUFKAWvdzrgs36/18/2024 12:00 AM EDTfrom Last 3 Months or Most Recently Relevant to Health Maintenance Results * Left diagnostic mammogram (08/01/2023 1:26 PM EDT)Anatomical RegionLaterality ModalityBreastLeftMammographySpecimen (Source)Anatomical Location / Laterality Collection Method / VolumeCollection TimeReceived Time08/01/2023 1:26 PM EDT Impressions 08/01/2023 1:30 PM EDT Resection of the radiation. ?? Impression dictated by: Sandro Cintron M.D.08/01/2023 1:27 PM ? Dictation Location: RADIO-PC-12 ? Transcribed By: ? PWS ?08/01/23 1327 ? Dictated By: ?Sandro Cintron S DO ?08/01/23 1326 ? Signed By: <Electronically signed by Sandro S Abdulaziz, DO in OV> ? 08/01/23 1327 Narrative 08/01/2023 1:30 PM EDT [facility] [place] ?[address] ? [place] [address] ? Mammography Report ? Signed ? Patient: Veto,Melony ?MR#: [id number] ?? [id number] ? : 1965 ?Acct:[id number] ? Age/Sex: 58 / F ?ADM Date: 08/01/23 ? Loc: [place] ?Room: ?Type: REG SDC ?? Attending Dr: Rafael Velazquez DO ?? Copies to: Rafael Velazquez DO ?? Alexia Raya MD ? Ordering Provider: Rafael Velazquez DO ?? Date of Service: 08/01/23 ?? MM/MM surgical specimen LT: LEFT BREAST SPECIMEN IN OR WITH RADIOACTIVE SEED ? Fluoroscopic assessment of left lumpectomy surgical specimen ? HISTORY: Evaluate left lumpectomy ? 1 ??Image ? The radiation seed identified within the specimen. ? MM/MM surgical specimen LT ?? Procedure Note Radiology, Radiologist, - 08/01/2023 [facility] [place] [address] [place] [id number] Mammography Report Signed Patient: Melony LawsMR#: [id number] : 1965Acct:[id number] Age/Sex: 58 / FADM Date: 08/01/23 Loc: [place] Room:Type: [facility] Attending Dr: Rafael Velazquez DO Copies [...] Sandro Cintron M.D.08/01/2023 1:27 PM Dictation Location: [facility]-- Transcribed By: [facility] 08/01/23 1327 Dictated By: Sandro Cintron DO 08/01/23 1326 Signed By: <Electronically signed by Sandro Cintron DO in OV> 08/01/23 1327 Authorizing ProviderResult TypeResult StatusFredric H Marcus DOIMG BI PROCEDURESFinal Result * PAP TEST, EXTERNAL (07/24/2023 12:00 AM EDT) Narrative Authorizing ProviderResult TypeResult StatusCorey Lisbeth DOLAB CYTOLOGY ORDERABLESFinal ResultPerforming OrganizationAddressCity/State/ZIP CodePhone Number EXTERNAL LAB from Last 3 Months or Most Recently Relevant to Health Maintenance Insurance Care Teams Team MemberRelationshipSpecialtyStart DateEnd Alexia Raya MD [address] [place] [phone] PCP - [facility]Waverly Health Centerly Medicine09/05/24
--- OUTSIDE RECORDS SUMMARY | 2025-04-09 19:51 | XMS_ITS | Encounter Summary ---
Author Organization [facility] Address [address] [place] [address] Care Team Providers Care General Warehouse Associate Name Role Phone Alexia Raya MD Primary Care Provider Encounter Details DateTypeDepartmentCare Team (Latest Contact Info)Injxewpjmom17/02/2025Travel Social History Tobacco UseTypesPacks/DayYears UsedDateSmoking Tobacco: DvnawiMxujbrdvtv325Vzhc: 2017Smokeless Tobacco: NeverAlcohol UseStandard Drinks/WeekCommentsNot Currently 0 [...] DateEnd Date Alexia Raya MD [address] [facility] [place] [address] PCP - GeneralFamily Medicine09/05/24documented as of this encounter
--- OUTSIDE RECORDS SUMMARY | 2025-04-09 19:51 | XMS_ITS | Clinical Summary ---
Author Organization [facility] Address [address], [address] [place] [address] Care Team Providers Care Thread Inspector Name Role Phone Alexia Raya MD Primary Care Provider [phone] Social History Tobacco UseTypesPacks/DayYears UsedDateSmoking Tobacco: Never Assessed CommentsUnknownSex and Gender InformationValueDate RecordedSex Assigned at Not on fileLegal TuuSkkimv75/08/2013 7:41 PM ESTGender IdentityNot on fileSexual OrientationNot on file Plan of Treatment Health MaintenanceDue DateLast DoneCommentsDepression Jyndvp2302/01/1976HIV screen 01/31/1979Hepatitis C kuazgh8301/31/1982DTaP/Tdap/Td vaccine (1 - Tdap)01/31/1983 Pap smear01/31/1985Cervical cancer wtclqa2701/31/1994HPV (without or with Pap) 01/31/19940201Wrxyqifqrri45/26/2009Colorectal Cancer Rsjaqv9601/31/2009FIT/FOBT: Average risk01/31/2009Fecal-DNA (Cologuard): Average risk01/31/2009 Sigmoidoscopy/CT llohwcftynul81/26/2009Pneumococcal 50+ years Vaccine (2 of 2 - PCV)Shingles vaccine (1 of 2)01/31/20142285Uexiiw04/28/2016 08/02/2010, 02/03/2010nnual Wellness Visit (Medicare Advantage)05/08/2024Flu vaccine (#1), 01/23/2017, 02/22/2016COVID-19 Vaccine ( season)/, 04/20/2021, 08/27/2020, Additional history existsBreast cancer gsjubr01603/, 08/26/2022, 08/01/2022 Respiratory Syncytial Virus (RSV) or age 60 yrs+ (1 - 1-dose 75+ series)01/31/2039Pneumococcal 0-49 years HfpwzsoHtthhhzctkpr74/22/1997Hepatitis A vaccineAged OutNo longer eligible based on [...] 9:30 AM EDT)ComponentValueRef RangeTest MethodAnalysis TimePerformed AtPathologist SzicybvmfDuroyzbfzdhzc830(H)<150 MG/DLCMHP TQLKwnewhghfud509(H)<200 MG/DLCMHP TRJEXO48(L)>60 MG/DLCMHP LABLDL Vbtatekocl87<100 MG/DLCMHP LABSpecimen (Source)Anatomical Location / LateralityCollection Method / VolumeCollection TimeReceived Time08/02/2010 9:30 AM EDT08/02/2010 10:02 AM EDT Narrative [facility] - 08/02/2010 1:13 PM EDT CALCULATED LDL IS ESTIMATED, NOT A TRUE MEASUREMENT, AND MAY NOT REFLECT ACTUAL LDL LEVEL. ?? CONSIDER ORDERING A DIRECT LDL OR LIPID PANEL WITH LDL. Performed @ [facility], [address] [place] [address] Authorizing ProviderResult TypeResult StatusLuz Griffin MDCHEMISTRY ORDERABLESFinal ResultPerforming OrganizationAddressCity/State/ZIP CodePhone Number [facility] from Last 3 Months or Most Recently Relevant to Health Maintenance Insurance Care Teams Team MemberRelationshipSpecialtyStart DateEnd Alexia Raya MD [address] [facility] [place] [phone] PCP - GeneralFamily Medicine05/25/23
--- OUTSIDE RECORDS SUMMARY | 2025-04-09 19:51 | XMS_ITS | Patient Health Record ---
Author Organization [facility] Address [address] [place] [address], [facility] [place] [address] Care Team Providers Care Leather Heel Breaster Name Role Phone Sofi Yan Primary Care Provider Unavailable Juliano Granger [phone] Allergies Allergen (clinical drug ingredient) Drug/Non Drug [...] DETAILED DIRECTIONS Oral; Duration: 84 DaysActiveCalcium ActiveVitamin Z8DgpsnqLmgflkhrtq 40 MG Capsule Delayed Release1 capsule 1/2 to 1 hour before morning meal Orally Once a dayActive Social History Section Notes: Former smoker. No alcohol use. Former smoker. No alcohol use. Encounters [facility] [address] [address], [place] [address] [facility]/24/2024 Juliano Granger Cellulitis of left foot L03.116 ; Ingrown right big toenail L60.0 and Congenital tarsal coalition Q66.[address] [address], [facility] [place] [address] 01/10/2025 Juliano Granger Onychomycosis B35.1 ; Right [...] Insured Coverage Start Date Coverage End Date [facility] and [facility] [address] [place] [address] [id number] Jorge Luis Lawself - patient is the insuredMedicaid of [address] [id number], BerniceSelf - patient is the insured Medical (General) History Medical History History ICD Code Breast Cancer DiabetesHigh CholesterolThyroid IssuesSlow Healing ProblemsSurgical History Surgery Date(Month/Year) Tubal Ligation 1984 Laproscopic Surgery 1997 Right and Left Cataract 2016 Left Retina 2019 Left Breast Lumpectomy 2023
== END 2025-04-09 19:45 | disposition home or self-care (01) ==
LOC: LAB 19:44
PROVIDERS: PCP Family Medicine; Visit Provider Physician Assistant
DX: Z01.419 Encounter for gynecological examination (general) (routine) without abnormal findings (principal)
CPT/HCPCS: 87624; 88175